=== PATIENT | female | born 1950 | race Caucasian/White ===

== ENCOUNTER 2018-01-23 15:00 | Outpatient (RCR) | payer MEDICARE, MEDICAID, SELFPAY ==
[2018-01-16 14:34] VITALS: BP 139/94; PULSE 91; RESP 22; TEMP 36.9; BMI 51.2
[2018-01-16 19:31] LABS: Hematocrit 36.4 % (37-47); Hemoglobin 11.3 g/dl (12.0-15.0); Mean Corpuscular Hgb 27.8 pg (27.0-32.0); Mean Corpuscular Volume 89.4 fL (81-99); Mean Platelet Vol. 9.4 fl (6.2-12.0); Platelet Count 215 K/mm3 (150-450); RBC Distribution Width CV 17.5 % (11.6-14.6); RBC Distribution Width SD 56.9 fl (35.1-43.9); Red Blood Count 4.07 M/mm3 (4.2-5.4); White Blood Count 7.7 K/mm3 (4.4-11.0)
[2018-01-16 19:35] LABS: Scan Indicated on CBC? Y/N NO
[2018-01-16 19:44] LABS: ALB/GLOB Ratio 0.7 RATIO (0.9-2.4); AST(SGOT) 8 U/L (15-37); Alanine Aminotransfer ALT/SGPT 14 U/L (13-56); Albumin, Serum 3.3 g/dL (3.2-5.0); Alkaline Phosphatase 98 U/L (45-117); Anion Gap 6 (5-15); BUN 18 mg/dL (7-18); BUN/Creat Ratio 17.1 RATIO (10-20); Chloride 103 mmol/L (98-107); Creatinine, Serum 1.05 mg/dL (0.55-1.02); EST Glomerular Filtration Rate 55 mL/min (>60); Est Glom Filt Rate - Afr Amer 67 mL/min (>60); Estimated Creatinine Clearance 39.43 ml/min; Globulin 4.7 g/dL (2.2-4.2); Glucose 116 mg/dL (74-106); Prealbumin 18.7 mg/dL (20.0-40.0); Sodium Level 139 mmol/L (136-145)
--- NOTE | 2018-01-16 20:40 | PCM.WC.HP ---
(1) Nonhealing ulcer of right lower extremity with fat layer exposed Status: Acute Code(s): L97.912 - Non-pressure chronic ulcer of unspecified part of right lower leg with fat layer exposed (2) Bilateral lower extremity edema Status: Acute Code(s): R60.0 - Localized edema (3) Decreased pedal pulses Status: Acute Code(s): R09.89 - Other specified symptoms and signs involving the circulatory and respiratory systems (4) Chronic stasis dermatitis of left lower extremity Status: Acute Code(s): I87.2 - Venous insufficiency (chronic) (peripheral) History of Present Illness Date of Service: 01/16/18 Chief Complaint: Nonhealing ulcer right lower extremity History of Wound: This is a 68-year-old white female with a past medical history as listed above who presents to the wound healing center today with complaints of nonhealing ulcer on the right lower extremity. She is unsure when exactly this began, however she states that she has had ulcers on her bilateral lower extremities on and off for the past 6 years and then they heal. She states that she has dry scaly and reddened skin bilaterally to the lower extremities which causes her to itch all the time and scratch open, she has had ulcerations which in the past she states has become infected. However she denies any signs of infection at this time and denies any fever, purulent exudate, or increasing pain. She does state that she has lymphedema pumps and compression stockings, however she refuses to utilize them at this time due to not thinking that are necessary. She currently resides at [facility]. She does state that she has able to ambulate, however she spends most of her time in a wheelchair. Her past medical history is significant for that of type 2 diabetes mellitus, neuropathy, PVD, rheumatoid arthritis, asthma, GERD, and depression. Past Medical History Past Medical History: Chronic Problems Renal lithiasis (Chronic) Right Peripheral neuropathy (Chronic) Obstructive sleep apnea (Chronic) Increased BMI (Chronic) Chronic back pain (Chronic) HLD (hyperlipidemia) (Chronic) Benign hypertension (Chronic) Surgical History: noncontributory, hysterectomy Allergies/Adverse Reactions: Allergies aspirin Allergy (Verified 01/16/18 15:16) Hives Penicillins Allergy (Verified 01/16/18 15:16) Hives Sulfa (Sulfonamide Antibiotics) Allergy (Verified 01/16/18 15:16) Hives Home Medications: Ambulatory Orders Medication Instructions Recorded Albuterol IH (ProAir) [Proair Hfa] 1 - 2 puff INHALATION Q4H PRN PRN 02/16/14 Fluticasone 0.05% [Flonase Nasal 2 spray NASAL DAILY 02/16/14 [place]] Fluticasone/Salmeterol [Advair 1 puff INHALATION BID 02/16/14 250/50 Mcg Diskus] Insulin Glargine [Lantus SoloStar 20 units SC QHS 02/16/14 Pen] Morphine [Morphine IR] 60 mg PO Q4H PRN PRN 02/16/14 Multivitamin with Iron 1 each PO DAILY 02/16/14 [Multivitamins with Iron] Oxybutynin [Ditropan] 5 mg PO DAILY 02/16/14 Oxycodone HCl/Acetaminophen 1 tablet PO Q4H PRN PRN 02/16/14 [Percocet 5/325] Potassium Chloride [K-Dur] 10 meq PO BID 02/16/14 Pregabalin [Lyrica] 100 mg PO TID 02/16/14 Ropinirole HCl [Requip] 0.25 mg PO QHS 02/16/14 Vit D3/Folic Acid/B2/B6/B12 1 each PO DAILY 02/16/14 [Folgard Tablet] - Family History Maternal No pertinent history Smoking Status: Never smoker Review of Systems Constitutional: Denies: Chills, Fever, Weight Change Eyes: Denies: Pain, Vision Change HEENT: Denies: Difficulty Hearing, Difficulty Swallowing, Sinus Congestion Cardiovascular: Denies: Chest Pain, Palpitations Respiratory: Denies: Cough, Shortness of Breath Gastrointestinal: Denies: Diarrhea, Nausea, Vomiting Genitourinary: Denies: Dysuria, Hematuria Skin: Reports: Wounds - See HPI Endocrine: Denies: Heat/ Cold Intolerance, Polydipsia, Polyuria Hematologic/ Lymphatic: Denies: Easy Bruising, Easy Bleeding - Physical Exam Vital Signs Temp Pulse Resp BP 98.4 F 91 22 H 139/94 H 01/16/18 14:34 01/16/18 14:34 01/16/18 14:34 01/16/18 14:34 General: Alert, Oriented x3, Cooperative, No apparent distress HEENT: PERRLA, EOMI Neck: Supple, No JVD, Negative Carotid Bruits Lungs: Clear to auscultation, Normal air movement Cardiovascular: Regular rate, Regular Rhythm, Normal S1, Normal S2 Abdomen: Bowel Sounds Present, Soft, Non Tender Extremities: Capillary Refill Less than 3 Seconds, Diminished Peripheral Pulses, Edema - Generalized bilateral lower extremity edema Skin: Ulcer/ Wound - Cluster ulcer with large amount of slough present right lower extremity, no surrounding erythema or signs of acute infection at this time. Both bilateral lower extremities have thickened dry scaly and slightly erythematous patches of skin present. Neurological: Neuro grossly intact Psych/Mental Status: Normal Affect, Alert and oriented to time, place, person, mood and affect Debridement Note Post-Debridement Measurements/Treatment WC - Nurse 2 - General Ulcer CM Notes Start: 01/16/18 14:25 Freq: Status: Active Protocol: Activity Type Activity Date Activity User E-Sign Co-Sign Detail Recorded Client Recorded Date Recorded By Document 01/16/18 15:50 [id number] 01/16/18 16:06 01/16/18 15:50 Wound Center Nurse 2 #2 R Lat Cluster -Time 15:56 -Correct Patient Yes -Correct Side, Site, Position Yes -Correct Procedure Yes -Procedure Performed Yes -Type of Procedure Debridement -Clinical Debridement Subcutaneous -Post Debridement Size (cm) - Length 5.1 -Post Debridement Size (cm) - Width 2.2 -Post Debridement Size (cm) - Depth 0.1 -Total Square Cm 11.22 -Wound/Ulcer Outcome Not Healed -Ulcer Cleansing Rinsed/ Irrigated with Saline -Foul Odor after Cleansing No -Bioengineered Tissue No -Bleeding Controlled with Pressure -Treatment Response Procedure Tolerated Well Pain Scale: 0-10 Numeric Is Patient Pain Free? Yes Wound debrided: Right lower extremity cluster ulcer Laterality: Right Type of Debridement: Excisional debridement Anesthesia Used: 5% Lidocaine Gel Depth: in the subcutaneous layer Percentage of wound debrided: 100 Instrument Used: 5mm curette Tissue Removed: Slough and devitalized tissue Severity: Fat Layer Exposed Amount of bleeding with debridement: Mild Bleeding Controlled with: Pressure Patient tolerated procedure well Assessment/Plan Assessment: See above diagnoses Plan: The patient was seen and examined at the wound center today and was updated on the plan of care. A subcutaneous debridement was performed today. The patient tolerated the procedure well. The patients wound care will consist of: Applying Aquacel silver covering with gauze daily. Double Tubigrip's for compression ordered. Instructed on the importance of using her lymphedema pumps that she has. A referral to dermatology was made as well regarding her chronic skin changes to her lower extremities. Wound cultures were collected. Baseline bloodwork ordered. Vascular studies ordered. Patient educated on the importance of diet on wound healing and instructed to increase protein and vitamin C intake. Patient educated on the importance of keeping her diabetes under control. Did discuss signs and symptoms of cellulitis that require urgent medical attention. Patient verbalized understanding. Patient verbalized understanding. Patient will follow up at wound healing center in one week or sooner if needed. This note was generated with [employer] dictation software. It may contain incorrect words, spelling, and punctuation that were not noted in checking the note before signing. Code Visit Office Visits / Consults: [id number] OV L4 New [id number]: [id number] Rachel subq tissue 20 sq cm/<
--- NOTE | 2018-01-21 09:51 | HP.PCM_ITS ---
(1) Nonhealing ulcer of right lower extremity with fat layer exposed Status: Acute Code(s): L97.912 - Non-pressure chronic ulcer of unspecified part of right lower leg with fat layer exposed (2) Bilateral lower extremity edema Status: Acute Code(s): R60.0 - Localized edema (3) Decreased pedal pulses Status: Acute Code(s): R09.89 - Other specified symptoms and signs involving the circulatory and respiratory systems (4) Chronic stasis dermatitis of left lower extremity Status: Acute Code(s): I87.2 - Venous insufficiency (chronic) (peripheral) History of Present Illness Date of Service: 01/16/18 Chief Complaint: Nonhealing ulcer right lower extremity History of Wound: This is a 68-year-old white female with a past medical history as listed above who presents to the wound healing center today with complaints of nonhealing ulcer on the right lower extremity. She is unsure when exactly this began, however she states that she has had ulcers on her bilateral lower extremities on and off for the past 6 years and then they heal. She states that she has dry scaly and reddened skin bilaterally to the lower extremities which causes her to itch all the time and scratch open, she has had ulcerations which in the past she states has become infected. However she denies any signs of infection at this time and denies any fever, purulent exudate, or increasing pain. She does state that she has lymphedema pumps and compression stockings, however she refuses to utilize them at this time due to not thinking that are necessary. She currently resides at [facility]. She does state that she has able to ambulate, however she spends most of her time in a wheelchair. Her past medical history is significant for that of type 2 diabetes mellitus, neuropathy, PVD, rheumatoid arthritis, asthma, GERD , and depression. Past Medical History Past Medical History: Chronic Problems Renal lithiasis (Chronic) Right Peripheral neuropathy (Chronic) Obstructive sleep apnea (Chronic) Increased BMI (Chronic) Chronic back pain (Chronic) HLD (hyperlipidemia) (Chronic) Benign hypertension (Chronic) Surgical History: noncontributory, hysterectomy Allergies/Adverse Reactions: Allergies aspirin Allergy (Verified 01/16/18 15:16) Hives Penicillins Allergy (Verified 01/16/18 15:16) Hives Sulfa (Sulfonamide Antibiotics) Allergy (Verified 01/16/18 15:16) Hives Home Medications: Ambulatory Orders Medication Instructions Recorded Albuterol IH (ProAir) [Proair Hfa] 1 - 2 puff INHALATION Q4H PRN PRN 02/16/14 Fluticasone 0.05% [Flonase Nasal 2 spray NASAL DAILY 02/16/14 [place]] Fluticasone/Salmeterol [Advair 1 puff INHALATION BID 02/16/14 250/50 Mcg Diskus] Insulin Glargine [Lantus SoloStar 20 units SC QHS 02/16/14 [place]] Morphine [Morphine IR] 60 mg PO Q4H PRN PRN 02/16/14 Multivitamin with Iron 1 each PO DAILY 02/16/14 [Multivitamins with Iron] Oxybutynin [Ditropan] 5 mg PO DAILY 02/16/14 Oxycodone HCl/Acetaminophen 1 tablet PO Q4H PRN PRN 02/16/14 [Percocet 5/325] Potassium Chloride [K-Dur] 10 meq PO BID 02/16/14 Pregabalin [Lyrica] 100 mg PO TID 02/16/14 Ropinirole HCl [Requip] 0.25 mg PO QHS 02/16/14 Vit D3/Folic Acid/B2/B6/B12 1 each PO DAILY 02/16/14 [Folgard Tablet] - Family History Maternal No pertinent history Smoking Status: Never smoker Review of Systems Constitutional: Denies: Chills, Fever, Weight Change Eyes: Denies: Pain, Vision Change HEENT: Denies: Difficulty Hearing, Difficulty Swallowing, Sinus Congestion Cardiovascular: Denies: Chest Pain, Palpitations Respiratory: Denies: Cough, Shortness of Breath Gastrointestinal: Denies: Diarrhea, Nausea, Vomiting Genitourinary: Denies: Dysuria, Hematuria Skin: Reports: Wounds - See HPI Endocrine: Denies: Heat/ Cold Intolerance, Polydipsia, Polyuria Hematologic/ Lymphatic: Denies: Easy Bruising, Easy Bleeding - Physical Exam Vital Signs Temp Pulse Resp BP 98.4 F 91 22 H 139/94 H 01/16/18 14:34 01/16/18 14:34 01/16/18 14:34 01/16/18 14:34 General: Alert, Oriented x3, Cooperative, No apparent distress HEENT: PERRLA, EOMI Neck: Supple, No JVD, Negative Carotid Bruits Lungs: Clear to auscultation, Normal air movement Cardiovascular: Regular rate, Regular Rhythm, Normal S1, Normal S2 Abdomen: Bowel Sounds Present, Soft, Non Tender Extremities: Capillary Refill Less than 3 Seconds, Diminished Peripheral Pulses , Edema - Generalized bilateral lower extremity edema Skin: Ulcer/ Wound - Cluster ulcer with large amount of slough present right lower extremity, no surrounding erythema or signs of acute infection at this time. Both bilateral lower extremities have thickened dry scaly and slightly erythematous patches of skin present. Neurological: Neuro grossly intact Psych/Mental Status: Normal Affect, Alert and oriented to time, place, person, mood and affect Debridement Note Post-Debridement Measurements/Treatment WC - Nurse 2 - General Ulcer CM Notes Start: 01/16/18 14:25 Freq: Status: Active Protocol: Activity Type Activity Date Activity User E-Sign Co-Sign Detail Recorded Client Recorded Date Recorded By Document 01/16/18 15:50 [id number] 01/16/18 16:06 01/16/18 15:50 Wound Center Nurse 2 #2 R Lat Cluster -Time 15:56 -Correct Patient Yes -Correct Side, Site, Position Yes -Correct Procedure Yes -Procedure Performed Yes -Type of Procedure Debridement -Clinical Debridement Subcutaneous -Post Debridement Size (cm) - Length 5.1 -Post Debridement Size (cm) - Width 2.2 -Post Debridement Size (cm) - Depth 0.1 -Total Square Cm 11.22 -Wound/Ulcer Outcome Not Healed -Ulcer Cleansing Rinsed/ Irrigated with Saline -Foul Odor after Cleansing No -Bioengineered Tissue No -Bleeding Controlled with Pressure -Treatment Response Procedure Tolerated Well Pain Scale: 0-10 Numeric Is Patient Pain Free? Yes Wound debrided: Right lower extremity cluster ulcer Laterality: Right Type of Debridement: Excisional debridement Anesthesia Used: 5% Lidocaine Gel Depth: in the subcutaneous layer Percentage of wound debrided: 100 Instrument Used: 5mm curette Tissue Removed: Slough and devitalized tissue Severity: Fat Layer Exposed Amount of bleeding with debridement: Mild Bleeding Controlled with: Pressure Patient tolerated procedure well Assessment/Plan Assessment: See above diagnoses Plan: The patient was seen and examined at the wound center today and was updated on the plan of care. A subcutaneous debridement was performed today. The patient tolerated the procedure well. The patients wound care will consist of: Applying Aquacel silver covering with gauze daily. Double Tubigrip's for compression ordered. Instructed on the importance of using her lymphedema pumps that she has. A referral to dermatology was made as well regarding her chronic skin changes to her lower extremities. Wound cultures were collected. Baseline bloodwork ordered. Vascular studies ordered. Patient educated on the importance of diet on wound healing and instructed to increase protein and vitamin C intake. Patient educated on the importance of keeping her diabetes under control. Did discuss signs and symptoms of cellulitis that require urgent medical attention. Patient verbalized understanding. Patient verbalized understanding. Patient will follow up at wound healing center in one week or sooner if needed. This note was generated with [employer] dictation software. It may contain incorrect words, spelling, and punctuation that were not noted in checking the note before signing. Code Visit Office Visits / Consults: [id number] OV L4 New [id number]: [id number] Rachel subq tissue 20 sq cm/<
== END 2018-01-25 23:59 ==
LOC: WC 15:00
PROVIDERS: Family Provider Family Medicine; PCP Family Medicine; Visit Provider Nurse Practitioner Family
DX: E11.622 Type 2 diabetes mellitus with other skin ulcer (principal); I87.2 Venous insufficiency (chronic) (peripheral); E11.42 Type 2 diabetes mellitus with diabetic polyneuropathy; L97.812 Non-pressure chronic ulcer of other part of right lower leg with fat layer exposed; R60.0 Localized edema; R09.89 Other specified symptoms and signs involving the circulatory and respiratory systems; M06.9 Rheumatoid arthritis, unspecified; K21.9 Gastro-esophageal reflux disease without esophagitis
CPT/HCPCS: 11042; 80053; 83036; 84134; 85027; 87070; 87075; 87186; 87205; 99214; G0463

== ENCOUNTER 2018-02-20 14:45 | Outpatient (RCR) | payer MEDICARE, MEDICAID, SELFPAY ==
[2018-01-26 01:15] VITALS: BP 139/94; PULSE 91; RESP 22; TEMP 36.9
--- NOTE | 2018-01-30 13:10 | VDLE_ITS ---
Reason For Study: Edema/ulcers RIGHT LEFT CFV is compressible, spontaneous, phasic, CFV is compressible, spontaneous, phasic, competent and demonstrates normal competent, and demonstrates normal augmentation. augmentation. FV is compressible, spontaneous, phasic, FV is compressible, spontaneous, phasic, competent and demonstrates normal competent and demonstrates normal augmentation. augmentation. POP V is compressible, spontaneous, phasic, POP V is compressible, spontaneous, phasic, competent and demonstrates normal competent and demonstrates normal augmentation. augmentation. T/P Trunk is compressible. T/P Trunk is compressible. PTV is compressible. PTV is compressible. SFJ is competent SFJ is INCOMPETENT GSV is competent GSV is competent SSV is competent. SSV is competent. Procedure Exam performed in department. Technically difficult due to body habitus. Phil vein not visualized. Calf veins not visualized mid/distal LLE. A preliminary report was called and/or faxed to [facility]. Interpretation Summary Deep veins of the lower extremities are bilaterally patent and compressible segmentally. There is no evidence of deep vein thrombosis on either side. Valvular competence appears intact within the proximal deep venous systems bilaterally. The greater saphenous veins appear bilaterally patent and compressible segmentally. The right sapheno-femoral junction is competent . The left sapheno- femoral junction is incompetent . Valvular competence appears to be intact segmentally within the greater saphenous veins bilaterally. Small saphenous veins are patent and competent bilaterally. The peroneal veins were not visualized on either side, and the posterior tibial veins were not well -visualized on either side. Ordering Physician: Saqib Thomas Referring Physician: Saqib Thomas Performed By: Nikky Arrieta RVT
--- NOTE | 2018-02-01 16:17 | LEAS ---
Arterial Study - Arterial Study Arterial Study: This is a 68-year-old female with a history of diabetes mellitus, hyperlipidemia, hypertension, and peripheral arterial occlusive disease. The patient presents with chronic nonhealing wounds to the right lower extremity. She is brought to the noninvasive vascular laboratory at this time for the purpose of bilateral noninvasive lower extremity arterial assessment. Doppler signal assessment was used to evaluate the pulses at ankle level bilaterally. The posterior tibial and dorsalis pedis pulses were triphasic bilaterally. Segmental limb pressures were obtained bilaterally. The right ankle pressure, as determined by posterior tibial pulse, was measured at 150 mmHg. The right ankle pressure, as determined by dorsalis pedis pulse, was measured at 149 mmHg. The right digital pressure was measured at 121 mmHg. The left ankle pressure, as determined by posterior tibial pulse, was measured at 154 mmHg. The left ankle pressure, as determined by dorsalis pedis pulse, was measured at 146 mmHg. The left digital pressure was measured at 130 mmHg. Pulse-volume recordings were obtained bilaterally and segmentally. Waveform amplitudes appeared to be satisfacory at all levels bilaterally, including low thigh, calf, ankle, and digital levels. Resting ankle-brachial indices were calculated bilaterally. The resting right ankle-brachial index was calculated to be 1.06. The resting left ankle-brachial index was calculated to be 1.08. Digital-brachial indices were calculated bilaterally. The right digital-brachial index was calculated to be 0.85. The left digital-brachial index was calculated to be 0.92. Impression: Based upon the findings of this resting noninvasive lower extremity arterial study, there is no evidence of significant atherosclerotic peripheral arterial occlusive disease in the lower extremities bilaterally. Triphasic waveforms are noted at ankle level bilaterally. Resting ankle-brachial indices were bilaterally normal. Digital-brachial indices were also normal bilaterally. In summary, this represents a normal resting noninvasive lower extremity arterial study bilaterally.
--- NOTE | 2018-02-01 16:24 | LEAS_ITS ---
Arterial Study - Arterial Study Arterial Study: This is a 68-year-old female with a history of diabetes mellitus, hyperlipidemia , hypertension, and peripheral arterial occlusive disease. The patient presents with chronic nonhealing wounds to the right lower extremity. She is brought to the noninvasive vascular laboratory at this time for the purpose of bilateral noninvasive lower extremity arterial assessment. Doppler signal assessment was used to evaluate the pulses at ankle level bilaterally. The posterior tibial and dorsalis pedis pulses were triphasic bilaterally. Segmental limb pressures were obtained bilaterally. The right ankle pressure, as determined by posterior tibial pulse, was measured at 150 mmHg. The right ankle pressure, as determined by dorsalis pedis pulse, was measured at 149 mmHg. The right digital pressure was measured at 121 mmHg. The left ankle pressure, as determined by posterior tibial pulse, was measured at 154 mmHg. The left ankle pressure, as determined by dorsalis pedis pulse, was measured at 146 mmHg. The left digital pressure was measured at 130 mmHg. Pulse-volume recordings were obtained bilaterally and segmentally. Waveform amplitudes appeared to be satisfacory at all levels bilaterally, including low thigh, calf, ankle, and digital levels. Resting ankle-brachial indices were calculated bilaterally. The resting right ankle-brachial index was calculated to be 1.06. The resting left ankle- brachial index was calculated to be 1.08. Digital-brachial indices were calculated bilaterally. The right digital- brachial index was calculated to be 0.85. The left digital-brachial index was calculated to be 0.92. Impression: Based upon the findings of this resting noninvasive lower extremity arterial study, there is no evidence of significant atherosclerotic peripheral arterial occlusive disease in the lower extremities bilaterally. Triphasic waveforms are noted at ankle level bilaterally. Resting ankle-brachial indices were bilaterally normal. Digital-brachial indices were also normal bilaterally. In summary, this represents a normal resting noninvasive lower extremity arterial study bilaterally.
[2018-02-13 14:50] VITALS: BP 117/50; PULSE 81; RESP 18; TEMP 36.4
--- NOTE | 2018-02-13 17:22 | PCM.WC.PN ---
(1) Venous insufficiency Status: Acute Current Visit: Yes Code(s): I87.2 - Venous insufficiency (chronic) (peripheral) (2) Chronic acquired lymphedema Status: Acute Current Visit: Yes Code(s): I89.0 - Lymphedema, not elsewhere classified (3) Bilateral lower extremity edema Status: Acute Current Visit: Yes Code(s): R60.0 - Localized edema (4) Chronic stasis dermatitis of left lower extremity Status: Acute Current Visit: Yes Code(s): I87.2 - Venous insufficiency (chronic) (peripheral) (5) Nonhealing ulcer of right lower extremity with fat layer exposed Status: Acute Current Visit: Yes Code(s): L97.912 - Non-pressure chronic ulcer of unspecified part of right lower leg with fat layer exposed Type of Wound Date of Service: 02/13/18 Chief Complaint: Nonhealing ulcer right lower extremity History of Wound: This is a 68-year-old white female with a past medical history as listed above who presents to the wound healing center today with complaints of nonhealing ulcer on the right lower extremity. She is unsure when exactly this began, however she states that she has had ulcers on her bilateral lower extremities on and off for the past 6 years and then they heal. She states that she has dry scaly and reddened skin bilaterally to the lower extremities which causes her to itch all the time and scratch open, she has had ulcerations which in the past she states has become infected. However she denies any signs of infection at this time and denies any fever, purulent exudate, or increasing pain. She does state that she has lymphedema pumps and compression stockings, however she refuses to utilize them at this time due to not thinking that are necessary. She currently resides at [facility]. She does state that she has able to ambulate, however she spends most of her time in a wheelchair. Her past medical history is significant for that of type 2 diabetes mellitus, neuropathy, PVD, rheumatoid arthritis, asthma, GERD, and depression. Progress of Wound: Patient has been noncompliant with her wound center appointments. Due to chronic itching that she is supposed to follow-up with both dermatology and her PCP for which she never did, there are now scattered excoriated areas on bilateral lower extremities, right lower extremity ulcer is stable without signs of infection at this time. - Physical Exam Vital Signs Temp Pulse Resp BP 97.6 F L 81 18 117/50 L 02/13/18 14:50 02/13/18 14:50 02/13/18 14:50 02/13/18 14:50 General: Alert, Oriented x3, Cooperative, No apparent distress HEENT: Atraumatic Lungs: Clear to auscultation Cardiovascular: Regular rate Extremities: Edema - 1+ bilateral lower extremity edema, Peripheral Pulses Normal Skin: Ulcer/ Wound - Right lower extremity lateral ulcer with adherent slough, - - Bilateral lower extremities with hyperkeratotic areas of dermatitis, left worse than right, multiple areas of excoriation with visible scratch whitfield present bilateral lower extremities Wound Measurements and Assessment WC - Nurse 1 - General Ulcer Measurement Start: 02/07/18 12:24 Freq: Status: Active Protocol: Activity Type Activity Date Activity User E-Sign Co-Sign Detail Recorded Client Recorded Date Recorded By Document 02/13/18 14:50 DL [id number] 02/13/18 14:57 DL 02/13/18 14:50 Wound Center Nurse 1 [Ulcer Assessment] #2 R Lat Cluster -Current Size (cm) - Length 0.5 -Current Size (cm) - Width 0.5 -Current Size (cm) - Depth 0.1 -Total Square Cm 0.25 -Photo Taken No -Exudate Amt None Present (0 %) -Exudate Type Serosanguineous -Wound Margin Flat & Intact -Granulation Amt Small (1-33%) -Granulation Quality [place] -Necrosis Amt None Present (0 %) -Structure Exposed N/A -Texture (Beatris-wound Skin Appearance) Scarring -Moisture (Beatris-wound Skin Appearance Dry/Scaly ) -Color (Beatris-wound Skin Appearance) Hemosiderin Staining -Temperature (Beatris-wound Skin No Abnormality Appearance) (Pt Warm) -Tenderness on Palpation (Beatris-wound No Skin Appearance) -Ulcer Cleansing Rinsed/ Irrigated with Saline -Foul Odor after Cleansing No -Anesthetic Used 4% Lidocaine Solution [Edema Assessment] -Right Calf (cm) 46.3 -Right Ankle (cm) 24 -Left Calf (cm) 50.5 -Left Ankle (cm) 25.5 WC - Nurse 2 - General Ulcer CM Notes Start: 02/07/18 12:24 Freq: Status: Active Protocol: Activity Type Activity Date Activity User E-Sign Co-Sign Detail Recorded Client Recorded Date Recorded By Document 02/13/18 15:30 [id number] 02/13/18 15:32 02/13/18 15:30 Wound Center Nurse 2 [Procedure/Treatment] #2 R Lat Cluster -Time 15:31 -Correct Patient Yes -Correct Side, Site, Position Yes -Correct Procedure Yes -Procedure Performed Yes -Type of Procedure Debridement -Clinical Debridement Subcutaneous -Post Debridement Size (cm) - Length 1.9 -Post Debridement Size (cm) - Width 1.3 -Post Debridement Size (cm) - Depth 0.1 -Total Square Cm 2.47 -Wound/Ulcer Outcome Not Healed -Ulcer Cleansing Rinsed/ Irrigated with Saline -Foul Odor after Cleansing No -Bioengineered Tissue No -Topical Lidocaine (%) 4 -Lidocaine (ml) 10 -Bleeding Controlled with NA -Treatment Response Procedure Tolerated Well [See Physician Procedure note for Specifics] Pain Scale: 0-10 Numeric [Pain] -Is Patient Pain Free? Yes Neurological: Neuro grossly intact Psych/Mental Status: Normal Affect, Appropriate, Alert and oriented to time, place, person, mood and affect Debridement Note Post-Debridement Measurements/Treatment WC - Nurse 2 - General Ulcer CM Notes Start: 02/07/18 12:24 Freq: Status: Active Protocol: Activity Type Activity Date Activity User E-Sign Co-Sign Detail Recorded Client Recorded Date Recorded By Document 02/13/18 15:30 [id number] 02/13/18 15:32 02/13/18 15:30 Wound Center Nurse 2 #2 R Lat Cluster -Time 15:31 -Correct Patient Yes -Correct Side, Site, Position Yes -Correct Procedure Yes -Procedure Performed Yes -Type of Procedure Debridement -Clinical Debridement Subcutaneous -Post Debridement Size (cm) - Length 1.9 -Post Debridement Size (cm) - Width 1.3 -Post Debridement Size (cm) - Depth 0.1 -Total Square Cm 2.47 -Wound/Ulcer Outcome Not Healed -Ulcer Cleansing Rinsed/ Irrigated with Saline -Foul Odor after Cleansing No -Bioengineered Tissue No -Topical Lidocaine (%) 4 -Lidocaine (ml) 10 -Bleeding Controlled with NA -Treatment Response Procedure Tolerated Well Pain Scale: 0-10 Numeric Is Patient Pain Free? Yes Wound debrided: Right lower extremity ulcer Laterality: Right Type of Debridement: Excisional debridement Anesthesia Used: 5% Lidocaine Gel Depth: Down to and including healthy tissue, in the subcutaneous layer Percentage of wound debrided: 100 Instrument Used: 5mm curette Tissue Removed: Slough and devitalized tissue Severity: Fat Layer Exposed Amount of bleeding with debridement: Mild Bleeding Controlled with: Pressure Patient tolerated procedure well Assessment/Plan Active Problems Nonhealing ulcer of right lower extremity with fat layer exposed (Acute) Bilateral lower extremity edema (Acute) Chronic stasis dermatitis of left lower extremity (Acute) Venous insufficiency (Acute) Chronic acquired lymphedema (Acute) Assessment: See above diagnoses Plan: The patient was seen and examined at the wound center today and was updated on the plan of care. A subcutaneous debridement was performed today. The patient tolerated the procedure well. The patients wound care will consist of: Applying bilateral Unna boots. Instructed on the importance of using her lymphedema pumps that she is noncompliant with. A referral to dermatology was made as well regarding her chronic skin changes to her lower extremities. And discuss following up with PCP for her chronic itching. Wound cultures were collected previously and demonstrated staph aureus, however patient never followed up and therefore was not treated appropriately with antibiotics, an antibiotic prescription was called in during this appointment of doxycycline 100 mg twice daily ?10 days. Baseline bloodwork ordered and A1c was 7 and prealbumin was low and encourage patient to increase her protein drinks. Vascular studies ordered and demonstrated venous insufficiency with right TINO of 1.08 and left TINO 1.06.. Patient educated on the importance of diet on wound healing and instructed to increase protein and vitamin C intake. Patient educated on the importance of keeping her diabetes under control. Did discuss signs and symptoms of cellulitis that require urgent medical attention. Patient verbalized understanding. Patient verbalized understanding. Patient will follow up at wound healing center in one week or sooner if needed. This note was generated with [employer] software. It may contain incorrect words, spelling, and punctuation that were not noted in checking the note before signing.
--- NOTE | 2018-02-13 17:31 | PN.PCM_ITS ---
(1) Venous insufficiency Status: Acute Current Visit: Yes Code(s): I87.2 - Venous insufficiency ( chronic) (peripheral) (2) Chronic acquired lymphedema Status: Acute Current Visit: Yes Code(s): I89.0 - Lymphedema, not elsewhere classified (3) Bilateral lower extremity edema Status: Acute Current Visit: Yes Code(s): R60.0 - Localized edema (4) Chronic stasis dermatitis of left lower extremity Status: Acute Current Visit: Yes Code(s): I87.2 - Venous insufficiency ( chronic) (peripheral) (5) Nonhealing ulcer of right lower extremity with fat layer exposed Status: Acute Current Visit: Yes Code(s): L97.912 - Non-pressure chronic ulcer of unspecified part of right lower leg with fat layer exposed Type of Wound Date of Service: 02/13/18 Chief Complaint: Nonhealing ulcer right lower extremity History of Wound: This is a 68-year-old white female with a past medical history as listed above who presents to the wound healing center today with complaints of nonhealing ulcer on the right lower extremity. She is unsure when exactly this began, however she states that she has had ulcers on her bilateral lower extremities on and off for the past 6 years and then they heal. She states that she has dry scaly and reddened skin bilaterally to the lower extremities which causes her to itch all the time and scratch open, she has had ulcerations which in the past she states has become infected. However she denies any signs of infection at this time and denies any fever, purulent exudate, or increasing pain. She does state that she has lymphedema pumps and compression stockings, however she refuses to utilize them at this time due to not thinking that are necessary. She currently resides at [facility]. She does state that she has able to ambulate, however she spends most of her time in a wheelchair. Her past medical history is significant for that of type 2 diabetes mellitus, neuropathy, PVD, rheumatoid arthritis, asthma, GERD , and depression. Progress of Wound: Patient has been noncompliant with her wound center appointments. Due to chronic itching that she is supposed to follow-up with both dermatology and her PCP for which she never did, there are now scattered excoriated areas on bilateral lower extremities, right lower extremity ulcer is stable without signs of infection at this time. - Physical Exam Vital Signs Temp Pulse Resp BP 97.6 F L 81 18 117/50 L 02/13/18 14:50 02/13/18 14:50 02/13/18 14:50 02/13/18 14:50 General: Alert, Oriented x3, Cooperative, No apparent distress HEENT: Atraumatic Lungs: Clear to auscultation Cardiovascular: Regular rate Extremities: Edema - 1+ bilateral lower extremity edema, Peripheral Pulses Normal Skin: Ulcer/ Wound - Right lower extremity lateral ulcer with adherent slough, - - Bilateral lower extremities with hyperkeratotic areas of dermatitis, left worse than right, multiple areas of excoriation with visible scratch whitfield present bilateral lower extremities Wound Measurements and Assessment WC - Nurse 1 - General Ulcer Measurement Start: 02/07/18 12:24 Freq: Status: Active Protocol: Activity Type Activity Date Activity User E-Sign Co-Sign Detail Recorded Client Recorded Date Recorded By Document 02/13/18 14:50 DL [id number] 02/13/18 14:57 DL 02/13/18 14:50 Wound Center Nurse 1 [Ulcer Assessment] #2 R Lat Cluster -Current Size (cm) - Length 0.5 -Current Size (cm) - Width 0.5 -Current Size (cm) - Depth 0.1 -Total Square Cm 0.25 -Photo Taken No -Exudate Amt None Present (0 %) -Exudate Type Serosanguineous -Wound Margin Flat & Intact -Granulation Amt Small (1-33%) -Granulation Quality [place] -Necrosis Amt None Present (0 %) -Structure Exposed N/A -Texture (Beatris-wound Skin Appearance) Scarring -Moisture (Beatris-wound Skin Appearance Dry/Scaly ) -Color (Beatris-wound Skin Appearance) Hemosiderin Staining -Temperature (Beatris-wound Skin No Abnormality Appearance) (Pt Warm) -Tenderness on Palpation (Beatris-wound No Skin Appearance) -Ulcer Cleansing Rinsed/ Irrigated with Saline -Foul Odor after Cleansing No -Anesthetic Used 4% Lidocaine Solution [Edema Assessment] -Right Calf (cm) 46.3 -Right Ankle (cm) 24 -Left Calf (cm) 50.5 -Left Ankle (cm) 25.5 WC - Nurse 2 - General Ulcer CM Notes Start: 02/07/18 12:24 Freq: Status: Active Protocol: Activity Type Activity Date Activity User E-Sign Co-Sign Detail Recorded Client Recorded Date Recorded By Document 02/13/18 15:30 [id number] 02/13/18 15:32 02/13/18 15:30 Wound Center Nurse 2 [Procedure/Treatment] #2 R Lat Cluster -Time 15:31 -Correct Patient Yes -Correct Side, Site, Position Yes -Correct Procedure Yes -Procedure Performed Yes -Type of Procedure Debridement -Clinical Debridement Subcutaneous -Post Debridement Size (cm) - Length 1.9 -Post Debridement Size (cm) - Width 1.3 -Post Debridement Size (cm) - Depth 0.1 -Total Square Cm 2.47 -Wound/Ulcer Outcome Not Healed -Ulcer Cleansing Rinsed/ Irrigated with Saline -Foul Odor after Cleansing No -Bioengineered Tissue No -Topical Lidocaine (%) 4 -Lidocaine (ml) 10 -Bleeding Controlled with NA -Treatment Response Procedure Tolerated Well [See Physician Procedure note for Specifics] Pain Scale: 0-10 Numeric [Pain] -Is Patient Pain Free? Yes Neurological: Neuro grossly intact Psych/Mental Status: Normal Affect, Appropriate, Alert and oriented to time, place, person, mood and affect Debridement Note Post-Debridement Measurements/Treatment WC - Nurse 2 - General Ulcer CM Notes Start: 02/07/18 12:24 Freq: Status: Active Protocol: Activity Type Activity Date Activity User E-Sign Co-Sign Detail Recorded Client Recorded Date Recorded By Document 02/13/18 15:30 [id number] 02/13/18 15:32 02/13/18 15:30 Wound Center Nurse 2 #2 R Lat Cluster -Time 15:31 -Correct Patient Yes -Correct Side, Site, Position Yes -Correct Procedure Yes -Procedure Performed Yes -Type of Procedure Debridement -Clinical Debridement Subcutaneous -Post Debridement Size (cm) - Length 1.9 -Post Debridement Size (cm) - Width 1.3 -Post Debridement Size (cm) - Depth 0.1 -Total Square Cm 2.47 -Wound/Ulcer Outcome Not Healed -Ulcer Cleansing Rinsed/ Irrigated with Saline -Foul Odor after Cleansing No -Bioengineered Tissue No -Topical Lidocaine (%) 4 -Lidocaine (ml) 10 -Bleeding Controlled with NA -Treatment Response Procedure Tolerated Well Pain Scale: 0-10 Numeric Is Patient Pain Free? Yes Wound debrided: Right lower extremity ulcer Laterality: Right Type of Debridement: Excisional debridement Anesthesia Used: 5% Lidocaine Gel Depth: Down to and including healthy tissue, in the subcutaneous layer Percentage of wound debrided: 100 Instrument Used: 5mm curette Tissue Removed: Slough and devitalized tissue Severity: Fat Layer Exposed Amount of bleeding with debridement: Mild Bleeding Controlled with: Pressure Patient tolerated procedure well Assessment/Plan Active Problems Nonhealing ulcer of right lower extremity with fat layer exposed (Acute) Bilateral lower extremity edema (Acute) Chronic stasis dermatitis of left lower extremity (Acute) Venous insufficiency (Acute) Chronic acquired lymphedema (Acute) Assessment: See above diagnoses Plan: The patient was seen and examined at the wound center today and was updated on the plan of care. A subcutaneous debridement was performed today. The patient tolerated the procedure well. The patients wound care will consist of: Applying bilateral Unna boots. Instructed on the importance of using her lymphedema pumps that she is noncompliant with. A referral to dermatology was made as well regarding her chronic skin changes to her lower extremities. And discuss following up with PCP for her chronic itching. Wound cultures were collected previously and demonstrated staph aureus, however patient never followed up and therefore was not treated appropriately with antibiotics, an antibiotic prescription was called in during this appointment of doxycycline 100 mg twice daily ?10 days. Baseline bloodwork ordered and A1c was 7 and prealbumin was low and encourage patient to increase her protein drinks. Vascular studies ordered and demonstrated venous insufficiency with right TINO of 1.08 and left TINO 1.06.. Patient educated on the importance of diet on wound healing and instructed to increase protein and vitamin C intake. Patient educated on the importance of keeping her diabetes under control. Did discuss signs and symptoms of cellulitis that require urgent medical attention. Patient verbalized understanding. Patient verbalized understanding. Patient will follow up at wound healing center in one week or sooner if needed. This note was generated with [employer] software. It may contain incorrect words, spelling, and punctuation that were not noted in checking the note before signing.
[2018-02-17 13:13] VITALS: BP 122/50; PULSE 78; RESP 16; TEMP 36.4
[2018-02-20 15:02] VITALS: BP 149/71; PULSE 79; RESP 22; TEMP 36.3
--- NOTE | 2018-02-25 09:45 | PCM.WC.PN ---
(1) Venous insufficiency Status: Acute Current Visit: Yes Code(s): I87.2 - Venous insufficiency (chronic) (peripheral) (2) Chronic acquired lymphedema Status: Acute Current Visit: Yes Code(s): I89.0 - Lymphedema, not elsewhere classified (3) Bilateral lower extremity edema Status: Acute Current Visit: Yes Code(s): R60.0 - Localized edema (4) Chronic stasis dermatitis of left lower extremity Status: Acute Current Visit: Yes Code(s): I87.2 - Venous insufficiency (chronic) (peripheral) (5) Nonhealing ulcer of right lower extremity with fat layer exposed Status: Acute Current Visit: Yes Code(s): L97.912 - Non-pressure chronic ulcer of unspecified part of right lower leg with fat layer exposed Type of Wound Date of Service: 02/20/18 Chief Complaint: Nonhealing ulcer right lower extremity History of Wound: This is a 68-year-old white female with a past medical history as listed above who presents to the wound healing center today with complaints of nonhealing ulcer on the right lower extremity. She is unsure when exactly this began, however she states that she has had ulcers on her bilateral lower extremities on and off for the past 6 years and then they heal. She states that she has dry scaly and reddened skin bilaterally to the lower extremities which causes her to itch all the time and scratch open, she has had ulcerations which in the past she states has become infected. However she denies any signs of infection at this time and denies any fever, purulent exudate, or increasing pain. She does state that she has lymphedema pumps and compression stockings, however she refuses to utilize them at this time due to not thinking that are necessary. She currently resides at [facility]. She does state that she has able to ambulate, however she spends most of her time in a wheelchair. Her past medical history is significant for that of type 2 diabetes mellitus, neuropathy, PVD, rheumatoid arthritis, asthma, GERD, and depression. Progress of Wound: Patient's multiple excoriations on her bilateral lower extremities have improved since the use of the Unna boots, her right lower extremity ulcer is now healed. There is no clinical swelling at this time. She was also treated with doxycycline and is tolerating the antibiotic well. Pending dermatology appointment. Rough patches of skin on the left lower extremity the Unna boots as well. Denies any signs of systemic infection at this time. The patient otherwise denies any fever, chills, nausea, vomiting, shortness of breath, chest pain or pressure, palpitations, orthopnea, lower extremity edema, syncope or presyncopal episodes. - Physical Exam Vital Signs Temp Pulse Resp BP 97.4 F L 79 22 H 149/71 H 02/20/18 15:02 02/20/18 15:02 02/20/18 15:02 02/20/18 15:02 General: Alert, Oriented x3, Cooperative, No apparent distress HEENT: Atraumatic Lungs: Clear to auscultation, Normal air movement Cardiovascular: Regular rate, Regular Rhythm Abdomen: Bowel Sounds Present, Obese Extremities: No edema, Peripheral Pulses Normal Skin: Excoriated - Multiple areas of excoriation bilateral lower extremities, improving compared to last week, no signs of infection, right lower extremity ulcer has healed as well Neurological: Neuro grossly intact Psych/Mental Status: Normal Affect, Appropriate, Alert and oriented to time, place, person, mood and affect Debridement Note Post-Debridement Measurements/Treatment WC - Nurse 2 - General Ulcer CM Notes Start: 02/07/18 12:24 Freq: Status: Active Protocol: Activity Type Activity Date Activity User E-Sign Co-Sign Detail Recorded Client Recorded Date Recorded By Document 02/13/18 15:30 [id number] 02/13/18 15:32 Document 02/20/18 15:41 [id number] 02/20/18 15:41 02/13/18 02/20/18 15:30 15:41 Wound Center Nurse 2 #2 R Lat Cluster -Time 15:31 -Correct Patient Yes -Correct Side, Site, Position Yes -Correct Procedure Yes -Procedure Performed Yes -Type of Procedure Debridement -Clinical Debridement Subcutaneous -Post Debridement Size (cm) - Length 1.9 -Post Debridement Size (cm) - Width 1.3 -Post Debridement Size (cm) - Depth 0.1 -Total Square Cm 2.47 -Wound/Ulcer Outcome Not Healed -Ulcer Cleansing Rinsed/ Irrigated with Saline -Foul Odor after Cleansing No -Bioengineered Tissue No -Topical Lidocaine (%) 4 -Lidocaine (ml) 10 -Bleeding Controlled with NA -Treatment Response Procedure Tolerated Well Pain Scale: 0-10 Numeric Is Patient Pain Free? Yes Yes No debridement was completed today Assessment/Plan Active Problems Nonhealing ulcer of right lower extremity with fat layer exposed (Acute) Bilateral lower extremity edema (Acute) Chronic stasis dermatitis of left lower extremity (Acute) Venous insufficiency (Acute) Chronic acquired lymphedema (Acute) Assessment: See above diagnoses Plan: The patient was seen and examined at the wound center today and was updated on the plan of care. A subcutaneous debridement was not performed today as there is no indication. The patients wound care will consist of: Applying bilateral Unna boots. Instructed on the importance of using her lymphedema pumps that she is noncompliant with at least 3 times per day after we are done with the Unna boots. A referral to dermatology was made as well regarding her chronic skin changes to her lower extremities. And discuss following up with PCP for her chronic itching. Wound cultures were collected previously and demonstrated staph aureus, however patient never followed up and therefore was not treated appropriately with antibiotics, an antibiotic prescription was called in during this appointment of doxycycline 100 mg twice daily ?10 days, patient is tolerating well. Baseline bloodwork ordered and A1c was 7 and prealbumin was low and encourage patient to increase her protein drinks. Vascular studies ordered and demonstrated venous insufficiency with right TINO of 1.08 and left TINO 1.06.. Patient educated on the importance of diet on wound healing and instructed to increase protein and vitamin C intake. Patient educated on the importance of keeping her diabetes under control. Did discuss signs and symptoms of cellulitis that require urgent medical attention. Patient verbalized understanding. Patient verbalized understanding. Patient will follow up at wound healing center in one week or sooner if needed and a nurse visit in 4 days to change Unna boots. This note was generated with [employer] dictation software. It may contain incorrect words, spelling, and punctuation that were not noted in checking the note before signing. Code Visit Office Visits / Consults: [id number] OV L3 Est
--- NOTE | 2018-02-25 09:50 | PN.PCM_ITS ---
(1) Venous insufficiency Status: Acute Current Visit: Yes Code(s): I87.2 - Venous insufficiency ( chronic) (peripheral) (2) Chronic acquired lymphedema Status: Acute Current Visit: Yes Code(s): I89.0 - Lymphedema, not elsewhere classified (3) Bilateral lower extremity edema Status: Acute Current Visit: Yes Code(s): R60.0 - Localized edema (4) Chronic stasis dermatitis of left lower extremity Status: Acute Current Visit: Yes Code(s): I87.2 - Venous insufficiency ( chronic) (peripheral) (5) Nonhealing ulcer of right lower extremity with fat layer exposed Status: Acute Current Visit: Yes Code(s): L97.912 - Non-pressure chronic ulcer of unspecified part of right lower leg with fat layer exposed Type of Wound Date of Service: 02/20/18 Chief Complaint: Nonhealing ulcer right lower extremity History of Wound: This is a 68-year-old white female with a past medical history as listed above who presents to the wound healing center today with complaints of nonhealing ulcer on the right lower extremity. She is unsure when exactly this began, however she states that she has had ulcers on her bilateral lower extremities on and off for the past 6 years and then they heal. She states that she has dry scaly and reddened skin bilaterally to the lower extremities which causes her to itch all the time and scratch open, she has had ulcerations which in the past she states has become infected. However she denies any signs of infection at this time and denies any fever, purulent exudate, or increasing pain. She does state that she has lymphedema pumps and compression stockings, however she refuses to utilize them at this time due to not thinking that are necessary. She currently resides at [facility]. She does state that she has able to ambulate, however she spends most of her time in a wheelchair. Her past medical history is significant for that of type 2 diabetes mellitus, neuropathy, PVD, rheumatoid arthritis, asthma, GERD , and depression. Progress of Wound: Patient's multiple excoriations on her bilateral lower extremities have improved since the use of the Unna boots, her right lower extremity ulcer is now healed. There is no clinical swelling at this time. She was also treated with doxycycline and is tolerating the antibiotic well. Pending dermatology appointment. Rough patches of skin on the left lower extremity the Unna boots as well. Denies any signs of systemic infection at this time. The patient otherwise denies any fever, chills, nausea, vomiting, shortness of breath, chest pain or pressure, palpitations, orthopnea, lower extremity edema, syncope or presyncopal episodes. - Physical Exam Vital Signs Temp Pulse Resp BP 97.4 F L 79 22 H 149/71 H 02/20/18 15:02 02/20/18 15:02 02/20/18 15:02 02/20/18 15:02 General: Alert, Oriented x3, Cooperative, No apparent distress HEENT: Atraumatic Lungs: Clear to auscultation, Normal air movement Cardiovascular: Regular rate, Regular Rhythm Abdomen: Bowel Sounds Present, Obese Extremities: No edema, Peripheral Pulses Normal Skin: Excoriated - Multiple areas of excoriation bilateral lower extremities, improving compared to last week, no signs of infection, right lower extremity ulcer has healed as well Neurological: Neuro grossly intact Psych/Mental Status: Normal Affect, Appropriate, Alert and oriented to time, place, person, mood and affect Debridement Note Post-Debridement Measurements/Treatment WC - Nurse 2 - General Ulcer CM Notes Start: 02/07/18 12:24 Freq: Status: Active Protocol: Activity Type Activity Date Activity User E-Sign Co-Sign Detail Recorded Client Recorded Date Recorded By Document 02/13/18 15:30 [id number] 02/13/18 15:32 Document 02/20/18 15:41 [id number] 02/20/18 15:41 02/13/18 02/20/18 15:30 15:41 Wound Center Nurse 2 #2 R Lat Cluster -Time 15:31 -Correct Patient Yes -Correct Side, Site, Position Yes -Correct Procedure Yes -Procedure Performed Yes -Type of Procedure Debridement -Clinical Debridement Subcutaneous -Post Debridement Size (cm) - Length 1.9 -Post Debridement Size (cm) - Width 1.3 -Post Debridement Size (cm) - Depth 0.1 -Total Square Cm 2.47 -Wound/Ulcer Outcome Not Healed -Ulcer Cleansing Rinsed/ Irrigated with Saline -Foul Odor after Cleansing No -Bioengineered Tissue No -Topical Lidocaine (%) 4 -Lidocaine (ml) 10 -Bleeding Controlled with NA -Treatment Response Procedure Tolerated Well Pain Scale: 0-10 Numeric Is Patient Pain Free? Yes Yes No debridement was completed today Assessment/Plan Active Problems Nonhealing ulcer of right lower extremity with fat layer exposed (Acute) Bilateral lower extremity edema (Acute) Chronic stasis dermatitis of left lower extremity (Acute) Venous insufficiency (Acute) Chronic acquired lymphedema (Acute) Assessment: See above diagnoses Plan: The patient was seen and examined at the wound center today and was updated on the plan of care. A subcutaneous debridement was not performed today as there is no indication. The patients wound care will consist of: Applying bilateral Unna boots. Instructed on the importance of using her lymphedema pumps that she is noncompliant with at least 3 times per day after we are done with the Unna boots. A referral to dermatology was made as well regarding her chronic skin changes to her lower extremities. And discuss following up with PCP for her chronic itching. Wound cultures were collected previously and demonstrated staph aureus, however patient never followed up and therefore was not treated appropriately with antibiotics, an antibiotic prescription was called in during this appointment of doxycycline 100 mg twice daily ?10 days, patient is tolerating well. Baseline bloodwork ordered and A1c was 7 and prealbumin was low and encourage patient to increase her protein drinks. Vascular studies ordered and demonstrated venous insufficiency with right TINO of 1.08 and left TINO 1.06.. Patient educated on the importance of diet on wound healing and instructed to increase protein and vitamin C intake. Patient educated on the importance of keeping her diabetes under control. Did discuss signs and symptoms of cellulitis that require urgent medical attention. Patient verbalized understanding. Patient verbalized understanding. Patient will follow up at wound healing center in one week or sooner if needed and a nurse visit in 4 days to change Unna boots. This note was generated with [employer] dictation software. It may contain incorrect words, spelling, and punctuation that were not noted in checking the note before signing. Code Visit Office Visits / Consults: [id number] OV L3 Est
== END 2018-02-25 23:59 ==
LOC: WC 14:45
PROVIDERS: Family Provider Family Medicine; PCP Family Medicine; Visit Provider Nurse Practitioner Family
DX: E11.622 Type 2 diabetes mellitus with other skin ulcer (principal); I87.2 Venous insufficiency (chronic) (peripheral); R60.0 Localized edema; I89.0 Lymphedema, not elsewhere classified; L97.812 Non-pressure chronic ulcer of other part of right lower leg with fat layer exposed; E11.40 Type 2 diabetes mellitus with diabetic neuropathy, unspecified; E11.51 Type 2 diabetes mellitus with diabetic peripheral angiopathy without gangrene; M06.9 Rheumatoid arthritis, unspecified; K21.9 Gastro-esophageal reflux disease without esophagitis; J45.909 Unspecified asthma, uncomplicated; Z91.19 Patient's noncompliance with other medical treatment and regimen
CPT/HCPCS: 11042; 29580; 93923; 93970; 99212; G0463

== ENCOUNTER 2018-02-27 13:57 | Outpatient (RCR) | payer MEDICARE, MEDICAID, SELFPAY ==
[2018-02-26 01:10] VITALS: BP 149/71; PULSE 79; RESP 22; TEMP 36.3
[2018-02-27 14:38] VITALS: BP 137/75; PULSE 80; RESP 18; TEMP 36.4
--- NOTE | 2018-02-27 16:04 | PCM.WC.PN ---
(1) Bilateral lower extremity edema Status: Acute Current Visit: Yes Code(s): R60.0 - Localized edema (2) Chronic acquired lymphedema Status: Acute Current Visit: Yes Code(s): I89.0 - Lymphedema, not elsewhere classified (3) Chronic stasis dermatitis of left lower extremity Status: Acute Current Visit: Yes Code(s): I87.2 - Venous insufficiency (chronic) (peripheral) (4) Nonhealing ulcer of right lower extremity with fat layer exposed Status: Acute Current Visit: Yes Code(s): L97.912 - Non-pressure chronic ulcer of unspecified part of right lower leg with fat layer exposed Type of Wound Date of Service: 02/27/18 Chief Complaint: Nonhealing ulcer right lower extremity History of Wound: This is a 68-year-old white female with a past medical history as listed above who presents to the wound healing center today with complaints of nonhealing ulcer on the right lower extremity. She is unsure when exactly this began, however she states that she has had ulcers on her bilateral lower extremities on and off for the past 6 years and then they heal. She states that she has dry scaly and reddened skin bilaterally to the lower extremities which causes her to itch all the time and scratch open, she has had ulcerations which in the past she states has become infected. However she denies any signs of infection at this time and denies any fever, purulent exudate, or increasing pain. She does state that she has lymphedema pumps and compression stockings, however she refuses to utilize them at this time due to not thinking that are necessary. She currently resides at [facility]. She does state that she has able to ambulate, however she spends most of her time in a wheelchair. Her past medical history is significant for that of type 2 diabetes mellitus, neuropathy, PVD, rheumatoid arthritis, asthma, GERD, and depression. Progress of Wound: Patient's multiple excoriations on her bilateral lower extremities have improved since the use of the Unna boots, her right lower extremity ulcer is healed. There is no clinical swelling at this time. She was also treated with doxycycline and tolerated the antibiotic well for staph. Pending dermatology appointment for Rough raised patches of skin on the left lower extremity. Denies any signs of systemic infection at this time. The patient otherwise denies any fever, chills, nausea, vomiting, shortness of breath, chest pain or pressure, palpitations, orthopnea, lower extremity edema, syncope or presyncopal episodes. - Physical Exam Vital Signs Temp Pulse Resp BP 97.6 F L 80 18 137/75 H 02/27/18 14:38 02/27/18 14:38 02/27/18 14:38 02/27/18 14:38 General: Alert, Oriented x3, Cooperative, No apparent distress HEENT: Atraumatic Lungs: Clear to auscultation, Normal air movement, No rhonchi, No wheeze, No rales Cardiovascular: Regular rate, Regular Rhythm Abdomen: Soft, Non Tender, Obese Extremities: No clubbing, No cyanosis, No edema, Capillary Refill Less than 3 Seconds Skin: No rashes, No breakdown, - - raised rough patches present LLE without signs of infection, visible scratch whitfield noted Wound Measurements and Assessment WC - Nurse 1 - General Ulcer Measurement Start: 02/27/18 14:28 Freq: Status: Active Protocol: Activity Type Activity Date Activity User E-Sign Co-Sign Detail Recorded Client Recorded Date Recorded By Document 02/27/18 14:38 DL [id number] 02/27/18 14:43 DL 02/27/18 14:38 Wound Center Nurse 1 [Edema Assessment] -Right Calf (cm) 45.2 -Right Ankle (cm) 23 -Left Calf (cm) 46.4 -Left Ankle (cm) 23.5 Neurological: Cranial nerves II-XII grossly intact, Neuro grossly intact Psych/Mental Status: Normal Affect, Appropriate, Alert and oriented to time, place, person, mood and affect Debridement Note No debridement was completed today Assessment/Plan Active Problems Nonhealing ulcer of right lower extremity with fat layer exposed (Acute) Bilateral lower extremity edema (Acute) Chronic stasis dermatitis of left lower extremity (Acute) Chronic acquired lymphedema (Acute) Assessment: See above diagnoses Plan: The patient was seen and examined at the wound center today and was updated on the plan of care. The patients wounds and lymphedema has resolved. Instructed on the importance of using her lymphedema pumps that she is noncompliant with at least 3 times per day. Instructed to use Eucerin to BLLE to reduce skin dryness. A referral to dermatology was made as well regarding her chronic skin changes to her lower extremities and is scheduled on 03/03/[address] barreto. Pt to discuss following up with PCP for her chronic itching. Vascular studies ordered and demonstrated venous insufficiency with right TINO of 1.08 and left TINO 1.06.. Patient educated on the importance of diet on wound healing and instructed to increase protein and vitamin C intake. Patient educated on the importance of keeping her diabetes under control. Did discuss signs and symptoms of cellulitis that require urgent medical attention. Patient verbalized understanding. Patient will be discharged from [facility] and f/u PRN.This note was generated with [employer] dictation software. It may contain incorrect words, spelling, and punctuation that were not noted in checking the note before signing. Code Visit Office Visits / Consults: [id number] OV L3 Est
--- NOTE | 2018-02-27 16:09 | PN.PCM_ITS ---
(1) Bilateral lower extremity edema Status: Acute Current Visit: Yes Code(s): R60.0 - Localized edema (2) Chronic acquired lymphedema Status: Acute Current Visit: Yes Code(s): I89.0 - Lymphedema, not elsewhere classified (3) Chronic stasis dermatitis of left lower extremity Status: Acute Current Visit: Yes Code(s): I87.2 - Venous insufficiency ( chronic) (peripheral) (4) Nonhealing ulcer of right lower extremity with fat layer exposed Status: Acute Current Visit: Yes Code(s): L97.912 - Non-pressure chronic ulcer of unspecified part of right lower leg with fat layer exposed Type of Wound Date of Service: 02/27/18 Chief Complaint: Nonhealing ulcer right lower extremity History of Wound: This is a 68-year-old white female with a past medical history as listed above who presents to the wound healing center today with complaints of nonhealing ulcer on the right lower extremity. She is unsure when exactly this began, however she states that she has had ulcers on her bilateral lower extremities on and off for the past 6 years and then they heal. She states that she has dry scaly and reddened skin bilaterally to the lower extremities which causes her to itch all the time and scratch open, she has had ulcerations which in the past she states has become infected. However she denies any signs of infection at this time and denies any fever, purulent exudate, or increasing pain. She does state that she has lymphedema pumps and compression stockings, however she refuses to utilize them at this time due to not thinking that are necessary. She currently resides at [facility]. She does state that she has able to ambulate, however she spends most of her time in a wheelchair. Her past medical history is significant for that of type 2 diabetes mellitus, neuropathy, PVD, rheumatoid arthritis, asthma, GERD , and depression. Progress of Wound: Patient's multiple excoriations on her bilateral lower extremities have improved since the use of the Unna boots, her right lower extremity ulcer is healed. There is no clinical swelling at this time. She was also treated with doxycycline and tolerated the antibiotic well for staph. Pending dermatology appointment for Rough raised patches of skin on the left lower extremity. Denies any signs of systemic infection at this time. The patient otherwise denies any fever, chills, nausea, vomiting, shortness of breath, chest pain or pressure, palpitations, orthopnea, lower extremity edema, syncope or presyncopal episodes. - Physical Exam Vital Signs Temp Pulse Resp BP 97.6 F L 80 18 137/75 H 02/27/18 14:38 02/27/18 14:38 02/27/18 14:38 02/27/18 14:38 General: Alert, Oriented x3, Cooperative, No apparent distress HEENT: Atraumatic Lungs: Clear to auscultation, Normal air movement, No rhonchi, No wheeze, No rales Cardiovascular: Regular rate, Regular Rhythm Abdomen: Soft, Non Tender, Obese Extremities: No clubbing, No cyanosis, No edema, Capillary Refill Less than 3 Seconds Skin: No rashes, No breakdown, - - raised rough patches present LLE without signs of infection, visible scratch whitfield noted Wound Measurements and Assessment WC - Nurse 1 - General Ulcer Measurement Start: 02/27/18 14:28 Freq: Status: Active Protocol: Activity Type Activity Date Activity User E-Sign Co-Sign Detail Recorded Client Recorded Date Recorded By Document 02/27/18 14:38 DL [id number] 02/27/18 14:43 DL 02/27/18 14:38 Wound Center Nurse 1 [Edema Assessment] -Right Calf (cm) 45.2 -Right Ankle (cm) 23 -Left Calf (cm) 46.4 -Left Ankle (cm) 23.5 Neurological: Cranial nerves II-XII grossly intact, Neuro grossly intact Psych/Mental Status: Normal Affect, Appropriate, Alert and oriented to time, place, person, mood and affect Debridement Note No debridement was completed today Assessment/Plan Active Problems Nonhealing ulcer of right lower extremity with fat layer exposed (Acute) Bilateral lower extremity edema (Acute) Chronic stasis dermatitis of left lower extremity (Acute) Chronic acquired lymphedema (Acute) Assessment: See above diagnoses Plan: The patient was seen and examined at the wound center today and was updated on the plan of care. The patients wounds and lymphedema has resolved. Instructed on the importance of using her lymphedema pumps that she is noncompliant with at least 3 times per day. Instructed to use Eucerin to BLLE to reduce skin dryness. A referral to dermatology was made as well regarding her chronic skin changes to her lower extremities and is scheduled on 03/03/[address] barreto. Pt to discuss following up with PCP for her chronic itching. Vascular studies ordered and demonstrated venous insufficiency with right TINO of 1.08 and left TINO 1.06.. Patient educated on the importance of diet on wound healing and instructed to increase protein and vitamin C intake. Patient educated on the importance of keeping her diabetes under control. Did discuss signs and symptoms of cellulitis that require urgent medical attention. Patient verbalized understanding. Patient will be discharged from [facility] and f/u PRN.This note was generated with [employer] dictation software. It may contain incorrect words, spelling, and punctuation that were not noted in checking the note before signing. Code Visit Office Visits / Consults: [id number] OV L3 Est
== END 2018-03-28 23:59 ==
LOC: WC 13:57
PROVIDERS: Family Provider Family Medicine; PCP Family Medicine; Visit Provider Nurse Practitioner Family
DX: Z09 Encounter for follow-up examination after completed treatment for conditions other than malignant neoplasm (principal); E11.51 Type 2 diabetes mellitus with diabetic peripheral angiopathy without gangrene; E11.40 Type 2 diabetes mellitus with diabetic neuropathy, unspecified; R60.0 Localized edema
CPT/HCPCS: 99212; G0463

== ENCOUNTER → 2018-09-23 14:16 | Outpatient (CLI) | payer MEDICARE, MEDICAID, SELFPAY ==
[2018-01-16 14:34] VITALS: BMI 51.2
--- NOTE | 2018-09-23 14:22 | RAD_ITS ---
STUDY: X-RAY CHEST REASON FOR EXAM: Female, 68 years old. Wheezing and shortness of breath TECHNIQUE: PA and lateral views of the chest. COMPARISON: None. FINDINGS: Mild prominence of interstitial lung markings throughout the mid lungs and lung bases, left greater than. No confluent airspace opacity. No pleural effusion or pneumothorax. Normal size heart. Normal mediastinum and leda. Normal visualized pulmonary arteries. Normal visualized aortic arch and descending thoracic aorta. Normal visualized thoracic spine. Normal visualized ribs, clavicles, and shoulders. There is no demonstrated abnormality of the visualized soft tissue structures of the upper abdomen. RAD/Chest PA and Lateral IMPRESSION: Bilateral midlung and bilateral lung base interstitial change, likely representing interstitial edema. Electronically Signed: Samuel Anderson MD at 2:57 EST Tel , Service support ,
== END ==
PROVIDERS: Family Provider Family Medicine; PCP Family Medicine; Referring Provider Internal Medicine Pulmonary Disease; Visit Provider Internal Medicine Pulmonary Disease
DX: R06.2 Wheezing (principal); R06.00 Dyspnea, unspecified
CPT/HCPCS: 71046

== ENCOUNTER 2019-05-28 14:30 | Outpatient (RCR) | payer MEDICARE, MEDICAID, SELFPAY ==
[2019-05-07 13:49] VITALS: BP 156/75; PULSE 87; RESP 18; TEMP 36.3; BMI 54.0
--- NOTE | 2019-05-07 19:39 | HP.PCM_ITS ---
(1) Nonhealing ulcer of right lower extremity with fat layer exposed Status: Acute Current Visit: Yes Code(s): L97.912 - Non-pressure chronic ulcer of unspecified part of right lower leg with fat layer exposed (2) Nonhealing ulcer of left lower extremity with fat layer exposed Status: Acute Current Visit: Yes Code(s): L97.922 - Non-pressure chronic ulcer of unspecified part of left lower leg with fat layer exposed (3) Elephantiasis Status: Acute Current Visit: Yes Code(s): I89.0 - Lymphedema, not elsewhere classified (4) Type 2 diabetes mellitus Status: Acute Current Visit: Yes Code(s): E11.9 - Type 2 diabetes mellitus without complications (5) Diabetic ulcer of toe of left foot Status: Acute Current Visit: Yes Code(s): E11.621 - Type 2 diabetes mellitus with foot ulcer; L97.529 - Non-pressure chronic ulcer of other part of left foot with unspecified severity Comment: left 2nd and 5th dorsal toes rosales grade 2 (6) Bilateral lower extremity edema Status: Acute Current Visit: Yes Code(s): R60.0 - Localized edema (7) Chronic acquired lymphedema Status: Acute Current Visit: Yes Code(s): I89.0 - Lymphedema, not elsewhere classified (8) Chronic stasis dermatitis of left lower extremity Status: Acute Current Visit: Yes Code(s): I87.2 - Venous insufficiency (chronic) (peripheral) (9) Decreased pedal pulses Status: Acute Current Visit: Yes Code(s): R09.89 - Other specified symptoms and signs involving the circulatory and respiratory systems (10) Venous insufficiency Status: Acute Current Visit: Yes Code(s): I87.2 - Venous insufficiency (chronic) (peripheral) (11) HLD (hyperlipidemia) Status: Chronic Current Visit: No Code(s): E78.5 - Hyperlipidemia, unspecified History of Present Illness Date of Service: 05/07/19 Chief Complaint: Nonhealing ulcer b/l lower extremity and left toes History of Wound: This is a 68-year-old white female with a past medical history as listed above who presents to the wound healing center today with complaints of nonhealing ulcer to the bilateral lower extremities and left second and fifth toe. She states that these ulcers have been present for the past 4 months. She is well-known to me and has been seen by myself at the wound center in the past. She states she did follow-up as recommended with dermatology and was diagnosed with elephantiasis.she does note that over the course of the last couple months she has been placed on several antibiotics due to surrounding cellulitis, however denies any symptoms of cellulitis at this time. She states that she has dry scaly and reddened skin bilaterally to the lower extremities which causes her to itch all the time and scratch open, she has had ulcerations which in the past she states has become infected. However she denies any signs of infection at this time and denies any fever, purulent exudate, or increasing pain. She does state that she has lymphedema pumps and compression stockings, however she refuses to utilize them at this time due to not thinking that are necessary. She currently resides at [facility]. She does state that she is able to ambulate, however she spends most of her time in a wheelchair. She currently has been using a prescription cream to her bilateral lower extremities. Her past medical history is significant for that of type 2 diabetes mellitus, neuropathy, PVD, rheumatoid arthritis, asthma, GERD, and depression. Past Medical History Past Medical History: Chronic Problems Renal lithiasis (Chronic) Right Peripheral neuropathy (Chronic) Obstructive sleep apnea (Chronic) Increased BMI (Chronic) Chronic back pain (Chronic) HLD (hyperlipidemia) (Chronic) Benign hypertension (Chronic) Surgical History: noncontributory, hysterectomy Allergies/Adverse Reactions: Allergies aspirin Allergy (Verified 05/07/19 14:26) Hives Penicillins Allergy (Verified 05/07/19 14:26) Hives Sulfa (Sulfonamide Antibiotics) Allergy (Verified 05/07/19 14:26) Hives Home Medications: Ambulatory Orders Medication Instructions Recorded Albuterol IH (ProAir) [Proair Hfa] 1 - 2 puff INHALATION Q4H PRN PRN 02/16/14 Fluticasone 0.05% [Flonase Nasal 2 spray NASAL DAILY 02/16/14 [place]] Fluticasone/Salmeterol [Advair 1 puff INHALATION BID 02/16/14 250/50 Mcg Diskus] Morphine [Morphine IR] 60 mg PO Q4H PRN PRN 02/16/14 Multivitamin with Iron 1 each PO DAILY 02/16/14 [Multivitamins with Iron] Oxybutynin [Ditropan] 5 mg PO DAILY 02/16/14 Oxycodone HCl/Acetaminophen 1 tablet PO Q4H PRN PRN 02/16/14 [Percocet 5/325] Potassium Chloride [K-Dur] 10 meq PO BID 02/16/14 Pregabalin [Lyrica] 100 mg PO TID 02/16/14 Ropinirole HCl [Requip] 0.25 mg PO QHS 02/16/14 Vit D3/Folic Acid/B2/B6/B12 1 each PO DAILY 02/16/14 [Folgard Tablet] Basaglar Kwikpen U-100 25 100ml EPIDURAL DAILY 05/07/19 Furosemide [Lasix] 80 mg PO DAILY 05/07/19 - Family History Maternal No pertinent history Smoking Status: Never smoker Review of Systems Constitutional: Denies: Chills, Fever, Weight Change Eyes: Denies: Pain, Vision Change HEENT: Denies: Difficulty Hearing, Difficulty Swallowing, Sinus Congestion Cardiovascular: Denies: Chest Pain, Palpitations Respiratory: Denies: Cough, Shortness of Breath Gastrointestinal: Denies: Diarrhea, Nausea, Vomiting Genitourinary: Denies: Dysuria, Hematuria Skin: Reports: Wounds - See HPI Endocrine: Denies: Heat/ Cold Intolerance, Polydipsia, Polyuria Hematologic/ Lymphatic: Denies: Easy Bruising, Easy Bleeding - Physical Exam Vital Signs Temp Pulse Resp BP 97.3 F L 87 18 156/75 H 05/07/19 13:49 05/07/19 13:49 05/07/19 13:49 05/07/19 13:49 General: Alert, Oriented x3, Cooperative, No apparent distress HEENT: Atraumatic Oral: Moist Mucosa Lungs: Clear to auscultation, Normal air movement Cardiovascular: Regular rate, Regular Rhythm Abdomen: Soft, Non Tender, Obese Extremities: No clubbing, No cyanosis, Edema - 3+ nonpitting bilateral lower extremity edema, Peripheral Pulses Normal Skin: Ulcer/ Wound - See nursing documentation, cluster ulcerations to bilateral lower extremities with adherent slough, Kayla grade 2 diabetic foot ulcers of the left second and fifth toe, no signs of infection, skin changes consistent with venous insufficiency present bilateral lower extremities Wound Measurements and Assessment WC - Nurse 1 - General Ulcer Measurement Start: 05/07/19 13:49 Freq: Status: Active Protocol: Activity Type Activity Date Activity User E-Sign Co-Sign Detail Recorded Client Recorded Date Recorded By Document 05/07/19 13:49 DL [id number] 05/07/19 14:24 DL 05/07/19 13:49 Wound Center Nurse 1 [Ulcer Assessment] #8 L 5th toe dfu -Current Size (cm) - Length 0.6 -Current Size (cm) - Width 0.3 -Current Size (cm) - Depth 0.2 -Total Square Cm 0.18 -Photo Taken Yes -Exudate Amt Small -Exudate Type Serosanguineous -Wound Margin Distinct, Outline Attached -Granulation Amt Small (1-33%) -Granulation Quality [place] -Necrosis Amt Large (67-100%) -Necrotic Tissue Type Adherent Slough -Structure Exposed N/A -Texture (Beatris-wound Skin Appearance) Localized Edema ,Scarring -Moisture ([place]-wound Skin Appearance Dry/Scaly ) -Color ([place]-wound Skin Appearance) Hemosiderin Staining -Temperature ([place]-wound Skin No Abnormality Appearance) (Pt Warm) -Tenderness on Palpation ([place]-wound No Skin Appearance) -Ulcer Cleansing Wound Cleanser -Foul Odor after Cleansing No -Anesthetic Used 4% Lidocaine Solution #7 L 2nd toe dfu -Current Size (cm) - Length 0.8 -Current Size (cm) - Width 0.9 -Current Size (cm) - Depth 0.1 -Total Square Cm 0.72 -Photo Taken Yes -Exudate Amt Small -Exudate Type Serosanguineous -Wound Margin Distinct, Outline Attached -Granulation Amt Small (1-33%) -Granulation Quality [place] -Necrosis Amt Large (67-100%) -Necrotic Tissue Type Adherent Slough -Structure Exposed N/A -Texture ([place]-wound Skin Appearance) Localized Edema ,Scarring -Moisture ([place]-wound Skin Appearance Dry/Scaly ) -Color ([place]-wound Skin Appearance) Hemosiderin Staining -Temperature ([place]-wound Skin No Abnormality Appearance) (Pt Warm) -Tenderness on Palpation ([place]-wound No Skin Appearance) -Ulcer Cleansing Wound Cleanser -Foul Odor after Cleansing No -Anesthetic Used 4% Lidocaine Solution #6 L Hand Cluster -Current Size (cm) - Length 15.6 -Current Size (cm) - Width 13.5 -Current Size (cm) - Depth 0.1 -Total Square Cm 210.60 -Photo Taken Yes -Classification - Thickness Full Thickness without Exposed Support Structure -Exudate Amt Small -Exudate Type Serosanguineous -Wound Margin Indistinct, Non -Visible -Granulation Amt Small (1-33%) -Granulation Quality [place] -Necrosis Amt Medium (34-66%) -Necrotic Tissue Type Adherent Slough -Structure Exposed N/A -Texture ([place]-wound Skin Appearance) Localized Edema ,Scarring -Moisture ([place]-wound Skin Appearance Dry/Scaly ) -Color ([place]-wound Skin Appearance) Erythema, Hemosiderin Staining -Temperature ([place]-wound Skin No Abnormality Appearance) (Pt Warm) -Tenderness on Palpation ([place]-wound Yes Skin Appearance) -Ulcer Cleansing Wound Cleanser -Foul Odor after Cleansing No -Anesthetic Used 4% Lidocaine Solution #5 R Med Cluster -Current Size (cm) - Length 5.5 -Current Size (cm) - Width 4.2 -Current Size (cm) - Depth 0.1 -Total Square Cm 23.10 -Photo Taken Yes -Classification - Thickness Full Thickness without Exposed Support Structure -Exudate Amt Small -Wound Margin Indistinct, Non -Visible -Granulation Amt Small (1-33%) -Granulation Quality [place] -Necrosis Amt Large (67-100%) -Necrotic Tissue Type Adherent Slough -Structure Exposed N/A -Texture ([place]-wound Skin Appearance) Excoriation, Localized Edema ,Scarring -Moisture ([place]-wound Skin Appearance Dry/Scaly ) -Color ([place]-wound Skin Appearance) Erythema, Hemosiderin Staining -Temperature ([place]-wound Skin No Abnormality Appearance) (Pt Warm) -Tenderness on Palpation ([place]-wound No Skin Appearance) -Ulcer Cleansing Wound Cleanser -Foul Odor after Cleansing No -Anesthetic Used 4% Lidocaine Solution #4 R Lat -Current Size (cm) - Length 3 -Current Size (cm) - Width 3.8 -Current Size (cm) - Depth 0.2 -Total Square Cm 11.4 -Photo Taken Yes -Classification - Thickness Full Thickness without Exposed Support Structure -Exudate Amt Small -Exudate Type Serosanguineous -Wound Margin Distinct, Outline Attached -Granulation Amt Medium (34-66%) -Granulation Quality [place],Red -Necrosis Amt Medium (34-66%) -Necrotic Tissue Type Adherent Slough -Structure Exposed N/A -Texture (Beatris-wound Skin Appearance) Excoriation, Induration, Localized Edema ,Scarring -Moisture ([place]-wound Skin Appearance Dry/Scaly ) -Color ([place]-wound Skin Appearance) Hemosiderin Staining -Temperature ([place]-wound Skin No Abnormality Appearance) (Pt Warm) -Tenderness on Palpation ([place]-wound Yes Skin Appearance) -Ulcer Cleansing Wound Cleanser -Foul Odor after Cleansing No -Anesthetic Used 4% Lidocaine Solution [Edema Assessment] -Right Calf (cm) 48.5 -Right Ankle (cm) 23.2 -Left Calf (cm) 49 -Left Ankle (cm) 24 WC - Nurse 2 - General Ulcer CM Notes Start: 05/07/19 13:49 Freq: Status: Active Protocol: Activity Type Activity Date Activity User E-Sign Co-Sign Detail Recorded Client Recorded Date Recorded By Document 05/07/19 15:01 AN [id number] 05/07/19 15:14 AN 05/07/19 15:01 Wound Center Nurse 2 [Procedure/Treatment] #8 L 5th toe dfu -Time 15:09 -Correct Patient Yes -Correct Side, Site, Position Yes -Correct Procedure Yes -Procedure Performed Yes -Type of Procedure Debridement -Clinical Debridement Subcutaneous -Post Debridement Size (cm) - Length 1 -Post Debridement Size (cm) - Width 1 -Post Debridement Size (cm) - Depth 0.2 -Total Square Cm 1 -Wound/Ulcer Outcome Not Healed -Offloading No -Treatment Response Procedure Tolerated Well #7 L 2nd toe dfu -Time 15:09 -Correct Patient Yes -Correct Side, Site, Position Yes -Correct Procedure Yes -Procedure Performed Yes -Type of Procedure Debridement -Clinical Debridement Subcutaneous -Post Debridement Size (cm) - Length 0.9 -Post Debridement Size (cm) - Width 1.3 -Post Debridement Size (cm) - Depth 0.2 -Total Square Cm 1.17 -Wound/Ulcer Outcome Not Healed -Bleeding Controlled with Pressure -Treatment Response Procedure Tolerated Well #6 L Hand Cluster -Time 15:10 -Correct Patient Yes -Correct Side, Site, Position Yes -Correct Procedure Yes -Procedure Performed Yes -Type of Procedure Debridement -Clinical Debridement Subcutaneous -Post Debridement Size (cm) - Length 27 -Post Debridement Size (cm) - Width 23 -Post Debridement Size (cm) - Depth 0.3 -Total Square Cm 621 -Wound/Ulcer Outcome Not Healed -Ulcer Cleansing Rinsed/ Irrigated with Saline -Bleeding Controlled with Pressure -Offloading Yes -Treatment Response Procedure Tolerated Well #5 R Med Cluster -Time 15:10 -Correct Patient Yes -Correct Side, Site, Position Yes -Correct Procedure Yes -Procedure Performed Yes -Type of Procedure Debridement -Clinical Debridement Subcutaneous -Post Debridement Size (cm) - Length 17 -Post Debridement Size (cm) - Width 8 -Post Debridement Size (cm) - Depth 0.3 -Total Square Cm 136 -Wound/Ulcer Outcome Not Healed -Ulcer Cleansing Rinsed/ Irrigated with Saline -Foul Odor after Cleansing No -Bioengineered Tissue No -Bleeding Controlled with Pressure -Offloading Yes -Treatment Response Procedure Tolerated Well #4 R Lat -Time 15:08 -Correct Patient Yes -Correct Side, Site, Position Yes -Correct Procedure Yes -Procedure Performed Yes -Type of Procedure Debridement -Clinical Debridement Subcutaneous -Post Debridement Size (cm) - Length 29 -Post Debridement Size (cm) - Width 9 -Post Debridement Size (cm) - Depth 0.3 -Total Square Cm 261 -Wound/Ulcer Outcome Not Healed -Ulcer Cleansing Rinsed/ Irrigated with Saline -Foul Odor after Cleansing No -Bioengineered Tissue No -Bleeding Controlled with Pressure -Offloading Yes -Treatment Response Procedure Tolerated Well [See Physician Procedure note for Specifics] Pain Scale: 0-10 Numeric [Pain] -Is Patient Pain Free? Yes Neurological: Neuro grossly intact Psych/Mental Status: Normal Affect, Appropriate, Alert and oriented to time, place, person, mood and affect Debridement Note Post-Debridement Measurements/Treatment WC - Nurse 2 - General Ulcer CM Notes Start: 05/07/19 13:49 Freq: Status: Active Protocol: Activity Type Activity Date Activity User E-Sign Co-Sign Detail Recorded Client Recorded Date Recorded By Document 05/07/19 15:01 AN [id number] 05/07/19 15:14 AN 05/07/19 15:01 Wound Center Nurse 2 #8 L 5th toe dfu -Time 15:09 -Correct Patient Yes -Correct Side, Site, Position Yes -Correct Procedure Yes -Procedure Performed Yes -Type of Procedure Debridement -Clinical Debridement Subcutaneous -Post Debridement Size (cm) - Length 1 -Post Debridement Size (cm) - Width 1 -Post Debridement Size (cm) - Depth 0.2 -Total Square Cm 1 -Wound/Ulcer Outcome Not Healed -Offloading No -Treatment Response Procedure Tolerated Well #7 L 2nd toe dfu -Time 15:09 -Correct Patient Yes -Correct Side, Site, Position Yes -Correct Procedure Yes -Procedure Performed Yes -Type of Procedure Debridement -Clinical Debridement Subcutaneous -Post Debridement Size (cm) - Length 0.9 -Post Debridement Size (cm) - Width 1.3 -Post Debridement Size (cm) - Depth 0.2 -Total Square Cm 1.17 -Wound/Ulcer Outcome Not Healed -Bleeding Controlled with Pressure -Treatment Response Procedure Tolerated Well #6 L Hand Cluster -Time 15:10 -Correct Patient Yes -Correct Side, Site, Position Yes -Correct Procedure Yes -Procedure Performed Yes -Type of Procedure Debridement -Clinical Debridement Subcutaneous -Post Debridement Size (cm) - Length 27 -Post Debridement Size (cm) - Width 23 -Post Debridement Size (cm) - Depth 0.3 -Total Square Cm 621 -Wound/Ulcer Outcome Not Healed -Ulcer Cleansing Rinsed/ Irrigated with Saline -Bleeding Controlled with Pressure -Offloading Yes -Treatment Response Procedure Tolerated Well #5 R Med Cluster -Time 15:10 -Correct Patient Yes -Correct Side, Site, Position Yes -Correct Procedure Yes -Procedure Performed Yes -Type of Procedure Debridement -Clinical Debridement Subcutaneous -Post Debridement Size (cm) - Length 17 -Post Debridement Size (cm) - Width 8 -Post Debridement Size (cm) - Depth 0.3 -Total Square Cm 136 -Wound/Ulcer Outcome Not Healed -Ulcer Cleansing Rinsed/ Irrigated with Saline -Foul Odor after Cleansing No -Bioengineered Tissue No -Bleeding Controlled with Pressure -Offloading Yes -Treatment Response Procedure Tolerated Well #4 R Lat -Time 15:08 -Correct Patient Yes -Correct Side, Site, Position Yes -Correct Procedure Yes -Procedure Performed Yes -Type of Procedure Debridement -Clinical Debridement Subcutaneous -Post Debridement Size (cm) - Length 29 -Post Debridement Size (cm) - Width 9 -Post Debridement Size (cm) - Depth 0.3 -Total Square Cm 261 -Wound/Ulcer Outcome Not Healed -Ulcer Cleansing Rinsed/ Irrigated with Saline -Foul Odor after Cleansing No -Bioengineered Tissue No -Bleeding Controlled with Pressure -Offloading Yes -Treatment Response Procedure Tolerated Well Pain Scale: 0-10 Numeric Is Patient Pain Free? Yes Wound debrided: Right medial and lateral cluster ulcerations venous Laterality: Right Type of Debridement: Excisional debridement Anesthesia Used: 5% Lidocaine Gel Depth: in the subcutaneous layer Percentage of wound debrided: 50 Instrument Used: 7mm curette Tissue Removed: Large amount of slough and devitalized tissue Severity: Fat Layer Exposed Amount of bleeding with debridement: Mild Bleeding Controlled with: Pressure Patient tolerated procedure well - Additional Wound Wound debrided: Left cluster venous leg ulcer Laterality: Left Type of Debridement: Excisional debridement Anesthesia Used: 5% Lidocaine Gel Depth: in the subcutaneous layer Percentage of wound debrided: 100 Instrument Used: 7mm curette Tissue Removed: Slough and devitalized tissue Severity: Fat Layer Exposed Amount of bleeding with debridement: Mild Bleeding Controlled with: Pressure Patient tolerated procedure: Patient tolerated procedure well Assessment/Plan Active Problems Nonhealing ulcer of right lower extremity with fat layer exposed (Acute) Bilateral lower extremity edema (Acute) Decreased pedal pulses (Acute) Chronic stasis dermatitis of left lower extremity (Acute) Venous insufficiency (Acute) Chronic acquired lymphedema (Acute) Elephantiasis (Acute) Type 2 diabetes mellitus (Acute) Nonhealing ulcer of left lower extremity with fat layer exposed (Acute) Diabetic ulcer of toe of left foot (Acute) left 2nd and 5th dorsal toes rosales grade 2 Assessment: See above diagnoses Plan: The patient was seen and examined at the wound center today and was updated on the plan of care. A subcutaneous debridement was done today as documented in the clinical panel and patient tolerated well. For wound care, she will be placed in bilateral Unna boots which she is tolerated well in the past. Instructed on the importance of using her lymphedema pumps that she is noncompliant with at least 3 times per day if the Unna boots, off. Instructed to use Eucerin to BLLE to reduce skin dryness. Will request records from dermatology for continuity of care. Pt to discuss following up with PCP for her chronic itching. Vascular studies ordered last year and demonstrated venous insufficiency with right TINO of 1.08 and left TINO 1.06.. Patient educated on the importance of diet on wound healing and instructed to increase protein and vitamin C intake. Patient educated on the importance of keeping her diabetes under control. Did discuss signs and symptoms of cellulitis that require urgent medical attention. Patient verbalized understanding. Patient will follow-up at the wound center in 4 days for Unna boot change in 1 week with provider.given the delayed wound healing and the fact that patient's wounds have been going on for over 4 months now and failed standard wound care, will apply for the use of an advanced skin substitute. This note was generated with [employer] dictation software. It may contain incorrect words, spelling, and punctuation that were no t noted in checking the note before signing. Code Visit Office Visits / Consults: [id number] OV L4 Est [id number]: [id number] Rachel subq tissue 20 sq cm/< Add On Codes: 19489 Rachel subq tissue add-on
[2019-05-14 14:36] VITALS: BMI 54.0
--- NOTE | 2019-05-14 17:10 | PCM.WC.PN ---
(1) Nonhealing ulcer of right lower extremity with fat layer exposed Status: Acute Current Visit: Yes Code(s): L97.912 - Non-pressure chronic ulcer of unspecified part of right lower leg with fat layer exposed (2) Nonhealing ulcer of left lower extremity with fat layer exposed Status: Acute Current Visit: Yes Code(s): L97.922 - Non-pressure chronic ulcer of unspecified part of left lower leg with fat layer exposed (3) Elephantiasis Status: Acute Current Visit: Yes Code(s): I89.0 - Lymphedema, not elsewhere classified (4) Type 2 diabetes mellitus Status: Acute Current Visit: Yes Code(s): E11.9 - Type 2 diabetes mellitus without complications (5) Diabetic ulcer of toe of left foot Status: Acute Current Visit: Yes Code(s): E11.621 - Type 2 diabetes mellitus with foot ulcer; L97.529 - Non-pressure chronic ulcer of other part of left foot with unspecified severity Comment: left 2nd and 5th dorsal toes rosales grade 2 (6) Bilateral lower extremity edema Status: Acute Current Visit: Yes Code(s): R60.0 - Localized edema (7) Chronic acquired lymphedema Status: Acute Current Visit: Yes Code(s): I89.0 - Lymphedema, not elsewhere classified (8) Chronic stasis dermatitis of left lower extremity Status: Acute Current Visit: Yes Code(s): I87.2 - Venous insufficiency (chronic) (peripheral) (9) Decreased pedal pulses Status: Acute Current Visit: Yes Code(s): R09.89 - Other specified symptoms and signs involving the circulatory and respiratory systems (10) Venous insufficiency Status: Acute Current Visit: Yes Code(s): I87.2 - Venous insufficiency (chronic) (peripheral) (11) HLD (hyperlipidemia) Status: Chronic Current Visit: No Code(s): E78.5 - Hyperlipidemia, unspecified Type of Wound Date of Service: 05/14/19 Chief Complaint: Nonhealing ulcer b/l lower extremity and left toes History of Wound: This is a 68-year-old white female with a past medical history as listed above who presents to the wound healing center today with complaints of nonhealing ulcer to the bilateral lower extremities and left second and fifth toe. She states that these ulcers have been present for the past 4 months. She is well-known to me and has been seen by myself at the wound center in the past. She states she did follow-up as recommended with dermatology and was diagnosed with elephantiasis.she does note that over the course of the last couple months she has been placed on several antibiotics due to surrounding cellulitis, however denies any symptoms of cellulitis at this time. She states that she has dry scaly and reddened skin bilaterally to the lower extremities which causes her to itch all the time and scratch open, she has had ulcerations which in the past she states has become infected. However she denies any signs of infection at this time and denies any fever, purulent exudate, or increasing pain. She does state that she has lymphedema pumps and compression stockings, however she refuses to utilize them at this time due to not thinking that are necessary. She currently resides at [facility]. She does state that she is able to ambulate, however she spends most of her time in a wheelchair. She currently has been using a prescription cream to her bilateral lower extremities. Her past medical history is significant for that of type 2 diabetes mellitus, neuropathy, PVD, rheumatoid arthritis, asthma, GERD, and depression. Progress of Wound: Ulcers are stable and improving, however second left toe ulceration appears slightly worsened and is now erythematous and swollen. Patient notes that it is more painful. Cultures collected today. The patient otherwise denies any fever, chills, nausea, vomiting, shortness of breath, chest pain or pressure, palpitations, orthopnea, lower extremity edema, syncope or presyncopal episodes. - Physical Exam Vital Signs Temp Pulse Resp BP 97.3 F L 87 18 156/75 H 05/07/19 13:49 05/07/19 13:49 05/07/19 13:49 05/07/19 13:49 General: Alert, Oriented x3, Cooperative, No apparent distress HEENT: Atraumatic Oral: Moist Mucosa Lungs: Clear to auscultation, Normal air movement Cardiovascular: Regular rate, Regular Rhythm Abdomen: Bowel Sounds Present, Soft Extremities: No clubbing, No cyanosis, No edema Skin: Ulcer/ Wound - Ulcerations to bilateral lower extremities with adherent slough, no signs of infection at this time. Left second toe ulcer edematous and there is no warmth to touch at this time. Wound Measurements and Assessment WC - Nurse 1 - General Ulcer Measurement Start: 05/07/19 13:49 Freq: Status: Active Protocol: Activity Type Activity Date Activity User E-Sign Co-Sign Detail Recorded Client Recorded Date Recorded By Document 05/14/19 14:36 RB [id number] 05/14/19 14:46 RB 05/14/19 14:36 Wound Center Nurse 1 [Ulcer Assessment] #8 L 5th toe dfu -Combined with other wound No -Current Size (cm) - Length 0.4 -Current Size (cm) - Width 0.4 -Current Size (cm) - Depth 0.1 -Total Square Cm 0.16 -Tunneling No -Undermining/Tunneling No -Circular Undermining No -Exudate Amt Small -Exudate Type Serosanguineous -Wound Margin Distinct, Outline Attached -Granulation Amt Medium (34-66%) -Granulation Quality [place] -Slough/Fibrin Yes -Necrosis Amt Small (1-33%) -Necrotic Tissue Type Adherent Slough -Structure Exposed N/A -Texture (Beatris-wound Skin Appearance) Assessed -Moisture (Beatris-wound Skin Appearance Assessed,Dry/ ) Scaly -Color (Beatris-wound Skin Appearance) Assessed -Temperature (Beatris-wound Skin No Abnormality Appearance) (Pt Warm) -Tenderness on Palpation (Beatris-wound No Skin Appearance) -Ulcer Cleansing Wound Cleanser -Foul Odor after Cleansing No -Anesthetic Used 4% Lidocaine Solution #7 L 2nd toe dfu -Combined with other wound No -Current Size (cm) - Length 1.7 -Current Size (cm) - Width 1.4 -Current Size (cm) - Depth 0.1 -Total Square Cm 2.38 -Tunneling No -Undermining/Tunneling No -Circular Undermining No -Exudate Amt Small -Exudate Type Serosanguineous -Wound Margin Flat & Intact -Granulation Amt Medium (34-66%) -Granulation Quality [place] -Slough/Fibrin Yes -Necrosis Amt Small (1-33%) -Necrotic Tissue Type Adherent Slough -Structure Exposed N/A -Texture (Beatris-wound Skin Appearance) Assessed -Moisture (Beatris-wound Skin Appearance Assessed,Dry/ ) Scaly -Color (Beatris-wound Skin Appearance) Assessed -Temperature (Beatris-wound Skin No Abnormality Appearance) (Pt Warm) -Tenderness on Palpation (Beatris-wound No Skin Appearance) -Ulcer Cleansing Wound Cleanser -Foul Odor after Cleansing No -Anesthetic Used 4% Lidocaine Solution #6 L Hand Cluster -Combined with other wound No -Current Size (cm) - Length 19.7 -Current Size (cm) - Width 9.7 -Current Size (cm) - Depth 0.3 -Total Square Cm 191.09 -Tunneling No -Undermining/Tunneling No -Circular Undermining No -Exudate Amt Small -Exudate Type Serosanguineous -Wound Margin Flat & Intact -Granulation Amt Medium (34-66%) -Granulation Quality [place] -Slough/Fibrin Yes -Necrosis Amt Small (1-33%) -Necrotic Tissue Type Adherent Slough -Structure Exposed N/A -Texture (Beatris-wound Skin Appearance) Assessed -Moisture (Beatris-wound Skin Appearance Assessed, ) Weeping -Color (Beatris-wound Skin Appearance) Assessed -Temperature (Beatris-wound Skin No Abnormality Appearance) (Pt Warm) -Tenderness on Palpation (Beatris-wound No Skin Appearance) -Ulcer Cleansing Wound Cleanser -Foul Odor after Cleansing No -Anesthetic Used 4% Lidocaine Solution #5 R Med Cluster -Current Size (cm) - Length 15.6 -Current Size (cm) - Width 7.2 -Current Size (cm) - Depth 0.1 -Total Square Cm 112.32 -Tunneling No -Undermining/Tunneling No -Circular Undermining No -Classification - Thickness Full Thickness without Exposed Support Structure -Exudate Amt Medium -Exudate Type Serosanguineous -Wound Margin Flat & Intact -Granulation Amt Medium (34-66%) -Granulation Quality [place] -Slough/Fibrin Yes -Necrosis Amt Medium (34-66%) -Necrotic Tissue Type Adherent Slough -Structure Exposed N/A -Texture (Beatris-wound Skin Appearance) Assessed -Moisture (Beatris-wound Skin Appearance Assessed, ) Weeping -Color (Beatris-wound Skin Appearance) Assessed -Temperature (Beatris-wound Skin No Abnormality Appearance) (Pt Warm) -Ulcer Cleansing Rinsed/ Irrigated with Saline -Foul Odor after Cleansing No -Anesthetic Used 4% Lidocaine Solution #4 R Lat -Combined with other wound No -Current Size (cm) - Length 4.4 -Current Size (cm) - Width 4.2 -Current Size (cm) - Depth 0.3 -Total Square Cm 18.48 -Tunneling No -Undermining/Tunneling No -Circular Undermining No -Classification - Thickness Full Thickness without Exposed Support Structure -Exudate Amt Medium -Exudate Type Serosanguineous -Wound Margin Flat & Intact -Granulation Amt Medium (34-66%) -Granulation Quality [place] -Slough/Fibrin Yes -Necrosis Amt Medium (34-66%) -Structure Exposed N/A -Texture (Beatris-wound Skin Appearance) Assessed -Moisture (Beatris-wound Skin Appearance Assessed, ) Weeping -Color (Beatris-wound Skin Appearance) Assessed -Temperature (Beatris-wound Skin No Abnormality Appearance) (Pt Warm) -Ulcer Cleansing Rinsed/ Irrigated with Saline -Foul Odor after Cleansing No -Anesthetic Used 4% Lidocaine Solution [Edema Assessment] -Lower Limb Edema Present Yes -Right Calf (cm) 50.5 -Right Ankle (cm) 23.6 -Left Calf (cm) 51 -Left Ankle (cm) 24.3 WC - Nurse 2 - General Ulcer CM Notes Start: 05/07/19 13:49 Freq: Status: Active Protocol: Activity Type Activity Date Activity User E-Sign Co-Sign Detail Recorded Client Recorded Date Recorded By Document 05/14/19 15:09 AN [id number] 05/14/19 15:18 AN 05/14/19 15:09 Wound Center Nurse 2 [Procedure/Treatment] #8 L 5th toe dfu -Time 15:15 -Correct Patient Yes -Correct Side, Site, Position Yes -Correct Procedure Yes -Procedure Performed Yes -Type of Procedure Debridement -Clinical Debridement Subcutaneous -Post Debridement Size (cm) - Length 0.5 -Post Debridement Size (cm) - Width 0.5 -Post Debridement Size (cm) - Depth 0.2 -Total Square Cm 0.25 -Wound/Ulcer Outcome Not Healed -Bleeding Controlled with Pressure #7 L 2nd toe dfu -Time 15:15 -Correct Patient Yes -Correct Side, Site, Position Yes -Correct Procedure Yes -Procedure Performed Yes -Type of Procedure Debridement -Clinical Debridement Subcutaneous -Post Debridement Size (cm) - Length 1.7 -Post Debridement Size (cm) - Width 1.2 -Post Debridement Size (cm) - Depth 0.2 -Total Square Cm 2.04 -Wound/Ulcer Outcome Not Healed -Ulcer Cleansing Rinsed/ Irrigated with Saline -Bleeding Controlled with Pressure -Treatment Response Procedure Tolerated Well #6 L Hand Cluster -Time 15:16 -Correct Patient Yes -Correct Side, Site, Position Yes -Correct Procedure Yes -Procedure Performed Yes -Type of Procedure Debridement -Clinical Debridement Subcutaneous -Post Debridement Size (cm) - Length 20 -Post Debridement Size (cm) - Width 20 -Post Debridement Size (cm) - Depth 0.3 -Total Square Cm 400 -Wound/Ulcer Outcome Not Healed -Ulcer Cleansing Rinsed/ Irrigated with Saline -Bleeding Controlled with Pressure -Offloading Yes -Treatment Response Procedure Tolerated Well #5 R Med Cluster -Time 15:16 -Correct Patient Yes -Correct Side, Site, Position Yes -Correct Procedure Yes -Procedure Performed Yes -Type of Procedure Debridement -Clinical Debridement Subcutaneous -Post Debridement Size (cm) - Length 12 -Post Debridement Size (cm) - Width 15 -Post Debridement Size (cm) - Depth 0.3 -Total Square Cm 180 -Wound/Ulcer Outcome Not Healed -Ulcer Cleansing Rinsed/ Irrigated with Saline -Bleeding Controlled with Pressure -Treatment Response Procedure Tolerated Well #4 R Lat -Time 15:17 -Correct Patient Yes -Correct Side, Site, Position Yes -Correct Procedure Yes -Procedure Performed Yes -Type of Procedure Debridement -Clinical Debridement Subcutaneous -Post Debridement Size (cm) - Length 4 -Post Debridement Size (cm) - Width 4 -Post Debridement Size (cm) - Depth 0.3 -Total Square Cm 16 -Wound/Ulcer Outcome Not Healed -Bleeding Controlled with Pressure -Treatment Response Procedure Tolerated Well [See Physician Procedure note for Specifics] Pain Scale: 0-10 Numeric [Pain] -Is Patient Pain Free? Yes Neurological: Neuro grossly intact Psych/Mental Status: Normal Affect, Appropriate, Alert and oriented to time, place, person, mood and affect Debridement Note Post-Debridement Measurements/Treatment WC - Nurse 2 - General Ulcer CM Notes Start: 05/07/19 13:49 Freq: Status: Active Protocol: Activity Type Activity Date Activity User E-Sign Co-Sign Detail Recorded Client Recorded Date Recorded By Document 05/07/19 15:01 AN [id number] 05/07/19 15:14 AN Document 05/14/19 15:09 AN [id number] 05/14/19 15:18 AN 05/07/19 05/14/19 15:01 15:09 Wound Center Nurse 2 #8 L 5th toe dfu -Time 15:09 15:15 -Correct Patient Yes Yes -Correct Side, Site, Position Yes Yes -Correct Procedure Yes Yes -Procedure Performed Yes Yes -Type of Procedure Debridement Debridement -Clinical Debridement Subcutaneous Subcutaneous -Post Debridement Size (cm) - Length 1 0.5 -Post Debridement Size (cm) - Width 1 0.5 -Post Debridement Size (cm) - Depth 0.2 0.2 -Total Square Cm 1 0.25 -Wound/Ulcer Outcome Not Healed Not Healed -Bleeding Controlled with Pressure -Offloading No -Treatment Response Procedure Tolerated Well #7 L 2nd toe dfu -Time 15:09 15:15 -Correct Patient Yes Yes -Correct Side, Site, Position Yes Yes -Correct Procedure Yes Yes -Procedure Performed Yes Yes -Type of Procedure Debridement Debridement -Clinical Debridement Subcutaneous Subcutaneous -Post Debridement Size (cm) - Length 0.9 1.7 -Post Debridement Size (cm) - Width 1.3 1.2 -Post Debridement Size (cm) - Depth 0.2 0.2 -Total Square Cm 1.17 2.04 -Wound/Ulcer Outcome Not Healed Not Healed -Ulcer Cleansing Rinsed/ Irrigated with Saline -Bleeding Controlled with Pressure Pressure -Treatment Response Procedure Procedure Tolerated Well Tolerated Well #6 L Hand Cluster -Time 15:10 15:16 -Correct Patient Yes Yes -Correct Side, Site, Position Yes Yes -Correct Procedure Yes Yes -Procedure Performed Yes Yes -Type of Procedure Debridement Debridement -Clinical Debridement Subcutaneous Subcutaneous -Post Debridement Size (cm) - Length 27 20 -Post Debridement Size (cm) - Width 23 20 -Post Debridement Size (cm) - Depth 0.3 0.3 -Total Square Cm 621 400 -Wound/Ulcer Outcome Not Healed Not Healed -Ulcer Cleansing Rinsed/ Rinsed/ Irrigated with Irrigated with Saline Saline -Bleeding Controlled with Pressure Pressure -Offloading Yes Yes -Treatment Response Procedure Procedure Tolerated Well Tolerated Well #5 R Med Cluster -Time 15:10 15:16 -Correct Patient Yes Yes -Correct Side, Site, Position Yes Yes -Correct Procedure Yes Yes -Procedure Performed Yes Yes -Type of Procedure Debridement Debridement -Clinical Debridement Subcutaneous Subcutaneous -Post Debridement Size (cm) - Length 17 12 -Post Debridement Size (cm) - Width 8 15 -Post Debridement Size (cm) - Depth 0.3 0.3 -Total Square Cm 136 180 -Wound/Ulcer Outcome Not Healed Not Healed -Ulcer Cleansing Rinsed/ Rinsed/ Irrigated with Irrigated with Saline Saline -Foul Odor after Cleansing No -Bioengineered Tissue No -Bleeding Controlled with Pressure Pressure -Offloading Yes -Treatment Response Procedure Procedure Tolerated Well Tolerated Well #4 R Lat -Time 15:08 15:17 -Correct Patient Yes Yes -Correct Side, Site, Position Yes Yes -Correct Procedure Yes Yes -Procedure Performed Yes Yes -Type of Procedure Debridement Debridement -Clinical Debridement Subcutaneous Subcutaneous -Post Debridement Size (cm) - Length 29 4 -Post Debridement Size (cm) - Width 9 4 -Post Debridement Size (cm) - Depth 0.3 0.3 -Total Square Cm 261 16 -Wound/Ulcer Outcome Not Healed Not Healed -Ulcer Cleansing Rinsed/ Irrigated with Saline -Foul Odor after Cleansing No -Bioengineered Tissue No -Bleeding Controlled with Pressure Pressure -Offloading Yes -Treatment Response Procedure Procedure Tolerated Well Tolerated Well Pain Scale: 0-10 Numeric Is Patient Pain Free? Yes Yes Wound debrided: biLateral lower extremity ulcers Laterality: Left Type of Debridement: Excisional debridement Anesthesia Used: 5% Lidocaine Gel Depth: in the subcutaneous layer Percentage of wound debrided: 100 Instrument Used: 7mm curette Tissue Removed: Slough and devitalized tissue Severity: Fat Layer Exposed Amount of bleeding with debridement: Mild Bleeding Controlled with: Pressure Patient tolerated procedure well - Additional Wound Wound debrided: Left second and fifth toe DFU Laterality: Left Wound Grade/Stage: rosales 2 Type of Debridement: Excisional debridement Anesthesia Used: 5% Lidocaine Gel Depth: in the subcutaneous layer Percentage of wound debrided: 100 Instrument Used: 3mm curette Tissue Removed: -Devitalized tissue Severity: Fat Layer Exposed Amount of bleeding with debridement: Mild Bleeding Controlled with: Pressure Patient tolerated procedure: Patient tolerated procedure well Assessment/Plan Active Problems Nonhealing ulcer of right lower extremity with fat layer exposed (Acute) Bilateral lower extremity edema (Acute) Decreased pedal pulses (Acute) Chronic stasis dermatitis of left lower extremity (Acute) Venous insufficiency (Acute) Chronic acquired lymphedema (Acute) Elephantiasis (Acute) Type 2 diabetes mellitus (Acute) Nonhealing ulcer of left lower extremity with fat layer exposed (Acute) Diabetic ulcer of toe of left foot (Acute) left 2nd and 5th dorsal toes rsoales grade 2 Assessment: See above diagnoses Plan: The patient was seen and examined at the wound center today and was updated on the plan of care. A subcutaneous debridement was done today as documented in the clinical panel and patient tolerated well. For wound care, she will be placed in bilateral Unna boots which she is tolerated well in the past with Aquacel AG over top of ulcers. Change in 4 days. Instructed on the importance of using her lymphedema pumps that she is noncompliant with at least 3 times per day if the Unna boots are off. Instructed to use Eucerin to BLLE to reduce skin dryness. Will request records from dermatology for continuity of care. Pt to discuss following up with PCP for her chronic itching. Vascular studies ordered last year and demonstrated venous insufficiency with right TINO of 1.08 and left TINO 1.06.. Patient educated on the importance of diet on wound healing and instructed to increase protein and vitamin C intake. Patient educated on the importance of keeping her diabetes under control. Did discuss signs and symptoms of cellulitis that require urgent medical attention. Patient verbalized understanding. Patient will follow-up at the wound center in 4 days for Unna boot change in 1 week with provider.given the delayed wound healing and the fact that patient's wounds have been going on for over 4 months now and failed standard wound care, will apply for the use of an advanced skin substitute. This note was generated with [employer] dictation software. It may contain incorrect words, spelling, and punctuation that were not noted in checking the note before signing. Code Visit [id number]: 86365 Rachel subq tissue 20 sq cm/< Add On Codes: 11231 Rachel subq tissue add-on
[2019-05-14 18:31] LABS: M R Staph aureus DNA By PCR POSITIVE (Negative); Probe Check PASS; Staph aureus DNA By PCR POSITIVE (Negative)
[2019-05-18 14:08] VITALS: BP 148/69; PULSE 69; RESP 18; TEMP 37.5; BMI 54.0
[2019-05-21 11:53] VITALS: BP 94/64; PULSE 93; RESP 18; TEMP 37.2; BMI 54.0
--- NOTE | 2019-05-21 12:50 | PN.PCM_ITS ---
(1) Chronic acquired lymphedema Status: Chronic Current Visit: Yes Code(s): I89.0 - Lymphedema, not elsewhere classified (2) Diabetic ulcer of toe of left foot Status: Acute Current Visit: Yes Code(s): E11.621 - Type 2 diabetes mellitus with foot ulcer; L97.529 - Non-pressure chronic ulcer of other part of left foot with unspecified severity Comment: left 2nd and 5th dorsal toes rosales grade 2 (3) Nonhealing ulcer of left lower extremity with fat layer exposed Status: Acute Current Visit: Yes Code(s): L97.922 - Non-pressure chronic ulcer of unspecified part of left lower leg with fat layer exposed (4) Nonhealing ulcer of right lower extremity with fat layer exposed Status: Chronic Current Visit: Yes Code(s): L97.912 - Non-pressure chronic ulcer of unspecified part of right lower leg with fat layer exposed (5) Type 2 diabetes mellitus Status: Acute Current Visit: Yes Code(s): E11.9 - Type 2 diabetes mellitus without complications Type of Wound Date of Service: 05/21/19 Chief Complaint: Nonhealing ulcer b/l lower extremity and left toes History of Wound: This is a 68-year-old white female with a past medical history as listed above who presents to the wound healing center today with complaints of nonhealing ulcer to the bilateral lower extremities and left second and fifth toe. She states that these ulcers have been present for the past 4 months. She is well-known to me and has been seen by myself at the wound center in the past. She states she did follow-up as recommended with dermatology and was diagnosed with elephantiasis.she does note that over the course of the last couple months she has been placed on several antibiotics due to surrounding cellulitis, however denies any symptoms of cellulitis at this time. She states that she has dry scaly and reddened skin bilaterally to the lower extremities which causes her to itch all the time and scratch open, she has had ulcerations which in the past she states has become infected. However she denies any signs of infection at this time and denies any fever, purulent exudate, or increasing pain. She does state that she has lymphedema pumps and compression stockings, however she refuses to utilize them at this time due to not thinking that are necessary. She currently resides at [facility]. She does state that she is able to ambulate, however she spends most of her time in a wheelchair. She currently has been using a prescription cream to her bilateral lower extremities. Her past medical history is significant for that of type 2 diabetes mellitus, neuropathy, PVD, rheumatoid arthritis, asthma, GERD, and depression. Progress of Wound: Courtesy visit. No new concerns at this time. - Physical Exam Vital Signs Temp Pulse Resp BP 98.9 F 93 18 94/64 05/21/19 11:53 05/21/19 11:53 05/21/19 11:53 05/21/19 11:53 General: Alert, Oriented x3, Cooperative, No apparent distress HEENT: Atraumatic, Normocephalic Oral: Moist Mucosa Neck: Supple Lungs: Normal air movement Abdomen: Non Tender, Obese Extremities: No cyanosis, Edema Skin: Ulcer/ Wound Wound Measurements and Assessment WC - Nurse 1 - General Ulcer Measurement Start: 05/07/19 13:49 Freq: Status: Active Protocol: Activity Type Activity Date Activity User E-Sign Co-Sign Detail Recorded Client Recorded Date Recorded By Document 05/21/19 11:53 RB [id number] 05/21/19 12:00 RB 05/21/19 11:53 Wound Center Nurse 1 [Ulcer Assessment] #8 L 5th toe dfu -Combined with other wound No -Current Size (cm) - Length 0.1 -Current Size (cm) - Width 0.1 -Current Size (cm) - Depth 0.1 -Total Square Cm 0.01 -Tunneling No -Undermining/Tunneling No -Circular Undermining No -Exudate Amt Medium -Exudate Type Serosanguineous -Wound Margin Flat & Intact -Granulation Amt Medium (34-66%) -Granulation Quality [place] -Slough/Fibrin Yes -Necrosis Amt Small (1-33%) -Necrotic Tissue Type Adherent Slough -Structure Exposed N/A -Texture (Beatris-wound Skin Appearance) Assessed -Moisture (Beatris-wound Skin Appearance Assessed, ) Maceration -Color (Beatris-wound Skin Appearance) Assessed -Temperature (Beatris-wound Skin No Abnormality Appearance) (Pt Warm) -Tenderness on Palpation (Beatris-wound No Skin Appearance) -Ulcer Cleansing Wound Cleanser -Foul Odor after Cleansing No -Anesthetic Used 4% Lidocaine Solution #7 L 2nd toe dfu -Combined with other wound No -Current Size (cm) - Length 1.2 -Current Size (cm) - Width 1.7 -Current Size (cm) - Depth 0.1 -Total Square Cm 2.04 -Tunneling No -Undermining/Tunneling No -Circular Undermining No -Exudate Amt Small -Exudate Type Serosanguineous -Wound Margin Flat & Intact -Granulation Amt Medium (34-66%) -Granulation Quality [place] -Necrosis Amt Medium (34-66%) -Necrotic Tissue Type Adherent Slough -Structure Exposed N/A -Texture (Beatris-wound Skin Appearance) Assessed -Moisture (Beatris-wound Skin Appearance Maceration ) -Color (Beatris-wound Skin Appearance) Assessed -Temperature (Beatris-wound Skin No Abnormality Appearance) (Pt Warm) -Tenderness on Palpation (Beatris-wound No Skin Appearance) -Ulcer Cleansing Wound Cleanser -Foul Odor after Cleansing No -Anesthetic Used 4% Lidocaine Solution #6 L Hand Cluster -Combined with other wound No -Current Size (cm) - Length 6.4 -Current Size (cm) - Width 7.5 -Current Size (cm) - Depth 0.2 -Total Square Cm 48.00 -Tunneling No -Undermining/Tunneling No -Circular Undermining No -Exudate Amt Medium -Exudate Type Serosanguineous -Wound Margin Flat & Intact -Granulation Amt Medium (34-66%) -Granulation Quality [place] -Slough/Fibrin Yes -Necrosis Amt Small (1-33%) -Necrotic Tissue Type Adherent Slough -Structure Exposed N/A -Texture (Beatris-wound Skin Appearance) Assessed -Moisture (Beatris-wound Skin Appearance Maceration ) -Color (Beatris-wound Skin Appearance) Assessed -Temperature (Beatris-wound Skin No Abnormality Appearance) (Pt Warm) -Tenderness on Palpation (Beatris-wound No Skin Appearance) -Ulcer Cleansing Wound Cleanser -Foul Odor after Cleansing No -Anesthetic Used 4% Lidocaine Solution #5 R Med Cluster -Combined with other wound No -Current Size (cm) - Length 4.4 -Current Size (cm) - Width 1.1 -Current Size (cm) - Depth 0.1 -Total Square Cm 4.84 -Tunneling No -Undermining/Tunneling No -Circular Undermining No -Exudate Amt Small -Exudate Type Serosanguineous -Wound Margin Flat & Intact -Granulation Amt Medium (34-66%) -Granulation Quality [place] -Slough/Fibrin Yes -Necrosis Amt Small (1-33%) -Necrotic Tissue Type Adherent Slough -Structure Exposed N/A -Texture (Beatris-wound Skin Appearance) Assessed -Moisture (Beatris-wound Skin Appearance Assessed, ) Maceration -Color (Beatris-wound Skin Appearance) Assessed -Temperature (Beatris-wound Skin No Abnormality Appearance) (Pt Warm) -Tenderness on Palpation (Beatris-wound No Skin Appearance) -Ulcer Cleansing Wound Cleanser -Foul Odor after Cleansing No -Anesthetic Used 4% Lidocaine Solution #4 R Lat -Combined with other wound No -Current Size (cm) - Length 3.6 -Current Size (cm) - Width 4 -Current Size (cm) - Depth 0.2 -Total Square Cm 14.4 -Tunneling No -Undermining/Tunneling No -Circular Undermining No -Exudate Amt Medium -Exudate Type Serosanguineous -Wound Margin Flat & Intact -Granulation Amt Medium (34-66%) -Granulation Quality [place] -Slough/Fibrin Yes -Necrosis Amt Small (1-33%) -Necrotic Tissue Type Adherent Slough -Structure Exposed N/A -Texture (Beatris-wound Skin Appearance) Assessed -Moisture (Beatris-wound Skin Appearance Assessed, ) Weeping -Color (Beatris-wound Skin Appearance) Assessed -Temperature (Beatris-wound Skin No Abnormality Appearance) (Pt Warm) -Tenderness on Palpation (Beatris-wound No Skin Appearance) -Ulcer Cleansing Wound Cleanser -Foul Odor after Cleansing No -Anesthetic Used 4% Lidocaine Solution [Edema Assessment] -Lower Limb Edema Present Yes -Right Calf (cm) 48.5 -Right Ankle (cm) 23.5 -Left Calf (cm) 49.5 -Left Ankle (cm) 24 Musculoskeletal: No Muscle Wasting Neurological: Cranial nerves II-XII grossly intact Psych/Mental Status: Normal Affect Debridement Note Post-Debridement Measurements/Treatment WC - Nurse 2 - General Ulcer CM Notes Start: 05/07/19 13:49 Freq: Status: Active Protocol: Activity Type Activity Date Activity User E-Sign Co-Sign Detail Recorded Client Recorded Date Recorded By Document 05/07/19 15:01 AN [id number] 05/07/19 15:14 AN Document 05/14/19 15:09 AN [id number] 05/14/19 15:18 AN 05/07/19 05/14/19 15:01 15:09 Wound Center Nurse 2 #8 L 5th toe dfu -Time 15: 15:15 -Correct Patient Yes Yes -Correct Side, Site, Position Yes Yes -Correct Procedure Yes Yes -Procedure Performed Yes Yes -Type of Procedure Debridement Debridement -Clinical Debridement Subcutaneous Subcutaneous -Post Debridement Size (cm) - Length 1 0.5 -Post Debridement Size (cm) - Width 1 0.5 -Post Debridement Size (cm) - Depth 0.2 0.2 -Total Square Cm 1 0.25 -Wound/Ulcer Outcome Not Healed Not Healed -Bleeding Controlled with Pressure -Offloading No -Treatment Response Procedure Tolerated Well #7 L 2nd toe dfu -Time 15: 15:15 -Correct Patient Yes Yes -Correct Side, Site, Position Yes Yes -Correct Procedure Yes Yes -Procedure Performed Yes Yes -Type of Procedure Debridement Debridement -Clinical Debridement Subcutaneous Subcutaneous -Post Debridement Size (cm) - Length 0.9 1.7 -Post Debridement Size (cm) - Width 1.3 1.2 -Post Debridement Size (cm) - Depth 0.2 0.2 -Total Square Cm 1.17 2.04 -Wound/Ulcer Outcome Not Healed Not Healed -Ulcer Cleansing Rinsed/ Irrigated with Saline -Bleeding Controlled with Pressure Pressure -Treatment Response Procedure Procedure Tolerated Well Tolerated Well #6 L Hand Cluster -Time 15:10 15:16 -Correct Patient Yes Yes -Correct Side, Site, Position Yes Yes -Correct Procedure Yes Yes -Procedure Performed Yes Yes -Type of Procedure Debridement Debridement -Clinical Debridement Subcutaneous Subcutaneous -Post Debridement Size (cm) - Length 27 20 -Post Debridement Size (cm) - Width 23 20 -Post Debridement Size (cm) - Depth 0.3 0.3 -Total Square Cm 621 400 -Wound/Ulcer Outcome Not Healed Not Healed -Ulcer Cleansing Rinsed/ Rinsed/ Irrigated with Irrigated with Saline Saline -Bleeding Controlled with Pressure Pressure -Offloading Yes Yes -Treatment Response Procedure Procedure Tolerated Well Tolerated Well #5 R Med Cluster -Time 15:10 15:16 -Correct Patient Yes Yes -Correct Side, Site, Position Yes Yes -Correct Procedure Yes Yes -Procedure Performed Yes Yes -Type of Procedure Debridement Debridement -Clinical Debridement Subcutaneous Subcutaneous -Post Debridement Size (cm) - Length 17 12 -Post Debridement Size (cm) - Width 8 15 -Post Debridement Size (cm) - Depth 0.3 0.3 -Total Square Cm 136 180 -Wound/Ulcer Outcome Not Healed Not Healed -Ulcer Cleansing Rinsed/ Rinsed/ Irrigated with Irrigated with Saline Saline -Foul Odor after Cleansing No -Bioengineered Tissue No -Bleeding Controlled with Pressure Pressure -Offloading Yes -Treatment Response Procedure Procedure Tolerated Well Tolerated Well #4 R Lat -Time 15:08 15:17 -Correct Patient Yes Yes -Correct Side, Site, Position Yes Yes -Correct Procedure Yes Yes -Procedure Performed Yes Yes -Type of Procedure Debridement Debridement -Clinical Debridement Subcutaneous Subcutaneous -Post Debridement Size (cm) - Length 29 4 -Post Debridement Size (cm) - Width 9 4 -Post Debridement Size (cm) - Depth 0.3 0.3 -Total Square Cm 261 16 -Wound/Ulcer Outcome Not Healed Not Healed -Ulcer Cleansing Rinsed/ Irrigated with Saline -Foul Odor after Cleansing No -Bioengineered Tissue No -Bleeding Controlled with Pressure Pressure -Offloading Yes -Treatment Response Procedure Procedure Tolerated Well Tolerated Well Pain Scale: 0-10 Numeric Is Patient Pain Free? Yes Yes Wound debrided: Right lower extremity lateral Type of Debridement: Excisional debridement Anesthesia Used: 4% Lidocaine Solution Depth: Down to and including healthy tissue, in the subcutaneous layer Percentage of wound debrided: 100 Instrument Used: 3mm curette Severity: Fat Layer Exposed Amount of bleeding with debridement: Mild Bleeding Controlled with: Pressure Patient tolerated procedure well - Additional Wound Wound debrided: Left medial cluster Type of Debridement: Excisional debridement Anesthesia Used: 4% Lidocaine Solution Depth: Down to and including healthy tissue, in the subcutaneous layer Percentage of wound debrided: 100 Instrument Used: 5mm curette Tissue Removed: Slough and devitalized tissue Severity: Fat Layer Exposed Amount of bleeding with debridement: Mild Bleeding Controlled with: Pressure Patient tolerated procedure: Patient tolerated procedure well - Additional Wound Wound debrided: Left lateral Type of Debridement: Excisional debridement Anesthesia Used: 4% Lidocaine Solution Depth: Down to and including healthy tissue, in the subcutaneous layer Percentage of wound debrided: 100 Instrument Used: 5mm curette Tissue Removed: Slough and devitalized tissue Severity: Fat Layer Exposed Amount of bleeding with debridement: Mild Bleeding Controlled with: Pressure Patient tolerated procedure: Patient tolerated procedure well - Additional Wound Wound debrided: Left second toe Wound Grade/Stage: Grade 2 Type of Debridement: Excisional debridement Anesthesia Used: 4% Lidocaine Solution Depth: Down to and including healthy tissue, in the subcutaneous layer Percentage of wound debrided: 100 Instrument Used: 5mm curette Tissue Removed: Slough and devitalized tissue Severity: Fat Layer Exposed Amount of bleeding with debridement: Mild Bleeding Controlled with: Pressure Patient tolerated procedure: Patient tolerated procedure well Assessment/Plan Active Problems Nonhealing ulcer of right lower extremity with fat layer exposed (Chronic) Bilateral lower extremity edema (Acute) Decreased pedal pulses (Acute) Chronic stasis dermatitis of left lower extremity (Acute) Venous insufficiency (Acute) Chronic acquired lymphedema (Chronic) Elephantiasis (Acute) Type 2 diabetes mellitus (Acute) Nonhealing ulcer of left lower extremity with fat layer exposed (Acute) Diabetic ulcer of toe of left foot (Acute) left 2nd and 5th dorsal toes rosales grade 2 Assessment: See above diagnoses Plan: Debridement done as documented procedure was well-tolerated. No new concerns at this time. Continue Aquacel Ag to all ulcers. Change daily. Continue increased protein intake, leg elevation, use of compression stockings and optimal diabetes control. Her questions were answered and she was advised to call with any further questions or concerns. Follow-up in a week with Saqib Thomas NP. This note was generated with [facility] dictation software. It may contain incorrect words, spelling, and punctuation that were not noted in checking the note before signing.
[2019-05-25 15:23] VITALS: BP 127/109; PULSE 82; RESP 16; TEMP 37.2; BMI 54.0
[2019-05-28 14:38] VITALS: BP 134/84; PULSE 92; RESP 18; TEMP 37; BMI 54.0
--- NOTE | 2019-05-28 19:52 | PCM.WC.PN ---
(1) Nonhealing ulcer of right lower extremity with fat layer exposed Status: Chronic Code(s): L97.912 - Non-pressure chronic ulcer of unspecified part of right lower leg with fat layer exposed (2) Nonhealing ulcer of left lower extremity with fat layer exposed Status: Acute Code(s): L97.922 - Non-pressure chronic ulcer of unspecified part of left lower leg with fat layer exposed (3) Elephantiasis Status: Acute Code(s): I89.0 - Lymphedema, not elsewhere classified (4) Type 2 diabetes mellitus Status: Acute Code(s): E11.9 - Type 2 diabetes mellitus without complications (5) Diabetic ulcer of toe of left foot Status: Acute Code(s): E11.621 - Type 2 diabetes mellitus with foot ulcer; L97.529 - Non-pressure chronic ulcer of other part of left foot with unspecified severity Comment: left 2nd and 5th dorsal toes stephens grade 2 (6) Bilateral lower extremity edema Status: Acute Code(s): R60.0 - Localized edema (7) Chronic acquired lymphedema Status: Chronic Code(s): I89.0 - Lymphedema, not elsewhere classified (8) Chronic stasis dermatitis of left lower extremity Status: Acute Code(s): I87.2 - Venous insufficiency (chronic) (peripheral) (9) Decreased pedal pulses Status: Acute Code(s): R09.89 - Other specified symptoms and signs involving the circulatory and respiratory systems (10) Venous insufficiency Status: Acute Code(s): I87.2 - Venous insufficiency (chronic) (peripheral) (11) HLD (hyperlipidemia) Status: Chronic Code(s): E78.5 - Hyperlipidemia, unspecified Type of Wound Date of Service: 05/28/19 Chief Complaint: Nonhealing ulcer b/l lower extremity and left toes History of Wound: This is a 68-year-old white female with a past medical history as listed above who presents to the wound healing center today with complaints of nonhealing ulcer to the bilateral lower extremities and left second and fifth toe. She states that these ulcers have been present for the past 4 months. She is well-known to me and has been seen by myself at the wound center in the past. She states she did follow-up as recommended with dermatology and was diagnosed with elephantiasis.she does note that over the course of the last couple months she has been placed on several antibiotics due to surrounding cellulitis, however denies any symptoms of cellulitis at this time. She states that she has dry scaly and reddened skin bilaterally to the lower extremities which causes her to itch all the time and scratch open, she has had ulcerations which in the past she states has become infected. However she denies any signs of infection at this time and denies any fever, purulent exudate, or increasing pain. She does state that she has lymphedema pumps and compression stockings, however she refuses to utilize them at this time due to not thinking that are necessary. She currently resides at [facility]. She does state that she is able to ambulate, however she spends most of her time in a wheelchair. She currently has been using a prescription cream to her bilateral lower extremities. Her past medical history is significant for that of type 2 diabetes mellitus, neuropathy, PVD, rheumatoid arthritis, asthma, GERD, and depression. Progress of Wound: No new concerns at this time. Ulcers appear to be improving in size, x-ray of the left second toe reviewed and was without any acute abnormalities. - Physical Exam Vital Signs Temp Pulse Resp BP 98.6 F 92 18 134/84 H 05/28/19 14:38 05/28/19 14:38 05/28/19 14:38 05/28/19 14:38 General: Alert, Oriented x3, Cooperative, No apparent distress HEENT: Atraumatic Oral: Moist Mucosa Lungs: Clear to auscultation, Normal air movement, No rhonchi, No wheeze Cardiovascular: Regular rate, Regular Rhythm Abdomen: Soft, Non Tender Extremities: No clubbing, No cyanosis, Edema - +1 bilateral lower extremity edema, Peripheral Pulses Normal Skin: Ulcer/ Wound - See nursing documentation, ulcerations to bilateral lower extremities with adherent slough, no signs of infection at this time. Wound Measurements and Assessment WC - Nurse 1 - General Ulcer Measurement Start: 05/07/19 13:49 Freq: Status: Active Protocol: Activity Type Activity Date Activity User E-Sign Co-Sign Detail Recorded Client Recorded Date Recorded By Document 05/28/19 14:38 [facility] [id number] 05/28/19 14:43 [facility] 05/28/19 14:38 Wound Center Nurse 1 [Ulcer Assessment] #7 L 2nd toe dfu -Combined with other wound No -Current Size (cm) - Length 0.8 -Current Size (cm) - Width 0.9 -Current Size (cm) - Depth 0.1 -Total Square Cm 0.72 -Photo Taken No -Epithelialization Small 1-33% -Tunneling No -Undermining/Tunneling No -Circular Undermining No -Exudate Amt Small -Exudate Type Serous -Wound Margin Flat & Intact -Granulation Amt Medium (34-66%) -Granulation Quality Red -Slough/Fibrin Yes -Necrosis Amt Small (1-33%) -Necrotic Tissue Type Adherent Slough -Texture (Beatris-wound Skin Appearance) Assessed, Localized Edema ,Scarring -Moisture (Beatris-wound Skin Appearance Assessed ) -Color (Beatris-wound Skin Appearance) Assessed, Erythema -Temperature (Beatris-wound Skin No Abnormality Appearance) (Pt Warm) -Tenderness on Palpation (Beatris-wound No Skin Appearance) -Ulcer Cleansing Rinsed/ Irrigated with Saline -Foul Odor after Cleansing No -Anesthetic Used 4% Lidocaine Solution #6 L Hand Cluster -Combined with other wound No -Current Size (cm) - Length 1.9 -Current Size (cm) - Width 0.6 -Current Size (cm) - Depth 0.2 -Total Square Cm 1.14 -Photo Taken No -Epithelialization Small 1-33% -Tunneling No -Undermining/Tunneling No -Circular Undermining No -Exudate Amt Small -Exudate Type Serous -Wound Margin Distinct, Outline Attached -Granulation Amt Medium (34-66%) -Granulation Quality [place] -Slough/Fibrin Yes -Necrosis Amt Small (1-33%) -Necrotic Tissue Type Adherent Slough -Texture (Beatris-wound Skin Appearance) Assessed, Scarring -Moisture (Beatris-wound Skin Appearance Assessed,Dry/ ) Scaly -Color (Beatris-wound Skin Appearance) Assessed, Hemosiderin Staining -Temperature (Beatris-wound Skin No Abnormality Appearance) (Pt Warm) -Tenderness on Palpation (Beatris-wound No Skin Appearance) -Ulcer Cleansing Rinsed/ Irrigated with Saline -Foul Odor after Cleansing No -Anesthetic Used 4% Lidocaine Solution #4 R Lat -Combined with other wound No -Current Size (cm) - Length 3.4 -Current Size (cm) - Width 3 -Current Size (cm) - Depth 0.1 -Total Square Cm 10.2 -Photo Taken No -Epithelialization Small 1-33% -Tunneling No -Undermining/Tunneling No -Circular Undermining No -Exudate Amt Small -Exudate Type Serosanguineous -Wound Margin Distinct, Outline Attached -Granulation Amt Medium (34-66%) -Granulation Quality Red -Slough/Fibrin Yes -Necrosis Amt Small (1-33%) -Necrotic Tissue Type Adherent Slough -Texture (Beatris-wound Skin Appearance) Assessed, Scarring -Moisture (Beatris-wound Skin Appearance Assessed,Dry/ ) Scaly -Color (Beatris-wound Skin Appearance) Assessed, Hemosiderin Staining -Temperature (Beatris-wound Skin No Abnormality Appearance) (Pt Warm) -Tenderness on Palpation (Beatris-wound No Skin Appearance) -Ulcer Cleansing Rinsed/ Irrigated with Saline -Foul Odor after Cleansing No -Anesthetic Used 4% Lidocaine Solution [Edema Assessment] -Lower Limb Edema Present Yes -Right Calf (cm) 49 -Right Ankle (cm) 23.5 -Left Calf (cm) 47.9 -Left Ankle (cm) 24 WC - Nurse 2 - General Ulcer CM Notes Start: 05/07/19 13:49 Freq: Status: Active Protocol: Activity Type Activity Date Activity User E-Sign Co-Sign Detail Recorded Client Recorded Date Recorded By Document 05/28/19 15:08 AN [id number] 05/28/19 15:14 AN 05/28/19 15:08 Wound Center Nurse 2 [Procedure/Treatment] #7 L 2nd toe dfu -Time 15:11 -Correct Patient Yes -Correct Side, Site, Position Yes -Correct Procedure Yes -Procedure Performed Yes -Type of Procedure Debridement -Clinical Debridement Subcutaneous -Post Debridement Size (cm) - Length 1.2 -Post Debridement Size (cm) - Width 2.0 -Post Debridement Size (cm) - Depth 0.2 -Total Square Cm 2.40 -Wound/Ulcer Outcome Not Healed -Ulcer Cleansing Rinsed/ Irrigated with Saline -Foul Odor after Cleansing No -Bioengineered Tissue Yes -Type of bioengineered Tissue [id number] -Bleeding Controlled with Pressure -Offloading Yes -Treatment Response Procedure Tolerated Well #6 L Hand Cluster -Time 15:12 -Correct Patient Yes -Correct Side, Site, Position Yes -Correct Procedure Yes -Procedure Performed Yes -Type of Procedure Debridement -Clinical Debridement Subcutaneous -Post Debridement Size (cm) - Length 5.0 -Post Debridement Size (cm) - Width 5.0 -Post Debridement Size (cm) - Depth 0.2 -Total Square Cm 25.00 -Wound/Ulcer Outcome Not Healed -Ulcer Cleansing Rinsed/ Irrigated with Saline -Foul Odor after Cleansing No -Bioengineered Tissue Yes -Type of bioengineered Tissue [id number] -Bleeding Controlled with Pressure -Offloading Yes -Treatment Response Procedure Tolerated Well #4 R Lat -Time 15:12 -Correct Patient Yes -Correct Side, Site, Position Yes -Correct Procedure Yes -Procedure Performed Yes -Type of Procedure Debridement -Clinical Debridement Subcutaneous -Post Debridement Size (cm) - Length 4.5 -Post Debridement Size (cm) - Width 4.5 -Post Debridement Size (cm) - Depth 0.3 -Total Square Cm 20.25 -Wound/Ulcer Outcome Not Healed -Ulcer Cleansing Rinsed/ Irrigated with Saline -Foul Odor after Cleansing No -Bioengineered Tissue Yes -Type of bioengineered Tissue [id number] -Bleeding Controlled with Pressure -Offloading Yes -Treatment Response Procedure Tolerated Well [See Physician Procedure note for Specifics] Pain Scale: 0-10 Numeric [Pain] -Is Patient Pain Free? Yes Neurological: Neuro grossly intact Psych/Mental Status: Normal Affect, Appropriate, Alert and oriented to time, place, person, mood and affect Debridement Note Post-Debridement Measurements/Treatment WC - Nurse 2 - General Ulcer CM Notes Start: 05/07/19 13:49 Freq: Status: Active Protocol: Activity Type Activity Date Activity User E-Sign Co-Sign Detail Recorded Client Recorded Date Recorded By Document 05/07/19 15:01 AN [id number] 05/07/19 15:14 AN Document 05/14/19 15:09 AN [id number] 05/14/19 15:18 AN Document 05/21/19 13:13 [id number] 05/21/19 13:22 Document 05/28/19 15:08 AN [id number] 05/28/19 15:14 AN 05/07/19 05/14/19 05/21/19 15:01 15:09 13:13 Wound Center Nurse 2 #8 L 5th toe dfu -Time 15:09 15:15 13:14 -Correct Patient Yes Yes Yes -Correct Side, Site, Position Yes Yes Yes -Correct Procedure Yes Yes Yes -Procedure Performed Yes Yes No -Type of Procedure Debridement Debridement -Clinical Debridement Subcutaneous Subcutaneous -Post Debridement Size (cm) - Length 1 0.5 0 -Post Debridement Size (cm) - Width 1 0.5 0 -Post Debridement Size (cm) - Depth 0.2 0.2 0 -Total Square Cm 1 0.25 0 -Wound/Ulcer Outcome Not Healed Not Healed Healed- Epithelialized -Bleeding Controlled with Pressure -Offloading No -Treatment Response Procedure Tolerated Well #7 L 2nd toe dfu -Time 15:09 15:15 13:16 -Correct Patient Yes Yes Yes -Correct Side, Site, Position Yes Yes Yes -Correct Procedure Yes Yes Yes -Procedure Performed Yes Yes Yes -Type of Procedure Debridement Debridement Debridement -Clinical Debridement Subcutaneous Subcutaneous Subcutaneous -Post Debridement Size (cm) - Length 0.9 1.7 0.1 -Post Debridement Size (cm) - Width 1.3 1.2 1.1 -Post Debridement Size (cm) - Depth 0.2 0.2 0.1 -Total Square Cm 1.17 2.04 0.11 -Wound/Ulcer Outcome Not Healed Not Healed Not Healed -Ulcer Cleansing Rinsed/ Rinsed/ Irrigated with Irrigated with Saline Saline -Foul Odor after Cleansing No -Bioengineered Tissue No -Type of bioengineered Tissue -Bleeding Controlled with Pressure Pressure Pressure -Offloading Yes -Treatment Response Procedure Procedure Procedure Tolerated Well Tolerated Well Tolerated Well #6 L Hand Cluster -Time 15:10 15:16 13:17 -Correct Patient Yes Yes Yes -Correct Side, Site, Position Yes Yes Yes -Correct Procedure Yes Yes Yes -Procedure Performed Yes Yes Yes -Type of Procedure Debridement Debridement Debridement -Clinical Debridement Subcutaneous Subcutaneous Subcutaneous -Post Debridement Size (cm) - Length 27 20 5.5 -Post Debridement Size (cm) - Width 23 20 3 -Post Debridement Size (cm) - Depth 0.3 0.3 0.1 -Total Square Cm 621 400 16.5 -Wound/Ulcer Outcome Not Healed Not Healed Not Healed -Ulcer Cleansing Rinsed/ Rinsed/ Rinsed/ Irrigated with Irrigated with Irrigated with Saline Saline Saline -Foul Odor after Cleansing No -Bioengineered Tissue No -Type of bioengineered Tissue -Bleeding Controlled with Pressure Pressure Pressure -Offloading Yes Yes Yes -Treatment Response Procedure Procedure Procedure Tolerated Well Tolerated Well Tolerated Well #5 R Med Cluster -Time 15:10 15:16 -Correct Patient Yes Yes Yes -Correct Side, Site, Position Yes Yes Yes -Correct Procedure Yes Yes Yes -Procedure Performed Yes Yes No -Type of Procedure Debridement Debridement -Clinical Debridement Subcutaneous Subcutaneous -Post Debridement Size (cm) - Length 17 12 0 -Post Debridement Size (cm) - Width 8 15 0 -Post Debridement Size (cm) - Depth 0.3 0.3 0 -Total Square Cm 136 180 0 -Wound/Ulcer Outcome Not Healed Not Healed Healed- Epithelialized -Ulcer Cleansing Rinsed/ Rinsed/ Irrigated with Irrigated with Saline Saline -Foul Odor after Cleansing No -Bioengineered Tissue No -Bleeding Controlled with Pressure Pressure -Offloading Yes -Treatment Response Procedure Procedure Tolerated Well Tolerated Well #4 R Lat -Time 15:08 15:17 -Correct Patient Yes Yes -Correct Side, Site, Position Yes Yes -Correct Procedure Yes Yes -Procedure Performed Yes Yes -Type of Procedure Debridement Debridement -Clinical Debridement Subcutaneous Subcutaneous -Post Debridement Size (cm) - Length 29 4 -Post Debridement Size (cm) - Width 9 4 -Post Debridement Size (cm) - Depth 0.3 0.3 -Total Square Cm 261 16 -Wound/Ulcer Outcome Not Healed Not Healed -Ulcer Cleansing Rinsed/ Irrigated with Saline -Foul Odor after Cleansing No -Bioengineered Tissue No -Type of bioengineered Tissue -Bleeding Controlled with Pressure Pressure -Offloading Yes -Treatment Response Procedure Procedure Tolerated Well Tolerated Well Pain Scale: 0-10 Numeric Is Patient Pain Free? Yes Yes Yes 05/28/19 15:08 Wound Center Nurse 2 #8 L 5th toe dfu -Time -Correct Patient -Correct Side, Site, Position -Correct Procedure -Procedure Performed -Type of Procedure -Clinical Debridement -Post Debridement Size (cm) - Length -Post Debridement Size (cm) - Width -Post Debridement Size (cm) - Depth -Total Square Cm -Wound/Ulcer Outcome -Bleeding Controlled with -Offloading -Treatment Response #7 L 2nd toe dfu -Time 15:11 -Correct Patient Yes -Correct Side, Site, Position Yes -Correct Procedure Yes -Procedure Performed Yes -Type of Procedure Debridement -Clinical Debridement Subcutaneous -Post Debridement Size (cm) - Length 1.2 -Post Debridement Size (cm) - Width 2.0 -Post Debridement Size (cm) - Depth 0.2 -Total Square Cm 2.40 -Wound/Ulcer Outcome Not Healed -Ulcer Cleansing Rinsed/ Irrigated with Saline -Foul Odor after Cleansing No -Bioengineered Tissue Yes -Type of bioengineered Tissue [id number] -Bleeding Controlled with Pressure -Offloading Yes -Treatment Response Procedure Tolerated Well #6 L Hand Cluster -Time 15:12 -Correct Patient Yes -Correct Side, Site, Position Yes -Correct Procedure Yes -Procedure Performed Yes -Type of Procedure Debridement -Clinical Debridement Subcutaneous -Post Debridement Size (cm) - Length 5.0 -Post Debridement Size (cm) - Width 5.0 -Post Debridement Size (cm) - Depth 0.2 -Total Square Cm 25.00 -Wound/Ulcer Outcome Not Healed -Ulcer Cleansing Rinsed/ Irrigated with Saline -Foul Odor after Cleansing No -Bioengineered Tissue Yes -Type of bioengineered Tissue [id number] -Bleeding Controlled with Pressure -Offloading Yes -Treatment Response Procedure Tolerated Well #5 R Med Cluster -Time -Correct Patient -Correct Side, Site, Position -Correct Procedure -Procedure Performed -Type of Procedure -Clinical Debridement -Post Debridement Size (cm) - Length -Post Debridement Size (cm) - Width -Post Debridement Size (cm) - Depth -Total Square Cm -Wound/Ulcer Outcome -Ulcer Cleansing -Foul Odor after Cleansing -Bioengineered Tissue -Bleeding Controlled with -Offloading -Treatment Response #4 R Lat -Time 15:12 -Correct Patient Yes -Correct Side, Site, Position Yes -Correct Procedure Yes -Procedure Performed Yes -Type of Procedure Debridement -Clinical Debridement Subcutaneous -Post Debridement Size (cm) - Length 4.5 -Post Debridement Size (cm) - Width 4.5 -Post Debridement Size (cm) - Depth 0.3 -Total Square Cm 20.25 -Wound/Ulcer Outcome Not Healed -Ulcer Cleansing Rinsed/ Irrigated with Saline -Foul Odor after Cleansing No -Bioengineered Tissue Yes -Type of bioengineered Tissue [id number] -Bleeding Controlled with Pressure -Offloading Yes -Treatment Response Procedure Tolerated Well Pain Scale: 0-10 Numeric Is Patient Pain Free? Yes Wound debrided: Right lateral lower extremity ulcer Laterality: Right Type of Debridement: Excisional debridement Anesthesia Used: 5% Lidocaine Gel Depth: in the subcutaneous layer Percentage of wound debrided: 100 Instrument Used: 5mm curette Tissue Removed: Slough and devitalized tissue Severity: Fat Layer Exposed Amount of bleeding with debridement: Mild Bleeding Controlled with: Pressure Patient tolerated procedure well - Additional Wound Wound debrided: Left lower extremity cluster ulcer and second toe DFU Laterality: Left Wound Grade/Stage: Stephens 2 Type of Debridement: Excisional debridement Anesthesia Used: 5% Lidocaine Gel Depth: in the subcutaneous layer Percentage of wound debrided: 100 Instrument Used: 3mm curette, 5mm curette Tissue Removed: Slough and devitalized tissue Severity: Fat Layer Exposed Amount of bleeding with debridement: Mild Bleeding Controlled with: Pressure Patient tolerated procedure: Patient tolerated procedure well Assessment/Plan Assessment: See above diagnoses Plan: Debridement done as documented procedure was well-tolerated. No new concerns at this time. First application of purapply was applied today and secured with wound veil and Steri-Strips, patient will have Unna boots placed over top. She will come back in for change of her Unna boots in 4 days. Continue increased protein intake, leg elevation and optimal diabetes control. Her questions were answered and she was advised to call with any further questions or concerns. Follow-up in a week at wound healing center. This note was generated with [employer] dictation software. It may contain incorrect words, spelling, and punctuation that were not noted in checking the note before signing. Code Visit [id number]: [id number] Skin sub graft trnk/arm/leg
== END 2019-05-28 23:59 ==
LOC: WC 14:30
PROVIDERS: Family Provider Family Medicine; PCP Family Medicine; Visit Provider Nurse Practitioner Family
DX: E11.621 Type 2 diabetes mellitus with foot ulcer (principal); E11.622 Type 2 diabetes mellitus with other skin ulcer; E11.42 Type 2 diabetes mellitus with diabetic polyneuropathy; G47.33 Obstructive sleep apnea (adult) (pediatric); L97.812 Non-pressure chronic ulcer of other part of right lower leg with fat layer exposed; L97.522 Non-pressure chronic ulcer of other part of left foot with fat layer exposed; I89.0 Lymphedema, not elsewhere classified; R60.0 Localized edema; I87.2 Venous insufficiency (chronic) (peripheral); E78.5 Hyperlipidemia, unspecified; E11.51 Type 2 diabetes mellitus with diabetic peripheral angiopathy without gangrene; M06.9 Rheumatoid arthritis, unspecified; J45.909 Unspecified asthma, uncomplicated; K21.9 Gastro-esophageal reflux disease without esophagitis; I10 Essential (primary) hypertension; Z79.899 Other long term (current) drug therapy; Z79.51 Long term (current) use of inhaled steroids; L97.822 Non-pressure chronic ulcer of other part of left lower leg with fat layer exposed; Z91.19 Patient's noncompliance with other medical treatment and regimen
CPT/HCPCS: 11042; 11045; 15271; 15272; 29580; 87070; 87075; 87077; 87186; 87205; 87640; 99212; 99213; Q4196; G0463

== ENCOUNTER 2019-06-24 15:00 | Outpatient (RCR) | payer MEDICARE, MEDICAID, SELFPAY ==
[2019-05-29 01:25] VITALS: BP 134/84; PULSE 92; RESP 18; TEMP 37
[2019-06-01 13:06] VITALS: BP 128/73; PULSE 82; RESP 16; TEMP 37.6; BMI 54.0
[2019-06-04 13:12] VITALS: BP 155/70; PULSE 94; RESP 24; TEMP 37.6; BMI 54.0
--- NOTE | 2019-06-04 18:03 | PN.PCM_ITS ---
(1) Diabetic ulcer of toe of left foot Status: Acute Code(s): E11.621 - Type 2 diabetes mellitus with foot ulcer; L97.529 - Non-pressure chronic ulcer of other part of left foot with unspecified severity Comment: left 2nd and 5th dorsal toes stephens grade 2 (2) Bilateral lower extremity edema Status: Acute Code(s): R60.0 - Localized edema (3) Chronic stasis dermatitis of left lower extremity Status: Acute Code(s): I87.2 - Venous insufficiency (chronic) (peripheral) (4) Decreased pedal pulses Status: Acute Code(s): R09.89 - Other specified symptoms and signs involving the circulatory and respiratory systems (5) Elephantiasis Status: Acute Code(s): I89.0 - Lymphedema, not elsewhere classified (6) Nonhealing ulcer of left lower extremity with fat layer exposed Status: Acute Code(s): L97.922 - Non-pressure chronic ulcer of unspecified part of left lower leg with fat layer exposed (7) Type 2 diabetes mellitus Status: Acute Code(s): E11.9 - Type 2 diabetes mellitus without complications (8) Venous insufficiency Status: Acute Code(s): I87.2 - Venous insufficiency (chronic) (peripheral) (9) Chronic acquired lymphedema Status: Chronic Code(s): I89.0 - Lymphedema, not elsewhere classified (10) HLD (hyperlipidemia) Status: Chronic Code(s): E78.5 - Hyperlipidemia, unspecified (11) Nonhealing ulcer of right lower extremity with fat layer exposed Status: Chronic Code(s): L97.912 - Non-pressure chronic ulcer of unspecified part of right lower leg with fat layer exposed (12) Peripheral neuropathy Status: Chronic Code(s): G62.9 - Polyneuropathy, unspecified Type of Wound Date of Service: 06/04/19 Chief Complaint: Nonhealing ulcer b/l lower extremity and left toes History of Wound: This is a 68-year-old white female with a past medical history as listed above who presents to the wound healing center today with complaints of nonhealing ulcer to the bilateral lower extremities and left second and fifth toe. She states that these ulcers have been present for the past 4 months. She is well-known to me and has been seen by myself at the wound center in the past. She states she did follow-up as recommended with dermatology and was diagnosed with elephantiasis.she does note that over the course of the last couple months she has been placed on several antibiotics due to surrounding cellulitis, however denies any symptoms of cellulitis at this time. She states that she has dry scaly and reddened skin bilaterally to the lower extremities which causes her to itch all the time and scratch open, she has had ulcerations which in the past she states has become infected. However she denies any signs of infection at this time and denies any fever, purulent exudate, or increasing pain. She does state that she has lymphedema pumps and compression stockings, however she refuses to utilize them at this time due to not thinking that are necessary. She currently resides at [facility]. She does state that she is able to ambulate, however she spends most of her time in a wheelchair. She currently has been using a prescription cream to her bilateral lower extremities. Her past medical history is significant for that of type 2 diabetes mellitus, neuropathy, PVD, rheumatoid arthritis, asthma, GERD, and de pression. Progress of Wound: Wounds are improving in size,did well on purapply AM, unfortunately the correction staff took off the product after 4 days for showering.Denies any signs of infection. No worsening pain, has done well on her antibiotic - Physical Exam Vital Signs Temp Pulse Resp BP 99.7 F H 94 24 H 155/70 H 06/04/19 13:12 06/04/19 13:12 06/04/19 13:12 06/04/19 13:12 General: Alert, Oriented x3, Cooperative, No apparent distress HEENT: PERRLA, EOMI Neck: Supple, No JVD Lungs: Clear to auscultation, Normal air movement Cardiovascular: Regular rate, Regular Rhythm Abdomen: Soft, Non Tender Extremities: Capillary Refill Less than 3 Seconds, Diminished Peripheral Pulses, Edema - generalized bilateral lower extremity edema Skin: Ulcer/ Wound - see nursing documentation, adherant slough present, no signs of infection at this time Musculoskeletal: No Tenderness to Palpation of Joints or Extremities, No Muscle Wasting Neurological: Cranial nerves II-XII grossly intact, Neuro grossly intact Psych/Mental Status: Normal Affect, Appropriate, Alert and oriented to time, place, person, mood and affect Debridement Note Post-Debridement Measurements/Treatment WC - Nurse 2 - General Ulcer CM Notes Start: 06/01/19 13:06 Freq: Status: Active Protocol: Activity Type Activity Date Activity User E-Sign Co-Sign Detail Recorded Client Recorded Date Recorded By Document 06/04/19 13:25 CS [id number] 06/04/19 13:34 CS 06/04/19 13:25 Wound Center Nurse 2 #7 L 2nd toe dfu -Time 13:25 -Correct Patient Yes -Correct Side, Site, Position Yes -Correct Procedure Yes -Procedure Performed Yes -Type of Procedure Debridement -Clinical Debridement Subcutaneous -Post Debridement Size (cm) - Length 1.0 -Post Debridement Size (cm) - Width 1.5 -Post Debridement Size (cm) - Depth 0.1 -Total Square Cm 1.50 -Wound/Ulcer Outcome Not Healed -Ulcer Cleansing Not Cleansed -Foul Odor after Cleansing No -Bioengineered Tissue Yes -Type of bioengineered Tissue [id number] -Expiration Date 08/02/21 -Product Lot Number [id number] -Percent Used 25 -Bleeding Controlled with NA -Offloading No -Treatment Response Procedure Tolerated Well #6 L Hand Cluster -Time 13:26 -Correct Patient Yes -Correct Side, Site, Position Yes -Correct Procedure Yes -Procedure Performed Yes -Type of Procedure Debridement -Clinical Debridement Subcutaneous -Post Debridement Size (cm) - Length 4.5 -Post Debridement Size (cm) - Width 4.0 -Post Debridement Size (cm) - Depth 0.2 -Total Square Cm 18.00 -Wound/Ulcer Outcome Not Healed -Ulcer Cleansing Not Cleansed -Foul Odor after Cleansing No -Bioengineered Tissue Yes -Type of bioengineered Tissue [id number] -Expiration Date 08/02/21 -Product Lot Number [id number] -Percent Used 40 -Bleeding Controlled with NA -Offloading No -Treatment Response Procedure Tolerated Well #4 R Lat -Time 13:26 -Correct Patient Yes -Correct Side, Site, Position Yes -Correct Procedure Yes -Procedure Performed Yes -Type of Procedure Debridement -Clinical Debridement Subcutaneous -Post Debridement Size (cm) - Length 3.0 -Post Debridement Size (cm) - Width 3.0 -Post Debridement Size (cm) - Depth 0.1 -Total Square Cm 9.00 -Wound/Ulcer Outcome Not Healed -Ulcer Cleansing Not Cleansed -Foul Odor after Cleansing No -Bioengineered Tissue Yes -Type of bioengineered Tissue [id number] -Expiration Date 08/02/21 -Product Lot Number [id number] -Percent Used 35 -Bleeding Controlled with NA -Offloading No -Treatment Response Procedure Tolerated Well Pain Scale: 0-10 Numeric Is Patient Pain Free? Yes Wound debrided: right lower extremity venous leg ulcer Laterality: Right Type of Debridement: Excisional debridement Anesthesia Used: 5% Lidocaine Gel Depth: in the subcutaneous layer Percentage of wound debrided: 100 Instrument Used: 7mm curette Tissue Removed: slough and devitalized tissue Severity: Fat Layer Exposed Amount of bleeding with debridement: Mild Bleeding Controlled with: Pressure Patient tolerated procedure well - Additional Wound Wound debrided: left second toe DFU and left lower extremity cluster ulcer Laterality: Left Wound Grade/Stage: Stephens 2 Type of Debridement: Excisional debridement Anesthesia Used: 5% Lidocaine Gel Depth: in the subcutaneous layer Percentage of wound debrided: 100 Instrument Used: 3mm curette, 7mm curette Tissue Removed: slough and devitalized tissue Severity: Fat Layer Exposed Amount of bleeding with debridement: Mild Bleeding Controlled with: Pressure Patient tolerated procedure: Patient tolerated procedure well Assessment/Plan Assessment: See above diagnoses Plan: Debridement done as documented procedure was well-tolerated. No new concerns at this time. Second application of purapply was applied today and secured with wound veil and Steri-Strips,100 percent used, patient will have Unna boots placed over top. She will come back in for change of her Unna boots in 4 days. Instructed not to have product taken off during UNNA change. Continue increased protein intake, leg elevation and optimal diabetes control. Her questions were answered and she was advised to call with any further questions or concerns. Follow-up in a week at wound healing center. This note was generated with [employer] software. It may contain incorrect words, spelling, and punctuation that were not noted in checking the note before signing. Code Visit [id number]: [id number] Skin sub graft trnk/arm/leg
[2019-06-11 13:26] VITALS: BP 165/73; PULSE 93; RESP 18; TEMP 36.6; BMI 54.0
--- NOTE | 2019-06-11 17:11 | PN.PCM_ITS ---
(1) Diabetic ulcer of toe of left foot Status: Acute Code(s): E11.621 - Type 2 diabetes mellitus with foot ulcer; L97.529 - Non-pressure chronic ulcer of other part of left foot with unspecified severity Comment: left 2nd and 5th dorsal toes rosales grade 2 (2) Bilateral lower extremity edema Status: Acute Code(s): R60.0 - Localized edema (3) Chronic stasis dermatitis of left lower extremity Status: Acute Code(s): I87.2 - Venous insufficiency (chronic) (peripheral) (4) Decreased pedal pulses Status: Acute Code(s): R09.89 - Other specified symptoms and signs involving the circulatory and respiratory systems (5) Elephantiasis Status: Acute Code(s): I89.0 - Lymphedema, not elsewhere classified (6) Nonhealing ulcer of left lower extremity with fat layer exposed Status: Acute Code(s): L97.922 - Non-pressure chronic ulcer of unspecified part of left lower leg with fat layer exposed (7) Type 2 diabetes mellitus Status: Acute Code(s): E11.9 - Type 2 diabetes mellitus without complications (8) Venous insufficiency Status: Acute Code(s): I87.2 - Venous insufficiency (chronic) (peripheral) (9) Chronic acquired lymphedema Status: Chronic Code(s): I89.0 - Lymphedema, not elsewhere classified (10) HLD (hyperlipidemia) Status: Chronic Code(s): E78.5 - Hyperlipidemia, unspecified (11) Nonhealing ulcer of right lower extremity with fat layer exposed Status: Chronic Code(s): L97.912 - Non-pressure chronic ulcer of unspecified part of right lower leg with fat layer exposed (12) Peripheral neuropathy Status: Chronic Code(s): G62.9 - Polyneuropathy, unspecified Type of Wound Date of Service: 06/11/19 Chief Complaint: Nonhealing ulcer b/l lower extremity and left toes History of Wound: This is a 68-year-old white female with a past medical history as listed above who presents to the wound healing center today with complaints of nonhealing ulcer to the bilateral lower extremities and left second and fifth toe. She states that these ulcers have been present for the past 4 months. She is well-known to me and has been seen by myself at the wound center in the past. She states she did follow-up as recommended with dermatology and was diagnosed with elephantiasis.she does note that over the course of the last couple months she has been placed on several antibiotics due to surrounding cellulitis, however denies any symptoms of cellulitis at this time. She states that she has dry scaly and reddened skin bilaterally to the lower extremities which causes her to itch all the time and scratch open, she has had ulcerations which in the past she states has become infected. However she denies any signs of infection at this time and denies any fever, purulent exudate, or increasing pain. She does state that she has lymphedema pumps and compression stockings, however she refuses to utilize them at this time due to not thinking that are necessary. She currently resides at [facility]. She does state that she is able to ambulate, however she spends most of her time in a wheelchair. She currently has been using a prescription cream to her bilateral lower extremities. Her past medical history is significant for that of type 2 diabetes mellitus, neuropathy, PVD, rheumatoid arthritis, asthma, GERD, and de pression. Progress of Wound: Wounds are improving in size,did well on purapply AM, Denies any signs of infection. No worsening pain - Physical Exam Vital Signs Temp Pulse Resp BP 97.8 F 93 18 165/73 H 06/11/19 13:26 06/11/19 13:26 06/11/19 13:26 06/11/19 13:26 General: Alert, Oriented x3, Cooperative, No apparent distress HEENT: Atraumatic Oral: Moist Mucosa Lungs: Clear to auscultation, Normal air movement Cardiovascular: Regular rate, Regular Rhythm Abdomen: Soft, Non Tender, Obese Extremities: No clubbing, No cyanosis, Edema - +1 bilateral lower extremity edema Skin: Ulcer/ Wound - Ulcerations to bilateral lower extremities with adherent slough, no signs of infection at this time, ulceration to left second toe with adherent slough, no signs of infection Neurological: Neuro grossly intact Psych/Mental Status: Normal Affect, Appropriate, Alert and oriented to time, place, person, mood and affect Debridement Note Post-Debridement Measurements/Treatment WC - Nurse 2 - General Ulcer CM Notes Start: 06/01/19 13:06 Freq: Status: Active Protocol: Activity Type Activity Date Activity User E-Sign Co-Sign Detail Recorded Client Recorded Date Recorded By Document 06/04/19 13:25 CS [id number] 06/04/19 13:34 CS Document 06/11/19 14:03 [id number] 06/11/19 14:10 MD Document 06/11/19 14:10 [id number] 06/11/19 14:20 06/04/19 06/11/19 06/11/19 13:25 14:03 14:10 Wound Center Nurse 2 #7 L 2nd toe dfu -Time 13:25 14:11 -Correct Patient Yes Yes -Correct Side, Site, Position Yes Yes -Correct Procedure Yes Yes -Procedure Performed Yes Yes -Type of Procedure Debridement Debridement -Clinical Debridement Subcutaneous Subcutaneous -Post Debridement Size (cm) - Length 1.0 0.5 -Post Debridement Size (cm) - Width 1.5 1 -Post Debridement Size (cm) - Depth 0.1 0.1 -Total Square Cm 1.50 0.5 -Wound/Ulcer Outcome Not Healed Not Healed -Ulcer Cleansing Not Cleansed Rinsed/ Irrigated with Saline -Foul Odor after Cleansing No No -Bioengineered Tissue Yes Yes -Type of bioengineered Tissue [id number] -Expiration Date 08/02/21 08/21/21 -Product Lot Number [id number] -Percent Used 25 100 -Saline Lot Number [id number] -Bleeding Controlled with NA Pressure -Offloading No Yes -Treatment Response Procedure Procedure Tolerated Well Tolerated Well #6 L Hand Cluster -Time 13:26 14:16 -Correct Patient Yes Yes -Correct Side, Site, Position Yes Yes -Correct Procedure Yes Yes -Procedure Performed Yes Yes -Type of Procedure Debridement Debridement -Clinical Debridement Subcutaneous Subcutaneous -Post Debridement Size (cm) - Length 4.5 3.3 -Post Debridement Size (cm) - Width 4.0 2.5 -Post Debridement Size (cm) - Depth 0.2 0.2 -Total Square Cm 18.00 8.25 -Wound/Ulcer Outcome Not Healed Not Healed -Ulcer Cleansing Not Cleansed Rinsed/ Irrigated with Saline -Foul Odor after Cleansing No No -Bioengineered Tissue Yes Yes -Type of bioengineered Tissue [id number] -Expiration Date 08/02/21 08/21/21 -Product Lot Number [id number] -Percent Used 40 100 -Saline Lot Number [id number] -Bleeding Controlled with NA Pressure -Offloading No Yes -Treatment Response Procedure Procedure Tolerated Well Tolerated Well #4 R Lat -Time 13:26 14:18 -Correct Patient Yes Yes -Correct Side, Site, Position Yes Yes -Correct Procedure Yes Yes -Procedure Performed Yes Yes -Type of Procedure Debridement Debridement -Clinical Debridement Subcutaneous Subcutaneous -Post Debridement Size (cm) - Length 3.0 2.5 -Post Debridement Size (cm) - Width 3.0 2 -Post Debridement Size (cm) - Depth 0.1 0.1 -Total Square Cm 9.00 5.0 -Wound/Ulcer Outcome Not Healed Not Healed -Ulcer Cleansing Not Cleansed Rinsed/ Irrigated with Saline -Foul Odor after Cleansing No No -Bioengineered Tissue Yes Yes -Type of bioengineered Tissue [id number] -Expiration Date 08/02/21 08/21/21 -Product Lot Number [id number] -Percent Used 35 100 -Saline Lot Number [id number] -Bleeding Controlled with NA Pressure -Offloading No Yes -Treatment Response Procedure Procedure Tolerated Well Tolerated Well Pain Scale: 0-10 Numeric Is Patient Pain Free? Yes Yes Yes Wound debrided: Bilateral lower extremity venous leg ulcers Type of Debridement: Excisional debridement Anesthesia Used: 5% Lidocaine Gel Depth: in the subcutaneous layer Percentage of wound debrided: 100 Instrument Used: 7mm curette Tissue Removed: Slough and devitalized tissue Severity: Fat Layer Exposed Amount of bleeding with debridement: Mild Bleeding Controlled with: Pressure Patient tolerated procedure well - Additional Wound Wound debrided: Second toe Kayla grade 2 DFU Laterality: Left Type of Debridement: Excisional debridement Anesthesia Used: 5% Lidocaine Gel Depth: in the subcutaneous layer Percentage of wound debrided: 100 Instrument Used: 3mm curette Tissue Removed: Slough and devitalized tissue Severity: Fat Layer Exposed Amount of bleeding with debridement: Mild Bleeding Controlled with: Pressure Patient tolerated procedure: Patient tolerated procedure well Assessment/Plan Assessment: See above diagnoses Plan: Debridement done as documented procedure was well-tolerated. No new concerns at this time. Third application of purapply was applied today and secured with wound veil and Steri-Strips,100 percent used, patient will have Unna boots placed over top. She will come back in for change of her Unna boots in 4 days. Instructed not to have product taken off during UNNA change. Continue increased protein intake, leg elevation and optimal diabetes control. Her questions were answered and she was advised to call with any further questions or concerns. Follow-up in a week at wound healing center. This note was generated with [employer] dictation software. It may contain incorrect words, spelling, and punctuation that were not noted in checking the note before signing. Code Visit [id number]: [id number] Skin sub graft trnk/arm/leg
[2019-06-18 14:21] VITALS: BP 115/64; PULSE 87; RESP 18; TEMP 36.9; BMI 54.0
--- NOTE | 2019-06-18 19:53 | PCM.WC.PN ---
(1) Diabetic ulcer of toe of left foot Status: Acute Code(s): E11.621 - Type 2 diabetes mellitus with foot ulcer; L97.529 - Non-pressure chronic ulcer of other part of left foot with unspecified severity Comment: left 2nd and 5th dorsal toes stephens grade 2 (2) Bilateral lower extremity edema Status: Acute Code(s): R60.0 - Localized edema (3) Chronic stasis dermatitis of left lower extremity Status: Acute Code(s): I87.2 - Venous insufficiency (chronic) (peripheral) (4) Decreased pedal pulses Status: Acute Code(s): R09.89 - Other specified symptoms and signs involving the circulatory and respiratory systems (5) Elephantiasis Status: Acute Code(s): I89.0 - Lymphedema, not elsewhere classified (6) Nonhealing ulcer of left lower extremity with fat layer exposed Status: Acute Code(s): L97.922 - Non-pressure chronic ulcer of unspecified part of left lower leg with fat layer exposed (7) Type 2 diabetes mellitus Status: Acute Code(s): E11.9 - Type 2 diabetes mellitus without complications (8) Venous insufficiency Status: Acute Code(s): I87.2 - Venous insufficiency (chronic) (peripheral) (9) Chronic acquired lymphedema Status: Chronic Code(s): I89.0 - Lymphedema, not elsewhere classified (10) HLD (hyperlipidemia) Status: Chronic Code(s): E78.5 - Hyperlipidemia, unspecified (11) Nonhealing ulcer of right lower extremity with fat layer exposed Status: Chronic Code(s): L97.912 - Non-pressure chronic ulcer of unspecified part of right lower leg with fat layer exposed (12) Peripheral neuropathy Status: Chronic Code(s): G62.9 - Polyneuropathy, unspecified Type of Wound Date of Service: 06/18/19 Chief Complaint: Nonhealing ulcer b/l lower extremity and left toes History of Wound: This is a 68-year-old white female with a past medical history as listed above who presents to the wound healing center today with complaints of nonhealing ulcer to the bilateral lower extremities and left second and fifth toe. She states that these ulcers have been present for the past 4 months. She is well-known to me and has been seen by myself at the wound center in the past. She states she did follow-up as recommended with dermatology and was diagnosed with elephantiasis.she does note that over the course of the last couple months she has been placed on several antibiotics due to surrounding cellulitis, however denies any symptoms of cellulitis at this time. She states that she has dry scaly and reddened skin bilaterally to the lower extremities which causes her to itch all the time and scratch open, she has had ulcerations which in the past she states has become infected. However she denies any signs of infection at this time and denies any fever, purulent exudate, or increasing pain. She does state that she has lymphedema pumps and compression stockings, however she refuses to utilize them at this time due to not thinking that are necessary. She currently resides at [facility]. She does state that she is able to ambulate, however she spends most of her time in a wheelchair. She currently has been using a prescription cream to her bilateral lower extremities. Her past medical history is significant for that of type 2 diabetes mellitus, neuropathy, PVD, rheumatoid arthritis, asthma, GERD, and depression. Progress of Wound: Left and right Lower leg ulcerations healed at this time,did well on purapply AM, Denies any signs of infection. No worsening pain - Physical Exam Vital Signs Temp Pulse Resp BP 98.4 F 87 18 115/64 06/18/19 14:21 06/18/19 14:21 06/18/19 14:21 06/18/19 14:21 General: Alert, Oriented x3, Cooperative, No apparent distress HEENT: Atraumatic, PERRLA Oral: Moist Mucosa Neck: Supple Lungs: Clear to auscultation, Normal air movement Cardiovascular: Regular rate, Regular Rhythm Abdomen: Soft, Non Tender, Obese Extremities: No clubbing, No cyanosis, Edema - Generalized bilateral lower extremity edema Skin: Ulcer/ Wound - See nursing documentation, left second toe DFU with adherent slough, no signs of infection Neurological: Neuro grossly intact Psych/Mental Status: Normal Affect, Appropriate, Alert and oriented to time, place, person, mood and affect Debridement Note Post-Debridement Measurements/Treatment WC - Nurse 2 - General Ulcer CM Notes Start: 06/01/19 13:06 Freq: Status: Active Protocol: Activity Type Activity Date Activity User E-Sign Co-Sign Detail Recorded Client Recorded Date Recorded By Document 06/04/19 13:25 CS [id number] 06/04/19 13:34 CS Document 06/11/19 14:03 [id number] 06/11/19 14:10 MD Document 06/11/19 14:10 MD [id number] 06/11/19 14:20 MD Document 06/18/19 14:44 DV [id number] 06/18/19 14:57 DV 06/04/19 06/11/19 06/11/19 13:25 14:03 14:10 Wound Center Nurse 2 #7 L 2nd toe dfu -Time 13:25 14:11 -Correct Patient Yes Yes -Correct Side, Site, Position Yes Yes -Correct Procedure Yes Yes -Procedure Performed Yes Yes -Type of Procedure Debridement Debridement -Clinical Debridement Subcutaneous Subcutaneous -Post Debridement Size (cm) - Length 1.0 0.5 -Post Debridement Size (cm) - Width 1.5 1 -Post Debridement Size (cm) - Depth 0.1 0.1 -Total Square Cm 1.50 0.5 -Wound/Ulcer Outcome Not Healed Not Healed -Ulcer Cleansing Not Cleansed Rinsed/ Irrigated with Saline -Foul Odor after Cleansing No No -Bioengineered Tissue Yes Yes -Type of bioengineered Tissue [id number] -Expiration Date 08/02/21 08/21/21 -Product Lot Number [id number] -Percent Used 25 100 -Saline Lot Number [id number] -Bleeding Controlled with NA Pressure -Offloading No Yes -Treatment Response Procedure Procedure Tolerated Well Tolerated Well #6 L Hand Cluster -Time 13:26 14:16 -Correct Patient Yes Yes -Correct Side, Site, Position Yes Yes -Correct Procedure Yes Yes -Procedure Performed Yes Yes -Type of Procedure Debridement Debridement -Clinical Debridement Subcutaneous Subcutaneous -Post Debridement Size (cm) - Length 4.5 3.3 -Post Debridement Size (cm) - Width 4.0 2.5 -Post Debridement Size (cm) - Depth 0.2 0.2 -Total Square Cm 18.00 8.25 -Wound/Ulcer Outcome Not Healed Not Healed -Ulcer Cleansing Not Cleansed Rinsed/ Irrigated with Saline -Foul Odor after Cleansing No No -Bioengineered Tissue Yes Yes -Type of bioengineered Tissue [id number] -Expiration Date 08/02/21 08/21/21 -Product Lot Number [id number] -Percent Used 40 100 -Saline Lot Number [id number] -Bleeding Controlled with NA Pressure -Offloading No Yes -Treatment Response Procedure Procedure Tolerated Well Tolerated Well #4 R Lat -Time 13:26 14:18 -Correct Patient Yes Yes -Correct Side, Site, Position Yes Yes -Correct Procedure Yes Yes -Procedure Performed Yes Yes -Type of Procedure Debridement Debridement -Clinical Debridement Subcutaneous Subcutaneous -Post Debridement Size (cm) - Length 3.0 2.5 -Post Debridement Size (cm) - Width 3.0 2 -Post Debridement Size (cm) - Depth 0.1 0.1 -Total Square Cm 9.00 5.0 -Wound/Ulcer Outcome Not Healed Not Healed -Ulcer Cleansing Not Cleansed Rinsed/ Irrigated with Saline -Foul Odor after Cleansing No No -Bioengineered Tissue Yes Yes -Type of bioengineered Tissue [id number] -Expiration Date 08/02/21 08/21/21 -Product Lot Number [id number] -Percent Used 35 100 -Saline Lot Number [id number] -Bleeding Controlled with NA Pressure -Offloading No Yes -Treatment Response Procedure Procedure Tolerated Well Tolerated Well Pain Scale: 0-10 Numeric Is Patient Pain Free? Yes Yes Yes 06/18/19 14:44 Wound Center Nurse 2 #7 L 2nd toe dfu -Time 14:46 -Correct Patient Yes -Correct Side, Site, Position Yes -Correct Procedure Yes -Procedure Performed Yes -Type of Procedure Debridement -Clinical Debridement Subcutaneous -Post Debridement Size (cm) - Length 0.5 -Post Debridement Size (cm) - Width 1.0 -Post Debridement Size (cm) - Depth 0.1 -Total Square Cm 0.50 -Wound/Ulcer Outcome Not Healed -Ulcer Cleansing Rinsed/ Irrigated with Saline -Foul Odor after Cleansing No -Bioengineered Tissue No -Type of bioengineered Tissue NU-SHIELD -Expiration Date 01/03/24 -Product Lot Number [id number] -Percent Used 10 -Saline Lot Number -Bleeding Controlled with Pressure -Offloading Yes -Treatment Response Procedure Tolerated Well #6 L Hand Cluster -Time 14:52 -Correct Patient Yes -Correct Side, Site, Position Yes -Correct Procedure No -Procedure Performed No -Type of Procedure -Clinical Debridement -Post Debridement Size (cm) - Length 0 -Post Debridement Size (cm) - Width 0 -Post Debridement Size (cm) - Depth 0 -Total Square Cm 0 -Wound/Ulcer Outcome Healed- Epithelialized -Ulcer Cleansing -Foul Odor after Cleansing -Bioengineered Tissue -Type of bioengineered Tissue -Expiration Date -Product Lot Number -Percent Used -Saline Lot Number -Bleeding Controlled with -Offloading -Treatment Response #4 R Lat -Time 14:53 -Correct Patient Yes -Correct Side, Site, Position Yes -Correct Procedure No -Procedure Performed No -Type of Procedure -Clinical Debridement -Post Debridement Size (cm) - Length 0 -Post Debridement Size (cm) - Width 0 -Post Debridement Size (cm) - Depth 0 -Total Square Cm 0 -Wound/Ulcer Outcome Healed- Epithelialized -Ulcer Cleansing -Foul Odor after Cleansing -Bioengineered Tissue -Type of bioengineered Tissue -Expiration Date -Product Lot Number -Percent Used -Saline Lot Number -Bleeding Controlled with -Offloading -Treatment Response Pain Scale: 0-10 Numeric Is Patient Pain Free? Yes Wound debrided: Left second toe DFU Stephens 2 Type of Debridement: Excisional debridement Anesthesia Used: 5% Lidocaine Gel Depth: in the subcutaneous layer Percentage of wound debrided: 100 Instrument Used: 3mm curette Tissue Removed: Slough and devitalized tissue Severity: Fat Layer Exposed Amount of bleeding with debridement: Mild Bleeding Controlled with: Pressure Patient tolerated procedure well Assessment/Plan Assessment: See above diagnoses Plan: Debridement done as documented procedure was well-tolerated. No new concerns at this time. First application of nushield was applied today and secured with wound veil and Steri-Strips,100 percent used, patient will have Unna boots For compression. She will come back in for change of her Unna boots in 1 week. Continue increased protein intake, leg elevation and optimal diabetes control. Her questions were answered and she was advised to call with any further questions or concerns. Follow-up in a week at wound healing center. This note was generated with [employer] software. It may contain incorrect words, spelling, and punctuation that were not noted in checking the note before signing. Code Visit [id number]: 41802 Skin sub graft trnk/arm/leg
[2019-06-24 15:09] VITALS: BP 154/86; PULSE 90; RESP 22; TEMP 36.2; BMI 54.0
--- NOTE | 2019-06-24 20:55 | PN.PCM_ITS ---
(1) Diabetic ulcer of toe of left foot Status: Acute Code(s): E11.621 - Type 2 diabetes mellitus with foot ulcer; L97.529 - Non-pressure chronic ulcer of other part of left foot with unspecified severity Comment: left 2nd and 5th dorsal toes rosales grade 2 (2) Bilateral lower extremity edema Status: Acute Code(s): R60.0 - Localized edema (3) Chronic stasis dermatitis of left lower extremity Status: Acute Code(s): I87.2 - Venous insufficiency (chronic) (peripheral) (4) Decreased pedal pulses Status: Acute Code(s): R09.89 - Other specified symptoms and signs involving the circulatory and respiratory systems (5) Elephantiasis Status: Acute Code(s): I89.0 - Lymphedema, not elsewhere classified (6) Nonhealing ulcer of left lower extremity with fat layer exposed Status: Acute Code(s): L97.922 - Non-pressure chronic ulcer of unspecified part of left lower leg with fat layer exposed (7) Type 2 diabetes mellitus Status: Acute Code(s): E11.9 - Type 2 diabetes mellitus without complications (8) Venous insufficiency Status: Acute Code(s): I87.2 - Venous insufficiency (chronic) (peripheral) (9) Chronic acquired lymphedema Status: Chronic Code(s): I89.0 - Lymphedema, not elsewhere classified (10) HLD (hyperlipidemia) Status: Chronic Code(s): E78.5 - Hyperlipidemia, unspecified (11) Nonhealing ulcer of right lower extremity with fat layer exposed Status: Chronic Code(s): L97.912 - Non-pressure chronic ulcer of unspecified part of right lower leg with fat layer exposed (12) Peripheral neuropathy Status: Chronic Code(s): G62.9 - Polyneuropathy, unspecified Type of Wound Date of Service: 06/24/19 Chief Complaint: Nonhealing ulcer b/l lower extremity and left toes History of Wound: This is a 68-year-old white female with a past medical history as listed above who presents to the wound healing center today with complaints of nonhealing ulcer to the bilateral lower extremities and left second and fifth toe. She states that these ulcers have been present for the past 4 months. She is well-known to me and has been seen by myself at the wound center in the past. She states she did follow-up as recommended with dermatology and was diagnosed with elephantiasis.she does note that over the course of the last couple months she has been placed on several antibiotics due to surrounding cellulitis, however denies any symptoms of cellulitis at this time. She states that she has dry scaly and reddened skin bilaterally to the lower extremities which causes her to itch all the time and scratch open, she has had ulcerations which in the past she states has become infected. However she denies any signs of infection at this time and denies any fever, purulent exudate, or increasing pain. She does state that she has lymphedema pumps and compression stockings, however she refuses to utilize them at this time due to not thinking that are necessary. She currently resides at [facility]. She does state that she is able to ambulate, however she spends most of her time in a wheelchair. She currently has been using a prescription cream to her bilateral lower extremities. Her past medical history is significant for that of type 2 diabetes mellitus, neuropathy, PVD, rheumatoid arthritis, asthma, GERD, and de pression. Progress of Wound: Left and right Lower leg ulcerations remain healed at this time,did well on [facility] for left 2nd toe DFU, Denies any signs of infection. No worsening pain - Physical Exam Vital Signs Temp Pulse Resp BP 97.2 F L 90 22 H 154/86 H 06/24/19 15:09 06/24/19 15:09 06/24/19 15:09 06/24/19 15:09 General: Alert, Oriented x3, Cooperative, No apparent distress HEENT: Atraumatic Oral: Moist Mucosa Lungs: Clear to auscultation, Normal air movement Cardiovascular: Regular rate, Regular Rhythm Abdomen: Soft, Obese Extremities: No clubbing, No cyanosis, Edema - +1 bilateral lower extremity edema Skin: Ulcer/ Wound - Ulceration to left second toe with adherent slough, no signs of infection at this time Neurological: Neuro grossly intact Psych/Mental Status: Normal Affect, Appropriate, Alert and oriented to time, place, person, mood and affect Debridement Note Post-Debridement Measurements/Treatment WC - Nurse 2 - General Ulcer CM Notes Start: 06/01/19 13:06 Freq: Status: Active Protocol: Activity Type Activity Date Activity User E-Sign Co-Sign Detail Recorded Client Recorded Date Recorded By Document 11/07/19 13:25 CS [id number] 06/04/19 13:34 CS Document 06/11/19 14:03 [id number] 06/11/19 14:10 MD Document 06/11/19 14:10 MD [id number] 06/11/19 14:20 MD Document 06/18/19 14:44 DV [id number] 06/18/19 14:57 DV Document 06/24/19 15:21 DL [id number] 06/24/19 15:29 DL 06/04/19 06/11/19 06/11/19 13:25 14:03 14:10 Wound Center Nurse 2 #7 L 2nd toe dfu -Time 13:25 14:11 -Correct Patient Yes Yes -Correct Side, Site, Position Yes Yes -Correct Procedure Yes Yes -Procedure Performed Yes Yes -Type of Procedure Debridement Debridement -Clinical Debridement Subcutaneous Subcutaneous -Post Debridement Size (cm) - Length 1.0 0.5 -Post Debridement Size (cm) - Width 1.5 1 -Post Debridement Size (cm) - Depth 0.1 0.1 -Total Square Cm 1.50 0.5 -Wound/Ulcer Outcome Not Healed Not Healed -Ulcer Cleansing Not Cleansed Rinsed/ Irrigated with Saline -Foul Odor after Cleansing No No -Bioengineered Tissue Yes Yes -Type of bioengineered Tissue [id number] -Expiration Date 08/02/21 08/21/21 -Product Lot Number [id number] -Percent Used 25 100 -Saline Lot Number [id number] -Bleeding Controlled with NA Pressure -Offloading No Yes -Treatment Response Procedure Procedure Tolerated Well Tolerated Well #6 L Hand Cluster -Time 13:26 14:16 -Correct Patient Yes Yes -Correct Side, Site, Position Yes Yes -Correct Procedure Yes Yes -Procedure Performed Yes Yes -Type of Procedure Debridement Debridement -Clinical Debridement Subcutaneous Subcutaneous -Post Debridement Size (cm) - Length 4.5 3.3 -Post Debridement Size (cm) - Width 4.0 2.5 -Post Debridement Size (cm) - Depth 0.2 0.2 -Total Square Cm 18.00 8.25 -Wound/Ulcer Outcome Not Healed Not Healed -Ulcer Cleansing Not Cleansed Rinsed/ Irrigated with Saline -Foul Odor after Cleansing No No -Bioengineered Tissue Yes Yes -Type of bioengineered Tissue [id number] -Expiration Date 08/02/21 08/21/21 -Product Lot Number [id number] -Percent Used 40 100 -Saline Lot Number [id number] -Bleeding Controlled with NA Pressure -Offloading No Yes -Treatment Response Procedure Procedure Tolerated Well Tolerated Well #4 R Lat -Time 13:26 14:18 -Correct Patient Yes Yes -Correct Side, Site, Position Yes Yes -Correct Procedure Yes Yes -Procedure Performed Yes Yes -Type of Procedure Debridement Debridement -Clinical Debridement Subcutaneous Subcutaneous -Post Debridement Size (cm) - Length 3.0 2.5 -Post Debridement Size (cm) - Width 3.0 2 -Post Debridement Size (cm) - Depth 0.1 0.1 -Total Square Cm 9.00 5.0 -Wound/Ulcer Outcome Not Healed Not Healed -Ulcer Cleansing Not Cleansed Rinsed/ Irrigated with Saline -Foul Odor after Cleansing No No -Bioengineered Tissue Yes Yes -Type of bioengineered Tissue [id number] -Expiration Date 08/02/21 08/21/21 -Product Lot Number [id number] -Percent Used 35 100 -Saline Lot Number [id number] -Bleeding Controlled with NA Pressure -Offloading No Yes -Treatment Response Procedure Procedure Tolerated Well Tolerated Well Pain Scale: 0-10 Numeric Is Patient Pain Free? Yes Yes Yes 06/18/19 06/24/19 14:44 15:21 Wound Center Nurse 2 #7 L 2nd toe dfu -Time 14:46 15:23 -Correct Patient Yes Yes -Correct Side, Site, Position Yes Yes -Correct Procedure Yes Yes -Procedure Performed Yes Yes -Type of Procedure Debridement Debridement -Clinical Debridement Subcutaneous Subcutaneous -Post Debridement Size (cm) - Length 0.5 0.4 -Post Debridement Size (cm) - Width 1.0 0.6 -Post Debridement Size (cm) - Depth 0.1 0.1 -Total Square Cm 0.50 0.24 -Wound/Ulcer Outcome Not Healed Not Healed -Ulcer Cleansing Rinsed/ Rinsed/ Irrigated with Irrigated with Saline Saline -Foul Odor after Cleansing No No -Bioengineered Tissue No Yes -Type of bioengineered Tissue NU-SHIELD NU-SHIELD -Expiration Date 01/03/24 01/16/24 -Product Lot Number [id number] -Percent Used 10 100 -Saline Lot Number [id number] -Bleeding Controlled with Pressure Pressure -Offloading Yes No -Treatment Response Procedure Procedure Tolerated Well Tolerated Well #6 L Hand Cluster -Time 14:52 -Correct Patient Yes -Correct Side, Site, Position Yes -Correct Procedure No -Procedure Performed No -Type of Procedure -Clinical Debridement -Post Debridement Size (cm) - Length 0 -Post Debridement Size (cm) - Width 0 -Post Debridement Size (cm) - Depth 0 -Total Square Cm 0 -Wound/Ulcer Outcome Healed- Epithelialized -Ulcer Cleansing -Foul Odor after Cleansing -Bioengineered Tissue -Type of bioengineered Tissue -Expiration Date -Product Lot Number -Percent Used -Saline Lot Number -Bleeding Controlled with -Offloading -Treatment Response #4 R Lat -Time 14:53 -Correct Patient Yes -Correct Side, Site, Position Yes -Correct Procedure No -Procedure Performed No -Type of Procedure -Clinical Debridement -Post Debridement Size (cm) - Length 0 -Post Debridement Size (cm) - Width 0 -Post Debridement Size (cm) - Depth 0 -Total Square Cm 0 -Wound/Ulcer Outcome Healed- Epithelialized -Ulcer Cleansing -Foul Odor after Cleansing -Bioengineered Tissue -Type of bioengineered Tissue -Expiration Date -Product Lot Number -Percent Used -Saline Lot Number -Bleeding Controlled with -Offloading -Treatment Response Pain Scale: 0-10 Numeric Is Patient Pain Free? Yes Yes Wound debrided: Left second toe diabetic foot ulcer Laterality: Left Type of Debridement: Excisional debridement Anesthesia Used: 5% Lidocaine Gel Depth: in the subcutaneous layer Percentage of wound debrided: 100 Instrument Used: 3mm curette Tissue Removed: Slough and devitalized tissue Severity: Fat Layer Exposed Amount of bleeding with debridement: Mild Bleeding Controlled with: Pressure Patient tolerated procedure well Assessment/Plan Assessment: See above diagnoses Plan: Debridement done as documented procedure was well-tolerated. No new concerns at this time. application of nushield was applied today and secured with wound veil and Steri-Strips,100 percent used, patient will have Unna boots For compression. She will come back in for change of her Unna boots in 1 week. Continue increased protein intake, leg elevation and optimal diabetes control. Her questions were answered and she was advised to call with any further questions or concerns. Follow-up in a week at wound healing center. This note was generated with [employer] dictation software. It may contain incorrect words, spelling, and punctuation that were not noted in checking the note before signing. Code Visit 150xxx-[id number]: [id number] Skin sub graft trnk/arm/leg
== END 2019-06-27 23:59 ==
LOC: WC 15:00
PROVIDERS: Family Provider Family Medicine; PCP Family Medicine; Visit Provider Nurse Practitioner Family
DX: E11.621 Type 2 diabetes mellitus with foot ulcer (principal); R60.0 Localized edema; I87.2 Venous insufficiency (chronic) (peripheral); I89.0 Lymphedema, not elsewhere classified; E78.5 Hyperlipidemia, unspecified; G62.9 Polyneuropathy, unspecified; L97.812 Non-pressure chronic ulcer of other part of right lower leg with fat layer exposed; E11.42 Type 2 diabetes mellitus with diabetic polyneuropathy; J45.909 Unspecified asthma, uncomplicated; K21.9 Gastro-esophageal reflux disease without esophagitis; E11.51 Type 2 diabetes mellitus with diabetic peripheral angiopathy without gangrene; L97.822 Non-pressure chronic ulcer of other part of left lower leg with fat layer exposed
CPT/HCPCS: 15271; 15272; 15275; 29580; 29581; 99214; Q4160; Q4196; G0463

== ENCOUNTER 2019-07-16 13:30 | Outpatient (RCR) | payer MEDICARE, MEDICAID, SELFPAY ==
[2019-06-28 01:02] VITALS: BP 154/86; PULSE 90; RESP 22; TEMP 36.2
[2019-07-02 13:14] VITALS: BP 132/68; PULSE 76; RESP 16; TEMP 36.4; BMI 54.0
--- NOTE | 2019-07-02 20:33 | PCM.WC.PN ---
(1) Diabetic ulcer of toe of left foot Status: Acute Qualifiers: Non-pressure ulcer stage: with fat layer exposed Code(s): E11.621 - Type 2 diabetes mellitus with foot ulcer; L97.529 - Non-pressure chronic ulcer of other part of left foot with unspecified severity Comment: left 2nd and 5th dorsal toes rosales grade 2 (2) Bilateral lower extremity edema Status: Acute Code(s): R60.0 - Localized edema (3) Elephantiasis Status: Acute Code(s): I89.0 - Lymphedema, not elsewhere classified (4) Type 2 diabetes mellitus Status: Acute Code(s): E11.9 - Type 2 diabetes mellitus without complications (5) Venous insufficiency Status: Acute Code(s): I87.2 - Venous insufficiency (chronic) (peripheral) (6) Chronic acquired lymphedema Status: Chronic Code(s): I89.0 - Lymphedema, not elsewhere classified (7) Obstructive sleep apnea Status: Chronic Code(s): G47.33 - Obstructive sleep apnea (adult) (pediatric) Type of Wound Date of Service: 07/02/19 Chief Complaint: Nonhealing ulcer b/l lower extremity and left toes History of Wound: This is a 68-year-old white female with a past medical history as listed above who presents to the wound healing center today with complaints of nonhealing ulcer to the bilateral lower extremities and left second and fifth toe. She states that these ulcers have been present for the past 4 months. She is well-known to me and has been seen by myself at the wound center in the past. She states she did follow-up as recommended with dermatology and was diagnosed with elephantiasis.she does note that over the course of the last couple months she has been placed on several antibiotics due to surrounding cellulitis, however denies any symptoms of cellulitis at this time. She states that she has dry scaly and reddened skin bilaterally to the lower extremities which causes her to itch all the time and scratch open, she has had ulcerations which in the past she states has become infected. However she denies any signs of infection at this time and denies any fever, purulent exudate, or increasing pain. She does state that she has lymphedema pumps and compression stockings, however she refuses to utilize them at this time due to not thinking that are necessary. She currently resides at [facility]. She does state that she is able to ambulate, however she spends most of her time in a wheelchair. She currently has been using a prescription cream to her bilateral lower extremities. Her past medical history is significant for that of type 2 diabetes mellitus, neuropathy, PVD, rheumatoid arthritis, asthma, GERD, and depression. Progress of Wound: Left and right Lower leg ulcerations healed at this time,left 2nd toe ulcer granular with no signs of infection, did well on [facility], Denies any signs of infection. No worsening pain - Physical Exam Vital Signs Temp Pulse Resp BP 97.5 F L 76 16 132/68 H 07/02/19 13:14 07/02/19 13:14 07/02/19 13:14 07/02/19 13:14 General: Alert, Oriented x3, Cooperative, No apparent distress HEENT: Atraumatic Oral: Moist Mucosa Neck: Supple Lungs: Clear to auscultation, Normal air movement, No rhonchi, No wheeze, No rales Cardiovascular: Regular rate Abdomen: Soft, Non Tender, Obese Extremities: No clubbing, No cyanosis, Edema - Generalized bilateral lower extremity edema Skin: Ulcer/ Wound - Left second toe ulceration with adherent slough, no signs of infection at this time Neurological: Neuro grossly intact Psych/Mental Status: Normal Affect, Appropriate, Alert and oriented to time, place, person, mood and affect Debridement Note Post-Debridement Measurements/Treatment WC - Nurse 2 - General Ulcer CM Notes Start: 07/02/19 13:13 Freq: Status: Active Protocol: Activity Type Activity Date Activity User E-Sign Co-Sign Detail Recorded Client Recorded Date Recorded By Document 07/02/19 13:30 MW [id number] 07/02/19 13:39 MW 07/02/19 13:30 Wound Center Nurse 2 #7 L 2nd toe dfu -Time 13:33 -Correct Patient Yes -Correct Side, Site, Position Yes -Correct Procedure Yes -Procedure Performed Yes -Type of Procedure Debridement -Clinical Debridement Subcutaneous -Post Debridement Size (cm) - Length 0.4 -Post Debridement Size (cm) - Width 0.4 -Post Debridement Size (cm) - Depth 0.1 -Total Square Cm 0.16 -Wound/Ulcer Outcome Not Healed -Ulcer Cleansing Rinsed/ Irrigated with Saline -Foul Odor after Cleansing No -Bioengineered Tissue Yes -Type of bioengineered Tissue NU-SHIELD -Expiration Date 01/18/24 -Product Lot Number [id number] -Percent Used 100 -Saline Lot Number [id number] -Bleeding Controlled with Pressure -Offloading No -Treatment Response Procedure Tolerated Well Wound debrided: Left second toe DFU Laterality: Left Type of Debridement: Excisional debridement Anesthesia Used: 5% Lidocaine Gel Depth: in the subcutaneous layer Percentage of wound debrided: 100 Instrument Used: 3mm curette Tissue Removed: Slough and devitalized tissue Severity: Fat Layer Exposed Amount of bleeding with debridement: Mild Bleeding Controlled with: Pressure Patient tolerated procedure well Assessment/Plan Assessment: See above diagnoses Plan: Debridement done as documented procedure was well-tolerated. No new concerns at this time. application of nushield was applied today and secured with wound veil and Steri-Strips,100 percent used, patient will have Unna boots For compression. She will come back in for change of her Unna boots in 1 week. Continue increased protein intake, leg elevation and optimal diabetes control. Her questions were answered and she was advised to call with any further questions or concerns. Follow-up in a week at wound healing center. This note was generated with [employer] dictation software. It may contain incorrect words, spelling, and punctuation that were not noted in checking the note before signing. Code Visit 150xxx-152xx: 61669 Skin sub graft trnk/arm/leg
[2019-07-09 13:29] VITALS: BP 143/96; PULSE 83; RESP 18; TEMP 36.1; BMI 54.0
--- NOTE | 2019-07-09 18:06 | PCM.WC.PN ---
(1) Diabetic ulcer of toe of left foot Status: Acute Current Visit: No Qualifiers: Non-pressure ulcer stage: with fat layer exposed Code(s): E11.621 - Type 2 diabetes mellitus with foot ulcer; L97.529 - Non-pressure chronic ulcer of other part of left foot with unspecified severity Comment: left 2nd and 5th dorsal toes rosales grade 2 (2) Bilateral lower extremity edema Status: Acute Current Visit: No Code(s): R60.0 - Localized edema (3) Elephantiasis Status: Acute Current Visit: No Code(s): I89.0 - Lymphedema, not elsewhere classified (4) Type 2 diabetes mellitus Status: Acute Current Visit: No Code(s): E11.9 - Type 2 diabetes mellitus without complications (5) Venous insufficiency Status: Acute Current Visit: No Code(s): I87.2 - Venous insufficiency (chronic) (peripheral) (6) Chronic acquired lymphedema Status: Chronic Current Visit: No Code(s): I89.0 - Lymphedema, not elsewhere classified (7) Obstructive sleep apnea Status: Chronic Current Visit: No Code(s): G47.33 - Obstructive sleep apnea (adult) (pediatric) Type of Wound Date of Service: 07/09/19 Chief Complaint: Nonhealing ulcer b/l lower extremity and left toes History of Wound: This is a 68-year-old white female with a past medical history as listed above who presents to the wound healing center today with complaints of nonhealing ulcer to the bilateral lower extremities and left second and fifth toe. She states that these ulcers have been present for the past 4 months. She is well-known to me and has been seen by myself at the wound center in the past. She states she did follow-up as recommended with dermatology and was diagnosed with elephantiasis.she does note that over the course of the last couple months she has been placed on several antibiotics due to surrounding cellulitis, however denies any symptoms of cellulitis at this time. She states that she has dry scaly and reddened skin bilaterally to the lower extremities which causes her to itch all the time and scratch open, she has had ulcerations which in the past she states has become infected. However she denies any signs of infection at this time and denies any fever, purulent exudate, or increasing pain. She does state that she has lymphedema pumps and compression stockings, however she refuses to utilize them at this time due to not thinking that are necessary. She currently resides at [facility]. She does state that she is able to ambulate, however she spends most of her time in a wheelchair. She currently has been using a prescription cream to her bilateral lower extremities. Her past medical history is significant for that of type 2 diabetes mellitus, neuropathy, PVD, rheumatoid arthritis, asthma, GERD, and depression. Progress of Wound: Left and right Lower leg ulcerations healed at this time,left 2nd toe ulcer granular and improved in size, now .1 x .1 with no signs of infection, [facility], Denies any signs of infection. No worsening pain - Physical Exam Vital Signs Temp Pulse Resp BP 97 F L 83 18 143/96 H 07/09/19 13:29 07/09/19 13:29 07/09/19 13:29 07/09/19 13:29 General: Alert, Oriented x3, Cooperative, No apparent distress HEENT: Atraumatic Oral: Moist Mucosa Lungs: Clear to auscultation, Normal air movement Cardiovascular: Regular rate, Regular Rhythm Abdomen: Soft Extremities: No clubbing, No cyanosis, Edema - +1 BLLE edema Skin: Ulcer/ Wound - left second toe DFU, no signs of infection Wound Measurements and Assessment WC - Nurse 1 - General Ulcer Measurement Start: 07/02/19 13:13 Freq: Status: Active Protocol: Activity Type Activity Date Activity User E-Sign Co-Sign Detail Recorded Client Recorded Date Recorded By Document 07/09/19 13:29 [id number] 07/09/19 13:36 RB 07/09/19 13:29 Wound Center Nurse 1 [Ulcer Assessment] #7 L 2nd toe dfu -Combined with other wound No -Current Size (cm) - Length 0.1 -Current Size (cm) - Width 0.1 -Current Size (cm) - Depth 0.1 -Total Square Cm 0.01 -Tunneling No -Undermining/Tunneling No -Circular Undermining No -Exudate Amt None Present -Wound Margin Flat & Intact -Granulation Amt Small (1-33%) -Granulation Quality Burt -Slough/Fibrin Yes -Necrosis Amt Large (67-100%) -Necrotic Tissue Type Adherent Slough -Structure Exposed N/A -Texture (Beatris-wound Skin Appearance) Assessed -Moisture (Beatris-wound Skin Appearance Dry/Scaly ) -Color (Beatris-wound Skin Appearance) Assessed -Temperature (Beatris-wound Skin No Abnormality Appearance) (Pt Warm) -Tenderness on Palpation (Beatris-wound No Skin Appearance) -Ulcer Cleansing Wound Cleanser -Foul Odor after Cleansing No -Anesthetic Used 5% Lidocaine Gel [Edema Assessment] -Lower Limb Edema Present Yes -Right Calf (cm) 44.5 -Right Ankle (cm) 23 -Left Calf (cm) 48.5 -Left Ankle (cm) 23.8 WC - Nurse 2 - General Ulcer CM Notes Start: 07/02/19 13:13 Freq: Status: Active Protocol: Activity Type Activity Date Activity User E-Sign Co-Sign Detail Recorded Client Recorded Date Recorded By Document 07/09/19 14:04 [id number] 07/09/19 14:06 07/09/19 14:04 Wound Center Nurse 2 [Procedure/Treatment] #7 L 2nd toe dfu -Time 14:06 -Correct Patient Yes -Correct Side, Site, Position Yes -Correct Procedure Yes -Procedure Performed Yes -Type of Procedure Debridement -Clinical Debridement Subcutaneous -Post Debridement Size (cm) - Length 0.1 -Post Debridement Size (cm) - Width 0.1 -Post Debridement Size (cm) - Depth 0.1 -Total Square Cm 0.01 -Wound/Ulcer Outcome Not Healed -Ulcer Cleansing Rinsed/ Irrigated with Saline -Foul Odor after Cleansing No -Bioengineered Tissue No -Bleeding Controlled with Pressure -Offloading No -Treatment Response Procedure Tolerated Well [See Physician Procedure note for Specifics] Pain Scale: 0-10 Numeric [Pain] -Is Patient Pain Free? Yes Neurological: Neuro grossly intact Psych/Mental Status: Normal Affect, Appropriate, Alert and oriented to time, place, person, mood and affect Debridement Note Post-Debridement Measurements/Treatment - Nurse 2 - General Ulcer CM Notes Start: 07/02/19 13:13 Freq: Status: Active Protocol: Activity Type Activity Date Activity User E-Sign Co-Sign Detail Recorded Client Recorded Date Recorded By Document 07/02/19 13:30 [id number] 07/02/19 13:39 MW Document 07/09/19 14:04 [id number] 07/09/19 14:06 JF 07/02/19 07/09/19 13:30 14:04 Wound Center Nurse 2 #7 L 2nd toe dfu -Time 13:33 14:06 -Correct Patient Yes Yes -Correct Side, Site, Position Yes Yes -Correct Procedure Yes Yes -Procedure Performed Yes Yes -Type of Procedure Debridement Debridement -Clinical Debridement Subcutaneous Subcutaneous -Post Debridement Size (cm) - Length 0.4 0.1 -Post Debridement Size (cm) - Width 0.4 0.1 -Post Debridement Size (cm) - Depth 0.1 0.1 -Total Square Cm 0.16 0.01 -Wound/Ulcer Outcome Not Healed Not Healed -Ulcer Cleansing Rinsed/ Rinsed/ Irrigated with Irrigated with Saline Saline -Foul Odor after Cleansing No No -Bioengineered Tissue Yes No -Type of bioengineered Tissue NU-SHIELD -Expiration Date 01/18/24 -Product Lot Number [id number] -Percent Used 100 -Saline Lot Number [id number] -Bleeding Controlled with Pressure Pressure -Offloading No No -Treatment Response Procedure Procedure Tolerated Well Tolerated Well Pain Scale: 0-10 Numeric Is Patient Pain Free? Yes Wound debrided: left second toe dfu Type of Debridement: Excisional debridement Anesthesia Used: 5% Lidocaine Gel Depth: in the subcutaneous layer Percentage of wound debrided: 100 Instrument Used: 3mm curette Tissue Removed: slough and devitalized tissue Severity: Fat Layer Exposed Amount of bleeding with debridement: Mild Bleeding Controlled with: Pressure Patient tolerated procedure well Assessment/Plan Assessment: See above diagnoses Plan: Debridement done as documented procedure was well-tolerated. No new concerns at this time. application daily of adaptic cover with gauze, light 3ms and farrow wraps ordered For compression. She will come back in 1 week for reassesment. Continue increased protein intake, leg elevation and optimal diabetes control. Her questions were answered and she was advised to call with any further questions or concerns. Follow-up in a week at wound healing center. This note was generated with [employer] dictation software. It may contain incorrect words, spelling, and punctuation that were not noted in checking the note before signing. Code Visit 111xxx-113xx: [id number] Rachel subq tissue 20 sq cm/<
[2019-07-16 13:43] VITALS: BP 146/71; PULSE 87; RESP 18; TEMP 36.5; BMI 54.0
--- NOTE | 2019-07-16 16:40 | PN.PCM_ITS ---
(1) Diabetic ulcer of toe of left foot Status: Acute Current Visit: Yes Qualifiers: Non-pressure ulcer stage: with fat layer exposed Code(s): E11.621 - Type 2 diabetes mellitus with foot ulcer; L97.529 - Non- pressure chronic ulcer of other part of left foot with unspecified severity Comment: left 2nd and 5th dorsal toes rosales grade 2 (2) Bilateral lower extremity edema Status: Acute Current Visit: Yes Code(s): R60.0 - Localized edema (3) Elephantiasis Status: Acute Current Visit: Yes Code(s): I89.0 - Lymphedema, not elsewhere classified (4) Type 2 diabetes mellitus Status: Acute Current Visit: No Code(s): E11.9 - Type 2 diabetes mellitus without complications (5) Venous insufficiency Status: Acute Current Visit: No Code(s): I87.2 - Venous insufficiency (chronic) (peripheral) (6) Chronic acquired lymphedema Status: Chronic Current Visit: No Code(s): I89.0 - Lymphedema, not elsewhere classified (7) Obstructive sleep apnea Status: Chronic Current Visit: No Code(s): G47.33 - Obstructive sleep apnea (adult) (pediatric) Type of Wound Date of Service: 07/16/19 Chief Complaint: Nonhealing ulcer b/l lower extremity and left toes History of Wound: This is a 68-year-old white female with a past medical history as listed above who presents to the wound healing center today with complaints of nonhealing ulcer to the bilateral lower extremities and left second and fifth toe. She states that these ulcers have been present for the past 4 months. She is well-known to me and has been seen by myself at the wound center in the past. She states she did follow-up as recommended with dermatology and was diagnosed with elephantiasis.she does note that over the course of the last couple months she has been placed on several antibiotics due to surrounding cellulitis, however denies any symptoms of cellulitis at this time. She states that she has dry scaly and reddened skin bilaterally to the lower extremities which causes her to itch all the time and scratch open, she has had ulcerations which in the past she states has become infected. However she denies any signs of infection at this time and denies any fever, purulent exudate, or increasing pain. She does state that she has lymphedema pumps and compression stockings, however she refuses to utilize them at this time due to not thinking that are necessary. She currently resides at [facility]. She does state that she is able to ambulate, however she spends most of her time in a wheelchair. She currently has been using a prescription cream to her bilateral lower extremities . Her past medical history is significant for that of type 2 diabetes mellitus, neuropathy, PVD, rheumatoid arthritis, asthma, GERD, and depression. Progress of Wound: Left and right Lower leg and left diabetic foot ulcerations healed at this time, no new concerns and no signs of infection at this time. The patient otherwise denies any fever, chills, nausea, vomiting, shortness of breath, chest pain or pressure, palpitations, orthopnea, lower extremity edema, syncope or presyncopal episodes. - Physical Exam Vital Signs Temp Pulse Resp BP 97.7 F L 87 18 146/71 H 07/16/19 13:43 07/16/19 13:43 07/16/19 13:43 07/16/19 13:43 General: Alert, Oriented x3, Cooperative, No apparent distress HEENT: Atraumatic Oral: Moist Mucosa Lungs: Clear to auscultation, Normal air movement Cardiovascular: Regular rate Abdomen: Soft, Non Tender, Obese Extremities: No clubbing, No cyanosis, No edema Skin: Ulcer/ Wound - healed, no signs of infection Wound Measurements and Assessment WC - Nurse 1 - General Ulcer Measurement Start: 07/02/19 13:13 Freq: Status: Active Protocol: Activity Type Activity Date Activity User E-Sign Co-Sign Detail Recorded Client Recorded Date Recorded By Document 07/16/19 13:43 DL [id number] 07/16/19 13:47 DL 07/16/19 13:43 Wound Center Nurse 1 [Ulcer Assessment] #7 L 2nd toe dfu -Current Size (cm) - Length 0.1 -Current Size (cm) - Width 0.1 -Current Size (cm) - Depth 0.1 -Total Square Cm 0.01 -Photo Taken No -Exudate Amt None Present -Wound Margin Flat & Intact -Granulation Amt Large (67-100%) -Granulation Quality [place] -Necrosis Amt None Present (0 %) -Structure Exposed N/A -Texture (Beatris-wound Skin Appearance) Scarring -Moisture (Beatris-wound Skin Appearance Dry/Scaly ) -Color (Beatris-wound Skin Appearance) Hemosiderin Staining -Temperature (Beatris-wound Skin No Abnormality Appearance) (Pt Warm) -Tenderness on Palpation (Beatris-wound No Skin Appearance) -Ulcer Cleansing Rinsed/ Irrigated with Saline -Foul Odor after Cleansing No -Anesthetic Used 4% Lidocaine Solution WC - Nurse 2 - General Ulcer CM Notes Start: 07/02/19 13:13 Freq: Status: Active Protocol: Activity Type Activity Date Activity User E-Sign Co-Sign Detail Recorded Client Recorded Date Recorded By Document 07/16/19 13:52 MW [id number] 07/16/19 13:53 MW 07/16/19 13:52 Wound Center Nurse 2 [Procedure/Treatment] -Time 13:52 -Correct Patient Yes -Correct Side, Site, Position Yes -Correct Procedure Yes -Procedure Performed No -Post Debridement Size (cm) - Length 0 -Post Debridement Size (cm) - Width 0 -Post Debridement Size (cm) - Depth 0 -Total Square Cm 0 -Wound/Ulcer Outcome Healed- Epithelialized [See Physician Procedure note for Specifics] Pain Scale: 0-10 Numeric [Pain] -Is Patient Pain Free? Yes Neurological: Neuro grossly intact Psych/Mental Status: Normal Affect, Appropriate, Alert and oriented to time, place, person, mood and affect Debridement Note Post-Debridement Measurements/Treatment - Nurse 2 - General Ulcer CM Notes Start: 07/02/19 13:13 Freq: Status: Active Protocol: Activity Type Activity Date Activity User E-Sign Co-Sign Detail Recorded Client Recorded Date Recorded By Document 07/02/19 13:30 [id number] 07/02/19 13:39 MW Document 07/09/19 14:04 [id number] 07/09/19 14:06 JF Document 07/16/19 13:52 MW [id number] 07/16/19 13:53 MW 07/02/19 07/09/19 07/16/19 13:30 14:04 13:52 Wound Center Nurse 2 #7 L 2nd toe dfu -Time 13:33 14:06 13:52 -Correct Patient Yes Yes Yes -Correct Side, Site, Position Yes Yes Yes -Correct Procedure Yes Yes Yes -Procedure Performed Yes Yes No -Type of Procedure Debridement Debridement -Clinical Debridement Subcutaneous Subcutaneous -Post Debridement Size (cm) - Length 0.4 0.1 0 -Post Debridement Size (cm) - Width 0.4 0.1 0 -Post Debridement Size (cm) - Depth 0.1 0.1 0 -Total Square Cm 0.16 0.01 0 -Wound/Ulcer Outcome Not Healed Not Healed Healed- Epithelialized -Ulcer Cleansing Rinsed/ Rinsed/ Irrigated with Irrigated with Saline Saline -Foul Odor after Cleansing No No -Bioengineered Tissue Yes No -Type of bioengineered Tissue NU-SHIELD -Expiration Date 01/18/24 -Product Lot Number [id number] -Percent Used 100 -Saline Lot Number [id number] -Bleeding Controlled with Pressure Pressure -Offloading No No -Treatment Response Procedure Procedure Tolerated Well Tolerated Well Pain Scale: 0-10 Numeric Is Patient Pain Free? Yes Yes No debridement was completed today Assessment/Plan Active Problems Bilateral lower extremity edema (Acute) Elephantiasis (Acute) Diabetic ulcer of toe of left foot (Acute) left 2nd and 5th dorsal toes rosales grade 2 Assessment: See above diagnoses Plan: Patient's wounds are entirely healed at this time without any signs of infection. Continue increased protein intake, leg elevation and optimal diabet es control. JACINTA hose 20 to 30 mmHg to be worn bilaterally during the day with lymphedema pumps 3 times daily. Patient will be discharged from the wound healing center at this time and follow-up if new wounds occur in the future. This note was generated with [employer] software. It may contain incorrect words, spelling, and punctuation that were not noted in checking the note before signing. Code Visit Office Visits / Consults: [id number] OV L3 Est
== END 2019-07-28 23:59 ==
LOC: WC 13:30
PROVIDERS: Family Provider Family Medicine; PCP Family Medicine; Visit Provider Nurse Practitioner Family
DX: E11.621 Type 2 diabetes mellitus with foot ulcer (principal); R60.0 Localized edema; I87.2 Venous insufficiency (chronic) (peripheral); I89.0 Lymphedema, not elsewhere classified; G47.33 Obstructive sleep apnea (adult) (pediatric); K21.9 Gastro-esophageal reflux disease without esophagitis; F32.9 Major depressive disorder, single episode, unspecified; J45.909 Unspecified asthma, uncomplicated; M06.9 Rheumatoid arthritis, unspecified; E11.51 Type 2 diabetes mellitus with diabetic peripheral angiopathy without gangrene; E11.40 Type 2 diabetes mellitus with diabetic neuropathy, unspecified; L97.522 Non-pressure chronic ulcer of other part of left foot with fat layer exposed
CPT/HCPCS: 11042; 15275; 29581; 99212; Q4160; G0463

== ENCOUNTER 2020-01-13 13:00 | Outpatient (RCR) | payer MEDICARE, MEDICAID, SELFPAY ==
[2019-12-30 09:33] VITALS: BP 159/66; PULSE 96; RESP 18; TEMP 37; BMI 52.7
[2019-12-30 10:31] VITALS: BMI 52.7
--- NOTE | 2019-12-30 11:07 | HP.PCM_ITS ---
(1) Type 2 diabetes mellitus with diabetic polyneuropathy Status: Chronic Current Visit: Yes Code(s): E11.42 - Type 2 diabetes mellitus with diabetic polyneuropathy (2) Ulcer of right foot with fat layer exposed Status: Chronic Current Visit: Yes Code(s): L97.512 - Non-pressure chronic ulcer of other part of right foot with fat layer exposed (3) Ulcer of left foot with fat layer exposed Status: Chronic Current Visit: Yes Code(s): L97.522 - Non-pressure chronic ulcer of other part of left foot with fat layer exposed (4) Hammertoe of left foot Status: Chronic Current Visit: Yes Code(s): M20.42 - Other hammer toe(s) (acquired), left foot (5) Bilateral lower extremity edema Status: Chronic Current Visit: Yes Code(s): R60.0 - Localized edema (6) Decreased pedal pulses Status: Acute Current Visit: Yes Code(s): R09.89 - Other specified symptoms and signs involving the circulatory and respiratory systems (7) Venous insufficiency Status: Acute Current Visit: Yes Code(s): I87.2 - Venous insufficiency (chronic) (peripheral) (8) Chronic acquired lymphedema Status: Chronic Current Visit: Yes Code(s): I89.0 - Lymphedema, not elsewhere classified (9) Chronic malnutrition Status: Chronic Current Visit: Yes Code(s): E46 - Unspecified protein- calorie malnutrition History of Present Illness Date of Service: 12/30/19 Chief Complaint: Left foot ulcer and previous ulcers on the left leg History of Wound: This is a 69-year-old white female with a past medical history as listed above who presents to the wound healing center today with complaints of nonhealing ulcer to the left fourth toe. She is unaware of any right foot ulcers. She states that these ulcers have been present for the past 3 to 4 months. She is well-known to me and has been seen by myself at the wound center in the past. She states she did follow-up as recommended with dermatology and was diagnosed with elephantiasis.she does note that over the course of the last couple months she has been placed on several antibiotics due to surrounding cellulitis, however denies any symptoms of cellulitis at this time. She states that she has dry scaly and reddened skin bilaterally to the lower extremities which causes her to itch all the time and scratch open, she has had ulcerations which in the past she states has become infected. However she denies any signs of infection at this time and denies any fever, purulent exudate, or increasing pain. She does state that she has lymphedema pumps and compression stockings, however she relates she was advised to not use them because they are too uncomfortable. She currently resides at [facility]. She does state that she is able to ambulate, however she spends most of her time in a wheelchair. She denies a specific trauma. She denies claudication. She has severe chronic pain she relates over her entire body. She does have neuropathy with rest paresthesias and lack of sensation. She is previously well known at the wound care center over the past couple years and has seen other providers. Her last blood flow studies were completed about 2 years ago. Past Medical History Past Medical History: Chronic Problems Nonhealing ulcer of right lower extremity with fat layer exposed (Chronic) Bilateral lower extremity edema (Chronic) Chronic acquired lymphedema (Chronic) Type 2 diabetes mellitus with diabetic polyneuropathy (Chronic) Ulcer of right foot with fat layer exposed (Chronic) Ulcer of left foot with fat layer exposed (Chronic) Hammertoe of left foot (Chronic) Chronic malnutrition (Chronic) Renal lithiasis (Chronic) Right Peripheral neuropathy (Chronic) Obstructive sleep apnea (Chronic) Increased BMI (Chronic) Chronic back pain (Chronic) HLD (hyperlipidemia) (Chronic) Benign hypertension (Chronic) Past Medical History: Her past medical history is significant for that of type 2 diabetes mellitus, neuropathy, rheumatoid arthritis, asthma, GERD, and depression. Surgical History: noncontributory, hysterectomy Allergies/Adverse Reactions: Allergies aspirin Allergy (Verified 05/07/19 14:26) Hives Penicillins Allergy (Verified 05/07/19 14:26) Hives Sulfa (Sulfonamide Antibiotics) Allergy (Verified 05/07/19 14:26) Hives Home Medications: Ambulatory Orders Medication Instructions Recorded Albuterol IH (ProAir) [Proair Hfa] 1 - 2 puff INHALATION Q4H PRN PRN 02/16/14 Fluticasone 0.05% [Flonase Nasal 2 spray NASAL DAILY 02/16/14 [place]] Fluticasone/Salmeterol [Advair 1 puff INHALATION BID 02/16/14 250/50 Mcg Diskus] Morphine [Morphine IR] 60 mg PO Q4H PRN PRN 02/16/14 Multivitamin with Iron 1 each PO DAILY 02/16/14 [Multivitamins with Iron] Oxybutynin [Ditropan] 5 mg PO DAILY 02/16/14 Oxycodone HCl/Acetaminophen 1 tablet PO Q4H PRN PRN 02/16/14 [Percocet 5/325] Potassium Chloride [K-Dur] 10 meq PO BID 02/16/14 Pregabalin [Lyrica] 100 mg PO TID 02/16/14 Ropinirole HCl [Requip] 0.25 mg PO QHS 02/16/14 Vit D3/Folic Acid/B2/B6/B12 1 each PO DAILY 02/16/14 [Folgard Tablet] Basaglar Kwikpen U-100 25 100ml EPIDURAL DAILY 05/07/19 Furosemide [Lasix] 80 mg PO DAILY 05/07/19 - Family History Maternal No pertinent history Smoking Status: Never smoker Review of Systems Constitutional: Denies: Chills, Fever Cardiovascular: Denies: Chest Pain, Claudication Respiratory: Denies: Cough, Shortness of Breath Gastrointestinal: Denies: Nausea, Vomiting Musculoskeletal: Reports: Joint Tenderness Skin: Reports: Skin Changes, Wounds Neurological: Reports: Balance problems, Incoordination, Numbness, Tingling Hematologic/ Lymphatic: Reports: Easy Bruising - Physical Exam Vital Signs Temp Pulse Resp BP 98.6 F 96 18 159/66 H 12/30/19 09:33 12/30/19 09:33 12/30/19 09:33 12/30/19 09:33 General: Alert, Oriented x3, Cooperative HEENT: Atraumatic Extremities: No cyanosis, Capillary Refill Less than 3 Seconds, No Calf Tenderness - Negative Naye and Herbert sign bilateral. Compartments are soft to palpate bilateral, Diminished Peripheral Pulses - Palpable DP pulses 2 out of 4 bilateral and nonpalpable PT pulses 0 out of 4 bilateral. The skin is hairless, atrophic, thin, hyperpigmented and ruborous in dependent position and the skin is indurated, Edema - Bilateral lower extremities Skin: Ulcer/ Wound - Skin discontinuity to the plantar fourth toe sulcus area does not have exposed tendon, necrosis, purulence, erythema, streaking odor or infection. Medial forefoot near the first metatarsal head on the right foot has a skin discontinuity as well without deep tissue exposed or infection Wound Measurements and Assessment WC - Nurse 1 - General Ulcer Measurement Start: 12/30/19 09:32 Freq: Status: Active Protocol: Activity Type Activity Date Activity User E-Sign Co-Sign Detail Recorded Client Recorded Date Recorded By Document 12/30/19 09:33 RB [id number] 12/30/19 09:49 RB Document 12/30/19 10:31 DL [id number] 12/30/19 10:34 DL 12/30/19 12/30/19 09:33 10:31 Wound Center Nurse 1 [Ulcer Assessment] #10 L Med foot -Current Size (cm) - Length 0.1 0.1 -Current Size (cm) - Width 0.1 0.1 -Current Size (cm) - Depth 0.1 0.1 -Total Square Cm 0.01 0.01 -Photo Taken Yes Yes -Exudate Amt None Present None Present -Wound Margin Flat & Intact -Granulation Amt Small (1-33%) Small (1-33%) -Granulation Quality Pale Pale -Necrosis Amt Small (1-33%) Small (1-33%) -Necrotic Tissue Type Adherent Slough Adherent Slough -Structure Exposed N/A N/A -Texture (Beatris-wound Skin Appearance) No Abnormality No Abnormality -Moisture (Beatris-wound Skin Appearance Dry/Scaly Dry/Scaly ) -Color (Beatris-wound Skin Appearance) No Abnormality No Abnormality -Temperature (Beatris-wound Skin No Abnormality No Abnormality Appearance) (Pt Warm) (Pt Warm) -Tenderness on Palpation (Beatris-wound No No Skin Appearance) -Ulcer Cleansing Rinsed/ Rinsed/ Irrigated with Irrigated with Saline Saline -Foul Odor after Cleansing No No 9. L foot 3rd toe plantar -Combined with other wound No -Current Size (cm) - Length 1.3 -Current Size (cm) - Width 0.3 -Current Size (cm) - Depth 0.2 -Total Square Cm 0.39 -Photo Taken Yes -Tunneling No -Undermining/Tunneling No -Circular Undermining No -Exudate Amt Small -Exudate Type Serosanguineous -Wound Margin Flat & Intact -Granulation Amt Medium (34-66%) -Granulation Quality [place] -Slough/Fibrin Yes -Necrosis Amt Small (1-33%) -Necrotic Tissue Type Adherent Slough -Structure Exposed N/A -Texture (Beatris-wound Skin Appearance) Assessed -Moisture (Beatris-wound Skin Appearance Dry/Scaly ) -Color (Beatris-wound Skin Appearance) Assessed -Temperature (Beatris-wound Skin No Abnormality Appearance) (Pt Warm) -Tenderness on Palpation (Beatris-wound No Skin Appearance) -Ulcer Cleansing Wound Cleanser -Foul Odor after Cleansing No -Anesthetic Used 4% Lidocaine Solution [Edema Assessment] -Lower Limb Edema Present Yes -Right Calf (cm) 45.5 -Right Ankle (cm) 23 -Left Calf (cm) 47 -Left Ankle (cm) 23.5 Musculoskeletal: No Tenderness to Palpation of Joints or Extremities, Muscle Wasting, - - Dorsal contracture lesser toes bilateral and lateral hallux deviation prominent first metatarsal head right foot Neurological: - - Lack of normal epicritic sensation light touch is consistent with neuropathy status Psych/Mental Status: Normal Affect, Appropriate Debridement Note Wound debrided: plantar fourth toe Laterality: Left Wound Grade/Stage: grade 1 Type of Debridement: Excisional debridement Anesthesia Used: 5% Lidocaine Gel Depth: in the subcutaneous layer Percentage of wound debrided: 100 Instrument Used: #15 blade Tissue Removed: fibrous, devitalized subcutaneous, biofilm, slough Severity: Fat Layer Exposed Amount of bleeding with debridement: Mild Bleeding Controlled with: Pressure Patient tolerated procedure well - Additional Wound Wound debrided: medial forefoot Laterality: Right Wound Grade/Stage: grade 1 Type of Debridement: Excisional debridement Anesthesia Used: 5% Lidocaine Gel Depth: in the subcutaneous layer Percentage of wound debrided: 100 Instrument Used: #15 blade Tissue Removed: fibrous, devitalized subcutaneous, biofilm, slough Severity: Fat Layer Exposed Amount of bleeding with debridement: Mild Bleeding Controlled with: Pressure Patient tolerated procedure: Patient tolerated procedure well Assessment/Plan Active Problems Bilateral lower extremity edema (Chronic) Decreased pedal pulses (Acute) Venous insufficiency (Acute) Chronic acquired lymphedema (Chronic) Type 2 diabetes mellitus with diabetic polyneuropathy (Chronic) Ulcer of right foot with fat layer exposed (Chronic) Ulcer of left foot with fat layer exposed (Chronic) Hammertoe of left foot (Chronic) Chronic malnutrition (Chronic) Assessment: See above diagnoses Plan: I reviewed and discussed her case including prior chart review. Subcutaneous excisional debridement was performed as noted in the clinical nurse panel to the right medial forefoot and also to the left plantar fourth toe. She tolerated it well. The etiology of ulcers and comprehensive wound healing plan components were reviewed. To offload. Bilateral surgical shoes were ordered and fitted today. To heel weight-bear on the left. I recommended dual density Plastizote liners for the left surgical shoe to help with offloading the site. To change the dressings daily with Aquasol AG. I recommend updating her noninvasive arterial and venous studies to evaluate for peripheral vascular disease and venous insufficiency. Her last exam was performed approximately 2 years ago without gross abnormalities. She is amendable to have the test completed again. I also recommend updating her labs and CBC, CMP, and hemoglobin A1c were ordered. I recommend nutritional supplementation to optimize healing. A prescription for Malvin was provided for her to obtain this at [facility]. I also recommend updating foot x-ray in the left and this order was provided today to. . [email or web address]. Updated today medication and allergy reconciled and documented. Reviewed 12-30-2019 BMI is noted at 52.7 which is well above normal. This can impair healing and edema. I recommend she follows up with her primary care physician for diet and activity. We discussed dietary adjustments that can be performed at [facility] as well. Her blood pressure is also elevated at 159/66 and I recommend following with primary care physician.
[2020-01-06 10:30] VITALS: BP 146/59; PULSE 91; RESP 20; TEMP 37.2; BMI 52.7
--- NOTE | 2020-01-06 14:33 | PCM.WC.PN ---
(1) Type 2 diabetes mellitus with diabetic polyneuropathy Status: Chronic Current Visit: Yes Code(s): E11.42 - Type 2 diabetes mellitus with diabetic polyneuropathy (2) Ulcer of right foot with fat layer exposed Status: Chronic Current Visit: Yes Code(s): L97.512 - Non-pressure chronic ulcer of other part of right foot with fat layer exposed (3) Ulcer of left foot with fat layer exposed Status: Resolved Current Visit: Yes Code(s): L97.522 - Non-pressure chronic ulcer of other part of left foot with fat layer exposed (4) Hammertoe of left foot Status: Chronic Current Visit: Yes Code(s): M20.42 - Other hammer toe(s) (acquired), left foot (5) Bilateral lower extremity edema Status: Chronic Current Visit: Yes Code(s): R60.0 - Localized edema (6) Decreased pedal pulses Status: Acute Current Visit: Yes Code(s): R09.89 - Other specified symptoms and signs involving the circulatory and respiratory systems (7) Venous insufficiency Status: Acute Current Visit: Yes Code(s): I87.2 - Venous insufficiency (chronic) (peripheral) (8) Chronic acquired lymphedema Status: Chronic Current Visit: Yes Code(s): I89.0 - Lymphedema, not elsewhere classified (9) Chronic malnutrition Status: Chronic Current Visit: Yes Code(s): E46 - Unspecified protein-calorie malnutrition Type of Wound Date of Service: 01/06/20 Chief Complaint: Right foot ulcer and left foot ulcer History of Wound: This is a 69-year-old white female with a past medical history as listed above who presents to the wound healing center today with complaints of nonhealing ulcer to the left third toe. She denies right foot drainage. She denies fever, chill, nausea, vomiting. She uses her compression pumps and tries to move her legs at home as well. She has leg swelling. Progress of Wound: Healed right and improving left - Physical Exam Vital Signs Temp Pulse Resp BP 98.9 F 91 20 H 146/59 H 01/06/20 10:30 01/06/20 10:30 01/06/20 10:30 01/06/20 10:30 General: Alert, Oriented x3, Cooperative, No apparent distress HEENT: Atraumatic Extremities: No cyanosis, Capillary Refill Less than 3 Seconds, No Calf Tenderness, Diminished Peripheral Pulses, Edema Skin: Ulcer/ Wound - Full epithelialization noted to right foot the ulcer site is healed. The plantar third toe ulcer has significant peripheral epithelialization is improving. Her skin in general is hairless and atrophic Wound Measurements and Assessment WC - Nurse 1 - General Ulcer Measurement Start: 12/30/19 09:32 Freq: Status: Active Protocol: Activity Type Activity Date Activity User E-Sign Co-Sign Detail Recorded Client Recorded Date Recorded By Document 01/06/20 10:30 DL [id number] 01/06/20 10:33 DL 01/06/20 10:30 Wound Center Nurse 1 [Ulcer Assessment] #10 Right Med foot -Current Size (cm) - Length 0.1 -Current Size (cm) - Width 0.1 -Current Size (cm) - Depth 0.1 -Total Square Cm 0.01 -Photo Taken No -Exudate Amt None Present -Wound Margin Thickened -Granulation Amt Small (1-33%) -Granulation Quality Pale -Necrosis Amt Small (1-33%) -Necrotic Tissue Type Adherent Slough -Structure Exposed N/A -Texture (Beatris-wound Skin Appearance) Callus -Moisture (Beatris-wound Skin Appearance Dry/Scaly ) -Color (Beatris-wound Skin Appearance) No Abnormality -Temperature (Beatris-wound Skin No Abnormality Appearance) (Pt Warm) -Tenderness on Palpation (Beatris-wound No Skin Appearance) -Ulcer Cleansing Rinsed/ Irrigated with Saline -Foul Odor after Cleansing No -Anesthetic Used 4% Lidocaine Solution 9. L foot 3rd toe plantar -Current Size (cm) - Length 1 -Current Size (cm) - Width 0.2 -Current Size (cm) - Depth 0.1 -Total Square Cm 0.2 -Photo Taken No -Exudate Amt None Present -Wound Margin Thickened -Granulation Amt Small (1-33%) -Granulation Quality [place] -Necrosis Amt Small (1-33%) -Necrotic Tissue Type Adherent Slough -Structure Exposed N/A -Texture (Beatris-wound Skin Appearance) Scarring -Moisture (Beatris-wound Skin Appearance Dry/Scaly ) -Color (Beatris-wound Skin Appearance) No Abnormality -Temperature (Beatris-wound Skin No Abnormality Appearance) (Pt Warm) -Tenderness on Palpation (Beatris-wound No Skin Appearance) -Ulcer Cleansing Wound Cleanser -Foul Odor after Cleansing No -Anesthetic Used 4% Lidocaine Solution - Nurse 2 - General Ulcer CM Notes Start: 12/30/19 09:32 Freq: Status: Active Protocol: Activity Type Activity Date Activity User E-Sign Co-Sign Detail Recorded Client Recorded Date Recorded By Document 01/06/20 10:48 MADYSON [id number] 01/06/20 10:52 JF 01/06/20 10:48 Wound Center Nurse 2 [Procedure/Treatment] #10 Right Med foot -Correct Patient No -Correct Side, Site, Position No -Correct Procedure No -Procedure Performed No -Post Debridement Size (cm) - Length 0 -Post Debridement Size (cm) - Width 0 -Post Debridement Size (cm) - Depth 0 -Total Square Cm 0 -Wound/Ulcer Outcome Healed- Epithelialized 9. L foot 3rd toe plantar -Time 10:49 -Correct Patient Yes -Correct Side, Site, Position Yes -Correct Procedure Yes -Type of Procedure Debridement -Clinical Debridement Subcutaneous -Post Debridement Size (cm) - Length 0.3 -Post Debridement Size (cm) - Width 0.3 -Post Debridement Size (cm) - Depth 0.1 -Total Square Cm 0.09 -Wound/Ulcer Outcome Not Healed -Ulcer Cleansing Rinsed/ Irrigated with Saline -Foul Odor after Cleansing No -Bioengineered Tissue No -Bleeding Controlled with Pressure -Offloading No -Treatment Response Procedure Tolerated Well [See Physician Procedure note for Specifics] Pain Scale: 0-10 Numeric [Pain] -Is Patient Pain Free? Yes Musculoskeletal: No Tenderness to Palpation of Joints or Extremities, Muscle Wasting, - - Also contraction of lesser toes Psych/Mental Status: Normal Affect, Appropriate Debridement Note Post-Debridement Measurements/Treatment - Nurse 2 - General Ulcer CM Notes Start: 12/30/19 09:32 Freq: Status: Active Protocol: Activity Type Activity Date Activity User E-Sign Co-Sign Detail Recorded Client Recorded Date Recorded By Document 12/30/19 11:28 PL [id number] 12/30/19 11:29 PL Document 01/06/20 10:48 MADYSON [id number] 01/06/20 10:52 12/30/19 01/06/20 11:28 10:48 Wound Center Nurse 2 #10 Right Med foot -Time 10:08 -Correct Patient Yes No -Correct Side, Site, Position Yes No -Correct Procedure Yes No -Procedure Performed Yes No -Type of Procedure Debridement -Clinical Debridement Subcutaneous -Post Debridement Size (cm) - Length 0.2 0 -Post Debridement Size (cm) - Width 0.2 0 -Post Debridement Size (cm) - Depth 0.2 0 -Total Square Cm 0.04 0 -Wound/Ulcer Outcome Not Healed Healed- Epithelialized -Ulcer Cleansing Rinsed/ Irrigated with Saline -Foul Odor after Cleansing No -Bleeding Controlled with Pressure -Treatment Response Procedure Tolerated Well 9. L foot 3rd toe plantar -Time 10:08 10:49 -Correct Patient Yes Yes -Correct Side, Site, Position Yes Yes -Correct Procedure Yes Yes -Procedure Performed Yes -Type of Procedure Debridement Debridement -Clinical Debridement Subcutaneous Subcutaneous -Post Debridement Size (cm) - Length 1.4 0.3 -Post Debridement Size (cm) - Width 0.4 0.3 -Post Debridement Size (cm) - Depth 0.3 0.1 -Total Square Cm 0.56 0.09 -Wound/Ulcer Outcome Not Healed Not Healed -Ulcer Cleansing Rinsed/ Rinsed/ Irrigated with Irrigated with Saline Saline -Foul Odor after Cleansing No No -Bioengineered Tissue No -Bleeding Controlled with Pressure Pressure -Offloading No -Treatment Response Procedure Procedure Tolerated Well Tolerated Well Pain Scale: 0-10 Numeric Is Patient Pain Free? Yes Yes Wound debrided: plantar third toe Laterality: Left Wound Grade/Stage: grade 1 Type of Debridement: Excisional debridement Anesthesia Used: 5% Lidocaine Gel Depth: in the subcutaneous layer Percentage of wound debrided: 100 Instrument Used: #15 blade Tissue Removed: fibrous, devitalized subcutaneous, biofilm, slough Severity: Fat Layer Exposed Amount of bleeding with debridement: Mild Bleeding Controlled with: Pressure Patient tolerated procedure well Assessment/Plan Active Problems Bilateral lower extremity edema (Chronic) Decreased pedal pulses (Acute) Venous insufficiency (Acute) Chronic acquired lymphedema (Chronic) Type 2 diabetes mellitus with diabetic polyneuropathy (Chronic) Ulcer of right foot with fat layer exposed (Chronic) Hammertoe of left foot (Chronic) Chronic malnutrition (Chronic) Assessment: See above diagnoses Plan: I reviewed and discussed her case including prior chart review. Subcutaneous excisional debridement was performed as noted in the clinical nurse panel to the left plantar third toe. She tolerated it well. The etiology of ulcers and comprehensive wound healing plan components were reviewed. To offload With left surgical shoe. I recommended dual density Plastizote liners for the left surgical shoe to help with offloading the site. To change the dressings daily with Aquasol AG. I recommend updating her noninvasive arterial and venous studies to evaluate for peripheral vascular disease and venous insufficiency. Her last exam was performed approximately 2 years ago without gross abnormalities. She is amendable to have the test completed again. I also recommend updating her labs and CBC, CMP, and hemoglobin A1c were ordered. I recommend nutritional supplementation to optimize healing. A prescription for Malvin was provided for her to obtain this at [facility]. She has been doing this. I also recommend controlling her swelling with compression pumps and also manually pumping her legs with exercise each hour she is awake. I also recommend updating foot x-ray in the left and this order was provided today to. It is noted that she did not get her diagnostic testing done and I recommend she has this completed set coming week. I also provided her with a prescription for Lac-Hydrin and she is advised to apply this to bilateral foot and legs daily. . macra 2019. Updated today medication and allergy reconciled and documented. Reviewed 12-30-2019 BMI is noted at 52.7 which is well above normal. This can impair healing and edema. I recommend she follows up with her primary care physician for diet and activity. We discussed dietary adjustments that can be performed at [facility] as well. Her blood pressure is also elevated at 159/66 and I recommend following with primary care physician.
[2020-01-13 13:09] VITALS: BP 124/70; PULSE 94; RESP 16; TEMP 36.6; BMI 52.7
--- NOTE | 2020-01-13 13:54 | PN.PCM_ITS ---
(1) Type 2 diabetes mellitus with diabetic polyneuropathy Status: Chronic Current Visit: Yes Code(s): E11.42 - Type 2 diabetes mellitus with diabetic polyneuropathy (2) Ulcer of right foot with fat layer exposed Status: Resolved Current Visit: Yes Code(s): L97.512 - Non-pressure chronic ulcer of other part of right foot with fat layer exposed (3) Ulcer of left foot with fat layer exposed Status: Resolved Current Visit: Yes Code(s): L97.522 - Non-pressure chronic ulcer of other part of left foot with fat layer exposed (4) Hammertoe of left foot Status: Chronic Current Visit: Yes Code(s): M20.42 - Other hammer toe(s) (acquired), left foot (5) Bilateral lower extremity edema Status: Chronic Current Visit: Yes Code(s): R60.0 - Localized edema (6) Decreased pedal pulses Status: Acute Current Visit: Yes Code(s): R09.89 - Other specified symptoms and signs involving the circulatory and respiratory systems (7) Venous insufficiency Status: Acute Current Visit: Yes Code(s): I87.2 - Venous insufficiency (chronic) (peripheral) (8) Chronic acquired lymphedema Status: Chronic Current Visit: Yes Code(s): I89.0 - Lymphedema, not elsewhere classified (9) Chronic malnutrition Status: Chronic Current Visit: Yes Code(s): E46 - Unspecified protein- calorie malnutrition Type of Wound Date of Service: 01/13/20 Chief Complaint: Right foot ulcer and left foot ulcer History of Wound: This is a 70-year-old white female with a past medical history as listed above who presents to the wound healing center today with complaints of nonhealing ulcer to the left third toe. She denies right foot drainage. She denies fever, chill, nausea, vomiting. She denies drainage. Progress of Wound: Healed - Physical Exam Vital Signs Temp Pulse Resp BP 97.9 F 94 16 124/70 H 01/13/20 13:09 01/13/20 13:09 01/13/20 13:09 01/13/20 13:09 General: Alert, Oriented x3, Cooperative Extremities: No cyanosis, Capillary Refill Less than 3 Seconds, No Calf Tenderness, Diminished Peripheral Pulses, Edema Skin: Ulcer/ Wound - Full epithelialization is noted. This ulcer site has healed. No erythema, purulence, necrosis, infection or maceration. The adjacent skin is hairless and atrophic Wound Measurements and Assessment - Nurse 1 - General Ulcer Measurement Start: 12/30/19 09:32 Freq: Status: Active Protocol: Activity Type Activity Date Activity User E-Sign Co-Sign Detail Recorded Client Recorded Date Recorded By Document 01/13/20 13:09 [facility] [id number] 01/13/20 13:12 [facility] 01/13/20 13:09 Wound Center Nurse 1 [Ulcer Assessment] 9. L foot 3rd toe plantar -Combined with other wound No -Current Size (cm) - Length 0.1 -Current Size (cm) - Width 0.1 -Current Size (cm) - Depth 0.1 -Total Square Cm 0.01 -Photo Taken No -Epithelialization Medium 34-66% -Tunneling No -Undermining/Tunneling No -Circular Undermining No -Exudate Amt None Present -Wound Margin Distinct, Outline Attached -Granulation Amt Large (67-100%) -Granulation Quality Keiser -Slough/Fibrin Yes -Necrosis Amt Small (1-33%) -Necrotic Tissue Type Adherent Slough -Texture (Beatris-wound Skin Appearance) Assessed, Scarring -Moisture (Beatris-wound Skin Appearance Assessed,Dry/ ) Scaly -Color (Beatris-wound Skin Appearance) Assessed -Temperature (Beatris-wound Skin No Abnormality Appearance) (Pt Warm) -Tenderness on Palpation (Beatris-wound No Skin Appearance) -Ulcer Cleansing Rinsed/ Irrigated with Saline -Foul Odor after Cleansing No -Anesthetic Used 5% Lidocaine Gel - Nurse 2 - General Ulcer CM Notes Start: 12/30/19 09:32 Freq: Status: Active Protocol: Activity Type Activity Date Activity User E-Sign Co-Sign Detail Recorded Client Recorded Date Recorded By Document 01/13/20 13:22 [id number] 01/13/20 13:24 01/13/20 13:22 Wound Center Nurse 2 [Procedure/Treatment] -Correct Patient No -Correct Side, Site, Position No -Correct Procedure No -Procedure Performed No -Post Debridement Size (cm) - Length 0 -Post Debridement Size (cm) - Width 0 -Post Debridement Size (cm) - Depth 0 -Total Square Cm 0 -Wound/Ulcer Outcome Healed- Epithelialized [See Physician Procedure note for Specifics] Pain Scale: 0-10 Numeric [Pain] -Is Patient Pain Free? Yes Musculoskeletal: No Tenderness to Palpation of Joints or Extremities, Muscle Wasting, - - Dorsal contraction of lesser toes Psych/Mental Status: Normal Affect, Appropriate Debridement Note Post-Debridement Measurements/Treatment WC - Nurse 2 - General Ulcer CM Notes Start: 12/30/19 09:32 Freq: Status: Active Protocol: Activity Type Activity Date Activity User E-Sign Co-Sign Detail Recorded Client Recorded Date Recorded By Document 12/30/19 11:28 PL [id number] 12/30/19 11:29 PL Document 01/06/20 10:48 [id number] 01/06/20 10:52 JF Document 01/13/20 13:22 [id number] 01/13/20 13:24 JF 12/30/19 01/06/20 01/13/20 11:28 10:48 13:22 Wound Center Nurse 2 #10 Right Med foot -Time 10:08 -Correct Patient Yes No -Correct Side, Site, Position Yes No -Correct Procedure Yes No -Procedure Performed Yes No -Type of Procedure Debridement -Clinical Debridement Subcutaneous -Post Debridement Size (cm) - Length 0.2 0 -Post Debridement Size (cm) - Width 0.2 0 -Post Debridement Size (cm) - Depth 0.2 0 -Total Square Cm 0.04 0 -Wound/Ulcer Outcome Not Healed Healed- Epithelialized -Ulcer Cleansing Rinsed/ Irrigated with Saline -Foul Odor after Cleansing No -Bleeding Controlled with Pressure -Treatment Response Procedure Tolerated Well 9. L foot 3rd toe plantar -Time 10:08 10:49 -Correct Patient Yes Yes No -Correct Side, Site, Position Yes Yes No -Correct Procedure Yes Yes No -Procedure Performed Yes No -Type of Procedure Debridement Debridement -Clinical Debridement Subcutaneous Subcutaneous -Post Debridement Size (cm) - Length 1.4 0.3 0 -Post Debridement Size (cm) - Width 0.4 0.3 0 -Post Debridement Size (cm) - Depth 0.3 0.1 0 -Total Square Cm 0.56 0.09 0 -Wound/Ulcer Outcome Not Healed Not Healed Healed- Epithelialized -Ulcer Cleansing Rinsed/ Rinsed/ Irrigated with Irrigated with Saline Saline -Foul Odor after Cleansing No No -Bioengineered Tissue No -Bleeding Controlled with Pressure Pressure -Offloading No -Treatment Response Procedure Procedure Tolerated Well Tolerated Well Pain Scale: 0-10 Numeric Is Patient Pain Free? Yes Yes Yes - Additional Wound Patient tolerated procedure: Patient did not tolerate procedure well - Healed today Assessment/Plan Active Problems Bilateral lower extremity edema (Chronic) Decreased pedal pulses (Acute) Venous insufficiency (Acute) Chronic acquired lymphedema (Chronic) Type 2 diabetes mellitus with diabetic polyneuropathy (Chronic) Hammertoe of left foot (Chronic) Chronic malnutrition (Chronic) Assessment: See above diagnoses Plan: I reviewed and discussed her case including prior chart review. Her ulcer site has healed. I advised her to discontinue dressing care and nutritional supplementation. To progress back into extra-depth and wide shoes to protect her feet and provide support. To continue with edema management with compression wraps or stockings. To elevate intermittently throughout the day and to avoid idle standing or sitting. She was reassured no signs of infection are noted. Is noted I did order her other diagnostic testing and additional lab work which has not had is obtained yet. He has her ulcers have healed she will hold off on getting these tests at this time. She is discharged from the wound healing center at this time. I also advised her to moisturize her leg and foot skin daily avoiding the webspaces to keep the skin integrity intact. I answered all of her questions. . charley 2019. Updated today medication and allergy reconciled and documented. Reviewed 12-30-2019 BMI is noted at 52.7 which is well above normal. This can impair healing and edema. I recommend she follows up with her primary care physician for diet and activity. We discussed dietary adjustments that can be performed at [facility] as well. Her blood pressure is also elevated at 159/66 and I recommend following with primary care physician.
== END 2020-01-26 23:59 ==
LOC: WC 13:00
PROVIDERS: PCP Family Medicine; Visit Provider Podiatrist
DX: E11.621 Type 2 diabetes mellitus with foot ulcer (principal); L97.522 Non-pressure chronic ulcer of other part of left foot with fat layer exposed; E11.51 Type 2 diabetes mellitus with diabetic peripheral angiopathy without gangrene; E11.42 Type 2 diabetes mellitus with diabetic polyneuropathy; M20.42 Other hammer toe(s) (acquired), left foot; R60.0 Localized edema; I89.0 Lymphedema, not elsewhere classified; I87.2 Venous insufficiency (chronic) (peripheral); R09.89 Other specified symptoms and signs involving the circulatory and respiratory systems; E78.5 Hyperlipidemia, unspecified; G47.33 Obstructive sleep apnea (adult) (pediatric); I10 Essential (primary) hypertension; M06.9 Rheumatoid arthritis, unspecified; K21.9 Gastro-esophageal reflux disease without esophagitis; G89.29 Other chronic pain; F32.9 Major depressive disorder, single episode, unspecified; Z79.899 Other long term (current) drug therapy; Z79.4 Long term (current) use of insulin; L97.512 Non-pressure chronic ulcer of other part of right foot with fat layer exposed
CPT/HCPCS: 11042; 99212; 99213; G0463

== ENCOUNTER 2020-04-27 13:00 | Outpatient (RCR) | payer MEDICARE, MEDICAID, SELFPAY ==
[2020-01-27 00:15] VITALS: BP 124/70; PULSE 94; RESP 16; TEMP 36.6
[2020-03-30 13:18] VITALS: BP 116/50; PULSE 84; RESP 18; TEMP 36.3; BMI 49.7
--- NOTE | 2020-03-30 22:24 | PN.PCM_ITS ---
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 Status: Chronic Code(s): L97.922 - Non-pressure chronic ulcer of unspecified part of left lower leg with fat layer exposed (3) Hammertoe of left foot Status: Chronic Code(s): M20.42 - Other hammer toe(s) (acquired), left foot (4) Type 2 diabetes mellitus with diabetic polyneuropathy Status: Chronic Code(s): E11.42 - Type 2 diabetes mellitus with diabetic polyneuropathy (5) Ulcer of left foot with fat layer exposed Status: Chronic Code(s): L97.522 - Non-pressure chronic ulcer of other part of left foot with fat layer exposed Type of Wound Date of Service: 03/30/20 Chief Complaint: Left leg and left foot ulcers History of Wound: This is a 70-year-old white female with a past medical history as listed above who presents to the wound healing center today with complaints of nonhealing ulcer to the left fifth toe and left leg she denies right foot drainage. She denies fever, chill, nausea, vomiting. The onset of the ulcer was within the past week and a half. She denies trauma. She denies odor or redness. Progress of Wound: Stable - Physical Exam Vital Signs Temp Pulse Resp BP 97.4 F L 84 18 116/50 L 03/30/20 13:18 03/30/20 13:18 03/30/20 13:18 03/30/20 13:18 General: Alert, Oriented x3, Cooperative, No apparent distress HEENT: Atraumatic Extremities: No cyanosis, Capillary Refill Less than 3 Seconds, No Calf Tenderness - Negative Naye and Herbert sign bilateral, Diminished Peripheral Pulses, Edema Skin: Ulcer/ Wound - No purulence, erythema, streaking, odor, maceration, infection, necrosis. Peripheral skin is hairless and atrophic. There is skin discontinuity to the dorsal lateral fifth toe. There is skin discontinuity to the medial left leg and this is in a cluster format with interspersed granulation tissue. The adjacent skin is some hemorrhagic and with a thin layer of epithelialization. (10%) Wound Measurements and Assessment WC - Nurse 1 - General Ulcer Measurement Start: 03/30/20 13:18 Freq: Status: Active Protocol: Activity Type Activity Date Activity User E-Sign Co-Sign Detail Recorded Client Recorded Date Recorded By Document 03/30/20 13:18 [facility] [id number] 03/30/20 13:23 [facility] 03/30/20 13:18 Wound Center Nurse 1 [Ulcer Assessment] #12- L 5TH TOE -Combined with other wound No -Current Size (cm) - Length 0.4 -Current Size (cm) - Width 0.3 -Current Size (cm) - Depth 0.1 -Total Square Cm 0.12 -Date of Last Picture (Recall this 03/30/20 field) -Photo Taken Yes -Epithelialization None Present -Tunneling No -Undermining/Tunneling No -Circular Undermining No -Exudate Amt None Present -Wound Margin Distinct, Outline Attached -Granulation Amt None Present (0 %) -Slough/Fibrin Yes -Necrosis Amt Large (67-100%) -Necrotic Tissue Type Adherent Slough -Texture (Beatris-wound Skin Appearance) Assessed, Scarring -Moisture (Beatris-wound Skin Appearance Assessed,Dry/ ) Scaly -Color (Beatris-wound Skin Appearance) Assessed -Temperature (Beatris-wound Skin No Abnormality Appearance) (Pt Warm) -Tenderness on Palpation (Beatris-wound No Skin Appearance) -Ulcer Cleansing Rinsed/ Irrigated with Saline -Foul Odor after Cleansing No -Anesthetic Used 4% Lidocaine Solution #11- L MEDIAL LE CLUSTER -Combined with other wound No -Current Size (cm) - Length 6 -Current Size (cm) - Width 1 -Current Size (cm) - Depth 0.2 -Total Square Cm 6 -Date of Last Picture (Recall this 03/30/20 field) -Photo Taken Yes -Epithelialization None Present -Tunneling No -Undermining/Tunneling No -Circular Undermining No -Exudate Amt Small -Exudate Type Serosanguineous -Wound Margin Distinct, Outline Attached -Granulation Amt Small (1-33%) -Granulation Quality Red -Slough/Fibrin Yes -Necrosis Amt Large (67-100%) -Necrotic Tissue Type Adherent Slough -Texture (Beatris-wound Skin Appearance) Assessed, Scarring -Moisture (Beatris-wound Skin Appearance Assessed,Dry/ ) Scaly -Color (Beatris-wound Skin Appearance) Assessed -Temperature (Beatris-wound Skin No Abnormality Appearance) (Pt Warm) -Tenderness on Palpation (Beatris-wound No Skin Appearance) -Ulcer Cleansing Rinsed/ Irrigated with Saline -Foul Odor after Cleansing No -Anesthetic Used 4% Lidocaine Solution [Edema Assessment] -Lower Limb Edema Present Yes -Right Calf (cm) 47.5 -Right Ankle (cm) 23 -Left Calf (cm) 49.7 -Left Ankle (cm) 23.2 WC - Nurse 2 - General Ulcer CM Notes Start: 03/30/20 13:18 Freq: Status: Active Protocol: Activity Type Activity Date Activity User E-Sign Co-Sign Detail Recorded Client Recorded Date Recorded By Document 03/30/20 13:50 [facility] [id number] 03/30/20 13:59 [facility] 03/30/20 13:50 Wound Center Nurse 2 [Procedure/Treatment] #12- L 5TH TOE -Time 13:52 -Correct Patient Yes -Correct Side, Site, Position Yes -Correct Procedure Yes -Procedure Performed Yes -Type of Procedure Debridement -Clinical Debridement Subcutaneous -Tissue Removed Subcutaneous -Post Debridement (cm) - Length 0.2 -Post Debridement (cm) - Width 0.4 -Post Debridement (cm) - Depth 0.2 -Total Square (Post) (cm) 0.08 -Area of Debridement (cm) - Length 0.2 -Area of Debridement (cm) - Width 0.4 -Total Square (Area) (cm) 0.08 -Tunneling No -Undermining/Tunneling No -Circular Undermining No -Wound/Ulcer Outcome Not Healed -Ulcer Cleansing Rinsed/ Irrigated with Saline -Foul Odor after Cleansing No -Bioengineered Tissue No -Bleeding Controlled with Pressure -Offloading Yes -Type of Offloading Surgical Shoe -Treatment Response Procedure Tolerated Well -Debridement - Subq, 1st 20sq cm Yes #11- L MEDIAL LE CLUSTER -Time 13:56 -Correct Patient Yes -Correct Side, Site, Position Yes -Correct Procedure Yes -Procedure Performed Yes -Type of Procedure Debridement -Clinical Debridement Subcutaneous -Tissue Removed Subcutaneous -Post Debridement (cm) - Length 3.5 -Post Debridement (cm) - Width 2.5 -Post Debridement (cm) - Depth 0.2 -Total Square (Post) (cm) 8.75 -Area of Debridement (cm) - Length 0.3 -Area of Debridement (cm) - Width 0.2 -Total Square (Area) (cm) 0.06 -Tunneling No -Undermining/Tunneling No -Circular Undermining No -Wound/Ulcer Outcome Not Healed -Ulcer Cleansing Rinsed/ Irrigated with Saline -Foul Odor after Cleansing No -Bioengineered Tissue No -Bleeding Controlled with Pressure -Offloading No -Treatment Response Procedure Tolerated Well -Debridement - Subq, 1st 20sq cm No [See Physician Procedure note for Specifics] Pain Scale: 0-10 Numeric [Pain] -Is Patient Pain Free? Yes - Nurse 3 - General Ulcer D/C NN Start: 03/30/20 13:18 Freq: Status: Active Protocol: Activity Type Activity Date Activity User E-Sign Co-Sign Detail Recorded Client Recorded Date Recorded By Document 03/30/20 14:15 [facility] [id number] 03/30/20 14:16 [facility] 03/30/20 14:15 Wound Care Nurse 3 [Wound Dressing] #12- L 5TH TOE -Ulcer Cleansing Rinsed/ Irrigated with Saline -Foul Odor after Cleansing No -Primary Dressing Applied C Hydrogel ($) -Primary Dressing Covered/Secured Dry Gauze, with Secured with Tape #11- L MEDIAL LE CLUSTER -Ulcer Cleansing Rinsed/ Irrigated with Saline -Foul Odor after Cleansing No -Primary Dressing Applied Other -Other Dressing hydrogel -Primary Dressing Covered/Secured Dry Gauze & with Roll Gauze, Secured with Tape [Post Procedure Tolerated] -Treatment Response Procedure Tolerated Well Pain Scale: 0-10 Numeric [Pain] -Is Patient Pain Free? Yes - Visit Discharge [Visit Discharge Information] -Discharge Condition Stable -Ambulatory Status Wheelchair [Facility Notification] -Other assisted living Musculoskeletal: No Tenderness to Palpation of Joints or Extremities, Muscle Wasting, Tenderness - Ulcer manipulation, - - Dorsal contraction of lesser toe and verification of fat is consistent with hammertoe deformity. No bogginess or fluctuance on palpation to the left limb. The compartments remain soft to palpate to left limb Neurological: - - Lack of normal epicritic sensation is consistent with neuropathy status Psych/Mental Status: Normal Affect, Appropriate Debridement Note Post-Debridement Measurements/Treatment [place] - Nurse 2 - General Ulcer CM Notes Start: 03/30/20 13:18 Freq: Status: Active Protocol: Activity Type Activity Date Activity User E-Sign Co-Sign Detail Recorded Client Recorded Date Recorded By Document 03/30/20 13:50 [id number] 03/30/20 13:59 03/30/20 13:50 Wound Center Nurse 2 #12- L 5TH TOE -Time 13:52 -Correct Patient Yes -Correct Side, Site, Position Yes -Correct Procedure Yes -Procedure Performed Yes -Type of Procedure Debridement -Clinical Debridement Subcutaneous -Tissue Removed Subcutaneous -Post Debridement (cm) - Length 0.2 -Post Debridement (cm) - Width 0.4 -Post Debridement (cm) - Depth 0.2 -Total Square (Post) (cm) 0.08 -Area of Debridement (cm) - Length 0.2 -Area of Debridement (cm) - Width 0.4 -Total Square (Area) (cm) 0.08 -Tunneling No -Undermining/Tunneling No -Circular Undermining No -Wound/Ulcer Outcome Not Healed -Ulcer Cleansing Rinsed/ Irrigated with Saline -Foul Odor after Cleansing No -Bioengineered Tissue No -Bleeding Controlled with Pressure -Offloading Yes -Type of Offloading Surgical Shoe -Treatment Response Procedure Tolerated Well -Debridement - Subq, 1st 20sq cm Yes #11- L MEDIAL LE CLUSTER -Time 13:56 -Correct Patient Yes -Correct Side, Site, Position Yes -Correct Procedure Yes -Procedure Performed Yes -Type of Procedure Debridement -Clinical Debridement Subcutaneous -Tissue Removed Subcutaneous -Post Debridement (cm) - Length 3.5 -Post Debridement (cm) - Width 2.5 -Post Debridement (cm) - Depth 0.2 -Total Square (Post) (cm) 8.75 -Area of Debridement (cm) - Length 0.3 -Area of Debridement (cm) - Width 0.2 -Total Square (Area) (cm) 0.06 -Tunneling No -Undermining/Tunneling No -Circular Undermining No -Wound/Ulcer Outcome Not Healed -Ulcer Cleansing Rinsed/ Irrigated with Saline -Foul Odor after Cleansing No -Bioengineered Tissue No -Bleeding Controlled with Pressure -Offloading No -Treatment Response Procedure Tolerated Well -Debridement - Subq, 1st 20sq cm No Pain Scale: 0-10 Numeric Is Patient Pain Free? Yes WC - Nurse 3 - General Ulcer D/C NN Start: 03/30/20 13:18 Freq: Status: Active Protocol: Activity Type Activity Date Activity User E-Sign Co-Sign Detail Recorded Client Recorded Date Recorded By Document 03/30/20 14:15 [facility] [id number] 03/30/20 14:16 [facility] 03/30/20 14:15 Wound Care Nurse 3 #12- L 5TH TOE -Ulcer Cleansing Rinsed/ Irrigated with Saline -Foul Odor after Cleansing No -Primary Dressing Applied C Hydrogel ($) -Primary Dressing Covered/Secured with Dry Gauze, Secured with Tape #11- L MEDIAL LE CLUSTER -Ulcer Cleansing Rinsed/ Irrigated with Saline -Foul Odor after Cleansing No -Primary Dressing Applied Other -Other Dressing hydrogel -Primary Dressing Covered/Secured with Dry Gauze & Roll Gauze, Secured with Tape Treatment Response Procedure Tolerated Well Pain Scale: 0-10 Numeric Is Patient Pain Free? Yes WC - Visit Discharge Discharge Condition Stable Ambulatory Status Wheelchair Other assisted living Wound debrided: leg cluster Laterality: Left Wound Grade/Stage: grade 1 Type of Debridement: Excisional debridement Anesthesia Used: 5% Lidocaine Gel Depth: in the subcutaneous layer Percentage of wound debrided: 10 Instrument Used: #15 blade Tissue Removed: fibrous, devitalized subcutaneous, biofilm, slough Severity: Fat Layer Exposed Amount of bleeding with debridement: Mild Bleeding Controlled with: Pressure Patient tolerated procedure well - Additional Wound Wound debrided: dorsal lateral fifth toe Laterality: Left Wound Grade/Stage: grade 1 Type of Debridement: Excisional debridement Anesthesia Used: 5% Lidocaine Gel Depth: in the subcutaneous layer Percentage of wound debrided: 100 Instrument Used: #15 blade Tissue Removed: fibrous, devitalized subcutaneous, biofilm, slough Severity: Fat Layer Exposed Amount of bleeding with debridement: Mild Bleeding Controlled with: Pressure Patient tolerated procedure: Patient tolerated procedure well Assessment/Plan Assessment: dorsal lateral fifth toe ulcer, fat layer exposed, no infection, rosales grade 1. medial leg cluster left, fat layer exposed no infection, rosales grade 1. diabetes with neuropathy. venous insufficiency suspected. peripheral vascular disease work up in process Plan: I reviewed and discussed her case including prior chart review. She is seen today for new ulcer sites to the left leg and fifth toe. To change the dressing daily with hydrogel. To wash with Dial soap and water. To wear compression including Tubigrip. To elevate and perform muscular leg contractions hourly. To avoid idle standing sitting. To reduce salt intake in diet to reduce lower extremity edema as well. I advised her on proper glycemic control and nutritional supplementation to optimize healing. To wear offloading surgical shoe to keep pressure off on the ulcer site. I recommend the application of a felt offloading pad to further avoid rubbing on the fifth toe ulcer. I recommend updating her labs to get an understanding of her overall health including CBC and CMP. She is reassured no local signs of infection are noted. To monitor closely for this. I also advised her to moisturize her leg and foot skin daily avoiding the webspaces to keep the skin integrity intact. She had noninvasive vascular arterial studies performed a little over 2 years ago and I recommend updating these including TINO segmental pressure and systolic toe pressures. I also recommend evaluating for venous insufficiency and an or chicho for venous Doppler with reflux evaluation was provided today as well. I answered all of her questions. To return to the wound healing center in 1 week. . macra 2019. Updated today medication and allergy reconciled and documented. Reviewed 12-30-2019 BMI is noted at 52.7 which is well above normal. This can impair healing and edema. I recommend she follows up with her primary care physician for diet and activity. We discussed dietary adjustments that can be performed at [facility] as well. Her blood pressure is also elevated at 159/66 and I recommend following with primary care physician.
[2020-04-13 13:20] VITALS: BP 124/76; PULSE 76; RESP 18; TEMP 37; BMI 49.7
--- NOTE | 2020-04-13 13:48 | PN.PCM_ITS ---
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 Status: Chronic Code(s): L97.922 - Non-pressure chronic ulcer of unspecified part of left lower leg with fat layer exposed (3) Hammertoe of left foot Status: Chronic Code(s): M20.42 - Other hammer toe(s) (acquired), left foot (4) Type 2 diabetes mellitus with diabetic polyneuropathy Status: Chronic Code(s): E11.42 - Type 2 diabetes mellitus with diabetic polyneuropathy (5) Ulcer of left foot with fat layer exposed Status: Chronic Code(s): L97.522 - Non-pressure chronic ulcer of other part of left foot with fat layer exposed Type of Wound Date of Service: 04/13/20 Chief Complaint: Left leg and left foot ulcers History of Wound: This is a 70-year-old white female with a past medical history as listed above who presents to the wound healing center today with complaints of nonhealing ulcer to the left fifth toe and left leg. She denies fever, chill, nausea, vomiting. She denies odor or redness. She resides in a [facility] at this time. Progress of Wound: Improving - Physical Exam Vital Signs Temp Pulse Resp BP 98.6 F 76 18 124/76 H 04/13/20 13:20 04/13/20 13:20 04/13/20 13:20 04/13/20 13:20 General: Alert, Oriented x3, Cooperative, No apparent distress HEENT: Atraumatic Extremities: No cyanosis, Capillary Refill Less than 3 Seconds, No Calf Tenderness, Diminished Peripheral Pulses, Edema Skin: Ulcer/ Wound - No purulence, erythema, streaking, odor, infection. Her adjacent skin is hairless and atrophic. There is no deep tissue exposure noted. Wound Measurements and Assessment WC - Nurse 1 - General Ulcer Measurement Start: 03/30/20 13:18 Freq: Status: Active Protocol: Activity Type Activity Date Activity User E-Sign Co-Sign Detail Recorded Client Recorded Date Recorded By Document 04/13/20 13:20 DL [id number] 04/13/20 13:32 DL 04/13/20 13:20 Wound Center Nurse 1 [Ulcer Assessment] #12- L 5TH TOE -Current Size (cm) - Length 0.5 -Current Size (cm) - Width 0.5 -Current Size (cm) - Depth 0.1 -Total Square Cm 0.25 -Photo Taken No -Exudate Amt None Present -Wound Margin Distinct, Outline Attached -Granulation Amt None Present (0 %) -Necrosis Amt Large (67-100%) -Necrotic Tissue Type Adherent Slough -Structure Exposed N/A -Texture (Beatris-wound Skin Appearance) Scarring -Moisture (Beatris-wound Skin Appearance Dry/Scaly ) -Color (Beatris-wound Skin Appearance) Hemosiderin Staining -Temperature (Beatris-wound Skin No Abnormality Appearance) (Pt Warm) -Tenderness on Palpation (Beatris-wound No Skin Appearance) -Ulcer Cleansing Rinsed/ Irrigated with Saline -Foul Odor after Cleansing No #11- L MEDIAL LE CLUSTER -Current Size (cm) - Length 5 -Current Size (cm) - Width 2.8 -Current Size (cm) - Depth 0.1 -Total Square Cm 14.0 -Photo Taken No -Exudate Amt None Present -Wound Margin Indistinct, Non -Visible -Granulation Amt Large (67-100%) -Granulation Quality [place] -Necrosis Amt Small (1-33%) -Necrotic Tissue Type Adherent Slough -Structure Exposed N/A -Texture (Beatris-wound Skin Appearance) Scarring -Moisture (Beatris-wound Skin Appearance Dry/Scaly ) -Color (Beatris-wound Skin Appearance) Hemosiderin Staining -Temperature (Beatris-wound Skin No Abnormality Appearance) (Pt Warm) -Tenderness on Palpation (Beatris-wound No Skin Appearance) -Ulcer Cleansing Wound Cleanser -Foul Odor after Cleansing No -Anesthetic Used 4% Lidocaine Solution [Edema Assessment] -Left Calf (cm) 48 -Left Ankle (cm) 28.3 Debridement Note Post-Debridement Measurements/Treatment WC - Nurse 2 - General Ulcer CM Notes Start: 03/30/20 13:18 Freq: Status: Active Protocol: Activity Type Activity Date Activity User E-Sign Co-Sign Detail Recorded Client Recorded Date Recorded By Document 03/30/20 13:50 MADYSON [id number] 03/30/20 13:59 MADYSON 03/30/20 13:50 Wound Center Nurse 2 #12- L 5TH TOE -Time 13:52 -Correct Patient Yes -Correct Side, Site, Position Yes -Correct Procedure Yes -Procedure Performed Yes -Type of Procedure Debridement -Clinical Debridement Subcutaneous -Tissue Removed Subcutaneous -Post Debridement (cm) - Length 0.2 -Post Debridement (cm) - Width 0.4 -Post Debridement (cm) - Depth 0.2 -Total Square (Post) (cm) 0.08 -Area of Debridement (cm) - Length 0.2 -Area of Debridement (cm) - Width 0.4 -Total Square (Area) (cm) 0.08 -Tunneling No -Undermining/Tunneling No -Circular Undermining No -Wound/Ulcer Outcome Not Healed -Ulcer Cleansing Rinsed/ Irrigated with Saline -Foul Odor after Cleansing No -Bioengineered Tissue No -Bleeding Controlled with Pressure -Offloading Yes -Type of Offloading Surgical Shoe -Treatment Response Procedure Tolerated Well -Debridement - Subq, 1st 20sq cm Yes #11- L MEDIAL LE CLUSTER -Time 13:56 -Correct Patient Yes -Correct Side, Site, Position Yes -Correct Procedure Yes -Procedure Performed Yes -Type of Procedure Debridement -Clinical Debridement Subcutaneous -Tissue Removed Subcutaneous -Post Debridement (cm) - Length 3.5 -Post Debridement (cm) - Width 2.5 -Post Debridement (cm) - Depth 0.2 -Total Square (Post) (cm) 8.75 -Area of Debridement (cm) - Length 0.3 -Area of Debridement (cm) - Width 0.2 -Total Square (Area) (cm) 0.06 -Tunneling No -Undermining/Tunneling No -Circular Undermining No -Wound/Ulcer Outcome Not Healed -Ulcer Cleansing Rinsed/ Irrigated with Saline -Foul Odor after Cleansing No -Bioengineered Tissue No -Bleeding Controlled with Pressure -Offloading No -Treatment Response Procedure Tolerated Well -Debridement - Subq, 1st 20sq cm No Pain Scale: 0-10 Numeric Is Patient Pain Free? Yes WC - Nurse 3 - General Ulcer D/C NN Start: 03/30/20 13:18 Freq: Status: Active Protocol: Activity Type Activity Date Activity User E-Sign Co-Sign Detail Recorded Client Recorded Date Recorded By Document 03/30/20 14:15 [facility] [id number] 03/30/20 14:16 [facility] 03/30/20 14:15 Wound Care Nurse 3 #12- L 5TH TOE -Ulcer Cleansing Rinsed/ Irrigated with Saline -Foul Odor after Cleansing No -Primary Dressing Applied C Hydrogel ($) -Primary Dressing Covered/Secured with Dry Gauze, Secured with Tape #11- L MEDIAL LE CLUSTER -Ulcer Cleansing Rinsed/ Irrigated with Saline -Foul Odor after Cleansing No -Primary Dressing Applied Other -Other Dressing hydrogel -Primary Dressing Covered/Secured with Dry Gauze & Roll Gauze, Secured with Tape Treatment Response Procedure Tolerated Well Pain Scale: 0-10 Numeric Is Patient Pain Free? Yes WC - Visit Discharge Discharge Condition Stable Ambulatory Status Wheelchair Other assisted living Wound debrided: dorsal hallux, dorsal 5th toe, lower leg Laterality: Left Wound Grade/Stage: grade 1 Type of Debridement: Excisional debridement Anesthesia Used: 5% Lidocaine Gel Depth: in the subcutaneous layer Percentage of wound debrided: 100 Instrument Used: #15 blade Tissue Removed: fibrous, devitalized subcutaneous, biofilm, slough Severity: Fat Layer Exposed Amount of bleeding with debridement: Mild Bleeding Controlled with: Pressure Patient tolerated procedure well Assessment/Plan Assessment: dorsal lateral fifth toe ulcer, fat layer exposed, no infection, rosales grade 1. dorsal hallux, left, no infection, rosales grade 1. medial leg cluster left, fat layer exposed no infection, rosales grade 1. diabetes with neuropathy. venous insufficiency suspected. peripheral vascular disease work up in process Plan: I reviewed and discussed her case. Subcutaneous excisional debridement was performed as noted in the clinical panel. To change the dressing daily with hydrogel. To wash with Dial soap and water. To wear compression including Tubigrip. To elevate and perform muscular leg contractions hourly. To avoid idle standing sitting. To reduce salt intake in diet to reduce lower extremity edema as well. I advised her on proper glycemic control and nutritional supplementation to optimize healing. To wear offloading surgical shoe to keep pressure off on the ulcer site. I recommend the application of a felt offloading pad to further avoid rubbing on the fifth toe ulcer. This was previously applied. I recommend updating her labs to get an understanding of her overall health including CBC and CMP. This is been requested from her correction facility and will be requested again. We do not get these labs I will reorder them. She was reassured no local signs of infection are noted. To monitor closely for this. I also advised her to moisturize her leg and foot skin daily avoiding the webspaces to keep the skin integrity intact. She had noninvasive vascular arterial studies performed a little over 2 years ago and I recommend updating these including TINO segmental pressure and systolic toe pressures. I also recommend evaluating for venous insufficiency and an order for venous Doppler with reflux evaluation. This was previously ordered and the scheduled appointment is still pending. I answered all of her questions. To return to the wound healing center in 1 week. . macra 2019. Updated today medication and allergy reconciled and documented. Reviewed 12-30-2019 BMI is noted at 52.7 which is well above normal. This can impair healing and edema. I recommend she follows up with her primary care physician for diet and activity. We discussed dietary adjustments that can be performed at [facility] as well. Her blood pressure is also elevated at 159/66 and I recommend following with primary care physician.
--- NOTE | 2020-04-19 10:09 | VDLE_ITS ---
Reason For Study: Edema lower legs RIGHT LEFT CFV is compressible, spontaneous, phasic, CFV is compressible, spontaneous, phasic, competent and demonstrates normal competent, and demonstrates normal augmentation. augmentation. FV is compressible, spontaneous, phasic, FV is compressible, spontaneous, phasic, competent and demonstrates normal competent and demonstrates normal augmentation. augmentation. POP V is compressible, spontaneous, phasic, POP V is compressible, spontaneous, phasic, competent and demonstrates normal competent and demonstrates normal augmentation. augmentation. T/P Trunk is compressible. T/P Trunk is compressible. PTV is compressible. PTV is compressible. RT PerV is compressible. LT PerV is compressible. SFJ is competent and measures 0.99 x 0.94 cm. SFJ is competent and measures 1.02 x 1.01 cm. GSV proximal thigh measures 0.62 x 0.63 cm. GSV proximal thigh measures 0.57 x 0.54 cm. GSV above knee is competent. GSV at knee measures 0.90 x 0.89 cm. GSV at knee measures 0.63 x 0.63 cm. GSV is competent throughout. GSV below knee is INCOMPETENT for greater INCOMPETENT draughtsman noted 11cm above than 0.5 seconds. medial malleolus. SSV proximal calf is competent and measures SSV proximal calf is competent and measures 0.33 x 0.31 cm. 0.37 x 0.34 cm. Procedure Exam performed in department. Unable to visualize bilateral distal FV due to pt body habitus. A preliminary report was called and/or faxed to . Interpretation Summary Deep veins of the lower extremities are bilaterally patent and compressible segmentally. There is no evidence of deep vein thrombosis on either side. Valvular competence appears intact within the proximal deep venous systems bilaterally. The great saphenous veins appear bilaterally patent and compressible segmentally. Sapheno-femoral junctions are bilaterally competent . The right great saphenous vein appears competent above the knee. The right great saphenous vein appears incompetent below the knee. The left great saphenous vein appears segmentally competent. Small saphenous veins are patent and competent bilaterally. An incompetent draughtsman vein is noted in the left calf, located 11 centimeters proximal to the left medial malleolus. Ordering Physician: Ivette Jay Referring Physician: Efren Argueta Performed By: Jacquelyn Monroy RVT
--- NOTE | 2020-04-19 10:09 | ART_ITS ---
Reason For Study: Lt leg ulcer Procedure A bilateral lower extremity continuous wave Doppler with analog waveform analysis,segmental pressures,and ankle brachial indexes without exercise. Left Segmental Pressures Left brachial= 132mmHg. Left posterior tibial artery = 141mmHg. Left dorsalis pedis artery = 143mmHg. Left digit = 109 mmHg. The left dorsalis pedis waveforms are triphasic. The left posterior tibial artery waveforms are triphasic. Right Segmental Pressures Right brachial= 142mmHg. Right posterior tibial artery = 142mmHg. Right dorsalis pedis artery = 141mmHg. Right digit = 109 mmHg. The right dorsalis pedis waveforms are triphasic. The right posterior tibial artery waveforms are triphasic. Indices The right ankle brachial index by the dorsalis pedis is 0.99. The right ankle brachial index by the posterior tibial artery is 1.00. The right digital-brachial index is 0.77. The left ankle brachial index by the dorsalis pedis is 1.01. The left ankle brachial index by the posterior tibial artery is 0.99. The left digital-brachial index is 0.77. Interpretation Summary Triphasic Doppler waveforms are noted at ankle level bilaterally. Pulse-volume recordings appear satisfactory at calf, ankle, and digital levels bilaterally. Resting ankle-brachial indices are normal bilaterally. Digital-brachial indices are normal bilaterally. There is no evidence of significant arterial occlusive disease in the lower extremities bilaterally. Ordering Physician: Ivette Jay Referring Physician: Efren Argueta Performed By: Jacquelyn Monroy RVT and Student
[2020-04-27 13:18] VITALS: BP 100/46; PULSE 76; RESP 18; TEMP 37; BMI 49.7
[2020-04-27 13:57] VITALS: BP 123/73; PULSE 74; RESP 16
--- NOTE | 2020-04-27 21:28 | PCM.WC.PN ---
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 Status: Chronic Code(s): L97.922 - Non-pressure chronic ulcer of unspecified part of left lower leg with fat layer exposed (3) Hammertoe of left foot Status: Chronic Code(s): M20.42 - Other hammer toe(s) (acquired), left foot (4) Type 2 diabetes mellitus with diabetic polyneuropathy Status: Chronic Code(s): E11.42 - Type 2 diabetes mellitus with diabetic polyneuropathy (5) Ulcer of left foot with fat layer exposed Status: Chronic Code(s): L97.522 - Non-pressure chronic ulcer of other part of left foot with fat layer exposed (6) Localized edema Status: Chronic Code(s): R60.0 - Localized edema Type of Wound Date of Service: 04/27/20 Chief Complaint: Left leg and left foot ulcers History of Wound: This is a 70-year-old white female with a past medical history as listed above who presents to the wound healing center today with complaints of nonhealing ulcer to the left fifth toe and left leg. She denies fever, chill, nausea, vomiting. She denies odor or redness. She resides in a skilled nursing at this time, [facility]. She had arterial venous studies performed and would like to review the results. Progress of Wound: Improving - Physical Exam Vital Signs Temp Pulse Resp BP 98.6 F 74 16 123/73 H 04/27/20 13:18 04/27/20 13:57 04/27/20 13:57 04/27/20 13:57 General: Alert, Oriented x3, Cooperative, No apparent distress HEENT: Atraumatic Extremities: No cyanosis, Capillary Refill Less than 3 Seconds, No Calf Tenderness, Diminished Peripheral Pulses, Edema Skin: Ulcer/ Wound - No purulence, erythema, streaking, odor, infection. Her adjacent skin is hairless and atrophic. Wound Measurements and Assessment WC - Nurse 1 - General Ulcer Measurement Start: 03/30/20 13:18 Freq: Status: Active Protocol: Activity Type Activity Date Activity User E-Sign Co-Sign Detail Recorded Client Recorded Date Recorded By Document 04/27/20 13:18 [id number] 04/27/20 13:28 04/27/20 13:18 Wound Center Nurse 1 [Ulcer Assessment] #12- L 5TH TOE -Combined with other wound No -Current Size (cm) - Length 0.5 -Current Size (cm) - Width 0.5 -Current Size (cm) - Depth 0.2 -Total Square Cm 0.25 -Tunneling No -Undermining/Tunneling No -Circular Undermining No -Exudate Amt Small -Exudate Type Serosanguineous -Wound Margin Thickened & Rolled Under -Granulation Amt Medium (34-66%) -Granulation Quality [place],Red -Slough/Fibrin Yes -Necrosis Amt Small (1-33%) -Necrotic Tissue Type Adherent Slough -Structure Exposed N/A -Texture (Beatris-wound Skin Appearance) Assessed -Moisture (Beatris-wound Skin Appearance Assessed,Dry/ ) Scaly -Color (Beatris-wound Skin Appearance) Assessed -Temperature (Beatris-wound Skin No Abnormality Appearance) (Pt Warm) -Tenderness on Palpation (Beatris-wound No Skin Appearance) -Ulcer Cleansing Wound Cleanser -Foul Odor after Cleansing No -Anesthetic Used 5% Lidocaine Gel #11- L MEDIAL LE CLUSTER -Combined with other wound No -Current Size (cm) - Length 17 -Current Size (cm) - Width 5.5 -Current Size (cm) - Depth 0.1 -Total Square Cm 93.5 -Tunneling No -Undermining/Tunneling No -Circular Undermining No -Exudate Amt Small -Exudate Type Serosanguineous -Wound Margin Thickened & Rolled Under -Granulation Amt Medium (34-66%) -Granulation Quality [place],Red -Slough/Fibrin Yes -Necrosis Amt Small (1-33%) -Necrotic Tissue Type Adherent Slough -Structure Exposed N/A -Texture (Beatris-wound Skin Appearance) Assessed -Moisture (Beatris-wound Skin Appearance Dry/Scaly ) -Color (Beatris-wound Skin Appearance) Assessed -Temperature (Beatris-wound Skin No Abnormality Appearance) (Pt Warm) -Tenderness on Palpation (Beatris-wound No Skin Appearance) -Ulcer Cleansing Wound Cleanser -Foul Odor after Cleansing No -Anesthetic Used 5% Lidocaine Gel [Edema Assessment] -Lower Limb Edema Present Yes -Left Calf (cm) 48.5 -Left Ankle (cm) 23 WC - Nurse 2 - General Ulcer CM Notes Start: 03/30/20 13:18 Freq: Status: Active Protocol: Activity Type Activity Date Activity User E-Sign Co-Sign Detail Recorded Client Recorded Date Recorded By Document 04/27/20 13:39 MADYSON [id number] 04/27/20 13:43 MADYSON 04/27/20 13:39 Wound Center Nurse 2 [Procedure/Treatment] #12- L 5TH TOE -Time 13:39 -Correct Patient Yes -Correct Side, Site, Position Yes -Correct Procedure Yes -Procedure Performed Yes -Type of Procedure Debridement -Clinical Debridement Subcutaneous -Tissue Removed Subcutaneous -Post Debridement (cm) - Length 0.6 -Post Debridement (cm) - Width 0.5 -Post Debridement (cm) - Depth 0.2 -Total Square (Post) (cm) 0.30 -Area of Debridement (cm) - Length 0.6 -Area of Debridement (cm) - Width 0.5 -Total Square (Area) (cm) 0.30 -Tunneling No -Undermining/Tunneling No -Circular Undermining No -Wound/Ulcer Outcome Not Healed -Ulcer Cleansing Rinsed/ Irrigated with Saline -Foul Odor after Cleansing No -Bioengineered Tissue No -Bleeding Controlled with Pressure -Offloading Yes -Type of Offloading Surgical Shoe -Treatment Response Procedure Tolerated Well -Debridement - Subq, 20sq cm Yes #11- L MEDIAL LE CLUSTER -Time 13:40 -Correct Patient Yes -Correct Side, Site, Position Yes -Correct Procedure Yes -Procedure Performed Yes -Type of Procedure Debridement -Clinical Debridement Subcutaneous -Tissue Removed Subcutaneous -Post Debridement (cm) - Length 0.6 -Post Debridement (cm) - Width 5.5 -Post Debridement (cm) - Depth 0.1 -Total Square (Post) (cm) 3.30 -Area of Debridement (cm) - Length 0.1 -Area of Debridement (cm) - Width 0.5 -Total Square (Area) (cm) 0.05 -Tunneling No -Undermining/Tunneling No -Circular Undermining No -Wound/Ulcer Outcome Not Healed -Ulcer Cleansing Rinsed/ Irrigated with Saline -Foul Odor after Cleansing No -Bioengineered Tissue No -Bleeding Controlled with Pressure -Offloading No -Treatment Response Procedure Tolerated Well -Debridement - Subq, 1st 20sq cm No [See Physician Procedure note for Specifics] Pain Scale: 0-10 Numeric [Pain] -Is Patient Pain Free? Yes - Nurse 3 - General Ulcer D/C NN Start: 03/30/20 13:18 Freq: Status: Active Protocol: Activity Type Activity Date Activity User E-Sign Co-Sign Detail Recorded Client Recorded Date Recorded By Document 04/27/20 13:57 [facility] [id number] 04/27/20 13:58 [facility] 04/27/20 13:57 Wound Care Nurse 3 [Wound Dressing] #12- L 5TH TOE -Ulcer Cleansing Rinsed/ Irrigated with Saline -Foul Odor after Cleansing No -Primary Dressing Applied C Hydrogel ($) -Primary Dressing Covered/Secured Dry Gauze & with Roll Gauze, Secured with Tape #11- L MEDIAL LE CLUSTER -Ulcer Cleansing Rinsed/ Irrigated with Saline -Foul Odor after Cleansing No -Primary Dressing Applied Other -Other Dressing hydrogel -Primary Dressing Covered/Secured Dry Gauze & with Roll Gauze, Secured with Tape [Post Procedure Tolerated] -Treatment Response Procedure Tolerated Well Vital Signs [Pulse] -Pulse Rate (60-100) 74 -Pulse Location Monitor [Respirations] -Respiratory Rate (12-18) 16 -Respiratory rate source Observation -Oxygen Delivery Method Room Air [Blood Pressure] -Blood Pressure (90/60-120/80) 123/73 H -Blood Pressure Mean (mm Hg) 89 -Source Monitor -Position Sitting Pain Scale: 0-10 Numeric [Pain] -Is Patient Pain Free? Yes - Visit Discharge [Visit Discharge Information] -Discharge Condition Stable -Ambulatory Status Wheelchair [Facility Notification] -Other assisted living Musculoskeletal: No Tenderness to Palpation of Joints or Extremities, Muscle Wasting Neurological: - - Lack of normal epicritic sensation light touch is consistent with neuropathy status Psych/Mental Status: Normal Affect, Appropriate Debridement Note Post-Debridement Measurements/Treatment - Nurse 2 - General Ulcer CM Notes Start: 03/30/20 13:18 Freq: Status: Active Protocol: Activity Type Activity Date Activity User E-Sign Co-Sign Detail Recorded Client Recorded Date Recorded By Document 03/30/20 13:50 [id number] 03/30/20 13:59 Document 04/13/20 13:46 [id number] 04/13/20 13:49 Document 04/27/20 13:39 [id number] 04/27/20 13:43 03/30/20 04/13/20 04/27/20 13:50 13:46 13:39 Wound Center Nurse 2 #12- L 5TH TOE -Time 13:52 13:46 13:39 -Correct Patient Yes Yes Yes -Correct Side, Site, Position Yes Yes Yes -Correct Procedure Yes Yes Yes -Procedure Performed Yes Yes Yes -Type of Procedure Debridement Debridement Debridement -Clinical Debridement Subcutaneous Subcutaneous Subcutaneous -Tissue Removed Subcutaneous Subcutaneous Subcutaneous -Post Debridement (cm) - Length 0.2 0.3 0.6 -Post Debridement (cm) - Width 0.4 0.3 0.5 -Post Debridement (cm) - Depth 0.2 0.1 0.2 -Total Square (Post) (cm) 0.08 0.09 0.30 -Area of Debridement (cm) - Length 0.2 0.3 0.6 -Area of Debridement (cm) - Width 0.4 0.3 0.5 -Total Square (Area) (cm) 0.08 0.09 0.30 -Tunneling No No No -Undermining/Tunneling No No No -Circular Undermining No No No -Wound/Ulcer Outcome Not Healed Not Healed Not Healed -Ulcer Cleansing Rinsed/ Rinsed/ Rinsed/ Irrigated with Irrigated with Irrigated with Saline Saline Saline -Foul Odor after Cleansing No No No -Bioengineered Tissue No No No -Bleeding Controlled with Pressure Pressure Pressure -Offloading Yes No Yes -Type of Offloading Surgical Shoe Surgical Shoe -Treatment Response Procedure Procedure Procedure Tolerated Well Tolerated Well Tolerated Well -Debridement - Subq, 1st 20sq cm Yes Yes Yes #11- L MEDIAL LE CLUSTER -Time 13:56 13:48 13:40 -Correct Patient Yes Yes Yes -Correct Side, Site, Position Yes Yes Yes -Correct Procedure Yes Yes Yes -Procedure Performed Yes Yes Yes -Type of Procedure Debridement Debridement Debridement -Clinical Debridement Subcutaneous Subcutaneous Subcutaneous -Tissue Removed Subcutaneous Subcutaneous Subcutaneous -Post Debridement (cm) - Length 3.5 3.5 0.6 -Post Debridement (cm) - Width 2.5 2.5 5.5 -Post Debridement (cm) - Depth 0.2 0.1 0.1 -Total Square (Post) (cm) 8.75 8.75 3.30 -Area of Debridement (cm) - Length 0.3 3.5 0.1 -Area of Debridement (cm) - Width 0.2 2.5 0.5 -Total Square (Area) (cm) 0.06 8.75 0.05 -Tunneling No No No -Undermining/Tunneling No No No -Circular Undermining No No No -Wound/Ulcer Outcome Not Healed Not Healed Not Healed -Ulcer Cleansing Rinsed/ Rinsed/ Rinsed/ Irrigated with Irrigated with Irrigated with Saline Saline Saline -Foul Odor after Cleansing No No No -Bioengineered Tissue No No No -Bleeding Controlled with Pressure Pressure Pressure -Offloading No No No -Treatment Response Procedure Procedure Procedure Tolerated Well Tolerated Well Tolerated Well -Debridement - Subq, 1st 20sq cm No No No Pain Scale: 0-10 Numeric Is Patient Pain Free? Yes Yes Yes WC - Nurse 3 - General Ulcer D/C NN Start: 03/30/20 13:18 Freq: Status: Active Protocol: Activity Type Activity Date Activity User E-Sign Co-Sign Detail Recorded Client Recorded Date Recorded By Document 03/30/20 14:15 [facility] [id number] 03/30/20 14:16 [facility] Document 04/13/20 13:55 [facility] [id number] 04/13/20 13:57 [facility] Document 04/27/20 13:57 [facility] [id number] 04/27/20 13:58 [facility] 03/30/20 04/13/20 04/27/20 14:15 13:55 13:57 Wound Care Nurse 3 #12- L 5TH TOE -Ulcer Cleansing Rinsed/ Rinsed/ Rinsed/ Irrigated with Irrigated with Irrigated with Saline Saline Saline -Foul Odor after Cleansing No No No -Primary Dressing Applied C Hydrogel ($) C Hydrogel ($) C Hydrogel ($) -Primary Dressing Covered/Secured with Dry Gauze, Dry Gauze & Dry Gauze & Secured with Roll Gauze, Roll Gauze, Tape Secured with Secured with Tape Tape -Other Covering drsg per maria teresa landeros rn #11- L MEDIAL LE CLUSTER -Ulcer Cleansing Rinsed/ Rinsed/ Rinsed/ Irrigated with Irrigated with Irrigated with Saline Saline Saline -Foul Odor after Cleansing No No No -Primary Dressing Applied Other Other Other -Other Dressing hydrogel hydrogel, fuad hydrogel per maria teresa landeros rn -Primary Dressing Covered/Secured with Dry Gauze & Dry Gauze & Dry Gauze & Roll Gauze, Roll Gauze, Roll Gauze, Secured with Secured with Secured with Tape Tape Tape Treatment Response Procedure Procedure Procedure Tolerated Well Tolerated Well Tolerated Well Pain Scale: 0-10 Numeric Is Patient Pain Free? Yes Yes Vital Signs Pulse Rate (60-100) 74 Pulse Location Monitor Respiratory Rate (12-18) 16 Respiratory rate source Observation Oxygen Delivery Method Room Air Blood Pressure (90/60-120/80) 123/73 H Blood Pressure Mean (mm Hg) 89 Source Monitor Position Sitting WC - Visit Discharge Discharge Condition Stable Stable Stable Ambulatory Status Wheelchair Wheelchair Wheelchair Transportation [facility] Other assisted living assisted living assisted living Wound debrided: cluster leg (15%), dorsal lateral fifth toe Laterality: Left Wound Grade/Stage: grade 1 Anesthesia Used: 5% Lidocaine Gel Depth: in the subcutaneous layer Percentage of wound debrided: 100 Instrument Used: #15 blade Tissue Removed: fibrous, devitalized subcutaneous, biofilm, slough Severity: Fat Layer Exposed Amount of bleeding with debridement: Mild Bleeding Controlled with: Pressure Patient tolerated procedure well Assessment/Plan Assessment: dorsal lateral fifth toe ulcer, fat layer exposed, no infection, rosales grade 1. dorsal hallux, healed. medial leg cluster left, fat layer exposed no infection, rosales grade 1. diabetes with neuropathy. venous insufficiency left lower extremity. peripheral vascular disease has been ruled out Plan: I reviewed and discussed her case. Subcutaneous excisional debridement was performed as noted in the clinical panel. To change the dressing daily with hydrogel. To wash with Dial soap and water. To wear compression including Tubigrip. To elevate and perform muscular leg contractions hourly. To avoid idle standing sitting. To reduce salt intake in diet to reduce lower extremity edema as well. I advised her on proper glycemic control and nutritional supplementation to optimize healing. To wear offloading surgical shoe to keep pressure off on the ulcer site. I recommend the application of a felt offloading pad to further avoid rubbing on the fifth toe ulcer. This was previously applied. I recommend updating her labs to get an understanding of her overall health including CBC and CMP. [facility] and will be requested again. We do not get these labs I will reorder them. She was reassured no local signs of infection are noted. To monitor closely for this. I also advised her to moisturize her leg and foot skin daily avoiding the webspaces to keep the skin integrity intact. Her noninvasive arterial study results were reviewed and she has appropriate waveforms without evidence of occlusive arterial disease. I also recommend evaluating for venous insufficiency . It appears she has some venous insufficiency in the left lower extremity. Given her arterial studies look good, I recommend increasing her compression to double Tubigrip. A vein specialist referral will also be considered. I answered all of her questions. To return to the wound healing center in 1 week. . macra 2019. Updated today medication and allergy reconciled and documented. Reviewed 12-30-2019 BMI is noted at 52.7 which is well above normal. This can impair healing and edema. I recommend she follows up with her primary care physician for diet and activity. We discussed dietary adjustments that can be performed at [facility] as well. Her blood pressure is also elevated at 159/66 and I recommend following with primary care physician.
== END 2020-04-27 23:59 ==
LOC: WC 13:00
PROVIDERS: PCP Family Medicine; Referring Provider Podiatrist; Visit Provider Podiatrist
DX: E11.621 Type 2 diabetes mellitus with foot ulcer (principal); E11.622 Type 2 diabetes mellitus with other skin ulcer; E11.42 Type 2 diabetes mellitus with diabetic polyneuropathy; L97.522 Non-pressure chronic ulcer of other part of left foot with fat layer exposed; M20.42 Other hammer toe(s) (acquired), left foot; I87.2 Venous insufficiency (chronic) (peripheral); L97.822 Non-pressure chronic ulcer of other part of left lower leg with fat layer exposed; R60.0 Localized edema
CPT/HCPCS: 11042; 93923; 93970; 99213; G0463

== ENCOUNTER 2020-05-11 13:18 | Outpatient (RCR) | payer MEDICARE, MEDICAID, SELFPAY ==
[2020-04-28 00:14] VITALS: BP 123/73; PULSE 74; RESP 16; TEMP 37
[2020-05-11 13:41] VITALS: BP 147/48; PULSE 78; RESP 18; TEMP 36.6; BMI 49.7
--- NOTE | 2020-05-11 14:52 | PN.PCM_ITS ---
(1) Ulcer of left foot with fat layer exposed Status: Chronic Code(s): L97.522 - Non-pressure chronic ulcer of other part of left foot with fat layer exposed (2) Bilateral lower extremity edema Status: Chronic Code(s): R60.0 - Localized edema (3) Chronic stasis dermatitis of left lower extremity Status: Chronic Code(s): I87.2 - Venous insufficiency (chronic) (peripheral) (4) Venous insufficiency Status: Chronic Code(s): I87.2 - Venous insufficiency (chronic) (peripheral) (5) Type 2 diabetes mellitus with diabetic polyneuropathy Status: Chronic Code(s): E11.42 - Type 2 diabetes mellitus with diabetic polyneuropathy (6) Localized edema Status: Chronic Code(s): R60.0 - Localized edema Type of Wound Date of Service: 05/11/20 Chief Complaint: Left leg and left foot ulcers History of Wound: This is a 70-year-old white female with a past medical history as listed above who presents to the wound healing center today with complaints of nonhealing ulcer to the left fifth toe and left leg. She denies fever, chill, nausea, vomiting. She denies odor or redness. She resides in a long-term at this time, [facility]. Progress of Wound: Improving foot. Healed leg - Physical Exam Vital Signs Temp Pulse Resp BP 97.8 F 78 18 147/48 H 05/11/20 13:41 05/11/20 13:41 05/11/20 13:41 05/11/20 13:41 General: Alert, Oriented x3, Cooperative, No apparent distress Extremities: No cyanosis, Capillary Refill Less than 3 Seconds, No Calf Tenderness, Diminished Peripheral Pulses, Edema Skin: Ulcer/ Wound - Full epithelialization of legs are noted. Skin discontinuity to dorsal hallux and dorsal lateral fifth toe. No purulence, erythema, streaking, odor, infection. Wound Measurements and Assessment WC - Nurse 1 - General Ulcer Measurement Start: 05/11/20 13:41 Freq: Status: Active Protocol: Activity Type Activity Date Activity User E-Sign Co-Sign Detail Recorded Client Recorded Date Recorded By Document 05/11/20 13:41 DL [id number] 05/11/20 13:48 DL 05/11/20 13:41 Wound Center Nurse 1 [Ulcer Assessment] #12- L 5TH TOE -Current Size (cm) - Length 0.9 -Current Size (cm) - Width 0.7 -Current Size (cm) - Depth 0.2 -Total Square Cm 0.63 -Photo Taken No -Exudate Amt None Present -Wound Margin Thickened -Granulation Amt Large (67-100%) -Granulation Quality Red -Necrosis Amt Small (1-33%) -Necrotic Tissue Type Adherent Slough -Structure Exposed N/A -Texture (Beatris-wound Skin Appearance) Localized Edema ,Scarring -Moisture (Beatris-wound Skin Appearance Dry/Scaly ) -Color (Beatris-wound Skin Appearance) Erythema,Palor -Temperature (Beatris-wound Skin No Abnormality Appearance) (Pt Warm) -Tenderness on Palpation (Beatris-wound No Skin Appearance) -Ulcer Cleansing Rinsed/ Irrigated with Saline -Foul Odor after Cleansing No -Anesthetic Used 5% Lidocaine Gel #11- L MEDIAL LE CLUSTER -Current Size (cm) - Length 0.1 -Current Size (cm) - Width 0.1 -Current Size (cm) - Depth 0.1 -Total Square Cm 0.01 -Photo Taken No -Exudate Amt None Present -Wound Margin Flat & Intact -Granulation Amt Large (67-100%) -Granulation Quality Frisbee -Necrosis Amt None Present (0 %) -Structure Exposed N/A -Texture (Beatris-wound Skin Appearance) Scarring -Moisture (Beatris-wound Skin Appearance Dry/Scaly ) -Color (Beatris-wound Skin Appearance) Hemosiderin Staining -Temperature (Beatris-wound Skin No Abnormality Appearance) (Pt Warm) -Tenderness on Palpation (Beatris-wound No Skin Appearance) -Ulcer Cleansing Rinsed/ Irrigated with Saline -Foul Odor after Cleansing No [Edema Assessment] -Right Calf (cm) 46.3 -Right Ankle (cm) 22.3 -Left Calf (cm) 47 -Left Ankle (cm) 23.1 WC - Nurse 2 - General Ulcer CM Notes Start: 05/11/20 13:41 Freq: Status: Active Protocol: Activity Type Activity Date Activity User E-Sign Co-Sign Detail Recorded Client Recorded Date Recorded By Document 05/11/20 14:06 MADYSON [id number] 05/11/20 14:14 MADYSON 05/11/20 14:06 Wound Center Nurse 2 [Procedure/Treatment] 13-left great toe ulcer -Time 14:10 -Correct Patient Yes -Correct Side, Site, Position Yes -Correct Procedure Yes -Procedure Performed Yes -Type of Procedure Debridement -Clinical Debridement Subcutaneous -Tissue Removed Subcutaneous -Post Debridement (cm) - Length 0.2 -Post Debridement (cm) - Width 0.5 -Post Debridement (cm) - Depth 0.2 -Total Square (Post) (cm) 0.10 -Area of Debridement (cm) - Length 0.2 -Area of Debridement (cm) - Width 0.5 -Total Square (Area) (cm) 0.10 -Tunneling No -Undermining/Tunneling No -Circular Undermining No -Wound/Ulcer Outcome Not Healed -Ulcer Cleansing Rinsed/ Irrigated with Saline -Foul Odor after Cleansing No -Bioengineered Tissue No -Bleeding Controlled with Pressure -Offloading Yes -Type of Offloading Surgical Shoe -Treatment Response Procedure Tolerated Well -Debridement - Subq, 1st 20sq cm No #12- L 5TH TOE -Time 14:06 -Correct Patient Yes -Correct Side, Site, Position Yes -Correct Procedure Yes -Procedure Performed Yes -Type of Procedure Debridement -Clinical Debridement Subcutaneous -Tissue Removed Subcutaneous -Post Debridement (cm) - Length 0.9 -Post Debridement (cm) - Width 0.9 -Post Debridement (cm) - Depth 0.2 -Total Square (Post) (cm) 0.81 -Area of Debridement (cm) - Length 0.9 -Area of Debridement (cm) - Width 0.9 -Total Square (Area) (cm) 0.81 -Tunneling No -Undermining/Tunneling No -Circular Undermining No -Wound/Ulcer Outcome Not Healed -Ulcer Cleansing Rinsed/ Irrigated with Saline -Foul Odor after Cleansing No -Bioengineered Tissue No -Bleeding Controlled with Pressure -Offloading No -Treatment Response Procedure Tolerated Well -Debridement - Subq, 1st 20sq cm Yes #11- L MEDIAL LE CLUSTER -Correct Patient No -Correct Side, Site, Position No -Correct Procedure No -Procedure Performed No -Post Debridement (cm) - Length 0 -Post Debridement (cm) - Width 0 -Post Debridement (cm) - Depth 0 -Total Square (Post) (cm) 0 -Area of Debridement (cm) - Length 0 -Area of Debridement (cm) - Width 0 -Total Square (Area) (cm) 0 -Wound/Ulcer Outcome Healed- Epithelialized [See Physician Procedure note for Specifics] Pain Scale: 0-10 Numeric [Pain] -Is Patient Pain Free? Yes - Nurse 3 - General Ulcer D/C NN Start: 05/11/20 13:41 Freq: Status: Active Protocol: Activity Type Activity Date Activity User E-Sign Co-Sign Detail Recorded Client Recorded Date Recorded By Document 05/11/20 14:29 [facility] [id number] 05/11/20 14:30 [facility] 05/11/20 14:29 Wound Care Nurse 3 [Wound Dressing] 13-left great toe ulcer -Ulcer Cleansing Rinsed/ Irrigated with Saline -Foul Odor after Cleansing No -Primary Dressing Applied C Hydrogel ($) -Primary Dressing Covered/Secured Dry Gauze & with Roll Gauze, Secured with Tape #12- L 5TH TOE -Ulcer Cleansing Rinsed/ Irrigated with Saline -Foul Odor after Cleansing No -Primary Dressing Applied Other -Other Dressing hydrogel -Primary Dressing Covered/Secured Dry Gauze & with Roll Gauze, Secured with Tape Pain Scale: 0-10 Numeric [Pain] -Is Patient Pain Free? Yes - Visit Discharge [Visit Discharge Information] -Discharge Condition Stable -Ambulatory Status Wheelchair [Facility Notification] -Facility Type [facility] Musculoskeletal: No Tenderness to Palpation of Joints or Extremities, Muscle Wasting, - - Dorsal contracture and varus rotation of his toes confused with hammertoe deformity. Neurological: - - Lack of normal epicritic sensation Psych/Mental Status: Normal Affect, Appropriate Debridement Note Post-Debridement Measurements/Treatment WC - Nurse 2 - General Ulcer CM Notes Start: 05/11/20 13:41 Freq: Status: Active Protocol: Activity Type Activity Date Activity User E-Sign Co-Sign Detail Recorded Client Recorded Date Recorded By Document 05/11/20 14:06 [id number] 05/11/20 14:14 05/11/20 14:06 Wound Center Nurse 2 13-left great toe ulcer -Time 14:10 -Correct Patient Yes -Correct Side, Site, Position Yes -Correct Procedure Yes -Procedure Performed Yes -Type of Procedure Debridement -Clinical Debridement Subcutaneous -Tissue Removed Subcutaneous -Post Debridement (cm) - Length 0.2 -Post Debridement (cm) - Width 0.5 -Post Debridement (cm) - Depth 0.2 -Total Square (Post) (cm) 0.10 -Area of Debridement (cm) - Length 0.2 -Area of Debridement (cm) - Width 0.5 -Total Square (Area) (cm) 0.10 -Tunneling No -Undermining/Tunneling No -Circular Undermining No -Wound/Ulcer Outcome Not Healed -Ulcer Cleansing Rinsed/ Irrigated with Saline -Foul Odor after Cleansing No -Bioengineered Tissue No -Bleeding Controlled with Pressure -Offloading Yes -Type of Offloading Surgical Shoe -Treatment Response Procedure Tolerated Well -Debridement - Subq, 1st 20sq cm No #12- L 5TH TOE -Time 14:06 -Correct Patient Yes -Correct Side, Site, Position Yes -Correct Procedure Yes -Procedure Performed Yes -Type of Procedure Debridement -Clinical Debridement Subcutaneous -Tissue Removed Subcutaneous -Post Debridement (cm) - Length 0.9 -Post Debridement (cm) - Width 0.9 -Post Debridement (cm) - Depth 0.2 -Total Square (Post) (cm) 0.81 -Area of Debridement (cm) - Length 0.9 -Area of Debridement (cm) - Width 0.9 -Total Square (Area) (cm) 0.81 -Tunneling No -Undermining/Tunneling No -Circular Undermining No -Wound/Ulcer Outcome Not Healed -Ulcer Cleansing Rinsed/ Irrigated with Saline -Foul Odor after Cleansing No -Bioengineered Tissue No -Bleeding Controlled with Pressure -Offloading No -Treatment Response Procedure Tolerated Well -Debridement - Subq, 1st 20sq cm Yes #11- L MEDIAL LE CLUSTER -Correct Patient No -Correct Side, Site, Position No -Correct Procedure No -Procedure Performed No -Post Debridement (cm) - Length 0 -Post Debridement (cm) - Width 0 -Post Debridement (cm) - Depth 0 -Total Square (Post) (cm) 0 -Area of Debridement (cm) - Length 0 -Area of Debridement (cm) - Width 0 -Total Square (Area) (cm) 0 -Wound/Ulcer Outcome Healed- Epithelialized Pain Scale: 0-10 Numeric Is Patient Pain Free? Yes WC - Nurse 3 - General Ulcer D/C NN Start: 05/11/20 13:41 Freq: Status: Active Protocol: Activity Type Activity Date Activity User E-Sign Co-Sign Detail Recorded Client Recorded Date Recorded By Document 05/11/20 14:29 [facility] [id number] 05/11/20 14:30 [facility] 05/11/20 14:29 Wound Care Nurse 3 13-left great toe ulcer -Ulcer Cleansing Rinsed/ Irrigated with Saline -Foul Odor after Cleansing No -Primary Dressing Applied C Hydrogel ($) -Primary Dressing Covered/Secured with Dry Gauze & Roll Gauze, Secured with Tape #12- L 5TH TOE -Ulcer Cleansing Rinsed/ Irrigated with Saline -Foul Odor after Cleansing No -Primary Dressing Applied Other -Other Dressing hydrogel -Primary Dressing Covered/Secured with Dry Gauze & Roll Gauze, Secured with Tape Pain Scale: 0-10 Numeric Is Patient Pain Free? Yes WC - Visit Discharge Discharge Condition Stable Ambulatory Status Wheelchair Facility Type [facility] Wound debrided: dorsal hallux, dorsal fifth toe Laterality: Left Wound Grade/Stage: grade 1 Type of Debridement: Excisional debridement Anesthesia Used: 5% Lidocaine Gel Depth: in the subcutaneous layer Percentage of wound debrided: 100 Instrument Used: #15 blade Tissue Removed: fibrous, devitalized subcutaneous, biofilm, slough Severity: Fat Layer Exposed Amount of bleeding with debridement: Mild Bleeding Controlled with: Pressure Patient tolerated procedure well Assessment/Plan Active Problems Bilateral lower extremity edema (Chronic) Chronic stasis dermatitis of left lower extremity (Chronic) Venous insufficiency (Chronic) Type 2 diabetes mellitus with diabetic polyneuropathy (Chronic) Ulcer of left foot with fat layer exposed (Chronic) Localized edema (Chronic) Assessment: dorsal lateral fifth toe ulcer, fat layer exposed, no infection, rosales grade 1. dorsal hallux, returned. medial leg cluster left, healed. diabetes with neuropathy. venous insufficiency left lower extremity. peripheral vascular disease has been ruled out Plan: I reviewed and discussed her case. Subcutaneous excisional debridement was performed as noted in the clinical panel. To change the dressing daily with hydrogel. To wash with Dial soap and water. To wear compression including Tubigrip. To elevate and perform muscular leg contractions hourly. To avoid idle standing sitting. To reduce salt intake in diet to reduce lower extremity edema as well. I advised her on proper glycemic control and nutritional supplementation to optimize healing. To wear offloading surgical shoe to keep pressure off on the ulcer site. I recommend the application of a felt offloading pad to further avoid rubbing on the fifth toe ulcer. This was previously applied. She relates she has been wearing house slippers and I advised her to discontinue doing this. I recommend updating her labs to get an understanding of her overall health including CBC and CMP. Her labs were reviewed without gross abnormalities previously. She was reassured no local s igns of infection are noted. To monitor closely for this. I also advised her to moisturize her leg and foot skin daily avoiding the webspaces to keep the skin integrity intact. Her noninvasive arterial study results were reviewed and she has appropriate waveforms without evidence of occlusive arterial disease. I also recommend evaluating for venous insufficiency . It appears she has some venous insufficiency in the left lower extremity. Given her arterial studies look good, I recommend increasing her compression to double Tubigrip. A vein specialist referral will also be considered. I recommend a referral to vascular specialist, Dr. Roberts for additional compression versus interventional recommendations. I answered all of her questions. To return to the wound healing center in 1 week. . [facility] [email or web address]. Updated today medication and allergy reconciled and documented. Reviewed 12-30-2019 BMI is noted at 52.7 which is well above normal. This can impair healing and edema. I recommend she follows up with her primary care physician for diet and activity. We discussed dietary adjustments that can be performed at [facility] as well. Her blood pressure is also elevated at 159/66 and I recommend following with primary care physician.
== END 2020-05-28 23:59 ==
LOC: WC 13:18
PROVIDERS: PCP Family Medicine; Referring Provider Podiatrist; Visit Provider Podiatrist
DX: E11.621 Type 2 diabetes mellitus with foot ulcer (principal); E11.42 Type 2 diabetes mellitus with diabetic polyneuropathy; L97.522 Non-pressure chronic ulcer of other part of left foot with fat layer exposed; I87.2 Venous insufficiency (chronic) (peripheral); R60.0 Localized edema
CPT/HCPCS: 11042

== ENCOUNTER 2021-03-27 14:40 | Outpatient (RCR) | payer MEDICARE, MEDICAID, SELFPAY ==
[2021-03-23 13:38] VITALS: BP 115/65; PULSE 84; RESP 16; TEMP 37.2
--- NOTE | 2021-03-23 17:02 | PCM.WC.HP ---
History of Present Illness Date of Service: 03/23/21 Chief Complaint: Bilateral leg and bilateral foot ulcers History of Wound: This is a 71-year-old white female who presents to the wound healing center today with complaint of multiple wounds to her bilateral lower extremities. She has a past medical history as listed above significant for lymphedema, venous insufficiency, elephantiasis, type 2 diabetes mellitus, RILEY, hypertension, and morbid obesity. She reports that the majority of these wounds have been present since September 2020 and that she currently resides at [facility] and has had weekly wound visits from the wound nurse there. She has been utilizing compression and also utilizing antibiotic ointment covering with gauze. She notes that often she picks at her wounds and scratches them because they are itchy. She does note that she has been evaluated by dermatology in the past and was diagnosed with elephantiasis. The patient reports a moderate amount of clear drainage from her wounds. She does have lymphedema pumps at her assisted living facility but does not routinely utilize them. She has tolerated Unna boots well in the past. She denies any systemic signs of infection. Past medical, family, and social history reviewed and not pertinent to the current visit and all other systems reviewed and negative with exception of those listed above. [facility] Medical History (Updated 03/23/21 @ 17:25 by Saqib Thomas NP, [employer]) Diabetic ulcer of left foot Diabetic ulcer of right foot Venous stasis ulcer of right thigh with fat layer exposed Venous ulcer of left lower extremity with varicose veins Venous ulcer of right lower extremity with varicose veins Home Medications Morphine [Morphine Ir] 50 mg PO BREAKFAST 02/16/14 [History Last Taken Unknown] albuterol sulfate [Proair Hfa] 1 - 2 puff INHALATION Q4H PRN PRN 02/16/14 [History Last Taken Unknown] fluticasone propion-salmeterol [Advair 250/50 Mcg Diskus] 1 puff INHALATION BID 02/16/14 [History Last Taken Unknown] fluticasone propionate 2 spray NASAL DAILY 02/16/14 [History Last Taken Unknown] oxybutynin chloride 5 mg PO DAILY 02/16/14 [History Last Taken Unknown] oxycodone-acetaminophen 1 - 2 tab PO BID 02/16/14 [History Last Taken Unknown] potassium chloride 10 meq PO BID 02/16/14 [History Last Taken Unknown] pregabalin [Lyrica] 100 mg PO TID 02/16/14 [History Last Taken Unknown] ropinirole [Requip] 0.25 mg PO QHS 02/16/14 [History Last Taken Unknown] Basaglar Amandaikpen U-100 25 100ml EPIDURAL DAILY 05/07/19 [History Last Taken Unknown] furosemide 80 mg PO DAILY 05/07/19 [History Last Taken Unknown] morphine 60 mg PO DINNER 03/30/20 [History Last Taken Unknown] Allergy/AdvReac Type Severity Reaction Status Date / Time aspirin Allergy Hives Verified 05/07/19 14:26 latex Allergy Rash Verified 03/30/20 13:25 Penicillins Allergy Hives Verified 05/07/19 14:26 Sulfa (Sulfonamide Allergy Hives Verified 05/07/19 14:26 Antibiotics) Social History Smoking Status: Never smoker ROS ROS Narrative Negative x10 systems with exception of those listed above Constitutional Constitutional: Reports systems reviewed and no addt'l complaints, except as documented Eyes Eyes: Reports systems reviewed and no addt'l complaints, except as documented ENT HEENT: Reports systems reviewed and no addt'l complaints, except as documented Cardiovascular Cardiovascular: Reports systems reviewed and no addt'l complaints, except as documented Respiratory/Chest Respiratory/Chest: Reports systems reviewed and no addt'l complaints, except as documented Gastrointestinal Gastrointestinal: Reports systems reviewed and no addt'l complaints, except as documented Genitourinary Genitourinary: Reports systems reviewed and no addt'l complaints, except as documented Musculoskeletal Musculoskeletal: Reports systems reviewed and no addt'l complaints, except as documented Integumentary Integumentary: Reports systems reviewed and no addt'l complaints, except as documented Neurologic Neurologic: Reports systems reviewed and no addt'l complaints, except as documented Psychiatric Psychiatric: Reports systems reviewed and no addt'l complaints, except as documented Endocrine Endocrinology: Reports systems reviewed and no addt'l complaints, except as documented Hematologic/Lymphatic Hematologic/Lymphatic: Reports systems reviewed and no addt'l complaints, except as documented Allergic/Immunologic Allergic/Immunologic: Reports systems reviewed and no addt'l complaints, except as documented Vital Signs Vital Signs Vital Signs: 03/23/21 13:38 Temperature 98.9 F Temperature Source Temporal Pulse Rate 84 Respiratory Rate 16 Blood Pressure 115/65 Blood Pressure Mean 81 Blood Pressure Source Monitor Blood Pressure Position Sitting Blood Pressure Location Left Arm Physical Exam Const alert, oriented x3, no apparent distress, healthy appearing and well nourished General Appearance: cooperative Exam Limitations: no limitations HEENT normocephalic Head and Scalp: normal to inspection Mouth: oral and palatal mucosa normal Eyes General Eye: normal appearance of both eyes Lymph Lymphatic: lymphedema moderate and elephantiasis Resp normal respiratory effort, normal air movement and no use of accessory muscles Effort and Inspection: able to speak in complete sentences Auscultation: clear to auscultation bilaterally Cardio regular rate, regular rhythm, S1 normal heart sound, S2 normal heart sound, no murmurs and peripheral pulses 2+ throughout Palpation: normal PMI Rate: regular rate Heart Sounds: S1 normal and S2 normal GI normal to inspection, nondistended, normoactive bowel sounds, soft to palpation, non-tender and non-distended Palpation: soft Extremity normal to inspection and full ROM General Extremity: normal exam except as noted Skin Skin Narrative: Multiple ulcerations present to bilateral lower extremities with large amount of slough, diabetic foot ulcer present to left great toe, diabetic foot ulcer also present to right great toe, second toe, and third toe. Ulcerations with visible scratch whitfield also present to right upper thigh, chronic venous changes present to bilateral lower extremities, dorsal pedis pulses 2+, small amount warmth and erythema present to right lower extremity but no obvious signs of cellulitis at this time, diabetic foot ulcers are Stephens grade 2 Neuro oriented x3 and moves all extremities Sensorium / Orientation: awake, alert, oriented to person, oriented to place and oriented to time Psych mental status grossly normal, thought process normal and denies hallucinations Appearance: grossly normal Attitude: calm Activity / Motor Behavior: appropriate eye contact Speech: normal speech Thought Process: normal thought process Thought Content: normal thought content Attention / Concentration: attention grossly intact Insight: insight good Judgement: judgement good Debridement Note Debridement Note Post-Debridement Measurements and Additional Note: Post-Debridement Measurements/Treatment - Nurse 1 - General Ulcer Assessment Start: 03/23/21 13:38 Freq: Status: Active Protocol: CHIRAG.LOWEXT Activity Type Activity Date Activity User E-Sign Co-Sign Detail Recorded Client Recorded Date Recorded By Document 03/23/21 13:38 ML [id number] 03/23/21 13:53 ML 03/23/21 13:38 - Today's Visit Information Type of service Initial Visit Arrival Mode Ambulatory, Wheelchair Transfer Assistance None Patient Identification Verified (Name & Yes ) Patient Requires Transmission-Based No Precautions Safety Precautions NA Vital Signs Temperature (97.8 F-99.1 F) 98.9 F Temperature Source Temporal Pulse Rate (60-100) 84 Pulse Location Monitor Respiratory Rate (12-18) 16 Respiratory rate source Observation Blood Pressure (90/60-120/80) 115/65 Blood Pressure Mean 81 Source Monitor Position Sitting Blood Pressure Location Left Arm History Since Last Visit- (Skip if this is Patient's initial visit) Have you changed medications since your No last visit? Any new allergies or adverse reactions No Had a fall/change in ADL's that may No increase risk of falls Signs or symptoms of abuse and/or No neglect since last visit Have you been in the hospital since your No last visit? Has dressing in place as prescribed No Has compression in place as prescribed N/A Has offloadiing in place as prescribed N/A Experienced any changes in pain level or No management Left Footwear Regular Shoe Right Footwear Regular Shoe Pain Scale: 0-10 Numeric Is Patient Pain Free? Yes - Nurse 1 - General Ulcer Measurement Start: 03/23/21 13:38 Freq: Status: Active Protocol: Activity Type Activity Date Activity User E-Sign Co-Sign Detail Recorded Client Recorded Date Recorded By Document 03/23/21 13:38 ML [id number] 03/23/21 13:53 ML 03/23/21 13:38 Wound Center Nurse 1 #21right upper leg cluster -Current Size (cm) - Length 12 -Current Size (cm) - Width 22 -Current Size (cm) - Depth 0.1 -Total Square Cm 264 -Exudate Amt Medium -Exudate Type Serosanguineous -Wound Margin Distinct, Outline Attached -Granulation Amt Medium (34-66%) -Slough/Fibrin Yes -Necrosis Amt Medium (34-66%) -Necrotic Tissue Type Adherent Slough -Texture (Beatris-wound Skin Appearance) Assessed -Moisture (Beatris-wound Skin Appearance) Weeping -Color (Beatris-wound Skin Appearance) Assessed -Tenderness on Palpation (Beatris-wound No Skin Appearance) -Ulcer Cleansing Wound Cleanser -Foul Odor after Cleansing No -Anesthetic Used 4% Lidocaine Solution #20 left lower leg cluster -Current Size (cm) - Length 12.5 -Current Size (cm) - Width 16.5 -Current Size (cm) - Depth 0.1 -Total Square Cm 206.25 -Exudate Amt Medium -Exudate Type Serosanguineous -Wound Margin Distinct, Outline Attached -Granulation Amt Medium (34-66%) -Slough/Fibrin Yes -Necrosis Amt Medium (34-66%) -Necrotic Tissue Type Adherent Slough -Texture (Beatris-wound Skin Appearance) Assessed -Moisture (Beatris-wound Skin Appearance) Weeping -Color (Beatris-wound Skin Appearance) Assessed -Tenderness on Palpation (Beatris-wound No Skin Appearance) -Ulcer Cleansing Wound Cleanser -Foul Odor after Cleansing No -Anesthetic Used 4% Lidocaine Solution #19 right lower leg cluster -Current Size (cm) - Length 11.5 -Current Size (cm) - Width 18 -Current Size (cm) - Depth 0.1 -Total Square Cm 207.0 -Exudate Amt Medium -Exudate Type Serosanguineous -Wound Margin Distinct, Outline Attached -Granulation Amt Medium (34-66%) -Necrosis Amt Medium (34-66%) -Necrotic Tissue Type Adherent Slough -Texture (Beatris-wound Skin Appearance) Not Assessed -Moisture (Beatris-wound Skin Appearance) Weeping -Color (Beatris-wound Skin Appearance) Not Assessed -Tenderness on Palpation (Beatris-wound No Skin Appearance) -Ulcer Cleansing Wound Cleanser -Foul Odor after Cleansing No -Anesthetic Used 4% Lidocaine Solution #18 left ankle -Current Size (cm) - Length 1.2 -Current Size (cm) - Width 2 -Current Size (cm) - Depth 0.2 -Total Square Cm 2.4 -Exudate Amt Medium -Exudate Type Serosanguineous -Wound Margin Distinct, Outline Attached -Granulation Amt Medium (34-66%) -Slough/Fibrin Yes -Necrosis Amt Medium (34-66%) -Necrotic Tissue Type Adherent Slough -Texture (Beatris-wound Skin Appearance) Assessed -Moisture (Beatris-wound Skin Appearance) Weeping -Color (Beatris-wound Skin Appearance) Assessed -Temperature (Beatris-wound Skin No Abnormality Appearance) (Pt Warm) -Tenderness on Palpation (Beatris-wound No Skin Appearance) -Ulcer Cleansing Wound Cleanser -Foul Odor after Cleansing No -Anesthetic Used 4% Lidocaine Solution #17 left great toe cluster -Current Size (cm) - Length 5.6 -Current Size (cm) - Width 1.5 -Current Size (cm) - Depth 0.2 -Total Square Cm 8.40 -Exudate Amt Medium -Exudate Type Serosanguineous -Wound Margin Distinct, Outline Attached -Granulation Amt Medium (34-66%) -Slough/Fibrin Yes -Necrosis Amt Medium (34-66%) -Necrotic Tissue Type Adherent Slough -Texture (Beatris-wound Skin Appearance) Assessed -Moisture (Beatris-wound Skin Appearance) Assessed, Weeping -Color (Beatris-wound Skin Appearance) Assessed -Tenderness on Palpation (Beatris-wound No Skin Appearance) -Ulcer Cleansing Wound Cleanser -Foul Odor after Cleansing No -Anesthetic Used 4% Lidocaine Solution #16 right third toe -Current Size (cm) - Length 0.4 -Current Size (cm) - Width 0.3 -Current Size (cm) - Depth 0.2 -Total Square Cm 0.12 -Exudate Amt Medium -Exudate Type Serosanguineous -Wound Margin Distinct, Outline Attached -Granulation Amt Medium (34-66%) -Necrosis Amt Medium (34-66%) -Necrotic Tissue Type Adherent Slough -Texture (Beatris-wound Skin Appearance) Assessed -Moisture (Beatris-wound Skin Appearance) Weeping -Color (Beatris-wound Skin Appearance) Not Assessed -Ulcer Cleansing Wound Cleanser -Foul Odor after Cleansing No -Anesthetic Used 4% Lidocaine Solution #15 right second toe -Current Size (cm) - Length 1.4 -Current Size (cm) - Width 0.6 -Current Size (cm) - Depth 0.2 -Total Square Cm 0.84 -Exudate Amt Medium -Exudate Type Serosanguineous -Wound Margin Distinct, Outline Attached -Granulation Amt Medium (34-66%) -Necrosis Amt Medium (34-66%) -Necrotic Tissue Type Adherent Slough -Texture (Beatris-wound Skin Appearance) Assessed -Moisture (Beatris-wound Skin Appearance) Weeping -Color (Beatris-wound Skin Appearance) Assessed -Temperature (Beatris-wound Skin No Abnormality Appearance) (Pt Warm) -Tenderness on Palpation (Beatris-wound No Skin Appearance) -Ulcer Cleansing Wound Cleanser -Anesthetic Used 4% Lidocaine Solution #14right great toe -Current Size (cm) - Length 2.2 -Current Size (cm) - Width 1.8 -Current Size (cm) - Depth 0.2 -Total Square Cm 3.96 -Exudate Amt Medium -Exudate Type Serosanguineous -Wound Margin Distinct, Outline Attached -Granulation Amt Medium (34-66%) -Slough/Fibrin Yes -Necrosis Amt Medium (34-66%) -Necrotic Tissue Type Adherent Slough -Texture (Beatris-wound Skin Appearance) Assessed -Moisture (Beatris-wound Skin Appearance) Assessed, Weeping -Color (Beatris-wound Skin Appearance) Assessed -Ulcer Cleansing Wound Cleanser -Anesthetic Used 4% Lidocaine Solution Right Calf (cm) 45.5 Right Ankle (cm) 23.2 Left Calf (cm) 47 Left Ankle (cm) 24 WC - Nurse 2 - General Ulcer CM Notes Start: 03/23/21 13:38 Freq: Status: Active Protocol: Activity Type Activity Date Activity User E-Sign Co-Sign Detail Recorded Client Recorded Date Recorded By Document 03/23/21 14:11 MW [id number] 03/23/21 14:34 MW 03/23/21 14:11 Wound Center Nurse 2 #21right upper leg cluster -Time 14:12 -Correct Patient Yes -Correct Side, Site, Position Yes -Correct Procedure Yes -Procedure Performed Yes -Type of Procedure Debridement -Clinical Debridement Subcutaneous -Tissue Removed Subcutaneous -Post Debridement (cm) - Length 4.0 -Post Debridement (cm) - Width 10.0 -Post Debridement (cm) - Depth 0.1 -Total Square (Post) (cm) 40.00 -Area of Debridement (cm) - Length 4.0 -Area of Debridement (cm) - Width 10.0 -Total Square (Area) (cm) 40.00 -Tunneling No -Undermining/Tunneling No -Circular Undermining No -Wound/Ulcer Outcome Not Healed -Ulcer Cleansing Rinsed/ Irrigated with Saline -Foul Odor after Cleansing No -Bioengineered Tissue No -Bleeding Controlled with Pressure -Offloading No -Treatment Response Procedure Tolerated Well -Debridement - Subq, 1st 20sq cm Yes -Debridement, SubQ, ea addt'l 20sq cm 29 or part thereof #20 left lower leg cluster -Time 14:13 -Correct Patient Yes -Correct Side, Site, Position Yes -Correct Procedure Yes -Procedure Performed Yes -Type of Procedure Debridement -Clinical Debridement Subcutaneous -Tissue Removed Subcutaneous -Post Debridement (cm) - Length 15.0 -Post Debridement (cm) - Width 17.0 -Post Debridement (cm) - Depth 0.2 -Total Square (Post) (cm) 255.00 -Area of Debridement (cm) - Length 15.0 -Area of Debridement (cm) - Width 17.0 -Total Square (Area) (cm) 255.00 -Tunneling No -Undermining/Tunneling No -Circular Undermining No -Wound/Ulcer Outcome Not Healed -Ulcer Cleansing Rinsed/ Irrigated with Saline -Foul Odor after Cleansing No -Bioengineered Tissue No -Bleeding Controlled with Pressure -Offloading No -Treatment Response Procedure Tolerated Well -Debridement - Subq, 1st 20sq cm No #19 right lower leg cluster -Time 14:13 -Correct Patient Yes -Correct Side, Site, Position Yes -Procedure Performed Yes -Type of Procedure Debridement -Clinical Debridement Subcutaneous -Tissue Removed Subcutaneous -Post Debridement (cm) - Length 13.0 -Post Debridement (cm) - Width 21.0 -Post Debridement (cm) - Depth 0.3 -Total Square (Post) (cm) 273.00 -Area of Debridement (cm) - Length 13.0 -Area of Debridement (cm) - Width 21.0 -Total Square (Area) (cm) 273.00 -Tunneling No -Undermining/Tunneling No -Circular Undermining No -Wound/Ulcer Outcome Not Healed -Ulcer Cleansing Rinsed/ Irrigated with Saline -Foul Odor after Cleansing No -Bioengineered Tissue No -Bleeding Controlled with Pressure -Offloading No -Treatment Response Procedure Tolerated Well -Debridement - Subq, 1st 20sq cm No #18 left ankle -Time 14:14 -Correct Patient Yes -Correct Side, Site, Position Yes -Correct Procedure Yes -Procedure Performed Yes -Type of Procedure Debridement -Clinical Debridement Subcutaneous -Tissue Removed Subcutaneous -Post Debridement (cm) - Length 1.5 -Post Debridement (cm) - Width 2.5 -Post Debridement (cm) - Depth 0.2 -Total Square (Post) (cm) 3.75 -Area of Debridement (cm) - Length 0.5 -Area of Debridement (cm) - Width 2.5 -Total Square (Area) (cm) 1.25 -Tunneling No -Undermining/Tunneling No -Circular Undermining No -Wound/Ulcer Outcome Not Healed -Ulcer Cleansing Rinsed/ Irrigated with Saline -Foul Odor after Cleansing No -Bioengineered Tissue No -Bleeding Controlled with Pressure -Offloading No -Treatment Response Procedure Tolerated Well -Debridement - Subq, 1st 20sq cm No #17 left great toe cluster -Time 14:14 -Correct Patient Yes -Correct Side, Site, Position Yes -Correct Procedure Yes -Procedure Performed Yes -Type of Procedure Debridement -Clinical Debridement Subcutaneous -Tissue Removed Subcutaneous -Post Debridement (cm) - Length 7.0 -Post Debridement (cm) - Width 2.0 -Post Debridement (cm) - Depth 0.2 -Total Square (Post) (cm) 14.00 -Area of Debridement (cm) - Length 7.0 -Area of Debridement (cm) - Width 2.0 -Total Square (Area) (cm) 14.00 -Tunneling No -Undermining/Tunneling No -Circular Undermining No -Wound/Ulcer Outcome Not Healed -Ulcer Cleansing Rinsed/ Irrigated with Saline -Foul Odor after Cleansing No -Bioengineered Tissue No -Bleeding Controlled with Pressure -Offloading No -Treatment Response Procedure Tolerated Well -Debridement - Subq, 1st 20sq cm No #16 right third toe -Time 14:16 -Correct Patient Yes -Correct Side, Site, Position Yes -Correct Procedure Yes -Procedure Performed Yes -Type of Procedure Debridement -Clinical Debridement Subcutaneous -Tissue Removed Subcutaneous -Post Debridement (cm) - Length 0.5 -Post Debridement (cm) - Width 0.5 -Post Debridement (cm) - Depth 0.1 -Total Square (Post) (cm) 0.25 -Area of Debridement (cm) - Length 0.5 -Area of Debridement (cm) - Width 0.5 -Total Square (Area) (cm) 0.25 -Tunneling No -Undermining/Tunneling No -Circular Undermining No -Wound/Ulcer Outcome Not Healed -Ulcer Cleansing Rinsed/ Irrigated with Saline -Foul Odor after Cleansing No -Bioengineered Tissue No -Bleeding Controlled with Pressure -Offloading No -Treatment Response Procedure Tolerated Well -Debridement - Subq, 1st 20sq cm No #15 right second toe -Time 14:16 -Correct Patient Yes -Correct Side, Site, Position Yes -Correct Procedure Yes -Procedure Performed Yes -Type of Procedure Debridement -Clinical Debridement Subcutaneous -Tissue Removed Subcutaneous -Post Debridement (cm) - Length 1.5 -Post Debridement (cm) - Width 0.5 -Post Debridement (cm) - Depth 0.2 -Total Square (Post) (cm) 0.75 -Area of Debridement (cm) - Length 1.5 -Area of Debridement (cm) - Width 0.5 -Total Square (Area) (cm) 0.75 -Tunneling No -Undermining/Tunneling No -Circular Undermining No -Wound/Ulcer Outcome Not Healed -Ulcer Cleansing Rinsed/ Irrigated with Saline -Foul Odor after Cleansing No -Bioengineered Tissue No -Bleeding Controlled with Pressure -Offloading No -Treatment Response Procedure Tolerated Well -Debridement - Subq, 1st 20sq cm No #14right great toe -Time 14:17 -Correct Patient Yes -Correct Side, Site, Position Yes -Correct Procedure Yes -Procedure Performed Yes -Type of Procedure Debridement -Clinical Debridement Subcutaneous -Tissue Removed Subcutaneous -Post Debridement (cm) - Length 3.0 -Post Debridement (cm) - Width 2.0 -Post Debridement (cm) - Depth 0.2 -Total Square (Post) (cm) 6.00 -Area of Debridement (cm) - Length 3.0 -Area of Debridement (cm) - Width 2.0 -Total Square (Area) (cm) 6.00 -Tunneling No -Undermining/Tunneling No -Circular Undermining No -Wound/Ulcer Outcome Not Healed -Ulcer Cleansing Rinsed/ Irrigated with Saline -Foul Odor after Cleansing No -Bioengineered Tissue No -Bleeding Controlled with Pressure -Offloading No -Treatment Response Procedure Tolerated Well -Debridement - Subq, 1st 20sq cm No Pain Scale: 0-10 Numeric Is Patient Pain Free? Yes WC - Nurse 3 - General Ulcer D/C NN Start: 03/23/21 13:38 Freq: Status: Active Protocol: Activity Type Activity Date Activity User E-Sign Co-Sign Detail Recorded Client Recorded Date Recorded By Document 03/23/21 14:40 DL [id number] 03/23/21 14:53 DL 03/23/21 14:40 Wound Care Nurse 3 #21right upper leg cluster -Ulcer Cleansing Wound Cleanser -Foul Odor after Cleansing No -Primary Dressing Applied Mepilex Border, NonAdherent Contact Layer -Mepilex Border 1 #20 left lower leg cluster -Ulcer Cleansing Wound Cleanser -Foul Odor after Cleansing No -Primary Dressing Applied Silvercel -Other Covering unna -Silvercel 2 #19 right lower leg cluster -Ulcer Cleansing Wound Cleanser -Foul Odor after Cleansing No -Primary Dressing Applied Silvercel -Other Covering unna -Silvercel 1 #18 left ankle -Ulcer Cleansing Wound Cleanser -Foul Odor after Cleansing No -Other Dressing silvercell -Other Covering unna #17 left great toe cluster -Ulcer Cleansing Wound Cleanser -Foul Odor after Cleansing No -Other Dressing silvercell -Primary Dressing Covered/Secured with Dry Gauze & Roll Gauze, Secured with Tape #16 right third toe -Ulcer Cleansing Wound Cleanser -Other Dressing silver cell -Primary Dressing Covered/Secured with Dry Gauze & Roll Gauze, Secured with Tape #15 right second toe -Ulcer Cleansing Wound Cleanser -Foul Odor after Cleansing No -Other Dressing silvercell -Other Covering unna #14right great toe -Ulcer Cleansing Wound Cleanser -Foul Odor after Cleansing No -Other Dressing silvercell Right -Multi-Layered Wrap Application Unna Boot - Bilateral ($) -Unna Boots (Bilat) ($) 2 Treatment Response Procedure Tolerated Well Pain Scale: 0-10 Numeric Is Patient Pain Free? Yes WC - Visit Discharge Discharge Condition Stable Ambulatory Status Wheelchair Transportation Private [facility] Facility Type Nursing Home Care Facility Orders Sent Yes Additional Wound Wound debrided: Left great toe, right great toe second toe third toe DFU's Type of Debridement: Excisional debridement Anesthesia Used: 5% Lidocaine Gel Depth: Down to and including healthy tissue and in the subcutaneous layer Percentage of wound debrided: 100 Instrument Used: 5mm curette Tissue Removed: Slough and devitalized tissue Severity: Fat Layer Exposed Amount of bleeding with debridement: Mild Bleeding Controlled with: Pressure Patient tolerated procedure: Patient tolerated procedure well Additional Wound Wound debrided: Bilateral lower extremity VLUs, right thigh ulcer Type of Debridement: Excisional debridement Anesthesia Used: 5% Lidocaine Gel Depth: Down to and including healthy tissue and in the subcutaneous layer Percentage of wound debrided: 100 Instrument Used: 5mm curette Tissue Removed: Slough and devitalized tissue Severity: Fat Layer Exposed Amount of bleeding with debridement: Mild Bleeding Controlled with: Pressure Patient tolerated procedure: Patient tolerated procedure well Charges/Coding Visit Charges Office Visits / Consults: [id number] OV L5 Est Procedures Integumentary [id number]: [id number] Rachel subq tissue 20 sq cm/< Add On Codes: [id number] Rachel subq tissue add-on (x 29) Assessment/Plan Assessment/Plan (1) Venous ulcer of right lower extremity with varicose veins: CODE(S): I83.019 - Varicose veins of right lower extremity with ulcer of unspecified site; L97.919 - Non-pressure chronic ulcer of unspecified part of right lower leg with unspecified severity (2) Venous ulcer of left lower extremity with varicose veins: CODE(S): I83.029 - Varicose veins of left lower extremity with ulcer of unspecified site; L97.929 - Non-pressure chronic ulcer of unspecified part of left lower leg with unspecified severity (3) Diabetic ulcer of right foot: CODE(S): E11.621 - Type 2 diabetes mellitus with foot ulcer; L97.519 - Non-pressure chronic ulcer of other part of right foot with unspecified severity (4) Diabetic ulcer of left foot: CODE(S): E11.621 - Type 2 diabetes mellitus with foot ulcer; L97.529 - Non-pressure chronic ulcer of other part of left foot with unspecified severity (5) Venous stasis ulcer of right thigh with fat layer exposed: CODE(S): I83.011 - Varicose veins of right lower extremity with ulcer of thigh; L97.112 - Non-pressure chronic ulcer of right thigh with fat layer exposed (6) Bilateral lower extremity edema: CODE(S): R60.0 - Localized edema (7) Venous insufficiency: CODE(S): I87.2 - Venous insufficiency (chronic) (peripheral) (8) Chronic acquired lymphedema: CODE(S): I89.0 - Lymphedema, not elsewhere classified (9) Elephantiasis: CODE(S): I89.0 - Lymphedema, not elsewhere classified (10) Type 2 diabetes mellitus: CODE(S): E11.9 - Type 2 diabetes mellitus without complications (11) Chronic back pain: CODE(S): M54.9 - Dorsalgia, unspecified; G89.29 - Other chronic pain (12) Benign hypertension: CODE(S): I10 - Essential (primary) hypertension PLAN: Debridement performed today in clinic as annotated above. Silver cell and bilateral Unna boots applied. At home wound-care instructions: Silver cell and bilateral Unna boots applied today and to be changed twice a week, she will apply silver cell, Adaptic, and [place] SAP foam to the right thigh ulcer. Compression: Bilateral Unna boots with lymphedema pumps to be utilized Off-loading: The patient was instructed to avoid pressure and friction on the affected areas. Reposition every 2 hours at minimum. Avoid prolonged standing and/or dangling of legs. When seated, feet should be elevated at chest level. Frequent ambulation is encouraged. Diet: Patient encouraged to increase protein intake while taking caution to avoid high carbohydrate and/or sugar intake. Patient is a non-smoker Labs/cultures/imaging: Cultures ordered and collected today. Routine baseline lab work ordered. Vascular studies ordered. Given the patient's multiple dermatologic complaints, will refer her to dermatology. She is requesting to go to [facility]. Given the delayed wound healing and fact that patient has been under wound treatment plan since September 2020 at her assisted living facility and has failed standard wound care for greater than 4 weeks will apply for an advanced skin substitute. Follow-up: Return to clinic in 1 week for re-evaluation. Return sooner or report to the emergency room should symptoms worsen, or new symptoms arise. This note was generated with [employer] dictation software. It may contain incorrect words, spelling, and punctuation that were not noted in checking the note before signing. I have spent 65 minutes today reviewing labs, records, and history. Time includes coordinating care, interpretation of tests, and counseling the patient/family. This also includes time I spent with the patient for exam, treatment plan, and education as well as documenting clinical information in the electronic health record.
[2021-03-27 15:30] VITALS: BP 128/62; PULSE 86; TEMP 36.5
--- NOTE | 2021-03-28 12:02 | WC ---
Received a call from Saqib Thomas NP. Saqib reviewed wound culture results from last . Positive for infection. Doxycycline 100mg po twice daily for 10 days sent to [facility] pharmacy per Saqib. Patient notified.
== END 2021-03-28 23:59 | disposition home or self-care (01) ==
LOC: WC 14:40
PROVIDERS: PCP Family Medicine; Visit Provider Nurse Practitioner Family
DX: E11.621 Type 2 diabetes mellitus with foot ulcer (principal); L97.522 Non-pressure chronic ulcer of other part of left foot with fat layer exposed; L97.512 Non-pressure chronic ulcer of other part of right foot with fat layer exposed; I83.011 Varicose veins of right lower extremity with ulcer of thigh; L97.112 Non-pressure chronic ulcer of right thigh with fat layer exposed; I89.0 Lymphedema, not elsewhere classified; R60.0 Localized edema; I87.2 Venous insufficiency (chronic) (peripheral); I10 Essential (primary) hypertension; M54.9 Dorsalgia, unspecified; G89.29 Other chronic pain; E66.01 Morbid (severe) obesity due to excess calories; G47.33 Obstructive sleep apnea (adult) (pediatric); Z79.4 Long term (current) use of insulin; Z79.51 Long term (current) use of inhaled steroids; Z79.899 Other long term (current) drug therapy
CPT/HCPCS: 11042; 11045; 29580; 87070; 87075; 87077; 87186; 87205; 99213; G0463

== ENCOUNTER → 2021-04-05 09:52 | Outpatient (CLI) | payer MEDICARE, MEDICAID, SELFPAY ==
[2021-04-05 10:27] LABS: Erythrocyte Sedimentation Rate 64 mm/hr (0-30)
[2021-04-05 10:29] LABS: Absolute Lymphocyte Count 1.15 X10^3/uL (0.83-4.51); Absolute Neutrophil Count 7.6 X10^3/uL (2.0-7.7); Basophil# 0.03 X10^3/uL; Basophil% 0.3 % (0-1); Hematocrit 37.9 % (37-47); Hemoglobin 12.2 g/dL (12.0-15.0); Lymphocyte # 1.15 X10^3/ul (0.83-4.51); Mean Corp Hgb Conc 32.2 g/dL (32-36); Mean Corpuscular Hgb 27.7 pg (27.0-32.0); Mean Corpuscular Volume 85.9 fL (81-99); Mean Platelet Vol. 10.3 fl (6.2-12.0); Monocyte# 0.73 X10^3/uL; Monocyte% 7.6 % (0-10); NRBC Flagged by Analyzer 0 % (0-5); Neutrophil # 7.56 X10^3/uL (2.7-7.7); Neutrophil % 78.7 % (47-70); Platelet Count 193 K/mm3 (150-450); RBC Distribution Width CV 15.8 % (11.6-14.6); RBC Distribution Width SD 49.5 fl (35.1-43.9); Red Blood Count 4.41 M/mm3 (4.2-5.4); White Blood Count 9.6 K/mm3 (4.4-11.0)
[2021-04-05 10:52] LABS: Hemoglobin A1c 5.9 % (3.8-5.6)
[2021-04-05 10:57] LABS: ALB/GLOB Ratio 0.6 RATIO (0.9-2.4); AST(SGOT) 12 U/L (15-37); Alanine Aminotransfer ALT/SGPT 14 U/L (13-56); Alkaline Phosphatase 101 U/L (45-117); Anion Gap 6 (5-15); BUN 23 mg/dL (7-18); BUN/Creat Ratio 26.5 RATIO (10-20); Calcium,Total 8.9 mg/dL (8.5-10.1); Chloride 101 mmol/L (98-107); Creatinine, Serum 0.87 mg/dL (0.55-1.02); EST Glomerular Filtration Rate 68 mL/min (>60); Est Glom Filt Rate - Afr Amer 82 mL/min (>60); Globulin 4.7 g/dL (2.2-4.2); Glucose 133 mg/dL (74-106); Potassium 3.3 mmol/L (3.5-5.1); Prealbumin 19.3 mg/dL (20.0-40.0); Protein, Total 7.7 g/dL (6.4-8.2); Sodium Level 138 mmol/L (136-145)
== END ==
PROVIDERS: PCP Family Medicine; Visit Provider Nurse Practitioner Family
DX: E11.621 Type 2 diabetes mellitus with foot ulcer (principal); L97.519 Non-pressure chronic ulcer of other part of right foot with unspecified severity; L97.929 Non-pressure chronic ulcer of unspecified part of left lower leg with unspecified severity; E11.51 Type 2 diabetes mellitus with diabetic peripheral angiopathy without gangrene
CPT/HCPCS: 36415; 80053; 83036; 84134; 85025; 85652; 86140

== ENCOUNTER 2021-04-20 14:30 | Outpatient (RCR) | payer MEDICARE, MEDICAID, SELFPAY ==
[2021-03-29 00:44] VITALS: BP 128/62; PULSE 86; RESP 16; TEMP 36.5
[2021-03-30 16:15] VITALS: BP 116/60; PULSE 69; TEMP 36.1
--- NOTE | 2021-04-05 11:37 | PCM.WC.PN ---
History of Present Illness Date of Service: 03/30/21 Chief Complaint: Bilateral leg and bilateral foot ulcers History of Wound: This is a 71-year-old white female who presents to the wound healing center today with complaint of multiple wounds to her bilateral lower extremities. She has a past medical history as listed above significant for lymphedema, venous insufficiency, elephantiasis, type 2 diabetes mellitus, RILEY, hypertension, and morbid obesity. She reports that the majority of these wounds have been present since September 2020 and that she currently resides at [facility] and has had weekly wound visits from the wound nurse there. She has been utilizing compression and also utilizing antibiotic ointment covering with gauze. She notes that often she picks at her wounds and scratches them because they are itchy. She does note that she has been evaluated by dermatology in the past and was diagnosed with elephantiasis. The patient reports a moderate amount of clear drainage from her wounds. She does have lymphedema pumps at her assisted living facility but does not routinely utilize them. She has tolerated Unna boots well in the past. She denies any systemic signs of infection. Past medical, family, and social history reviewed and not pertinent to the current visit and all other systems reviewed and negative with exception of those listed above. Progress of Wound: Stable, no new concerns, patient did have cultures done which showed staph aureus and she was placed on doxycycline which she is tolerating well. Patient's wounds are improving in size Objective Data Objective Data Vital Signs: Vital Signs Temp Pulse Resp BP 96.9 F L 69 16 116/60 03/30/21 16:15 03/30/21 16:15 03/29/21 00:44 03/30/21 16:15 Charges/Coding Procedures Integumentary [id number]: [id number] Rachel subq tissue 20 sq cm/< Add On Codes: [id number] Rachel subq tissue add-on (x2) Physical Exam Const alert, oriented x3, no apparent distress, healthy appearing and well nourished General Appearance: cooperative Exam Limitations: no limitations HEENT normocephalic Head and Scalp: normal to inspection Mouth: oral and palatal mucosa normal Eyes General Eye: normal appearance of both eyes Lymph Lymphatic: lymphedema moderate and elephantiasis Resp normal respiratory effort, normal air movement and no use of accessory muscles Effort and Inspection: able to speak in complete sentences Auscultation: clear to auscultation bilaterally Cardio regular rate, regular rhythm, S1 normal heart sound, S2 normal heart sound, no murmurs and peripheral pulses 2+ throughout Palpation: normal PMI Rate: regular rate Heart Sounds: S1 normal and S2 normal GI normal to inspection, nondistended, normoactive bowel sounds, soft to palpation, non-tender and non-distended Palpation: soft Extremity normal to inspection and full ROM General Extremity: normal exam except as noted Skin Skin Narrative: Multiple ulcerations present to bilateral lower extremities with large amount of slough, diabetic foot ulcer present to left great toe, diabetic foot ulcer also present to right great toe, second toe, and third toe. Ulcerations with visible scratch whitfield also present to right upper thigh, chronic venous changes present to bilateral lower extremities, dorsal pedis pulses 2+, small amount warmth and erythema present to right lower extremity but no obvious signs of cellulitis at this time, diabetic foot ulcers are Stephens grade 2 Neuro oriented x3 and moves all extremities Sensorium / Orientation: awake, alert, oriented to person, oriented to place and oriented to time Psych mental status grossly normal, thought process normal and denies hallucinations Appearance: grossly normal Attitude: calm Activity / Motor Behavior: appropriate eye contact Speech: normal speech Thought Process: normal thought process Thought Content: normal thought content Attention / Concentration: attention grossly intact Insight: insight good Judgement: judgement good Debridement Note Debridement Note Post-Debridement Measurements and Additional Note: Post-Debridement Measurements/Treatment - Nurse 1 - General Ulcer Assessment Start: 03/30/21 15:36 Freq: Status: Active Protocol: CHIRAG.LOWRAMON Activity Type Activity Date Activity User E-Sign Co-Sign Detail Recorded Client Recorded Date Recorded By Document 03/30/21 16:15 OK [id number] 03/30/21 16:32 KYRA 03/30/21 16:15 - Today's Visit Information Type of service Follow-up Visit (Physician/[facility]ER NAPHTHALENE ) Arrival Mode Wheelchair Patient Identification Verified (Name & Yes ) Patient Requires Transmission-Based No Precautions Safety Precautions NA Vital Signs Temperature (97.8 F-99.1 F) 96.9 F L Temperature Source Temporal Pulse Rate (60-100) 69 Pulse Location Monitor Blood Pressure (90/60-120/80) 116/60 Blood Pressure Mean (mm Hg) 78 Source Monitor History Since Last Visit- (Skip if this is Patient's initial visit) Have you changed medications since your No last visit? Any new allergies or adverse reactions No Had a fall/change in ADL's that may No increase risk of falls Signs or symptoms of abuse and/or No neglect since last visit Have you been in the hospital since your No last visit? Has dressing in place as prescribed Yes Has compression in place as prescribed Yes Has offloadiing in place as prescribed N/A Experienced any changes in pain level or No management Left Footwear Slipper Right Footwear Slipper WC - Nurse 1 - General Ulcer Measurement Start: 03/30/21 15:36 Freq: Status: Active Protocol: Activity Type Activity Date Activity User E-Sign Co-Sign Detail Recorded Client Recorded Date Recorded By Document 03/30/21 16:15 KYRA [id number] 03/30/21 16:32 KYRA 03/30/21 16:15 Wound Center Nurse 1 #21right upper leg cluster -Current Size (cm) - Length 17 -Current Size (cm) - Width 21 -Current Size (cm) - Depth 0.1 -Total Square Cm 357 -Photo Taken No -Tunneling No -Undermining/Tunneling No -Circular Undermining No -Exudate Amt None Present -Wound Margin Distinct, Outline Attached -Granulation Quality N/A -Slough/Fibrin No -Necrosis Amt Medium (34-66%) -Necrotic Tissue Type Eschar -Structure Exposed N/A -Texture (Beatris-wound Skin Appearance) Assessed, Scarring -Moisture (Beatris-wound Skin Appearance) Assessed,Dry/ Scaly -Color (Beatris-wound Skin Appearance) No Abnormality, Assessed -Temperature (Beatris-wound Skin No Abnormality Appearance) (Pt Warm) -Tenderness on Palpation (Beatris-wound Yes Skin Appearance) -Ulcer Cleansing soap and water -Anesthetic Used 5% Lidocaine Gel #20 left lower leg cluster -Combined with other wound No -Current Size (cm) - Length 14 -Current Size (cm) - Width 14 -Current Size (cm) - Depth 0.1 -Total Square Cm 196 -Photo Taken No -Tunneling No -Undermining/Tunneling No -Circular Undermining No -Change in Wound Grade/Stage No -Exudate Amt None Present -Wound Margin Distinct, Outline Attached -Granulation Amt None Present (0 %) -Necrosis Amt Large (67-100%) -Necrotic Tissue Type Eschar -Structure Exposed N/A -Texture (Beatris-wound Skin Appearance) Assessed, Scarring -Moisture (Beatris-wound Skin Appearance) Assessed -Color (Beatris-wound Skin Appearance) Assessed -Temperature (Beatris-wound Skin No Abnormality Appearance) (Pt Warm) -Tenderness on Palpation (Beatris-wound No Skin Appearance) -Ulcer Cleansing soap and water -Anesthetic Used 5% Lidocaine Gel #19 right lower leg cluster -Current Size (cm) - Length 12 -Current Size (cm) - Width 16 -Current Size (cm) - Depth 0.1 -Total Square Cm 192 -Photo Taken No -Tunneling No -Undermining/Tunneling No -Circular Undermining No -Change in Wound Grade/Stage No -Exudate Type Serosanguineous -Wound Margin Distinct, Outline Attached -Slough/Fibrin Yes -Necrosis Amt Large (67-100%) -Necrotic Tissue Type Adherent Slough -Structure Exposed N/A -Texture (Beatris-wound Skin Appearance) No Abnormality, Assessed -Moisture (Beatris-wound Skin Appearance) No Abnormality, Assessed -Color (Beatris-wound Skin Appearance) No Abnormality, Assessed -Temperature (Beatris-wound Skin No Abnormality Appearance) (Pt Warm) -Tenderness on Palpation (Beatris-wound No Skin Appearance) -Ulcer Cleansing soap and water -Anesthetic Used 5% Lidocaine Gel #18 left ankle -Combined with other wound No -Current Size (cm) - Length 1.5 -Current Size (cm) - Width 1.5 -Current Size (cm) - Depth 0.1 -Total Square Cm 2.25 -Photo Taken No -Tunneling No -Undermining/Tunneling No -Circular Undermining No -Exudate Amt Large -Exudate Type Serosanguineous -Wound Margin Distinct, Outline Attached -Granulation Amt None Present (0 %) -Necrosis Amt Large (67-100%) -Necrotic Tissue Type Adherent Slough -Structure Exposed N/A -Texture (Beatris-wound Skin Appearance) Assessed, Scarring -Moisture (Beatris-wound Skin Appearance) Assessed, Weeping -Color (Beatris-wound Skin Appearance) No Abnormality, Assessed -Temperature (Beatris-wound Skin No Abnormality Appearance) (Pt Warm) -Tenderness on Palpation (Beatris-wound No Skin Appearance) -Ulcer Cleansing soap and water -Anesthetic Used 5% Lidocaine Gel #17 left great toe cluster -Current Size (cm) - Length 6 -Current Size (cm) - Width 5 -Current Size (cm) - Depth 0.1 -Total Square Cm 30 -Photo Taken No -Epithelialization None Present -Tunneling No -Undermining/Tunneling No -Circular Undermining No -Exudate Type Serosanguineous -Wound Margin Distinct, Outline Attached -Granulation Amt None Present (0 %) -Granulation Quality N/A -Slough/Fibrin Yes -Necrosis Amt Large (67-100%) -Necrotic Tissue Type Adherent Slough -Structure Exposed N/A -Texture (Beatris-wound Skin Appearance) No Abnormality, Assessed -Moisture (Beatris-wound Skin Appearance) Assessed, Maceration, Weeping -Color (Beatris-wound Skin Appearance) No Abnormality, Assessed -Temperature (Beatris-wound Skin No Abnormality Appearance) (Pt Warm) -Tenderness on Palpation (Beatris-wound No Skin Appearance) -Ulcer Cleansing soap and water -Anesthetic Used 5% Lidocaine Gel #16 right third toe -Current Size (cm) - Length 0.1 -Current Size (cm) - Width 0.1 -Current Size (cm) - Depth 0.1 -Total Square Cm 0.01 -Photo Taken No -Tunneling No -Undermining/Tunneling No -Circular Undermining No -Change in Wound Grade/Stage No -Exudate Amt None Present -Wound Margin Distinct, Outline Attached -Granulation Amt None Present (0 %) -Necrosis Amt Small (1-33%) -Necrotic Tissue Type Eschar -Texture (Beatris-wound Skin Appearance) No Abnormality, Assessed -Moisture (Beatris-wound Skin Appearance) No Abnormality, Assessed -Color (Beatris-wound Skin Appearance) No Abnormality, Assessed -Temperature (Beatris-wound Skin No Abnormality Appearance) (Pt Warm) -Tenderness on Palpation (Beatris-wound No Skin Appearance) -Ulcer Cleansing soap and water -Anesthetic Used 5% Lidocaine Gel #15 right second toe -Combined with other wound No -Current Size (cm) - Length 0.1 -Current Size (cm) - Width 0.1 -Current Size (cm) - Depth 0.1 -Total Square Cm 0.01 -Photo Taken No -Epithelialization None Present -Tunneling No -Undermining/Tunneling No -Circular Undermining No -Change in Wound Grade/Stage No -Exudate Amt None Present -Wound Margin Distinct, Outline Attached -Granulation Amt None Present (0 %) -Granulation Quality N/A -Slough/Fibrin No -Necrosis Amt Small (1-33%) -Necrotic Tissue Type Eschar -Structure Exposed N/A -Texture (Beatris-wound Skin Appearance) No Abnormality, Assessed -Moisture (Beatris-wound Skin Appearance) No Abnormality, Assessed -Color (Beatris-wound Skin Appearance) No Abnormality, Assessed -Temperature (Beatris-wound Skin No Abnormality Appearance) (Pt Warm) -Tenderness on Palpation (Beatris-wound No Skin Appearance) -Ulcer Cleansing soap and water -Anesthetic Used 5% Lidocaine Gel #14right great toe -Current Size (cm) - Length 1.1 -Current Size (cm) - Width 1 -Current Size (cm) - Depth 0.1 -Total Square Cm 1.1 -Photo Taken No -Tunneling No -Undermining/Tunneling No -Circular Undermining No -Exudate Amt Medium -Exudate Type Serosanguineous -Wound Margin Distinct, Outline Attached -Granulation Amt None Present (0 %) -Granulation Quality N/A -Slough/Fibrin Yes -Necrosis Amt Medium (34-66%) -Necrotic Tissue Type Adherent Slough -Structure Exposed N/A -Texture (Beatris-wound Skin Appearance) No Abnormality, Assessed -Moisture (Beatris-wound Skin Appearance) No Abnormality, Assessed -Color (Beatris-wound Skin Appearance) No Abnormality, Assessed -Temperature (Beatris-wound Skin No Abnormality Appearance) (Pt Warm) -Tenderness on Palpation (Beatris-wound No Skin Appearance) -Ulcer Cleansing soap and water -Anesthetic Used 5% Lidocaine Gel Right Calf (cm) 41 Right Ankle (cm) 23 Left Calf (cm) 44 Left Foot (cm) 24 WC - Nurse 2 - General Ulcer CM Notes Start: 03/30/21 15:36 Freq: Status: Active Protocol: Activity Type Activity Date Activity User E-Sign Co-Sign Detail Recorded Client Recorded Date Recorded By Document 03/30/21 15:30 MW [id number] 03/30/21 17:18 MW 03/30/21 15:30 Wound Center Nurse 2 #21right upper leg cluster -Time 15:30 -Correct Patient Yes -Correct Side, Site, Position Yes -Correct Procedure Yes -Procedure Performed No -Tunneling No -Undermining/Tunneling No -Circular Undermining No -Wound/Ulcer Outcome Not Healed -Ulcer Cleansing Not Cleansed -Foul Odor after Cleansing No -Bioengineered Tissue No -Bleeding Controlled with NA #20 left lower leg cluster -Time 15:30 -Correct Patient Yes -Correct Side, Site, Position Yes -Correct Procedure Yes -Procedure Performed Yes -Type of Procedure Debridement -Clinical Debridement Subcutaneous -Tissue Removed Subcutaneous -Post Debridement (cm) - Length 5.0 -Post Debridement (cm) - Width 2.5 -Post Debridement (cm) - Depth 0.1 -Total Square (Post) (cm) 12.50 -Area of Debridement (cm) - Length 5.0 -Area of Debridement (cm) - Width 2.5 -Total Square (Area) (cm) 12.50 -Tunneling No -Undermining/Tunneling No -Circular Undermining No -Wound/Ulcer Outcome Not Healed -Ulcer Cleansing Rinsed/ Irrigated with Saline -Foul Odor after Cleansing No -Bioengineered Tissue No -Bleeding Controlled with Pressure -Offloading No -Treatment Response Procedure Tolerated Well -Debridement - Subq, 1st 20sq cm Yes -Debridement, SubQ, ea addt'l 20sq cm 2 or part thereof #19 right lower leg cluster -Time 15:30 -Correct Patient Yes -Correct Side, Site, Position Yes -Correct Procedure Yes -Procedure Performed Yes -Type of Procedure Debridement -Clinical Debridement Subcutaneous -Tissue Removed Subcutaneous -Post Debridement (cm) - Length 5.0 -Post Debridement (cm) - Width 3.0 -Post Debridement (cm) - Depth 0.1 -Total Square (Post) (cm) 15.00 -Area of Debridement (cm) - Length 5.0 -Area of Debridement (cm) - Width 3.0 -Total Square (Area) (cm) 15.00 -Tunneling No -Undermining/Tunneling No -Circular Undermining No -Wound/Ulcer Outcome Not Healed -Ulcer Cleansing Rinsed/ Irrigated with Saline -Foul Odor after Cleansing No -Bioengineered Tissue No -Bleeding Controlled with Pressure -Offloading No -Treatment Response Procedure Tolerated Well -Debridement - Subq, 1st 20sq cm No #18 left ankle -Time 15:30 -Correct Patient Yes -Correct Side, Site, Position Yes -Correct Procedure Yes -Procedure Performed Yes -Type of Procedure Debridement -Clinical Debridement Subcutaneous -Tissue Removed Subcutaneous -Post Debridement (cm) - Length 2.8 -Post Debridement (cm) - Width 3.0 -Post Debridement (cm) - Depth 0.1 -Total Square (Post) (cm) 8.40 -Area of Debridement (cm) - Length 2.8 -Area of Debridement (cm) - Width 3.0 -Total Square (Area) (cm) 8.40 -Tunneling No -Undermining/Tunneling No -Circular Undermining No -Wound/Ulcer Outcome Not Healed -Ulcer Cleansing Rinsed/ Irrigated with Saline -Foul Odor after Cleansing No -Bioengineered Tissue No -Bleeding Controlled with Pressure -Offloading No -Debridement - Subq, 1st 20sq cm No #17 left great toe cluster -Time 15:30 -Correct Patient Yes -Correct Side, Site, Position Yes -Correct Procedure Yes -Procedure Performed Yes -Type of Procedure Debridement -Clinical Debridement Subcutaneous -Tissue Removed Subcutaneous -Post Debridement (cm) - Length 6.0 -Post Debridement (cm) - Width 2.0 -Post Debridement (cm) - Depth 0.1 -Total Square (Post) (cm) 12.00 -Area of Debridement (cm) - Length 6.0 -Area of Debridement (cm) - Width 2.0 -Total Square (Area) (cm) 12.00 -Tunneling No -Undermining/Tunneling No -Circular Undermining No -Wound/Ulcer Outcome Not Healed -Ulcer Cleansing Rinsed/ Irrigated with Saline -Foul Odor after Cleansing No -Bioengineered Tissue No -Bleeding Controlled with Pressure -Offloading No -Treatment Response Procedure Tolerated Well -Debridement - Subq, 1st 20sq cm No #16 right third toe -Time 17:13 -Correct Patient Yes -Correct Side, Site, Position Yes -Correct Procedure Yes -Procedure Performed Yes -Type of Procedure Debridement -Clinical Debridement Subcutaneous -Tissue Removed Subcutaneous -Post Debridement (cm) - Length 0.1 -Post Debridement (cm) - Width 0.1 -Post Debridement (cm) - Depth 0.1 -Total Square (Post) (cm) 0.01 -Area of Debridement (cm) - Length 0.1 -Area of Debridement (cm) - Width 0.1 -Total Square (Area) (cm) 0.01 -Tunneling No -Undermining/Tunneling No -Circular Undermining No -Wound/Ulcer Outcome Not Healed -Ulcer Cleansing Rinsed/ Irrigated with Saline -Foul Odor after Cleansing No -Bioengineered Tissue No -Bleeding Controlled with Pressure -Offloading No -Treatment Response Procedure Tolerated Well -Debridement - Subq, 1st 20sq cm No #15 right second toe -Time 15:30 -Correct Patient Yes -Correct Side, Site, Position Yes -Correct Procedure Yes -Procedure Performed Yes -Type of Procedure Debridement -Clinical Debridement Subcutaneous -Tissue Removed Subcutaneous -Post Debridement (cm) - Length 1.0 -Post Debridement (cm) - Width 0.5 -Post Debridement (cm) - Depth 0.1 -Total Square (Post) (cm) 0.50 -Area of Debridement (cm) - Length 1.0 -Area of Debridement (cm) - Width 0.5 -Total Square (Area) (cm) 0.50 -Undermining/Tunneling No -Circular Undermining No -Wound/Ulcer Outcome Not Healed -Ulcer Cleansing Rinsed/ Irrigated with Saline -Foul Odor after Cleansing No -Bioengineered Tissue No -Bleeding Controlled with Pressure -Offloading No -Debridement - Subq, 1st 20sq cm No #14right great toe -Time 15:30 -Correct Patient Yes -Correct Side, Site, Position Yes -Correct Procedure Yes -Procedure Performed Yes -Type of Procedure Debridement -Clinical Debridement Subcutaneous -Tissue Removed Subcutaneous -Post Debridement (cm) - Length 2.5 -Post Debridement (cm) - Width 2.0 -Post Debridement (cm) - Depth 0.2 -Total Square (Post) (cm) 5.00 -Area of Debridement (cm) - Length 2.5 -Area of Debridement (cm) - Width 2.0 -Total Square (Area) (cm) 5.00 -Tunneling No -Undermining/Tunneling No -Circular Undermining No -Wound/Ulcer Outcome Not Healed -Ulcer Cleansing Rinsed/ Irrigated with Saline -Foul Odor after Cleansing No -Bioengineered Tissue No -Bleeding Controlled with Pressure -Offloading No -Treatment Response Procedure Tolerated Well -Debridement - Subq, 1st 20sq cm No Pain Scale: 0-10 Numeric Is Patient Pain Free? Yes WC - Nurse 3 - General Ulcer D/C NN Start: 03/30/21 15:36 Freq: Status: Active Protocol: Activity Type Activity Date Activity User E-Sign Co-Sign Detail Recorded Client Recorded Date Recorded By Document 03/30/21 16:15 AK [id number] 03/30/21 16:32 AK 03/30/21 16:15 Vital Signs Temperature (97.8 F-99.1 F) 96.9 F L Temperature Source Temporal Pulse Rate (60-100) 69 Pulse Location Monitor Blood Pressure (90/60-120/80) 116/60 Blood Pressure Mean (mm Hg) 78 Source Monitor Wound Care Nurse 3 #21right upper leg cluster -Ulcer Cleansing Rinsed/ Irrigated with Saline -Primary Dressing Applied Mepilex Border, NonAdherent Contact Layer -Mepilex Border 2 #20 left lower leg cluster -Ulcer Cleansing Rinsed/ Irrigated with Saline -Foul Odor after Cleansing No -Negative Pressure Wound Therapy N/A -Primary Dressing Applied Silvercel -Silvercel 1 #19 right lower leg cluster -Ulcer Cleansing Rinsed/ Irrigated with Saline -Primary Dressing Applied Silvercel -Silvercel 0 #18 left ankle -Ulcer Cleansing Rinsed/ Irrigated with Saline -Foul Odor after Cleansing No -Negative Pressure Wound Therapy N/A -Primary Dressing Applied Silvercel -Silvercel 0 #17 left great toe cluster -Ulcer Cleansing Rinsed/ Irrigated with Saline -Foul Odor after Cleansing No -Negative Pressure Wound Therapy N/A -Primary Dressing Applied Silvercel -Silvercel 0 #16 right third toe -Ulcer Cleansing Rinsed/ Irrigated with Saline -Foul Odor after Cleansing No -Negative Pressure Wound Therapy N/A -Primary Dressing Applied Silvercel -Silvercel 0 #15 right second toe -Ulcer Cleansing Rinsed/ Irrigated with Saline -Foul Odor after Cleansing No -Negative Pressure Wound Therapy N/A -Primary Dressing Applied Silvercel -Silvercel 0 #14right great toe -Ulcer Cleansing Rinsed/ Irrigated with Saline -Foul Odor after Cleansing No -Primary Dressing Applied Silvercel -Silvercel 0 Left -Multi-Layered Wrap Application Unna Boot - Bilateral ($) -Unna Boots (Bilat) ($) 2 Additional Wound Wound debrided: Left great toe, right great toe second toe third toe DFU's Wound Grade/Stage: Stephens 2 Type of Debridement: Excisional debridement Anesthesia Used: 5% Lidocaine Gel Depth: Down to and including healthy tissue and in the subcutaneous layer Percentage of wound debrided: 100 Instrument Used: 5mm curette Tissue Removed: Slough and devitalized tissue Severity: Fat Layer Exposed Amount of bleeding with debridement: Mild Bleeding Controlled with: Pressure Patient tolerated procedure: Patient tolerated procedure well Additional Wound Wound debrided: Venous leg ulcers bilateral lower extremities, left heel ulcer Laterality: Left Type of Debridement: Excisional debridement Anesthesia Used: 5% Lidocaine Gel Depth: in the subcutaneous layer Percentage of wound debrided: 100 Instrument Used: 5mm curette Tissue Removed: Slough and devitalized tissue Severity: Fat Layer Exposed Amount of bleeding with debridement: Mild Bleeding Controlled with: Pressure Assessment/Plan Assessment/Plan (1) Venous ulcer of right lower extremity with varicose veins: CODE(S): I83.019 - Varicose veins of right lower extremity with ulcer of unspecified site; L97.919 - Non-pressure chronic ulcer of unspecified part of right lower leg with unspecified severity (2) Venous ulcer of left lower extremity with varicose veins: CODE(S): I83.029 - Varicose veins of left lower extremity with ulcer of unspecified site; L97.929 - Non-pressure chronic ulcer of unspecified part of left lower leg with unspecified severity (3) Diabetic ulcer of right foot: CODE(S): E11.621 - Type 2 diabetes mellitus with foot ulcer; L97.519 - Non-pressure chronic ulcer of other part of right foot with unspecified severity (4) Diabetic ulcer of left foot: CODE(S): E11.621 - Type 2 diabetes mellitus with foot ulcer; L97.529 - Non-pressure chronic ulcer of other part of left foot with unspecified severity (5) Venous stasis ulcer of right thigh with fat layer exposed: CODE(S): I83.011 - Varicose veins of right lower extremity with ulcer of thigh; L97.112 - Non-pressure chronic ulcer of right thigh with fat layer exposed (6) Bilateral lower extremity edema: CODE(S): R60.0 - Localized edema (7) Venous insufficiency: CODE(S): I87.2 - Venous insufficiency (chronic) (peripheral) (8) Chronic acquired lymphedema: CODE(S): I89.0 - Lymphedema, not elsewhere classified (9) Elephantiasis: CODE(S): I89.0 - Lymphedema, not elsewhere classified (10) Type 2 diabetes mellitus: CODE(S): E11.9 - Type 2 diabetes mellitus without complications (11) Chronic back pain: CODE(S): M54.9 - Dorsalgia, unspecified; G89.29 - Other chronic pain (12) Benign hypertension: CODE(S): I10 - Essential (primary) hypertension PLAN: Debridement performed today in clinic as annotated above. Silver cell and bilateral Unna boots applied. At home wound-care instructions: Silver cell and bilateral Unna boots applied today and to be changed twice a week, she will apply silver cell, Adaptic, and [place] SAP foam to the right thigh ulcer. Compression: Bilateral Unna boots with lymphedema pumps to be utilized Off-loading: The patient was instructed to avoid pressure and friction on the affected areas. Reposition every 2 hours at minimum. Avoid prolonged standing and/or dangling of legs. When seated, feet should be elevated at chest level. Frequent ambulation is encouraged. Diet: Patient encouraged to increase protein intake while taking caution to avoid high carbohydrate and/or sugar intake. Patient is a non-smoker Labs/cultures/imaging: Cultures ordered and collected previously and showed staph aureus and patient was treated with doxycycline which she is tolerating well. Routine baseline lab work ordered and pending. Vascular studies ordered and pending. Given the patient's multiple dermatologic complaints, will refer her to dermatology. She is requesting to go to [facility]. Given the delayed wound healing and fact that patient has been under wound treatment plan since September 2020 at her assisted living facility and has failed standard wound care for greater than 4 weeks will apply for an advanced skin substitute. Follow-up: Return to clinic in 1 week for re-evaluation. Return sooner or report to the emergency room should symptoms worsen, or new symptoms arise. This note was generated with [employer] dictation software. It may contain incorrect words, spelling, and punctuation that were not noted in checking the note before signing. I have spent 65 minutes today reviewing labs, records, and history. Time includes coordinating care, interpretation of tests, and counseling the patient/family. This also includes time I spent with the patient for exam, treatment plan, and education as well as documenting clinical information in the electronic health record.
[2021-04-06 15:44] VITALS: BP 133/68; PULSE 71; TEMP 36.1
--- NOTE | 2021-04-06 17:03 | PN.PCM_ITS ---
History of Present Illness Date of Service: 04/06/21 Chief Complaint: Bilateral leg and bilateral foot ulcers History of Wound: This is a 71-year-old white female who presents to the wound healing center today with complaint of multiple wounds to her bilateral lower extremities. She has a past medical history as listed above significant for lymphedema, venous insufficiency, elephantiasis, type 2 diabetes mellitus, RILEY, hypertension, and morbid obesity. She reports that the majority of these wounds have been present since September 2020 and that she currently resides at [facility] and has had weekly wound visits from the wound nurse there. She has been utilizing compression and also utilizing antibiotic ointment covering with gauze. She notes that often she picks at her wounds and scratches them because they are itchy. She does note that she has been evaluated by dermatology in the past and was diagnosed with elephantiasis. The patient reports a moderate amount of clear drainage from her wounds. She does have lymphedema pumps at her assisted living facility but does not routinely utilize them. She has tolerated Unna boots well in the past. She denies any systemic signs of infection. Past medical, family, and social history reviewed and not pertinent to the current visit and all other systems reviewed and negative with exception of those listed above. Progress of Wound: Stable, no new concerns, patient did have cultures done which showed staph aureus and she was placed on doxycycline which she is tolerating well. Patient's wounds are improving in size. First application of purapply a.m. today Objective Data Objective Data Vital Signs: Vital Signs Temp Pulse Resp BP 97.0 F L 71 16 133/68 H 04/06/21 15:44 04/06/21 15:44 03/29/21 00:44 04/06/21 15:44 Charges/Coding Procedures Integumentary 111xxx-113xx: [id number] Rachel subq tissue 20 sq cm/< 150xxx-152xx: [id number] Skin sub graft face/nk/hf/g Physical Exam Const alert, oriented x3, no apparent distress, healthy appearing and well nourished General Appearance: cooperative Exam Limitations: no limitations HEENT normocephalic Head and Scalp: normal to inspection Mouth: oral and palatal mucosa normal Eyes General Eye: normal appearance of both eyes Lymph Lymphatic: lymphedema moderate and elephantiasis Resp normal respiratory effort, normal air movement and no use of accessory muscles Effort and Inspection: able to speak in complete sentences Auscultation: clear to auscultation bilaterally Cardio regular rate, regular rhythm, S1 normal heart sound, S2 normal heart sound, no murmurs and peripheral pulses 2+ throughout Palpation: normal PMI Rate: regular rate Heart Sounds: S1 normal and S2 normal GI normal to inspection, nondistended, normoactive bowel sounds, soft to palpation, non-tender and non-distended Palpation: soft Extremity normal to inspection and full ROM General Extremity: normal exam except as noted Skin Skin Narrative: Multiple ulcerations present to bilateral lower extremities with large amount of slough, diabetic foot ulcer present to left great toe, diabetic foot ulcer also present to right great toe, second toe, and third toe. Ulcerations with visible scratch whitfield also present to right upper thigh, chronic venous changes present to bilateral lower extremities, dorsal pedis pulses 2+, small amount warmth and erythema present to right lower extremity but no obvious signs of cellulitis at this time, diabetic foot ulcers are Stephens grade 2 Neuro oriented x3 and moves all extremities Sensorium / Orientation: awake, alert, oriented to person, oriented to place and oriented to time Psych mental status grossly normal, thought process normal and denies hallucinations Appearance: grossly normal Attitude: calm Activity / Motor Behavior: appropriate eye contact Speech: normal speech Thought Process: normal thought process Thought Content: normal thought content Attention / Concentration: attention grossly intact Insight: insight good Judgement: judgement good Debridement Note Debridement Note Post-Debridement Measurements and Additional Note: Post-Debridement Measurements/Treatment - Nurse 1 - General Ulcer Assessment Start: 03/30/21 15:36 Freq: Status: Active Protocol: BRISA Activity Type Activity Date Activity User E-Sign Co-Sign Detail Recorded Client Recorded Date Recorded By Document 03/30/21 16:15 AK [id number] 03/30/21 16:32 AK Document 04/06/21 15:44 LORAINE [id number] 04/06/21 15:49 LORAINE 03/30/21 04/06/21 16:15 15:44 - Today's Visit Information Type of service Follow-up Visit Initial Visit (Physician/CENTRAL OFFICE SUPERVISOR ) Arrival Mode Wheelchair Wheelchair Patient Identification Verified (Name & Yes Yes ) Patient Requires Transmission-Based No Precautions Safety Precautions NA Vital Signs Temperature (97.8 F-99.1 F) 96.9 F L 97.0 F L Temperature Source Temporal Oral Pulse Rate (60-100) 69 71 Pulse Location Monitor Monitor Blood Pressure (90/60-120/80) 116/60 133/68 H Blood Pressure Mean (mm Hg) 78 89 Source Monitor Monitor Position Semi-Fowlers Blood Pressure Location Right Arm History Since Last Visit- (Skip if this is Patient's initial visit) Have you changed medications since your No No last visit? Any new allergies or adverse reactions No No Had a fall/change in ADL's that may No No increase risk of falls Signs or symptoms of abuse and/or No No neglect since last visit Have you been in the hospital since your No No last visit? Has dressing in place as prescribed Yes Yes Has compression in place as prescribed Yes N/A Has offloadiing in place as prescribed N/A N/A Experienced any changes in pain level or No No management Left Footwear Slipper Regular Shoe Right Footwear Slipper Regular Shoe Pain Scale: 0-10 Numeric Is Patient Pain Free? Yes WC - Nurse 1 - General Ulcer Measurement Start: 03/30/21 15:36 Freq: Status: Active Protocol: Activity Type Activity Date Activity User E-Sign Co-Sign Detail Recorded Client Recorded Date Recorded By Document 03/30/21 16:15 AK [id number] 03/30/21 16:32 AK Document 04/06/21 15:44 KR [id number] 04/06/21 15:49 KR 03/30/21 04/06/21 16:15 15:44 Wound Center Nurse 1 #21right upper leg cluster -Current Size (cm) - Length 17 17 -Current Size (cm) - Width 21 24 -Current Size (cm) - Depth 0.1 1 -Total Square Cm 357 408 -Photo Taken No -Tunneling No -Undermining/Tunneling No -Circular Undermining No -Exudate Amt None Present None Present -Wound Margin Distinct, Distinct, Outline Outline Attached Attached -Granulation Amt None Present (0 %) -Granulation Quality N/A -Slough/Fibrin No -Necrosis Amt Medium (34-66%) None Present (0 %) -Necrotic Tissue Type Eschar -Structure Exposed N/A -Texture (Beatris-wound Skin Appearance) Assessed, No Abnormality, Scarring Scarring -Moisture (Beatris-wound Skin Appearance) Assessed,Dry/ No Abnormality, Scaly Assessed,Dry/ Scaly -Color (Beatris-wound Skin Appearance) No Abnormality, No Abnormality, Assessed Assessed -Temperature (Beatris-wound Skin No Abnormality No Abnormality Appearance) (Pt Warm) (Pt Warm) -Tenderness on Palpation (Beatris-wound Yes No Skin Appearance) -Ulcer Cleansing soap and water Rinsed/ Irrigated with Saline -Foul Odor after Cleansing No -Anesthetic Used 5% Lidocaine 4% Lidocaine Gel Solution #20 left lower leg cluster -Combined with other wound No -Current Size (cm) - Length 14 2 -Current Size (cm) - Width 14 19.5 -Current Size (cm) - Depth 0.1 1 -Total Square Cm 196 39.0 -Photo Taken No -Tunneling No -Undermining/Tunneling No -Circular Undermining No -Change in Wound Grade/Stage No -Exudate Amt None Present Small -Exudate Type Serosanguineous -Wound Margin Distinct, Distinct, Outline Outline Attached Attached -Granulation Amt None Present (0 None Present (0 %) %) -Necrosis Amt Large (67-100%) Large (67-100%) -Necrotic Tissue Type Eschar Adherent Slough -Structure Exposed N/A -Texture (Beatris-wound Skin Appearance) Assessed, Assessed, Scarring Scarring -Moisture (Beatris-wound Skin Appearance) Assessed No Abnormality, Assessed -Color (Beatris-wound Skin Appearance) Assessed No Abnormality, Assessed -Temperature (Beatris-wound Skin No Abnormality No Abnormality Appearance) (Pt Warm) (Pt Warm) -Tenderness on Palpation (Beatris-wound No No Skin Appearance) -Ulcer Cleansing soap and water Rinsed/ Irrigated with Saline -Foul Odor after Cleansing No -Anesthetic Used 5% Lidocaine 4% Lidocaine Gel Solution #19 right lower leg cluster -Current Size (cm) - Length 12 2 -Current Size (cm) - Width 16 19.5 -Current Size (cm) - Depth 0.1 0.1 -Total Square Cm 192 39.0 -Photo Taken No -Tunneling No -Undermining/Tunneling No -Circular Undermining No -Change in Wound Grade/Stage No -Exudate Type Serosanguineous -Wound Margin Distinct, Outline Attached -Granulation Amt None Present (0 %) -Slough/Fibrin Yes -Necrosis Amt Large (67-100%) Medium (34-66%) -Necrotic Tissue Type Adherent Slough Adherent Slough -Structure Exposed N/A -Texture (Beatris-wound Skin Appearance) No Abnormality, Assessed, Assessed Scarring -Moisture (Beatris-wound Skin Appearance) No Abnormality, No Abnormality, Assessed Assessed -Color (Beatris-wound Skin Appearance) No Abnormality, No Abnormality, Assessed Assessed -Temperature (Beatris-wound Skin No Abnormality No Abnormality Appearance) (Pt Warm) (Pt Warm) -Tenderness on Palpation (Beatris-wound No No Skin Appearance) -Ulcer Cleansing soap and water Rinsed/ Irrigated with Saline -Anesthetic Used 5% Lidocaine 4% Lidocaine Gel Solution #18 left ankle -Combined with other wound No -Current Size (cm) - Length 1.5 1.2 -Current Size (cm) - Width 1.5 1.4 -Current Size (cm) - Depth 0.1 0.1 -Total Square Cm 2.25 1.68 -Photo Taken No -Tunneling No -Undermining/Tunneling No -Circular Undermining No -Exudate Amt Large -Exudate Type Serosanguineous -Wound Margin Distinct, Distinct, Outline Outline Attached Attached -Granulation Amt None Present (0 Medium (34-66%) %) -Granulation Quality [place] -Necrosis Amt Large (67-100%) -Necrotic Tissue Type Adherent Slough -Structure Exposed N/A -Texture (Beatris-wound Skin Appearance) Assessed, Assessed, Scarring Scarring -Moisture (Beatris-wound Skin Appearance) Assessed, No Abnormality, Weeping Assessed -Color (Beatris-wound Skin Appearance) No Abnormality, No Abnormality, Assessed Assessed -Temperature (Beatris-wound Skin No Abnormality No Abnormality Appearance) (Pt Warm) (Pt Warm) -Tenderness on Palpation (Beatris-wound No No Skin Appearance) -Ulcer Cleansing soap and water Rinsed/ Irrigated with Saline -Foul Odor after Cleansing No -Anesthetic Used 5% Lidocaine 4% Lidocaine Gel Solution #17 left great toe cluster -Current Size (cm) - Length 6 0.5 -Current Size (cm) - Width 5 0.3 -Current Size (cm) - Depth 0.1 0.2 -Total Square Cm 30 0.15 -Photo Taken No -Epithelialization None Present -Tunneling No -Undermining/Tunneling No -Circular Undermining No -Exudate Amt Small -Exudate Type Serosanguineous Serosanguineous -Wound Margin Distinct, Distinct, Outline Outline Attached Attached -Granulation Amt None Present (0 %) -Granulation Quality N/A -Slough/Fibrin Yes -Necrosis Amt Large (67-100%) Small (1-33%) -Necrotic Tissue Type Adherent Slough Adherent Slough -Structure Exposed N/A -Texture (Beatris-wound Skin Appearance) No Abnormality, Assessed, Assessed Scarring -Moisture (Beatris-wound Skin Appearance) Assessed, No Abnormality, Maceration, Assessed Weeping -Color (Beatris-wound Skin Appearance) No Abnormality, No Abnormality, Assessed Assessed -Temperature (Beatris-wound Skin No Abnormality No Abnormality Appearance) (Pt Warm) (Pt Warm) -Tenderness on Palpation (Beatris-wound No No Skin Appearance) -Ulcer Cleansing soap and water Rinsed/ Irrigated with Saline -Foul Odor after Cleansing No -Anesthetic Used 5% Lidocaine 4% Lidocaine Gel Solution #16 right third toe -Current Size (cm) - Length 0.1 0.1 -Current Size (cm) - Width 0.1 0.1 -Current Size (cm) - Depth 0.1 0.1 -Total Square Cm 0.01 0.01 -Photo Taken No -Tunneling No -Undermining/Tunneling No -Circular Undermining No -Change in Wound Grade/Stage No -Exudate Amt None Present None Present -Wound Margin Distinct, Distinct, Outline Outline Attached Attached -Granulation Amt None Present (0 %) -Necrosis Amt Small (1-33%) None Present (0 %) -Necrotic Tissue Type Eschar -Texture (Beatris-wound Skin Appearance) No Abnormality, Assessed, Assessed Scarring -Moisture (Beatris-wound Skin Appearance) No Abnormality, No Abnormality, Assessed Assessed -Color (Ebatris-wound Skin Appearance) No Abnormality, No Abnormality, Assessed Assessed -Temperature (Beatris-wound Skin No Abnormality No Abnormality Appearance) (Pt Warm) (Pt Warm) -Tenderness on Palpation (Beatris-wound No No Skin Appearance) -Ulcer Cleansing soap and water Rinsed/ Irrigated with Saline -Foul Odor after Cleansing No -Anesthetic Used 5% Lidocaine 4% Lidocaine Gel Solution #15 right second toe -Combined with other wound No -Current Size (cm) - Length 0.1 0.1 -Current Size (cm) - Width 0.1 0.1 -Current Size (cm) - Depth 0.1 0.1 -Total Square Cm 0.01 0.01 -Photo Taken No -Epithelialization None Present -Tunneling No -Undermining/Tunneling No -Circular Undermining No -Change in Wound Grade/Stage No -Exudate Amt None Present None Present -Wound Margin Distinct, Distinct, Outline Outline Attached Attached -Granulation Amt None Present (0 None Present (0 %) %) -Granulation Quality N/A -Slough/Fibrin No -Necrosis Amt Small (1-33%) None Present (0 %) -Necrotic Tissue Type Eschar -Structure Exposed N/A -Texture (Beatris-wound Skin Appearance) No Abnormality, Assessed, Assessed Scarring -Moisture (Beatris-wound Skin Appearance) No Abnormality, No Abnormality, Assessed Assessed -Color (Beatris-wound Skin Appearance) No Abnormality, No Abnormality, Assessed Assessed -Temperature (Beatris-wound Skin No Abnormality No Abnormality Appearance) (Pt Warm) (Pt Warm) -Tenderness on Palpation (Beatris-wound No No Skin Appearance) -Ulcer Cleansing soap and water Rinsed/ Irrigated with Saline -Foul Odor after Cleansing No -Anesthetic Used 5% Lidocaine 4% Lidocaine Gel Solution #14right great toe -Current Size (cm) - Length 1.1 1 -Current Size (cm) - Width 1 0.6 -Current Size (cm) - Depth 0.1 0.1 -Total Square Cm 1.1 0.6 -Photo Taken No -Tunneling No -Undermining/Tunneling No -Circular Undermining No -Exudate Amt Medium Small -Exudate Type Serosanguineous Serosanguineous -Wound Margin Distinct, Distinct, Outline Outline Attached Attached -Granulation Amt None Present (0 %) -Granulation Quality N/A -Slough/Fibrin Yes -Necrosis Amt Medium (34-66%) Small (1-33%) -Necrotic Tissue Type Adherent Slough Adherent Slough -Structure Exposed N/A -Texture (Beatris-wound Skin Appearance) No Abnormality, Assessed, Assessed Scarring -Moisture (Beatris-wound Skin Appearance) No Abnormality, No Abnormality, Assessed Assessed -Color (Beatris-wound Skin Appearance) No Abnormality, No Abnormality, Assessed Assessed -Temperature (Beatris-wound Skin No Abnormality No Abnormality Appearance) (Pt Warm) (Pt Warm) -Tenderness on Palpation (Beatris-wound No No Skin Appearance) -Ulcer Cleansing soap and water Rinsed/ Irrigated with Saline -Foul Odor after Cleansing No -Anesthetic Used 5% Lidocaine 4% Lidocaine Gel Solution Right Calf (cm) 41 Right Ankle (cm) 23 Left Calf (cm) 44 Left Foot (cm) 24 WC - Nurse 2 - General Ulcer CM Notes Start: 03/30/21 15:36 Freq: Status: Active Protocol: Activity Type Activity Date Activity User E-Sign Co-Sign Detail Recorded Client Recorded Date Recorded By Document 03/30/21 15:30 MW [id number] 03/30/21 17:18 MW Document 04/06/21 15:50 MT [id number] 04/06/21 16:06 SC 03/30/21 04/06/21 15:30 15:50 Wound Center Nurse 2 #21right upper leg cluster -Time 15:30 15:52 -Correct Patient Yes Yes -Correct Side, Site, Position Yes Yes -Correct Procedure Yes Yes -Procedure Performed No Yes -Type of Procedure Debridement -Clinical Debridement Subcutaneous -Tissue Removed Subcutaneous -Post Debridement (cm) - Length 0.1 -Post Debridement (cm) - Width 0.1 -Post Debridement (cm) - Depth 0.1 -Total Square (Post) (cm) 0.01 -Area of Debridement (cm) - Length 0.1 -Area of Debridement (cm) - Width 0.1 -Total Square (Area) (cm) 0.01 -Tunneling No No -Undermining/Tunneling No No -Circular Undermining No No -Wound/Ulcer Outcome Not Healed Not Healed -Ulcer Cleansing Not Cleansed Rinsed/ Irrigated with Saline -Foul Odor after Cleansing No No -Bioengineered Tissue No No -Bleeding Controlled with NA Pressure -Offloading No -Treatment Response Procedure Tolerated Well -Debridement - Subq, 1st 20sq cm Yes #20 left lower leg cluster -Time 15:30 15:51 -Correct Patient Yes Yes -Correct Side, Site, Position Yes Yes -Correct Procedure Yes Yes -Procedure Performed Yes No -Type of Procedure Debridement -Clinical Debridement Subcutaneous -Tissue Removed Subcutaneous -Post Debridement (cm) - Length 5.0 0 -Post Debridement (cm) - Width 2.5 0 -Post Debridement (cm) - Depth 0.1 0 -Total Square (Post) (cm) 12.50 0 -Area of Debridement (cm) - Length 5.0 -Area of Debridement (cm) - Width 2.5 -Total Square (Area) (cm) 12.50 -Tunneling No -Undermining/Tunneling No -Circular Undermining No -Wound/Ulcer Outcome Not Healed Healed- Epithelialized -Ulcer Cleansing Rinsed/ Irrigated with Saline -Foul Odor after Cleansing No -Bioengineered Tissue No -Bleeding Controlled with Pressure -Offloading No -Treatment Response Procedure Tolerated Well -Debridement - Subq, 1st 20sq cm Yes -Debridement, SubQ, ea addt'l 20sq cm 2 or part thereof #19 right lower leg cluster -Time 15:30 15:53 -Correct Patient Yes Yes -Correct Side, Site, Position Yes Yes -Correct Procedure Yes Yes -Procedure Performed Yes Yes -Type of Procedure Debridement Debridement -Clinical Debridement Subcutaneous Subcutaneous -Tissue Removed Subcutaneous Subcutaneous -Post Debridement (cm) - Length 5.0 2.0 -Post Debridement (cm) - Width 3.0 1.0 -Post Debridement (cm) - Depth 0.1 0.1 -Total Square (Post) (cm) 15.00 2.00 -Area of Debridement (cm) - Length 5.0 2.0 -Area of Debridement (cm) - Width 3.0 1.0 -Total Square (Area) (cm) 15.00 2.00 -Tunneling No No -Undermining/Tunneling No No -Circular Undermining No No -Wound/Ulcer Outcome Not Healed Not Healed -Ulcer Cleansing Rinsed/ Rinsed/ Irrigated with Irrigated with Saline Saline -Foul Odor after Cleansing No No -Bioengineered Tissue No No -Bleeding Controlled with Pressure Pressure -Offloading No No -Treatment Response Procedure Procedure Tolerated Well Tolerated Well -Debridement - Subq, 1st 20sq cm No No #18 left ankle -Time 15:30 15:54 -Correct Patient Yes Yes -Correct Side, Site, Position Yes Yes -Correct Procedure Yes Yes -Procedure Performed Yes Yes -Type of Procedure Debridement Debridement -Clinical Debridement Subcutaneous Subcutaneous -Tissue Removed Subcutaneous Subcutaneous -Post Debridement (cm) - Length 2.8 1.0 -Post Debridement (cm) - Width 3.0 1.5 -Post Debridement (cm) - Depth 0.1 0.1 -Total Square (Post) (cm) 8.40 1.50 -Area of Debridement (cm) - Length 2.8 1.0 -Area of Debridement (cm) - Width 3.0 1.5 -Total Square (Area) (cm) 8.40 1.50 -Tunneling No No -Undermining/Tunneling No No -Circular Undermining No No -Wound/Ulcer Outcome Not Healed Not Healed -Ulcer Cleansing Rinsed/ Rinsed/ Irrigated with Irrigated with Saline Saline -Foul Odor after Cleansing No No -Bioengineered Tissue No No -Bleeding Controlled with Pressure Pressure -Offloading No No -Treatment Response Procedure Tolerated Well -Debridement - Subq, 1st 20sq cm No No #17 left great toe cluster -Time 15:30 15:54 -Correct Patient Yes Yes -Correct Side, Site, Position Yes Yes -Correct Procedure Yes Yes -Procedure Performed Yes Yes -Type of Procedure Debridement Debridement -Clinical Debridement Subcutaneous Subcutaneous -Tissue Removed Subcutaneous Subcutaneous -Post Debridement (cm) - Length 6.0 6.0 -Post Debridement (cm) - Width 2.0 1.5 -Post Debridement (cm) - Depth 0.1 0.2 -Total Square (Post) (cm) 12.00 9.00 -Area of Debridement (cm) - Length 6.0 6.0 -Area of Debridement (cm) - Width 2.0 1.5 -Total Square (Area) (cm) 12.00 9.00 -Tunneling No No -Undermining/Tunneling No No -Circular Undermining No No -Wound/Ulcer Outcome Not Healed Not Healed -Ulcer Cleansing Rinsed/ Rinsed/ Irrigated with Irrigated with Saline Saline -Foul Odor after Cleansing No No -Bioengineered Tissue No Yes -Type of Bioengineered Tissue PuraPly AM -Expiration Date 05/30/23 -Product Lot Number [id number] -Percent Used 100 -Lot number of Saline Used [id number] -Bleeding Controlled with Pressure Pressure -Offloading No No -Treatment Response Procedure Procedure Tolerated Well Tolerated Well -Debridement - Subq, 1st 20sq cm No No -Apply Skin Sub - 1st 25 sq cm - Feet 1 -PuraPly AM (per sq cm) 12 #16 right third toe -Time 17:13 15:55 -Correct Patient Yes Yes -Correct Side, Site, Position Yes Yes -Correct Procedure Yes Yes -Procedure Performed Yes No -Type of Procedure Debridement -Clinical Debridement Subcutaneous -Tissue Removed Subcutaneous -Post Debridement (cm) - Length 0.1 0 -Post Debridement (cm) - Width 0.1 0 -Post Debridement (cm) - Depth 0.1 0 -Total Square (Post) (cm) 0.01 0 -Area of Debridement (cm) - Length 0.1 -Area of Debridement (cm) - Width 0.1 -Total Square (Area) (cm) 0.01 -Tunneling No -Undermining/Tunneling No -Circular Undermining No -Wound/Ulcer Outcome Not Healed Healed- Epithelialized -Ulcer Cleansing Rinsed/ Irrigated with Saline -Foul Odor after Cleansing No -Bioengineered Tissue No -Bleeding Controlled with Pressure -Offloading No -Treatment Response Procedure Tolerated Well -Debridement - Subq, 1st 20sq cm No #15 right second toe -Time 15:30 16:03 -Correct Patient Yes Yes -Correct Side, Site, Position Yes Yes -Correct Procedure Yes Yes -Procedure Performed Yes Yes -Type of Procedure Debridement Debridement -Clinical Debridement Subcutaneous Subcutaneous -Tissue Removed Subcutaneous Subcutaneous -Post Debridement (cm) - Length 1.0 1 -Post Debridement (cm) - Width 0.5 0.5 -Post Debridement (cm) - Depth 0.1 0.2 -Total Square (Post) (cm) 0.50 0.5 -Area of Debridement (cm) - Length 1.0 1 -Area of Debridement (cm) - Width 0.5 0.5 -Total Square (Area) (cm) 0.50 0.5 -Tunneling No -Undermining/Tunneling No No -Circular Undermining No No -Wound/Ulcer Outcome Not Healed Not Healed -Ulcer Cleansing Rinsed/ Rinsed/ Irrigated with Irrigated with Saline Saline -Foul Odor after Cleansing No No -Bioengineered Tissue No No -Bleeding Controlled with Pressure Pressure -Offloading No No -Treatment Response Procedure Tolerated Well -Debridement - Subq, 1st 20sq cm No No #14right great toe -Time 15:30 16:05 -Correct Patient Yes Yes -Correct Side, Site, Position Yes Yes -Correct Procedure Yes Yes -Procedure Performed Yes Yes -Type of Procedure Debridement Debridement -Clinical Debridement Subcutaneous Subcutaneous -Tissue Removed Subcutaneous Subcutaneous -Post Debridement (cm) - Length 2.5 2.0 -Post Debridement (cm) - Width 2.0 1.5 -Post Debridement (cm) - Depth 0.2 0.2 -Total Square (Post) (cm) 5.00 3.00 -Area of Debridement (cm) - Length 2.5 2.0 -Area of Debridement (cm) - Width 2.0 1.5 -Total Square (Area) (cm) 5.00 3.00 -Tunneling No No -Undermining/Tunneling No No -Circular Undermining No No -Wound/Ulcer Outcome Not Healed Not Healed -Ulcer Cleansing Rinsed/ Rinsed/ Irrigated with Irrigated with Saline Saline -Foul Odor after Cleansing No No -Bioengineered Tissue No No -Bleeding Controlled with Pressure Pressure -Offloading No No -Treatment Response Procedure Procedure Tolerated Well Tolerated Well -Debridement - Subq, 1st 20sq cm No No Pain Scale: 0-10 Numeric Is Patient Pain Free? Yes Yes WC - Nurse 3 - General Ulcer D/C NN Start: 03/30/21 15:36 Freq: Status: Active Protocol: Activity Type Activity Date Activity User E-Sign Co-Sign Detail Recorded Client Recorded Date Recorded By Document 03/30/21 16:15 AK [id number] 03/30/21 16:32 AK Document 04/07/21 07:27 PL [id number] 04/07/21 07:28 PL 03/30/21 04/07/21 16:15 07:27 Vital Signs Temperature (97.8 F-99.1 F) 96.9 F L Temperature Source Temporal Pulse Rate (60-100) 69 Pulse Location Monitor Blood Pressure (90/60-120/80) 116/60 Blood Pressure Mean (mm Hg) 78 Source Monitor Wound Care Nurse 3 #21right upper leg cluster -Ulcer Cleansing Rinsed/ Irrigated with Saline -Primary Dressing Applied Mepilex Border, NonAdherent Contact Layer -Mepilex Border 2 #20 left lower leg cluster -Ulcer Cleansing Rinsed/ Irrigated with Saline -Foul Odor after Cleansing No -Negative Pressure Wound Therapy N/A -Primary Dressing Applied Silvercel -Silvercel 1 #19 right lower leg cluster -Ulcer Cleansing Rinsed/ Irrigated with Saline -Primary Dressing Applied Silvercel -Silvercel 0 #18 left ankle -Ulcer Cleansing Rinsed/ Irrigated with Saline -Foul Odor after Cleansing No -Negative Pressure Wound Therapy N/A -Primary Dressing Applied Silvercel -Silvercel 0 #17 left great toe cluster -Ulcer Cleansing Rinsed/ Irrigated with Saline -Foul Odor after Cleansing No -Negative Pressure Wound Therapy N/A -Primary Dressing Applied Silvercel -Silvercel 0 #16 right third toe -Ulcer Cleansing Rinsed/ Irrigated with Saline -Foul Odor after Cleansing No -Negative Pressure Wound Therapy N/A -Primary Dressing Applied Silvercel -Silvercel 0 #15 right second toe -Ulcer Cleansing Rinsed/ Irrigated with Saline -Foul Odor after Cleansing No -Negative Pressure Wound Therapy N/A -Primary Dressing Applied Silvercel -Silvercel 0 #14right great toe -Ulcer Cleansing Rinsed/ Irrigated with Saline -Foul Odor after Cleansing No -Primary Dressing Applied Silvercel -Silvercel 0 Bilateral -Multi-Layered Wrap Application Unna Boot - Bilateral ($) -Unna Boots (Bilat) ($) 2 Left -Multi-Layered Wrap Application Unna Boot - Bilateral ($) -Unna Boots (Bilat) ($) 2 Additional Wound Wound debrided: Left great toe, right great toe second toe third toe DFU's Wound Grade/Stage: Stephens 2 Type of Debridement: Excisional debridement Anesthesia Used: 5% Lidocaine Gel Depth: Down to and including healthy tissue and in the subcutaneous layer Percentage of wound debrided: 100 Instrument Used: 5mm curette Tissue Removed: Slough and devitalized tissue Severity: Fat Layer Exposed Amount of bleeding with debridement: Mild Bleeding Controlled with: Pressure Patient tolerated procedure: Patient tolerated procedure well Additional Wound Wound debrided: Venous leg ulcers right lower extremities, left heel ulcer Laterality: Left Type of Debridement: Excisional debridement Anesthesia Used: 5% Lidocaine Gel Depth: in the subcutaneous layer Percentage of wound debrided: 100 Instrument Used: 5mm curette Tissue Removed: Slough and devitalized tissue Severity: Fat Layer Exposed Amount of bleeding with debridement: Mild Bleeding Controlled with: Pressure Assessment/Plan Assessment/Plan (1) Venous ulcer of right lower extremity with varicose veins: CODE(S): I83.019 - Varicose veins of right lower extremity with ulcer of unspecified site; L97.919 - Non-pressure chronic ulcer of unspecified part of right lower leg with unspecified severity (2) Venous ulcer of left lower extremity with varicose veins: CODE(S): I83.029 - Varicose veins of left lower extremity with ulcer of unspecified site; L97.929 - Non-pressure chronic ulcer of unspecified part of left lower leg with unspecified severity (3) Diabetic ulcer of right foot: CODE(S): E11.621 - Type 2 diabetes mellitus with foot ulcer; L97.519 - Non-pressure chronic ulcer of other part of right foot with unspecified severity (4) Diabetic ulcer of left foot: CODE(S): E11.621 - Type 2 diabetes mellitus with foot ulcer; L97.529 - Non-pressure chronic ulcer of other part of left foot with unspecified severity (5) Venous stasis ulcer of right thigh with fat layer exposed: CODE(S): I83.011 - Varicose veins of right lower extremity with ulcer of thigh; L97.112 - Non-pressure chronic ulcer of right thigh with fat layer exposed (6) Bilateral lower extremity edema: CODE(S): R60.0 - Localized edema (7) Venous insufficiency: CODE(S): I87.2 - Venous insufficiency (chronic) (peripheral) (8) Chronic acquired lymphedema: CODE(S): I89.0 - Lymphedema, not elsewhere classified (9) Elephantiasis: CODE(S): I89.0 - Lymphedema, not elsewhere classified (10) Type 2 diabetes mellitus: CODE(S): E11.9 - Type 2 diabetes mellitus without complications (11) Chronic back pain: CODE(S): M54.9 - Dorsalgia, unspecified; G89.29 - Other chronic pain (12) Benign hypertension: CODE(S): I10 - Essential (primary) hypertension PLAN: Debridement performed today in clinic as annotated above. Silver cell and bilateral Unna boots applied. PuraPly AM #1 was utilized to the left great toe DFU. 100% of the product was utilized and covered with wound veil and Steri-Strips for securement. Thin layer of hydrogel applied. At home wound-care instructions: Silver cell and bilateral Unna boots applied today and to be changed twice a week, she will apply triple antibiotic ointment, Adaptic, and [place] SAP foam to the right thigh ulcer. Compression: Bilateral Unna boots with lymphedema pumps to be utilized Off-loading: The patient was instructed to avoid pressure and friction on the affected areas. Reposition every 2 hours at minimum. Avoid prolonged standing and/or dangling of legs. When seated, feet should be elevated at chest level. Frequent ambulation is encouraged. Diet: Patient encouraged to increase protein intake while taking caution to avoid high carbohydrate and/or sugar intake. Patient is a non-smoker Labs/cultures/imaging: Cultures ordered and collected previously and showed staph aureus and patient was treated with doxycycline which she is tolerating well. Routine baseline lab work ordered and pending. Vascular studies ordered and pending. Given the patient's multiple dermatologic complaints, will refer her to dermatology. She is requesting to go to [facility]. Given the delayed wound healing and fact that patient has been under wound treatment plan since September 2020 at her assisted living facility and has failed standard wound care for greater than 4 weeks will apply for an advanced skin substitute. Follow-up: Return to clinic in 1 week for re-evaluation. Return sooner or report to the emergency room should symptoms worsen, or new symptoms arise. This note was generated with [employer] dictation software. It may contain incorrect words, spelling, and punctuation that were not noted in checking the note before signing. I have spent 65 minutes today reviewing labs, records, and history. Time includes coordinating care, interpretation of tests, and counseling the patient/family. This also includes time I spent with the patient for exam, treatment plan, and education as well as documenting clinical information in the electronic health record.
[2021-04-13 14:48] VITALS: BP 124/64; PULSE 92; RESP 18; TEMP 37.1
[2021-04-13 15:05] VITALS: BP 132/97; PULSE 82; TEMP 36.2
--- NOTE | 2021-04-13 21:49 | PN.PCM_ITS ---
History of Present Illness Date of Service: 04/13/21 Chief Complaint: Bilateral leg and bilateral foot ulcers History of Wound: This is a 71-year-old white female who presents to the wound healing center today with complaint of multiple wounds to her bilateral lower extremities. She has a past medical history as listed above significant for lymphedema, venous insufficiency, elephantiasis, type 2 diabetes mellitus, RILEY, hypertension, and morbid obesity. She reports that the majority of these wounds have been present since September 2020 and that she currently resides at [facility] and has had weekly wound visits from the wound nurse there. She has been utilizing compression and also utilizing antibiotic ointment covering with gauze. She notes that often she picks at her wounds and scratches them because they are itchy. She does note that she has been evaluated by dermatology in the past and was diagnosed with elephantiasis. The patient reports a moderate amount of clear drainage from her wounds. She does have lymphedema pumps at her assisted living facility but does not routinely utilize them. She has tolerated Unna boots well in the past. She denies any systemic signs of infection. Past medical, family, and social history reviewed and not pertinent to the current visit and all other systems reviewed and negative with exception of those listed above. Progress of Wound: Stable, no new concerns, patient did have cultures done which showed staph aureus and she was placed on doxycycline which she completed. Patient's wounds are improving in size. second application of purapply a.m. today Objective Data Objective Data Vital Signs: Vital Signs Temp Pulse Resp BP 97.2 F L 82 18 132/97 H 04/13/21 15:05 04/13/21 15:05 04/13/21 14:48 04/13/21 15:05 Oxygen Delivery Method Room Air Charges/Coding Procedures Integumentary 111xxx-113xx: 31878 Rachel subq tissue 20 sq cm/< 150xxx-152xx: [id number] Skin sub graft face/nk/hf/g Physical Exam Const alert, oriented x3, no apparent distress, healthy appearing and well nourished General Appearance: cooperative Exam Limitations: no limitations HEENT normocephalic Head and Scalp: normal to inspection Mouth: oral and palatal mucosa normal Eyes General Eye: normal appearance of both eyes Lymph Lymphatic: lymphedema moderate and elephantiasis Resp normal respiratory effort, normal air movement and no use of accessory muscles Effort and Inspection: able to speak in complete sentences Auscultation: clear to auscultation bilaterally Cardio regular rate, regular rhythm, S1 normal heart sound, S2 normal heart sound, no murmurs and peripheral pulses 2+ throughout Palpation: normal PMI Rate: regular rate Heart Sounds: S1 normal and S2 normal GI normal to inspection, nondistended, normoactive bowel sounds, soft to palpation, non-tender and non-distended Palpation: soft Extremity normal to inspection and full ROM General Extremity: normal exam except as noted Skin Skin Narrative: Multiple ulcerations present to right lower extremities with large amount of slough, diabetic foot ulcer present to left great toe, diabetic foot ulcer also present to right great toe. Ulcerations with visible scratch whitfield also present to right upper thigh, chronic venous changes present to bilateral lower extremities, dorsal pedis pulses 2+, small amount warmth and erythema present to right lower extremity but no obvious signs of cellulitis at this time, diabetic foot ulcers are Stephens grade 2 Neuro oriented x3 and moves all extremities Sensorium / Orientation: awake, alert, oriented to person, oriented to place and oriented to time Psych mental status grossly normal, thought process normal and denies hallucinations Appearance: grossly normal Attitude: calm Activity / Motor Behavior: appropriate eye contact Speech: normal speech Thought Process: normal thought process Thought Content: normal thought content Attention / Concentration: attention grossly intact Insight: insight good Judgement: judgement good Debridement Note Debridement Note Post-Debridement Measurements and Additional Note: Post-Debridement Measurements/Treatment CHIRAG - Nurse 1 - General Ulcer Assessment Start: 03/30/21 15:36 Freq: Status: Active Protocol: BRISA Activity Type Activity Date Activity User E-Sign Co-Sign Detail Recorded Client Recorded Date Recorded By Document 03/30/21 16:15 AK [id number] 03/30/21 16:32 AK Document 04/06/21 15:44 KR [id number] 04/06/21 15:49 KR Document 04/13/21 14:48 [facility] [id number] 04/13/21 15:05 BM Document 04/13/21 15:05 [facility] [id number] 04/13/21 15:13 [facility] 03/30/21 04/06/21 04/13/21 16:15 15:44 14:48 - Today's Visit Information Type of service Follow-up Visit Initial Visit Follow-up Visit (Physician/PUBLIC HEALTH DIETITIAN (Physician/PUBLIC HEALTH DIETITIAN ) ) Arrival Mode Wheelchair Wheelchair Wheelchair Transfer Assistance Other Transfer Assist (Other) STAND BY Patient Identification Verified (Name & Yes Yes Yes ) Patient Requires Transmission-Based No No Precautions Safety Precautions NA Vital Signs Temperature (97.8 F-99.1 F) 96.9 F L 97.0 F L 98.7 F Temperature Source Temporal Oral Temporal Pulse Rate (60-100) 69 71 92 Pulse Location Monitor Monitor Monitor Respiratory Rate (12-18) 18 Respiratory rate source Observation Oxygen Delivery Method Room Air Blood Pressure (90/60-120/80) 116/60 133/68 H 124/64 H Blood Pressure Mean (mm Hg) 78 89 84 Source Monitor Monitor Monitor Position Semi-Fowlers Sitting Blood Pressure Location Right Arm Left Arm History Since Last Visit- (Skip if this is Patient's initial visit) Have you changed medications since your No No No last visit? Any new allergies or adverse reactions No No No Had a fall/change in ADL's that may No No No increase risk of falls Signs or symptoms of abuse and/or No No No neglect since last visit Have you been in the hospital since your No No No last visit? Has dressing in place as prescribed Yes Yes No Has compression in place as prescribed Yes N/A No Has offloadiing in place as prescribed N/A N/A N/A Experienced any changes in pain level or No No No management Left Footwear Slipper Regular Shoe Slipper Right Footwear Slipper Regular Shoe Slipper Pain Scale: 0-10 Numeric Is Patient Pain Free? Yes Yes 04/13/21 15:05 - Today's Visit Information Type of service Follow-up Visit (Physician/PUBLIC HEALTH DIETITIAN ) Arrival Mode Ambulatory, Wheelchair Transfer Assistance Transfer Assist (Other) Patient Identification Verified (Name & Yes ) Patient Requires Transmission-Based No Precautions Safety Precautions NA Vital Signs Temperature (97.8 F-99.1 F) 97.2 F L Temperature Source Temporal Pulse Rate (60-100) 82 Pulse Location Monitor Respiratory Rate (12-18) Respiratory rate source Oxygen Delivery Method Blood Pressure (90/60-120/80) 132/97 H Blood Pressure Mean (mm Hg) 108 Source Monitor Position Blood Pressure Location History Since Last Visit- (Skip if this is Patient's initial visit) Have you changed medications since your No last visit? Any new allergies or adverse reactions No Had a fall/change in ADL's that may No increase risk of falls Signs or symptoms of abuse and/or No neglect since last visit Have you been in the hospital since your No last visit? Has dressing in place as prescribed Yes Has compression in place as prescribed N/A Has offloadiing in place as prescribed N/A Experienced any changes in pain level or No management Left Footwear Slipper Right Footwear Slipper Pain Scale: 0-10 Numeric Is Patient Pain Free? WC - Nurse 1 - General Ulcer Measurement Start: 03/30/21 15:36 Freq: Status: Active Protocol: Activity Type Activity Date Activity User E-Sign Co-Sign Detail Recorded Client Recorded Date Recorded By Document 03/30/21 16:15 AK [id number] 03/30/21 16:32 AK Document 04/06/21 15:44 KR [id number] 04/06/21 15:49 KR Document 04/13/21 14:48 BMF [id number] 04/13/21 15:05 BMF Document 04/13/21 15:05 BMF [id number] 04/13/21 15:13 BMF 03/30/21 04/06/21 04/13/21 16:15 15:44 14:48 Wound Center Nurse 1 #21right upper leg cluster -Current Size (cm) - Length 17 17 15 -Current Size (cm) - Width 21 24 12.3 -Current Size (cm) - Depth 0.1 1 0.1 -Total Square Cm 357 408 184.5 -Photo Taken No No -Epithelialization -Tunneling No No -Undermining/Tunneling No No -Circular Undermining No No -Change in Wound Grade/Stage -Exudate Amt None Present None Present None Present -Wound Margin Distinct, Distinct, Distinct, Outline Outline Outline Attached Attached Attached -Granulation Amt None Present (0 None Present (0 %) %) -Granulation Quality N/A N/A -Slough/Fibrin No No -Necrosis Amt Medium (34-66%) None Present (0 None Present (0 %) %) -Necrotic Tissue Type Eschar -Structure Exposed N/A N/A -Texture (Beatris-wound Skin Appearance) Assessed, No Abnormality, Assessed, Scarring Scarring Scarring,Rash -Moisture (Beatris-wound Skin Appearance) Assessed,Dry/ No Abnormality, Assessed Scaly Assessed,Dry/ Scaly -Color (Beatris-wound Skin Appearance) No Abnormality, No Abnormality, No Abnormality, Assessed Assessed Assessed -Temperature (Beatris-wound Skin No Abnormality No Abnormality No Abnormality Appearance) (Pt Warm) (Pt Warm) (Pt Warm) -Tenderness on Palpation (Beatris-wound Yes No No Skin Appearance) -Ulcer Cleansing soap and water Rinsed/ Rinsed/ Irrigated with Irrigated with Saline Saline -Foul Odor after Cleansing No No -Anesthetic Used 5% Lidocaine 4% Lidocaine 4% Lidocaine Gel Solution Solution #20 left lower leg cluster -Combined with other wound No -Current Size (cm) - Length 14 2 -Current Size (cm) - Width 14 19.5 -Current Size (cm) - Depth 0.1 1 -Total Square Cm 196 39.0 -Photo Taken No -Tunneling No -Undermining/Tunneling No -Circular Undermining No -Change in Wound Grade/Stage No -Exudate Amt None Present Small -Exudate Type Serosanguineous -Wound Margin Distinct, Distinct, Outline Outline Attached Attached -Granulation Amt None Present (0 None Present (0 %) %) -Necrosis Amt Large (67-100%) Large (67-100%) -Necrotic Tissue Type Eschar Adherent Slough -Structure Exposed N/A -Texture (Beatris-wound Skin Appearance) Assessed, Assessed, Scarring Scarring -Moisture (Beatris-wound Skin Appearance) Assessed No Abnormality, Assessed -Color (Beatris-wound Skin Appearance) Assessed No Abnormality, Assessed -Temperature (Beatris-wound Skin No Abnormality No Abnormality Appearance) (Pt Warm) (Pt Warm) -Tenderness on Palpation (Beatris-wound No No Skin Appearance) -Ulcer Cleansing soap and water Rinsed/ Irrigated with Saline -Foul Odor after Cleansing No -Anesthetic Used 5% Lidocaine 4% Lidocaine Gel Solution #19 right lower leg cluster -Combined with other wound No -Current Size (cm) - Length 12 2 3.3 -Current Size (cm) - Width 16 19.5 1.3 -Current Size (cm) - Depth 0.1 0.1 0.2 -Total Square Cm 192 39.0 4.29 -Photo Taken No No -Epithelialization -Tunneling No No -Undermining/Tunneling No No -Circular Undermining No No -Change in Wound Grade/Stage No No -Exudate Amt None Present -Exudate Type Serosanguineous -Wound Margin Distinct, Distinct, Outline Outline Attached Attached -Granulation Amt None Present (0 None Present (0 %) %) -Granulation Quality N/A -Slough/Fibrin Yes No -Necrosis Amt Large (67-100%) Medium (34-66%) None Present (0 %) -Necrotic Tissue Type Adherent Slough Adherent Slough -Structure Exposed N/A N/A -Texture (Beatris-wound Skin Appearance) No Abnormality, Assessed, Assessed, Assessed Scarring Scarring -Moisture (Beatris-wound Skin Appearance) No Abnormality, No Abnormality, No Abnormality, Assessed Assessed Assessed -Color (Beatris-wound Skin Appearance) No Abnormality, No Abnormality, No Abnormality, Assessed Assessed Assessed -Temperature (Beatris-wound Skin No Abnormality No Abnormality No Abnormality Appearance) (Pt Warm) (Pt Warm) (Pt Warm) -Tenderness on Palpation (Beatris-wound No No No Skin Appearance) -Ulcer Cleansing soap and water Rinsed/ Rinsed/ Irrigated with Irrigated with Saline Saline -Foul Odor after Cleansing No -Anesthetic Used 5% Lidocaine 4% Lidocaine 4% Lidocaine Gel Solution Solution #18 left ankle -Combined with other wound No No -Current Size (cm) - Length 1.5 1.2 0.5 -Current Size (cm) - Width 1.5 1.4 0.9 -Current Size (cm) - Depth 0.1 0.1 0.1 -Total Square Cm 2.25 1.68 0.45 -Photo Taken No No -Epithelialization None Present -Tunneling No No -Undermining/Tunneling No No -Circular Undermining No No -Change in Wound Grade/Stage No -Exudate Amt Large None Present -Exudate Type Serosanguineous -Wound Margin Distinct, Distinct, Thickened & Outline Outline Rolled Under Attached Attached -Granulation Amt None Present (0 Medium (34-66%) None Present (0 %) %) -Granulation Quality [employer] N/A -Slough/Fibrin No -Necrosis Amt Large (67-100%) None Present (0 %) -Necrotic Tissue Type Adherent Slough -Structure Exposed N/A N/A -Texture (Beatris-wound Skin Appearance) Assessed, Assessed, No Abnormality, Scarring Scarring Assessed -Moisture (Beatris-wound Skin Appearance) Assessed, No Abnormality, No Abnormality, Weeping Assessed Assessed -Color (Beatris-wound Skin Appearance) No Abnormality, No Abnormality, No Abnormality, Assessed Assessed Assessed -Temperature (Beatris-wound Skin No Abnormality No Abnormality No Abnormality Appearance) (Pt Warm) (Pt Warm) (Pt Warm) -Tenderness on Palpation (Beatris-wound No No No Skin Appearance) -Ulcer Cleansing soap and water Rinsed/ Rinsed/ Irrigated with Irrigated with Saline Saline -Foul Odor after Cleansing No No -Anesthetic Used 5% Lidocaine 4% Lidocaine 4% Lidocaine Gel Solution Solution #17 left great toe cluster -Combined with other wound -Current Size (cm) - Length 6 0.5 -Current Size (cm) - Width 5 0.3 -Current Size (cm) - Depth 0.1 0.2 -Total Square Cm 30 0.15 -Photo Taken No -Epithelialization None Present -Tunneling No -Undermining/Tunneling No -Circular Undermining No -Exudate Amt Small -Exudate Type Serosanguineous Serosanguineous -Wound Margin Distinct, Distinct, Outline Outline Attached Attached -Granulation Amt None Present (0 %) -Granulation Quality N/A -Slough/Fibrin Yes -Necrosis Amt Large (67-100%) Small (1-33%) -Necrotic Tissue Type Adherent Slough Adherent Slough -Structure Exposed N/A -Texture (Beatris-wound Skin Appearance) No Abnormality, Assessed, Assessed Scarring -Moisture (Beatris-wound Skin Appearance) Assessed, No Abnormality, Maceration, Assessed Weeping -Color (Beatris-wound Skin Appearance) No Abnormality, No Abnormality, Assessed Assessed -Temperature (Beatris-wound Skin No Abnormality No Abnormality Appearance) (Pt Warm) (Pt Warm) -Tenderness on Palpation (Beatris-wound No No Skin Appearance) -Ulcer Cleansing soap and water Rinsed/ Irrigated with Saline -Foul Odor after Cleansing No -Anesthetic Used 5% Lidocaine 4% Lidocaine Gel Solution #16 right third toe -Current Size (cm) - Length 0.1 0.1 -Current Size (cm) - Width 0.1 0.1 -Current Size (cm) - Depth 0.1 0.1 -Total Square Cm 0.01 0.01 -Photo Taken No -Tunneling No -Undermining/Tunneling No -Circular Undermining No -Change in Wound Grade/Stage No -Exudate Amt None Present None Present -Wound Margin Distinct, Distinct, Outline Outline Attached Attached -Granulation Amt None Present (0 %) -Necrosis Amt Small (1-33%) None Present (0 %) -Necrotic Tissue Type Eschar -Texture (Beatris-wound Skin Appearance) No Abnormality, Assessed, Assessed Scarring -Moisture (Beatris-wound Skin Appearance) No Abnormality, No Abnormality, Assessed Assessed -Color (Beatris-wound Skin Appearance) No Abnormality, No Abnormality, Assessed Assessed -Temperature (Beatris-wound Skin No Abnormality No Abnormality Appearance) (Pt Warm) (Pt Warm) -Tenderness on Palpation (Beatris-wound No No Skin Appearance) -Ulcer Cleansing soap and water Rinsed/ Irrigated with Saline -Foul Odor after Cleansing No -Anesthetic Used 5% Lidocaine 4% Lidocaine Gel Solution #15 right second toe -Combined with other wound No -Current Size (cm) - Length 0.1 0.1 -Current Size (cm) - Width 0.1 0.1 -Current Size (cm) - Depth 0.1 0.1 -Total Square Cm 0.01 0.01 -Photo Taken No -Epithelialization None Present -Tunneling No -Undermining/Tunneling No -Circular Undermining No -Change in Wound Grade/Stage No -Exudate Amt None Present None Present -Exudate Type -Wound Margin Distinct, Distinct, Outline Outline Attached Attached -Granulation Amt None Present (0 None Present (0 %) %) -Granulation Quality N/A -Slough/Fibrin No -Necrosis Amt Small (1-33%) None Present (0 %) -Necrotic Tissue Type Eschar -Structure Exposed N/A -Texture (Beatris-wound Skin Appearance) No Abnormality, Assessed, Assessed Scarring -Moisture (Beatris-wound Skin Appearance) No Abnormality, No Abnormality, Assessed Assessed -Color (Beatris-wound Skin Appearance) No Abnormality, No Abnormality, Assessed Assessed -Temperature (Beatris-wound Skin No Abnormality No Abnormality Appearance) (Pt Warm) (Pt Warm) -Tenderness on Palpation (Beatris-wound No No Skin Appearance) -Ulcer Cleansing soap and water Rinsed/ Irrigated with Saline -Foul Odor after Cleansing No -Anesthetic Used 5% Lidocaine 4% Lidocaine Gel Solution #14right great toe -Combined with other wound -Current Size (cm) - Length 1.1 1 -Current Size (cm) - Width 1 0.6 -Current Size (cm) - Depth 0.1 0.1 -Total Square Cm 1.1 0.6 -Photo Taken No -Tunneling No -Undermining/Tunneling No -Circular Undermining No -Change in Wound Grade/Stage -Exudate Amt Medium Small -Exudate Type Serosanguineous Serosanguineous -Wound Margin Distinct, Distinct, Outline Outline Attached Attached -Granulation Amt None Present (0 %) -Granulation Quality N/A -Slough/Fibrin Yes -Necrosis Amt Medium (34-66%) Small (1-33%) -Necrotic Tissue Type Adherent Slough Adherent Slough -Structure Exposed N/A -Texture (Beatris-wound Skin Appearance) No Abnormality, Assessed, Assessed Scarring -Moisture (Beatris-wound Skin Appearance) No Abnormality, No Abnormality, Assessed Assessed -Color (Beatris-wound Skin Appearance) No Abnormality, No Abnormality, Assessed Assessed -Temperature (Beatris-wound Skin No Abnormality No Abnormality Appearance) (Pt Warm) (Pt Warm) -Tenderness on Palpation (Beatris-wound No No Skin Appearance) -Ulcer Cleansing soap and water Rinsed/ Irrigated with Saline -Foul Odor after Cleansing No -Anesthetic Used 5% Lidocaine 4% Lidocaine Gel Solution Lower Limb Edema Present Right Calf (cm) 41 Right Ankle (cm) 23 Left Calf (cm) 44 Left Ankle (cm) Left Foot (cm) 24 04/13/21 15:05 Wound Center Nurse 1 #21right upper leg cluster -Current Size (cm) - Length 14 -Current Size (cm) - Width 12 -Current Size (cm) - Depth 0.1 -Total Square Cm 168 -Photo Taken No -Epithelialization None Present -Tunneling No -Undermining/Tunneling No -Circular Undermining No -Change in Wound Grade/Stage No -Exudate Amt None Present -Wound Margin Distinct, Outline Attached -Granulation Amt None Present (0 %) -Granulation Quality N/A -Slough/Fibrin No -Necrosis Amt None Present (0 %) -Necrotic Tissue Type -Structure Exposed N/A -Texture (Beatris-wound Skin Appearance) No Abnormality, Assessed -Moisture (Beatris-wound Skin Appearance) No Abnormality, Assessed -Color (Beatris-wound Skin Appearance) No Abnormality, Assessed -Temperature (Beatris-wound Skin No Abnormality Appearance) (Pt Warm) -Tenderness on Palpation (Beatris-wound No Skin Appearance) -Ulcer Cleansing Rinsed/ Irrigated with Saline -Foul Odor after Cleansing No -Anesthetic Used 4% Lidocaine Solution #20 left lower leg cluster -Combined with other wound -Current Size (cm) - Length -Current Size (cm) - Width -Current Size (cm) - Depth -Total Square Cm -Photo Taken -Tunneling -Undermining/Tunneling -Circular Undermining -Change in Wound Grade/Stage -Exudate Amt -Exudate Type -Wound Margin -Granulation Amt -Necrosis Amt -Necrotic Tissue Type -Structure Exposed -Texture (Beatris-wound Skin Appearance) -Moisture (Beatris-wound Skin Appearance) -Color (Beatris-wound Skin Appearance) -Temperature (Beatris-wound Skin Appearance) -Tenderness on Palpation (Beatris-wound Skin Appearance) -Ulcer Cleansing -Foul Odor after Cleansing -Anesthetic Used #19 right lower leg cluster -Combined with other wound No -Current Size (cm) - Length 3.3 -Current Size (cm) - Width 1.3 -Current Size (cm) - Depth 0.2 -Total Square Cm 4.29 -Photo Taken No -Epithelialization None Present -Tunneling No -Undermining/Tunneling No -Circular Undermining No -Change in Wound Grade/Stage No -Exudate Amt None Present -Exudate Type -Wound Margin Distinct, Outline Attached -Granulation Amt None Present (0 %) -Granulation Quality N/A -Slough/Fibrin No -Necrosis Amt None Present (0 %) -Necrotic Tissue Type -Structure Exposed N/A -Texture (Beatris-wound Skin Appearance) Assessed, Scarring -Moisture (Beatris-wound Skin Appearance) No Abnormality, Assessed -Color (Beatris-wound Skin Appearance) No Abnormality, Assessed -Temperature (Beatris-wound Skin No Abnormality Appearance) (Pt Warm) -Tenderness on Palpation (Beatris-wound Yes Skin Appearance) -Ulcer Cleansing Rinsed/ Irrigated with Saline -Foul Odor after Cleansing No -Anesthetic Used 4% Lidocaine Solution #18 left ankle -Combined with other wound -Current Size (cm) - Length 0.5 -Current Size (cm) - Width 0.9 -Current Size (cm) - Depth 0.1 -Total Square Cm 0.45 -Photo Taken No -Epithelialization None Present -Tunneling No -Undermining/Tunneling No -Circular Undermining No -Change in Wound Grade/Stage No -Exudate Amt None Present -Exudate Type -Wound Margin Thickened & Rolled Under -Granulation Amt None Present (0 %) -Granulation Quality N/A -Slough/Fibrin No -Necrosis Amt None Present (0 %) -Necrotic Tissue Type -Structure Exposed N/A -Texture (Beatris-wound Skin Appearance) No Abnormality, Assessed -Moisture (Beatris-wound Skin Appearance) No Abnormality, Assessed -Color (Beatris-wound Skin Appearance) No Abnormality, Assessed -Temperature (Beatris-wound Skin No Abnormality Appearance) (Pt Warm) -Tenderness on Palpation (Beatris-wound No Skin Appearance) -Ulcer Cleansing Rinsed/ Irrigated with Saline -Foul Odor after Cleansing No -Anesthetic Used 4% Lidocaine Solution #17 left great toe cluster -Combined with other wound No -Current Size (cm) - Length 5.7 -Current Size (cm) - Width 3 -Current Size (cm) - Depth 0.2 -Total Square Cm 17.1 -Photo Taken No -Epithelialization None Present -Tunneling No -Undermining/Tunneling No -Circular Undermining No -Exudate Amt Medium -Exudate Type Serosanguineous -Wound Margin Distinct, Outline Attached -Granulation Amt None Present (0 %) -Granulation Quality N/A -Slough/Fibrin Yes -Necrosis Amt Medium (34-66%) -Necrotic Tissue Type Adherent Slough -Structure Exposed N/A -Texture (Beatris-wound Skin Appearance) No Abnormality, Assessed -Moisture (Beatris-wound Skin Appearance) No Abnormality, Assessed -Color (Beatris-wound Skin Appearance) No Abnormality, Assessed -Temperature (Beatris-wound Skin No Abnormality Appearance) (Pt Warm) -Tenderness on Palpation (Beatris-wound No Skin Appearance) -Ulcer Cleansing Rinsed/ Irrigated with Saline -Foul Odor after Cleansing No -Anesthetic Used 4% Lidocaine Solution #16 right third toe -Current Size (cm) - Length -Current Size (cm) - Width -Current Size (cm) - Depth -Total Square Cm -Photo Taken -Tunneling -Undermining/Tunneling -Circular Undermining -Change in Wound Grade/Stage -Exudate Amt -Wound Margin -Granulation Amt -Necrosis Amt -Necrotic Tissue Type -Texture (Beatris-wound Skin Appearance) -Moisture (Beatris-wound Skin Appearance) -Color (Beatris-wound Skin Appearance) -Temperature (Beatris-wound Skin Appearance) -Tenderness on Palpation (Beatris-wound Skin Appearance) -Ulcer Cleansing -Foul Odor after Cleansing -Anesthetic Used #15 right second toe -Combined with other wound No -Current Size (cm) - Length 0.6 -Current Size (cm) - Width 0.4 -Current Size (cm) - Depth 0.1 -Total Square Cm 0.24 -Photo Taken No -Epithelialization -Tunneling No -Undermining/Tunneling No -Circular Undermining No -Change in Wound Grade/Stage No -Exudate Amt Medium -Exudate Type Serosanguineous -Wound Margin Distinct, Outline Attached -Granulation Amt None Present (0 %) -Granulation Quality N/A -Slough/Fibrin Yes -Necrosis Amt Small (1-33%) -Necrotic Tissue Type Adherent Slough -Structure Exposed N/A -Texture (Beatris-wound Skin Appearance) No Abnormality, Assessed -Moisture (Beatris-wound Skin Appearance) No Abnormality, Assessed -Color (Beatris-wound Skin Appearance) No Abnormality, Assessed -Temperature (Beatris-wound Skin No Abnormality Appearance) (Pt Warm) -Tenderness on Palpation (Beatris-wound No Skin Appearance) -Ulcer Cleansing Rinsed/ Irrigated with Saline -Foul Odor after Cleansing No -Anesthetic Used 4% Lidocaine Solution #14right great toe -Combined with other wound No -Current Size (cm) - Length 0.8 -Current Size (cm) - Width 0.6 -Current Size (cm) - Depth 0.1 -Total Square Cm 0.48 -Photo Taken No -Tunneling No -Undermining/Tunneling No -Circular Undermining No -Change in Wound Grade/Stage No -Exudate Amt None Present -Exudate Type -Wound Margin Distinct, Outline Attached -Granulation Amt None Present (0 %) -Granulation Quality N/A -Slough/Fibrin -Necrosis Amt Medium (34-66%) -Necrotic Tissue Type Adherent Slough -Structure Exposed N/A -Texture (Beatris-wound Skin Appearance) No Abnormality, Assessed -Moisture (Beatris-wound Skin Appearance) No Abnormality, Assessed -Color (Beatris-wound Skin Appearance) No Abnormality, Assessed -Temperature (Beatris-wound Skin No Abnormality Appearance) (Pt Warm) -Tenderness on Palpation (Beatris-wound No Skin Appearance) -Ulcer Cleansing Rinsed/ Irrigated with Saline -Foul Odor after Cleansing No -Anesthetic Used 4% Lidocaine Solution Lower Limb Edema Present No Right Calf (cm) 47.3 Right Ankle (cm) 21.6 Left Calf (cm) 47.3 Left Ankle (cm) 23 Left Foot (cm) WC - Nurse 2 - General Ulcer CM Notes Start: 03/30/21 15:36 Freq: Status: Active Protocol: Activity Type Activity Date Activity User E-Sign Co-Sign Detail Recorded Client Recorded Date Recorded By Document 03/30/21 15:30 MW [id number] 03/30/21 17:18 MW Document 04/06/21 15:50 MT [id number] 04/06/21 16:06 MT Document 04/13/21 15:31 MW [id number] 04/13/21 15:36 MW 03/30/21 04/06/21 04/13/21 15:30 15:50 15:31 Wound Center Nurse 2 #21right upper leg cluster -Time 15:30 15:52 15:31 -Correct Patient Yes Yes Yes -Correct Side, Site, Position Yes Yes Yes -Correct Procedure Yes Yes Yes -Procedure Performed No Yes No -Type of Procedure Debridement -Clinical Debridement Subcutaneous -Tissue Removed Subcutaneous -Post Debridement (cm) - Length 0.1 0 -Post Debridement (cm) - Width 0.1 0 -Post Debridement (cm) - Depth 0.1 0 -Total Square (Post) (cm) 0.01 0 -Area of Debridement (cm) - Length 0.1 -Area of Debridement (cm) - Width 0.1 -Total Square (Area) (cm) 0.01 -Tunneling No No -Undermining/Tunneling No No -Circular Undermining No No -Wound/Ulcer Outcome Not Healed Not Healed Healed- Epithelialized -Ulcer Cleansing Not Cleansed Rinsed/ Irrigated with Saline -Foul Odor after Cleansing No No -Bioengineered Tissue No No -Bleeding Controlled with NA Pressure -Offloading No -Treatment Response Procedure Tolerated Well -Debridement - Subq, 1st 20sq cm Yes #20 left lower leg cluster -Time 15:30 15:51 -Correct Patient Yes Yes -Correct Side, Site, Position Yes Yes -Correct Procedure Yes Yes -Procedure Performed Yes No -Type of Procedure Debridement -Clinical Debridement Subcutaneous -Tissue Removed Subcutaneous -Post Debridement (cm) - Length 5.0 0 -Post Debridement (cm) - Width 2.5 0 -Post Debridement (cm) - Depth 0.1 0 -Total Square (Post) (cm) 12.50 0 -Area of Debridement (cm) - Length 5.0 -Area of Debridement (cm) - Width 2.5 -Total Square (Area) (cm) 12.50 -Tunneling No -Undermining/Tunneling No -Circular Undermining No -Wound/Ulcer Outcome Not Healed Healed- Epithelialized -Ulcer Cleansing Rinsed/ Irrigated with Saline -Foul Odor after Cleansing No -Bioengineered Tissue No -Bleeding Controlled with Pressure -Offloading No -Treatment Response Procedure Tolerated Well -Debridement - Subq, 1st 20sq cm Yes -Debridement, SubQ, ea addt'l 20sq cm 2 or part thereof #19 right lower leg cluster -Time 15:30 15:53 15:31 -Correct Patient Yes Yes Yes -Correct Side, Site, Position Yes Yes Yes -Correct Procedure Yes Yes Yes -Procedure Performed Yes Yes Yes -Type of Procedure Debridement Debridement Debridement -Clinical Debridement Subcutaneous Subcutaneous Subcutaneous -Tissue Removed Subcutaneous Subcutaneous Subcutaneous -Post Debridement (cm) - Length 5.0 2.0 1.2 -Post Debridement (cm) - Width 3.0 1.0 1.8 -Post Debridement (cm) - Depth 0.1 0.1 0.2 -Total Square (Post) (cm) 15.00 2.00 2.16 -Area of Debridement (cm) - Length 5.0 2.0 1.2 -Area of Debridement (cm) - Width 3.0 1.0 1.8 -Total Square (Area) (cm) 15.00 2.00 2.16 -Tunneling No No No -Undermining/Tunneling No No No -Circular Undermining No No No -Wound/Ulcer Outcome Not Healed Not Healed Not Healed -Ulcer Cleansing Rinsed/ Rinsed/ Rinsed/ Irrigated with Irrigated with Irrigated with Saline Saline Saline -Foul Odor after Cleansing No No No -Bioengineered Tissue No No No -Bleeding Controlled with Pressure Pressure Pressure -Offloading No No No -Treatment Response Procedure Procedure Procedure Tolerated Well Tolerated Well Tolerated Well -Debridement - Subq, 1st 20sq cm No No Yes #18 left ankle -Time 15:30 15:54 15:32 -Correct Patient Yes Yes Yes -Correct Side, Site, Position Yes Yes Yes -Correct Procedure Yes Yes Yes -Procedure Performed Yes Yes Yes -Type of Procedure Debridement Debridement Debridement -Clinical Debridement Subcutaneous Subcutaneous Subcutaneous -Tissue Removed Subcutaneous Subcutaneous Subcutaneous -Post Debridement (cm) - Length 2.8 1.0 1.0 -Post Debridement (cm) - Width 3.0 1.5 1.0 -Post Debridement (cm) - Depth 0.1 0.1 0.1 -Total Square (Post) (cm) 8.40 1.50 1.00 -Area of Debridement (cm) - Length 2.8 1.0 1.0 -Area of Debridement (cm) - Width 3.0 1.5 1.0 -Total Square (Area) (cm) 8.40 1.50 1.00 -Tunneling No No No -Undermining/Tunneling No No No -Circular Undermining No No No -Wound/Ulcer Outcome Not Healed Not Healed Not Healed -Ulcer Cleansing Rinsed/ Rinsed/ Rinsed/ Irrigated with Irrigated with Irrigated with Saline Saline Saline -Foul Odor after Cleansing No No No -Bioengineered Tissue No No No -Bleeding Controlled with Pressure Pressure Pressure -Offloading No No No -Treatment Response Procedure Procedure Tolerated Well Tolerated Well -Debridement - Subq, 1st 20sq cm No No No #17 left great toe cluster -Time 15:30 15:54 15:33 -Correct Patient Yes Yes Yes -Correct Side, Site, Position Yes Yes Yes -Correct Procedure Yes Yes Yes -Procedure Performed Yes Yes Yes -Type of Procedure Debridement Debridement Debridement -Clinical Debridement Subcutaneous Subcutaneous Subcutaneous -Tissue Removed Subcutaneous Subcutaneous Subcutaneous -Post Debridement (cm) - Length 6.0 6.0 6.0 -Post Debridement (cm) - Width 2.0 1.5 0.8 -Post Debridement (cm) - Depth 0.1 0.2 0.2 -Total Square (Post) (cm) 12.00 9.00 4.80 -Area of Debridement (cm) - Length 6.0 6.0 6.0 -Area of Debridement (cm) - Width 2.0 1.5 0.8 -Total Square (Area) (cm) 12.00 9.00 4.80 -Tunneling No No No -Undermining/Tunneling No No No -Circular Undermining No No No -Wound/Ulcer Outcome Not Healed Not Healed Not Healed -Ulcer Cleansing Rinsed/ Rinsed/ Rinsed/ Irrigated with Irrigated with Irrigated with Saline Saline Saline -Foul Odor after Cleansing No No No -Bioengineered Tissue No Yes Yes -Type of Bioengineered Tissue PuraPly AM PuraPly AM -Expiration Date 05/30/23 05/30/23 -Product Lot Number [id number] -Percent Used 100 100 -Lot number of Saline Used [id number] -Bleeding Controlled with Pressure Pressure Pressure -Offloading No No No -Treatment Response Procedure Procedure Procedure Tolerated Well Tolerated Well Tolerated Well -Debridement - Subq, 1st 20sq cm No No No -Apply Skin Sub - 1st 25 sq cm - Feet 1 1 -PuraPly AM (per sq cm) 12 12 #16 right third toe -Time 17:13 15:55 -Correct Patient Yes Yes -Correct Side, Site, Position Yes Yes -Correct Procedure Yes Yes -Procedure Performed Yes No -Type of Procedure Debridement -Clinical Debridement Subcutaneous -Tissue Removed Subcutaneous -Post Debridement (cm) - Length 0.1 0 -Post Debridement (cm) - Width 0.1 0 -Post Debridement (cm) - Depth 0.1 0 -Total Square (Post) (cm) 0.01 0 -Area of Debridement (cm) - Length 0.1 -Area of Debridement (cm) - Width 0.1 -Total Square (Area) (cm) 0.01 -Tunneling No -Undermining/Tunneling No -Circular Undermining No -Wound/Ulcer Outcome Not Healed Healed- Epithelialized -Ulcer Cleansing Rinsed/ Irrigated with Saline -Foul Odor after Cleansing No -Bioengineered Tissue No -Bleeding Controlled with Pressure -Offloading No -Treatment Response Procedure Tolerated Well -Debridement - Subq, 1st 20sq cm No #15 right second toe -Time 15:30 16:03 15:35 -Correct Patient Yes Yes Yes -Correct Side, Site, Position Yes Yes Yes -Correct Procedure Yes Yes Yes -Procedure Performed Yes Yes No -Type of Procedure Debridement Debridement -Clinical Debridement Subcutaneous Subcutaneous -Tissue Removed Subcutaneous Subcutaneous -Post Debridement (cm) - Length 1.0 1 0 -Post Debridement (cm) - Width 0.5 0.5 0 -Post Debridement (cm) - Depth 0.1 0.2 0 -Total Square (Post) (cm) 0.50 0.5 0 -Area of Debridement (cm) - Length 1.0 1 -Area of Debridement (cm) - Width 0.5 0.5 -Total Square (Area) (cm) 0.50 0.5 -Tunneling No -Undermining/Tunneling No No -Circular Undermining No No -Wound/Ulcer Outcome Not Healed Not Healed Healed- Epithelialized -Ulcer Cleansing Rinsed/ Rinsed/ Irrigated with Irrigated with Saline Saline -Foul Odor after Cleansing No No -Bioengineered Tissue No No -Bleeding Controlled with Pressure Pressure -Offloading No No -Treatment Response Procedure Tolerated Well -Debridement - Subq, 1st 20sq cm No No #14right great toe -Time 15:30 16:05 15:35 -Correct Patient Yes Yes Yes -Correct Side, Site, Position Yes Yes Yes -Correct Procedure Yes Yes Yes -Procedure Performed Yes Yes Yes -Type of Procedure Debridement Debridement Debridement -Clinical Debridement Subcutaneous Subcutaneous Subcutaneous -Tissue Removed Subcutaneous Subcutaneous Subcutaneous -Post Debridement (cm) - Length 2.5 2.0 2.0 -Post Debridement (cm) - Width 2.0 1.5 0.5 -Post Debridement (cm) - Depth 0.2 0.2 0.1 -Total Square (Post) (cm) 5.00 3.00 1.00 -Area of Debridement (cm) - Length 2.5 2.0 2.0 -Area of Debridement (cm) - Width 2.0 1.5 0.5 -Total Square (Area) (cm) 5.00 3.00 1.00 -Tunneling No No No -Undermining/Tunneling No No No -Circular Undermining No No No -Wound/Ulcer Outcome Not Healed Not Healed Not Healed -Ulcer Cleansing Rinsed/ Rinsed/ Rinsed/ Irrigated with Irrigated with Irrigated with Saline Saline Saline -Foul Odor after Cleansing No No No -Bioengineered Tissue No No No -Bleeding Controlled with Pressure Pressure Pressure -Offloading No No No -Treatment Response Procedure Procedure Procedure Tolerated Well Tolerated Well Tolerated Well -Debridement - Subq, 1st 20sq cm No No No Pain Scale: 0-10 Numeric Is Patient Pain Free? Yes Yes Yes WC - Nurse 3 - General Ulcer D/C NN Start: 03/30/21 15:36 Freq: Status: Active Protocol: Activity Type Activity Date Activity User E-Sign Co-Sign Detail Recorded Client Recorded Date Recorded By Document 03/30/21 16:15 AK [id number] 03/30/21 16:32 AK Document 04/07/21 07:27 PL [id number] 04/07/21 07:28 PL Document 04/13/21 15:55 DL [id number] 04/13/21 15:57 DL 03/30/21 04/07/21 04/13/21 16:15 07:27 15:55 Vital Signs Temperature (97.8 F-99.1 F) 96.9 F L Temperature Source Temporal Pulse Rate (60-100) 69 Pulse Location Monitor Blood Pressure (90/60-120/80) 116/60 Blood Pressure Mean (mm Hg) 78 Source Monitor Pain Scale: 0-10 Numeric Is Patient Pain Free? Yes Wound Care Nurse 3 #21right upper leg cluster -Ulcer Cleansing Rinsed/ Irrigated with Saline -Primary Dressing Applied Mepilex Border, NonAdherent Contact Layer -Mepilex Border 2 #20 left lower leg cluster -Ulcer Cleansing Rinsed/ Irrigated with Saline -Foul Odor after Cleansing No -Negative Pressure Wound Therapy N/A -Primary Dressing Applied Silvercel -Silvercel 1 #19 right lower leg cluster -Ulcer Cleansing Rinsed/ Irrigated with Saline -Primary Dressing Applied Silvercel -Other Dressing Unna boot -Silvercel 0 #18 left ankle -Ulcer Cleansing Rinsed/ Rinsed/ Irrigated with Irrigated with Saline Saline -Foul Odor after Cleansing No No -Negative Pressure Wound Therapy N/A -Primary Dressing Applied Silvercel -Other Dressing unna boot -Silvercel 0 #17 left great toe cluster -Ulcer Cleansing Rinsed/ Irrigated with Saline -Foul Odor after Cleansing No No -Negative Pressure Wound Therapy N/A -Primary Dressing Applied Silvercel -Other Dressing PuraPly -Primary Dressing Covered/Secured with Dry Gauze, Secured with Tape -Silvercel 0 #16 right third toe -Ulcer Cleansing Rinsed/ Irrigated with Saline -Foul Odor after Cleansing No -Negative Pressure Wound Therapy N/A -Primary Dressing Applied Silvercel -Silvercel 0 #15 right second toe -Ulcer Cleansing Rinsed/ Irrigated with Saline -Foul Odor after Cleansing No -Negative Pressure Wound Therapy N/A -Primary Dressing Applied Silvercel -Silvercel 0 #14right great toe -Ulcer Cleansing Rinsed/ Irrigated with Saline -Foul Odor after Cleansing No No -Primary Dressing Applied Silvercel -Other Dressing PuraPly -Primary Dressing Covered/Secured with Dry Gauze, Secured with Tape -Silvercel 0 Bilateral -Multi-Layered Wrap Application Unna Boot - Unna Boot - Bilateral ($) Bilateral ($) -Unna Boots (Bilat) ($) 2 2 Left -Multi-Layered Wrap Application Unna Boot - Bilateral ($) -Unna Boots (Bilat) ($) 2 Treatment Response Procedure Tolerated Well WC - Visit Discharge Discharge Condition Stable Ambulatory Status Wheelchair Transportation [facility] transport Facility Type [facility] Care Facility Orders Sent Yes Additional Wound Wound debrided: Left great toe, right great toe DFU's Wound Grade/Stage: Stephens 2 Type of Debridement: Excisional debridement Anesthesia Used: 5% Lidocaine Gel Depth: Down to and including healthy tissue and in the subcutaneous layer Percentage of wound debrided: 100 Instrument Used: 5mm curette Tissue Removed: Slough and devitalized tissue Severity: Fat Layer Exposed Amount of bleeding with debridement: Mild Bleeding Controlled with: Pressure Patient tolerated procedure: Patient tolerated procedure well Additional Wound Wound debrided: Venous leg ulcers right lower extremities, left heel ulcer Laterality: Left Type of Debridement: Excisional debridement Anesthesia Used: 5% Lidocaine Gel Depth: in the subcutaneous layer Percentage of wound debrided: 100 Instrument Used: 5mm curette Tissue Removed: Slough and devitalized tissue Severity: Fat Layer Exposed Amount of bleeding with debridement: Mild Bleeding Controlled with: Pressure Assessment/Plan Assessment/Plan (1) Venous ulcer of right lower extremity with varicose veins: CODE(S): I83.019 - Varicose veins of right lower extremity with ulcer of unspecified site; L97.919 - Non-pressure chronic ulcer of unspecified part of right lower leg with unspecified severity (2) Venous ulcer of left lower extremity with varicose veins: CODE(S): I83.029 - Varicose veins of left lower extremity with ulcer of unspecified site; L97.929 - Non-pressure chronic ulcer of unspecified part of left lower leg with unspecified severity (3) Diabetic ulcer of right foot: CODE(S): E11.621 - Type 2 diabetes mellitus with foot ulcer; L97.519 - Non-pressure chronic ulcer of other part of right foot with unspecified severity (4) Diabetic ulcer of left foot: CODE(S): E11.621 - Type 2 diabetes mellitus with foot ulcer; L97.529 - Non-pressure chronic ulcer of other part of left foot with unspecified severity (5) Venous stasis ulcer of right thigh with fat layer exposed: CODE(S): I83.011 - Varicose veins of right lower extremity with ulcer of thigh; L97.112 - Non-pressure chronic ulcer of right thigh with fat layer exp osed (6) Bilateral lower extremity edema: CODE(S): R60.0 - Localized edema (7) Venous insufficiency: CODE(S): I87.2 - Venous insufficiency (chronic) (peripheral) (8) Chronic acquired lymphedema: CODE(S): I89.0 - Lymphedema, not elsewhere classified (9) Elephantiasis: CODE(S): I89.0 - Lymphedema, not elsewhere classified (10) Type 2 diabetes mellitus: CODE(S): E11.9 - Type 2 diabetes mellitus without complications (11) Chronic back pain: CODE(S): M54.9 - Dorsalgia, unspecified; G89.29 - Other chronic pain (12) Benign hypertension: CODE(S): I10 - Essential (primary) hypertension PLAN: Debridement performed today in clinic as annotated above. suzanna and bilateral Unna boots applied. PuraPly AM #2 was utilized to the left great toe DFU. 100% of the product was utilized and covered with wound veil and Steri-Strips for securement. Thin layer of hydrogel applied. At home wound-care instructions: Suzanna and bilateral Unna boots applied today and to be changed twice a week, she will apply triple antibiotic ointment, Adaptic, and Sedan SAP foam to the right thigh ulcer. Compression: Bilateral Unna boots with lymphedema pumps to be utilized Off-loading: The patient was instructed to avoid pressure and friction on the affected areas. Reposition every 2 hours at minimum. Avoid prolonged standing and/or dangling of legs. When seated, feet should be elevated at chest level. Frequent ambulation is encouraged. Diet: Patient encouraged to increase protein intake while taking caution to avoid high carbohydrate and/or sugar intake. Patient is a non-smoker Labs/cultures/imaging: Cultures ordered and collected previously and showed staph aureus and patient was treated with doxycycline which she is tolerating well. Routine baseline lab work ordered and pending. Vascular studies ordered and pending. Given the patient's multiple dermatologic complaints, will refer her to dermatology. She is requesting to go to [facility]. Given the delayed wound healing and fact that patient has been under wound treatment plan since September 2020 at her assisted living facility and has failed standard wound care for greater than 4 weeks will apply for an advanced skin substitute. Follow-up: Return to clinic in 1 week for re-evaluation. Return sooner or report to the emergency room should symptoms worsen, or new symptoms arise. This note was generated with [employer] dictation software. It may contain incorrect words, spelling, and punctuation that were not noted in checking the note before signing. I have spent 65 minutes today reviewing labs, records, and history. Time includes coordinating care, interpretation of tests, and counseling the patient/family. This also includes time I spent with the patient for exam, treatment plan, and education as well as documenting clinical information in the electronic health record.
[2021-04-20 15:11] VITALS: BP 109/88; PULSE 97; TEMP 36.6
--- NOTE | 2021-04-20 23:46 | PN.PCM_ITS ---
History of Present Illness Date of Service: 04/20/21 Chief Complaint: Bilateral leg and bilateral foot ulcers History of Wound: This is a 71-year-old white female who presents to the wound healing center today with complaint of multiple wounds to her bilateral lower extremities. She has a past medical history as listed above significant for lymphedema, venous insufficiency, elephantiasis, type 2 diabetes mellitus, RILEY, hypertension, and morbid obesity. She reports that the majority of these wounds have been present since September 2020 and that she currently resides at [facility] and has had weekly wound visits from the wound nurse there. She has been utilizing compression and also utilizing antibiotic ointment covering with gauze. She notes that often she picks at her wounds and scratches them because they are itchy. She does note that she has been evaluated by dermatology in the past and was diagnosed with elephantiasis. The patient reports a moderate amount of clear drainage from her wounds. She does have lymphedema pumps at her assisted living facility but does not routinely utilize them. She has tolerated Unna boots well in the past. She denies any systemic signs of infection. Past medical, family, and social history reviewed and not pertinent to the current visit and all other systems reviewed and negative with exception of those listed above. Progress of Wound: Stable, no new concerns, patient did have cultures done which showed staph aureus and she was placed on doxycycline which she completed. Patient's wounds are improving in size. first application of nushield today Objective Data Objective Data Vital Signs: Vital Signs Temp Pulse Resp BP 97.8 F 97 18 109/88 H 04/20/21 15:11 04/20/21 15:11 04/13/21 14:48 04/20/21 15:11 Oxygen Delivery Method Room Air Charges/Coding Procedures Integumentary 111xxx-113xx: [id number] Rachel subq tissue 20 sq cm/< 150xxx-152xx: [id number] Skin sub graft trnk/arm/leg Physical Exam Const alert, oriented x3, no apparent distress, healthy appearing and well nourished General Appearance: cooperative Exam Limitations: no limitations HEENT normocephalic Head and Scalp: normal to inspection Mouth: oral and palatal mucosa normal Eyes General Eye: normal appearance of both eyes Lymph Lymphatic: lymphedema moderate and elephantiasis Resp normal respiratory effort, normal air movement and no use of accessory muscles Effort and Inspection: able to speak in complete sentences Auscultation: clear to auscultation bilaterally Cardio regular rate, regular rhythm, S1 normal heart sound, S2 normal heart sound, no murmurs and peripheral pulses 2+ throughout Palpation: normal PMI Rate: regular rate Heart Sounds: S1 normal and S2 normal GI normal to inspection, nondistended, normoactive bowel sounds, soft to palpation, non-tender and non-distended Palpation: soft Extremity normal to inspection and full ROM General Extremity: normal exam except as noted Skin Skin Narrative: Multiple ulcerations present to right lower extremity with large amount of slough, diabetic foot ulcer present to left great toe,left heel, diabetic foot ulcer also present to right great toe. Ulcerations with visible scratch whitfield also present to right upper thigh, chronic venous changes present to bilateral lower extremities, dorsal pedis pulses 2+, small amount warmth and erythema present to right lower extremity but no obvious signs of cellulitis at this time, diabetic foot ulcers are Stephens grade 2 Neuro oriented x3 and moves all extremities Sensorium / Orientation: awake, alert, oriented to person, oriented to place and oriented to time Psych mental status grossly normal, thought process normal and denies hallucinations Appearance: grossly normal Attitude: calm Activity / Motor Behavior: appropriate eye contact Speech: normal speech Thought Process: normal thought process Thought Content: normal thought content Attention / Concentration: attention grossly intact Insight: insight good Judgement: judgement good Debridement Note Debridement Note Post-Debridement Measurements and Additional Note: Post-Debridement Measurements/Treatment CHIRAG - Nurse 1 - General Ulcer Assessment Start: 03/30/21 15:36 Freq: Status: Active Protocol: BRISA Activity Type Activity Date Activity User E-Sign Co-Sign Detail Recorded Client Recorded Date Recorded By Document 03/30/21 16:15 AK [id number] 03/30/21 16:32 AK Document 04/06/21 15:44 KR [id number] 04/06/21 15:49 KR Document 04/13/21 14:48 [facility] [id number] 04/13/21 15:05 BM Document 04/13/21 15:05 BMF [id number] 04/13/21 15:13 BMF Document 04/20/21 15:11 AK [id number] 04/20/21 15:20 AK 03/30/21 04/06/21 04/13/21 16:15 15:44 14:48 [facility] Today's Visit Information Type of service Follow-up Visit Initial Visit Follow-up Visit (Physician/SOCIAL WORKER ASSISTANT (Physician/SOCIAL WORKER ASSISTANT ) ) Arrival Mode Wheelchair Wheelchair Wheelchair Transfer Assistance Other Transfer Assist (Other) STAND BY Patient Identification Verified (Name & Yes Yes Yes ) Patient Requires Transmission-Based No No Precautions Safety Precautions NA Vital Signs Temperature (97.8 F-99.1 F) 96.9 F L 97.0 F L 98.7 F Temperature Source Temporal Oral Temporal Pulse Rate (60-100) 69 71 92 Pulse Location Monitor Monitor Monitor Respiratory Rate (12-18) 18 Respiratory rate source Observation Oxygen Delivery Method Room Air Blood Pressure (90/60-120/80) 116/60 133/68 H 124/64 H Blood Pressure Mean (mm Hg) 78 89 84 Source Monitor Monitor Monitor Position Semi-Fowlers Sitting Blood Pressure Location Right Arm Left Arm History Since Last Visit- (Skip if this is Patient's initial visit) Have you changed medications since your No No No last visit? Any new allergies or adverse reactions No No No Had a fall/change in ADL's that may No No No increase risk of falls Signs or symptoms of abuse and/or No No No neglect since last visit Have you been in the hospital since your No No No last visit? Has dressing in place as prescribed Yes Yes No Has compression in place as prescribed Yes N/A No Has offloadiing in place as prescribed N/A N/A N/A Experienced any changes in pain level or No No No management Left Footwear Slipper Regular Shoe Slipper Right Footwear Slipper Regular Shoe Slipper Pain Scale: 0-10 Numeric Is Patient Pain Free? Yes Yes 04/13/21 04/20/21 15:05 15:11 [facility] Today's Visit Information Type of service Follow-up Visit Follow-up Visit (Physician/SOCIAL WORKER ASSISTANT (Physician/SOCIAL WORKER ASSISTANT ) ) Arrival Mode Ambulatory, Wheelchair Wheelchair Transfer Assistance Transfer Assist (Other) Patient Identification Verified (Name & Yes Yes ) Patient Requires Transmission-Based No No Precautions Safety Precautions NA NA Vital Signs Temperature (97.8 F-99.1 F) 97.2 F L 97.8 F Temperature Source Temporal Temporal Pulse Rate (60-100) 82 97 Pulse Location Monitor Monitor Respiratory Rate (12-18) Respiratory rate source Oxygen Delivery Method Blood Pressure (90/60-120/80) 132/97 H 109/88 H Blood Pressure Mean (mm Hg) 108 95 Source Monitor Monitor Position Blood Pressure Location History Since Last Visit- (Skip if this is Patient's initial visit) Have you changed medications since your No No last visit? Any new allergies or adverse reactions No No Had a fall/change in ADL's that may No No increase risk of falls Signs or symptoms of abuse and/or No No neglect since last visit Have you been in the hospital since your No No last visit? Has dressing in place as prescribed Yes Yes Has compression in place as prescribed N/A Yes Has offloadiing in place as prescribed N/A N/A Experienced any changes in pain level or No No management Left Footwear Slipper Slipper Right Footwear Slipper Slipper Pain Scale: 0-10 Numeric Is Patient Pain Free? WC - Nurse 1 - General Ulcer Measurement Start: 03/30/21 15:36 Freq: Status: Active Protocol: Activity Type Activity Date Activity User E-Sign Co-Sign Detail Recorded Client Recorded Date Recorded By Document 03/30/21 16:15 AK [id number] 03/30/21 16:32 AK Document 04/06/21 15:44 KR [id number] 04/06/21 15:49 KR Document 04/13/21 14:48 [facility] [id number] 04/13/21 15:05 BM Document 04/13/21 15:05 BMF [id number] 04/13/21 15:13 BM Document 04/20/21 15:11 AK [id number] 04/20/21 15:20 AK 03/30/21 04/06/21 04/13/21 16:15 15:44 14:48 Wound Center Nurse 1 #21right upper leg cluster -Current Size (cm) - Length 17 17 15 -Current Size (cm) - Width 21 24 12.3 -Current Size (cm) - Depth 0.1 1 0.1 -Total Square Cm 357 408 184.5 -Photo Taken No No -Epithelialization -Tunneling No No -Undermining/Tunneling No No -Circular Undermining No No -Change in Wound Grade/Stage -Exudate Amt None Present None Present None Present -Wound Margin Distinct, Distinct, Distinct, Outline Outline Outline Attached Attached Attached -Granulation Amt None Present (0 None Present (0 %) %) -Granulation Quality N/A N/A -Slough/Fibrin No No -Necrosis Amt Medium (34-66%) None Present (0 None Present (0 %) %) -Necrotic Tissue Type Eschar -Structure Exposed N/A N/A -Texture (Beatris-wound Skin Appearance) Assessed, No Abnormality, Assessed, Scarring Scarring Scarring,Rash -Moisture (Beatris-wound Skin Appearance) Assessed,Dry/ No Abnormality, Assessed Scaly Assessed,Dry/ Scaly -Color (Beatris-wound Skin Appearance) No Abnormality, No Abnormality, No Abnormality, Assessed Assessed Assessed -Temperature (Beatris-wound Skin No Abnormality No Abnormality No Abnormality Appearance) (Pt Warm) (Pt Warm) (Pt Warm) -Tenderness on Palpation (Beatris-wound Yes No No Skin Appearance) -Ulcer Cleansing soap and water Rinsed/ Rinsed/ Irrigated with Irrigated with Saline Saline -Foul Odor after Cleansing No No -Anesthetic Used 5% Lidocaine 4% Lidocaine 4% Lidocaine Gel Solution Solution #20 left lower leg cluster -Combined with other wound No -Current Size (cm) - Length 14 2 -Current Size (cm) - Width 14 19.5 -Current Size (cm) - Depth 0.1 1 -Total Square Cm 196 39.0 -Photo Taken No -Tunneling No -Undermining/Tunneling No -Circular Undermining No -Change in Wound Grade/Stage No -Exudate Amt None Present Small -Exudate Type Serosanguineous -Wound Margin Distinct, Distinct, Outline Outline Attached Attached -Granulation Amt None Present (0 None Present (0 %) %) -Necrosis Amt Large (67-100%) Large (67-100%) -Necrotic Tissue Type Eschar Adherent Slough -Structure Exposed N/A -Texture (Beatris-wound Skin Appearance) Assessed, Assessed, Scarring Scarring -Moisture (Beatris-wound Skin Appearance) Assessed No Abnormality, Assessed -Color (Beatris-wound Skin Appearance) Assessed No Abnormality, Assessed -Temperature (Beatris-wound Skin No Abnormality No Abnormality Appearance) (Pt Warm) (Pt Warm) -Tenderness on Palpation (Beatris-wound No No Skin Appearance) -Ulcer Cleansing soap and water Rinsed/ Irrigated with Saline -Foul Odor after Cleansing No -Anesthetic Used 5% Lidocaine 4% Lidocaine Gel Solution #19 right lower leg cluster -Combined with other wound No -Current Size (cm) - Length 12 2 3.3 -Current Size (cm) - Width 16 19.5 1.3 -Current Size (cm) - Depth 0.1 0.1 0.2 -Total Square Cm 192 39.0 4.29 -Photo Taken No No -Epithelialization -Tunneling No No -Undermining/Tunneling No No -Circular Undermining No No -Change in Wound Grade/Stage No No -Exudate Amt None Present -Exudate Type Serosanguineous -Wound Margin Distinct, Distinct, Outline Outline Attached Attached -Granulation Amt None Present (0 None Present (0 %) %) -Granulation Quality N/A -Slough/Fibrin Yes No -Necrosis Amt Large (67-100%) Medium (34-66%) None Present (0 %) -Necrotic Tissue Type Adherent Slough Adherent Slough -Structure Exposed N/A N/A -Texture (Beatris-wound Skin Appearance) No Abnormality, Assessed, Assessed, Assessed Scarring Scarring -Moisture (Beatris-wound Skin Appearance) No Abnormality, No Abnormality, No Abnormality, Assessed Assessed Assessed -Color (Beatris-wound Skin Appearance) No Abnormality, No Abnormality, No Abnormality, Assessed Assessed Assessed -Temperature (Beatris-wound Skin No Abnormality No Abnormality No Abnormality Appearance) (Pt Warm) (Pt Warm) (Pt Warm) -Tenderness on Palpation (Beatris-wound No No No Skin Appearance) -Ulcer Cleansing soap and water Rinsed/ Rinsed/ Irrigated with Irrigated with Saline Saline -Foul Odor after Cleansing No -Anesthetic Used 5% Lidocaine 4% Lidocaine 4% Lidocaine Gel Solution Solution #18 left ankle -Combined with other wound No No -Current Size (cm) - Length 1.5 1.2 0.5 -Current Size (cm) - Width 1.5 1.4 0.9 -Current Size (cm) - Depth 0.1 0.1 0.1 -Total Square Cm 2.25 1.68 0.45 -Photo Taken No No -Epithelialization None Present -Tunneling No No -Undermining/Tunneling No No -Circular Undermining No No -Change in Wound Grade/Stage No -Exudate Amt Large None Present -Exudate Type Serosanguineous -Wound Margin Distinct, Distinct, Thickened & Outline Outline Rolled Under Attached Attached -Granulation Amt None Present (0 Medium (34-66%) None Present (0 %) %) -Granulation Quality [place] N/A -Slough/Fibrin No -Necrosis Amt Large (67-100%) None Present (0 %) -Necrotic Tissue Type Adherent Slough -Structure Exposed N/A N/A -Texture (Beatris-wound Skin Appearance) Assessed, Assessed, No Abnormality, Scarring Scarring Assessed -Moisture (Beatris-wound Skin Appearance) Assessed, No Abnormality, No Abnormality, Weeping Assessed Assessed -Color (Beatris-wound Skin Appearance) No Abnormality, No Abnormality, No Abnormality, Assessed Assessed Assessed -Temperature (Beatris-wound Skin No Abnormality No Abnormality No Abnormality Appearance) (Pt Warm) (Pt Warm) (Pt Warm) -Tenderness on Palpation (Beatris-wound No No No Skin Appearance) -Ulcer Cleansing soap and water Rinsed/ Rinsed/ Irrigated with Irrigated with Saline Saline -Foul Odor after Cleansing No No -Anesthetic Used 5% Lidocaine 4% Lidocaine 4% Lidocaine Gel Solution Solution #17 left great toe cluster -Combined with other wound -Current Size (cm) - Length 6 0.5 -Current Size (cm) - Width 5 0.3 -Current Size (cm) - Depth 0.1 0.2 -Total Square Cm 30 0.15 -Photo Taken No -Epithelialization None Present -Tunneling No -Undermining/Tunneling No -Circular Undermining No -Change in Wound Grade/Stage -Exudate Amt Small -Exudate Type Serosanguineous Serosanguineous -Wound Margin Distinct, Distinct, Outline Outline Attached Attached -Granulation Amt None Present (0 %) -Granulation Quality N/A -Slough/Fibrin Yes -Necrosis Amt Large (67-100%) Small (1-33%) -Necrotic Tissue Type Adherent Slough Adherent Slough -Structure Exposed N/A -Texture (Beatris-wound Skin Appearance) No Abnormality, Assessed, Assessed Scarring -Moisture (Beatris-wound Skin Appearance) Assessed, No Abnormality, Maceration, Assessed Weeping -Color (Beatris-wound Skin Appearance) No Abnormality, No Abnormality, Assessed Assessed -Temperature (Beatris-wound Skin No Abnormality No Abnormality Appearance) (Pt Warm) (Pt Warm) -Tenderness on Palpation (Beatris-wound No No Skin Appearance) -Ulcer Cleansing soap and water Rinsed/ Irrigated with Saline -Foul Odor after Cleansing No -Anesthetic Used 5% Lidocaine 4% Lidocaine Gel Solution #16 right third toe -Current Size (cm) - Length 0.1 0.1 -Current Size (cm) - Width 0.1 0.1 -Current Size (cm) - Depth 0.1 0.1 -Total Square Cm 0.01 0.01 -Photo Taken No -Tunneling No -Undermining/Tunneling No -Circular Undermining No -Change in Wound Grade/Stage No -Exudate Amt None Present None Present -Wound Margin Distinct, Distinct, Outline Outline Attached Attached -Granulation Amt None Present (0 %) -Necrosis Amt Small (1-33%) None Present (0 %) -Necrotic Tissue Type Eschar -Texture (Beatris-wound Skin Appearance) No Abnormality, Assessed, Assessed Scarring -Moisture (Beatris-wound Skin Appearance) No Abnormality, No Abnormality, Assessed Assessed -Color (Beatris-wound Skin Appearance) No Abnormality, No Abnormality, Assessed Assessed -Temperature (Beatris-wound Skin No Abnormality No Abnormality Appearance) (Pt Warm) (Pt Warm) -Tenderness on Palpation (Beatris-wound No No Skin Appearance) -Ulcer Cleansing soap and water Rinsed/ Irrigated with Saline -Foul Odor after Cleansing No -Anesthetic Used 5% Lidocaine 4% Lidocaine Gel Solution #15 right second toe -Combined with other wound No -Current Size (cm) - Length 0.1 0.1 -Current Size (cm) - Width 0.1 0.1 -Current Size (cm) - Depth 0.1 0.1 -Total Square Cm 0.01 0.01 -Photo Taken No -Epithelialization None Present -Tunneling No -Undermining/Tunneling No -Circular Undermining No -Change in Wound Grade/Stage No -Exudate Amt None Present None Present -Exudate Type -Wound Margin Distinct, Distinct, Outline Outline Attached Attached -Granulation Amt None Present (0 None Present (0 %) %) -Granulation Quality N/A -Slough/Fibrin No -Necrosis Amt Small (1-33%) None Present (0 %) -Necrotic Tissue Type Eschar -Structure Exposed N/A -Texture (Beatris-wound Skin Appearance) No Abnormality, Assessed, Assessed Scarring -Moisture (Beatris-wound Skin Appearance) No Abnormality, No Abnormality, Assessed Assessed -Color (Beatris-wound Skin Appearance) No Abnormality, No Abnormality, Assessed Assessed -Temperature (Beatris-wound Skin No Abnormality No Abnormality Appearance) (Pt Warm) (Pt Warm) -Tenderness on Palpation (Beatris-wound No No Skin Appearance) -Ulcer Cleansing soap and water Rinsed/ Irrigated with Saline -Foul Odor after Cleansing No -Anesthetic Used 5% Lidocaine 4% Lidocaine Gel Solution #14right great toe -Combined with other wound -Current Size (cm) - Length 1.1 1 -Current Size (cm) - Width 1 0.6 -Current Size (cm) - Depth 0.1 0.1 -Total Square Cm 1.1 0.6 -Photo Taken No -Tunneling No -Undermining/Tunneling No -Circular Undermining No -Change in Wound Grade/Stage -Exudate Amt Medium Small -Exudate Type Serosanguineous Serosanguineous -Wound Margin Distinct, Distinct, Outline Outline Attached Attached -Granulation Amt None Present (0 %) -Granulation Quality N/A -Slough/Fibrin Yes -Necrosis Amt Medium (34-66%) Small (1-33%) -Necrotic Tissue Type Adherent Slough Adherent Slough -Structure Exposed N/A -Texture (Beatris-wound Skin Appearance) No Abnormality, Assessed, Assessed Scarring -Moisture (Beatris-wound Skin Appearance) No Abnormality, No Abnormality, Assessed Assessed -Color (Beatris-wound Skin Appearance) No Abnormality, No Abnormality, Assessed Assessed -Temperature (Beatris-wound Skin No Abnormality No Abnormality Appearance) (Pt Warm) (Pt Warm) -Tenderness on Palpation (Beatris-wound No No Skin Appearance) -Ulcer Cleansing soap and water Rinsed/ Irrigated with Saline -Foul Odor after Cleansing No -Anesthetic Used 5% Lidocaine 4% Lidocaine Gel Solution Lower Limb Edema Present Right Calf (cm) 41 Right Ankle (cm) 23 Left Calf (cm) 44 Left Ankle (cm) Left Foot (cm) 24 04/13/21 04/20/21 15:05 15:11 Wound Center Nurse 1 #21right upper leg cluster -Current Size (cm) - Length 14 -Current Size (cm) - Width 12 -Current Size (cm) - Depth 0.1 -Total Square Cm 168 -Photo Taken No -Epithelialization None Present -Tunneling No -Undermining/Tunneling No -Circular Undermining No -Change in Wound Grade/Stage No -Exudate Amt None Present -Wound Margin Distinct, Outline Attached -Granulation Amt None Present (0 %) -Granulation Quality N/A -Slough/Fibrin No -Necrosis Amt None Present (0 %) -Necrotic Tissue Type -Structure Exposed N/A -Texture (Beatris-wound Skin Appearance) No Abnormality, Assessed -Moisture (Beatris-wound Skin Appearance) No Abnormality, Assessed -Color (Beatris-wound Skin Appearance) No Abnormality, Assessed -Temperature (Beatris-wound Skin No Abnormality Appearance) (Pt Warm) -Tenderness on Palpation (Beatris-wound No Skin Appearance) -Ulcer Cleansing Rinsed/ Irrigated with Saline -Foul Odor after Cleansing No -Anesthetic Used 4% Lidocaine Solution #20 left lower leg cluster -Combined with other wound -Current Size (cm) - Length -Current Size (cm) - Width -Current Size (cm) - Depth -Total Square Cm -Photo Taken -Tunneling -Undermining/Tunneling -Circular Undermining -Change in Wound Grade/Stage -Exudate Amt -Exudate Type -Wound Margin -Granulation Amt -Necrosis Amt -Necrotic Tissue Type -Structure Exposed -Texture (Beatris-wound Skin Appearance) -Moisture (Beatris-wound Skin Appearance) -Color (Beatris-wound Skin Appearance) -Temperature (Beatris-wound Skin Appearance) -Tenderness on Palpation (Beatris-wound Skin Appearance) -Ulcer Cleansing -Foul Odor after Cleansing -Anesthetic Used #19 right lower leg cluster -Combined with other wound No No -Current Size (cm) - Length 3.3 0.8 -Current Size (cm) - Width 1.3 1.4 -Current Size (cm) - Depth 0.2 -Total Square Cm 4.29 1.12 -Photo Taken No No -Epithelialization None Present None Present -Tunneling No No -Undermining/Tunneling No No -Circular Undermining No No -Change in Wound Grade/Stage No No -Exudate Amt None Present Small -Exudate Type Serosanguineous -Wound Margin Distinct, Distinct, Outline Outline Attached Attached -Granulation Amt None Present (0 None Present (0 %) %) -Granulation Quality N/A N/A -Slough/Fibrin No Yes -Necrosis Amt None Present (0 Medium (34-66%) %) -Necrotic Tissue Type Adherent Slough -Structure Exposed N/A N/A -Texture (Beatris-wound Skin Appearance) Assessed, No Abnormality, Scarring Assessed -Moisture (Beatris-wound Skin Appearance) No Abnormality, No Abnormality, Assessed Assessed -Color (Beatris-wound Skin Appearance) No Abnormality, No Abnormality, Assessed Assessed -Temperature (Beatris-wound Skin No Abnormality No Abnormality Appearance) (Pt Warm) (Pt Warm) -Tenderness on Palpation (Beatris-wound Yes Yes Skin Appearance) -Ulcer Cleansing Rinsed/ Rinsed/ Irrigated with Irrigated with Saline Saline -Foul Odor after Cleansing No No -Anesthetic Used 4% Lidocaine 4% Lidocaine Solution Solution #18 left ankle -Combined with other wound No -Current Size (cm) - Length 0.5 1 -Current Size (cm) - Width 0.9 1.3 -Current Size (cm) - Depth 0.1 0.1 -Total Square Cm 0.45 1.3 -Photo Taken No No -Epithelialization None Present -Tunneling No No -Undermining/Tunneling No No -Circular Undermining No No -Change in Wound Grade/Stage No -Exudate Amt None Present Small -Exudate Type Sanguineous -Wound Margin Thickened & Distinct, Rolled Under Outline Attached -Granulation Amt None Present (0 None Present (0 %) %) -Granulation Quality N/A N/A -Slough/Fibrin No No -Necrosis Amt None Present (0 Medium (34-66%) %) -Necrotic Tissue Type Adherent Slough -Structure Exposed N/A N/A -Texture (Beatris-wound Skin Appearance) No Abnormality, No Abnormality, Assessed Assessed -Moisture (Beatris-wound Skin Appearance) No Abnormality, No Abnormality, Assessed Assessed -Color (Beatris-wound Skin Appearance) No Abnormality, No Abnormality, Assessed Assessed -Temperature (Beatris-wound Skin No Abnormality No Abnormality Appearance) (Pt Warm) (Pt Warm) -Tenderness on Palpation (Beatris-wound No No Skin Appearance) -Ulcer Cleansing Rinsed/ Rinsed/ Irrigated with Irrigated with Saline Saline -Foul Odor after Cleansing No No -Anesthetic Used 4% Lidocaine 4% Lidocaine Solution Solution #17 left great toe cluster -Combined with other wound No No -Current Size (cm) - Length 5.7 0.8 -Current Size (cm) - Width 3 0.8 -Current Size (cm) - Depth 0.2 0.1 -Total Square Cm 17.1 0.64 -Photo Taken No No -Epithelialization None Present None Present -Tunneling No No -Undermining/Tunneling No No -Circular Undermining No No -Change in Wound Grade/Stage No -Exudate Amt Medium Medium -Exudate Type Serosanguineous Serosanguineous -Wound Margin Distinct, Distinct, Outline Outline Attached Attached -Granulation Amt None Present (0 None Present (0 %) %) -Granulation Quality N/A N/A -Slough/Fibrin Yes Yes -Necrosis Amt Medium (34-66%) Medium (34-66%) -Necrotic Tissue Type Adherent Slough Adherent Slough -Structure Exposed N/A N/A -Texture (Beatris-wound Skin Appearance) No Abnormality, No Abnormality, Assessed Assessed -Moisture (Beatris-wound Skin Appearance) No Abnormality, No Abnormality, Assessed Assessed -Color (Beatris-wound Skin Appearance) No Abnormality, No Abnormality, Assessed Assessed -Temperature (Beatris-wound Skin No Abnormality No Abnormality Appearance) (Pt Warm) (Pt Warm) -Tenderness on Palpation (Beatris-wound No No Skin Appearance) -Ulcer Cleansing Rinsed/ Rinsed/ Irrigated with Irrigated with Saline Saline -Foul Odor after Cleansing No No -Anesthetic Used 4% Lidocaine 4% Lidocaine Solution Solution #16 right third toe -Current Size (cm) - Length -Current Size (cm) - Width -Current Size (cm) - Depth -Total Square Cm -Photo Taken -Tunneling -Undermining/Tunneling -Circular Undermining -Change in Wound Grade/Stage -Exudate Amt -Wound Margin -Granulation Amt -Necrosis Amt -Necrotic Tissue Type -Texture (Beatris-wound Skin Appearance) -Moisture (Beatris-wound Skin Appearance) -Color (Beatris-wound Skin Appearance) -Temperature (Beatris-wound Skin Appearance) -Tenderness on Palpation (Beatris-wound Skin Appearance) -Ulcer Cleansing -Foul Odor after Cleansing -Anesthetic Used #15 right second toe -Combined with other wound No -Current Size (cm) - Length 0.6 -Current Size (cm) - Width 0.4 -Current Size (cm) - Depth 0.1 -Total Square Cm 0.24 -Photo Taken No -Epithelialization -Tunneling No -Undermining/Tunneling No -Circular Undermining No -Change in Wound Grade/Stage No -Exudate Amt Medium -Exudate Type Serosanguineous -Wound Margin Distinct, Outline Attached -Granulation Amt None Present (0 %) -Granulation Quality N/A -Slough/Fibrin Yes -Necrosis Amt Small (1-33%) -Necrotic Tissue Type Adherent Slough -Structure Exposed N/A -Texture (Beatris-wound Skin Appearance) No Abnormality, Assessed -Moisture (Beatris-wound Skin Appearance) No Abnormality, Assessed -Color (Beatris-wound Skin Appearance) No Abnormality, Assessed -Temperature (Beatris-wound Skin No Abnormality Appearance) (Pt Warm) -Tenderness on Palpation (Beatris-wound No Skin Appearance) -Ulcer Cleansing Rinsed/ Irrigated with Saline -Foul Odor after Cleansing No -Anesthetic Used 4% Lidocaine Solution #14right great toe -Combined with other wound No No -Current Size (cm) - Length 0.8 2 -Current Size (cm) - Width 0.6 0.7 -Current Size (cm) - Depth 0.1 0.1 -Total Square Cm 0.48 1.4 -Photo Taken No No -Tunneling No No -Undermining/Tunneling No No -Circular Undermining No No -Change in Wound Grade/Stage No No -Exudate Amt None Present Medium -Exudate Type Sanguineous -Wound Margin Distinct, Distinct, Outline Outline Attached Attached -Granulation Amt None Present (0 %) -Granulation Quality N/A N/A -Slough/Fibrin Yes -Necrosis Amt Medium (34-66%) Medium (34-66%) -Necrotic Tissue Type Adherent Slough Adherent Slough -Structure Exposed N/A N/A -Texture (Beatris-wound Skin Appearance) No Abnormality, No Abnormality, Assessed Assessed -Moisture (Beatris-wound Skin Appearance) No Abnormality, No Abnormality, Assessed Assessed -Color (Beatris-wound Skin Appearance) No Abnormality, No Abnormality, Assessed Assessed,Not Assessed -Temperature (Beatris-wound Skin No Abnormality No Abnormality Appearance) (Pt Warm) (Pt Warm) -Tenderness on Palpation (Beatris-wound No Yes Skin Appearance) -Ulcer Cleansing Rinsed/ Rinsed/ Irrigated with Irrigated with Saline Saline -Foul Odor after Cleansing No No -Anesthetic Used 4% Lidocaine 4% Lidocaine Solution Solution Lower Limb Edema Present No Right Calf (cm) 47.3 39.5 Right Ankle (cm) 21.6 23 Left Calf (cm) 47.3 42 Left Ankle (cm) 23 23.5 Left Foot (cm) WC - Nurse 2 - General Ulcer CM Notes Start: 03/30/21 15:36 Freq: Status: Active Protocol: Activity Type Activity Date Activity User E-Sign Co-Sign Detail Recorded Client Recorded Date Recorded By Document 03/30/21 15:30 MW [id number] 03/30/21 17:18 MW Document 04/06/21 15:50 MT [id number] 04/06/21 16:06 MT Document 04/13/21 15:31 MW [id number] 04/13/21 15:36 MW Document 04/20/21 15:27 MW [id number] 04/20/21 15:45 MW 03/30/21 04/06/21 04/13/21 15:30 15:50 15:31 Wound Center Nurse 2 #21right upper leg cluster -Time 15:30 15:52 15:31 -Correct Patient Yes Yes Yes -Correct Side, Site, Position Yes Yes Yes -Correct Procedure Yes Yes Yes -Procedure Performed No Yes No -Type of Procedure Debridement -Clinical Debridement Subcutaneous -Tissue Removed Subcutaneous -Post Debridement (cm) - Length 0.1 0 -Post Debridement (cm) - Width 0.1 0 -Post Debridement (cm) - Depth 0.1 0 -Total Square (Post) (cm) 0.01 0 -Area of Debridement (cm) - Length 0.1 -Area of Debridement (cm) - Width 0.1 -Total Square (Area) (cm) 0.01 -Tunneling No No -Undermining/Tunneling No No -Circular Undermining No No -Wound/Ulcer Outcome Not Healed Not Healed Healed- Epithelialized -Ulcer Cleansing Not Cleansed Rinsed/ Irrigated with Saline -Foul Odor after Cleansing No No -Bioengineered Tissue No No -Bleeding Controlled with NA Pressure -Offloading No -Treatment Response Procedure Tolerated Well -Debridement - Subq, 1st 20sq cm Yes #20 left lower leg cluster -Time 15:30 15:51 -Correct Patient Yes Yes -Correct Side, Site, Position Yes Yes -Correct Procedure Yes Yes -Procedure Performed Yes No -Type of Procedure Debridement -Clinical Debridement Subcutaneous -Tissue Removed Subcutaneous -Post Debridement (cm) - Length 5.0 0 -Post Debridement (cm) - Width 2.5 0 -Post Debridement (cm) - Depth 0.1 0 -Total Square (Post) (cm) 12.50 0 -Area of Debridement (cm) - Length 5.0 -Area of Debridement (cm) - Width 2.5 -Total Square (Area) (cm) 12.50 -Tunneling No -Undermining/Tunneling No -Circular Undermining No -Wound/Ulcer Outcome Not Healed Healed- Epithelialized -Ulcer Cleansing Rinsed/ Irrigated with Saline -Foul Odor after Cleansing No -Bioengineered Tissue No -Bleeding Controlled with Pressure -Offloading No -Treatment Response Procedure Tolerated Well -Debridement - Subq, 1st 20sq cm Yes -Debridement, SubQ, ea addt'l 20sq cm 2 or part thereof #19 right lower leg cluster -Time 15:30 15:53 15:31 -Correct Patient Yes Yes Yes -Correct Side, Site, Position Yes Yes Yes -Correct Procedure Yes Yes Yes -Procedure Performed Yes Yes Yes -Type of Procedure Debridement Debridement Debridement -Clinical Debridement Subcutaneous Subcutaneous Subcutaneous -Tissue Removed Subcutaneous Subcutaneous Subcutaneous -Post Debridement (cm) - Length 5.0 2.0 1.2 -Post Debridement (cm) - Width 3.0 1.0 1.8 -Post Debridement (cm) - Depth 0.1 0.1 0.2 -Total Square (Post) (cm) 15.00 2.00 2.16 -Area of Debridement (cm) - Length 5.0 2.0 1.2 -Area of Debridement (cm) - Width 3.0 1.0 1.8 -Total Square (Area) (cm) 15.00 2.00 2.16 -Tunneling No No No -Undermining/Tunneling No No No -Circular Undermining No No No -Wound/Ulcer Outcome Not Healed Not Healed Not Healed -Ulcer Cleansing Rinsed/ Rinsed/ Rinsed/ Irrigated with Irrigated with Irrigated with Saline Saline Saline -Foul Odor after Cleansing No No No -Bioengineered Tissue No No No -Bleeding Controlled with Pressure Pressure Pressure -Offloading No No No -Treatment Response Procedure Procedure Procedure Tolerated Well Tolerated Well Tolerated Well -Debridement - Subq, 1st 20sq cm No No Yes #18 left ankle -Time 15:30 15:54 15:32 -Correct Patient Yes Yes Yes -Correct Side, Site, Position Yes Yes Yes -Correct Procedure Yes Yes Yes -Procedure Performed Yes Yes Yes -Type of Procedure Debridement Debridement Debridement -Clinical Debridement Subcutaneous Subcutaneous Subcutaneous -Tissue Removed Subcutaneous Subcutaneous Subcutaneous -Post Debridement (cm) - Length 2.8 1.0 1.0 -Post Debridement (cm) - Width 3.0 1.5 1.0 -Post Debridement (cm) - Depth 0.1 0.1 0.1 -Total Square (Post) (cm) 8.40 1.50 1.00 -Area of Debridement (cm) - Length 2.8 1.0 1.0 -Area of Debridement (cm) - Width 3.0 1.5 1.0 -Total Square (Area) (cm) 8.40 1.50 1.00 -Tunneling No No No -Undermining/Tunneling No No No -Circular Undermining No No No -Wound/Ulcer Outcome Not Healed Not Healed Not Healed -Ulcer Cleansing Rinsed/ Rinsed/ Rinsed/ Irrigated with Irrigated with Irrigated with Saline Saline Saline -Foul Odor after Cleansing No No No -Bioengineered Tissue No No No -Bleeding Controlled with Pressure Pressure Pressure -Offloading No No No -Treatment Response Procedure Procedure Tolerated Well Tolerated Well -Debridement - Subq, 1st 20sq cm No No No #17 left great toe cluster -Time 15:30 15:54 15:33 -Correct Patient Yes Yes Yes -Correct Side, Site, Position Yes Yes Yes -Correct Procedure Yes Yes Yes -Procedure Performed Yes Yes Yes -Type of Procedure Debridement Debridement Debridement -Clinical Debridement Subcutaneous Subcutaneous Subcutaneous -Tissue Removed Subcutaneous Subcutaneous Subcutaneous -Post Debridement (cm) - Length 6.0 6.0 6.0 -Post Debridement (cm) - Width 2.0 1.5 0.8 -Post Debridement (cm) - Depth 0.1 0.2 0.2 -Total Square (Post) (cm) 12.00 9.00 4.80 -Area of Debridement (cm) - Length 6.0 6.0 6.0 -Area of Debridement (cm) - Width 2.0 1.5 0.8 -Total Square (Area) (cm) 12.00 9.00 4.80 -Tunneling No No No -Undermining/Tunneling No No No -Circular Undermining No No No -Wound/Ulcer Outcome Not Healed Not Healed Not Healed -Ulcer Cleansing Rinsed/ Rinsed/ Rinsed/ Irrigated with Irrigated with Irrigated with Saline Saline Saline -Foul Odor after Cleansing No No No -Bioengineered Tissue No Yes Yes -Type of Bioengineered Tissue PuraPly AM PuraPly AM -Expiration Date 05/30/23 05/30/23 -Product Lot Number [id number] -Percent Used 100 100 -Lot number of Saline Used [id number] -Bleeding Controlled with Pressure Pressure Pressure -Offloading No No No -Treatment Response Procedure Procedure Procedure Tolerated Well Tolerated Well Tolerated Well -Debridement - Subq, 1st 20sq cm No No No -Apply Skin Sub - 1st 25 sq cm - Feet 1 1 -NuShield (per sq cm) -PuraPly AM (per sq cm) 12 12 #16 right third toe -Time 17:13 15:55 -Correct Patient Yes Yes -Correct Side, Site, Position Yes Yes -Correct Procedure Yes Yes -Procedure Performed Yes No -Type of Procedure Debridement -Clinical Debridement Subcutaneous -Tissue Removed Subcutaneous -Post Debridement (cm) - Length 0.1 0 -Post Debridement (cm) - Width 0.1 0 -Post Debridement (cm) - Depth 0.1 0 -Total Square (Post) (cm) 0.01 0 -Area of Debridement (cm) - Length 0.1 -Area of Debridement (cm) - Width 0.1 -Total Square (Area) (cm) 0.01 -Tunneling No -Undermining/Tunneling No -Circular Undermining No -Wound/Ulcer Outcome Not Healed Healed- Epithelialized -Ulcer Cleansing Rinsed/ Irrigated with Saline -Foul Odor after Cleansing No -Bioengineered Tissue No -Bleeding Controlled with Pressure -Offloading No -Treatment Response Procedure Tolerated Well -Debridement - Subq, 1st 20sq cm No #15 right second toe -Time 15:30 16:03 15:35 -Correct Patient Yes Yes Yes -Correct Side, Site, Position Yes Yes Yes -Correct Procedure Yes Yes Yes -Procedure Performed Yes Yes No -Type of Procedure Debridement Debridement -Clinical Debridement Subcutaneous Subcutaneous -Tissue Removed Subcutaneous Subcutaneous -Post Debridement (cm) - Length 1.0 1 0 -Post Debridement (cm) - Width 0.5 0.5 0 -Post Debridement (cm) - Depth 0.1 0.2 0 -Total Square (Post) (cm) 0.50 0.5 0 -Area of Debridement (cm) - Length 1.0 1 -Area of Debridement (cm) - Width 0.5 0.5 -Total Square (Area) (cm) 0.50 0.5 -Tunneling No -Undermining/Tunneling No No -Circular Undermining No No -Wound/Ulcer Outcome Not Healed Not Healed Healed- Epithelialized -Ulcer Cleansing Rinsed/ Rinsed/ Irrigated with Irrigated with Saline Saline -Foul Odor after Cleansing No No -Bioengineered Tissue No No -Bleeding Controlled with Pressure Pressure -Offloading No No -Treatment Response Procedure Tolerated Well -Debridement - Subq, 1st 20sq cm No No #14right great toe -Time 15:30 16:05 15:35 -Correct Patient Yes Yes Yes -Correct Side, Site, Position Yes Yes Yes -Correct Procedure Yes Yes Yes -Procedure Performed Yes Yes Yes -Type of Procedure Debridement Debridement Debridement -Clinical Debridement Subcutaneous Subcutaneous Subcutaneous -Tissue Removed Subcutaneous Subcutaneous Subcutaneous -Post Debridement (cm) - Length 2.5 2.0 2.0 -Post Debridement (cm) - Width 2.0 1.5 0.5 -Post Debridement (cm) - Depth 0.2 0.2 0.1 -Total Square (Post) (cm) 5.00 3.00 1.00 -Area of Debridement (cm) - Length 2.5 2.0 2.0 -Area of Debridement (cm) - Width 2.0 1.5 0.5 -Total Square (Area) (cm) 5.00 3.00 1.00 -Tunneling No No No -Undermining/Tunneling No No No -Circular Undermining No No No -Wound/Ulcer Outcome Not Healed Not Healed Not Healed -Ulcer Cleansing Rinsed/ Rinsed/ Rinsed/ Irrigated with Irrigated with Irrigated with Saline Saline Saline -Foul Odor after Cleansing No No No -Bioengineered Tissue No No No -Bleeding Controlled with Pressure Pressure Pressure -Offloading No No No -Treatment Response Procedure Procedure Procedure Tolerated Well Tolerated Well Tolerated Well -Debridement - Subq, 1st 20sq cm No No No Pain Scale: 0-10 Numeric Is Patient Pain Free? Yes Yes Yes 04/20/21 15:27 Wound Center Nurse 2 #21right upper leg cluster -Time -Correct Patient -Correct Side, Site, Position -Correct Procedure -Procedure Performed -Type of Procedure -Clinical Debridement -Tissue Removed -Post Debridement (cm) - Length -Post Debridement (cm) - Width -Post Debridement (cm) - Depth -Total Square (Post) (cm) -Area of Debridement (cm) - Length -Area of Debridement (cm) - Width -Total Square (Area) (cm) -Tunneling -Undermining/Tunneling -Circular Undermining -Wound/Ulcer Outcome -Ulcer Cleansing -Foul Odor after Cleansing -Bioengineered Tissue -Bleeding Controlled with -Offloading -Treatment Response -Debridement - Subq, 1st 20sq cm #20 left lower leg cluster -Time -Correct Patient -Correct Side, Site, Position -Correct Procedure -Procedure Performed -Type of Procedure -Clinical Debridement -Tissue Removed -Post Debridement (cm) - Length -Post Debridement (cm) - Width -Post Debridement (cm) - Depth -Total Square (Post) (cm) -Area of Debridement (cm) - Length -Area of Debridement (cm) - Width -Total Square (Area) (cm) -Tunneling -Undermining/Tunneling -Circular Undermining -Wound/Ulcer Outcome -Ulcer Cleansing -Foul Odor after Cleansing -Bioengineered Tissue -Bleeding Controlled with -Offloading -Treatment Response -Debridement - Subq, 1st 20sq cm -Debridement, SubQ, ea addt'l 20sq cm or part thereof #19 right lower leg cluster -Time 15:27 -Correct Patient Yes -Correct Side, Site, Position Yes -Correct Procedure Yes -Procedure Performed Yes -Type of Procedure Debridement -Clinical Debridement Subcutaneous -Tissue Removed Subcutaneous -Post Debridement (cm) - Length 0.5 -Post Debridement (cm) - Width 1.5 -Post Debridement (cm) - Depth 0.2 -Total Square (Post) (cm) 0.75 -Area of Debridement (cm) - Length 0.5 -Area of Debridement (cm) - Width 1.5 -Total Square (Area) (cm) 0.75 -Tunneling No -Undermining/Tunneling No -Circular Undermining No -Wound/Ulcer Outcome Not Healed -Ulcer Cleansing Rinsed/ Irrigated with Saline -Foul Odor after Cleansing No -Bioengineered Tissue No -Bleeding Controlled with Pressure -Offloading No -Treatment Response Procedure Tolerated Well -Debridement - Subq, 1st 20sq cm Yes #18 left ankle -Time 15:28 -Correct Patient Yes -Correct Side, Site, Position Yes -Correct Procedure Yes -Procedure Performed Yes -Type of Procedure Debridement -Clinical Debridement Subcutaneous -Tissue Removed Subcutaneous -Post Debridement (cm) - Length 0.9 -Post Debridement (cm) - Width 0.9 -Post Debridement (cm) - Depth 0.2 -Total Square (Post) (cm) 0.81 -Area of Debridement (cm) - Length 0.9 -Area of Debridement (cm) - Width 0.9 -Total Square (Area) (cm) 0.81 -Tunneling No -Undermining/Tunneling No -Circular Undermining No -Wound/Ulcer Outcome Not Healed -Ulcer Cleansing Rinsed/ Irrigated with Saline -Foul Odor after Cleansing No -Bioengineered Tissue No -Bleeding Controlled with Pressure -Offloading No -Treatment Response Procedure Tolerated Well -Debridement - Subq, 1st 20sq cm No #17 left great toe cluster -Time 15:28 -Correct Patient Yes -Correct Side, Site, Position Yes -Correct Procedure Yes -Procedure Performed Yes -Type of Procedure Debridement -Clinical Debridement Subcutaneous -Tissue Removed Subcutaneous -Post Debridement (cm) - Length 6.8 -Post Debridement (cm) - Width 0.6 -Post Debridement (cm) - Depth 0.2 -Total Square (Post) (cm) 4.08 -Area of Debridement (cm) - Length 6.8 -Area of Debridement (cm) - Width 0.6 -Total Square (Area) (cm) 4.08 -Tunneling No -Undermining/Tunneling No -Circular Undermining No -Wound/Ulcer Outcome Not Healed -Ulcer Cleansing Rinsed/ Irrigated with Saline -Foul Odor after Cleansing No -Bioengineered Tissue Yes -Type of Bioengineered Tissue NuShield -Expiration Date 05/13/24 -Product Lot Number [id number] -Percent Used 100 -Lot number of Saline Used [id number] -Bleeding Controlled with Pressure -Offloading No -Treatment Response Procedure Tolerated Well -Debridement - Subq, 1st 20sq cm No -Apply Skin Sub - 1st 25 sq cm - Feet 1 -NuShield (per sq cm) 6 -PuraPly AM (per sq cm) #16 right third toe -Time -Correct Patient -Correct Side, Site, Position -Correct Procedure -Procedure Performed -Type of Procedure -Clinical Debridement -Tissue Removed -Post Debridement (cm) - Length -Post Debridement (cm) - Width -Post Debridement (cm) - Depth -Total Square (Post) (cm) -Area of Debridement (cm) - Length -Area of Debridement (cm) - Width -Total Square (Area) (cm) -Tunneling -Undermining/Tunneling -Circular Undermining -Wound/Ulcer Outcome -Ulcer Cleansing -Foul Odor after Cleansing -Bioengineered Tissue -Bleeding Controlled with -Offloading -Treatment Response -Debridement - Subq, 1st 20sq cm #15 right second toe -Time -Correct Patient -Correct Side, Site, Position -Correct Procedure -Procedure Performed -Type of Procedure -Clinical Debridement -Tissue Removed -Post Debridement (cm) - Length -Post Debridement (cm) - Width -Post Debridement (cm) - Depth -Total Square (Post) (cm) -Area of Debridement (cm) - Length -Area of Debridement (cm) - Width -Total Square (Area) (cm) -Tunneling -Undermining/Tunneling -Circular Undermining -Wound/Ulcer Outcome -Ulcer Cleansing -Foul Odor after Cleansing -Bioengineered Tissue -Bleeding Controlled with -Offloading -Treatment Response -Debridement - Subq, 1st 20sq cm #14right great toe -Time 15:28 -Correct Patient Yes -Correct Side, Site, Position Yes -Correct Procedure Yes -Procedure Performed Yes -Type of Procedure Debridement -Clinical Debridement Subcutaneous -Tissue Removed Subcutaneous -Post Debridement (cm) - Length 0.5 -Post Debridement (cm) - Width 0.4 -Post Debridement (cm) - Depth 0.1 -Total Square (Post) (cm) 0.20 -Area of Debridement (cm) - Length 0.5 -Area of Debridement (cm) - Width 0.4 -Total Square (Area) (cm) 0.20 -Tunneling No -Undermining/Tunneling No -Circular Undermining No -Wound/Ulcer Outcome Not Healed -Ulcer Cleansing Rinsed/ Irrigated with Saline -Foul Odor after Cleansing No -Bioengineered Tissue No -Bleeding Controlled with Pressure -Offloading No -Treatment Response Procedure Tolerated Well -Debridement - Subq, 1st 20sq cm No Pain Scale: 0-10 Numeric Is Patient Pain Free? Yes WC - Nurse 3 - General Ulcer D/C NN Start: 03/30/21 15:36 Freq: Status: Active Protocol: Activity Type Activity Date Activity User E-Sign Co-Sign Detail Recorded Client Recorded Date Recorded By Document 03/30/21 16:15 AK [id number] 03/30/21 16:32 AK Document 04/07/21 07:27 PL [id number] 04/07/21 07:28 PL Document 04/13/21 15:55 DL [id number] 04/13/21 15:57 DL Document 04/20/21 15:45 MW [id number] 04/20/21 15:47 MW Document 04/20/21 16:14 AK [id number] 04/20/21 16:16 AK Edit Result 04/20/21 16:14 AK (1) [id number] 04/21/21 07:17 PL (1) Bilateral - Multi-Layered Wrap Application => Unna Boot - => Bilateral ($) - Unna Boots (Bilat) ($) => 2 03/30/21 04/07/21 04/13/21 16:15 07:27 15:55 Vital Signs Temperature (97.8 F-99.1 F) 96.9 F L Temperature Source Temporal Pulse Rate (60-100) 69 Pulse Location Monitor Blood Pressure (90/60-120/80) 116/60 Blood Pressure Mean (mm Hg) 78 Source Monitor Comment Pain Scale: 0-10 Numeric Is Patient Pain Free? Yes Teaching: Wound Center Dressing Your Wound -Person Taught -Teaching Method -Response to teaching Wound Care Nurse 3 #21right upper leg cluster -Ulcer Cleansing Rinsed/ Irrigated with Saline -Primary Dressing Applied Mepilex Border, NonAdherent Contact Layer -Mepilex Border 2 #20 left lower leg cluster -Ulcer Cleansing Rinsed/ Irrigated with Saline -Foul Odor after Cleansing No -Negative Pressure Wound Therapy N/A -Primary Dressing Applied Silvercel -Silvercel 1 #19 right lower leg cluster -Ulcer Cleansing Rinsed/ Irrigated with Saline -Primary Dressing Applied Silvercel -Other Dressing Unna boot -Primary Dressing Covered/Secured with -Other Covering -Aquacel Extra -Silvercel 0 #18 left ankle -Ulcer Cleansing Rinsed/ Rinsed/ Irrigated with Irrigated with Saline Saline -Foul Odor after Cleansing No No -Negative Pressure Wound Therapy N/A -Primary Dressing Applied Silvercel -Other Dressing unna boot -Primary Dressing Covered/Secured with -Other Covering -Silvercel 0 #17 left great toe cluster -Ulcer Cleansing Rinsed/ Irrigated with Saline -Foul Odor after Cleansing No No -Negative Pressure Wound Therapy N/A -Primary Dressing Applied Silvercel -Other Dressing PuraPly -Primary Dressing Covered/Secured with Dry Gauze, Secured with Tape -Other Covering -Silvercel 0 #16 right third toe -Ulcer Cleansing Rinsed/ Irrigated with Saline -Foul Odor after Cleansing No -Negative Pressure Wound Therapy N/A -Primary Dressing Applied Silvercel -Silvercel 0 #15 right second toe -Ulcer Cleansing Rinsed/ Irrigated with Saline -Foul Odor after Cleansing No -Negative Pressure Wound Therapy N/A -Primary Dressing Applied Silvercel -Silvercel 0 #14right great toe -Ulcer Cleansing Rinsed/ Irrigated with Saline -Foul Odor after Cleansing No No -Primary Dressing Applied Silvercel -Other Dressing PuraPly -Primary Dressing Covered/Secured with Dry Gauze, Secured with Tape -Other Covering -Silvercel 0 Bilateral -Lotion applied to leg before compression wrap -Multi-Layered Wrap Application Unna Boot - Unna Boot - Bilateral ($) Bilateral ($) -Compression Wrap -Unna Boots (Bilat) ($) 2 2 Left -Multi-Layered Wrap Application Unna Boot - Bilateral ($) -Unna Boots (Bilat) ($) 2 Treatment Response Procedure Tolerated Well WC - Visit Discharge Discharge Condition Stable Ambulatory Status Wheelchair Transportation shady lawn transport Accompanied by Medication Reconcilliation completed & provided to patient/care provider Clinical Summary of Care Provided Facility Type Detention Care Facility Orders Sent Yes 04/20/21 04/20/21 15:45 16:14 Vital Signs Temperature (97.8 F-99.1 F) Temperature Source Pulse Rate (60-100) Pulse Location Blood Pressure (90/60-120/80) Blood Pressure Mean (mm Hg) Source Comment aquacel extra was put onto left buttock - verbal order from Saqib- Pain Scale: 0-10 Numeric Is Patient Pain Free? Yes Teaching: Wound Center Dressing Your Wound -Person Taught Patient -Teaching Method Discussion -Response to teaching Verbalize understanding Wound Care Nurse 3 #21right upper leg cluster -Ulcer Cleansing -Primary Dressing Applied -Mepilex Border #20 left lower leg cluster -Ulcer Cleansing -Foul Odor after Cleansing -Negative Pressure Wound Therapy -Primary Dressing Applied -Silvercel #19 right lower leg cluster -Ulcer Cleansing Not Cleansed -Primary Dressing Applied Aquacel Extra -Other Dressing -Primary Dressing Covered/Secured with Dry Gauze Secured with Tape -Other Covering unna -Aquacel Extra 1 -Silvercel #18 left ankle -Ulcer Cleansing Not Cleansed -Foul Odor after Cleansing -Negative Pressure Wound Therapy -Primary Dressing Applied -Other Dressing -Primary Dressing Covered/Secured with Dry Gauze -Other Covering unna -Silvercel #17 left great toe cluster -Ulcer Cleansing Not Cleansed -Foul Odor after Cleansing -Negative Pressure Wound Therapy -Primary Dressing Applied -Other Dressing -Primary Dressing Covered/Secured with Dry Gauze -Other Covering unna -Silvercel #16 right third toe -Ulcer Cleansing -Foul Odor after Cleansing -Negative Pressure Wound Therapy -Primary Dressing Applied -Silvercel #15 right second toe -Ulcer Cleansing -Foul Odor after Cleansing -Negative Pressure Wound Therapy -Primary Dressing Applied -Silvercel #14right great toe -Ulcer Cleansing Not Cleansed -Foul Odor after Cleansing -Primary Dressing Applied -Other Dressing -Primary Dressing Covered/Secured with Dry Gauze -Other Covering unna -Silvercel Bilateral -Lotion applied to leg before No compression wrap -Multi-Layered Wrap Application Unna Boot - Bilateral ($) -Compression Wrap Unna Boot ($) ( single) -Unna Boots (Bilat) ($) 2 Left -Multi-Layered Wrap Application -Unna Boots (Bilat) ($) Treatment Response Procedure Tolerated Well WC - Visit Discharge Discharge Condition Stable Ambulatory Status Wheelchair Transportation transportation Accompanied by self Medication Reconcilliation completed & No provided to patient/care provider Clinical Summary of Care Provided Yes Facility Type Orders Sent Additional Wound Wound debrided: Left great toe, right great toe DFU's Wound Grade/Stage: Stephens 2 Type of Debridement: Excisional debridement Anesthesia Used: 5% Lidocaine Gel Depth: Down to and including healthy tissue and in the subcutaneous layer Percentage of wound debrided: 100 Instrument Used: 5mm curette Tissue Removed: Slough and devitalized tissue Severity: Fat Layer Exposed Amount of bleeding with debridement: Mild Bleeding Controlled with: Pressure Patient tolerated procedure: Patient tolerated procedure well Additional Wound Wound debrided: Venous leg ulcers right lower extremities, left heel ulcer Laterality: Left Type of Debridement: Excisional debridement Anesthesia Used: 5% Lidocaine Gel Depth: in the subcutaneous layer Percentage of wound debrided: 100 Instrument Used: 5mm curette Tissue Removed: Slough and devitalized tissue Severity: Fat Layer Exposed Amount of bleeding with debridement: Mild Bleeding Controlled with: Pressure Assessment/Plan Assessment/Plan (1) Venous ulcer of right lower extremity with varicose veins: CODE(S): I83.019 - Varicose veins of right lower extremity with ulcer of unspecified site; L97.919 - Non-pressure chronic ulcer of unspecified part of right lower leg with unspecified severity (2) Venous ulcer of left lower extremity with varicose veins: CODE(S): I83.029 - Varicose veins of left lower extremity with ulcer of unspecified site; L97.929 - Non-pressure chronic ulcer of unspecified part of left lower leg with unspecified severity (3) Diabetic ulcer of right foot: CODE(S): E11.621 - Type 2 diabetes mellitus with foot ulcer; L97.519 - Non-pressure chronic ulcer of other part of right foot with unspecified severity (4) Diabetic ulcer of left foot: CODE(S): E11.621 - Type 2 diabetes mellitus with foot ulcer; L97.529 - Non-pressure chronic ulcer of other part of left foot with unspecified severity (5) Venous stasis ulcer of right thigh with fat layer exposed: CODE(S): I83.011 - Varicose veins of right lower extremity with ulcer of thigh; L97.112 - Non-pressure chronic ulcer of right thigh with fat layer exposed (6) Bilateral lower extremity edema: CODE(S): R60.0 - Localized edema (7) Venous insufficiency: CODE(S): I87.2 - Venous insufficiency (chronic) (peripheral) (8) Chronic acquired lymphedema: CODE(S): I89.0 - Lymphedema, not elsewhere classified (9) Elephantiasis: CODE(S): I89.0 - Lymphedema, not elsewhere classified (10) Type 2 diabetes mellitus: CODE(S): E11.9 - Type 2 diabetes mellitus without complications (11) Chronic back pain: CODE(S): M54.9 - Dorsalgia, unspecified; G89.29 - Other chronic pain (12) Benign hypertension: CODE(S): I10 - Essential (primary) hypertension PLAN: Debridement performed today in clinic as annotated above. suzanna and bilateral Unna boots applied. Nushield # 1 product #3 was utilized to the left great toe DFU. 100% of the product was utilized and covered with wound veil and Steri-Strips for securement. Thin layer of hydrogel applied. At home wound-care instructions: Suzanna and bilateral Unna boots applied today and to be changed twice a week, she will apply triple antibiotic ointment, Adaptic, and Maspeth SAP foam to the right thigh ulcer. Compression: Bilateral Unna boots with lymphedema pumps to be utilized Off-loading: The patient was instructed to avoid pressure and friction on the affected areas. Reposition every 2 hours at minimum. Avoid prolonged standing and/or dangling of legs. When seated, feet should be elevated at chest level. Frequent ambulation is encouraged. Diet: Patient encouraged to increase protein intake while taking caution to avoid high carbohydrate and/or sugar intake. Patient is a non-smoker Labs/cultures/imaging: Cultures ordered and collected previously and showed staph aureus and patient was treated with doxycycline which she is tolerating well. Routine baseline lab work ordered and pending. Vascular studies ordered and pending. Given the patient's multiple dermatologic complaints, will refer her to dermatology. She is requesting to go to [facility]. Given the delayed wound healing and fact that patient has been under wound treatment plan since September 2020 at her assisted living facility and has failed standard wound care for greater than 4 weeks will apply for an advanced skin vivar bstitute. Follow-up: Return to clinic in 1 week for re-evaluation. Return sooner or report to the emergency room should symptoms worsen, or new symptoms arise. This note was generated with interspireSubmit dictation software. It may contain incorrect words, spelling, and punctuation that were not noted in checking the note before signing. I have spent 65 minutes today reviewing labs, records, and history. Time includes coordinating care, interpretation of tests, and counseling the patient/family. This also includes time I spent with the patient for exam, treatment plan, and education as well as documenting clinical information in the electronic health record.
== END 2021-04-27 23:59 ==
LOC: WC 14:30
PROVIDERS: PCP Family Medicine; Visit Provider Nurse Practitioner Family
DX: E11.621 Type 2 diabetes mellitus with foot ulcer (principal); L97.512 Non-pressure chronic ulcer of other part of right foot with fat layer exposed; I83.024 Varicose veins of left lower extremity with ulcer of heel and midfoot; L97.422 Non-pressure chronic ulcer of left heel and midfoot with fat layer exposed; I83.011 Varicose veins of right lower extremity with ulcer of thigh; L97.112 Non-pressure chronic ulcer of right thigh with fat layer exposed; I89.0 Lymphedema, not elsewhere classified; I10 Essential (primary) hypertension; M54.9 Dorsalgia, unspecified; G89.29 Other chronic pain; G47.33 Obstructive sleep apnea (adult) (pediatric); E66.01 Morbid (severe) obesity due to excess calories; Z79.4 Long term (current) use of insulin; Z79.51 Long term (current) use of inhaled steroids; Z79.899 Other long term (current) drug therapy
CPT/HCPCS: 11042; 11045; 15275; 29580; Q4160; Q4196

== ENCOUNTER → 2021-07-25 05:30 | Outpatient (REF) | payer MEDICARE, MEDICAID, SELFPAY | LOC: OLS.SW1020 05:30 | PROVIDERS: PCP Family Medicine; Visit Provider Internal Medicine | DX: U07.1 COVID-19 (principal) | CPT/HCPCS: 87635; U0003; U0005 ==

== ENCOUNTER → 2021-08-30 | Outpatient (REF) | payer SELFPAY ==
[2021-08-30 10:27] LABS: Anion Gap 8 (5-15); BUN 34 mg/dL (7-18); BUN/Creat Ratio 42.8 RATIO (10-20); Calcium,Total 8.9 mg/dL (8.5-10.1); Chloride 99 mmol/L (98-107); Creatinine, Serum 0.79 mg/dL (0.55-1.02); EST Glomerular Filtration Rate 75 mL/min (>60); Est Glom Filt Rate - Afr Amer 91 mL/min (>60); Glucose 77 mg/dL (74-106); Potassium 4.8 mmol/L (3.5-5.1); Sodium Level 136 mmol/L (136-145)
== END | disposition home or self-care (01) ==
LOC: OLS.SW1020 05:00
PROVIDERS: PCP Family Medicine; Visit Provider Internal Medicine
DX: R41.82 Altered mental status, unspecified (principal)
CPT/HCPCS: 36415; 80048; 86140

== ENCOUNTER → 2021-09-08 20:00 | Outpatient (REF) | payer MEDICARE, MEDICAID, SELFPAY ==
[2021-09-08 20:30] LABS: Hematocrit 38.5 % (37-47); Hemoglobin 12.7 g/dL (12.0-15.0); Mean Corpuscular Hgb 28.4 pg (27.0-32.0); Mean Corpuscular Volume 86.1 fL (81-99); Mean Platelet Vol. 9.9 fl (6.2-12.0); Platelet Count 209 K/mm3 (150-450); RBC Distribution Width SD 55.8 fl (35.1-43.9); Red Blood Count 4.47 M/mm3 (4.2-5.4); White Blood Count 15.9 K/mm3 (4.4-11.0)
[2021-09-08 20:40] LABS: Anion Gap 7 (5-15); BUN 33 mg/dL (7-18); BUN/Creat Ratio 31.1 RATIO (10-20); Calcium,Total 8.9 mg/dL (8.5-10.1); Chloride 102 mmol/L (98-107); Creatinine, Serum 1.06 mg/dL (0.55-1.02); Glucose 137 mg/dL (74-106); Potassium 4.4 mmol/L (3.5-5.1); Sodium Level 138 mmol/L (136-145)
== END ==
LOC: OLS.SW1020 20:00
PROVIDERS: Visit Provider Internal Medicine
DX: R41.82 Altered mental status, unspecified (principal)
CPT/HCPCS: 36415; 80048; 85027

== ENCOUNTER 2021-09-09 00:53 | Inpatient (IN) | payer MEDICARE, MEDICAID, SELFPAY ==
[2021-09-09] VITALS (14 sets, daily range): BP systolic 104–125; BP diastolic 42–65; PULSE 78–111; RESP 12–74; TEMP 36.6–37.3; O2SAT 85–98; BMI 42.6; BMI 42.2
--- NOTE | 2021-09-09 01:16 | EKG12_ITS ---
Test Reason : ALT LOC Blood Pressure : / mmHG Vent. Rate : 095 BPM Atrial Rate : 095 BPM P-R Int : 206 ms QRS Dur : 096 ms QT Int : 376 ms P-R-T Axes : 056 017 045 degrees QTc Int : 472 ms Normal sinus rhythm Low voltage QRS Poor R wave progression Confirmed by RANDALL SNYDER, MARIAM ([id number]), research editor AMIRA SOLITARIO ([id number]) on 09/12/2021 9:50:24 AM Referred By: PL Confirmed By:MARIAM PEREIRA MD
--- NOTE | 2021-09-09 01:16 | CT_ITS ---
EXAM: CT HEAD WITHOUT INTRAVENOUS CONTRAST CLINICAL INDICATION: headache TECHNIQUE: Multiple axial images were obtained of the head without intravenous contrast. CTDIvol = ( 44.99 ) mGy, DLP = ( 880.47 ) mGycm This CT exam was performed using one or more of the following dose reduction techniques: automated exposure control, adjustment of the mA and/or kV according to patient size, and/or use of iterative reconstruction technique. This report was created using codetag report generation technology. COMPARISON: None. FINDINGS: BRAIN AND EXTRA-AXIAL SPACES: Unremarkable. No intra- or extra-axial hemorrhage. No evidence of acute infarct. No intracranial mass or mass effect. There is preservation of the marmolejo/white matter interface. Posterior fossa structures are unremarkable. Ventricles are appropriate for age. No hydrocephalus. Basal cisterns are patent. BONES/JOINTS: Unremarkable. No discrete lytic or blastic abnormalities. SINUSES: Small air-fluid level involving the right maxillary sinus. Paranasal sinuses are clear. MASTOID AIR CELLS: Mastoid air cells are clear. ORBITS: Visualized globes, extraocular muscles, optic nerves and retrobulbar fat appear unremarkable. CT/Brain/Head without Contrast IMPRESSION: No acute findings in the head/brain. Electronically Signed: Cam White MD at 2:13 EST ,
--- NOTE | 2021-09-09 01:18 | RAD_ITS ---
EXAM: XR CHEST, 1 VIEW CLINICAL INDICATION: cough TECHNIQUE: Frontal view of the chest. This report was created using SCADA Access report generation technology. COMPARISON: None. FINDINGS: LUNGS AND PLEURAL SPACES: Bilateral lower lobe and left upper lobe heterogeneous ill-defined airspace disease suspected. No pneumothorax. No effusion. HEART: Unremarkable. Cardiac silhouette not enlarged. MEDIASTINUM: Central airways and mediastinal contour are unremarkable. BONES/JOINTS: Degenerative changes of the spine. SOFT TISSUES: Unremarkable. RAD/Chest 1 View IMPRESSION: Bilateral pneumonia suspected. Electronically Signed: Cam White MD at 2:29 EST ,
--- NOTE | 2021-09-09 01:23 | EDS_ITS ---
HPI History of Present Illness Chief Complaint: Mental Status Change Informant: patient Narrative Narrative: My understanding is that the patient was sent in by group home because she has periods where she is more alert and periods where she has a less alert. I do not know how long this has been going on. Patient states that she did tell them she had a mild headache earlier today. But other than that she feels at her baseline. She has chronic problems with swelling and wounds of her legs but they are not new or different. She has chronic lower back pain but is not new or different. She states she feels normal. [facility] Medical History (Updated 09/09/21 @ 03:[address] Kurt Herrera MD) Anxiety and depression Benign hypertension Chronic acquired lymphedema Chronic back pain Diabetic ulcer of left foot Diabetic ulcer of right foot HLD (hyperlipidemia) RILEY (obstructive sleep apnea) PAF (paroxysmal atrial fibrillation) RLS (restless legs syndrome) Type 2 diabetes mellitus Venous stasis ulcer of right thigh with fat layer exposed Venous ulcer of left lower extremity with varicose veins Venous ulcer of right lower extremity with varicose veins Home Medications Morphine [Morphine Ir] 50 mg PO QHS PRN PRN 02/16/14 [History Last Taken Unknown] albuterol sulfate [Proair Hfa] 1 - 2 puff INHALATION Q4H PRN PRN 02/16/14 [History Last Taken Unknown] fluticasone propion-salmeterol [Advair 250/50 Mcg Diskus] 1 puff INHALATION BID 02/16/14 [History Last Taken Unknown] fluticasone propionate 2 spray NASAL DAILY 02/16/14 [History Last Taken Unknown] oxybutynin chloride 5 mg PO DAILY 02/16/14 [History Last Taken Unknown] oxycodone-acetaminophen 1 - 2 tab PO BID 02/16/14 [History Last Taken Unknown] potassium chloride 60 meq PO BID 02/16/14 [History Last Taken Unknown] pregabalin [Lyrica] 100 mg PO TID 02/16/14 [History Last Taken Unknown] ropinirole [Requip] 0.25 mg PO QHS 02/16/14 [History Last Taken Unknown] Basaglar Kwikpen U-100 20 units MISCELLANEOUS DAILY 05/07/19 [History Last Taken Unknown] furosemide 40 mg PO DAILY 05/07/19 [History Last Taken Unknown] doxycycline monohydrate 100 mg tablet 100 mg PO BID #20 tab 03/28/21 [Rx Last Taken Unknown] atorvastatin [Lipitor] 10 mg PO DAILY 09/09/21 [History Last Taken Unknown] diltiazem HCl 360 mg PO DAILY 09/09/21 [History Last Taken Unknown] ferrous sulfate [iron] 325 mg PO DAILY 09/09/21 [History Last Taken Unknown] metformin 500 mg PO BID 09/09/21 [History Last Taken Unknown] methenamine hippurate 1 g PO BID 09/09/21 [History Last Taken Unknown] metolazone 5 mg PO MOFR 09/09/21 [History Last Taken Unknown] modafinil 200 mg PO DAILY 09/09/21 [History Last Taken Unknown] omeprazole 40 mg PO DAILY 09/09/21 [History Last Taken Unknown] rivaroxaban 2.5 mg PO QHS 09/09/21 [History Last Taken Unknown] spironolactone 50 mg PO DAILY 09/09/21 [History Last Taken Unknown] venlafaxine [Effexor] 75 mg PO DAILY 09/09/21 [History Last Taken Unknown] Allergy/AdvReac Type Severity Reaction Status Date / Time aspirin Allergy Hives Verified 09/09/21 01:12 latex Allergy Rash Verified 09/09/21 01:12 Penicillins Allergy Hives Verified 09/09/21 01:12 Sulfa (Sulfonamide Allergy Hives Verified 09/09/21 01:12 Antibiotics) Surgical History (Updated 09/09/21 @ 02:[address] Suki Gasca MD) History of hysterectomy Social History Smoking Status: Never smoker ROS ROS ED Constitutional Constitutional ED: Denies chills or fever(s) Eyes Eyes: Denies blurry vision ENT ENT ED: Reports other Details: Mild headache earlier. No longer present. ; Denies rhinorrhea or sore throat Cardiovascular Cardiovascular: Denies chest pain Respiratory/Chest Respiratory/Chest: Denies cough, dyspnea or sputum Gastrointestinal Gastrointestinal: Denies abdominal pain, diarrhea, nausea or vomiting Genitourinary Genitourinary ED: Denies dysuria Musculoskeletal Musculoskeletal: Reports back pain; Denies myalgias Integumentary Denies rash Neurologic Neurologic: Reports headache(s); Denies paresthesias or weakness Psychiatric Psychiatric: Denies depression Endocrine Endocrinology: Denies polydipsia or polyuria Allergic/Immunologic Allergic/Immunologic ED: Denies urticaria EXAM Physical Exam Const Vital Signs: 09/09/21 00:55 09/09/21 00:59 09/09/21 01:15 Temperature 97.9 F 99.1 F Temperature Source Temporal Oral Pulse Rate 103 H Respiratory Rate 19 H Blood Pressure 119/58 L Blood Pressure Mean 78 Pulse Ox 85 93 Oxygen Delivery Method Room Air Nasal Cannula Oxygen Flow Rate (L/min) 2 09/09/21 03:00 Temperature Temperature Source Pulse Rate 93 Respiratory Rate 74 H Blood Pressure 118/65 Blood Pressure Mean 82 Pulse Ox 98 Oxygen Delivery Method Room Air Oxygen Flow Rate (L/min) Positive well nourished, well developed and obese Constitutional Narrative: Patient is resting quietly. But she wakes up with just talking. She is nontoxic. General Appearance ED: well developed and NAD; Negative for cyanotic or diaphoretic Nutritional Appearance: obese HEENT Reports dry mucous membranes Mouth ED: Yes dry mucous membranes Mouth: dry mucous membranes Eyes General Eye ED: Negative for pale conjunctiva or scleral icterus Neck no JVD Chest Wall inspection of chest normal Resp normal respiratory effort and clear to auscultation bilaterally Auscultation: Negative for rales, rhonchi or wheezes Cardio regular rate, regular rhythm and no murmurs GI normal to inspection, nondistended, normoactive bowel sounds and non-tender GI Narrative: Abdomen is obese but otherwise benign. Palpation: soft Back/Spine no CVA tenderness Extremity Extremity Narrative: She has chronic venous stasis changes to both lower extremities. There are gauze wrappings on the right. I take these down. She has a slight abrasion on the right but no sign of acute infection. Neuro oriented x3 and no sensory deficits noted Neuro Narrative: Patient is awake and alert. She knows where she is and where she came from. She is oriented to year and president [employer] along with teams playing in the [employer] on Saturday. Sensorium / Orientation: alert; Negative for orientation impaired, lethargic or stuporous Psych mental status grossly normal Skin no rashes or lesions noted Skin Narrative: See leg exams as above. MDM MDM MDM Narrative Medical decision making narrative: Patient's blood work shows elevated white count. Hemoglobin is minimally low. Electrolytes show some mild elevation of BUN to creatinine. But her LFTs are all fairly elevated. This this includes total bilirubin, AST, ALT and alkaline phosphatase. Lipase is also high at 788. I went back and talked to the patient pressed on her abdomen she still not complaining really of any discomfort. However, this is a marked new change. I think we do need further imaging. I will do CT scan as I do not have ultrasound available at this time. Also, her urine shows no sign of infection. Her x-ray is read as possible early pneumonia but she is not having significant symptoms of that. She does have some hypoxia, but is normally on oxygen at night. It is also possible that this x-ray finding could be due to body habitus. We will treat with Levaquin. I added initially Flagyl because of the elevated liver function test and possible cholecystitis. Her CT scan actually is relatively unremarkable. My concern is that this is an elderly somewhat debilitated female with significant medical disease including diabetes, with high white count, new elevation of liver function test and lipase and possible infiltrative process in the lungs. Covid was negative but we will add a PCR at this time. Hospitalist is contacted. Lab Data Attestation: I reviewed the patient's lab results. Labs: Laboratory Results - last 24 hr 09/09/21 09/09/21 09/09/21 01:25 01:25 01:25 WBC 17.7 H RBC 4.07 L Hgb 11.9 L Hct 35.6 L MCV 87.5 MCH 29.2 MCHC 33.4 RDW Std Deviation 57.1 H RDW Coeff of Melissa 18.1 H Plt Count 146 L MPV 11.1 Immature Gran % (Auto) 0.600 Neut % (Auto) 90.9 H Lymph % (Auto) 2.4 L Ross % (Auto) 5.8 Eos % (Auto) 0.1 Baso % (Auto) 0.2 Absolute Neuts (auto) 16.1 H Absolute Lymphs (auto) 0.43 L Nucleated RBC % 0 Differential Comment SCANNED Sodium 136 Potassium 4.9 Chloride 105 Carbon Dioxide 26.0 Anion Gap 5 BUN 34 H Creatinine 1.00 Estim Creat Clear Calc 39.63 Est GFR (MDRD) Af Amer 70 Est GFR (MDRD) Non-Af 58 L BUN/Creatinine Ratio 34.0 H Glucose 211 H Calcium 8.5 Total Bilirubin 3.70 H AST 252 H ALT 214 H Alkaline Phosphatase 368 H Troponin I High Sens 4 Total Protein 6.4 Albumin 2.6 L Globulin 3.8 Albumin/Globulin Ratio 0.7 L Lipase 788 H Urine Color Urine Clarity Urine pH Ur Specific [place] Urine Protein Urine Glucose (UA) Urine Ketones Urine Occult Blood Urine Nitrite Urine Bilirubin Urine Urobilinogen Ur Leukocyte Esterase Urine RBC Urine WBC Ur Squamous Epith Cells Urine Bacteria Urine Mucus 09/09/21 01:46 WBC RBC Hgb Hct MCV MCH MCHC RDW Std Deviation RDW Coeff of Melissa Plt Count MPV Immature Gran % (Auto) Neut % (Auto) Lymph % (Auto) Ross % (Auto) Eos % (Auto) Baso % (Auto) Absolute Neuts (auto) Absolute Lymphs (auto) Nucleated RBC % Differential Comment Sodium Potassium Chloride Carbon Dioxide Anion Gap BUN Creatinine Estim Creat Clear Calc Est GFR (MDRD) Af Amer Est GFR (MDRD) Non-Af BUN/Creatinine Ratio Glucose Calcium Total Bilirubin AST ALT Alkaline Phosphatase Troponin I High Sens Total Protein Albumin Globulin Albumin/Globulin Ratio Lipase Urine Color Yellow Urine Clarity Sl. Cloudy Urine pH 6.5 Ur Specific [place] 1.010 Urine Protein 15 H Urine Glucose (UA) Normal Urine Ketones Negative Urine Occult Blood Negative Urine Nitrite Negative Urine Bilirubin 1 H Urine Urobilinogen 8 H Ur Leukocyte Esterase 100 H Urine RBC 0 SEEN Urine WBC 0-5 SEEN Ur Squamous Epith Cells 0-5 SEEN Urine Bacteria 2+ Urine Mucus 0 SEEN Radiography Diagnostic Testing: Clinical Impression(s) from Imaging Studies Brain CT 09/09/21 01:16 IMPRESSION: No acute findings in the head/brain. Electronically Signed: Cam White MD at 2:13 EST , Chest X-Ray 09/09/21 01:18 IMPRESSION: Bilateral pneumonia suspected. Electronically Signed: Cam White MD at 2:29 EST , Abdomen/Pelvis CT 09/09/21 02:03 IMPRESSION: 5 mm nonobstructing calyceal calculus at the medial aspect of the left upper renal pole. No hydronephrosis. Electronically Signed: Cam White MD at 3:18 EST , EKG Initial EKG: Comments: EKG done due to generalized weakness read by me shows sinus rhythm with a rate of 95. There is some baseline variation. However, no ectopy. Nonspecific ST and T wave change but no sign of infarct or ischemia. TX interval is slightly long at 206 ms and is consistent with a slight first- degree AV block. QRS duration is normal. QTc is minimally toward the longer and at 472. Discharge Plan Dx/Rx/DC Orders Clinical Impression: Pneumonia, Hypoxia, Elevated liver function tests, Elevated lipase, Leukocytosis Disposition Disposition: Acute [facility]
[2021-09-09 01:29] LABS: Absolute Lymphocyte Count 0.43 X10^3/uL (0.83-4.51); Absolute Neutrophil Count 16.1 X10^3/uL (2.0-7.7); Basophil# 0.04 X10^3/uL; Basophil% 0.2 % (0-1); Eosinophil# 0.01 X10^3/uL; Eosinophils% 0.1 % (0-5); Hematocrit 35.6 % (37-47); Hemoglobin 11.9 g/dL (12.0-15.0); Lymphocyte # 0.43 X10^3/ul (0.83-4.51); Lymphocyte % 2.4 % (19-41); Mean Corp Hgb Conc 33.4 g/dL (32-36); Mean Corpuscular Hgb 29.2 pg (27.0-32.0); Mean Corpuscular Volume 87.5 fL (81-99); Mean Platelet Vol. 11.1 fl (6.2-12.0); Monocyte# 1.02 X10^3/uL; Monocyte% 5.8 % (0-10); NRBC Flagged by Analyzer 0 % (0-5); Neutrophil % 90.9 % (47-70); POSITIVE DIFFERENTIAL YES; Platelet Count 146 K/mm3 (150-450); RBC Distribution Width CV 18.1 % (11.6-14.6); RBC Distribution Width SD 57.1 fl (35.1-43.9); Red Blood Count 4.07 M/mm3 (4.2-5.4); White Blood Count 17.7 K/mm3 (4.4-11.0)
[2021-09-09 01:50] LABS: Mucous, Urine 0 SEEN /hpf (<or=2+); Red Blood Cells-Urine 0 SEEN /hpf (0-5)
[2021-09-09 01:55] LABS: ALB/GLOB Ratio 0.7 RATIO (0.9-2.4); AST(SGOT) 252 U/L (15-37); Alanine Aminotransfer ALT/SGPT 214 U/L (13-56); Albumin, Serum 2.6 g/dL (3.2-5.0); Alkaline Phosphatase 368 U/L (45-117); Anion Gap 5 (5-15); BUN 34 mg/dL (7-18); Calcium,Total 8.5 mg/dL (8.5-10.1); Chloride 105 mmol/L (98-107); Differential Indicated SCAN CRITERIA MET; EST Glomerular Filtration Rate 58 mL/min (>60); Est Glom Filt Rate - Afr Amer 70 mL/min (>60); Estimated Creatinine Clearance 39.63 ml/min; Globulin 3.8 g/dL (2.2-4.2); Glucose 211 mg/dL (74-106); Potassium 4.9 mmol/L (3.5-5.1); Protein, Total 6.4 g/dL (6.4-8.2); Sodium Level 136 mmol/L (136-145); Troponin-I HS 4 pg/mL (3.0-54.0)
[2021-09-09 02:00] LABS: Color, Urine Yellow (Yellow); Glucose, Dipstick Normal (Normal); Ketone-Dipstick Negative (Negative); Leukocyte Esterase-Dipstick 100 /ul (Negative); Nitrite-Dipstick Negative (Negative); Occult Blood-Urine Negative /ul (Negative); Protein-Dipstick 15 mg/dl (Negative); Urine Clarity Sl. Cloudy (Clear); Urine Urobilinogen 8 mg/dl (Normal); Urine pH 6.5 (5.0 - 8.0)
--- NOTE | 2021-09-09 02:03 | CT_ITS ---
EXAM: CT ABDOMEN AND PELVIS WITH INTRAVENOUS CONTRAST CLINICAL INDICATION: abd pain, elevated LFT TECHNIQUE: Helically acquired images were obtained of the abdomen and pelvis with intravenous contrast. CTDIvol = ( 19.41 ) mGy, DLP = ( 2115.89 ) mGycm This CT exam was performed using one or more of the following dose reduction techniques: automated exposure control, adjustment of the mA and/or kV according to patient size, and/or use of iterative reconstruction technique. This report was created using [employer]Us report generation technology. CONTRAST: IV 100mL Isovue-300 COMPARISON: None. FINDINGS: LOWER THORAX: Unremarkable. Lung bases are clear. No cardiomegaly. No significant pericardial effusion. ABDOMEN: LIVER: Unremarkable. Homogeneous. No focal mass. GALLBLADDER AND BILE DUCTS: Unremarkable. No calcified gallstones. No gallbladder distention or wall edema. No intra- or extrahepatic biliary ductal dilation. PANCREAS: Unremarkable. No focal cystic or solid mass. SPLEEN: Unremarkable. Normal size without focal cystic or solid mass. ADRENALS: Unremarkable. No nodules. KIDNEYS AND URETERS: 5 mm obstructing calculus at the upper portion of the left right ureter. Normal renal size and position. No hydronephrosis. STOMACH AND BOWEL: Small hiatal hernia suggested. Evidence of gastroesophageal reflux disease. No stomach or bowel distention. No focal inflammatory change. PELVIS: APPENDIX: No evidence of acute appendicitis. BLADDER: Unremarkable. REPRODUCTIVE: Unremarkable as visualized. No mass. ABDOMEN and PELVIS: INTRAPERITONEAL SPACE: Unremarkable. No ascites or other fluid collection. No free air. BONES/JOINTS: Unremarkable. No suspicious lytic or blastic abnormality. SOFT TISSUES: Unremarkable. No discrete abdominal or pelvic wall hernia. VASCULATURE: Unremarkable. Abdominal aorta is non-dilated. LYMPH NODES: Unremarkable. No enlarged lymph nodes. CT/Abdomen/Pelvis W IV Cont ONLY IMPRESSION: 5 mm nonobstructing calyceal calculus at the medial aspect of the left upper renal pole. No hydronephrosis. Electronically Signed: Cam White MD at 3:18 EST ,
[2021-09-09 02:12] LABS: Urine Bilirubin Dipstick 1 mg/dL (Negative)
[2021-09-09 02:13] LABS: Squamous Epithelial Cells - UA 0-5 SEEN /hpf (5-10); White Blood Cells 0-5 SEEN /hpf (0-5)
[2021-09-09 02:14] LABS: Bacteria 2+ /hpf (None Seen)
[2021-09-09 02:25] LABS: Differential Comment SCANNED
[2021-09-09 02:32] LABS: Lipase 788 U/L (73-393)
[2021-09-09] MEDS: metroNIDAZOLE 500 MG/100 ML BAG 100 MG IV (03:21)
--- NOTE | 2021-09-09 03:34 | HP.PCM.HOS_ITS ---
HPI - General General Date of Admission: 09/09/21 Date of Service: 09/09/21 Chief Complaint: Confusion. HPI Narrative The patient is a 71 y/o F w/ PMHx: Chronic anemia/Fe deficiency, RILEY, Chronic BL LE Lymphedema, Diabetes mellitus type II w/ neuropathy, Morbid Obesity, Anxiety and Depression, GERD, HTN, HLD, RLS, PAF, COPD, Chronic pain syndrome, Chronic BL LE Diabetic foot wounds who presents to the [facility] ED on 09/09/21 with history of intermittent periods of confusion at [facility] facility which has been going on for some time with onset of mild headache on day of presentation with otherwise no significant complaints per patient with chronic wounds but she reports these are no different and unchanged chronic lower back pain however nursing facility concern for transient confusion episodes prompting ED evaluation. Patient denies any recent cough, dyspnea or increase sputum production. She denies any recent fevers or chills. Patient given history of transient intermittent confusion is not the best historian however. Work-up in the ED included T 97.9, heart rate 103, BP 119/58, respiratory rate 19, initially 85% on room air with improvement to 93% on 2 L nasal cannula, CBC with WC 17.7, hemoglobin 11.9, platelet 146 with left shift and lymphopenia, CMP with BUN/creatinine 34/1, glucose 211, total bilirubin 3.70, AST/ALT 252/214, alk phos 368, troponin 4, lipase 788, urinalysis with negative nitrite, 100 leukoc yte esterase, no urine WBCs with 2+ urine bacteria not markedly appearing, rapid COVID antigen negative, chest x-ray with bilateral lower lobe and left upper lobe heterogeneous ill-defined airspace disease suspicious for bilateral pneumonia, CT of the brain with no acute intracranial findings, CT abdomen and pelvis with IV contrast 5 mm nonobstructing calyceal calculus the medial aspect of the left upper renal pole with no hydronephrosis. In the ED patient ministered Levaquin and Flagyl. [facility] Medical History (Updated 09/09/21 @ 03:[address] Kurt Herrera MD) Anxiety and depression Benign hypertension Chronic acquired lymphedema Chronic back pain Diabetic ulcer of left foot Diabetic ulcer of right foot HLD (hyperlipidemia) RILEY (obstructive sleep apnea) PAF (paroxysmal atrial fibrillation) RLS (restless legs syndrome) Type 2 diabetes mellitus Venous stasis ulcer of right thigh with fat layer exposed Venous ulcer of left lower extremity with varicose veins Venous ulcer of right lower extremity with varicose veins Home Medications Morphine [Morphine Ir] 50 mg PO QHS PRN PRN 02/16/14 [History Last Taken Unknown] albuterol sulfate [Proair Hfa] 1 - 2 puff INHALATION Q4H PRN PRN 02/16/14 [History Last Taken Unknown] fluticasone propion-salmeterol [Advair 250/50 Mcg Diskus] 1 puff INHALATION BID 02/16/14 [History Last Taken Unknown] fluticasone propionate 2 spray NASAL DAILY 02/16/14 [History Last Taken Unknown] oxybutynin chloride 5 mg PO DAILY 02/16/14 [History Last Taken Unknown] oxycodone-acetaminophen 1 - 2 tab PO BID 02/16/14 [History Last Taken Unknown] potassium chloride 60 meq PO BID 02/16/14 [History Last Taken Unknown] pregabalin [Lyrica] 100 mg PO TID 02/16/14 [History Last Taken Unknown] ropinirole [Requip] 0.25 mg PO QHS 02/16/14 [History Last Taken Unknown] Basaglar Kwikpen U-100 20 units MISCELLANEOUS DAILY 05/07/19 [History Last Taken Unknown] furosemide 40 mg PO DAILY 05/07/19 [History Last Taken Unknown] doxycycline monohydrate 100 mg tablet 100 mg PO BID #20 tab 03/28/21 [Rx Last Taken Unknown] atorvastatin [Lipitor] 10 mg PO DAILY 09/09/21 [History Last Taken Unknown] diltiazem HCl 360 mg PO DAILY 09/09/21 [History Last Taken Unknown] ferrous sulfate [iron] 325 mg PO DAILY 09/09/21 [History Last Taken Unknown] metformin 500 mg PO BID 09/09/21 [History Last Taken Unknown] methenamine hippurate 1 g PO BID 09/09/21 [History Last Taken Unknown] metolazone 5 mg PO MOFR 09/09/21 [History Last Taken Unknown] modafinil 200 mg PO DAILY 09/09/21 [History Last Taken Unknown] omeprazole 40 mg PO DAILY 09/09/21 [History Last Taken Unknown] rivaroxaban 2.5 mg PO QHS 09/09/21 [History Last Taken Unknown] spironolactone 50 mg PO DAILY 09/09/21 [History Last Taken Unknown] venlafaxine [Effexor] 75 mg PO DAILY 09/09/21 [History Last Taken Unknown] Allergy/AdvReac Type Severity Reaction Status Date / Time aspirin Allergy Hives Verified 09/09/21 01:12 latex Allergy Rash Verified 09/09/21 01:12 Penicillins Allergy Hives Verified 09/09/21 01:12 Sulfa (Sulfonamide Allergy Hives Verified 09/09/21 01:12 Antibiotics) Family History (Updated 09/09/21 @ 04:[address] Suki Gasca MD) Mother Heart disease Father Heart disease Surgical History (Updated 09/09/21 @ 02:[address] Suki Gasca MD) History of hysterectomy Social History (Updated 09/09/21 @ 04:[address] Suki Gasca MD) housing: prison Smoking Status: Never smoker alcohol intake: never substance use type: does not use ROS ROS Narrative Admission Review of Systems: CONSTITUTIONAL: No weight loss, fever, chills, + weakness or fatigue. HEENT: + Headache. Eyes: No visual loss, blurred vision, double vision or yellow sclerae. Ears, Nose, Throat: No hearing loss, sneezing, congestion, runny nose or sore throat. SKIN: No rash or itching, lesions, wounds. CARDIOVASCULAR: No chest pain, chest pressure or chest discomfort, palpitations, edema, orthopnea, syncopal events. RESPIRATORY: + Shortness of breath, cough, No marked sputum, wheezing, he moptysis. GASTROINTESTINAL: + Abdominal pain on exam, anorexia, No nausea, vomiting, diarrhea, melena, BRBPR. GENITOURINARY: No dysuria, frequency, urgency or retention. NEUROLOGICAL: + Narcolepsy, intermittent confusion, No dizziness, syncope, paralysis, ataxia, numbness or tingling in the extremities, focal weakness, change in bowel or bladder control, seizure. MUSCULOSKELETAL: + muscle, back pain, joint pain or stiffness. HEMATOLOGIC: + anemia, bleeding or bruising. LYMPHATICS: No enlarged nodes. No history of splenectomy. PSYCHIATRIC: + history of depression or anxiety. ENDOCRINOLOGIC: No reports of sweating, cold or heat intolerance. No polyuria or polydipsia. ALLERGIES: No history of asthma, hives, eczema or rhinitis. Vital Signs Vital Signs Vital Signs: 09/09/21 00:55 09/09/21 00:59 09/09/21 01:15 Temperature 97.9 F 99.1 F Temperature Source Temporal Oral Pulse Rate 103 H Respiratory Rate 19 H Blood Pressure 119/58 L Blood Pressure Mean 78 Pulse Ox 85 93 Oxygen Delivery Method Room Air Nasal Cannula Oxygen Flow Rate (L/min) 2 09/09/21 03:00 Temperature Temperature Source Pulse Rate 93 Respiratory Rate 74 H Blood Pressure 118/65 Blood Pressure Mean 82 Pulse Ox 98 Oxygen Delivery Method Room Air Oxygen Flow Rate (L/min) Weight Weight: 233 lb 0.458 oz Body Mass Index (BMI) 42.6 Physical Exam Narrative Physical Examination: General: Awakens to stimuli, alert during conversation but then will fall asleep again, oriented to self, place and recent events, intermittently very fatigued and lethargic, will awaken and have discussions, remains cooperative, seated upright in the ED bed no acute distress. Skin: Normal color, normal turgor, no icterus, no cyanosis except significant bilateral lower extremity chronic venous skin changes/stasis as well as abrasions. HEENT: AT/NC, EOMI, PERRLA, severely dry MM, no carotid bruits or JVD noted. Lungs: Diffusely diminished, greater bases, no evidence of any distress, no ra les, ronchi or wheezing. Heart: Mildly tachycardic with regular rhythm; no gallop, rub audible. Abdomen: Soft, morbidly obese, mild epigastric discomfort with palpation, no obvious distention but habitus makes exam difficult, distant hyperactive bowel sounds, no obvious HSM. Extremities: No cyanosis, clubbing, or edema. Bilateral lower extremity significant chronic venous stasis skin changes. Neurological: Patient awake, alert, oriented as noted, cognitive function suspect similar to prior baseline but very fatigued intermittently if allergic with underlying history of narcolepsy; pupils equally reactive to light and accommodation, cranial nerves II-XII grossly normal, moving all 4 extremities, no focal deficits, strength moderately to severely global decreased. Psychiatric: Affect appears flat, fatigued, no acute evidence of depressive or anxiety feelings. Results Lab / Micro Data Result Diagrams: 09/09/21 01:25 09/09/21 01:25 Labs: Laboratory Results - last 24 hr 09/09/21 01:25: WBC 17.7 H, RBC 4.07 L, Hgb 11.9 L, Hct 35.6 L, MCV 87.5, MCH 29.2, MCHC 33.4, RDW Std Deviation 57.1 H, RDW Coeff of Melissa 18.1 H, Plt Count 146 L, MPV 11.1, Immature Gran % (Auto) 0.600, Neut % (Auto) 90.9 H, Lymph % (Auto) 2.4 L, [place] % (Auto) 5.8, Eos % (Auto) 0.1, Baso % (Auto) 0.2, Absolute Neuts (auto) 16.1 H, Absolute Lymphs (auto) 0.43 L, Nucleated RBC % 0, Differential Comment SCANNED 09/09/21 01:25: Sodium 136, Potassium 4.9, Chloride 105, Carbon Dioxide 26.0, Anion Gap 5, BUN 34 H, Creatinine 1.00, Estim Creat Clear Calc 39.63, Est GFR (MDRD) Af Amer 70, Est GFR (MDRD) Non-Af 58 L, BUN/Creatinine Ratio 34.0 H, Glucose 211 H, Calcium 8.5, Total Bilirubin 3.70 H, AST 252 H, ALT 214 H, Alkaline Phosphatase 368 H, Troponin I High Sens 4, Total Protein 6.4, Albumin 2.6 L, Globulin 3.8, Albumin/Globulin Ratio 0.7 L 09/09/21 01:25: Lipase 788 H 09/09/21 01:46: Urine Color Yellow, Urine Clarity Sl. Cloudy, Urine pH 6.5, Ur Specific [place] 1.010, Urine Protein 15 H, Urine Glucose (UA) Normal, Urine Ketones Negative, Urine Occult Blood Negative, Urine Nitrite Negative, Urine Bi lirubin 1 H, Urine Urobilinogen 8 H, Ur Leukocyte Esterase 100 H, Urine RBC 0 SEEN, Urine WBC 0-5 SEEN, Ur Squamous Epith Cells 0-5 SEEN, Urine Bacteria 2+, Urine Mucus 0 SEEN Micro: Microbiology 09/09/21 01:40 Nasal Secretion SARS-CoV-2 Antigen (Rapid) - Final Radiology Impression Brain CT 09/09/21 01:16 IMPRESSION: No acute findings in the head/brain. Electronically Signed: Cam White MD at 2:13 EST , Chest X-Ray 09/09/21 01:18 IMPRESSION: Bilateral pneumonia suspected. Electronically Signed: Cam White MD at 2:29 EST , Abdomen/Pelvis CT 09/09/21 02:03 IMPRESSION: 5 mm nonobstructing calyceal calculus at the medial aspect of the left upper renal pole. No hydronephrosis. Electronically Signed: Cam White MD at 3:18 EST , Assessment & Plan Assessment/Plan (1) Pneumonia: QUALIFIERS: Laterality: bilateral Lung location: unspecified part of lung Pneumonia type: due to unspecified organism Qualified Code(s): J18.9 - Pneumonia, unspecified organism (2) Hypoxia: PLAN: The patient is a 71 y/o F w/ PMHx: Chronic anemia/Fe deficiency, RILEY, Chronic BL LE Lymphedema, Diabetes mellitus type II w/ neuropathy, Morbid Obesity, Anxiety and Depression, GERD, HTN, HLD, RLS, Suspected PAF, COPD, Chronic pain syndrome, Chronic BL LE Diabetic foot wounds who presents to the [facility] ED on 09/09/21 with history of intermittent periods of confusion at [facility] facility which has been going on for some time with onset of mild headache on day of presentation with otherwise no significant complaints per patient with chronic wounds but she reports these are no different and unchanged chronic lower back pain however nursing facility concern for transient confusion episodes prompting ED evaluation. #1. Acute Encephalopathy secondary to Acute Hypoxia secondary to Acute BL PNA, possible GN/GP Organisms versus Acute COVID Viral Syndrome: Will admit to [facility], maintain on oxygen with wean as tolerated to room air, continue ATC duonebs, PRN albuterol, maintain on IV Levaquin w/ MRSA screen, obtain COVID PCR to be cautious per discussion with ED physician, HOB, IS parameters w/ pending sputum cultures and urine antigens. Bld cx x 2 obtained in the ED. PT/OT/CM consultations for discharge planning. #2. Acute mild pancreatitis with elevated LFTs, bilirubin: Will maintain on IVFs, given no pain will allow clears, PPI, IV/po pain control, trend lipase, CMP. Will obtain RUQ US to be cautious, obtain FLP. #3. Suspected narcolepsy: Patient on chronic mode of modafinil regimen. This history could certainly be responsible for patient's intermittent decreased interactiveness at the facility. #4. Diabetes mellitus type II with neuropathy: Hold oral home regimen, continue home insulin regimen, ADA diet, accu checks w/ ISS, continue patient home Lyrica regimen. #5. Chronic bilateral lower extremity lymphedema: We will continue bilateral lower extremity Yong wraps if patient is able to tolerate with elevation. #6. Morbid Obesity: Weight loss and lifestyle changes encouraged. #7. Anxiety and depression: We will continue patient home venlafaxine regimen. #8. Hypertension: Continue home regimen including spironolactone, metolazone, Lasix, diltiazem with parameters as needed, PRN hydralazine. #9. Hyperlipidemia: We will continue patient home statin therapy. #10. Chronic anemia/iron deficiency anemia: Admission hemoglobin 11.9, baseline 10-11, stable, continue iron supplementation, continue to trend. #11. Chronic COPD with chronic hypoxic respiratory failure: Per facility paperwork patient uses intermittent oxygen at the facility, we will hold patient home inhalers, continue ATC duonebs, PRN albuterol, HOB, IS parameters. #12. Suspected PAF: Will continue home xarelto and diltiazem regimen. #13. Chronic back pain: We will continue patient chronic pain regimen however hold for sedation or lethargy. #14. Restless leg syndrome: We will continue patient home Requip regimen. #15. GERD: We will continue patient on PPI. #16. RILEY: CPAP nightly #17 DVT prophylaxis: SCDs, continue home eliquis regimen. #18. CODE STATUS: Full Code per SNF paperwork. Charges/Coding Visit Charges Inpatient E&M: 24920 Init Hosp L3
[2021-09-09] MEDS: levoFLOXacin IV 750 MG/150 ML BAG 100 MG IV ×2 (04:13→10:54)
--- NOTE | 2021-09-09 05:55 | US_ITS ---
HISTORY: Elevated lipase, elevated LFTs/bili. TECHNIQUE: Sheehan scale and color Doppler imaging was performed of the right upper quadrant. Number of images including paperwork: 91. COMPARISON: CT same day. FINDINGS: LIVER: 20.1 cm in length. Homogeneous echotexture without focal lesion. Mild intrahepatic biliary ductal dilation. MAIN PORTAL VEIN: Patent with hepatopedal flow . CBD: 9-13 mm in diameter, dilated with intraluminal material. GALLBLADDER: Both gallstones and sludge present in a distended gallbladder with an irregular hypoechoic nonmobile lesion. Small nonmobile echogenic focus at the fundus. 3 mm wall thickness, within normal limits. No pericholecystic fluid. Sonographic Gomez sign not assessed. PANCREAS: Echogenic with a 2 mm duct. RIGHT KIDNEY: 10.7 cm in length. Mild pelviectasis. US/Gallbladder IMPRESSION: Cholelithiasis and biliary sludge with irregular hypoechoic lesion in the gallbladder lumen, possible tumefactive sludge or mass. Intrahepatic and extrahepatic biliary ductal dilatation with intraluminal material, suspicious for sludge or choledocholithiasis. Recommend correlation with multiphasic MRI/MRCP. Hepatomegaly. Mild right renal pelviectasis at 0857 Reported and signed by: Gricel Kauffman MD Electronically Signed: Gricel Kauffman MD at 8:56 EST ,
[2021-09-09 06:31] LABS: Bedside Glucose 184 mg/dL (70-110)
[2021-09-09] MEDS: 0.9% Normal Saline 1,000 ML 150 ML IV ×3 (06:36→21:21)
[2021-09-09] MEDS: Insulin Lispro 100 UNIT/ML INSULN.PEN SC ×2 (06:40→21:26)
--- NOTE | 2021-09-09 07:15 | PN.HOSP_ITS ---
Hospitalist Note Patient is a 71-year-old lady who was [facility] with altered mental status. Patient was found to have elevated WBC count as well as LFTs in addition to imaging findings consistent with bilateral pneumonia. Admitted to regular nursing floor for further management GENERAL: cooperative HEENT: Atraumatic; EYES; Anicteric, Normal Conjunctiva NECK; supple, normal thyroid, RESPIRATORY: Diminished to auscultation CARDIOVASCULAR: Regular S1 S2, GI: soft, normoactive bowel sounds, : No Renal angle tenderness; EXTREMITIES: No edema, no clubbing, MUSCULOSKELETAL: no muscle wasting NEURO: Awake; no lateralizing signs. SKIN: Bilateral lower extremity stasis dermatitis PSYCH; Flat affect 1. Acute metabolic encephalopathy ?Suspected to be secondary to pneumonia admitted to regular nursing floor with treatment of patient's underlying condition 2. Pneumonia - Suspected to be secondary to streptococcal pneumonia, Blood and sputum cultures sent. Patient placed on Levaquin in addition to oxygen titrated to keep Pulse Ox greater than 90 3. History of recent COVID-19 infection ?Diagnosed on 07/25/2021. Patient is out of isolation 4. Abnormal LFTs ?Gallbladder ultrasound obtained did show Cholelithiasis and biliary sludge with irregular hypoechoic lesion in the gallbladder lumen, possible tumefactive sludge or mass. Intrahepatic and extrahepatic biliary ductal dilatation with intraluminal material, suspicious for sludge or choledocholithiasis. MRCP ordered as recommended by radiologist 5. Diabetes mellitus type II -patient's oral hypoglycemics held. Placed on long acting insulin, Accu-Cheks a.c. and at bedtime and covered with sliding scale insulin 6. Class III obesity with BMI of 42.2 ?Weight loss advised 7. Paroxysmal atrial fibrillation ?Rate controlled on systemic anticoagulation with rivaroxaban did continue 8. COPD ?Currently not in exacerbation did continue patient home regimen 9. Depression with anxiety ?Patient is on SNRI did continue 10. Hypertension - Blood pressure controlled, home medications continued with dose adjustment as needed 11. Restless leg syndrome ?Patient is on Requip did continue 12. Obstructive sleep apnea ?Patient is on CPAP at night 13. Anemia - Secondary to chronic disorder monitoring H&H and transfuse if patient becomes symptomatic or hemoglobin falls below 7 14. DVT prophylaxis ?Patient is a rivaroxaban will continue
[2021-09-09 07:19] LABS: Absolute Lymphocyte Count 0.35 X10^3/uL (0.83-4.51); Absolute Neutrophil Count 10.6 X10^3/uL (2.0-7.7); Basophil# 0.02 X10^3/uL; Basophil% 0.2 % (0-1); Eosinophil# 0.02 X10^3/uL; Eosinophils% 0.2 % (0-5); Hematocrit 32.7 % (37-47); Hemoglobin 10.5 g/dL (12.0-15.0); Lymphocyte # 0.35 X10^3/ul (0.83-4.51); Mean Corp Hgb Conc 32.1 g/dL (32-36); Mean Corpuscular Hgb 27.9 pg (27.0-32.0); Mean Platelet Vol. 10.2 fl (6.2-12.0); Monocyte# 0.78 X10^3/uL; Monocyte% 6.6 % (0-10); NRBC Flagged by Analyzer 0 % (0-5); Neutrophil # 10.64 X10^3/uL (2.7-7.7); Neutrophil % 89.6 % (47-70); POSITIVE DIFFERENTIAL YES; Platelet Count 173 K/mm3 (150-450); RBC Distribution Width CV 18.2 % (11.6-14.6); RBC Distribution Width SD 57.6 fl (35.1-43.9); Red Blood Count 3.76 M/mm3 (4.2-5.4); White Blood Count 11.9 K/mm3 (4.4-11.0)
[2021-09-09 07:23] LABS: Differential Indicated SCAN CRITERIA MET
[2021-09-09 07:49] LABS: ALB/GLOB Ratio 0.6 RATIO (0.9-2.4); AST(SGOT) 168 U/L (15-37); Alanine Aminotransfer ALT/SGPT 189 U/L (13-56); Albumin, Serum 2.3 g/dL (3.2-5.0); Alkaline Phosphatase 362 U/L (45-117); Anion Gap 6 (5-15); BUN 30 mg/dL (7-18); BUN/Creat Ratio 35.4 RATIO (10-20); Calcium,Total 8.5 mg/dL (8.5-10.1); Chloride 106 mmol/L (98-107); Creatinine, Serum 0.85 mg/dL (0.55-1.02); EST Glomerular Filtration Rate 70 mL/min (>60); Est Glom Filt Rate - Afr Amer 85 mL/min (>60); Estimated Creatinine Clearance 46.62 ml/min; Globulin 3.7 g/dL (2.2-4.2); Glucose 175 mg/dL (74-106); Lipase 1150 U/L (73-393); Potassium 4.1 mmol/L (3.5-5.1); Sodium Level 141 mmol/L (136-145)
[2021-09-09 08:05] LABS: Hypochromasia RARE; Platelet Estimate ADEQUATE (ADEQ)
[2021-09-09] MEDS: Ipratropium/Albuterol Sulfate 3 ML AMPUL.NEB INHALATION ×3 (10:17→18:31)
[2021-09-09 10:35] LABS: M R Staph aureus DNA By PCR Negative (Negative); Probe Check PASS; Specimen Processing Control PASS
[2021-09-09] MEDS: morphine SR 15 MG Tablet 45 MG PO ×2 (10:58→21:20)
[2021-09-09] MEDS: Menthol/Lanolin/Calamine/Znox 113 GM Tube 1 APPLIC TOPICAL ×2 (11:07→21:27)
[2021-09-09] MEDS: Nystatin Powder 15gm Bottle 1 APPLIC TOPICAL ×2 (11:08→21:27)
[2021-09-09 11:46] LABS: Bedside Glucose 122 mg/dL (70-110)
--- NOTE | 2021-09-09 15:18 | CM.ED ---
KRISTIN Note Referral Source: NISHA ROGERS Referral Reason: From [facility] KRISTIN called [facility] and left voice mail for admission advising patient had been admitted to [facility] Unit (room 302). KRISTIN advised if patient could return to [facility] at discharge. KRISTIN requested that this business writer receive follow up today or with the assigned social work assistant, Jacquelyn, on Saturday09/11/21. KRISTIN left this business writer's phone contact. Plan: Return to [facility] Amara OSHEA
[2021-09-09] MEDS: Pregabalin 50 MG Capsule 100 MG PO ×2 (16:05→21:20)
[2021-09-09] MEDS: Spironolactone 50 MG Tablet PO (16:12)
[2021-09-09] MEDS: Furosemide 40 MG Tablet PO (16:13)
[2021-09-09] MEDS: Pantoprazole Sodium 40 MG Tablet PO ×2 (16:13→21:20)
[2021-09-09] MEDS: Venlafaxine HCl 75 MG Tablet PO (16:14)
[2021-09-09] MEDS: Potassium Chloride Oral Tablet 20 MEQ 60 MEQ PO ×2 (16:15→21:20)
[2021-09-09] MEDS: dilTIAZem CD 180 MG Capsule 360 MG PO (16:17)
[2021-09-09 16:41] LABS: Bedside Glucose 93 mg/dL (70-110)
--- NOTE | 2021-09-09 21:19 | CM.ED ---
KRISTIN Note Referral Source: CM Referral Reason: From [facility] Sw met with patient. She reports she does not know how she got to the hospital. Patient said that she had lived at [facility] for 7 years. Patient said that she went to [facility] as she had an infected toe and had surgery. Patient said that due to the antibiotics and her insurance she had to go to [facility]. Patient then said that she had gotten COVID and had to go to COVID SNF in [place]. Patient said that she plans to return to [facility] at discharge. Patient is currently in the SNF at [facility]. Patient said that she has looked at the apartments at [facility] and may move from [facility] to [facility] apartments. 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 KRISTIN updated RN Plan: return to [facility] at discharge.
[2021-09-09] MEDS: Atorvastatin Calcium 10 MG Tablet PO (21:20)
[2021-09-09] MEDS: Methenamine Hippurate 1 GM Tablet PO (21:20)
[2021-09-09] MEDS: Pramipexole Di-HCl 0.125 MG Tablet PO (21:20)
[2021-09-09] MEDS: Rivaroxaban 2.5 MG Tablet PO (21:21)
[2021-09-09] MEDS: Oxybutynin 5 MG Tablet PO (21:21)
[2021-09-09 21:51] LABS: Bedside Glucose 153 mg/dL (70-110)
[2021-09-10] VITALS (11 sets, daily range): BP systolic 114–125; BP diastolic 61–104; PULSE 78–98; RESP 12–20; TEMP 36.4–37.1; O2SAT 92–98
[2021-09-10] MEDS: 0.9% Normal Saline 1,000 ML 150 ML IV ×3 (03:06→17:06)
[2021-09-10] MEDS: Pregabalin 50 MG Capsule 100 MG PO ×3 (05:47→21:16)
[2021-09-10 06:16] LABS: Absolute Lymphocyte Count 0.34 X10^3/uL (0.83-4.51); Absolute Neutrophil Count 4.3 X10^3/uL (2.0-7.7); Basophil# 0.01 X10^3/uL; Basophil% 0.2 % (0-1); Eosinophil# 0.02 X10^3/uL; Eosinophils% 0.4 % (0-5); Hemoglobin 10.1 g/dL (12.0-15.0); Lymphocyte # 0.34 X10^3/ul (0.83-4.51); Lymphocyte % 6.6 % (19-41); Mean Corp Hgb Conc 32.6 g/dL (32-36); Mean Corpuscular Hgb 29.1 pg (27.0-32.0); Mean Corpuscular Volume 89.3 fL (81-99); Mean Platelet Vol. 10.5 fl (6.2-12.0); Monocyte# 0.44 X10^3/uL; Monocyte% 8.5 % (0-10); NRBC Flagged by Analyzer 0 % (0-5); Neutrophil # 4.33 X10^3/uL (2.7-7.7); Neutrophil % 83.5 % (47-70); POSITIVE DIFFERENTIAL YES; Platelet Count 124 K/mm3 (150-450); RBC Distribution Width CV 18.6 % (11.6-14.6); RBC Distribution Width SD 60.4 fl (35.1-43.9); Red Blood Count 3.47 M/mm3 (4.2-5.4); White Blood Count 5.2 K/mm3 (4.4-11.0)
[2021-09-10 06:17] LABS: Differential Indicated SCAN CRITERIA MET
[2021-09-10 06:41] LABS: Bedside Glucose 86 mg/dL (70-110)
[2021-09-10 06:52] LABS: AST(SGOT) 68 U/L (15-37); Alanine Aminotransfer ALT/SGPT 126 U/L (13-56); Albumin, Serum 2.3 g/dL (3.2-5.0); Alkaline Phosphatase 285 U/L (45-117); Anion Gap 5 (5-15); BUN 19 mg/dL (7-18); BUN/Creat Ratio 25.7 RATIO (10-20); Bilirubin, Direct 1.09 mg/dL (0.00-0.30); Calcium,Total 8.2 mg/dL (8.5-10.1); Chloride 109 mmol/L (98-107); Creatinine, Serum 0.74 mg/dL (0.55-1.02); EST Glomerular Filtration Rate 82 mL/min (>60); Est Glom Filt Rate - Afr Amer 99 mL/min (>60); Estimated Creatinine Clearance 39.63 ml/min; Globulin 3.5 g/dL (2.2-4.2); Glucose 87 mg/dL (74-106); Potassium 4.5 mmol/L (3.5-5.1); Protein, Total 5.8 g/dL (6.4-8.2); Sodium Level 139 mmol/L (136-145)
[2021-09-10 07:10] LABS: Anisocytosis 2+
[2021-09-10] MEDS: Ipratropium/Albuterol Sulfate 3 ML AMPUL.NEB INHALATION ×4 (07:14→20:01)
--- NOTE | 2021-09-10 07:43 | PCM.PN.HOSP ---
Subjective Subjective Patient is a 71-year-old lady who was brought to the emergency department from a half-way facility with altered mental status. Patient was found to have elevated WBC count as well as LFTs in addition to imaging findings consistent with bilateral pneumonia. Admitted to regular nursing floor for further management Objective Data Objective Data Vital Signs: Vital Signs Temp Pulse Resp BP Pulse Ox 97.6 F L 93 17 117/61 97 09/10/21 03:07 09/10/21 04:04 09/10/21 04:04 09/10/21 03:07 09/10/21 04:04 Oxygen Flow Rate (L/min) 2 Oxygen Delivery Method Bi-pap Weight: 106.2 kg Body Mass Index (BMI) 42.2 Intake & Output: Intake and Output for Last 24 Hours 09/08/21 09/09/21 09/10/21 23:59 23:59 23:59 Intake Total 3227.5 / 3527.5 1262.5 / 1262.5 Output Total 600 / 1700 1200 / 1200 Balance 2627.5 / 1827.5 62.5 / 62.5 Lab / Micro Data Result Diagrams: 09/10/21 05:35 09/10/21 05:35 Labs: Laboratory Results - last 24 hr 09/09/21 06:20: MRSA (PCR) Negative 09/09/21 07:02: Platelet Estimate ADEQUATE, Hypochromasia RARE 09/09/21 07:02: Sodium 141, Potassium 4.1, Chloride 106, Carbon Dioxide 29.0, Anion Gap 6, BUN 30 H, Creatinine 0.85, Estim Creat Clear Calc 46.62, Est GFR (MDRD) Af Amer 85, Est GFR (MDRD) Non-Af 70, BUN/Creatinine Ratio 35.4 H, Glucose 175 H, Calcium 8.5, Total Bilirubin 3.50 H, AST 168 H, ALT 189 H, Alkaline Phosphatase 362 H, Total Protein 6.0 L, Albumin 2.3 L, Globulin 3.7, Albumin/Globulin Ratio 0.6 L, Lipase 1150 H 09/09/21 11:02: POC Glucose 122 H 09/09/21 15:48: POC Glucose 93 09/09/21 21:14: POC Glucose 153 H 09/10/21 05:35: WBC 5.2, RBC 3.47 L, Hgb 10.1 L, Hct 31.0 L, MCV 89.3, MCH 29.1, MCHC 32.6, RDW Std Deviation 60.4 H, RDW Coeff of Melissa 18.6 H, Plt Count 124 L, MPV 10.5, Immature Gran % (Auto) 0.800, Neut % (Auto) 83.5 H, Lymph % (Auto) 6.6 L, [place] % (Auto) 8.5, Eos % (Auto) 0.4, Baso % (Auto) 0.2, Absolute Neuts (auto) 4.3, Absolute Lymphs (auto) 0.34 L, Nucleated RBC % 0, Anisocytosis 2+ 09/10/21 05:35: Sodium 139, Potassium 4.5, Chloride 109 H, Carbon Dioxide 25.0, Anion Gap 5, BUN 19 H, Creatinine 0.74, Estim Creat Clear Calc 39.63, Est GFR (MDRD) Af Amer 99, Est GFR (MDRD) Non-Af 82, BUN/Creatinine Ratio 25.7 H, Glucose 87, Calcium 8.2 L, Total Bilirubin 1.60 H, Direct Bilirubin 1.09 H, AST 68 H, ALT 126 H, Alkaline Phosphatase 285 H, Total Protein 5.8 L, Albumin 2.3 L, Globulin 3.5 09/10/21 06:34: POC Glucose 86 Micro: Microbiology 09/09/21 01:46 Urine, Random Legionella Antigen - Final 09/09/21 01:46 Urine, Random Streptococcus pneumoniae Antigen (M - Final 09/09/21 01:40 Nasal Secretion SARS-CoV-2 Antigen (Rapid) - Final Radiography Diagnostic Testing: Radiology Impression Gallbladder Ultrasound 09/09/21 05:55 IMPRESSION: Cholelithiasis and biliary sludge with irregular hypoechoic lesion in the gallbladder lumen, possible tumefactive sludge or mass. Intrahepatic and extrahepatic biliary ductal dilatation with intraluminal material, suspicious for sludge or choledocholithiasis. Recommend correlation with multiphasic MRI/MRCP. Hepatomegaly. Mild right renal pelviectasis at 0857 Reported and signed by: Gricel Kauffman MD Electronically Signed: Gricel Kauffman MD at 8:56 EST Reading Location ID and State: [facility] / [place] Tel , Service support , Physical Exam Narrative GENERAL: cooperative HEENT: Atraumatic; EYES; Anicteric, Normal Conjunctiva NECK; supple, normal thyroid, RESPIRATORY: Diminished to auscultation CARDIOVASCULAR: Regular S1 S2, GI: soft, normoactive bowel sounds, : No Renal angle tenderness; EXTREMITIES: No edema, no clubbing, MUSCULOSKELETAL: no muscle wasting NEURO: Awake; no lateralizing signs. SKIN: Bilateral lower extremity stasis dermatitis PSYCH; Flat affect Assessment & Plan Assessment/Plan (1) Pneumonia: QUALIFIERS: Laterality: bilateral Lung location: unspecified part of lung Pneumonia type: due to unspecified organism Qualified Code(s): J18.9 - Pneumonia, unspecified organism (2) Hypoxia: PLAN: Patient is a 71-year-old lady who was brought to the emergency department from a half-way facility with altered mental status. Patient was found to have elevated WBC count as well as LFTs in addition to imaging findings consistent with bilateral pneumonia. Admitted to regular nursing floor for further management 1. Acute metabolic encephalopathy ?Suspected to be secondary to pneumonia admitted to regular nursing floor with treatment of patient's underlying condition 2. Pneumonia - Suspected to be secondary to streptococcal pneumonia, Blood and sputum cultures sent. Patient placed on Levaquin in addition to oxygen titrated to keep Pulse Ox greater than 90 3. History of recent COVID-19 infection ?Diagnosed on 07/25/2021. Patient is out of isolation 4. Abnormal LFTs ?Gallbladder ultrasound obtained did show Cholelithiasis and biliary sludge with irregular hypoechoic lesion in the gallbladder lumen, possible tumefactive sludge or mass. Intrahepatic and extrahepatic biliary ductal dilatation with intraluminal material, suspicious for sludge or choledocholithiasis. MRCP ordered as recommended by radiologist 5. Diabetes mellitus type II -patient's oral hypoglycemics held. Placed on long acting insulin, Accu-Cheks a.c. and at bedtime and covered with sliding scale insulin 6. Class III obesity with BMI of 42.2 ?Weight loss advised 7. Paroxysmal atrial fibrillation ?Rate controlled on systemic anticoagulation with rivaroxaban did continue 8. COPD ?Currently not in exacerbation did continue patient home regimen 9. Depression with anxiety ?Patient is on SNRI did continue 10. Hypertension - Blood pressure controlled, home medications continued with dose adjustment as needed 11. Restless leg syndrome ?Patient is on Requip did continue 12. Obstructive sleep apnea ?Patient is on CPAP at night 13. Anemia - Secondary to chronic disorder monitoring H&H and transfuse if patient becomes symptomatic or hemoglobin falls below 7 14. DVT prophylaxis ?Patient is a rivaroxaban will continue Charges/Coding Visit Charges Inpatient E&M: 02717 Subs Hosp L3
[2021-09-10] MEDS: Ferrous Sulfate 325 MG Tablet PO (08:01)
[2021-09-10] MEDS: Menthol/Lanolin/Calamine/Znox 113 GM Tube 1 APPLIC TOPICAL ×2 (09:05→21:18)
[2021-09-10] MEDS: Nystatin Powder 15gm Bottle 1 APPLIC TOPICAL ×2 (09:06→21:18)
[2021-09-10] MEDS: morphine SR 15 MG Tablet 45 MG PO ×2 (09:07→21:16)
[2021-09-10] MEDS: Pantoprazole Sodium 40 MG Tablet PO ×2 (09:07→21:19)
[2021-09-10] MEDS: Furosemide 40 MG Tablet PO (09:08)
[2021-09-10] MEDS: Oxybutynin 5 MG Tablet 15 MG PO (09:08)
[2021-09-10] MEDS: Methenamine Hippurate 1 GM Tablet PO ×2 (09:08→21:17)
[2021-09-10] MEDS: Venlafaxine HCl 75 MG Tablet PO (09:08)
[2021-09-10] MEDS: Spironolactone 50 MG Tablet PO (09:08)
[2021-09-10] MEDS: Potassium Chloride Oral Tablet 20 MEQ 60 MEQ PO ×2 (09:09→21:17)
[2021-09-10] MEDS: dilTIAZem CD 180 MG Capsule 360 MG PO (09:09)
[2021-09-10] MEDS: Modafinil 200 MG Tablet PO (10:08)
[2021-09-10 11:46] LABS: Bedside Glucose 143 mg/dL (70-110)
[2021-09-10] MEDS: Insulin Lispro 100 UNIT/ML INSULN.PEN SC ×2 (17:00→21:23)
[2021-09-10 17:06] LABS: Bedside Glucose 167 mg/dL (70-110)
[2021-09-10] MEDS: Oxybutynin 5 MG Tablet PO (21:17)
[2021-09-10] MEDS: Pramipexole Di-HCl 0.125 MG Tablet PO (21:17)
[2021-09-10] MEDS: Fluticasone 0.05% 1 SPRAY NASAL.SRY 2 SPRAY NASAL (21:17)
[2021-09-10] MEDS: Atorvastatin Calcium 10 MG Tablet PO (21:18)
[2021-09-10] MEDS: Rivaroxaban 2.5 MG Tablet PO (21:19)
[2021-09-10 21:56] LABS: Bedside Glucose 156 mg/dL (70-110)
[2021-09-11] VITALS (17 sets, daily range): BP systolic 109–130; BP diastolic 51–110; PULSE 64–88; RESP 12–21; TEMP 36.7–36.9; O2SAT 93–100
[2021-09-11] MEDS: 0.9% Normal Saline 1,000 ML 150 ML IV ×3 (01:47→16:29)
[2021-09-11 06:12] LABS: Absolute Lymphocyte Count 0.71 X10^3/uL (0.83-4.51); Absolute Neutrophil Count 2.8 X10^3/uL (2.0-7.7); Basophil# 0.03 X10^3/uL; Basophil% 0.8 % (0-1); Eosinophil# 0.09 X10^3/uL; Eosinophils% 2.3 % (0-5); Hematocrit 30.3 % (37-47); Hemoglobin 9.8 g/dL (12.0-15.0); Lymphocyte # 0.71 X10^3/ul (0.83-4.51); Lymphocyte % 18.1 % (19-41); Mean Corp Hgb Conc 32.3 g/dL (32-36); Mean Corpuscular Hgb 28.2 pg (27.0-32.0); Mean Corpuscular Volume 87.1 fL (81-99); Mean Platelet Vol. 10.4 fl (6.2-12.0); Monocyte% 7.6 % (0-10); NRBC Flagged by Analyzer 0 % (0-5); Neutrophil # 2.77 X10^3/uL (2.7-7.7); Neutrophil % 70.4 % (47-70); Platelet Count 111 K/mm3 (150-450); RBC Distribution Width CV 18.5 % (11.6-14.6); RBC Distribution Width SD 59.5 fl (35.1-43.9); Red Blood Count 3.48 M/mm3 (4.2-5.4); White Blood Count 3.9 K/mm3 (4.4-11.0)
[2021-09-11 06:32] LABS: AST(SGOT) 30 U/L (15-37); Alanine Aminotransfer ALT/SGPT 86 U/L (13-56); Albumin, Serum 2.2 g/dL (3.2-5.0); Alkaline Phosphatase 256 U/L (45-117); Anion Gap 6 (5-15); BUN 14 mg/dL (7-18); BUN/Creat Ratio 23.8 RATIO (10-20); Bilirubin, Direct 0.37 mg/dL (0.00-0.30); Calcium,Total 8.4 mg/dL (8.5-10.1); Chloride 107 mmol/L (98-107); Creatinine, Serum 0.59 mg/dL (0.55-1.02); EST Glomerular Filtration Rate 106 mL/min (>60); Est Glom Filt Rate - Afr Amer 129 mL/min (>60); Estimated Creatinine Clearance 39.63 ml/min; Globulin 3.8 g/dL (2.2-4.2); Glucose 94 mg/dL (74-106); Potassium 4.5 mmol/L (3.5-5.1); Sodium Level 138 mmol/L (136-145)
[2021-09-11 07:01] LABS: Bedside Glucose 90 mg/dL (70-110)
[2021-09-11] MEDS: Ipratropium/Albuterol Sulfate 3 ML AMPUL.NEB INHALATION ×4 (07:15→20:23)
--- NOTE | 2021-09-11 08:00 | MRI_ITS ---
EXAM: MR ABDOMEN WITHOUT INTRAVENOUS CONTRAST, MRCP PROTOCOL CLINICAL INDICATION: Cholelithiasis TECHNIQUE: Multiplanar and multisequence MR images of the abdomen without intravenous contrast obtained with MRCP sequence. Three-dimensional post-processing reconstructions were performed. This report was created using [employer] report generation technology. COMPARISON: Ultrasound 09/09/2021, CT 09/09/2021. FINDINGS: LOWER THORAX: Unremarkable. No pleural effusion. LIVER: Unremarkable. Normal morphology. GALLBLADDER AND BILE DUCTS: Gallbladder sludge and gallstones. Dilated common duct measuring up to 11.9 mm. The common hepatic duct is also dilated measuring 8.4 mm. Mild intrahepatic bile duct dilation, left more than right. In the lower common duct adjacent to the ampulla, there is a filling defect measuring 8.3 mm seen on image 16 of series 2 (although not seen on the adjacent image 15). No gallbladder wall thickening or pericholecystic fluid. No choledochal filling defect. PANCREAS: Unremarkable. No focal cystic mass. No pancreatic duct dilation. SPLEEN: The spleen is mildly enlarged measuring 14 cm, unchanged in CT. ADRENALS: Unremarkable. No nodules. KIDNEYS AND URETERS: Unremarkable. Normal renal size and position. No hydronephrosis. INTRAPERITONEAL SPACE: Unremarkable. No ascites or other fluid collection. VASCULATURE: Unremarkable. Abdominal aorta is non-dilated. LYMPH NODES: No enlarged lymph nodes. MRI/MRCP Abdomen without Contrast IMPRESSION: 1. Gallbladder sludge and gallstones. No MRI evidence of acute cholecystitis. 2. Extrahepatic more than intrahepatic bile duct dilation with potential choledocholithiasis versus averaging artifact just above the level of the ampulla. 3. Mild splenomegaly. Electronically Signed: Kendall Harrell MD ([place]) at 11:09 EST ,
[2021-09-11] MEDS: 0.9% Saline Lock 10 ML Syringe IV (08:52)
[2021-09-11] MEDS: LORazepam 2 MG/ML Syringe 1 MG IV (08:52)
--- NOTE | 2021-09-11 09:50 | CASEMGMT ---
Social Work Note Pt is listed as being from [facility] and plan is to return. KRISTIN placed a call to Tash at [facility]. Tash states pt is bed hold and can return whenever medically cleared. KRISTIN faxed updated clinicals to [facility]. 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
--- NOTE | 2021-09-11 10:22 | NURSING ---
pt off unit in MRI
[2021-09-11] MEDS: levoFLOXacin IV 750 MG/150 ML BAG 100 MG IV (10:38)
--- NOTE | 2021-09-11 10:38 | NURSING ---
pt returned from MRI
[2021-09-11] MEDS: Ferrous Sulfate 325 MG Tablet PO (10:44)
[2021-09-11] MEDS: morphine SR 15 MG Tablet 45 MG PO ×2 (10:44→22:21)
[2021-09-11] MEDS: Spironolactone 50 MG Tablet PO (10:44)
[2021-09-11] MEDS: dilTIAZem CD 180 MG Capsule 360 MG PO (10:45)
[2021-09-11] MEDS: Menthol/Lanolin/Calamine/Znox 113 GM Tube 1 APPLIC TOPICAL ×2 (10:45→22:22)
[2021-09-11] MEDS: Venlafaxine HCl 75 MG Tablet PO (10:47)
[2021-09-11] MEDS: Potassium Chloride Oral Tablet 20 MEQ 60 MEQ PO ×2 (10:47→22:22)
[2021-09-11] MEDS: Furosemide 40 MG Tablet PO (10:47)
[2021-09-11] MEDS: metOLazone 5 MG Tablet PO (10:48)
[2021-09-11] MEDS: Oxybutynin 5 MG Tablet 15 MG PO (10:48)
[2021-09-11] MEDS: Pantoprazole Sodium 40 MG Tablet PO ×2 (10:49→22:23)
--- NOTE | 2021-09-11 14:11 | PN.HOSP_ITS ---
Subjective Subjective Denies abdominal pain. Objective Data Objective Data Vital Signs: Vital Signs Temp Pulse Resp BP Pulse Ox 36.8 C 77 21 H 126/110 H 96 09/11/21 02:46 09/11/21 11:43 09/11/21 11:43 09/11/21 10:10 09/11/21 10:10 Oxygen Flow Rate (L/min) 2 Oxygen Delivery Method Nasal Cannula Weight: 106.6 kg Body Mass Index (BMI) 42.2 Intake & Output: Intake and Output for Last 24 Hours 09/09/21 09/10/21 09/11/21 23:59 23:59 23:59 Intake Total 3227.5 / 3527.5 4262.5 / 4762.5 1522.5 / 1522.5 Output Total 600 / 1700 3550 / 4150 2300 / 2300 Balance 2627.5 / 1827.5 712.5 / 612.5 -777.5 / -777.5 Lab / Micro Data Result Diagrams: 09/11/21 05:15 09/11/21 05:15 Labs: Laboratory Results - last 24 hr 09/10/21 16:07: POC Glucose 167 H 09/10/21 21:14: POC Glucose 156 H 09/11/21 05:15: WBC 3.9 L, RBC 3.48 L, Hgb 9.8 L, Hct 30.3 L, MCV 87.1, MCH 28.2, MCHC 32.3, RDW Std Deviation 59.5 H, RDW Coeff of Melissa 18.5 H, Plt Count 111 L, MPV 10.4, Immature Gran % (Auto) 0.800, Neut % (Auto) 70.4 H, Lymph % (Auto) 18.1 L, [place] % (Auto) 7.6, Eos % (Auto) 2.3, Baso % (Auto) 0.8, Absolute Neuts (auto) 2.8, Absolute Lymphs (auto) 0.71 L, Nucleated RBC % 0 09/11/21 05:15: Sodium 138, Potassium 4.5, Chloride 107, Carbon Dioxide 25.0, Anion Gap 6, BUN 14, Creatinine 0.59, Estim Creat Clear Calc 39.63, Est GFR (MDRD) Af Amer 129, Est GFR (MDRD) Non-Af 106, BUN/Creatinine Ratio 23.8 H, Glucose 94, Calcium 8.4 L, Total Bilirubin 0.90, Direct Bilirubin 0.37 H, AST 30, ALT 86 H, Alkaline Phosphatase 256 H, Total Protein 6.0 L, Albumin 2.2 L, Globulin 3.8 09/11/21 06:48: POC Glucose 90 Micro: Microbiology 09/09/21 01:46 Urine, Random Legionella Antigen - Final 09/09/21 01:46 Urine, Random Streptococcus pneumoniae Antigen (M - Final 09/09/21 01:40 Nasal Secretion SARS-CoV-2 Antigen (Rapid) - Final Radiography Diagnostic Testing: Radiology Impression MRCP 09/11/21 08:00 IMPRESSION: 1. Gallbladder sludge and gallstones. No MRI evidence of acute cholecystitis. 2. Extrahepatic more than intrahepatic bile duct dilation with potential choledocholithiasis versus averaging artifact just above the level of the ampulla. 3. Mild splenomegaly. Electronically Signed: Kendall Harrell MD ([place]) at 11:09 EST Reading Location ID and State: [address] [place] [address] , Service support , Physical Exam Const Constitutional Narrative: groggy. afebrile. Resp normal respiratory effort, no use of accessory muscles and clear to auscultation bilaterally Cardio regular rate, regular rhythm, S1 normal heart sound and S2 normal heart sound GI normal to inspection, nondistended, normoactive bowel sounds, soft to palpation, non-tender and non-distended Extremity normal to inspection Neuro Sensorium / Orientation: awake and alert Assessment & Plan Assessment/Plan (1) Choledocholithiasis: (2) Cholelithiasis: QUALIFIERS: Cholelithiasis location: gallbladder Cholecystitis presence: without cholecystitis Biliary obstruction: with biliary obstruction Qualified Code(s): K80.21 - Calculus of gallbladder without cholecystitis with obstruction (3) Acute respiratory failure with hypoxia: PLAN: 1. choledocholithiasis GI consult 2. Cholelithiasis gallstone pancreatitis NQSIP performed patient higher than average risk for serious complications, any complications, pneumonia, surgical sites infection, urinary tract infection, VTE, renal failure, readmission, return to the OR discharged to nursing pt medically optimized to proceed with surgery consult surgery for eval for lap lawanda. 3. Gallstone pancreatitis as above 4. Metabolic encephalopathy may have been due to hypoxia upon presentation and medication (takes morphine chronically) 5. PAF hold rivaroxaban for potential intervention 6. Acute hypoxic respiratory failure on levofloxacin doubt pneumonia suspect due to obesity hypoventialation, RILEY 7. VTE prophylaxis: SCDs for now. Charges/Coding Visit Charges Inpatient E&M: 12054 Subs Hosp L2
[2021-09-11] MEDS: Nystatin Powder 15gm Bottle 1 APPLIC TOPICAL ×2 (14:25→22:22)
[2021-09-11] MEDS: Methenamine Hippurate 1 GM Tablet PO ×2 (14:25→22:21)
[2021-09-11] MEDS: Insulin Lispro 100 UNIT/ML INSULN.PEN SC ×2 (16:30→22:23)
[2021-09-11] MEDS: Pregabalin 50 MG Capsule 100 MG PO ×2 (16:30→22:21)
[2021-09-11 16:50] LABS: Bedside Glucose 185 mg/dL (70-110)
--- NOTE | 2021-09-11 17:44 | EX.PCM.CON.S ---
Assessment & Plan Assessment/Plan (1) Cholelithiasis: QUALIFIERS: Cholelithiasis location: gallbladder Cholecystitis presence: without cholecystitis Biliary obstruction: with biliary obstruction Qualified Code(s): K80.21 - Calculus of gallbladder without cholecystitis with obstruction (2) Choledocholithiasis: PLAN: At this point she still has elevation of her liver function test. I have consulted Dr. Irizarry for evaluation for potential ERCP prior to any surgical intervention. She is at high risk for postoperative morbidity and mortality. Will defer any surgical intervention until I have spoken to Dr. Irizarry after he is evaluated the patient. HPI Consult Data Date of Consult: 09/11/21 HPI Narrative HPI Narrative: SANDY ORONA, is a 71 y/o F w/ PMHx: Chronic anemia/Fe deficiency, RILEY, Chronic BL LE Lymphedema, Diabetes mellitus type II w/ neuropathy, Morbid Obesity, Anxiety and Depression, GERD, HTN, HLD, RLS, PAF, COPD, Chronic pain syndrome, Chronic BL LE Diabetic foot wounds who presents to the [facility] ED on 09/09/21 with history of intermittent periods of confusion at [facility] facility which has been going on for some time with onset of mild headache on day of presentation with otherwise no significant complaints per patient with chronic wounds but she reports these are no different and unchanged chronic lower back pain however nursing facility concern for transient confusion episodes prompting ED evaluation. Patient denies any recent cough, dyspnea or increase sputum production. She denies any recent fevers or chills. Patient given history of transient intermittent confusion is not the best historian however. Work-up in the ED included T 97.9, heart rate 103, BP 119/58, respiratory rate 19, initially 85% on room air with improvement to 93% on 2 L nasal cannula, CBC with WC 17.7, hemoglobin 11.9, platelet 146 with left shift and lymphopenia, CMP with BUN/creatinine 34/1, glucose 211, total bilirubin 3.70, AST/ALT 252/214, alk phos 368, troponin 4, lipase 788, urinalysis with negative nitrite, 100 leukocyte esterase, no urine WBCs with 2+ urine bacteria not markedly appearing, rapid COVID antigen negative, chest x-ray with bilateral lower lobe and left upper lobe heterogeneous ill-defined airspace disease suspicious for bilateral pneumonia, CT of the brain with no acute intracranial findings, CT abdomen and pelvis with IV contrast 5 mm nonobstructing calyceal calculus the medial aspect of the left upper renal pole with no hydronephrosis. In the ED patient ministered Levaquin and Flagyl. Her work-up has included an MRCP which showed: GALLBLADDER AND BILE DUCTS: Gallbladder sludge and gallstones. Dilated common duct measuring up to 11.9 mm. The common hepatic duct is also dilated measuring 8.4 mm. Mild intrahepatic bile duct dilation, left more than right. In the lower common duct adjacent to the ampulla, there is a filling defect measuring 8.3 mm seen on image 16 of series 2 (although not seen on the adjacent image 15). No gallbladder wall thickening or pericholecystic fluid. No choledochal filling defect. She currently is having no pain. [facility] Medical History Anxiety and depression Benign hypertension Chronic acquired lymphedema Chronic back pain Diabetic ulcer of left foot Diabetic ulcer of right foot HLD (hyperlipidemia) RILEY (obstructive sleep apnea) PAF (paroxysmal atrial fibrillation) RLS (restless legs syndrome) Type 2 diabetes mellitus Venous stasis ulcer of right thigh with fat layer exposed Venous ulcer of left lower extremity with varicose veins Venous ulcer of right lower extremity with varicose veins Home Medications Morphine [Morphine Ir] 50 mg PO BID 02/16/14 [History Last Taken Unknown] albuterol sulfate [Proair Hfa] 1 - 2 puff INHALATION Q4H PRN PRN 02/16/14 [History Last Taken Unknown] fluticasone propionate 2 spray NASAL QHS 02/16/14 [History Last Taken Unknown] oxybutynin chloride 15 mg PO DAILY 02/16/14 [History Last Taken Unknown] oxycodone-acetaminophen 1 tab PO BID 02/16/14 [History Last Taken Unknown] potassium chloride 60 meq PO BID 02/16/14 [History Last Taken Unknown] pregabalin [Lyrica] 150 mg PO TID 02/16/14 [History Last Taken Unknown] ropinirole [Requip] 0.5 mg PO BID 02/16/14 [History Last Taken Unknown] Basaglar Kwikpen U-100 20 units MISCELLANEOUS DAILY 05/07/19 [History Last Taken Unknown] furosemide 40 mg PO DAILY 05/07/19 [History Last Taken Unknown] acetaminophen 650 mg PO Q4H PRN 09/09/21 [History Last Taken Unknown] ascorbic acid (vitamin C) [Vitamin C] 500 mg PO BID 09/09/21 [History Last Taken Unknown] atorvastatin [Lipitor] 10 mg PO QHS 09/09/21 [History Last Taken Unknown] bisacodyl 10 mg TN DAILY PRN 09/09/21 [History Last Taken Unknown] budesonide 0.5 mg INHALATION BID 09/09/21 [History Last Taken Unknown] cholecalciferol (vitamin D3) [Vitamin D3] 50 mcg PO BID 09/09/21 [History Last Taken Unknown] diltiazem HCl 360 mg PO DAILY 09/09/21 [History Last Taken Unknown] ferrous sulfate [iron] 325 mg PO BID 09/09/21 [History Last Taken Unknown] guaifenesin 200 mg PO Q4H PRN 09/09/21 [History Last Taken Unknown] melatonin 3 mg PO QHS 09/09/21 [History Last Taken Unknown] metformin 1,000 mg PO DAILY 09/09/21 [History Last Taken Unknown] metformin 500 mg PO QHS 09/09/21 [History Last Taken Unknown] methenamine hippurate 1 g PO BID 09/09/21 [History Last Taken Unknown] metolazone 2.5 mg PO MOFR 09/09/21 [History Last Taken Unknown] modafinil 200 mg PO DAILY 09/09/21 [History Last Taken Unknown] multivitamin 1 tab PO DAILY 09/09/21 [History Last Taken Unknown] nystatin 1 applic TOPICAL BID 09/09/21 [History Last Taken Unknown] omeprazole 40 mg PO DAILY 09/09/21 [History Last Taken Unknown] oxybutynin chloride 5 mg PO QHS 09/09/21 [History Last Taken Unknown] rivaroxaban 2.5 mg PO QHS 09/09/21 [History Last Taken Unknown] spironolactone 50 mg PO DAILY 09/09/21 [History Last Taken Unknown] venlafaxine [Effexor] 75 mg PO DAILY 09/09/21 [History Last Taken Unknown] Allergy/AdvReac Type Severity Reaction Status Date / Time aspirin Allergy Hives Verified 09/09/21 01:12 latex Allergy Rash Verified 09/09/21 01:12 Penicillins Allergy Hives Verified 09/09/21 01:12 Sulfa (Sulfonamide Allergy Hives Verified 09/09/21 01:12 Antibiotics) Family History Mother Heart disease Father Heart disease Surgical History History of hysterectomy Social History housing: [facility] Smoking Status: Never smoker alcohol intake: never substance use type: does not use ROS Constitutional Constitutional: Denies chills or fever(s) Cardiovascular Cardiovascular: Denies chest pain Respiratory/Chest Respiratory/Chest: Denies cough or dyspnea Gastrointestinal Gastrointestinal: Denies abdominal pain Physical Exam Const alert, oriented x3 and no apparent distress General Appearance: cooperative HEENT normocephalic and head/scalp atraumatic Eyes PERRL and EOMs intact bilaterally Resp clear to auscultation bilaterally Cardio Rate: regular rate Rhythm: regular rhythm GI soft to palpation and non-tender GI Narrative: Patient is morbidly obese Palpation: Negative for tender or guarding Lab / Micro Data Result Diagrams: 09/11/21 05:15 09/11/21 05:15 Labs: Laboratory Results - last 24 hr 09/10/21 21:14: POC Glucose 156 H 09/11/21 05:15: WBC 3.9 L, RBC 3.48 L, Hgb 9.8 L, Hct 30.3 L, MCV 87.1, MCH 28.2, MCHC 32.3, RDW Std Deviation 59.5 H, RDW Coeff of Melissa 18.5 H, Plt Count 111 L, MPV 10.4, Immature Gran % (Auto) 0.800, Neut % (Auto) 70.4 H, Lymph % (Auto) 18.1 L, [place] % (Auto) 7.6, Eos % (Auto) 2.3, Baso % (Auto) 0.8, Absolute Neuts (auto) 2.8, Absolute Lymphs (auto) 0.71 L, Nucleated RBC % 0 09/11/21 05:15: Sodium 138, Potassium 4.5, Chloride 107, Carbon Dioxide 25.0, Anion Gap 6, BUN 14, Creatinine 0.59, Estim Creat Clear Calc 39.63, Est GFR (MDRD) Af Amer 129, Est GFR (MDRD) Non-Af 106, BUN/Creatinine Ratio 23.8 H, Glucose 94, Calcium 8.4 L, Total Bilirubin 0.90, Direct Bilirubin 0.37 H, AST 30, ALT 86 H, Alkaline Phosphatase 256 H, Total Protein 6.0 L, Albumin 2.2 L, Globulin 3.8 09/11/21 06:48: POC Glucose 90 09/11/21 16:25: POC Glucose 185 H Radiology Impression MRCP 09/11/21 08:00 IMPRESSION: 1. Gallbladder sludge and gallstones. No MRI evidence of acute cholecystitis. 2. Extrahepatic more than intrahepatic bile duct dilation with potential choledocholithiasis versus averaging artifact just above the level of the ampulla. 3. Mild splenomegaly. Electronically Signed: Kendall Harrell MD (Brooks) at 11:09 EST Reading Location ID and State: / [place] , Service support ,
--- NOTE | 2021-09-11 19:40 | EX.PCM.CON.G ---
HPI Consult Data Date of Consult: 09/11/21 HPI Narrative HPI Narrative: SANDY ORONA, is a 71 F who presents from intermediate with confusion. The patient says that she has been having intermittent abdominal pain over the last several weeks as she was told that she had sludge in her gallbladder and that her gallbladder was sluggish. She has a past medical history of chronic iron deficiency anemia, obstructive sleep apnea, bilateral lower extremity edema with lymphedema , morbid obesity. In the ED she was discovered to be normotensive but tachycardic and satting 80 to 85% on room air. She was given 2 L of oxygen went up to 95% fair she was afebrile in the ED. Biochemical analysis has shown a white blood cell count of 17.7, hemoglobin 11.9, platelet count of 146. It had also shown a bilirubin of 3.7, AST 252 ALT 214 alkaline phosphatase 368, lipase of 788. An MRCP was ordered after a CT scan abdomen pelvis had shown possible choledocholithiasis. An MRCP shows what is thought to be a filling defect in the common bile duct along with a dilated common bile duct, common hepatic duct and intrahepatic ducts. She was started on Levaquin and Flagyl. At this time she is on room air and satting 95% without any breathing problems. FOR[facility]LY [facility] Medical History Anxiety and depression Benign hypertension Chronic acquired lymphedema Chronic back pain Diabetic ulcer of left foot Diabetic ulcer of right foot HLD (hyperlipidemia) RILEY (obstructive sleep apnea) PAF (paroxysmal atrial fibrillation) RLS (restless legs syndrome) Type 2 diabetes mellitus Venous stasis ulcer of right thigh with fat layer exposed Venous ulcer of left lower extremity with varicose veins Venous ulcer of right lower extremity with varicose veins Home Medications Morphine [Morphine Ir] 50 mg PO BID 02/16/14 [History Last Taken Unknown] albuterol sulfate [Proair Hfa] 1 - 2 puff INHALATION Q4H PRN PRN 02/16/14 [History Last Taken Unknown] fluticasone propionate 2 spray NASAL QHS 02/16/14 [History Last Taken Unknown] oxybutynin chloride 15 mg PO DAILY 02/16/14 [History Last Taken Unknown] oxycodone-acetaminophen 1 tab PO BID 02/16/14 [History Last Taken Unknown] potassium chloride 60 meq PO BID 02/16/14 [History Last Taken Unknown] pregabalin [Lyrica] 150 mg PO TID 02/16/14 [History Last Taken Unknown] ropinirole [Requip] 0.5 mg PO BID 02/16/14 [History Last Taken Unknown] Basaglar Kwikpen U-100 20 units MISCELLANEOUS DAILY 05/07/19 [History Last Taken Unknown] furosemide 40 mg PO DAILY 05/07/19 [History Last Taken Unknown] acetaminophen 650 mg PO Q4H PRN 09/09/21 [History Last Taken Unknown] ascorbic acid (vitamin C) [Vitamin C] 500 mg PO BID 09/09/21 [History Last Taken Unknown] atorvastatin [Lipitor] 10 mg PO QHS 09/09/21 [History Last Taken Unknown] bisacodyl 10 mg [place] DAILY PRN 09/09/21 [History Last Taken Unknown] budesonide 0.5 mg INHALATION BID 09/09/21 [History Last Taken Unknown] cholecalciferol (vitamin D3) [Vitamin D3] 50 mcg PO BID 09/09/21 [History Last Taken Unknown] diltiazem HCl 360 mg PO DAILY 09/09/21 [History Last Taken Unknown] ferrous sulfate [iron] 325 mg PO BID 09/09/21 [History Last Taken Unknown] guaifenesin 200 mg PO Q4H PRN 09/09/21 [History Last Taken Unknown] melatonin 3 mg PO QHS 09/09/21 [History Last Taken Unknown] metformin 1,000 mg PO DAILY 09/09/21 [History Last Taken Unknown] metformin 500 mg PO QHS 09/09/21 [History Last Taken Unknown] methenamine hippurate 1 g PO BID 09/09/21 [History Last Taken Unknown] metolazone 2.5 mg PO MOFR 09/09/21 [History Last Taken Unknown] modafinil 200 mg PO DAILY 09/09/21 [History Last Taken Unknown] multivitamin 1 tab PO DAILY 09/09/21 [History Last Taken Unknown] nystatin 1 applic TOPICAL BID 09/09/21 [History Last Taken Unknown] omeprazole 40 mg PO DAILY 09/09/21 [History Last Taken Unknown] oxybutynin chloride 5 mg PO QHS 09/09/21 [History Last Taken Unknown] rivaroxaban 2.5 mg PO QHS 09/09/21 [History Last Taken Unknown] spironolactone 50 mg PO DAILY 09/09/21 [History Last Taken Unknown] venlafaxine [Effexor] 75 mg PO DAILY 09/09/21 [History Last Taken Unknown] Allergy/AdvReac Type Severity Reaction Status Date / Time aspirin Allergy Hives Verified 09/09/21 01:12 latex Allergy Rash Verified 09/09/21 01:12 Penicillins Allergy Hives Verified 09/09/21 01:12 Sulfa (Sulfonamide Allergy Hives Verified 09/09/21 01:12 Antibiotics) Family History Mother Heart disease Father Heart disease Surgical History History of hysterectomy Social History housing: intermediate Smoking Status: Never smoker alcohol intake: never substance use type: does not use ROS Review of Systems ROS Unobtainable: other Constitutional Constitutional: Denies fatigue, fever(s), poor appetite, weight gain or weight loss ENT HEENT: Denies mouth lesions Cardiovascular Cardiovascular: Denies abdominal bloating, abdominal edema or abdominal pain Respiratory/Chest Respiratory/Chest: Denies change in mental status, change in phlegm color, chest congestion or chest tightness Gastrointestinal Gastrointestinal: Denies belching, bloating, change in bowel habits, change in stool character, chewing difficulty, coffee ground emesis, constipation, cramping, diarrhea, dyspepsia, dysphagia, early satiety, excessive flatus, fecal incontinence, heartburn, hematemesis, hematochezia, hemorrhoids, loose stools, melena, nausea, odynophagia, rectal bleeding, tenesmus, vomiting or weight changes Genitourinary Genitourinary: Denies abdominal discomfort, burning urination or itching Musculoskeletal Musculoskeletal: Reports as per HPI; Denies muscle weakness or myalgias Integumentary Integumentary: Denies jaundice Neurologic Neurologic: Denies lack of coordination or weakness Psychiatric Psychiatric: Denies confusion, depression, memory loss, mood swings, paranoia or suicidal ideation Endocrine Endocrinology: Denies systems reviewed and no addt'l complaints, except as documented Hematologic/Lymphatic Hematologic/Lymphatic: Denies anemia, easy bleeding, easy bruising or lymphadenopathy Allergic/Immunologic Allergic/Immunologic: Denies systems reviewed and no addt'l complaints, except as documented Physical Exam Const alert General Appearance: cooperative Orientation / Consciousness: oriented to person HEENT hearing grossly normal bilaterally Head and Scalp: normal to inspection Face and Sinus: face symmetric Nose: external nose normal Mouth: oral and palatal mucosa normal Eyes conjunctivae normal General Eye: normal appearance of both eyes Neck full ROM General: normal visual inspection Lymph Lymphatic: no lymphadenopathy noted Chest inspection of chest normal and palpation of chest normal Chest: symmetrical chest wall rise Resp normal respiratory effort Effort and Inspection: able to speak in complete sentences Cardio regular rate GI non-distended Percussion: normal to percussion Rectal Exam: deferred Neuro Speech: speech normal Gait (Neuro): normal gait Lab / Micro Data Result Diagrams: 09/11/21 05:15 09/11/21 05:15 Labs: Laboratory Results - last 24 hr 09/10/21 21:14: POC Glucose 156 H 09/11/21 05:15: WBC 3.9 L, RBC 3.48 L, Hgb 9.8 L, Hct 30.3 L, MCV 87.1, MCH 28.2, MCHC 32.3, RDW Std Deviation 59.5 H, RDW Coeff of Melissa 18.5 H, Plt Count 111 L, MPV 10.4, Immature Gran % (Auto) 0.800, Neut % (Auto) 70.4 H, Lymph % (Auto) 18.1 L, [place] % (Auto) 7.6, Eos % (Auto) 2.3, Baso % (Auto) 0.8, Absolute Neuts (auto) 2.8, Absolute Lymphs (auto) 0.71 L, Nucleated RBC % 0 09/11/21 05:15: Sodium 138, Potassium 4.5, Chloride 107, Carbon Dioxide 25.0, Anion Gap 6, BUN 14, Creatinine 0.59, Estim Creat Clear Calc 39.63, Est GFR (MDRD) Af Amer 129, Est GFR (MDRD) Non-Af 106, BUN/Creatinine Ratio 23.8 H, Glucose 94, Calcium 8.4 L, Total Bilirubin 0.90, Direct Bilirubin 0.37 H, AST 30, ALT 86 H, Alkaline Phosphatase 256 H, Total Protein 6.0 L, Albumin 2.2 L, Globulin 3.8 02/14/22 06:48: POC Glucose 90 09/11/21 16:25: POC Glucose 185 H Radiology Impression MRCP 09/11/21 08:00 IMPRESSION: 1. Gallbladder sludge and gallstones. No MRI evidence of acute cholecystitis. 2. Extrahepatic more than intrahepatic bile duct dilation with potential choledocholithiasis versus averaging artifact just above the level of the ampulla. 3. Mild splenomegaly. Electronically Signed: Kendall Harrell MD ([place]) at 11:09 EST , Assessment & Plan Assessment/Plan (1) Choledocholithiasis: PLAN: Patient examining all the signs of ascending cholangitis with a cholestatic hepatitis, jaundice and pancreatitis. She should undergo ERCP with stone removal and possible stent placement. She is explained alternatives, risk, benefits include not withstanding bleeding, infection, sepsis, perforation, need for emergent urgent . She have an ASA of 3. (2) Pancreatitis: PLAN: Pancreatitis is likely secondary to gallstone pancreatitis. Recommend IV fluids. N.p.o. past midnight. No anticoagulation as it can be converted to hemorrhagic pancreatitis. Recommend SCDs for DVT prophylaxis. Charges/Coding Visit Charges Inpatient E&M: 18988 Init Hosp L3
[2021-09-11] MEDS: Pramipexole Di-HCl 0.125 MG Tablet PO (22:21)
[2021-09-11] MEDS: Atorvastatin Calcium 10 MG Tablet PO (22:22)
[2021-09-11] MEDS: Oxybutynin 5 MG Tablet PO (22:22)
[2021-09-11] MEDS: Fluticasone 0.05% 1 SPRAY NASAL.SRY 2 SPRAY NASAL (22:23)
[2021-09-11 22:51] LABS: Bedside Glucose 156 mg/dL (70-110)
[2021-09-12] VITALS (17 sets, daily range): BP systolic 102–140; BP diastolic 47–81; PULSE 72–94; RESP 12–18; TEMP 36.7–37.4; O2SAT 91–99; BMI 41.7
[2021-09-12] MEDS: 0.9% Normal Saline 1,000 ML 150 ML IV ×3 (02:35→17:32)
[2021-09-12 05:03] LABS: Absolute Lymphocyte Count 0.88 X10^3/uL (0.83-4.51); Absolute Neutrophil Count 2.9 X10^3/uL (2.0-7.7); Basophil# 0.04 X10^3/uL; Basophil% 0.9 % (0-1); Eosinophil# 0.09 X10^3/uL; Hematocrit 32.3 % (37-47); Hemoglobin 10.8 g/dL (12.0-15.0); Lymphocyte # 0.88 X10^3/ul (0.83-4.51); Mean Corp Hgb Conc 33.4 g/dL (32-36); Mean Corpuscular Hgb 28.6 pg (27.0-32.0); Mean Corpuscular Volume 85.4 fL (81-99); Mean Platelet Vol. 10.7 fl (6.2-12.0); Monocyte% 11.3 % (0-10); NRBC Flagged by Analyzer 0 % (0-5); Neutrophil # 2.88 X10^3/uL (2.7-7.7); Neutrophil % 65.3 % (47-70); Platelet Count 142 K/mm3 (150-450); RBC Distribution Width CV 17.8 % (11.6-14.6); RBC Distribution Width SD 55.5 fl (35.1-43.9); Red Blood Count 3.78 M/mm3 (4.2-5.4); White Blood Count 4.4 K/mm3 (4.4-11.0)
[2021-09-12 05:17] LABS: International Normalized Ratio 1.1; Prothrombin Time (Protime)PT. 13.6 SECONDS (11.7-14.9)
[2021-09-12 05:18] LABS: Partial Thromboplast Time 33.7 Seconds (24.1-36.2)
[2021-09-12 05:28] LABS: ALB/GLOB Ratio 0.6 RATIO (0.9-2.4); AST(SGOT) 19 U/L (15-37); Alanine Aminotransfer ALT/SGPT 63 U/L (13-56); Albumin, Serum 2.4 g/dL (3.2-5.0); Alkaline Phosphatase 235 U/L (45-117); Anion Gap 6 (5-15); BUN 13 mg/dL (7-18); BUN/Creat Ratio 19.2 RATIO (10-20); Bilirubin, Direct 0.41 mg/dL (0.00-0.30); Calcium,Total 8.6 mg/dL (8.5-10.1); Chloride 103 mmol/L (98-107); Creatinine, Serum 0.68 mg/dL (0.55-1.02); EST Glomerular Filtration Rate 91 mL/min (>60); Est Glom Filt Rate - Afr Amer 110 mL/min (>60); Estimated Creatinine Clearance 39.63 ml/min; Globulin 3.8 g/dL (2.2-4.2); Glucose 105 mg/dL (74-106); Potassium 4.3 mmol/L (3.5-5.1); Protein, Total 6.2 g/dL (6.4-8.2); Sodium Level 137 mmol/L (136-145)
[2021-09-12 06:36] LABS: Bedside Glucose 103 mg/dL (70-110)
[2021-09-12] MEDS: Ipratropium/Albuterol Sulfate 3 ML AMPUL.NEB INHALATION ×3 (07:11→19:44)
[2021-09-12 08:30] LABS: Hemoglobin A1c 6.5 % (3.8-5.6)
[2021-09-12] MEDS: Menthol/Lanolin/Calamine/Znox 113 GM Tube 1 APPLIC TOPICAL ×2 (08:55→21:11)
[2021-09-12] MEDS: Spironolactone 50 MG Tablet PO (08:55)
[2021-09-12] MEDS: Methenamine Hippurate 1 GM Tablet PO ×2 (08:56→21:13)
[2021-09-12] MEDS: Venlafaxine HCl 75 MG Tablet PO (08:56)
[2021-09-12] MEDS: Furosemide 40 MG Tablet PO (08:56)
[2021-09-12] MEDS: dilTIAZem CD 180 MG Capsule 360 MG PO (08:56)
[2021-09-12] MEDS: Oxybutynin 5 MG Tablet 15 MG PO (08:56)
[2021-09-12] MEDS: morphine SR 15 MG Tablet 45 MG PO ×2 (08:56→21:31)
[2021-09-12] MEDS: Modafinil 200 MG Tablet PO (08:57)
[2021-09-12] MEDS: Nystatin Powder 15gm Bottle 1 APPLIC TOPICAL ×2 (08:57→21:18)
[2021-09-12] MEDS: Pantoprazole Sodium 40 MG Tablet PO ×2 (08:57→21:18)
[2021-09-12 11:36] LABS: Bedside Glucose 115 mg/dL (70-110)
--- NOTE | 2021-09-12 11:42 | CASEMGMT ---
Social Work Note Pt is not medically cleared for discharge. KRISTIN faxed updated clinicals to [facility]. KRISTIN wrote on fax coversheet that pt is not medically cleared for discharge today, likely tomorrow. Plan: Return to [facility] skilled when medically cleared Jacquelyn Venegas MSW, BANK VAULT CUSTODIAN
--- NOTE | 2021-09-12 12:08 | CASEMGMT ---
Call received from Nancy Coe pt's home care manager through [facility]. Nancy states pt was originally from [place] [facility] prior to going to [facility] for skilled services. Nancy can be reached at [phone] for transitions/continuity of care communications. Shwetha Terry RN CM
--- NOTE | 2021-09-12 14:04 | PN.HOSP_ITS ---
Subjective Subjective Feels well. Denies abdominal pain. Objective Data Objective Data Vital Signs: Vital Signs Temp Pulse Resp BP Pulse Ox 36.7 C 85 18 124/65 H 94 09/12/21 08:32 09/12/21 11:20 09/12/21 11:20 09/12/21 08:32 09/12/21 08:32 Oxygen Flow Rate (L/min) 4 Oxygen Delivery Method Room Air Weight: 103.4 kg Body Mass Index (BMI) 42.2 Intake & Output: Intake and Output for Last 24 Hours 09/10/21 09/11/21 09/12/21 23:59 23:59 23:59 Intake Total 4262.5 / 4762.5 3595.5 / 3895.5 1300 / 1300 Output Total 3550 / 4150 2900 / 3700 1400 / 1400 Balance 712.5 / 612.5 695.5 / 195.5 -100 / -100 Lab / Micro Data Result Diagrams: 09/12/21 04:09 09/12/21 04:09 Labs: Laboratory Results - last 24 hr 09/11/21 16:25: POC Glucose 185 H 09/11/21 22:11: POC Glucose 156 H 09/12/21 04:09: WBC 4.4, RBC 3.78 L, Hgb 10.8 L, Hct 32.3 L, MCV 85.4, MCH 28.6, MCHC 33.4, RDW Std Deviation 55.5 H, RDW Coeff of Melissa 17.8 H, Plt Count 142 L, MPV 10.7, Immature Gran % (Auto) 0.500, Neut % (Auto) 65.3, Lymph % (Auto) 20.0, [place] % (Auto) 11.3 H, Eos % (Auto) 2.0, Baso % (Auto) 0.9, Absolute Neuts (auto) 2.9, Absolute Lymphs (auto) 0.88, Nucleated RBC % 0 09/12/21 04:09: Sodium 137, Potassium 4.3, Chloride 103, Carbon Dioxide 28.0, Anion Gap 6, BUN 13, Creatinine 0.68, Estim Creat Clear Calc 39.63, Est GFR (MDRD) Af Amer 110, Est GFR (MDRD) Non-Af 91, BUN/Creatinine Ratio 19.2, Glucose 105, Calcium 8.6, Total Bilirubin 0.80, Direct Bilirubin 0.41 H, AST 19, ALT 63 H, Alkaline Phosphatase 235 H, Total Protein 6.2 L, Albumin 2.4 L, Globulin 3.8, Albumin/Globulin Ratio 0.6 L 09/12/21 04:09: PT 13.6, INR 1.1, APTT 33.7 09/12/21 04:09: Hemoglobin A1c 6.5 H 09/12/21 06:26: POC Glucose 103 09/12/21 11:28: POC Glucose 115 H Micro: Microbiology 09/09/21 01:46 Urine, Random Legionella Antigen - Final 09/09/21 01:46 Urine, Random Streptococcus pneumoniae Antigen (M - Final 09/09/21 01:40 Nasal Secretion SARS-CoV-2 Antigen (Rapid) - Final Physical Exam Const alert and no apparent distress Resp normal respiratory effort, no retractions, no use of accessory muscles and clear to auscultation bilaterally Cardio regular rate, regular rhythm, S1 normal heart sound and S2 normal heart sound GI normal to inspection, nondistended, normoactive bowel sounds, soft to palpation, non-tender and non-distended Extremity normal to inspection Psych affect normal Assessment & Plan Assessment/Plan (1) Choledocholithiasis: (2) Cholelithiasis: QUALIFIERS: Cholelithiasis location: gallbladder Cholecystitis presence: without cholecystitis Biliary obstruction: with biliary obstruction Qualified Code(s): K80.21 - Calculus of gallbladder without cholecystitis with obstruction (3) Acute respiratory failure with hypoxia: PLAN: 1. choledocholithiasis ERCP today 2. Cholelithiasis gallstone pancreatitis NQSIP performed patient higher than average risk for serious complications, any complications, pneumonia, surgical sites infection, urinary tract infection, VTE, renal failure, readmission, return to the OR discharged to nursing pt medically optimized to proceed with surgery consult surgery for eval for lap lawanda. 3. Gallstone pancreatitis as above 4. Metabolic encephalopathy resolved may have been due to hypoxia upon presentation and medication (takes morphine chronically) 5. PAF hold rivaroxaban for potential intervention 6. Acute hypoxic respiratory failure on levofloxacin doubt pneumonia suspect due to obesity hypoventilation, RILYE strep and legionella antigens negative. 7. VTE prophylaxis: SCDs for now. Charges/Coding Visit Charges Inpatient E&M: 92256 Subs Hosp L2
--- NOTE | 2021-09-12 16:00 | RAD_ITS ---
CLINICAL HISTORY: Female, 71 years old. Cholelithiasis. Biliary ductal dilatation. PROCEDURE: ERCP FLUOROSCOPY TIME (if supplied): 85.1 seconds. Cumulative dose: 27 mGy TECHNIQUE: Fluoroscopic guidance was provided procedure room during an ERCP. 9 intraprocedural images were presented for interpretation. These demonstrate cannulization of the CBD with injection of contrast. There is mild dilatation of the intra and extrahepatic bile ducts. There is evidence of balloon stripping of the CBD. Please refer to the procedural report for further details. RAD/ERCP Biliary/Pancreas IMPRESSION: Fluoroscopy provided during an ERCP. Electronically Signed: Laz Harrison DO at 22:05 EST ,
--- NOTE | 2021-09-12 16:45 | OP.ERCP_ITS ---
Patient Name: Rsoelia Bal Procedure Date: 09/12/2021 3:55 PM Date of : 1950 Age: 71 Procedure: ERCP Indications: Bile duct stone(s) Providers: Rj Irizarry DO Medicines: General Anesthesia Patient Profile: This is a 71 year old female. Refer to note in patient chart for documentation of history and physical. Patient has symptoms. This patient has no history of previous ERCP. Complications: No immediate complications. Procedure: Pre-Anesthesia Assessment: - Prior to the procedure, a History and Physical was performed, and patient medications and allergies were reviewed. The patient is competent. The risks and benefits of the procedure and the sedation options and risks were discussed with the patient. All questions were answered and informed consent was obtained. Patient identification and proposed procedure were verified by the physician in the pre-procedure area. Mental Status Examination: alert and oriented. Airway Examination: normal oropharyngeal airway and neck mobility. Respiratory Examination: clear to auscultation. CV Examination: normal. Prophylactic Antibiotics: The patient does not require prophylactic antibiotics. Prior Anticoagulants: The patient has taken no previous anticoagulant or antiplatelet agents. After reviewing the risks and benefits, the patient was deemed in satisfactory condition to undergo the procedure. The anesthesia plan was to use general anesthesia. Immediately prior to administration of medications, the patient was re-assessed for adequacy to receive sedatives. The heart rate, respiratory rate, oxygen saturations, blood pressure, adequacy of pulmonary ventilation, and response to care were monitored throughout the procedure. The physical status of the patient was re-assessed after the procedure. After obtaining informed consent, the scope was passed under direct vision. Throughout the procedure, the patient's blood pressure, pulse, and oxygen saturations were monitored continuously. The duodenoscope was introduced through the mouth, and advanced to the duodenum and used to inject contrast into the bile duct. The ERCP was accomplished without difficulty. The patient tolerated the procedure well. Moderate Sedation: Moderate (conscious) sedation was administered by the endoscopy nurse and supervised by the endoscopist. The patient's oxygen saturation, heart rate, blood pressure and response to care were monitored. Total physician intraservice time was 15 minutes. Scope In: 4:10:27 PM Scope Out: 4:24:15 PM Total Procedure Duration Time 0 hours 13 minutes 48 seconds Findings: The technical sales consultant film was normal. The esophagus was successfully intubated under direct vision. The scope was advanced to a normal major papilla in the descending duodenum without detailed examination of the pharynx, larynx and associated structures, and upper GI tract. The upper GI tract was grossly normal. The bile duct was deeply cannulated with the short-nosed traction sphincterotome. Contrast was injected. I personally interpreted the bile duct images. There was brisk flow of contrast through the ducts. Opacification of the main bile duct was successful. The maximum diameter of the ducts was 10 mm. The lower third of the main bile duct contained one stone, which was 6 mm in diameter. The main bile duct was diffusely dilated, with a stone causing an obstruction. The largest diameter was 5 mm. A straight Roadrunner wire was passed into the biliary tree. A 5 mm biliary sphincterotomy was made with a traction (standard) sphincterotome using ERBE electrocautery. There was no post-sphincterotomy bleeding. The biliary tree was swept with a 15 mm balloon starting at the lower third of the main duct. Sludge was swept from the duct. All stones were removed. One 10 Fr by 5 cm stent was placed 5 cm into the common bile duct. Bile flowed through the stent. The stent was in good position. Impression: - The entire main bile duct was dilated, with a stone causing an obstruction. - Choledocholithiasis was found. Complete removal was accomplished by biliary sphincterotomy and balloon extraction. - A biliary sphincterotomy was performed. - The biliary tree was swept. - One stent was placed into the common bile duct. Procedure Code(s): --- Professional --- 11312, Endoscopic retrograde cholangiopancreatography (ERCP); with placement of endoscopic stent into biliary or pancreatic duct, including pre- and post-dilation and guide wire passage, when performed, including sphincterotomy, when performed, each stent [id number], Endoscopic retrograde cholangiopancreatography (ERCP); with removal of calculi/debris from biliary/pancreatic duct(s) 34771, Endoscopic catheterization of the biliary ductal system, radiological supervision and interpretation G0500, Moderate sedation services provided by the same physician or other qualified health patient care technician instructor performing a gastrointestinal endoscopic service that sedation supports, requiring the presence of an independent trained observer to assist in the monitoring of the patient's level of consciousness and physiological status; initial 15 minutes of intra-service time; patient age 5 years or older (additional time may be reported with 64450, as appropriate) CPT copyright 2017 [employer]. All rights reserved. The codes documented in this report are preliminary and upon obstetrical anesthesiologist review may be revised to meet current compliance requirements. Rj Irizarry DO 09/12/2021 4:45:23 PM This report has been signed electronically. Number of Addenda: 0 Note Initiated On: 09/12/2021 3:55 PM
--- NOTE | 2021-09-12 16:45 | OP.CCLET_ITS ---
09/12/2021 Rosa Silva Md Re : ERCP procedure for Roselia Bal Dear Dr. Silva This procedure was performed on Sunday, September 12, 2021. My impressions and recommendations are as follows: Impressions : - The entire main bile duct was dilated, with a stone causing an obstruction. - Choledocholithiasis was found. Complete removal was accomplished by biliary sphincterotomy and balloon extraction. - A biliary sphincterotomy was performed. - The biliary tree was swept. - One stent was placed into the common bile duct. Recommendations : My findings are described in the full procedure note, which is enclosed. If I can be of further assistance, please feel free to contact me at . Sincerely, Rj Irizarry, 09/12/2021 4:45:23 PM This report has been signed electronically.
[2021-09-12 17:51] LABS: Bedside Glucose 128 mg/dL (70-110)
[2021-09-12] MEDS: Oxybutynin 5 MG Tablet PO (21:12)
[2021-09-12] MEDS: Insulin Lispro 100 UNIT/ML INSULN.PEN SC (21:13)
[2021-09-12] MEDS: Potassium Chloride Oral Tablet 20 MEQ 60 MEQ PO (21:14)
[2021-09-12] MEDS: Atorvastatin Calcium 10 MG Tablet PO (21:17)
[2021-09-12] MEDS: Pramipexole Di-HCl 0.125 MG Tablet PO (21:18)
[2021-09-12] MEDS: Fluticasone 0.05% 1 SPRAY NASAL.SRY 2 SPRAY NASAL (21:24)
[2021-09-12 21:30] LABS: Bedside Glucose 316 mg/dL (70-110)
[2021-09-12] MEDS: Pregabalin 50 MG Capsule 100 MG PO (21:31)
[2021-09-13] VITALS (9 sets, daily range): BP systolic 107–114; BP diastolic 53–67; PULSE 63–77; RESP 12–21; TEMP 35.7–36.8; O2SAT 93–99
[2021-09-13] MEDS: 0.9% Normal Saline 1,000 ML 150 ML IV ×2 (00:15→05:43)
[2021-09-13 05:06] LABS: Bedside Glucose 247 mg/dL (70-110)
[2021-09-13] MEDS: Insulin Lispro 100 UNIT/ML INSULN.PEN SC ×3 (05:43→16:00)
[2021-09-13] MEDS: Pregabalin 50 MG Capsule 100 MG PO ×2 (05:43→14:46)
[2021-09-13 06:23] LABS: ALB/GLOB Ratio 0.6 RATIO (0.9-2.4); AST(SGOT) 11 U/L (15-37); Alanine Aminotransfer ALT/SGPT 47 U/L (13-56); Albumin, Serum 2.5 g/dL (3.2-5.0); Alkaline Phosphatase 228 U/L (45-117); Anion Gap 6 (5-15); BUN 18 mg/dL (7-18); BUN/Creat Ratio 21.5 RATIO (10-20); Calcium,Total 8.6 mg/dL (8.5-10.1); Chloride 101 mmol/L (98-107); Creatinine, Serum 0.84 mg/dL (0.55-1.02); EST Glomerular Filtration Rate 71 mL/min (>60); Est Glom Filt Rate - Afr Amer 86 mL/min (>60); Estimated Creatinine Clearance 47.18 ml/min; Globulin 4.3 g/dL (2.2-4.2); Glucose 267 mg/dL (74-106); Potassium 4.4 mmol/L (3.5-5.1); Protein, Total 6.8 g/dL (6.4-8.2); Sodium Level 134 mmol/L (136-145)
[2021-09-13] MEDS: Ipratropium/Albuterol Sulfate 3 ML AMPUL.NEB INHALATION (07:25)
[2021-09-13] MEDS: Furosemide 40 MG Tablet PO (09:11)
[2021-09-13] MEDS: Methenamine Hippurate 1 GM Tablet PO (09:12)
[2021-09-13] MEDS: Oxybutynin 5 MG Tablet 15 MG PO (09:12)
[2021-09-13] MEDS: Venlafaxine HCl 75 MG Tablet PO (09:12)
[2021-09-13] MEDS: Pantoprazole Sodium 40 MG Tablet PO (09:12)
[2021-09-13] MEDS: dilTIAZem CD 180 MG Capsule 360 MG PO (09:12)
[2021-09-13] MEDS: Potassium Chloride Oral Tablet 20 MEQ 60 MEQ PO (09:12)
[2021-09-13] MEDS: Nystatin Powder 15gm Bottle 1 APPLIC TOPICAL (09:13)
[2021-09-13] MEDS: Spironolactone 50 MG Tablet PO (09:13)
[2021-09-13] MEDS: Ferrous Sulfate 325 MG Tablet PO (09:13)
[2021-09-13] MEDS: Menthol/Lanolin/Calamine/Znox 113 GM Tube 1 APPLIC TOPICAL (09:14)
[2021-09-13] MEDS: levoFLOXacin IV 750 MG/150 ML BAG 100 MG IV (09:18)
[2021-09-13] MEDS: morphine SR 15 MG Tablet 45 MG PO (09:22)
[2021-09-13] MEDS: Modafinil 200 MG Tablet PO (09:23)
--- NOTE | 2021-09-13 09:53 | CASEMGMT ---
Social Work Note Pt to discharge back to [facility] skilled today. SW placed a call to Tash at [facility] and left message that pt is to discharge back to [facility] today. Plan: Return to [facility] skilled today Jacquelyn Venegas SPECIAL EDUCATION RESOURCE ROOM TEACHER, POINT OF CARE SPECIALIST
[2021-09-13 11:00] LABS: Bedside Glucose 371 mg/dL (70-110)
--- NOTE | 2021-09-13 12:30 | CASEMGMT ---
Social Work Note SW updated that pt stating she was at [facility] and then most recent from [facility] and she is not sure where she is going back to. SW in to speak with pt. SW spoke with pt about discharge plans, how pt would benefit from returning to [facility] where she can get continued therapy. Pt states that she was not able to go to [facility] due to insurance so that is why she had to go to [facility]. Pt agreed that receiving additional therapy would be beneficial. SW informed pt that she can return to [facility] today, continue to be skilled, and then decide when to transition to [facility]. Pt states understanding, states she really likes the apartments at [facility]. SW encouraged pt to speak with [facility] regarding transition to [facility]. Pt then asked about Code Status. SW informed pt that this worker is not sure what her code status is, would need to check. SW informed pt that this worker can also provide education on different code status. Pt agreeable to educating regarding code status. Pt agreeable to returning to [facility] skilled today. SW to fax discharge paperwork once completed. Plan: Return to [facility] skilled today Jacquelyn Venegas KNITTER HAND, CHALK CUTTER
--- NOTE | 2021-09-13 12:35 | PCM.DC ---
Discharge Instructions Diet Discharge Diet: No restrictions Activity Discharge Activity: Return to Normal Activity Dressing / Incision Call your doctor if you observe: Fever of 101 or Higher and - (abdominal pain) Follow Up Care Test Results: Test results from this visit will be discussed in further detail at your follow-up appointment, if applicable. Discharge Plan Admission Admit Date/Time: 09/09/21 04:08 Primary Reason for Your Visit: gallstone pancreatitis Attending Provider: Peña Bailey Primary Care Provider: Rosa Silva Consulting Providers: Malachi Boswell ; Friend,Rj Discharge Orders/Prescriptions Prescriptions: New levofloxacin 750 mg tablet 750 mg PO DAILY Qty: 4 RF: 0 Continued pregabalin [Lyrica] 100 MG capsule 150 mg PO TID RF: 0 oxycodone-acetaminophen 1 TABLET tablet 1 tab PO BID RF: 0 ropinirole [Requip] 0.25 MG tablet 0.5 mg PO BID RF: 0 oxybutynin chloride 5 MG tablet 15 mg PO DAILY RF: 0 albuterol sulfate [ProAir HFA] 1 PUFF inhaler 1 - 2 puff inhalation Q4H PRN PRN (Reason: Sob Or Anxiety) RF: 0 fluticasone propionate 1 SPRAY spray,suspension 2 spray NASAL QHS RF: 0 potassium chloride 10 MEQ tablet 60 meq PO BID RF: 0 Morphine [Morphine Ir] tablet 50 mg PO BID RF: 0 Basaglar Kwikpen U-100 20 units miscellaneous DAILY RF: 0 furosemide 80 MG tablet 40 mg PO DAILY RF: 0 metformin 500 mg Tablet 500 mg PO QHS RF: 0 atorvastatin [Lipitor] 10 mg Tablet 10 mg PO QHS RF: 0 diltiazem HCl 360 mg Capsule,Extended Release 24 Hr 360 mg PO DAILY RF: 0 ferrous sulfate [iron] 325 mg (65 mg iron) Tablet 325 mg PO BID RF: 0 metolazone 2.5 mg Tablet 2.5 mg PO MOFR RF: 0 omeprazole 40 mg Capsule,Delayed Release(Dr/Ec) 40 mg PO DAILY RF: 0 methenamine hippurate 1 gram Tablet 1 g PO BID RF: 0 modafinil 200 mg Tablet 200 mg PO DAILY RF: 0 venlafaxine 75 mg Tablet 75 mg PO DAILY RF: 0 spironolactone 50 mg Tablet 50 mg PO DAILY RF: 0 rivaroxaban 2.5 mg Tablet 2.5 mg PO QHS RF: 0 melatonin 3 mg Tablet 3 mg PO QHS RF: 0 metformin 1,000 mg Tablet 1,000 mg PO DAILY RF: 0 multivitamin Tablet 1 tab PO DAILY RF: 0 nystatin 100,000 unit/gram Powder 1 applic TOPICAL BID RF: 0 ascorbic acid (vitamin C) [Vitamin C] 500 mg Tablet 500 mg PO BID RF: 0 cholecalciferol (vitamin D3) [Vitamin D3] 50 mcg (2,000 unit) Tablet 50 mcg PO BID RF: 0 acetaminophen 325 mg Tablet 650 mg PO Q4H PRN (Reason: Pain) RF: 0 guaifenesin 100 mg/5 mL Liquid 200 mg PO Q4H PRN (Reason: Cough) RF: 0 bisacodyl 10 mg Suppository 10 mg MI DAILY PRN (Reason: Constipation) RF: 0 budesonide 0.5 mg/2 mL Suspension For Nebulization 0.5 mg INHALATION BID RF: 0 oxybutynin chloride 5 mg Tablet 5 mg PO QHS RF: 0 Referrals / Follow Up: Efren Argueta DO [NON-STAFF] - Rosa Silva MD [Primary Care Provider] -
--- NOTE | 2021-09-13 12:42 | DS.PCM_ITS ---
Providers Date of Admission: 09/09/21 Primary Care Physician: Dr. Rosa Silva MD Consultations 09/11/21 07:40 Consult: Gastroenterology Routine Consulting Provider: Cresencio Gastroenterology Reason for Consult: choledocholithiasis EMERGENT Consult: No Notified: Yes Date Notified: 09/11/21 Time Notified: 07:40 Method of Notification: Text 09/11/21 14:32 Consult: General Surgery Routine Consulting Provider: Malachi Boswell Reason for Consult: gallstone pancreatitis EMERGENT Consult: No Notified: Yes Date Notified: 09/11/21 Time Notified: 15:57 Method of Notification: pg via granulator machine operator Reason For Visit: HYPOXIA, PANCREATITIS Diagnosis Discharge Diagnosis (1) Choledocholithiasis: Status: Acute Code(s): K80.50 - Calculus of bile duct without cholangitis or cholecystitis without obstruction (2) Cholelithiasis: Status: Acute Code(s): K80.20 - Calculus of gallbladder without cholecystitis without obstruction Qualifiers: Cholelithiasis location: gallbladder Cholecystitis presence: without cholecystitis Biliary obstruction: with biliary obstruction Qualified Code(s): K80.21 - Calculus of gallbladder without cholecystitis with obstruction (3) Acute respiratory failure with hypoxia: Status: Acute Code(s): J96.01 - Acute respiratory failure with hypoxia Medications at Discharge Home Medications Morphine [Morphine Ir] 50 mg PO BID 02/16/14 albuterol sulfate [ProAir HFA] 1 - 2 puff INHALATION Q4H PRN PRN 02/16/14 fluticasone propionate 2 spray NASAL QHS 02/16/14 oxybutynin chloride 15 mg PO DAILY 02/16/14 oxycodone-acetaminophen 1 tab PO BID 02/16/14 potassium chloride 60 meq PO BID 02/16/14 pregabalin [Lyrica] 150 mg PO TID 02/16/14 ropinirole [Requip] 0.5 mg PO BID 02/16/14 Basaglar Kwikpen U-100 20 units MISCELLANEOUS DAILY 05/07/19 furosemide 40 mg PO DAILY 05/07/19 acetaminophen 650 mg PO Q4H PRN 09/09/21 ascorbic acid (vitamin C) [Vitamin C] 500 mg PO BID 09/09/21 atorvastatin [Lipitor] 10 mg PO QHS 09/09/21 bisacodyl 10 mg CO DAILY PRN 09/09/21 budesonide 0.5 mg INHALATION BID 09/09/21 cholecalciferol (vitamin D3) [Vitamin D3] 50 mcg PO BID 09/09/21 diltiazem HCl 360 mg PO DAILY 09/09/21 ferrous sulfate [iron] 325 mg PO BID 09/09/21 guaifenesin 200 mg PO Q4H PRN 09/09/21 melatonin 3 mg PO QHS 09/09/21 metformin 1,000 mg PO DAILY 09/09/21 metformin 500 mg PO QHS 09/09/21 methenamine hippurate 1 g PO BID 09/09/21 metolazone 2.5 mg PO MOFR 09/09/21 modafinil 200 mg PO DAILY 09/09/21 multivitamin 1 tab PO DAILY 09/09/21 nystatin 1 applic TOPICAL BID 09/09/21 omeprazole 40 mg PO DAILY 09/09/21 oxybutynin chloride 5 mg PO QHS 09/09/21 rivaroxaban 2.5 mg PO QHS 09/09/21 spironolactone 50 mg PO DAILY 09/09/21 venlafaxine 75 mg PO DAILY 09/09/21 levofloxacin 750 mg PO DAILY #4 tab 09/13/21 Hospital Course Operations None Procedures None Summary of Care Provided Minutes Spent on Discharge: 28 Hospital Course: This is a 71-year-old female presents with confusion. Confusion was thought to be related with pneumonia and patient was treated with pneumonia with levofloxacin. Patient also had acute pancreatitis and suddenly found to have choledocholithiasis. Patient was seen in consultation by gastroenterology and an ERCP was performed showed that the main bile duct was dilated with stone causing obstruction. Lety cholelithiasis was noted. Removal was accomplished by biliary sphincterotomy and balloon extraction. Patient was seen in consultation by Dr. Boswell, of general surgery, he stated that the patient would need to have her medical issues further addressed before he would operate but he would plan to operate as outpatient. Though it was explicitly written in my previous notes that the patient was medically cleared to proceed with surgery. Patient overall is feeling better, tolerating diet. Patient will be discharged home in stable condition. Physical Exam Const alert Cardio regular rate, regular rhythm, S1 normal heart sound and S2 normal heart sound GI normal to inspection, nondistended, normoactive bowel sounds, soft to palpation and non-tender Extremity normal to inspection, full ROM and no clubbing, cyanosis or edema Skin no rashes or lesions noted Weight / BMI Weight Weight: 102.9 kg Body Mass Index (BMI) 41.7 ABG / Lab / Microbiology Data Result Diagrams: 09/12/21 04:09 09/13/21 05:25 Laboratory: Laboratory Results - last 24 hr 09/12/21 17:34: POC Glucose 128 H 09/12/21 21:10: POC Glucose 316 H 09/13/21 05:02: POC Glucose 247 H 09/13/21 05:25: Sodium 134 L, Potassium 4.4, Chloride 101, Carbon Dioxide 27.0, Anion Gap 6, BUN 18, Creatinine 0.84, Estim Creat Clear Calc 47.18, Est GFR (MDRD) Af Amer 86, Est GFR (MDRD) Non-Af 71, BUN/Creatinine Ratio 21.5 H, Glucose 267 H, Calcium 8.6, Total Bilirubin 0.60, AST 11 L, ALT 47, Alkaline Phosphatase 228 H, Total Protein 6.8, Albumin 2.5 L, Globulin 4.3 H, Albumin/Globulin Ratio 0.6 L 09/13/21 10:52: POC Glucose 371 H Microbiology: Microbiology 09/09/21 01:46 Urine, Random Legionella Antigen - Final 09/09/21 01:46 Urine, Random Streptococcus pneumoniae Antigen (M - Final 09/09/21 01:40 Nasal Secretion SARS-CoV-2 Antigen (Rapid) - Final Radiography Diagnostic Testing: Radiology Impression Endo Retro Cholangiopancreatogram 09/12/21 16:00 IMPRESSION: Fluoroscopy provided during an ERCP. Electronically Signed: Laz Harrison DO at 22:05 EST Reading Location ID and State: [address] [place] [address] Tel [phone], Service support , D/C Instructions Discharge Diet: No restrictions Call your doctor if you observe: Fever of 101 or Higher and - (abdominal pain) Meaningful Use Info Meaningful Use Diagnoses (Choose all that apply): None applicable Discharge Plan Admission Admit Date/Time: 09/09/21 04:08 Primary Reason for Your Visit: gallstone pancreatitis Attending Provider: Peña Bailey Primary Care Provider: Rosa Silva Consulting Providers: Malachi Boswell ; Friend,Rj Discharge Orders/Prescriptions Prescriptions: New levofloxacin 750 mg tablet 750 mg PO DAILY Qty: 4 RF: 0 Continued pregabalin [Lyrica] 100 MG capsule 150 mg PO TID RF: 0 oxycodone-acetaminophen 1 TABLET tablet 1 tab PO BID RF: 0 ropinirole [Requip] 0.25 MG tablet 0.5 mg PO BID RF: 0 oxybutynin chloride 5 MG tablet 15 mg PO DAILY RF: 0 albuterol sulfate [ProAir HFA] 1 PUFF inhaler 1 - 2 puff inhalation Q4H PRN PRN (Reason: Sob Or Anxiety) RF: 0 fluticasone propionate 1 SPRAY spray,suspension 2 spray NASAL QHS RF: 0 potassium chloride 10 MEQ tablet 60 meq PO BID RF: 0 Morphine [Morphine Ir] tablet 50 mg PO BID RF: 0 Basaglar Kwikpen U-100 20 units miscellaneous DAILY RF: 0 furosemide 80 MG tablet 40 mg PO DAILY RF: 0 metformin 500 mg Tablet 500 mg PO QHS RF: 0 atorvastatin [Lipitor] 10 mg Tablet 10 mg PO QHS RF: 0 diltiazem HCl 360 mg Capsule,Extended Release 24 Hr 360 mg PO DAILY RF: 0 ferrous sulfate [iron] 325 mg (65 mg iron) Tablet 325 mg PO BID RF: 0 metolazone 2.5 mg Tablet 2.5 mg PO MOFR RF: 0 omeprazole 40 mg Capsule,Delayed Release(Dr/Ec) 40 mg PO DAILY RF: 0 methenamine hippurate 1 gram Tablet 1 g PO BID RF: 0 modafinil 200 mg Tablet 200 mg PO DAILY RF: 0 venlafaxine 75 mg Tablet 75 mg PO DAILY RF: 0 spironolactone 50 mg Tablet 50 mg PO DAILY RF: 0 rivaroxaban 2.5 mg Tablet 2.5 mg PO QHS RF: 0 melatonin 3 mg Tablet 3 mg PO QHS RF: 0 metformin 1,000 mg Tablet 1,000 mg PO DAILY RF: 0 multivitamin Tablet 1 tab PO DAILY RF: 0 nystatin 100,000 unit/gram Powder 1 applic TOPICAL BID RF: 0 ascorbic acid (vitamin C) [Vitamin C] 500 mg Tablet 500 mg PO BID RF: 0 cholecalciferol (vitamin D3) [Vitamin D3] 50 mcg (2,000 unit) Tablet 50 mcg PO BID RF: 0 acetaminophen 325 mg Tablet 650 mg PO Q4H PRN (Reason: Pain) RF: 0 guaifenesin 100 mg/5 mL Liquid 200 mg PO Q4H PRN (Reason: Cough) RF: 0 bisacodyl 10 mg Suppository 10 mg CO DAILY PRN (Reason: Constipation) RF: 0 budesonide 0.5 mg/2 mL Suspension For Nebulization 0.5 mg INHALATION BID RF: 0 oxybutynin chloride 5 mg Tablet 5 mg PO QHS RF: 0 Referrals / Follow Up: Efren Argueta DO [NON-STAFF] - Malachi Boswell MD [STAFF PHYSICIAN] - Within 1 Month Rosa Silva MD [Primary Care Provider] - Within 2 Weeks Disposition Disposition (needs filled in before D/C Order can be placed): Home, Self Care Charges/Coding Visit Charges Inpatient E&M: 27639 Disch Hosp
--- NOTE | 2021-09-13 13:03 | PCM.TXEXTCAR ---
Diet 09/12/21 17:40 Diet: Regular - General Is pt able to select menu?: Yes Routine Orders/Code Status Code Status: Full Code Wound(s) rt foot: Wound Type: scabbed wounds BLE: Wound Type: multiple small scab wounds BUE: Wound Type: multiple small scabbed wounds rt leg: Wound Type: wound Therapies Weight Bearing: Full weight bearing Extremity Affected:: Bilateral Lower Physical Therapy: Eval and Treat Occupational Therapy: Eval and Treat Problem/Diagnosis (1) Choledocholithiasis: Status: Acute (2) Cholelithiasis: Status: Acute (3) Acute respiratory failure with hypoxia: Status: Acute Allergies/Procedures Done in Hospital Allergies aspirin Allergy (Verified 09/09/21 01:12) Hives latex Allergy (Verified 09/09/21 01:12) Rash Penicillins Allergy (Verified 09/09/21 01:12) Hives Sulfa (Sulfonamide Antibiotics) Allergy (Verified 09/09/21 01:12) Hives Type of Care/Length of Stay Estimated LOS: Convalescent Care Less Than 30 days Type of Care Needed: Skilled Rehab Potential: Good Prognosis: Good Additional Orders/Day of Discharge Day of Discharge: 09/13/21 Dietary and Speech Recommendations Dietitian Recommendations/Changes: recommend 1600 calorie controlled, consistent CHO, fat restricted diet when medically appropriate; will monitor need for ONS as PO diet is advanced Discharge Plan Admission Admit Date/Time: 09/09/21 04:08 Primary Reason for Your Visit: gallstone pancreatitis Attending Provider: Peña Bailey Primary Care Provider: Rosa Silva Consulting Providers: Malachi Boswell ; Rj Irizarry Discharge Orders/Prescriptions Prescriptions: New levofloxacin 750 mg tablet 750 mg PO DAILY Qty: 4 RF: 0 Continued pregabalin [Lyrica] 100 MG capsule 150 mg PO TID RF: 0 oxycodone-acetaminophen 1 TABLET tablet 1 tab PO BID RF: 0 ropinirole [Requip] 0.25 MG tablet 0.5 mg PO BID RF: 0 oxybutynin chloride 5 MG tablet 15 mg PO DAILY RF: 0 albuterol sulfate [ProAir HFA] 1 PUFF inhaler 1 - 2 puff inhalation Q4H PRN PRN (Reason: Sob Or Anxiety) RF: 0 fluticasone propionate 1 SPRAY spray,suspension 2 spray NASAL QHS RF: 0 potassium chloride 10 MEQ tablet 60 meq PO BID RF: 0 Morphine [Morphine Ir] tablet 50 mg PO BID RF: 0 Basaglar Kwikpen U-100 20 units miscellaneous DAILY RF: 0 furosemide 80 MG tablet 40 mg PO DAILY RF: 0 metformin 500 mg Tablet 500 mg PO QHS RF: 0 atorvastatin [Lipitor] 10 mg Tablet 10 mg PO QHS RF: 0 diltiazem HCl 360 mg Capsule,Extended Release 24 Hr 360 mg PO DAILY RF: 0 ferrous sulfate [iron] 325 mg (65 mg iron) Tablet 325 mg PO BID RF: 0 metolazone 2.5 mg Tablet 2.5 mg PO MOFR RF: 0 omeprazole 40 mg Capsule,Delayed Release(Dr/Ec) 40 mg PO DAILY RF: 0 methenamine hippurate 1 gram Tablet 1 g PO BID RF: 0 modafinil 200 mg Tablet 200 mg PO DAILY RF: 0 venlafaxine 75 mg Tablet 75 mg PO DAILY RF: 0 spironolactone 50 mg Tablet 50 mg PO DAILY RF: 0 rivaroxaban 2.5 mg Tablet 2.5 mg PO QHS RF: 0 melatonin 3 mg Tablet 3 mg PO QHS RF: 0 metformin 1,000 mg Tablet 1,000 mg PO DAILY RF: 0 multivitamin Tablet 1 tab PO DAILY RF: 0 nystatin 100,000 unit/gram Powder 1 applic TOPICAL BID RF: 0 ascorbic acid (vitamin C) [Vitamin C] 500 mg Tablet 500 mg PO BID RF: 0 cholecalciferol (vitamin D3) [Vitamin D3] 50 mcg (2,000 unit) Tablet 50 mcg PO BID RF: 0 acetaminophen 325 mg Tablet 650 mg PO Q4H PRN (Reason: Pain) RF: 0 guaifenesin 100 mg/5 mL Liquid 200 mg PO Q4H PRN (Reason: Cough) RF: 0 bisacodyl 10 mg Suppository 10 mg DC DAILY PRN (Reason: Constipation) RF: 0 budesonide 0.5 mg/2 mL Suspension For Nebulization 0.5 mg INHALATION BID RF: 0 oxybutynin chloride 5 mg Tablet 5 mg PO QHS RF: 0 Referrals / Follow Up: Efren Argueta DO [NON-STAFF] - Malachi Boswell MD [STAFF PHYSICIAN] - Within 1 Month Rosa Silva MD [Primary Care Provider] - Within 2 Weeks Disposition Disposition (needs filled in before D/C Order can be placed): Home, Self Care
[2021-09-13 16:05] LABS: Bedside Glucose 230 mg/dL (70-110)
--- NOTE | 2021-09-13 16:10 | CASEMGMT ---
Addendum entered by Jacquelyn Venegas 09/13/21 17:42: SW placed a call to pt's CM Nancy Clarknoris and left message that pt was discharged to [facility] today. Original Note: Social Work Note Discharge is in for pt to return to [facility] skilled today. SW faxed completed discharge paperwork to [facility] including transfer to extended care facility, signed medication list, any scripts, and COVID test/tool. Original in SNF folder and copy on pt's chart. SW spoke with RN, pt to transport via cot. SW accessed trip assist and arranged transportation via cot for 5:00pm. Transportation form completed and placed on SNF folder and copy on pt's chart. SW updated RN on transportation time. SW placed a call to Tash at [facility] and left message updating her on transportation time. SW in to speak with pt. SW updated pt on transportation time. SW also provided pt with education on Code Status. Pt states she wants to be a full code. SW informed pt that this worker did check and pt is full code. SW asked pt if this worker could call family to update on discharge. Pt states that this worker can call her daughter Susan. SW placed a call to pt's daughter Susan. SW updated Susan on discharge back to [facility] today and transportation time. Susan asked if anyone spoke to pt about HCPOA. SW reviewed admissions questions and pt had declined information regarding Advanced Directives. SW informed Susan that pt can return to [facility] with Advanced Directive documents and SW at [facility] can assist pt with completing. Susan states understanding, denied additional needs or concerns at this time. KRISTIN in to speak with pt again. SW informed pt that this worker called her daughter Susan and updated her on transportation time and discharge. SW also spoke with pt about Advanced Directives as her daughter Susan mentioned pt completing documents. SW informed pt that documents will be sent with her back to [facility] and SW at [facility] can help pt complete them if she would like. Pt states understanding. SW placed another call to Tash and left message to relay message to SW at [facility] to continue discussion of Advanced Directives with pt. Plan: Return to [facility] skilled today with Physician's transporting pt via cot at 5:00pm. Jacquelyn Venegas CERTIFIED PROFESSIONAL CONTROLLER, CHILD PSYCHOLOGIST
== END 2021-09-13 17:30 | disposition skilled nursing facility (03) | DRG 444 ==
LOC: ED 03:45 → MS3 05:25
PROVIDERS: Anesthesiology; Internal Medicine; Internal Medicine Gastroenterology; Admitting Provider Family Medicine; Emergency Provider Emergency Medicine; PCP Internal Medicine
PROC: 0FC98ZZ Extirpation of Matter from Common Bile Duct, Via Natural or Artificial Opening Endoscopic (ICD-10-PCS; CPT 43260; principal; 2021-09-12 15:00)
DX: K80.71 Calculus of gallbladder and bile duct without cholecystitis with obstruction (principal); J96.21 Acute and chronic respiratory failure with hypoxia; K85.10 Biliary acute pancreatitis without necrosis or infection; G93.41 Metabolic encephalopathy; I48.0 Paroxysmal atrial fibrillation; Z20.822 Contact with and (suspected) exposure to COVID-19; D50.9 Iron deficiency anemia, unspecified; G47.419 Narcolepsy without cataplexy; J44.9 Chronic obstructive pulmonary disease, unspecified; G89.4 Chronic pain syndrome; E11.40 Type 2 diabetes mellitus with diabetic neuropathy, unspecified; I10 Essential (primary) hypertension; E78.5 Hyperlipidemia, unspecified; G25.81 Restless legs syndrome; K21.9 Gastro-esophageal reflux disease without esophagitis; E66.2 Morbid (severe) obesity with alveolar hypoventilation; Z68.41 Body mass index [BMI] 40.0-44.9, adult; F41.9 Anxiety disorder, unspecified; F32.A Depression, unspecified; Z79.84 Long term (current) use of oral hypoglycemic drugs; Z79.01 Long term (current) use of anticoagulants; Z79.899 Other long term (current) drug therapy; Z86.16 Personal history of COVID-19; Z86.31 Personal history of diabetic foot ulcer
CPT/HCPCS: 36415; 70450; 71045; 74177; 74181; 74330; 76000; 76705; 80048; 80053; 80076; 81001; 82962; 83036; 83690; 84484; 85025; 85610; 85730; 87426; 87449; 87635; 87641; 93005; 94002; 94003; 94640; 97110; 97162; 97166; 97530; 97535; 99251; 99285; J7030; J7040; J7050; P9612; Q9967; A4216; G0463; J2405; U0003; U0005

== ENCOUNTER → 2021-09-18 | Outpatient (REF) | payer MEDICARE, MEDICAID, SELFPAY ==
[2021-09-18 09:05] LABS: Absolute Lymphocyte Count 1.22 X10^3/uL (0.83-4.51); Basophil# 0.05 X10^3/uL; Basophil% 0.3 % (0-1); Eosinophil# 0.16 X10^3/uL; Eosinophils% 1.1 % (0-5); Hematocrit 38.1 % (37-47); Hemoglobin 12.8 g/dL (12.0-15.0); Lymphocyte # 1.22 X10^3/ul (0.83-4.51); Lymphocyte % 8.4 % (19-41); Mean Corp Hgb Conc 33.6 g/dL (32-36); Mean Corpuscular Hgb 29.2 pg (27.0-32.0); Mean Corpuscular Volume 86.8 fL (81-99); Mean Platelet Vol. 10.8 fl (6.2-12.0); Monocyte# 0.96 X10^3/uL; Monocyte% 6.6 % (0-10); NRBC Flagged by Analyzer 0 % (0-5); Neutrophil # 11.95 X10^3/uL (2.7-7.7); Neutrophil % 82.4 % (47-70); Platelet Count 264 K/mm3 (150-450); RBC Distribution Width CV 17.9 % (11.6-14.6); RBC Distribution Width SD 56.9 fl (35.1-43.9); Red Blood Count 4.39 M/mm3 (4.2-5.4); White Blood Count 14.5 K/mm3 (4.4-11.0)
[2021-09-18 09:23] LABS: Amylase 32 U/L (25-115); Anion Gap 10 (5-15); BUN 40 mg/dL (7-18); Chloride 96 mmol/L (98-107); Creatinine, Serum 1.11 mg/dL (0.55-1.02); EST Glomerular Filtration Rate 51 mL/min (>60); Est Glom Filt Rate - Afr Amer 62 mL/min (>60); Glucose 113 mg/dL (74-106); Lipase 142 U/L (73-393); Magnesium 1.8 mg/dL (1.6-2.6); Potassium 4.9 mmol/L (3.5-5.1); Sodium Level 130 mmol/L (136-145)
== END | disposition home or self-care (01) ==
LOC: OLS.SW1020 04:00
PROVIDERS: PCP Internal Medicine; Referring Provider Internal Medicine; Visit Provider Internal Medicine
DX: K80.50 Calculus of bile duct without cholangitis or cholecystitis without obstruction (principal); E11.9 Type 2 diabetes mellitus without complications; E78.5 Hyperlipidemia, unspecified
CPT/HCPCS: 36415; 80048; 82150; 83690; 83735; 85025

== ENCOUNTER → 2021-09-21 | Outpatient (REF) | payer MEDICARE, MEDICAID, SELFPAY ==
[2021-09-21 17:18] LABS: Mucous, Urine 0 SEEN /hpf (<or=2+); Red Blood Cells-Urine 0 SEEN /hpf (0-5)
[2021-09-21 18:04] LABS: Hematocrit 34.5 % (37-47); Hemoglobin 11.6 g/dL (12.0-15.0); Mean Corp Hgb Conc 33.6 g/dL (32-36); Mean Corpuscular Hgb 28.6 pg (27.0-32.0); Mean Corpuscular Volume 85.2 fL (81-99); Mean Platelet Vol. 9.9 fl (6.2-12.0); Platelet Count 249 K/mm3 (150-450); RBC Distribution Width CV 17.2 % (11.6-14.6); RBC Distribution Width SD 53.7 fl (35.1-43.9); Red Blood Count 4.05 M/mm3 (4.2-5.4)
[2021-09-21 18:38] LABS: Color, Urine Yellow (Yellow); Glucose, Dipstick Normal (Normal); Ketone-Dipstick Negative (Negative); Leukocyte Esterase-Dipstick 100 /ul (Negative); Nitrite-Dipstick Negative (Negative); Occult Blood-Urine Negative /ul (Negative); Protein-Dipstick Negative (Negative); Specific Gravity, Urine 1.015 (1.002-1.030); Urine Bilirubin Dipstick Negative (Negative); Urine Clarity Clear (Clear); Urine Urobilinogen Normal (Normal)
[2021-09-21 18:49] LABS: Squamous Epithelial Cells - UA 0-5 SEEN /hpf (5-10)
[2021-09-21 18:50] LABS: White Blood Cells 5-10 SEEN /hpf (0-5)
[2021-09-21 18:51] LABS: Bacteria 1+ /hpf (None Seen); Hyaline Cast 5-10 SEEN /lpf (0-5)
[2021-09-21 19:03] LABS: ALB/GLOB Ratio 0.7 RATIO (0.9-2.4); AST(SGOT) 11 U/L (15-37); Alanine Aminotransfer ALT/SGPT 17 U/L (13-56); Albumin, Serum 2.8 g/dL (3.2-5.0); Alkaline Phosphatase 131 U/L (45-117); Anion Gap 8 (5-15); BUN 35 mg/dL (7-18); BUN/Creat Ratio 36.6 RATIO (10-20); Chloride 99 mmol/L (98-107); Creatinine, Serum 0.96 mg/dL (0.55-1.02); EST Glomerular Filtration Rate 61 mL/min (>60); Est Glom Filt Rate - Afr Amer 74 mL/min (>60); Globulin 4.2 g/dL (2.2-4.2); Glucose 98 mg/dL (74-106); Potassium 4.2 mmol/L (3.5-5.1); Sodium Level 133 mmol/L (136-145)
== END | disposition home or self-care (01) ==
LOC: OLS.SW1020 16:30
PROVIDERS: PCP Internal Medicine; Referring Provider Internal Medicine; Visit Provider Internal Medicine
DX: N39.0 Urinary tract infection, site not specified (principal); R29.6 Repeated falls
CPT/HCPCS: 80053; 81001; 85027; 87077; 87086; 87088; 87186

== ENCOUNTER → 2021-09-23 | Outpatient (REF) | payer MEDICARE, MEDICAID, SELFPAY | END | disposition home or self-care (01) | LOC: OLS.SW1020 05:00 | PROVIDERS: PCP Internal Medicine; Visit Provider Internal Medicine | DX: K85.90 Acute pancreatitis without necrosis or infection, unspecified (principal) | CPT/HCPCS: 36415; 87040 ==

== ENCOUNTER → 2021-09-30 | Outpatient (REF) | payer MEDICARE, MEDICAID, SELFPAY ==
[2021-09-30 08:23] LABS: Absolute Lymphocyte Count 1.21 X10^3/uL (0.83-4.51); Absolute Neutrophil Count 3.6 X10^3/uL (2.0-7.7); Basophil# 0.02 X10^3/uL; Basophil% 0.4 % (0-1); Eosinophil# 0.16 X10^3/uL; Hemoglobin 10.1 g/dL (12.0-15.0); Lymphocyte # 1.21 X10^3/ul (0.83-4.51); Lymphocyte % 22.6 % (19-41); Mean Corp Hgb Conc 32.6 g/dL (32-36); Mean Corpuscular Hgb 28.8 pg (27.0-32.0); Mean Corpuscular Volume 88.3 fL (81-99); Mean Platelet Vol. 9.7 fl (6.2-12.0); Monocyte# 0.39 X10^3/uL; Monocyte% 7.3 % (0-10); NRBC Flagged by Analyzer 0 % (0-5); Neutrophil # 3.55 X10^3/uL (2.7-7.7); Neutrophil % 66.3 % (47-70); Platelet Count 172 K/mm3 (150-450); RBC Distribution Width CV 17.8 % (11.6-14.6); RBC Distribution Width SD 57.4 fl (35.1-43.9); Red Blood Count 3.51 M/mm3 (4.2-5.4); White Blood Count 5.4 K/mm3 (4.4-11.0)
[2021-09-30 08:32] LABS: Anion Gap 3 (5-15); BUN 19 mg/dL (7-18); BUN/Creat Ratio 25.3 RATIO (10-20); Calcium,Total 8.8 mg/dL (8.5-10.1); Chloride 107 mmol/L (98-107); Creatinine, Serum 0.75 mg/dL (0.55-1.02); EST Glomerular Filtration Rate 80 mL/min (>60); Est Glom Filt Rate - Afr Amer 97 mL/min (>60); Glucose 63 mg/dL (74-106); Potassium 4.8 mmol/L (3.5-5.1); Sodium Level 140 mmol/L (136-145)
== END | disposition home or self-care (01) ==
LOC: OLS.SW1020 07:25
PROVIDERS: PCP Internal Medicine; Visit Provider Internal Medicine
DX: N17.9 Acute kidney failure, unspecified (principal)
CPT/HCPCS: 36415; 80048; 85025

== ENCOUNTER → 2021-10-28 | Outpatient (REF) | payer MEDICARE, MEDICAID, SELFPAY ==
[2021-10-28 12:01] LABS: Hematocrit 39.4 % (37-47); Hemoglobin 12.9 g/dL (12.0-15.0); Mean Corp Hgb Conc 32.7 g/dL (32-36); Mean Corpuscular Hgb 29.5 pg (27.0-32.0); Mean Platelet Vol. 11.1 fl (6.2-12.0); Platelet Count 191 K/mm3 (150-450); RBC Distribution Width CV 16.7 % (11.6-14.6); RBC Distribution Width SD 55.4 fl (35.1-43.9); Red Blood Count 4.38 M/mm3 (4.2-5.4); White Blood Count 7.4 K/mm3 (4.4-11.0)
[2021-10-28 12:14] LABS: Anion Gap 6 (5-15); BUN 21 mg/dL (7-18); BUN/Creat Ratio 23.4 RATIO (10-20); Calcium,Total 9.1 mg/dL (8.5-10.1); Chloride 105 mmol/L (98-107); EST Glomerular Filtration Rate 65 mL/min (>60); Est Glom Filt Rate - Afr Amer 79 mL/min (>60); Glucose 135 mg/dL (74-106); Potassium 4.5 mmol/L (3.5-5.1); Sodium Level 139 mmol/L (136-145)
== END | disposition home or self-care (01) ==
LOC: OLS.SW1020 09:40
PROVIDERS: PCP Internal Medicine; Referring Provider Internal Medicine; Visit Provider Internal Medicine
DX: J44.9 Chronic obstructive pulmonary disease, unspecified (principal); E11.9 Type 2 diabetes mellitus without complications
CPT/HCPCS: 36415; 80048; 85027

== ENCOUNTER → 2021-12-11 | Outpatient (REF) | payer MEDICARE, MEDICAID, SELFPAY ==
[2021-12-11 08:46] LABS: Absolute Lymphocyte Count 1.76 X10^3/uL (0.83-4.51); Absolute Neutrophil Count 5.4 X10^3/uL (2.0-7.7); Basophil# 0.06 X10^3/uL; Basophil% 0.7 % (0-1); Eosinophils% 2.5 % (0-5); Hematocrit 39.7 % (37-47); Hemoglobin 12.8 g/dL (12.0-15.0); Lymphocyte # 1.76 X10^3/ul (0.83-4.51); Lymphocyte % 21.8 % (19-41); Mean Corp Hgb Conc 32.2 g/dL (32-36); Mean Corpuscular Hgb 29.8 pg (27.0-32.0); Mean Corpuscular Volume 92.5 fL (81-99); Mean Platelet Vol. 10.5 fl (6.2-12.0); Monocyte# 0.68 X10^3/uL; Monocyte% 8.4 % (0-10); NRBC Flagged by Analyzer 0 % (0-5); Neutrophil # 5.35 X10^3/uL (2.7-7.7); Neutrophil % 66.4 % (47-70); Platelet Count 179 K/mm3 (150-450); RBC Distribution Width CV 14.6 % (11.6-14.6); RBC Distribution Width SD 49.3 fl (35.1-43.9); Red Blood Count 4.29 M/mm3 (4.2-5.4); White Blood Count 8.1 K/mm3 (4.4-11.0)
[2021-12-11 08:51] LABS: Anion Gap 9 (5-15); BUN 29 mg/dL (7-18); BUN/Creat Ratio 29.2 RATIO (10-20); Calcium,Total 9.4 mg/dL (8.5-10.1); Chloride 103 mmol/L (98-107); Creatinine, Serum 0.99 mg/dL (0.55-1.02); EST Glomerular Filtration Rate 58 mL/min (>60); Est Glom Filt Rate - Afr Amer 70 mL/min (>60); Glucose 167 mg/dL (74-106); Potassium 4.7 mmol/L (3.5-5.1); Sodium Level 136 mmol/L (136-145)
== END | disposition home or self-care (01) ==
LOC: OLS.SW1020 05:00
PROVIDERS: PCP Surgery Vascular Surgery; Visit Provider Internal Medicine
DX: I10 Essential (primary) hypertension (principal); J44.9 Chronic obstructive pulmonary disease, unspecified; E11.9 Type 2 diabetes mellitus without complications
CPT/HCPCS: 36415; 80048; 85025

== ENCOUNTER → 2021-12-26 | Outpatient (REF) | payer MEDICARE, MEDICAID, SELFPAY ==
[2021-12-26 08:53] LABS: Absolute Lymphocyte Count 1.51 X10^3/uL (0.83-4.51); Absolute Neutrophil Count 5.4 X10^3/uL (2.0-7.7); Basophil# 0.06 X10^3/uL; Basophil% 0.8 % (0-1); Eosinophil# 0.22 X10^3/uL; Eosinophils% 2.8 % (0-5); Hematocrit 40.6 % (37-47); Hemoglobin 13.6 g/dL (12.0-15.0); Lymphocyte # 1.51 X10^3/ul (0.83-4.51); Lymphocyte % 19.2 % (19-41); Mean Corp Hgb Conc 33.5 g/dL (32-36); Mean Corpuscular Hgb 30.1 pg (27.0-32.0); Mean Corpuscular Volume 89.8 fL (81-99); Mean Platelet Vol. 10.3 fl (6.2-12.0); Monocyte# 0.68 X10^3/uL; Monocyte% 8.6 % (0-10); NRBC Flagged by Analyzer 0 % (0-5); Neutrophil # 5.38 X10^3/uL (2.7-7.7); Neutrophil % 68.3 % (47-70); Platelet Count 182 K/mm3 (150-450); RBC Distribution Width CV 14.5 % (11.6-14.6); RBC Distribution Width SD 47.2 fl (35.1-43.9); Red Blood Count 4.52 M/mm3 (4.2-5.4); White Blood Count 7.9 K/mm3 (4.4-11.0)
[2021-12-26 09:31] LABS: Anion Gap 7 (5-15); BUN 24 mg/dL (7-18); BUN/Creat Ratio 26.2 RATIO (10-20); Calcium,Total 9.5 mg/dL (8.5-10.1); Chloride 100 mmol/L (98-107); Creatinine, Serum 0.92 mg/dL (0.55-1.02); EST Glomerular Filtration Rate 64 mL/min (>60); Est Glom Filt Rate - Afr Amer 77 mL/min (>60); Glucose 87 mg/dL (74-106); Potassium 4.3 mmol/L (3.5-5.1); Sodium Level 136 mmol/L (136-145)
== END | disposition home or self-care (01) ==
LOC: OLS.SW1020 04:00
PROVIDERS: PCP Surgery Vascular Surgery; Referring Provider Internal Medicine; Visit Provider Internal Medicine
DX: E11.40 Type 2 diabetes mellitus with diabetic neuropathy, unspecified (principal); J44.9 Chronic obstructive pulmonary disease, unspecified
CPT/HCPCS: 36415; 80048; 85025

== ENCOUNTER → 2022-01-01 05:00 | Outpatient (REF) | payer MEDICARE, MEDICAID, SELFPAY ==
[2022-01-01 08:57] LABS: Basophil# 0.06 X10^3/uL; Basophil% 0.9 % (0-1); Eosinophil# 0.19 X10^3/uL; Eosinophils% 2.8 % (0-5); Hematocrit 34.7 % (37-47); Hemoglobin 11.5 g/dL (12.0-15.0); Lymphocyte % 28.4 % (19-41); Mean Corp Hgb Conc 33.1 g/dL (32-36); Mean Corpuscular Hgb 30.6 pg (27.0-32.0); Mean Corpuscular Volume 92.3 fL (81-99); Mean Platelet Vol. 10.3 fl (6.2-12.0); Monocyte# 0.58 X10^3/uL; Monocyte% 8.7 % (0-10); NRBC Flagged by Analyzer 0 % (0-5); Neutrophil # 3.95 X10^3/uL (2.7-7.7); Neutrophil % 58.9 % (47-70); Platelet Count 163 K/mm3 (150-450); RBC Distribution Width CV 14.5 % (11.6-14.6); RBC Distribution Width SD 48.5 fl (35.1-43.9); Red Blood Count 3.76 M/mm3 (4.2-5.4); White Blood Count 6.7 K/mm3 (4.4-11.0)
[2022-01-01 10:05] LABS: Anion Gap 6 (5-15); BUN 23 mg/dL (7-18); BUN/Creat Ratio 24.4 RATIO (10-20); Calcium,Total 8.6 mg/dL (8.5-10.1); Chloride 105 mmol/L (98-107); Creatinine, Serum 0.94 mg/dL (0.55-1.02); EST Glomerular Filtration Rate 62 mL/min (>60); Est Glom Filt Rate - Afr Amer 75 mL/min (>60); Glucose 115 mg/dL (74-106); Potassium 4.3 mmol/L (3.5-5.1); Sodium Level 140 mmol/L (136-145)
== END ==
LOC: OLS.SW300 05:00
PROVIDERS: PCP Surgery Vascular Surgery; Visit Provider Internal Medicine
DX: E11.9 Type 2 diabetes mellitus without complications (principal)
CPT/HCPCS: 36415; 80048; 85025

== ENCOUNTER → 2022-01-15 05:00 | Outpatient (REF) | payer MEDICARE, MEDICAID, SELFPAY ==
[2022-01-15 09:04] LABS: Absolute Lymphocyte Count 1.75 X10^3/uL (0.83-4.51); Absolute Neutrophil Count 6.2 X10^3/uL (2.0-7.7); Basophil# 0.05 X10^3/uL; Basophil% 0.6 % (0-1); Eosinophils% 2.2 % (0-5); Hematocrit 36.3 % (37-47); Hemoglobin 12.1 g/dL (12.0-15.0); Lymphocyte # 1.75 X10^3/ul (0.83-4.51); Lymphocyte % 19.4 % (19-41); Mean Corp Hgb Conc 33.3 g/dL (32-36); Mean Corpuscular Hgb 30.4 pg (27.0-32.0); Mean Corpuscular Volume 91.2 fL (81-99); Mean Platelet Vol. 10.6 fl (6.2-12.0); Monocyte# 0.81 X10^3/uL; NRBC Flagged by Analyzer 0 % (0-5); Neutrophil # 6.19 X10^3/uL (2.7-7.7); Neutrophil % 68.4 % (47-70); Platelet Count 180 K/mm3 (150-450); RBC Distribution Width CV 14.5 % (11.6-14.6); RBC Distribution Width SD 48.7 fl (35.1-43.9); Red Blood Count 3.98 M/mm3 (4.2-5.4)
[2022-01-15 09:18] LABS: Anion Gap 5 (5-15); BUN 23 mg/dL (7-18); BUN/Creat Ratio 25.5 RATIO (10-20); Calcium,Total 9.1 mg/dL (8.5-10.1); Chloride 106 mmol/L (98-107); EST Glomerular Filtration Rate 65 mL/min (>60); Est Glom Filt Rate - Afr Amer 78 mL/min (>60); Glucose 85 mg/dL (74-106); Potassium 4.5 mmol/L (3.5-5.1); Sodium Level 140 mmol/L (136-145)
== END ==
LOC: OLS.SW300 05:00
PROVIDERS: PCP Surgery Vascular Surgery; Visit Provider Internal Medicine
DX: E11.9 Type 2 diabetes mellitus without complications (principal); I10 Essential (primary) hypertension
CPT/HCPCS: 36415; 80048; 85025

== ENCOUNTER → 2022-01-30 | Outpatient (REF) | payer MEDICARE, MEDICAID, SELFPAY ==
[2022-01-30 09:10] LABS: Absolute Lymphocyte Count 2.45 X10^3/uL (0.83-4.51); Absolute Neutrophil Count 6.3 X10^3/uL (2.0-7.7); Basophil# 0.06 X10^3/uL; Basophil% 0.6 % (0-1); Eosinophil# 0.21 X10^3/uL; Eosinophils% 2.2 % (0-5); Hematocrit 47.6 % (37-47); Hemoglobin 15.8 g/dL (12.0-15.0); Lymphocyte # 2.45 X10^3/ul (0.83-4.51); Lymphocyte % 25.1 % (19-41); Mean Corp Hgb Conc 33.2 g/dL (32-36); Mean Corpuscular Hgb 30.4 pg (27.0-32.0); Mean Corpuscular Volume 91.7 fL (81-99); Mean Platelet Vol. 10.7 fl (6.2-12.0); Monocyte% 7.2 % (0-10); NRBC Flagged by Analyzer 0 % (0-5); Neutrophil # 6.31 X10^3/uL (2.7-7.7); Neutrophil % 64.6 % (47-70); Platelet Count 204 K/mm3 (150-450); RBC Distribution Width CV 14.5 % (11.6-14.6); RBC Distribution Width SD 48.6 fl (35.1-43.9); Red Blood Count 5.19 M/mm3 (4.2-5.4); White Blood Count 9.8 K/mm3 (4.4-11.0)
[2022-01-30 09:24] LABS: Anion Gap 6 (5-15); BUN 32 mg/dL (7-18); BUN/Creat Ratio 33.8 RATIO (10-20); Calcium,Total 9.8 mg/dL (8.5-10.1); Chloride 103 mmol/L (98-107); Creatinine, Serum 0.95 mg/dL (0.55-1.02); EST Glomerular Filtration Rate 61 mL/min (>60); Est Glom Filt Rate - Afr Amer 74 mL/min (>60); Glucose 98 mg/dL (74-106); Potassium 4.8 mmol/L (3.5-5.1); Sodium Level 137 mmol/L (136-145)
== END | disposition home or self-care (01) ==
LOC: OLS.SW300 04:00
PROVIDERS: PCP Surgery Vascular Surgery; Referring Provider Internal Medicine; Visit Provider Internal Medicine
DX: E11.9 Type 2 diabetes mellitus without complications (principal); J44.9 Chronic obstructive pulmonary disease, unspecified
CPT/HCPCS: 36415; 80048; 85025

== ENCOUNTER → 2022-02-13 | Outpatient (REF) | payer MEDICARE, MEDICAID, SELFPAY ==
[2022-02-13 09:00] LABS: Absolute Lymphocyte Count 2.03 X10^3/uL (0.83-4.51); Absolute Neutrophil Count 5.9 X10^3/uL (2.0-7.7); Basophil# 0.04 X10^3/uL; Basophil% 0.4 % (0-1); Eosinophil# 0.22 X10^3/uL; Eosinophils% 2.4 % (0-5); Hematocrit 34.9 % (37-47); Hemoglobin 11.4 g/dL (12.0-15.0); Lymphocyte # 2.03 X10^3/ul (0.83-4.51); Lymphocyte % 22.2 % (19-41); Mean Corp Hgb Conc 32.7 g/dL (32-36); Mean Corpuscular Hgb 30.3 pg (27.0-32.0); Mean Corpuscular Volume 92.8 fL (81-99); Mean Platelet Vol. 10.8 fl (6.2-12.0); Monocyte# 0.91 X10^3/uL; Monocyte% 9.9 % (0-10); NRBC Flagged by Analyzer 0 % (0-5); Neutrophil # 5.92 X10^3/uL (2.7-7.7); Neutrophil % 64.7 % (47-70); Platelet Count 164 K/mm3 (150-450); RBC Distribution Width CV 13.8 % (11.6-14.6); RBC Distribution Width SD 46.9 fl (35.1-43.9); Red Blood Count 3.76 M/mm3 (4.2-5.4); White Blood Count 9.2 K/mm3 (4.4-11.0)
[2022-02-13 09:23] LABS: Anion Gap 7 (5-15); BUN 20 mg/dL (7-18); BUN/Creat Ratio 24.2 RATIO (10-20); Calcium,Total 8.6 mg/dL (8.5-10.1); Chloride 102 mmol/L (98-107); Creatinine, Serum 0.83 mg/dL (0.55-1.02); EST Glomerular Filtration Rate 72 mL/min (>60); Est Glom Filt Rate - Afr Amer 87 mL/min (>60); Glucose 97 mg/dL (74-106); Potassium 4.2 mmol/L (3.5-5.1); Sodium Level 138 mmol/L (136-145)
== END | disposition home or self-care (01) ==
LOC: OLS.SW300 04:00
PROVIDERS: PCP Surgery Vascular Surgery; Visit Provider Internal Medicine
DX: I10 Essential (primary) hypertension (principal); J44.9 Chronic obstructive pulmonary disease, unspecified; Z79.899 Other long term (current) drug therapy
CPT/HCPCS: 36415; 80048; 85025

== ENCOUNTER 2022-02-27 11:50 | Day surgery (SDC) | payer MEDICARE, MEDICAID, SELFPAY ==
[2022-02-27] VITALS (8 sets, daily range): BP systolic 126–151; BP diastolic 52–79; PULSE 60–72; RESP 16–18; TEMP 36.4–37.4; O2SAT 64–100; BMI 42.7
--- NOTE | 2022-02-27 12:27 | EKG12_ITS ---
Test Reason : PRE OP Blood Pressure : / mmHG Vent. Rate : 063 BPM Atrial Rate : 063 BPM P-R Int : 206 ms QRS Dur : 088 ms QT Int : 376 ms P-R-T Axes : 047 018 058 degrees QTc Int : 384 ms Normal sinus rhythm Nonspecific ST abnormality Abnormal ECG Confirmed by RANDALL SNYDER, MARIAM ([id number]), editor magazine AMIRA SOLITARIO ([id number]) on 03/01/2022 1:53:29 PM Referred By: Efren Roberts Confirmed By:MARIAM PEREIRA MD
[2022-02-27] MEDS: Lactated Ringers 1,000 ML 15 ML IV ×2 (12:48→17:17)
--- NOTE | 2022-02-27 13:09 | PCM.HP.BLA ---
History and Physical Date of Admission: 02/27/22 SANDY ORONA, is a 71 F who presents to the office today for f/u ERCP when temporary biliary stent was placed. She hasn't had any abdominal pain since then. No vomiting, dysphagia, diarrhea, melena, hematochezia. Gets nausea if she eats greasy food. Has constipation from morphine; manages it by eating some dairy--she is lactose intolerant so she gets the bowels to move when she eats a little bit of dairy. She is on omeprazole, that control her heartburn. 09/12/21 ERCP Impressions : - The entire main bile duct was dilated, with a stone causing an obstruction. - Choledocholithiasis was found.? Complete removal was accomplished by biliary ?sphincterotomy and balloon extraction. - A biliary sphincterotomy was performed. - The biliary tree was swept. - One stent was placed into the common bile duct. 09/09/21 US/Gallbladder IMPRESSION: Cholelithiasis and biliary sludge with irregular hypoechoic lesion in the gallbladder lumen, possible tumefactive sludge or mass. Intrahepatic and extrahepatic biliary ductal dilatation with intraluminal material, suspicious for sludge or choledocholithiasis. Recommend correlation with multiphasic MRI/MRCP. Hepatomegaly. Mild right renal pelviectasis Her PCP is Dr Kendall Lira Constitutional: Positive for fatigue, frequent falls, weakness and weight change ENT ENT: No difficulty swallowing Cardio Cardiology: Positive for leg pain with exertion Gastro GI: Positive for bloating, constipation, diarrhea, heartburn and excessive flatus; No abdominal pain, belching, change in bowel habits, change in stool character, coffee ground emesis, cramping, difficulty swallowing, feeling full early, incontinent of stools, Vomiting blood/hematemesis, Blood in stool, loose stools, Black,tarry stools, nausea/dyspepsia, pain with swallowing, vomiting or other Musc Musculoskeletal: Positive for abnormal gait, joint pain, back pain, joint swelling, muscle weakness, stiffness, tingling, Arthritis, sciatica, restless legs, leg pain at night and leg pain with exertion Skin Skin: No yellowing of the eye or itchy eyes Neuro Neurology: Positive for abnormal gait, weakness, frequent falls, tingling and restless legs Psych Psychiatric: Positive for anxiety and Positive for depression Endo Endocrine: Positive for fatigue and weight change Aller/Imm Allergy/Immunologic: No itchy eyes José Miguel/Lymp Hematologic/Lymphatic: Positive for easy bruising; No easy bleeding Exam Const General: cooperative, comfortable and no acute distress Nutritional Appearance: obese Eyes Conjunctivae: conjunctivae normal Sclera: sclerae normal Resp Effort & Inspection: normal respiratory effort GI Palpation: soft and nontender Neuro Other: in wheelchair Quality Reporting Tobacco Screening ([facility] 138) Smoking Status: Never smoker Assessment and Plan Assessment and Plan (1) Cholelithiasis: ?Status:?Acute ?Qualifiers: ?Cholelithiasis location:?gallbladder??Cholecystitis presence:?without cholecystitis??Biliary obstruction:?with biliary obstruction? Qualified Code(s):?K80.21 - Calculus of gallbladder without cholecystitis with obstruction ? ? ? Orders:?Referrals: ? General Surgery ?Plan - Sandy Lott SPEECH PATHOLOGIST ASSISTANT, SPEECH PATHOLOGIST ASSISTANT-C: We will get her scheduled for ERCP for removal of the temporary stent in the CBD. Will also refer her to Gen Surg to discuss possible cholecystectomy. I have re-examined the patient. There are no clinical changes since date of exam.
--- NOTE | 2022-02-27 15:20 | RAD_ITS ---
EXAM: INTRAOPERATIVE CHOLANGIOGRAM FLUOROSCOPY TIME: 10.8 sec RADIATION DOSE: 4.8 mGy TOTAL NUMBER OF IMAGES: 1 COMPARISON: None. PROVIDED CLINICAL HISTORY: STONES PAIN TECHNIQUE: The examination was performed with physician in attendance. Under fluoroscopic observation, fluoroscopic images were obtained in the operating room. FINDINGS: First image demonstrates surgical instruments overlying the [id number]. Contrast is identified in a cannulated common bile duct. Retrograde contrast is notseen in the pancreatic duct. Contrast is noted in the proximal duodenum. Contrast is seen in the intrahepatic ducts. RAD/ERCP Biliary Only IMPRESSION: Fluoroscopic assistance images were obtained. Pertinent findings noted above. Electronically Signed: Kody Dior MD at 16:37 EDT ,
--- NOTE | 2022-02-27 16:21 | OP.ERCP_ITS ---
Patient Name: Roselia Bal Procedure Date: 02/27/2022 3:20 PM Date of : 1950 Age: 72 Procedure: ERCP Indications: Bile duct stone(s), Stent removal Providers: Rj Irizarry DO Medicines: General Anesthesia Patient Profile: This is a 72 year old female. Refer to note in patient chart for documentation of history and physical. Patient has symptoms. She is status post ERCP for stent and ERCP for stone removal within the past three months. Complications: No immediate complications. Procedure: Pre-Anesthesia Assessment: - Prior to the procedure, a History and Physical was performed, and patient medications and allergies were reviewed. The patient is competent. The risks and benefits of the procedure and the sedation options and risks were discussed with the patient. All questions were answered and informed consent was obtained. Patient identification and proposed procedure were verified by the physician in the pre-procedure area. Mental Status Examination: alert and oriented. Airway Examination: normal oropharyngeal airway and neck mobility. Respiratory Examination: clear to auscultation. CV Examination: normal. Prophylactic Antibiotics: The patient does not require prophylactic antibiotics. Prior Anticoagulants: The patient has taken no previous anticoagulant or antiplatelet agents. ASA Grade Assessment: II - A patient with mild systemic disease. After reviewing the risks and benefits, the patient was deemed in satisfactory condition to undergo the procedure. The anesthesia plan was to use moderate sedation / analgesia (conscious sedation). Immediately prior to administration of medications, the patient was re-assessed for adequacy to receive sedatives. The heart rate, respiratory rate, oxygen saturations, blood pressure, adequacy of pulmonary ventilation, and response to care were monitored throughout the procedure. The physical status of the patient was re-assessed after the procedure. After obtaining informed consent, the scope was passed under direct vision. Throughout the procedure, the patient's blood pressure, pulse, and oxygen saturations were monitored continuously. The Duodenoscope was introduced through the mouth, and advanced to the duodenum and used to inject contrast into the bile duct. The ERCP was accomplished without difficulty. The patient tolerated the procedure well. Moderate Sedation: Moderate (conscious) sedation was personally administered by an anesthesia professional. The following parameters were monitored: oxygen saturation, heart rate, blood pressure, respiratory rate, EKG, adequacy of pulmonary ventilation, and response to care. Total physician intraservice time was 15 minutes. Scope In: 3:53:47 PM Scope Out: 4:09:05 PM Total Procedure Duration Time 0 hours 15 minutes 18 seconds Findings: The revenue cycle administrator film was normal. The esophagus was successfully intubated under direct vision. The scope was advanced to a normal major papilla in the descending duodenum without detailed examination of the pharynx, larynx and associated structures, and upper GI tract. The upper GI tract was grossly normal. The bile duct was deeply cannulated with the short-nosed traction sphincterotome. Contrast was injected. I personally interpreted the bile duct images. There was brisk flow of contrast through the ducts. Opacification of the entire opacified area was successful. The maximum diameter of the ducts was 10 mm. The lower third of the main bile duct contained three stones, the largest of which was 3 mm in diameter. The main bile duct was moderately dilated, with a stone causing an obstruction. The largest diameter was 10 mm. A straight Roadrunner wire was passed into the biliary tree. A 5 mm biliary sphincterotomy was made with a traction (standard) sphincterotome using ERBE electrocautery. There was no post-sphincterotomy bleeding. The biliary tree was swept with a 15 mm balloon starting at the bifurcation. Sludge was swept from the duct. All stones were removed. Dilation of the common bile duct with a 6-7-8 mm balloon (to a maximum balloon size of 8 mm) dilator was successful. One stent was removed from the biliary tree using a snare. Impression: - The entire main bile duct was moderately dilated, with a stone causing an obstruction. - Choledocholithiasis was found. Complete removal was accomplished by biliary sphincterotomy and balloon extraction. - A biliary sphincterotomy was performed. - The biliary tree was swept. - Common bile duct was successfully dilated. - One stent was removed from the biliary tree. Procedure Code(s): --- Professional --- 61745, 59, Endoscopic retrograde cholangiopancreatography (ERCP); with trans-endoscopic balloon dilation of biliary/pancreatic duct(s) or of ampulla (sphincteroplasty), including sphincterotomy, when performed, each duct 37145, 51, Endoscopic retrograde cholangiopancreatography (ERCP); with removal of foreign body(s) or stent(s) from biliary/pancreatic duct(s) 44947, Endoscopic retrograde cholangiopancreatography (ERCP); with removal of calculi/debris from biliary/pancreatic duct(s) 93633, 26, Endoscopic catheterization of the biliary ductal system, radiological supervision and interpretation CPT copyright 2017 [employer]. All rights reserved. The codes documented in this report are preliminary and upon consultative sales associate review may be revised to meet current compliance requirements. Rj Irizarry DO 02/27/2022 4:21:11 PM This report has been signed electronically. Number of Addenda: 0 Note Initiated On: 02/27/2022 3:20 PM
--- NOTE | 2022-02-27 16:22 | OP.CCLET_ITS ---
02/27/2022 Efren Roberts [address] [place] [address] Re : ERCP procedure for Roselia Bal Dear Dr. Roberts This procedure was performed on Sunday, February 27, 2022. My impressions and recommendations are as follows: Impressions : - The entire main bile duct was moderately dilated, with a stone causing an obstruction. - Choledocholithiasis was found. Complete removal was accomplished by biliary sphincterotomy and balloon extraction. - A biliary sphincterotomy was performed. - The biliary tree was swept. - Common bile duct was successfully dilated. - One stent was removed from the biliary tree. Recommendations : My findings are described in the full procedure note, which is enclosed. If I can be of further assistance, please feel free to contact me at . Sincerely, Rj Irizarry, 02/27/2022 4:21:11 PM This report has been signed electronically.
== END 2022-02-27 18:24 | disposition home or self-care (01) ==
LOC: EN 11:56 → AC 11:58
PROVIDERS: PCP Surgery Vascular Surgery; Referring Provider Surgery Vascular Surgery; Visit Provider Internal Medicine Gastroenterology
PROC: (CPT 43260; principal; 2022-02-27 14:25)
DX: K80.50 Calculus of bile duct without cholangitis or cholecystitis without obstruction (principal); Z79.4 Long term (current) use of insulin; F32.A Depression, unspecified; F41.9 Anxiety disorder, unspecified; Z79.01 Long term (current) use of anticoagulants; Z79.899 Other long term (current) drug therapy
CPT/HCPCS: 43275; 43264; 43262; 74328; 76000; 93005; J7120; J2405

== ENCOUNTER → 2022-02-27 | Outpatient (REF) | payer MEDICARE, MEDICAID, SELFPAY ==
[2022-02-27 09:31] LABS: Absolute Lymphocyte Count 2.12 X10^3/uL (0.83-4.51); Absolute Neutrophil Count 5.1 X10^3/uL (2.0-7.7); Basophil# 0.04 X10^3/uL; Basophil% 0.5 % (0-1); Eosinophil# 0.18 X10^3/uL; Eosinophils% 2.2 % (0-5); Hematocrit 37.9 % (37-47); Hemoglobin 12.4 g/dL (12.0-15.0); Lymphocyte # 2.12 X10^3/ul (0.83-4.51); Mean Corp Hgb Conc 32.7 g/dL (32-36); Mean Corpuscular Hgb 30.5 pg (27.0-32.0); Mean Corpuscular Volume 93.1 fL (81-99); Mean Platelet Vol. 10.4 fl (6.2-12.0); Monocyte# 0.71 X10^3/uL; Monocyte% 8.7 % (0-10); NRBC Flagged by Analyzer 0 % (0-5); Neutrophil # 5.08 X10^3/uL (2.7-7.7); Neutrophil % 62.2 % (47-70); Platelet Count 195 K/mm3 (150-450); RBC Distribution Width CV 14.3 % (11.6-14.6); RBC Distribution Width SD 48.1 fl (35.1-43.9); Red Blood Count 4.07 M/mm3 (4.2-5.4); White Blood Count 8.2 K/mm3 (4.4-11.0)
[2022-02-27 09:56] LABS: Anion Gap 5 (5-15); BUN 27 mg/dL (7-18); BUN/Creat Ratio 31.1 RATIO (10-20); Calcium,Total 9.1 mg/dL (8.5-10.1); Chloride 102 mmol/L (98-107); Creatinine, Serum 0.87 mg/dL (0.55-1.02); EST Glomerular Filtration Rate 68 mL/min (>60); Est Glom Filt Rate - Afr Amer 82 mL/min (>60); Glucose 76 mg/dL (74-106); Potassium 4.6 mmol/L (3.5-5.1); Sodium Level 138 mmol/L (136-145)
== END ==
LOC: OLS.SW300 04:00
PROVIDERS: PCP Surgery Vascular Surgery; Visit Provider Internal Medicine
DX: E11.9 Type 2 diabetes mellitus without complications (principal); J44.9 Chronic obstructive pulmonary disease, unspecified
CPT/HCPCS: 36415; 80048; 85025

== ENCOUNTER → 2022-03-13 | Outpatient (REF) | payer MEDICARE, MEDICAID, SELFPAY ==
[2022-03-13 07:40] LABS: Absolute Neutrophil Count 6.3 X10^3/uL (2.0-7.7); Basophil# 0.05 X10^3/uL; Basophil% 0.5 % (0-1); Eosinophil# 0.24 X10^3/uL; Eosinophils% 2.6 % (0-5); Hemoglobin 12.7 g/dL (12.0-15.0); Lymphocyte % 21.3 % (19-41); Mean Corp Hgb Conc 33.4 g/dL (32-36); Mean Corpuscular Hgb 32.1 pg (27.0-32.0); Mean Platelet Vol. 10.5 fl (6.2-12.0); Monocyte# 0.72 X10^3/uL; Monocyte% 7.7 % (0-10); NRBC Flagged by Analyzer 0 % (0-5); Neutrophil # 6.34 X10^3/uL (2.7-7.7); Neutrophil % 67.7 % (47-70); Platelet Count 183 K/mm3 (150-450); RBC Distribution Width CV 13.9 % (11.6-14.6); RBC Distribution Width SD 49.3 fl (35.1-43.9); Red Blood Count 3.96 M/mm3 (4.2-5.4); White Blood Count 9.4 K/mm3 (4.4-11.0)
[2022-03-13 08:28] LABS: Anion Gap 6 (5-15); BUN 21 mg/dL (7-18); Calcium,Total 9.2 mg/dL (8.5-10.1); Chloride 103 mmol/L (98-107); Creatinine, Serum 0.84 mg/dL (0.55-1.02); EST Glomerular Filtration Rate 70 mL/min (>60); Est Glom Filt Rate - Afr Amer 85 mL/min (>60); Glucose 87 mg/dL (74-106); Potassium 4.6 mmol/L (3.5-5.1); Sodium Level 137 mmol/L (136-145)
== END ==
LOC: OLS.SW300 04:00
PROVIDERS: PCP Surgery Vascular Surgery; Visit Provider Internal Medicine
DX: E11.9 Type 2 diabetes mellitus without complications (principal)
CPT/HCPCS: 36415; 80048; 85025

== ENCOUNTER → 2022-03-15 | Outpatient (REF) | payer MEDICARE, MEDICAID, SELFPAY ==
[2022-03-22 09:34] LABS: Pancreatic Elastase, Fecal 94 (>200)
== END ==
LOC: OLS.SW300 09:31
PROVIDERS: PCP Surgery Vascular Surgery; Visit Provider Internal Medicine
DX: K80.50 Calculus of bile duct without cholangitis or cholecystitis without obstruction (principal)
CPT/HCPCS: 82653

== ENCOUNTER → 2022-03-20 | Outpatient (REF) | payer MEDICARE, SELFPAY ==
[2022-03-20 08:42] LABS: AST(SGOT) 14 U/L (15-37); Alanine Aminotransfer ALT/SGPT 14 U/L (13-56); Albumin, Serum 3.1 g/dL (3.2-5.0); Alkaline Phosphatase 136 U/L (45-117); Bilirubin, Direct 0.12 mg/dL (0.00-0.30); Globulin 4.2 g/dL (2.2-4.2); Protein, Total 7.3 g/dL (6.4-8.2)
== END ==
LOC: OLS.SW300 05:00
PROVIDERS: PCP Surgery Vascular Surgery; Visit Provider Internal Medicine
DX: K80.50 Calculus of bile duct without cholangitis or cholecystitis without obstruction (principal)
CPT/HCPCS: 36415; 80076

== ENCOUNTER → 2022-03-27 | Outpatient (REF) | payer MEDICARE, MEDICAID, SELFPAY ==
[2022-03-27 08:18] LABS: Absolute Lymphocyte Count 1.89 X10^3/uL (0.83-4.51); Absolute Neutrophil Count 5.5 X10^3/uL (2.0-7.7); Basophil# 0.06 X10^3/uL; Basophil% 0.7 % (0-1); Eosinophils% 3.5 % (0-5); Hemoglobin 12.4 g/dL (12.0-15.0); Lymphocyte # 1.89 X10^3/ul (0.83-4.51); Lymphocyte % 22.3 % (19-41); Mean Corp Hgb Conc 34.4 g/dL (32-36); Mean Platelet Vol. 9.9 fl (6.2-12.0); Monocyte# 0.71 X10^3/uL; Monocyte% 8.4 % (0-10); NRBC Flagged by Analyzer 0 % (0-5); Neutrophil % 64.7 % (47-70); Platelet Count 240 K/mm3 (150-450); RBC Distribution Width CV 13.9 % (11.6-14.6); RBC Distribution Width SD 47.2 fl (35.1-43.9); Red Blood Count 3.87 M/mm3 (4.2-5.4); White Blood Count 8.5 K/mm3 (4.4-11.0)
[2022-03-27 08:45] LABS: Anion Gap 6 (5-15); BUN 23 mg/dL (7-18); Calcium,Total 8.8 mg/dL (8.5-10.1); Chloride 102 mmol/L (98-107); Creatinine, Serum 0.89 mg/dL (0.55-1.02); EST Glomerular Filtration Rate 66 mL/min (>60); Est Glom Filt Rate - Afr Amer 80 mL/min (>60); Glucose 116 mg/dL (74-106); Potassium 4.9 mmol/L (3.5-5.1); Sodium Level 138 mmol/L (136-145)
== END ==
LOC: OLS.SW300 05:00
PROVIDERS: PCP Surgery Vascular Surgery; Visit Provider Internal Medicine
DX: E11.9 Type 2 diabetes mellitus without complications (principal)
CPT/HCPCS: 36415; 80048; 85025

== ENCOUNTER → 2022-04-10 | Outpatient (REF) | payer MEDICARE, MEDICAID, SELFPAY ==
[2022-04-10 08:35] LABS: Absolute Lymphocyte Count 1.84 X10^3/uL (0.83-4.51); Absolute Neutrophil Count 4.4 X10^3/uL (2.0-7.7); Basophil# 0.07 X10^3/uL; Eosinophil# 0.22 X10^3/uL; Eosinophils% 3.1 % (0-5); Hematocrit 34.3 % (37-47); Hemoglobin 11.3 g/dL (12.0-15.0); Lymphocyte # 1.84 X10^3/ul (0.83-4.51); Lymphocyte % 25.7 % (19-41); Mean Corp Hgb Conc 32.9 g/dL (32-36); Mean Corpuscular Hgb 31.2 pg (27.0-32.0); Mean Corpuscular Volume 94.8 fL (81-99); Mean Platelet Vol. 10.3 fl (6.2-12.0); Monocyte# 0.65 X10^3/uL; Monocyte% 9.1 % (0-10); NRBC Flagged by Analyzer 0 % (0-5); Neutrophil # 4.35 X10^3/uL (2.7-7.7); Neutrophil % 60.8 % (47-70); Platelet Count 170 K/mm3 (150-450); RBC Distribution Width CV 13.9 % (11.6-14.6); RBC Distribution Width SD 48.1 fl (35.1-43.9); Red Blood Count 3.62 M/mm3 (4.2-5.4); White Blood Count 7.2 K/mm3 (4.4-11.0)
[2022-04-10 08:53] LABS: Anion Gap 5 (5-15); BUN 23 mg/dL (7-18); BUN/Creat Ratio 26.2 RATIO (10-20); Calcium,Total 8.8 mg/dL (8.5-10.1); Chloride 106 mmol/L (98-107); Creatinine, Serum 0.88 mg/dL (0.55-1.02); EST Glomerular Filtration Rate 67 mL/min (>60); Est Glom Filt Rate - Afr Amer 81 mL/min (>60); Glucose 80 mg/dL (74-106); Potassium 4.5 mmol/L (3.5-5.1); Sodium Level 141 mmol/L (136-145)
== END ==
LOC: OLS.SW300 05:00
PROVIDERS: PCP Surgery Vascular Surgery; Visit Provider Internal Medicine
DX: Z79.899 Other long term (current) drug therapy (principal)
CPT/HCPCS: 36415; 80048; 85025

== ENCOUNTER 2022-04-12 09:13 | Day surgery (SDC) | payer MEDICARE, MEDICAID, SELFPAY ==
--- NOTE | 2022-04-03 09:41 | HP.PCM_ITS ---
HPI - General HPI Narrative SANDY ORONA, is a 72 F who presents for laparoscopic cholecystectomy. Patient still has been having occasional issues with right upper quadrant pain after eating at the [facility]. Patient was scheduled a couple weeks previously for a laparoscopic cholecystectomy however there were issues with transportation. Patient did not undergo her ERCP and stent removal with Dr. Irizarry in February. Pt was to hold eliquis for 3 days--unsure if this was done per pt. From Office visit 12/18/2021: HPI: SANDY ORONA, is a 71 F who presents to the office today for gallstones.? Patient was originally admitted to the hospital back in August for gallstone pancreatitis.? At that time patient did undergo an ERCP with sphincterotomy with Dr. Irizarry.? Patient did not have a cholecystectomy at that time.? Patient comes in today to discuss cholecystectomy.? Patient denies any right upper quadrant pain nausea or vomiting.? Patient does still have her stent from her ERCP in place she states she is having that out February 27.? Patient is on Eliquis. [facility] Medical History (Updated 03/20/22 @ 12:05 by Hali Alexander) Anemia Anxiety and depression Arthritis Asthma Back pain Benign hypertension Bilateral lower extremity edema BiPAP (biphasic positive airway pressure) dependence Cholelithiasis Chronic acquired lymphedema Chronic back pain Chronic malnutrition Chronic stasis dermatitis of left lower extremity COPD (chronic obstructive pulmonary disease) Decreased pedal pulses Depression Diabetic ulcer of left foot Diabetic ulcer of right foot Diabetic ulcer of toe of left foot DVT (deep venous thrombosis) Elephantiasis Hammertoe of left foot High cholesterol History of edema History of kidney stones History of pain when walking History of stress test HLD (hyperlipidemia) Hoarseness Hypertension Increased BMI Insulin dependent diabetes mellitus Leg cramps Localized edema MRSA infection Nonhealing ulcer of left lower extremity with fat layer exposed Nonhealing ulcer of right lower extremity with fat layer exposed long term resident On home oxygen therapy RILEY (obstructive sleep apnea) PAF (paroxysmal atrial fibrillation) Peripheral neuropathy Renal lithiasis Rheumatic fever RLS (restless legs syndrome) Shortness of breath on exertion Type 2 diabetes mellitus Type 2 diabetes mellitus with diabetic polyneuropathy Ulcer of left foot with fat layer exposed Ulcer of right foot with fat layer exposed Venous insufficiency Venous stasis ulcer of right thigh with fat layer exposed Venous ulcer of left lower extremity with varicose veins Venous ulcer of right lower extremity with varicose veins Home Medications Morphine [Morphine Ir] 30 mg PO BID pain 02/16/14 [History Last Taken Unknown] albuterol sulfate 90 mcg/actuation aerosol inhaler (ProAir HFA) 1 - 2 puff inha lation Q4H PRN PRN Sob Or Anxiety 02/16/14 [History Last Taken Unknown] fluticasone propionate 50 mcg/actuation nasal spray,suspension 2 spray QHS allergies 02/16/14 [History Last Taken Unknown] oxybutynin chloride 5 mg tablet 15 mg PO DAILY bladder spasms 02/16/14 [History Last Taken Unknown] oxycodone-acetaminophen 5 mg-325 mg tablet 1 tab PO BID PRN Pain 02/16/14 [History Last Taken Unknown] potassium chloride 10 mEq tablet,extended release(part/cryst) 60 meq PO BID supplement 02/16/14 [History Last Taken Unknown] Basaglmichael Yeejenniffer U-100 8 units miscellaneous 0800 dm 05/07/19 [History Last T aken Unknown] furosemide 80 mg tablet 40 mg PO DAILY htn 05/07/19 [History Last Taken Unknown] acetaminophen 325 mg tablet 650 mg PO Q4H PRN Pain 09/09/21 [History Last Taken Unknown] atorvastatin 10 mg tablet (Lipitor) 10 mg PO QHS cholesterol 09/09/21 [History Last Taken Unknown] bisacodyl 10 mg rectal suppository 10 mg LA DAILY PRN Constipation 09/09/21 [History Last Taken Unknown] budesonide 0.5 mg/2 mL suspension for nebulization 0.5 mg inhalation BID sob 09/09/21 [History Last Taken Unknown] diltiazem HCl 360 mg capsule,24 hr,extended release 360 mg PO DAILY 09/09/21 [History Last Taken Unknown] ferrous sulfate 325 mg (65 mg iron) tablet (iron) 325 mg PO BID supplement 09/09/21 [History Last Taken Unknown] guaifenesin 100 mg/5 mL oral liquid 200 mg PO Q4H PRN Cough 09/09/21 [History Last Taken Unknown] metformin 1,000 mg tablet 1,000 mg PO DAILY DM 09/09/21 [History Last Taken Unknown] metformin 500 mg tablet 500 mg PO DAILY DM 09/09/21 [History Last Taken Unknown] modafinil 200 mg tablet 200 mg PO DAILY narcolepsy 09/09/21 [History Last Taken Unknown] multivitamin 1 tab PO DAILY supplement 09/09/21 [History Last Taken Unknown] nystatin 100,000 unit/gram topical powder 1 applic topical BID yeast 09/09/21 [History Last Taken Unknown] omeprazole 40 mg capsule,delayed release 40 mg PO DAILY gerd 09/09/21 [History Last Taken Unknown] oxybutynin chloride 5 mg tablet 5 mg PO QHS bladder spasms 09/09/21 [History Last Taken Unknown] rivaroxaban 2.5 mg tablet 2.5 mg PO QHS anticoagulant 09/09/21 [History Last Taken Unknown] spironolactone 50 mg tablet 50 mg PO DAILY 09/09/21 [History Last Taken Unknown] venlafaxine 75 mg tablet 75 mg PO DAILY depression 09/09/21 [History Last Taken Unknown] Lactobacillus acidophilus 1 billion cell capsule 10 mg PO DAILY 12/18/21 [History Last Taken Unknown] methenamine hippurate 1 gram tablet 0.5 g PO BID preventative 12/18/21 [History Last Taken Unknown] insulin lispro 100 unit/mL subcutaneous pen 5 unit subcut 1500 02/22/22 [History Last Taken Unknown] pregabalin 150 mg capsule 1 cap PO BID 02/22/22 [History Last Taken Unknown] Allergy/AdvReac Type Severity Reaction Status Date / Time aspirin Allergy Hives Verified 04/03/22 10:02 latex Allergy Rash Verified 04/03/22 10:02 Penicillins Allergy Hives Verified 04/03/22 10:02 Sulfa (Sulfonamide Allergy Hives Verified 04/03/22 10:02 Antibiotics) Family History Mother Heart disease Father Heart disease Surgical History (Updated 03/20/22 @ 12:05 by Hali Alexander) History of cardiac catheterization History of ERCP History of hysterectomy Hx of dilation and curettage Hx of toe surgery Social History housing: [facility] Smoking Status: Never smoker alcohol intake: never substance use type: does not use Vital Signs Vital Signs Vital Signs: Weight Weight: 233 lb Physical Exam Const alert, oriented x3 and no apparent distress HEENT normocephalic and head/scalp atraumatic Resp normal respiratory effort Cardio regular rate GI soft to palpation and non-tender; Negative for non-distended Palpation: Negative for guarding Extremity no clubbing, cyanosis or edema Neuro CN's II-XII intact bilaterally Psych mental status grossly normal Assessment & Plan Assessment/Plan (1) Cholelithiasis: QUALIFIERS: Biliary obstruction: with biliary obstruction Cholecystitis presence: without cholecystitis Cholelithiasis location: gallbladder Qualified Code(s): K80.21 - Calculus of gallbladder without cholecystitis with obstruction PLAN: Plan Laparoscopic cholecystectomy will have to be rescheduled as patient did not have her Eliquis held as we had an AC nurse call the facility at [facility]. I plan to call [facility] and talk to the director of sustainability as this has been an ongoing issue as last time she did not have transportation to her day of surgery. Monica Gutierrez M.D. Pager: [phone] [facility] [address] [place] [address], [address] [place] [id number] Office: [phone]
--- NOTE | 2022-04-03 09:49 | EKG12_ITS ---
Test Reason : PREOP Blood Pressure : / mmHG Vent. Rate : 071 BPM Atrial Rate : 071 BPM P-R Int : 208 ms QRS Dur : 084 ms QT Int : 364 ms P-R-T Axes : 053 023 063 degrees QTc Int : 395 ms Normal sinus rhythm Low voltage QRS Nonspecific ST abnormality Abnormal ECG When compared with ECG of 27-FEB-2022 12:27, No significant change was found Confirmed by DANIELA SNYDER, DEREK ([id number]), purchasing expeditor AMIRA SOLITARIO ([id number]) on 04/05/2022 9:42:51 AM Referred By: ABIMAEL Confirmed By:DEREK SUAREZ MD
[2022-04-12] VITALS (14 sets, daily range): BP systolic 98–150; BP diastolic 57–78; PULSE 60–88; RESP 16–18; TEMP 36.3–37.2; O2SAT 91–98; BMI 42.6
--- NOTE | 2022-04-12 | GALL_PTH ---
PATIENT: SANDY ORONA LOC: [facility] [place] U#:[id number] AGE/SX: 72/F ROOM: RE04/12/[address]: Dr. Monica Gutierrez MD : 1950 BED: DIS: 04/12/2022 SPEC #: [id number] RECD: 04/12/22 15:21 STATUS: FELIPA REYsabel #: [id number] ALEJANDRA: 04/12/22 00:[address]: Monica Gutierrez DEPT: SURGICAL PATHOLOGY RECD BY: Samuel Conner ENTERED: 04/13/22 07:20 SP TYPE: ALEXANDER FABIAN DR: Dr. Efren Roberts MD Tissues: Gallbladder, NOS Procedures: Surgery Specimen Level III HEADER OPERATION: Laparoscopic cholecystectomy with IOC PRE-OP DIAGNOSIS: Cholelithiasis TISSUE SUBMITTED: Gallbladder MICROSCOPIC DIAGNOSIS Gallbladder, cholecystectomy: Chronic cholecystitis and cholelithiasis. AM:gabino 04/16/2022 MICROSCOPIC DESCRIPTION Slides are reviewed. GROSS DESCRIPTION Received is one container labeled with the patient's name and designated gallbladder. The specimen consists of a gallbladder measuring 9 cm in length and up to 4 cm in diameter. The external surface is pink-hummel, smooth and glistening for the most part. Focally it is granular, hemorrhagic and contains cautery artifact. The gallbladder contains green-yellow mucoid bile, sludge material and multiple brownish-white to multifaceted stones measuring in aggregate 1.5 x 1.5 x 0.5 cm and 0.5 to 1 cm in greatest dimension. The mucosa is bile-stained and without any mass lesions. The gallbladder wall measures up to 0.4 cm in thickness. Sheep Farm Manager sections from the gallbladder and the cystic duct are submitted in one cassette. / SJ:rg 04/13/2022 :3 CPT: 35266
[2022-04-12] MEDS: Lactated Ringers 1,000 ML 15 ML IV (10:08)
[2022-04-12] MEDS: metroNIDAZOLE 500 MG/100 ML BAG 100 MG IV (10:09)
--- NOTE | 2022-04-12 10:36 | PCM.HP.BLA ---
History and Physical Date of Admission: 04/12/22 History & Physical Exam 04/03/22 0941 MR#:? [id number] Acct: [id number] Name: SANDY ORONA Rep #: [id number] :? 1950 72 From:? Monica Gutierrez MD PCP: Dr. Efern Roberts MD ? Status: [facility] [place] Location: [place] [address] HPI - General HPI Narrative SANDY ORONA, is a 72 F who presents for laparoscopic cholecystectomy.? Patient still has been having occasional issues with right upper quadrant pain after eating at the shelter.? Patient was scheduled a couple weeks previously for a laparoscopic cholecystectomy however there were issues with transportation.? Patient did not undergo her ERCP and stent removal with Dr. Irizarry in February.? Pt was to hold eliquis for 3 days--unsure if this was done per pt. From Office visit 12/18/2021: HPI: SANDY ORONA, is a 71 F who presents to the office today for gallstones.? Patient was originally admitted to the hospital back in August for gallstone pancreatitis.? At that time patient did undergo an ERCP with sphincterotomy with Dr. Irizarry.? Patient did not have a cholecystectomy at that time.? Patient comes in today to discuss cholecystectomy.? Patient denies any right upper quadrant pain nausea or vomiting.? Patient does still have her stent from her ERCP in place she states she is having that out February 27.? Patient is on Eliquis. [facility] Medical History?(Updated 03/20/22 @ 12:05 by Hali Alexander) Anemia Anxiety and depression Arthritis Asthma Back pain Benign hypertension Bilateral lower extremity edema BiPAP (biphasic positive airway pressure) dependence Cholelithiasis Chronic acquired lymphedema Chronic back pain Chronic malnutrition Chronic stasis dermatitis of left lower extremity COPD (chronic obstructive pulmonary disease) Decreased pedal pulses Depression Diabetic ulcer of left foot Diabetic ulcer of right foot Diabetic ulcer of toe of left foot DVT (deep venous thrombosis) Elephantiasis Hammertoe of left foot High cholesterol History of edema History of kidney stones History of pain when walking History of stress test HLD (hyperlipidemia) Hoarseness Hypertension Increased BMI Insulin dependent diabetes mellitus Leg cramps Localized edema MRSA infection Nonhealing ulcer of left lower extremity with fat layer exposed Nonhealing ulcer of right lower extremity with fat layer exposed intermediate resident On home oxygen therapy RILEY (obstructive sleep apnea) PAF (paroxysmal atrial fibrillation) Peripheral neuropathy Renal lithiasis Rheumatic fever RLS (restless legs syndrome) Shortness of breath on exertion Type 2 diabetes mellitus Type 2 diabetes mellitus with diabetic polyneuropathy Ulcer of left foot with fat layer exposed Ulcer of right foot with fat layer exposed Venous insufficiency Venous stasis ulcer of right thigh with fat layer exposed Venous ulcer of left lower extremity with varicose veins Venous ulcer of right lower extremity with varicose veins Home Medications Morphine [Morphine Ir] 30 mg PO BID pain 02/16/14 [History Last Taken Unknown] albuterol sulfate 90 mcg/actuation aerosol inhaler (ProAir HFA) 1 - 2 puff inhalation Q4H PRN PRN Sob Or Anxiety 02/16/14 [History Last Taken Unknown] fluticasone propionate 50 mcg/actuation nasal spray,suspension 2 spray QHS allergies 02/16/14 [History Last Taken Unknown] oxybutynin chloride 5 mg tablet 15 mg PO DAILY bladder spasms 02/16/14 [History Last Taken Unknown] oxycodone-acetaminophen 5 mg-325 mg tablet 1 tab PO BID PRN Pain 02/16/14 [History Last Taken Unknown] potassium chloride 10 mEq tablet,extended release(part/cryst) 60 meq PO BID supplement 02/16/14 [History Last Taken Unknown] Basaglmichael Mayo U-100 8 units miscellaneous 0800 dm 05/07/19 [History Last Taken Unknown] furosemide 80 mg tablet 40 mg PO DAILY htn 05/07/19 [History Last Taken Unknown] acetaminophen 325 mg tablet 650 mg PO Q4H PRN Pain 09/09/21 [History Last Taken Unknown] atorvastatin 10 mg tablet (Lipitor) 10 mg PO QHS cholesterol 09/09/21 [History Last Taken Unknown] bisacodyl 10 mg rectal suppository 10 mg WI DAILY PRN Constipation 09/09/21 [History Last Taken Unknown] budesonide 0.5 mg/2 mL suspension for nebulization 0.5 mg inhalation BID sob 09/09/21 [History Last Taken Unknown] diltiazem HCl 360 mg capsule,24 hr,extended release 360 mg PO DAILY 09/09/21 [History Last Taken Unknown] ferrous sulfate 325 mg (65 mg iron) tablet (iron) 325 mg PO BID supplement 09/09/21 [History Last Taken Unknown] guaifenesin 100 mg/5 mL oral liquid 200 mg PO Q4H PRN Cough 09/09/21 [History Last Taken Unknown] metformin 1,000 mg tablet 1,000 mg PO DAILY DM 09/09/21 [History Last Taken Unknown] metformin 500 mg tablet 500 mg PO DAILY DM 09/09/21 [History Last Taken Unknown] modafinil 200 mg tablet 200 mg PO DAILY narcolepsy 09/09/21 [History Last Taken Unknown] multivitamin 1 tab PO DAILY supplement 09/09/21 [History Last Taken Unknown] nystatin 100,000 unit/gram topical powder 1 applic topical BID yeast 09/09/21 [History Last Taken Unknown] omeprazole 40 mg capsule,delayed release 40 mg PO DAILY gerd 09/09/21 [History Last Taken Unknown] oxybutynin chloride 5 mg tablet 5 mg PO QHS bladder spasms 09/09/21 [History Last Taken Unknown] rivaroxaban 2.5 mg tablet 2.5 mg PO QHS anticoagulant 09/09/21 [History Last Taken Unknown] spironolactone 50 mg tablet 50 mg PO DAILY 09/09/21 [History Last Taken Unknown] venlafaxine 75 mg tablet 75 mg PO DAILY depression 09/09/21 [History Last Taken Unknown] Lactobacillus acidophilus 1 billion cell capsule 10 mg PO DAILY 12/18/21 [History Last Taken Unknown] methenamine hippurate 1 gram tablet 0.5 g PO BID preventative 12/18/21 [History Last Taken Unknown] insulin lispro 100 unit/mL subcutaneous pen 5 unit subcut 1500 02/22/22 [History Last Taken Unknown] pregabalin 150 mg capsule 1 cap PO BID 02/22/22 [History Last Taken Unknown] Allergy/AdvReac Type Severity Reaction Status Date / Time aspirin Allergy ? Hives Verified 04/03/22 10:02 latex Allergy ? Rash Verified 04/03/22 10:02 Penicillins Allergy ? Hives Verified 04/03/22 10:02 Sulfa (Sulfonamide Allergy ? Hives Verified 04/03/22 10:02 Antibiotics) ? Family History? Mother Heart diseaseFather Heart disease Surgical History?(Updated 03/20/22 @ 12:05 by Hali Alexander) History of cardiac catheterization History of ERCP History of hysterectomy Hx of dilation and curettage Hx of toe surgery Social History? housing:? shelter Smoking Status:? Never smoker alcohol intake:? never substance use type:? does not use Vital Signs Vital Signs Vital Signs: Weight Weight: ? 233 lb? Physical Exam Const alert, oriented x3 and no apparent distress HEENT normocephalic and head/scalp atraumatic Resp normal respiratory effort Cardio regular rate GI soft to palpation and non-tender; Negative for non-distended Palpation: Negative for guarding Extremity no clubbing, cyanosis or edema Neuro CN's II-XII intact bilaterally Psych mental status grossly normal Assessment & Plan Assessment/Plan (1) Cholelithiasis: QUALIFIERS: ?Biliary obstruction:?with biliary obstruction??Cholecystitis presence:?without cholecystitis??Cholelithiasis location:?gallbladder? Qualified Code(s):?K80.21 - Calculus of gallbladder without cholecystitis with obstruction PLAN: Plan Laparoscopic cholecystectomy will have to be rescheduled as patient did not have her Eliquis held as we had an AC nurse call the facility at [facility], [place].? I plan to call [facility] [place] and talk to the director emergency department as this has been an ongoing issue as last time she did not have transportation to her day of surgery. Monica Gutierrez M.D. Pager: [phone] [facility] [address] [place] [address], [address] [place] [address] Office: [phone] 04/03/22 1007 <Electronically signed by Monica Gutierrez MD>
[2022-04-12] MEDS: Ciprofloxacin 400 MG/200 ML BAG 200 MG IV (11:04)
[2022-04-12] MEDS: Bupivacaine 0.25% 30 ML Vial (11:28)
--- NOTE | 2022-04-12 11:30 | RAD_ITS ---
STUDY: INTRAOPERATIVE CHOLANGIOGRAM. REASON FOR EXAM: Female, 72 years old. LAPAROSCOPIC, CHOLECYSTECTOMY WITH IOC FLUOROSCOPY TIME (if supplied): ( 47.4 seconds ) minutes/seconds. A cine loop of 68 images was obtained. TECHNIQUE: An intraoperative cholangiogram was performed by the surgeon. Imaging was submitted. COMPARISON: None. FINDINGS: There is evidence of dilated intrahepatic biliary ducts. Mild dilatation of the common bile duct. There is narrowing of the distal aspect of the common duct. Contrast is seen entering the duodenum. RAD/Cholangiogram/ O R,Initial IMPRESSION: Dilated intra and extrahepatic biliary ducts with narrowing of the most distal portion of the common bile duct. There is flow of contrast into the duodenum. Electronically Signed: Mc Jalloh MD at 9:48 EDT ,
[2022-04-12 12:10] LABS: Bedside Glucose 91 mg/dL (74-106)
--- NOTE | 2022-04-12 12:44 | OP.PCM_ITS ---
Report of Operation Date of Procedure: 04/12/22 Pre-Operative Diagnosis: Symptomatic cholelithiasis, chronic cholecystitis Post-Operative Diagnosis: Same Surgery/Procedure Performed:: Laparoscopic cholecystectomy with cholangiograms Surgeon: Monica Gutierrez preschool disability teacher: Daniela Mackenzie Type of Anesthesia: General/Supplemental Anesthesiologist: Josiah Mratell Special Medications: Cipro 400 mg IV x1, Flagyl 500 mg IV x1 Specimen's removed: Gallbladder and stones Estimated Blood Loss (mL): 20 cc Description of Procedure: Indications: this is a 72 year-old female who developed abdominal pain/nausea/vomiting and on workup was found to have choledocholithiasis in [facility] in August 2021 status post ERCP with stent and cholelithiasis and patient continue to have some upper abdominal pain. Laparoscopic cholecystectomy was elected. Description procedure: The patient was placed on operating table in supine position. A timeout was completed verifying correct patient, procedure, site, position and special equipment prior to beginning procedure. General Anes thesia was induced. The abdomen was prepped and draped in usual sterile fashion. An incision was made in the natural skin line above the umbilicus. The fascia was elevated and incised. The peritoneum was elevated and incised. Entry into the peritoneum was confirmed visually and no bowel was noted in the vicinity of the incision. Triplett trocar was placed. The abdomen was insufflated with carbon dioxide to a pressure of 12-15 mmHg. Patient tolerated insufflation well. The laparoscope was then inserted and abdomen inspected. No injuries from initial trocar placement were noted. Additional trochars were then inserted in the following locations 5 mm trocar in the epigastrium and 2 more 5 mm trochars along the right costal margin. The abdomen was inspected no abnormalities were found. The table is placed in reverse Trendelenburg position with the right side up. The adhesions between the gallbladder and omentum were lysed sharply. The dome of the gallbladder was grasped with atraumatic grasper passed through the lateral port and retracted over the dome of the liver. Infundibulum was then grasped with atraumatic grasper through the midclavicular port and retracted to the right lower quadrant. This maneuver exposed Calot's triangle. The peritoneum overlying the gallbladder infundibulum was then incised and cystic duct and artery identified and circumferentially dissected. Edwards catheter was used for cholangiograms. The cholangiogram showed good filling of the dilated common bile duct into the duodenum with no filling defects, good filling of the right and left bile ducts as well. The cystic duct and artery were then doubly clipped and divided close to the gallbladder. The gallbladder then dissected from its peritoneal attachments by electrocautery. Erbe was used for hemostasis at the distal gallbladder fossa liver edge. Josette was also placed. Hemostasis was checked and the gallbladder and contained stones were removed using the endoscopic retrieval bag through the umbilical port. The gallbladder is passed off table as specimen. The gallbladder fossa was irrigated with saline and hemostasis obtained. There is no evidence of bleeding from the gallbladder fossa or cystic artery leakage of bile from the cystic duct stump. Secondary trochars removed under direct vision. No bleeding was noted the trocar sites. The laparoscope was withdrawn and umbilical trocar removed. The abdomen was allowed to collapse. The fascia of the 12 mm trocar was closed with a [id number] 0 Vicryl suture. The skin was closed with sutures of 4-0 Monocryl and Steri-Strips. The patient was extubated. The patient tolerated procedure well and was taken to the postanesthesia care unit in stable condition. Complications none
--- NOTE | 2022-04-12 12:47 | EX.PCM.DISCH ---
Discharge Instructions Diet Discharge Diet: Light diet - advance as tolerated Activity Discharge Activity: May Not Drive (while taking narcotic pain medications.) May shower in (days): 1 Lifting Restrictions: no lifting >20 lbs x 2 wks, no strenuous exercise for 4 wks Dressing / Incision Call your doctor if your incision/area has: Continuous Slow Oozing, Sudden Increased Bleeding, Increased Pain/ Swelling, Increased Redness, Foul Smelling Discharge and Swelling at the incision site Call your doctor if you observe: Fever of 101 or Higher Remove Dressing in: 2 days Cleanse incision/area with: Soap & Water Additional Dressing/Incision Instructions:: Steri-Strips will fall off in 7 to 10 days, if they do not fall off okay to remove after 10 days. Follow Up Care Please Follow Up With: Monica Gutierrez MD When: Call the office for a follow-up appointment 2 weeks; after 5 PM and on the weekends call [phone] with any concerns. Test Results: Test results from this visit will be discussed in further detail at your follow-up appointment, if applicable. Discharge Plan Admission Attending Provider: Monica Gutierrez Primary Care Provider: Efren Roberts Discharge Orders/Prescriptions Prescriptions: New oxycodone-acetaminophen 5-325 mg tablet 1 tab PO Q6H PRN (Reason: Pain) 3 Days Qty: 10 0RF Continued Lactobacillus acidophilus 1 billion cell capsule 10 mg PO DAILY oxycodone-acetaminophen 1 TABLET tablet 1 tab PO BID PRN (Reason: Pain) oxybutynin chloride 5 MG tablet 15 mg PO DAILY Rx Instructions: 15 in am and 5 in evening albuterol sulfate [ProAir HFA] 1 PUFF inhaler 1 - 2 puff inhalation Q4H PRN PRN (Reason: Sob Or Anxiety) fluticasone propionate 1 SPRAY spray,suspension 2 spray NASAL QHS potassium chloride 10 MEQ tablet 60 meq PO BID Label Comments: not sure if 10 or 20 mg bid Morphine [Morphine Ir] tablet 30 mg PO BID Basaglar Kwikpen U-100 8 units miscellaneous 0800 furosemide 80 MG tablet 40 mg PO DAILY metformin 500 mg Tablet 500 mg PO DAILY Rx Instructions: 1000 in am and 500 in evening atorvastatin [Lipitor] 10 mg Tablet 10 mg PO QHS diltiazem HCl 360 mg Capsule,Extended Release 24 Hr 360 mg PO DAILY ferrous sulfate [iron] 325 mg (65 mg iron) Tablet 325 mg PO BID omeprazole 40 mg Capsule,Delayed Release(Dr/Ec) 40 mg PO DAILY modafinil 200 mg Tablet 200 mg PO DAILY venlafaxine 75 mg Tablet 75 mg PO DAILY spironolactone 50 mg Tablet 50 mg PO DAILY metformin 1,000 mg Tablet 1,000 mg PO DAILY multivitamin Tablet 1 tab PO DAILY nystatin 100,000 unit/gram Powder 1 applic TOPICAL BID acetaminophen 325 mg Tablet 650 mg PO Q4H PRN (Reason: Pain) guaifenesin 100 mg/5 mL Liquid 200 mg PO Q4H PRN (Reason: Cough) bisacodyl 10 mg Suppository 10 mg CO DAILY PRN (Reason: Constipation) budesonide 0.5 mg/2 mL Suspension For Nebulization 0.5 mg INHALATION BID oxybutynin chloride 5 mg Tablet 5 mg PO QHS methenamine hippurate 1 gram tablet 0.5 g PO BID insulin lispro 100 unit/mL Insulin Pen 5 unit SUBCUT 1500 pregabalin 150 mg capsule 1 cap PO BID Held rivaroxaban 2.5 mg Tablet 2.5 mg PO QHS Hold Instructions: Resume on 04/15/22. Label Comments: PT TO STOP 3 DAYS PRIOR, LAST DOSE 02/23/22- ANDREW TINAJERO AT [facility] Referrals / Follow Up: Efren Roberts MD [Primary Care Provider] - Disposition Disposition (needs filled in before D/C Order can be placed): Detention Facility
[2022-04-12 13:35] LABS: Bedside Glucose 192 mg/dL (74-106)
== END 2022-04-12 16:35 | disposition skilled nursing facility (03) ==
LOC: SDC 09:16 → AC 09:17
PROVIDERS: PCP Surgery Vascular Surgery; Visit Provider Surgery
PROC: (CPT 47610; principal; 2022-04-12 10:40)
DX: K80.10 Calculus of gallbladder with chronic cholecystitis without obstruction (principal); J44.9 Chronic obstructive pulmonary disease, unspecified; E11.42 Type 2 diabetes mellitus with diabetic polyneuropathy; E11.59 Type 2 diabetes mellitus with other circulatory complications; I48.0 Paroxysmal atrial fibrillation; Z79.4 Long term (current) use of insulin; I10 Essential (primary) hypertension; M54.9 Dorsalgia, unspecified; E78.00 Pure hypercholesterolemia, unspecified; G89.29 Other chronic pain; G47.33 Obstructive sleep apnea (adult) (pediatric); Z86.718 Personal history of other venous thrombosis and embolism; Z99.81 Dependence on supplemental oxygen; Z79.84 Long term (current) use of oral hypoglycemic drugs; Z79.899 Other long term (current) drug therapy; Z79.51 Long term (current) use of inhaled steroids
CPT/HCPCS: 47563; 00790; 74300; 76000; 82962; 88304; 93005; J7120; J0744; J1610; J2405

== ENCOUNTER → 2022-04-24 | Outpatient (REF) | payer MEDICARE, SELFPAY ==
[2022-04-24 09:22] LABS: Absolute Lymphocyte Count 2.08 X10^3/uL (0.83-4.51); Absolute Neutrophil Count 4.4 X10^3/uL (2.0-7.7); Basophil# 0.06 X10^3/uL; Basophil% 0.8 % (0-1); Eosinophil# 0.26 X10^3/uL; Eosinophils% 3.5 % (0-5); Hematocrit 34.9 % (37-47); Hemoglobin 11.4 g/dL (12.0-15.0); Lymphocyte # 2.08 X10^3/ul (0.83-4.51); Lymphocyte % 27.8 % (19-41); Mean Corp Hgb Conc 32.7 g/dL (32-36); Mean Corpuscular Hgb 31.5 pg (27.0-32.0); Mean Corpuscular Volume 96.4 fL (81-99); Mean Platelet Vol. 10.1 fl (6.2-12.0); Monocyte# 0.68 X10^3/uL; Monocyte% 9.1 % (0-10); NRBC Flagged by Analyzer 0 % (0-5); Neutrophil # 4.38 X10^3/uL (2.7-7.7); Neutrophil % 58.4 % (47-70); Platelet Count 198 K/mm3 (150-450); RBC Distribution Width CV 13.8 % (11.6-14.6); Red Blood Count 3.62 M/mm3 (4.2-5.4); White Blood Count 7.5 K/mm3 (4.4-11.0)
[2022-04-24 09:39] LABS: Anion Gap 6 (5-15); BUN 24 mg/dL (7-18); BUN/Creat Ratio 24.9 RATIO (10-20); Calcium,Total 8.6 mg/dL (8.5-10.1); Chloride 106 mmol/L (98-107); Creatinine, Serum 0.96 mg/dL (0.55-1.02); EST Glomerular Filtration Rate 60 mL/min (>60); Est Glom Filt Rate - Afr Amer 73 mL/min (>60); Glucose 114 mg/dL (74-106); Potassium 4.9 mmol/L (3.5-5.1); Sodium Level 141 mmol/L (136-145)
== END ==
LOC: OLS.SW300 05:00
PROVIDERS: PCP Surgery Vascular Surgery; Visit Provider Internal Medicine
DX: E11.9 Type 2 diabetes mellitus without complications (principal); I10 Essential (primary) hypertension; E03.9 Hypothyroidism, unspecified
CPT/HCPCS: 36415; 80048; 85025

== ENCOUNTER → 2022-04-25 | Outpatient (REF) | payer MEDICARE, MEDICAID, SELFPAY ==
[2022-04-25 08:31] LABS: Absolute Lymphocyte Count 1.85 X10^3/uL (0.83-4.51); Absolute Neutrophil Count 4.2 X10^3/uL (2.0-7.7); Basophil# 0.05 X10^3/uL; Basophil% 0.7 % (0-1); Eosinophil# 0.24 X10^3/uL; Eosinophils% 3.5 % (0-5); Hematocrit 35.1 % (37-47); Hemoglobin 11.3 g/dL (12.0-15.0); Lymphocyte # 1.85 X10^3/ul (0.83-4.51); Lymphocyte % 26.6 % (19-41); Mean Corp Hgb Conc 32.2 g/dL (32-36); Mean Corpuscular Hgb 30.9 pg (27.0-32.0); Mean Corpuscular Volume 95.9 fL (81-99); Mean Platelet Vol. 10.3 fl (6.2-12.0); Monocyte# 0.56 X10^3/uL; Monocyte% 8.1 % (0-10); NRBC Flagged by Analyzer 0 % (0-5); Neutrophil # 4.22 X10^3/uL (2.7-7.7); Neutrophil % 60.7 % (47-70); Platelet Count 193 K/mm3 (150-450); RBC Distribution Width CV 13.6 % (11.6-14.6); RBC Distribution Width SD 47.8 fl (35.1-43.9); Red Blood Count 3.66 M/mm3 (4.2-5.4)
[2022-04-25 08:52] LABS: ALB/GLOB Ratio 0.7 RATIO (0.9-2.4); AST(SGOT) 18 U/L (15-37); Alanine Aminotransfer ALT/SGPT 11 U/L (13-56); Albumin, Serum 2.8 g/dL (3.2-5.0); Alkaline Phosphatase 124 U/L (45-117); Anion Gap 7 (5-15); BUN 22 mg/dL (7-18); BUN/Creat Ratio 23.6 RATIO (10-20); CRP 5.71 mg/L (0.0-3.0); Calcium,Total 8.6 mg/dL (8.5-10.1); Chloride 107 mmol/L (98-107); Creatinine, Serum 0.93 mg/dL (0.55-1.02); EST Glomerular Filtration Rate 62 mL/min (>60); Est Glom Filt Rate - Afr Amer 76 mL/min (>60); Globulin 3.9 g/dL (2.2-4.2); Glucose 124 mg/dL (74-106); Magnesium 2.2 mg/dL (1.6-2.6); Potassium 4.8 mmol/L (3.5-5.1); Protein, Total 6.7 g/dL (6.4-8.2); Sodium Level 139 mmol/L (136-145)
== END ==
LOC: OLS.SW300 04:56
PROVIDERS: PCP Surgery Vascular Surgery; Visit Provider Internal Medicine
DX: L08.9 Local infection of the skin and subcutaneous tissue, unspecified (principal)
CPT/HCPCS: 36415; 80053; 83735; 85025; 86140

== ENCOUNTER → 2022-05-08 | Outpatient (REF) | payer MEDICARE, MEDICAID, SELFPAY ==
[2022-05-08 08:45] LABS: Absolute Lymphocyte Count 2.07 X10^3/uL (0.83-4.51); Absolute Neutrophil Count 3.5 X10^3/uL (2.0-7.7); Basophil# 0.05 X10^3/uL; Basophil% 0.8 % (0-1); Eosinophil# 0.32 X10^3/uL; Eosinophils% 4.9 % (0-5); Hematocrit 35.9 % (37-47); Hemoglobin 11.8 g/dL (12.0-15.0); Lymphocyte # 2.07 X10^3/ul (0.83-4.51); Lymphocyte % 31.7 % (19-41); Mean Corp Hgb Conc 32.9 g/dL (32-36); Mean Corpuscular Hgb 31.6 pg (27.0-32.0); Mean Platelet Vol. 10.5 fl (6.2-12.0); Monocyte# 0.61 X10^3/uL; Monocyte% 9.3 % (0-10); NRBC Flagged by Analyzer 0 % (0-5); Neutrophil # 3.47 X10^3/uL (2.7-7.7); Neutrophil % 53.1 % (47-70); Platelet Count 174 K/mm3 (150-450); RBC Distribution Width CV 13.5 % (11.6-14.6); RBC Distribution Width SD 47.9 fl (35.1-43.9); Red Blood Count 3.74 M/mm3 (4.2-5.4); White Blood Count 6.5 K/mm3 (4.4-11.0)
[2022-05-08 08:53] LABS: Anion Gap 5 (5-15); BUN 26 mg/dL (7-18); BUN/Creat Ratio 28.1 RATIO (10-20); Calcium,Total 8.6 mg/dL (8.5-10.1); Chloride 105 mmol/L (98-107); Creatinine, Serum 0.92 mg/dL (0.55-1.02); EST Glomerular Filtration Rate 63 mL/min (>60); Est Glom Filt Rate - Afr Amer 76 mL/min (>60); Glucose 99 mg/dL (74-106); Potassium 4.7 mmol/L (3.5-5.1); Sodium Level 139 mmol/L (136-145)
== END ==
LOC: OLS.SW300 05:00
PROVIDERS: PCP Surgery Vascular Surgery; Visit Provider Internal Medicine
DX: J44.9 Chronic obstructive pulmonary disease, unspecified (principal); E11.9 Type 2 diabetes mellitus without complications; J96.01 Acute respiratory failure with hypoxia
CPT/HCPCS: 36415; 80048; 83735; 85025

== ENCOUNTER → 2022-05-22 | Outpatient (REF) | payer MEDICARE, MEDICAID, SELFPAY ==
[2022-05-22 09:12] LABS: Absolute Neutrophil Count 3.6 X10^3/uL (2.0-7.7); Basophil# 0.04 X10^3/uL; Basophil% 0.6 % (0-1); Eosinophils% 3.2 % (0-5); Hematocrit 35.3 % (37-47); Hemoglobin 11.5 g/dL (12.0-15.0); Lymphocyte % 28.5 % (19-41); Mean Corp Hgb Conc 32.6 g/dL (32-36); Mean Corpuscular Hgb 30.7 pg (27.0-32.0); Mean Corpuscular Volume 94.1 fL (81-99); Mean Platelet Vol. 10.2 fl (6.2-12.0); Monocyte# 0.64 X10^3/uL; Monocyte% 10.1 % (0-10); NRBC Flagged by Analyzer 0 % (0-5); Neutrophil # 3.62 X10^3/uL (2.7-7.7); Neutrophil % 57.3 % (47-70); Platelet Count 151 K/mm3 (150-450); RBC Distribution Width CV 13.3 % (11.6-14.6); Red Blood Count 3.75 M/mm3 (4.2-5.4); White Blood Count 6.3 K/mm3 (4.4-11.0)
[2022-05-22 09:26] LABS: Anion Gap 4 (5-15); BUN 22 mg/dL (7-18); BUN/Creat Ratio 27.8 RATIO (10-20); Calcium,Total 8.6 mg/dL (8.5-10.1); Chloride 109 mmol/L (98-107); Creatinine, Serum 0.79 mg/dL (0.55-1.02); EST Glomerular Filtration Rate 75 mL/min (>60); Est Glom Filt Rate - Afr Amer 91 mL/min (>60); Glucose 114 mg/dL (74-106); Potassium 4.4 mmol/L (3.5-5.1); Sodium Level 141 mmol/L (136-145)
== END ==
LOC: OLS.SW 05:00
PROVIDERS: PCP Surgery Vascular Surgery; Visit Provider Internal Medicine
DX: E11.9 Type 2 diabetes mellitus without complications (principal)
CPT/HCPCS: 36415; 80048; 85025

== ENCOUNTER 2022-05-25 14:12 | Inpatient (IN) | payer MEDICARE, MEDICAID, SELFPAY ==
[2022-05-25] VITALS (10 sets, daily range): BP systolic 109–123; BP diastolic 51–93; PULSE 65–78; RESP 16–20; TEMP 36.4–36.8; O2SAT 91–97; BMI 46.7; BMI 48.0
--- NOTE | 2022-05-25 14:29 | NURSING ---
PT O2 SATS NOTED TO DROP TO 82% ON ROOM AIR AT REST. THIS RN APPLIES 2L O2 VIA NC AT THIS TIME. PT TOLERATES WELL. O2 SATS INCREASE TO 93%.
--- NOTE | 2022-05-25 15:08 | EDS_ITS ---
HPI History of Present Illness Chief Complaint: Lower Extremity Injury Detail of Chief Complaint: Diabetic foot infection Informant: patient Onset/Context/Timing Onset: Weeks Narrative Narrative: Patient present secondary to diabetic foot infection. She states about 3 weeks ago she scraped her left second and third toes on some course stickers placed on her floor to prevent her from slipping. The next morning she noted some blood on her socks. She has diabetic neuropathy with decreased sensation in her lower extremities. She has already had her left first toe amputated. She states that they had been changing the dressing regularly and wounds seem to be improved until last evening. Yesterday the second and third toes seemed more swollen and red with cellulitis noted up onto her becerril. She states she has not felt well over the past 3 days but does not believe she had a fever. [facility] Medical History Anemia Anxiety and depression Arthritis Asthma Back pain Benign hypertension Bilateral lower extremity edema BiPAP (biphasic positive airway pressure) dependence Cholelithiasis Chronic acquired lymphedema Chronic back pain Chronic malnutrition Chronic stasis dermatitis of left lower extremity COPD (chronic obstructive pulmonary disease) Decreased pedal pulses Depression Diabetic ulcer of left foot Diabetic ulcer of right foot Diabetic ulcer of toe of left foot DVT (deep venous thrombosis) Elephantiasis Hammertoe of left foot High cholesterol History of edema History of kidney stones History of pain when walking History of stress test HLD (hyperlipidemia) Hoarseness Hypertension Increased BMI Insulin dependent diabetes mellitus Leg cramps Localized edema MRSA infection Nonhealing ulcer of left lower extremity with fat layer exposed Nonhealing ulcer of right lower extremity with fat layer exposed halfway resident On home oxygen therapy RILEY (obstructive sleep apnea) PAF (paroxysmal atrial fibrillation) Peripheral neuropathy Renal lithiasis Rheumatic fever RLS (restless legs syndrome) Shortness of breath on exertion Type 2 diabetes mellitus Type 2 diabetes mellitus with diabetic polyneuropathy Ulcer of left foot with fat layer exposed Ulcer of right foot with fat layer exposed Venous insufficiency Venous stasis ulcer of right thigh with fat layer exposed Venous ulcer of left lower extremity with varicose veins Venous ulcer of right lower extremity with varicose veins Home Medications fluticasone propionate 50 mcg/actuation nasal spray,suspension 1 spray QHS allergies 02/16/14 [History Last Taken 05/24/22] furosemide 80 mg tablet 40 mg PO DAILY EDEMA 05/07/19 [History Last Taken 05/25/22] acetaminophen 325 mg tablet 650 mg PO Q4H PRN Pain 09/09/21 [History Last Taken 05/23/22] atorvastatin 10 mg tablet (Lipitor) 10 mg PO QHS cholesterol 09/09/21 [History Last Taken 05/24/22] bisacodyl 10 mg rectal suppository 10 mg AL DAILY PRN Constipation 09/09/21 [History Last Taken Unknown] budesonide 0.5 mg/2 mL suspension for nebulization 0.5 mg inhalation BID sob 09/09/21 [History Last Taken Unknown] diltiazem HCl 360 mg capsule,24 hr,extended release 360 mg PO DAILY 09/09/21 [History Last Taken 05/25/22] ferrous sulfate 325 mg (65 mg iron) tablet (iron) 325 mg PO BID supplement 09/09/21 [History Last Taken 05/25/22] multivitamin 1 tab PO DAILY supplement 09/09/21 [History Last Taken 05/25/22] omeprazole 40 mg capsule,delayed release 40 mg PO DAILY gerd 09/09/21 [History Last Taken 05/25/22] oxybutynin chloride 5 mg tablet 5 mg PO QHS bladder spasms 09/09/21 [History Last Taken 05/24/22] rivaroxaban 2.5 mg tablet 2.5 mg PO QHS anticoagulant 09/09/21 [History Last Taken 05/24/22] spironolactone 50 mg tablet 50 mg PO DAILY 09/09/21 [History Last Taken 05/25/22] methenamine hippurate 1 gram tablet 0.5 g PO BID 12/18/21 [History Last Taken 05/25/22] insulin lispro 100 unit/mL subcutaneous pen (Humalog KwikPen (U-100) Insulin) 8 unit subcut DAILY DIABETES 02/22/22 [History Last Taken 05/25/22] pregabalin 150 mg capsule 1 cap PO BID PAIN 02/22/22 [History Last Taken 05/25/22] Lactobacillus acidophilus 1 tab PO/SL DAILY 05/25/22 [History Last Taken 05/25/22] insulin glargine 100 unit/mL (3 mL) subcutaneous pen (Basaglar KwikPen U-100 Insulin) 8 unit subcut DAILY diabetes 05/25/22 [History Last Taken 05/25/22] metformin 500 mg tablet,extended release 24 hr 1,500 mg PO DAILY DIABETES 05/25/22 [History Last Taken 05/25/22] modafinil 100 mg tablet 100 mg PO DAILY 05/25/22 [History Last Taken 05/25/22] morphine 30 mg tablet,extended release 30 mg PO BID PAIN 05/25/22 [History Last Taken 05/25/22] oxybutynin chloride 15 mg tablet,extended release 24 hr 15 mg PO DAILY BLADDER SPASMS 05/25/22 [History Last Taken 05/25/22] oxycodone-acetaminophen 5 mg-325 mg tablet 1 tab PO Q12H PRN Pain 05/25/22 [History Last Taken 05/16/22] potassium chloride 20 mEq tablet,extended release(part/cryst) 20 meq PO BID SUPPLEMENT 05/25/22 [History Last Taken 05/25/22] pramipexole 0.25 mg tablet (Mirapex) 0.25 mg PO QHS 05/25/22 [History Last Taken 05/24/22] venlafaxine 75 mg capsule,extended release 24 hr 75 mg PO DAILY 05/25/22 [History Last Taken 05/25/22] Allergy/AdvReac Type Severity Reaction Status Date / Time aspirin Allergy Hives Verified 05/25/22 14:13 latex Allergy Rash Verified 05/25/22 14:13 Penicillins Allergy Hives Verified 05/25/22 14:13 Sulfa (Sulfonamide Allergy Hives Verified 05/25/22 14:13 Antibiotics) Family History Mother Heart disease Father Heart disease Surgical History History of cardiac catheterization History of ERCP History of hysterectomy Hx of dilation and curettage Hx of toe surgery S/P laparoscopic cholecystectomy Social History housing: care home Smoking Status: Never smoker alcohol intake: never substance use type: does not use ROS ROS ED Constitutional Constitutional ED: Denies chills or fever(s) Eyes Eyes: Denies change in vision or discharge from eye(s) ENT ENT ED: Denies discharge from eye(s), rhinorrhea or sore throat Cardiovascular Cardiovascular: Denies chest pain or palpitations Respiratory/Chest Respiratory/Chest: Denies cough or dyspnea Gastrointestinal Gastrointestinal: Denies abdominal pain, diarrhea, nausea or vomiting Genitourinary Genitourinary ED: Denies dysuria Musculoskeletal Musculoskeletal: Reports extremity pain; Denies back pain Integumentary Reports other Details: Left second and third toe wound/infection ; Denies Abrasions or rash Neurologic Neurologic: Denies headache(s) or weakness Psychiatric Psychiatric: Denies anxiety or depression Allergic/Immunologic Allergic/Immunologic ED: Denies lip swelling or urticaria EXAM Physical Exam Const Vital Signs: 05/25/22 14:14 05/25/22 14:16 05/25/22 15:16 Temperature 98.1 F 98.1 F 98.3 F Temperature Source Temporal Temporal Temporal Pulse Rate 77 78 70 Respiratory Rate 16 18 18 Blood Pressure 118/71 118/71 120/56 L Blood Pressure Mean 86 86 77 Pulse Ox 93 91 93 Oxygen Delivery Method Room Air Room Air Nasal Cannula Oxygen Flow Rate (L/min) 05/25/22 16:16 Temperature 97.9 F Temperature Source Temporal Pulse Rate 71 Respiratory Rate 20 H Blood Pressure 109/55 L Blood Pressure Mean 73 Pulse Ox 92 Oxygen Delivery Method Nasal Cannula Oxygen Flow Rate (L/min) 2 Positive well nourished and well developed General Appearance ED: well developed HEENT Reports normocephalic and head/scalp atraumatic Eyes PERRL and EOMs intact bilaterally Neck supple Chest Wall inspection of chest normal and palpation of chest normal Resp normal respiratory effort and clear to auscultation bilaterally Cardio regular rate and regular rhythm GI normal to inspection, nondistended, normoactive bowel sounds Palpation: soft Extremity Extremity Narrative: First toeLeft foot: Is been previously amputated. Second and third toes are erythematous and swollen. The distal acid of the second toe is discolored with mild pus draining with palpation. Mild erythema noted onto the left becerril. Neuro oriented x3 Sensorium / Orientation: alert Psych mental status grossly normal MDM MDM MDM Narrative Medical decision making narrative: Blood work obtained along with blood cultures. Wound culture from the left second toe obtained. Left foot x-rays ordered. Lab Data Attestation: I reviewed the patient's lab results. Labs: Laboratory Results - last 24 hr 05/25/22 05/25/22 05/25/22 15:10 15:10 15:10 WBC 10.1 RBC 3.90 L Hgb 12.4 Hct 36.1 L MCV 92.6 MCH 31.8 MCHC 34.3 D RDW Std Deviation 45.8 H RDW Coeff of Melissa 13.3 Plt Count 163 MPV 9.4 Immature Gran % (Auto) 0.400 Neut % (Auto) 75.9 H Lymph % (Auto) 12.9 L Mcclain % (Auto) 8.8 Eos % (Auto) 1.5 Baso % (Auto) 0.5 Absolute Neuts (auto) 7.7 Absolute Lymphs (auto) 1.30 Nucleated RBC % 0 PT 14.5 INR 1.2 APTT 33.8 Sodium 138 Potassium 4.0 Chloride 100 Carbon Dioxide 30.0 Anion Gap 8 BUN 23 H Creatinine 1.06 H Estim Creat Clear Calc 35.14 Est GFR (MDRD) Af Amer 65 Est GFR (MDRD) Non-Af 54 L BUN/Creatinine Ratio 21.7 H Glucose 107 H Calcium 9.2 Radiography Diagnostic Testing: Clinical Impression(s) from Imaging Studies Foot X-Ray 05/25/22 15:23 IMPRESSION: Postsurgical changes of the distal phalanx of the great toe. Soft tissue swelling at the operative site and findings suspicious for recurrent acute osteomyelitis. This may be further assessed with MRI if clinically warranted Electronically Signed: Gianni Burnett MD at 16:46 EDT , Treatment and Re-Evaluation Narrative: Blood work is unremarkable with normal white count. 76% neutrophils noted. Chemistry studies unremarkable. Left foot x-rays per my interpretation reveal no obvious bony destruction. Radiologist feels that there may be slight destruction at the left great toe prior amputation site. Patient states there are 2 IV antibiotics that typically do well for her when given together. We obtained records from [facility] as our [employer] access was not working. They faxed us 41 pages of her prior care notes. It appears clindamycin and vancomycin are what she has been treated with previously. This has been ordered for the patient. I have spoken with podiatry who will see the patient and I will speak with hospitalist for admission as well. Discharge Plan Triage Chief Complaint: Lower Extremity Injury ED Provider: Aminta Curtis Dx/Rx/DC Orders Clinical Impression: Diabetic foot infection Prescriptions: No Action fluticasone propionate 1 SPRAY spray,suspension 1 spray NASAL QHS furosemide 80 MG tablet 40 mg PO DAILY atorvastatin [Lipitor] 10 mg Tablet 10 mg PO QHS diltiazem HCl 360 mg Capsule,Extended Release 24 Hr 360 mg PO DAILY ferrous sulfate [iron] 325 mg (65 mg iron) Tablet 325 mg PO BID omeprazole 40 mg Capsule,Delayed Release(Dr/Ec) 40 mg PO DAILY spironolactone 50 mg Tablet 50 mg PO DAILY rivaroxaban 2.5 mg Tablet 2.5 mg PO QHS Hold Instructions: Resume on 04/15/22. multivitamin Tablet 1 tab PO DAILY acetaminophen 325 mg Tablet 650 mg PO Q4H PRN (Reason: Pain) bisacodyl 10 mg Suppository 10 mg AL DAILY PRN (Reason: Constipation) budesonide 0.5 mg/2 mL Suspension For Nebulization 0.5 mg INHALATION BID oxybutynin chloride 5 mg Tablet 5 mg PO QHS methenamine hippurate 1 gram tablet 0.5 g PO BID insulin lispro [Humalog KwikPen Insulin] 100 unit/mL Insulin Pen 8 unit SUBCUT DAILY Rx Instructions: INJECT 8 UNITS SUBCUTANEOUSLY IN THE AFTERNOON pregabalin 150 mg capsule 1 cap PO BID venlafaxine 75 mg capsule,extended release 24hr 75 mg PO DAILY oxybutynin chloride 15 mg tablet extended release 24hr 15 mg PO DAILY morphine 30 mg tablet extended release 30 mg PO BID potassium chloride 20 mEq tablet,ER particles/crystals 20 meq PO BID pramipexole [Mirapex] 0.25 mg Tablet 0.25 mg PO QHS metformin 500 mg Tablet Extended Release 24 Hr 1,500 mg PO DAILY modafinil 100 mg Tablet 100 mg PO DAILY insulin glargine [Basaglar KwikPen U-100 Insulin] 100 unit/mL (3 mL) insulin pen 8 unit SUBCUT DAILY Lactobacillus acidophilus 1 tab PO/SL DAILY oxycodone-acetaminophen 5-325 mg tablet 1 tab PO Q12H PRN (Reason: Pain) Primary Care Provider: Efren Argueta Referrals: Efren Argueta DO [Primary Care Provider] - Disposition Disposition: [facility]
[2022-05-25 15:23] LABS: Absolute Neutrophil Count 7.7 X10^3/uL (2.0-7.7); Basophil# 0.05 X10^3/uL; Basophil% 0.5 % (0-1); Eosinophil# 0.15 X10^3/uL; Eosinophils% 1.5 % (0-5); Hematocrit 36.1 % (37-47); Hemoglobin 12.4 g/dL (12.0-15.0); Lymphocyte % 12.9 % (19-41); Mean Corp Hgb Conc 34.3 g/dL (32-36); Mean Corpuscular Hgb 31.8 pg (27.0-32.0); Mean Corpuscular Volume 92.6 fL (81-99); Mean Platelet Vol. 9.4 fl (6.2-12.0); Monocyte# 0.89 X10^3/uL; Monocyte% 8.8 % (0-10); NRBC Flagged by Analyzer 0 % (0-5); Neutrophil # 7.68 X10^3/uL (2.7-7.7); Neutrophil % 75.9 % (47-70); Platelet Count 163 K/mm3 (150-450); RBC Distribution Width CV 13.3 % (11.6-14.6); RBC Distribution Width SD 45.8 fl (35.1-43.9); White Blood Count 10.1 K/mm3 (4.4-11.0)
--- NOTE | 2022-05-25 15:23 | RAD_ITS ---
STUDY: X-RAY - LEFT FOOT CLINICAL: Female, 72 years old. infection TECHNIQUE: 3 view(s) of the foot. COMPARISON: None. FINDINGS: Normal talus, and tarsal bones. Small plantar calcaneal spur Normal visualized subtalar, talonavicular, calcaneocuboid, tarsal and tarsometatarsal articulations. Normal metatarsi. Normal metatarsophalangeal joint of the great toe. Normal tibial and fibular sesamoid bones. Normal interphalangeal joint of the great toe. Postsurgical changes status post amputation of the distal shaft of the distal phalanx of the great toe. There is focal subchondral lucency suspicious for recurrent infection. Normal second through fifth metatarsophalangeal joints. Normal interphalangeal joints and phalanges of the lesser toes. Soft tissue swelling of the distal aspect of the great toe.. RAD/Foot min 3 Views IMPRESSION: Postsurgical changes of the distal phalanx of the great toe. Soft tissue swelling at the operative site and findings suspicious for recurrent acute osteomyelitis. This may be further assessed with MRI if clinically warranted Electronically Signed: Gianni Burnett MD at 16:46 EDT ,
[2022-05-25 15:32] LABS: International Normalized Ratio 1.2; Partial Thromboplast Time 33.8 Seconds (24.1-36.2); Prothrombin Time (Protime)PT. 14.5 SECONDS (11.7-14.9)
[2022-05-25 15:47] LABS: Anion Gap 8 (5-15); BUN 23 mg/dL (7-18); BUN/Creat Ratio 21.7 RATIO (10-20); Calcium,Total 9.2 mg/dL (8.5-10.1); Chloride 100 mmol/L (98-107); Creatinine, Serum 1.06 mg/dL (0.55-1.02); EST Glomerular Filtration Rate 54 mL/min (>60); Est Glom Filt Rate - Afr Amer 65 mL/min (>60); Estimated Creatinine Clearance 35.14 ml/min; Glucose 107 mg/dL (74-106); Sodium Level 138 mmol/L (136-145)
--- NOTE | 2022-05-25 17:24 | PCM.HP.STD ---
HPI - General General Date of Admission: 05/25/22 HPI Narrative SANDY ORONA, is a 72 F who presents to the hospital with an infected left second toe. She states that 3 to 4 weeks ago she scraped it on and adhesive sticker to prevent falls at the correction and since then she has been getting wound care while at the correction. Its been looking well until about last night when it became very red and started to appear infected. X-ray of the left foot comments on possible osteomyelitis of the great toe which was amputated last May but does not make mention of the second toe. She does not have a white count. Given the concern for possible osteomyelitis in discussion with the ER admission was recommended. [facility] Medical History Anemia Anxiety and depression Arthritis Asthma Back pain Benign hypertension Bilateral lower extremity edema BiPAP (biphasic positive airway pressure) dependence Cholelithiasis Chronic acquired lymphedema Chronic back pain Chronic malnutrition Chronic stasis dermatitis of left lower extremity COPD (chronic obstructive pulmonary disease) Decreased pedal pulses Depression Diabetic ulcer of left foot Diabetic ulcer of right foot Diabetic ulcer of toe of left foot DVT (deep venous thrombosis) Elephantiasis Hammertoe of left foot High cholesterol History of edema History of kidney stones History of pain when walking History of stress test HLD (hyperlipidemia) Hoarseness Hypertension Increased BMI Insulin dependent diabetes mellitus Leg cramps Localized edema MRSA infection Nonhealing ulcer of left lower extremity with fat layer exposed Nonhealing ulcer of right lower extremity with fat layer exposed [facility] resident On home oxygen therapy RILEY (obstructive sleep apnea) PAF (paroxysmal atrial fibrillation) Peripheral neuropathy Renal lithiasis Rheumatic fever RLS (restless legs syndrome) Shortness of breath on exertion Type 2 diabetes mellitus Type 2 diabetes mellitus with diabetic polyneuropathy Ulcer of left foot with fat layer exposed Ulcer of right foot with fat layer exposed Venous insufficiency Venous stasis ulcer of right thigh with fat layer exposed Venous ulcer of left lower extremity with varicose veins Venous ulcer of right lower extremity with varicose veins Home Medications fluticasone propionate 50 mcg/actuation nasal spray,suspension 1 spray QHS allergies 02/16/14 [History Last Taken 05/24/22] furosemide 80 mg tablet 40 mg PO DAILY EDEMA 05/07/19 [History Last Taken 05/25/22] acetaminophen 325 mg tablet 650 mg PO Q4H PRN Pain 09/09/21 [History Last Taken 05/23/22] atorvastatin 10 mg tablet (Lipitor) 10 mg PO QHS cholesterol 09/09/21 [History Last Taken 05/24/22] bisacodyl 10 mg rectal suppository 10 mg AR DAILY PRN Constipation 09/09/21 [History Last Taken Unknown] budesonide 0.5 mg/2 mL suspension for nebulization 0.5 mg inhalation BID sob 09/09/21 [History Last Taken Unknown] diltiazem HCl 360 mg capsule,24 hr,extended release 360 mg PO DAILY 09/09/21 [History Last Taken 05/25/22] ferrous sulfate 325 mg (65 mg iron) tablet (iron) 325 mg PO BID supplement 09/09/21 [History Last Taken 05/25/22] multivitamin 1 tab PO DAILY supplement 09/09/21 [History Last Taken 05/25/22] omeprazole 40 mg capsule,delayed release 40 mg PO DAILY gerd 09/09/21 [History Last Taken 05/25/22] oxybutynin chloride 5 mg tablet 5 mg PO QHS bladder spasms 09/09/21 [History Last Taken 05/24/22] rivaroxaban 2.5 mg tablet 2.5 mg PO QHS anticoagulant 09/09/21 [History Last Taken 05/24/22] spironolactone 50 mg tablet 50 mg PO DAILY 09/09/21 [History Last Taken 05/25/22] methenamine hippurate 1 gram tablet 0.5 g PO BID 12/18/21 [History Last Taken 05/25/22] insulin lispro 100 unit/mL subcutaneous pen (Humalog KwikPen (U-100) Insulin) 8 unit subcut DAILY DIABETES 02/22/22 [History Last Taken 05/25/22] pregabalin 150 mg capsule 1 cap PO BID PAIN 02/22/22 [History Last Taken 05/25/22] Lactobacillus acidophilus 1 tab PO/SL DAILY 05/25/22 [History Last Taken 05/25/22] insulin glargine 100 unit/mL (3 mL) subcutaneous pen (Basaglar KwikPen U-100 Insulin) 8 unit subcut DAILY diabetes 05/25/22 [History Last Taken 05/25/22] metformin 500 mg tablet,extended release 24 hr 1,500 mg PO DAILY DIABETES 05/25/22 [History Last Taken 05/25/22] modafinil 100 mg tablet 100 mg PO DAILY 05/25/22 [History Last Taken 05/25/22] morphine 30 mg tablet,extended release 30 mg PO BID PAIN 05/25/22 [History Last Taken 05/25/22] oxybutynin chloride 15 mg tablet,extended release 24 hr 15 mg PO DAILY BLADDER SPASMS 05/25/22 [History Last Taken 05/25/22] oxycodone-acetaminophen 5 mg-325 mg tablet 1 tab PO Q12H PRN Pain 05/25/22 [History Last Taken 05/16/22] potassium chloride 20 mEq tablet,extended release(part/cryst) 20 meq PO BID SUPPLEMENT 05/25/22 [History Last Taken 05/25/22] pramipexole 0.25 mg tablet (Mirapex) 0.25 mg PO QHS 05/25/22 [History Last Taken 05/24/22] venlafaxine 75 mg capsule,extended release 24 hr 75 mg PO DAILY 05/25/22 [History Last Taken 05/25/22] Allergy/AdvReac Type Severity Reaction Status Date / Time aspirin Allergy Hives Verified 05/25/22 14:13 latex Allergy Rash Verified 05/25/22 14:13 Penicillins Allergy Hives Verified 05/25/22 14:13 Sulfa (Sulfonamide Allergy Hives Verified 05/25/22 14:13 Antibiotics) Family History Mother Heart disease Father Heart disease Surgical History History of cardiac catheterization History of ERCP History of hysterectomy Hx of dilation and curettage Hx of toe surgery S/P laparoscopic cholecystectomy Social History housing: correction Smoking Status: Never smoker alcohol intake: never substance use type: does not use ROS Constitutional Constitutional: Denies chills, fatigue, fever(s) or malaise Eyes Eyes: Denies blurry vision ENT HEENT: Denies headache(s) or nasal discharge Cardiovascular Cardiovascular: Denies chest pain, dyspnea on exertion or syncope Respiratory/Chest Respiratory/Chest: Denies cough, shortness of breath at rest or shortness of breath with exertion Gastrointestinal Gastrointestinal: Denies constipation, diarrhea, nausea or vomiting Genitourinary Genitourinary: Denies dysuria Integumentary Integumentary: Reports wounds Neurologic Neurologic: Denies focal weakness, numbness or tremor(s) Psychiatric Psychiatric: Denies anxiety or depression Vital Signs Vital Signs Vital Signs: 05/25/22 14:14 05/25/22 14:16 05/25/22 15:16 Temperature 98.1 F 98.1 F 98.3 F Temperature Source Temporal Temporal Temporal Pulse Rate 77 78 70 Respiratory Rate 16 18 18 Blood Pressure 118/71 118/71 120/56 L Blood Pressure Mean 86 86 77 Pulse Ox 93 91 93 Oxygen Delivery Method Room Air Room Air Nasal Cannula Oxygen Flow Rate (L/min) 05/25/22 16:16 Temperature 97.9 F Temperature Source Temporal Pulse Rate 71 Respiratory Rate 20 H Blood Pressure 109/55 L Blood Pressure Mean 73 Pulse Ox 92 Oxygen Delivery Method Nasal Cannula Oxygen Flow Rate (L/min) 2 Weight Weight: 254 lb 6.615 oz Body Mass Index (BMI) 46.7 Physical Exam Narrative General: Alert, Oriented x3, Cooperative, No apparent distress HEENT: Atraumatic, PERRLA, EOMI, Normocephalic Oral: Moist Mucosa Neck: Supple, No JVD Lungs: Clear to auscultation, Normal air movement, No rhonchi, No wheeze, No rales Cardiovascular: Regular rate, Regular Rhythm, Normal S1, Normal S2, No murmurs Abdomen: Soft, Non Tender, Non-Distended, No Hepato-splenomegaly Extremities: No edema, Capillary Refill Less than 3 Seconds Skin: Erythema and wound on her left second toe, the erythema does extend a little bit up her becerril Musculoskeletal: No Tenderness to Palpation of Joints or Extremities Neurological: Cranial nerves II-XII grossly intact, Motor Exam 5/5 strength throughout, Sensory exam intact to light touch and pain Psych/Mental Status: Normal Affect, Appropriate Results Lab / Micro Data Result Diagrams: 05/25/22 15:10 05/25/22 15:10 Labs: Laboratory Results - last 24 hr 05/25/22 15:10: WBC 10.1, RBC 3.90 L, Hgb 12.4, Hct 36.1 L, MCV 92.6, MCH 31.8, MCHC 34.3 D, RDW Std Deviation 45.8 H, RDW Coeff of Melissa 13.3, Plt Count 163, MPV 9.4, Immature Gran % (Auto) 0.400, Neut % (Auto) 75.9 H, Lymph % (Auto) 12.9 L, [place]isco[place] % (Auto) 8.8, Eos % (Auto) 1.5, Baso % (Auto) 0.5, Absolute Neuts (auto) 7.7, Absolute Lymphs (auto) 1.30, Nucleated RBC % 0 05/25/22 15:10: PT 14.5, INR 1.2, APTT 33.8 05/25/22 15:10: Sodium 138, Potassium 4.0, Chloride 100, Carbon Dioxide 30.0, Anion Gap 8, BUN 23 H, Creatinine 1.06 H, Estim Creat Clear Calc 35.14, Est GFR (MDRD) Af Amer 65, Est GFR (MDRD) Non-Af 54 L, BUN/Creatinine Ratio 21.7 H, Glucose 107 H, Calcium 9.2 Radiology Impression Foot X-Ray 05/25/22 15:23 IMPRESSION: Postsurgical changes of the distal phalanx of the great toe. Soft tissue swelling at the operative site and findings suspicious for recurrent acute osteomyelitis. This may be further assessed with MRI if clinically warranted Electronically Signed: Gianni Burnett MD at 16:46 EDT , Assessment & Plan Assessment/Plan (1) Diabetic foot infection: PLAN: Plan 1. Left foot diabetic ulcer with possible osteomyelitis/DM 2 with neuropathy ? Continue with clindamycin and vancomycin secondary to a penicillin allergy ? Wound cultures are pending from the ER ? We will obtain an MRI ? Podiatry has been consulted ? We will hold her home metformin ? Can resume her home long-acting insulin ? Sliding scale insulin ? Accu-Cheks AC at bedtime, will make adjustments as necessary 2. HTN/HLD/paroxysmal A. fib ? Blood pressures are stable ? Can resume her home blood pressure medications ? Continue with her extremely low-dose Xarelto, she does have a history of A. fib as well as DVT ? Continue with rate control medication 3. Chronic hypoxic respiratory failure secondary to COPD/RILEY ? She is on her baseline oxygen requirements of 2 to 5 L ? We will continue to monitor and can resume her home budesonide ? Continue with CPAP nightly 4. Chronic bilateral lower extremity lymphedema ? Continue with Lasix and Aldactone 5. Suspected narcolepsy ? Continue with Provigil ? Stable 6. Chronic back pain/anxiety/depression ? Stable ? Can resume her home pain medications as well as her home mental health medications 7. GERD ? Stable ? Continue with PPI DVT: Nicol Charges/Coding Visit Charges Inpatient E&M: 41065 Init Hosp L2
--- NOTE | 2022-05-25 17:34 | ED.RN ---
THIS RN CALLS AND UPDATES [facility] ON PT ADMISSION
--- NOTE | 2022-05-25 18:25 | PCM.CONS.GEN ---
Assessment & Plan Assessment/Plan (1) Type 2 diabetes mellitus with diabetic polyneuropathy: PLAN: Exam performed Radiographs reviewed no evidence of acute osteomyelitis to the left second or third digit. Some reactive bone changes to the distal aspect of the partial hallux amputation on the left foot this is likely secondary to heterotopic ossification from the initial surgical resection Patient demonstrates no evidence of leukocytosis, vital signs are stable Patient has significant cellulitis to her second and third digit which appears to extend into the left lower extremity At this time I recommend continued IV antibiotics, I suggest vancomycin and Zosyn with consideration of infectious disease consult. Today I dressed the wound sites with Betadine paint dry sterile dressing and Yong bandage wrap from the base of the toes to the widest portion of the calf with even compression on the left side. Swab cultures were taken in the ED ED, we will follow these. To ensure that no bone involvement or amputation is required we will order an MRI for the morning. Based on the clinical appearance of the toes deep infection cannot be ruled out, but I do feel the patient may respond well to IV antibiotics and may avoid surgical intervention. We will await the MRI results for definitive planning Will come evaluate the patient again in the morning. (2) Non-pressure chronic ulcer of other part of left foot with fat layer exposed: (3) Cellulitis of left foot: (4) Hammertoe of left foot: HPI Consult Data Date of Consult: 05/25/22 HPI Narrative Reason for Consultation: Left foot wound, infected HPI Narrative: SANDY ORONA, is a 72 F who presents with worsening redness and swelling to her left second and third digit with redness extending into her leg. Patient has been residing in [facility] for approximately 1 year now. 1 year prior patient underwent a left partial hallux amputation which required 6 weeks of IV antibiotics. During her stay in this nursing facility multiple complications occurred including susannah COVID, suffering from cholecystitis and other issues. This is prevented her from being discharged back to home. Today she presents with new onset infection to her left second and third toe after she notes that she was walking and tripped on safety strips that are meant to increased friction on the floor to prevent any slipping. She notes that this led to some abrasions on the tips of her second and third toes. This had been treated by the nursing facility with daily dressing changes including Xeroform and dry sterile dressing. She notes that over the past couple days there has been increased redness drainage warmth and pain to the site which is how she presents to the emergency room today. At current she denies any constitutional symptoms and notes that his pain is well controlled at rest. Patient is a type II diabetic with some neuropathy. Recent blood sugars demonstrate good blood glucose control. Patient has no other complaints at this time. [facility] Medical History Anemia Anxiety and depression Arthritis Asthma Back pain Benign hypertension Bilateral lower extremity edema BiPAP (biphasic positive airway pressure) dependence Cholelithiasis Chronic acquired lymphedema Chronic back pain Chronic malnutrition Chronic stasis dermatitis of left lower extremity COPD (chronic obstructive pulmonary disease) Decreased pedal pulses Depression Diabetic ulcer of left foot Diabetic ulcer of right foot Diabetic ulcer of toe of left foot DVT (deep venous thrombosis) Elephantiasis Hammertoe of left foot High cholesterol History of edema History of kidney stones History of pain when walking History of stress test HLD (hyperlipidemia) Hoarseness Hypertension Increased BMI Insulin dependent diabetes mellitus Leg cramps Localized edema MRSA infection Nonhealing ulcer of left lower extremity with fat layer exposed Nonhealing ulcer of right lower extremity with fat layer exposed care home resident On home oxygen therapy RILEY (obstructive sleep apnea) PAF (paroxysmal atrial fibrillation) Peripheral neuropathy Renal lithiasis Rheumatic fever RLS (restless legs syndrome) Seasonal allergies Shortness of breath on exertion Type 2 diabetes mellitus Type 2 diabetes mellitus with diabetic polyneuropathy Ulcer of left foot with fat layer exposed Ulcer of right foot with fat layer exposed Venous insufficiency Venous stasis ulcer of right thigh with fat layer exposed Venous ulcer of left lower extremity with varicose veins Venous ulcer of right lower extremity with varicose veins Home Medications fluticasone propionate 50 mcg/actuation nasal spray,suspension 1 spray QHS allergies 02/16/14 [History Last Taken 05/24/22] furosemide 80 mg tablet 40 mg PO DAILY EDEMA 05/07/19 [History Last Taken 05/25/22] acetaminophen 325 mg tablet 650 mg PO Q4H PRN Pain 09/09/21 [History Last Taken 05/23/22] atorvastatin 10 mg tablet (Lipitor) 10 mg PO QHS cholesterol 09/09/21 [History Last Taken 05/24/22] bisacodyl 10 mg rectal suppository 10 mg WA DAILY PRN Constipation 09/09/21 [History Last Taken Unknown] budesonide 0.5 mg/2 mL suspension for nebulization 0.5 mg inhalation BID sob 09/09/21 [History Last Taken Unknown] diltiazem HCl 360 mg capsule,24 hr,extended release 360 mg PO DAILY 09/09/21 [History Last Taken 05/25/22] ferrous sulfate 325 mg (65 mg iron) tablet (iron) 325 mg PO BID supplement 09/09/21 [History Last Taken 05/25/22] multivitamin 1 tab PO DAILY supplement 09/09/21 [History Last Taken 05/25/22] omeprazole 40 mg capsule,delayed release 40 mg PO DAILY gerd 09/09/21 [History Last Taken 05/25/22] oxybutynin chloride 5 mg tablet 5 mg PO QHS bladder spasms 09/09/21 [History Last Taken 05/24/22] rivaroxaban 2.5 mg tablet 2.5 mg PO QHS anticoagulant 09/09/21 [History Last Taken 05/24/22] spironolactone 50 mg tablet 50 mg PO DAILY 09/09/21 [History Last Taken 05/25/22] methenamine hippurate 1 gram tablet 0.5 g PO BID 12/18/21 [History Last Taken 05/25/22] insulin lispro 100 unit/mL subcutaneous pen (Humalog KwikPen (U-100) Insulin) 8 unit subcut DAILY DIABETES 02/22/22 [History Last Taken 05/25/22] pregabalin 150 mg capsule 1 cap PO BID PAIN 02/22/22 [History Last Taken 05/25/22] Lactobacillus acidophilus 1 tab PO/SL DAILY 05/25/22 [History Last Taken 05/25/22] insulin glargine 100 unit/mL (3 mL) subcutaneous pen (Basaglar KwikPen U-100 Insulin) 8 unit subcut DAILY diabetes 05/25/22 [History Last Taken 05/25/22] metformin 500 mg tablet,extended release 24 hr 1,500 mg PO DAILY DIABETES 05/25/22 [History Last Taken 05/25/22] modafinil 100 mg tablet 100 mg PO DAILY 05/25/22 [History Last Taken 05/25/22] morphine 30 mg tablet,extended release 30 mg PO BID PAIN 05/25/22 [History Last Taken 05/25/22] oxybutynin chloride 15 mg tablet,extended release 24 hr 15 mg PO DAILY BLADDER SPASMS 05/25/22 [History Last Taken 05/25/22] oxycodone-acetaminophen 5 mg-325 mg tablet 1 tab PO Q12H PRN Pain 05/25/22 [History Last Taken 05/16/22] potassium chloride 20 mEq tablet,extended release(part/cryst) 20 meq PO BID SUPPLEMENT 05/25/22 [History Last Taken 05/25/22] pramipexole 0.25 mg tablet (Mirapex) 0.25 mg PO QHS 05/25/22 [History Last Taken 05/24/22] venlafaxine 75 mg capsule,extended release 24 hr 75 mg PO DAILY 05/25/22 [History Last Taken 05/25/22] Allergy/AdvReac Type Severity Reaction Status Date / Time aspirin Allergy Hives Verified 05/25/22 14:13 latex Allergy Rash Verified 05/25/22 14:13 Penicillins Allergy Hives Verified 05/25/22 14:13 Sulfa (Sulfonamide Allergy Hives Verified 05/25/22 14:13 Antibiotics) Family History Mother Heart disease Father Heart disease Surgical History History of cardiac catheterization History of ERCP History of hysterectomy Hx of dilation and curettage Hx of toe surgery S/P laparoscopic cholecystectomy Social History housing: assisted Smoking Status: Never smoker alcohol intake: never substance use type: does not use ROS Constitutional Constitutional: Denies daytime sleepiness, increased appetite or lethargy Eyes Eyes: Denies blind spots, decreased night vision or excessive blinking ENT HEENT: Denies change in voice, facial pain or mouth lesions Respiratory/Chest Respiratory/Chest: Denies change in phlegm color, dyspnea on exertion or mouth breathing Gastrointestinal Gastrointestinal: Denies change in bowel habits, diarrhea or dry heaves Genitourinary Genitourinary: Denies burning urination, change in libido or oliguria Physical Exam Narrative Patient alert oriented person time. Patient reports she ambulates assisted by a walker. Vascular: Dorsalis pedis posterior tibial pulses palpable 2 out of 4 to bilateral lower extremities. Capillary fill time is brisk to all digits bilaterally. There is some pitting edema noted to bilateral lower EXTR lower extremity extending from the foot into the calf. Some atrophic skin joint changes noted with loss of digital hair growth taut shiny appearance of the skin. Neurologic: Light touch protective sensation absent to bilateral forefoot reestablished midfoot. Dermatologic: Full-thickness thickness wound to distal tuft of the left second digit. Lysed bullous to distal left second digit. Diffuse edema and erythema noted to the second digit along with warmth. Diffuse edema erythema and warmth to the distal aspect of the left third digit. No deep probing noted to the wound or undermining. Musculoskeletal: There are some wound forming risk factors in this diabetic neuropathic patient which are secondary to rigid hammertoe contractures of the second through fifth digits bilaterally. No pain with calf squeeze or palpation of popliteal fossa Lab / Micro Data Result Diagrams: 05/25/22 15:10 05/25/22 15:10 Labs: Laboratory Results - last 24 hr 05/25/22 15:10: WBC 10.1, RBC 3.90 L, Hgb 12.4, Hct 36.1 L, MCV 92.6, MCH 31.8, MCHC 34.3 D, RDW Std Deviation 45.8 H, RDW Coeff of Melissa 13.3, Plt Count 163, MPV 9.4, Immature Gran % (Auto) 0.400, Neut % (Auto) 75.9 H, Lymph % (Auto) 12.9 L, Monona % (Auto) 8.8, Eos % (Auto) 1.5, Baso % (Auto) 0.5, Absolute Neuts (auto) 7.7, Absolute Lymphs (auto) 1.30, Nucleated RBC % 0 05/25/22 15:10: PT 14.5, INR 1.2, APTT 33.8 05/25/22 15:10: Sodium 138, Potassium 4.0, Chloride 100, Carbon Dioxide 30.0, Anion Gap 8, BUN 23 H, Creatinine 1.06 H, Estim Creat Clear Calc 35.14, Est GFR (MDRD) Af Amer 65, Est GFR (MDRD) Non-Af 54 L, BUN/Creatinine Ratio 21.7 H, Glucose 107 H, Calcium 9.2 Radiology Impression Foot X-Ray 10/28/22 15:23 IMPRESSION: Postsurgical changes of the distal phalanx of the great toe. Soft tissue swelling at the operative site and findings suspicious for recurrent acute osteomyelitis. This may be further assessed with MRI if clinically warranted Electronically Signed: Gianni Burnett MD at 16:46 EDT ,
[2022-05-25] MEDS: Clindamycin 600 MG/50 ML BAG 100 MG IV ×2 (18:41→23:58)
--- NOTE | 2022-05-25 19:23 | ART_ITS ---
Reason For Study: Ulcer Procedure A bilateral lower extremity continuous wave Doppler with analog waveform analysis,segmental pressures,and ankle brachial indexes without exercise. Left Segmental Pressures Left posterior tibial artery = 123mmHg. Left dorsalis pedis artery = 116mmHg. Right Segmental Pressures Right brachial= 107mmHg. Right posterior tibial artery = 121mmHg. Right dorsalis pedis artery = 114mmHg. Right digit = 93 mmHg. Indices The right ankle brachial index by the posterior tibial artery is 1.13. The right ankle brachial index by the dorsalis pedis is 1.07. The right digital-brachial index is 0.87. The left ankle brachial index by the posterior tibial artery is 1.15. The left ankle brachial index by the dorsalis pedis is 1.08. VL/Lower Ext Art Exam w/o Exercis Interpretation Summary Triphasic Doppler waveforms are noted at ankle level bilaterally. Pulse-volume recordings appear satisfactory at all levels bilaterally, but not evaluated at digital level on t he left due to ulceration and amputation. Resting ankle-brachial indices are normal bilaterall y. The right digital- brachial index is normal. The left digital-brachial index was not determined du e to ulceration and amputation. There is no evidence of significant arterial occlusive disease in the lower ext remities bilaterally. Ordering Physician: Malachi Elaine Referring Physician: Efren Argueta Performed By: Urmila Means RDCS/RVT
--- NOTE | 2022-05-25 20:35 | PCM.RX.CS ---
Consult Pharmacy has been consulted to manage selected antiobiotic: Vancomycin Type of Consult: New start Suspected Infection: Skin/Soft tissue Prior Doses of Antibiotics Received/Current Regimen: Loading dose of 1750mg iv x 1 in ER on 05.25.22. Labs: Sodium 138 mmol/L (136-145) 05/25/22 15:10 Potassium 4.0 mmol/L (3.5-5.1) 05/25/22 15:10 Chloride 100 mmol/L (98-107) 05/25/22 15:10 Carbon Dioxide 30.0 mmol/L (21.0-32.0) 05/25/22 15:10 Anion Gap 8 (5-15) 05/25/22 15:10 BUN 23 mg/dL (7-18) H 05/25/22 15:10 Creatinine 1.06 mg/dL (0.55-1.02) H 05/25/22 15:10 Est GFR (MDRD) Af Amer 65 mL/min (>60) 05/25/22 15:10 Est GFR (MDRD) Non-Af 54 mL/min (>60) L 05/25/22 15:10 BUN/Creatinine Ratio 21.7 RATIO (10-20) H 05/25/22 15:10 Glucose 107 mg/dL (74-106) H 05/25/22 15:10 Weight used for dosin.4 kg Estimated Creatinine Clearance: 55ml/min Goal Trough: 15-20 mcg/mL Pharmacy Plan for Drug Dosing: A calculated SCrCl of ~55ml/min was determined from adjusted body weight of 74.7kg. Dosing will begin with 1250mg iv q12h per protocol. Trough level to be done on 05.27.22 before 4th cumulative dose. Pharmacy Service will continue to monitor and adjust dosing as required. Follow-Up Labs: Trough Vancomycin - 05.27.22 @0630 before 0700 dose
[2022-05-25] MEDS: Atorvastatin Calcium 10 MG Tablet PO (22:35)
[2022-05-25] MEDS: Pramipexole Di-HCl 0.25 MG Tablet PO (22:35)
[2022-05-25] MEDS: Pregabalin 75 MG Capsule 150 MG PO (22:35)
[2022-05-25] MEDS: Oxybutynin 5 MG Tablet PO (22:35)
[2022-05-25] MEDS: morphine SR 15 MG Tablet 30 MG PO (22:35)
[2022-05-25] MEDS: Methenamine Hippurate 1 GM Tablet 0.5 GM PO (22:36)
[2022-05-25] MEDS: Rivaroxaban 2.5 MG Tablet PO (22:36)
[2022-05-25] MEDS: Potassium Chloride Oral Tablet 20 MEQ PO (22:36)
[2022-05-25] MEDS: 0.9% Saline Lock 10 ML Syringe IV (23:59)
[2022-05-26] VITALS (16 sets, daily range): BP systolic 96–115; BP diastolic 51–72; PULSE 58–72; RESP 12–20; TEMP 36.5–36.8; O2SAT 84–99
[2022-05-26 00:36] LABS: Bedside Glucose 137 mg/dL (74-106)
[2022-05-26] MEDS: Clindamycin 600 MG/50 ML BAG 100 MG IV ×2 (05:49→14:22)
[2022-05-26 06:04] LABS: Absolute Lymphocyte Count 1.46 X10^3/uL (0.83-4.51); Absolute Neutrophil Count 3.5 X10^3/uL (2.0-7.7); Basophil# 0.05 X10^3/uL; Basophil% 0.9 % (0-1); Eosinophil# 0.21 X10^3/uL; Eosinophils% 3.6 % (0-5); Hematocrit 33.4 % (37-47); Hemoglobin 11.2 g/dL (12.0-15.0); Lymphocyte # 1.46 X10^3/ul (0.83-4.51); Lymphocyte % 25.1 % (19-41); Mean Corp Hgb Conc 33.5 g/dL (32-36); Mean Corpuscular Hgb 31.5 pg (27.0-32.0); Mean Corpuscular Volume 93.8 fL (81-99); Mean Platelet Vol. 9.8 fl (6.2-12.0); Monocyte# 0.55 X10^3/uL; Monocyte% 9.5 % (0-10); NRBC Flagged by Analyzer 0 % (0-5); Neutrophil # 3.53 X10^3/uL (2.7-7.7); Neutrophil % 60.7 % (47-70); Platelet Count 149 K/mm3 (150-450); RBC Distribution Width CV 13.4 % (11.6-14.6); RBC Distribution Width SD 45.5 fl (35.1-43.9); Red Blood Count 3.56 M/mm3 (4.2-5.4); White Blood Count 5.8 K/mm3 (4.4-11.0)
[2022-05-26 06:21] LABS: Bedside Glucose 107 mg/dL (74-106)
[2022-05-26 06:45] LABS: Anion Gap 7 (5-15); BUN 20 mg/dL (7-18); BUN/Creat Ratio 23.1 RATIO (10-20); Calcium,Total 8.7 mg/dL (8.5-10.1); Chloride 102 mmol/L (98-107); Creatinine, Serum 0.87 mg/dL (0.55-1.02); EST Glomerular Filtration Rate 68 mL/min (>60); Est Glom Filt Rate - Afr Amer 82 mL/min (>60); Estimated Creatinine Clearance 42.81 ml/min; Glucose 92 mg/dL (74-106); Sodium Level 138 mmol/L (136-145)
--- NOTE | 2022-05-26 07:00 | MRI_ITS ---
STUDY: MRI LEFT FOREFOOT WITHOUT CONTRAST REASON FOR EXAM: Female, 72 years old. Left foot infection with possible bone involvement TECHNIQUE: Standardized fat and water weighted pulse sequences were obtained in all 3 orthogonal planes. COMPARISON: X-ray May 25, 2022 FINDINGS: Normal metatarsophalangeal joint of the hallux. Normal tibial and fibular sesamoids, with normal sesamoids-first metatarsal articulations. Normal interphalangeal joint of the hallux. Normal proximal phalanx of the great toe. There is amputation of the distal phalanx. Normal medial and lateral heads of the flexor hallucis brevis tendons. Normal flexor and extensor hallucis longus tendons. Normal second through fifth metatarsophalangeal (MTP) joints. There is degenerative change of the interphalangeal joints of the second through fifth toes. Normal proximal, middle and distal phalanges of the second through fifth toes. Normal first through fourth intermetatarsal spaces. Normal flexor and extensor tendons of the second through fifth toes. Normal visualized metatarsi. Normal intrinsic muscles of the forefoot. There is no demonstrated soft tissue abnormality. There is no demonstrated fracture. MRI/Lower Ext/No Jt/w/o IMPRESSION: There is degenerative and postoperative change. No MRI evidence of osteomyelitis. Electronically Signed: Donal Carrera MD at 11:16 EDT ,
[2022-05-26] MEDS: Budesonide Respules 0.5 MG/2 ML AMPUL.NEB. INHALATION ×2 (07:08→18:55)
[2022-05-26] MEDS: Ferrous Sulfate 325 MG Tablet PO ×2 (10:21→16:21)
[2022-05-26] MEDS: Spironolactone 50 MG Tablet PO (10:23)
[2022-05-26] MEDS: Menthol/Lanolin/Calamine/Znox 113 GM Tube 1 APPLIC TOPICAL ×2 (10:23→20:30)
[2022-05-26] MEDS: dilTIAZem CD 180 MG Capsule 360 MG PO (10:24)
[2022-05-26] MEDS: Tolterodine Tartrate 4 MG CAP.SA PO (10:25)
[2022-05-26] MEDS: Venlafaxine XR 75 MG Capsule PO (10:25)
[2022-05-26] MEDS: Potassium Chloride Oral Tablet 20 MEQ PO ×2 (10:26→20:39)
[2022-05-26] MEDS: Furosemide 40 MG Tablet PO (10:27)
[2022-05-26] MEDS: Pantoprazole Sodium 40 MG Tablet PO (10:30)
[2022-05-26] MEDS: Nystatin Powder 15gm Bottle 1 APPLIC TOPICAL ×2 (10:30→20:40)
--- NOTE | 2022-05-26 10:30 | PCM.PROGNOTE ---
Subjective Subjective 72-year-old female seen bedside for follow-up on second and third digit ulceration on the left side. Patient denies constitutional's this morning. Patient denies pain. Patient notes she has been ambulating on the site without surgical shoe. No other complaints at this time. Objective Data Objective Data Vital Signs: Vital Signs Temp Pulse Resp BP Pulse Ox O2 Del Method O2 Flow Rate 97.7 F L 71 18 110/56 L 93 Room Air 1 05/26/22 07:43 05/26/22 07:43 05/26/22 07:43 05/26/22 07:43 05/26/22 10:14 05/26/22 10:14 05/26/22 07:43 FiO2 30 05/26/22 02:16 Oxygen Flow Rate (L/min) 1 Oxygen Delivery Method Room Air Weight: 115.4 kg Body Mass Index (BMI) 48.0 Intake & Output: Intake and Output for Last 24 Hours 05/24/22 05/25/22 05/26/22 23:59 23:59 23:59 Intake Total 695 / 695 100 / 100 Output Total 0 / 0 Balance 695 / 695 100 / 100 Lab / Micro Data Result Diagrams: 05/26/22 05:12 05/26/22 05:12 Labs: Laboratory Results - last 24 hr 05/25/22 15:10: WBC 10.1, RBC 3.90 L, Hgb 12.4, Hct 36.1 L, MCV 92.6, MCH 31.8, MCHC 34.3 D, RDW Std Deviation 45.8 H, RDW Coeff of Melissa 13.3, Plt Count 163, MPV 9.4, Immature Gran % (Auto) 0.400, Neut % (Auto) 75.9 H, Lymph % (Auto) 12.9 L, Castro % (Auto) 8.8, Eos % (Auto) 1.5, Baso % (Auto) 0.5, Absolute Neuts (auto) 7.7, Absolute Lymphs (auto) 1.30, Nucleated RBC % 0 05/25/22 15:10: PT 14.5, INR 1.2, APTT 33.8 05/25/22 15:10: Sodium 138, Potassium 4.0, Chloride 100, Carbon Dioxide 30.0, Anion Gap 8, BUN 23 H, Creatinine 1.06 H, Estim Creat Clear Calc 35.14, Est GFR (MDRD) Af Amer 65, Est GFR (MDRD) Non-Af 54 L, BUN/Creatinine Ratio 21.7 H, Glucose 107 H, Calcium 9.2 05/25/22 22:47: POC Glucose 137 H 05/26/22 05:12: WBC 5.8, RBC 3.56 L, Hgb 11.2 L, Hct 33.4 L, MCV 93.8, MCH 31.5, MCHC 33.5, RDW Std Deviation 45.5 H, RDW Coeff of Melissa 13.4, Plt Count 149 L, MPV 9.8, Immature Gran % (Auto) 0.200, Neut % (Auto) 60.7, Lymph % (Auto) 25.1, Castro % (Auto) 9.5, Eos % (Auto) 3.6, Baso % (Auto) 0.9, Absolute Neuts (auto) 3.5, Absolute Lymphs (auto) 1.46, Nucleated RBC % 0 05/26/22 05:12: Sodium 138, Potassium 4.0, Chloride 102, Carbon Dioxide 29.0, Anion Gap 7, BUN 20 H, Creatinine 0.87, Estim Creat Clear Calc 42.81, Est GFR (MDRD) Af Amer 82, Est GFR (MDRD) Non-Af 68, BUN/Creatinine Ratio 23.1 H, Glucose 92, Calcium 8.7 05/26/22 05:48: POC Glucose 107 H Radiography Diagnostic Testing: Radiology Impression Foot X-Ray 05/25/22 15:23 IMPRESSION: Postsurgical changes of the distal phalanx of the great toe. Soft tissue swelling at the operative site and findings suspicious for recurrent acute osteomyelitis. This may be further assessed with MRI if clinically warranted Electronically Signed: Gianni Burnett MD at 16:46 EDT , Physical Exam Narrative Neurovascular status unchanged from previous evaluation. Full-thickness wound noted to the distal tuft of the left second digit at the apex of a hammertoe contracture. Similar issue to the left third digit on the distal tuft. There is noted to be diffuse erythema edema to the left second digit unchanged from previous evaluation. Mild erythema edema to left third digit. Musculoskeletal rigid hammertoe contractures left second and third digits which are contributing to wound formation. Assessment & Plan Assessment/Plan (1) Type 2 diabetes mellitus with diabetic polyneuropathy: PLAN: Exam performed Radiographs reviewed no evidence of acute osteomyelitis to the left second or third digit. Some reactive bone changes to the distal aspect of the partial hallux amputation on the left foot this is likely secondary to heterotopic ossification from the initial surgical resection MRI arrived reviewed, no radiologist read yet, on STIR and T2 imaging there appears to be some reactive edema to the distal phalanx of the left second digit. This does not correlate with T1 imaging and the cortex appears to be intact at this time. MRI does not represent bobbi osteomyelitis of the left second digit. Due to clinical appearance of the toe with minimal improvement overnight patient would likely benefit from partial second digit amputation with flexor tenotomy of the left third digit to assist hammertoe contracture. Due to vascular access issues, PICC line ordered. Will you reevaluate the patient on Saturday morning to see if there is any response to IV antibiotics. If there is no improvement we will plan to proceed with partial digital amputation at the left second digit with flexor tenotomy of the left third digit on Saturday. Patient demonstrates no evidence of leukocytosis, vital signs are stable Redressed the site with Betadine paint DSD Yong wrap for compression. Discussed with nurse to dispense surgical shoe for strict heel weightbearing assisted by walker. Will follow up with the patient tomorrow on Saturday. (2) Non-pressure chronic ulcer of other part of left foot with fat layer exposed: (3) Cellulitis of left foot: (4) Hammertoe of left foot:
[2022-05-26] MEDS: morphine SR 15 MG Tablet 30 MG PO ×2 (10:38→20:40)
[2022-05-26] MEDS: Pregabalin 75 MG Capsule 150 MG PO ×2 (10:38→20:39)
[2022-05-26 13:20] LABS: Bedside Glucose 141 mg/dL (74-106)
--- NOTE | 2022-05-26 13:49 | CASEMGMT ---
Social Work SW met w/pt in room, pt confirms is from [facility] and she would like to return there at discharge. Pt declined a list of care home facilities at this time. Pt spoke about her injury to her toe, SW offered support. SW will continue to follow for anticipated discharge to [facility] when ready. It is anticipated pt will be here through the weekend. ZENA Keenan
[2022-05-26] MEDS: Methenamine Hippurate 1 GM Tablet 0.5 GM PO ×2 (14:36→20:34)
[2022-05-26] MEDS: Modafinil 200 MG Tablet 100 MG PO (14:37)
--- NOTE | 2022-05-26 15:11 | PCM.PN.HOSP ---
Subjective Subjective Patient was seen and examined today, she was admitted for cellulitis of her left second toe, she was seen by podiatry today and an MRI was performed which showed no evidence of osteomyelitis. Patient remains on IV antibiotics at this time will be reevaluated tomorrow, she may need a partial amputation of the left second digit with flexor tenotomy of the left third digit-this will not be able to be performed until Saturday. Objective Data Objective Data Vital Signs: Vital Signs Temp Pulse Resp BP Pulse Ox O2 Del Method O2 Flow Rate 98.0 F 71 18 107/60 96 Nasal Cannula 1 05/26/22 14:00 05/26/22 14:00 05/26/22 14:00 05/26/22 14:00 05/26/22 14:26 05/26/22 14:26 05/26/22 14:26 FiO2 30 05/26/22 02:16 Oxygen Flow Rate (L/min) 1 Oxygen Delivery Method Nasal Cannula Weight: 115.4 kg Body Mass Index (BMI) 48.0 Intake & Output: Intake and Output for Last 24 Hours 05/24/22 05/25/22 05/26/22 23:59 23:59 23:59 Intake Total 695 / 695 375.00 / 375.00 Output Total 0 / 0 Balance 695 / 695 375.00 / 375.00 Lab / Micro Data Result Diagrams: 05/26/22 05:12 05/26/22 05:12 Labs: Laboratory Results - last 24 hr 05/25/22 15:10: WBC 10.1, RBC 3.90 L, Hgb 12.4, Hct 36.1 L, MCV 92.6, MCH 31.8, MCHC 34.3 D, RDW Std Deviation 45.8 H, RDW Coeff of Melissa 13.3, Plt Count 163, MPV 9.4, Immature Gran % (Auto) 0.400, Neut % (Auto) 75.9 H, Lymph % (Auto) 12.9 L, Jones % (Auto) 8.8, Eos % (Auto) 1.5, Baso % (Auto) 0.5, Absolute Neuts (auto) 7.7, Absolute Lymphs (auto) 1.30, Nucleated RBC % 0 05/25/22 15:10: PT 14.5, INR 1.2, APTT 33.8 05/25/22 15:10: Sodium 138, Potassium 4.0, Chloride 100, Carbon Dioxide 30.0, Anion Gap 8, BUN 23 H, Creatinine 1.06 H, Estim Creat Clear Calc 35.14, Est GFR (MDRD) Af Amer 65, Est GFR (MDRD) Non-Af 54 L, BUN/Creatinine Ratio 21.7 H, Glucose 107 H, Calcium 9.2 05/25/22 22:47: POC Glucose 137 H 05/26/22 05:12: WBC 5.8, RBC 3.56 L, Hgb 11.2 L, Hct 33.4 L, MCV 93.8, MCH 31.5, MCHC 33.5, RDW Std Deviation 45.5 H, RDW Coeff of Melissa 13.4, Plt Count 149 L, MPV 9.8, Immature Gran % (Auto) 0.200, Neut % (Auto) 60.7, Lymph % (Auto) 25.1, Jones % (Auto) 9.5, Eos % (Auto) 3.6, Baso % (Auto) 0.9, Absolute Neuts (auto) 3.5, Absolute Lymphs (auto) 1.46, Nucleated RBC % 0 05/26/22 05:12: Sodium 138, Potassium 4.0, Chloride 102, Carbon Dioxide 29.0, Anion Gap 7, BUN 20 H, Creatinine 0.87, Estim Creat Clear Calc 42.81, Est GFR (MDRD) Af Amer 82, Est GFR (MDRD) Non-Af 68, BUN/Creatinine Ratio 23.1 H, Glucose 92, Calcium 8.7 05/26/22 05:48: POC Glucose 107 H 05/26/22 13:00: POC Glucose 141 H Micro: Microbiology 05/25/22 15:09 Wound - Toe Gram Stain - Final 05/25/22 15:09 Wound - Toe Wound Culture - Preliminary Gram positive organism Radiography Diagnostic Testing: Radiology Impression Foot X-Ray 05/25/22 15:23 IMPRESSION: Postsurgical changes of the distal phalanx of the great toe. Soft tissue swelling at the operative site and findings suspicious for recurrent acute osteomyelitis. This may be further assessed with MRI if clinically warranted Electronically Signed: Gianni Burnett MD at 16:46 EDT Reading Location ID and State: [facility] / [place] , Service support , Lower Extremity MRI 05/26/22 07:00 IMPRESSION: There is degenerative and postoperative change. No MRI evidence of osteomyelitis. Electronically Signed: Donal Carrera MD at 11:16 EDT , Physical Exam Const alert, oriented x3 and no apparent distress Constitutional Narrative: Patient is morbidly obese HEENT head/scalp atraumatic and moist oral mucous membranes Neck supple and no JVD Resp normal respiratory effort, no retractions, no use of accessory muscles and clear to auscultation bilaterally Cardio regular rate, regular rhythm, S1 normal heart sound, S2 normal heart sound, no murmurs and no rub GI normal to inspection, nondistended, normoactive bowel sounds, soft to palpation, non-tender and non-distended Extremity Extremity Narrative: Chronic lymphedematous changes are noted over both lower extremities, left foot was wrapped with surgical dressing and this dressings not removed for examination of the left foot. Neuro oriented x3, CN's II-XII intact bilaterally, moves all extremities and no focal motor deficits Sensorium / Orientation: awake, alert, oriented to person, oriented to place and oriented to time Psych affect normal Assessment & Plan Assessment/Plan (1) Cellulitis of left foot: PLAN: Plan 1. Cellulitis of the left second toe-patient will continue on antibiotics at this time, podiatry is participating in her care, I have decided to change her antibiotic coverage from clindamycin to meropenem #2 type 2 diabetes-blood sugars will be monitored, sliding scale insulin will be administered as needed #3 neuropathy of diabetes-complicates care, management, recovery, and prognosis #4 morbid obesity-complicates care, management, recovery, and prognosis #5 essential hypertension-patient will remain on her current medications #6 Paroxysmal A. fib-patient is on a dose of Xarelto which is not indicated for paroxysmal A. fib, I contacted the intermediate and at the time of this dictation, the intermediate physician will give me a call back concerning why the patient is on such a small dose of Xarelto. For now I will keep her on the present dose of Xarelto which is 2.5 mg daily. #7 chronic lymphedema-complicates care, management, recovery, and prognosis Charges/Coding Visit Charges Inpatient E&M: 33997 Subs Hosp L2
[2022-05-26 16:50] LABS: Bedside Glucose 131 mg/dL (74-106)
[2022-05-26] MEDS: Oxybutynin 5 MG Tablet PO (20:31)
[2022-05-26] MEDS: Pramipexole Di-HCl 0.25 MG Tablet PO (20:31)
[2022-05-26] MEDS: Atorvastatin Calcium 10 MG Tablet PO (20:39)
[2022-05-26] MEDS: Rivaroxaban 2.5 MG Tablet PO (20:41)
[2022-05-26 21:51] LABS: Bedside Glucose 152 mg/dL (74-106)
[2022-05-27] VITALS (11 sets, daily range): BP systolic 100–127; BP diastolic 53–68; PULSE 53–71; RESP 12–19; TEMP 36.6–36.7; O2SAT 92–98
[2022-05-27 07:05] LABS: Bedside Glucose 121 mg/dL (74-106)
[2022-05-27 07:18] LABS: Vancomycin, Trough Level 18.8 ug/mL (5.0-15.0)
[2022-05-27] MEDS: Budesonide Respules 0.5 MG/2 ML AMPUL.NEB. INHALATION ×2 (07:22→20:00)
--- NOTE | 2022-05-27 07:43 | PCM.RX.CS ---
Consult Type of Consult: Follow-up Suspected Infection: Osteomyelitis Labs: Sodium 138 mmol/L (136-145) 05/26/22 05:12 Potassium 4.0 mmol/L (3.5-5.1) 05/26/22 05:12 Chloride 102 mmol/L (98-107) 05/26/22 05:12 Carbon Dioxide 29.0 mmol/L (21.0-32.0) 05/26/22 05:12 Anion Gap 7 (5-15) 05/26/22 05:12 BUN 20 mg/dL (7-18) H 05/26/22 05:12 Creatinine 0.87 mg/dL (0.55-1.02) 05/26/22 05:12 Est GFR (MDRD) Af Amer 82 mL/min (>60) 05/26/22 05:12 Est GFR (MDRD) Non-Af 68 mL/min (>60) 05/26/22 05:12 BUN/Creatinine Ratio 23.1 RATIO (10-20) H 05/26/22 05:12 Glucose 92 mg/dL (74-106) 05/26/22 05:12 Vancomycin Trough 18.8 ug/mL (5.0-15.0) H 05/27/22 06:33 Microbiology: Microbiology 05/25/22 15:09 Wound - Toe Gram Stain - Final 05/25/22 15:09 Wound - Toe Wound Culture - Preliminary Gram positive organism Weight used for dosin.8 kg Estimated Creatinine Clearance: 67 mL/min Goal Trough: 15-20 mcg/mL Pharmacy Plan for Drug Dosing: VANCOMYCIN LEVEL RECEIVED Current Vancomycin Dose: 1250mg Q12H Number of Doses Received: 1750mg x1, 1250mg x2 Vancomycin Level: 18.8 Hours Since Last Dose: 12.25 Renal Function: sCr 0.87 (05/26/22), CrCl 67 ml/min based on AdjBW 74.8kg Renal Function Trend: stable, however no chemistry labs drawn today Lab/Micro: wound cx growing gram positive organism, blood x2 pending Vancomycin Plan/Comments: No change, continue 1250mg Q12H Pending Level: Vancomycin trough @ 0630 05/29/22 Pharmacy Service will continue to monitor and adjust dosing as required. Labs to be done on [date and time ordered]: Vancomycin trough @ 0630 05/29/22
[2022-05-27] MEDS: Ferrous Sulfate 325 MG Tablet PO ×2 (10:37→17:46)
[2022-05-27] MEDS: Menthol/Lanolin/Calamine/Znox 113 GM Tube 1 APPLIC TOPICAL ×2 (10:38→21:24)
[2022-05-27] MEDS: Spironolactone 50 MG Tablet PO (10:38)
[2022-05-27] MEDS: dilTIAZem CD 180 MG Capsule 360 MG PO (10:39)
[2022-05-27] MEDS: Tolterodine Tartrate 4 MG CAP.SA PO (10:39)
[2022-05-27] MEDS: Venlafaxine XR 75 MG Capsule PO (10:39)
[2022-05-27] MEDS: Pantoprazole Sodium 40 MG Tablet PO (10:39)
[2022-05-27] MEDS: Potassium Chloride Oral Tablet 20 MEQ PO ×2 (10:40→21:24)
[2022-05-27] MEDS: Methenamine Hippurate 1 GM Tablet 0.5 GM PO ×2 (10:40→21:24)
[2022-05-27] MEDS: Furosemide 40 MG Tablet PO (10:41)
[2022-05-27] MEDS: Nystatin Powder 15gm Bottle 1 APPLIC TOPICAL ×2 (10:43→21:25)
[2022-05-27] MEDS: morphine SR 15 MG Tablet 30 MG PO ×2 (10:57→21:25)
[2022-05-27] MEDS: Pregabalin 75 MG Capsule 150 MG PO ×2 (10:57→21:25)
[2022-05-27] MEDS: Insulin Glargine-YFGN 100 UNIT/ML Pen 8 UNIT SC (10:58)
[2022-05-27] MEDS: Modafinil 200 MG Tablet 100 MG PO (10:58)
--- NOTE | 2022-05-27 11:30 | PCM.PROGNOTE ---
Subjective Subjective 72-year-old female seen for follow-up on left second digit ulcer and cellulitis. Patient notes improvement in her redness and swelling today. Patient denies constitutional symptoms patient had no complaints overnight no issues at this time. Objective Data Objective Data Vital Signs: Vital Signs Temp Pulse Resp BP Pulse Ox O2 Del Method O2 Flow Rate 98 F 60 18 109/60 92 Room Air 1 05/27/22 08:30 05/27/22 08:30 05/27/22 08:30 05/27/22 08:30 05/27/22 09:23 05/27/22 09:23 05/26/22 20:00 FiO2 30 05/27/22 07:22 Oxygen Flow Rate (L/min) 1 Oxygen Delivery Method Room Air Weight: 115.4 kg Body Mass Index (BMI) 48.0 Intake & Output: Intake and Output for Last 24 Hours 05/25/22 05/26/22 05/27/22 23:59 23:59 23:59 Intake Total 695 / 695 820.00 / 970.00 685 / 685 Output Total 0 / 0 800 / 800 Balance 695 / 695 820.00 / 970.00 -115 / -115 Lab / Micro Data Result Diagrams: 05/26/22 05:12 05/26/22 05:12 Labs: Laboratory Results - last 24 hr 05/26/22 13:00: POC Glucose 141 H 05/26/22 16:20: POC Glucose 131 H 05/26/22 20:28: POC Glucose 152 H 05/27/22 06:33: Vancomycin Trough 18.8 H 05/27/22 06:46: POC Glucose 121 H Micro: Microbiology 05/25/22 15:09 Wound - Toe Gram Stain - Final 05/25/22 15:09 Wound - Toe Wound Culture - Preliminary Staphylococcus aureus Staphylococcus species GPC Poss Enterococcus sp Physical Exam Narrative Neurovascular status unchanged from previous evaluation. Full-thickness wound noted to the distal tuft of the left second digit at the apex of a hammertoe contracture. Similar issue to the left third digit on the distal tuft. Resolving erythema edema and warmth to the left second and third digit. Full-thickness wound was excisionally debrided. Debridement measurement was 0.4 x 0.4 x 0.2 cm postdebridement the wound was 0.5 x 0.5 x 0.3 cm Musculoskeletal rigid hammertoe contractures left second and third digits which are contributing to wound formation. Assessment & Plan Assessment/Plan (1) Type 2 diabetes mellitus with diabetic polyneuropathy: PLAN: Exam performed Infection appears to be resolving and limited to soft tissue. MRI negative for osteomyelitis. No plan for surgical management at this time. Wound cultures demonstrate staph aureus additional Staphylococcus species and possible Enterococcus. Awaiting final cultures and cultures and sensitivity. Patient can likely DC on p.o. antibiotics pending final C&S. Patient will return to her nursing facility where they should perform daily dressing changes consisting of Betadine paint to the distal second and third digital yesi 4 x 4's Kerlix and a light Yong bandage. Patient should remain heel weightbearing in a surgical shoe assisted by a walker to help offload the wound. Today her wound was excisionally debrided after obtaining oral consent. The wound was excisionally debrided down to and including the level of subcutaneous tissue of all nonviable tissue using a #11 blade bedside sterilely. Patient tolerated procedure well. Hemostasis obtained with light compression. No anesthesia due to neuropathy. Predebridement wound was 0.4 x 0.4 x 0.2 cm postdebridement the wound was 0.5 x 0.5 x 0.3 cm. Redressed the wound today using Betadine paint 4 x 4's Kerlix and Yong bandage. We will continue to observe daily to ensure infection resolution. Discussed future treatments to prevent recurrence including but not limited to observation, diabetic shoe gear, digital correction via flexor tendon tenotomy or digital arthroplasty, definitive digital amputation. At this time we will consider to continue local wound care and observe for infection resolution as mentioned previously patient is stable from discharge pending final culture and sensitivity. (2) Non-pressure chronic ulcer of other part of left foot with fat layer exposed: (3) Cellulitis of left foot: (4) Hammertoe of left foot:
--- NOTE | 2022-05-27 12:20 | PCM.PN.HOSP ---
Subjective Subjective Patient was seen and examined today, she was seen by podiatry and her foot wound was not inspected, it was not thought that the patient would require surgery. I changed the patient's main antibiotic yesterday to meropenem, she also remains on vancomycin at this time. Culture is growing out staph aureus and possible Enterococcus, this may be problematic because the patient is allergic to penicillin. Patient may have to be discharged on Zyvox if she indeed has enterococcal skin infection. Objective Data Objective Data Vital Signs: Vital Signs Temp Pulse Resp BP Pulse Ox O2 Del Method O2 Flow Rate 98 F 60 18 109/60 92 Room Air 1 05/27/22 08:30 05/27/22 08:30 05/27/22 08:30 05/27/22 08:30 05/27/22 09:23 05/27/22 09:23 05/26/22 20:00 FiO2 30 05/27/22 07:22 Oxygen Flow Rate (L/min) 1 Oxygen Delivery Method Room Air Weight: 115.4 kg Body Mass Index (BMI) 48.0 Intake & Output: Intake and Output for Last 24 Hours 05/25/22 05/26/22 05/27/22 23:59 23:59 23:59 Intake Total 695 / 695 820.00 / 970.00 685 / 685 Output Total 0 / 0 800 / 800 Balance 695 / 695 820.00 / 970.00 -115 / -115 Lab / Micro Data Result Diagrams: 05/26/22 05:12 05/26/22 05:12 Labs: Laboratory Results - last 24 hr 05/26/22 13:00: POC Glucose 141 H 05/26/22 16:20: POC Glucose 131 H 05/26/22 20:28: POC Glucose 152 H 05/27/22 06:33: Vancomycin Trough 18.8 H 05/27/22 06:46: POC Glucose 121 H Micro: Microbiology 05/25/22 15:09 Wound - Toe Gram Stain - Final 05/25/22 15:09 Wound - Toe Wound Culture - Preliminary Staphylococcus aureus Staphylococcus species GPC Poss Enterococcus sp Physical Exam Narrative alert, oriented x3 and no apparent distress Constitutional Narrative: Patient is morbidly obese HEENT head/scalp atraumatic and moist oral mucous membranes Neck supple and no JVD Resp normal respiratory effort, no retractions, no use of accessory muscles and clear to auscultation bilaterally Cardio regular rate, regular rhythm, S1 normal heart sound, S2 normal heart sound, no murmurs and no rub GI normal to inspection, nondistended, normoactive bowel sounds, soft to palpation, non-tender and non-distended Extremity Extremity Narrative: Chronic lymphedematous changes are noted over both lower extremities, left foot was wrapped with surgical dressing and this dressings not removed for examination of the left foot. Neuro oriented x3, CN's II-XII intact bilaterally, moves all extremities and no focal motor deficits Sensorium / Orientation: awake, alert, oriented to person, oriented to place and oriented to time Psych affect normal Assessment & Plan Assessment/Plan (1) Cellulitis of left foot: PLAN: Plan 1. Cellulitis of the left second toe-patient will continue on antibiotics at this time, podiatry is participating in her care, again, if patient does have Enterococcus in her final culture result, she will need Zyvox for oral treatment-patient is allergic to penicillin which causes hives. Patient is not going to have any surgical intervention. #2 type 2 diabetes-blood sugars will be monitored, sliding scale insulin will be administered as needed #3 neuropathy of diabetes-complicates care, management, recovery, and prognosis #4 morbid obesity-complicates care, management, recovery, and prognosis #5 essential hypertension-patient will remain on her current medications #6 Paroxysmal A. fib-patient is on a dose of Xarelto which is not indicated for paroxysmal A. fib, patient's Xarelto dosage will be increased now that she is not going to have surgery, I will increase it to 15 mg daily. #7 chronic lymphedema-complicates care, management, recovery, and prognosis Charges/Coding Visit Charges Inpatient E&M: 23700 Subs Hosp L2
[2022-05-27 12:50] LABS: Bedside Glucose 144 mg/dL (74-106)
[2022-05-27] MEDS: Insulin Lispro 100 UNIT/ML INSULN.PEN SC ×2 (17:46→21:30)
[2022-05-27] MEDS: Rivaroxaban 15 MG Tablet PO (17:49)
[2022-05-27 20:31] LABS: Bedside Glucose 166 mg/dL (74-106)
[2022-05-27] MEDS: Oxybutynin 5 MG Tablet PO (21:24)
[2022-05-27] MEDS: Pramipexole Di-HCl 0.25 MG Tablet PO (21:25)
[2022-05-27] MEDS: Atorvastatin Calcium 10 MG Tablet PO (21:25)
[2022-05-27 22:26] LABS: Bedside Glucose 170 mg/dL (74-106)
[2022-05-28] VITALS (10 sets, daily range): BP systolic 102–124; BP diastolic 50–88; PULSE 54–68; RESP 12–20; TEMP 36.3–36.7; O2SAT 91–100
[2022-05-28] MEDS: Budesonide Respules 0.5 MG/2 ML AMPUL.NEB. INHALATION (07:00)
[2022-05-28 07:10] LABS: Bedside Glucose 86 mg/dL (74-106)
--- NOTE | 2022-05-28 07:37 | PCM.PROGNOTE ---
Subjective Subjective 72-year-old female seen for follow-up on left second digit ulcer and cellulitis. Patient notes improvement in her redness and swelling today. Patient denies constitutional symptoms patient had no complaints overnight no issues at this time. Objective Data Objective Data Vital Signs: Vital Signs Temp Pulse Resp BP Pulse Ox O2 Del Method O2 Flow Rate 98.0 F 58 L 18 124/54 H 97 Bi-pap 1 05/28/22 02:56 05/28/22 07:00 05/28/22 07:00 05/28/22 02:56 05/28/22 07:00 05/28/22 02:56 05/26/22 20:00 FiO2 30 05/28/22 07:00 Oxygen Flow Rate (L/min) 1 Oxygen Delivery Method Bi-pap Weight: 115.4 kg Body Mass Index (BMI) 48.0 Intake & Output: Intake and Output for Last 24 Hours 05/26/22 05/27/22 05/28/22 23:59 23:59 23:59 Intake Total 820.00 / 970.00 1960 / 2210 460 / 460 Output Total 0 / 0 800 / 800 Balance 820.00 / 970.00 1160 / 1410 460 / 460 Lab / Micro Data Result Diagrams: 05/26/22 05:12 05/26/22 05:12 Labs: Laboratory Results - last 24 hr 05/27/22 12:28: POC Glucose 144 H 05/27/22 17:43: POC Glucose 166 H 05/27/22 21:28: POC Glucose 170 H 05/28/22 06:50: POC Glucose 86 Micro: Microbiology 05/25/22 15:09 Wound - Toe Gram Stain - Final 05/25/22 15:09 Wound - Toe Wound Culture - Preliminary Staphylococcus aureus Staphylococcus species GPC Poss Enterococcus sp Physical Exam Narrative Neurovascular status unchanged from previous evaluation. Full-thickness wound noted to the distal tuft of the left second digit at the apex of a hammertoe contracture. Similar issue to the left third digit on the distal tuft. Resolving erythema edema and warmth to the left second and third digit. Full-thickness wound was excisionally debrided. Debridement measurement was 0.4 x 0.4 x 0.2 cm postdebridement the wound was 0.5 x 0.5 x 0.3 cm Musculoskeletal rigid hammertoe contractures left second and third digits which are contributing to wound formation. Assessment & Plan Assessment/Plan (1) Type 2 diabetes mellitus with diabetic polyneuropathy: PLAN: Exam performed Cellulitis significantly improved. Wound improving. Wound growing staph aureus, additional Staphylococcus species, Enterococcus. Culture and sensitivity pending. Patient stable for discharge from podiatry standpoint on p.o. antibiotics per [employer] once finalized. Change dressing applied Betadine paint DSD and Yong bandage for compression. Patient will have this dressing performed daily at her alf facility consisting of Betadine paint applied directly to the distal yesi and interdigital spaces of the second and third digits on the left side along with 4 x 4's Kerlix and an Yong bandage. Patient will maintain a heel weightbearing status in her surgical shoe assisted by a walker. Patient will follow up in the wound care center in 1 week for additional care. We will consider hammertoe repair in the future for prevention of future distal clavi wounds. (2) Non-pressure chronic ulcer of other part of left foot with fat layer exposed: (3) Cellulitis of left foot: (4) Hammertoe of left foot:
[2022-05-28 08:09] LABS: Vancomycin, Trough Level 23.9 ug/mL (5.0-15.0)
--- NOTE | 2022-05-28 08:13 | WOUNDNOTE ---
wound photo: left 2nd toe
[2022-05-28 08:46] LABS: Absolute Lymphocyte Count 1.25 X10^3/uL (0.83-4.51); Absolute Neutrophil Count 3.5 X10^3/uL (2.0-7.7); Basophil# 0.04 X10^3/uL; Basophil% 0.7 % (0-1); Eosinophils% 3.6 % (0-5); Hemoglobin 12.2 g/dL (12.0-15.0); Lymphocyte # 1.25 X10^3/ul (0.83-4.51); Lymphocyte % 22.8 % (19-41); Mean Corp Hgb Conc 33.9 g/dL (32-36); Mean Corpuscular Hgb 31.5 pg (27.0-32.0); Mean Platelet Vol. 9.6 fl (6.2-12.0); Monocyte# 0.45 X10^3/uL; Monocyte% 8.2 % (0-10); NRBC Flagged by Analyzer 0 % (0-5); Neutrophil # 3.54 X10^3/uL (2.7-7.7); Neutrophil % 64.5 % (47-70); Platelet Count 152 K/mm3 (150-450); RBC Distribution Width CV 13.1 % (11.6-14.6); RBC Distribution Width SD 44.1 fl (35.1-43.9); Red Blood Count 3.87 M/mm3 (4.2-5.4); White Blood Count 5.5 K/mm3 (4.4-11.0)
[2022-05-28 09:08] LABS: Anion Gap 9 (5-15); BUN 22 mg/dL (7-18); BUN/Creat Ratio 29.8 RATIO (10-20); Calcium,Total 9.1 mg/dL (8.5-10.1); Chloride 104 mmol/L (98-107); Creatinine, Serum 0.74 mg/dL (0.55-1.02); EST Glomerular Filtration Rate 82 mL/min (>60); Est Glom Filt Rate - Afr Amer 99 mL/min (>60); Estimated Creatinine Clearance 37.24 ml/min; Glucose 94 mg/dL (74-106); Sodium Level 141 mmol/L (136-145)
[2022-05-28] MEDS: dilTIAZem CD 180 MG Capsule 360 MG PO (09:40)
[2022-05-28] MEDS: Spironolactone 50 MG Tablet PO (09:40)
[2022-05-28] MEDS: Ferrous Sulfate 325 MG Tablet PO ×2 (09:40→16:33)
[2022-05-28] MEDS: Menthol/Lanolin/Calamine/Znox 113 GM Tube 1 APPLIC TOPICAL (09:40)
[2022-05-28] MEDS: Tolterodine Tartrate 4 MG CAP.SA PO (09:41)
[2022-05-28] MEDS: Venlafaxine XR 75 MG Capsule PO (09:42)
[2022-05-28] MEDS: Methenamine Hippurate 1 GM Tablet 0.5 GM PO (09:42)
[2022-05-28] MEDS: Insulin Glargine-YFGN 100 UNIT/ML Pen 8 UNIT SC (09:42)
[2022-05-28] MEDS: Pantoprazole Sodium 40 MG Tablet PO (09:43)
[2022-05-28] MEDS: Furosemide 40 MG Tablet PO (09:43)
[2022-05-28] MEDS: Nystatin Powder 15gm Bottle 1 APPLIC TOPICAL (09:43)
[2022-05-28] MEDS: Potassium Chloride Oral Tablet 20 MEQ PO (09:43)
--- NOTE | 2022-05-28 09:49 | PCM.PN.HOSP ---
Subjective Subjective DOS: 05/28/2022 CC: Neuropathy Reports she is unsure how her left foot is feeling because she has neuropathy and has a hard time feeling in general. Overall does report tolerating p.o. well, has not had a bowel movement but reports its been she is uncomfortable with somebody near her. Urinating well. Enjoys the food. Denies other complaints this morning Objective Data Objective Data Vital Signs: Vital Signs Temp Pulse Resp BP Pulse Ox O2 Del Method O2 Flow Rate 97.3 F L 66 18 104/50 L 94 Room Air 1 05/28/22 08:25 05/28/22 08:25 05/28/22 08:25 05/28/22 08:25 05/28/22 08:25 05/28/22 08:25 05/28/22 08:00 FiO2 30 05/28/22 08:00 Oxygen Flow Rate (L/min) 1 Oxygen Delivery Method Room Air Weight: 115.4 kg Body Mass Index (BMI) 48.0 Intake & Output: Intake and Output for Last 24 Hours 05/26/22 05/27/22 05/28/22 23:59 23:59 23:59 Intake Total 820.00 / 970.00 1960 / 2210 735 / 735 Output Total 0 / 0 800 / 800 Balance 820.00 / 970.00 1160 / 1410 735 / 735 Lab / Micro Data Result Diagrams: 05/28/22 08:30 05/28/22 08:30 Labs: Laboratory Results - last 24 hr 05/27/22 12:28: POC Glucose 144 H 05/27/22 17:43: POC Glucose 166 H 05/27/22 21:28: POC Glucose 170 H 05/28/22 06:50: POC Glucose 86 05/28/22 07:19: Vancomycin Trough 23.9 H 05/28/22 08:30: WBC 5.5, RBC 3.87 L, Hgb 12.2, Hct 36.0 L, MCV 93.0, MCH 31.5, MCHC 33.9, RDW Std Deviation 44.1 H, RDW Coeff of Melissa 13.1, Plt Count 152, MPV 9.6, Immature Gran % (Auto) 0.200, Neut % (Auto) 64.5, Lymph % (Auto) 22.8, [place] % (Auto) 8.2, Eos % (Auto) 3.6, Baso % (Auto) 0.7, Absolute Neuts (auto) 3.5, Absolute Lymphs (auto) 1.25, Nucleated RBC % 0 05/28/22 08:30: Sodium 141, Potassium 4.0, Chloride 104, Carbon Dioxide 28.0, Anion Gap 9, BUN 22 H, Creatinine 0.74, Estim Creat Clear Calc 37.24, Est GFR (MDRD) Af Amer 99, Est GFR (MDRD) Non-Af 82, BUN/Creatinine Ratio 29.8 H, Glucose 94, Calcium 9.1 Micro: Microbiology 05/25/22 15:09 Wound - Toe Gram Stain - Final 05/25/22 15:09 Wound - Toe Wound Culture - Final Meth. resistant Staph. aureus Enterococcus faecalis Physical Exam Const alert and no apparent distress Constitutional Narrative: Oriented HEENT normocephalic and head/scalp atraumatic Eyes Eyes Narrative: EOM grossly intact, anicteric Neck supple Resp normal respiratory effort and clear to auscultation bilaterally Cardio regular rate and regular rhythm GI soft to palpation, non-tender and non-distended Extremity Extremity Narrative: No pitting edema appreciated Skin Skin Narrative: Chronic bilateral lower extremities, left foot wrapped Neuro moves all extremities Neuro Narrative: No overt focal deficits appreciated Psych Psych Narrative: Cooperative Assessment & Plan Assessment/Plan (1) Cellulitis of left foot: (2) Type 2 diabetes mellitus with diabetic polyneuropathy: PLAN: Plan 1. Left foot diabetic ulcer and cellulitis of left second toe/type 2 diabetes with neuropathy Podiatry had been following, cellulitis and wound improving Wound culture with staph aureus and enteric coccus as well as additional staph species Final culture and sensitivities pending, stable for discharge from podiatry standpoint on p.o. antibiotics once final cultures resulted Due to penicillin allergy may need oral Zyvox, follow-up cultures #2. Type 2 diabetes mellitus Continue long-acting insulin and sliding scale insulin #3 neuropathy of diabetes-complicates care, management, recovery, and prognosis #4 morbid obesity-complicates care, management, recovery, and prognosis #5 essential hypertension-patient will remain on her current medications #6? Paroxysmal A. fib-patient is on a dose of Xarelto which is not indicated for paroxysmal A. fib, patient's Xarelto dosage will be increased now that she is not going to have surgery, I will increase it to 15 mg daily. #7 chronic lymphedema-complicates care, management, recovery, and prognosis DVT ppx: On xeralto Georgina Plascencia MD Charges/Coding Visit Charges Inpatient E&M: 12264 Subs Hosp L2
[2022-05-28] MEDS: Modafinil 200 MG Tablet 100 MG PO (09:50)
[2022-05-28] MEDS: morphine SR 15 MG Tablet 30 MG PO (09:50)
[2022-05-28] MEDS: Pregabalin 75 MG Capsule 150 MG PO (09:50)
[2022-05-28] MEDS: Insulin Lispro 100 UNIT/ML INSULN.PEN SC (11:10)
[2022-05-28 11:40] LABS: Bedside Glucose 174 mg/dL (74-106)
--- NOTE | 2022-05-28 13:33 | PCM.RX.CS ---
Consult Pharmacy has been consulted to manage selected antiobiotic: Vancomycin Type of Consult: Follow-up Suspected Infection: Osteomyelitis Labs: Sodium 141 mmol/L (136-145) 05/28/22 08:30 Potassium 4.0 mmol/L (3.5-5.1) 05/28/22 08:30 Chloride 104 mmol/L (98-107) 05/28/22 08:30 Carbon Dioxide 28.0 mmol/L (21.0-32.0) 05/28/22 08:30 Anion Gap 9 (5-15) 05/28/22 08:30 BUN 22 mg/dL (7-18) H 05/28/22 08:30 Creatinine 0.74 mg/dL (0.55-1.02) 05/28/22 08:30 Est GFR (MDRD) Af Amer 99 mL/min (>60) 05/28/22 08:30 Est GFR (MDRD) Non-Af 82 mL/min (>60) 05/28/22 08:30 BUN/Creatinine Ratio 29.8 RATIO (10-20) H 05/28/22 08:30 Glucose 94 mg/dL (74-106) 05/28/22 08:30 Vancomycin Trough 23.9 ug/mL (5.0-15.0) H 05/28/22 07:19 Microbiology: Microbiology 05/25/22 15:09 Wound - Toe Gram Stain - Final 05/25/22 15:09 Wound - Toe Wound Culture - Final Meth. resistant Staph. aureus Enterococcus faecalis Goal Trough: 15-20 mcg/mL Pharmacy Plan for Drug Dosing: VANCOMYCIN LEVEL RECEIVED Current Vancomycin Dose: 1250MG Q12H (,) Number of Doses Received: Vancomycin Level: 23.9 Hours Since Last Dose: 12.5 Renal Function: SrCr 0.74 Renal Function Trend: SrCr improving (was 0.87 on 05/27/22) Lab/Micro: Vancomycin Plan/Comments: recommend holding 05/28/22 1900 dose due to elevated trough. check random level 05/29/22 at 0600 Pending Level: 05/29/22 at 0600 Pharmacy Service will continue to monitor and adjust dosing as required. Follow-Up Labs: Trough Vancomycin - 05/29/22 at 0600 (random level)
[2022-05-28] MEDS: 0.9% Saline Lock 10 ML Syringe IV (13:40)
--- NOTE | 2022-05-28 13:53 | CASEMGMT ---
Social Work SW spoke to Sebastien Jolley at [facility]. Sebastien stated pt does not need to wait for precert to retun to [facility]. The SNF requested updated clinicals and will start precert now. Pt can return when medically ready. If precert is not obtained pt will remain intermediate resident. SHARATH Kahn
--- NOTE | 2022-05-28 14:18 | CASEMGMT ---
Discharge [employer] This com writer sent updates to [facility]. Katarzyna SILVEIRA [employer]
--- NOTE | 2022-05-28 15:44 | PCM.TXEXTCAR ---
Diet Diet Order/Speech Therapy: 05/25/22 19:23 Diet: Consistent Carb - Calorie Controlled Food consistency:: Regular Liquid Consistency:: Regular/Thin Dietary Modifications:: Cardiac / Heart Healthy Is pt able to select menu?: Yes How many daily calories?: 1600 calorie Routine Orders/Code Status Suppository Type: Dulcolax 10mg Suppository Frequency: Daily PRN O2 Frequency: PRN Keep PO Greater than or Equal to (%): 92 Routine Lab Work: CBC (Weekly while on zyvox, will need in 7 days from date of discharge) Wound(s) L SECOND TOE: Wound Type: Neuropathic/Diabetic Foot Ulcer Dressing Change: betadine with dry dressing chin: Wound Type: Skin Tear Therapies Weight Bearing: Partial weight bearing Physical Therapy: Eval and Treat Occupational Therapy: Eval and Treat Problem/Diagnosis (1) Cellulitis of left foot: Status: Acute Code(s): L03.116 - Cellulitis of left lower limb (2) Type 2 diabetes mellitus with diabetic polyneuropathy: Status: Acute Code(s): E11.42 - Type 2 diabetes mellitus with diabetic polyneuropathy Plan 1. Left foot diabetic ulcer and cellulitis of left second toe/type 2 diabetes with neuropathy #2. Type 2 diabetes mellitus #3 neuropathy of diabetes #4 morbid obesity #5 essential hypertension-patient will remain on her current medications #6? Paroxysmal A. fib-patient #7 chronic lymphedema Ms. Bal is a 72-year-old female with a history of type 2 diabetes mellitus, COPD, history of DVT on Xarelto, RILEY, paroxysmal A. fib, and RLS who presented to [facility] 05/25/2022 with an infected left second toe. Had hurt it 3 to 4 weeks prior to admission and it was becoming much worse. There was concern for osteo so she was admitted and podiatry consulted and she was started on antibiotics. MRI ruled out osteomyelitis, she was on Vanco and meropenem, culture grew several organisms that were all sensitive to linezolid. There was thought of possible surgery while admitted but given her improvement she will be discharged on linezolid for total of 14 days, but will need to follow-up with the wound care clinic in 1 week. Will need a weekly CBC while on linezolid, likely will only need 1 more than 7 days unless antibiotics need prolonged based on clinical results. Of note while she was admitted her reported dose of Xarelto was 2.5 mg but given her history of A. fib this had been increased to therapeutic dose of 15 mg. She was discharged to SNF in stable condition. Allergies/Procedures Done in Hospital Allergies aspirin Allergy (Verified 05/25/22 14:13) Hives latex Allergy (Verified 05/25/22 14:13) Rash Penicillins Allergy (Verified 05/25/22 14:13) Hives Sulfa (Sulfonamide Antibiotics) Allergy (Verified 05/25/22 14:13) Hives Type of Care/Length of Stay Estimated LOS: More Than 30 Days Type of Care Needed: Skilled Rehab Potential: Fair Prognosis: Fair Additional Orders/Day of Discharge Day of Discharge: 05/28/22 Dietary and Speech Recommendations Dietitian Recommendations/Changes: Will change diet to 1600 joshua Cardiac Will order Malvin bid at [facility] to help w/ skin healing Discharge Plan Admission Admit Date/Time: 05/25/22 17:48 Primary Reason for Your Visit: Infected left toe Attending Provider: Georgina Plascencia Primary Care Provider: Efren Argueta Consulting Providers: Malachi Elaine ; Hernandez Douglas ; Nery Cisse ; Saqib Cardoso Instructions Patient Instructions: Can You Control Diabetes ... Additional Instructions / Restrictions: ? Due to your infection you will be discharged on linezolid through June 07, 2022 for a total of 14 days of antibiotics. ? You will need a CBC (blood work) weekly while on Zyvox ?Due to your paroxysmal atrial fibrillation your Xarelto was increased to therapeutic dose of 15 mg daily Will be important for daily dressing changes consisting of Betadine paint applied directly to the distal yesi and interdigital spaces of the second and third digits on the left side along with 4 x 4 Kerlix and Yogn bandage ?Maintain a heel weightbearing status in her surgical shoe assisted by walker ? Will be important to follow-up in the wound care center in 1 week for additional care ? Continue pain management per your prescribing physician ?You have been on 8 units of long-acting insulin while admitted you have done well on this, continue this with your insulin regimen at this time -Please call your primary care provider's office upon discharge to schedule a hospital follow up within 1 week. -For any concerning signs or symptoms please call 911 or proceed to the nearest emergency department ? Please continue to follow with podiatry Discharge Orders/Prescriptions Prescriptions: New Xarelto 15 mg Tablet 15 mg PO DINNER 30 Days Qty: 0 0RF linezolid 600 mg tablet 600 mg PO Q12H 11 Days Qty: 22 0RF modafinil 200 mg Tablet 100 mg PO DAILY 3 Days Qty: 2 0RF Continued fluticasone propionate 1 SPRAY spray,suspension 1 spray NASAL QHS furosemide 80 MG tablet 40 mg PO DAILY atorvastatin [Lipitor] 10 mg Tablet 10 mg PO QHS diltiazem HCl 360 mg Capsule,Extended Release 24 Hr 360 mg PO DAILY ferrous sulfate [iron] 325 mg (65 mg iron) Tablet 325 mg PO BID omeprazole 40 mg Capsule,Delayed Release(Dr/Ec) 40 mg PO DAILY spironolactone 50 mg Tablet 50 mg PO DAILY multivitamin Tablet 1 tab PO DAILY acetaminophen 325 mg Tablet 650 mg PO Q4H PRN (Reason: Pain) bisacodyl 10 mg Suppository 10 mg NV DAILY PRN (Reason: Constipation) budesonide 0.5 mg/2 mL Suspension For Nebulization 0.5 mg INHALATION BID oxybutynin chloride 5 mg Tablet 5 mg PO QHS methenamine hippurate 1 gram tablet 0.5 g PO BID venlafaxine 75 mg capsule,extended release 24hr 75 mg PO DAILY oxybutynin chloride 15 mg tablet extended release 24hr 15 mg PO DAILY potassium chloride 20 mEq tablet,ER particles/crystals 20 meq PO BID pramipexole [Mirapex] 0.25 mg Tablet 0.25 mg PO QHS metformin 500 mg Tablet Extended Release 24 Hr 1,500 mg PO DAILY insulin glargine [Basaglar KwikPen U-100 Insulin] 100 unit/mL (3 mL) insulin pen 8 unit SUBCUT DAILY Lactobacillus acidophilus 1 tab PO/SL DAILY morphine 30 mg tablet extended release 30 mg PO BID 3 Days Qty: 6 0RF modafinil 100 mg Tablet 100 mg PO DAILY Qty: 3 0RF Changed oxycodone-acetaminophen 5-325 mg tablet 1 tab PO Q12H PRN (Reason: Pain) 3 Days Qty: 6 0RF pregabalin 150 mg capsule 150 mg PO BID 3 Days Qty: 6 0RF Discontinued rivaroxaban 2.5 mg Tablet 2.5 mg PO QHS Hold Instructions: Resume on 09/18/22. insulin lispro [Humalog KwikPen Insulin] 100 unit/mL Insulin Pen 8 unit SUBCUT DAILY Rx Instructions: INJECT 8 UNITS SUBCUTANEOUSLY IN THE AFTERNOON Referrals / Follow Up: Wound Care, Center [Other] - In 1 Week Efren Argueta DO [Primary Care Provider] - Malachi Elaine DPM [Med Staff - Active Staff] - Disposition Disposition (needs filled in before D/C Order can be placed): [facility]
--- NOTE | 2022-05-28 16:21 | DS.PCM_ITS ---
Providers Date of Admission: 05/25/22 Date of Discharge: 05/28/22 Primary Care Physician: Dr. Efren Argueta, DO Consultations 05/25/22 19:23 Consult: Onc/Wound/supervisor particleboard Routine Comment: Consult: Podiatry Routine Consulting Provider: Malachi Elaine Reason for Consult: Left foot osteo EMERGENT Consult: No MD Notified: Yes Date Notified: 05/25/22 Time Notified: 17:55 Method of Notification: ED Physician Initiated Reason For Visit: DIABETIC WOUND WITH OSTEO Diagnosis Discharge Diagnosis (1) Cellulitis of left foot: Status: Acute Code(s): L03.116 - Cellulitis of left lower limb (2) Type 2 diabetes mellitus with diabetic polyneuropathy: Status: Acute Code(s): E11.42 - Type 2 diabetes mellitus with diabetic polyneuropathy Plan 1. Left foot diabetic ulcer and cellulitis of left second toe/type 2 diabetes with neuropathy #2. Type 2 diabetes mellitus #3 neuropathy of diabetes #4 morbid obesity #5 essential hypertension-patient will remain on her current medications #6? Paroxysmal A. fib-patient #7 chronic lymphedema Medications at Discharge Home Medications fluticasone propionate 50 mcg/actuation nasal spray,suspension 1 spray QHS allergies 02/16/14 furosemide 80 mg tablet 40 mg PO DAILY EDEMA 05/07/19 acetaminophen 325 mg tablet 650 mg PO Q4H PRN Pain 09/09/21 atorvastatin 10 mg tablet (Lipitor) 10 mg PO QHS cholesterol 09/09/21 bisacodyl 10 mg rectal suppository 10 mg ND DAILY PRN Constipation 09/09/21 budesonide 0.5 mg/2 mL suspension for nebulization 0.5 mg inhalation BID sob 09/09/21 diltiazem HCl 360 mg capsule,24 hr,extended release 360 mg PO DAILY 09/09/21 ferrous sulfate 325 mg (65 mg iron) tablet (iron) 325 mg PO BID supplement 09/09/21 multivitamin 1 tab PO DAILY supplement 09/09/21 omeprazole 40 mg capsule,delayed release 40 mg PO DAILY gerd 09/09/21 oxybutynin chloride 5 mg tablet 5 mg PO QHS bladder spasms 09/09/21 spironolactone 50 mg tablet 50 mg PO DAILY 09/09/21 methenamine hippurate 1 gram tablet 0.5 g PO BID 12/18/21 Lactobacillus acidophilus 1 tab PO/SL DAILY 05/25/22 insulin glargine 100 unit/mL (3 mL) subcutaneous pen (Basaglar KwikPen U-100 Insulin) 8 unit subcut DAILY diabetes 05/25/22 metformin 500 mg tablet,extended release 24 hr 1,500 mg PO DAILY DIABETES 05/25/22 oxybutynin chloride 15 mg tablet,extended release 24 hr 15 mg PO DAILY BLADDER SPASMS 05/25/22 potassium chloride 20 mEq tablet,extended release(part/cryst) 20 meq PO BID SUPPLEMENT 05/25/22 pramipexole 0.25 mg tablet (Mirapex) 0.25 mg PO QHS 05/25/22 venlafaxine 75 mg capsule,extended release 24 hr 75 mg PO DAILY 05/25/22 linezolid 600 mg tablet 600 mg PO Q12H 11 days #22 tabs 05/28/22 modafinil 100 mg tablet 100 mg PO DAILY #3 tabs 05/28/22 modafinil 200 mg tablet 100 mg PO DAILY 3 days #2 tabs 05/28/22 morphine 30 mg tablet,extended release 30 mg PO BID PAIN 3 days #6 tabs 05/28/22 oxycodone-acetaminophen 5 mg-325 mg tablet 1 tab PO Q12H PRN Pain 3 days #6 tabs 05/28/22 pregabalin 150 mg capsule 150 mg PO BID PAIN 3 days #6 caps 05/28/22 rivaroxaban 15 mg tablet (Xarelto) 15 mg PO DINNER 30 days #0 tabs 05/28/22 Hospital Course Summary of Care Provided Minutes Spent on Discharge: 35 Hospital Course: Ms. Bal is a 72-year-old female with a history of type 2 diabetes mellitus, COPD, history of DVT on Xarelto, RILEY, paroxysmal A. fib, and RLS who presented to [facility] 05/25/2022 with an infected left second toe. Had hurt it 3 to 4 weeks prior to admission and it was becoming much worse. There was concern for osteo so she was admitted and podiatry consulted and she was started on antibiotics. MRI ruled out osteomyelitis, she was on Vanco and meropenem, culture grew several organisms that were all sensitive to linezolid. There was thought of possible surgery while admitted but given her improvement she will be discharged on linezolid for total of 14 days, but will need to follow-up with the wound care clinic in 1 week. Will need a weekly CBC while on linezolid, likely will only need 1 more than 7 days unless antibiotics need prolonged based on clinical results. Of note while she was admitted her reported dose of Xarelto was 2.5 mg but given her history of A. fib this had been increased to therapeutic dose of 15 mg. She was discharged to SNF in stable condition. Physical Exam Const alert and no apparent distress Constitutional Narrative: Oriented HEENT normocephalic and head/scalp atraumatic Eyes Eyes Narrative: EOM grossly intact, anicteric Neck supple Resp normal respiratory effort and clear to auscultation bilaterally Cardio regular rate and regular rhythm GI soft to palpation, non-tender and non-distended Extremity Extremity Narrative: No pitting edema appreciated Skin Skin Narrative: Chronic bilateral lower extremities, left foot wrapped Neuro moves all extremities Neuro Narrative: No overt focal deficits appreciated Psych Psych Narrative: Cooperative Weight / BMI Weight Weight: 115.4 kg Body Mass Index (BMI) 48.0 ABG / Lab / Microbiology Data Result Diagrams: 05/28/22 08:30 05/28/22 08:30 Laboratory: Laboratory Results - last 24 hr 05/27/22 17:43: POC Glucose 166 H 05/27/22 21:28: POC Glucose 170 H 05/28/22 06:50: POC Glucose 86 05/28/22 07:19: Vancomycin Trough 23.9 H 05/28/22 08:30: WBC 5.5, RBC 3.87 L, Hgb 12.2, Hct 36.0 L, MCV 93.0, MCH 31.5, MCHC 33.9, RDW Std Deviation 44.1 H, RDW Coeff of Melissa 13.1, Plt Count 152, MPV 9 .6, Immature Gran % (Auto) 0.200, Neut % (Auto) 64.5, Lymph % (Auto) 22.8, Anderson % (Auto) 8.2, Eos % (Auto) 3.6, Baso % (Auto) 0.7, Absolute Neuts (auto) 3.5, Absolute Lymphs (auto) 1.25, Nucleated RBC % 0 05/28/22 08:30: Sodium 141, Potassium 4.0, Chloride 104, Carbon Dioxide 28.0, Anion Gap 9, BUN 22 H, Creatinine 0.74, Estim Creat Clear Calc 37.24, Est GFR (MDRD) Af Amer 99, Est GFR (MDRD) Non-Af 82, BUN/Creatinine Ratio 29.8 H, Glucose 94, Calcium 9.1 05/28/22 11:08: POC Glucose 174 H Microbiology: Microbiology 05/25/22 15:09 Wound - Toe Gram Stain - Final 05/25/22 15:09 Wound - Toe Wound Culture - Final Meth. resistant Staph. aureus Enterococcus faecalis Meaningful Use Info Meaningful Use Diagnoses (Choose all that apply): None applicable Discharge Plan Admission Admit Date/Time: 05/25/22 17:48 Primary Reason for Your Visit: Infected left toe Attending Provider: Georgina Plascencia Primary Care Provider: Efren Argueta Consulting Providers: Malachi Elaine ; Hernandez Douglas ; Nery Cisse ; Saqib Cardoso Instructions Patient Instructions: Can You Control Diabetes ... Additional Instructions / Restrictions: ? Due to your infection you will be discharged on linezolid through June 07, 2022 for a total of 14 days of antibiotics. ? You will need a CBC (blood work) weekly while on Zyvox ?Due to your paroxysmal atrial fibrillation your Xarelto was increased to therapeutic dose of 15 mg daily Will be important for daily dressing changes consisting of Betadine paint applied directly to the distal yesi and interdigital spaces of the second and third digits on the left side along with 4 x 4 Kerlix and Yong bandage ?Maintain a heel weightbearing status in her surgical shoe assisted by walker ? Will be important to follow-up in the wound care center in 1 week for additional care ? Continue pain management per your prescribing physician ?You have been on 8 units of long-acting insulin while admitted you have done well on this, continue this with your insulin regimen at this time -Please call your primary care provider's office upon discharge to schedule a hospital follow up within 1 week. -For any concerning signs or symptoms please call 911 or proceed to the nearest emergency department ? Please continue to follow with podiatry Discharge Orders/Prescriptions Prescriptions: New Xarelto 15 mg Tablet 15 mg PO DINNER 30 Days Qty: 0 0RF linezolid 600 mg tablet 600 mg PO Q12H 11 Days Qty: 22 0RF modafinil 200 mg Tablet 100 mg PO DAILY 3 Days Qty: 2 0RF Continued fluticasone propionate 1 SPRAY spray,suspension 1 spray NASAL QHS furosemide 80 MG tablet 40 mg PO DAILY atorvastatin [Lipitor] 10 mg Tablet 10 mg PO QHS diltiazem HCl 360 mg Capsule,Extended Release 24 Hr 360 mg PO DAILY ferrous sulfate [iron] 325 mg (65 mg iron) Tablet 325 mg PO BID omeprazole 40 mg Capsule,Delayed Release(Dr/Ec) 40 mg PO DAILY spironolactone 50 mg Tablet 50 mg PO DAILY multivitamin Tablet 1 tab PO DAILY acetaminophen 325 mg Tablet 650 mg PO Q4H PRN (Reason: Pain) bisacodyl 10 mg Suppository 10 mg ND DAILY PRN (Reason: Constipation) budesonide 0.5 mg/2 mL Suspension For Nebulization 0.5 mg INHALATION BID oxybutynin chloride 5 mg Tablet 5 mg PO QHS methenamine hippurate 1 gram tablet 0.5 g PO BID venlafaxine 75 mg capsule,extended release 24hr 75 mg PO DAILY oxybutynin chloride 15 mg tablet extended release 24hr 15 mg PO DAILY potassium chloride 20 mEq tablet,ER particles/crystals 20 meq PO BID pramipexole [Mirapex] 0.25 mg Tablet 0.25 mg PO QHS metformin 500 mg Tablet Extended Release 24 Hr 1,500 mg PO DAILY insulin glargine [Basaglar KwikPen U-100 Insulin] 100 unit/mL (3 mL) insulin pen 8 unit SUBCUT DAILY Lactobacillus acidophilus 1 tab PO/SL DAILY morphine 30 mg tablet extended release 30 mg PO BID 3 Days Qty: 6 0RF modafinil 100 mg Tablet 100 mg PO DAILY Qty: 3 0RF Changed oxycodone-acetaminophen 5-325 mg tablet 1 tab PO Q12H PRN (Reason: Pain) 3 Days Qty: 6 0RF pregabalin 150 mg capsule 150 mg PO BID 3 Days Qty: 6 0RF Discontinued rivaroxaban 2.5 mg Tablet 2.5 mg PO QHS Hold Instructions: Resume on 04/15/22. insulin lispro [Humalog KwikPen Insulin] 100 unit/mL Insulin Pen 8 unit SUBCUT DAILY Rx Instructions: INJECT 8 UNITS SUBCUTANEOUSLY IN THE AFTERNOON Referrals / Follow Up: Wound Care, Center [Other] - In 1 Week Efren Argueta DO [Primary Care Provider] - Malachi Elaine DPM [Med Staff - Active Staff] - Disposition Disposition (needs filled in before D/C Order can be placed): Shelter Facility Charges/Coding Visit Charges Inpatient E&M: 18301 Disch Hosp
--- NOTE | 2022-05-28 16:26 | CASEMGMT ---
Social Work Nurse and informed pt of discharge to [facility]. Pt returning to intermediate level of care and SNF will obtain precert once pt is there. Placed copies of discharge orders on chart and sent originals in envelope to go with pt. KRISTIN set up transportation for pt via [facility] with a wheelchair for 7 pm. KRISTIN faxed discharge orders to [facility] via [facility]. Dispo: [facility], intermedite level of care. SHARATH Kahn
[2022-05-28] MEDS: Juven (unflavored) Packet 1 PACKET PO (16:34)
[2022-05-28] MEDS: Rivaroxaban 15 MG Tablet PO (16:34)
[2022-05-28 17:06] LABS: Bedside Glucose 109 mg/dL (74-106)
== END 2022-05-28 21:45 | disposition skilled nursing facility (03) | DRG 623 ==
LOC: ED 17:04 → MS3 18:07
PROVIDERS: Internal Medicine; Admitting Provider Family Medicine; Emergency Provider Emergency Medicine; PCP Family Medicine; Visit Provider Internal Medicine
DX: E11.621 Type 2 diabetes mellitus with foot ulcer (principal); L03.116 Cellulitis of left lower limb; J96.11 Chronic respiratory failure with hypoxia; Z68.42 Body mass index [BMI] 45.0-49.9, adult; E11.42 Type 2 diabetes mellitus with diabetic polyneuropathy; L03.032 Cellulitis of left toe; I48.0 Paroxysmal atrial fibrillation; G47.419 Narcolepsy without cataplexy; E11.628 Type 2 diabetes mellitus with other skin complications; L97.522 Non-pressure chronic ulcer of other part of left foot with fat layer exposed; J44.9 Chronic obstructive pulmonary disease, unspecified; Z79.4 Long term (current) use of insulin; E66.01 Morbid (severe) obesity due to excess calories; Z89.412 Acquired absence of left great toe; M20.42 Other hammer toe(s) (acquired), left foot; G47.33 Obstructive sleep apnea (adult) (pediatric); I10 Essential (primary) hypertension; E78.00 Pure hypercholesterolemia, unspecified; K21.9 Gastro-esophageal reflux disease without esophagitis; I89.0 Lymphedema, not elsewhere classified; Z20.822 Contact with and (suspected) exposure to COVID-19; G89.29 Other chronic pain; Z99.81 Dependence on supplemental oxygen; Z79.01 Long term (current) use of anticoagulants; Z79.51 Long term (current) use of inhaled steroids; Z79.899 Other long term (current) drug therapy
CPT/HCPCS: 36415; 36569; 73630; 73718; 80048; 80202; 82962; 85025; 85610; 85730; 87040; 87070; 87077; 87186; 87205; 87811; 93923; 94002; 94003; 94640; 94762; 97110; 97116; 97161; 97166; 97530; 97535; 99285; J2185; J7040; J7050; A4216

== ENCOUNTER → 2022-05-29 | Outpatient (REF) | payer MEDICARE, MEDICAID, SELFPAY ==
[2022-05-29 09:02] LABS: Absolute Lymphocyte Count 1.46 X10^3/uL (0.83-4.51); Absolute Neutrophil Count 3.3 X10^3/uL (2.0-7.7); Basophil# 0.04 X10^3/uL; Basophil% 0.7 % (0-1); Eosinophil# 0.21 X10^3/uL; Eosinophils% 3.9 % (0-5); Hematocrit 36.6 % (37-47); Hemoglobin 12.4 g/dL (12.0-15.0); Lymphocyte # 1.46 X10^3/ul (0.83-4.51); Mean Corp Hgb Conc 33.9 g/dL (32-36); Mean Corpuscular Hgb 31.4 pg (27.0-32.0); Mean Corpuscular Volume 92.7 fL (81-99); Mean Platelet Vol. 9.8 fl (6.2-12.0); Monocyte# 0.39 X10^3/uL; Monocyte% 7.2 % (0-10); NRBC Flagged by Analyzer 0 % (0-5); Neutrophil # 3.29 X10^3/uL (2.7-7.7); Platelet Count 190 K/mm3 (150-450); RBC Distribution Width SD 44.1 fl (35.1-43.9); Red Blood Count 3.95 M/mm3 (4.2-5.4); White Blood Count 5.4 K/mm3 (4.4-11.0)
[2022-05-29 09:07] LABS: Anion Gap 4 (5-15); BUN 27 mg/dL (7-18); BUN/Creat Ratio 29.2 RATIO (10-20); Calcium,Total 9.3 mg/dL (8.5-10.1); Chloride 104 mmol/L (98-107); Creatinine, Serum 0.92 mg/dL (0.55-1.02); EST Glomerular Filtration Rate 63 mL/min (>60); Est Glom Filt Rate - Afr Amer 76 mL/min (>60); Glucose 120 mg/dL (74-106); Magnesium 2.1 mg/dL (1.6-2.6); Potassium 4.3 mmol/L (3.5-5.1); Sodium Level 138 mmol/L (136-145)
== END ==
LOC: OLS.SW 05:00
PROVIDERS: PCP Family Medicine; Visit Provider Internal Medicine
DX: I10 Essential (primary) hypertension (principal); E11.9 Type 2 diabetes mellitus without complications; R53.83 Other fatigue; E87.1 Hypo-osmolality and hyponatremia
CPT/HCPCS: 36415; 80048; 83735; 85025

== ENCOUNTER → 2022-06-04 | Outpatient (REF) | payer MEDICARE, MEDICAID, SELFPAY ==
[2022-06-04 08:59] LABS: Hematocrit 37.2 % (37-47); Hemoglobin 12.7 g/dL (12.0-15.0); Mean Corp Hgb Conc 34.1 g/dL (32-36); Mean Corpuscular Hgb 31.8 pg (27.0-32.0); Mean Corpuscular Volume 93.2 fL (81-99); Mean Platelet Vol. 10.3 fl (6.2-12.0); Platelet Count 207 K/mm3 (150-450); RBC Distribution Width CV 13.3 % (11.6-14.6); RBC Distribution Width SD 45.6 fl (35.1-43.9); Red Blood Count 3.99 M/mm3 (4.2-5.4)
== END ==
LOC: OLS.SW 05:00
PROVIDERS: PCP Family Medicine; Visit Provider Internal Medicine
DX: I10 Essential (primary) hypertension (principal)
CPT/HCPCS: 36415; 85027

== ENCOUNTER → 2022-06-05 | Outpatient (REF) | payer MEDICARE, MEDICAID, SELFPAY ==
[2022-06-05 08:16] LABS: Absolute Lymphocyte Count 1.81 X10^3/uL (0.83-4.51); Absolute Neutrophil Count 4.5 X10^3/uL (2.0-7.7); Basophil# 0.05 X10^3/uL; Basophil% 0.7 % (0-1); Eosinophil# 0.23 X10^3/uL; Eosinophils% 3.2 % (0-5); Hematocrit 36.6 % (37-47); Hemoglobin 12.1 g/dL (12.0-15.0); Lymphocyte # 1.81 X10^3/ul (0.83-4.51); Mean Corp Hgb Conc 33.1 g/dL (32-36); Mean Corpuscular Hgb 30.7 pg (27.0-32.0); Mean Corpuscular Volume 92.9 fL (81-99); Mean Platelet Vol. 9.7 fl (6.2-12.0); Monocyte# 0.59 X10^3/uL; Monocyte% 8.2 % (0-10); NRBC Flagged by Analyzer 0 % (0-5); Neutrophil # 4.52 X10^3/uL (2.7-7.7); Neutrophil % 62.5 % (47-70); Platelet Count 179 K/mm3 (150-450); RBC Distribution Width CV 13.2 % (11.6-14.6); RBC Distribution Width SD 45.1 fl (35.1-43.9); Red Blood Count 3.94 M/mm3 (4.2-5.4); White Blood Count 7.2 K/mm3 (4.4-11.0)
[2022-06-05 08:23] LABS: Anion Gap 5 (5-15); BUN 19 mg/dL (7-18); BUN/Creat Ratio 20.9 RATIO (10-20); Calcium,Total 8.9 mg/dL (8.5-10.1); Chloride 104 mmol/L (98-107); Creatinine, Serum 0.91 mg/dL (0.55-1.02); EST Glomerular Filtration Rate 64 mL/min (>60); Est Glom Filt Rate - Afr Amer 78 mL/min (>60); Glucose 112 mg/dL (74-106); Potassium 4.7 mmol/L (3.5-5.1); Sodium Level 136 mmol/L (136-145)
== END ==
LOC: OLS.SW 05:00
PROVIDERS: PCP Family Medicine; Visit Provider Internal Medicine
DX: R53.83 Other fatigue (principal); L03.90 Cellulitis, unspecified
CPT/HCPCS: 36415; 80048; 85025; 86140

== ENCOUNTER 2022-06-07 08:31 | Outpatient (RCR) | payer MEDICARE, MEDICAID, SELFPAY ==
[2022-06-07 09:50] VITALS: BP 93/53; PULSE 69; TEMP 36.1
--- NOTE | 2022-06-07 10:28 | PCM.WC.HP ---
History of Present Illness Date of Service: 06/07/22 Chief Complaint: Bilateral leg and bilateral foot ulcers History of Wound: This is a 72-year-old white female who presents to the wound healing center today with complaint of wounds to left lower extremity digit 2 and 3. She has a past medical history as listed above significant for lymphedema, venous insufficiency, elephantiasis, type 2 diabetes mellitus, RILEY, hypertension, and morbid obesity. She reports a recent hospital admission to [facility] for cellulitis and ulceration to the distal tuft of the second and third digit of the left foot. During her stay she was seen by podiatry who recommended offloading, local wound care, or possible surgical intervention to correct her hammertoe deformity of these digits. She states that nursing at [facility] has been continuing to dress her wounds. She has been offloading by remaining in a wheelchair and wearing a surgical shoe to bilateral foot. [facility] Medical History Anemia Anxiety and depression Arthritis Asthma Back pain Benign hypertension Bilateral lower extremity edema BiPAP (biphasic positive airway pressure) dependence Cholelithiasis Chronic acquired lymphedema Chronic back pain Chronic malnutrition Chronic stasis dermatitis of left lower extremity COPD (chronic obstructive pulmonary disease) Decreased pedal pulses Depression Diabetic ulcer of left foot Diabetic ulcer of right foot Diabetic ulcer of toe of left foot DVT (deep venous thrombosis) Elephantiasis Hammertoe of left foot High cholesterol History of edema History of kidney stones History of pain when walking History of stress test HLD (hyperlipidemia) Hoarseness Hypertension Increased BMI Insulin dependent diabetes mellitus Leg cramps Localized edema MRSA infection Nonhealing ulcer of left lower extremity with fat layer exposed Nonhealing ulcer of right lower extremity with fat layer exposed halfway resident On home oxygen therapy RILEY (obstructive sleep apnea) PAF (paroxysmal atrial fibrillation) Peripheral neuropathy Renal lithiasis Rheumatic fever RLS (restless legs syndrome) Seasonal allergies Shortness of breath on exertion Type 2 diabetes mellitus Type 2 diabetes mellitus with diabetic polyneuropathy Ulcer of left foot with fat layer exposed Ulcer of right foot with fat layer exposed Venous insufficiency Venous stasis ulcer of right thigh with fat layer exposed Venous ulcer of left lower extremity with varicose veins Venous ulcer of right lower extremity with varicose veins Home Medications fluticasone propionate 50 mcg/actuation nasal spray,suspension 1 spray QHS allergies 02/16/14 [History Last Taken 05/24/22] furosemide 80 mg tablet 40 mg PO DAILY EDEMA 05/07/19 [History Last Taken 05/25/22] acetaminophen 325 mg tablet 650 mg PO Q4H PRN Pain 09/09/21 [History Last Taken 05/23/22] atorvastatin 10 mg tablet (Lipitor) 10 mg PO QHS cholesterol 09/09/21 [History Last Taken 05/24/22] bisacodyl 10 mg rectal suppository 10 mg MT DAILY PRN Constipation 09/09/21 [History Last Taken Unknown] budesonide 0.5 mg/2 mL suspension for nebulization 0.5 mg inhalation BID sob 09/09/21 [History Last Taken Unknown] diltiazem HCl 360 mg capsule,24 hr,extended release 360 mg PO DAILY 09/09/21 [History Last Taken 05/25/22] ferrous sulfate 325 mg (65 mg iron) tablet (iron) 325 mg PO BID supplement 09/09/21 [History Last Taken 05/25/22] multivitamin 1 tab PO DAILY supplement 09/09/21 [History Last Taken 05/25/22] omeprazole 40 mg capsule,delayed release 40 mg PO DAILY gerd 09/09/21 [History Last Taken 05/25/22] oxybutynin chloride 5 mg tablet 5 mg PO QHS bladder spasms 09/09/21 [History Last Taken 05/24/22] spironolactone 50 mg tablet 50 mg PO DAILY 09/09/21 [History Last Taken 05/25/22] methenamine hippurate 1 gram tablet 0.5 g PO BID 12/18/21 [History Last Taken 05/25/22] Lactobacillus acidophilus 1 tab PO/SL DAILY 05/25/22 [History Last Taken 05/25/22] insulin glargine 100 unit/mL (3 mL) subcutaneous pen (Basaglar KwikPen U-100 Insulin) 8 unit subcut DAILY diabetes 05/25/22 [History Last Taken 05/25/22] metformin 500 mg tablet,extended release 24 hr 1,500 mg PO DAILY DIABETES 05/25/22 [History Last Taken 05/25/22] oxybutynin chloride 15 mg tablet,extended release 24 hr 15 mg PO DAILY BLADDER SPASMS 05/25/22 [History Last Taken 05/25/22] potassium chloride 20 mEq tablet,extended release(part/cryst) 20 meq PO BID SUPPLEMENT 05/25/22 [History Last Taken 05/25/22] pramipexole 0.25 mg tablet (Mirapex) 0.25 mg PO QHS 05/25/22 [History Last Taken 05/24/22] venlafaxine 75 mg capsule,extended release 24 hr 75 mg PO DAILY 05/25/22 [History Last Taken 05/25/22] linezolid 600 mg tablet 600 mg PO Q12H 11 days #22 tabs 05/28/22 [Rx Last Taken Unknown] modafinil 100 mg tablet 100 mg PO DAILY #3 tabs 05/28/22 [Rx Last Taken Unknown] modafinil 200 mg tablet 100 mg PO DAILY 3 days #2 tabs 05/28/22 [Rx Last Taken Unknown] morphine 30 mg tablet,extended release 30 mg PO BID PAIN 3 days #6 tabs 05/28/22 [Rx Last Taken Unknown] oxycodone-acetaminophen 5 mg-325 mg tablet 1 tab PO Q12H PRN Pain 3 days #6 tabs 05/28/22 [Rx Last Taken Unknown] pregabalin 150 mg capsule 150 mg PO BID PAIN 3 days #6 caps 05/28/22 [Rx Last Taken Unknown] rivaroxaban 15 mg tablet (Xarelto) 15 mg PO DINNER 30 days #0 tabs 05/28/22 [Rx Last Taken Unknown] Allergy/AdvReac Type Severity Reaction Status Date / Time aspirin Allergy Hives Verified 05/25/22 14:13 latex Allergy Rash Verified 05/25/22 14:13 Penicillins Allergy Hives Verified 05/25/22 14:13 Sulfa (Sulfonamide Allergy Hives Verified 05/25/22 14:13 Antibiotics) Family History Mother Heart disease Father Heart disease Surgical History History of cardiac catheterization History of ERCP History of hysterectomy Hx of dilation and curettage Hx of toe surgery S/P laparoscopic cholecystectomy Social History housing: detention Smoking Status: Never smoker alcohol intake: never substance use type: does not use ROS Constitutional Constitutional: Denies anorexia, chills, fever(s) or night sweats Eyes Eyes: Denies blurry vision, change in vision or double vision ENT HEENT: Denies nasal congestion, nasal discharge or sore throat Cardiovascular Cardiovascular: Denies chest pain or dyspnea Respiratory/Chest Respiratory/Chest: Denies cough or shortness of breath at rest Gastrointestinal Gastrointestinal: Denies abdominal pain, constipation, diarrhea, nausea or vomiting Genitourinary Genitourinary: Denies dysuria or hematuria Musculoskeletal Musculoskeletal: Denies joint pain, joint stiffness or joint swelling Integumentary Integumentary: Denies lesions, pruritus or rash Neurologic Neurologic: Denies confusion, dizziness or seizures Endocrine Endocrinology: Denies cold intolerance or heat intolerance Hematologic/Lymphatic Hematologic/Lymphatic: Denies easy bleeding or easy bruising Vital Signs Vital Signs Vital Signs: 06/07/22 09:50 Temperature 97.0 F L Temperature Source Temporal Pulse Rate 69 Blood Pressure 93/53 L Blood Pressure Mean 66 Blood Pressure Source Monitor Blood Pressure Position Sitting Blood Pressure Location Right Arm Physical Exam Const alert, oriented x3, no apparent distress and well nourished General Appearance: cooperative HEENT normocephalic Eyes General Eye: normal appearance of both eyes Neck General: normal visual inspection Lymph Lymphatic: no lymphadenopathy noted and no lymphedema noted Resp normal respiratory effort Cardio regular rate and regular rhythm Extremity normal capillary refill, no joint enlargement, no calf tenderness and no pedal edema Skin no rashes or lesions noted, skin turgor normal and no jaundice Wound Narrative: Distal tuft digit to and 3 of the left foot demonstrate subdermal hemorrhaging secondary to resulting pressure from hammertoe deformity. No open wounds noted. Site is stable. No signs of infection Neuro moves all extremities Debridement Note Debridement Note No debridement was completed: No debridement was completed today Post-Debridement Measurements and Additional Note: Post-Debridement Measurements/Treatment [facility] - Nurse 1 - General Ulcer Assessment Start: 06/07/22 09:49 Freq: Status: Active Protocol: BRISA Activity Type Activity Date Activity User E-sign Co-sign Detail Recorded Client Recorded Date Recorded By Document 06/07/22 09:50 KR [id number] 06/07/22 09:59 KR 06/07/22 09:50 - Today's Visit Information Type of service Initial Visit Arrival Mode Wheelchair Patient Identification Verified (Name & Yes ) Vital Signs Temperature (97.8 F-99.1 F) 97.0 F L Temperature Source Temporal Pulse Rate (60-100) 69 Pulse Location Monitor Blood Pressure (90/60-120/80) 93/53 L Blood Pressure Mean 66 Source Monitor Position Sitting Blood Pressure Location Right Arm History Since Last Visit- (Skip if this is Patient's initial visit) Have you changed medications since your No last visit? Any new allergies or adverse reactions No Had a fall/change in ADL's that may No increase risk of falls Signs or symptoms of abuse and/or No neglect since last visit Have you been in the hospital since your No last visit? Has dressing in place as prescribed Yes Has compression in place as prescribed N/A Has offloadiing in place as prescribed N/A Experienced any changes in pain level or No management Left Footwear Regular Shoe Right Footwear Regular Shoe Pain Scale: 0-10 Numeric Is Patient Pain Free? Yes WC - Nurse 1 - General Ulcer Measurement Start: 06/07/22 09:49 Freq: Status: Active Protocol: Activity Type Activity Date Activity User E-sign Co-sign Detail Recorded Client Recorded Date Recorded By Document 06/07/22 09:50 [id number] 06/07/22 09:59 KR 06/07/22 09:50 Wound Center Nurse 1 #22 LEFT 3rd TOE -Current Size (cm) - Length 0.7 -Current Size (cm) - Width 0.9 -Current Size (cm) - Depth 0.1 -Total Square Cm 0.63 -Exudate Amt None Present -Wound Margin Distinct, Outline Attached -Granulation Amt Small (1-33%) -Granulation Quality [place] Mel -Necrosis Amt None Present (0 %) -Texture (Beatris-wound Skin Appearance) Assessed, Scarring -Moisture (Beatris-wound Skin Appearance) No Abnormality, Assessed -Color (Beatris-wound Skin Appearance) No Abnormality, Assessed -Temperature ([place]-wound Skin No Abnormality Appearance) (Pt Warm) -Tenderness on Palpation (Beatris-wound No Skin Appearance) -Ulcer Cleansing Rinsed/ Irrigated with Saline -Foul Odor after Cleansing No -Anesthetic Used 5% Lidocaine Gel #21 Left 2ND TOE -Current Size (cm) - Length 1.5 -Current Size (cm) - Width 0.7 -Current Size (cm) - Depth 0.1 -Total Square Cm 1.05 -Exudate Amt Small -Exudate Type Serosanguineous -Wound Margin Distinct, Outline Attached -Granulation Amt Small (1-33%) -Granulation Quality [place] Mel -Necrosis Amt None Present (0 %) -Texture (Beatris-wound Skin Appearance) Assessed, Scarring -Moisture (Beatris-wound Skin Appearance) No Abnormality, Assessed -Color (Beatris-wound Skin Appearance) No Abnormality, Assessed -Temperature (Beatris-wound Skin No Abnormality Appearance) (Pt Warm) -Tenderness on Palpation (Beatris-wound No Skin Appearance) -Ulcer Cleansing Rinsed/ Irrigated with Saline -Foul Odor after Cleansing No -Anesthetic Used 5% Lidocaine Gel Assessment/Plan Assessment/Plan (1) Hammertoe of left foot: CODE(S): M20.42 - Other hammer toe(s) (acquired), left foot (2) Non-pressure chronic ulcer of other part of left foot with fat layer exposed: CODE(S): L97.522 - Non-pressure chronic ulcer of other part of left foot with fat layer exposed (3) Type 2 diabetes mellitus with diabetic polyneuropathy: CODE(S): E11.42 - Type 2 diabetes mellitus with diabetic polyneuropathy PLAN: Plan Patient seen and evaluated Her ulcerations during her hospital stay measured 0.5 cm x 0.5 cm x 0.1 cm to the distal tuft of the second digit of the left foot. She was also noted at that time to have subdermal hemorrhaging consistent with pressure secondary to her hammertoe deformity of digit 3. Today 06/07/2022 she demonstrates no open wounds to the distal tuft of the second digit or the third digit. Digits are stable with no signs of infection. There is evidence of subdermal hemorrhaging that is consistent with her pressure secondary to hammertoe deformity. Hammertoes of digits 2 and 3 are noted to be semirigid in nature. I discussed with her today offloading of the digits with a buttress pad versus corrective hammertoe surgery to reduce the pressure at both of her digits. She is currently ambulating in a surgical shoe to the left and right foot. I recommended continuing of the surgical shoe and offloading as much as possible. Given no open wounds at this current time she will be seen as follow-up in the office to further discuss offloading and diabetic shoes. Note: [employer] speech recognition private investigator surveillance software was used to create portions of this document. Sound-alike and misspelled words, as well as other private investigator surveillance errors may be contained in the documentation.
== END 2022-06-07 15:48 | disposition home or self-care (01) ==
LOC: WC 08:31
PROVIDERS: PCP Family Medicine; Visit Provider Student in an Organized Health Care Education/Training Program
DX: E11.621 Type 2 diabetes mellitus with foot ulcer (principal); L97.522 Non-pressure chronic ulcer of other part of left foot with fat layer exposed; J44.9 Chronic obstructive pulmonary disease, unspecified; E11.42 Type 2 diabetes mellitus with diabetic polyneuropathy; I48.0 Paroxysmal atrial fibrillation; E66.01 Morbid (severe) obesity due to excess calories; Z79.4 Long term (current) use of insulin; M20.42 Other hammer toe(s) (acquired), left foot; I89.0 Lymphedema, not elsewhere classified; G89.29 Other chronic pain; I10 Essential (primary) hypertension; E78.00 Pure hypercholesterolemia, unspecified; G47.33 Obstructive sleep apnea (adult) (pediatric); Z79.01 Long term (current) use of anticoagulants; Z79.899 Other long term (current) drug therapy
CPT/HCPCS: 99213; G0463

== ENCOUNTER → 2022-06-11 | Outpatient (REF) | payer MEDICARE, MEDICAID, SELFPAY ==
[2022-06-11 08:23] LABS: Hemoglobin 12.3 g/dL (12.0-15.0); Mean Corp Hgb Conc 34.2 g/dL (32-36); Mean Corpuscular Hgb 31.7 pg (27.0-32.0); Mean Corpuscular Volume 92.8 fL (81-99); Mean Platelet Vol. 9.5 fl (6.2-12.0); Platelet Count 135 K/mm3 (150-450); RBC Distribution Width CV 13.9 % (11.6-14.6); RBC Distribution Width SD 45.8 fl (35.1-43.9); Red Blood Count 3.88 M/mm3 (4.2-5.4); White Blood Count 5.5 K/mm3 (4.4-11.0)
== END ==
LOC: OLS.SW 04:00
PROVIDERS: PCP Family Medicine; Referring Provider Internal Medicine; Visit Provider Internal Medicine
DX: J44.9 Chronic obstructive pulmonary disease, unspecified (principal); E11.9 Type 2 diabetes mellitus without complications; L08.9 Local infection of the skin and subcutaneous tissue, unspecified; I10 Essential (primary) hypertension
CPT/HCPCS: 36415; 85027

== ENCOUNTER → 2022-06-12 | Outpatient (REF) | payer MEDICARE, MEDICAID, SELFPAY ==
[2022-06-12 08:10] LABS: Absolute Lymphocyte Count 1.67 X10^3/uL (0.83-4.51); Absolute Neutrophil Count 4.4 X10^3/uL (2.0-7.7); Basophil# 0.05 X10^3/uL; Basophil% 0.7 % (0-1); Eosinophils% 2.9 % (0-5); Hematocrit 34.6 % (37-47); Hemoglobin 11.5 g/dL (12.0-15.0); Lymphocyte # 1.67 X10^3/ul (0.83-4.51); Lymphocyte % 23.8 % (19-41); Mean Corp Hgb Conc 33.2 g/dL (32-36); Mean Corpuscular Hgb 30.9 pg (27.0-32.0); Mean Platelet Vol. 9.7 fl (6.2-12.0); NRBC Flagged by Analyzer 0 % (0-5); Neutrophil # 4.36 X10^3/uL (2.7-7.7); Neutrophil % 62.2 % (47-70); Platelet Count 132 K/mm3 (150-450); RBC Distribution Width CV 13.6 % (11.6-14.6); RBC Distribution Width SD 45.1 fl (35.1-43.9); Red Blood Count 3.72 M/mm3 (4.2-5.4)
[2022-06-12 08:18] LABS: Anion Gap 6 (5-15); BUN 18 mg/dL (7-18); BUN/Creat Ratio 23.2 RATIO (10-20); CRP 4.39 mg/L (0.0-3.0); Calcium,Total 8.8 mg/dL (8.5-10.1); Chloride 104 mmol/L (98-107); Creatinine, Serum 0.78 mg/dL (0.55-1.02); EST Glomerular Filtration Rate 77 mL/min (>60); Est Glom Filt Rate - Afr Amer 93 mL/min (>60); Glucose 111 mg/dL (74-106); Potassium 4.6 mmol/L (3.5-5.1); Sodium Level 138 mmol/L (136-145)
== END ==
LOC: OLS.SW 05:00
PROVIDERS: PCP Family Medicine; Visit Provider Internal Medicine
DX: I10 Essential (primary) hypertension (principal); E11.9 Type 2 diabetes mellitus without complications; L03.90 Cellulitis, unspecified; Z79.899 Other long term (current) drug therapy
CPT/HCPCS: 36415; 80048; 85025; 86140

== ENCOUNTER → 2022-08-07 | Outpatient (REF) | payer MEDICARE, MEDICAID, SELFPAY ==
[2022-08-07 09:44] LABS: Hemoglobin A1c 5.9 % (3.8-5.6)
== END ==
LOC: OLS.SW 05:00
PROVIDERS: PCP Family Medicine; Visit Provider Internal Medicine
DX: E11.9 Type 2 diabetes mellitus without complications (principal)
CPT/HCPCS: 36415; 83036

== ENCOUNTER 2022-09-09 21:45 | Emergency (ER) | payer MEDICARE, MEDICAID, SELFPAY ==
[2022-09-09 21:47] VITALS: BP 117/55; PULSE 73; RESP 19; TEMP 37.3; O2SAT 89; O2SAT 96; BMI 51.5
[2022-09-09 22:37] LABS: Absolute Lymphocyte Count 1.06 X10^3/uL (0.83-4.51); Absolute Neutrophil Count 14.2 X10^3/uL (2.0-7.7); Basophil# 0.04 X10^3/uL; Basophil% 0.2 % (0-1); Eosinophil# 0.02 X10^3/uL; Eosinophils% 0.1 % (0-5); Hematocrit 35.5 % (37-47); Hemoglobin 12.1 g/dL (12.0-15.0); Lymphocyte # 1.06 X10^3/ul (0.83-4.51); Lymphocyte % 6.4 % (19-41); Mean Corp Hgb Conc 34.1 g/dL (32-36); Mean Corpuscular Hgb 30.9 pg (27.0-32.0); Mean Corpuscular Volume 90.8 fL (81-99); Mean Platelet Vol. 9.6 fl (6.2-12.0); Monocyte# 1.14 X10^3/uL; Monocyte% 6.9 % (0-10); NRBC Flagged by Analyzer 0 % (0-5); Neutrophil # 14.24 X10^3/uL (2.7-7.7); Neutrophil % 85.9 % (47-70); Platelet Count 156 K/mm3 (150-450); RBC Distribution Width CV 13.9 % (11.6-14.6); RBC Distribution Width SD 46.4 fl (35.1-43.9); Red Blood Count 3.91 M/mm3 (4.2-5.4); White Blood Count 16.6 K/mm3 (4.4-11.0)
[2022-09-09 22:53] LABS: Anion Gap 6 (5-15); BUN 24 mg/dL (7-18); BUN/Creat Ratio 21.2 RATIO (10-20); Calcium,Total 8.8 mg/dL (8.5-10.1); Chloride 104 mmol/L (98-107); Creatinine, Serum 1.13 mg/dL (0.55-1.02); EST Glomerular Filtration Rate 50 mL/min (>60); Est Glom Filt Rate - Afr Amer 60 mL/min (>60); Estimated Creatinine Clearance 31.37 ml/min; Glucose 122 mg/dL (74-106); Potassium 4.9 mmol/L (3.5-5.1); Sodium Level 138 mmol/L (136-145)
[2022-09-09 22:55] LABS: Acetaminophen (Tylenol) Level < 2.0 ug/mL (10.0-30.0); Alcohol, Blood (Medical)-Serum < 3.0 mg/dL; Salicylate < 1.7 mg/dL (2.8-20.0)
[2022-09-09 23:53] VITALS: PULSE 70; RESP 18
[2022-09-10 00:01] LABS: Amphetamine Urine VISTA NEGATIVE (<1000 ng/mL); Barbiturate Urine VISTA NEGATIVE (< 200 ng/mL); Benzodiazepine Urine VISTA NEGATIVE (< 200 ng/mL); Cocaine Urine VISTA NEGATIVE (< 300 ng/mL); Ecstacy Urine VISTA NEGATIVE (< 500 ng/mL); Methadone Urine VISTA NEGATIVE (< 300 ng/mL); PCP Urine VISTA NEGATIVE (< 25 ng/mL); THC Urine VISTA NEGATIVE (< 50 ng/mL); Vista UDS pH Range 5
[2022-09-10 01:00] VITALS: BP 102/54; PULSE 69; RESP 14; O2SAT 94
[2022-09-10] MEDS: Clindamycin 900 MG/50 ML BAG 75 MG IV (01:04)
--- NOTE | 2022-09-10 01:43 | EX.ED.DYSGE1 ---
HPI History of Present Illness Chief Complaint: General Illness Narrative Narrative: Patient is a 72-year-old female with history of type 2 diabetes as well as previous osteomyelitis of her left great toe requiring amputation. She stays at a residential and is prescribed Percocet and MS Contin for pain. Patient states that the residential gives her her medications and she states that she does not have family or friends to come to see her so she has no way to take anything from an outside source. Reportedly residential felt like patient was difficult to arouse and they did a tox screen and it reportedly tested positive for opioids which is consistent with her prescribed medications but there were other positives such as methamphetamines and benzodiazepines. They were worried that patient was receiving outside medication as she was difficult to arouse and therefore sent her to the hospital for evaluation. Patient states that she only takes a medication that is given to her and adamantly denies any excessive or illicit drug use. [facility] Medical History Anemia Anxiety and depression Arthritis Asthma Back pain Benign hypertension Bilateral lower extremity edema BiPAP (biphasic positive airway pressure) dependence Cholelithiasis Chronic acquired lymphedema Chronic back pain Chronic malnutrition Chronic stasis dermatitis of left lower extremity COPD (chronic obstructive pulmonary disease) Decreased pedal pulses Depression Diabetic ulcer of left foot Diabetic ulcer of right foot Diabetic ulcer of toe of left foot DVT (deep venous thrombosis) Elephantiasis Hammertoe of left foot High cholesterol History of edema History of kidney stones History of pain when walking History of stress test HLD (hyperlipidemia) Hoarseness Hypertension Increased BMI Insulin dependent diabetes mellitus Leg cramps Localized edema MRSA infection Nonhealing ulcer of left lower extremity with fat layer exposed Nonhealing ulcer of right lower extremity with fat layer exposed correction resident On home oxygen therapy RLIEY (obstructive sleep apnea) PAF (paroxysmal atrial fibrillation) Peripheral neuropathy Renal lithiasis Rheumatic fever RLS (restless legs syndrome) Seasonal allergies Shortness of breath on exertion Type 2 diabetes mellitus Type 2 diabetes mellitus with diabetic polyneuropathy Ulcer of left foot with fat layer exposed Ulcer of right foot with fat layer exposed Venous insufficiency Venous stasis ulcer of right thigh with fat layer exposed Venous ulcer of left lower extremity with varicose veins Venous ulcer of right lower extremity with varicose veins Home Medications fluticasone propionate 50 mcg/actuation nasal spray,suspension 1 spray QHS allergies 02/16/14 [History Last Taken 05/24/22] furosemide 80 mg tablet 40 mg PO DAILY EDEMA 05/07/19 [History Last Taken 05/25/22] acetaminophen 325 mg tablet 650 mg PO Q4H PRN Pain 09/09/21 [History Last Taken 05/23/22] bisacodyl 10 mg rectal suppository 10 mg MT DAILY PRN Constipation 09/09/21 [History Last Taken Unknown] budesonide 0.5 mg/2 mL suspension for nebulization 0.5 mg inhalation BID sob 09/09/21 [History Last Taken Unknown] diltiazem HCl 360 mg capsule,24 hr,extended release 360 mg PO DAILY 09/09/21 [History Last Taken 05/25/22] ferrous sulfate 325 mg (65 mg iron) tablet (iron) 325 mg PO BID supplement 09/09/21 [History Last Taken 05/25/22] multivitamin 1 tab PO DAILY supplement 09/09/21 [History Last Taken 05/25/22] omeprazole 40 mg capsule,delayed release 40 mg PO DAILY gerd 09/09/21 [History Last Taken 05/25/22] oxybutynin chloride 5 mg tablet 5 mg PO QHS bladder spasms 09/09/21 [History Last Taken 05/24/22] spironolactone 50 mg tablet 50 mg PO DAILY 09/09/21 [History Last Taken 05/25/22] methenamine hippurate 1 gram tablet 0.5 g PO BID 12/18/21 [History Last Taken 05/25/22] insulin glargine 100 unit/mL (3 mL) subcutaneous pen (Basaglar KwikPen U-100 Insulin) 8 unit subcut DAILY diabetes 05/25/22 [History Last Taken 05/25/22] metformin 500 mg tablet,extended release 24 hr 1,500 mg PO DAILY DIABETES 05/25/22 [History Last Taken 05/25/22] oxybutynin chloride 15 mg tablet,extended release 24 hr 15 mg PO DAILY BLADDER SPASMS 05/25/22 [History Last Taken 05/25/22] potassium chloride 20 mEq tablet,extended release(part/cryst) 20 meq PO BID SUPPLEMENT 05/25/22 [History Last Taken 05/25/22] venlafaxine 75 mg capsule,extended release 24 hr 75 mg PO DAILY 05/25/22 [History Last Taken 05/25/22] morphine 30 mg tablet,extended release 30 mg PO BID PAIN 3 days #6 tabs 05/28/22 [Rx Last Taken Unknown] oxycodone-acetaminophen 5 mg-325 mg tablet 1 tab PO Q12H PRN Pain 3 days #6 tabs 05/28/22 [Rx Last Taken Unknown] pregabalin 150 mg capsule 150 mg PO BID PAIN 3 days #6 caps 05/28/22 [Rx Last Taken Unknown] rivaroxaban 15 mg tablet (Xarelto) 15 mg PO DINNER 30 days #0 tabs 05/28/22 [Rx Last Taken Unknown] atorvastatin 10 mg tablet (Lipitor) 10 mg PO QHS 09/09/22 [History Last Taken Unknown] meclizine 25 mg tablet 25 mg PO TID PRN Vertigo 09/09/22 [History Last Taken Unknown] modafinil 200 mg tablet 150 mg PO DAILY 09/09/22 [History Last Taken Unknown] pramipexole 0.25 mg tablet (Mirapex) 0.25 mg PO QHS 09/09/22 [History Last Taken Unknown] clindamycin HCl 300 mg capsule 300 mg PO 4X/DAY 10 days #40 caps 09/10/22 [Rx Last Taken Unknown] Allergy/AdvReac Type Severity Reaction Status Date / Time aspirin Allergy Hives Verified 05/25/22 14:13 latex Allergy Rash Verified 05/25/22 14:13 Penicillins Allergy Hives Verified 05/25/22 14:13 Sulfa (Sulfonamide Allergy Hives Verified 05/25/22 14:13 Antibiotics) Family History Mother Heart disease Father Heart disease Surgical History History of cardiac catheterization History of ERCP History of hysterectomy Hx of dilation and curettage Hx of toe surgery S/P laparoscopic cholecystectomy Social History housing: residential Smoking Status: Never smoker alcohol intake: never substance use type: does not use ROS ROS ED Constitutional Constitutional ED: Denies chills or fever(s) Eyes Eyes: Denies change in vision ENT ENT ED: Denies sore throat Cardiovascular Cardiovascular: Denies chest pain Respiratory/Chest Respiratory/Chest: Denies cough or dyspnea Gastrointestinal Gastrointestinal: Denies abdominal pain, diarrhea, nausea or vomiting Genitourinary Genitourinary ED: Denies dysuria Musculoskeletal Musculoskeletal: Denies myalgias Integumentary Reports other Details: Positive redness in left thigh ; Denies rash Neurologic Neurologic: Denies headache(s) Hematologic/Lymphatic Hematologic/Lymphatic: Reports easy bleeding and easy bruising EXAM Physical Exam Const Vital Signs: 09/09/22 21:47 09/09/22 21:47 09/09/22 21:52 Temperature 99.2 F H Temperature Source Temporal Pulse Rate 73 Respiratory Rate 19 H Respiratory Effort Normal Non-Labored Respiratory Pattern Normal Blood Pressure 117/55 L Blood Pressure Mean 75 Pulse Ox 89 96 Oxygen Delivery Method Room Air Nasal Cannula Oxygen Flow Rate (L/min) 2 09/09/22 23:53 09/10/22 01:00 09/10/22 02:09 Temperature Temperature Source Pulse Rate 70 69 69 Respiratory Rate 18 14 16 Respiratory Effort Respiratory Pattern Blood Pressure 102/54 L 117/74 Blood Pressure Mean 70 Pulse Ox 94 96 Oxygen Delivery Method Nasal Cannula Oxygen Flow Rate (L/min) 3 Positive well nourished, well developed and obese General Appearance ED: well developed Nutritional Appearance: obese HEENT Reports moist mucous membranes Eyes PERRL and EOMs intact bilaterally Neck supple Neck Narrative: No nuchal rigidity or meningeal signs noted Resp normal respiratory effort Resp Narrative: Breath sounds are diminished throughout but overall clear to auscultation with no signs of distress Cardio regular rate and regular rhythm Rate: other Other Details: Radial pulses are plus 2 out of 4 bilaterally are equal and symmetric GI normal to inspection, nondistended, normoactive bowel sounds, non-tender, non-distended and no masses GI Narrative: No voluntary guarding or rigidity no pulsatile mass Auscultation: normoactive bowel sounds Palpation: soft Extremity Extremity Narrative: Patient has asymmetric erythema and warmth to the medial and posterior aspect of the left proximal third of the thigh. It is not circumferential there is no obvious abscess formation noted and there is no lymphangitic streaking. No crepitance palpated either Neuro oriented x3 and CN's II-XII intact bilaterally Sensorium / Orientation: alert Psych mental status grossly normal Skin Skin Narrative: Soft tissue changes to the left thigh consistent with cellulitis MDM MDM MDM Narrative Medical decision making narrative: Patient presented to the ER in no acute distress. She is easily arousable and afebrile. It would be expected for her to have opioids based on her prescribed medication of MS Contin and Percocet. As she states that she does not have family or friends who come to see her in the residential and that her medication was given to her by the nurses I do not see outpatient could overdose or get an illicit substance within her system. Still as patient was reportedly obtunded and nursing was concerned for this a repeat work-up will be obtained. The patient's white count is elevated at 16.6 but otherwise there are no clinically significant findings. Patient does not have acute alcohol intoxication and her urine tox screen is only positive for opioids. As this toxin was taken shortly after the residential 1 I do feel that there other positive test were cross-contamination from her daily medications and not truly in her system. She does have cellulitis which would account for the elevated white blood cell count. However there is no signs of necrotizing fasciitis or Jolie's gangrene. She did not have signs of septicemia and therefore did not feel she warranted IV antibiotics and admission at this time. Patient be placed on clindamycin secondary to the cellulitis and understands to return to the hospital if the symptoms worsen or she has further concerns. Lab Data Attestation: I reviewed the patient's lab results. Labs: Laboratory Results - last 24 hr 09/09/22 09/09/22 09/09/22 22:30 22:30 22:30 WBC 16.6 H RBC 3.91 L Hgb 12.1 Hct 35.5 L MCV 90.8 MCH 30.9 MCHC 34.1 RDW Std Deviation 46.4 H RDW Coeff of Melissa 13.9 Plt Count 156 MPV 9.6 Immature Gran % (Auto) 0.500 Neut % (Auto) 85.9 H Lymph % (Auto) 6.4 L [place] % (Auto) 6.9 Eos % (Auto) 0.1 Baso % (Auto) 0.2 Absolute Neuts (auto) 14.2 H Absolute Lymphs (auto) 1.06 Nucleated RBC % 0 Sodium 138 Potassium 4.9 Chloride 104 Carbon Dioxide 28.0 Anion Gap 6 BUN 24 H Creatinine 1.13 H Estim Creat Clear Calc 31.37 Est GFR (MDRD) Af Amer 60 Est GFR (MDRD) Non-Af 50 L BUN/Creatinine Ratio 21.2 H Glucose 122 H Calcium 8.8 Salicylates < 1.7 L Urine Opiates Screen Urine Methadone Screen Acetaminophen < 2.0 L Ur Barbiturates Screen Ur Phencyclidine Scrn Ur Amphetamines Screen MDMA (Ecstasy) Screen U Benzodiazepines Scrn Urine Cocaine Screen U Cannabinoids Screen Ur Drug Screen Comment Ethyl Alcohol < 3.0 09/09/22 22:50 WBC RBC Hgb Hct MCV MCH MCHC RDW Std Deviation RDW Coeff of Melissa Plt Count MPV Immature Gran % (Auto) Neut % (Auto) Lymph % (Auto) [place] % (Auto) Eos % (Auto) Baso % (Auto) Absolute Neuts (auto) Absolute Lymphs (auto) Nucleated RBC % Sodium Potassium Chloride Carbon Dioxide Anion Gap BUN Creatinine Estim Creat Clear Calc Est GFR (MDRD) Af Amer Est GFR (MDRD) Non-Af BUN/Creatinine Ratio Glucose Calcium Salicylates Urine Opiates Screen POSITIVE H Urine Methadone Screen NEGATIVE Acetaminophen Ur Barbiturates Screen NEGATIVE Ur Phencyclidine Scrn NEGATIVE Ur Amphetamines Screen NEGATIVE MDMA (Ecstasy) Screen NEGATIVE U Benzodiazepines Scrn NEGATIVE Urine Cocaine Screen NEGATIVE U Cannabinoids Screen NEGATIVE Ur Drug Screen Comment Ethyl Alcohol Discharge Plan Triage Chief Complaint: General Illness ED Provider: Cam Pineda Dx/Rx/DC Orders Clinical Impression: Cellulitis of left thigh, Type 2 diabetes mellitus with diabetic polyneuropathy, Hammertoe of left foot, Current use of group home anticoagulation Instructions: Cellulitis Dc Prescriptions: New clindamycin HCl 300 mg capsule 300 mg PO 4X/DAY 10 Days Qty: 40 0RF No Action fluticasone propionate 1 SPRAY spray,suspension 1 spray NASAL QHS furosemide 80 MG tablet 40 mg PO DAILY diltiazem HCl 360 mg Capsule,Extended Release 24 Hr 360 mg PO DAILY ferrous sulfate [iron] 325 mg (65 mg iron) Tablet 325 mg PO BID omeprazole 40 mg Capsule,Delayed Release(Dr/Ec) 40 mg PO DAILY spironolactone 50 mg Tablet 50 mg PO DAILY multivitamin Tablet 1 tab PO DAILY acetaminophen 325 mg Tablet 650 mg PO Q4H PRN (Reason: Pain) bisacodyl 10 mg Suppository 10 mg MT DAILY PRN (Reason: Constipation) budesonide 0.5 mg/2 mL Suspension For Nebulization 0.5 mg INHALATION BID oxybutynin chloride 5 mg Tablet 5 mg PO QHS methenamine hippurate 1 gram tablet 0.5 g PO BID venlafaxine 75 mg capsule,extended release 24hr 75 mg PO DAILY oxybutynin chloride 15 mg tablet extended release 24hr 15 mg PO DAILY potassium chloride 20 mEq tablet,ER particles/crystals 20 meq PO BID metformin 500 mg Tablet Extended Release 24 Hr 1,500 mg PO DAILY insulin glargine [Basaglar KwikPen U-100 Insulin] 100 unit/mL (3 mL) insulin pen 8 unit SUBCUT DAILY Xarelto 15 mg Tablet 15 mg PO DINNER 30 Days Qty: 0 0RF morphine 30 mg tablet extended release 30 mg PO BID 3 Days Qty: 6 0RF oxycodone-acetaminophen 5-325 mg tablet 1 tab PO Q12H PRN (Reason: Pain) 3 Days Qty: 6 0RF pregabalin 150 mg capsule 150 mg PO BID 3 Days Qty: 6 0RF atorvastatin [Lipitor] 10 mg Tablet 10 mg PO QHS meclizine 25 mg Tablet 25 mg PO TID PRN (Reason: Vertigo) pramipexole [Mirapex] 0.25 mg Tablet 0.25 mg PO QHS modafinil 200 mg tablet 150 mg PO DAILY Primary Care Provider: Efren Argueta Referrals: Efren Argueta DO [Primary Care Provider] - Activity Restrictions/Additional Instructions: The patient's toxicology screen in the ER was only positive for opioids which she is prescribed. This indicates that the screen done at the residential was most likely cross reacted with her other medications. She does have cellulitis to her left leg but does not have changes to suggest systemic infection and therefore can take oral antibiotics for this. If symptoms worsen or you have any further concerns please return to the hospital for repeat evaluation Disposition Disposition: Home, Self Care Discharge Date/Time: 09/10/22 03:10
[2022-09-10 02:09] VITALS: BP 117/74; PULSE 69; RESP 16; O2SAT 96
--- NOTE | 2022-09-10 02:12 | ED.RN ---
NURSE TO NURSE REPORT CALLED TO ANDREW AT [facility]
== END 2022-09-10 03:10 | disposition home or self-care (01) ==
PROVIDERS: Emergency Provider Emergency Medicine; PCP Family Medicine; Visit Provider Emergency Medicine
DX: L03.116 Cellulitis of left lower limb (principal); J44.9 Chronic obstructive pulmonary disease, unspecified; E11.42 Type 2 diabetes mellitus with diabetic polyneuropathy; M20.42 Other hammer toe(s) (acquired), left foot; I10 Essential (primary) hypertension; Z79.01 Long term (current) use of anticoagulants; E78.5 Hyperlipidemia, unspecified; E66.9 Obesity, unspecified; Z79.899 Other long term (current) drug therapy
CPT/HCPCS: 80048; 80307; 80329; 82077; 85025; 96365; 99284; A4216; G0480

== ENCOUNTER → 2022-09-18 | Outpatient (REF) | payer MEDICARE, MEDICAID, SELFPAY ==
[2022-09-18 09:00] LABS: Absolute Lymphocyte Count 1.77 X10^3/uL (0.83-4.51); Basophil# 0.05 X10^3/uL; Basophil% 0.8 % (0-1); Eosinophil# 0.18 X10^3/uL; Eosinophils% 2.7 % (0-5); Hematocrit 33.4 % (37-47); Hemoglobin 10.9 g/dL (12.0-15.0); Lymphocyte # 1.77 X10^3/ul (0.83-4.51); Mean Corp Hgb Conc 32.6 g/dL (32-36); Mean Corpuscular Hgb 30.4 pg (27.0-32.0); Mean Corpuscular Volume 93.3 fL (81-99); Mean Platelet Vol. 9.9 fl (6.2-12.0); Monocyte# 0.57 X10^3/uL; Monocyte% 8.7 % (0-10); NRBC Flagged by Analyzer 0 % (0-5); Neutrophil # 3.97 X10^3/uL (2.7-7.7); Neutrophil % 60.6 % (47-70); Platelet Count 177 K/mm3 (150-450); RBC Distribution Width CV 14.1 % (11.6-14.6); RBC Distribution Width SD 47.9 fl (35.1-43.9); Red Blood Count 3.58 M/mm3 (4.2-5.4); White Blood Count 6.6 K/mm3 (4.4-11.0)
[2022-09-18 09:08] LABS: Anion Gap 7 (5-15); BUN 24 mg/dL (7-18); BUN/Creat Ratio 26.3 RATIO (10-20); Calcium,Total 8.8 mg/dL (8.5-10.1); Chloride 103 mmol/L (98-107); Creatinine, Serum 0.91 mg/dL (0.55-1.02); EST Glomerular Filtration Rate 64 mL/min (>60); Est Glom Filt Rate - Afr Amer 77 mL/min (>60); Glucose 97 mg/dL (74-106); Potassium 4.2 mmol/L (3.5-5.1); Sodium Level 140 mmol/L (136-145)
== END ==
LOC: OLS.SW 05:00
PROVIDERS: PCP Family Medicine; Visit Provider Internal Medicine
DX: E11.9 Type 2 diabetes mellitus without complications (principal); I10 Essential (primary) hypertension
CPT/HCPCS: 36415; 80048; 83735; 85025

== ENCOUNTER 2022-09-22 13:12 | Inpatient (IN) | payer MEDICARE, MEDICAID, SELFPAY ==
[2022-09-22] VITALS (21 sets, daily range): BP systolic 103–146; BP diastolic 50–113; PULSE 63–121; RESP 13–30; TEMP 3.8–39.8; O2SAT 15–100; BMI 51.6
--- NOTE | 2022-09-22 13:23 | RAD_ITS ---
EXAM: XR CHEST, 1 VIEW CLINICAL INDICATION: CAD TECHNIQUE: Frontal view of the chest. This report was created using [employer] report generation technology. COMPARISON: 09/09/2021. FINDINGS: LUNGS AND PLEURAL SPACES: Suspicious ill-defined interstitial infiltrates in the right lung base. No pneumothorax. No effusion. HEART: Unremarkable. Cardiac silhouette not enlarged. MEDIASTINUM: Central airways and mediastinal contour are unremarkable. BONES/JOINTS: Unremarkable. SOFT TISSUES: Unremarkable. RAD/Chest 1 View (Portable) IMPRESSION: 1. Suspicious interstitial pneumonitis in the right lung base. HRCT chest will help confirm/clarify if clinically warranted. 2. No other additional findings or changes when compared to 09/09/2021. Electronically Signed: Wilton Osorio MD at 15:18 EST ,
--- NOTE | 2022-09-22 13:23 | CT_ITS ---
INDICATION: mental status change EXAMINATION: CT BRAIN - CT Head or Brain W/O Contrast Injection TECHNIQUE: Multiple axial images were obtained of the head without intravenous contrast. A radiation dose optimization technique was used for this scan. IV Contrast dosage and agent: None. COMPARISON: 09/09/2021 FINDINGS: BRAIN PARENCHYMA: No intra- or extra-axial hemorrhage. No evidence of acute infarct. No intracranial mass or mass effect. Posterior fossa structures are unremarkable. Stable volume loss with low attenuation of the periventricular white matter typical of chronic small vessel disease. CSF SPACES: Appropriate for age. No hydrocephalus. Basal cisterns are patent. CALVARIUM, SKULL BASE, PARANASAL SINUSES AND MASTOID AIR CELLS: Clear. No discrete lytic or blastic abnormalities. CT/Brain/Head without Contrast IMPRESSION: Volume loss with chronic white matter changes. No acute intracranial findings. Electronically Signed: Elvin Pearce MD at 17:37 EST ,
--- NOTE | 2022-09-22 13:24 | EKG12_ITS ---
Test Reason : AMS Blood Pressure : / mmHG Vent. Rate : 117 BPM Atrial Rate : 117 BPM P-R Int : 190 ms QRS Dur : 094 ms QT Int : 310 ms P-R-T Axes : 064 055 064 degrees QTc Int : 432 ms Somatic/Motion Artifact Sinus tachycardia Incomplete right bundle branch block Nonspecific ST and T wave abnormality Abnormal ECG Confirmed by RANDALL SNYDER, MARIAM ([id number]), news videotape editor AMIRA SOLITARIO ([id number]) on 09/25/2022 9:10:26 AM Referred By: Confirmed By:MARIAM PEREIRA MD
--- NOTE | 2022-09-22 13:25 | EX.ED.DYSGE1 ---
HPI History of Present Illness Chief Complaint: Mental Status Change Narrative Narrative: 72-year-old female at [facility] presents with reported mental status change. According to EMS, they were called out because the patient was unresponsive. She received Narcan, and now is intermittently awake, flopping on the bed. History and physical is limited secondary to patient condition. According to the EMR she has past medical history of diabetes and diabetic foot infection. [facility] Medical History Anemia Anxiety and depression Arthritis Asthma Back pain Benign hypertension Bilateral lower extremity edema BiPAP (biphasic positive airway pressure) dependence Cholelithiasis Chronic acquired lymphedema Chronic back pain Chronic malnutrition Chronic stasis dermatitis of left lower extremity COPD (chronic obstructive pulmonary disease) Decreased pedal pulses Depression Diabetic ulcer of left foot Diabetic ulcer of right foot Diabetic ulcer of toe of left foot DVT (deep venous thrombosis) Elephantiasis Hammertoe of left foot High cholesterol History of edema History of kidney stones History of pain when walking History of stress test HLD (hyperlipidemia) Hoarseness Hypertension Increased BMI Insulin dependent diabetes mellitus Leg cramps Localized edema MRSA infection Nonhealing ulcer of left lower extremity with fat layer exposed Nonhealing ulcer of right lower extremity with fat layer exposed correction resident On home oxygen therapy RILEY (obstructive sleep apnea) PAF (paroxysmal atrial fibrillation) Peripheral neuropathy Renal lithiasis Rheumatic fever RLS (restless legs syndrome) Seasonal allergies Shortness of breath on exertion Type 2 diabetes mellitus Type 2 diabetes mellitus with diabetic polyneuropathy Ulcer of left foot with fat layer exposed Ulcer of right foot with fat layer exposed Venous insufficiency Venous stasis ulcer of right thigh with fat layer exposed Venous ulcer of left lower extremity with varicose veins Venous ulcer of right lower extremity with varicose veins Home Medications fluticasone propionate 50 mcg/actuation nasal spray,suspension 1 spray QHS allergies 02/16/14 [History Last Taken 05/24/22] furosemide 80 mg tablet 40 mg PO DAILY EDEMA 05/07/19 [History Last Taken 05/25/22] acetaminophen 325 mg tablet 650 mg PO Q4H PRN Pain 09/09/21 [History Last Taken 05/23/22] bisacodyl 10 mg rectal suppository 10 mg MD DAILY PRN Constipation 09/09/21 [History Last Taken Unknown] budesonide 0.5 mg/2 mL suspension for nebulization 0.5 mg inhalation BID sob 09/09/21 [History Last Taken Unknown] diltiazem HCl 360 mg capsule,24 hr,extended release 360 mg PO DAILY 09/09/21 [History Last Taken 05/25/22] ferrous sulfate 325 mg (65 mg iron) tablet (iron) 325 mg PO BID supplement 09/09/21 [History Last Taken 05/25/22] multivitamin 1 tab PO DAILY supplement 09/09/21 [History Last Taken 05/25/22] omeprazole 40 mg capsule,delayed release 40 mg PO DAILY gerd 09/09/21 [History Last Taken 05/25/22] oxybutynin chloride 5 mg tablet 5 mg PO QHS bladder spasms 09/09/21 [History Last Taken 05/24/22] spironolactone 50 mg tablet 50 mg PO DAILY 09/09/21 [History Last Taken 05/25/22] methenamine hippurate 1 gram tablet 0.5 g PO BID 12/18/21 [History Last Taken 05/25/22] insulin glargine 100 unit/mL (3 mL) subcutaneous pen (Basaglar KwikPen U-100 Insulin) 8 unit subcut DAILY diabetes 05/25/22 [History Last Taken 05/25/22] metformin 500 mg tablet,extended release 24 hr 1,500 mg PO DAILY DIABETES 05/25/22 [History Last Taken 05/25/22] oxybutynin chloride 15 mg tablet,extended release 24 hr 15 mg PO DAILY BLADDER SPASMS 05/25/22 [History Last Taken 05/25/22] potassium chloride 20 mEq tablet,extended release(part/cryst) 20 meq PO BID SUPPLEMENT 05/25/22 [History Last Taken 05/25/22] venlafaxine 75 mg capsule,extended release 24 hr 75 mg PO DAILY 05/25/22 [History Last Taken 05/25/22] morphine 30 mg tablet,extended release 30 mg PO BID PAIN 3 days #6 tabs 05/28/22 [Rx Last Taken Unknown] oxycodone-acetaminophen 5 mg-325 mg tablet 1 tab PO Q12H PRN Pain 3 days #6 tabs 05/28/22 [Rx Last Taken Unknown] pregabalin 150 mg capsule 150 mg PO BID PAIN 3 days #6 caps 05/28/22 [Rx Last Taken Unknown] rivaroxaban 15 mg tablet (Xarelto) 15 mg PO DINNER 30 days #0 tabs 05/28/22 [Rx Last Taken Unknown] atorvastatin 10 mg tablet (Lipitor) 10 mg PO QHS 09/09/22 [History Last Taken Unknown] meclizine 25 mg tablet 25 mg PO TID PRN Vertigo 09/09/22 [History Last Taken Unknown] modafinil 200 mg tablet 150 mg PO DAILY 09/09/22 [History Last Taken Unknown] pramipexole 0.25 mg tablet (Mirapex) 0.25 mg PO QHS 09/09/22 [History Last Taken Unknown] clindamycin HCl 300 mg capsule 300 mg PO 4X/DAY 10 days #40 caps 09/10/22 [Rx Last Taken Unknown] Allergy/AdvReac Type Severity Reaction Status Date / Time aspirin Allergy Hives Verified 05/25/22 14:13 latex Allergy Rash Verified 05/25/22 14:13 Penicillins Allergy Hives Verified 05/25/22 14:13 Sulfa (Sulfonamide Allergy Hives Verified 05/25/22 14:13 Antibiotics) Family History Mother Heart disease Father Heart disease Surgical History History of cardiac catheterization History of ERCP History of hysterectomy Hx of dilation and curettage Hx of toe surgery S/P laparoscopic cholecystectomy Social History housing: senior living Smoking Status: Never smoker alcohol intake: never substance use type: does not use ROS ROS ED ROS Narrative Unable to obtain review of systems from patient secondary to current mental status. Review of Systems ROS Unobtainable: due to mental status EXAM Physical Exam Narrative Exam Narrative: Afebrile. Vital signs noted. HEENT: Normocephalic. Atraumatic. PERRL, EOMI. Neck soft and supple. No point tenderness or step off. Dry mucous membranes. Cardiovascular: Positive tachycardia. No murmurs, rubs, or gallops appreciated. Respiratory: No tachypnea. Lungs clear to auscultation bilaterally decreased breath sounds anteriorly. Gastrointestinal: Abdomen soft, nontender, with normoactive bowel sounds. No rebound or guarding. Neurological: Intermittently awake. Will open eyes and put arms above her head, covering her face with her gown, moving her lower extremities. Intermittently alert. Nonfocal, nonlateralizing. Skin: No rash. Positive erythema of left lower extremity. No pallor. Musculoskeletal: No pedal edema. Full range of motion extremities. Const Vital Signs: 09/22/22 13:13 09/22/22 13:28 09/22/22 14:22 Temperature 102.7 F H 103.5 F H 39.8 F L Temperature Source Core Core Core Pulse Rate 121 H 111 H 111 H Respiratory Rate 30 H 30 H 24 H Blood Pressure 144/105 H 132/89 H 134/52 H Blood Pressure Mean 118 103 79 Pulse Ox 98 87 Oxygen Delivery Method Room Air Room Air Oxygen Flow Rate (L/min) 09/22/22 14:46 09/22/22 15:01 Temperature 103.1 F H Temperature Source Core Pulse Rate 104 H Respiratory Rate 20 H Blood Pressure 146/58 H Blood Pressure Mean 87 Pulse Ox 93 94 Oxygen Delivery Method Nasal Cannula Nasal Cannula Oxygen Flow Rate (L/min) 2 2 Sepsis Attestation Sepsis Alert: Yes Sepsis Attestation: Agree w/Sepsis Date exam was performed: 09/22/22 Time exam was performed: 14:15 Possible Source of Sepsis: Pulmonary and Skin/soft tissue Sepsis Organ Dysfunction Criteria Present: Lactic Acid > 2 mmol/L and New/Unexplained change in mental status Fluid Resuscitation Fluid resuscitation indicated?: Yes Fluid Resuscitation ordered: Lesser volume fluid bolus ordered Reason for lesser fluid bolus:: Other (2 L given, lactic acid elevated at 3.5, but not hypotensive.) Sepsis Note Date exam was performed: 09/22/22 Time exam was performed: 15:57 Sepsis Attestation: Sepsis re-evaluation was performed MDM MDM MDM Narrative Medical decision making narrative: I am unsure to the cause of her mental status change. Comprehensive work-up was pursued. Patient appears agitated per RN, and initially would not sit still for EKG. I reviewed her laboratory work. She has an elevated white count of 27.1 with hemoglobin normal at 12.5, platelet count normal at 192. Neutrophil percentage is high at 92%. Her CMP shows a BUN slightly elevated at 24 with creatinine 1.09, glucose appropriately elevated at 130 with a normal anion gap of 9. Ammonia level slightly elevated at 33, but I do not think this is high enough to cause her mental status change. She has an AST low at 14 and an ALT also low at 12. Urine drug screen is positive for opiates. Additionally, lactic acid was added because of her elevated white count and tachycardia and is elevated at 3.5. She will be given 2 L of IV fluids intravenously. I do not feel that 30 L/kg is indicated as she is not hypotensive, nor is her lactic acid greater than 4. Blood cultures and urine cultures were obtained. Her urinalysis while low for white cells does show positive nitrites and 3+ bacteria. According to the RN, patient became hypoxic in the 80s so she was placed on 2 L nasal cannula, she had been satting well on room air. She was unable to sit still for the CT scan. We do feel that she is meeting sepsis criteria with her elevated white count of 27.1, her tachycardia, and fever as high as 103.1 degrees here in the emergency department. She was given rectal Tylenol. I did obtain an ABG to look for CO2 retention, she has a normal pH of 7.4, PCO2 of 37.8, and PO2 of 70. She will be started on antibiotics in the form of meropenem given her allergy to penicillins of hives, and vancomycin, the maximum dose of 2 g intravenously. Upon repeat examination at approximately 1520, she is more awake, and will respond to her name and to appropriate questions. I do not feel lumbar puncture is indicated. My interpretation of her chest x-ray shows possible pneumonia in the right lung base, and given her reported hypoxia per RN, and fever, I do feel that this may be a potential source of her sepsis. Additionally with her urinalysis having 3+ bacteria and positive nitrates this could also be another source, along with her left leg erythema. At this point in time, patient will be discussed with the hospitalist for admission. I interpreted her EKG which demonstrates normal sinus rhythm/tachycardia with PVCs at [address] changes. No STEMI. I discussed the patient with Dr. Herrera. Given her mental status change, and sepsis, it was felt that ICU would be preferable for admission. Patient is in guarded but stable condition. Lab Data Attestation: I reviewed the patient's lab results. Labs: Laboratory Results - last 24 hr 09/22/22 09/22/22 09/22/22 13:30 13:30 13:30 WBC 27.1 H RBC 4.03 L Hgb 12.5 Hct 37.4 MCV 92.8 MCH 31.0 MCHC 33.4 RDW Std Deviation 48.5 H RDW Coeff of Melissa 14.2 Plt Count 192 MPV 10.1 Immature Gran % (Auto) 1.300 H Neut % (Auto) 92.0 H Lymph % (Auto) 2.0 L [place] % (Auto) 4.4 Eos % (Auto) 0.0 Baso % (Auto) 0.3 Absolute Neuts (auto) 24.9 H Absolute Lymphs (auto) 0.55 L Nucleated RBC % 0 Platelet Estimate ADEQUATE RBC Morphology NORM C+C Sodium 139 Potassium 4.1 Chloride 105 Carbon Dioxide 25.0 Anion Gap 9 BUN 24 H Creatinine 1.09 H Estim Creat Clear Calc 32.52 Est GFR (MDRD) Af Amer 63 Est GFR (MDRD) Non-Af 52 L BUN/Creatinine Ratio 22.0 H Glucose 130 H Lactic Acid Calcium 9.2 Total Bilirubin 0.50 AST 14 L ALT 12 L Alkaline Phosphatase 106 Ammonia 33.0 H Total Protein 7.2 Albumin 3.2 Globulin 4.0 Albumin/Globulin Ratio 0.8 L Urine Color Urine Clarity Urine pH Ur Specific [place] Urine Protein Urine Glucose (UA) Urine Ketones Urine Occult Blood Urine Nitrite Urine Bilirubin Urine Urobilinogen Ur Leukocyte Esterase Urine RBC Urine WBC Ur Squamous Epith Cells Urine Bacteria Urine Mucus Urine Opiates Screen Urine Methadone Screen Ur Barbiturates Screen Ur Phencyclidine Scrn Ur Amphetamines Screen MDMA (Ecstasy) Screen U Benzodiazepines Scrn Urine Cocaine Screen U Cannabinoids Screen Ur Drug Screen Comment POC Glucose 09/22/22 09/22/22 09/22/22 13:30 13:40 14:15 WBC RBC Hgb Hct MCV MCH MCHC RDW Std Deviation RDW Coeff of Melissa Plt Count MPV Immature Gran % (Auto) Neut % (Auto) Lymph % (Auto) [place] % (Auto) Eos % (Auto) Baso % (Auto) Absolute Neuts (auto) Absolute Lymphs (auto) Nucleated RBC % Platelet Estimate RBC Morphology Sodium Potassium Chloride Carbon Dioxide Anion Gap BUN Creatinine Estim Creat Clear Calc Est GFR (MDRD) Af Amer Est GFR (MDRD) Non-Af BUN/Creatinine Ratio Glucose Lactic Acid 3.5 H* Calcium Total Bilirubin AST ALT Alkaline Phosphatase Ammonia Total Protein Albumin Globulin Albumin/Globulin Ratio Urine Color Urine Clarity Urine pH Ur Specific [place] Urine Protein Urine Glucose (UA) Urine Ketones Urine Occult Blood Urine Nitrite Urine Bilirubin Urine Urobilinogen Ur Leukocyte Esterase Urine RBC Urine WBC Ur Squamous Epith Cells Urine Bacteria Urine Mucus Urine Opiates Screen POSITIVE H Urine Methadone Screen NEGATIVE Ur Barbiturates Screen NEGATIVE Ur Phencyclidine Scrn NEGATIVE Ur Amphetamines Screen NEGATIVE MDMA (Ecstasy) Screen NEGATIVE U Benzodiazepines Scrn NEGATIVE Urine Cocaine Screen NEGATIVE U Cannabinoids Screen NEGATIVE Ur Drug Screen Comment POC Glucose 134 H 09/22/22 14:15 WBC RBC Hgb Hct MCV MCH MCHC RDW Std Deviation RDW Coeff of Melissa Plt Count MPV Immature Gran % (Auto) Neut % (Auto) Lymph % (Auto) [place] % (Auto) Eos % (Auto) Baso % (Auto) Absolute Neuts (auto) Absolute Lymphs (auto) Nucleated RBC % Platelet Estimate RBC Morphology Sodium Potassium Chloride Carbon Dioxide Anion Gap BUN Creatinine Estim Creat Clear Calc Est GFR (MDRD) Af Amer Est GFR (MDRD) Non-Af BUN/Creatinine Ratio Glucose Lactic Acid Calcium Total Bilirubin AST ALT Alkaline Phosphatase Ammonia Total Protein Albumin Globulin Albumin/Globulin Ratio Urine Color Straw Urine Clarity Clear Urine pH 6.0 Ur Specific [place] 1.015 Urine Protein Negative Urine Glucose (UA) Normal Urine Ketones Negative Urine Occult Blood Negative Urine Nitrite Positive H Urine Bilirubin Negative Urine Urobilinogen Normal Ur Leukocyte Esterase Negative Urine RBC 0-5 SEEN Urine WBC 5-10 SEEN Ur Squamous Epith Cells 0 SEEN Urine Bacteria 3+ Urine Mucus 0 SEEN Urine Opiates Screen Urine Methadone Screen Ur Barbiturates Screen Ur Phencyclidine Scrn Ur Amphetamines Screen MDMA (Ecstasy) Screen U Benzodiazepines Scrn Urine Cocaine Screen U Cannabinoids Screen Ur Drug Screen Comment POC Glucose ABG Data ABG results: ABG 09/22/22 15:00 Specimen Type ART Sample Site R Radial pH 7.44 Bicarbonate Actual 25.4 Total CO2 27 Base Excess 1 O2 Saturation 95 ABG pCO2 37.8 ABG pO2 71 L Mike Test Positive O2 Delivery Device Cannula Liter Flow 2.0 Radiography Diagnostic Testing: Clinical Impression(s) from Imaging Studies Chest X-Ray 09/22/22 13:23 IMPRESSION: 1. Suspicious interstitial pneumonitis in the right lung base. HRCT chest will help confirm/clarify if clinically warranted. 2. No other additional findings or changes when compared to 09/09/2021. Electronically Signed: Wilton Osorio MD at 15:18 EST , Critical Care Time Critical Care Time: Yes Critical care time (excluding procedures): 30-74 minutes (33 minutes), Including time spent:, Discussing w/Patient &/or Family/Coupon Clerk, Discussing w/Consultants, Arranging Admission or Transfer and Performing Direct Patient Care at Bedside Discharge Plan Triage Chief Complaint: Mental Status Change ED Provider: Wilton Keith Dx/Rx/DC Orders Prescriptions: No Action fluticasone propionate 1 SPRAY spray,suspension 1 spray NASAL QHS furosemide 80 MG tablet 40 mg PO DAILY diltiazem HCl 360 mg Capsule,Extended Release 24 Hr 360 mg PO DAILY ferrous sulfate [iron] 325 mg (65 mg iron) Tablet 325 mg PO BID omeprazole 40 mg Capsule,Delayed Release(Dr/Ec) 40 mg PO DAILY spironolactone 50 mg Tablet 50 mg PO DAILY multivitamin Tablet 1 tab PO DAILY acetaminophen 325 mg Tablet 650 mg PO Q4H PRN (Reason: Pain) bisacodyl 10 mg Suppository 10 mg MD DAILY PRN (Reason: Constipation) budesonide 0.5 mg/2 mL Suspension For Nebulization 0.5 mg INHALATION BID oxybutynin chloride 5 mg Tablet 5 mg PO QHS methenamine hippurate 1 gram tablet 0.5 g PO BID venlafaxine 75 mg capsule,extended release 24hr 75 mg PO DAILY oxybutynin chloride 15 mg tablet extended release 24hr 15 mg PO DAILY potassium chloride 20 mEq tablet,ER particles/crystals 20 meq PO BID metformin 500 mg Tablet Extended Release 24 Hr 1,500 mg PO DAILY insulin glargine [Basaglar KwikPen U-100 Insulin] 100 unit/mL (3 mL) insulin pen 8 unit SUBCUT DAILY Xarelto 15 mg Tablet 15 mg PO DINNER 30 Days Qty: 0 0RF morphine 30 mg tablet extended release 30 mg PO BID 3 Days Qty: 6 0RF oxycodone-acetaminophen 5-325 mg tablet 1 tab PO Q12H PRN (Reason: Pain) 3 Days Qty: 6 0RF pregabalin 150 mg capsule 150 mg PO BID 3 Days Qty: 6 0RF atorvastatin [Lipitor] 10 mg Tablet 10 mg PO QHS meclizine 25 mg Tablet 25 mg PO TID PRN (Reason: Vertigo) pramipexole [Mirapex] 0.25 mg Tablet 0.25 mg PO QHS modafinil 200 mg tablet 150 mg PO DAILY clindamycin HCl 300 mg capsule 300 mg PO 4X/DAY 10 Days Qty: 40 0RF Primary Care Provider: Efren Argueta Referrals: Efren Argueta DO [Primary Care Provider] -
[2022-09-22] MEDS: 0.9% Normal Saline 1,000 ML 1000 ML IV (13:48)
[2022-09-22 13:49] LABS: Absolute Lymphocyte Count 0.55 X10^3/uL (0.83-4.51); Absolute Neutrophil Count 24.9 X10^3/uL (2.0-7.7); Basophil# 0.07 X10^3/uL; Basophil% 0.3 % (0-1); Eosinophil# 0.01 X10^3/uL; Hematocrit 37.4 % (37-47); Hemoglobin 12.5 g/dL (12.0-15.0); Lymphocyte # 0.55 X10^3/ul (0.83-4.51); Mean Corp Hgb Conc 33.4 g/dL (32-36); Mean Corpuscular Volume 92.8 fL (81-99); Mean Platelet Vol. 10.1 fl (6.2-12.0); Monocyte% 4.4 % (0-10); NRBC Flagged by Analyzer 0 % (0-5); POSITIVE DIFFERENTIAL YES; Platelet Count 192 K/mm3 (150-450); RBC Distribution Width CV 14.2 % (11.6-14.6); RBC Distribution Width SD 48.5 fl (35.1-43.9); Red Blood Count 4.03 M/mm3 (4.2-5.4); White Blood Count 27.1 K/mm3 (4.4-11.0)
[2022-09-22 13:51] LABS: Differential Indicated SCAN CRITERIA MET
[2022-09-22 14:00] LABS: Bedside Glucose 134 mg/dL (74-106)
[2022-09-22 14:05] LABS: ALB/GLOB Ratio 0.8 RATIO (0.9-2.4); AST(SGOT) 14 U/L (15-37); Alanine Aminotransfer ALT/SGPT 12 U/L (13-56); Albumin, Serum 3.2 g/dL (3.2-5.0); Alkaline Phosphatase 106 U/L (45-117); Anion Gap 9 (5-15); BUN 24 mg/dL (7-18); Calcium,Total 9.2 mg/dL (8.5-10.1); Chloride 105 mmol/L (98-107); Creatinine, Serum 1.09 mg/dL (0.55-1.02); EST Glomerular Filtration Rate 52 mL/min (>60); Est Glom Filt Rate - Afr Amer 63 mL/min (>60); Estimated Creatinine Clearance 32.52 ml/min; Glucose 130 mg/dL (74-106); Potassium 4.1 mmol/L (3.5-5.1); Protein, Total 7.2 g/dL (6.4-8.2); Sodium Level 139 mmol/L (136-145)
[2022-09-22 14:25] LABS: Mucous, Urine 0 SEEN /hpf (<or=2+); Squamous Epithelial Cells - UA 0 SEEN /hpf (5-10)
[2022-09-22 14:29] LABS: Color, Urine Straw (Yellow); Glucose, Dipstick Normal (Normal); Ketone-Dipstick Negative (Negative); Leukocyte Esterase-Dipstick Negative /ul (Negative); Nitrite-Dipstick Positive (Negative); Occult Blood-Urine Negative /ul (Negative); Protein-Dipstick Negative (Negative); Specific Gravity, Urine 1.015 (1.002-1.030); Urine Bilirubin Dipstick Negative (Negative); Urine Clarity Clear (Clear); Urine Urobilinogen Normal (Normal)
[2022-09-22 14:37] LABS: Platelet Estimate ADEQUATE (ADEQ); Red Cell Morphology NORM C+C NORMAL (NORM C&C)
[2022-09-22 14:40] LABS: Amphetamine Urine VISTA NEGATIVE (<1000 ng/mL); Bacteria 3+ /hpf (None Seen); Barbiturate Urine VISTA NEGATIVE (< 200 ng/mL); Benzodiazepine Urine VISTA NEGATIVE (< 200 ng/mL); Cocaine Urine VISTA NEGATIVE (< 300 ng/mL); Ecstacy Urine VISTA NEGATIVE (< 500 ng/mL); Methadone Urine VISTA NEGATIVE (< 300 ng/mL); PCP Urine VISTA NEGATIVE (< 25 ng/mL); Red Blood Cells-Urine 0-5 SEEN /hpf (0-5); THC Urine VISTA NEGATIVE (< 50 ng/mL); Vista UDS pH Range 6; White Blood Cells 5-10 SEEN /hpf (0-5)
[2022-09-22] MEDS: Acetaminophen 650 MG Suppository RC (14:40)
[2022-09-22 14:59] LABS: Lactic Acid 3.5 mmol/L (0.4-1.9)
[2022-09-22 15:06] LABS: Allen Test Positive; Base Excess 1 mmol/L (-2 to +2); Bicarbonate 25.4 mmol/L (22-26); Blood Gas Specimen Type ART; O2 Delivery Device Cannula; PO2 71 mmHG (75-100); SITE R Radial; SO2 95 % (95-99); Total Carbon Dioxide 27 mmol/L; pCO2 37.8 mmHg (35-45); pH 7.44 (7.35-7.45)
[2022-09-22] MEDS: 0.9% Normal Saline 1,000 ML 999 ML IV ×2 (15:08→15:11)
--- NOTE | 2022-09-22 16:36 | ED.RN ---
attempt to call [facility] to inform patients nurse she will be admitted to hospital. unable to reach anyone
[2022-09-22 16:38] LABS: International Normalized Ratio 1.2; Partial Thromboplast Time 32.9 Seconds (24.1-36.2); Prothrombin Time (Protime)PT. 15.1 SECONDS (11.7-14.9)
[2022-09-22 17:08] LABS: CPK Total, Creatine Kinase 50 U/L (26-192)
[2022-09-22] MEDS: Lactated Ringers 1,000 ML 999 ML IV ×2 (17:10→18:29)
--- NOTE | 2022-09-22 17:36 | VDLE_ITS ---
Reason For Study: Shortness of Breath RIGHT LEFT GSV is normal. GSV is normal. CFV is compressible, spontaneous, phasic, CFV is compressible, spontaneous, phasic, competent and demonstrates normal competent, and demonstrates normal augmentation. augmentation. FV is compressible, spontaneous, phasic, FV is compressible, spontaneous, phasic, competent and demonstrates normal competent and demonstrates normal augmentation. augmentation. POP V is compressible, spontaneous, phasic, POP V is compressible, spontaneous, phasic, competent and demonstrates normal competent and demonstrates normal augmentation. augmentation. T/P Trunk is compressible. T/P Trunk is compressible. PTV is compressible. PTV is compressible. RT PerV is compressible. LT PerV is compressible. Procedure This is a venous duplex using B-mode, color flow and spectral Doppler. Exam performed portable in ICU/CCU. The exam was diagnostic. The study was technically difficult. A preliminary report was called and/or faxed to ICU Nurse responsible for patient. VL/Venous Duplex US - Phil Extrem Interpretation Summary No evidence for acute deep venous thrombosis bilateral lower extremities with p atent and compressible bilateral great saphenous veins. Ordering Physician: Shayne Elder Referring Physician: Efren Argueta Performed By: Adrian Bailey RVT
[2022-09-22 18:05] LABS: Magnesium 1.7 mg/dL (1.6-2.6); Phosphorus 2.6 mg/dL (2.5-4.9)
[2022-09-22 18:36] LABS: Reflex Lactate? Y
[2022-09-22 18:45] LABS: Bedside Glucose 117 mg/dL (74-106)
[2022-09-22 19:47] LABS: Lactic Acid 2.1 mmol/L (0.4-1.9)
--- NOTE | 2022-09-22 20:23 | HP.PCM.HOS_ITS ---
HPI - General General Date of Admission: 09/22/22 Date of Service: 09/22/22 Chief Complaint: Unresponsiveness brought by ambulance, high fever, cellulitis HPI Narrative SANDY ORONA, is a 72 F Was brought from [facility] to ED for unresponsiveness/altered mental status and high fever temperature 104.5 by EMS. EMS gave Narcan and patient on opioid but she did not get better. Patient recorded to have high fever Tmax 103.5 Fahrenheit, tachycardic, tachypneic respiratory 24 to 30/min and mild hypoxia 87% on room air. Patient open eyes on sternal rub but not coherent to answer questions of history. I further call next to kin her sister Mrs. Donaldson and she also does not know recent illness like dysuria cough, a UTI or pneumonia like symptoms. She has history of recurrent cellulitis and was last admitted in April 2022. Her left lower extremity is red and hot. In ED, patient found to have leukocytosis with polymorphs predominant, lactic acid 3.5. BP has been in normal range. Patient given IV fluid as per sepsis protocol and vancomycin and called for admission. Patient undergoing second liter of IV fluid normal saline bolus. I talked to patient's nurse in [facility], Christel when she said patient was well until 1 hour prior to arrival of EMS when she had a fever. She did her normal usual state of, working on computers yesterday. She woke up fine in the morning and had her breakfast. Denies any recent burning micturition/pneumonialike symptoms. She was here in ED on 09/10/2022 for melly lulitis of left thigh and was sent back on clindamycin 300 mg 4 times a day for 10 days. [facility] Medical History Anemia Anxiety and depression Arthritis Asthma Back pain Benign hypertension Bilateral lower extremity edema BiPAP (biphasic positive airway pressure) dependence Cholelithiasis Chronic acquired lymphedema Chronic back pain Chronic malnutrition Chronic stasis dermatitis of left lower extremity COPD (chronic obstructive pulmonary disease) Decreased pedal pulses Depression Diabetic ulcer of left foot Diabetic ulcer of right foot Diabetic ulcer of toe of left foot DVT (deep venous thrombosis) Elephantiasis Hammertoe of left foot High cholesterol History of edema History of kidney stones History of pain when walking History of stress test HLD (hyperlipidemia) Hoarseness Hypertension Increased BMI Insulin dependent diabetes mellitus Leg cramps Localized edema MRSA infection Nonhealing ulcer of left lower extremity with fat layer exposed Nonhealing ulcer of right lower extremity with fat layer exposed jail resident On home oxygen therapy RILEY (obstructive sleep apnea) PAF (paroxysmal atrial fibrillation) Peripheral neuropathy Renal lithiasis Rheumatic fever RLS (restless legs syndrome) Seasonal allergies Shortness of breath on exertion Type 2 diabetes mellitus Type 2 diabetes mellitus with diabetic polyneuropathy Ulcer of left foot with fat layer exposed Ulcer of right foot with fat layer exposed Venous insufficiency Venous stasis ulcer of right thigh with fat layer exposed Venous ulcer of left lower extremity with varicose veins Venous ulcer of right lower extremity with varicose veins Home Medications fluticasone propionate 50 mcg/actuation nasal spray,suspension 1 spray QHS allergies 02/16/14 [History Last Taken 05/24/22] furosemide 80 mg tablet 40 mg PO DAILY EDEMA 05/07/19 [History Last Taken ] acetaminophen 325 mg tablet 650 mg PO Q4H PRN Pain 09/09/21 [History Last Taken 05/23/22] bisacodyl 10 mg rectal suppository 10 mg MT DAILY PRN Constipation 09/09/21 [History Last Taken Unknown] budesonide 0.5 mg/2 mL suspension for nebulization 0.5 mg inhalation BID sob 09/09/21 [History Last Taken Unknown] diltiazem HCl 360 mg capsule,24 hr,extended release 360 mg PO DAILY 09/09/21 [History Last Taken 05/25/22] ferrous sulfate 325 mg (65 mg iron) tablet (iron) 325 mg PO BID supplement 0 09/09/21 [History Last Taken 05/25/22] multivitamin 1 tab PO DAILY supplement 09/09/21 [History Last Taken 05/25/22] omeprazole 40 mg capsule,delayed release 40 mg PO DAILY gerd 09/09/21 [History Last Taken 05/25/22] oxybutynin chloride 5 mg tablet 5 mg PO QHS bladder spasms 09/09/21 [History Last Taken 05/24/22] spironolactone 50 mg tablet 50 mg PO DAILY 09/09/21 [History Last Taken 05/25/22] methenamine hippurate 1 gram tablet 0.5 g PO BID 12/18/21 [History Last Taken 05/25/22] insulin glargine 100 unit/mL (3 mL) subcutaneous pen (Basaglar KwikPen U-100 Insulin) 8 unit subcut DAILY diabetes 05/25/22 [History Last Taken 05/25/22] metformin 500 mg tablet,extended release 24 hr 1,500 mg PO DAILY DIABETES 05/25/22 [History Last Taken 05/25/22] oxybutynin chloride 15 mg tablet,extended release 24 hr 15 mg PO DAILY BLADDER SPASMS 05/25/22 [History Last Taken 05/25/22] potassium chloride 20 mEq tablet,extended release(part/cryst) 20 meq PO BID SUPPLEMENT 05/25/22 [History Last Taken 05/25/22] venlafaxine 75 mg capsule,extended release 24 hr 75 mg PO DAILY 05/25/22 [History Last Taken 05/25/22] morphine 30 mg tablet,extended release 30 mg PO BID PAIN 3 days #6 tabs 05/28/22 [Rx Last Taken Unknown] oxycodone-acetaminophen 5 mg-325 mg tablet 1 tab PO Q12H PRN Pain 3 days #6 tabs 05/28/22 [Rx Last Taken Unknown] pregabalin 150 mg capsule 150 mg PO BID PAIN 3 days #6 caps 05/28/22 [Rx Last Taken Unknown] rivaroxaban 15 mg tablet (Xarelto) 15 mg PO DINNER 30 days #0 tabs 05/28/22 [Rx Last Taken Unknown] atorvastatin 10 mg tablet (Lipitor) 10 mg PO QHS 09/09/22 [History Last Taken Unknown] meclizine 25 mg tablet 25 mg PO TID PRN Vertigo 09/09/22 [History Last Taken Unknown] modafinil 200 mg tablet 150 mg PO DAILY 09/09/22 [History Last Taken Unknown] pramipexole 0.25 mg tablet (Mirapex) 0.25 mg PO QHS 09/09/22 [History Last Taken Unknown] clindamycin HCl 300 mg capsule 300 mg PO 4X/DAY 10 days #40 caps 09/10/22 [Rx Last Taken Unknown] Allergy/AdvReac Type Severity Reaction Status Date / Time aspirin Allergy Hives Verified 05/25/22 14:13 latex Allergy Rash Verified 05/25/22 14:13 Penicillins Allergy Hives Verified 05/25/22 14:13 Sulfa (Sulfonamide Allergy Hives Verified 05/25/22 14:13 Antibiotics) Family History Mother Heart disease Father Heart disease Surgical History History of cardiac catheterization History of ERCP History of hysterectomy Hx of dilation and curettage Hx of toe surgery S/P laparoscopic cholecystectomy Social History housing: long-term Smoking Status: Never smoker alcohol intake: never substance use type: does not use ROS Review of Systems ROS Unobtainable: due to encephalopathy and due to mental condition Vital Signs Vital Signs Vital Signs: 09/22/22 13:13 09/22/22 13:28 09/22/22 14:22 Temperature 102.7 F H 103.5 F H 39.8 F L Temperature Source Core Core Core Pulse Rate 121 H 111 H 111 H Respiratory Rate 30 H 30 H 24 H Blood Pressure 144/105 H 132/89 H 134/52 H Blood Pressure Mean 118 103 79 Pulse Ox 98 87 Oxygen Delivery Method Room Air Room Air Oxygen Flow Rate (L/min) 09/22/22 14:46 09/22/22 15:01 09/22/22 16:15 Temperature 103.1 F H 39 F L Temperature Source Core Core Pulse Rate 104 H 100 Respiratory Rate 20 H 19 H Blood Pressure 146/58 H 122/54 H Blood Pressure Mean 87 76 Pulse Ox 93 94 93 Oxygen Delivery Method Nasal Cannula Nasal Cannula Nasal Cannula Oxygen Flow Rate (L/min) 2 2 2 Weight Weight: 264 lb 8.875 oz Body Mass Index (BMI) 51.6 Physical Exam Narrative Physical exam General: Alert, Oriented x3, Cooperative, very febrile and heart in touch. HEENT: Atraumatic, PERRLA, EOMI, Normocephalic Oral: Oral mucosa dry, parched mucosa. No Gingival or Mucosal Lesions/ Ulcerations Neck: Supple, No JVD, Negative Carotid Bruits Lungs: Air entry diminished in bilateral lung bases. No crepitation/rhonchi Cardiovascular: Sinus tachycardia, Normal S1, Normal S2, No murmurs Abdomen: Bowel Sounds sluggish, Soft, Non Tender, Non-Distended : Aldana catheter with dark color urine. No renal angle tenderness. No suprapubic tenderness. Extremities: Bilateral lower extremity edema, Capillary Refill Less than 3 Seconds Skin: Redness, induration and thickening of his skin and soft tissue of left lower extremity predominantly in thigh area. Does not seem to involve perineal or sacrococcygeal area. Checked in presence of nursing staff in ED Musculoskeletal: No Tenderness to Palpation of Joints or Extremities, ROM restricted. Bilateral lower extremity lymphedema. Neurological: Complete neuro exam unobtainable. Patient irritable, eyes closed, not responding on verbal command. intact Psych/Mental Status: Confused, irritable. Results Lab / Micro Data Result Diagrams: 09/22/22 13:30 09/22/22 13:30 Labs: Laboratory Results - last 24 hr 09/22/22 13:30: WBC 27.1 H, RBC 4.03 L, Hgb 12.5, Hct 37.4, MCV 92.8, MCH 31.0, MCHC 33.4, RDW Std Deviation 48.5 H, RDW Coeff of Melissa 14.2, Plt Count 192, MPV 10.1, Immature Gran % (Auto) 1.300 H, Neut % (Auto) 92.0 H, Lymph % (Auto) 2.0 L , [place] % (Auto) 4.4, Eos % (Auto) 0.0, Baso % (Auto) 0.3, Absolute Neuts (auto) 24.9 H, Absolute Lymphs (auto) 0.55 L, Nucleated RBC % 0, Platelet Estimate ADEQUATE, RBC Morphology NORM C+C 09/22/22 13:30: Sodium 139, Potassium 4.1, Chloride 105, Carbon Dioxide 25.0, Anion Gap 9, BUN 24 H, Creatinine 1.09 H, Estim Creat Clear Calc 32.52, Est GFR (MDRD) Af Amer 63, Est GFR (MDRD) Non-Af 52 L, BUN/Creatinine Ratio 22.0 H, Glucose 130 H, Calcium 9.2, Total Bilirubin 0.50, AST 14 L, ALT 12 L, Alkaline Phosphatase 106, Total Protein 7.2, Albumin 3.2, Globulin 4.0, Albumin/Globulin Ratio 0.8 L 09/22/22 13:30: Ammonia 33.0 H 09/22/22 13:30: Lactic Acid 3.5 H* 09/22/22 13:40: POC Glucose 134 H 09/22/22 14:15: Urine Opiates Screen POSITIVE H, Urine Methadone Screen NEGATIVE, Ur Barbiturates Screen NEGATIVE, Ur Phencyclidine Scrn NEGATIVE, Ur Amphetamines Screen NEGATIVE, MDMA (Ecstasy) Screen NEGATIVE, U Benzodiazepines Scrn NEGATIVE, Urine Cocaine Screen NEGATIVE, U Cannabinoids Screen NEGATIVE, Ur Drug Screen Comment 09/22/22 14:15: Urine Color Straw, Urine Clarity Clear, Urine pH 6.0, Ur Specific [place] 1.015, Urine Protein Negative, Urine Glucose (UA) Normal, Urine Ketones Negative, Urine Occult Blood Negative, Urine Nitrite Positive H, Urine Bilirubin Negative, Urine Urobilinogen Normal, Ur Leukocyte Esterase Negative, Urine RBC 0-5 SEEN, Urine WBC 5-10 SEEN, Ur Squamous Epith Cells 0 SEEN, Urine Bacteria 3+, Urine Mucus 0 SEEN Micro: Microbiology 09/22/22 15:43 Nasal Secretion SARS-CoV-2 & FLU Antigen (Rapid) - Final ABG Data ABG results: ABG 09/22/22 15:00 Specimen Type ART Sample Site R Radial pH 7.44 Bicarbonate Actual 25.4 Total CO2 27 Base Excess 1 O2 Saturation 95 ABG pCO2 37.8 ABG pO2 71 L Mike Test Positive O2 Delivery Device Cannula Liter Flow 2.0 Radiology Impression Chest X-Ray 09/22/22 13:23 IMPRESSION: 1. Suspicious interstitial pneumonitis in the right lung base. HRCT chest will help confirm/clarify if clinically warranted. 2. No other additional findings or changes when compared to 09/09/2021. Electronically Signed: Wilton Osorio MD at 15:18 EST , Assessment & Plan Assessment/Plan (1) Sepsis: (2) Acute encephalopathy: PLAN: Plan 1. Sepsis most likely due to left lower extremity cellulitis: Patient is being admitted in ICU. The patient presented with sepsis with high fever, leukocytosis 27,000 with predominant polymorph most likely due to left lower extremity cellulitis predominantly in thigh with acute sepsis-related organ dysfunction as evidenced by lactic acidosis 3.5, and decreased responsiveness. BP in normal range. Patient on sepsis protocol for IV fluid, 30 mill per KG body weight. Patient has history of penicillin allergy with hives therefore started on IV meropenem and vancomycin. Patient had 10 days of clindamycin completed from last ED visit on 09/10. President And Cmo consulted. Chest x-ray individually reviewed and shows mild interstitial infiltrates in right lung base but patient clinically does not have symptoms of cough, or severe hypoxia, does not have burning micturition do not related symptoms as per nursing staff in long-term. UA shows WBC 5-10 cells, negative LE but positive nitrite. Panculture with blood and urine culture. SARS-CoV-2 and flu antigen are negative. Urinary antigens are negative. ABG seven-point on 2 L of oxygen shows mild hypoxia with elevated Aa gradient. 2. Left lower extremity cellulitis: Patient was last admitted in February 2022 for left foot diabetic ulcer and cellulitis of left second toe. At that time wound culture shows MRSA and and vancomycin sensitive Enterococcus faecalis. At that time, patient was discharged on Zyvox as per ID and podiatry recommendation. 3. Acute encephalopathy, multiple etiology but most likely due to sepsis, infectious encephalopathy/polypharmacy: Try to treat underlying disorder. Orientation cues and encephalopathy monitoring by nursing staff as per protocol. 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 Keep the patient n.p.o. for now. Estimated creatinine clearance is 31 mL/min. Patient baseline creatinine runs around 1.0. BUN mildly elevated. Monitor kidney function 5. Paroxysmal A-fib: Twelve-lead EKG in ED shows sinus tachycardia 117 bpm, PVCs, incomplete RBBB with nonspecific ST-T changes in lateral leads. Patient on Xarelto at home. 1 dose of Lovenox 1 mg/kg body weight given to cover for 24 hours. Resume Xarelto from tomorrow evening if she can take oral. 6. Chronic pain, debility from lymphedema and morbid obesity: Patient on Percocet, morphine, modafinil and multiple neurogenic medications that can also make her confused. 7. Multiple other chronic comorbidities include chronic bilateral lower extremity lymphedema, essential hypertension and morbid obesity: Patient has BMI 51.7 kg/m?. [employer] consult. Multiple comorbidities complicates the present care and expect difficult and delay recovery DVT ppx: Hold Xarelto. On Lovenox Living will/advanced directive/end of life care: Patient does not have living will or advanced directive. I talked to patient next of kin patient's sister Mrs. Donaldson. She said her daughter is more aware of her lives with status. She said she will call her and let me know. I further called nursing staff in long-term and he said she is full code there. After discussion of benefits/risks procedures involved with full code, DNR CC arrest and DNR CC with nursing staff and patient's sister will keep the patient as full code until further changes made by patient's daughter or patient herself when she wakes up. Patient does want artificial life support including intubation, tube feed, ventilator and/chest compression, central venous catheter, vasopressor and DC shock if needed Total time spent in [id number] encounter in discussion of advanced directive 20 minutes. Microbiology Past 72 Hours 09/22/22 14:15 Urine Catheter - Aldana Legionella Antigen - Final 09/22/22 14:15 Urine Catheter - Aldana Streptococcus pneumoniae Antigen (M - Final 09/22/22 15:43 Nasal Secretion SARS-CoV-2 & FLU Antigen (Rapid) - Final Laboratory Results 09/22/22 13:30: WBC 27.1 H, RBC 4.03 L, Hgb 12.5, Hct 37.4, MCV 92.8, MCH 31.0, MCHC 33.4, RDW Std Deviation 48.5 H, RDW Coeff of Melissa 14.2, Plt Count 192, MPV 10.1, Immature Gran % (Auto) 1.300 H, Neut % (Auto) 92.0 H, Lymph % (Auto) 2.0 L , [place] % (Auto) 4.4, Eos % (Auto) 0.0, Baso % (Auto) 0.3, Absolute Neuts (auto) 24.9 H, Absolute Lymphs (auto) 0.55 L, Nucleated RBC % 0, Platelet Estimate ADEQUATE, RBC Morphology NORM C+C 09/22/22 13:30: Sodium 139, Potassium 4.1, Chloride 105, Carbon Dioxide 25.0, Anion Gap 9, BUN 24 H, Creatinine 1.09 H, Estim Creat Clear Calc 32.52, Est GFR (MDRD) Af Amer 63, Est GFR (MDRD) Non-Af 52 L, BUN/Creatinine Ratio 22.0 H, Glucose 130 H, Calcium 9.2, Total Bilirubin 0.50, AST 14 L, ALT 12 L, Alkaline Phosphatase 106, Total Protein 7.2, Albumin 3.2, Globulin 4.0, Albumin/Globulin Ratio 0.8 L 09/22/22 13:30: Ammonia 33.0 H 09/22/22 13:30: Lactic Acid 3.5 H* 09/22/22 13:30: PT 15.1 H, INR 1.2, APTT 32.9 09/22/22 13:30: Total Creatine Kinase 50 09/22/22 13:40: POC Glucose 134 H 09/22/22 14:15: Urine Opiates Screen POSITIVE H, Urine Methadone Screen NEGATIVE, Ur Barbiturates Screen NEGATIVE, Ur Phencyclidine Scrn NEGATIVE, Ur Amphetamines Screen NEGATIVE, MDMA (Ecstasy) Screen NEGATIVE, U Benzodiazepines Scrn NEGATIVE, Urine Cocaine Screen NEGATIVE, U Cannabinoids Screen NEGATIVE, Ur Drug Screen Comment 09/22/22 14:15: Urine Color Straw, Urine Clarity Clear, Urine pH 6.0, Ur Specif ic [place] 1.015, Urine Protein Negative, Urine Glucose (UA) Normal, Urine Ketones Negative, Urine Occult Blood Negative, Urine Nitrite Positive H, Urine Bilirubin Negative, Urine Urobilinogen Normal, Ur Leukocyte Esterase Negative, Urine RBC 0-5 SEEN, Urine WBC 5-10 SEEN, Ur Squamous Epith Cells 0 SEEN, Urine Bacteria 3+, Urine Mucus 0 SEEN 09/22/22 15:00: Specimen Type ART, Sample Site R Radial, pH 7.44, Bicarbonate Actual 25.4, Total CO2 27, Base Excess 1, O2 Saturation 95, ABG pCO2 37.8, ABG pO2 71 L, Mike Test Positive, O2 Delivery Device Cannula, Liter Flow 2.0 Clinical Impression(s) from Imaging Studies Chest X-Ray 09/22/22 13:23 IMPRESSION: 1. Suspicious interstitial pneumonitis in the right lung base. HRCT chest will help confirm/clarify if clinically warranted. 2. No other additional findings or changes when compared to 09/09/2021. Charges/Coding Visit Charges Inpatient E&M: 93684 Init Hosp L3 Multi Select Codes Hospitalists' Procedures Procedures: 27095 Advncd Care Plan 30 Min
[2022-09-22] MEDS: Enoxaparin 120 MG/0.8 ML Syringe SC (21:03)
[2022-09-22] MEDS: Insulin Lispro 100 UNIT/ML INSULN.PEN SC (23:20)
[2022-09-22 23:35] LABS: Bedside Glucose 157 mg/dL (74-106)
[2022-09-23] VITALS (17 sets, daily range): BP systolic 99–130; BP diastolic 51–69; PULSE 61–93; RESP 14–21; TEMP 36.2–37.3; O2SAT 90–98; BMI 52.6
[2022-09-23 05:22] LABS: Absolute Lymphocyte Count 1.13 X10^3/uL (0.83-4.51); Absolute Neutrophil Count 9.3 X10^3/uL (2.0-7.7); Basophil# 0.04 X10^3/uL; Basophil% 0.4 % (0-1); Eosinophil# 0.07 X10^3/uL; Eosinophils% 0.6 % (0-5); Hematocrit 30.3 % (37-47); Hemoglobin 9.8 g/dL (12.0-15.0); Lymphocyte # 1.13 X10^3/ul (0.83-4.51); Lymphocyte % 9.9 % (19-41); Mean Corp Hgb Conc 32.3 g/dL (32-36); Mean Corpuscular Hgb 30.9 pg (27.0-32.0); Mean Corpuscular Volume 95.6 fL (81-99); Monocyte# 0.75 X10^3/uL; Monocyte% 6.6 % (0-10); NRBC Flagged by Analyzer 0 % (0-5); Neutrophil # 9.33 X10^3/uL (2.7-7.7); Neutrophil % 82.1 % (47-70); Platelet Count 145 K/mm3 (150-450); RBC Distribution Width CV 14.5 % (11.6-14.6); RBC Distribution Width SD 50.1 fl (35.1-43.9); Red Blood Count 3.17 M/mm3 (4.2-5.4); White Blood Count 11.4 K/mm3 (4.4-11.0)
[2022-09-23] MEDS: 0.9% Saline Lock 10 ML Syringe IV (05:28)
--- NOTE | 2022-09-23 05:42 | EX.PCM.CONCC ---
Assessment & Plan Assessment/Plan (1) Sepsis: PLAN: Plan RECOMMENDATIONS: 1. Continue antimicrobials, pending finalized culture results. 2. BiPAP therapy with naps and nightly. 3. Avoid sedating medications. 4. Encourage incentive spirometer use and mobilize patient as tolerated. 5. Continue appropriate DVT prophylaxis. IMPRESSIONS: 1. Sepsis The patient presented to the hospital with sepsis due to probable urinary tract source of infection with secondary hematogenous spread with acute sepsis related organ dysfunction as evidenced by encephalopathy and lactic acidemia. Despite the aforementioned, the patient remains hemodynamically stable. Blood cultures are positive for gram-negative rods. Urine culture is currently pending. Agree with continuing broad-spectrum antimicrobials for now, pending finalized culture results. 2. Encephalopathy Most likely metabolic in etiology secondary to #1. In addition, polypharmacy may have contributed as well, as the patient is on chronic opiate pain medications at her baseline. Regardless, the patient's mentation has improved. She is currently alert and interacting appropriately. Plan to continue supportive measures as noted above. Agree with continuing BiPAP therapy with sleep, given the patient's history of sleep apnea. I would avoid sedating medications in the future. 3. History of diabetes mellitus/paroxysmal atrial fibrillation/chronic pain syndrome/morbid obesity/obstructive sleep apnea Complicates care, management, recovery and prognosis. Continue home medications as indicated. This note was generated with [employer] dictation software. It may contain incorrect words, spelling, and punctuation that were not noted in checking the note before signing. HPI Consult Data Date of Consult: 09/23/22 HPI Narrative Reason for Consultation: Sepsis HPI Narrative: The patient is a 72-year-old female, with a history as outlined below, who presented to the emergency department via EMS on September 22 from [facility] with altered mental status. The patient has a medical history significant for lymphedema, venous insufficiency, type 2 diabetes mellitus, obstructive sleep apnea and morbid obesity. She also has a history of diabetic foot ulcers, having been followed in the wound healing clinic in the past. The patient did report to me that she is on chronic outpatient pain medications. She does report compliance with the use of BiPAP on a nightly basis. On presentation to the emergency department, the patient was noted to be febrile with a temperature of 102.7 ?F. She was also notably tachycardic and tachypneic, but otherwise hemodynamically stable. Initial laboratory evaluation revealed a white blood cell count of 27,000. Chemistry profile was notable for a creatinine of 1.09. Lactate was elevated at 3.5. Urinalysis was positive for nitrites and 3+ urine bacteria. Toxicology screen was positive for urine opiates. CT head revealed volume loss with chronic white matter changes. Chest x-ray demonstrated potential infiltrate in the right lung base. Arterial blood gas obtained on 2 L/min demonstrated a pH of 7.4 with a PCO2 of 37 and PO2 of 71. The patient ultimately received supplemental IV fluids and was initiated on broad-spectrum antimicrobials. She was admitted to the medical intensive care unit for further management. [facility] Medical History Anemia Anxiety and depression Arthritis Asthma Back pain Benign hypertension Bilateral lower extremity edema BiPAP (biphasic positive airway pressure) dependence Cholelithiasis Chronic acquired lymphedema Chronic back pain Chronic malnutrition Chronic stasis dermatitis of left lower extremity COPD (chronic obstructive pulmonary disease) Decreased pedal pulses Depression Diabetic ulcer of left foot Diabetic ulcer of right foot Diabetic ulcer of toe of left foot DVT (deep venous thrombosis) Elephantiasis Hammertoe of left foot High cholesterol History of edema History of kidney stones History of pain when walking History of stress test HLD (hyperlipidemia) Hoarseness Hypertension Increased BMI Insulin dependent diabetes mellitus Leg cramps Localized edema MRSA infection Nonhealing ulcer of left lower extremity with fat layer exposed Nonhealing ulcer of right lower extremity with fat layer exposed retirement resident On home oxygen therapy RILEY (obstructive sleep apnea) PAF (paroxysmal atrial fibrillation) Peripheral neuropathy Renal lithiasis Rheumatic fever RLS (restless legs syndrome) Seasonal allergies Shortness of breath on exertion Type 2 diabetes mellitus Type 2 diabetes mellitus with diabetic polyneuropathy Ulcer of left foot with fat layer exposed Ulcer of right foot with fat layer exposed Venous insufficiency Venous stasis ulcer of right thigh with fat layer exposed Venous ulcer of left lower extremity with varicose veins Venous ulcer of right lower extremity with varicose veins Home Medications fluticasone propionate 50 mcg/actuation nasal spray,suspension 1 spray QHS allergies 02/16/14 [History Last Taken 05/24/22] furosemide 80 mg tablet 40 mg PO DAILY EDEMA 05/07/19 [History Last Taken 05/25/22] acetaminophen 325 mg tablet 650 mg PO Q4H PRN Pain 09/09/21 [History Last Taken 05/23/22] bisacodyl 10 mg rectal suppository 10 mg MT DAILY PRN Constipation 09/09/21 [History Last Taken Unknown] budesonide 0.5 mg/2 mL suspension for nebulization 0.5 mg inhalation BID sob 09/09/21 [History Last Taken Unknown] diltiazem HCl 360 mg capsule,24 hr,extended release 360 mg PO DAILY 09/09/21 [History Last Taken 05/25/22] ferrous sulfate 325 mg (65 mg iron) tablet (iron) 325 mg PO BID supplement 09/09/21 [History Last Taken 05/25/22] multivitamin 1 tab PO DAILY supplement 09/09/21 [History Last Taken 05/25/22] omeprazole 40 mg capsule,delayed release 40 mg PO DAILY gerd 09/09/21 [History Last Taken 05/25/22] oxybutynin chloride 5 mg tablet 5 mg PO QHS bladder spasms 09/09/21 [History Last Taken 05/24/22] spironolactone 50 mg tablet 50 mg PO DAILY 09/09/21 [History Last Taken 05/25/22] methenamine hippurate 1 gram tablet 0.5 g PO BID 12/18/21 [History Last Taken 05/25/22] insulin glargine 100 unit/mL (3 mL) subcutaneous pen (Basaglar KwikPen U-100 Insulin) 8 unit subcut DAILY diabetes 05/25/22 [History Last Taken 05/25/22] metformin 500 mg tablet,extended release 24 hr 1,500 mg PO DAILY DIABETES 05/25/22 [History Last Taken 05/25/22] oxybutynin chloride 15 mg tablet,extended release 24 hr 15 mg PO DAILY BLADDER SPASMS 05/25/22 [History Last Taken 05/25/22] potassium chloride 20 mEq tablet,extended release(part/cryst) 20 meq PO BID SUPPLEMENT 05/25/22 [History Last Taken 05/25/22] venlafaxine 75 mg capsule,extended release 24 hr 75 mg PO DAILY 05/25/22 [History Last Taken 05/25/22] morphine 30 mg tablet,extended release 30 mg PO BID PAIN 3 days #6 tabs 05/28/22 [Rx Last Taken Unknown] oxycodone-acetaminophen 5 mg-325 mg tablet 1 tab PO Q12H PRN Pain 3 days #6 tabs 05/28/22 [Rx Last Taken Unknown] pregabalin 150 mg capsule 150 mg PO BID PAIN 3 days #6 caps 05/28/22 [Rx Last Taken Unknown] rivaroxaban 15 mg tablet (Xarelto) 15 mg PO DINNER 30 days #0 tabs 05/28/22 [Rx Last Taken Unknown] atorvastatin 10 mg tablet (Lipitor) 10 mg PO QHS 09/09/22 [History Last Taken Unknown] meclizine 25 mg tablet 25 mg PO TID PRN Vertigo 09/09/22 [History Last Taken Unknown] modafinil 200 mg tablet 150 mg PO DAILY 09/09/22 [History Last Taken Unknown] pramipexole 0.25 mg tablet (Mirapex) 0.25 mg PO QHS 09/09/22 [History Last Taken Unknown] clindamycin HCl 300 mg capsule 300 mg PO 4X/DAY 10 days #40 caps 09/10/22 [Rx Last Taken Unknown] Allergy/AdvReac Type Severity Reaction Status Date / Time aspirin Allergy Hives Verified 05/25/22 14:13 latex Allergy Rash Verified 05/25/22 14:13 Penicillins Allergy Hives Verified 05/25/22 14:13 Sulfa (Sulfonamide Allergy Hives Verified 05/25/22 14:13 Antibiotics) Family History Mother Heart disease Father Heart disease Surgical History History of cardiac catheterization History of ERCP History of hysterectomy Hx of dilation and curettage Hx of toe surgery S/P laparoscopic cholecystectomy Social History housing: assisted Smoking Status: Never smoker alcohol intake: never substance use type: does not use ROS ROS Narrative 10 systems were reviewed with pertinent positives as noted in the HPI above. Physical Exam Const alert and no apparent distress General Appearance: cooperative HEENT normocephalic and head/scalp atraumatic Eyes PERRL, EOMs intact bilaterally and conjunctivae normal Neck supple General: trachea midline Chest inspection of chest normal Resp normal respiratory effort Auscultation: Negative for rales, rhonchi or wheezes Cardio regular rate and regular rhythm GI normal to inspection, nondistended, normoactive bowel sounds Extremity General Extremity: Negative for clubbing or edema Skin Skin Narrative: Redness involving the thigh and distal left lower extremity General Skin Exam: dermatitis Neuro CN's II-XII intact bilaterally, moves all extremities and no focal motor deficits Psych cooperative and affect normal Lab / Micro Data Result Diagrams: 09/23/22 05:15 09/23/22 05:15 Labs: Laboratory Results - last 24 hr 09/22/22 13:30: WBC 27.1 H, RBC 4.03 L, Hgb 12.5, Hct 37.4, MCV 92.8, MCH 31.0, MCHC 33.4, RDW Std Deviation 48.5 H, RDW Coeff of Melissa 14.2, Plt Count 192, MPV 10.1, Immature Gran % (Auto) 1.300 H, Neut % (Auto) 92.0 H, Lymph % (Auto) 2.0 L, [place] % (Auto) 4.4, Eos % (Auto) 0.0, Baso % (Auto) 0.3, Absolute Neuts (auto) 24.9 H, Absolute Lymphs (auto) 0.55 L, Nucleated RBC % 0, Platelet Estimate ADEQUATE, RBC Morphology NORM C+C 09/22/22 13:30: Sodium 139, Potassium 4.1, Chloride 105, Carbon Dioxide 25.0, Anion Gap 9, BUN 24 H, Creatinine 1.09 H, Estim Creat Clear Calc 32.52, Est GFR (MDRD) Af Amer 63, Est GFR (MDRD) Non-Af 52 L, BUN/Creatinine Ratio 22.0 H, Glucose 130 H, Calcium 9.2, Total Bilirubin 0.50, AST 14 L, ALT 12 L, Alkaline Phosphatase 106, Total Protein 7.2, Albumin 3.2, Globulin 4.0, Albumin/Globulin Ratio 0.8 L 09/22/22 13:30: Ammonia 33.0 H 09/22/22 13:30: Lactic Acid 3.5 H* 09/22/22 13:30: PT 15.1 H, INR 1.2, APTT 32.9 09/22/22 13:30: Total Creatine Kinase 50 09/22/22 13:30: Phosphorus 2.6, Magnesium 1.7 09/22/22 13:40: POC Glucose 134 H 09/22/22 14:15: Urine Opiates Screen POSITIVE H, Urine Methadone Screen NEGATIVE, Ur Barbiturates Screen NEGATIVE, Ur Phencyclidine Scrn NEGATIVE, Ur Amphetamines Screen NEGATIVE, MDMA (Ecstasy) Screen NEGATIVE, U Benzodiazepines Scrn NEGATIVE, Urine Cocaine Screen NEGATIVE, U Cannabinoids Screen NEGATIVE, Ur Drug Screen Comment 09/22/22 14:15: Urine Color Straw, Urine Clarity Clear, Urine pH 6.0, Ur Specific [place] 1.015, Urine Protein Negative, Urine Glucose (UA) Normal, Urine Ketones Negative, Urine Occult Blood Negative, Urine Nitrite Positive H, Urine Bilirubin Negative, Urine Urobilinogen Normal, Ur Leukocyte Esterase Negative, Urine RBC 0-5 SEEN, Urine WBC 5-10 SEEN, Ur Squamous Epith Cells 0 SEEN, Urine Bacteria 3+, Urine Mucus 0 SEEN 09/22/22 18:27: POC Glucose 117 H 09/22/22 19:06: Lactic Acid 2.1 H* 09/22/22 23:16: POC Glucose 157 H 09/23/22 05:15: WBC 11.4 H, RBC 3.17 L, Hgb 9.8 L, Hct 30.3 L, MCV 95.6, MCH 30.9, MCHC 32.3, RDW Std Deviation 50.1 H, RDW Coeff of Melissa 14.5, Plt Count 145 L, MPV 10.0, Immature Gran % (Auto) 0.400, Neut % (Auto) 82.1 H, Lymph % (Auto) 9.9 L, [place] % (Auto) 6.6, Eos % (Auto) 0.6, Baso % (Auto) 0.4, Absolute Neuts (auto) 9.3 H, Absolute Lymphs (auto) 1.13, Nucleated RBC % 0 Micro: Microbiology 09/22/22 13:30 Blood Culture (Wb) - Left Wrist Blood Culture - Preliminary 09/22/22 14:15 Urine Catheter - Aldana Legionella Antigen - Final 09/22/22 14:15 Urine Catheter - Aldana Streptococcus pneumoniae Antigen (M - Final 09/22/22 15:43 Nasal Secretion SARS-CoV-2 & FLU Antigen (Rapid) - Final ABG Data ABG results: ABG 09/22/22 15:00 Specimen Type ART Sample Site R Radial pH 7.44 Bicarbonate Actual 25.4 Total CO2 27 Base Excess 1 O2 Saturation 95 ABG pCO2 37.8 ABG pO2 71 L Mike Test Positive O2 Delivery Device Cannula Liter Flow 2.[address] 09/22/22 13:23 IMPRESSION: Volume loss with chronic white matter changes. No acute intracranial findings. Electronically Signed: Elvin Pearce MD at 17:37 EST , Chest X-Ray 09/22/22 13:23 IMPRESSION: 1. Suspicious interstitial pneumonitis in the right lung base. HRCT chest will help confirm/clarify if clinically warranted. 2. No other additional findings or changes when compared to 09/09/2021. Electronically Signed: Wilton Osorio MD at 15:18 EST , Charges/Coding Visit Charges Inpatient E&M: 06683 Init Hosp L3
[2022-09-23 05:47] LABS: Anion Gap 4 (5-15); BUN 16 mg/dL (7-18); BUN/Creat Ratio 22.2 RATIO (10-20); Calcium,Total 8.2 mg/dL (8.5-10.1); Chloride 109 mmol/L (98-107); Creatinine, Serum 0.72 mg/dL (0.55-1.02); EST Glomerular Filtration Rate 84 mL/min (>60); Est Glom Filt Rate - Afr Amer 101 mL/min (>60); Estimated Creatinine Clearance 35.45 ml/min; Glucose 109 mg/dL (74-106); Potassium 3.5 mmol/L (3.5-5.1); Sodium Level 142 mmol/L (136-145); Thyroid Stim Hormone (TSH) 0.39 uIU/mL (0.358-3.74)
[2022-09-23] MEDS: Pantoprazole Sodium 40 MG Tablet PO (09:42)
[2022-09-23] MEDS: Insulin Glargine-YFGN 100 UNIT/ML Pen 8 UNIT SC (09:42)
[2022-09-23] MEDS: dilTIAZem CD 180 MG Capsule 360 MG PO (09:42)
[2022-09-23] MEDS: Rivaroxaban 15 MG Tablet PO (14:47)
[2022-09-23] MEDS: morphine SR 15 MG Tablet 30 MG PO ×2 (14:48→22:05)
--- NOTE | 2022-09-23 15:20 | PCM.PROGNOTE ---
Subjective Subjective Patient seen and examined. She had no active complaints and had an uneventful night. Review of systems is otherwise negative. She is more alert and communicative today. Objective Data Objective Data Vital Signs: Vital Signs Temp Pulse Resp BP Pulse Ox O2 Del Method O2 Flow Rate 98.8 F 70 16 125/63 H 96 Nasal Cannula 2 09/23/22 09:00 09/23/22 09:00 09/23/22 09:00 09/23/22 09:00 09/23/22 09:00 09/23/22 09:00 09/23/22 10:54 FiO2 25 09/23/22 05:00 Oxygen Flow Rate (L/min) 2 Oxygen Delivery Method Nasal Cannula Weight: 269 lb 6.478 oz Body Mass Index (BMI) 52.6 Intake & Output: Intake and Output for Last 24 Hours 09/21/22 09/22/22 09/23/22 23:59 23:59 23:59 Intake Total 5660 / 5660 240 / 240 Output Total 1800 / 1800 1050 / 1050 Balance 3860 / 3860 -810 / -810 Lab / Micro Data Result Diagrams: 09/23/22 05:15 09/23/22 05:15 Labs: Laboratory Results - last 24 hr 09/22/22 13:30: PT 15.1 H, INR 1.2, APTT 32.9 09/22/22 13:30: Total Creatine Kinase 50 09/22/22 13:30: Phosphorus 2.6, Magnesium 1.7 09/22/22 18:27: POC Glucose 117 H 09/22/22 19:06: Lactic Acid 2.1 H* 09/22/22 23:16: POC Glucose 157 H 09/23/22 05:15: WBC 11.4 H, RBC 3.17 L, Hgb 9.8 L, Hct 30.3 L, MCV 95.6, MCH 30.9, MCHC 32.3, RDW Std Deviation 50.1 H, RDW Coeff of Melissa 14.5, Plt Count 145 L, MPV 10.0, Immature Gran % (Auto) 0.400, Neut % (Auto) 82.1 H, Lymph % (Auto) 9.9 L, [place] % (Auto) 6.6, Eos % (Auto) 0.6, Baso % (Auto) 0.4, Absolute Neuts (auto) 9.3 H, Absolute Lymphs (auto) 1.13, Nucleated RBC % 0 09/23/22 05:15: Sodium 142, Potassium 3.5, Chloride 109 H, Carbon Dioxide 29.0, Anion Gap 4 L, BUN 16, Creatinine 0.72, Estim Creat Clear Calc 35.45, Est GFR (MDRD) Af Amer 101, Est GFR (MDRD) Non-Af 84, BUN/Creatinine Ratio 22.2 H, Glucose 109 H, Calcium 8.2 L, TSH 0.39 Micro: Microbiology 09/22/22 13:30 Blood Culture (Wb) - Left Wrist Blood Culture - Preliminary GNR lactose chief controller center 09/22/22 14:15 Urine Catheter - Catheter Urine Culture - Preliminary GNR lactose chief controller center 09/22/22 14:15 Urine Catheter - Aldana Legionella Antigen - Final 09/22/22 14:15 Urine Catheter - Aldana Streptococcus pneumoniae Antigen (M - Final 09/22/22 15:43 Nasal Secretion SARS-CoV-2 & FLU Antigen (Rapid) - Final Radiography Diagnostic Testing: Radiology Impression Brain CT 09/22/22 13:23 IMPRESSION: Volume loss with chronic white matter changes. No acute intracranial findings. Electronically Signed: Elvin Pearce MD at 17:37 EST , Physical Exam Const alert and oriented x3 Constitutional Narrative: obese HEENT normocephalic and head/scalp atraumatic Mouth: dry mucous membranes Lymph Lymphatic: no lymphadenopathy noted Resp normal respiratory effort, normal air movement and clear to auscultation bilaterally Cardio regular rate, regular rhythm, S1 normal heart sound, S2 normal heart sound and no murmurs GI normal to inspection, nondistended, normoactive bowel sounds, soft to palpation and non-tender Extremity normal capillary refill Skin Skin Narrative: very minimal erythema or differential warmth of LLE. No tenderness. Neuro CN's II-XII intact bilaterally, no focal motor deficits and no sensory deficits noted Psych thought process normal Appearance: appropriate Assessment & Plan Assessment/Plan (1) Acute encephalopathy: (2) Sepsis: (3) Cellulitis of left foot: PLAN: Plan #Sepsis due to presumed cellulitis of left foot She feels much better today. Redness of left lower extremity has improved. Currently on IV vancomycin and meropenem. She was recently admitted for cellulitis of the lower extremity and was given clindamycin. Critical care on board. Blood cultures pending. #Acute encephalopathy which was thought to be due to infectious and polypharmacy: Resolved and she is now much more alert. Will monitor. #A-fib: On Xarelto. Also on Cardizem. #Lymphedema morbid obesity: On Percocet and morphine. Percocet held as morphine resumed. Also on modafinil. Also on furosemide. #Hypertension: Continue current medication-on spironolactone #Type 2 diabetes mellitus: On Lantus 8 units daily as well as metformin. Insulin sliding scale. Accu-Cheks ACHS. DVT prophylaxis: Xarelto resumed. Disposition: Transfer patient out of ICU to PCU Total time spent reviewing patient, physical examination, review of chart and review of specialist notes, discussion with nursing staff as well as documentation: 40 minutes. Charges/Coding Visit Charges Inpatient E&M: 78101 Subs Hosp L2
[2022-09-23 16:50] LABS: Bedside Glucose 123 mg/dL (74-106)
[2022-09-23] MEDS: Budesonide Respules 0.5 MG/2 ML AMPUL.NEB. INHALATION (19:06)
[2022-09-23] MEDS: Potassium Chloride Oral Tablet 20 MEQ PO (21:59)
[2022-09-23] MEDS: Methenamine Hippurate 1 GM Tablet 0.5 GM PO (21:59)
[2022-09-23] MEDS: Atorvastatin Calcium 10 MG Tablet PO (21:59)
[2022-09-23] MEDS: Tolterodine Tartrate 2 MG CAP.SA PO (22:01)
[2022-09-23] MEDS: Pramipexole Di-HCl 0.25 MG Tablet PO (22:05)
[2022-09-23] MEDS: Fluticasone 0.05% 1 SPRAY NASAL.SRY NASAL (22:24)
[2022-09-24] VITALS (12 sets, daily range): BP systolic 111–124; BP diastolic 38–67; PULSE 55–72; RESP 13–18; TEMP 36.6–37.1; O2SAT 93–99; BMI 50.5
[2022-09-24 02:06] LABS: Bedside Glucose 107 mg/dL (74-106)
[2022-09-24 04:24] LABS: Absolute Lymphocyte Count 1.31 X10^3/uL (0.83-4.51); Absolute Neutrophil Count 4.6 X10^3/uL (2.0-7.7); Basophil# 0.03 X10^3/uL; Basophil% 0.5 % (0-1); Eosinophils% 1.5 % (0-5); Hematocrit 31.4 % (37-47); Hemoglobin 10.2 g/dL (12.0-15.0); Lymphocyte # 1.31 X10^3/ul (0.83-4.51); Mean Corp Hgb Conc 32.5 g/dL (32-36); Mean Corpuscular Hgb 30.9 pg (27.0-32.0); Mean Corpuscular Volume 95.2 fL (81-99); Mean Platelet Vol. 9.8 fl (6.2-12.0); Monocyte# 0.47 X10^3/uL; Monocyte% 7.2 % (0-10); NRBC Flagged by Analyzer 0 % (0-5); Neutrophil # 4.64 X10^3/uL (2.7-7.7); Neutrophil % 70.6 % (47-70); Platelet Count 142 K/mm3 (150-450); RBC Distribution Width CV 14.3 % (11.6-14.6); RBC Distribution Width SD 49.3 fl (35.1-43.9); White Blood Count 6.6 K/mm3 (4.4-11.0)
[2022-09-24 04:36] LABS: Anion Gap 4 (5-15); BUN 13 mg/dL (7-18); Calcium,Total 8.4 mg/dL (8.5-10.1); Chloride 110 mmol/L (98-107); Creatinine, Serum 0.72 mg/dL (0.55-1.02); EST Glomerular Filtration Rate 84 mL/min (>60); Est Glom Filt Rate - Afr Amer 101 mL/min (>60); Estimated Creatinine Clearance 35.45 ml/min; Glucose 101 mg/dL (74-106); Potassium 3.7 mmol/L (3.5-5.1); Sodium Level 142 mmol/L (136-145)
--- NOTE | 2022-09-24 07:12 | PN.CC_ITS ---
Assessment & Plan Assessment/Plan (1) Sepsis: PLAN: Plan RECOMMENDATIONS: 1. Continue antimicrobials, pending finalized culture results. 2. Continue BiPAP with sleep. Avoid sedating medications 3. Initiate contact precautions given history of ESBL 4. Encourage incentive spirometer use and mobilize patient as tolerated. 5. Continue appropriate DVT prophylaxis. 6. Hemodynamically stable on minimal nasal cannula. Will sign off from a critical care perspective IMPRESSIONS: 1. Sepsis The patient presented to the hospital with sepsis due to probable urinary tract source of infection with secondary hematogenous spread with acute sepsis related organ dysfunction as evidenced by encephalopathy and lactic acidemia. Despite the aforementioned, the patient remains hemodynamically stable. Blood and urine cultures are positive for gram-negative rods. Urine culture has grown ESBL E. coli in the past. Initiate contact precautions. Agree with continuing broad-spectrum antimicrobials for now, pending finalized culture results. However, given greater than 24 hours of stability, will sign off from a critical care perspective. 2. Encephalopathy Improving. Most likely metabolic in etiology secondary to #1. In addition, polypharmacy may have contributed as well, as the patient is on chronic opiate pain medications at her baseline. Regardless, the patient's mentation has improved. She is currently alert and interacting appropriately. Plan to continue supportive measures as noted above. Agree with continuing BiPAP therapy with sleep, given the patient's history of sleep apnea. I would avoid sedating medications in the future. Reevaluation of sleep apnea and as an outpatient would not be unreasonable 3. History of diabetes mellitus/paroxysmal atrial fibrillation/chronic pain syndrome/morbid obesity/obstructive sleep apnea Complicates care, management, recovery and prognosis. Continue home medications as indicated. This note was generated with [employer] dictation software. It may contain incorrect words, spelling, and punctuation that were not noted in checking the note before signing. Subjective Subjective Patient did well overnight. Patient with no new complaints this morning. Patient was compliant with BiPAP with sleep. Patient is not reporting any pain at this time. Objective Data Objective Data Vital Signs: Vital Signs Temp Pulse Resp BP Pulse Ox O2 Del Method O2 Flow Rate 36.6 C 58 L 16 120/58 L 97 Bi-pap 2 09/24/22 03:00 09/24/22 04:50 09/24/22 04:50 09/24/22 03:00 09/24/22 04:50 09/24/22 04:00 09/23/22 21:00 FiO2 25 09/24/22 04:50 Oxygen Flow Rate (L/min) 2 Oxygen Delivery Method Bi-pap Weight: 117.3 kg Body Mass Index (BMI) 50.5 Intake & Output: Intake and Output for Last 24 Hours 09/22/22 09/23/22 09/24/22 23:59 23:59 23:59 Intake Total 5660 / 5660 690 / 790 220 / 220 Output Total 1800 / 1800 1100 / 1500 400 / 400 Balance 3860 / 3860 -410 / -710 -180 / -180 Lab / Micro Data Attestation: I reviewed the patient's lab results. Lab results narrative: Review of previous culture shows patient had ESBL E. coli in the past. Result Diagrams: 09/24/22 04:19 09/24/22 04:19 Labs: Laboratory Results - last 24 hr 09/23/22 16:28: POC Glucose 123 H 09/24/22 01:45: POC Glucose 107 H 09/24/22 04:19: Sodium 142, Potassium 3.7, Chloride 110 H, Carbon Dioxide 28.0, Anion Gap 4 L, BUN 13, Creatinine 0.72, Estim Creat Clear Calc 35.45, Est GFR (MDRD) Af Amer 101, Est GFR (MDRD) Non-Af 84, BUN/Creatinine Ratio 18.0, Glucose 101, Calcium 8.4 L 09/24/22 04:19: WBC 6.6, RBC 3.30 L, Hgb 10.2 L, Hct 31.4 L, MCV 95.2, MCH 30.9, MCHC 32.5, RDW Std Deviation 49.3 H, RDW Coeff of Melissa 14.3, Plt Count 142 L, MPV 9.8, Immature Gran % (Auto) 0.200, Neut % (Auto) 70.6 H, Lymph % (Auto) 20.0, [place] % (Auto) 7.2, Eos % (Auto) 1.5, Baso % (Auto) 0.5, Absolute Neuts (auto) 4.6, Absolute Lymphs (auto) 1.31, Nucleated RBC % 0 Micro: Microbiology 09/22/22 14:30 Blood Culture (Wb) - Other Blood Culture - Preliminary No growth in 48 hours. 09/22/22 13:30 Blood Culture (Wb) - Left Wrist Blood Culture - Preliminary GNR lactose paraprofessional aide 09/22/22 14:15 Urine Catheter - Catheter Urine Culture - Preliminary GNR lactose paraprofessional aide 09/22/22 14:15 Urine Catheter - Aldana Legionella Antigen - Final 09/22/22 14:15 Urine Catheter - Aldana Streptococcus pneumoniae Antigen (M - Final 09/22/22 15:43 Nasal Secretion SARS-CoV-2 & FLU Antigen (Rapid) - Final Radiography Diagnostic Testing: Radiology Impression Venous Doppler Study 09/22/22 17:36 Interpretation Summary No evidence for acute deep venous thrombosis bilateral lower extremities with patent and compressible bilateral great saphenous veins. Ordering Physician: Shayne Elder Referring Physician: Efren Argueta Performed By: Adrian Bailey RVT Physical Exam Const alert and no apparent distress Constitutional Narrative: On BiPAP during my evaluation General Appearance: cooperative HEENT normocephalic and head/scalp atraumatic Eyes PERRL, EOMs intact bilaterally and conjunctivae normal Neck supple General: trachea midline Chest inspection of chest normal Resp normal respiratory effort Effort and Inspection: Negative for actively coughing Auscultation: Negative for rales, rhonchi or wheezes Cardio regular rate, regular rhythm, S1 normal heart sound, S2 normal heart sound, no murmurs, no rub and no gallops GI normal to inspection, nondistended, normoactive bowel sounds Extremity General Extremity: Negative for clubbing or edema Skin Skin Narrative: Redness involving the thigh and distal left lower extremity General Skin Exam: dermatitis Neuro CN's II-XII intact bilaterally, moves all extremities and no focal motor deficits Psych cooperative and affect normal Charges/Coding Visit Charges Inpatient E&M: 94405 Subs Hosp L2
[2022-09-24 07:31] LABS: Bedside Glucose 101 mg/dL (74-106)
--- NOTE | 2022-09-24 07:59 | PN.HOSP_ITS ---
Reason for Visit Reason for Visit: Diagnoses Sepsis, unspecified organism (09/22/22) Encephalopathy, unspecified (09/22/22) Cellulitis of left lower limb (09/22/22) Subjective Subjective Overall is feeling better and breathing improving, transferred out of the ICU Objective Data Objective Data Vital Signs: Vital Signs Temp Pulse Resp BP Pulse Ox O2 Del Method O2 Flow Rate 97.8 F 58 L 16 120/58 L 97 Bi-pap 2 09/24/22 03:00 09/24/22 04:50 09/24/22 04:50 09/24/22 03:00 09/24/22 04:50 09/24/22 04:00 09/23/22 21:00 FiO2 25 09/24/22 04:50 Oxygen Flow Rate (L/min) 2 Oxygen Delivery Method Bi-pap Weight: 117.3 kg Body Mass Index (BMI) 50.5 Intake & Output: Intake and Output for Last 24 Hours 09/22/22 09/23/22 09/24/22 23:59 23:59 23:59 Intake Total 5660 / 5660 690 / 790 220 / 220 Output Total 1800 / 1800 1100 / 1500 400 / 400 Balance 3860 / 3860 -410 / -710 -180 / -180 Lab / Micro Data Result Diagrams: 09/24/22 04:19 09/24/22 04:19 Labs: Laboratory Results - last 24 hr 09/23/22 16:28: POC Glucose 123 H 09/24/22 01:45: POC Glucose 107 H 09/24/22 04:19: Sodium 142, Potassium 3.7, Chloride 110 H, Carbon Dioxide 28.0, Anion Gap 4 L, BUN 13, Creatinine 0.72, Estim Creat Clear Calc 35.45, Est GFR (MDRD) Af Amer 101, Est GFR (MDRD) Non-Af 84, BUN/Creatinine Ratio 18.0, Glucose 101, Calcium 8.4 L 09/24/22 04:19: WBC 6.6, RBC 3.30 L, Hgb 10.2 L, Hct 31.4 L, MCV 95.2, MCH 30.9, MCHC 32.5, RDW Std Deviation 49.3 H, RDW Coeff of Melissa 14.3, Plt Count 142 L, MPV 9.8, Immature Gran % (Auto) 0.200, Neut % (Auto) 70.6 H, Lymph % (Auto) 20.0, [place] % (Auto) 7.2, Eos % (Auto) 1.5, Baso % (Auto) 0.5, Absolute Neuts (auto) 4.6, Absolute Lymphs (auto) 1.31, Nucleated RBC % 0 09/24/22 07:04: POC Glucose 101 Micro: Microbiology 09/22/22 14:30 Blood Culture (Wb) - Other Blood Culture - Preliminary No growth in 48 hours. 09/22/22 13:30 Blood Culture (Wb) - Left Wrist Blood Culture - Preliminary GNR lactose grease and tallow pumper 09/22/22 14:15 Urine Catheter - Catheter Urine Culture - Preliminary GNR lactose grease and tallow pumper 09/22/22 14:15 Urine Catheter - Aldana Legionella Antigen - Final 09/22/22 14:15 Urine Catheter - Aldana Streptococcus pneumoniae Antigen (M - Final 09/22/22 15:43 Nasal Secretion SARS-CoV-2 & FLU Antigen (Rapid) - Final Radiography Diagnostic Testing: Radiology Impression Venous Doppler Study 09/22/22 17:36 Interpretation Summary No evidence for acute deep venous thrombosis bilateral lower extremities with patent and compressible bilateral great saphenous veins. Ordering Physician: Shayne Elder Referring Physician: Efren Argueta Performed By: Adrian Bailey RVT Physical Exam Narrative General: Alert, oriented, no apparent distress HEENT: Atraumatic, normocephalic Eyes: Anicteric, normal conjunctiva, extraocular movements grossly intact Neck: Supple Respiratory: Seems to be somewhat diminished at the bases, normal respiratory effort Cardiovascular: Regular rate and rhythm GI: Soft, nontender, nondistended Extremities: No edema Musculoskeletal: Moving all extremities Neuro: No overt focal neurological deficits Skin: Chronic changes in lower extremities Psych: Cooperative Assessment & Plan Assessment/Plan (1) Sepsis: PLAN: Plan 72-year-old female who presented on 09/22 unresponsive brought in by EMS with a high fever and cellulitis. She resides at [facility] and was found to have a temp of 104.5. She is on opioids and was given Narcan by EMS but did not get better. In ED she was febrile, tachycardic, tachypneic with mild hypoxia of 87% on room air and lower extremity, left, was red and hot. Additionally had leukocytosis and a lactic acid of 3.5. She was given IV fluids per sepsis protocol and vancomycin and admitted for sepsis.. Has had history of recurrent cellulitis and was last admitted April 2022. Additionally he was in the ED 09/10 for cellulitis of left thigh and was sent on clinda 300 4 times daily for 10 days. #Sepsis secondary likely secondary to urinary source with secondary hematogenous spread -Was admitted to ICU creative services specialist consulted -Had leukocytosis on admission of 27,000 with a high fever and lactic of 3.5 with altered mental status and received sepsis protocol for fluids. She has penicillin allergy and was started on Merrem and vancomycin. 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, CKD stage IIIb, diabetic neuropathy -Glucose checks and sliding scale insulin -Lantus 8 units daily, metformin #CKD stage IIIb -Avoid nephrotoxic agents, monitor creatinine #Paroxysmal atrial fibrillation -On Xarelto -On Cardizem #Chronic pain secondary to debility from lymphedema and morbid obesity -Takes Percocet, morphine, modafinil at home -On furosemide #Morbid obesity -BMI 50.5 kg/m?, complicates present care and placed recovery #DVT ppx: Nicol Plascencia MD Time spent in the patient's overall evaluation,decision-making process, review of diagnostic data, adjustment of management, discussion with other providers, nursing nursing and ancillary staff involved in patient's care documentation, 32 Minutes
[2022-09-24] MEDS: metFORMIN (XR) 500 MG Tablet 1500 MG PO (09:26)
[2022-09-24] MEDS: Potassium Chloride Oral Tablet 20 MEQ PO ×2 (09:27→17:33)
[2022-09-24] MEDS: Pantoprazole Sodium 40 MG Tablet PO (09:27)
[2022-09-24] MEDS: Venlafaxine XR 75 MG Capsule PO (09:27)
[2022-09-24] MEDS: Furosemide 80 MG Tablet 40 MG PO (09:27)
[2022-09-24] MEDS: Insulin Glargine-YFGN 100 UNIT/ML Pen 8 UNIT SC (09:28)
[2022-09-24] MEDS: Methenamine Hippurate 1 GM Tablet 0.5 GM PO ×2 (09:29→22:50)
[2022-09-24] MEDS: Spironolactone 50 MG Tablet PO (09:30)
[2022-09-24] MEDS: dilTIAZem CD 180 MG Capsule 360 MG PO (09:30)
[2022-09-24] MEDS: morphine SR 15 MG Tablet 30 MG PO ×2 (09:36→22:49)
[2022-09-24] MEDS: Modafinil 200 MG Tablet 150 MG PO (09:55)
[2022-09-24] MEDS: Budesonide Respules 0.5 MG/2 ML AMPUL.NEB. INHALATION ×2 (09:58→19:06)
[2022-09-24] MEDS: Insulin Lispro 100 UNIT/ML INSULN.PEN SC (11:51)
[2022-09-24 12:05] LABS: Bedside Glucose 216 mg/dL (74-106)
--- NOTE | 2022-09-24 12:16 | CASEMGMT ---
Addendum entered by Anita Rutledge 09/24/22 13:30: [facility] messaged back. Pt is medicaid bed hold and able to return back to [facility] when medically ready. Addendum entered by Anita Rutledge 09/24/22 13:23: Wilma from called back. Pt is part of the Waiver program but technically has not gotten the service for assisted living d/t pt many health concerns. Once pt is stable pt will be eligible for [place] waiver. Original Note: Social Work SW in to meet with pt. SW inquired about pt discharge plan when medically ready to leave the hospital. Pt informed from [facility] and would like to go back there upon discharge. KRISTIN asked if pt would like a SNF list and pt declined, stating that [facility] is her home and pt plans to enter assisted living there once therapy is complete. KRISTIN sent clinical updates to [facility] via [employer] and inquired as to pt being able to return to facility when medically stable. KRISTIN also inquired about [facility] services. Pt appeared confused at first but was able to confirm case management specialist is Wilma Vu. called Wilma to inform pt has been admitted. Left requesting a call back regarding pt services. PLAN: Return to [facility], when medically ready SHARATH Kahn
[2022-09-24] MEDS: 0.9% Saline Lock 10 ML Syringe IV ×2 (14:09→22:49)
[2022-09-24] MEDS: Rivaroxaban 15 MG Tablet PO (17:33)
[2022-09-24 17:55] LABS: Bedside Glucose 144 mg/dL (74-106)
[2022-09-24] MEDS: Pramipexole Di-HCl 0.25 MG Tablet PO (22:50)
[2022-09-24] MEDS: Tolterodine Tartrate 2 MG CAP.SA PO (22:50)
[2022-09-24] MEDS: Atorvastatin Calcium 10 MG Tablet PO (22:50)
[2022-09-24] MEDS: Fluticasone 0.05% 1 SPRAY NASAL.SRY NASAL (22:51)
[2022-09-25] VITALS (12 sets, daily range): BP systolic 115–131; BP diastolic 65–79; PULSE 58–97; RESP 14–28; TEMP 36.5–36.9; O2SAT 92–99
[2022-09-25 00:31] LABS: Bedside Glucose 129 mg/dL (74-106)
[2022-09-25] MEDS: 0.9% Saline Lock 10 ML Syringe IV (06:34)
[2022-09-25 06:45] LABS: Absolute Lymphocyte Count 1.25 X10^3/uL (0.83-4.51); Absolute Neutrophil Count 3.8 X10^3/uL (2.0-7.7); Basophil# 0.03 X10^3/uL; Basophil% 0.5 % (0-1); Eosinophil# 0.15 X10^3/uL; Eosinophils% 2.7 % (0-5); Hematocrit 32.7 % (37-47); Hemoglobin 10.9 g/dL (12.0-15.0); Lymphocyte # 1.25 X10^3/ul (0.83-4.51); Lymphocyte % 22.2 % (19-41); Mean Corp Hgb Conc 33.3 g/dL (32-36); Mean Corpuscular Hgb 30.9 pg (27.0-32.0); Mean Corpuscular Volume 92.6 fL (81-99); Mean Platelet Vol. 10.2 fl (6.2-12.0); Monocyte# 0.35 X10^3/uL; Monocyte% 6.2 % (0-10); NRBC Flagged by Analyzer 0 % (0-5); Neutrophil # 3.84 X10^3/uL (2.7-7.7); Neutrophil % 68.2 % (47-70); Platelet Count 155 K/mm3 (150-450); RBC Distribution Width CV 13.8 % (11.6-14.6); RBC Distribution Width SD 47.1 fl (35.1-43.9); Red Blood Count 3.53 M/mm3 (4.2-5.4); White Blood Count 5.6 K/mm3 (4.4-11.0)
[2022-09-25 07:19] LABS: ALB/GLOB Ratio 0.7 RATIO (0.9-2.4); AST(SGOT) 11 U/L (15-37); Alanine Aminotransfer ALT/SGPT 12 U/L (13-56); Albumin, Serum 2.5 g/dL (3.2-5.0); Alkaline Phosphatase 76 U/L (45-117); Anion Gap 5 (5-15); BUN 12 mg/dL (7-18); BUN/Creat Ratio 17.6 RATIO (10-20); Calcium,Total 8.7 mg/dL (8.5-10.1); Chloride 108 mmol/L (98-107); Creatinine, Serum 0.68 mg/dL (0.55-1.02); EST Glomerular Filtration Rate 89 mL/min (>60); Est Glom Filt Rate - Afr Amer 108 mL/min (>60); Estimated Creatinine Clearance 35.45 ml/min; Globulin 3.6 g/dL (2.2-4.2); Glucose 101 mg/dL (74-106); Potassium 3.7 mmol/L (3.5-5.1); Protein, Total 6.1 g/dL (6.4-8.2); Sodium Level 141 mmol/L (136-145)
[2022-09-25 07:21] LABS: Bedside Glucose 97 mg/dL (74-106)
[2022-09-25] MEDS: Budesonide Respules 0.5 MG/2 ML AMPUL.NEB. INHALATION ×2 (07:22→19:15)
--- NOTE | 2022-09-25 08:22 | PN.HOSP_ITS ---
Reason for Visit Reason for Visit: Diagnoses Sepsis, unspecified organism (09/22/22) Encephalopathy, unspecified (09/22/22) Cellulitis of left lower limb (09/22/22) Subjective Subjective Feeling somewhat better today, breathing improving, resting comfortably on BiPAP Objective Data Objective Data Vital Signs: Vital Signs Temp Pulse Resp BP Pulse Ox O2 Del Method O2 Flow Rate 98.5 F 78 18 115/71 96 Room Air 2 09/25/22 04:39 09/25/22 07:21 09/25/22 07:21 09/25/22 04:39 09/25/22 07:21 09/25/22 07:21 09/24/22 19:06 FiO2 30 09/25/22 03:13 Oxygen Flow Rate (L/min) 2 Oxygen Delivery Method Room Air Weight: 117.3 kg Body Mass Index (BMI) 50.5 Intake & Output: Intake and Output for Last 24 Hours 09/23/22 09/24/22 09/25/22 23:59 23:59 23:59 Intake Total 690 / 790 862.75 / 862.75 120 / 120 Output Total 1100 / 1500 400 / 400 200 / 200 Balance -410 / -710 462.75 / 462.75 -80 / -80 Lab / Micro Data Result Diagrams: 09/25/22 05:50 09/25/22 05:50 Labs: Laboratory Results - last 24 hr 09/24/22 11:45: POC Glucose 216 H 09/24/22 17:31: POC Glucose 144 H 09/24/22 22:37: POC Glucose 129 H 09/25/22 05:50: WBC 5.6, RBC 3.53 L, Hgb 10.9 L, Hct 32.7 L, MCV 92.6, MCH 30.9, MCHC 33.3, RDW Std Deviation 47.1 H, RDW Coeff of Melissa 13.8, Plt Count 155, MPV 10.2, Immature Gran % (Auto) 0.200, Neut % (Auto) 68.2, Lymph % (Auto) 22.2, [place] % (Auto) 6.2, Eos % (Auto) 2.7, Baso % (Auto) 0.5, Absolute Neuts (auto) 3.8, Absolute Lymphs (auto) 1.25, Nucleated RBC % 0 09/25/22 05:50: Sodium 141, Potassium 3.7, Chloride 108 H, Carbon Dioxide 28.0, Anion Gap 5, BUN 12, Creatinine 0.68, Estim Creat Clear Calc 35.45, Est GFR (M DRD) Af Amer 108, Est GFR (MDRD) Non-Af 89, BUN/Creatinine Ratio 17.6, Glucose 101, Calcium 8.7, Total Bilirubin 0.20, AST 11 L, ALT 12 L, Alkaline Phosphatase 76, Total Protein 6.1 L, Albumin 2.5 L, Globulin 3.6, Albumin/Globulin Ratio 0.7 L 09/25/22 06:38: POC Glucose 97 Micro: Microbiology 09/22/22 14:15 Urine Catheter - Catheter Urine Culture - Preliminary Escherichia coli 09/22/22 14:30 Blood Culture (Wb) - Other Blood Culture - Preliminary No growth in 48 hours. 09/22/22 13:30 Blood Culture (Wb) - Left Wrist Blood Culture - Preliminary GNR lactose housing and residence life director 09/22/22 14:15 Urine Catheter - Aldana Legionella Antigen - Final 09/22/22 14:15 Urine Catheter - Aldana Streptococcus pneumoniae Antigen (M - Final 09/22/22 15:43 Nasal Secretion SARS-CoV-2 & FLU Antigen (Rapid) - Final Physical Exam Narrative General: Alert, oriented, no apparent distress HEENT: Atraumatic, normocephalic Eyes: Anicteric, normal conjunctiva, extraocular movements grossly intact Neck: Supple Respiratory: Seems to be somewhat diminished at the bases, normal respiratory effort Cardiovascular: Regular rate and rhythm GI: Soft, nontender, nondistended Extremities: No edema Musculoskeletal: Moving all extremities Neuro: No overt focal neurological deficits Skin: Chronic changes in lower extremities Psych: Cooperative Assessment & Plan Assessment/Plan (1) Sepsis: PLAN: Plan 72-year-old female who presented on 09/22 unresponsive brought in by EMS with a high fever and cellulitis. She resides at [facility] and was found to have a temp of 104.5. She is on opioids and was given Narcan by EMS but did not get better. In ED she was febrile, tachycardic, tachypneic with mild hypoxia of 87% on room air and lower extremity, left, was red and hot. Additionally had leukocytosis and a lactic acid of 3.5. She was given IV fluids per sepsis protocol and vancomycin and admitted for sepsis.. Has had history of recurrent cellulitis and was last admitted April 2022. Additionally he was in the ED 09/10 for cellulitis of left thigh and was sent on clinda 300 4 times daily for 10 days. #Sepsis secondary likely secondary to urinary source with secondary hematogenous spread -Was admitted to ICU social staff worker consulted -Had leukocytosis on admission of 27,000 with a high fever and lactic of 3.5 with altered mental status and received sepsis protocol for fluids. She has penicillin allergy and was started on Merrem and vancomycin. -Blood cultures with gram-negative rods and has history of ESBL, remains on merrem pending final cultures -Is improving, transfer out of ICU -09/25: Urine growing E. coli, spoke with lab regarding sensitivities and they report they are rerunning it due to an odd sensitivity pattern and that the sensitivities will be back tomorrow. 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, CKD stage IIIb, diabetic neuropathy -Glucose checks and sliding scale insulin -Lantus 8 units daily, metformin -09/25: Fasting glucose less than 100, will decrease long-acting to 60 units to avoid hypoglycemia #CKD stage IIIb -Avoid nephrotoxic agents, monitor creatinine #Paroxysmal atrial fibrillation -On Xarelto -On Cardizem #Chronic pain secondary to debility from lymphedema and morbid obesity -Takes Percocet, morphine, modafinil at home -On furosemide #Morbid obesity -BMI 50.5 kg/m?, complicates present care and placed recovery #DVT ppx: Nicol Plascencia MD Time spent in the patient's overall evaluation,decision-making process, review of diagnostic data, adjustment of management, discussion with other providers, nursing nursing and ancillary staff involved in patient's care documentation, 32 Minutes Charges/Coding Visit Charges Inpatient E&M: 46219 Subs Hosp L2
[2022-09-25] MEDS: metFORMIN (XR) 500 MG Tablet 1500 MG PO (09:46)
[2022-09-25] MEDS: Potassium Chloride Oral Tablet 20 MEQ PO ×2 (09:47→17:37)
[2022-09-25] MEDS: Pantoprazole Sodium 40 MG Tablet PO (09:48)
[2022-09-25] MEDS: Furosemide 80 MG Tablet 40 MG PO (09:54)
[2022-09-25] MEDS: Venlafaxine XR 75 MG Capsule PO (09:54)
[2022-09-25] MEDS: dilTIAZem CD 180 MG Capsule 360 MG PO (09:55)
[2022-09-25] MEDS: Spironolactone 50 MG Tablet PO (09:55)
[2022-09-25] MEDS: morphine SR 15 MG Tablet 30 MG PO ×2 (10:10→22:50)
[2022-09-25] MEDS: Modafinil 200 MG Tablet 150 MG PO (10:10)
[2022-09-25 12:35] LABS: Bedside Glucose 117 mg/dL (74-106)
[2022-09-25] MEDS: Methenamine Hippurate 1 GM Tablet 0.5 GM PO ×2 (13:03→22:52)
[2022-09-25] MEDS: Insulin Glargine-YFGN 100 UNIT/ML Pen 6 UNIT SC (13:04)
--- NOTE | 2022-09-25 16:08 | CHAPLAIN ---
Type of Pastoral Visit _x__ Initial Visit ___ Follow-up Visit ___ On-call Visit ___ General Patient Visit ___ Spiritual Assessment ___ Family Conference ___ Bereavement ___ Rapid Response ___ Code Blue ___ Other (describe below) Pastoral Care Referral From _x__ Patient ___ Family ___ Nurse ___ Physician ___ Inside Sales Territory Manager ___ Musculoskeletal Physiotherapist ___ Other (describe below) Sacrament/Intervention _x__ Active listening ___ Anointing ___ Roman Catholic ___ Bereavement ___ Communion ___ Trini exploration ___ _x__ Life review _x__ Prayer ___ Reconciliation ___ Sacrament of Sick _x__ Supportive presence ___ Wedding ___ Other (describe below) Pastoral Comments patient has been seen in previous admissions; pt gives update on her life and her living arrangements; pt speaks of her granddaughter which gives her nancy; pt admits that she has persevered through years of health issues and is still making it through; pt welcomes presence and prayer for spiritual care support
[2022-09-25] MEDS: Rivaroxaban 15 MG Tablet PO (17:37)
[2022-09-25 22:40] LABS: Bedside Glucose 110 mg/dL (74-106)
[2022-09-25] MEDS: Fluticasone 0.05% 1 SPRAY NASAL.SRY NASAL (22:50)
[2022-09-25] MEDS: Tolterodine Tartrate 2 MG CAP.SA PO (22:51)
[2022-09-25] MEDS: Atorvastatin Calcium 10 MG Tablet PO (22:51)
[2022-09-25] MEDS: Pramipexole Di-HCl 0.25 MG Tablet PO (22:52)
[2022-09-25 23:35] LABS: Bedside Glucose 129 mg/dL (74-106)
[2022-09-26] VITALS (7 sets, daily range): BP systolic 118–138; BP diastolic 63–78; PULSE 60–76; RESP 14–18; TEMP 36.2–37; O2SAT 91–98; BMI 51.2
[2022-09-26 06:01] LABS: Bedside Glucose 101 mg/dL (74-106)
[2022-09-26 06:59] LABS: Anion Gap 6 (5-15); BUN 13 mg/dL (7-18); BUN/Creat Ratio 20.2 RATIO (10-20); Calcium,Total 8.7 mg/dL (8.5-10.1); Chloride 108 mmol/L (98-107); Creatinine, Serum 0.64 mg/dL (0.55-1.02); EST Glomerular Filtration Rate 96 mL/min (>60); Est Glom Filt Rate - Afr Amer 116 mL/min (>60); Estimated Creatinine Clearance 35.45 ml/min; Glucose 88 mg/dL (74-106); Potassium 4.3 mmol/L (3.5-5.1); Sodium Level 137 mmol/L (136-145)
[2022-09-26 07:00] LABS: Absolute Lymphocyte Count 1.21 X10^3/uL (0.83-4.51); Absolute Neutrophil Count 3.4 X10^3/uL (2.0-7.7); Basophil# 0.03 X10^3/uL; Basophil% 0.6 % (0-1); Eosinophil# 0.14 X10^3/uL; Eosinophils% 2.7 % (0-5); Hematocrit 35.5 % (37-47); Hemoglobin 11.7 g/dL (12.0-15.0); Lymphocyte # 1.21 X10^3/ul (0.83-4.51); Mean Corpuscular Hgb 30.2 pg (27.0-32.0); Mean Corpuscular Volume 91.7 fL (81-99); Mean Platelet Vol. 9.5 fl (6.2-12.0); Monocyte# 0.43 X10^3/uL; Monocyte% 8.2 % (0-10); NRBC Flagged by Analyzer 0 % (0-5); Neutrophil # 3.44 X10^3/uL (2.7-7.7); Neutrophil % 65.3 % (47-70); Platelet Count 159 K/mm3 (150-450); RBC Distribution Width CV 13.8 % (11.6-14.6); RBC Distribution Width SD 46.1 fl (35.1-43.9); Red Blood Count 3.87 M/mm3 (4.2-5.4); White Blood Count 5.3 K/mm3 (4.4-11.0)
[2022-09-26] MEDS: Budesonide Respules 0.5 MG/2 ML AMPUL.NEB. INHALATION (07:28)
[2022-09-26] MEDS: Pantoprazole Sodium 40 MG Tablet PO (09:48)
[2022-09-26] MEDS: Furosemide 80 MG Tablet 40 MG PO (09:48)
[2022-09-26] MEDS: Venlafaxine XR 75 MG Capsule PO (09:48)
[2022-09-26] MEDS: dilTIAZem CD 180 MG Capsule 360 MG PO (09:48)
[2022-09-26] MEDS: Potassium Chloride Oral Tablet 20 MEQ PO ×2 (09:49→17:32)
[2022-09-26] MEDS: metFORMIN (XR) 500 MG Tablet 1500 MG PO (09:49)
[2022-09-26] MEDS: Spironolactone 50 MG Tablet PO (09:49)
[2022-09-26] MEDS: Modafinil 200 MG Tablet 150 MG PO (09:57)
[2022-09-26] MEDS: morphine SR 15 MG Tablet 30 MG PO (09:57)
[2022-09-26 12:01] LABS: Bedside Glucose 146 mg/dL (74-106)
[2022-09-26] MEDS: Methenamine Hippurate 1 GM Tablet 0.5 GM PO (12:15)
[2022-09-26] MEDS: Insulin Glargine-YFGN 100 UNIT/ML Pen 6 UNIT SC (12:17)
--- NOTE | 2022-09-26 13:41 | CON.PCM.ID_ITS ---
Assessment & Plan Assessment/Plan (1) Infection due to ESBL-producing Escherichia coli: (2) Bacteremia due to Gram-negative bacteria: PLAN: ESBL ecoli bacteremia from uti - on mike, will change to erta for dose x1, then d/c to ECF with 5 more days abx. Wrote rx. Midline in place. Will follow as needed. Thank you, d/w family service caseworker. Increased dose of methenamine to help with prevention given recurrent infections. (3) Acute encephalopathy: HPI Consult Data Date of Consult: 09/26/22 HPI Narrative Reason for Consultation: bacteremia HPI Narrative: SANDY ORONA, is a 72 F ECF resident with frequent uti (monthly on average), presented 09/22 with sudden onset fever, confusion, encephalopathy. Admitted on vanc and meropenem. Now feeling better, no fever, no abd pain, no dysuria. Midline placed. Full ROS performed and neg except as noted above. [facility] Medical History Anemia Anxiety and depression Arthritis Asthma Back pain Benign hypertension Bilateral lower extremity edema BiPAP (biphasic positive airway pressure) dependence Cholelithiasis Chronic acquired lymphedema Chronic back pain Chronic malnutrition Chronic stasis dermatitis of left lower extremity COPD (chronic obstructive pulmonary disease) Decreased pedal pulses Depression Diabetic ulcer of left foot Diabetic ulcer of right foot Diabetic ulcer of toe of left foot DVT (deep venous thrombosis) Elephantiasis Hammertoe of left foot High cholesterol History of edema History of kidney stones History of pain when walking History of stress test HLD (hyperlipidemia) Hoarseness Hypertension Increased BMI Insulin dependent diabetes mellitus Leg cramps Localized edema MRSA infection Nonhealing ulcer of left lower extremity with fat layer exposed Nonhealing ulcer of right lower extremity with fat layer exposed [facility] resident On home oxygen therapy RILEY (obstructive sleep apnea) PAF (paroxysmal atrial fibrillation) Peripheral neuropathy Renal lithiasis Rheumatic fever RLS (restless legs syndrome) Seasonal allergies Shortness of breath on exertion Type 2 diabetes mellitus Type 2 diabetes mellitus with diabetic polyneuropathy Ulcer of left foot with fat layer exposed Ulcer of right foot with fat layer exposed Venous insufficiency Venous stasis ulcer of right thigh with fat layer exposed Venous ulcer of left lower extremity with varicose veins Venous ulcer of right lower extremity with varicose veins Home Medications fluticasone propionate 50 mcg/actuation nasal spray,suspension 1 spray QHS allergies 02/16/14 [History Last Taken 05/24/22] furosemide 80 mg tablet 40 mg PO DAILY EDEMA 05/07/19 [History Last Taken 05/25/22] acetaminophen 325 mg tablet 650 mg PO Q4H PRN Pain 09/09/21 [History Last Taken 05/23/22] bisacodyl 10 mg rectal suppository 10 mg WV DAILY PRN Constipation 09/09/21 [History Last Taken Unknown] budesonide 0.5 mg/2 mL suspension for nebulization 0.5 mg inhalation BID sob 09/09/21 [History Last Taken Unknown] diltiazem HCl 360 mg capsule,24 hr,extended release 360 mg PO DAILY 09/09/21 [History Last Taken 05/25/22] ferrous sulfate 325 mg (65 mg iron) tablet (iron) 325 mg PO BID supplement 09/09/21 [History Last Taken 05/25/22] multivitamin 1 tab PO DAILY supplement 09/09/21 [History Last Taken 05/25/22] omeprazole 40 mg capsule,delayed release 40 mg PO DAILY gerd 09/09/21 [History Last Taken 05/25/22] oxybutynin chloride 5 mg tablet 5 mg PO QHS bladder spasms 09/09/21 [History Last Taken 05/24/22] spironolactone 50 mg tablet 50 mg PO DAILY 09/09/21 [History Last Taken 05/25] insulin glargine 100 unit/mL (3 mL) subcutaneous pen (Basaglar KwikPen U-100 Insulin) 8 unit subcut DAILY diabetes 05/25/22 [History Last Taken 05/25/22] metformin 500 mg tablet,extended release 24 hr 1,500 mg PO DAILY DIABETES 05/25/22 [History Last Taken 05/25/22] oxybutynin chloride 15 mg tablet,extended release 24 hr 15 mg PO DAILY BLADDER SPASMS 05/25/22 [History Last Taken 05/25/22] potassium chloride 20 mEq tablet,extended release(part/cryst) 20 meq PO BID SUPPLEMENT 05/25/22 [History Last Taken 05/25/22] venlafaxine 75 mg capsule,extended release 24 hr 75 mg PO DAILY 05/25/22 [His tory Last Taken 05/25/22] morphine 30 mg tablet,extended release 30 mg PO BID PAIN 3 days #6 tabs 05/28/22 [Rx Last Taken Unknown] oxycodone-acetaminophen 5 mg-325 mg tablet 1 tab PO Q12H PRN Pain 3 days #6 tabs 05/28/22 [Rx Last Taken Unknown] pregabalin 150 mg capsule 150 mg PO BID PAIN 3 days #6 caps 05/28/22 [Rx Last Taken Unknown] rivaroxaban 15 mg tablet (Xarelto) 15 mg PO DINNER 30 days #0 tabs 05/28/22 [Rx Last Taken Unknown] atorvastatin 10 mg tablet (Lipitor) 10 mg PO QHS 09/09/22 [History Last Taken Unknown] meclizine 25 mg tablet 25 mg PO TID PRN Vertigo 09/09/22 [History Last Taken Unknown] modafinil 200 mg tablet 150 mg PO DAILY 09/09/22 [History Last Taken Unknown] pramipexole 0.25 mg tablet (Mirapex) 0.25 mg PO QHS 09/09/22 [History Last Taken Unknown] ertapenem 1 gram solution for injection 1 g IV Q24 5 days #5 ea 09/26/22 [Rx Last Taken Unknown] methenamine hippurate 1 gram tablet 1 g PO BID 90 days #180 tabs 09/26/22 [Rx Last Taken Unknown] Allergy/AdvReac Type Severity Reaction Status Date / Time aspirin Allergy Hives Verified 05/25/22 14:13 latex Allergy Rash Verified 05/25/22 14:13 Penicillins Allergy Hives Verified 05/25/22 14:13 Sulfa (Sulfonamide Allergy Hives Verified 05/25/22 14:13 Antibiotics) Family History Mother Heart disease Father Heart disease Surgical History History of cardiac catheterization History of ERCP History of hysterectomy Hx of dilation and curettage Hx of toe surgery S/P laparoscopic cholecystectomy Social History housing: pen[facility]entiary Smoking Status: Never smoker alcohol intake: never substance use type: does not use Physical Exam Const alert, oriented x3 and no apparent distress General Appearance: cooperative HEENT normocephalic and head/scalp atraumatic Eyes PERRL and EOMs intact bilaterally Neck supple and No nodes Resp normal air movement and clear to auscultation bilaterally Cardio regular rate and regular rhythm GI soft to palpation, non-tender and non-distended Extremity General Extremity: Negative for edema Skin no rashes or lesions noted Neuro CN's II-XII intact bilaterally Lab / Micro Data Attestation: I reviewed the patient's lab results. Result Diagrams: 09/26/22 06:47 09/26/22 05:45 Labs: Laboratory Results - last 24 hr 09/25/22 17:35: POC Glucose 110 H 09/25/22 22:49: POC Glucose 129 H 09/26/22 04:56: POC Glucose 101 09/26/22 05:45: WBC Cancelled, Corrected WBC Cancelled, RBC Cancelled, Hgb Cancelled, Hct Cancelled, MCV Cancelled, MCH Cancelled, MCHC Cancelled, RDW Std Deviation Cancelled, RDW Coeff of Melissa Cancelled, Plt Count Cancelled, MPV Cancelled, Immature Gran % (Auto) Cancelled, Neut % (Auto) Cancelled, Lymph % (Auto) Cancelled, [place] % (Auto) Cancelled, Eos % (Auto) Cancelled, Baso % (Auto) Cancelled, Absolute Neuts (auto) Cancelled, Absolute Lymphs (auto) Cancelled, Total Counted Cancelled, Neutrophils % (Manual) Cancelled, Band Neutrophils % Cancelled, Lymphocytes % (Manual) Cancelled, Monocytes % (Manual) Cancelled, Eosinophils % (Manual) Cancelled, Basophils % (Manual) Cancelled, Metamyelocytes % Cancelled, Myelocytes % Cancelled, Promyelocytes % Cancelled, Blast Cells % Cancelled, Plasma Cell % (Manual) Cancelled, Other Cells % Cancelled, Nucleated RBC % Cancelled, Nucleated RBCs/100 WBC Cancelled, Differential Comment Canc elled, Diff Path Review Cancelled, Hypersegmented Neuts Cancelled, Atypical Lymphocytes Cancelled, Reactive Lymphocytes Cancelled, Smudge Cells Cancelled, Toxic Granulation Cancelled, Toxic Vacuolation Cancelled, Dohle Bodies Cancelled, Pratibha Rods Cancelled, Platelet Estimate Cancelled, Plt Morphology Comment Cancelled, RBC Morphology Cancelled, Polychromasia Cancelled, Hypochromasia Cancelled, Poikilocytosis Cancelled, Basophilic Stippling Cancelled, Anisocytosis Cancelled, Microcytosis Cancelled, Macrocytosis Cancelled, Spherocytes Cancelled, Sickle Cells Cancelled, Target Cells Cancelled, Tear Drop Cells Cancelled, Ovalocytes Cancelled, Stomatocytes Cancelled, Christy-Kiskimere Bodies Cancelled, Newton Cells Cancelled, Bite Cells Cancelled, Crenated Cell Cancelled, Acanthocytes (Spur) Cancelled, Rouleaux Cancelled, Schistocytes Cancelled 09/26/22 05:45: Sodium 137, Potassium 4.3, Chloride 108 H, Carbon Dioxide 23.0, Anion Gap 6, BUN 13, Creatinine 0.64, Estim Creat Clear Calc 35.45, Est GFR (MDRD) Af Amer 116, Est GFR (MDRD) Non-Af 96, BUN/Creatinine Ratio 20.2 H, Glucose 88, Calcium 8.7 09/26/22 06:47: WBC 5.3, RBC 3.87 L, Hgb 11.7 L, Hct 35.5 L, MCV 91.7, MCH 30.2, MCHC 33.0, RDW Std Deviation 46.1 H, RDW Coeff of Melissa 13.8, Plt Count 159, MPV 9.5, Immature Gran % (Auto) 0.200, Neut % (Auto) 65.3, Lymph % (Auto) 23.0, [place] % (Auto) 8.2, Eos % (Auto) 2.7, Baso % (Auto) 0.6, Absolute Neuts (auto) 3.4, Absolute Lymphs (auto) 1.21, Nucleated RBC % 0 09/26/22 11:28: POC Glucose 146 H Micro: Microbiology 09/22/22 14:15 Urine Catheter - Catheter Urine Culture - Final ESBL Escherichia coli 09/22/22 13:30 Blood Culture (Wb) - Left Wrist Blood Culture - Final Escherichia coli
--- NOTE | 2022-09-26 14:33 | TREXTCAR_ITS ---
Diet Diet Order/Speech Therapy: 09/23/22 09:31 Diet: Cardiac: Calorie-Controlled Is pt able to select menu?: No How many daily calories?: 1800 calorie Routine Orders/Code Status Suppository Type: Dulcolax 10mg Suppository Frequency: Daily PRN Routine Lab Work: - (Glucose checks for diabetes) Code Status: Full Code Wound(s) Left great toe: Wound Type: Amputation Left foot 2nd digit: Wound Type: Stasis Ulcer Right great toe: Wound Type: Abrasion Therapies Physical Therapy: Eval and Treat Occupational Therapy: Eval and Treat Problem/Diagnosis (1) Infection due to ESBL-producing Escherichia coli: Status: Acute Code(s): A49.8 - Other bacterial infections of unspecified site; Z16.12 - Extended spectrum beta lactamase (ESBL) resistance (2) Bacteremia due to Gram-negative bacteria: Status: Acute Code(s): R78.81 - Bacteremia (3) Acute encephalopathy: Status: Acute Code(s): G93.40 - Encephalopathy, unspecified (4) Sepsis: Status: Acute Code(s): A41.9 - Sepsis, unspecified organism Plan #Sepsis secondary likely secondary to urinary source with secondary hematogenous spread #Acute metabolic encephalopathy-Improving #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 She resides at [facility] and was found to have a temp of 104.5. She is on opioids and was given Narcan by EMS but did not get better. In ED she was febrile, tachycardic, tachypneic with mild hypoxia of 87% on room air and lower extremity, left, was red and hot. Additionally had leukocytosis and a lactic acid of 3.5. She was given IV fluids per sepsis protocol and vancomycin and admitted for sepsis. Has had history of recurrent cellulitis and was last admitted April 2022. Additionally he was in the ED 09/10 for cellulitis of left thigh and was sent on clinda 300 4 times daily for 10 days. She was admitted to the ICU and plate furnace operator consulted. Due to penicillin allergy she was placed on meropenem and vancomycin and urine culture as well as blood culture were positive for E. coli, she is maintained on meropenem while awaiting sensitivities and it was deemed that her sepsis was secondary to UTI. Treated back as ESBL and ID consulted and midline placed, she will need 5 more days of ertapenem through midline that was placed. Recommend continuing BiPAP nightly and as needed. Allergies/Procedures Done in Hospital Allergies aspirin Allergy (Verified 05/25/22 14:13) Hives latex Allergy (Verified 05/25/22 14:13) Rash Penicillins Allergy (Verified 05/25/22 14:13) Hives Sulfa (Sulfonamide Antibiotics) Allergy (Verified 05/25/22 14:13) Hives Procedures: - (Brain CT, venous Doppler) Type of Care/Length of Stay Estimated LOS: Convalescent Care Less Than 30 days Type of Care Needed: Skilled Rehab Potential: Fair Prognosis: Fair Additional Orders/Day of Discharge Day of Discharge: 09/26/22 Dietary and Speech Recommendations Dietitian Recommendations/Changes: Continue 1800 CCD/Cardiac with texture/consistency per DIRECTOR OF UNDERGRADUATE ADMISSIONS to manage medical conditions. Discharge Plan Admission Admit Date/Time: 09/22/22 15:53 Primary Reason for Your Visit: Altered mental status Attending Provider: Georgina Plascencia Primary Care Provider: Efren Argueta Consulting Providers: Shayne Elder ; Diane Brown ; Sammy Andujar ; Steve Nichols ; Shoaib Samaniego ; Swapnil Mares ; Eleni Diaz CEMENTER MACHINE APPLICATOR ; Michael Galan Instructions Patient Instructions: Urinary Tract Infections in Women Additional Instructions / Restrictions: DISCHARGE INSTRUCTIONS PLEASE READ -You were diagnosed with a urinary tract infection that went to your blood. Due to it being resistant to multiple antibiotics you will be discharged with a midline IV. You will get ertapenem 1 dose prior to leaving and then 5 more days of ertapenem at [facility] -Continue BiPAP nightly and as needed -Your methenamine was increased to try to prevent urinary tract infections -Your insulin was decreased to 6 units daily due to dropping blood sugars -Please call your primary care provider's office upon discharge to schedule a hospital follow up within 1 week. -For any concerning signs or symptoms please call 911 or proceed to the nearest emergency department Discharge Orders/Prescriptions Prescriptions: New methenamine hippurate 1 gram Tablet 1 g PO BID 90 Days Qty: 180 3RF ertapenem 1 gram Recon Soln 1 g IV Q24 5 Days Qty: 5 0RF Rx Instructions: dx: esbl ecoli bacteremia Continued fluticasone propionate 1 SPRAY spray,suspension 1 spray NASAL QHS furosemide 80 MG tablet 40 mg PO DAILY diltiazem HCl 360 mg Capsule,Extended Release 24 Hr 360 mg PO DAILY ferrous sulfate [iron] 325 mg (65 mg iron) Tablet 325 mg PO BID omeprazole 40 mg Capsule,Delayed Release(Dr/Ec) 40 mg PO DAILY spironolactone 50 mg Tablet 50 mg PO DAILY multivitamin Tablet 1 tab PO DAILY acetaminophen 325 mg Tablet 650 mg PO Q4H PRN (Reason: Pain) bisacodyl 10 mg Suppository 10 mg [place] DAILY PRN (Reason: Constipation) budesonide 0.5 mg/2 mL Suspension For Nebulization 0.5 mg INHALATION BID oxybutynin chloride 5 mg Tablet 5 mg PO QHS venlafaxine 75 mg capsule,extended release 24hr 75 mg PO DAILY potassium chloride 20 mEq tablet,ER particles/crystals 20 meq PO BID metformin 500 mg Tablet Extended Release 24 Hr 1,500 mg PO DAILY Xarelto 15 mg Tablet 15 mg PO DINNER 30 Days Qty: 0 0RF atorvastatin [Lipitor] 10 mg Tablet 10 mg PO QHS meclizine 25 mg Tablet 25 mg PO TID PRN (Reason: Vertigo) pramipexole [Mirapex] 0.25 mg Tablet 0.25 mg PO QHS morphine 30 mg tablet extended release 30 mg PO BID 3 Days Qty: 6 0RF modafinil 200 mg tablet 150 mg PO DAILY 2 Days Qty: 3 0RF Changed insulin glargine [Basaglar KwikPen U-100 Insulin] 100 unit/mL (3 mL) insulin pen 6 unit SUBCUT DAILY Qty: 30 0RF Discontinued methenamine hippurate 1 gram tablet 0.5 g PO BID oxybutynin chloride 15 mg tablet extended release 24hr 15 mg PO DAILY oxycodone-acetaminophen 5-325 mg tablet 1 tab PO Q12H PRN (Reason: Pain) 3 Days Qty: 6 0RF pregabalin 150 mg capsule 150 mg PO BID 3 Days Qty: 6 0RF clindamycin HCl 300 mg capsule 300 mg PO 4X/DAY 10 Days Qty: 40 0RF Referrals / Follow Up: Efren Argueta DO [Primary Care Provider] - Within 1 Week Disposition Disposition (needs filled in before D/C Order can be placed): Longterm Facility
--- NOTE | 2022-09-26 15:01 | DS.PCM_ITS ---
Providers Date of Admission: 09/22/22 Date of Discharge: 09/26/22 Primary Care Physician: Dr. Efren Argueta, Consultations 09/22/22 16:44 Consult: Horse Show Manager / Pulmonary Medicine Routine Consulting Provider: [facility] Reason for Consult: SEPSIS, CELLULITIS EMERGENT Consult: No MD Notified: Yes Date Notified: 09/22/22 Time Notified: 16:03 Method of Notification: Text 09/25/22 12:20 Consult: Infectious Disease Routine Consulting Provider: Michael Galan Reason for Consult: bld cx multidrug resistant ecoli, likely needs iv abx, ready for d/c tomm EMERGENT Consult: No MD Notified: Yes Date Notified: 09/25/22 Time Notified: 13:08 Method of Notification: Text Reason For Visit: SEPSIS Diagnosis Discharge Diagnosis (1) Infection due to ESBL-producing Escherichia coli: Status: Acute Code(s): A49.8 - Other bacterial infections of unspecified site; Z16.12 - Extended spectrum beta lactamase (ESBL) resistance (2) Bacteremia due to Gram-negative bacteria: Status: Acute Code(s): R78.81 - Bacteremia (3) Acute encephalopathy: Status: Acute Code(s): G93.40 - Encephalopathy, unspecified (4) Sepsis: Status: Acute Code(s): A41.9 - Sepsis, unspecified organism Plan #Sepsis secondary likely secondary to urinary source with secondary hematogenous spread #Acute metabolic encephalopathy-Improving #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, CKD stage IIIb, diabetic neuropathy #CKD stage IIIb #Paroxysmal atrial fibrillation #Chronic pain secondary to debility from lymphedema and morbid obesity #Morbid obesity Medications at Discharge Home Medications fluticasone propionate 50 mcg/actuation nasal spray,suspension 1 spray QHS allergies 02/16/14 furosemide 80 mg tablet 40 mg PO DAILY EDEMA 05/07/19 acetaminophen 325 mg tablet 650 mg PO Q4H PRN Pain 09/09/21 bisacodyl 10 mg rectal suppository 10 mg [place] DAILY PRN Constipation 09/09/21 budesonide 0.5 mg/2 mL suspension for nebulization 0.5 mg inhalation BID sob 09/09/21 diltiazem HCl 360 mg capsule,24 hr,extended release 360 mg PO DAILY 09/09/21 ferrous sulfate 325 mg (65 mg iron) tablet (iron) 325 mg PO BID supplement 0 09/09/21 multivitamin 1 tab PO DAILY supplement 09/09/21 omeprazole 40 mg capsule,delayed release 40 mg PO DAILY gerd 09/09/21 oxybutynin chloride 5 mg tablet 5 mg PO QHS bladder spasms 09/09/21 spironolactone 50 mg tablet 50 mg PO DAILY 09/09/21 metformin 500 mg tablet,extended release 24 hr 1,500 mg PO DAILY DIABETES 05/25/22 potassium chloride 20 mEq tablet,extended release(part/cryst) 20 meq PO BID SUPPLEMENT 05/25/22 venlafaxine 75 mg capsule,extended release 24 hr 75 mg PO DAILY 05/25/22 rivaroxaban 15 mg tablet (Xarelto) 15 mg PO DINNER 30 days #0 tabs 05/28/22 atorvastatin 10 mg tablet (Lipitor) 10 mg PO QHS 09/09/22 meclizine 25 mg tablet 25 mg PO TID PRN Vertigo 09/09/22 pramipexole 0.25 mg tablet (Mirapex) 0.25 mg PO QHS 09/09/22 ertapenem 1 gram solution for injection 1 g IV Q24 5 days #5 ea 09/26/22 insulin glargine 100 unit/mL (3 mL) subcutaneous pen (Basaglar KwikPen U-100 Insulin) 6 unit (0.06 mL) subcut DAILY diabetes #30 mL 09/26/22 methenamine hippurate 1 gram tablet 1 g PO BID 90 days #180 tabs 09/26/22 modafinil 200 mg tablet 150 mg PO DAILY 2 days #3 tabs 09/26/22 morphine 30 mg tablet,extended release 30 mg PO BID PAIN 3 days #6 tabs 09/26/22 Hospital Course Procedures - (Echo, venous studies, ct head) Summary of Care Provided Minutes Spent on Discharge: 36 Hospital Course: 72-year-old female with a history of type 2 diabetes mellitus, DVT, ESBL who presented on 09/22 unresponsive brought in by EMS with a high fever and cellulitis. She resides at [facility] and was found to rice ve a temp of 104.5. She is on opioids and was given Narcan by EMS but did not get better. In ED she was febrile, tachycardic, tachypneic with mild hypoxia of 87% on room air and lower extremity, left, was red and hot. Additionally had leukocytosis and a lactic acid of 3.5. She was given IV fluids per sepsis protocol and vancomycin and admitted for sepsis. Has had history of recurrent cellulitis and was last admitted April 2022. Additionally he was in the ED 09/10 for cellulitis of left thigh and was sent on clinda 300 4 times daily for 10 days. She was admitted to the ICU and water manager consulted. Due to penicillin allergy she was placed on meropenem and vancomycin and urine culture as well as blood culture were positive for E. coli, she is maintained on meropenem while awaiting sensitivities and it was deemed that her sepsis was secondary to UTI. Treated back as ESBL and ID consulted and midline placed, she will need 5 more days of ertapenem through midline that was placed. Recommend continuing BiPAP nightly and as needed. On day of discharge reports overall still feeling better, no other new complaints voiced. Discharge instructions as followed: -You were diagnosed with a urinary tract infection that went to your blood.? Due to it being resistant to multiple antibiotics you will be discharged with a midline IV.? You will get ertapenem 1 dose prior to leaving and then 5 more days of ertapenem at [facility] -Continue BiPAP nightly and as needed -Your methenamine was increased to try to prevent urinary tract infections -Your insulin was decreased to 6 units daily due to dropping blood sugars -Please call your primary care provider's office upon discharge to schedule a hospital follow up within 1 week. -For any concerning signs or symptoms please call 911 or proceed to the nearest emergency department Physical Exam Narrative General: Alert, oriented, no apparent distress HEENT: Atraumatic, normocephalic Eyes: Anicteric, normal conjunctiva, extraocular movements grossly intact Neck: Supple Respiratory: Seems to be somewhat diminished at the bases, normal respiratory effort Cardiovascular: Regular rate and rhythm GI: Soft, nontender, nondistended Extremities: No edema Musculoskeletal: Moving all extremities Neuro: No overt focal neurological deficits Skin: Chronic changes in lower extremities Psych: Cooperative Weight / BMI Weight Weight: 119 kg Body Mass Index (BMI) 51.2 ABG / Lab / Microbiology Data Result Diagrams: 09/26/22 06:47 09/26/22 05:45 Laboratory: Laboratory Results - last 24 hr 09/25/22 17:35: POC Glucose 110 H 09/25/22 22:49: POC Glucose 129 H 09/26/22 04:56: POC Glucose 101 09/26/22 05:45: WBC Cancelled, Corrected WBC Cancelled, RBC Cancelled, Hgb Cancelled, Hct Cancelled, MCV Cancelled, MCH Cancelled, MCHC Cancelled, RDW Std Deviation Cancelled, RDW Coeff of Melissa Cancelled, Plt Count Cancelled, MPV Cancelled, Immature Gran % (Auto) Cancelled, Neut % (Auto) Cancelled, Lymph % (Auto) Cancelled, [place] % (Auto) Cancelled, Eos % (Auto) Cancelled, Baso % (Auto) Cancelled, Absolute Neuts (auto) Cancelled, Absolute Lymphs (auto) Cancelled, Total Counted Cancelled, Neutrophils % (Manual) Cancelled, Band Neutrophils % Cancelled, Lymphocytes % (Manual) Cancelled, Monocytes % (Manual) Cancelled, Eosinophils % (Manual) Cancelled, Basophils % (Manual) Cancelled, Metamyelocytes % Cancelled, Myelocytes % Cancelled, Promyelocytes % Cancelled, Blast Cells % Cancelled, Plasma Cell % (Manual) Cancelled, Other Cells % Cancelled, Nucleated RBC % Cancelled, Nucleated RBCs/100 WBC Cancelled, Differential Comment Cancelled, Diff Path Review Cancelled, Hypersegmented Neuts Cancelled, Atypical Lymphocytes Cancelled, Reactive Lymphocytes Cancelled, Smudge Cells Cancelled, Toxic Granulation Cancelled, Toxic Vacuolation Cancelled, Dohle Bodies Cancell ed, Pratibha Rods Cancelled, Platelet Estimate Cancelled, Plt Morphology Comment Cancelled, RBC Morphology Cancelled, Polychromasia Cancelled, Hypochromasia Cancelled, Poikilocytosis Cancelled, Basophilic Stippling Cancelled, Anisocytosis Cancelled, Microcytosis Cancelled, Macrocytosis Cancelled, Sphero cytes Cancelled, Sickle Cells Cancelled, Target Cells Cancelled, Tear Drop Cells Cancelled, Ovalocytes Cancelled, Stomatocytes Cancelled, Christy-Mena Bodies Cancelled, [place] Cells Cancelled, Bite Cells Cancelled, Crenated Cell Cancelled, Acanthocytes (Spur) Cancelled, Rouleaux Cancelled, Schistocytes Cancelled 09/26/22 05:45: Sodium 137, Potassium 4.3, Chloride 108 H, Carbon Dioxide 23.0, Anion Gap 6, BUN 13, Creatinine 0.64, Estim Creat Clear Calc 35.45, Est GFR (MDRD) Af Amer 116, Est GFR (MDRD) Non-Af 96, BUN/Creatinine Ratio 20.2 H, Glucose 88, Calcium 8.7 09/26/22 06:47: WBC 5.3, RBC 3.87 L, Hgb 11.7 L, Hct 35.5 L, MCV 91.7, MCH 30.2, MCHC 33.0, RDW Std Deviation 46.1 H, RDW Coeff of Melissa 13.8, Plt Count 159, MPV 9.5, Immature Gran % (Auto) 0.200, Neut % (Auto) 65.3, Lymph % (Auto) 23.0, [place] % (Auto) 8.2, Eos % (Auto) 2.7, Baso % (Auto) 0.6, Absolute Neuts (auto) 3.4, Absolute Lymphs (auto) 1.21, Nucleated RBC % 0 09/26/22 11:28: POC Glucose 146 H Microbiology: Microbiology 09/22/22 14:15 Urine Catheter - Catheter Urine Culture - Final ESBL Escherichia coli 09/22/22 13:30 Blood Culture (Wb) - Left Wrist Blood Culture - Final Escherichia coli 09/22/22 14:30 Blood Culture (Wb) - Other Blood Culture - Preliminary No growth in 48 hours. 09/22/22 14:15 Urine Catheter - [place] Legionella Antigen - Final 09/22/22 14:15 Urine Catheter - [place] Streptococcus pneumoniae Antigen (M - Final 09/22/22 15:43 Nasal Secretion SARS-CoV-2 & FLU Antigen (Rapid) - Final D/C Instructions Discharge Diet: 2000 Calorie Control Diet Meaningful Use Info Meaningful Use Diagnoses (Choose all that apply): None applicable Discharge Plan Admission Admit Date/Time: 09/22/22 15:53 Primary Reason for Your Visit: Altered mental status Attending Provider: Georgina Plascencia Primary Care Provider: Efren Argueta Consulting Providers: Shayne Elder ; Diane Brown ; Sammy Andujar ; Steve Vera ; Shoaib Samaniego ; Swapnil Mares ; Eleni Diaz NP ; Michael Galan Instructions Patient Instructions: Urinary Tract Infections in Women Additional Instructions / Restrictions: DISCHARGE INSTRUCTIONS PLEASE READ -You were diagnosed with a urinary tract infection that went to your blood. Due to it being resistant to multiple antibiotics you will be discharged with a midline IV. You will get ertapenem 1 dose prior to leaving and then 5 more days of ertapenem at [facility] -Continue BiPAP nightly and as needed -Your methenamine was increased to try to prevent urinary tract infections -Your insulin was decreased to 6 units daily due to dropping blood sugars -Please call your primary care provider's office upon discharge to schedule a hospital follow up within 1 week. -For any concerning signs or symptoms please call 911 or proceed to the nearest emergency department Discharge Orders/Prescriptions Prescriptions: New methenamine hippurate 1 gram Tablet 1 g PO BID 90 Days Qty: 180 3RF ertapenem 1 gram Recon Soln 1 g IV Q24 5 Days Qty: 5 0RF Rx Instructions: dx: esbl ecoli bacteremia Continued fluticasone propionate 1 SPRAY spray,suspension 1 spray NASAL QHS furosemide 80 MG tablet 40 mg PO DAILY diltiazem HCl 360 mg Capsule,Extended Release 24 Hr 360 mg PO DAILY ferrous sulfate [iron] 325 mg (65 mg iron) Tablet 325 mg PO BID omeprazole 40 mg Capsule,Delayed Release(Dr/Ec) 40 mg PO DAILY spironolactone 50 mg Tablet 50 mg PO DAILY multivitamin Tablet 1 tab PO DAILY acetaminophen 325 mg Tablet 650 mg PO Q4H PRN (Reason: Pain) bisacodyl 10 mg Suppository 10 mg [place] DAILY PRN (Reason: Constipation) budesonide 0.5 mg/2 mL Suspension For Nebulization 0.5 mg INHALATION BID oxybutynin chloride 5 mg Tablet 5 mg PO QHS venlafaxine 75 mg capsule,extended release 24hr 75 mg PO DAILY potassium chloride 20 mEq tablet,ER particles/crystals 20 meq PO BID metformin 500 mg Tablet Extended Release 24 Hr 1,500 mg PO DAILY Xarelto 15 mg Tablet 15 mg PO DINNER 30 Days Qty: 0 0RF atorvastatin [Lipitor] 10 mg Tablet 10 mg PO QHS meclizine 25 mg Tablet 25 mg PO TID PRN (Reason: Vertigo) pramipexole [Mirapex] 0.25 mg Tablet 0.25 mg PO QHS morphine 30 mg tablet extended release 30 mg PO BID 3 Days Qty: 6 0RF modafinil 200 mg tablet 150 mg PO DAILY 2 Days Qty: 3 0RF Changed insulin glargine [Basaglar KwikPen U-100 Insulin] 100 unit/mL (3 mL) insulin pen 6 unit SUBCUT DAILY Qty: 30 0RF Discontinued methenamine hippurate 1 gram tablet 0.5 g PO BID oxybutynin chloride 15 mg tablet extended release 24hr 15 mg PO DAILY oxycodone-acetaminophen 5-325 mg tablet 1 tab PO Q12H PRN (Reason: Pain) 3 Days Qty: 6 0RF pregabalin 150 mg capsule 150 mg PO BID 3 Days Qty: 6 0RF clindamycin HCl 300 mg capsule 300 mg PO 4X/DAY 10 Days Qty: 40 0RF Referrals / Follow Up: Efren Argueta DO [Primary Care Provider] - Within 1 Week Disposition Disposition (needs filled in before D/C Order can be placed): [facility] Charges/Coding Visit Charges Inpatient E&M: 35552 Disch Hosp >30min
--- NOTE | 2022-09-26 15:26 | CASEMGMT ---
Social Work? SW notified pt of doctors intent to discharge pt back to [facility] today. [facility] up cot transportation [facility] for 5:30 pm. KRISTIN faxed all discharge orders to [facility] via [employer] and notified of discharge time. SW notified pt nurse of transport time. SW made copies of discharge orders and placed on pt chart. Sent original orders in envelope with pt upon discharge.?? Disposition: [facility], skilled, convalescent, level of care? SHARATH Kahn
[2022-09-26 17:30] LABS: Bedside Glucose 103 mg/dL (74-106)
[2022-09-26] MEDS: Rivaroxaban 15 MG Tablet PO (17:31)
== END 2022-09-26 17:49 | disposition skilled nursing facility (03) | DRG 871 ==
LOC: ED 15:54 → ICU 16:20 → MS3 09-24 11:32
PROVIDERS: Student in an Organized Health Care Education/Training Program; Admitting Provider Internal Medicine; Emergency Provider Emergency Medicine; PCP Family Medicine; Visit Provider Internal Medicine
DX: A41.51 Sepsis due to Escherichia coli [E. coli] (principal); G93.41 Metabolic encephalopathy; G92.8 Other toxic encephalopathy; Z68.43 Body mass index [BMI] 50.0-59.9, adult; L03.116 Cellulitis of left lower limb; N39.0 Urinary tract infection, site not specified; Z16.12 Extended spectrum beta lactamase (ESBL) resistance; E11.42 Type 2 diabetes mellitus with diabetic polyneuropathy; E66.01 Morbid (severe) obesity due to excess calories; Z79.4 Long term (current) use of insulin; E11.22 Type 2 diabetes mellitus with diabetic chronic kidney disease; J44.9 Chronic obstructive pulmonary disease, unspecified; I48.0 Paroxysmal atrial fibrillation; N18.32 Chronic kidney disease, stage 3b; I89.0 Lymphedema, not elsewhere classified; G47.33 Obstructive sleep apnea (adult) (pediatric); I12.9 Hypertensive chronic kidney disease with stage 1 through stage 4 chronic kidney disease, or unspecified chronic kidney disease; E78.00 Pure hypercholesterolemia, unspecified; T40.605A Adverse effect of unspecified narcotics, initial encounter; G89.4 Chronic pain syndrome; R09.02 Hypoxemia; Z20.822 Contact with and (suspected) exposure to COVID-19; Z79.51 Long term (current) use of inhaled steroids; Z79.01 Long term (current) use of anticoagulants; Z79.899 Other long term (current) drug therapy; Z88.0 Allergy status to penicillin; Z86.31 Personal history of diabetic foot ulcer
CPT/HCPCS: 36415; 36600; 70450; 71045; 80048; 80053; 80307; 81001; 82140; 82550; 82803; 82962; 83605; 83735; 84100; 84443; 85025; 85610; 85730; 87040; 87077; 87086; 87088; 87186; 87428; 87449; 93005; 93970; 94002; 94003; 94640; 94668; 97110; 97116; 97162; 97166; 97530; 97535; 97803; 99285; J2185; J7030; J7040; J7050; J7120; A4216

== ENCOUNTER 2022-10-09 09:55 | Inpatient (IN) | payer MEDICARE, MEDICAID, SELFPAY ==
[2022-10-09] VITALS (11 sets, daily range): BP systolic 84–129; BP diastolic 51–73; PULSE 72–96; RESP 12–22; TEMP 36.1–38.3; O2SAT 94–98; BMI 44.9
--- NOTE | 2022-10-09 10:21 | CT_ITS ---
STUDY: CT BRAIN WITHOUT CONTRAST REASON FOR EXAM: Female, 72 years old. Headache after trauma RADIATION DOSAGE (If Supplied By Facility): CTDIvol = ( 44.99 ) mGy, DLP = ( 925.62 ) mGycm TECHNIQUE: Transaxial CT imaging of the brain was performed without administration of intravenous contrast material. Individualized dose optimization techniques were used for this CT. COMPARISON: 09/22/2022 FINDINGS: Normal soft tissue structures. 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 Normal size ventricles and extra-axial spaces for the patient''s age. There are areas of decreased attenuation within the white matter tracts of the supratentorial brain, consistent with microvascular disease changes. Normal basal ganglia and thalami. Normal brainstem. There is mild cerebellar atrophy. There is no intracranial hemorrhage. There are no findings of an acute ischemic infarction. Normal visualized paranasal sinuses. CT/Brain/Head without Contrast IMPRESSION: Chronic involutional changes of the brain. No acute hemorrhage. No interval change Electronically Signed: Porter Womack MD at 11:45 EDT ,
--- NOTE | 2022-10-09 10:22 | EX.ED.GENINJ ---
HPI History of Present Illness Chief Complaint: Fall Narrative Narrative: Patient presents after a fall last night with a possible head injury, she was also from an ECF and was found to have platelets of 3 on blood work this morning, she was recently admitted for sepsis and her platelets were 236 just 7 days ago. She has a slight headache. She has had very slight vaginal bleeding today. No other bleeding she has no abdominal pain. She has no confusion at this time she does not feel dizzy. She has noticed some petechiae but she does not have any bleeding. No fever she did have a fever a week ago when she was here but not currently. She has a slight headache but she thinks this is secondary to the fall. She does not have shortness of breath. [facility] Medical History Anemia Anxiety and depression Arthritis Asthma Back pain Benign hypertension Bilateral lower extremity edema BiPAP (biphasic positive airway pressure) dependence Cellulitis of left foot Cholelithiasis Chronic acquired lymphedema Chronic back pain Chronic malnutrition Chronic stasis dermatitis of left lower extremity COPD (chronic obstructive pulmonary disease) Decreased pedal pulses Depression Diabetic ulcer of left foot Diabetic ulcer of right foot Diabetic ulcer of toe of left foot DVT (deep venous thrombosis) Elephantiasis Hammertoe of left foot High cholesterol History of edema History of kidney stones History of pain when walking History of stress test HLD (hyperlipidemia) Hoarseness Hypertension Increased BMI Insulin dependent diabetes mellitus Leg cramps Localized edema MRSA infection Nonhealing ulcer of left lower extremity with fat layer exposed Nonhealing ulcer of right lower extremity with fat layer exposed 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 On home oxygen therapy RILEY (obstructive sleep apnea) PAF (paroxysmal atrial fibrillation) Peripheral neuropathy Renal lithiasis Rheumatic fever RLS (restless legs syndrome) Seasonal allergies Shortness of breath on exertion Type 2 diabetes mellitus Type 2 diabetes mellitus with diabetic polyneuropathy Ulcer of left foot with fat layer exposed Ulcer of right foot with fat layer exposed Venous insufficiency Venous stasis ulcer of right thigh with fat layer exposed Venous ulcer of left lower extremity with varicose veins Venous ulcer of right lower extremity with varicose veins Home Medications fluticasone propionate 50 mcg/actuation nasal spray,suspension 1 spray QHS allergies 02/16/14 [History Last Taken 10/08/22] furosemide 80 mg tablet 40 mg PO DAILY EDEMA 05/07/19 [History Last Taken 10/09/22] acetaminophen 325 mg tablet 650 mg PO Q4H PRN Pain 09/09/21 [History Last Taken 10/08/22] bisacodyl 10 mg rectal suppository 10 mg [place] DAILY PRN Constipation 09/09/21 [History Last Taken Unknown] budesonide 0.5 mg/2 mL suspension for nebulization 0.5 mg inhalation BID sob 09/09/21 [History Last Taken 10/04/22] diltiazem HCl 360 mg capsule,24 hr,extended release 360 mg PO DAILY 09/09/21 [History Last Taken 10/09/22] ferrous sulfate 325 mg (65 mg iron) tablet (iron) 325 mg PO BID supplement 09/09/21 [History Last Taken 10/09/22] multivitamin 1 tab PO DAILY supplement 09/09/21 [History Last Taken 10/09/22] omeprazole 40 mg capsule,delayed release 40 mg PO DAILY gerd 09/09/21 [History Last Taken 10/09/22] oxybutynin chloride 5 mg tablet 5 mg PO QHS bladder spasms 09/09/21 [History Last Taken 10/08/22] spironolactone 50 mg tablet 50 mg PO DAILY 09/09/21 [History Last Taken 10/09/22] potassium chloride 20 mEq tablet,extended release(part/cryst) 20 meq PO BID SUPPLEMENT 05/25/22 [History Last Taken 10/09/22] venlafaxine 75 mg capsule,extended release 24 hr 75 mg PO DAILY 05/25/22 [History Last Taken 10/09/22] rivaroxaban 15 mg tablet (Xarelto) 15 mg PO DINNER 30 days #0 tabs 05/28/22 [Rx Last Taken 10/08/22] atorvastatin 10 mg tablet (Lipitor) 10 mg PO QHS 09/09/22 [History Last Taken 10/08/22] meclizine 25 mg tablet 25 mg PO TID PRN Vertigo 09/09/22 [History Last Taken Unknown] pramipexole 0.25 mg tablet (Mirapex) 0.25 mg PO QHS 09/09/22 [History Last Taken 10/08/22] ertapenem 1 gram solution for injection 1 g IV Q24 5 days #5 ea 09/26/22 [Rx Last Taken 10/01/22] insulin glargine 100 unit/mL (3 mL) subcutaneous pen (Basaglar KwikPen U-100 Insulin) 6 unit (0.06 mL) subcut DAILY diabetes #30 mL 09/26/22 [Rx Last Taken 10/08/22] methenamine hippurate 1 gram tablet 1 g PO BID 90 days #180 tabs 09/26/22 [Rx Last Taken 10/09/22] modafinil 200 mg tablet 150 mg PO DAILY 2 days #3 tabs 09/26/22 [Rx Last Taken 10/09/22] morphine 30 mg tablet,extended release 30 mg PO BID PAIN 3 days #6 tabs 09/26/22 [Rx Last Taken 10/09/22] fluconazole 150 mg tablet 150 mg PO DAILY YEAST INFECTION 10/09/22 [History Last Taken 10/08/22] metformin 1,000 mg tablet 1,000 mg PO DAILY DM 10/09/22 [History Last Taken 10/09/22] metformin 500 mg tablet 500 mg PO DAILY DM 10/09/22 [History Last Taken 10/09/22] pregabalin 50 mg capsule 50 mg PO BID NEUROPATHY 10/09/22 [History Last Taken 10/08/22] Allergy/AdvReac Type Severity Reaction Status Date / Time aspirin Allergy Hives Verified 10/09/22 10:02 latex Allergy Rash Verified 10/09/22 10:02 Penicillins Allergy Hives Verified 10/09/22 10:02 Sulfa (Sulfonamide Allergy Hives Verified 10/09/22 10:02 Antibiotics) Family History Mother Heart disease Father Heart disease Surgical History History of cardiac catheterization History of ERCP History of hysterectomy Hx of dilation and curettage Hx of toe surgery S/P laparoscopic cholecystectomy Social History housing: group home Smoking Status: Never smoker alcohol intake: never substance use type: does not use ROS ROS ED ROS Narrative Past medical history: Reviewed Medications: Reviewed Social history: Noncontributory Review of systems: All systems negative except as indicated General: No fever currently. She still has generalized weakness Eyes: No visual changes ENT: No upper airway congestion, normal voice Neck: No neck pain Cardiovascular: No chest pain Respiratory: No shortness of breath or cough Gastrointestinal: No abdominal pain, nausea vomiting or diarrhea Genitourinary: Slight vaginal bleeding this morning which resolved Musculoskeletal: Denies myalgias no difficulty with ambulation Skin: Petechiae Neurological: No memory loss, confusion or any focal weakness. Slight headache EXAM Physical Exam Narrative Exam Narrative: Physical exam General: Patient does not appear in distress. She appears chronically ill. Head: Normocephalic, I do not see any signs of trauma. Eyes: Conjunctiva not pale ENT: Moist mucous membranes Neck: Supple, Nontender, No lymphadenopathy Cardiovascular: Regular rate, Regular rhythm Respiratory: No distress, coarse bilateral breath sounds Abdomen: Soft, Nontender, Nondistended Back: Nontender, Normal Inspection. Negative for: CVA tenderness Extremities: Bilateral lower extremity edema no cellulitis is seen at this time chronic venous stasis changes. Skin: Generalized petechiae and no active bleeding. Neurological: Alert, Normal Strength, Normal Sensation. She is lucid and coherent. Const Vital Signs: 10/09/22 09:56 10/09/22 10:39 10/09/22 10:39 Temperature 97.1 F L 98 F Temperature Source Temporal Temporal Pulse Rate 96 88 85 Respiratory Rate 18 15 17 Respiratory Effort Respiratory Depth Respiratory Pattern Blood Pressure 129/73 H 84/64 L 84/64 L Blood Pressure Mean 91 70 70 Pulse Ox 94 95 Oxygen Delivery Method Room Air Room Air Room Air 10/09/22 10:39 Temperature Temperature Source Pulse Rate Respiratory Rate Respiratory Effort Normal Non-Labored Respiratory Depth Normal Respiratory Pattern Normal Blood Pressure Blood Pressure Mean Pulse Ox Oxygen Delivery Method Room Air MDM MDM MDM Narrative Medical decision making narrative: Patient is confirmed to be thrombocytopenic, there is also evidence of dehydration, she was given some IV fluids, since she was uremic. Otherwise LDH coags and other work-up is normal. There is no signs or symptoms of DIC or TTP. I discussed with Dr. 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 She may have hit her head her CT was negative. Lab Data Labs: Laboratory Results - last 24 hr 10/09/22 10/09/22 10/09/22 10:45 10:45 10:45 WBC 7.8 RBC 4.20 Hgb 12.9 Hct 37.6 MCV 89.5 MCH 30.7 MCHC 34.3 RDW Std Deviation 45.0 H RDW Coeff of Melissa 13.9 Plt Count < 2 L* Immature Gran % (Auto) 0.300 Neut % (Auto) 68.8 Lymph % (Auto) 17.3 L [place] % (Auto) 10.7 H Eos % (Auto) 1.9 Baso % (Auto) 1.0 Absolute Neuts (auto) 5.4 Absolute Lymphs (auto) 1.35 Nucleated RBC % 0 Differential Comment SCANNED Diff Path Review May foll Platelet Estimate MKD DEC Plt Morphology Comment LARGE PT 16.0 H INR 1.3 APTT 35.2 Fibrinogen 432 Sodium 136 Potassium 5.0 Chloride 103 Carbon Dioxide 26.0 Anion Gap 7 BUN 34 H Creatinine 1.17 H Estim Creat Clear Calc 31.83 Est GFR (MDRD) Af Amer 58 L Est GFR (MDRD) Non-Af 48 L BUN/Creatinine Ratio 29.1 H Glucose 152 H Calcium 9.4 Total Bilirubin 0.80 AST 42 H ALT 28 Alkaline Phosphatase 128 H Lactate Dehydrogenase Total Protein 7.1 Albumin 3.4 Globulin 3.7 Albumin/Globulin Ratio 0.9 10/09/22 10:45 WBC RBC Hgb Hct MCV MCH MCHC RDW Std Deviation RDW Coeff of Melissa Plt Count Immature Gran % (Auto) Neut % (Auto) Lymph % (Auto) [place] % (Auto) Eos % (Auto) Baso % (Auto) Absolute Neuts (auto) Absolute Lymphs (auto) Nucleated RBC % Differential Comment Diff Path Review Platelet Estimate Plt Morphology Comment PT INR APTT Fibrinogen Sodium Potassium Chloride Carbon Dioxide Anion Gap BUN Creatinine Estim Creat Clear Calc Est GFR (MDRD) Af Amer Est GFR (MDRD) Non-Af BUN/Creatinine Ratio Glucose Calcium Total Bilirubin AST ALT Alkaline Phosphatase Lactate Dehydrogenase 375 H Total Protein Albumin Globulin Albumin/Globulin Ratio Radiography Diagnostic Testing: Clinical Impression(s) from Imaging Studies Brain CT 10/09/22 10:21 IMPRESSION: Chronic involutional changes of the brain. No acute hemorrhage. No interval change Electronically Signed: Porter Womack MD at 11:45 EDT Reading Location ID and State: [address] [place] [address] , Service support , Discharge Plan Triage Chief Complaint: Fall ED Provider: Carter Gonzalez Dx/Rx/DC Orders Clinical Impression: Thrombocytopenia, Fall, Acute uremia Prescriptions: No Action fluticasone propionate 1 SPRAY spray,suspension 1 spray NASAL QHS furosemide 80 MG tablet 40 mg PO DAILY diltiazem HCl 360 mg Capsule,Extended Release 24 Hr 360 mg PO DAILY ferrous sulfate [iron] 325 mg (65 mg iron) Tablet 325 mg PO BID omeprazole 40 mg Capsule,Delayed Release(Dr/Ec) 40 mg PO DAILY spironolactone 50 mg Tablet 50 mg PO DAILY multivitamin Tablet 1 tab PO DAILY acetaminophen 325 mg Tablet 650 mg PO Q4H PRN (Reason: Pain) bisacodyl 10 mg Suppository 10 mg [place] DAILY PRN (Reason: Constipation) budesonide 0.5 mg/2 mL Suspension For Nebulization 0.5 mg INHALATION BID oxybutynin chloride 5 mg Tablet 5 mg PO QHS venlafaxine 75 mg capsule,extended release 24hr 75 mg PO DAILY potassium chloride 20 mEq tablet,ER particles/crystals 20 meq PO BID Xarelto 15 mg Tablet 15 mg PO DINNER 30 Days Qty: 0 0RF atorvastatin [Lipitor] 10 mg Tablet 10 mg PO QHS meclizine 25 mg Tablet 25 mg PO TID PRN (Reason: Vertigo) pramipexole [Mirapex] 0.25 mg Tablet 0.25 mg PO QHS methenamine hippurate 1 gram Tablet 1 g PO BID 90 Days Qty: 180 3RF ertapenem 1 gram Recon Soln 1 g IV Q24 5 Days Qty: 5 0RF Rx Instructions: dx: esbl ecoli bacteremia morphine 30 mg tablet extended release 30 mg PO BID 3 Days Qty: 6 0RF modafinil 200 mg tablet 150 mg PO DAILY 2 Days Qty: 3 0RF insulin glargine [Basaglar KwikPen U-100 Insulin] 100 unit/mL (3 mL) insulin pen 6 unit SUBCUT DAILY Qty: 30 0RF metformin 500 mg Tablet 500 mg PO DAILY fluconazole 150 mg Tablet 150 mg PO DAILY metformin 1,000 mg Tablet 1,000 mg PO DAILY pregabalin 50 mg Capsule 50 mg PO BID Primary Care Provider: Rosa Silva Referrals: Rosa Silva MD [Primary Care Provider] -
[2022-10-09 10:57] LABS: Absolute Lymphocyte Count 1.35 X10^3/uL (0.83-4.51); Absolute Neutrophil Count 5.4 X10^3/uL (2.0-7.7); Basophil# 0.08 X10^3/uL; Eosinophil# 0.15 X10^3/uL; Eosinophils% 1.9 % (0-5); Hematocrit 37.6 % (37-47); Hemoglobin 12.9 g/dL (12.0-15.0); Lymphocyte # 1.35 X10^3/ul (0.83-4.51); Lymphocyte % 17.3 % (19-41); Mean Corp Hgb Conc 34.3 g/dL (32-36); Mean Corpuscular Hgb 30.7 pg (27.0-32.0); Mean Corpuscular Volume 89.5 fL (81-99); Monocyte# 0.84 X10^3/uL; Monocyte% 10.7 % (0-10); NRBC Flagged by Analyzer 0 % (0-5); Neutrophil # 5.38 X10^3/uL (2.7-7.7); Neutrophil % 68.8 % (47-70); POSITIVE COUNT YES; RBC Distribution Width CV 13.9 % (11.6-14.6); White Blood Count 7.8 K/mm3 (4.4-11.0)
[2022-10-09 11:02] LABS: Platelet Count < 2 K/mm3 (150-450)
[2022-10-09 11:03] LABS: Differential Indicated SCAN CRITERIA MET
[2022-10-09 11:05] LABS: International Normalized Ratio 1.3
[2022-10-09 11:06] LABS: Fibrinogen 432 mg/dl (203-444); Partial Thromboplast Time 35.2 Seconds (24.1-36.2)
[2022-10-09 11:10] LABS: Differential Comment SCANNED; Platelet Estimate MKD DEC (ADEQ); Platelet Morphology LARGE
[2022-10-09 11:15] LABS: ALB/GLOB Ratio 0.9 RATIO (0.9-2.4); AST(SGOT) 42 U/L (15-37); Alanine Aminotransfer ALT/SGPT 28 U/L (13-56); Albumin, Serum 3.4 g/dL (3.2-5.0); Alkaline Phosphatase 128 U/L (45-117); Anion Gap 7 (5-15); BUN 34 mg/dL (7-18); BUN/Creat Ratio 29.1 RATIO (10-20); Calcium,Total 9.4 mg/dL (8.5-10.1); Chloride 103 mmol/L (98-107); Creatinine, Serum 1.17 mg/dL (0.55-1.02); EST Glomerular Filtration Rate 48 mL/min (>60); Est Glom Filt Rate - Afr Amer 58 mL/min (>60); Estimated Creatinine Clearance 31.83 ml/min; Globulin 3.7 g/dL (2.2-4.2); Glucose 152 mg/dL (74-106); LDH 375 U/L (84-246); Protein, Total 7.1 g/dL (6.4-8.2); Sodium Level 136 mmol/L (136-145)
[2022-10-09] MEDS: 0.9% Normal Saline 1,000 ML 999 ML IV (11:15)
--- NOTE | 2022-10-09 12:05 | NURSING ---
MED SURG JOPPERI THROMBOCYTOPENIA
[2022-10-09 12:10] LABS: Pathologist Review Reviewed
--- NOTE | 2022-10-09 12:43 | HP.PCM.HOS_ITS ---
[facility] - General General Date of Service: 10/09/22 Chief Complaint: abnormal labs. [facility] Narrative SANDY ORONA, is a 72 F who presents for abnormal labs. Patient was noted to have an extremely low platelet level and sent to the emergency room. In emergency room, patient's platelets were noted to be less than 2. Emergency room physician spoke with Dr. Zambrano, hematology, who recommended dexamethasone. [place] that this was likely ITP. Patient has noted even since her last admission, that she has been having vaginal as well as rectal bleeding. Never had this problem before. [facility] Medical History Anemia Anxiety and depression Arthritis Asthma Back pain Benign hypertension Bilateral lower extremity edema BiPAP (biphasic positive airway pressure) dependence Cellulitis of left foot Cholelithiasis Chronic acquired lymphedema Chronic back pain Chronic malnutrition Chronic stasis dermatitis of left lower extremity COPD (chronic obstructive pulmonary disease) Decreased pedal pulses Depression Diabetic ulcer of left foot Diabetic ulcer of right foot Diabetic ulcer of toe of left foot DVT (deep venous thrombosis) Elephantiasis Hammertoe of left foot High cholesterol History of edema History of kidney stones History of pain when walking History of stress test HLD (hyperlipidemia) Hoarseness Hypertension Increased BMI Insulin dependent diabetes mellitus Leg cramps Localized edema MRSA infection Nonhealing ulcer of left lower extremity with fat layer exposed Nonhealing ulcer of right lower extremity with fat layer exposed care home resident On home oxygen therapy RILEY (obstructive sleep apnea) PAF (paroxysmal atrial fibrillation) Peripheral neuropathy Renal lithiasis Rheumatic fever RLS (restless legs syndrome) Seasonal allergies Shortness of breath on exertion Type 2 diabetes mellitus Type 2 diabetes mellitus with diabetic polyneuropathy Ulcer of left foot with fat layer exposed Ulcer of right foot with fat layer exposed Venous insufficiency Venous stasis ulcer of right thigh with fat layer exposed Venous ulcer of left lower extremity with varicose veins Venous ulcer of right lower extremity with varicose veins Home Medications fluticasone propionate 50 mcg/actuation nasal spray,suspension 1 spray QHS allergies 02/16/14 [History Last Taken 10/08/22] furosemide 80 mg tablet 40 mg PO DAILY EDEMA 05/07/19 [History Last Taken 10/09/22] acetaminophen 325 mg tablet 650 mg PO Q4H PRN Pain 09/09/21 [History Last Taken 10/08/22] bisacodyl 10 mg rectal suppository 10 mg [place] DAILY PRN Constipation 09/09/21 [History Last Taken Unknown] budesonide 0.5 mg/2 mL suspension for nebulization 0.5 mg inhalation BID sob 09/09/21 [History Last Taken 10/04/22] diltiazem HCl 360 mg capsule,24 hr,extended release 360 mg PO DAILY 09/09/21 [History Last Taken 10/09/22] ferrous sulfate 325 mg (65 mg iron) tablet (iron) 325 mg PO BID supplement 09/09/21 [History Last Taken 10/09/22] multivitamin 1 tab PO DAILY supplement 09/09/21 [History Last Taken 10/09/22] omeprazole 40 mg capsule,delayed release 40 mg PO DAILY gerd 09/09/21 [History Last Taken 10/09/22] oxybutynin chloride 5 mg tablet 5 mg PO QHS bladder spasms 09/09/21 [History Last Taken 10/08/22] spironolactone 50 mg tablet 50 mg PO DAILY 09/09/21 [History Last Taken 10/09/22] potassium chloride 20 mEq tablet,extended release(part/cryst) 20 meq PO BID SUPPLEMENT 05/25/22 [History Last Taken 10/09/22] venlafaxine 75 mg capsule,extended release 24 hr 75 mg PO DAILY 05/25/22 [History Last Taken 10/09/22] rivaroxaban 15 mg tablet (Xarelto) 15 mg PO DINNER 30 days #0 tabs 05/28/22 [Rx Last Taken 10/08/22] atorvastatin 10 mg tablet (Lipitor) 10 mg PO QHS 09/09/22 [History Last Taken 10/08/22] meclizine 25 mg tablet 25 mg PO TID PRN Vertigo 09/09/22 [History Last Taken Unknown] pramipexole 0.25 mg tablet (Mirapex) 0.25 mg PO QHS 09/09/22 [History Last Taken 10/08/22] ertapenem 1 gram solution for injection 1 g IV Q24 5 days #5 ea 09/26/22 [Rx Last Taken 10/01/22] insulin glargine 100 unit/mL (3 mL) subcutaneous pen (Basaglar KwikPen U-100 Insulin) 6 unit (0.06 mL) subcut DAILY diabetes #30 mL 09/26/22 [Rx Last Taken 10/08/22] methenamine hippurate 1 gram tablet 1 g PO BID 90 days #180 tabs 09/26/22 [Rx Last Taken 10/09/22] modafinil 200 mg tablet 150 mg PO DAILY 2 days #3 tabs 09/26/22 [Rx Last Taken 10/09/22] morphine 30 mg tablet,extended release 30 mg PO BID PAIN 3 days #6 tabs 09/26/22 [Rx Last Taken 10/09/22] fluconazole 150 mg tablet 150 mg PO DAILY YEAST INFECTION 10/09/22 [History Last Taken 10/08/22] metformin 1,000 mg tablet 1,000 mg PO DAILY DM 10/09/22 [History Last Taken 10/09/22] metformin 500 mg tablet 500 mg PO DAILY DM 10/09/22 [History Last Taken 10/09/22] pregabalin 50 mg capsule 50 mg PO BID NEUROPATHY 10/09/22 [History Last Taken 10/08/22] Allergy/AdvReac Type Severity Reaction Status Date / Time aspirin Allergy Hives Verified 10/09/22 10:02 latex Allergy Rash Verified 10/09/22 10:02 Penicillins Allergy Hives Verified 10/09/22 10:02 Sulfa (Sulfonamide Allergy Hives Verified 10/09/22 10:02 Antibiotics) Family History Mother Heart disease Father Heart disease Surgical History History of cardiac catheterization History of ERCP History of hysterectomy Hx of dilation and curettage Hx of toe surgery S/P laparoscopic cholecystectomy Social History housing: longterm Smoking Status: Never smoker alcohol intake: never substance use type: does not use ROS ROS Narrative Bruising, petechiae. All review of systems were negative except as mentioned above in the history of present illness and the other review of systems. Vital Signs Vital Signs Vital Signs: 10/09/22 09:56 10/09/22 10:39 10/09/22 10:39 Temperature 36.2 C L 36.6 C Temperature Source Temporal Temporal Pulse Rate 96 88 85 Respiratory Rate 18 15 17 Respiratory Effort Respiratory Depth Respiratory Pattern Blood Pressure 129/73 H 84/64 L 84/64 L Blood Pressure Mean 91 70 70 Pulse Ox 94 95 Oxygen Delivery Method Room Air Room Air Room Air 10/09/22 10:39 Temperature Temperature Source Pulse Rate Respiratory Rate Respiratory Effort Normal Non-Labored Respiratory Depth Normal Respiratory Pattern Normal Blood Pressure Blood Pressure Mean Pulse Ox Oxygen Delivery Method Room Air Weight Weight: 108 kg Body Mass Index (BMI) 44.9 Physical Exam Const alert and no apparent distress HEENT normocephalic and head/scalp atraumatic HEENT Narrative: Mucous membranes dry Eyes conjunctivae normal Eyes Narrative: No icterus. Resp normal respiratory effort, no retractions, no use of accessory muscles and clear to auscultation bilaterally Cardio regular rate, regular rhythm, S1 normal heart sound and S2 normal heart sound GI normal to inspection, nondistended, normoactive bowel sounds, soft to palpation, non-tender and non-distended Extremity Extremity Narrative: Chronic venous stasis changes with eventual scarring lower extremities. Skin Skin Narrative: Bruising on the left shoulder. Petechiae noted on on arms, hands and chest and abdomen. No palpable purpura Neuro moves all extremities Sensorium / Orientation: awake and alert Psych affect normal Results Lab / Micro Data Attestation: I reviewed the patient's lab results. Result Diagrams: 10/09/22 10:45 10/09/22 10:45 Labs: Laboratory Results - last 24 hr 10/09/22 10:45: WBC 7.8, RBC 4.20, Hgb 12.9, Hct 37.6, MCV 89.5, MCH 30.7, MCHC 34.3, RDW Std Deviation 45.0 H, RDW Coeff of Melissa 13.9, Plt Count < 2 L*, Immature Gran % (Auto) 0.300, Neut % (Auto) 68.8, Lymph % (Auto) 17.3 L, [place] % (Auto) 10.7 H, Eos % (Auto) 1.9, Baso % (Auto) 1.0, Absolute Neuts (auto) 5.4, Absolute Lymphs (auto) 1.35, Nucleated RBC % 0, Differential Comment SCANNED, Diff Path Review Reviewed, Platelet Estimate MKD DEC, Plt Morphology Comment LARGE 10/09/22 10:45: PT 16.0 H, INR 1.3, APTT 35.2, Fibrinogen 432 10/09/22 10:45: Sodium 136, Potassium 5.0, Chloride 103, Carbon Dioxide 26.0, Anion Gap 7, BUN 34 H, Creatinine 1.17 H, Estim Creat Clear Calc 31.83, Est GFR (MDRD) Af Amer 58 L, Est GFR (MDRD) Non-Af 48 L, BUN/Creatinine Ratio 29.1 H, Glucose 152 H, Calcium 9.4, Total Bilirubin 0.80, AST 42 H, ALT 28, Alkaline Phosphatase 128 H, Total Protein 7.1, Albumin 3.4, Globulin 3.7, Albumin/Globulin Ratio 0.9 10/09/22 10:45: Lactate Dehydrogenase 375 H Radiology Impression Brain CT 10/09/22 10:21 IMPRESSION: Chronic involutional changes of the brain. No acute hemorrhage. No interval change Electronically Signed: Porter Womack MD at 11:45 EDT Reading Location ID and State: [address] [place] [place] [address] , Service support , Assessment & Plan Assessment/Plan (1) Thrombocytopenia: PLAN: Suspected ITP. Patient has not been hospitalized since the first and is not currently taking any heparin or enoxaparin, therefore, the likelihood of this being HIT is low. Continue with steroids at 40 mg of dexamethasone daily Consult hematology Could be iatrogenic as well. Patient had been on ertapenem but was discontinued on the seventh that appears. We will also hold off on pregabalin, omeprazole, fluconazole, meclizine, venlafaxine and Xarelto (2) ANDREA (acute kidney injury): PLAN: Clinically, the patient appears dry. Will give patient additional IV fluids. Patient did receive IV fluids in the emergency room. Will hold off on diuretics with furosemide and spironolactone for now Patient is alert and oriented, therefore acute uremia is ruled out. (3) Bleeding: PLAN: Per patient report: Patient was having vaginal as well as rectal bleeding. Would monitor for now given thrombocytopenia. If persist after improvement of her platelets, could consider consulting the appropriate specialist PLAN: Plan Chronic conditions * Diabetes mellitus type 2: Continue with the metformin. Add sliding scale insulin. * RILEY: Continue with BiPAP * Paroxysmal A-fib: Hold Xarelto given thrombocytopenia. Continue with diltiazem. * Hypertension * Morbid obesity * Hyperlipidemia: Continue statin * Takes modafinil: Unclear if this is related with narcolepsy or other. Looking through the side effects, thrombocytopenia does not appear to be a common 1 with that so we will continue. VTE prophylaxis: Not indicated given the patient's thrombocytopenia. No chemical prophylaxis and I would hold off on mechanical prophylaxis because that may incite further petechiae or bruising CODE STATUS: Dressed with the patient. Patient was to be full code Disposition: To be determined. Dissipate at least 48 hours of hospitalization given the patient's profound thrombocytopenia. High risk of or significant morbidity particular if she were to develop serous bleeding. Charges/Coding Visit Charges Inpatient E&M: 31411 Init Hosp L3
[2022-10-09] MEDS: dexAMETHasone 4 MG Tablet 40 MG PO (12:49)
[2022-10-09] MEDS: 0.9% Normal Saline 1,000 ML 150 ML IV (14:45)
[2022-10-09] MEDS: 0.9% Saline Lock 10 ML Syringe IV (14:45)
--- NOTE | 2022-10-09 14:45 | CPS ---
Bipap Set-up at bedside for use cheryl.
[2022-10-09] MEDS: Ferrous Sulfate 325 MG Tablet PO (16:40)
[2022-10-09 17:05] LABS: Bedside Glucose 151 mg/dL (74-106)
--- NOTE | 2022-10-09 17:19 | CON.PCM.ON_ITS ---
Assessment & Plan Assessment/Plan (1) Thrombocytopenia: Status: Acute Code(s): D69.6 - Thrombocytopenia, unspecified Plan: Acute isolated severe thrombocytopenia with platelet count less than 10K. No recent history of exposure to a heparin preparation, no evidence to suggest hemolysis no evidence for acute ischemic changes, and no evidence to suggest DIC. The findings are most consistent with immune thrombocytopenia idiopathic or drug-induced. It is notable that the patient has been on furosemide and diltiazem (both have been implicated in drug-induced immune thrombocytopenia) but she has been on these for years. She was recently treated for E. coli sepsis recent antibiotic exposure has not been reported to cause DITP. Plan: 1. Xarelto anticoagulation has been held. 2. Transfuse with platelets for platelet count less than 10K or active bleeding. 3. High-dose Decadron, 40 mg orally daily for 4 days first dose was started on admission in the emergency room. 4. Follow-up platelet count daily. We will follow-up Nguyễn Zambrano MD Bolt Sorter, [facility] Divisions of Medical Oncology & Hematology Department of Internal Medicine [place] [phone] This note was generated using a voice recognition system software. Although it was reviewed by the author prior to finalization, it may still contain incorrect words, spelling, and punctuation that were not noted when reviewing prior to saving. If a clinically significant typo or inaccurately typed phrase is noted, please notify the author. HPI Consult Data Date of Service:: 10/09/22 PCP / Referring Provider: Dr. Rosa Silva MD Attending: Dr. Peña Bailey DO Chief Complaint Chief Complaint: Low platelet count History of Present Illness History of Present Illness: 72-year-old female admitted from a long term facility because of low platelet count (see lab section). Patient was recently hospitalized (September 22 - September 26, 2022) due to sepsis from E. coli bacteremia.at that time she suffered from acute encephalopathy and was improving. Chronic comorbid diseases include diabetes Diabetic nephropathy, chronic kidney failure, diabetic neuropathy, diabetic foot, atrial fibrillation on chronic anticoagulation, morbid obesity dyslipidemia, hypertension, chronic pain and sleep apnea. Advanced Directives Power of Rn Compliance: No Living Will: No FORMERLY [facility], [facility]–1983 Medical History (Updated 10/09/22 @ 15:23 by Carlota Saunders) Anemia Anxiety and depression Arthritis Asthma Atrial fibrillation Back pain Benign hypertension Bilateral lower extremity edema BiPAP (biphasic positive airway pressure) dependence Cellulitis of left foot Cholelithiasis Chronic acquired lymphedema Chronic back pain Chronic malnutrition Chronic pain Chronic stasis dermatitis of left lower extremity Congestive heart failure (CHF) COPD (chronic obstructive pulmonary disease) Decreased pedal pulses Depression Diabetes Diabetic ulcer of left foot Diabetic ulcer of right foot Diabetic ulcer of toe of left foot Dialysis patient DVT (deep venous thrombosis) Elephantiasis GERD (gastroesophageal reflux disease) Hammertoe of left foot High cholesterol History of edema History of kidney stones History of pain when walking History of stress test HLD (hyperlipidemia) Hoarseness Hypertension Increased BMI Insulin dependent diabetes mellitus Leg cramps Localized edema MRSA infection Non-smoker Nonhealing ulcer of left lower extremity with fat layer exposed Nonhealing ulcer of right lower extremity with fat layer exposed senior care resident On home oxygen therapy RILEY (obstructive sleep apnea) Osteoporosis PAF (paroxysmal atrial fibrillation) Peripheral neuropathy Renal lithiasis Rheumatic fever Rheumatoid arthritis RLS (restless legs syndrome) Seasonal allergies Shortness of breath on exertion Sleep apnea Type 2 diabetes mellitus Type 2 diabetes mellitus with diabetic polyneuropathy Ulcer of left foot with fat layer exposed Ulcer of right foot with fat layer exposed Venous insufficiency Venous stasis ulcer of right thigh with fat layer exposed Venous ulcer of left lower extremity with varicose veins Venous ulcer of right lower extremity with varicose veins Home Medications fluticasone propionate 50 mcg/actuation nasal spray,suspension 1 spray QHS allergies 02/16/14 [History Last Taken 10/08/22] furosemide 80 mg tablet 40 mg PO DAILY EDEMA 05/07/19 [History Last Taken 10/09/22] acetaminophen 325 mg tablet 650 mg PO Q4H PRN Pain 09/09/21 [History Last Taken 10/08/22] bisacodyl 10 mg rectal suppository 10 mg IN DAILY PRN Constipation 09/09/21 [History Last Taken Unknown] budesonide 0.5 mg/2 mL suspension for nebulization 0.5 mg inhalation BID sob 09/09/21 [History Last Taken 10/04/22] diltiazem HCl 360 mg capsule,24 hr,extended release 360 mg PO DAILY 09/09/21 [History Last Taken 10/09/22] ferrous sulfate 325 mg (65 mg iron) tablet (iron) 325 mg PO BID supplement 09/09/21 [History Last Taken 10/09/22] multivitamin 1 tab PO DAILY supplement 09/09/21 [History Last Taken 10/09/22] omeprazole 40 mg capsule,delayed release 40 mg PO DAILY gerd 09/09/21 [History Last Taken 10/09/22] oxybutynin chloride 5 mg tablet 5 mg PO QHS bladder spasms 09/09/21 [History Last Taken 10/08/22] spironolactone 50 mg tablet 50 mg PO DAILY 09/09/21 [History Last Taken ] potassium chloride 20 mEq tablet,extended release(part/cryst) 20 meq PO BID SUPPLEMENT 05/25/22 [History Last Taken 10/09/22] venlafaxine 75 mg capsule,extended release 24 hr 75 mg PO DAILY 05/25/22 [History Last Taken 10/09/22] rivaroxaban 15 mg tablet (Xarelto) 15 mg PO DINNER 30 days #0 tabs 05/28/22 [Rx Last Taken 10/08/22] atorvastatin 10 mg tablet (Lipitor) 10 mg PO QHS 09/09/22 [History Last Taken 10/08/22] meclizine 25 mg tablet 25 mg PO TID PRN Vertigo 09/09/22 [History Last Taken Unknown] pramipexole 0.25 mg tablet (Mirapex) 0.25 mg PO QHS 09/09/22 [History Last Taken 10/08/22] ertapenem 1 gram solution for injection 1 g IV Q24 5 days #5 ea 09/26/22 [Rx Last Taken 10/01/22] insulin glargine 100 unit/mL (3 mL) subcutaneous pen (Basaglar KwikPen U-100 Insulin) 6 unit (0.06 mL) subcut DAILY diabetes #30 mL 09/26/22 [Rx Last Taken 10/08/22] methenamine hippurate 1 gram tablet 1 g PO BID 90 days #180 tabs 09/26/22 [Rx Last Taken 10/09/22] modafinil 200 mg tablet 150 mg PO DAILY 2 days #3 tabs 09/26/22 [Rx Last Taken 10/09/22] morphine 30 mg tablet,extended release 30 mg PO BID PAIN 3 days #6 tabs 09/26/22 [Rx Last Taken 10/09/22] fluconazole 150 mg tablet 150 mg PO DAILY YEAST INFECTION 10/09/22 [History Last Taken 10/08/22] metformin 1,000 mg tablet 1,000 mg PO DAILY DM 10/09/22 [History Last Taken 10/09/22] metformin 500 mg tablet 500 mg PO DAILY DM 10/09/22 [History Last Taken 10/09/22] pregabalin 50 mg capsule 50 mg PO BID NEUROPATHY 10/09/22 [History Last Taken 10/08/22] Allergy/AdvReac Type Severity Reaction Status Date / Time aspirin Allergy Severe Hives Verified 10/09/22 15:15 Penicillins Allergy Severe Anaphylaxis Verified 10/09/22 15:15 Sulfa (Sulfonamide Allergy Severe Anaphylaxis Verified 10/09/22 15:15 Antibiotics) latex Allergy Rash Verified 10/09/22 10:02 Family History Mother Heart disease Father Heart disease Surgical History (Updated 10/09/22 @ 15:22 by Carlota Saunders) History of appendectomy History of cardiac catheterization History of cholecystectomy History of ERCP History of hysterectomy Hx of dilation and curettage Hx of toe surgery S/P laparoscopic cholecystectomy Social History housing: senior living Smoking Status: Never smoker alcohol intake: never substance use type: does not use ROS ROS Narrative Obtained by reviewing records, from nursing staff and limited from patient Constitutional Constitutional: Denies fever(s) Cardiovascular Cardiovascular: Reports edema; Denies dyspnea Respiratory/Chest Respiratory/Chest: Denies chest tightness, cough, dyspnea or hemoptysis Gastrointestinal Gastrointestinal: Reports hematochezia and other Details: Hematochezia reported in admission H&P but not noted since admission to floor ; Denies melena Genitourinary Genitourinary: Reports other Details: Vaginal bleeding reported in admission H&P but not witnessed on floor ; Denies hematuria Musculoskeletal Musculoskeletal: Denies extremity pain Integumentary Integumentary: Reports changing lesions and unusual bruising; Denies new lesions Neurologic Neurologic: Denies headache(s) Hematologic/Lymphatic Hematologic/Lymphatic: Reports easy bruising Physical Exam Narrative ECOG 3-4 Const Constitutional Narrative: Sleepy but arousable to touch Orientation / Consciousness: oriented to person and oriented to place Nutritional Appearance: obese morbidly obese HEENT normocephalic Eyes no scleral icterus Neck no lymphadenopathy and no JVD Resp clear to auscultation bilaterally Cardio regular rate GI soft to palpation and non-tender Extremity Extremity Narrative: Lower extremities with chronic trophic changes consistent with chronic vascular insufficiency and diabetic dermopathy, no acute ischemic changes General Extremity: edema bilateral lower extremity Details: mild Skin General Skin Exam: ecchymosis Neuro moves all extremities Neuro Narrative: Patient was sleepy but aroused to touch, moves extremities to command Psych cooperative Vital Signs Temperature 100.9 F H 10/09/22 14:54 Temperature Source Temporal 10/09/22 14:54 Pulse Rate 72 10/09/22 14:54 Respiratory Rate 18 10/09/22 14:54 Respiratory Effort Labored 10/09/22 14:47 Respiratory Depth Normal 10/09/22 14:47 Respiratory Pattern Normal 10/09/22 14:47 Blood Pressure 117/54 L 10/09/22 14:54 Blood Pressure Mean 75 10/09/22 14:54 Blood Pressure Source Monitor 10/09/22 14:54 Blood Pressure Position Semi-Fowlers 10/09/22 14:54 Blood Pressure Location Left Arm 10/09/22 14:54 Pulse Ox 94 10/09/22 14:54 Oxygen Delivery Method Room Air 10/09/22 14:54 Fraction of Inspired Oxygen (FIO2) 25 10/09/22 14:45 Laboratory Results - last 24 hr 10/09/22 10:45: WBC 7.8, RBC 4.20, Hgb 12.9, Hct 37.6, MCV 89.5, MCH 30.7, MCHC 34.3, RDW Std Deviation 45.0 H, RDW Coeff of Melissa 13.9, Plt Count < 2 L*, Immature Gran % (Auto) 0.300, Neut % (Auto) 68.8, Lymph % (Auto) 17.3 L, [place] % (Auto) 10.7 H, Eos % (Auto) 1.9, Baso % (Auto) 1.0, Absolute Neuts (auto) 5.4, Absolute Lymphs (auto) 1.35, Nucleated RBC % 0, Differential Comment SCANNED, Diff Path Review Reviewed, Platelet Estimate MKD DEC, Plt Morphology Comment LARGE 10/09/22 10:45: PT 16.0 H, INR 1.3, APTT 35.2, Fibrinogen 432 10/09/22 10:45: Sodium 136, Potassium 5.0, Chloride 103, Carbon Dioxide 26.0, Anion Gap 7, BUN 34 H, Creatinine 1.17 H, Estim Creat Clear Calc 31.83, Est GFR (MDRD) Af Amer 58 L, Est GFR (MDRD) Non-Af 48 L, BUN/Creatinine Ratio 29.1 H, Glucose 152 H, Calcium 9.4, Total Bilirubin 0.80, AST 42 H, ALT 28, Alkaline Phosphatase 128 H, Total Protein 7.1, Albumin 3.4, Globulin 3.7, Albumin/Globulin Ratio 0.9 10/09/22 10:45: Lactate Dehydrogenase 375 H 10/09/22 10:45: Blood Type B POSITIVE 10/09/22 16:35: POC Glucose 151 H Laboratory Tests 10/02/22 10/09/22 10/09/22 08:05 05:40 10:45 Plt Count 236 3 L* < 2 L* I personally reviewed patient's peripheral blood smear, platelets are virtually absent, red blood cells predominantly normocytic normochromic no schistocytes and myeloid series shows a left shift but no blasts Diagnostic Data Brain CT 10/09/22 10:21 IMPRESSION: Chronic involutional changes of the brain. No acute hemorrhage. No interval change Electronically Signed: Porter Womack MD at 11:45 EDT Reading Location ID and State: [address] [place] [address] , Service support ,
[2022-10-09 23:21] LABS: Bedside Glucose 189 mg/dL (74-106)
[2022-10-09] MEDS: morphine SR 15 MG Tablet 30 MG PO (23:32)
[2022-10-09] MEDS: Atorvastatin Calcium 10 MG Tablet PO (23:34)
[2022-10-09] MEDS: Oxybutynin 5 MG Tablet PO (23:34)
[2022-10-09] MEDS: Pramipexole Di-HCl 0.25 MG Tablet PO (23:34)
[2022-10-09] MEDS: Fluticasone 0.05% 1 SPRAY NASAL.SRY NASAL (23:34)
[2022-10-10] VITALS (14 sets, daily range): BP systolic 95–118; BP diastolic 57–72; PULSE 71–103; RESP 12–25; TEMP 36.6–37.1; O2SAT 92–99
[2022-10-10] MEDS: Insulin Lispro 100 UNIT/ML INSULN.PEN SC ×3 (05:37→18:36)
[2022-10-10 06:00] LABS: Bedside Glucose 162 mg/dL (74-106)
[2022-10-10 06:15] LABS: Absolute Lymphocyte Count 0.49 X10^3/uL (0.83-4.51); Absolute Neutrophil Count 4.5 X10^3/uL (2.0-7.7); Hematocrit 36.2 % (37-47); Lymphocyte # 0.49 X10^3/ul (0.83-4.51); Lymphocyte % 9.6 % (19-41); Mean Corp Hgb Conc 33.1 g/dL (32-36); Mean Corpuscular Hgb 30.6 pg (27.0-32.0); Mean Corpuscular Volume 92.3 fL (81-99); Mean Platelet Vol. 12.8 fl (6.2-12.0); Monocyte# 0.03 X10^3/uL; Monocyte% 0.6 % (0-10); NRBC Flagged by Analyzer 0 % (0-5); Neutrophil # 4.54 X10^3/uL (2.7-7.7); Neutrophil % 89.4 % (47-70); POSITIVE COUNT YES; POSITIVE DIFFERENTIAL YES; RBC Distribution Width CV 13.7 % (11.6-14.6); RBC Distribution Width SD 45.9 fl (35.1-43.9); Red Blood Count 3.92 M/mm3 (4.2-5.4); White Blood Count 5.1 K/mm3 (4.4-11.0)
[2022-10-10 06:18] LABS: Differential Indicated SCAN CRITERIA MET; Platelet Count 5 K/mm3 (150-450)
[2022-10-10 06:43] LABS: Anion Gap 7 (5-15); BUN 28 mg/dL (7-18); Chloride 108 mmol/L (98-107); Creatinine, Serum 0.76 mg/dL (0.55-1.02); EST Glomerular Filtration Rate 79 mL/min (>60); Est Glom Filt Rate - Afr Amer 96 mL/min (>60); Estimated Creatinine Clearance 37.24 ml/min; Glucose 175 mg/dL (74-106); Phosphorus 4.1 mg/dL (2.5-4.9); Potassium 4.3 mmol/L (3.5-5.1); Sodium Level 140 mmol/L (136-145)
[2022-10-10 06:44] LABS: Differential Comment SCANNED; Platelet Estimate MKD DEC (ADEQ)
--- NOTE | 2022-10-10 08:06 | PN.HOSP_ITS ---
Reason for Visit Reason for Visit: Diagnoses Thrombocytopenia, unspecified (10/09/22) Acute kidney failure, unspecified (10/09/22) Hemorrhage, not elsewhere classified (10/09/22) Subjective Subjective Had some one-time bout of clot of from her nose. Objective Data Objective Data Vital Signs: Vital Signs Temp Pulse Resp BP Pulse Ox O2 Del Method FiO2 36.6 C 75 25 H 111/72 96 Bi-pap 25 10/10/22 03:00 10/10/22 05:05 10/10/22 05:05 10/10/22 03:00 10/10/22 05:05 10/10/22 03:00 10/10/22 05:05 Oxygen Delivery Method Bi-pap Weight: 108 kg Body Mass Index (BMI) 44.9 Intake & Output: Intake and Output for Last 24 Hours 10/08/22 10/09/22 10/10/22 23:59 23:59 23:59 Intake Total 2320.0 / 2320.0 Output Total 650 / 650 Balance 2320.0 / 1970.0 -650 / -650 Lab / Micro Data Result Diagrams: 10/10/22 05:54 10/10/22 05:54 Labs: Laboratory Results - last 24 hr 10/09/22 10:45: WBC 7.8, RBC 4.20, Hgb 12.9, Hct 37.6, MCV 89.5, MCH 30.7, MCHC 34.3, RDW Std Deviation 45.0 H, RDW Coeff of Melissa 13.9, Plt Count < 2 L*, Immature Gran % (Auto) 0.300, Neut % (Auto) 68.8, Lymph % (Auto) 17.3 L, [place] % (Auto) 10.7 H, Eos % (Auto) 1.9, Baso % (Auto) 1.0, Absolute Neuts (auto) 5.4, Absolute Lymphs (auto) 1.35, Nucleated RBC % 0, Differential Comment SCANNED, Diff Path Review Reviewed, Platelet Estimate MKD DEC, Plt Morphology Comment LARGE 10/09/22 10:45: PT 16.0 H, INR 1.3, APTT 35.2, Fibrinogen 432 10/09/22 10:45: Sodium 136, Potassium 5.0, Chloride 103, Carbon Dioxide 26.0, Anion Gap 7, BUN 34 H, Creatinine 1.17 H, Estim Creat Clear Calc 31.83, Est GFR (MDRD) Af Amer 58 L, Est GFR (MDRD) Non-Af 48 L, BUN/Creatinine Ratio 29.1 H, Glucose 152 H, Calcium 9.4, Total Bilirubin 0.80, AST 42 H, ALT 28, Alkaline Phosphatase 128 H, Total Protein 7.1, Albumin 3.4, Globulin 3.7, Albumin/Globulin Ratio 0.9 10/09/22 10:45: Lactate Dehydrogenase 375 H 10/09/22 10:45: Blood Type B POSITIVE 10/09/22 16:35: POC Glucose 151 H 10/09/22 22:00: POC Glucose 189 H 10/10/22 05:32: POC Glucose 162 H 10/10/22 05:54: WBC 5.1, RBC 3.92 L, Hgb 12.0, Hct 36.2 L, MCV 92.3, MCH 30.6, MCHC 33.1, RDW Std Deviation 45.9 H, RDW Coeff of Melissa 13.7, Plt Count 5 L*, MPV 12.8 H, Immature Gran % (Auto) 0.400, Neut % (Auto) 89.4 H, Lymph % (Auto) 9.6 L , [place] % (Auto) 0.6, Eos % (Auto) 0.0, Baso % (Auto) 0.0, Absolute Neuts (auto) 4.5, Absolute Lymphs (auto) 0.49 L, Nucleated RBC % 0, Differential Comment S CANNED, Diff Path Review November, Platelet Estimate MKD 10/10/22 05:54: Sodium 140, Potassium 4.3, Chloride 108 H, Carbon Dioxide 25.0, Anion Gap 7, BUN 28 H, Creatinine 0.76, Estim Creat Clear Calc 37.24, Est GFR (MDRD) Af Amer 96, Est GFR (MDRD) Non-Af 79, BUN/Creatinine Ratio 37.0 H, Glu cose 175 H, Calcium 9.0, Phosphorus 4.1 Radiography Diagnostic Testing: Radiology Impression Brain CT 10/09/22 10:21 IMPRESSION: Chronic involutional changes of the brain. No acute hemorrhage. No interval change Electronically Signed: Porter Womack MD at 11:45 EDT , Physical Exam Const alert and no apparent distress HEENT head/scalp atraumatic and moist oral mucous membranes Resp normal respiratory effort and no retractions Cardio regular rate, regular rhythm, S1 normal heart sound and S2 normal heart sound GI normal to inspection, nondistended, normoactive bowel sounds, soft to palpation, non-tender and non-distended Extremity normal to inspection Skin Skin Narrative: Ecchymosis at IV site in left forearm. Assessment & Plan Assessment/Plan (1) Thrombocytopenia: PLAN: Suspected ITP. Patient has not been hospitalized since the first and is not currently taking any heparin or enoxaparin, therefore, the likelihood of this being HIT is low. Continue with steroids at 40 mg of dexamethasone daily Consult hematology Could be iatrogenic as well. Patient had been on ertapenem but was discontinued on the seventh that appears. We will also hold off on pregabalin, omeprazole, fluconazole, meclizine, venlafaxine and Xarelto Bolus and 5000, transfuse to keep above 10. We will transfuse additional cathleen telets. (2) ANDREA (acute kidney injury): PLAN: Resolved On admission, the patient appeared dry. Will give patient additional IV fluids. Patient did receive IV fluids in the em ergency room. Will hold off on diuretics with furosemide and spironolactone for now Patient is alert and oriented, therefore acute uremia is ruled out. (3) Bleeding: PLAN: Per patient report: Patient was having vaginal as well as rectal bleeding. Would monitor for now given thrombocytopenia. If persist after improvement of her platelets, could consider consulting the appropriate specialist Hg currently stable. Continue to monitor. PLAN: Plan Chronic conditions * Diabetes mellitus type 2: Continue with the metformin. Add sliding scale insulin. * RILEY: Continue with BiPAP * Paroxysmal A-fib: Hold Xarelto given thrombocytopenia. Continue with diltiazem. * Hypertension * Morbid obesity * Hyperlipidemia: Continue statin * Takes modafinil: Unclear if this is related with narcolepsy or other. Looking through the side effects, thrombocytopenia does not appear to be a common 1 with that so we will continue. VTE prophylaxis: Not indicated given the patient's thrombocytopenia. No chemical prophylaxis and I would hold off on mechanical prophylaxis because that may incite further petechiae or bruising CODE STATUS: Dressed with the patient. Patient was to be full code Disposition: To be determined. Dissipate at least 48 hours of hospitalization given the patient's profound thrombocytopenia. High risk of or significant morbidity particular if she were to develop serous bleeding. Charges/Coding Visit Charges Inpatient E&M: 83635 Subs Hosp L2
--- NOTE | 2022-10-10 09:29 | CASEMGMT ---
Addendum entered by Anita Rutledge 10/10/22 11:54: [facility] confirmed pt is medicaid bed hold and can return when medically ready. Original Note: Social Work SW in to pt room to begin discharge planning. Pt stated being from [facility] and wanting to return upon discharge. Pt declined list of SNF providers and informed that [facility] is home and that the people there are family. SW sent updated clinical information to [facility] via [facility] and asked SNF to confirm pt can return. PLAN: [facility], when medically ready. SHARATH Kahn
[2022-10-10] MEDS: metFORMIN HCl 1,000 MG Tablet 1000 MG PO (09:30)
[2022-10-10] MEDS: metFORMIN HCl 500 MG Tablet PO (09:30)
[2022-10-10] MEDS: dexAMETHasone 20 MG/5 ML Vial 40 MG IV (09:31)
[2022-10-10] MEDS: dilTIAZem CD 180 MG Capsule 360 MG PO (09:31)
[2022-10-10] MEDS: morphine SR 15 MG Tablet 30 MG PO ×2 (10:11→21:22)
[2022-10-10] MEDS: Ferrous Sulfate 325 MG Tablet PO ×2 (12:10→18:36)
[2022-10-10] MEDS: Insulin Glargine-YFGN 100 UNIT/ML Pen 6 UNIT SC (12:12)
--- NOTE | 2022-10-10 13:40 | CHAPLAIN ---
Type of Pastoral Visit _x__ Initial Visit ___ Follow-up Visit ___ On-call Visit ___ General Patient Visit ___ Spiritual Assessment ___ Family Conference ___ Bereavement ___ Rapid Response ___ Code Blue ___ Other (describe below) Pastoral Care Referral From _x__ Patient ___ Family ___ Nurse ___ Physician ___ Lift Supervisor ___ Rod Puller ___ Other (describe below) Sacrament/Intervention _x__ Active listening ___ Anointing ___ Baptist ___ Bereavement ___ Communion _x__ Trini exploration ___ _x__ Life review _x__ Prayer ___ Reconciliation ___ Sacrament of Sick _x__ Supportive presence ___ Wedding ___ Other (describe below) Pastoral Comments this patient has been seen in previous admissions; pt gives review of life and updates on recent health issues; pt talks about family of origin and her acceptance of living at [facility]; pt states that God helps her and that prayers and presence are always welcome
[2022-10-10 13:50] LABS: Pathologist Review Reviewed
[2022-10-10 19:00] LABS: Bedside Glucose 224 mg/dL (74-106)
[2022-10-10 20:07] LABS: Absolute Lymphocyte Count 0.45 X10^3/uL (0.83-4.51); Hematocrit 33.9 % (37-47); Hemoglobin 11.4 g/dL (12.0-15.0); Lymphocyte # 0.45 X10^3/ul (0.83-4.51); Lymphocyte % 5.9 % (19-41); Mean Corp Hgb Conc 33.6 g/dL (32-36); Mean Corpuscular Hgb 30.6 pg (27.0-32.0); Mean Corpuscular Volume 91.1 fL (81-99); Mean Platelet Vol. 11.9 fl (6.2-12.0); Monocyte# 0.16 X10^3/uL; Monocyte% 2.1 % (0-10); NRBC Flagged by Analyzer 0 % (0-5); Neutrophil # 7.04 X10^3/uL (2.7-7.7); Neutrophil % 91.5 % (47-70); POSITIVE COUNT YES; POSITIVE DIFFERENTIAL YES; RBC Distribution Width CV 13.6 % (11.6-14.6); RBC Distribution Width SD 45.1 fl (35.1-43.9); Red Blood Count 3.72 M/mm3 (4.2-5.4); White Blood Count 7.7 K/mm3 (4.4-11.0)
[2022-10-10 20:28] LABS: Differential Indicated SCAN CRITERIA MET; Platelet Count 23 K/mm3 (150-450)
[2022-10-10] MEDS: Fluticasone 0.05% 1 SPRAY NASAL.SRY NASAL (21:17)
[2022-10-10] MEDS: Oxybutynin 5 MG Tablet PO (21:17)
[2022-10-10] MEDS: Pramipexole Di-HCl 0.25 MG Tablet PO (21:17)
[2022-10-10] MEDS: Atorvastatin Calcium 10 MG Tablet PO (21:17)
[2022-10-10 22:19] LABS: Differential Comment SCANNED
[2022-10-10 22:40] LABS: Bedside Glucose 263 mg/dL (74-106)
[2022-10-11] VITALS (9 sets, daily range): BP systolic 101–116; BP diastolic 46–64; PULSE 47–65; RESP 12–24; TEMP 36.4–37.2; O2SAT 93–99
[2022-10-11 00:30] LABS: Bedside Glucose 255 mg/dL (74-106)
[2022-10-11] MEDS: Insulin Lispro 100 UNIT/ML INSULN.PEN SC ×3 (05:50→16:08)
[2022-10-11 06:16] LABS: Bedside Glucose 194 mg/dL (74-106)
[2022-10-11 06:56] LABS: Hematocrit 35.5 % (37-47); Hemoglobin 11.5 g/dL (12.0-15.0); Mean Corp Hgb Conc 32.4 g/dL (32-36); Mean Corpuscular Hgb 30.1 pg (27.0-32.0); Mean Corpuscular Volume 92.9 fL (81-99); Mean Platelet Vol. 11.9 fl (6.2-12.0); POSITIVE COUNT YES; RBC Distribution Width CV 13.5 % (11.6-14.6); Red Blood Count 3.82 M/mm3 (4.2-5.4); White Blood Count 5.9 K/mm3 (4.4-11.0)
[2022-10-11 07:02] LABS: Scan Indicated on CBC? Y/N YES- FLAGS NOTED
[2022-10-11 07:03] LABS: Platelet Count 24 K/mm3 (150-450)
[2022-10-11 07:21] LABS: Anion Gap 7 (5-15); BUN 35 mg/dL (7-18); BUN/Creat Ratio 43.1 RATIO (10-20); Chloride 104 mmol/L (98-107); Creatinine, Serum 0.81 mg/dL (0.55-1.02); EST Glomerular Filtration Rate 73 mL/min (>60); Est Glom Filt Rate - Afr Amer 88 mL/min (>60); Estimated Creatinine Clearance 45.98 ml/min; Glucose 199 mg/dL (74-106); Potassium 4.2 mmol/L (3.5-5.1); Sodium Level 137 mmol/L (136-145)
[2022-10-11 07:25] LABS: Differential Comment SCANNED
--- NOTE | 2022-10-11 08:20 | PN.HOSP_ITS ---
Reason for Visit Reason for Visit: Diagnoses Thrombocytopenia, unspecified (10/09/22) Acute kidney failure, unspecified (10/09/22) Hemorrhage, not elsewhere classified (10/09/22) Subjective Subjective No events overnight. Objective Data Objective Data Vital Signs: Vital Signs Temp Pulse Resp BP Pulse Ox O2 Del Method O2 Flow Rate 36.4 C L 50 L 16 116/64 97 Bi-pap 2 10/11/22 04:00 10/11/22 04:00 10/11/22 04:00 10/11/22 04:00 10/11/22 04:00 10/11/22 04:00 10/10/22 21:11 FiO2 35 10/11/22 04:00 Oxygen Flow Rate (L/min) 2 Oxygen Delivery Method Bi-pap Weight: 108 kg Body Mass Index (BMI) 44.9 Intake & Output: Intake and Output for Last 24 Hours 10/09/22 10/10/22 10/11/22 23:59 23:59 23:59 Intake Total 2320.0 / 2320.0 1650 / 1650 Output Total 1350 / 1350 Balance 2320.0 / 1970.0 300 / 300 Lab / Micro Data Result Diagrams: 10/11/22 06:38 10/11/22 06:38 Labs: Laboratory Results - last 24 hr 10/10/22 05:54: Diff Path Review Reviewed 10/10/22 12:10: POC Glucose 255 H 10/10/22 18:35: POC Glucose 224 H 10/10/22 19:12: WBC 7.7, RBC 3.72 L, Hgb 11.4 L, Hct 33.9 L, MCV 91.1, MCH 30.6, MCHC 33.6, RDW Std Deviation 45.1 H, RDW Coeff of Melissa 13.6, Plt Count 23 L*, MPV 11.9, Immature Gran % (Auto) 0.500, Neut % (Auto) 91.5 H, Lymph % (Auto) 5.9 L, [place] % (Auto) 2.1, Eos % (Auto) 0.0, Baso % (Auto) 0.0, Absolute Neuts (auto) 7.0, Absolute Lymphs (auto) 0.45 L, Nucleated RBC % 0, Differential Comment SCANNED, Diff Path Review November10/10/22 21:15: POC Glucose 263 H 10/11/22 05:50: POC Glucose 194 H 10/11/22 06:38: WBC 5.9, RBC 3.82 L, Hgb 11.5 L, Hct 35.5 L, MCV 92.9, MCH 30.1, MCHC 32.4, RDW Std Deviation 46.0 H, RDW Coeff of Melissa 13.5, Plt Count 24 L*, MPV 11.9, Differential Comment SCANNED, Diff Path Review November [facility] 10/11/22 06:38: Sodium 137, Potassium 4.2, Chloride 104, Carbon Dioxide 26.0, Anion Gap 7, BUN 35 H, Creatinine 0.81, Estim Creat Clear Calc 45.98, Est GFR (MDRD) Af Amer 88, Est GFR (MDRD) Non-Af 73, BUN/Creatinine Ratio 43.1 H, Glucose 199 H, Calcium 9.0 Physical Exam Const alert and no apparent distress Resp normal respiratory effort, no retractions, no use of accessory muscles and clear to auscultation bilaterally Cardio regular rate, regular rhythm, S1 normal heart sound and S2 normal heart sound GI normal to inspection, nondistended, normoactive bowel sounds, soft to palpation, non-tender and non-distended Assessment & Plan Assessment/Plan (1) Thrombocytopenia: PLAN: Improved Suspected ITP. Patient has not been hospitalized since the first and is not currently taking any heparin or enoxaparin, therefore, the likelihood of this being HIT is low. Continue with steroids at 40 mg of dexamethasone daily. Change to PO. Consult hematology Could be iatrogenic as well. Patient had been on ertapenem but was discontinued on the seventh that appears. We will also hold off on pregabalin, omeprazole, fluconazole, meclizine, venlafaxine and Xarelto Transfused 1 pack of platelets (2) ANDREA (acute kidney injury): PLAN: Resolved On admission, the patient appeared dry. Will give patient additional IV fluids. Patient did receive IV fluids in the emergency room. Will hold off on diuretics with furosemide and spironolactone for now Patient is alert and oriented, therefore acute uremia is ruled out. (3) Bleeding: PLAN: Per patient report: Patient was having vaginal as well as rectal bleeding. Would monitor for now given thrombocytopenia. If persist after improvement of her platelets, could consider consulting the appropriate specialist Hg currently stable. Continue to monitor. PLAN: Plan Chronic conditions * Diabetes mellitus type 2: Continue with the metformin. Add sliding scale insulin. * RILEY: Continue with BiPAP * Paroxysmal A-fib: Hold Xarelto given thrombocytopenia. Continue with diltiazem. * Hypertension * Morbid obesity * Hyperlipidemia: Continue statin * Takes modafinil: Unclear if this is related with narcolepsy or other. Looking through the side effects, thrombocytopenia does not appear to be a common 1 with that so we will continue. VTE prophylaxis: Not indicated given the patient's thrombocytopenia. No chemical prophylaxis and I would hold off on mechanical prophylaxis because that may incite further petechiae or bruising CODE STATUS: Dressed with the patient. Patient was to be full code Disposition: To be determined. Dissipate at least 48 hours of hospitalization given the patient's profound thrombocytopenia. High risk of or significant morbidity particular if she were to develop serous bleeding. Discussed with patient's daughter on the phone and explained ITP and the likely etiology of her thrombocytopenia. We will continue to monitor patient overnight and platelets are stable or improved, will anticipate patient being discharged on the with follow-up with hematology. Charges/Coding Visit Charges Inpatient E&M: 23584 Subs Hosp L2
--- NOTE | 2022-10-11 09:25 | ONC.PN.INPT ---
Subjective Subjective No bleeding Physical Exam Const alert General Appearance: cooperative and comfortable Nutritional Appearance: obese morbidly obese HEENT moist oral mucous membranes HEENT Narrative: No thrush Skin General Skin Exam: ecchymosis Neuro moves all extremities and no focal motor deficits Psych cooperative and speech normal Vital Signs Temperature 97.7 F L 10/11/22 09:21 Temperature Source Oral 10/11/22 09:21 Pulse Rate 47 L 10/11/22 09:21 Pulse Strength Normal (2+) 10/10/22 21:10 Respiratory Rate 17 10/11/22 09:21 Respiratory Effort Non-Labored 10/11/22 04:00 Respiratory Depth Normal 10/11/22 04:00 Respiratory Pattern Normal 10/11/22 04:00 Blood Pressure 112/48 L 10/11/22 09:21 Blood Pressure Mean 69 10/11/22 09:21 Blood Pressure Source Monitor 10/11/22 09:21 Blood Pressure Position Semi-Fowlers 10/11/22 09:21 Blood Pressure Location Right Arm 10/11/22 09:21 Pulse Ox 99 10/11/22 09:21 Oxygen Delivery Method Room Air 10/11/22 09:21 Oxygen Flow Rate (L/min) 2 10/10/22 21:11 Fraction of Inspired Oxygen (FIO2) 35 10/11/22 04:00 Laboratory Results - last 24 hr 10/10/22 05:54: Diff Path Review Reviewed 10/10/22 12:10: POC Glucose 255 H 10/10/22 18:35: POC Glucose 224 H 10/10/22 19:12: WBC 7.7, RBC 3.72 L, Hgb 11.4 L, Hct 33.9 L, MCV 91.1, MCH 30.6, MCHC 33.6, RDW Std Deviation 45.1 H, RDW Coeff of Melissa 13.6, Plt Count 23 L*, MPV 11.9, Immature Gran % (Auto) 0.500, Neut % (Auto) 91.5 H, Lymph % (Auto) 5.9 L, [place] % (Auto) 2.1, Eos % (Auto) 0.0, Baso % (Auto) 0.0, Absolute Neuts (auto) 7.0, Absolute Lymphs (auto) 0.45 L, Nucleated RBC % 0, Differential Comment SCANNED, Diff Path Review November10/10/22 21:15: POC Glucose 263 H 10/11/22 05:50: POC Glucose 194 H 10/11/22 06:38: WBC 5.9, RBC 3.82 L, Hgb 11.5 L, Hct 35.5 L, MCV 92.9, MCH 30.1, MCHC 32.4, RDW Std Deviation 46.0 H, RDW Coeff of Melissa 13.5, Plt Count 24 L*, MPV 11.9, Differential Comment SCANNED, Diff Path Review November10/11/22 06:38: Sodium 137, Potassium 4.2, Chloride 104, Carbon Dioxide 26.0, Anion Gap 7, BUN 35 H, Creatinine 0.81, Estim Creat Clear Calc 45.98, Est GFR (MDRD) Af Amer 88, Est GFR (MDRD) Non-Af 73, BUN/Creatinine Ratio 43.1 H, Glucose 199 H, Calcium 9.0 Laboratory Tests 10/02/22 10/09/22 10/09/22 08:05 05:40 10:45 Plt Count 236 3 L* < 2 L* 10/10/22 10/10/22 10/11/22 05:54 19:12 06:38 Plt Count 5 L* 23 L* 24 L* Diagnostic Data Brain CT 10/09/22 10:21 IMPRESSION: Chronic involutional changes of the brain. No acute hemorrhage. No interval change Electronically Signed: Porter Womack MD at 11:45 EDT Reading Location ID and State: [address] [place] [address] , Service support , Assessment & Plan Assessment/Plan (1) Thrombocytopenia: PLAN: Acute isolated severe thrombocytopenia with platelet count less than 10K at presentation. 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 Patient is now day 3 of 4 high-dose Decadron. Platelet count rising but at least partly due to transfusions. No active bleeding. Plan: 1. Continue high-dose Decadron, 40 mg total 4 days, last being October 12, 2022. 2. Hold anticoagulants and NSAIDs, use nonpharmacologic DVT prophylaxis. 3. Platelet transfusion if less than 10K or active bleeding. 4. If platelet count continues to improve and platelet count is above 50 K, patient may be discharged as far as hematology aspect of her illness with follow-up in 1 week. Nguyễn Zambrano MD Vacuum Pan Operator, [facility] Divisions of Medical Oncology & Hematology Department of Internal Medicine [place] [id number] This note was generated using a voice recognition system software. Although it was reviewed by the author prior to finalization, it may still contain incorrect words, spelling, and punctuation that were not noted when reviewing prior to saving. If a clinically significant typo or inaccurately typed phrase is noted, please notify the author.
[2022-10-11] MEDS: metFORMIN HCl 1,000 MG Tablet 1000 MG PO (09:31)
[2022-10-11] MEDS: morphine SR 15 MG Tablet 30 MG PO ×2 (09:31→21:27)
[2022-10-11] MEDS: metFORMIN HCl 500 MG Tablet PO (09:32)
[2022-10-11] MEDS: Insulin Glargine-YFGN 100 UNIT/ML Pen 6 UNIT SC (11:13)
[2022-10-11] MEDS: Ferrous Sulfate 325 MG Tablet PO ×2 (11:13→15:58)
[2022-10-11] MEDS: dilTIAZem CD 180 MG Capsule 360 MG PO (11:17)
[2022-10-11 11:55] LABS: Bedside Glucose 167 mg/dL (74-106)
[2022-10-11 12:10] LABS: Pathologist Review Reviewed
[2022-10-11 12:12] LABS: Pathologist Review Reviewed
[2022-10-11] MEDS: dexAMETHasone 4 MG Tablet 40 MG PO (15:57)
[2022-10-11] MEDS: 0.9% Saline Lock 10 ML Syringe IV (16:13)
[2022-10-11 16:31] LABS: Bedside Glucose 168 mg/dL (74-106)
[2022-10-11] MEDS: Nystatin Powder 15gm Bottle 1 APPLIC TOPICAL (21:27)
[2022-10-11] MEDS: Pramipexole Di-HCl 0.25 MG Tablet PO (21:27)
[2022-10-11] MEDS: Oxybutynin 5 MG Tablet PO (21:27)
[2022-10-11] MEDS: Fluticasone 0.05% 1 SPRAY NASAL.SRY NASAL (21:27)
[2022-10-11] MEDS: Atorvastatin Calcium 10 MG Tablet PO (21:27)
[2022-10-11 22:25] LABS: Bedside Glucose 199 mg/dL (74-106)
[2022-10-12] VITALS (8 sets, daily range): BP systolic 107–150; BP diastolic 51–61; PULSE 45–55; RESP 12–18; TEMP 36.3–36.7; O2SAT 93–99
[2022-10-12] MEDS: Insulin Lispro 100 UNIT/ML INSULN.PEN SC ×3 (05:11→16:54)
[2022-10-12 06:11] LABS: Absolute Lymphocyte Count 0.36 X10^3/uL (0.83-4.51); Absolute Neutrophil Count 3.5 X10^3/uL (2.0-7.7); Hematocrit 36.1 % (37-47); Hemoglobin 12.1 g/dL (12.0-15.0); Lymphocyte # 0.36 X10^3/ul (0.83-4.51); Lymphocyte % 9.1 % (19-41); Mean Corp Hgb Conc 33.5 g/dL (32-36); Mean Corpuscular Hgb 30.6 pg (27.0-32.0); Mean Corpuscular Volume 91.4 fL (81-99); Monocyte# 0.06 X10^3/uL; Monocyte% 1.5 % (0-10); NRBC Flagged by Analyzer 0 % (0-5); Neutrophil # 3.53 X10^3/uL (2.7-7.7); Neutrophil % 88.9 % (47-70); POSITIVE COUNT YES; POSITIVE DIFFERENTIAL YES; Platelet Count 34 K/mm3 (150-450); RBC Distribution Width CV 13.4 % (11.6-14.6); RBC Distribution Width SD 44.5 fl (35.1-43.9); Red Blood Count 3.95 M/mm3 (4.2-5.4)
[2022-10-12 06:14] LABS: Differential Indicated SCAN CRITERIA MET
[2022-10-12 06:30] LABS: Bedside Glucose 194 mg/dL (74-106)
[2022-10-12 06:56] LABS: Platelet Estimate MKD DEC (ADEQ)
--- NOTE | 2022-10-12 07:32 | PN.HOSP_ITS ---
Reason for Visit Reason for Visit: Diagnoses Thrombocytopenia, unspecified (10/09/22) Acute kidney failure, unspecified (10/09/22) Hemorrhage, not elsewhere classified (10/09/22) Subjective Subjective No events overnight. Feels well. Objective Data Objective Data Vital Signs: Vital Signs Temp Pulse Resp BP Pulse Ox O2 Del Method O2 Flow Rate 36.5 C L 50 L 18 115/61 97 Bi-pap 2 10/12/22 04:00 10/12/22 04:00 10/12/22 04:00 10/12/22 04:00 10/12/22 04:00 10/12/22 04:00 10/10/22 21:11 FiO2 35 10/12/22 04:00 Oxygen Flow Rate (L/min) 2 Oxygen Delivery Method Bi-pap Weight: 108 kg Body Mass Index (BMI) 44.9 Intake & Output: Intake and Output for Last 24 Hours 10/10/22 10/11/22 10/12/22 23:59 23:59 23:59 Intake Total 1650 / 1650 720 / 720 Output Total 1350 / 1350 350 / 350 Balance 300 / 300 370 / 370 Lab / Micro Data Result Diagrams: 10/12/22 05:41 10/11/22 06:38 Labs: Laboratory Results - last 24 hr 10/10/22 19:12: Diff Path Review Reviewed 10/11/22 06:38: Diff Path Review Reviewed 10/11/22 11:11: POC Glucose 167 H 10/11/22 16:07: POC Glucose 168 H 10/11/22 21:25: POC Glucose 199 H 10/12/22 05:10: POC Glucose 194 H 10/12/22 05:41: WBC 4.0 L, RBC 3.95 L, Hgb 12.1, Hct 36.1 L, MCV 91.4, MCH 30.6, MCHC 33.5, RDW Std Deviation 44.5 H, RDW Coeff of Melissa 13.4, Plt Count 34 L*, MPV 13.0 H, Immature Gran % (Auto) 0.500, Neut % (Auto) 88.9 H, Lymph % (Auto) 9.1 L , [place] % (Auto) 1.5, Eos % (Auto) 0.0, Baso % (Auto) 0.0, Absolute Neuts (auto) 3.5, Absolute Lymphs (auto) 0.36 L, Nucleated RBC % 0, Differential Comment , Diff Path Review May foll, Platelet Estimate MKD DEC Physical Exam Const alert and no apparent distress HEENT head/scalp atraumatic and moist oral mucous membranes Resp normal respiratory effort, no retractions, no use of accessory muscles and clear to auscultation bilaterally Cardio regular rate, regular rhythm, S1 normal heart sound and S2 normal heart sound GI normal to inspection, nondistended, normoactive bowel sounds, soft to palpation, non-tender and non-distended Extremity normal to inspection Skin Skin Narrative: Ecchymosis left forearm and upper left arm. Neuro oriented x3 Sensorium / Orientation: awake and alert Psych affect normal Assessment & Plan Assessment/Plan (1) Thrombocytopenia: PLAN: Improved Suspected ITP. Patient has not been hospitalized since the first and is not currently taking any heparin or enoxaparin, therefore, the likelihood of this being HIT is low. Continue with steroids at 40 mg of dexamethasone daily. Change to PO. Consult hematology Could be iatrogenic as well. Patient had been on ertapenem but was discontinued on the seventh that appears. We will also hold off on pregabalin, omeprazole, fluconazole, meclizine, venlafaxine and Xarelto Transfused 1 pack of platelets Seen by hematology and would recommend patient staying until her platelet count is 50,000 or greater. Plan is to monitor the patient at least another day. In the meantime, since this appears to be more due to ITP or possibly to antibiotics, will resume pregabalin, omeprazole, meclizine, venlafaxine. Still continue to hold Xarelto until platelets are at 100,000. (2) ANDREA (acute kidney injury): PLAN: Resolved On admission, the patient appeared dry. Will give patient additional IV fluids. Patient did receive IV fluids in the emergency room. Will hold off on diuretics with furosemide and spironolactone for now Patient is alert and oriented, therefore acute uremia is ruled out. (3) Bleeding: PLAN: Per patient report: Patient was having vaginal as well as rectal bleeding. Would monitor for now given thrombocytopenia. If persist after improvement of her platelets, could consider consulting the appropriate specialist Hg currently stable. Continue to monitor. PLAN: Plan Chronic conditions * Diabetes mellitus type 2: Continue with the metformin. Add sliding scale insulin. * RILEY: Continue with BiPAP * Paroxysmal A-fib: Hold Xarelto given thrombocytopenia. Continue with diltiazem. * Hypertension * Morbid obesity * Hyperlipidemia: Continue statin * Takes modafinil: Unclear if this is related with narcolepsy or other. Looking through the side effects, thrombocytopenia does not appear to be a common 1 with that so we will continue. VTE prophylaxis: Not indicated given the patient's thrombocytopenia. No chemical prophylaxis and I would hold off on mechanical prophylaxis because that may incite further petechiae or bruising CODE STATUS: Dressed with the patient. Patient was to be full code Disposition: To be determined. 10/11: Discussed with patient's daughter on the phone and explained ITP and the likely etiology of her thrombocytopenia. We will continue to monitor patient overnight and platelets are stable or improved, will anticipate patient being discharged on the with follow-up with hematology. Charges/Coding Visit Charges Inpatient E&M: 22269 Subs Hosp L2
[2022-10-12] MEDS: dilTIAZem CD 180 MG Capsule 360 MG PO (09:18)
[2022-10-12] MEDS: metFORMIN HCl 500 MG Tablet PO (09:19)
[2022-10-12] MEDS: metFORMIN HCl 1,000 MG Tablet 1000 MG PO (09:19)
[2022-10-12] MEDS: dexAMETHasone 4 MG Tablet 40 MG PO (09:20)
[2022-10-12] MEDS: Nystatin Powder 15gm Bottle 1 APPLIC TOPICAL ×2 (09:20→22:47)
[2022-10-12] MEDS: morphine SR 15 MG Tablet 30 MG PO ×2 (10:10→22:46)
[2022-10-12] MEDS: Ferrous Sulfate 325 MG Tablet PO ×2 (11:31→16:54)
[2022-10-12] MEDS: Insulin Glargine-YFGN 100 UNIT/ML Pen 6 UNIT SC (11:31)
[2022-10-12 12:00] LABS: Bedside Glucose 230 mg/dL (74-106)
[2022-10-12 12:43] LABS: Pathologist Review Reviewed
--- NOTE | 2022-10-12 13:45 | ONC.PN.INPT ---
Subjective Subjective Pt sitting up in chair watching TV. States she is tolerating steroids well, thus far with the exception of mild reflux. Is unable to identify identify any new bruises. Denies any overt episodes of bleeding. Per patient no vaginal bleeding she experienced upon arrival to the ED has since resolved. Physical Exam Const alert General Appearance: cooperative and comfortable Nutritional Appearance: obese morbidly obese HEENT moist oral mucous membranes HEENT Narrative: No thrush Skin General Skin Exam: ecchymosis Neuro moves all extremities and no focal motor deficits Psych cooperative and speech normal Vital Signs Temperature 98.1 F 10/12/22 09:13 Temperature Source Oral 10/12/22 09:13 Pulse Rate 46 L 10/12/22 09:13 Pulse Strength Normal (2+) 10/12/22 08:23 Respiratory Rate 18 10/12/22 09:13 Respiratory Effort Non-Labored 10/12/22 09:15 Respiratory Depth Normal 10/12/22 09:15 Respiratory Pattern Normal 10/12/22 09:15 Blood Pressure 108/53 L 10/12/22 09:13 Blood Pressure Mean 71 10/12/22 09:13 Blood Pressure Source Monitor 10/12/22 09:13 Blood Pressure Position Sitting 10/12/22 09:13 Blood Pressure Location Right Arm 10/12/22 09:13 Pulse Ox 98 10/12/22 09:13 Oxygen Delivery Method Nasal Cannula 10/12/22 09:15 Oxygen Flow Rate (L/min) 2 10/12/22 09:15 Fraction of Inspired Oxygen (FIO2) 35 10/12/22 04:00 Laboratory Results - last 24 hr 10/11/22 16:07: POC Glucose 168 H 10/11/22 21:25: POC Glucose 199 H 10/12/22 05:10: POC Glucose 194 H 10/12/22 05:41: WBC 4.0 L, RBC 3.95 L, Hgb 12.1, Hct 36.1 L, MCV 91.4, MCH 30.6, MCHC 33.5, RDW Std Deviation 44.5 H, RDW Coeff of Melissa 13.4, Plt Count 34 L*, MPV 13.0 H, Immature Gran % (Auto) 0.500, Neut % (Auto) 88.9 H, Lymph % (Auto) 9.1 L, [place] % (Auto) 1.5, Eos % (Auto) 0.0, Baso % (Auto) 0.0, Absolute Neuts (auto) 3.5, Absolute Lymphs (auto) 0.36 L, Nucleated RBC % 0, Differential Comment , Diff Path Review Reviewed, Platelet Estimate MKD DEC 10/12/22 11:31: POC Glucose 230 H Diagnostic Data Brain CT 10/09/22 10:21 IMPRESSION: Chronic involutional changes of the brain. No acute hemorrhage. No interval change Electronically Signed: Porter Womack MD at 11:45 EDT , Assessment & Plan Assessment/Plan (1) Thrombocytopenia: PLAN: Acute isolated severe thrombocytopenia with platelet count less than 10K at presentation. 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 Although, drug induced ITP typically resolves after 7 days of discontinuation of the offensive medication. Patient is now day 4 of 4 high-dose Decadron. Platelet count rising. No active bleeding. Plan: 1. IF platletes are <50,000 upon assessment 10/13/22 am, advise Decadron, 40 mg for an additional 2 days (total of 6 days), last being October 14, 2022. 2. Continue to hold anticoagulants and NSAIDs, use nonpharmacologic DVT prophylaxis. 3. Platelet transfusion if less than 10K or active bleeding. 4. If platelet count continues to improve and platelet count is above 50 K, patient may be discharged as far as hematology aspect of her illness with follow-up in 1 week. This note was generated using a voice recognition system software. Although it was reviewed by the author prior to finalization, it may still contain incorrect words, spelling, and punctuation that were not noted when reviewing prior to saving. If a clinically significant typo or inaccurately typed phrase is noted, please notify the author.
[2022-10-12 17:16] LABS: Bedside Glucose 253 mg/dL (74-106)
[2022-10-12] MEDS: Oxybutynin 5 MG Tablet PO (22:45)
[2022-10-12] MEDS: Methenamine Hippurate 1 GM Tablet PO (22:45)
[2022-10-12] MEDS: Atorvastatin Calcium 10 MG Tablet PO (22:45)
[2022-10-12] MEDS: Fluticasone 0.05% 1 SPRAY NASAL.SRY NASAL (22:46)
[2022-10-12] MEDS: Pramipexole Di-HCl 0.25 MG Tablet PO (22:46)
[2022-10-12] MEDS: Pregabalin 50 MG Capsule PO (22:46)
[2022-10-12] MEDS: 0.9% Saline Lock 10 ML Syringe IV (23:14)
[2022-10-12 23:35] LABS: Bedside Glucose 244 mg/dL (74-106)
[2022-10-13 01:24] VITALS: BP 116/50; PULSE 54; RESP 20; TEMP 36.5; O2SAT 98
[2022-10-13 01:35] VITALS: PULSE 46; RESP 12; RESP 21; O2SAT 98
[2022-10-13 04:42] VITALS: PULSE 43; RESP 12; O2SAT 97
[2022-10-13 06:45] VITALS: BP 130/71; PULSE 50; RESP 17; TEMP 37.1; O2SAT 99
[2022-10-13] MEDS: Insulin Lispro 100 UNIT/ML INSULN.PEN SC ×2 (06:52→11:58)
--- NOTE | 2022-10-13 07:29 | PN.HOSP_ITS ---
Reason for Visit Reason for Visit: Diagnoses Thrombocytopenia, unspecified (10/09/22) Acute kidney failure, unspecified (10/09/22) Hemorrhage, not elsewhere classified (10/09/22) Subjective Subjective No further bleeding. Objective Data Objective Data Vital Signs: Vital Signs Temp Pulse Resp BP Pulse Ox O2 Del Method O2 Flow Rate 37.1 C 50 L 17 130/71 H 99 Bi-pap 2 10/13/22 06:45 10/13/22 06:45 10/13/22 06:45 10/13/22 06:45 10/13/22 06:45 10/13/22 06:45 10/13/22 01:24 FiO2 25 10/13/22 04:42 Oxygen Flow Rate (L/min) 2 Oxygen Delivery Method Bi-pap Weight: 108 kg Body Mass Index (BMI) 44.9 Intake & Output: Intake and Output for Last 24 Hours 10/11/22 10/12/22 10/13/22 23:59 23:59 23:59 Intake Total 720 / 720 200 / 200 Output Total 350 / 350 Balance 370 / 370 200 / 200 Lab / Micro Data Result Diagrams: 10/13/22 07:05 10/13/22 07:05 Labs: Laboratory Results - last 24 hr 10/12/22 05:41: Diff Path Review Reviewed 10/12/22 11:31: POC Glucose 230 H 10/12/22 16:44: POC Glucose 253 H 10/12/22 22:58: POC Glucose 244 H Physical Exam Const alert and no apparent distress HEENT head/scalp atraumatic Skin Skin Narrative: petechiae resolved. bruising on left upper extremity Assessment & Plan Assessment/Plan (1) Thrombocytopenia: PLAN: Improved Suspected ITP. Patient has not been hospitalized since the first and is not currently taking any heparin or enoxaparin, therefore, the likelihood of this being HIT is low. Continue with steroids at 40 mg of dexamethasone daily. Change to PO. Consult hematology Could be iatrogenic as well. Patient had been on ertapenem but was discontinued on the seventh that appears. We will also hold off on pregabalin, omeprazole, fluconazole, meclizine, venlafaxine and Xarelto Transfused 1 pack of platelets Seen by hematology and would recommend patient staying until her platelet count is 50,000 or greater. Plan is to monitor the patient at least another day. In the meantime, since this appears to be more due to ITP or possibly to antibiotics, will resume pregabalin, omeprazole, meclizine, venlafaxine. Still continue to hold Xarelto until platelets are at 100,000. (2) ANDREA (acute kidney injury): PLAN: Resolved On admission, the patient appeared dry. Will give patient additional IV fluids. Patient did receive IV fluids in the emergency room. Will hold off on diuretics with furosemide and spironolactone for now Patient is alert and oriented, therefore acute uremia is ruled out. (3) Bleeding: PLAN: Per patient report: Patient was having vaginal as well as rectal bleeding. Would monitor for now given thrombocytopenia. If persist after improvement of her platelets, could consider consulting the appropriate specialist Hg currently stable. Continue to monitor. PLAN: Plan Chronic conditions * Diabetes mellitus type 2: Continue with the metformin. Add sliding scale insulin. * RILEY: Continue with BiPAP * Paroxysmal A-fib: Hold Xarelto given thrombocytopenia. Continue with diltiazem. * Hypertension * Morbid obesity * Hyperlipidemia: Continue statin * Takes modafinil: Unclear if this is related with narcolepsy or other. Looking through the side effects, thrombocytopenia does not appear to be a common 1 with that so we will continue. VTE prophylaxis: Not indicated given the patient's thrombocytopenia. No chemical prophylaxis and I would hold off on mechanical prophylaxis because that may incite further petechiae or bruising CODE STATUS: Dressed with the patient. Patient was to be full code Disposition: To be determined. 10/11: Discussed with patient's daughter on the phone and explained ITP and the likely etiology of her thrombocytopenia. We will continue to monitor patient overnight and platelets are stable or improved, will anticipate patient being discharged on the with follow-up with hematology.
[2022-10-13 07:35] LABS: Bedside Glucose 178 mg/dL (74-106)
[2022-10-13 07:45] LABS: Absolute Neutrophil Count 5.4 X10^3/uL (2.0-7.7); Hematocrit 37.3 % (37-47); Hemoglobin 12.4 g/dL (12.0-15.0); Lymphocyte % 4.9 % (19-41); Mean Corp Hgb Conc 33.2 g/dL (32-36); Mean Corpuscular Hgb 30.5 pg (27.0-32.0); Mean Corpuscular Volume 91.9 fL (81-99); Mean Platelet Vol. 13.1 fl (6.2-12.0); Monocyte# 0.34 X10^3/uL; Monocyte% 5.6 % (0-10); NRBC Flagged by Analyzer 0 % (0-5); Neutrophil # 5.42 X10^3/uL (2.7-7.7); POSITIVE COUNT YES; POSITIVE DIFFERENTIAL YES; RBC Distribution Width CV 13.5 % (11.6-14.6); RBC Distribution Width SD 45.6 fl (35.1-43.9); Red Blood Count 4.06 M/mm3 (4.2-5.4); White Blood Count 6.1 K/mm3 (4.4-11.0)
[2022-10-13 07:47] LABS: Differential Indicated SCAN CRITERIA MET; Platelet Count 48 K/mm3 (150-450)
[2022-10-13 08:01] LABS: Anion Gap 9 (5-15); BUN 24 mg/dL (7-18); BUN/Creat Ratio 32.3 RATIO (10-20); Calcium,Total 9.1 mg/dL (8.5-10.1); Chloride 102 mmol/L (98-107); Creatinine, Serum 0.74 mg/dL (0.55-1.02); EST Glomerular Filtration Rate 81 mL/min (>60); Est Glom Filt Rate - Afr Amer 98 mL/min (>60); Estimated Creatinine Clearance 37.24 ml/min; Glucose 188 mg/dL (74-106); Potassium 4.1 mmol/L (3.5-5.1); Sodium Level 137 mmol/L (136-145)
[2022-10-13 09:12] LABS: Red Cell Morphology NORM C+C NORMAL (NORM C&C)
--- NOTE | 2022-10-13 09:39 | PCM.TXEXTCAR ---
Diet Diet Order/Speech Therapy: 10/09/22 14:45 Diet: Consistent Carb - Calorie Controlled Food consistency:: Regular Liquid Consistency:: Regular/Thin How many daily calories?: 2000 calorie Routine Orders/Code Status O2 Frequency: BiPAP QHS Routine Lab Work: CBC (Mondays and for next 2 weeks. ) Code Status: Full Code Therapies Physical Therapy: Eval and Treat Occupational Therapy: Eval and Treat Problem/Diagnosis (1) Thrombocytopenia: Status: Acute Code(s): D69.6 - Thrombocytopenia, unspecified Plan: Improved Suspected ITP. Patient has not been hospitalized since the first and is not currently taking any heparin or enoxaparin, therefore, the likelihood of this being HIT is low. Continue with steroids at 40 mg of dexamethasone daily. Change to PO. Consult hematology Could be iatrogenic as well. Patient had been on ertapenem but was discontinued on the seventh that appears. We will also hold off on pregabalin, omeprazole, fluconazole, meclizine, venlafaxine and Xarelto Transfused 1 pack of platelets Seen by hematology and would recommend patient staying until her platelet count is 50,000 or greater. Plan is to monitor the patient at least another day. In the meantime, since this appears to be more due to ITP or possibly to antibiotics, will resume pregabalin, omeprazole, meclizine, venlafaxine. Still continue to hold Xarelto until platelets are at 100,000. (2) ANDREA (acute kidney injury): Status: Acute Code(s): N17.9 - Acute kidney failure, unspecified Plan: Resolved On admission, the patient appeared dry. Will give patient additional IV fluids. Patient did receive IV fluids in the emergency room. Will hold off on diuretics with furosemide and spironolactone for now Patient is alert and oriented, therefore acute uremia is ruled out. (3) Bleeding: Status: Acute Code(s): R58 - Hemorrhage, not elsewhere classified Plan: Per patient report: Patient was having vaginal as well as rectal bleeding. Would monitor for now given thrombocytopenia. If persist after improvement of her platelets, could consider consulting the appropriate specialist Hg currently stable. Continue to monitor. Plan Chronic conditions Diabetes mellitus type 2: Continue with the metformin. Add sliding scale insulin. RILEY: Continue with BiPAP Paroxysmal A-fib: Hold Xarelto given thrombocytopenia. Continue with diltiazem. Hypertension Morbid obesity Hyperlipidemia: Continue statin Takes modafinil: Unclear if this is related with narcolepsy or other. Looking through the side effects, thrombocytopenia does not appear to be a common 1 with that so we will continue. VTE prophylaxis: Not indicated given the patient's thrombocytopenia. No chemical prophylaxis and I would hold off on mechanical prophylaxis because that may incite further petechiae or bruising CODE STATUS: Dressed with the patient. Patient was to be full code Disposition: To be determined. 10/11: Discussed with patient's daughter on the phone and explained ITP and the likely etiology of her thrombocytopenia. We will continue to monitor patient overnight and platelets are stable or improved, will anticipate patient being discharged on the with follow-up with hematology. Allergies/Procedures Done in Hospital Allergies aspirin Allergy (Severe, Verified 10/09/22 15:15) Hives Penicillins Allergy (Severe, Verified 10/09/22 15:15) Anaphylaxis stops breathing Sulfa (Sulfonamide Antibiotics) Allergy (Severe, Verified 10/09/22 15:15) Anaphylaxis stops breathing latex Allergy (Verified 10/09/22 10:02) Rash Procedures: None Type of Care/Length of Stay Estimated LOS: Convalescent Care Less Than 30 days Type of Care Needed: Skilled Rehab Potential: Good Prognosis: Good Additional Orders/Day of Discharge Day of Discharge: 10/13/22 Dietary and Speech Recommendations Dietitian Recommendations/Changes: continue 2000 calorie controlled diet as tolerated. Discharge Plan Admission Admit Date/Time: 10/09/22 12:28 Primary Reason for Your Visit: thrombocytopenia Attending Provider: Peña Bailey Primary Care Provider: Rosa Silva Consulting Providers: Fernando Cheng ; Juan Jose Guerrier ; Nguyễn Zambrano ; Michael Leone ; Jaren Jackson ; Cisco D[place] ; Man Perez ; Kassidy Florentino PRINTING AGENT Discharge Orders/Prescriptions Prescriptions: Continued fluticasone propionate 1 SPRAY spray,suspension 1 spray NASAL QHS diltiazem HCl 360 mg Capsule,Extended Release 24 Hr 360 mg PO DAILY ferrous sulfate [iron] 325 mg (65 mg iron) Tablet 325 mg PO BID omeprazole 40 mg Capsule,Delayed Release(Dr/Ec) 40 mg PO DAILY multivitamin Tablet 1 tab PO DAILY acetaminophen 325 mg Tablet 650 mg PO Q4H PRN (Reason: Pain) bisacodyl 10 mg Suppository 10 mg OR DAILY PRN (Reason: Constipation) budesonide 0.5 mg/2 mL Suspension For Nebulization 0.5 mg INHALATION BID oxybutynin chloride 5 mg Tablet 5 mg PO QHS venlafaxine 75 mg capsule,extended release 24hr 75 mg PO DAILY atorvastatin [Lipitor] 10 mg Tablet 10 mg PO QHS meclizine 25 mg Tablet 25 mg PO TID PRN (Reason: Vertigo) pramipexole [Mirapex] 0.25 mg Tablet 0.25 mg PO QHS methenamine hippurate 1 gram Tablet 1 g PO BID 90 Days Qty: 180 3RF modafinil 200 mg tablet 150 mg PO DAILY 2 Days Qty: 3 0RF insulin glargine [Basaglar KwikPen U-100 Insulin] 100 unit/mL (3 mL) insulin pen 6 unit SUBCUT DAILY Qty: 30 0RF metformin 500 mg Tablet 500 mg PO DAILY metformin 1,000 mg Tablet 1,000 mg PO DAILY pregabalin 50 mg Capsule 50 mg PO BID morphine 30 mg tablet extended release 30 mg PO BID 3 Days Qty: 6 0RF Held Xarelto 15 mg Tablet 15 mg PO DINNER 30 Days Qty: 0 0RF Hold Instructions: until platelet count above 100,000 Discontinued furosemide 80 MG tablet 40 mg PO DAILY spironolactone 50 mg Tablet 50 mg PO DAILY potassium chloride 20 mEq tablet,ER particles/crystals 20 meq PO BID ertapenem 1 gram Recon Soln 1 g IV Q24 5 Days Qty: 5 0RF Rx Instructions: dx: esbl ecoli bacteremia fluconazole 150 mg Tablet 150 mg PO DAILY Referrals / Follow Up: Rosa Silva MD [Primary Care Provider] - Nguyễn Zambrano MD [Med Staff - Active Staff] - Within 2 Weeks Disposition Disposition (needs filled in before D/C Order can be placed): [facility]-Way Facility
--- NOTE | 2022-10-13 09:48 | DS.PCM_ITS ---
Providers Date of Admission: 10/09/22 Primary Care Physician: Dr. Rosa Silva MD Consultations 10/09/22 14:45 Consult: Oncology/Hematology Routine Consulting Provider: [facility] ([facility]) Reason for Consult: thrombocytopenia EMERGENT Consult: No MD Notified: Yes Date Notified: 10/09/22 Time Notified: 12:37 Method of Notification: ED Physician Initiated Reason For Visit: THROMBOCYTOPENIA Diagnosis Discharge Diagnosis (1) Thrombocytopenia: Status: Acute Code(s): D69.6 - Thrombocytopenia, unspecified Plan: Improved Suspected ITP. Patient has not been hospitalized since the first and is not currently taking any heparin or enoxaparin, therefore, the likelihood of this being HIT is low. Continue with steroids at 40 mg of dexamethasone daily. Change to PO. Consult hematology Could be iatrogenic as well. Patient had been on ertapenem but was discontinued on the seventh that appears. We will also hold off on pregabalin, omeprazole, fluconazole, meclizine, venlafaxine and Xarelto Transfused 1 pack of platelets Seen by hematology and would recommend patient staying until her platelet count is 50,000 or greater. Plan is to monitor the patient at least another day. In the meantime, since this appears to be more due to ITP or possibly to ant ibiotics, will resume pregabalin, omeprazole, meclizine, venlafaxine. Still continue to hold Xarelto until platelets are at 100,000. (2) ANDREA (acute kidney injury): Status: Acute Code(s): N17.9 - Acute kidney failure, unspecified Plan: Resolved On admission, the patient appeared dry. Will give patient additional IV fluids. Patient did receive IV fluids in the emergency room. Will hold off on diuretics with furosemide and spironolactone for now Patient is alert and oriented, therefore acute uremia is ruled out. (3) Bleeding: Status: Acute Code(s): R58 - Hemorrhage, not elsewhere classified Plan: Per patient report: Patient was having vaginal as well as rectal bleeding. Would monitor for now given thrombocytopenia. If persist after improvement of her platelets, could consider consulting the appropriate specialist Hg currently stable. Continue to monitor. Plan Chronic conditions * Diabetes mellitus type 2: Continue with the metformin. Add sliding scale insulin. * RILEY: Continue with BiPAP * Paroxysmal A-fib: Hold Xarelto given thrombocytopenia. Continue with diltiazem. * Hypertension * Morbid obesity * Hyperlipidemia: Continue statin * Takes modafinil: Unclear if this is related with narcolepsy or other. Looking through the side effects, thrombocytopenia does not appear to be a common 1 with that so we will continue. VTE prophylaxis: Not indicated given the patient's thrombocytopenia. No chemical prophylaxis and I would hold off on mechanical prophylaxis because that may incite further petechiae or bruising CODE STATUS: Dressed with the patient. Patient was to be full code Disposition: To be determined. 10/11: Discussed with patient's daughter on the phone and explained ITP and the likely etiology of her thrombocytopenia. We will continue to monitor patient overnight and platelets are stable or improved, will anticipate patient being discharged on the with follow-up with hematology. Medications at Discharge Home Medications fluticasone propionate 50 mcg/actuation nasal spray,suspension 1 spray QHS allergies 02/16/14 acetaminophen 325 mg tablet 650 mg PO Q4H PRN Pain 09/09/21 bisacodyl 10 mg rectal suppository 10 mg PA DAILY PRN Constipation 09/09/21 budesonide 0.5 mg/2 mL suspension for nebulization 0.5 mg inhalation BID sob 09/09/21 diltiazem HCl 360 mg capsule,24 hr,extended release 360 mg PO DAILY 09/09/21 ferrous sulfate 325 mg (65 mg iron) tablet (iron) 325 mg PO BID supplement 09/09/21 multivitamin 1 tab PO DAILY supplement 09/09/21 omeprazole 40 mg capsule,delayed release 40 mg PO DAILY gerd 09/09/21 oxybutynin chloride 5 mg tablet 5 mg PO QHS bladder spasms 09/09/21 venlafaxine 75 mg capsule,extended release 24 hr 75 mg PO DAILY 05/25/22 rivaroxaban 15 mg tablet (Xarelto) 15 mg PO DINNER 30 days #0 tabs 05/28/22 atorvastatin 10 mg tablet (Lipitor) 10 mg PO QHS 09/09/22 meclizine 25 mg tablet 25 mg PO TID PRN Vertigo 09/09/22 pramipexole 0.25 mg tablet (Mirapex) 0.25 mg PO QHS 09/09/22 insulin glargine 100 unit/mL (3 mL) subcutaneous pen (Basaglar KwikPen U-100 Insulin) 6 unit (0.06 mL) subcut DAILY diabetes #30 mL 09/26/22 methenamine hippurate 1 gram tablet 1 g PO BID 90 days #180 tabs 09/26/22 modafinil 200 mg tablet 150 mg PO DAILY 2 days #3 tabs 09/26/22 metformin 1,000 mg tablet 1,000 mg PO DAILY DM 10/09/22 metformin 500 mg tablet 500 mg PO DAILY DM 10/09/22 pregabalin 50 mg capsule 50 mg PO BID NEUROPATHY 10/09/22 morphine 30 mg tablet,extended release 30 mg PO BID PAIN 3 days #6 tabs 10/13/22 Hospital Course Operations None Procedures None Summary of Care Provided Minutes Spent on Discharge: 32 Hospital Course: pt presents with thrombocytopenia. Plt less than 2k. Suspected ITP. Did receive 1 pack of platelets and was started on 40mg of dexamethasone for 4 days. Today, her plt are 48,000. This is suspected to be ITP given response to steroids. Patient will follow up with Dr. Zambrano as outpt. Pt to resume Xarelto when platelets at 100k. Weight / BMI Weight Weight: 108 kg Body Mass Index (BMI) 44.9 ABG / Lab / Microbiology Data Result Diagrams: 10/13/22 07:05 10/13/22 07:05 Laboratory: Laboratory Results - last 24 hr 10/12/22 05:41: Diff Path Review Reviewed 10/12/22 11:31: POC Glucose 230 H 10/12/22 16:44: POC Glucose 253 H 10/12/22 22:58: POC Glucose 244 H 10/13/22 06:50: POC Glucose 178 H 10/13/22 07:05: WBC 6.1, RBC 4.06 L, Hgb 12.4, Hct 37.3, MCV 91.9, MCH 30.5, MCHC 33.2, RDW Std Deviation 45.6 H, RDW Coeff of Melissa 13.5, Plt Count 48 L*, MPV 13.1 H, Immature Gran % (Auto) 0.500, Neut % (Auto) 89.0 H, Lymph % (Auto) 4.9 L , [place] % (Auto) 5.6, Eos % (Auto) 0.0, Baso % (Auto) 0.0, Absolute Neuts (auto) 5.4, Absolute Lymphs (auto) 0.30 L, Nucleated RBC % 0, Platelet Estimate MOD DEC, RBC Morphology NORM C+C 10/13/22 07:05: Sodium 137, Potassium 4.1, Chloride 102, Carbon Dioxide 26.0, Anion Gap 9, BUN 24 H, Creatinine 0.74, Estim Creat Clear Calc 37.24, Est GFR (MDRD) Af Amer 98, Est GFR (MDRD) Non-Af 81, BUN/Creatinine Ratio 32.3 H, Glucose 188 H, Calcium 9.1 Meaningful Use Info Meaningful Use Diagnoses (Choose all that apply): None applicable Discharge Plan Admission Admit Date/Time: 10/09/22 12:28 Primary Reason for Your Visit: thrombocytopenia Attending Provider: Peña Bailey Primary Care Provider: Rosa Silva Consulting Providers: Fenrando Cheng ; Juan Jose Guerrier ; Nguyễn Zambrano ; Michael Leone ; Jaren Jackson ; Cisco Denton ; Man Perez ; Kassidy Florentino [employer] WORK[employer] HELPER Discharge Orders/Prescriptions Prescriptions: Continued fluticasone propionate 1 SPRAY spray,suspension 1 spray NASAL QHS diltiazem HCl 360 mg Capsule,Extended Release 24 Hr 360 mg PO DAILY ferrous sulfate [iron] 325 mg (65 mg iron) Tablet 325 mg PO BID omeprazole 40 mg Capsule,Delayed Release(Dr/Ec) 40 mg PO DAILY multivitamin Tablet 1 tab PO DAILY acetaminophen 325 mg Tablet 650 mg PO Q4H PRN (Reason: Pain) bisacodyl 10 mg Suppository 10 mg PA DAILY PRN (Reason: Constipation) budesonide 0.5 mg/2 mL Suspension For Nebulization 0.5 mg INHALATION BID oxybutynin chloride 5 mg Tablet 5 mg PO QHS venlafaxine 75 mg capsule,extended release 24hr 75 mg PO DAILY atorvastatin [Lipitor] 10 mg Tablet 10 mg PO QHS meclizine 25 mg Tablet 25 mg PO TID PRN (Reason: Vertigo) pramipexole [Mirapex] 0.25 mg Tablet 0.25 mg PO QHS methenamine hippurate 1 gram Tablet 1 g PO BID 90 Days Qty: 180 3RF modafinil 200 mg tablet 150 mg PO DAILY 2 Days Qty: 3 0RF insulin glargine [Basaglar KwikPen U-100 Insulin] 100 unit/mL (3 mL) insulin pen 6 unit SUBCUT DAILY Qty: 30 0RF metformin 500 mg Tablet 500 mg PO DAILY metformin 1,000 mg Tablet 1,000 mg PO DAILY pregabalin 50 mg Capsule 50 mg PO BID morphine 30 mg tablet extended release 30 mg PO BID 3 Days Qty: 6 0RF Held Xarelto 15 mg Tablet 15 mg PO DINNER 30 Days Qty: 0 0RF Hold Instructions: until platelet count above 100,000 Discontinued furosemide 80 MG tablet 40 mg PO DAILY spironolactone 50 mg Tablet 50 mg PO DAILY potassium chloride 20 mEq tablet,ER particles/crystals 20 meq PO BID ertapenem 1 gram Recon Soln 1 g IV Q24 5 Days Qty: 5 0RF Rx Instructions: dx: esbl ecoli bacteremia fluconazole 150 mg Tablet 150 mg PO DAILY Referrals / Follow Up: Rosa Silva MD [Primary Care Provider] - Nguyễn Zambrano MD [Med Staff - Active Staff] - Within 2 Weeks Disposition Disposition (needs filled in before D/C Order can be placed): [facility] Facility Charges/Coding Visit Charges Inpatient E&M: 02503 Disch Hosp >30min
[2022-10-13 10:45] VITALS: BP 125/53; PULSE 58; RESP 18; TEMP 37.2; O2SAT 98
[2022-10-13] MEDS: Methenamine Hippurate 1 GM Tablet PO (11:06)
[2022-10-13] MEDS: dexAMETHasone 4 MG Tablet 40 MG PO (11:06)
[2022-10-13] MEDS: Nystatin Powder 15gm Bottle 1 APPLIC TOPICAL (11:08)
[2022-10-13] MEDS: Pantoprazole Sodium 40 MG Tablet PO (11:08)
[2022-10-13] MEDS: dilTIAZem CD 180 MG Capsule 360 MG PO (11:09)
[2022-10-13] MEDS: metFORMIN HCl 500 MG Tablet PO (11:10)
[2022-10-13] MEDS: metFORMIN HCl 1,000 MG Tablet 1000 MG PO (11:10)
[2022-10-13] MEDS: morphine SR 15 MG Tablet 30 MG PO (11:12)
[2022-10-13] MEDS: Venlafaxine XR 75 MG Capsule PO (11:14)
[2022-10-13] MEDS: Pregabalin 50 MG Capsule PO (11:18)
[2022-10-13] MEDS: Insulin Glargine-YFGN 100 UNIT/ML Pen 6 UNIT SC (11:58)
[2022-10-13 12:20] LABS: Bedside Glucose 225 mg/dL (74-106)
--- NOTE | 2022-10-13 13:33 | NURSING ---
Attempted to call report to [facility] but was transferred three times to three different halls and was placed on hold for several minutes. Patient was sent with DC packet from this admission.
[2022-10-14 00:01] LABS: Pathologist Review May foll
[2022-10-14 00:02] LABS: Platelet Estimate MKD DEC (ADEQ)
== END 2022-10-13 13:20 | disposition skilled nursing facility (03) | DRG 813 ==
LOC: ED 12:08 → MS3 13:08
PROVIDERS: Emergency Provider Emergency Medicine; PCP Internal Medicine
DX: D69.3 Immune thrombocytopenic purpura (principal); I13.0 Hypertensive heart and chronic kidney disease with heart failure and stage 1 through stage 4 chronic kidney disease, or unspecified chronic kidney disease; N17.9 Acute kidney failure, unspecified; Z68.41 Body mass index [BMI] 40.0-44.9, adult; K62.5 Hemorrhage of anus and rectum; E11.42 Type 2 diabetes mellitus with diabetic polyneuropathy; I50.9 Heart failure, unspecified; E11.22 Type 2 diabetes mellitus with diabetic chronic kidney disease; I48.0 Paroxysmal atrial fibrillation; E66.01 Morbid (severe) obesity due to excess calories; E86.0 Dehydration; E78.00 Pure hypercholesterolemia, unspecified; J44.9 Chronic obstructive pulmonary disease, unspecified; Z79.4 Long term (current) use of insulin; N18.9 Chronic kidney disease, unspecified; G47.33 Obstructive sleep apnea (adult) (pediatric); N93.9 Abnormal uterine and vaginal bleeding, unspecified; G89.29 Other chronic pain; Z79.51 Long term (current) use of inhaled steroids; Z79.01 Long term (current) use of anticoagulants; Z79.84 Long term (current) use of oral hypoglycemic drugs; Z79.899 Other long term (current) drug therapy
CPT/HCPCS: 36415; 70450; 80048; 80053; 82962; 83615; 84100; 85025; 85027; 85384; 85610; 85730; 86900; 86901; 86965; 94002; 94003; 94762; 97110; 97162; 97166; 97530; 97535; 97802; 99285; J7030; J7040; P9035; A4216

== ENCOUNTER → 2022-10-09 | Outpatient (REF) | payer MEDICARE, MEDICAID, SELFPAY ==
[2022-10-09 08:37] LABS: Absolute Lymphocyte Count 1.48 X10^3/uL (0.83-4.51); Absolute Neutrophil Count 5.9 X10^3/uL (2.0-7.7); Basophil# 0.08 X10^3/uL; Basophil% 0.9 % (0-1); Eosinophil# 0.16 X10^3/uL; Eosinophils% 1.9 % (0-5); Hemoglobin 12.8 g/dL (12.0-15.0); Lymphocyte # 1.48 X10^3/ul (0.83-4.51); Lymphocyte % 17.2 % (19-41); Mean Corp Hgb Conc 33.7 g/dL (32-36); Mean Corpuscular Hgb 30.5 pg (27.0-32.0); Mean Corpuscular Volume 90.7 fL (81-99); Mean Platelet Vol. 13.9 fl (6.2-12.0); Monocyte# 0.96 X10^3/uL; Monocyte% 11.2 % (0-10); NRBC Flagged by Analyzer 0 % (0-5); Neutrophil # 5.88 X10^3/uL (2.7-7.7); Neutrophil % 68.5 % (47-70); POSITIVE COUNT YES; RBC Distribution Width SD 46.4 fl (35.1-43.9); Red Blood Count 4.19 M/mm3 (4.2-5.4); White Blood Count 8.6 K/mm3 (4.4-11.0)
[2022-10-09 09:08] LABS: Differential Indicated SCAN CRITERIA MET; Platelet Count 3 K/mm3 (150-450)
[2022-10-09 09:09] LABS: Differential Comment SCANNED
[2022-10-09 09:10] LABS: Platelet Estimate MKD DEC (ADEQ); Platelet Morphology LARGE
[2022-10-09 09:16] LABS: Magnesium 1.9 mg/dL (1.6-2.6)
[2022-10-09 12:10] LABS: Pathologist Review Reviewed
== END ==
LOC: OLS.SW 05:00
PROVIDERS: PCP Family Medicine; Referring Provider Internal Medicine; Visit Provider Internal Medicine
DX: E11.9 Type 2 diabetes mellitus without complications (principal); I10 Essential (primary) hypertension
CPT/HCPCS: 36415; 83735; 85025; 86140

== ENCOUNTER → 2022-10-15 | Outpatient (REF) | payer MEDICARE, MEDICAID, SELFPAY ==
[2022-10-15 08:47] LABS: Hematocrit 38.3 % (37-47); Hemoglobin 13.2 g/dL (12.0-15.0); Mean Corp Hgb Conc 34.5 g/dL (32-36); Mean Corpuscular Hgb 30.8 pg (27.0-32.0); Mean Corpuscular Volume 89.3 fL (81-99); Mean Platelet Vol. 12.4 fl (6.2-12.0); POSITIVE COUNT YES; Platelet Count 72 K/mm3 (150-450); RBC Distribution Width CV 13.5 % (11.6-14.6); RBC Distribution Width SD 43.9 fl (35.1-43.9); Red Blood Count 4.29 M/mm3 (4.2-5.4); White Blood Count 9.5 K/mm3 (4.4-11.0)
[2022-10-15 08:48] LABS: Scan Indicated on CBC? Y/N NO
== END ==
LOC: OLS.SW 05:00
PROVIDERS: PCP Internal Medicine; Visit Provider Internal Medicine
DX: J44.9 Chronic obstructive pulmonary disease, unspecified (principal)
CPT/HCPCS: 36415; 85027

== ENCOUNTER → 2022-10-22 | Outpatient (REF) | payer MEDICARE, MEDICAID, SELFPAY ==
[2022-10-22 08:59] LABS: Hematocrit 34.8 % (37-47); Hemoglobin 11.6 g/dL (12.0-15.0); Mean Corp Hgb Conc 33.3 g/dL (32-36); Mean Corpuscular Volume 105.1 fL (81-99); Mean Platelet Vol. 10.8 fl (6.2-12.0); Platelet Count 114 K/mm3 (150-450); RBC Distribution Width CV 16.2 % (11.6-14.6); RBC Distribution Width SD 60.1 fl (35.1-43.9); Red Blood Count 3.31 M/mm3 (4.2-5.4); White Blood Count 9.1 K/mm3 (4.4-11.0)
== END ==
LOC: OLS.SW 05:00
PROVIDERS: PCP Internal Medicine; Visit Provider Internal Medicine
DX: Z79.899 Other long term (current) drug therapy (principal)
CPT/HCPCS: 36415; 85027

== ENCOUNTER → 2022-10-29 | Outpatient (REF) | payer MEDICARE, MEDICAID, SELFPAY ==
[2022-10-29 08:57] LABS: Hematocrit 38.6 % (37-47); Hemoglobin 12.6 g/dL (12.0-15.0); Mean Corp Hgb Conc 32.6 g/dL (32-36); Mean Corpuscular Hgb 30.1 pg (27.0-32.0); Mean Corpuscular Volume 92.3 fL (81-99); Mean Platelet Vol. 9.4 fl (6.2-12.0); Platelet Count 193 K/mm3 (150-450); RBC Distribution Width CV 14.6 % (11.6-14.6); RBC Distribution Width SD 49.7 fl (35.1-43.9); Red Blood Count 4.18 M/mm3 (4.2-5.4); White Blood Count 8.4 K/mm3 (4.4-11.0)
[2022-10-29 09:15] LABS: Anion Gap 7 (5-15); BUN 13 mg/dL (7-18); BUN/Creat Ratio 14.9 RATIO (10-20); Calcium,Total 9.2 mg/dL (8.5-10.1); Chloride 99 mmol/L (98-107); Creatinine, Serum 0.87 mg/dL (0.55-1.02); EST Glomerular Filtration Rate 67 mL/min (>60); Est Glom Filt Rate - Afr Amer 81 mL/min (>60); Glucose 176 mg/dL (74-106); Magnesium 1.6 mg/dL (1.6-2.6); Potassium 3.3 mmol/L (3.5-5.1); Sodium Level 136 mmol/L (136-145)
== END ==
LOC: OLS.SW 05:00
PROVIDERS: PCP Internal Medicine; Visit Provider Internal Medicine
DX: E11.22 Type 2 diabetes mellitus with diabetic chronic kidney disease (principal); N18.32 Chronic kidney disease, stage 3b
CPT/HCPCS: 36415; 80048; 83735; 85027

== ENCOUNTER → 2022-11-05 | Outpatient (REF) | payer MEDICARE, MEDICAID, SELFPAY ==
[2022-11-05 07:45] LABS: Hemoglobin 10.2 g/dL (12.0-15.0); Mean Corp Hgb Conc 32.9 g/dL (32-36); Mean Corpuscular Hgb 30.4 pg (27.0-32.0); Mean Corpuscular Volume 92.3 fL (81-99); Mean Platelet Vol. 9.7 fl (6.2-12.0); Platelet Count 269 K/mm3 (150-450); RBC Distribution Width CV 14.9 % (11.6-14.6); RBC Distribution Width SD 50.4 fl (35.1-43.9); Red Blood Count 3.36 M/mm3 (4.2-5.4); White Blood Count 8.5 K/mm3 (4.4-11.0)
[2022-11-05 07:52] LABS: Anion Gap 5 (5-15); BUN 15 mg/dL (7-18); BUN/Creat Ratio 20.5 RATIO (10-20); Calcium,Total 8.5 mg/dL (8.5-10.1); Chloride 99 mmol/L (98-107); Creatinine, Serum 0.73 mg/dL (0.55-1.02); EST Glomerular Filtration Rate 83 mL/min (>60); Est Glom Filt Rate - Afr Amer 100 mL/min (>60); Glucose 207 mg/dL (74-106); Magnesium 1.7 mg/dL (1.6-2.6); Potassium 3.5 mmol/L (3.5-5.1); Sodium Level 133 mmol/L (136-145)
== END ==
LOC: OLS.SW 05:00
PROVIDERS: PCP Internal Medicine; Visit Provider Internal Medicine
DX: E11.9 Type 2 diabetes mellitus without complications (principal); N17.9 Acute kidney failure, unspecified
CPT/HCPCS: 36415; 80048; 83735; 85027

== ENCOUNTER → 2022-11-27 | Outpatient (REF) | payer MEDICARE, MEDICAID, SELFPAY ==
[2022-11-27 08:45] LABS: Hematocrit 34.5 % (37-47); Hemoglobin 11.2 g/dL (12.0-15.0); Mean Corp Hgb Conc 32.5 g/dL (32-36); Mean Corpuscular Hgb 30.4 pg (27.0-32.0); Mean Corpuscular Volume 93.5 fL (81-99); Mean Platelet Vol. 9.7 fl (6.2-12.0); Platelet Count 218 K/mm3 (150-450); RBC Distribution Width CV 15.4 % (11.6-14.6); RBC Distribution Width SD 52.7 fl (35.1-43.9); Red Blood Count 3.69 M/mm3 (4.2-5.4); White Blood Count 7.6 K/mm3 (4.4-11.0)
== END ==
LOC: OLS.SW 05:00
PROVIDERS: PCP Internal Medicine; Visit Provider Internal Medicine
DX: D64.9 Anemia, unspecified (principal)
CPT/HCPCS: 36415; 85027

== ENCOUNTER → 2022-12-04 | Outpatient (REF) | payer MEDICARE, MEDICAID, SELFPAY ==
[2022-12-04 08:27] LABS: Hematocrit 36.8 % (37-47); Mean Corp Hgb Conc 32.6 g/dL (32-36); Mean Corpuscular Hgb 30.5 pg (27.0-32.0); Mean Corpuscular Volume 93.4 fL (81-99); Platelet Count 213 K/mm3 (150-450); RBC Distribution Width CV 15.2 % (11.6-14.6); RBC Distribution Width SD 52.4 fl (35.1-43.9); Red Blood Count 3.94 M/mm3 (4.2-5.4); White Blood Count 7.9 K/mm3 (4.4-11.0)
[2022-12-04 08:37] LABS: Anion Gap 6 (5-15); BUN 25 mg/dL (7-18); BUN/Creat Ratio 25.8 RATIO (10-20); Calcium,Total 8.8 mg/dL (8.5-10.1); Chloride 101 mmol/L (98-107); Creatinine, Serum 0.97 mg/dL (0.55-1.02); EST Glomerular Filtration Rate 60 mL/min (>60); Est Glom Filt Rate - Afr Amer 72 mL/min (>60); Glucose 175 mg/dL (74-106); Potassium 3.5 mmol/L (3.5-5.1); Sodium Level 137 mmol/L (136-145)
== END ==
LOC: OLS.SW 05:00
PROVIDERS: PCP Internal Medicine; Visit Provider Internal Medicine
DX: D69.6 Thrombocytopenia, unspecified (principal); N17.9 Acute kidney failure, unspecified; N18.32 Chronic kidney disease, stage 3b
CPT/HCPCS: 36415; 80048; 85027

== ENCOUNTER → 2022-12-11 | Outpatient (REF) | payer MEDICARE, MEDICAID, SELFPAY ==
[2022-12-11 07:35] LABS: Hemoglobin 10.8 g/dL (12.0-15.0); Mean Corp Hgb Conc 32.7 g/dL (32-36); Mean Corpuscular Hgb 30.4 pg (27.0-32.0); Mean Platelet Vol. 9.8 fl (6.2-12.0); Platelet Count 206 K/mm3 (150-450); RBC Distribution Width CV 14.9 % (11.6-14.6); RBC Distribution Width SD 51.5 fl (35.1-43.9); Red Blood Count 3.55 M/mm3 (4.2-5.4); White Blood Count 7.9 K/mm3 (4.4-11.0)
== END ==
LOC: OLS.SW 05:00
PROVIDERS: PCP Internal Medicine; Visit Provider Internal Medicine
DX: D69.6 Thrombocytopenia, unspecified (principal)
CPT/HCPCS: 36415; 85027

== ENCOUNTER → 2022-12-18 | Outpatient (REF) | payer MEDICARE, MEDICAID, SELFPAY ==
[2022-12-18 08:21] LABS: Hematocrit 38.1 % (37-47); Hemoglobin 12.3 g/dL (12.0-15.0); Mean Corp Hgb Conc 32.3 g/dL (32-36); Mean Corpuscular Hgb 29.6 pg (27.0-32.0); Mean Corpuscular Volume 91.6 fL (81-99); Mean Platelet Vol. 9.7 fl (6.2-12.0); Platelet Count 273 K/mm3 (150-450); RBC Distribution Width CV 14.5 % (11.6-14.6); RBC Distribution Width SD 48.9 fl (35.1-43.9); Red Blood Count 4.16 M/mm3 (4.2-5.4); White Blood Count 9.3 K/mm3 (4.4-11.0)
== END ==
LOC: OLS.SW 05:00
PROVIDERS: PCP Internal Medicine; Visit Provider Internal Medicine
DX: D64.9 Anemia, unspecified (principal)
CPT/HCPCS: 36415; 85027

== ENCOUNTER 2022-12-23 14:02 | Inpatient (IN) | payer MEDICARE, MEDICAID, SELFPAY ==
[2022-12-23] VITALS (22 sets, daily range): BP systolic 84–149; BP diastolic 46–89; PULSE 56–101; RESP 12–22; TEMP 36.4–38.4; O2SAT 93–100; BMI 46.2; BMI 46.3
--- NOTE | 2022-12-23 14:25 | EDS_ITS ---
HPI History of Present Illness Chief Complaint: Weakness Detail of Chief Complaint: Generalized weakness Informant: patient Narrative Narrative: Patient presents to the emergency department via EMS from group home with complaint of generalized weakness. Patient at first was unsure why she was here. She is currently on oxygen which she says she has been on for couple of days typically when she gets pneumonia. Patient has had a slight cough and feels mildly short of breath. She describes dysuria and frequency. Patient also states that she gets cellulitis easily. Patient denies chest pain. She denies abdominal pain. She has had no vomiting or diarrhea. [facility] Medical History Anemia Anxiety and depression Arthritis Asthma Atrial fibrillation Back pain Benign hypertension Bilateral lower extremity edema BiPAP (biphasic positive airway pressure) dependence Cellulitis of left foot Cholelithiasis Chronic acquired lymphedema Chronic back pain Chronic malnutrition Chronic pain Chronic stasis dermatitis of left lower extremity Congestive heart failure (CHF) COPD (chronic obstructive pulmonary disease) Decreased pedal pulses Depression Diabetes Diabetic ulcer of left foot Diabetic ulcer of right foot Diabetic ulcer of toe of left foot Dialysis patient DVT (deep venous thrombosis) Elephantiasis GERD (gastroesophageal reflux disease) Hammertoe of left foot Hammertoe of left foot Heartburn High cholesterol History of edema History of kidney stones History of pain when walking History of stress test HLD (hyperlipidemia) Hoarseness Hypertension Increased BMI Insulin dependent diabetes mellitus Leg cramps Localized edema MRSA infection Non-smoker Nonhealing ulcer of left lower extremity with fat layer exposed Nonhealing ulcer of right lower extremity with fat layer exposed 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 On home oxygen therapy RILEY (obstructive sleep apnea) Osteoporosis PAF (paroxysmal atrial fibrillation) Peripheral neuropathy Renal lithiasis Rheumatic fever Rheumatoid arthritis RLS (restless legs syndrome) Seasonal allergies Shortness of breath on exertion Sleep apnea Type 2 diabetes mellitus Type 2 diabetes mellitus with diabetic polyneuropathy Type 2 diabetes mellitus with diabetic polyneuropathy Ulcer of left foot with fat layer exposed Ulcer of right foot with fat layer exposed Venous insufficiency Venous stasis ulcer of right thigh with fat layer exposed Venous ulcer of left lower extremity with varicose veins Venous ulcer of right lower extremity with varicose veins Home Medications fluticasone propionate 50 mcg/actuation nasal spray,suspension 1 spray QHS allergies 02/16/14 [History Last Taken 10/08/22] acetaminophen 325 mg tablet 650 mg PO Q4H PRN Pain 09/09/21 [History Last Taken 10/08/22] bisacodyl 10 mg rectal suppository 10 mg NH DAILY PRN Constipation 09/09/21 [History Last Taken Unknown] budesonide 0.5 mg/2 mL suspension for nebulization 0.5 mg inhalation BID sob 09/09/21 [History Last Taken 10/04/22] diltiazem HCl 360 mg capsule,24 hr,extended release 360 mg PO DAILY 09/09/21 [History Last Taken 10/09/22] ferrous sulfate 325 mg (65 mg iron) tablet (iron) 325 mg PO BID supplement 09/09/21 [History Last Taken 10/09/22] multivitamin 1 tab PO DAILY supplement 09/09/21 [History Last Taken 10/09/22] omeprazole 40 mg capsule,delayed release 40 mg PO DAILY gerd 09/09/21 [History Last Taken 10/09/22] oxybutynin chloride 5 mg tablet 5 mg PO QHS bladder spasms 09/09/21 [History Last Taken 10/08/22] venlafaxine 75 mg capsule,extended release 24 hr 75 mg PO DAILY 05/25/22 [History Last Taken 10/09/22] rivaroxaban 15 mg tablet (Xarelto) 15 mg PO DINNER 30 days #0 tabs 05/28/22 [Rx Last Taken 10/08/22] atorvastatin 10 mg tablet (Lipitor) 10 mg PO QHS 09/09/22 [History Last Taken 10/08/22] meclizine 25 mg tablet 25 mg PO TID PRN Vertigo 09/09/22 [History Last Taken Unknown] pramipexole 0.25 mg tablet (Mirapex) 0.25 mg PO QHS 09/09/22 [History Last Taken 10/08/22] insulin glargine 100 unit/mL (3 mL) subcutaneous pen (Basaglar KwikPen U-100 Insulin) 6 unit (0.06 mL) subcut DAILY diabetes #30 mL 09/26/22 [Rx Last Taken 10/08/22] methenamine hippurate 1 gram tablet 1 g PO BID 90 days #180 tabs 09/26/22 [Rx Last Taken 10/09/22] modafinil 200 mg tablet 150 mg PO DAILY 2 days #3 tabs 09/26/22 [Rx Last Taken 10/09/22] metformin 1,000 mg tablet 1,000 mg PO DAILY DM 10/09/22 [History Last Taken 10/09/22] pregabalin 50 mg capsule 50 mg PO BID NEUROPATHY 10/09/22 [History Last Taken 10/08/22] morphine 30 mg tablet,extended release 30 mg PO BID PAIN 3 days #6 tabs 10/13/22 [Rx Last Taken Unknown] doxycycline hyclate 100 mg tablet 100 mg PO BID 11/20/22 [History Last Taken Unknown] furosemide 40 mg tablet 40 mg PO DAILY 11/20/22 [History Last Taken Unknown] potassium chloride 20 mEq tablet,extended release 40 meq PO DAILY 11/20/22 [History Last Taken Unknown] spironolactone 25 mg tablet 12.5 mg PO DAILY 11/20/22 [History Last Taken Unknown] Allergy/AdvReac Type Severity Reaction Status Date / Time aspirin Allergy Severe Hives Verified 12/23/22 14:09 Penicillins Allergy Severe Anaphylaxis Verified 12/23/22 14:09 Sulfa (Sulfonamide Allergy Severe Anaphylaxis Verified 12/23/22 14:09 Antibiotics) latex Allergy Rash Verified 12/23/22 14:09 Family History Mother Heart disease Cancer pancreatic Father Heart disease CVA (cerebral vascular accident) Hypertension Cancer liver, lung Surgical History History of appendectomy History of cardiac catheterization History of cholecystectomy History of ERCP History of hysterectomy Hx of dilation and curettage Hx of toe surgery S/P laparoscopic cholecystectomy Social History housing: group home Smoking Status: Never smoker alcohol intake: never substance use type: does not use additional social history: currently residing at [facility] ROS ROS ED Review of Systems ROS Unobtainable: other Constitutional Constitutional ED: Reports fever(s) and lethargy; Denies chills, sweats or weight loss Eyes Eyes: Denies blurry vision, change in vision or diplopia ENT ENT ED: Denies rhinorrhea or sore throat Cardiovascular Cardiovascular: Denies chest pain, orthopnea or racing heartbeat Respiratory/Chest Respiratory/Chest: Reports cough and dyspnea; Denies dyspnea on exertion, orthopnea or sputum Gastrointestinal Gastrointestinal: Denies abdominal pain, diarrhea, nausea or vomiting Genitourinary Genitourinary ED: Denies dysuria, hematuria or urinary frequency Musculoskeletal Musculoskeletal: Denies arthralgias, back pain, myalgias or neck pain Integumentary Denies abscess, Abrasions or rash Neurologic Neurologic: Reports headache(s); Denies weakness Psychiatric Psychiatric: Denies anxiety, depression or suicidal thoughts Endocrine Endocrinology: Denies polydipsia, polyphagia or polyuria Hematologic/Lymphatic Hematologic/Lymphatic: Denies easy bleeding, easy bruising or lymphadenopathy Allergic/Immunologic Allergic/Immunologic ED: Denies mouth swelling, tongue swelling or urticaria EXAM Physical Exam Const Vital Signs: 12/23/22 14:05 12/23/22 15:09 12/23/22 15:16 Temperature 101.1 F H 100.3 F H Temperature Source Oral Oral Pulse Rate 101 H 92 Respiratory Rate 18 18 Respiratory Effort Normal Non-Labored Respiratory Pattern Normal Blood Pressure 142/62 H 149/64 H Blood Pressure Mean 88 92 Pulse Ox 93 94 Oxygen Delivery Method Nasal Cannula Nasal Cannula Oxygen Flow Rate (L/min) 4 4 Positive well nourished and well developed General Appearance ED: well developed and NAD HEENT Reports TM's clear and moist mucous membranes normocephalic and atraumatic; Negative for trauma or tenderness Tympanic Membrane ED: Yes TM's clear Eyes PERRL and EOMs intact bilaterally General Eye ED: Negative for pale conjunctiva or scleral icterus Neck no lymphadenopathy, supple and no JVD General: Negative for tenderness Chest Wall inspection of chest normal and palpation of chest normal Chest: Negative for tenderness Resp normal respiratory effort and clear to auscultation bilaterally Effort and Inspection: Negative for respiratory distress or pain with movement Auscultation: Negative for rhonchi, wheezes or diminished lung sounds Cardio regular rate, regular rhythm, S1 normal heart sound, S2 normal heart sound and no murmurs Peripheral Pulses: pulses 2+ throughout GI normal to inspection, nondistended, normoactive bowel sounds, soft to palpation, non-tender, non-distended and no masses Back/Spine no CVA tenderness and no thoracic nor lumbar tenderness Extremity Extremity Narrative: Faint erythema to both lower extremities. Normal pulses. General Extremety ED: Negative for edema General Extremity: Negative for edema Neuro oriented x3, CN's II-XII intact bilaterally, no sensory deficits noted and gait normal Sensorium / Orientation: awake, alert, oriented to person, oriented to place and oriented to time Motor Exam: strength 5/5 throughout and strength abnormal Psych mental status grossly normal Skin no rashes or lesions noted and no wounds MDM MDM MDM Narrative Medical decision making narrative: Patient presents with generalized weakness and urinary symptoms. Patient with low-grade fever. Concern for UTI and possible sepsis. Patient also on oxygen complaining of some mild dyspnea and cannot rule out pneumonia. CBC with differential obtained showed an elevated white count of 22.5 with platelet counts of 196. Chemistries unremarkable. Lactate was normal at 1.7. LFTs were normal. Urinalysis positive for UTI. Urine culture sent. Blood cultures ord ered. Patient started on meropenem as she has had prior positive culture for EBL E. coli. Patient had a chest x-ray that on my interpretation did not appreciate any obvious infiltrates. She had some pulmonary congestion noted. Case discussed with hospitalist will evaluate patient for admission. Lab Data Labs: Laboratory Results - last 24 hr 12/23/22 12/23/22 12/23/22 14:40 14:40 14:40 WBC 22.5 H RBC 3.88 L Hgb 11.6 L Hct 34.4 L MCV 88.7 MCH 29.9 MCHC 33.7 RDW Std Deviation 47.4 H RDW Coeff of Melissa 14.6 Plt Count 196 MPV 9.4 Immature Gran % (Auto) 0.600 Neut % (Auto) 90.8 H Lymph % (Auto) 2.2 L [place] % (Auto) 6.1 Eos % (Auto) 0.0 Baso % (Auto) 0.3 Absolute Neuts (auto) 20.4 H Absolute Lymphs (auto) 0.50 L Nucleated RBC % 0 Differential Comment SCANNED Sodium 140 Potassium 3.6 Chloride 103 Carbon Dioxide 30.0 Anion Gap 7 BUN 22 H Creatinine 0.90 Estim Creat Clear Calc 43.37 Est GFR (MDRD) Af Amer 79 Est GFR (MDRD) Non-Af 65 BUN/Creatinine Ratio 24.5 H Glucose 158 H Lactic Acid 1.7 Calcium 8.8 Total Bilirubin 0.60 AST 10 L ALT 15 Alkaline Phosphatase 114 Total Protein 6.7 Albumin 3.0 L Globulin 3.7 Albumin/Globulin Ratio 0.8 L Urine Color Urine Clarity Urine pH Ur Specific [place] Urine Protein Urine Glucose (UA) Urine Ketones Urine Occult Blood Urine Nitrite Urine Bilirubin Urine Urobilinogen Ur Leukocyte Esterase Urine RBC Urine WBC Ur Squamous Epith Cells Urine Bacteria Urine Mucus 12/23/22 14:55 WBC RBC Hgb Hct MCV MCH MCHC RDW Std Deviation RDW Coeff of Melissa Plt Count MPV Immature Gran % (Auto) Neut % (Auto) Lymph % (Auto) [place] % (Auto) Eos % (Auto) Baso % (Auto) Absolute Neuts (auto) Absolute Lymphs (auto) Nucleated RBC % Differential Comment Sodium Potassium Chloride Carbon Dioxide Anion Gap BUN Creatinine Estim Creat Clear Calc Est GFR (MDRD) Af Amer Est GFR (MDRD) Non-Af BUN/Creatinine Ratio Glucose Lactic Acid Calcium Total Bilirubin AST ALT Alkaline Phosphatase Total Protein Albumin Globulin Albumin/Globulin Ratio Urine Color Yellow Urine Clarity Clear Urine pH 6.5 Ur Specific [place] 1.010 Urine Protein 15 H Urine Glucose (UA) Normal Urine Ketones Negative Urine Occult Blood 25 H Urine Nitrite Positive H Urine Bilirubin Negative Urine Urobilinogen Normal Ur Leukocyte Esterase 100 H Urine RBC 0 SEEN Urine WBC 10-25 SEEN Ur Squamous Epith Cells 0 SEEN Urine Bacteria 2+ Urine Mucus 0 SEEN Radiography Diagnostic Testin view chest x-ray obtained interpreted by myself as no evidence of infiltrate or pneumothorax. There are some mild pulmonary congestion. EKG Initial EKG: Attestation: I personally reviewed and interpreted this EKG as follows: Comments: Sinus rhythm with a rate of 98 bpm with incomplete right bundle branch block and nonspecific ST changes Discharge Plan Triage Chief Complaint: Weakness ED Provider: Loan Culver Dx/Rx/DC Orders Clinical Impression: Acute UTI, Leukocytosis, Generalized weakness Prescriptions: No Action doxycycline hyclate 100 mg tablet 100 mg PO BID furosemide 40 mg tablet 40 mg PO DAILY potassium chloride 20 mEq tablet extended release 40 meq PO DAILY spironolactone 25 mg tablet 12.5 mg PO DAILY fluticasone propionate 1 SPRAY spray,suspension 1 spray NASAL QHS diltiazem HCl 360 mg Capsule,Extended Release 24 Hr 360 mg PO DAILY ferrous sulfate [iron] 325 mg (65 mg iron) Tablet 325 mg PO BID omeprazole 40 mg Capsule,Delayed Release(Dr/Ec) 40 mg PO DAILY multivitamin Tablet 1 tab PO DAILY acetaminophen 325 mg Tablet 650 mg PO Q4H PRN (Reason: Pain) bisacodyl 10 mg Suppository 10 mg [place] DAILY PRN (Reason: Constipation) budesonide 0.5 mg/2 mL Suspension For Nebulization 0.5 mg INHALATION BID oxybutynin chloride 5 mg Tablet 5 mg PO QHS venlafaxine 75 mg capsule,extended release 24hr 75 mg PO DAILY Xarelto 15 mg Tablet 15 mg PO DINNER 30 Days Qty: 0 0RF Hold Instructions: until platelet count above 100,000 atorvastatin [Lipitor] 10 mg Tablet 10 mg PO QHS meclizine 25 mg Tablet 25 mg PO TID PRN (Reason: Vertigo) pramipexole [Mirapex] 0.25 mg Tablet 0.25 mg PO QHS methenamine hippurate 1 gram Tablet 1 g PO BID 90 Days Qty: 180 3RF modafinil 200 mg tablet 150 mg PO DAILY 2 Days Qty: 3 0RF insulin glargine [Basaglar KwikPen U-100 Insulin] 100 unit/mL (3 mL) insulin pen 6 unit SUBCUT DAILY Qty: 30 0RF metformin 1,000 mg Tablet 1,000 mg PO DAILY pregabalin 50 mg Capsule 50 mg PO BID morphine 30 mg tablet extended release 30 mg PO BID 3 Days Qty: 6 0RF Primary Care Provider: Rosa Silva Referrals: Rosa Silva MD [Primary Care Provider] - Disposition Disposition: Acute Care Hospital [facility]
[2022-12-23] MEDS: Acetaminophen 325 MG Tablet 650 MG PO (14:45)
[2022-12-23 14:47] LABS: Absolute Neutrophil Count 20.4 X10^3/uL (2.0-7.7); Basophil# 0.07 X10^3/uL; Basophil% 0.3 % (0-1); Hematocrit 34.4 % (37-47); Hemoglobin 11.6 g/dL (12.0-15.0); Lymphocyte % 2.2 % (19-41); Mean Corp Hgb Conc 33.7 g/dL (32-36); Mean Corpuscular Hgb 29.9 pg (27.0-32.0); Mean Corpuscular Volume 88.7 fL (81-99); Mean Platelet Vol. 9.4 fl (6.2-12.0); Monocyte# 1.38 X10^3/uL; Monocyte% 6.1 % (0-10); NRBC Flagged by Analyzer 0 % (0-5); Neutrophil # 20.42 X10^3/uL (2.7-7.7); Neutrophil % 90.8 % (47-70); POSITIVE DIFFERENTIAL YES; Platelet Count 196 K/mm3 (150-450); RBC Distribution Width CV 14.6 % (11.6-14.6); RBC Distribution Width SD 47.4 fl (35.1-43.9); Red Blood Count 3.88 M/mm3 (4.2-5.4); White Blood Count 22.5 K/mm3 (4.4-11.0)
[2022-12-23 14:48] LABS: Differential Indicated SCAN CRITERIA MET
[2022-12-23 15:05] LABS: ALB/GLOB Ratio 0.8 RATIO (0.9-2.4); AST(SGOT) 10 U/L (15-37); Alanine Aminotransfer ALT/SGPT 15 U/L (13-56); Alkaline Phosphatase 114 U/L (45-117); Anion Gap 7 (5-15); BUN 22 mg/dL (7-18); BUN/Creat Ratio 24.5 RATIO (10-20); Calcium,Total 8.8 mg/dL (8.5-10.1); Chloride 103 mmol/L (98-107); EST Glomerular Filtration Rate 65 mL/min (>60); Est Glom Filt Rate - Afr Amer 79 mL/min (>60); Estimated Creatinine Clearance 43.37 ml/min; Globulin 3.7 g/dL (2.2-4.2); Glucose 158 mg/dL (74-106); Potassium 3.6 mmol/L (3.5-5.1); Protein, Total 6.7 g/dL (6.4-8.2); Sodium Level 140 mmol/L (136-145)
[2022-12-23] MEDS: 0.9% Normal Saline 1,000 ML 150 ML IV (15:06)
[2022-12-23 15:09] LABS: Mucous, Urine 0 SEEN /hpf (<or=2+); Red Blood Cells-Urine 0 SEEN /hpf (0-5); Squamous Epithelial Cells - UA 0 SEEN /hpf (5-10)
[2022-12-23 15:10] LABS: Color, Urine Yellow (Yellow); Glucose, Dipstick Normal (Normal); Ketone-Dipstick Negative (Negative); Leukocyte Esterase-Dipstick 100 /ul (Negative); Nitrite-Dipstick Positive (Negative); Occult Blood-Urine 25 /ul (Negative); Protein-Dipstick 15 mg/dl (Negative); Urine Bilirubin Dipstick Negative (Negative); Urine Clarity Clear (Clear); Urine Urobilinogen Normal (Normal); Urine pH 6.5 (5.0 - 8.0)
[2022-12-23 15:11] LABS: Differential Comment SCANNED
[2022-12-23 15:14] LABS: Lactic Acid 1.7 mmol/L (0.4-1.9)
[2022-12-23 15:27] LABS: Bacteria 2+ /hpf (None Seen); White Blood Cells 10-25 SEEN /hpf (0-5)
--- NOTE | 2022-12-23 15:42 | RAD_ITS ---
STUDY: X-RAY CHEST REASON FOR EXAM: Female, 72 years old. fever TECHNIQUE: Single AP portable view of the chest. COMPARISON: 09/22/2022. FINDINGS: The lungs are clear and expanded. There is no demonstrated pleural abnormality. Normal size heart. Normal mediastinum and leda. Normal visualized pulmonary arteries. Normal visualized aortic arch and descending thoracic aorta. There are diffuse degenerative changes of the visualized thoracic spine. Normal visualized ribs, clavicles, and shoulders. There is no demonstrated abnormality of the visualized soft tissue structures of the upper abdomen. RAD/Chest 1 View (Portable) IMPRESSION: No definite acute or significant abnormality seen. Electronically Signed: Gurdeep Pritchard MD at 16:24 EDT ,
--- NOTE | 2022-12-23 16:04 | PCM.HP.STD ---
HPI - General General Date of Admission: 12/23/22 Date of Service: 12/23/22 Chief Complaint: Generalized weakness HPI Narrative SANDY ORONA, is a 72 F who presented to the emergency department at [facility] from the nursing facility at which she resides complaining of generalized weakness. Reports for the last couple days she has felt like she has a urinary tract infection. She is reported dysuria and urinary frequency. She gets intermittent urinary tract infections. She indicated she was thinking of having them checked her but just had not yet. She has had generalized weakness. The patient is not excessively ambulatory at baseline but she feels overall she is more debilitated than she had been previously. She has had fevers and here her Tmax was 101.1 at the time of arrival. She denies any chills, nausea, vomiting, chest pain or shortness of breath. She was placed on 4 L supplemental oxygen at arrival as she indicates she intermittently is on 4 L at the intermediate. I was able to decrease her oxygen to 2 L during the time of my exam and she held her oxygen saturations at 94%. She has had no diarrhea and states she is moving her bowels normally. No melena or hematochezia. She denies any new focal pain and had overall been doing well. Vital signs on presentation showed a temperature of 101.1, heart rate 101, blood pressure 142/62, oxygen was between 93 and 96% on 4 L. While I was examining her I decreased her oxygen to 2 L and she was stable at 94%. CBC shows significant leukocytosis with a white count of 22.5 and a left shift showing a 90.8% neutrophilia. She has a chronic mild stable anemia and her platelet count is normal. She does have a history of ITP. Chemistry shows normal renal function, normal electrolytes, normal liver function and her BNP was normal. Lactic acid was normal at 1.7. Her urine looks infected with positive nitrites as well as leuk esterase, 10-25 white cells per high-power field and 2+ bacteria. X-ray shows no acute abnormality. I reviewed the history of her urine cultures and she has had an ESBL producing E. coli previously in August 2022. It was sensitive to meropenem so we have initiated meropenem in the emergency department. They are going to start the meropenem there and complete it and monitor her blood pressure following with a tentative plan to admit to [facility] however if she gets hypotensive after antibiotics are initiated due to Gram negative infection we will consider ICU admission. I discussed this with the nurse who is at the bedside at the time of my evaluation in the emergency department. [facility] Medical History (Updated 12/23/22 @ 16:[address] Renetta Cramer, DO) Acute ITP Anemia Anxiety and depression Arthritis Asthma Atrial fibrillation Back pain Benign hypertension Bilateral lower extremity edema BiPAP (biphasic positive airway pressure) dependence Cellulitis of left foot Cholelithiasis Chronic acquired lymphedema Chronic back pain Chronic malnutrition Chronic pain Chronic stasis dermatitis of left lower extremity Congestive heart failure (CHF) COPD (chronic obstructive pulmonary disease) Decreased pedal pulses Depression Diabetes Diabetic ulcer of left foot Diabetic ulcer of right foot Diabetic ulcer of toe of left foot Dialysis patient DVT (deep venous thrombosis) Elephantiasis GERD (gastroesophageal reflux disease) Hammertoe of left foot Hammertoe of left foot Heartburn High cholesterol History of edema History of kidney stones History of pain when walking History of stress test HLD (hyperlipidemia) Hoarseness Hypertension Increased BMI Insulin dependent diabetes mellitus Leg cramps Localized edema MRSA infection Non-smoker Nonhealing ulcer of left lower extremity with fat layer exposed Nonhealing ulcer of right lower extremity with fat layer exposed [facility] resident On home oxygen therapy RILEY (obstructive sleep apnea) Osteoporosis PAF (paroxysmal atrial fibrillation) Peripheral neuropathy Renal lithiasis Rheumatic fever Rheumatoid arthritis RLS (restless legs syndrome) Seasonal allergies Shortness of breath on exertion Sleep apnea Type 2 diabetes mellitus Type 2 diabetes mellitus with diabetic polyneuropathy Type 2 diabetes mellitus with diabetic polyneuropathy Ulcer of left foot with fat layer exposed Ulcer of right foot with fat layer exposed Venous insufficiency Venous stasis ulcer of right thigh with fat layer exposed Venous ulcer of left lower extremity with varicose veins Venous ulcer of right lower extremity with varicose veins Home Medications fluticasone propionate 50 mcg/actuation nasal spray,suspension 1 spray QHS allergies 02/16/14 [History Last Taken 10/08/22] acetaminophen 325 mg tablet 650 mg PO Q4H PRN Pain 09/09/21 [History Last Taken 10/08/22] bisacodyl 10 mg rectal suppository 10 mg NH DAILY PRN Constipation 09/09/21 [History Last Taken Unknown] diltiazem HCl 360 mg capsule,24 hr,extended release 360 mg PO DAILY 09/09/21 [History Last Taken 10/09/22] ferrous sulfate 325 mg (65 mg iron) tablet (iron) 325 mg PO BID supplement 09/09/21 [History Last Taken 10/09/22] multivitamin 1 tab PO DAILY supplement 09/09/21 [History Last Taken 10/09/22] omeprazole 40 mg capsule,delayed release 40 mg PO DAILY gerd 09/09/21 [History Last Taken 10/09/22] oxybutynin chloride 5 mg tablet 5 mg PO QHS bladder spasms 09/09/21 [History Last Taken 10/08/22] venlafaxine 75 mg capsule,extended release 24 hr 75 mg PO DAILY 05/25/22 [History Last Taken 10/09/22] rivaroxaban 15 mg tablet (Xarelto) 15 mg PO DINNER 30 days #0 tabs 05/28/22 [Rx Last Taken 10/08/22] atorvastatin 10 mg tablet (Lipitor) 10 mg PO QHS 09/09/22 [History Last Taken 10/08/22] meclizine 25 mg tablet 25 mg PO TID PRN Vertigo 09/09/22 [History Last Taken Unknown] pramipexole 0.25 mg tablet (Mirapex) 0.25 mg PO QHS 09/09/22 [History Last Taken 10/08/22] insulin glargine 100 unit/mL (3 mL) subcutaneous pen (Basaglar KwikPen U-100 Insulin) 6 unit (0.06 mL) subcut DAILY diabetes #30 mL 09/26/22 [Rx Last Taken 10/08/22] modafinil 200 mg tablet 150 mg PO DAILY 2 days #3 tabs 09/26/22 [Rx Last Taken 10/09/22] pregabalin 50 mg capsule 50 mg PO BID NEUROPATHY 10/09/22 [History Last Taken 10/08/22] potassium chloride 20 mEq tablet,extended release 40 meq PO DAILY 11/20/22 [History Last Taken Unknown] spironolactone 25 mg tablet 12.5 mg PO DAILY 11/20/22 [History Last Taken Unknown] fluticasone furoate 100 mcg/actuation blister powder for inhalation (Arnuity Ellipta) 1 inh inhalation QHS COPD 12/23/22 [History Last Taken 12/22/22] furosemide 20 mg tablet 20 mg PO DAILY EDEMA 12/23/22 [History Last Taken 12/22/22] furosemide 80 mg tablet 80 mg PO DAILY EDEMA 12/23/22 [History Last Taken 12/23/22] metformin 850 mg tablet 850 mg PO DAILY DM 12/23/22 [History Last Taken 12/23/22] methenamine hippurate 1 gram tablet 1 g PO BID UTI 12/23/22 [History Last Taken 12/23/22] triamcinolone acetonide 0.1 % topical cream 1 applic topical DAILY ITCHING 12/23/22 [History Last Taken 12/22/22] Allergy/AdvReac Type Severity Reaction Status Date / Time aspirin Allergy Severe Hives Verified 12/23/22 14:09 Penicillins Allergy Severe Anaphylaxis Verified 12/23/22 14:09 Sulfa (Sulfonamide Allergy Severe Anaphylaxis Verified 12/23/22 14:09 Antibiotics) latex Allergy Rash Verified 12/23/22 14:09 Family History Mother Heart disease Cancer pancreatic Father Heart disease CVA (cerebral vascular accident) Hypertension Cancer liver, lung Surgical History History of appendectomy History of cardiac catheterization History of cholecystectomy History of ERCP History of hysterectomy Hx of dilation and curettage Hx of toe surgery S/P laparoscopic cholecystectomy Social History housing: intermediate Smoking Status: Never smoker alcohol intake: never substance use type: does not use additional social history: currently residing at [facility] Constitutional Constitutional: Reports fatigue, fever(s), malaise and weakness; Denies anorexia, change in weight, chills, night sweats or other Eyes Eyes: Denies blurry vision, change in eye color, change in vision, discharge from eye(s), double vision, erythema, eye pain, loss of vision or other ENT HEENT: Denies abnormal hearing, dysphagia, ear pain, epistaxis, headache(s), hearing loss, nasal congestion, nasal discharge, post nasal drip, sinus pressure, sore throat or other Cardiovascular Cardiovascular: Denies chest pain, claudication, dyspnea on exertion, edema, lightheadedness, orthopnea, palpitations, paroxysmal nocturnal dyspnea, rapid heart rate, syncope or other Respiratory/Chest Respiratory/Chest: Denies cough, dyspnea, excessive phlegm production, hemoptysis, productive cough, shortness of breath at rest, shortness of breath with exertion, wheezing or other Gastrointestinal Gastrointestinal: Denies abdominal pain, coffee ground emesis, constipation, diarrhea, dyspepsia, hematemesis, hematochezia, loose stools, melena, nausea, vomiting or other Genitourinary Genitourinary: Reports burning urination, dysuria, urinary frequency and urinary urgency; Denies difficulty urinating, hematuria, nocturia, urinary hesitancy, urinary incontinence or other Musculoskeletal Musculoskeletal: Reports back pain, joint pain and joint stiffness; Denies arthralgias, joint swelling, myalgias, neck pain or other Neurologic Neurologic: Reports abnormal gait; Denies abnormal speech, confusion, disequilibrium, dizziness, focal weakness, headache(s), numbness, paresthesias, seizure-like activity, seizures, syncope, tingling, tremor(s) or other Psychiatric Psychiatric: Reports depression Endocrine Endocrinology: Denies change in body appearance, cold intolerance, excessive sweating, heat intolerance, polydipsia, polyuria or other Hematologic/Lymphatic Hematologic/Lymphatic: Denies anemia, easy bleeding, easy bruising, lymphadenopathy or other Allergic/Immunologic Allergic/Immunologic: Denies rhinitis, hives, eczemia, asthma or other Vital Signs Vital Signs Vital Signs: 12/23/22 14:05 12/23/22 15:09 12/23/22 15:16 Temperature 101.1 F H 100.3 F H Temperature Source Oral Oral Pulse Rate 101 H 92 Respiratory Rate 18 18 Respiratory Effort Normal Non-Labored Respiratory Pattern Normal Blood Pressure 142/62 H 149/64 H Blood Pressure Mean 88 92 Pulse Ox 93 94 Oxygen Delivery Method Nasal Cannula Nasal Cannula Oxygen Flow Rate (L/min) 4 4 Weight Weight: 114.7 kg Body Mass Index (BMI) 46.2 Physical Exam Const alert, oriented x3, no apparent distress and well nourished Constitutional Narrative: Morbidly obese, white female, lying in bed, nursing at bedside, patient is sleepy but arousable and when aroused is able to interact normally and is alert and oriented x4, is chronically ill-appearing General Appearance: cooperative HEENT normocephalic, head/scalp atraumatic and hearing grossly normal bilaterally HEENT Narrative: Edentulous, Mallampati 2, no thrush Eyes PERRL, EOMs intact bilaterally and conjunctivae normal Eyes Narrative: No scleral icterus Neck no lymphadenopathy, supple and no JVD Neck Narrative: Neck is short and thick, trachea is midline, cardiac murmur that radiates to bilateral carotids but no bruits Resp normal respiratory effort, no retractions, no use of accessory muscles and clear to auscultation bilaterally Auscultation: Negative for crackles, rhonchi or wheezes Cardio regular rate, regular rhythm, S1 normal heart sound, S2 normal heart sound, no rub, no gallops and no clicks; Negative for no murmurs Cardio Narrative: 3 out of 6 systolic murmur loudest at the right upper sternal border and radiates to bilateral carotids GI normal to inspection, nondistended, normoactive bowel sounds, soft to palpation and non-tender GI Narrative: Large protuberant abdomen Extremity Extremity Narrative: Trace bilateral lower extremity edema, no cyanosis or clubbing Skin No no rashes or lesions noted, No no wounds, skin turgor normal, no jaundice, no petechiae and no mottling Skin Narrative: Bilateral lower extremities with chronic venous stasis changes, few scattered wounds but no signs of infection, mild intertrigo in his yeast Neuro oriented x3, CN's II-XII intact bilaterally, moves all extremities and no focal motor deficits Neuro Narrative: Generalized weakness with proximal musculature more affected than lower Speech: speech normal Psych affect normal Psych Narrative: Very pleasant, appropriately interactive Results Lab / Micro Data Attestation: I reviewed the patient's lab results. Result Diagrams: 12/23/22 14:40 12/23/22 14:40 Labs: Laboratory Results - last 24 hr 12/23/22 14:40: WBC 22.5 H, RBC 3.88 L, Hgb 11.6 L, Hct 34.4 L, MCV 88.7, MCH 29.9, MCHC 33.7, RDW Std Deviation 47.4 H, RDW Coeff of Melissa 14.6, Plt Count 196, MPV 9.4, Immature Gran % (Auto) 0.600, Neut % (Auto) 90.8 H, Lymph % (Auto) 2.2 L, [place] % (Auto) 6.1, Eos % (Auto) 0.0, Baso % (Auto) 0.3, Absolute Neuts (auto) 20.4 H, Absolute Lymphs (auto) 0.50 L, Nucleated RBC % 0, Differential Comment SCANNED 12/23/22 14:40: Sodium 140, Potassium 3.6, Chloride 103, Carbon Dioxide 30.0, Anion Gap 7, BUN 22 H, Creatinine 0.90, Estim Creat Clear Calc 43.37, Est GFR (MDRD) Af Amer 79, Est GFR (MDRD) Non-Af 65, BUN/Creatinine Ratio 24.5 H, Glucose 158 H, Calcium 8.8, Total Bilirubin 0.60, AST 10 L, ALT 15, Alkaline Phosphatase 114, Total Protein 6.7, Albumin 3.0 L, Globulin 3.7, Albumin/Globulin Ratio 0.8 L 12/23/22 14:40: Lactic Acid 1.7 12/23/22 14:55: Urine Color Yellow, Urine Clarity Clear, Urine pH 6.5, Ur Specific [place] 1.010, Urine Protein 15 H, Urine Glucose (UA) Normal, Urine Ketones Negative, Urine Occult Blood 25 H, Urine Nitrite Positive H, Urine Bilirubin Negative, Urine Urobilinogen Normal, Ur Leukocyte Esterase 100 H, Urine RBC 0 SEEN, Urine WBC 10-25 SEEN, Ur Squamous Epith Cells 0 SEEN, Urine Bacteria 2+, Urine Mucus 0 SEEN Assessment & Plan Assessment/Plan (1) Acute UTI: (2) Leukocytosis: (3) Generalized weakness: (4) Fever: PLAN: Plan Fever/leukocytosis -Suspect related to acute UTI as UA looks dirty -Blood and urine cultures were sent and pending -Her most recent positive urine culture was an ESBL producing E. coli that was sensitive to meropenem -Meropenem initially in the emergency department and will continue on the floor -To be held in the emergency department until infusion is completed to assure blood pressure remained stable as with gram-negative infections bacterial lysis with antibiotics can sometimes cause a cytokine response that causes acute hypotension and her admission status may need to be changed to ICU if this occurs -Does not meet sepsis criteria at this time -We will check procalcitonin Suspected urinary tract infection -See above Leukocytosis -White counts 22.5 with a marked left shift -Antibiotics as above -Await culture results Generalized weakness -Suspect exacerbated by acute infection -PT/OT consultation -Patient is already a resident at [facility] -Consult social work and case management to facilitate discharge back to her facility once medically stable Paroxysmal atrial fibrillation with RVR -Continue diltiazem 360 mg daily -Continue Xarelto Cardiac murmur -Would recommend outpatient echocardiogram -Sounds like aortic stenosis type murmur with radiation to bilateral carotids and most prominent at right upper sternal border 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 per hematology documentation from previous recent visit -Platelets remain stable -We will continue Xarelto as long as platelet counts above 50,000 Chronic mild anemia -Counts are stable -Continue to monitor as patient has had previous bleeding rectally -Patient is on chronic iron supplementation and will continue DM-2 -Hold metformin -Continue sliding scale -Continue Lantus 6 units -Accu-Cheks as ordered RILEY -Continue BiPAP with naps and at night -ABG is pending as patient was somewhat sleepy on presentation however she was alert and oriented x4 Hypertension/hyperlipidemia -Continue atorvastatin 10 ems at at bedtime as -Continue Lasix 80 mg daily -Continue Aldactone 12.5 mg daily -Continue Cardizem 360 mg daily History of asthma -Continue home inhalers Seasonal allergies -Continue home nasal sprays History of vertigo -Hold as needed meclizine GERD -Continue home PPI Urinary incontinence -Continue home oxybutynin Morbid obesity -BMI is 46.3 -Recommend weight loss -Complicates treatment, prognosis, outcomes Depression -Continue home venlafaxine DVT prophylaxis -Continue Xarelto CODE STATUS Full code Charges/Coding Visit Charges Inpatient E&M: 66427 Init Hosp L3
[2022-12-23 16:21] LABS: BNP,B-Type NATRIURETIC PEPTIDE 41.7 pg/mL (0-100)
[2022-12-23 16:31] LABS: Allen Test Positive; Base Excess 6 mmol/L (-2 to +2); Bicarbonate 30.1 mmol/L (22-26); Blood Gas Specimen Type ART; O2 Delivery Device Cannula; PO2 68 mmHG (75-100); SITE R Radial; SO2 94 % (95-99); Total Carbon Dioxide 31 mmol/L; pCO2 43.4 mmHg (35-45); pH 7.45 (7.35-7.45)
--- NOTE | 2022-12-23 17:16 | NURSING ---
supervisor aircraft cleaning Ad notified of conversation initiated by Dr. Cramer regarding pt's admission, verbal orders she gave to ER nurse, vital signs, possible need for transfer and need for sepsis protocol.
--- NOTE | 2022-12-23 17:16 | PCM.HOSP.N ---
Hospitalist Note Despite my conversation with the emergency department prior to her being admitted, the patient was inadvertently transferred to the floor prior to antibiotic completion and repeat assessment of her blood pressure. Antibiotics are ending blood pressure is now 84/46. She now meets sepsis criteria and we will go ahead and start sepsis bundle with fluid boluses hoping she is fluid responsive at this point. Alterations in her medications were made stopping her antihypertensives and sepsis bundle/order set was initiated. We will also add vancomycin and check an MRSA PCR. Sepsis Attestation Sepsis Alert: Yes Sepsis Attestation: Agree w/Sepsis Date exam was performed: 12/23/22 Time exam was performed: 17:19 Possible Source of Sepsis: Genitourinary Sepsis Organ Dysfunction Criteria Present: SBP < 90 mmHg or MAP < 65 mmHg Fluid Resuscitation Fluid resuscitation indicated?: Yes Fluid Resuscitation ordered: 30 ml/kg fluid bolus ordered
[2022-12-23] MEDS: 0.9% Normal Saline 1,000 ML 999 ML IV ×4 (17:30→21:48)
[2022-12-23 18:02] LABS: Bedside Glucose 181 mg/dL (74-106)
[2022-12-23] MEDS: Insulin Lispro 100 UNIT/ML INSULN.PEN SC (18:17)
--- NOTE | 2022-12-23 18:56 | PCM.RX.CS ---
Consult Pharmacy has been consulted to manage selected antiobiotic: Vancomycin Type of Consult: New start Suspected Infection: Sepsis Labs: Sodium 140 mmol/L (136-145) 12/23/22 14:40 Potassium 3.6 mmol/L (3.5-5.1) 12/23/22 14:40 Chloride 103 mmol/L (98-107) 12/23/22 14:40 Carbon Dioxide 30.0 mmol/L (21.0-32.0) 12/23/22 14:40 Anion Gap 7 (5-15) 12/23/22 14:40 BUN 22 mg/dL (7-18) H 12/23/22 14:40 Creatinine 0.90 mg/dL (0.55-1.02) 12/23/22 14:40 Est GFR (MDRD) Af Amer 79 mL/min (>60) 12/23/22 14:40 Est GFR (MDRD) Non-Af 65 mL/min (>60) 12/23/22 14:40 BUN/Creatinine Ratio 24.5 RATIO (10-20) H 12/23/22 14:40 Glucose 158 mg/dL (74-106) H 12/23/22 14:40 Microbiology: Microbiology 12/23/22 14:45 Nasal Secretion SARS-CoV-2 & FLU Antigen (Rapid) - Final Pharmacy Plan for Drug Dosing: NEW START IV VANCOMYCIN Consulting Physician: Mirella CORBIN Indication: SEPSIS Goal Trough: 15-20 MG/DL SrCr: SCR 0.9 MG/DL CrCl: 63 ML/MIN USING ADJUSTED BW Comments: LOADING DOSE OF 2000MG GIVEN 12/24 1847 Vancomycin Dose: WILL START 1500MG Q12 (12/24 @ 0700) AND GET A TROUGH PRIOR TO 4TH TOTAL DOSE OF REGIMEN. Pending Level: 12/25/22 @ 0630 Pharmacy Service will continue to monitor and adjust dosing as required.
[2022-12-23] MEDS: Budesonide Respules 0.5 MG/2 ML AMPUL.NEB. INHALATION (19:17)
--- NOTE | 2022-12-23 19:33 | NURSING ---
1641 Dr. Cramer initiated backline text communication requesting update on BP. text chg RN and Primary RN together: 71 just checked : Oh good.. how much of the fluid is in? Chg RN and Primary RN: 1L she just started the 2nd bolus. looks like 3.5 L are ordered are we really giving that much? Dr. Cramer: Ok. Let me know where we are BP rodriguez after all in and I will document the follow up. That's how much she should get. Let me know where we are blood pressure at the end of the 2nd L and I will let you know if we should continue his body weight base.
[2022-12-23 20:27] LABS: Bedside Glucose 142 mg/dL (74-106)
[2022-12-23 20:46] LABS: Procalcitonin 0.25 ng/mL (0.00-0.09)
[2022-12-23 20:48] LABS: Allen Test Negative; Base Excess 3 mmol/L (-2 to +2); Bicarbonate 28.4 mmol/L (22-26); Blood Gas Specimen Type ART; FI02 30; Mode NIV; O2 Delivery Device BiPAP; PO2 85 mmHG (75-100); SITE R Brach; SO2 96 % (95-99); Total Carbon Dioxide 30 mmol/L; pCO2 48.8 mmHg (35-45); pH 7.37 (7.35-7.45)
--- NOTE | 2022-12-23 20:53 | NURSING ---
report called to Tracee in ICU
--- NOTE | 2022-12-23 20:55 | NURSING ---
Eneida freeman in [place] , the sister notified pt is getting transferred to icu room 3
--- NOTE | 2022-12-23 21:03 | NURSING ---
Lopez ROBERSON. DAUGHTER CALLED IN FOR AN UPDATE. PT SAID OK TO GIVE INFORMATION. UPDATE GIVEN
[2022-12-23] MEDS: Pramipexole Di-HCl 0.25 MG Tablet PO (21:31)
[2022-12-23] MEDS: Atorvastatin Calcium 10 MG Tablet PO (21:31)
[2022-12-23] MEDS: Ferrous Sulfate 325 MG Tablet PO (21:31)
[2022-12-23] MEDS: Menthol/Lanolin/Calamine/Znox 113 GM Tube 1 APPLIC TOPICAL (21:31)
[2022-12-23] MEDS: Pregabalin 50 MG Capsule PO (21:31)
[2022-12-23] MEDS: Oxybutynin 5 MG Tablet PO (21:31)
[2022-12-23] MEDS: Fluticasone 0.05% 1 SPRAY NASAL.SRY NASAL (21:32)
[2022-12-23] MEDS: Nystatin Powder 15gm Bottle 1 APPLIC TOPICAL (21:32)
--- NOTE | 2022-12-23 22:02 | CPS ---
Patient moved to ICU. Patient was able to verify she wears a BIPAP at home. She thinks her pressures are 18/15. Patient pressures adjusted to 16/10
[2022-12-23 23:02] LABS: M R Staph aureus DNA By PCR POSITIVE (Negative); Probe Check PASS
[2022-12-24] VITALS (23 sets, daily range): BP systolic 106–137; BP diastolic 46–87; PULSE 47–75; RESP 12–23; TEMP 36.3–36.8; O2SAT 91–100
[2022-12-24 05:18] LABS: Absolute Lymphocyte Count 0.71 X10^3/uL (0.83-4.51); Absolute Neutrophil Count 9.1 X10^3/uL (2.0-7.7); Basophil# 0.05 X10^3/uL; Basophil% 0.5 % (0-1); Eosinophil# 0.03 X10^3/uL; Eosinophils% 0.3 % (0-5); Hematocrit 32.6 % (37-47); Hemoglobin 10.3 g/dL (12.0-15.0); Lymphocyte # 0.71 X10^3/ul (0.83-4.51); Lymphocyte % 6.7 % (19-41); Mean Corp Hgb Conc 31.6 g/dL (32-36); Mean Corpuscular Hgb 29.8 pg (27.0-32.0); Mean Corpuscular Volume 94.2 fL (81-99); Mean Platelet Vol. 9.5 fl (6.2-12.0); Monocyte% 6.6 % (0-10); NRBC Flagged by Analyzer 0 % (0-5); Neutrophil # 9.13 X10^3/uL (2.7-7.7); Neutrophil % 85.7 % (47-70); Platelet Count 142 K/mm3 (150-450); RBC Distribution Width CV 14.8 % (11.6-14.6); RBC Distribution Width SD 50.9 fl (35.1-43.9); Red Blood Count 3.46 M/mm3 (4.2-5.4); White Blood Count 10.6 K/mm3 (4.4-11.0)
[2022-12-24 05:47] LABS: ALB/GLOB Ratio 0.7 RATIO (0.9-2.4); AST(SGOT) 11 U/L (15-37); Alanine Aminotransfer ALT/SGPT 15 U/L (13-56); Albumin, Serum 2.3 g/dL (3.2-5.0); Alkaline Phosphatase 88 U/L (45-117); Anion Gap 4 (5-15); BUN 15 mg/dL (7-18); BUN/Creat Ratio 25.5 RATIO (10-20); Chloride 112 mmol/L (98-107); Creatinine, Serum 0.59 mg/dL (0.55-1.02); EST Glomerular Filtration Rate 106 mL/min (>60); Est Glom Filt Rate - Afr Amer 128 mL/min (>60); Estimated Creatinine Clearance 37.24 ml/min; Globulin 3.1 g/dL (2.2-4.2); Glucose 121 mg/dL (74-106); Magnesium 1.8 mg/dL (1.6-2.6); Phosphorus 2.9 mg/dL (2.5-4.9); Potassium 3.6 mmol/L (3.5-5.1); Protein, Total 5.4 g/dL (6.4-8.2); Sodium Level 144 mmol/L (136-145)
--- NOTE | 2022-12-24 06:06 | EX.PCM.CONCC ---
Assessment & Plan Assessment/Plan (1) Acute UTI: PLAN: Plan RECOMMENDATIONS: 1. Continue empiric antimicrobials, pending evaluation by infectious diseases. 2. Hold baseline diuretic regimen for 1 additional day, pending stability and hemodynamic status. 3. Continue baseline Xarelto regimen. 4. Continue PAP therapy nightly. 5. Encourage incentive spirometer use and mobilize patient as tolerated. IMPRESSIONS: 1. Acute UTI The patient was admitted to the hospital with symptoms concerning for urinary tract source of infection. The patient has grown ESBL E. coli in the past. Although the patient was transferred to the ICU after she became hypotensive, the patient responded avidly to fluid resuscitation and remains hemodynamically stable this morning. Continue broad-spectrum antimicrobials, as ordered, pending finalized culture results. Infectious diseases consultation is currently pending. 2.??History of diabetes mellitus/paroxysmal atrial fibrillation/chronic pain syndrome/morbid obesity/obstructive sleep apnea Complicates care, management, recovery and prognosis.? Continue home medications as indicated. This note was generated with [employer] dictation software. It may contain incorrect words, spelling, and punctuation that were not noted in checking the note before signing. HPI Consult Data Date of Consult: 12/25/22 HPI Narrative Reason for Consultation: Sepsis HPI Narrative: The patient is a 72-year-old female, with a history as outlined below, who presented to the emergency department on December 23 with generalized weakness, dysuria and increasing urinary frequency. The patient does have a history of ESBL E. coli UTI in August 2022. The patient currently resides at [facility]. The patient has a medical history significant for lymphedema, venous insufficiency, type 2 diabetes mellitus, obstructive sleep apnea and morbid obesity.?She does report compliance with the use of BiPAP on a nightly basis. On presentation to the emergency department, the patient was noted to be febrile, but was otherwise hemodynamically stable. Initial laboratory evaluation revealed an elevated white blood cell count to 22,000. Arterial blood gas obtained on 2 L/min demonstrated a pH of 7.45 with a PCO2 of 43 and PO2 of 68. Chemistry profile was unrevealing. Lactate was noted to be 1.7. Urinalysis was positive for nitrites and leukocyte Estrace. 2+ urine bacteria was noted. Chest x-ray demonstrated no acute cardiopulmonary process. The patient was initially started on antimicrobials and transferred to a regular medicine floor, where she ultimately became hypotensive and required initiation of sepsis fluids. She was then transferred to the ICU. Nevertheless, the patient responded to supplemental IV fluid hydration and never had to be started on vasopressor support. This morning, the patient is hemodynamically stable. She tolerated BiPAP overnight without complication. [facility] Medical History (Updated 12/24/22 @ 09:[address] Renetta Cramer, DO) Acute ITP Anemia Anxiety and depression Arthritis Asthma Atrial fibrillation Back pain Benign hypertension Bilateral lower extremity edema BiPAP (biphasic positive airway pressure) dependence Cellulitis of left foot Cholelithiasis Chronic acquired lymphedema Chronic back pain Chronic malnutrition Chronic pain Chronic stasis dermatitis of left lower extremity Congestive heart failure (CHF) COPD (chronic obstructive pulmonary disease) Decreased pedal pulses Depression Diabetes Diabetic ulcer of left foot Diabetic ulcer of right foot Diabetic ulcer of toe of left foot Dialysis patient DVT (deep venous thrombosis) Elephantiasis GERD (gastroesophageal reflux disease) Hammertoe of left foot Hammertoe of left foot Heartburn High cholesterol History of edema History of kidney stones History of pain when walking History of stress test HLD (hyperlipidemia) Hoarseness Hypertension Increased BMI Insulin dependent diabetes mellitus Leg cramps Localized edema MRSA infection Non-smoker Nonhealing ulcer of left lower extremity with fat layer exposed Nonhealing ulcer of right lower extremity with fat layer exposed [facility] resident On home oxygen therapy RILEY (obstructive sleep apnea) Osteoporosis PAF (paroxysmal atrial fibrillation) Peripheral neuropathy Renal lithiasis Rheumatic fever Rheumatoid arthritis RLS (restless legs syndrome) Seasonal allergies Shortness of breath on exertion Sleep apnea Type 2 diabetes mellitus Type 2 diabetes mellitus with diabetic polyneuropathy Type 2 diabetes mellitus with diabetic polyneuropathy Ulcer of left foot with fat layer exposed Ulcer of right foot with fat layer exposed Venous insufficiency Venous stasis ulcer of right thigh with fat layer exposed Venous ulcer of left lower extremity with varicose veins Venous ulcer of right lower extremity with varicose veins Home Medications fluticasone propionate 50 mcg/actuation nasal spray,suspension 1 spray QHS allergies 02/16/14 [History Last Taken 12/22/22] acetaminophen 325 mg tablet 650 mg PO Q4H PRN Pain 09/09/21 [History Last Taken 10/08/22] bisacodyl 10 mg rectal suppository 10 mg WI DAILY PRN Constipation 09/09/21 [History Last Taken Unknown] diltiazem HCl 360 mg capsule,24 hr,extended release 360 mg PO DAILY HTN 09/09/21 [History Last Taken 12/23/22] ferrous sulfate 325 mg (65 mg iron) tablet (iron) 325 mg PO BID supplement 09/09/21 [History Last Taken 12/23/22] multivitamin 1 tab PO DAILY supplement 09/09/21 [History Last Taken 12/23/22] omeprazole 40 mg capsule,delayed release 40 mg PO DAILY gerd 09/09/21 [History Last Taken 12/23/22] oxybutynin chloride 5 mg tablet 5 mg PO QHS bladder spasms 09/09/21 [History Last Taken 12/22/22] venlafaxine 75 mg capsule,extended release 24 hr 75 mg PO DAILY 05/25/22 [History Last Taken 12/23/22] rivaroxaban 15 mg tablet (Xarelto) 15 mg PO DINNER 30 days #0 tabs 05/28/22 [Rx Last Taken 12/22/22] atorvastatin 10 mg tablet (Lipitor) 10 mg PO QHS 09/09/22 [History Last Taken 12/22/22] meclizine 25 mg tablet 25 mg PO TID PRN Vertigo 09/09/22 [History Last Taken Unknown] pramipexole 0.25 mg tablet (Mirapex) 0.25 mg PO QHS 09/09/22 [History Last Taken 12/22/22] insulin glargine 100 unit/mL (3 mL) subcutaneous pen (Basaglar KwikPen U-100 Insulin) 6 unit (0.06 mL) subcut DAILY diabetes #30 mL 09/26/22 [Rx Last Taken 12/22/22] modafinil 200 mg tablet 150 mg PO DAILY 2 days #3 tabs 09/26/22 [Rx Last Taken 12/23/22] pregabalin 50 mg capsule 50 mg PO BID NEUROPATHY 10/09/22 [History Last Taken 12/23/22] potassium chloride 20 mEq tablet,extended release 20 meq PO DAILY 11/20/22 [History Last Taken 12/23/22] spironolactone 25 mg tablet 12.5 mg PO DAILY 11/20/22 [History Last Taken 12/23/22] fluticasone furoate 100 mcg/actuation blister powder for inhalation (Arnuity Ellipta) 1 inh inhalation QHS COPD 12/23/22 [History Last Taken 12/22/22] furosemide 20 mg tablet 20 mg PO DAILY EDEMA 12/23/22 [History Last Taken 12/22/22] furosemide 80 mg tablet 80 mg PO DAILY EDEMA 12/23/22 [History Last Taken 12/23/22] metformin 850 mg tablet 850 mg PO DAILY DM 12/23/22 [History Last Taken 12/23/22] methenamine hippurate 1 gram tablet 1 g PO BID UTI 12/23/22 [History Last Taken 12/23/22] triamcinolone acetonide 0.1 % topical cream 1 applic topical DAILY ITCHING 12/23/22 [History Last Taken 12/22/22] morphine 30 mg immediate release tablet 30 mg PO BID pain 12/24/22 [History Last Taken Unknown] Allergy/AdvReac Type Severity Reaction Status Date / Time aspirin Allergy Severe Hives Verified 12/23/22 14:09 Penicillins Allergy Severe Anaphylaxis Verified 12/23/22 14:09 Sulfa (Sulfonamide Allergy Severe Anaphylaxis Verified 12/23/22 14:09 Antibiotics) latex Allergy Rash Verified 12/23/22 14:09 Family History Mother Heart disease Cancer pancreatic Father Heart disease CVA (cerebral vascular accident) Hypertension Cancer liver, lung Surgical History History of appendectomy History of cardiac catheterization History of cholecystectomy History of ERCP History of hysterectomy Hx of dilation and curettage Hx of toe surgery S/P laparoscopic cholecystectomy Social History housing: senior living Smoking Status: Never smoker alcohol intake: never substance use type: does not use additional social history: currently residing at [facility] ROS ROS Narrative 10 systems were reviewed with pertinent positives as noted in the HPI above. Physical Exam Const alert and no apparent distress General Appearance: cooperative Nutritional Appearance: morbidly obese HEENT normocephalic, head/scalp atraumatic and moist oral mucous membranes Eyes PERRL, EOMs intact bilaterally and conjunctivae normal Neck supple General: trachea midline Chest inspection of chest normal Resp normal respiratory effort Auscultation: Negative for rales, rhonchi or wheezes Cardio regular rate and regular rhythm Heart Sounds: murmur GI normal to inspection, nondistended, normoactive bowel sounds Extremity no clubbing, cyanosis or edema Skin no rashes or lesions noted General Skin Exam: venous stasis and dermatitis Neuro CN's II-XII intact bilaterally, moves all extremities and no focal motor deficits Psych cooperative and affect normal Lab / Micro Data Result Diagrams: 12/25/22 05:50 12/25/22 05:50 Labs: Laboratory Results - last 24 hr 12/23/22 14:40: WBC 22.5 H, RBC 3.88 L, Hgb 11.6 L, Hct 34.4 L, MCV 88.7, MCH 29.9, MCHC 33.7, RDW Std Deviation 47.4 H, RDW Coeff of Melissa 14.6, Plt Count 196, MPV 9.4, Immature Gran % (Auto) 0.600, Neut % (Auto) 90.8 H, Lymph % (Auto) 2.2 L, [place] % (Auto) 6.1, Eos % (Auto) 0.0, Baso % (Auto) 0.3, Absolute Neuts (auto) 20.4 H, Absolute Lymphs (auto) 0.50 L, Nucleated RBC % 0, Differential Comment SCANNED 12/23/22 14:40: Sodium 140, Potassium 3.6, Chloride 103, Carbon Dioxide 30.0, Anion Gap 7, BUN 22 H, Creatinine 0.90, Estim Creat Clear Calc 43.37, Est GFR (MDRD) Af Amer 79, Est GFR (MDRD) Non-Af 65, BUN/Creatinine Ratio 24.5 H, Glucose 158 H, Calcium 8.8, Total Bilirubin 0.60, AST 10 L, ALT 15, Alkaline Phosphatase 114, Total Protein 6.7, Albumin 3.0 L, Globulin 3.7, Albumin/Globulin Ratio 0.8 L 12/23/22 14:40: Lactic Acid 1.7 12/23/22 14:40: B-Natriuretic Peptide 41.7 12/23/22 14:55: Urine Color Yellow, Urine Clarity Clear, Urine pH 6.5, Ur Specific [place] 1.010, Urine Protein 15 H, Urine Glucose (UA) Normal, Urine Ketones Negative, Urine Occult Blood 25 H, Urine Nitrite Positive H, Urine Bilirubin Negative, Urine Urobilinogen Normal, Ur Leukocyte Esterase 100 H, Urine RBC 0 SEEN, Urine WBC 10-25 SEEN, Ur Squamous Epith Cells 0 SEEN, Urine Bacteria 2+, Urine Mucus 0 SEEN 12/23/22 16:44: Procalcitonin 0.25 H 12/23/22 17:45: POC Glucose 181 H 12/23/22 20:09: POC Glucose 142 H 12/23/22 20:25: MRSA (PCR) POSITIVE H 12/24/22 05:10: WBC 10.6, RBC 3.46 L, Hgb 10.3 L, Hct 32.6 L, MCV 94.2 D, MCH 29.8, MCHC 31.6 L D, RDW Std Deviation 50.9 H, RDW Coeff of Melissa 14.8 H, Plt Count 142 L, MPV 9.5, Immature Gran % (Auto) 0.200, Neut % (Auto) 85.7 H, Lymph % (Auto) 6.7 L, [place] % (Auto) 6.6, Eos % (Auto) 0.3, Baso % (Auto) 0.5, Absolute Neuts (auto) 9.1 H, Absolute Lymphs (auto) 0.71 L, Nucleated RBC % 0 12/24/22 05:10: Sodium 144, Potassium 3.6, Chloride 112 H, Carbon Dioxide 28.0, Anion Gap 4 L, BUN 15, Creatinine 0.59, Estim Creat Clear Calc 37.24, Est GFR (MDRD) Af Amer 128, Est GFR (MDRD) Non-Af 106, BUN/Creatinine Ratio 25.5 H, Glucose 121 H, Calcium 8.0 L, Phosphorus 2.9, Magnesium 1.8, Total Bilirubin 0.50, AST 11 L, ALT 15, Alkaline Phosphatase 88, Total Protein 5.4 L, Albumin 2.3 L, Globulin 3.1, Albumin/Globulin Ratio 0.7 L Micro: Microbiology 12/23/22 14:45 Nasal Secretion SARS-CoV-2 & FLU Antigen (Rapid) - Final ABG Data ABG results: ABG 12/23/22 12/23/22 16:28 20:44 Specimen Type ART ART Sample Site R Radial R Brach pH 7.45 7.37 Bicarbonate Actual 30.1 H 28.4 H Total CO2 31 30 Base Excess 6 H 3 H O2 Saturation 94 L 96 O2 % 30 ABG pCO2 43.4 48.8 H ABG pO2 68 L 85 Mike Test Positive Negative O2 Delivery Device Cannula BiPAP Liter Flow 2.0 Vent Mode NIV Radiology Impression Chest X-Ray 12/23/22 15:42 IMPRESSION: No definite acute or significant abnormality seen. Electronically Signed: Gurdeep Pritchard MD at 16:24 EDT , Charges/Coding Visit Charges Inpatient E&M: 98374 Init Hosp L3
[2022-12-24] MEDS: Budesonide Respules 0.5 MG/2 ML AMPUL.NEB. INHALATION ×2 (07:05→18:31)
[2022-12-24] MEDS: Potassium Chloride Oral Tablet 20 MEQ PO (08:05)
[2022-12-24] MEDS: Menthol/Lanolin/Calamine/Znox 113 GM Tube 1 APPLIC TOPICAL ×2 (08:05→20:57)
[2022-12-24] MEDS: Multivitamins,Therapeutic Tablet 1 TABLET PO (08:05)
[2022-12-24] MEDS: Ferrous Sulfate 325 MG Tablet PO ×2 (08:05→16:17)
[2022-12-24] MEDS: Nystatin Powder 15gm Bottle 1 APPLIC TOPICAL ×2 (08:06→20:56)
[2022-12-24] MEDS: Venlafaxine XR 75 MG Capsule PO (08:06)
[2022-12-24] MEDS: Pantoprazole Sodium 40 MG Tablet PO (08:06)
[2022-12-24] MEDS: Triamcinolone Acetonide 0.1% Cream 15 gm 1 APPLIC TOPICAL (08:06)
[2022-12-24] MEDS: Pregabalin 50 MG Capsule PO ×2 (08:11→20:55)
[2022-12-24] MEDS: Modafinil 200 MG Tablet 150 MG PO (08:11)
[2022-12-24 08:25] LABS: Bedside Glucose 96 mg/dL (74-106)
--- NOTE | 2022-12-24 09:16 | PCM.PN.HOSP ---
Reason for Visit Reason for Visit: Generalized weakness Subjective Subjective Patient was transferred the ICU overnight for altered mental status and hypotension following administration of antibiotics. She is doing well this morning did not require pressors and completed her 3-1/2 L bolus. Her blood pressure and sepsis was responsive to fluid resuscitation alone. She has no complaints at this time. She is on BiPAP sleeping however awakens and is appropriately interactive. Objective Data Objective Data Vital Signs: Vital Signs Temp Pulse Resp BP Pulse Ox O2 Del Method O2 Flow Rate 97.7 F L 61 17 126/57 H 95 Nasal Cannula 2 12/24/22 08:00 12/24/22 09:00 12/24/22 09:00 12/24/22 09:00 12/24/22 09:11 12/24/22 09:11 12/24/22 09:11 FiO2 25 12/24/22 07:05 Oxygen Flow Rate (L/min) 2 Oxygen Delivery Method Nasal Cannula Weight: 111.175 kg Body Mass Index (BMI) 46.3 Intake & Output: Intake and Output for Last 24 Hours 12/22/22 12/23/22 12/24/22 23:59 23:59 23:59 Intake Total 4712.8 / 4712.8 770 / 770 Output Total 250 / 250 600 / 600 Balance 4462.8 / 4462.8 170 / 170 Lab / Micro Data Result Diagrams: 12/24/22 05:10 12/24/22 05:10 Labs: Laboratory Results - last 24 hr 12/23/22 14:40: WBC 22.5 H, RBC 3.88 L, Hgb 11.6 L, Hct 34.4 L, MCV 88.7, MCH 29.9, MCHC 33.7, RDW Std Deviation 47.4 H, RDW Coeff of Melissa 14.6, Plt Count 196, MPV 9.4, Immature Gran % (Auto) 0.600, Neut % (Auto) 90.8 H, Lymph % (Auto) 2.2 L, [place] % (Auto) 6.1, Eos % (Auto) 0.0, Baso % (Auto) 0.3, Absolute Neuts (auto) 20.4 H, Absolute Lymphs (auto) 0.50 L, Nucleated RBC % 0, Differential Comment SCANNED 12/23/22 14:40: Sodium 140, Potassium 3.6, Chloride 103, Carbon Dioxide 30.0, Anion Gap 7, BUN 22 H, Creatinine 0.90, Estim Creat Clear Calc 43.37, Est GFR (MDRD) Af Amer 79, Est GFR (MDRD) Non-Af 65, BUN/Creatinine Ratio 24.5 H, Glucose 158 H, Calcium 8.8, Total Bilirubin 0.60, AST 10 L, ALT 15, Alkaline Phosphatase 114, Total Protein 6.7, Albumin 3.0 L, Globulin 3.7, Albumin/Globulin Ratio 0.8 L 12/23/22 14:40: Lactic Acid 1.7 12/23/22 14:40: B-Natriuretic Peptide 41.7 12/23/22 14:55: Urine Color Yellow, Urine Clarity Clear, Urine pH 6.5, Ur Specific [place] 1.010, Urine Protein 15 H, Urine Glucose (UA) Normal, Urine Ketones Negative, Urine Occult Blood 25 H, Urine Nitrite Positive H, Urine Bilirubin Negative, Urine Urobilinogen Normal, Ur Leukocyte Esterase 100 H, Urine RBC 0 SEEN, Urine WBC 10-25 SEEN, Ur Squamous Epith Cells 0 SEEN, Urine Bacteria 2+, Urine Mucus 0 SEEN 12/23/22 16:44: Procalcitonin 0.25 H 12/23/22 17:45: POC Glucose 181 H 12/23/22 20:09: POC Glucose 142 H 12/23/22 20:25: MRSA (PCR) POSITIVE H 12/24/22 05:10: WBC 10.6, RBC 3.46 L, Hgb 10.3 L, Hct 32.6 L, MCV 94.2 D, MCH 29.8, MCHC 31.6 L D, RDW Std Deviation 50.9 H, RDW Coeff of Melissa 14.8 H, Plt Count 142 L, MPV 9.5, Immature Gran % (Auto) 0.200, Neut % (Auto) 85.7 H, Lymph % (Auto) 6.7 L, [place] % (Auto) 6.6, Eos % (Auto) 0.3, Baso % (Auto) 0.5, Absolute Neuts (auto) 9.1 H, Absolute Lymphs (auto) 0.71 L, Nucleated RBC % 0 12/24/22 05:10: Sodium 144, Potassium 3.6, Chloride 112 H, Carbon Dioxide 28.0, Anion Gap 4 L, BUN 15, Creatinine 0.59, Estim Creat Clear Calc 37.24, Est GFR (MDRD) Af Amer 128, Est GFR (MDRD) Non-Af 106, BUN/Creatinine Ratio 25.5 H, Glucose 121 H, Calcium 8.0 L, Phosphorus 2.9, Magnesium 1.8, Total Bilirubin 0.50, AST 11 L, ALT 15, Alkaline Phosphatase 88, Total Protein 5.4 L, Albumin 2.3 L, Globulin 3.1, Albumin/Globulin Ratio 0.7 L 12/24/22 08:03: POC Glucose 96 Micro: Microbiology 12/23/22 14:55 Urine Catheter - Catheter Urine Culture - Preliminary Presumptive E. coli 12/23/22 14:45 Nasal Secretion SARS-CoV-2 & FLU Antigen (Rapid) - Final ABG Data ABG results: ABG 12/23/22 12/23/22 16:28 20:44 Specimen Type ART ART Sample Site R Radial R Brach pH 7.45 7.37 Bicarbonate Actual 30.1 H 28.4 H Total CO2 31 30 Base Excess 6 H 3 H O2 Saturation 94 L 96 O2 % 30 ABG pCO2 43.4 48.8 H ABG pO2 68 L 85 Mike Test Positive Negative O2 Delivery Device Cannula BiPAP Liter Flow 2.0 Vent Mode NIV Radiography Diagnostic Testing: Radiology Impression Chest X-Ray 12/23/22 15:42 IMPRESSION: No definite acute or significant abnormality seen. Electronically Signed: Gurdeep Pritchard MD at 16:24 EDT , Physical Exam Const alert, oriented x3, no apparent distress and well nourished Constitutional Narrative: Morbidly obese, white female, lying in bed sleeping on BiPAP but awakens and is appropriately interactive when she does so, chronically ill-appearing General Appearance: cooperative HEENT normocephalic, head/scalp atraumatic, hearing grossly normal bilaterally and moist oral mucous membranes HEENT Narrative: Dentulous, Mallampati 3 Resp normal respiratory effort, no retractions, no use of accessory muscles and clear to auscultation bilaterally Auscultation: Negative for crackles, rhonchi or wheezes Cardio regular rate, regular rhythm, S1 normal heart sound, S2 normal heart sound, no rub, no gallops and no clicks; Negative for no murmurs Cardio Narrative: 3 out of 6 systolic murmur loudest at the right upper sternal border GI normal to inspection, nondistended, normoactive bowel sounds, soft to palpation and non-tender GI Narrative: Large protuberant abdomen Extremity Extremity Narrative: Trace bilateral lower extremity edema, no cyanosis or clubbing Neuro oriented x3, moves all extremities and no focal motor deficits Neuro Narrative: Generalized weakness with proximal musculature more affected than lower Speech: speech normal Psych affect normal Psych Narrative: Very pleasant, appropriately interactive Assessment & Plan Assessment/Plan (1) Acute UTI: (2) Leukocytosis: (3) Generalized weakness: (4) Fever: (5) Sepsis: PLAN: Plan Sepsis secondary to UTI -Patient met sepsis criteria with fever, tachycardia, tachypnea, elevated white count, acute hypotension that was responsive to IV fluids -Patient was bolused with 30 cc/kg of body weight when she developed hypotension -Blood culture is pending -Urine culture is presumptive E. coli -Her most recent positive urine culture was an ESBL producing E. coli that was sensitive to meropenem -Continue meropenem -Procalcitonin was elevated -Factious disease consultation pending with previous MDRO/ESBL E. coli being in her urine Leukocytosis -Resolved -Continue antibiotics -Patient still has left shift Generalized weakness -Suspect exacerbated by acute infection -PT/OT to see -Sounds like her baseline mobility is not great -Patient is already a resident at [facility] -Consult social work and case management to facilitate discharge back to her facility once medically stable Paroxysmal atrial fibrillation with RVR -Held diltiazem 360 mg daily once hypotension developed -Continue to hold for now and reinitiate when blood pressure allows -Continue Xarelto Cardiac murmur -Would recommend outpatient echocardiogram -Sounds like aortic stenosis type murmur with radiation to bilateral carotids and most prominent at right upper sternal border 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 per hematology documentation from previous recent visit -Slight drop in her platelets from 196,000 142,000 however she got aggressively hydrated and is septic -Continue to monitor with CBC -We will continue Xarelto as long as platelet counts above 50,000 Chronic mild anemia -Approximately 1 g drop overnight however patient was aggressively hydrated and received 3-1/2 L of IV fluids -Continue to monitor as patient has had previous bleeding rectally -Patient is on chronic iron supplementation and will continue DM-2 -Hold metformin -Continue sliding scale -Continue Lantus 6 units -Accu-Cheks as ordered RILEY -Continue BiPAP with naps and at night Hypertension/hyperlipidemia -Continue atorvastatin 10 ems at at bedtime as -Hold Lasix 80 mg daily -Hold Aldactone 12.5 mg daily -Hold Cardizem 360 mg daily -Restart antihypertensives once blood pressure allows History of asthma -Continue home inhalers Seasonal allergies -Continue home nasal sprays History of vertigo -Hold as needed meclizine GERD -Continue home PPI Urinary incontinence -Continue home oxybutynin Morbid obesity -BMI is 46.3 -Recommend weight loss -Complicates treatment, prognosis, outcomes Depression -Continue home venlafaxine DVT prophylaxis -Continue Xarelto CODE STATUS Full code Charges/Coding Visit Charges Inpatient E&M: 07196 Subs Hosp L2
--- NOTE | 2022-12-24 10:53 | ECHOD_ITS ---
Reason For Study: Staph Bacteremia Procedure This was a 2D Doppler, Color Flow transthoracic echocardiogram. Exam performed portable in ICU/CCU. Left Ventricle Normal LV size. Left ventricular systolic function is normal. The estimated ejection fraction is 60 %. Stage 1 diastolic dysfunction. No regional wall motion abnormalities noted. Right Ventricle Normal RV size. Normal systolic function. Atria Normal left atrium. Normal right atrium. Mitral Valve Normal mitral valve. Tricuspid Valve Normal tricuspid valve. Mild (1+) tricuspid valve insufficiency. Pulmonary artery systolic pressure is 28 mmHg. Aortic Valve Trisinus/trileaflet aortic valve. Pulmonic Valve Normal pulmonic valve. Great Vessels Normal aortic root. The pulmonary artery is normal size. Normal inferior vena cava. Pericardium/Pleural No pericardial effusion. MMode/2D Measurements & Calculations LVIDd: 4.7 cm IVSd: 1.0 cm Ao root diam: 2.8 cm LVIDs: 2.9 cm LVPWd: 0.93 cm RVDd: 3.9 cm FS: 37.5 % LAV(MOD-bp): 49.0 ml LVAd ap4: 24.8 cm2 SV(MOD-sp4): 46.0 ml LAV(MOD-bp) Indexed: 24.7 ml/m2 LVLd ap4: 7.7 cm LAV(MOD-sp2): 57.7 ml EDV(MOD-sp4): 67.6 ml LAV(MOD-sp4): 44.0 ml EDV(sp4-el): 67.7 ml LVAs ap4: 12.5 cm2 LVLs ap4: 6.3 cm ESV(MOD-sp4): 21.6 ml ESV(sp4-el): 21.2 ml EF(MOD-sp4): 68.0 % EF(sp4-el): 68.7 % SV(sp4-el): 46.5 ml LA A4 area: 17.2 cm2 LA dimension(2D): 3.5 cm RA A4 area: 13.4 cm2 Time Measurements MV dec time: 0.29 sec Doppler Measurements & Calculations MV E max beltran: 102.8 cm/sec Lat Peak E' Beltran: 8.5 cm/sec Med Peak E' Beltran: 5.1 cm/sec MV A max beltran: 117.5 cm/sec E/E' lat: 12.1 E/E' med: 20.2 MV E/A: 0.88 Ao V2 max: 176.2 cm/sec LV V1 max: 158.9 cm/sec MV dec slope: 351.6 cm/sec2 Ao max P.4 mmHg LV V1 max P.1 mmHg Ao V2 mean: 127.8 cm/sec Ao mean P.3 mmHg Ao V2 VTI: 39.9 cm PA V2 max: 111.1 cm/sec TR max beltran: 247.5 cm/sec TR max P.5 mmHg ECHO/Echo Complete Interpretation Summary Normal LV size. Left ventricular systolic function is normal. The estimated ejection fraction is 60 %. Stage 1 diastolic dysfunction. Pulmonary artery systolic pressure is 28 mmHg. Ordering Physician: Renetta Cramer Referring Physician: Rosa Silva Performed By: Urmila Means, OMER, RVT
--- NOTE | 2022-12-24 10:55 | PCM.HOSP.N ---
Hospitalist Note Urine culture showing E. coli. Blood culture showing gram-positive cocci in clusters. Patient is on vancomycin. MRSA PCR was positive. ID consult is pending and anticipate evaluation to be done tomorrow. Check echocardiogram with gram-positive staph bacteremia. Repeat cultures in a.m.
[2022-12-24 11:45] LABS: Bedside Glucose 202 mg/dL (74-106)
[2022-12-24] MEDS: Insulin Glargine-YFGN 100 UNIT/ML Pen 6 UNIT SC (11:45)
[2022-12-24] MEDS: Insulin Lispro 100 UNIT/ML INSULN.PEN SC ×2 (11:45→16:17)
[2022-12-24] MEDS: morphine SR 15 MG Tablet 30 MG PO ×2 (12:39→20:54)
--- NOTE | 2022-12-24 13:55 | CPS ---
Pt has a BIPAP at [facility] but isn't positive of settings and thinks her machine hasn't been working properly. She has a Dr appointment with Dr Lyons this week to possibly change her Narcolepsy med and check on her BIPAP machine.
[2022-12-24] MEDS: Rivaroxaban 15 MG Tablet PO (16:18)
[2022-12-24 16:38] LABS: Bedside Glucose 188 mg/dL (74-106)
[2022-12-24] MEDS: Fluticasone 0.05% 1 SPRAY NASAL.SRY NASAL (20:56)
[2022-12-24] MEDS: Pramipexole Di-HCl 0.25 MG Tablet PO (20:57)
[2022-12-24] MEDS: Oxybutynin 5 MG Tablet PO (20:58)
[2022-12-24] MEDS: Atorvastatin Calcium 10 MG Tablet PO (21:00)
[2022-12-24 21:20] LABS: Bedside Glucose 192 mg/dL (74-106)
[2022-12-25] VITALS (15 sets, daily range): BP systolic 114–145; BP diastolic 57–79; PULSE 58–77; RESP 12–24; TEMP 36.5–36.9; O2SAT 93–100; BMI 48.1
[2022-12-25 06:03] LABS: Absolute Lymphocyte Count 1.16 X10^3/uL (0.83-4.51); Absolute Neutrophil Count 6.6 X10^3/uL (2.0-7.7); Basophil# 0.04 X10^3/uL; Basophil% 0.5 % (0-1); Eosinophil# 0.12 X10^3/uL; Eosinophils% 1.4 % (0-5); Hematocrit 32.9 % (37-47); Hemoglobin 10.4 g/dL (12.0-15.0); Lymphocyte # 1.16 X10^3/ul (0.83-4.51); Lymphocyte % 13.3 % (19-41); Mean Corp Hgb Conc 31.6 g/dL (32-36); Mean Corpuscular Hgb 29.4 pg (27.0-32.0); Mean Corpuscular Volume 92.9 fL (81-99); Mean Platelet Vol. 9.8 fl (6.2-12.0); Monocyte% 9.2 % (0-10); NRBC Flagged by Analyzer 0 % (0-5); Neutrophil # 6.58 X10^3/uL (2.7-7.7); Neutrophil % 75.4 % (47-70); Platelet Count 159 K/mm3 (150-450); RBC Distribution Width CV 14.7 % (11.6-14.6); RBC Distribution Width SD 50.5 fl (35.1-43.9); Red Blood Count 3.54 M/mm3 (4.2-5.4); White Blood Count 8.7 K/mm3 (4.4-11.0)
[2022-12-25 06:26] LABS: Anion Gap 5 (5-15); BUN 13 mg/dL (7-18); BUN/Creat Ratio 20.5 RATIO (10-20); Calcium,Total 8.4 mg/dL (8.5-10.1); Chloride 109 mmol/L (98-107); Creatinine, Serum 0.64 mg/dL (0.55-1.02); EST Glomerular Filtration Rate 97 mL/min (>60); Est Glom Filt Rate - Afr Amer 117 mL/min (>60); Estimated Creatinine Clearance 37.24 ml/min; Glucose 115 mg/dL (74-106); Potassium 4.1 mmol/L (3.5-5.1); Sodium Level 141 mmol/L (136-145)
--- NOTE | 2022-12-25 07:07 | PN.CC_ITS ---
Assessment & Plan Assessment/Plan (1) Acute UTI: PLAN: Plan RECOMMENDATIONS: 1. Continue empiric antimicrobials, pending evaluation by infectious diseases. 2. Continue baseline Xarelto regimen. 3. Continue PAP therapy nightly. 4. Encourage incentive spirometer use and mobilize patient as tolerated. 5. The patient is medically stable for transfer out of the intensive care unit. IMPRESSIONS: 1. Acute UTI The patient was admitted to the hospital with symptoms concerning for urinary tract source of infection. The patient has grown ESBL E. coli in the past. Although the patient was transferred to the ICU after she became hypotensive, the patient responded avidly to fluid resuscitation and remains hemodynamically stable. Continue broad-spectrum antimicrobials, as ordered, pending finalized culture results. Infectious diseases consultation is currently pending. 2.??History of diabetes mellitus/paroxysmal atrial fibrillation/chronic pain syndrome/morbid obesity/obstructive sleep apnea Complicates care, management, recovery and prognosis.? Continue home medications as indicated. This note was generated with [employer] dictation software. It may contain incorrect words, spelling, and punctuation that were not noted in checking the note before signing. Subjective Subjective The patient was seen and examined at the bedside this morning. Events from the last 24 hours have been reviewed. The patient is currently afebrile, hemodynamically stable and maintaining appropriate oxygen saturations on room air. The patient has been compliant with PAP therapy. No overnight issues were identified by the nursing staff. Objective Data Objective Data The patient's most recent lab work, culture data and imaging studies have all been personally reviewed. Surface echocardiogram demonstrated normal LV size and function with an ejection fraction of 60% and stage I diastolic dysfunction. Pulmonary artery systolic pressure was estimated to be 28 mmHg. Preliminary urine culture is demonstrating growth of E. coli. Blood culture dated December 23 was positive for Staph aureus. Vital Signs: Vital Signs Temp Pulse Resp BP Pulse Ox O2 Del Method O2 Flow Rate 98.1 F 60 17 123/59 H 95 Bi-pap 2 12/25/22 06:05 12/25/22 06:05 12/25/22 06:05 12/25/22 06:05 12/25/22 06:05 12/25/22 06:05 12/24/22 17:00 FiO2 30 12/25/22 06:05 Oxygen Flow Rate (L/min) 2 Oxygen Delivery Method Bi-pap Weight: 254 lb 9.6 oz Body Mass Index (BMI) 48.1 Intake & Output: Intake and Output for Last 24 Hours 12/23/22 12/24/22 12/25/22 23:59 23:59 23:59 Intake Total 4712.8 / 4712.8 2260 / 2260 140 / 140 Output Total 250 / 250 1999 / 1999 900 / 900 Balance 4462.8 / 4462.8 260 / 260 -760 / -760 Lab / Micro Data Attestation: I reviewed the patient's lab results. Result Diagrams: 12/25/22 05:50 12/25/22 05:50 Labs: Laboratory Results - last 24 hr 12/24/22 08:03: POC Glucose 96 12/24/22 11:27: POC Glucose 202 H 12/24/22 16:17: POC Glucose 188 H 12/24/22 20:53: POC Glucose 192 H 12/25/22 05:50: WBC 8.7, RBC 3.54 L, Hgb 10.4 L, Hct 32.9 L, MCV 92.9, MCH 29.4, MCHC 31.6 L, RDW Std Deviation 50.5 H, RDW Coeff of Melissa 14.7 H, Plt Count 159, MPV 9.8, Immature Gran % (Auto) 0.200, Neut % (Auto) 75.4 H, Lymph % (Auto) 13.3 L, [place] % (Auto) 9.2, Eos % (Auto) 1.4, Baso % (Auto) 0.5, Absolute Neuts (auto) 6.6, Absolute Lymphs (auto) 1.16, Nucleated RBC % 0 12/25/22 05:50: Sodium 141, Potassium 4.1, Chloride 109 H, Carbon Dioxide 27.0, Anion Gap 5, BUN 13, Creatinine 0.64, Estim Creat Clear Calc 37.24, Est GFR (MDRD) Af Amer 117, Est GFR (MDRD) Non-Af 97, BUN/Creatinine Ratio 20.5 H, Glucose 115 H, Calcium 8.4 L Micro: Microbiology 12/23/22 15:00 Blood Culture (Wb) - Anticubital Left Blood Culture - Preliminary 12/23/22 14:55 Urine Catheter - Catheter Urine Culture - Preliminary Presumptive E. coli 12/23/22 14:45 Nasal Secretion SARS-CoV-2 & FLU Antigen (Rapid) - Final Radiography Diagnostic Testing: Radiology Impression Echocardiogram 12/24/22 10:53 Interpretation Summary Normal LV size. Left ventricular systolic function is normal. The estimated ejection fraction is 60 %. Stage 1 diastolic dysfunction. Pulmonary artery systolic pressure is 28 mmHg. Ordering Physician: Renetta Cramer Referring Physician: Rosa Silva Performed By: Urmila Means RDCS, RVT Physical Exam Const alert and no apparent distress General Appearance: cooperative Nutritional Appearance: morbidly obese HEENT normocephalic, head/scalp atraumatic and moist oral mucous membranes Eyes PERRL, EOMs intact bilaterally and conjunctivae normal Neck supple General: trachea midline Chest inspection of chest normal Resp normal respiratory effort Auscultation: Negative for rales, rhonchi or wheezes Cardio regular rate and regular rhythm Heart Sounds: murmur GI normal to inspection, nondistended, normoactive bowel sounds Extremity no clubbing, cyanosis or edema Skin no rashes or lesions noted General Skin Exam: venous stasis and dermatitis Neuro CN's II-XII intact bilaterally, moves all extremities and no focal motor deficits Psych cooperative and affect normal Charges/Coding Visit Charges Inpatient E&M: 27779 Subs Hosp L2
[2022-12-25] MEDS: Budesonide Respules 0.5 MG/2 ML AMPUL.NEB. INHALATION ×2 (07:08→20:10)
[2022-12-25] MEDS: Nystatin Powder 15gm Bottle 1 APPLIC TOPICAL ×2 (08:04→21:50)
[2022-12-25] MEDS: Pregabalin 50 MG Capsule PO ×2 (08:04→21:43)
[2022-12-25] MEDS: morphine SR 15 MG Tablet 30 MG PO ×2 (08:04→21:43)
[2022-12-25] MEDS: Modafinil 200 MG Tablet 150 MG PO (08:04)
[2022-12-25] MEDS: Menthol/Lanolin/Calamine/Znox 113 GM Tube 1 APPLIC TOPICAL ×2 (08:04→21:37)
[2022-12-25] MEDS: Multivitamins,Therapeutic Tablet 1 TABLET PO (08:05)
[2022-12-25] MEDS: Pantoprazole Sodium 40 MG Tablet PO (08:05)
[2022-12-25] MEDS: Potassium Chloride Oral Tablet 20 MEQ PO (08:05)
[2022-12-25] MEDS: Triamcinolone Acetonide 0.1% Cream 15 gm 1 APPLIC TOPICAL (08:05)
[2022-12-25] MEDS: Ferrous Sulfate 325 MG Tablet PO ×2 (08:05→16:03)
[2022-12-25] MEDS: Venlafaxine XR 75 MG Capsule PO (08:06)
--- NOTE | 2022-12-25 09:21 | CASEMGMT ---
Social Work SW met w/pt in room, as pt is here from [facility]. Pt confirms her plan is to return to [facility] at discharge, list of other SNFs in the area is not needed. Pt explains was at [facility] for seven years. She states the care was not good there. She ended up in the hospital and then went to [facility] from there due to insurance reasons, and has been there for a year and a half. Pt's goal is to eventually get to their assisted living, she states she is on the wait list. SW also asked pt about LW/POA, pt would like to complete the documents today as time allows. SW explained will come back later this morning to assist pt. 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 ZENA Keenan
--- NOTE | 2022-12-25 09:59 | CASEMGMT ---
Discharge Planning Updates sent to [facility] via [employer]. Lizz Faith
[2022-12-25] MEDS: Insulin Glargine-YFGN 100 UNIT/ML Pen 6 UNIT SC (10:16)
--- NOTE | 2022-12-25 10:25 | CON.PCM.ID_ITS ---
Assessment & Plan Assessment/Plan (1) Staphylococcus aureus bacteremia: PLAN: Echo showed no veg. Has h/o rheumatic fever as a child. Will need DAISY. On vanc and meropenem. Ucx with ecoli, not ESBL this time. Repeat bcx pending. Will follow, thank you, d/w Dr. Cramer. (2) Sepsis: (3) Acute UTI: HPI Consult Data Date of Consult: 12/25/22 HPI Narrative Reason for Consultation: bacteremia HPI Narrative: SANDY ORONA, is a 72 F ECF resident, recurrent uti, h/o ESBL, presented 12/23 with several days weakness, dysuria, fever, chills. Came to ED, admitted on m eropenen, vanc added when Bcx turned (+). In icu, feeling better. Some scattered sores on legs. Does not have chronic conte but does have chronic urinary incontinence. No new joint or back pain. Full ROS performed and neg except as noted above. [facility] Medical History Acute ITP Anemia Anxiety and depression Arthritis Asthma Atrial fibrillation Back pain Benign hypertension Bilateral lower extremity edema BiPAP (biphasic positive airway pressure) dependence Cellulitis of left foot Cholelithiasis Chronic acquired lymphedema Chronic back pain Chronic malnutrition Chronic pain Chronic stasis dermatitis of left lower extremity Congestive heart failure (CHF) COPD (chronic obstructive pulmonary disease) Decreased pedal pulses Depression Diabetes Diabetic ulcer of left foot Diabetic ulcer of right foot Diabetic ulcer of toe of left foot Dialysis patient DVT (deep venous thrombosis) Elephantiasis GERD (gastroesophageal reflux disease) Hammertoe of left foot Hammertoe of left foot Heartburn High cholesterol History of edema History of kidney stones History of pain when walking History of stress test HLD (hyperlipidemia) Hoarseness Hypertension Increased BMI Insulin dependent diabetes mellitus Leg cramps Localized edema MRSA infection Non-smoker Nonhealing ulcer of left lower extremity with fat layer exposed Nonhealing ulcer of right lower extremity with fat layer exposed 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 On home oxygen therapy RILEY (obstructive sleep apnea) Osteoporosis PAF (paroxysmal atrial fibrillation) Peripheral neuropathy Renal lithiasis Rheumatic fever Rheumatoid arthritis RLS (restless legs syndrome) Seasonal allergies Shortness of breath on exertion Sleep apnea Type 2 diabetes mellitus Type 2 diabetes mellitus with diabetic polyneuropathy Type 2 diabetes mellitus with diabetic polyneuropathy Ulcer of left foot with fat layer exposed Ulcer of right foot with fat layer exposed Venous insufficiency Venous stasis ulcer of right thigh with fat layer exposed Venous ulcer of left lower extremity with varicose veins Venous ulcer of right lower extremity with varicose veins Home Medications fluticasone propionate 50 mcg/actuation nasal spray,suspension 1 spray QHS allergies 02/16/14 [History Last Taken 12/22/22] acetaminophen 325 mg tablet 650 mg PO Q4H PRN Pain 09/09/21 [History Last Taken 10/08/22] bisacodyl 10 mg rectal suppository 10 mg ID DAILY PRN Constipation 09/09/21 [History Last Taken Unknown] diltiazem HCl 360 mg capsule,24 hr,extended release 360 mg PO DAILY HTN 09/09/21 [History Last Taken 12/23/22] ferrous sulfate 325 mg (65 mg iron) tablet (iron) 325 mg PO BID supplement 09/09/21 [History Last Taken 12/23/22] multivitamin 1 tab PO DAILY supplement 09/09/21 [History Last Taken 12/23/22] omeprazole 40 mg capsule,delayed release 40 mg PO DAILY gerd 09/09/21 [History Last Taken 12/23/22] oxybutynin chloride 5 mg tablet 5 mg PO QHS bladder spasms 09/09/21 [History Last Taken 12/22/22] venlafaxine 75 mg capsule,extended release 24 hr 75 mg PO DAILY 05/25/22 [History Last Taken 12/23/22] rivaroxaban 15 mg tablet (Xarelto) 15 mg PO DINNER 30 days #0 tabs 05/28/22 [Rx Last Taken 12/22/22] atorvastatin 10 mg tablet (Lipitor) 10 mg PO QHS 09/09/22 [History Last Taken 12/22/22] meclizine 25 mg tablet 25 mg PO TID PRN Vertigo 09/09/22 [History Last Taken Unknown] pramipexole 0.25 mg tablet (Mirapex) 0.25 mg PO QHS 09/09/22 [History Last Taken 12/22/22] insulin glargine 100 unit/mL (3 mL) subcutaneous pen (Basaglar KwikPen U-100 Insulin) 6 unit (0.06 mL) subcut DAILY diabetes #30 mL 09/26/22 [Rx Last Taken 12/22/22] modafinil 200 mg tablet 150 mg PO DAILY 2 days #3 tabs 09/26/22 [Rx Last Taken 12/23/22] pregabalin 50 mg capsule 50 mg PO BID NEUROPATHY 10/09/22 [History Last Taken 12/23/22] potassium chloride 20 mEq tablet,extended release 20 meq PO DAILY 11/20/22 [History Last Taken 12/23/22] spironolactone 25 mg tablet 12.5 mg PO DAILY 11/20/22 [History Last Taken 12/23/22] fluticasone furoate 100 mcg/actuation blister powder for inhalation (Arnuity Ellipta) 1 inh inhalation QHS COPD 12/23/22 [History Last Taken 12/22/22] furosemide 20 mg tablet 20 mg PO DAILY EDEMA 12/23/22 [History Last Taken 12/22/22] furosemide 80 mg tablet 80 mg PO DAILY EDEMA 12/23/22 [History Last Taken 12/23/22] metformin 850 mg tablet 850 mg PO DAILY DM 12/23/22 [History Last Taken 12/23/22] methenamine hippurate 1 gram tablet 1 g PO BID UTI 12/23/22 [History Last Taken 12/23/22] triamcinolone acetonide 0.1 % topical cream 1 applic topical DAILY ITCHING 12/23/22 [History Last Taken 12/22/22] morphine 30 mg immediate release tablet 30 mg PO BID pain 12/24/22 [History Last Taken Unknown] Allergy/AdvReac Type Severity Reaction Status Date / Time aspirin Allergy Severe Hives Verified 12/23/22 14:09 Penicillins Allergy Severe Anaphylaxis Verified 12/23/22 14:09 Sulfa (Sulfonamide Allergy Severe Anaphylaxis Verified 12/23/22 14:09 Antibiotics) latex Allergy Rash Verified 12/23/22 14:09 Family History Mother Heart disease Cancer pancreatic Father Heart disease CVA (cerebral vascular accident) Hypertension Cancer liver, lung Surgical History History of appendectomy History of cardiac catheterization History of cholecystectomy History of ERCP History of hysterectomy Hx of dilation and curettage Hx of toe surgery S/P laparoscopic cholecystectomy Social History housing: fdc Smoking Status: Never smoker alcohol intake: never substance use type: does not use additional social history: currently residing at [facility] Physical Exam Const alert, oriented x3 and no apparent distress General Appearance: cooperative HEENT normocephalic and head/scalp atraumatic Eyes PERRL and EOMs intact bilaterally Neck supple and No nodes Resp normal air movement and clear to auscultation bilaterally Cardio regular rate and regular rhythm Heart Sounds: murmur GI soft to palpation, non-tender and non-distended Extremity General Extremity: edema Skin Skin Narrative: scabbed lesions on lower legs. Splinter hemorrhages on L thumb. Neuro CN's II-XII intact bilaterally Medical Records Data Attestation: I reviewed the patient's medical records Lab / Micro Data Result Diagrams: 12/25/22 05:50 12/25/22 05:50 Labs: Laboratory Results - last 24 hr 12/24/22 11:27: POC Glucose 202 H 12/24/22 16:17: POC Glucose 188 H 12/24/22 20:53: POC Glucose 192 H 12/25/22 05:50: WBC 8.7, RBC 3.54 L, Hgb 10.4 L, Hct 32.9 L, MCV 92.9, MCH 29.4, MCHC 31.6 L, RDW Std Deviation 50.5 H, RDW Coeff of Melissa 14.7 H, Plt Count 159, MPV 9.8, Immature Gran % (Auto) 0.200, Neut % (Auto) 75.4 H, Lymph % (Auto) 13.3 L, [place] % (Auto) 9.2, Eos % (Auto) 1.4, Baso % (Auto) 0.5, Absolute Neuts (auto) 6.6, Absolute Lymphs (auto) 1.16, Nucleated RBC % 0 12/25/22 05:50: Sodium 141, Potassium 4.1, Chloride 109 H, Carbon Dioxide 27.0, Anion Gap 5, BUN 13, Creatinine 0.64, Estim Creat Clear Calc 37.24, Est GFR (MDRD) Af Amer 117, Est GFR (MDRD) Non-Af 97, BUN/Creatinine Ratio 20.5 H, Glucose 115 H, Calcium 8.4 L Micro: Microbiology 12/23/22 14:55 Urine Catheter - Catheter Urine Culture - Final Presumptive E. coli 12/23/22 15:00 Blood Culture (Wb) - Anticubital Left Blood Culture - Preliminary Staphylococcus aureus Radiology Impression Echocardiogram 12/24/22 10:53 Interpretation Summary Normal LV size. Left ventricular systolic function is normal. The estimated ejection fraction is 60 %. Stage 1 diastolic dysfunction. Pulmonary artery systolic pressure is 28 mmHg. Ordering Physician: Renetta Cramer Referring Physician: Rosa Silva Performed By: Urmila Menas, OMER, RVT
[2022-12-25 10:37] LABS: Bedside Glucose 129 mg/dL (74-106)
--- NOTE | 2022-12-25 11:31 | PN.HOSP_ITS ---
Reason for Visit Reason for Visit: Weakness Subjective Subjective Patient states she is feeling much better overall. Blood pressures are still just in normal range and she is not taking her antihypertensives. Mental status is stable. Erythema and left leg is improving. Objective Data Objective Data Vital Signs: Vital Signs Temp Pulse Resp BP Pulse Ox O2 Del Method O2 Flow Rate 98.2 F 67 16 114/79 93 Room Air 2 12/25/22 11:06 12/25/22 11:06 12/25/22 11:06 12/25/22 11:12/25/22 11:06 12/25/22 11:06 12/24/22 17:00 FiO2 30 12/25/22 08:00 Oxygen Flow Rate (L/min) 2 Oxygen Delivery Method Room Air Weight: 115.485 kg Body Mass Index (BMI) 48.1 Intake & Output: Intake and Output for Last 24 Hours 12/23/22 12/24/22 12/25/22 23:59 23:59 23:59 Intake Total 4712.8 / 4712.8 2260 / 2260 1020 / 1020 Output Total 250 / 250 1999 / 1999 1450 / 1450 Balance 4462.8 / 4462.8 260 / 260 -430 / -430 Lab / Micro Data Result Diagrams: 12/25/22 05:50 12/25/22 05:50 Labs: Laboratory Results - last 24 hr 12/24/22 11:27: POC Glucose 202 H 12/24/22 16:17: POC Glucose 188 H 12/24/22 20:53: POC Glucose 192 H 12/25/22 05:50: WBC 8.7, RBC 3.54 L, Hgb 10.4 L, Hct 32.9 L, MCV 92.9, MCH 29.4, MCHC 31.6 L, RDW Std Deviation 50.5 H, RDW Coeff of Melissa 14.7 H, Plt Count 159, MPV 9.8, Immature Gran % (Auto) 0.200, Neut % (Auto) 75.4 H, Lymph % (Auto) 13.3 L, [place] % (Auto) 9.2, Eos % (Auto) 1.4, Baso % (Auto) 0.5, Absolute Neuts (auto) 6.6, Absolute Lymphs (auto) 1.16, Nucleated RBC % 0 12/25/22 05:50: Sodium 141, Potassium 4.1, Chloride 109 H, Carbon Dioxide 27.0, Anion Gap 5, BUN 13, Creatinine 0.64, Estim Creat Clear Calc 37.24, Est GFR (MDRD) Af Amer 117, Est GFR (MDRD) Non-Af 97, BUN/Creatinine Ratio 20.5 H, Glucose 115 H, Calcium 8.4 L 12/25/22 10:18: POC Glucose 129 H Micro: Microbiology 12/23/22 14:55 Urine Catheter - Catheter Urine Culture - Final Presumptive E. coli 12/23/22 15:00 Blood Culture (Wb) - Anticubital Left Blood Culture - Preliminary Staphylococcus aureus 12/23/22 14:45 Nasal Secretion SARS-CoV-2 & FLU Antigen (Rapid) - Final Radiography Diagnostic Testing: Radiology Impression Echocardiogram 12/24/22 10:53 Interpretation Summary Normal LV size. Left ventricular systolic function is normal. The estimated ejection fraction is 60 %. Stage 1 diastolic dysfunction. Pulmonary artery systolic pressure is 28 mmHg. Ordering Physician: Renetta Cramer Referring Physician: Rosa Silva Performed By: Urmila Means, OMER, RVT Physical Exam Const alert, oriented x3, no apparent distress and well nourished; Negative for average body habitus or healthy appearing Constitutional Narrative: Morbidly obese, older, white female, sitting up in bed, appears comfortable and nontoxic, finishing breakfast, chronically ill-appearing at baseline HEENT head/scalp atraumatic, moist oral mucous membranes and oropharynx normal HEENT Narrative: Edentulous, Mallampati 3, no thrush Head and Scalp: normocephalic Resp normal respiratory effort, no retractions, no use of accessory muscles and clear to auscultation bilaterally Resp Narrative: Very distant due to body habitus but clear Auscultation: Negative for rales, rhonchi or wheezes Cardio regular rate, regular rhythm, S1 normal heart sound, S2 normal heart sound, no rub, no gallops and no clicks; Negative for no murmurs Cardio Narrative: 3 out of 6 systolic murmur loudest at right upper sternal border GI normal to inspection, nondistended, normoactive bowel sounds, soft to palpation and non-tender GI Narrative: Large protuberant abdomen with extensive pannus Extremity no clubbing, cyanosis or edema Extremity Narrative: Pedal pulses are 2+ Skin No no rashes or lesions noted, No no wounds, skin turgor normal, no jaundice, no petechiae and no mottling Skin Narrative: , Erythema at left medial thigh improved dramatically bilateral lower legs with scattered wounds in various stages of healing none of which appeared infected, chronic venous stasis changes noted Neuro oriented x3, moves all extremities and no focal motor deficits Speech: speech normal Psych affect normal Psych Narrative: Eye contact is good, very pleasant and appropriate, talkative at times Assessment & Plan Assessment/Plan (1) Acute UTI: (2) Leukocytosis: (3) Generalized weakness: (4) Fever: (5) Sepsis: PLAN: Plan Sepsis secondary to Staph aureus bacteremia with left lower extremity melly lulitis/acute UTI -Patient met sepsis criteria with fever, tachycardia, tachypnea, elevated white count, acute hypotension that was responsive to IV fluids -Patient was bolused with 30 cc/kg of body weight when she developed hypotension -Blood culture positive for Staph aureus with sensitivities pending however suspect MRSA as MRSA PCR is positive -Urine culture is presumptive E. coli with sensitivities pending -Her most recent positive urine culture was an ESBL producing E. coli that was sensitive to meropenem -Repeat blood cultures are pending from this morning 12/25/2022 -Echocardiogram done and shows an EF of 60% with stage I diastolic dysfunction and pulmonary systolic pressures of 28 mmHg -DAISY recommended will place consult -Continue meropenem/vancomycin -Procalcitonin was elevated -Infectious diseases following Generalized weakness -Suspect exacerbated by acute infection -PT/OT following -Sounds like her baseline mobility is not great -Patient is already a resident at [facility] -Consult social work and case management to facilitate discharge back to her facility once medically stable Paroxysmal atrial fibrillation with RVR -Continue to hold diltiazem 360 mg daily - reinitiate when blood pressure allows -Continue Xarelto Cardiac murmur -Echocardiogram here shows no valvular abnormalities -DAISY ordered with Staph aureus bacteremia and murmur present -Patient does have a history of rheumatic disease as a child 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 per hematology documentation from previous recent visit -Platelet count has normalized 259,000 -Continue to monitor with CBC -We will continue Xarelto as long as platelet counts above 50,000 Chronic mild anemia -Hemoglobin is stable -Continue to monitor as patient has had previous bleeding rectally -Patient is on chronic iron supplementation and will continue DM-2 -Hold metformin -Blood sugars remain controlled -Continue sliding scale -Continue Lantus 6 units -Accu-Cheks as ordered RILEY -Continue BiPAP with naps and at night Hypertension/hyperlipidemia -Continue atorvastatin 10 ems at at bedtime as -Hold Lasix 80 mg daily -Hold Aldactone 12.5 mg daily -Hold Cardizem 360 mg daily -Restart antihypertensives once blood pressure allows History of asthma -Continue home inhalers Seasonal allergies -Continue home nasal sprays History of vertigo -Hold as needed meclizine GERD -Continue home PPI Urinary incontinence -Continue home oxybutynin Morbid obesity -BMI is 46.3 -Recommend weight loss -Complicates treatment, prognosis, outcomes Depression -Continue home venlafaxine DVT prophylaxis -Continue Xarelto CODE STATUS Full code Charges/Coding Visit Charges Inpatient E&M: 42449 Subs Hosp L2
[2022-12-25 11:51] LABS: Bedside Glucose 149 mg/dL (74-106)
--- NOTE | 2022-12-25 12:03 | CASEMGMT ---
Social Work SW assisted pt with Healthcare POA and Living Will documents. Pt did not have the addresses for all parties on the POA document, so SW gave the pt to complete the document when she returns to [facility]. KRISTIN also left a message for Ayaka at [facility] requesting staff assist her in completing the documents. ZENA Keenan
[2022-12-25] MEDS: Insulin Lispro 100 UNIT/ML INSULN.PEN SC (15:58)
[2022-12-25] MEDS: Rivaroxaban 15 MG Tablet PO (15:59)
[2022-12-25 16:16] LABS: Bedside Glucose 150 mg/dL (74-106)
[2022-12-25 19:03] LABS: Vancomycin, Trough Level 21.3 ug/mL (5.0-15.0)
--- NOTE | 2022-12-25 20:29 | PCM.RX.CS ---
Consult Type of Consult: Follow-up Suspected Infection: Sepsis Labs: Sodium 141 mmol/L (136-145) 12/25/22 05:50 Potassium 4.1 mmol/L (3.5-5.1) 12/25/22 05:50 Chloride 109 mmol/L (98-107) H 12/25/22 05:50 Carbon Dioxide 27.0 mmol/L (21.0-32.0) 12/25/22 05:50 Anion Gap 5 (5-15) 12/25/22 05:50 BUN 13 mg/dL (7-18) 12/25/22 05:50 Creatinine 0.64 mg/dL (0.55-1.02) 12/25/22 05:50 Est GFR (MDRD) Af Amer 117 mL/min (>60) 12/25/22 05:50 Est GFR (MDRD) Non-Af 97 mL/min (>60) 12/25/22 05:50 BUN/Creatinine Ratio 20.5 RATIO (10-20) H 12/25/22 05:50 Glucose 115 mg/dL (74-106) H 12/25/22 05:50 Vancomycin Trough 21.3 ug/mL (5.0-15.0) H 12/25/22 18:15 Microbiology: Microbiology 12/23/22 14:40 Blood Culture (Wb) - Left Wrist Blood Culture - Preliminary No growth in 48 hours. 12/23/22 14:55 Urine Catheter - Catheter Urine Culture - Final Presumptive E. coli 12/23/22 15:00 Blood Culture (Wb) - Anticubital Left Blood Culture - Preliminary Staphylococcus aureus 12/23/22 14:45 Nasal Secretion SARS-CoV-2 & FLU Antigen (Rapid) - Final Goal Trough: 15-20 mcg/mL Pharmacy Plan for Drug Dosing: VANCOMYCIN LEVEL RECEIVED Current Vancomycin Dose: 1500mg Q12H Number of Doses Received: 2000mg x1, 1500mg x3 Vancomycin Level: 21.3 Hours Since Last Dose: 11 Renal Function: sCr 0.64 Renal Function Trend: stable Vancomycin Plan/Comments: Adjust Vancomycin dosing regimen to 1000mg Q12H to start at 0000 12/26/22 Pending Level: Vancomycin trough @ 1130 12/27/22 Pharmacy Service will continue to monitor and adjust dosing as required. Labs to be done on [date and time ordered]: Vancomycin trough @ 1130 12/27/22
[2022-12-25] MEDS: Fluticasone 0.05% 1 SPRAY NASAL.SRY NASAL (21:41)
[2022-12-25] MEDS: Acetaminophen 325 MG Tablet 650 MG PO (21:43)
[2022-12-25] MEDS: Atorvastatin Calcium 10 MG Tablet PO (21:43)
[2022-12-25] MEDS: 0.9% Saline Lock 10 ML Syringe IV (21:46)
[2022-12-25 22:13] LABS: Bedside Glucose 142 mg/dL (74-106)
[2022-12-25] MEDS: Oxybutynin 5 MG Tablet PO (22:20)
[2022-12-25] MEDS: Pramipexole Di-HCl 0.25 MG Tablet PO (22:20)
[2022-12-25] MEDS: Vancomycin IV 1,000 MG/200 ML BAG 200 MG IV (23:37)
[2022-12-26] VITALS (9 sets, daily range): BP systolic 107–140; BP diastolic 54–74; PULSE 55–65; RESP 12–18; TEMP 36.3–36.7; O2SAT 93–99; BMI 47.7
[2022-12-26 06:23] LABS: Absolute Lymphocyte Count 1.25 X10^3/uL (0.83-4.51); Absolute Neutrophil Count 3.5 X10^3/uL (2.0-7.7); Basophil# 0.05 X10^3/uL; Basophil% 0.9 % (0-1); Eosinophil# 0.13 X10^3/uL; Eosinophils% 2.4 % (0-5); Hematocrit 33.4 % (37-47); Hemoglobin 10.8 g/dL (12.0-15.0); Lymphocyte # 1.25 X10^3/ul (0.83-4.51); Lymphocyte % 23.2 % (19-41); Mean Corp Hgb Conc 32.3 g/dL (32-36); Mean Corpuscular Hgb 29.8 pg (27.0-32.0); Mean Corpuscular Volume 92.3 fL (81-99); Mean Platelet Vol. 10.1 fl (6.2-12.0); Monocyte# 0.48 X10^3/uL; Monocyte% 8.9 % (0-10); NRBC Flagged by Analyzer 0 % (0-5); Neutrophil # 3.46 X10^3/uL (2.7-7.7); Neutrophil % 64.4 % (47-70); Platelet Count 156 K/mm3 (150-450); RBC Distribution Width CV 14.6 % (11.6-14.6); Red Blood Count 3.62 M/mm3 (4.2-5.4); White Blood Count 5.4 K/mm3 (4.4-11.0)
[2022-12-26 06:25] LABS: Bedside Glucose 101 mg/dL (74-106)
[2022-12-26 06:59] LABS: Anion Gap 5 (5-15); BUN 14 mg/dL (7-18); BUN/Creat Ratio 23.3 RATIO (10-20); Calcium,Total 8.4 mg/dL (8.5-10.1); Chloride 109 mmol/L (98-107); EST Glomerular Filtration Rate 103 mL/min (>60); Est Glom Filt Rate - Afr Amer 125 mL/min (>60); Estimated Creatinine Clearance 37.24 ml/min; Glucose 99 mg/dL (74-106); Potassium 4.2 mmol/L (3.5-5.1); Sodium Level 142 mmol/L (136-145)
[2022-12-26] MEDS: Budesonide Respules 0.5 MG/2 ML AMPUL.NEB. INHALATION ×2 (07:18→19:52)
--- NOTE | 2022-12-26 08:11 | PN.HOSP_ITS ---
Reason for Visit Reason for Visit: Diagnoses Sepsis, unspecified organism (12/23/22) Methicillin susceptible Staphylococcus aureus infection as the cause of diseases classified elsewhere (12/23/22) Elevated white blood cell count, unspecified (12/23/22) Urinary tract infection, site not specified (12/23/22) Fever, unspecified (12/23/22) Weakness (12/23/22) Bacteremia (12/23/22) Objective Data Objective Data Vital Signs: Vital Signs Temp Pulse Resp BP Pulse Ox O2 Del Method O2 Flow Rate 97.4 F L 55 L 14 112/63 97 Room Air 2 12/26/22 05:10 12/26/22 05:10 12/26/22 05:10 12/26/22 05:10 12/26/22 05:10 12/26/22 07:52 12/24/22 17:00 FiO2 30 12/26/22 05:10 Oxygen Flow Rate (L/min) 2 Oxygen Delivery Method Room Air Weight: 252 lb 6.868 oz Body Mass Index (BMI) 47.7 Intake & Output: Intake and Output for Last 24 Hours 12/24/22 12/25/22 12/26/22 23:59 23:59 23:59 Intake Total 2260 / 2260 2130 / 2130 340 / 340 Output Total 1999 / 1999 4700 / 4700 650 / 650 Balance 260 / 260 -2570 / -2570 -310 / -310 Lab / Micro Data Result Diagrams: 12/26/22 05:42 12/26/22 05:42 Labs: Laboratory Results - last 24 hr 12/25/22 10:18: POC Glucose 129 H 12/25/22 11:33: POC Glucose 149 H 12/25/22 15:56: POC Glucose 150 H 12/25/22 18:15: Vancomycin Trough 21.3 H 12/25/22 21:56: POC Glucose 142 H 12/26/22 05:42: WBC 5.4, RBC 3.62 L, Hgb 10.8 L, Hct 33.4 L, MCV 92.3, MCH 29.8, MCHC 32.3, RDW Std Deviation 49.0 H, RDW Coeff of Melissa 14.6, Plt Count 156, MPV 10.1, Immature Gran % (Auto) 0.200, Neut % (Auto) 64.4, Lymph % (Auto) 23.2, [place] % (Auto) 8.9, Eos % (Auto) 2.4, Baso % (Auto) 0.9, Absolute Neuts (auto) 3.5, Absolute Lymphs (auto) 1.25, Nucleated RBC % 0 12/26/22 05:42: Sodium 142, Potassium 4.2, Chloride 109 H, Carbon Dioxide 28.0, Anion Gap 5, BUN 14, Creatinine 0.60, Estim Creat Clear Calc 37.24, Est GFR (MDRD) Af Amer 125, Est GFR (MDRD) Non-Af 103, BUN/Creatinine Ratio 23.3 H, Glucose 99, Calcium 8.4 L 12/26/22 06:06: POC Glucose 101 Micro: Microbiology 12/23/22 15:00 Blood Culture (Wb) - Anticubital Left Blood Culture - Preliminary Meth. resistant Staph. aureus 12/23/22 14:40 Blood Culture (Wb) - Left Wrist Blood Culture - Preliminary No growth in 48 hours. 12/23/22 14:55 Urine Catheter - Catheter Urine Culture - Final Presumptive E. coli 12/23/22 14:45 Nasal Secretion SARS-CoV-2 & FLU Antigen (Rapid) - Final Physical Exam Narrative Erythema at left medial thigh improved dramatically bilateral lower legs with scattered wounds in various stages of healing none of which appeared infected, chronic venous stasis changes noted Assessment & Plan Assessment/Plan (1) Acute UTI: (2) Leukocytosis: (3) Generalized weakness: (4) Fever: (5) Sepsis: PLAN: Plan This is a 72-year-old female admitted from [facility] for fatigue and generalized weakness. History of ESBL UTI. 1. Sepsis secondary to MRSA bacteremia with left lower extremity cellulitis/acute on recurrent UTI: The patient presented with sepsis with clinical indicators of fever, tachycardia, tachypnea, leukocytosis due to left lower extremity cellulitis and acute on recurrent UTI with acute sepsis-related organ dysfunction as evidenced by hypotensive responsive to IV fluid. Patient was managed as per sepsis guidelines with IV fluid bolus 30 mill per KG body weight and broad-spectrum antibiotic. -Blood culture positive for MRSA. Urine culture more than 100,000 colonies ESBL negative ED coli. On IV vancomycin and meropenem. ID consulted and following. -Repeat blood cultures are pending from this morning 12/25/2022 -Echocardiogram done and shows an EF of 60% with stage I diastolic dysfunction and pulmonary systolic pressures of 28 mmHg TTE ordered. -Procalcitonin was elevated Generalized weakness -Suspect exacerbated by acute infection -PT/OT following -Sounds like her baseline mobility is not great -Patient is already a resident at [facility] -Consult social work and case management to facilitate discharge back to her facility once medically stable Paroxysmal atrial fibrillation with RVR -Continue to hold diltiazem 360 mg daily - reinitiate when blood pressure allows -Continue Xarelto Cardiac murmur -Echocardiogram here shows no valvular abnormalities -DAISY ordered with Staph aureus bacteremia and murmur present -Patient does have a history of rheumatic disease as a child 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 per hematology documentation from previous recent visit -Platelet count has normalized 259,000 -Continue to monitor with CBC -We will continue Xarelto as long as platelet counts above 50,000 Chronic mild anemia -Hemoglobin is stable -Continue to monitor as patient has had previous bleeding rectally -Patient is on chronic iron supplementation and will continue DM-2 -Hold metformin -Blood sugars remain controlled -Continue sliding scale -Continue Lantus 6 units -Accu-Cheks as ordered RILEY -Continue BiPAP with naps and at night Hypertension/hyperlipidemia: Patient was hypotensive due to sepsis but blood pressure has recovered. BP still fluctuates between 112- 40/74. Lasix resumed at lower dose 20 mg daily. Hold Aldactone.Heart rate 58/min. Oral Cardizem on hold. History of asthma -Continue home inhalers Seasonal allergies -Continue home nasal sprays History of vertigo -Hold as needed meclizine GERD -Continue home PPI Urinary incontinence -Continue home oxybutynin Morbid obesity -BMI is 46.3 -Recommend weight loss -Complicates treatment, prognosis, outcomes Depression -Continue home venlafaxine DVT prophylaxis -Continue Xarelto CODE STATUS Full code Charges/Coding Visit Charges Inpatient E&M: 22126 Subs Hosp L2
--- NOTE | 2022-12-26 09:00 | ECHOTEE_ITS ---
Reason For Study: Staph Aureus Bacteremia Medication DAISY probe 6VT-D (SN [id number]) passed without difficulty. No complications were noted. Cetacaine Topical [place] given X3 orally. Versed 2 mg given slow IVP. Fentanyl 50 mcg given slow IVP. Performed a rapid injection of agitated mix of 9 cc saline and 1cc air to assess for atrial septal defect. Left Ventricle Normal LV size. Left ventricular systolic function is normal. The estimated ejection fraction is 60 %. No regional wall motion abnormalities noted. Right Ventricle Normal RV size. Normal systolic function. Atria Normal atrial septum. Bubble contrast study negative for right to left interatrial shunt. Normal left atrium. No thrombus is detected in the left atrial appendage. Normal right atrium. Prominent eustachian valve. Mitral Valve Normal mitral valve. Mild (1+) eccentric mitral valve insufficiency. Tricuspid Valve Normal tricuspid valve. Aortic Valve Normal aortic valve. Trisinus/trileaflet aortic valve. Pulmonic Valve Normal pulmonic valve. Vessels Normal aortic root. Normal arch. The pulmonary artery is normal size. Pericardium No pericardial effusion. ECHO/Echo Transesophageal (DAISY) Interpretation Summary There is no evidence of a mass or vegetation. This does not rule out endocardit is. Normal LV size. Left ventricular systolic function is normal. The estimated ejection fraction is 60 %. Bubble contrast study negative for right to left interatrial shunt. Prominent eustachian valve. Mild (1+) eccentric mitral valve insufficiency. Ordering Physician: Renetta Cramer Referring Physician: Rosa Silva Performed By: Urmila Means, OMER, RVT
[2022-12-26] MEDS: Modafinil 200 MG Tablet 150 MG PO (10:53)
[2022-12-26] MEDS: Multivitamins,Therapeutic Tablet 1 TABLET PO (10:53)
[2022-12-26] MEDS: morphine SR 15 MG Tablet 30 MG PO ×2 (10:53→21:52)
[2022-12-26] MEDS: Ferrous Sulfate 325 MG Tablet PO ×2 (10:53→16:02)
[2022-12-26] MEDS: Potassium Chloride Oral Tablet 20 MEQ PO (10:53)
[2022-12-26] MEDS: Pantoprazole Sodium 40 MG Tablet PO (10:54)
[2022-12-26] MEDS: Pregabalin 50 MG Capsule PO ×2 (10:54→21:52)
[2022-12-26] MEDS: Venlafaxine XR 75 MG Capsule PO (10:54)
[2022-12-26] MEDS: Nystatin Powder 15gm Bottle 1 APPLIC TOPICAL ×2 (11:33→21:47)
[2022-12-26] MEDS: Menthol/Lanolin/Calamine/Znox 113 GM Tube 1 APPLIC TOPICAL ×2 (11:40→21:46)
[2022-12-26] MEDS: Triamcinolone Acetonide 0.1% Cream 15 gm 1 APPLIC TOPICAL (11:41)
[2022-12-26 12:13] LABS: Bedside Glucose 110 mg/dL (74-106)
[2022-12-26] MEDS: Vancomycin IV 1,000 MG/200 ML BAG 200 MG IV ×2 (14:25→23:07)
[2022-12-26] MEDS: Ceftriaxone 1 GM/50 mL Premix Q24 IV (15:57)
[2022-12-26] MEDS: Rivaroxaban 15 MG Tablet PO (16:02)
[2022-12-26 16:24] LABS: Bedside Glucose 125 mg/dL (74-106)
[2022-12-26] MEDS: Atorvastatin Calcium 10 MG Tablet PO (21:46)
[2022-12-26] MEDS: Pramipexole Di-HCl 0.25 MG Tablet PO (21:48)
[2022-12-26] MEDS: Oxybutynin 5 MG Tablet PO (21:49)
[2022-12-26] MEDS: 0.9% Saline Lock 10 ML Syringe IV ×2 (21:58→23:08)
[2022-12-26] MEDS: Fluticasone 0.05% 1 SPRAY NASAL.SRY NASAL (22:10)
[2022-12-26 22:18] LABS: Bedside Glucose 204 mg/dL (74-106)
[2022-12-27] VITALS (7 sets, daily range): BP systolic 111–118; BP diastolic 55–58; PULSE 55–74; RESP 12–18; TEMP 36.4; O2SAT 94–98; BMI 47.7
[2022-12-27 06:46] LABS: Anion Gap 5 (5-15); BUN 14 mg/dL (7-18); BUN/Creat Ratio 23.3 RATIO (10-20); Calcium,Total 8.5 mg/dL (8.5-10.1); Chloride 106 mmol/L (98-107); EST Glomerular Filtration Rate 103 mL/min (>60); Est Glom Filt Rate - Afr Amer 125 mL/min (>60); Estimated Creatinine Clearance 37.24 ml/min; Glucose 104 mg/dL (74-106); Potassium 4.2 mmol/L (3.5-5.1); Sodium Level 139 mmol/L (136-145)
[2022-12-27 06:55] LABS: Bedside Glucose 113 mg/dL (74-106)
[2022-12-27] MEDS: Budesonide Respules 0.5 MG/2 ML AMPUL.NEB. INHALATION (07:10)
[2022-12-27] MEDS: Pantoprazole Sodium 40 MG Tablet PO (08:20)
[2022-12-27] MEDS: Venlafaxine XR 75 MG Capsule PO (08:21)
[2022-12-27] MEDS: Triamcinolone Acetonide 0.1% Cream 15 gm 1 APPLIC TOPICAL (08:21)
[2022-12-27] MEDS: Multivitamins,Therapeutic Tablet 1 TABLET PO (08:21)
[2022-12-27] MEDS: Ferrous Sulfate 325 MG Tablet PO (08:21)
[2022-12-27] MEDS: Furosemide 20 MG Tablet PO (08:21)
[2022-12-27] MEDS: Potassium Chloride Oral Tablet 20 MEQ PO (08:21)
[2022-12-27] MEDS: Modafinil 200 MG Tablet 150 MG PO (10:09)
[2022-12-27] MEDS: Pregabalin 50 MG Capsule PO (10:09)
[2022-12-27] MEDS: morphine SR 15 MG Tablet 30 MG PO (10:09)
[2022-12-27] MEDS: Insulin Glargine-YFGN 100 UNIT/ML Pen 6 UNIT SC (10:10)
[2022-12-27] MEDS: Ceftriaxone 1 GM/50 mL Premix Q24 IV (10:10)
--- NOTE | 2022-12-27 10:11 | PCM.TXEXTCAR ---
Diet Diet Order/Speech Therapy: 12/26/22 15:18 Diet: Cardiac: Calorie-Controlled Is pt able to select menu?: Yes How many daily calories?: 1600 calorie Routine Orders/Code Status Suppository Type: Dulcolax 10mg Suppository Frequency: Daily PRN Code Status: Full Code Wound(s) BLE: Wound Type: healing scabs left lateral malleolus: Wound Type: Abrasion left forearm: Wound Type: infiltrated iv site Therapies Weight Bearing: Weight bearing as tolerated Extremity Affected:: Bilateral Lower Physical Therapy: Eval and Treat Occupational Therapy: Eval and Treat Speech Therapy: Eval and Treat Problem/Diagnosis (1) Acute UTI: Status: Acute Code(s): N39.0 - Urinary tract infection, site not specified (2) Leukocytosis: Status: Acute Code(s): D72.829 - Elevated white blood cell count, unspecified (3) Generalized weakness: Status: Acute Code(s): R53.1 - Weakness (4) Fever: Status: Acute Code(s): R50.9 - Fever, unspecified (5) Sepsis: Status: Acute Code(s): A41.9 - Sepsis, unspecified organism Plan This is a 72-year-old female admitted from [facility] for fatigue and generalized weakness. History of ESBL UTI. 1. Sepsis secondary to MRSA bacteremia with left lower extremity cellulitis/acute on recurrent UTI: The patient presented with sepsis with clinical indicators of fever, tachycardia, tachypnea, leukocytosis due to left lower extremity cellulitis and acute on recurrent UTI with acute sepsis-related organ dysfunction as evidenced by hypotensive responsive to IV fluid. Patient was managed as per sepsis guidelines with IV fluid bolus 30 mill per KG body weight and broad-spectrum antibiotic. -Blood culture positive for MRSA. Urine culture more than 100,000 colonies ESBL negative E coli. On IV vancomycin and meropenem. ID consulted and following. IV meropenem was discontinued and changed to ceftriaxone on 12/26. -Echocardiogram done and shows an EF of 60% with stage I diastolic dysfunction and pulmonary systolic pressures of 28 mmHg DAISY ordered. -Procalcitonin was elevated 12/27: Blood culture from 12/08 negative for more than 48 hours. DAISY was done on 12/26 and reported no evidence of mass or vegetation. EF 60%. Bubble contrast study negative for [id number] interatrial shunt. Mild eccentric MR. Patient had 2 dosages of IV ceftriaxone. Patient is discharged to [facility] with 11 days of p.o. linezolid 600 mg twice daily to complete course. 2. Generalized weakness -Suspect exacerbated by acute infection -PT/OT following -Sounds like her baseline mobility is not great -Patient is already a resident at [facility] -Consult social work and case management to facilitate discharge back to her facility once medically stable Paroxysmal atrial fibrillation with RVR -Continue to hold diltiazem 360 mg daily - reinitiate when blood pressure allows -Continue Xarelto Cardiac murmur -TTE shows mild TR but DAISY shows mild eccentric MR. 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 per hematology documentation from previous recent visit -Platelet count has normalized 259,000 -Continue to monitor with CBC continue Xarelto as long as platelet counts above 50,000 Chronic mild anemia -Hemoglobin is stable -Continue to monitor as patient has had previous bleeding rectally -Patient is on chronic iron supplementation and will continue DM-2 -Hold metformin -Blood sugars remain controlled -Continue sliding scale -Continue Lantus 6 units -Accu-Cheks as ordered RILEY -Continue BiPAP with naps and at night Hypertension/hyperlipidemia: Patient was hypotensive due to sepsis but blood pressure has recovered. BP still fluctuates between 112- 40/74. Lasix resumed at lower dose 20 mg daily. Hold Aldactone.Heart rate 58/min. Oral Cardizem on hold. History of asthma -Continue home inhalers Seasonal allergies -Continue home nasal sprays History of vertigo -Hold as needed meclizine GERD -Continue home PPI Urinary incontinence -Continue home oxybutynin Morbid obesity -BMI is 46.3 -Recommend weight loss -Complicates treatment, prognosis, outcomes Depression -Continue home venlafaxine DVT prophylaxis -Continue Xarelto CODE STATUS Full code Allergies/Procedures Done in Hospital Allergies aspirin Allergy (Severe, Verified 12/23/22 14:09) Hives Penicillins Allergy (Severe, Verified 12/23/22 14:09) Anaphylaxis stops breathing Sulfa (Sulfonamide Antibiotics) Allergy (Severe, Verified 12/23/22 14:09) Anaphylaxis stops breathing latex Allergy (Verified 12/23/22 14:09) Rash Type of Care/Length of Stay Estimated LOS: More Than 30 Days Type of Care Needed: Intermediate Rehab Potential: Good Prognosis: Good Additional Orders/Day of Discharge Day of Discharge: 12/27/22 Dietary and Speech Recommendations Dietitian Recommendations/Changes: Will change diet to 1600 joshua Cardiac to better meet pt est nutritional needs Discharge Plan Admission Admit Date/Time: 12/23/22 15:55 Primary Reason for Your Visit: MRSA bacteremia, ESBL negative E. coli UTI Attending Provider: Shayne Elder Primary Care Provider: Rosa Silva Consulting Providers: Michael Galan ; Sammy Andujar ; Steve Vera ; Shoaib Samaniego ; Swapnil Mares ; Eleni Diaz NP ; Renetta Cramer Discharge Orders/Prescriptions Prescriptions: New linezolid 600 mg tablet 600 mg PO Q12H Qty: 22 0RF Rx Instructions: ok to give with her effexor given short course of abx and low dose of SSRI sennosides-docusate sodium [Stool Softener-Stimulant Laxat] 8.6-50 mg Tablet 2 tab PO BID PRN PRN (Reason: Constipation) Qty: 0 0RF insulin lispro [Humalog KwikPen Insulin] 100 unit/mL Insulin Pen See Protocol subcut TIDAC Qty: 0 0RF Protocol: 3. Sliding Scale Insulin Med Dosing Condition: 150-189 mg/dl = 1 unit Condition: 190-229 mg/dl = 2 units Condition: 230-269 mg/dl = 3 units Condition: 270-309 mg/dl = 4 units Condition: 310-349 mg/dl = 5 units Condition: 350-399 mg/dl = 6 units Condition: 400-449 mg/dl = 7 units Condition: Greater than 449 call physician Protocol Text: - Use for Total Daily Dose of Insulin 37-55 units - Obsese, infected, or steroid patients MEDIUM DOSING ALGORITHIM diltiazem HCl 240 mg Capsule,Extended Release 24hr 240 mg PO DAILY Qty: 0 0RF Rx Instructions: Hold for heart less than 60 or systolic blood pressure less than 110 mmHg. Continued fluticasone propionate 1 SPRAY spray,suspension 1 spray NASAL QHS omeprazole 40 mg Capsule,Delayed Release(Dr/Ec) 40 mg PO DAILY multivitamin Tablet 1 tab PO DAILY acetaminophen 325 mg Tablet 650 mg PO Q4H PRN (Reason: Pain) bisacodyl 10 mg Suppository 10 mg AK DAILY PRN (Reason: Constipation) oxybutynin chloride 5 mg Tablet 5 mg PO QHS venlafaxine 75 mg capsule,extended release 24hr 75 mg PO DAILY Xarelto 15 mg Tablet 15 mg PO DINNER 30 Days Qty: 0 0RF Hold Instructions: until platelet count above 100,000 atorvastatin [Lipitor] 10 mg Tablet 10 mg PO QHS meclizine 25 mg Tablet 25 mg PO TID PRN (Reason: Vertigo) pramipexole [Mirapex] 0.25 mg Tablet 0.25 mg PO QHS modafinil 200 mg tablet 150 mg PO DAILY 2 Days Qty: 3 0RF insulin glargine [Basaglar KwikPen U-100 Insulin] 100 unit/mL (3 mL) insulin pen 6 unit SUBCUT DAILY Qty: 30 0RF pregabalin 50 mg Capsule 50 mg PO BID metformin 850 mg tablet 850 mg PO DAILY triamcinolone acetonide 0.1 % Cream 1 applic TOPICAL DAILY Arnuity Ellipta 100 mcg/actuation blister with device 1 inh INHALATION QHS methenamine hippurate 1 gram tablet 1 g PO BID morphine 30 mg Tablet 30 mg PO BID 2 Days Qty: 0 0RF Rx Instructions: Hold for sedation Changed spironolactone 25 mg tablet 25 mg PO DAILY 30 Days Qty: 0 0RF ferrous sulfate [iron] 325 mg (65 mg iron) Tablet 325 mg PO QODAY 30 Days Qty: 0 0RF furosemide 20 mg tablet 40 mg PO DAILY 30 Days Qty: 0 0RF Rx Instructions: Hold if creatinine jumps more than 30% than baseline. Discontinued potassium chloride 20 mEq tablet extended release 20 meq PO DAILY diltiazem HCl 360 mg Capsule,Extended Release 24 Hr 360 mg PO DAILY furosemide 80 mg Tablet 80 mg PO DAILY Referrals / Follow Up: Rosa Silva MD [Primary Care Provider] - Within 2 Weeks Disposition Disposition (needs filled in before D/C Order can be placed): NonSkilled NH/Intermed Care
--- NOTE | 2022-12-27 10:12 | DS.PCM_ITS ---
Providers Date of Admission: 12/23/22 Date of Discharge: 12/27/22 Primary Care Physician: Dr. Rosa Silva MD Consultations 12/23/22 17:16 Consult: Infectious Disease Routine Consulting Provider: Michael Galan Reason for Consult: UTI-->H/O ESBL EMERGENT Consult: No Notified: Yes Date Notified: 12/24/22 Time Notified: 09:22 Method of Notification: Answering Service 12/23/22 22:03 Consult: Web Press Operator Assistant / Pulmonary Medicine Routine Consulting Provider: Pulmonary Medicine lala Turner Reason for Consult: sepsis EMERGENT Consult: No Notified: Yes Date Notified: 12/23/22 Time Notified: 20:46 Method of Notification: Verbal Reason For Visit: UTI Diagnosis Discharge Diagnosis (1) Acute UTI: Status: Acute Code(s): N39.0 - Urinary tract infection, site not specified (2) Leukocytosis: Status: Acute Code(s): D72.829 - Elevated white blood cell count, unspecified (3) Generalized weakness: Status: Acute Code(s): R53.1 - Weakness (4) Fever: Status: Acute Code(s): R50.9 - Fever, unspecified (5) Sepsis: Status: Acute Code(s): A41.9 - Sepsis, unspecified organism Plan This is a 72-year-old female [facility] for [facility] and generalized weakness.? History of ESBL UTI. 1.? Sepsis secondary to MRSA bacteremia with left lower extremity cellulitis/acute on recurrent UTI: The patient presented with sepsis with clinical indicators of fever, tachycardia, tachypnea, leukocytosis due to left? lower extremity cellulitis and acute on recurrent UTI with acute sepsis-related organ dysfunction as evidenced by hypotensive responsive to IV fluid.? Patient was managed as per sepsis guidelines with IV fluid bolus 30 mill per KG body weight and broad-spectrum antibiotic. -Blood culture positive for MRSA.? Urine culture more than 100,000 colonies ESBL negative E coli.? On IV vancomycin and meropenem.? ID consulted and following.? IV meropenem was discontinued and changed to ceftriaxone on 12/26. -Echocardiogram done and shows an EF of 60% with stage I diastolic dysfunction and pulmonary systolic pressures of 28 mmHg DAISY ordered. -Procalcitonin was elevated 12/27: Blood culture from 12/08 negative for more than 48 hours.? DAISY was done on 12/26 and reported no evidence of mass or vegetation.? EF 60%.? Bubble contrast study negative for [id number] interatrial shunt.? Mild eccentric MR.? Patient had 2 dosages of IV ceftriaxone.? [facility] with 11 days of p.o. linezolid 600 mg twice daily to complete course. Patient to continue methenamine hippurate for UTI prophylaxis. Discussed with ID. 2.? Generalized weakness -Suspect exacerbated by acute infection -PT/OT following -Sounds like her baseline mobility is not great -Patient is already a resident at [facility] and is discharged to the same. Paroxysmal atrial fibrillation with RVR -Heart rate was controlled. -Continue Xarelto. Patient on Cardizem CD 360 mg daily changed to to 40 mg daily as patient heart rate was between 50 to 70/min Cardiac murmur -TTE shows mild TR but DAISY shows mild eccentric MR.? 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 Glucose is controlled. On Accu-Chek with Humalog sliding scale. RILEY -Continue BiPAP with naps and at night Hypertension/hyperlipidemia: Patient was hypotensive due to sepsis but blood pressure has recovered.? BP still fluctuates between 112- 40/74.? Lasix resumed at lower dose 20 mg daily.? Hold Aldactone.Heart rate 58/min.? Oral Cardizem on hold. History of asthma -Continue home inhalers Seasonal allergies -Continue home nasal sprays History of vertigo -Hold as needed meclizine GERD -Continue home PPI Urinary incontinence -Continue home oxybutynin Morbid obesity -BMI is 46.3 -Recommend weight loss -Complicates treatment, prognosis, outcomes Depression -Continue home venlafaxine DVT prophylaxis -Continue Xarelto CODE STATUS Full code Discharge medication reconciliation done. Discharge follow-up instructions completed. Discharge process discussed with the patient and all questions were answered to patient's satisfaction. Total time spent, exact 35 minutes on discharge meds reconciliation, examination, coordination of care with nurses and ancillary staff, review of imaging and blood test and discussion with the patient on follow-up instructions. Medications at Discharge Home Medications fluticasone propionate 50 mcg/actuation nasal spray,suspension 1 spray QHS allergies 02/16/14 acetaminophen 325 mg tablet 650 mg PO Q4H PRN Pain 09/09/21 bisacodyl 10 mg rectal suppository 10 mg W[place] DAILY PRN Constipation 09/09/21 multivitamin 1 tab PO DAILY supplement 09/09/21 omeprazole 40 mg capsule,delayed release 40 mg PO DAILY gerd 09/09/21 oxybutynin chloride 5 mg tablet 5 mg PO QHS bladder spasms 09/09/21 venlafaxine 75 mg capsule,extended release 24 hr 75 mg PO DAILY mental health 05/25/22 rivaroxaban 15 mg tablet (Xarelto) 15 mg PO DINNER 30 days #0 tabs 05/28/22 atorvastatin 10 mg tablet (Lipitor) 10 mg PO QHS cholesterol 09/09/22 meclizine 25 mg tablet 25 mg PO TID PRN Vertigo 09/09/22 pramipexole 0.25 mg tablet (Mirapex) 0.25 mg PO QHS restless legs 09/09/22 insulin glargine 100 unit/mL (3 mL) subcutaneous pen (Basaglar KwikPen U-100 Insulin) 6 unit (0.06 mL) subcut DAILY diabetes #30 mL 09/26/22 modafinil 200 mg tablet 150 mg PO DAILY 2 days #3 tabs 09/26/22 pregabalin 50 mg capsule 50 mg PO BID NEUROPATHY 10/09/22 fluticasone furoate 100 mcg/actuation blister powder for inhalation (Arnuity Ellipta) 1 inh inhalation QHS COPD 12/23/22 metformin 850 mg tablet 850 mg PO DAILY DM 12/23/22 methenamine hippurate 1 gram tablet 1 g PO BID UTI 12/23/22 triamcinolone acetonide 0.1 % topical cream 1 applic topical DAILY ITCHING 12/23/22 diltiazem HCl 240 mg capsule,extended release 24 hr 240 mg PO DAILY #0 caps 12/27/22 ferrous sulfate 325 mg (65 mg iron) tablet (iron) 325 mg PO QODAY supplement 30 days #0 tabs 12/27/22 furosemide 20 mg tablet 40 mg PO DAILY EDEMA 30 days #0 tabs 12/27/22 insulin lispro 100 unit/mL subcutaneous pen (Humalog KwikPen (U-100) Insulin) See Protocol subcut TIDAC #0 mL 12/27/22 linezolid 600 mg tablet 600 mg PO Q12H #22 tabs 12/27/22 morphine 30 mg immediate release tablet 30 mg PO BID pain 2 days #0 tabs 12/27/22 sennosides 8.6 mg-docusate sodium 50 mg tablet (Stool Softener-Stimulant Laxative) 2 tab PO BID PRN PRN Constipation #0 tabs 12/27/22 spironolactone 25 mg tablet 25 mg PO DAILY diuretic 30 days #0 tabs 12/27/22 Physical Exam Narrative Overall patient is feeling much improved. No fever. Physical exam: General: Alert, Oriented x3, Cooperative HEENT: Atraumatic, PERRLA, EOMI, Normocephalic Oral: No Gingival or Mucosal Lesions/ Ulcerations Neck: Supple, No JVD, Negative Carotid Bruits Lungs: Air entry diminished in bilateral lung bases. No crepitation/rhonchi Cardiovascular: Regular rate, Regular Rhythm, Normal S1, Normal S2, systolic murmur LSB. Abdomen: Bowel Sounds Present, Soft, Non Tender, Non-Distended : No renal angle tenderness. No suprapubic tenderness. Extremities: No edema, Capillary Refill Less than 3 Seconds Skin: Small superficial wound over left lateral leg. Venous stasis. Erythema to left medial thigh improved. Small scattered, noninfected minor wounds in both lower legs. Musculoskeletal: No Tenderness to Palpation of Joints or Extremities Neurological: Cranial nerves II-XII grossly intact, DTR 2+/4 and Symmetrical, Neuro grossly intact Psych/Mental Status: Normal Affect, Appropriate. Weight / BMI Weight Weight: 252 lb 13.923 oz Body Mass Index (BMI) 47.7 ABG / Lab / Microbiology Data Result Diagrams: 12/26/22 05:42 12/27/22 06:05 Laboratory: Laboratory Results - last 24 hr 12/26/22 11:53: POC Glucose 110 H 12/26/22 16:03: POC Glucose 125 H 12/26/22 21:42: POC Glucose 204 H 12/27/22 06:05: Sodium 139, Potassium 4.2, Chloride 106, Carbon Dioxide 28.0, Anion Gap 5, BUN 14, Creatinine 0.60, Estim Creat Clear Calc 37.24, Est GFR (MDRD) Af Amer 125, Est GFR (MDRD) Non-Af 103, BUN/Creatinine Ratio 23.3 H, Glucose 104, Calcium 8.5 12/27/22 06:35: POC Glucose 113 H Microbiology: Microbiology 12/25/22 05:50 Blood Culture (Wb) - Left Forearm Blood Culture - Preliminary No growth in 48 hours. 12/23/22 15:00 Blood Culture (Wb) - Anticubital Left Blood Culture - Preliminary Meth. resistant Staph. aureus 12/23/22 14:40 Blood Culture (Wb) - Left Wrist Blood Culture - Preliminary No growth in 48 hours. 12/23/22 14:55 Urine Catheter - Catheter Urine Culture - Final Presumptive E. coli 12/23/22 14:45 Nasal Secretion SARS-CoV-2 & FLU Antigen (Rapid) - Final Radiography Diagnostic Testing: Radiology Impression Transesophageal Echocardiogram 12/26/22 09:00 Interpretation Summary There is no evidence of a mass or vegetation. This does not rule out endocarditis. Normal LV size. Left ventricular systolic function is normal. The estimated ejection fraction is 60 %. Bubble contrast study negative for right to left interatrial shunt. Prominent eustachian valve. Mild (1+) eccentric mitral valve insufficiency. Ordering Physician: Renetta Cramer Referring Physician: Rosa Silva Performed By: Urmila Means, OMER, RVT Meaningful Use Info Meaningful Use Diagnoses (Choose all that apply): None applicable Discharge Plan Admission Admit Date/Time: 12/23/22 15:55 Primary Reason for Your Visit: MRSA bacteremia, ESBL negative E. coli UTI Attending Provider: Shayne Elder Primary Care Provider: Rosa Silva Consulting Providers: Michael Galan ; Sammy Andujar ; Steve Vera ; Shoaib Samaniego ; Swapnil Mares ; Eleni Diaz INSPECTOR AND UNLOADER ; Renetta Cramer Discharge Orders/Prescriptions Prescriptions: New linezolid 600 mg tablet 600 mg PO Q12H Qty: 22 0RF Rx Instructions: ok to give with her effexor given short course of abx and low dose of SSRI sennosides-docusate sodium [Stool Softener-Stimulant Laxat] 8.6-50 mg Tablet 2 tab PO BID PRN PRN (Reason: Constipation) Qty: 0 0RF insulin lispro [Humalog KwikPen Insulin] 100 unit/mL Insulin Pen See Protocol subcut TIDAC Qty: 0 0RF Protocol: 3. Sliding Scale Insulin Med Dosing Condition: 150-189 mg/dl = 1 unit Condition: 190-229 mg/dl = 2 units Condition: 230-269 mg/dl = 3 units Condition: 270-309 mg/dl = 4 units Condition: 310-349 mg/dl = 5 units Condition: 350-399 mg/dl = 6 units Condition: 400-449 mg/dl = 7 units Condition: Greater than 449 call physician Protocol Text: - Use for Total Daily Dose of Insulin 37-55 units - Obsese, infected, or steroid patients MEDIUM DOSING ALGORITHIM diltiazem HCl 240 mg Capsule,Extended Release 24hr 240 mg PO DAILY Qty: 0 0RF Rx Instructions: Hold for heart less than 60 or systolic blood pressure less than 110 mmHg. Continued fluticasone propionate 1 SPRAY spray,suspension 1 spray NASAL QHS omeprazole 40 mg Capsule,Delayed Release(Dr/Ec) 40 mg PO DAILY multivitamin Tablet 1 tab PO DAILY acetaminophen 325 mg Tablet 650 mg PO Q4H PRN (Reason: Pain) bisacodyl 10 mg Suppository 10 mg WV DAILY PRN (Reason: Constipation) oxybutynin chloride 5 mg Tablet 5 mg PO QHS venlafaxine 75 mg capsule,extended release 24hr 75 mg PO DAILY Xarelto 15 mg Tablet 15 mg PO DINNER 30 Days Qty: 0 0RF Hold Instructions: until platelet count above 100,000 atorvastatin [Lipitor] 10 mg Tablet 10 mg PO QHS meclizine 25 mg Tablet 25 mg PO TID PRN (Reason: Vertigo) pramipexole [Mirapex] 0.25 mg Tablet 0.25 mg PO QHS modafinil 200 mg tablet 150 mg PO DAILY 2 Days Qty: 3 0RF insulin glargine [Basaglar KwikPen U-100 Insulin] 100 unit/mL (3 mL) insulin pen 6 unit SUBCUT DAILY Qty: 30 0RF pregabalin 50 mg Capsule 50 mg PO BID metformin 850 mg tablet 850 mg PO DAILY triamcinolone acetonide 0.1 % Cream 1 applic TOPICAL DAILY Arnuity Ellipta 100 mcg/actuation blister with device 1 inh INHALATION QHS methenamine hippurate 1 gram tablet 1 g PO BID morphine 30 mg Tablet 30 mg PO BID 2 Days Qty: 0 0RF Rx Instructions: Hold for sedation Changed spironolactone 25 mg tablet 25 mg PO DAILY 30 Days Qty: 0 0RF ferrous sulfate [iron] 325 mg (65 mg iron) Tablet 325 mg PO QODAY 30 Days Qty: 0 0RF furosemide 20 mg tablet 40 mg PO DAILY 30 Days Qty: 0 0RF Rx Instructions: Hold if creatinine jumps more than 30% than baseline. Discontinued potassium chloride 20 mEq tablet extended release 20 meq PO DAILY diltiazem HCl 360 mg Capsule,Extended Release 24 Hr 360 mg PO DAILY furosemide 80 mg Tablet 80 mg PO DAILY Referrals / Follow Up: Rosa Silva MD [Primary Care Provider] - Within 2 Weeks Disposition Disposition (needs filled in before D/C Order can be placed): NonSkilled NH/Intermed Care Charges/Coding Visit Charges Inpatient E&M: 77788 Disch Hosp >30min
--- NOTE | 2022-12-27 10:16 | PCM.PN.ID ---
Physical Exam Narrative Throat mildly sore s/p DAISY. No fever, no n/v/d, feeling better. Const alert and no apparent distress General Appearance: cooperative Resp normal air movement and clear to auscultation bilaterally Cardio regular rate and regular rhythm GI soft to palpation, non-tender and non-distended Skin no rashes or lesions noted ID ID: Route of nutrition/ use of supplements: [] Nutritional Intake: [] IV Site: [] Aldana Catheter: [] Assessment & Plan Assessment/Plan (1) Staphylococcus aureus bacteremia: PLAN: MRSA (+) in single bcx. Has h/o rheumatic fever as a child. No veg seen on DAISY. On vanc and ceftriaxone, tolerating well so far. Ucx with ecoli, not ESBL this time. Repeat bcx neg at 48 hours. Plan at this point will be to stop ceftriaxone tomorrow, d/c to [facility] with 11 days po linezolid 600mg bid to complete course. Will follow, d/w case finishing machine adjuster (2) Sepsis: (3) Acute UTI:
[2022-12-27] MEDS: Menthol/Lanolin/Calamine/Znox 113 GM Tube 1 APPLIC TOPICAL (10:21)
[2022-12-27] MEDS: Nystatin Powder 15gm Bottle 1 APPLIC TOPICAL (10:22)
[2022-12-27 11:23] LABS: Bedside Glucose 152 mg/dL (74-106)
[2022-12-27 11:57] LABS: Vancomycin, Trough Level 20.3 ug/mL (5.0-15.0)
--- NOTE | 2022-12-27 12:52 | CASEMGMT ---
Patient is ready for discharge back to [facility] today. Lizz D/C bus assistant sent orders to [facility] via [facility]. Lizz also arranged for patient to get picked up at via wheelchair van. [facility] and [facility] were notified. SW notified patient. Plan: d/c back to [facility] under intermediae level of care. Physicians will transport via wheelchair van. Navya BUNCH
--- NOTE | 2022-12-27 13:17 | PCM.RX.CS ---
Consult Pharmacy has been consulted to manage selected antiobiotic: Vancomycin Type of Consult: Follow-up Prior Doses of Antibiotics Received/Current Regimen: 1000mg iv q12h Labs: Sodium 139 mmol/L (136-145) 12/27/22 06:05 Potassium 4.2 mmol/L (3.5-5.1) 12/27/22 06:05 Chloride 106 mmol/L (98-107) 12/27/22 06:05 Carbon Dioxide 28.0 mmol/L (21.0-32.0) 12/27/22 06:05 Anion Gap 5 (5-15) 12/27/22 06:05 BUN 14 mg/dL (7-18) 12/27/22 06:05 Creatinine 0.60 mg/dL (0.55-1.02) 12/27/22 06:05 Est GFR (MDRD) Af Amer 125 mL/min (>60) 12/27/22 06:05 Est GFR (MDRD) Non-Af 103 mL/min (>60) 12/27/22 06:05 BUN/Creatinine Ratio 23.3 RATIO (10-20) H 12/27/22 06:05 Glucose 104 mg/dL (74-106) 12/27/22 06:05 Vancomycin Trough 20.3 ug/mL (5.0-15.0) H 12/27/22 11:17 Microbiology: Microbiology 12/25/22 05:50 Blood Culture (Wb) - Left Forearm Blood Culture - Preliminary No growth in 48 hours. 12/23/22 15:00 Blood Culture (Wb) - Anticubital Left Blood Culture - Preliminary Meth. resistant Staph. aureus 12/23/22 14:40 Blood Culture (Wb) - Left Wrist Blood Culture - Preliminary No growth in 48 hours. 12/23/22 14:55 Urine Catheter - Catheter Urine Culture - Final Presumptive E. coli 12/23/22 14:45 Nasal Secretion SARS-CoV-2 & FLU Antigen (Rapid) - Final Weight used for dosin kg Estimated Creatinine Clearance: 74 ml/min Goal Trough: 15-20 mcg/mL Pharmacy Plan for Drug Dosing: Trough today 20.3 (goal 15-20 mcg/ml). CrCl ~96 ml/min using adjusted body weight of 74.3kg. Will continue same dose. New trough level ordered for tomorrow before another 4th dose per policy. Pharmacy Service will continue to monitor and adjust dosing as required. Follow-Up Labs: Trough Vancomycin - 6.2.23 @2330 before 0000 dose
--- NOTE | 2022-12-27 13:42 | NURSING ---
Report called to nurse Weiss at [facility]
--- NOTE | 2022-12-27 14:24 | PHA.DC.MR ---
Pharmacy Service has performed discharge medication reconciliation for this patient upon transfer to [facility]. Home Medications fluticasone propionate 50 mcg/actuation nasal spray,suspension 1 spray QHS allergies 02/16/14 acetaminophen 325 mg tablet 650 mg PO Q4H PRN Pain 09/09/21 bisacodyl 10 mg rectal suppository 10 mg AR DAILY PRN Constipation 09/09/21 multivitamin 1 tab PO DAILY supplement 09/09/21 omeprazole 40 mg capsule,delayed release 40 mg PO DAILY gerd 09/09/21 oxybutynin chloride 5 mg tablet 5 mg PO QHS bladder spasms 09/09/21 venlafaxine 75 mg capsule,extended release 24 hr 75 mg PO DAILY mental health 05/25/22 rivaroxaban 15 mg tablet (Xarelto) 15 mg PO DINNER 30 days #0 tabs 05/28/22 atorvastatin 10 mg tablet (Lipitor) 10 mg PO QHS cholesterol 09/09/22 meclizine 25 mg tablet 25 mg PO TID PRN Vertigo 09/09/22 pramipexole 0.25 mg tablet (Mirapex) 0.25 mg PO QHS restless legs 09/09/22 insulin glargine 100 unit/mL (3 mL) subcutaneous pen (Basaglar KwikPen U-100 Insulin) 6 unit (0.06 mL) subcut DAILY diabetes #30 mL 09/26/22 modafinil 200 mg tablet 150 mg PO DAILY 2 days #3 tabs 09/26/22 pregabalin 50 mg capsule 50 mg PO BID NEUROPATHY 10/09/22 fluticasone furoate 100 mcg/actuation blister powder for inhalation (Arnuity Ellipta) 1 inh inhalation QHS COPD 12/23/22 metformin 850 mg tablet 850 mg PO DAILY DM 12/23/22 methenamine hippurate 1 gram tablet 1 g PO BID UTI 12/23/22 triamcinolone acetonide 0.1 % topical cream 1 applic topical DAILY ITCHING 12/23/22 diltiazem HCl 240 mg capsule,extended release 24 hr 240 mg PO DAILY #0 caps 12/27/22 ferrous sulfate 325 mg (65 mg iron) tablet (iron) 325 mg PO QODAY supplement 30 days #0 tabs 12/27/22 furosemide 20 mg tablet 40 mg PO DAILY EDEMA 30 days #0 tabs 12/27/22 insulin lispro 100 unit/mL subcutaneous pen (Humalog KwikPen (U-100) Insulin) See Protocol subcut TIDAC #0 mL 12/27/22 linezolid 600 mg tablet 600 mg PO Q12H #22 tabs 12/27/22 morphine 30 mg immediate release tablet 30 mg PO BID pain 2 days #0 tabs 12/27/22 sennosides 8.6 mg-docusate sodium 50 mg tablet (Stool Softener-Stimulant Laxative) 2 tab PO BID PRN PRN Constipation #0 tabs 12/27/22 spironolactone 25 mg tablet 25 mg PO DAILY diuretic 30 days #0 tabs 12/27/22 The patient's discharge medication list was reviewed for discrepancies and discrepancies were resolved. -Note: Discussed Zyvoxx and Effexor interaction with ID service, will plan to continue current treatment.
== END 2022-12-27 14:11 | disposition intermediate care facility (04) | DRG 690 ==
LOC: ED 16:00 → MS3 16:24 → ICU 21:32 → PCU 12-25 10:54
PROVIDERS: Admitting Provider Internal Medicine; Emergency Provider Emergency Medicine; PCP Internal Medicine; Visit Provider Internal Medicine
DX: N39.0 Urinary tract infection, site not specified (principal); D69.3 Immune thrombocytopenic purpura; L03.116 Cellulitis of left lower limb; Z68.42 Body mass index [BMI] 45.0-49.9, adult; I11.0 Hypertensive heart disease with heart failure; E11.42 Type 2 diabetes mellitus with diabetic polyneuropathy; D64.9 Anemia, unspecified; B96.20 Unspecified Escherichia coli [E. coli] as the cause of diseases classified elsewhere; I50.9 Heart failure, unspecified; I95.9 Hypotension, unspecified; J44.9 Chronic obstructive pulmonary disease, unspecified; E66.01 Morbid (severe) obesity due to excess calories; Z79.4 Long term (current) use of insulin; I48.0 Paroxysmal atrial fibrillation; F32.A Depression, unspecified; E78.00 Pure hypercholesterolemia, unspecified; K21.9 Gastro-esophageal reflux disease without esophagitis; G47.33 Obstructive sleep apnea (adult) (pediatric); J30.2 Other seasonal allergic rhinitis; R32 Unspecified urinary incontinence; R01.1 Cardiac murmur, unspecified; G89.4 Chronic pain syndrome; Z20.822 Contact with and (suspected) exposure to COVID-19; Z79.01 Long term (current) use of anticoagulants; Z79.51 Long term (current) use of inhaled steroids; Z79.84 Long term (current) use of oral hypoglycemic drugs; Z99.81 Dependence on supplemental oxygen; Z79.899 Other long term (current) drug therapy
CPT/HCPCS: 36415; 36600; 51702; 71045; 80048; 80053; 80202; 81001; 82803; 82962; 83605; 83735; 83880; 84100; 84145; 85025; 87040; 87077; 87086; 87088; 87186; 87428; 87641; 93005; 93306; 93312; 93320; 93325; 94002; 94003; 94640; 94668; 94762; 97110; 97162; 97166; 97530; 97535; 97802; 99252; 99285; J2185; J7030; J7040; Q9957; A4216; G0463

== ENCOUNTER → 2022-12-23 | Outpatient (REF) | payer MEDICARE, MEDICAID, SELFPAY ==
[2022-12-23 11:36] LABS: Anion Gap 7 (5-15); BUN 23 mg/dL (7-18); BUN/Creat Ratio 27.2 RATIO (10-20); Calcium,Total 9.1 mg/dL (8.5-10.1); Chloride 102 mmol/L (98-107); Creatinine, Serum 0.85 mg/dL (0.55-1.02); EST Glomerular Filtration Rate 70 mL/min (>60); Est Glom Filt Rate - Afr Amer 84 mL/min (>60); Glucose 122 mg/dL (74-106); Potassium 3.8 mmol/L (3.5-5.1); Sodium Level 140 mmol/L (136-145)
== END ==
LOC: OLS.SW 10:55
PROVIDERS: PCP Internal Medicine; Visit Provider Internal Medicine
DX: R41.82 Altered mental status, unspecified (principal); R51.9 Headache, unspecified; M62.838 Other muscle spasm
CPT/HCPCS: 36415; 80048; 83735

== ENCOUNTER → 2022-12-28 | Outpatient (REF) | payer MEDICARE, MEDICAID, SELFPAY ==
[2022-12-28 08:14] LABS: Anion Gap 5 (5-15); BUN 20 mg/dL (7-18); BUN/Creat Ratio 25.3 RATIO (10-20); Calcium,Total 8.8 mg/dL (8.5-10.1); Chloride 104 mmol/L (98-107); Cholesterol 142 mg/dL (200); Creatinine, Serum 0.79 mg/dL (0.55-1.02); EST Glomerular Filtration Rate 76 mL/min (>60); Est Glom Filt Rate - Afr Amer 91 mL/min (>60); Glucose 176 mg/dL (74-106); High Density Lipoprotein 35 mg/dL; Magnesium 2.4 mg/dL (1.6-2.6); Sodium Level 139 mmol/L (136-145); Triglycerides 240 mg/dL; Very Low Density Lipoprotein 48 mg/dL (5-40)
[2022-12-28 08:17] LABS: Absolute Lymphocyte Count 1.69 X10^3/uL (0.83-4.51); Absolute Neutrophil Count 6.2 X10^3/uL (2.0-7.7); Basophil# 0.05 X10^3/uL; Basophil% 0.6 % (0-1); Eosinophil# 0.24 X10^3/uL; Eosinophils% 2.7 % (0-5); Hematocrit 37.3 % (37-47); Hemoglobin 12.4 g/dL (12.0-15.0); Lymphocyte # 1.69 X10^3/ul (0.83-4.51); Mean Corp Hgb Conc 33.2 g/dL (32-36); Mean Corpuscular Hgb 30.1 pg (27.0-32.0); Mean Corpuscular Volume 90.5 fL (81-99); Mean Platelet Vol. 10.7 fl (6.2-12.0); Monocyte# 0.73 X10^3/uL; Monocyte% 8.2 % (0-10); NRBC Flagged by Analyzer 0 % (0-5); Neutrophil # 6.17 X10^3/uL (2.7-7.7); Neutrophil % 69.2 % (47-70); Platelet Count 191 K/mm3 (150-450); RBC Distribution Width CV 14.4 % (11.6-14.6); RBC Distribution Width SD 47.4 fl (35.1-43.9); Red Blood Count 4.12 M/mm3 (4.2-5.4); White Blood Count 8.9 K/mm3 (4.4-11.0)
[2022-12-28 09:31] LABS: Hemoglobin A1c 6.3 % (3.8-5.6)
== END ==
LOC: OLS.SW 05:00
PROVIDERS: PCP Internal Medicine; Visit Provider Internal Medicine
DX: J44.9 Chronic obstructive pulmonary disease, unspecified (principal); E11.9 Type 2 diabetes mellitus without complications; A49.8 Other bacterial infections of unspecified site; A41.9 Sepsis, unspecified organism; J96.01 Acute respiratory failure with hypoxia
CPT/HCPCS: 36415; 80048; 80061; 83036; 83735; 85025

== ENCOUNTER → 2023-01-11 | Outpatient (REF) | payer MEDICARE, MEDICAID, SELFPAY ==
[2023-01-11 15:36] LABS: Absolute Lymphocyte Count 1.31 X10^3/uL (0.83-4.51); Basophil# 0.05 X10^3/uL; Basophil% 0.7 % (0-1); Eosinophil# 0.13 X10^3/uL; Eosinophils% 1.8 % (0-5); Hematocrit 38.1 % (37-47); Hemoglobin 12.3 g/dL (12.0-15.0); Lymphocyte # 1.31 X10^3/ul (0.83-4.51); Lymphocyte % 18.3 % (19-41); Mean Corp Hgb Conc 32.3 g/dL (32-36); Mean Corpuscular Hgb 29.4 pg (27.0-32.0); Mean Corpuscular Volume 91.1 fL (81-99); Mean Platelet Vol. 9.4 fl (6.2-12.0); Monocyte% 8.4 % (0-10); NRBC Flagged by Analyzer 0 % (0-5); Neutrophil # 5.03 X10^3/uL (2.7-7.7); Neutrophil % 70.4 % (47-70); Platelet Count 130 K/mm3 (150-450); RBC Distribution Width CV 14.4 % (11.6-14.6); RBC Distribution Width SD 46.7 fl (35.1-43.9); Red Blood Count 4.18 M/mm3 (4.2-5.4); White Blood Count 7.2 K/mm3 (4.4-11.0)
[2023-01-11 15:55] LABS: Anion Gap 9 (5-15); BUN 15 mg/dL (7-18); BUN/Creat Ratio 16.7 RATIO (10-20); Calcium,Total 9.3 mg/dL (8.5-10.1); Chloride 100 mmol/L (98-107); EST Glomerular Filtration Rate 65 mL/min (>60); Est Glom Filt Rate - Afr Amer 79 mL/min (>60); Glucose 103 mg/dL (74-106); Potassium 3.6 mmol/L (3.5-5.1); Sodium Level 138 mmol/L (136-145)
== END ==
LOC: OLS.SW 14:40
PROVIDERS: PCP Internal Medicine; Visit Provider Internal Medicine
DX: R31.9 Hematuria, unspecified (principal)
CPT/HCPCS: 36415; 80048; 85025

== ENCOUNTER → 2023-01-14 | Outpatient (REF) | payer MEDICARE, MEDICAID, SELFPAY ==
[2023-01-14 09:18] LABS: Absolute Lymphocyte Count 1.44 X10^3/uL (0.83-4.51); Basophil# 0.03 X10^3/uL; Basophil% 0.5 % (0-1); Eosinophil# 0.18 X10^3/uL; Eosinophils% 2.8 % (0-5); Hemoglobin 11.2 g/dL (12.0-15.0); Lymphocyte # 1.44 X10^3/ul (0.83-4.51); Lymphocyte % 22.6 % (19-41); Mean Corp Hgb Conc 32.9 g/dL (32-36); Mean Corpuscular Hgb 29.9 pg (27.0-32.0); Mean Corpuscular Volume 90.7 fL (81-99); Mean Platelet Vol. 9.8 fl (6.2-12.0); Monocyte# 0.65 X10^3/uL; Monocyte% 10.2 % (0-10); NRBC Flagged by Analyzer 0 % (0-5); Neutrophil # 4.04 X10^3/uL (2.7-7.7); Neutrophil % 63.4 % (47-70); Platelet Count 131 K/mm3 (150-450); RBC Distribution Width CV 14.8 % (11.6-14.6); RBC Distribution Width SD 45.8 fl (35.1-43.9); Red Blood Count 3.75 M/mm3 (4.2-5.4); White Blood Count 6.4 K/mm3 (4.4-11.0)
== END ==
LOC: OLS.SW 04:00
PROVIDERS: PCP Internal Medicine; Referring Provider Internal Medicine; Visit Provider Internal Medicine
DX: A49.8 Other bacterial infections of unspecified site (principal); Z79.899 Other long term (current) drug therapy
CPT/HCPCS: 36415; 85025

== ENCOUNTER → 2023-01-21 | Outpatient (REF) | payer MEDICARE, MEDICAID, SELFPAY ==
[2023-01-21 08:59] LABS: Absolute Lymphocyte Count 1.84 X10^3/uL (0.83-4.51); Absolute Neutrophil Count 6.8 X10^3/uL (2.0-7.7); Basophil# 0.06 X10^3/uL; Basophil% 0.6 % (0-1); Eosinophil# 0.26 X10^3/uL; Eosinophils% 2.6 % (0-5); Hematocrit 35.2 % (37-47); Hemoglobin 11.6 g/dL (12.0-15.0); Lymphocyte # 1.84 X10^3/ul (0.83-4.51); Lymphocyte % 18.5 % (19-41); Mean Corpuscular Hgb 29.4 pg (27.0-32.0); Mean Corpuscular Volume 89.3 fL (81-99); Mean Platelet Vol. 10.7 fl (6.2-12.0); Monocyte# 0.89 X10^3/uL; NRBC Flagged by Analyzer 0 % (0-5); Neutrophil # 6.82 X10^3/uL (2.7-7.7); Neutrophil % 68.8 % (47-70); Platelet Count 194 K/mm3 (150-450); RBC Distribution Width CV 15.7 % (11.6-14.6); RBC Distribution Width SD 49.9 fl (35.1-43.9); Red Blood Count 3.94 M/mm3 (4.2-5.4); White Blood Count 9.9 K/mm3 (4.4-11.0)
[2023-01-21 09:18] LABS: Anion Gap 9 (5-15); BUN 15 mg/dL (7-18); BUN/Creat Ratio 16.4 RATIO (10-20); Calcium,Total 8.8 mg/dL (8.5-10.1); Chloride 102 mmol/L (98-107); Creatinine, Serum 0.92 mg/dL (0.55-1.02); EST Glomerular Filtration Rate 64 mL/min (>60); Est Glom Filt Rate - Afr Amer 77 mL/min (>60); Glucose 127 mg/dL (74-106); Magnesium 2.5 mg/dL (1.6-2.6); Potassium 4.2 mmol/L (3.5-5.1); Sodium Level 135 mmol/L (136-145)
== END ==
LOC: OLS.SW 05:00
PROVIDERS: PCP Internal Medicine; Visit Provider Internal Medicine
DX: D64.9 Anemia, unspecified (principal); E11.9 Type 2 diabetes mellitus without complications
CPT/HCPCS: 36415; 80048; 83735; 85025

== ENCOUNTER → 2023-01-24 | Outpatient (REF) | payer MEDICARE, MEDICAID, SELFPAY ==
[2023-01-24 09:15] LABS: Absolute Lymphocyte Count 0.75 X10^3/uL (0.83-4.51); Absolute Neutrophil Count 5.1 X10^3/uL (2.0-7.7); Basophil# 0.04 X10^3/uL; Basophil% 0.5 % (0-1); Eosinophil# 0.03 X10^3/uL; Eosinophils% 0.4 % (0-5); Hematocrit 32.7 % (37-47); Hemoglobin 10.8 g/dL (12.0-15.0); Lymphocyte # 0.75 X10^3/ul (0.83-4.51); Lymphocyte % 10.3 % (19-41); Mean Corpuscular Hgb 29.4 pg (27.0-32.0); Mean Corpuscular Volume 89.1 fL (81-99); Mean Platelet Vol. 10.6 fl (6.2-12.0); Monocyte% 17.9 % (0-10); NRBC Flagged by Analyzer 0 % (0-5); Neutrophil # 5.13 X10^3/uL (2.7-7.7); Neutrophil % 70.5 % (47-70); Platelet Count 181 K/mm3 (150-450); RBC Distribution Width CV 16.3 % (11.6-14.6); RBC Distribution Width SD 52.6 fl (35.1-43.9); Red Blood Count 3.67 M/mm3 (4.2-5.4); White Blood Count 7.3 K/mm3 (4.4-11.0)
[2023-01-24 09:36] LABS: Anion Gap 6 (5-15); BUN 20 mg/dL (7-18); BUN/Creat Ratio 21.5 RATIO (10-20); Calcium,Total 8.5 mg/dL (8.5-10.1); Chloride 97 mmol/L (98-107); Creatinine, Serum 0.93 mg/dL (0.55-1.02); EST Glomerular Filtration Rate 63 mL/min (>60); Est Glom Filt Rate - Afr Amer 76 mL/min (>60); Glucose 132 mg/dL (74-106); Potassium 3.4 mmol/L (3.5-5.1); Sodium Level 134 mmol/L (136-145)
== END ==
LOC: OLS.SW 05:00
PROVIDERS: PCP Internal Medicine; Visit Provider Internal Medicine
DX: E11.9 Type 2 diabetes mellitus without complications (principal); J44.9 Chronic obstructive pulmonary disease, unspecified
CPT/HCPCS: 36415; 80048; 85025

== ENCOUNTER 2023-01-26 21:54 | Inpatient (IN) | payer MEDICARE, MEDICAID, SELFPAY ==
[2023-01-26 21:55] VITALS: BP 140/64; PULSE 120; RESP 22; TEMP 37.8; O2SAT 84; BMI 39.8
[2023-01-26 21:58] VITALS: BP 140/64; PULSE 119; RESP 26; TEMP 37.8; O2SAT 86
[2023-01-26 21:59] VITALS: O2SAT 93
[2023-01-26 22:19] VITALS: TEMP 39.8
--- NOTE | 2023-01-26 22:55 | EX.ED.DYSGE1 ---
HPI History of Present Illness Chief Complaint: Alt LOC Informant: EMS and SNF Onset/Context/Timing Onset: Today Context: Gradual Onset Timing: Continuous Narrative Narrative: Patient presents with altered mental status that began this afternoon. [facility] staff reports that the patient is prone to urinary tract infections. [facility] staff noticed patient had a fever today. EMS reports the patient was complaining of abdominal pain. Patient is nonverbal and a poor informant. [facility] Medical History Acute ITP Anemia Anxiety and depression Arthritis Asthma Atrial fibrillation Back pain Benign hypertension Bilateral lower extremity edema BiPAP (biphasic positive airway pressure) dependence Cellulitis of left foot Cholelithiasis Chronic acquired lymphedema Chronic back pain Chronic kidney disease, stage 3b Chronic malnutrition Chronic pain Chronic stasis dermatitis of left lower extremity Congestive heart failure (CHF) COPD (chronic obstructive pulmonary disease) Decreased pedal pulses Depression Diabetes Diabetic ulcer of left foot Diabetic ulcer of right foot Diabetic ulcer of toe of left foot Dialysis patient DVT (deep venous thrombosis) Elephantiasis GERD (gastroesophageal reflux disease) Hammertoe of left foot Hammertoe of left foot Heartburn High cholesterol History of edema History of kidney stones History of pain when walking History of stress test HLD (hyperlipidemia) Hoarseness Hypertension Hypertensive chronic kidney disease with stage 1 through stage 4 chronic kidney disease, or unspecified chronic kidney disease Increased BMI Insulin dependent diabetes mellitus Leg cramps Localized edema MRSA infection Non-smoker Nonhealing ulcer of left lower extremity with fat layer exposed Nonhealing ulcer of right lower extremity with fat layer exposed [facility] resident Obstructive sleep apnea (adult) (pediatric) On home oxygen therapy RILEY (obstructive sleep apnea) Osteoporosis PAF (paroxysmal atrial fibrillation) Peripheral neuropathy Renal lithiasis Rheumatic fever Rheumatoid arthritis RLS (restless legs syndrome) Seasonal allergies Shortness of breath on exertion Sleep apnea Type 2 diabetes mellitus Type 2 diabetes mellitus with diabetic polyneuropathy Type 2 diabetes mellitus with diabetic polyneuropathy Ulcer of left foot with fat layer exposed Ulcer of right foot with fat layer exposed Venous insufficiency Venous stasis ulcer of right thigh with fat layer exposed Venous ulcer of left lower extremity with varicose veins Venous ulcer of right lower extremity with varicose veins Home Medications fluticasone propionate 50 mcg/actuation nasal spray,suspension 1 spray QHS allergies 02/16/14 [History Last Taken 12/22/22] acetaminophen 325 mg tablet 650 mg PO Q4H PRN Pain 09/09/21 [History Last Taken 10/08/22] bisacodyl 10 mg rectal suppository 10 mg MT DAILY PRN Constipation 09/09/21 [History Last Taken Unknown] multivitamin 1 tab PO DAILY supplement 09/09/21 [History Last Taken 12/23/22] omeprazole 40 mg capsule,delayed release 40 mg PO DAILY gerd 09/09/21 [History Last Taken 12/23/22] oxybutynin chloride 5 mg tablet 5 mg PO QHS bladder spasms 09/09/21 [History Last Taken 12/22/22] venlafaxine 75 mg capsule,extended release 24 hr 75 mg PO DAILY mental health 05/25/22 [History Last Taken 12/23/22] rivaroxaban 15 mg tablet (Xarelto) 15 mg PO DINNER 30 days #0 tabs 05/28/22 [Rx Last Taken 12/22/22] atorvastatin 10 mg tablet (Lipitor) 10 mg PO QHS cholesterol 09/09/22 [History Last Taken 12/22/22] meclizine 25 mg tablet 25 mg PO TID PRN Vertigo 09/09/22 [History Last Taken Unknown] pramipexole 0.25 mg tablet (Mirapex) 0.25 mg PO QHS restless legs 09/09/22 [History Last Taken 12/22/22] modafinil 200 mg tablet 150 mg (0.75 x 200 mg) PO DAILY 2 days #3 tabs 09/26/22 [Rx Last Taken 12/23/22] pregabalin 50 mg capsule 50 mg PO BID NEUROPATHY 10/09/22 [History Last Taken 12/23/22] fluticasone furoate 100 mcg/actuation blister powder for inhalation (Arnuity Ellipta) 1 inh inhalation QHS COPD 12/23/22 [History Last Taken 12/22/22] metformin 850 mg tablet 850 mg PO DAILY DM 12/23/22 [History Last Taken 12/23/22] methenamine hippurate 1 gram tablet 1 g PO BID UTI 12/23/22 [History Last Taken 12/23/22] triamcinolone acetonide 0.1 % topical cream 1 applic topical DAILY ITCHING 12/23/22 [History Last Taken 12/22/22] diltiazem HCl 240 mg capsule,extended release 24 hr 240 mg PO DAILY #0 caps 06/01/23 [Rx Last Taken Unknown] ferrous sulfate 325 mg (65 mg iron) tablet (iron) 325 mg PO QODAY supplement 30 days #0 tabs 12/27/22 [Rx Last Taken 12/23/22] furosemide 20 mg tablet 40 mg (2 x 20 mg) PO DAILY EDEMA 30 days #0 tabs 12/27/22 [Rx Last Taken 12/22/22] insulin lispro 100 unit/mL subcutaneous pen (Humalog KwikPen (U-100) Insulin) See Protocol subcut TIDAC #0 mL 12/27/22 [Rx Last Taken Unknown] linezolid 600 mg tablet 600 mg PO Q12H #22 tabs 12/27/22 [Rx Last Taken Unknown] sennosides 8.6 mg-docusate sodium 50 mg tablet (Stool Softener-Stimulant Laxative) 2 tab PO BID PRN PRN Constipation #0 tabs 12/27/22 [Rx Last Taken Unknown] spironolactone 25 mg tablet 25 mg PO DAILY diuretic 30 days #0 tabs 12/27/22 [Rx Last Taken 12/23/22] insulin glargine 100 unit/mL (3 mL) subcutaneous pen (Basaglar KwikPen U-100 Insulin) 6 unit subcut QHS diabetes 01/26/23 [History Last Taken Unknown] morphine 30 mg immediate release tablet 30 mg PO DAILY pain 01/26/23 [History Last Taken Unknown] Allergy/AdvReac Type Severity Reaction Status Date / Time aspirin Allergy Severe Hives Verified 01/26/23 22:00 Penicillins Allergy Severe Anaphylaxis Verified 01/26/23 22:00 Sulfa (Sulfonamide Allergy Severe Anaphylaxis Verified 01/26/23 22:00 Antibiotics) latex Allergy Rash Verified 01/26/23 22:00 Family History Mother Heart disease Cancer pancreatic Father Heart disease CVA (cerebral vascular accident) Hypertension Cancer liver, lung Surgical History History of appendectomy History of cardiac catheterization History of cholecystectomy History of ERCP History of hysterectomy Hx of dilation and curettage Hx of toe surgery S/P laparoscopic cholecystectomy Social History housing: half-way Smoking Status: Never smoker alcohol intake: never substance use type: does not use additional social history: currently residing at [facility] ROS ROS ED Review of Systems ROS Unobtainable: due to mental condition and due to mental status EXAM Physical Exam Const Vital Signs: 01/26/23 21:55 01/26/23 21:58 01/26/23 21:59 Temperature 100.0 F H 100.0 F H Temperature Source Temporal Temporal Pulse Rate 120 H 119 H Respiratory Rate 22 H 26 H Blood Pressure 140/64 H 140/64 H Blood Pressure Mean 89 89 Pulse Ox 84 86 93 Oxygen Delivery Method Room Air Room Air Nasal Cannula Oxygen Flow Rate (L/min) 2 01/26/23 22:19 01/26/23 23:12 01/26/23 23:00 Temperature 103.6 F H Temperature Source Core Pulse Rate 121 H Respiratory Rate 22 H Blood Pressure 124/68 H Blood Pressure Mean 86 Pulse Ox 95 Oxygen Delivery Method Nasal Cannula Nasal Cannula Oxygen Flow Rate (L/min) 2 2 01/26/23 22:58 01/26/23 23:00 Temperature 103.5 F H 103.4 F H Temperature Source Core Core Pulse Rate 124 H 121 H Respiratory Rate 22 H 22 H Blood Pressure 124/68 H 106/53 L Blood Pressure Mean 86 70 Pulse Ox 95 96 Oxygen Delivery Method Nasal Cannula Nasal Cannula Oxygen Flow Rate (L/min) 2 2 Positive well nourished and well developed General Appearance ED: well developed and NAD HEENT Reports dry mucous membranes Mouth ED: Yes dry mucous membranes Mouth: dry mucous membranes Neck supple and no JVD Resp Auscultation: diminished lung sounds diffuse Cardio regular rhythm Rate: tachycardic GI non-distended Palpation: soft and tender epigastric, LLQ, RLQ, LUQ, RUQ, periumbilical and suprapubic; Negative for guarding or rebound tenderness present Neuro CN's II-XII intact bilaterally and no sensory deficits noted Motor Exam: general weakness Sepsis Attestation Date exam was performed: 01/26/23 Time exam was performed: 22:50 Possible Source of Sepsis: Pulmonary, GI tract/intra-abdominal and Genitourinary Sepsis Organ Dysfunction Criteria Present: New/Unexplained change in mental status MDM MDM MDM Narrative Medical decision making narrative: Differential diagnosis includes sepsis, urinary tract infection, pneumonia, stroke, cardiac dysrhythmia, cardiac ischemia, electrolyte abnormality, and dehydration. EKG will be obtained to assess for cardiac dysrhythmia and cardiac ischemia. Chest x-ray will be obtained to assess for pneumonia. CBC will be obtained to assess for leukocytosis and anemia. Comprehensive metabolic profile will be obtained to assess for hepatic function, renal function, and electrolyte abnormality. Urinalysis will be obtained to assess for urinary tract infection. Serum lactate will be obtained to assess for sepsis. Blood cultures will be obtained to assess for sepsis. Urine cultures will be obtained to assess for urinary tract infection. Lab Data Attestation: I reviewed the patient's lab results. Lab results narrative: CBC was reviewed. Hemoglobin was 11.6 and hematocrit was 34.7. Platelets were normal. Comprehensive metabolic profile was reviewed. Sodium was 133 and potassium was 3.2. BUN was 23 and creatinine was 1.07. Total bilirubin was slightly elevated at 1.3. Serum lactate was elevated at 3.0. Urinalysis was reviewed. Leukocyte esterase was 500 with 50-100 white blood cells and 1+ bacteria. There were positive nitrites. Occult blood was 250 with 5-10 red blood cells. Labs: Laboratory Results - last 24 hr 01/26/23 01/26/23 22:11 22:57 WBC 5.8 RBC 3.95 L Hgb 11.6 L Hct 34.7 L MCV 87.8 MCH 29.4 MCHC 33.4 RDW Std Deviation 50.0 H RDW Coeff of Melissa 15.6 H Plt Count 190 MPV 10.8 Immature Gran % (Auto) 2.400 H Neut % (Auto) 86.5 H Lymph % (Auto) 6.4 L [place] % (Auto) 2.9 Eos % (Auto) 0.9 Baso % (Auto) 0.9 Absolute Neuts (auto) 5.0 Absolute Lymphs (auto) 0.37 L Nucleated RBC % 0.7 Anisocytosis 1+ PT 25.9 H INR 2.3 APTT 44.3 H Sodium 133 L Potassium 3.2 L Chloride 94 L Carbon Dioxide 29.0 Anion Gap 10 BUN 23 H Creatinine 1.07 H Estim Creat Clear Calc 40.88 Est GFR (MDRD) Af Amer 64 Est GFR (MDRD) Non-Af 53 L BUN/Creatinine Ratio 21.5 H Glucose 211 H Lactic Acid 3.0 H* Calcium 8.8 Magnesium 1.7 Total Bilirubin 1.30 H AST 16 ALT 21 Alkaline Phosphatase 159 H Troponin I High Sens 378 H* Total Protein 7.1 Albumin 2.7 L Globulin 4.4 H Albumin/Globulin Ratio 0.6 L Urine Color Yellow Urine Clarity Cloudy Urine pH 5.0 Ur Specific [place] 1.020 Urine Protein 100 H Urine Glucose (UA) Normal Urine Ketones Negative Urine Occult Blood 250 H Urine Nitrite Positive H Urine Bilirubin Negative Urine Urobilinogen 1 H Ur Leukocyte Esterase 500 H Urine RBC 5-10 SEEN Urine WBC 50-100 SEEN Ur Squamous Epith Cells 0-5 SEEN Urine Bacteria 1+ Urine Mucus 0 SEEN Radiography Chest X-Ray - ED: 1 View, Read by ED Physician, Read by Radiologist and No Acute Disease Diagnostic Testing: Clinical Impression(s) from Imaging Studies Chest X-Ray 01/26/23 23:20 IMPRESSION: Normal x-ray examination of the chest. Electronically Signed: Everett Raman MD at 23:35 EDT , Portable 1 view chest x-ray was obtained. On my independent interpretation, lung herman are clear. There is normal cardiac silhouette. Bony thorax is normal. There is no acute process noted. Radiologist also interpreted the x-ray and agrees. EKG Initial EKG: Attestation: I personally reviewed and interpreted this EKG as follows: Interpretation: No Acute Injury Pattern and Sinus Tachycardia Comments: EKG was obtained. On my independent interpretation, it showed a sinus tachycardia with a rate of 113. MT interval, QRS interval, and QTc intervals were all normal. [place] was normal. There are no acute ST or T wave changes. Prior EKG tracings: available for review Prior: Unchanged (12/23/2022) Treatment and Re-Evaluation :: Patient was given a dose of Tylenol here. Patient was given a dose of Levaquin. Patient was given IV fluids. Case was discussed with the hospitalist. She will admit the patient to PCU. Critical Care Time Critical Care Time: Yes Critical care time (excluding procedures): 30-74 minutes (36), Including time spent:, Discussing w/Patient &/or Family/Cv/Cvn Cv Tsc System Operator, Discussing w/Consultants, Arranging Admission or Transfer and Performing Direct Patient Care at Bedside Discharge Plan Dx/Rx/DC Orders Clinical Impression: Urinary tract infection, Elevated troponin, Encephalopathy, Sepsis, Acidosis, lactic Disposition Disposition: Acute Care Hospital [facility] Discharge Date/Time: 01/27/23 01:20
[2023-01-26 22:58] VITALS: BP 124/68; PULSE 124; RESP 22; TEMP 39.7; O2SAT 95
[2023-01-26 23:00] VITALS: BP 106/53; BP 124/68; PULSE 121; RESP 22; TEMP 39.7; O2SAT 95; O2SAT 96
--- NOTE | 2023-01-26 23:05 | EKG12_ITS ---
Test Reason : AMS Blood Pressure : / mmHG Vent. Rate : 113 BPM Atrial Rate : 113 BPM P-R Int : 188 ms QRS Dur : 088 ms QT Int : 304 ms P-R-T Axes : 052 036 027 degrees QTc Int : 416 ms Sinus tachycardia with Fusion complexes Low voltage QRS Borderline ECG Confirmed by CADE SNYDER, BAR ([id number]), editor dictionary AMIRA SOLITARIO ([id number]) on 01/30/2023 11:36:36 AM Referred By: Confirmed By:SHANI MOHAMUD MD
[2023-01-26 23:17] LABS: Mucous, Urine 0 SEEN /hpf (<or=2+)
--- NOTE | 2023-01-26 23:20 | RAD_ITS ---
STUDY: X-RAY CHEST REASON FOR EXAM: Female, 73 years old. Fever TECHNIQUE: Single AP portable view of the chest. COMPARISON: 12/23/2022 FINDINGS: The lungs are clear and expanded. There is no demonstrated pleural abnormality. Normal size heart. Normal mediastinum and leda. Normal visualized pulmonary arteries. Normal visualized aortic arch and descending thoracic aorta. Normal visualized thoracic spine. Normal visualized ribs, clavicles, and shoulders. There is no demonstrated abnormality of the visualized soft tissue structures of the upper abdomen. RAD/Chest 1 View (Portable) IMPRESSION: Normal x-ray examination of the chest. Electronically Signed: Everett Raman MD at 23:35 EDT ,
[2023-01-26 23:22] LABS: Color, Urine Yellow (Yellow); Glucose, Dipstick Normal (Normal); Ketone-Dipstick Negative (Negative); Leukocyte Esterase-Dipstick 500 /ul (Negative); Nitrite-Dipstick Positive (Negative); Occult Blood-Urine 250 /ul (Negative); Protein-Dipstick 100 mg/dl (Negative); Urine Bilirubin Dipstick Negative (Negative); Urine Clarity Cloudy (Clear); Urine Urobilinogen 1 mg/dl (Normal)
[2023-01-26 23:28] LABS: Red Blood Cells-Urine 5-10 SEEN /hpf (0-5); White Blood Cells 50-100 SEEN /hpf (0-5)
[2023-01-26 23:29] LABS: Bacteria 1+ /hpf (None Seen); Squamous Epithelial Cells - UA 0-5 SEEN /hpf (5-10)
[2023-01-26 23:29] LABS: International Normalized Ratio 2.3; Prothrombin Time (Protime)PT. 25.9 SECONDS (11.7-14.9)
[2023-01-26 23:31] LABS: Absolute Lymphocyte Count 0.37 X10^3/uL (0.83-4.51); Basophil# 0.05 X10^3/uL; Basophil% 0.9 % (0-1); Eosinophil# 0.05 X10^3/uL; Eosinophils% 0.9 % (0-5); Hematocrit 34.7 % (37-47); Hemoglobin 11.6 g/dL (12.0-15.0); Lymphocyte # 0.37 X10^3/ul (0.83-4.51); Lymphocyte % 6.4 % (19-41); Mean Corp Hgb Conc 33.4 g/dL (32-36); Mean Corpuscular Hgb 29.4 pg (27.0-32.0); Mean Corpuscular Volume 87.8 fL (81-99); Mean Platelet Vol. 10.8 fl (6.2-12.0); Monocyte# 0.17 X10^3/uL; Monocyte% 2.9 % (0-10); NRBC Flagged by Analyzer 0.7 % (0-5); Neutrophil # 5.01 X10^3/uL (2.7-7.7); Neutrophil % 86.5 % (47-70); POSITIVE DIFFERENTIAL YES; POSITIVE MORPHOLOGY YES; Partial Thromboplast Time 44.3 Seconds (24.1-36.2); Platelet Count 190 K/mm3 (150-450); RBC Distribution Width CV 15.6 % (11.6-14.6); Red Blood Count 3.95 M/mm3 (4.2-5.4); White Blood Count 5.8 K/mm3 (4.4-11.0)
[2023-01-26 23:33] LABS: Differential Indicated SCAN CRITERIA MET
[2023-01-26 23:44] LABS: ALB/GLOB Ratio 0.6 RATIO (0.9-2.4); AST(SGOT) 16 U/L (15-37); Alanine Aminotransfer ALT/SGPT 21 U/L (13-56); Albumin, Serum 2.7 g/dL (3.2-5.0); Alkaline Phosphatase 159 U/L (45-117); Anion Gap 10 (5-15); BUN 23 mg/dL (7-18); BUN/Creat Ratio 21.5 RATIO (10-20); Calcium,Total 8.8 mg/dL (8.5-10.1); Chloride 94 mmol/L (98-107); Creatinine, Serum 1.07 mg/dL (0.55-1.02); EST Glomerular Filtration Rate 53 mL/min (>60); Est Glom Filt Rate - Afr Amer 64 mL/min (>60); Estimated Creatinine Clearance 40.88 ml/min; Globulin 4.4 g/dL (2.2-4.2); Glucose 211 mg/dL (74-106); Potassium 3.2 mmol/L (3.5-5.1); Protein, Total 7.1 g/dL (6.4-8.2); Sodium Level 133 mmol/L (136-145); Troponin-I HS 378 pg/mL (3.0-54.0)
[2023-01-26] MEDS: Acetaminophen 650 MG Suppository RC (23:44)
--- NOTE | 2023-01-26 23:58 | PCM.HP.STD ---
HPI - General General Date of Admission: 01/26/23 Date of Service: 01/26/23 Chief Complaint: Increased confusion, fevers at SNF. 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, Chronic BL LE Lymphedema, Chronic pain syndrome, Obesity, Chronic normocytic anemia, PAF, Asthma/COPD, HTN, HLD, RILEY on BIPAP, Anxiety and Depression, CKD stage IIIb, Hx VTE (DVT), GERD, Diabetes mellitus type II with history of diabetic ulcers/foot wounds, RLS, recent 12/27/22 discharge following treatment for Acute Sepsis secondary to Acute ESBL UTI, LLE cellulitis as well as MRSA bacteremia discharged on oral linezolid per ID who now re-presents to the [facility] ED on 01/26/23 with history of altered mental status starting in the afternoon at her skilled facility with onset of fever and generalized abdominal discomfort prompting facility to bring her to the ED for evaluation. In the emergency room the patient was initially noted to be nonverbal and was a poor informant. She did have recent ECHO secondary to MRSA bacteremia w/ no evidence of any mass or vegetation, normal LV size, normal LV systolic function, EF 60%, negative bubble contrast study, prominent eustachian valve, mild MVI.Work-up in the ED included initially T1 100 with a Tmax 103.6, heart rate initially 120, BP 140/64, respiratory rate 22, initially 84% on room air with improvement to 95% on 2 L nasal cannula, CBC with WC 5.8, hemoglobin 11.6, MCV 87.8, platelet 198 with increased immature granulocytes and lymphopenia, coags with PT 25.9, INR 2.3, PTT 44.3, CMP with sodium 133, potassium 3.2, chloride 94, BUN/creatinine 23/1.07, glucose 211, lactic acid 3.0, T. bili 1.30, alk phos 159, troponin 378, urinalysis with cloudy appearing urine, specific gravity 1.020, protein 100, occult blood 250, urine nitrite positive, leukocyte Estrace 500 with 5-10 urine RBC, 50-100 urine WBCs with 1+ urine bacteria, blood culture x2 pending per ED, urine culture pending per ED, chest x-ray with no acute cardiopulmonary findings. In the ED patient ministered Levaquin as well as Tylenol 650 mg rectally x1 as well as IVFs. In the ED conte catheter placed. ON LICENSE OF [facility] Medical History Acute ITP Anemia Anxiety and depression Arthritis Asthma Atrial fibrillation Back pain Benign hypertension Bilateral lower extremity edema BiPAP (biphasic positive airway pressure) dependence Cellulitis of left foot Cholelithiasis Chronic acquired lymphedema Chronic back pain Chronic kidney disease, stage 3b Chronic malnutrition Chronic pain Chronic stasis dermatitis of left lower extremity Congestive heart failure (CHF) COPD (chronic obstructive pulmonary disease) Decreased pedal pulses Depression Diabetes Diabetic ulcer of left foot Diabetic ulcer of right foot Diabetic ulcer of toe of left foot Dialysis patient DVT (deep venous thrombosis) Elephantiasis GERD (gastroesophageal reflux disease) Hammertoe of left foot Hammertoe of left foot Heartburn High cholesterol History of edema History of kidney stones History of pain when walking History of stress test HLD (hyperlipidemia) Hoarseness Hypertension Hypertensive chronic kidney disease with stage 1 through stage 4 chronic kidney disease, or unspecified chronic kidney disease Increased BMI Insulin dependent diabetes mellitus Leg cramps Localized edema MRSA infection Non-smoker Nonhealing ulcer of left lower extremity with fat layer exposed Nonhealing ulcer of right lower extremity with fat layer exposed residential resident Obstructive sleep apnea (adult) (pediatric) On home oxygen therapy RILEY (obstructive sleep apnea) Osteoporosis PAF (paroxysmal atrial fibrillation) Peripheral neuropathy Renal lithiasis Rheumatic fever Rheumatoid arthritis RLS (restless legs syndrome) Seasonal allergies Shortness of breath on exertion Sleep apnea Type 2 diabetes mellitus Type 2 diabetes mellitus with diabetic polyneuropathy Type 2 diabetes mellitus with diabetic polyneuropathy Ulcer of left foot with fat layer exposed Ulcer of right foot with fat layer exposed Venous insufficiency Venous stasis ulcer of right thigh with fat layer exposed Venous ulcer of left lower extremity with varicose veins Venous ulcer of right lower extremity with varicose veins Home Medications fluticasone propionate 50 mcg/actuation nasal spray,suspension 1 spray QHS allergies 02/16/14 [History Last Taken 12/22/22] acetaminophen 325 mg tablet 650 mg PO Q4H PRN Pain 09/09/21 [History Last Taken 10/08/22] bisacodyl 10 mg rectal suppository 10 mg CA DAILY PRN Constipation 09/09/21 [History Last Taken Unknown] multivitamin 1 tab PO DAILY supplement 09/09/21 [History Last Taken 12/23/22] omeprazole 40 mg capsule,delayed release 40 mg PO DAILY gerd 09/09/21 [History Last Taken 12/23/22] oxybutynin chloride 5 mg tablet 5 mg PO QHS bladder spasms 09/09/21 [History Last Taken 12/22/22] venlafaxine 75 mg capsule,extended release 24 hr 75 mg PO DAILY mental health 05/25/22 [History Last Taken 12/23/22] rivaroxaban 15 mg tablet (Xarelto) 15 mg PO DINNER 30 days #0 tabs 05/28/22 [Rx Last Taken 12/22/22] atorvastatin 10 mg tablet (Lipitor) 10 mg PO QHS cholesterol 09/09/22 [History Last Taken 12/22/22] meclizine 25 mg tablet 25 mg PO TID PRN Vertigo 09/09/22 [History Last Taken Unknown] pramipexole 0.25 mg tablet (Mirapex) 0.25 mg PO QHS restless legs 09/09/22 [History Last Taken 12/22/22] modafinil 200 mg tablet 150 mg (0.75 x 200 mg) PO DAILY 2 days #3 tabs 09/26/22 [Rx Last Taken 12/23/22] pregabalin 50 mg capsule 50 mg PO BID NEUROPATHY 10/09/22 [History Last Taken 12/23/22] fluticasone furoate 100 mcg/actuation blister powder for inhalation (Arnuity Ellipta) 1 inh inhalation QHS COPD 12/23/22 [History Last Taken 12/22/22] metformin 850 mg tablet 850 mg PO DAILY DM 12/23/22 [History Last Taken 12/23/22] methenamine hippurate 1 gram tablet 1 g PO BID UTI 12/23/22 [History Last Taken 12/23/22] triamcinolone acetonide 0.1 % topical cream 1 applic topical DAILY ITCHING 12/23/22 [History Last Taken 12/22/22] diltiazem HCl 240 mg capsule,extended release 24 hr 240 mg PO DAILY #0 caps 12/27/22 [Rx Last Taken Unknown] ferrous sulfate 325 mg (65 mg iron) tablet (iron) 325 mg PO QODAY supplement 30 days #0 tabs 12/27/22 [Rx Last Taken 12/23/22] furosemide 20 mg tablet 40 mg (2 x 20 mg) PO DAILY EDEMA 30 days #0 tabs 12/27/22 [Rx Last Taken 12/22/22] insulin lispro 100 unit/mL subcutaneous pen (Humalog KwikPen (U-100) Insulin) See Protocol subcut TIDAC #0 mL 12/27/22 [Rx Last Taken Unknown] linezolid 600 mg tablet 600 mg PO Q12H #22 tabs 12/27/22 [Rx Last Taken Unknown] sennosides 8.6 mg-docusate sodium 50 mg tablet (Stool Softener-Stimulant Laxative) 2 tab PO BID PRN PRN Constipation #0 tabs 12/27/22 [Rx Last Taken Unknown] spironolactone 25 mg tablet 25 mg PO DAILY diuretic 30 days #0 tabs 12/27/22 [Rx Last Taken 12/23/22] insulin glargine 100 unit/mL (3 mL) subcutaneous pen (Basaglar KwikPen U-100 Insulin) 6 unit subcut QHS diabetes 01/26/23 [History Last Taken Unknown] morphine 30 mg immediate release tablet 30 mg PO DAILY pain 01/26/23 [History Last Taken Unknown] Allergy/AdvReac Type Severity Reaction Status Date / Time aspirin Allergy Severe Hives Verified 01/26/23 22:00 Penicillins Allergy Severe Anaphylaxis Verified 01/26/23 22:00 Sulfa (Sulfonamide Allergy Severe Anaphylaxis Verified 01/26/23 22:00 Antibiotics) latex Allergy Rash Verified 01/26/23 22:00 Family History Mother Heart disease Cancer pancreatic Father Heart disease CVA (cerebral vascular accident) Hypertension Cancer liver, lung Surgical History History of appendectomy History of cardiac catheterization History of cholecystectomy History of ERCP History of hysterectomy Hx of dilation and curettage Hx of toe surgery S/P laparoscopic cholecystectomy Social History housing: correction Smoking Status: Never smoker alcohol intake: never substance use type: does not use additional social history: currently residing at [facility] ROS Review of Systems ROS Unobtainable: due to encephalopathy Vital Signs Vital Signs Vital Signs: 01/26/23 21:55 01/26/23 21:58 01/26/23 21:59 Temperature 100.0 F H 100.0 F H Temperature Source Temporal Temporal Pulse Rate 120 H 119 H Respiratory Rate 22 H 26 H Blood Pressure 140/64 H 140/64 H Blood Pressure Mean 89 89 Pulse Ox 84 86 93 Oxygen Delivery Method Room Air Room Air Nasal Cannula Oxygen Flow Rate (L/min) 2 01/26/23 22:19 01/26/23 23:12 01/26/23 23:00 Temperature 103.6 F H Temperature Source Core Pulse Rate 121 H Respiratory Rate 22 H Blood Pressure 124/68 H Blood Pressure Mean 86 Pulse Ox 95 Oxygen Delivery Method Nasal Cannula Nasal Cannula Oxygen Flow Rate (L/min) 2 2 01/26/23 22:58 01/26/23 23:00 Temperature 103.5 F H 103.4 F H Temperature Source Core Core Pulse Rate 124 H 121 H Respiratory Rate 22 H 22 H Blood Pressure 124/68 H 106/53 L Blood Pressure Mean 86 70 Pulse Ox 95 96 Oxygen Delivery Method Nasal Cannula Nasal Cannula Oxygen Flow Rate (L/min) 2 2 Weight Weight: 239 lb 6.752 oz Body Mass Index (BMI) 39.8 Physical Exam Narrative Physical Examination: General: Awakens to stimuli, not alert, lethargic, oriented to self, prior intermittently agitated, laying in the ED bed, ill appearing. Skin: Normal color, normal turgor, no icterus, no cyanosis except significant bilateral lower extremity chronic venous skin changes/stasis as well as abrasions. HEENT: AT/NC, EOM difficult to assess given lethargy, PERRLA, severely dry MM, no carotid bruits or JVD noted. Lungs: Diffusely diminished, greater bases, no evidence of any distress, no rales, ronchi or wheezing. Heart: Mildly tachycardic with regular rhythm; no gallop, rub audible. Abdomen: Soft, morbidly obese, NTTP, no obvious distention but habitus makes exam difficult, distant hyperactive bowel sounds, no obvious HSM. Extremities: No cyanosis, clubbing, or marked pitting edema, BL LE chronic venous stasis skin changes, see skin. Neurological: Awakens to stimuli, not alert, lethargic, oriented to self, prior intermittently agitated, laying in the ED bed, ill appearing, cognitive function not baseline intact; pupils equally reactive to light and accommodation, cranial nerves grossly normal but difficult assessment given lethargy, moving all 4 extremities, no focal deficits, strength severely globally decreased. Psychiatric: Affect appears flat, fatigued, lethargic currently, had prior per staff been agitated also, no acute evidence of depressive or anxiety feelings but does have underlying history. Results Lab / Micro Data 01/26/23 22:11 01/26/23 22:11 Labs: Laboratory Results - last 24 hr 01/26/23 22:11: WBC 5.8, RBC 3.95 L, Hgb 11.6 L, Hct 34.7 L, MCV 87.8, MCH 29.4, MCHC 33.4, RDW Std Deviation 50.0 H, RDW Coeff of Melissa 15.6 H, Plt Count 190, MPV 10.8, Immature Gran % (Auto) 2.400 H, Neut % (Auto) 86.5 H, Lymph % (Auto) 6.4 L, [place] % (Auto) 2.9, Eos % (Auto) 0.9, Baso % (Auto) 0.9, Absolute Neuts (auto) 5.0, Absolute Lymphs (auto) 0.37 L, Nucleated RBC % 0.7, PT 25.9 H, INR 2.3, APTT 44.3 H, Sodium 133 L, Potassium 3.2 L, Chloride 94 L, Carbon Dioxide 29.0, Anion Gap 10, BUN 23 H, Creatinine 1.07 H, Estim Creat Clear Calc 40.88, Est GFR (MDRD) Af Amer 64, Est GFR (MDRD) Non-Af 53 L, BUN/Creatinine Ratio 21.5 H, Glucose 211 H, Lactic Acid 3.0 H*, Calcium 8.8, Total Bilirubin 1.30 H, AST 16, ALT 21, Alkaline Phosphatase 159 H, Troponin I High Sens 378 H*, Total Protein 7.1, Albumin 2.7 L, Globulin 4.4 H, Albumin/Globulin Ratio 0.6 L 01/26/23 22:57: Urine Color Yellow, Urine Clarity Cloudy, Urine pH 5.0, Ur Specific [place] 1.020, Urine Protein 100 H, Urine Glucose (UA) Normal, Urine Ketones Negative, Urine Occult Blood 250 H, Urine Nitrite Positive H, Urine Bilirubin Negative, Urine Urobilinogen 1 H, Ur Leukocyte Esterase 500 H, Urine RBC 5-10 SEEN, Urine WBC 50-100 SEEN, Ur Squamous Epith Cells 0-5 SEEN, Urine Bacteria 1+, Urine Mucus 0 SEEN Radiology Impression Chest X-Ray 01/26/23 23:20 IMPRESSION: Normal x-ray examination of the chest. 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, Chronic BL LE Lymphedema, Chronic pain syndrome, Obesity, Chronic normocytic anemia, PAF, Asthma/COPD, HTN, HLD, RILEY on BIPAP, Anxiety and Depression, CKD stage IIIb, Hx VTE (DVT), GERD, Diabetes mellitus type II with history of diabetic ulcers/foot wounds, RLS, recent 12/27/22 discharge following treatment for Acute Sepsis secondary to Acute ESBL UTI, LLE cellulitis as well as MRSA bacteremia discharged on oral linezolid per ID who now re-presents to the [facility] ED on 01/26/23 with history of altered mental status starting in the afternoon at her skilled facility with onset of fever and generalized abdominal discomfort prompting facility to bring her to the ED for evaluation. #1. Acute Sepsis secondary to Acute Encephalopathy secondary to Acute Urinary Tract Infection w/ ESBL History and MRSA recent bacteremia (tachycardic, febrile, source evident with encephalopathy and lactic acidosis): Will admit to PCU, UA upon ED evaluation remarkable, pending UCx, continue IVFs, monitor I/Os, trend LA per facility protocol, continue IV Rocephin and Vancomycin based on recent UCx and also she had recent concurrent MRSA bacteremia to be cautious pending cultures w/ transition as able pending sensitivities and speciation, request again ID involvement, continue conte catheter, PT/OT/CM consultation for discharge planning. Procalcitonin requested. Bld cx x 2 obtained in the ED. #2. Hypokalemia: Admission K+ 3.2, magnesium level requested, supplementation given, repeat level in AM. #3. Chronic Kidney Disease Stage IIIb: Admission BUN/Cr 20/08. baseline renal function 0.7-0.9 primarily, repeat BMP in AM. #4. Diabetes mellitus type II with chronic neuropathy: Hold oral home regimen, continue home insulin regimen, ADA diet, accu checks w/ ISS, continue patient home Lyrica regimen. #5. Anxiety and depression: We will continue patient home venlafaxine regimen. #6. Hypertension: Continue home regimen including spironolactone, metolazone, Lasix, diltiazem with parameters as needed, PRN hydralazine. #7. Hyperlipidemia: We will continue patient home statin therapy. #8. Chronic anemia/iron deficiency anemia: Admission hemoglobin 11.6, baseline 10-11, stable, continue iron supplementation, continue to trend. #9. Chronic COPD/Asthma with chronic hypoxic respiratory failure (2L NC): Will maintain on home oxygen supplementation, continue ATC budesonide therapy, PRN albuterol, HOB, IS parameters. #10. PAF: Will continue home xarelto and diltiazem regimen. #11. Chronic back pain: We will continue patient chronic pain regimen to avoid withdrawal however low threshold to hold if sedated or lethargic. #12. Restless leg syndrome: We will continue patient home Requip regimen. #13. GERD: We will continue patient on PPI. #14. History of VTE: Patient with history of DVT, continue patient home Xarelto regimen. #15. Narcolepsy: Will continue patient chronic mode of modafinil regimen. #16. Chronic bilateral lower extremity lymphedema: No marked edema on evaluation, notable stasis disease however. If needed may add LEBRON wraps and elevation. #17. Morbid Obesity: Weight loss and lifestyle changes encouraged. #18. RILEY: BIPAP q HS. #19. DVT prophylaxis: Continue home Eliquis regimen however monitor platelet count given history of drug-induced ITP. #20. CODE STATUS: Full Code per SNF paperwork. Daughter is HCPOA. Admission Evaluation Time spent evaluating chart, patient history, patient evaluation, care planning and discussion with specialists: 75 minutes. Charges/Coding Visit Charges Inpatient E&M: 23308 Init Hosp L3
[2023-01-27] VITALS (16 sets, daily range): BP systolic 88–117; BP diastolic 50–73; PULSE 70–102; RESP 12–21; TEMP 35.9–38.8; O2SAT 94–99; BMI 39.9; BMI 40.5
[2023-01-27 00:07] LABS: Anisocytosis 1+
[2023-01-27] MEDS: 0.9% Normal Saline 1,000 ML 1000 ML IV (00:21)
[2023-01-27] MEDS: levoFLOXacin IV 750 MG/150 ML BAG 100 MG IV (00:21)
--- NOTE | 2023-01-27 00:30 | ED.RN ---
Pt daughter called in requesting update. Updated on pt condition and that pt is being admitter. daughter stating [place] and does not get good service so if she is called will call back when she is able. will call in the AM to check on pt.
[2023-01-27 00:52] LABS: Magnesium 1.7 mg/dL (1.6-2.6)
[2023-01-27 00:59] LABS: Procalcitonin 3.41 ng/mL (0.00-0.09)
--- NOTE | 2023-01-27 01:15 | ED.RN ---
Dr. Perez and Dr. Gasca updated on BP's. Per Dr. Gasca she will be putting in orders for the floor.
[2023-01-27] MEDS: 0.9% Normal Saline 1,000 ML 999 ML IV (02:15)
[2023-01-27 03:16] LABS: Reflex Lactate? Y
[2023-01-27 03:21] LABS: Bedside Glucose 188 mg/dL (74-106)
[2023-01-27] MEDS: Potassium Chloride 10mEq/100mL 10 MEQ/100 ML IV.SOLN. 100 MEQ IV BOLUS ×6 (03:45→14:16)
[2023-01-27 03:55] LABS: Absolute Lymphocyte Count 0.52 X10^3/uL (0.83-4.51); Absolute Neutrophil Count 11.3 X10^3/uL (2.0-7.7); Basophil# 0.04 X10^3/uL; Basophil% 0.3 % (0-1); Eosinophil# 0.01 X10^3/uL; Eosinophils% 0.1 % (0-5); Hematocrit 31.2 % (37-47); Hemoglobin 10.2 g/dL (12.0-15.0); Lymphocyte # 0.52 X10^3/ul (0.83-4.51); Lymphocyte % 4.1 % (19-41); Mean Corp Hgb Conc 32.7 g/dL (32-36); Mean Corpuscular Hgb 29.1 pg (27.0-32.0); Mean Corpuscular Volume 88.9 fL (81-99); Mean Platelet Vol. 9.8 fl (6.2-12.0); Monocyte# 0.88 X10^3/uL; Monocyte% 6.9 % (0-10); NRBC Flagged by Analyzer 0 % (0-5); Neutrophil # 11.27 X10^3/uL (2.7-7.7); Neutrophil % 88.2 % (47-70); POSITIVE DIFFERENTIAL YES; Platelet Count 166 K/mm3 (150-450); RBC Distribution Width CV 15.8 % (11.6-14.6); RBC Distribution Width SD 50.8 fl (35.1-43.9); Red Blood Count 3.51 M/mm3 (4.2-5.4); White Blood Count 12.8 K/mm3 (4.4-11.0)
[2023-01-27 03:59] LABS: Differential Indicated SCAN CRITERIA MET
[2023-01-27 04:18] LABS: ALB/GLOB Ratio 0.6 RATIO (0.9-2.4); AST(SGOT) 22 U/L (15-37); Alanine Aminotransfer ALT/SGPT 20 U/L (13-56); Albumin, Serum 2.2 g/dL (3.2-5.0); Alkaline Phosphatase 142 U/L (45-117); Anion Gap 7 (5-15); BUN 19 mg/dL (7-18); BUN/Creat Ratio 22.2 RATIO (10-20); Calcium,Total 8.1 mg/dL (8.5-10.1); Chloride 101 mmol/L (98-107); Creatinine, Serum 0.86 mg/dL (0.55-1.02); EST Glomerular Filtration Rate 69 mL/min (>60); Est Glom Filt Rate - Afr Amer 83 mL/min (>60); Estimated Creatinine Clearance 50.86 ml/min; Glucose 201 mg/dL (74-106); Potassium 3.1 mmol/L (3.5-5.1); Protein, Total 6.2 g/dL (6.4-8.2); Sodium Level 137 mmol/L (136-145)
--- NOTE | 2023-01-27 04:25 | PCM.RX.CS ---
Consult Antibiotic Management Pharmacy has been consulted to manage selected antiobiotic: Vancomycin Type of Intervention Type of Consult: New start Suspected Infection Suspected Infection: Sepsis Labs Labs: Sodium 137 mmol/L (136-145) 01/27/23 03:45 Potassium 3.1 mmol/L (3.5-5.1) L 01/27/23 03:45 Chloride 101 mmol/L (98-107) 01/27/23 03:45 Carbon Dioxide 29.0 mmol/L (21.0-32.0) 01/27/23 03:45 Anion Gap 7 (5-15) 01/27/23 03:45 BUN 19 mg/dL (7-18) H 01/27/23 03:45 Creatinine 0.86 mg/dL (0.55-1.02) 01/27/23 03:45 Est GFR (MDRD) Af Amer 83 mL/min (>60) 01/27/23 03:45 Est GFR (MDRD) Non-Af 69 mL/min (>60) 01/27/23 03:45 BUN/Creatinine Ratio 22.2 RATIO (10-20) H 01/27/23 03:45 Glucose 201 mg/dL (74-106) H 01/27/23 03:45 Goal Trough Goal Trough: 15-20 mcg/mL Pharmacy Plan for Drug Dosing Pharmacy Plan for Drug Dosing: NEW IV VANCOMYCIN Consulting Physician: Dr. Gasca Indication: Sepsis 2/2 UTI, R/O bacteremia Goal Trough: 15-20 SrCr:0.86 CrCl: 58 mL/min (using AdjBW 77.7kg) Comments: Loading dose of 2000mg IV x1 ordered and administered 01/27/23 @0258 Vancomycin Dose: 1000 mg IV Q12hr to start 01/27/23 @1500 Pending Level: 01/28/23 @1430, prior to 4th total dose per protocol Pharmacy Service will continue to monitor and adjust dosing as required.
[2023-01-27 04:27] LABS: Lactic Acid 1.1 mmol/L (0.4-1.9)
[2023-01-27] MEDS: Ceftriaxone 1 GM/50 ML BAG IV ×2 (04:28→21:39)
[2023-01-27 05:47] LABS: Anisocytosis 1+
[2023-01-27] MEDS: Budesonide Respules 0.5 MG/2 ML AMPUL.NEB. INHALATION ×2 (06:53→20:03)
--- NOTE | 2023-01-27 08:32 | PCM.PN.HOSP ---
Reason for Visit Reason for Visit: Diagnoses Sepsis, unspecified organism (01/26/23) Subjective Subjective Feels better. Objective Data Objective Data Vital Signs: Vital Signs Temp Pulse Resp BP Pulse Ox O2 Del Method O2 Flow Rate 36.1 C L 71 21 H 96/60 98 Bi-pap 2 01/27/23 03:46 01/27/23 06:55 01/27/23 06:55 01/27/23 03:46 01/27/23 06:55 01/27/23 06:55 01/27/23 02:31 FiO2 35 01/27/23 06:55 Oxygen Flow Rate (L/min) 2 Oxygen Delivery Method Bi-pap Weight: 110.4 kg Body Mass Index (BMI) 40.5 Intake & Output: Intake and Output for Last 24 Hours 01/25/23 01/26/23 01/27/23 23:59 23:59 23:59 Intake Total 2855.72 / 2855.72 Output Total 200 / 200 Balance 2655.72 / 2655.72 Lab / Micro Data 01/27/23 03:45 01/27/23 03:45 Labs: Laboratory Results - last 24 hr 01/26/23 22:11: WBC 5.8, RBC 3.95 L, Hgb 11.6 L, Hct 34.7 L, MCV 87.8, MCH 29.4, MCHC 33.4, RDW Std Deviation 50.0 H, RDW Coeff of [place] 15.6 H, Plt Count 190, MPV 10.8, Immature Gran % (Auto) 2.400 H, Neut % (Auto) 86.5 H, Lymph % (Auto) 6.4 L, [place] % (Auto) 2.9, Eos % (Auto) 0.9, Baso % (Auto) 0.9, Absolute Neuts (auto) 5.0, Absolute Lymphs (auto) 0.37 L, Nucleated RBC % 0.7, Anisocytosis 1+, PT 25.9 H, INR 2.3, APTT 44.3 H, Sodium 133 L, Potassium 3.2 L, Chloride 94 L, Carbon Dioxide 29.0, Anion Gap 10, BUN 23 H, Creatinine 1.07 H, Estim Creat Clear Calc 40.88, Est GFR (MDRD) Af Amer 64, Est GFR (MDRD) Non-Af 53 L, BUN/Creatinine Ratio 21.5 H, Glucose 211 H, Lactic Acid 3.0 H*, Calcium 8.8, Magnesium 1.7, Total Bilirubin 1.30 H, AST 16, ALT 21, Alkaline Phosphatase 159 H, Troponin I High Sens 378 H*, Total Protein 7.1, Albumin 2.7 L, Globulin 4.4 H, Albumin/Globulin Ratio 0.6 L 01/26/23 22:57: Urine Color Yellow, Urine Clarity Cloudy, Urine pH 5.0, Ur Specific [place] 1.020, Urine Protein 100 H, Urine Glucose (UA) Normal, Urine Ketones Negative, Urine Occult Blood 250 H, Urine Nitrite Positive H, Urine Bilirubin Negative, Urine Urobilinogen 1 H, Ur Leukocyte Esterase 500 H, Urine RBC 5-10 SEEN, Urine WBC 50-100 SEEN, Ur Squamous Epith Cells 0-5 SEEN, Urine Bacteria 1+, Urine Mucus 0 SEEN 01/27/23 00:27: Procalcitonin 3.41 H 01/27/23 02:40: POC Glucose 188 H 01/27/23 03:45: WBC 12.8 H, RBC 3.51 L, Hgb 10.2 L, Hct 31.2 L, MCV 88.9, MCH 29.1, MCHC 32.7, RDW Std Deviation 50.8 H, RDW Coeff of [place] 15.8 H, Plt Count 166, MPV 9.8, Immature Gran % (Auto) 0.400, Neut % (Auto) 88.2 H, Lymph % (Auto) 4.1 L, [place] % (Auto) 6.9, Eos % (Auto) 0.1, Baso % (Auto) 0.3, Absolute Neuts (auto) 11.3 H, Absolute Lymphs (auto) 0.52 L, Nucleated RBC % 0, Anisocytosis 1+, Sodium 137, Potassium 3.1 L, Chloride 101, Carbon Dioxide 29.0, Anion Gap 7, BUN 19 H, Creatinine 0.86, Estim Creat Clear Calc 50.86, Est GFR (MDRD) Af Amer 83, Est GFR (MDRD) Non-Af 69, BUN/Creatinine Ratio 22.2 H, Glucose 201 H, Lactic Acid 1.1, Calcium 8.1 L, Total Bilirubin 1.20 H, AST 22, ALT 20, Alkaline Phosphatase 142 H, Total Protein 6.2 L, Albumin 2.2 L, Globulin 4.0, Albumin/Globulin Ratio 0.6 L Radiography Diagnostic Testing: Radiology Impression Chest X-Ray 01/26/23 23:20 IMPRESSION: Normal x-ray examination of the chest. Electronically Signed: Everett Raman MD at 23:35 EDT , Physical Exam Const alert and no apparent distress HEENT head/scalp atraumatic and moist oral mucous membranes Resp normal respiratory effort, no retractions, no use of accessory muscles and clear to auscultation bilaterally Cardio regular rate, regular rhythm, S1 normal heart sound and S2 normal heart sound GI normal to inspection, nondistended, normoactive bowel sounds, soft to palpation, non-tender and non-distended Extremity normal to inspection and full ROM Neuro moves all extremities Psych affect normal Assessment & Plan Assessment/Plan (1) Sepsis: QUALIFIERS: Sepsis acute organ dysfunction status: with acute organ dysfunction Sepsis type: Escherichia coli Severe sepsis acute organ dysfunction type: encephalopathy Severe sepsis shock status: without septic shock Qualified Code(s): A41.51 - Sepsis due to Escherichia coli [E. coli]; R65.20 - Severe sepsis without septic shock; G93.41 - Metabolic encephalopathy PLAN: POA qSOFA 2 (encephalopathy and SBP <100) 2/2 UTI On CTX for UTI (previously had E. coli sensitive to CTX) On Vanc given h/o MRSA bacteremia Hold off on ID consult for now. Follow up blood and urine cultures (2) Urinary tract infection: QUALIFIERS: Hematuria presence: without hematuria Urinary tract infection type: acute cystitis Qualified Code(s): N30.00 - Acute cystitis without hematuria PLAN: on CTX follow up UCx. hold methenamine while being treated for UTI (apparently not working that well anyway) (3) Encephalopathy: PLAN: resolved suspect metabolic given sepsis and UTI avoid potentiating medication: pt continued on morphine, but was only ordered 2 days from last admission. I personally reviewed her OARRS and I see no narcs filled since March 2022. DC morphine. (4) Hypokalemia: PLAN: continue to replace Mg 1.7, replace monitor (5) NSTEMI, initial episode of care: PLAN: Suspecte Type II, demand ischemia Checked in ED 378, subsequent was 192 Echo from 12/24/22 showed an EF of 60%. Already anticoagulated rivaroxaban Cardiology consulted, no plans for intervention at this time. PLAN: Plan Chronic complicating conditions: Chronic Kidney Disease Stage IIIb: stable Diabetes mellitus type II with chronic neuropathy: metformin held. Continue glargine and SSI. Anxiety and depression: continue venlafaxine Hypertension: Continue spironolactone, metolazone, Lasix, diltiazem with parameters as needed, PRN hydralazine. Hyperlipidemia: continue statin Chronic anemia/iron deficiency anemia: stable Chronic COPD/Asthma with chronic hypoxic respiratory failure (2L NC): Will maintain on home oxygen supplementation, continue ATC budesonide therapy, PRN albuterol, HOB, IS parameters. PAF: continue xarelto and diltiazem Chronic back pain: non narcotics given encephalopathy. Hold pregabalin.#12. Restless leg syndrome: hold Mirapex given encephalopathy GERD: continue PPI. History of VTE: Patient with history of DVT, continue xarelto Narcolepsy: hold modafanil for now Chronic bilateral lower extremity lymphedema: No marked edema on evaluation, notable stasis disease however. If needed may add LEBRON wraps and elevation. Morbid Obesity: BMI 40.5 kg/m? RILEY: BIPAP q HS. DVT prophylaxis: Not indicated as patient is already anticoagulated on rivaroxaban. CODE STATUS: Full Code Charges/Coding Visit Charges Inpatient E&M: 52847 Subs Hosp L3
[2023-01-27] MEDS: Menthol/Lanolin/Calamine/Znox 113 GM Tube 1 APPLIC TOPICAL ×4 (09:42→21:42)
[2023-01-27 09:51] LABS: Troponin-I HS 1923 pg/mL (3.0-54.0)
[2023-01-27] MEDS: 0.9% Saline Lock 10 ML Syringe IV (10:07)
--- NOTE | 2023-01-27 12:05 | PCM.CONS.C ---
Assessment & Plan Assessment/Plan (1) Elevated troponin: PLAN: She does have an elevated troponin. I suspect the above is likely secondary to demand ischemia. I would not make any changes at this particular time. She will continue with anticoagulation for now. We may repeat a limited echocardiogram to assess her ventricular function and depending on those findings further recommendations will be made. Thank you for allowing me to participate in the care of your patient. Please don't hesitate to call if any issues arise. (2) Benign hypertension: PLAN: She does have a history of hypertension. The plan will be to continue the current medical therapy without us making any changes. She will remain on the diltiazem. (3) Atrial fibrillation: PLAN: She does have a history of atrial fibrillation. She is on diltiazem and she will remain on anticoagulation for stroke prevention. Thank you for allowing me to participate in the care of your patient. Please don't hesitate to call if any issues arise. HPI Consult Data Date of Consult: 01/27/23 HPI Narrative HPI Narrative: SANDY ORONA, is a 73 F who presents to the emergency room with a multitude of complaints and is noted to this morning to have an elevated troponin and cardiology was called for evaluation and management. She has a history of hypertension, hyperlipidemia obstructive sleep apnea who was recently in the hospital for treatment of urosepsis. In the emergency room she was noted to be nonverbal and a poor informant. She had had a recent echocardiogram demonstrating preserved left ventricular systolic function estimated ejection fraction of 60%. In the emergency room blood work was done her troponin was noted to be elevated blood pressure was normal and her temperature was elevated. She was treated with intravenous fluids and became more short of breath and required BiPAP. ON LICENSE OF [facility] Medical History (Updated 01/27/23 @ 12:[address] Dilip Daily MD) Acute ITP Anemia Anxiety and depression Arthritis Asthma Atrial fibrillation Back pain Benign hypertension Bilateral lower extremity edema BiPAP (biphasic positive airway pressure) dependence Cellulitis of left foot Cholelithiasis Chronic acquired lymphedema Chronic back pain Chronic kidney disease, stage 3b Chronic malnutrition Chronic pain Chronic stasis dermatitis of left lower extremity Congestive heart failure (CHF) COPD (chronic obstructive pulmonary disease) Decreased pedal pulses Depression Diabetes Diabetic ulcer of left foot Diabetic ulcer of right foot Diabetic ulcer of toe of left foot Dialysis patient DVT (deep venous thrombosis) Elephantiasis GERD (gastroesophageal reflux disease) Hammertoe of left foot Hammertoe of left foot Heartburn High cholesterol History of edema History of kidney stones History of pain when walking History of stress test HLD (hyperlipidemia) Hoarseness Hypertension Hypertensive chronic kidney disease with stage 1 through stage 4 chronic kidney disease, or unspecified chronic kidney disease Increased BMI Insulin dependent diabetes mellitus Leg cramps Localized edema MRSA infection Non-smoker Nonhealing ulcer of left lower extremity with fat layer exposed Nonhealing ulcer of right lower extremity with fat layer exposed alf resident Obstructive sleep apnea (adult) (pediatric) On home oxygen therapy RILEY (obstructive sleep apnea) Osteoporosis PAF (paroxysmal atrial fibrillation) Peripheral neuropathy Renal lithiasis Rheumatic fever Rheumatoid arthritis RLS (restless legs syndrome) Seasonal allergies Shortness of breath on exertion Sleep apnea Type 2 diabetes mellitus Type 2 diabetes mellitus with diabetic polyneuropathy Type 2 diabetes mellitus with diabetic polyneuropathy Ulcer of left foot with fat layer exposed Ulcer of right foot with fat layer exposed Venous insufficiency Venous stasis ulcer of right thigh with fat layer exposed Venous ulcer of left lower extremity with varicose veins Venous ulcer of right lower extremity with varicose veins Medical History unable to obtain Home Medications fluticasone propionate 50 mcg/actuation nasal spray,suspension 1 spray QHS allergies 02/16/14 [History Last Taken 12/22/22] acetaminophen 325 mg tablet 650 mg PO Q4H PRN Pain 09/09/21 [History Last Taken 10/08/22] bisacodyl 10 mg rectal suppository 10 mg AK DAILY PRN Constipation 09/09/21 [History Last Taken Unknown] multivitamin 1 tab PO DAILY supplement 09/09/21 [History Last Taken 12/23/22] omeprazole 40 mg capsule,delayed release 40 mg PO DAILY gerd 09/09/21 [History Last Taken 12/23/22] oxybutynin chloride 5 mg tablet 5 mg PO QHS bladder spasms 09/09/21 [History Last Taken 12/22/22] venlafaxine 75 mg capsule,extended release 24 hr 75 mg PO DAILY mental health 05/25/22 [History Last Taken 12/23/22] rivaroxaban 15 mg tablet (Xarelto) 15 mg PO DINNER 30 days #0 tabs 05/28/22 [Rx Last Taken 12/22/22] atorvastatin 10 mg tablet (Lipitor) 10 mg PO QHS cholesterol 09/09/22 [History Last Taken 12/22/22] meclizine 25 mg tablet 25 mg PO TID PRN Vertigo 09/09/22 [History Last Taken Unknown] pramipexole 0.25 mg tablet (Mirapex) 0.25 mg PO QHS restless legs 09/09/22 [History Last Taken 12/22/22] modafinil 200 mg tablet 150 mg (0.75 x 200 mg) PO DAILY 2 days #3 tabs 09/26/22 [Rx Last Taken 12/23/22] pregabalin 50 mg capsule 50 mg PO BID NEUROPATHY 10/09/22 [History Last Taken 12/23/22] fluticasone furoate 100 mcg/actuation blister powder for inhalation (Arnuity Ellipta) 1 inh inhalation QHS COPD 12/23/22 [History Last Taken 12/22/22] metformin 850 mg tablet 850 mg PO DAILY DM 12/23/22 [History Last Taken 12/23/22] methenamine hippurate 1 gram tablet 1 g PO BID UTI 12/23/22 [History Last Taken 12/23/22] triamcinolone acetonide 0.1 % topical cream 1 applic topical DAILY ITCHING 12/23/22 [History Last Taken 12/22/22] diltiazem HCl 240 mg capsule,extended release 24 hr 240 mg PO DAILY #0 caps 12/27/22 [Rx Last Taken Unknown] ferrous sulfate 325 mg (65 mg iron) tablet (iron) 325 mg PO QODAY supplement 30 days #0 tabs 12/27/22 [Rx Last Taken 12/23/22] furosemide 20 mg tablet 40 mg (2 x 20 mg) PO DAILY EDEMA 30 days #0 tabs 12/27/22 [Rx Last Taken 12/22/22] insulin lispro 100 unit/mL subcutaneous pen (Humalog KwikPen (U-100) Insulin) See Protocol subcut TIDAC #0 mL 12/27/22 [Rx Last Taken Unknown] linezolid 600 mg tablet 600 mg PO Q12H #22 tabs 12/27/22 [Rx Last Taken Unknown] sennosides 8.6 mg-docusate sodium 50 mg tablet (Stool Softener-Stimulant Laxative) 2 tab PO BID PRN PRN Constipation #0 tabs 12/27/22 [Rx Last Taken Unknown] spironolactone 25 mg tablet 25 mg PO DAILY diuretic 30 days #0 tabs 12/27/22 [Rx Last Taken 12/23/22] insulin glargine 100 unit/mL (3 mL) subcutaneous pen (Basaglar KwikPen U-100 Insulin) 6 unit subcut QHS diabetes 01/26/23 [History Last Taken Unknown] morphine 30 mg immediate release tablet 30 mg PO DAILY pain 01/26/23 [History Last Taken Unknown] Allergy/AdvReac Type Severity Reaction Status Date / Time aspirin Allergy Severe Hives Verified 01/26/23 22:00 Penicillins Allergy Severe Anaphylaxis Verified 01/26/23 22:00 Sulfa (Sulfonamide Allergy Severe Anaphylaxis Verified 01/26/23 22:00 Antibiotics) latex Allergy Rash Verified 01/26/23 22:00 Family History Mother Heart disease Cancer pancreatic Father Heart disease CVA (cerebral vascular accident) Hypertension Cancer liver, lung Family History unable to obtain Surgical History History of appendectomy History of cardiac catheterization History of cholecystectomy History of ERCP History of hysterectomy Hx of dilation and curettage Hx of toe surgery S/P laparoscopic cholecystectomy Surgical History unable to obtain Social History housing: [facility] Smoking Status: Never smoker alcohol intake: never substance use type: does not use additional social history: currently residing at [facility] Constitutional Constitutional: Denies fever(s) or weight loss Eyes Eyes: Reports systems reviewed and no addt'l complaints, except as documented ENT HEENT: Reports systems reviewed and no addt'l complaints, except as documented Cardiovascular Cardiovascular: Denies chest pain at rest, chest pain with activity, dyspnea at rest, dyspnea on exertion, edema, palpitations or paroxysmal nocturnal dyspnea Respiratory/Chest Respiratory/Chest: Denies dyspnea on exertion, productive cough, shortness of breath at rest or shortness of breath with exertion Gastrointestinal Gastrointestinal: Denies change in bowel habits, nausea, vomiting or weight changes Genitourinary Genitourinary: Denies difficulty urinating Musculoskeletal Musculoskeletal: Denies joint stiffness or muscle weakness Integumentary Integumentary: Denies lesions Neurologic Neurologic: Denies dizziness or syncope Psychiatric Psychiatric: Denies anxiety Endocrine Endocrinology: Denies excessive sweating or fatigue Hematologic/Lymphatic Hematologic/Lymphatic: Denies anemia Allergic/Immunologic Allergic/Immunologic: Denies seasonal rhinorrhea Physical Exam Const no apparent distress Constitutional Narrative: Rather obtunded HEENT hearing grossly normal bilaterally Head and Scalp: atraumatic Eyes EOMs intact bilaterally Neck General: normal visual inspection Chest inspection of chest normal and palpation of chest normal Resp normal respiratory effort Auscultation: clear to auscultation bilaterally Cardio regular rate, regular rhythm, S1 normal heart sound and S2 normal heart sound Jugular Venous Distention: JVD GI normal to inspection, nondistended, normoactive bowel sounds Extremity normal capillary refill and no pedal edema Peripheral Pulses: Yes pulses 2+ throughout and femoral pulses present Skin no rashes or lesions noted Neuro oriented x3 and CN's II-XII intact bilaterally Psych Appearance: grossly normal and appropriate Risk Stratification Risk Stratification Applicable: Yes Age >/= 65: Yes >/= 3 CAD Risk Factors (HTN, HLD, DM, family hx of CAD, or current smoker): Yes Aspirin Use in the Past 7 Days: No Severe Angina (>/= episodes in 24 hours): No EKG ST Changes >/= 0.5mm: No Positive Cardiac Marker: Yes YOKASTA Risk Stratification Score: 3 YOKASTA % Risk: 13% Risk Objective Data Vital Signs: Vital Signs Temp Pulse Resp BP Pulse Ox O2 Del Method O2 Flow Rate 96.6 F L 74 18 109/65 99 Bi-pap 2 01/27/23 09:45 01/27/23 09:45 01/27/23 09:45 01/27/23 09:45 01/27/23 09:45 01/27/23 09:45 01/27/23 02:31 FiO2 35 01/27/23 09:45 Oxygen Flow Rate (L/min) 2 Oxygen Delivery Method Bi-pap Weight: 243 lb 6.245 oz Body Mass Index (BMI) 40.5 Intake & Output: Intake and Output for Last 24 Hours 01/25/23 01/26/23 01/27/23 23:59 23:59 23:59 Intake Total 2955.72 / 2955.72 Output Total 600 / 600 Balance 2355.72 / 2355.72 Lab / Micro Data 01/27/23 03:45 01/27/23 03:45 Labs: Laboratory Results - last 24 hr 01/26/23 22:11: WBC 5.8, RBC 3.95 L, Hgb 11.6 L, Hct 34.7 L, MCV 87.8, MCH 29.4, MCHC 33.4, RDW Std Deviation 50.0 H, RDW Coeff of Melissa 15.6 H, Plt Count 190, MPV 10.8, Immature Gran % (Auto) 2.400 H, Neut % (Auto) 86.5 H, Lymph % (Auto) 6.4 L, [place] % (Auto) 2.9, Eos % (Auto) 0.9, Baso % (Auto) 0.9, Absolute Neuts (auto) 5.0, Absolute Lymphs (auto) 0.37 L, Nucleated RBC % 0.7, Anisocytosis 1+, PT 25.9 H, INR 2.3, APTT 44.3 H, Sodium 133 L, Potassium 3.2 L, Chloride 94 L, Carbon Dioxide 29.0, Anion Gap 10, BUN 23 H, Creatinine 1.07 H, Estim Creat Clear Calc 40.88, Est GFR (MDRD) Af Amer 64, Est GFR (MDRD) Non-Af 53 L, BUN/Creatinine Ratio 21.5 H, Glucose 211 H, Lactic Acid 3.0 H*, Calcium 8.8, Magnesium 1.7, Total Bilirubin 1.30 H, AST 16, ALT 21, Alkaline Phosphatase 159 H, Troponin I High Sens 378 H*, Total Protein 7.1, Albumin 2.7 L, Globulin 4.4 H, Albumin/Globulin Ratio 0.6 L 01/26/23 22:57: Urine Color Yellow, Urine Clarity Cloudy, Urine pH 5.0, Ur Specific [place] 1.020, Urine Protein 100 H, Urine Glucose (UA) Normal, Urine Ketones Negative, Urine Occult Blood 250 H, Urine Nitrite Positive H, Urine Bilirubin Negative, Urine Urobilinogen 1 H, Ur Leukocyte Esterase 500 H, Urine RBC 5-10 SEEN, Urine WBC 50-100 SEEN, Ur Squamous Epith Cells 0-5 SEEN, Urine Bacteria 1+, Urine Mucus 0 SEEN 01/27/23 00:27: Procalcitonin 3.41 H 01/27/23 02:40: POC Glucose 188 H 01/27/23 03:45: WBC 12.8 H, RBC 3.51 L, Hgb 10.2 L, Hct 31.2 L, MCV 88.9, MCH 29.1, MCHC 32.7, RDW Std Deviation 50.8 H, RDW Coeff of Melissa 15.8 H, Plt Count 166, MPV 9.8, Immature Gran % (Auto) 0.400, Neut % (Auto) 88.2 H, Lymph % (Auto) 4.1 L, [place] % (Auto) 6.9, Eos % (Auto) 0.1, Baso % (Auto) 0.3, Absolute Neuts (auto) 11.3 H, Absolute Lymphs (auto) 0.52 L, Nucleated RBC % 0, Anisocytosis 1+, Sodium 137, Potassium 3.1 L, Chloride 101, Carbon Dioxide 29.0, Anion Gap 7, BUN 19 H, Creatinine 0.86, Estim Creat Clear Calc 50.86, Est GFR (MDRD) Af Amer 83, Est GFR (MDRD) Non-Af 69, BUN/Creatinine Ratio 22.2 H, Glucose 201 H, Lactic Acid 1.1, Calcium 8.1 L, Total Bilirubin 1.20 H, AST 22, ALT 20, Alkaline Phosphatase 142 H, Total Protein 6.2 L, Albumin 2.2 L, Globulin 4.0, Albumin/Globulin Ratio 0.6 L 01/27/23 09:05: Troponin I High Sens 1923 H* Micro: Microbiology 01/26/23 22:57 Urine, Catheterized Urine Culture - Preliminary GNR lactose county agent 01/26/23 22:11 Blood Culture (Wb) - Arm Right Blood Culture - Preliminary Cardiology Labs/Tests 01/26/23 22:11: WBC 5.8, RBC 3.95 L, Hgb 11.6 L, Hct 34.7 L, MCV 87.8, MCH 29.4, MCHC 33.4, Plt Count 190, MPV 10.8, Immature Gran % (Auto) 2.400 H, Neut % (Auto) 86.5 H, Lymph % (Auto) 6.4 L, [place] % (Auto) 2.9, Eos % (Auto) 0.9, Baso % (Auto) 0.9, Absolute Neuts (auto) 5.0, Nucleated RBC % 0.7, PT 25.9 H, INR 2.3, APTT 44.3 H, Sodium 133 L, Potassium 3.2 L, Chloride 94 L, Carbon Dioxide 29.0, Anion Gap 10, BUN 23 H, Creatinine 1.07 H, Est GFR (MDRD) Af Amer 64, Est GFR (MDRD) Non-Af 53 L, BUN/Creatinine Ratio 21.5 H, Glucose 211 H, Lactic Acid 3.0 H*, Calcium 8.8, Magnesium 1.7, Total Bilirubin 1.30 H 01/26/23 22:57: Urine Color Yellow, Urine Clarity Cloudy, Urine pH 5.0, Ur Specific [place] 1.020, Urine Protein 100 H, Urine Glucose (UA) Normal, Urine Ketones Negative, Urine Occult Blood 250 H, Urine Nitrite Positive H, Urine Bilirubin Negative, Urine Urobilinogen 1 H, Ur Leukocyte Esterase 500 H, Urine RBC 5-10 SEEN, Urine WBC 50-100 SEEN 01/27/23 03:45: WBC 12.8 H, RBC 3.51 L, Hgb 10.2 L, Hct 31.2 L, MCV 88.9, MCH 29.1, MCHC 32.7, Plt Count 166, MPV 9.8, Immature Gran % (Auto) 0.400, Neut % (Auto) 88.2 H, Lymph % (Auto) 4.1 L, [place] % (Auto) 6.9, Eos % (Auto) 0.1, Baso % (Auto) 0.3, Absolute Neuts (auto) 11.3 H, Nucleated RBC % 0, Sodium 137, Potassium 3.1 L, Chloride 101, Carbon Dioxide 29.0, Anion Gap 7, BUN 19 H, Creatinine 0.86, Est GFR (MDRD) Af Amer 83, Est GFR (MDRD) Non-Af 69, BUN/Creatinine Ratio 22.2 H, Glucose 201 H, Lactic Acid 1.1, Calcium 8.1 L, Total Bilirubin 1.20 H Rhythm: EKG: ECHO: Stress Test: Cardiac Cath: PCI: CT Surgery: Holter monitor: EPS: PPM: CXR: Chest CT Scan: Radiography Diagnostic Testing: Radiology Impression Chest X-Ray 01/26/23 23:20 IMPRESSION: Normal x-ray examination of the chest. Electronically Signed: Everett Raman MD at 23:35 EDT ,
[2023-01-27 12:58] LABS: Bedside Glucose 129 mg/dL (74-106)
[2023-01-27] MEDS: Vancomycin IV 1,000 MG/200 ML BAG 200 MG IV (15:11)
[2023-01-27 16:09] LABS: Bedside Glucose 131 mg/dL (74-106)
[2023-01-27] MEDS: Rivaroxaban 15 MG Tablet PO (17:41)
[2023-01-27] MEDS: Acetaminophen 325 MG Tablet 650 MG PO (21:03)
[2023-01-27] MEDS: Insulin Lispro 100 UNIT/ML INSULN.PEN SC (21:39)
[2023-01-27] MEDS: MELATONIN 3 MG TABLET PO (21:40)
[2023-01-27] MEDS: Oxybutynin 5 MG Tablet PO (21:40)
[2023-01-27] MEDS: Atorvastatin Calcium 10 MG Tablet PO (21:41)
[2023-01-27] MEDS: Insulin Glargine-YFGN 100 UNIT/ML Pen 6 UNIT SC (21:41)
[2023-01-27] MEDS: Fluticasone 0.05% 1 SPRAY NASAL.SRY NASAL (21:42)
[2023-01-27 21:51] LABS: Bedside Glucose 192 mg/dL (74-106)
[2023-01-27] MEDS: Pramipexole Di-HCl 0.25 MG Tablet PO (22:36)
[2023-01-28 01:53] VITALS: PULSE 76; RESP 12; RESP 26; O2SAT 99
[2023-01-28 01:56] VITALS: BP 106/60; PULSE 75; RESP 16; TEMP 36.7; O2SAT 100
[2023-01-28] MEDS: Vancomycin IV 1,000 MG/200 ML BAG 200 MG IV (02:31)
[2023-01-28 06:00] VITALS: BMI 40.7
[2023-01-28] MEDS: Insulin Lispro 100 UNIT/ML INSULN.PEN SC ×4 (06:21→21:43)
[2023-01-28 06:58] LABS: Bedside Glucose 163 mg/dL (74-106)
[2023-01-28 06:59] LABS: Absolute Lymphocyte Count 0.75 X10^3/uL (0.83-4.51); Absolute Neutrophil Count 6.6 X10^3/uL (2.0-7.7); Basophil# 0.03 X10^3/uL; Basophil% 0.4 % (0-1); Eosinophil# 0.06 X10^3/uL; Eosinophils% 0.7 % (0-5); Hematocrit 32.9 % (37-47); Hemoglobin 10.9 g/dL (12.0-15.0); Lymphocyte # 0.75 X10^3/ul (0.83-4.51); Lymphocyte % 9.1 % (19-41); Mean Corp Hgb Conc 33.1 g/dL (32-36); Mean Corpuscular Hgb 29.1 pg (27.0-32.0); Mean Platelet Vol. 10.8 fl (6.2-12.0); Monocyte# 0.84 X10^3/uL; Monocyte% 10.2 % (0-10); NRBC Flagged by Analyzer 0 % (0-5); Neutrophil # 6.56 X10^3/uL (2.7-7.7); Neutrophil % 79.2 % (47-70); Platelet Count 179 K/mm3 (150-450); RBC Distribution Width CV 15.6 % (11.6-14.6); RBC Distribution Width SD 50.3 fl (35.1-43.9); Red Blood Count 3.74 M/mm3 (4.2-5.4); White Blood Count 8.3 K/mm3 (4.4-11.0)
[2023-01-28 07:27] LABS: ALB/GLOB Ratio 0.6 RATIO (0.9-2.4); AST(SGOT) 21 U/L (15-37); Alanine Aminotransfer ALT/SGPT 19 U/L (13-56); Albumin, Serum 2.4 g/dL (3.2-5.0); Alkaline Phosphatase 134 U/L (45-117); Anion Gap 7 (5-15); BUN 13 mg/dL (7-18); BUN/Creat Ratio 17.7 RATIO (10-20); Calcium,Total 8.9 mg/dL (8.5-10.1); Chloride 106 mmol/L (98-107); Creatinine, Serum 0.73 mg/dL (0.55-1.02); EST Glomerular Filtration Rate 82 mL/min (>60); Est Glom Filt Rate - Afr Amer 100 mL/min (>60); Estimated Creatinine Clearance 43.74 ml/min; Globulin 4.3 g/dL (2.2-4.2); Glucose 151 mg/dL (74-106); Magnesium 2.1 mg/dL (1.6-2.6); Potassium 3.1 mmol/L (3.5-5.1); Protein, Total 6.7 g/dL (6.4-8.2); Sodium Level 140 mmol/L (136-145)
--- NOTE | 2023-01-28 09:58 | CASEMGMT ---
Patient is from [facility]. KRISTIN met with patient and confirmed her plan is to return to [facility]. Patient declined a list of jail facilities. Plan: d/c back to [facility]. Navya BUNCH
[2023-01-28] MEDS: dilTIAZem CD 240 MG Capsule PO (10:06)
[2023-01-28] MEDS: Multivitamins,Therapeutic Tablet 1 TABLET PO (10:06)
[2023-01-28] MEDS: Spironolactone 25 MG Tablet PO (10:06)
[2023-01-28] MEDS: Ferrous Sulfate 325 MG Tablet PO (10:06)
[2023-01-28] MEDS: Venlafaxine XR 75 MG Capsule PO (10:07)
[2023-01-28] MEDS: Menthol/Lanolin/Calamine/Znox 113 GM Tube 1 APPLIC TOPICAL ×2 (10:08→21:45)
[2023-01-28] MEDS: Pantoprazole Sodium 40 MG Tablet PO (10:08)
[2023-01-28] MEDS: Furosemide 40 MG Tablet PO (10:08)
[2023-01-28 10:14] VITALS: BP 130/69; PULSE 92; RESP 18; TEMP 36.8; O2SAT 94
--- NOTE | 2023-01-28 10:45 | CASEMGMT ---
Discharge Planning Patient resides at [facility]. [facility]. Asked if precert will be needed. Awaiting response. Lizz Faith, Discharge Planning Asst.
--- NOTE | 2023-01-28 11:31 | PN.HOSP_ITS ---
Subjective Subjective No issues overnight, doing well Objective Data Objective Data Vital Signs: Vital Signs Temp Pulse Resp BP Pulse Ox O2 Del Method O2 Flow Rate 98.2 F 92 18 130/69 H 94 Room Air 1 01/28/23 10:14 01/28/23 10:14 01/28/23 10:14 01/28/23 10:14 01/28/23 10:14 01/28/23 10:14 01/27/23 15:20 FiO2 30 01/28/23 01:56 Oxygen Flow Rate (L/min) 1 Oxygen Delivery Method Room Air Weight: 244 lb 14.937 oz Body Mass Index (BMI) 40.7 Intake & Output: Intake and Output for Last 24 Hours 01/27/23 01/28/23 01/29/23 03:59 03:59 03:59 Intake Total 2099.05 / 2099.05 2150.67 / 2150.67 200 / 200 Output Total 2049 / 2049 250 / 250 Balance 2098.05 / 2098.05 100.67 / 100.67 -50 / -50 Lab / Micro Data 01/28/23 05:30 01/28/23 05:30 Labs: Laboratory Results - last 24 hr 01/27/23 11:51: POC Glucose 129 H 01/27/23 15:49: POC Glucose 131 H 01/27/23 21:33: POC Glucose 192 H 01/28/23 05:30: WBC 8.3, RBC 3.74 L, Hgb 10.9 L, Hct 32.9 L, MCV 88.0, MCH 29.1, MCHC 33.1, RDW Std Deviation 50.3 H, RDW Coeff of Melissa 15.6 H, Plt Count 179, MPV 10.8, Immature Gran % (Auto) 0.400, Neut % (Auto) 79.2 H, Lymph % (Auto) 9.1 L, Schley % (Auto) 10.2 H, Eos % (Auto) 0.7, Baso % (Auto) 0.4, Absolute Neuts (auto) 6.6, Absolute Lymphs (auto) 0.75 L, Nucleated RBC % 0, Sodium 140, Potassium 3.1 L, Chloride 106, Carbon Dioxide 27.0, Anion Gap 7, BUN 13, Creatinine 0.73, Estim Creat Clear Calc 43.74, Est GFR (MDRD) Af Amer 100, Est GFR (MDRD) Non-Af 82, BUN/Creatinine Ratio 17.7, Glucose 151 H, Calcium 8.9, Magnesium 2.1, Total Bilirubin 0.50, AST 21, ALT 19, Alkaline Phosphatase 134 H, Total Protein 6.7, Albumin 2.4 L, Globulin 4.3 H, Albumin/Globulin Ratio 0.6 L 01/28/23 06:19: POC Glucose 163 H Micro: Microbiology 01/26/23 22:57 Urine, Catheterized Urine Culture - Preliminary Escherichia coli 01/26/23 22:11 Blood Culture (Wb) - Arm Right Blood Culture - Preliminary GNR 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 Physical Exam Narrative General: Alert, Oriented x3, Cooperative, No apparent distress HEENT: Atraumatic, PERRLA, EOMI, Normocephalic Oral: Moist Mucosa Neck: Supple, No JVD Lungs: Diminished, Normal air movement, No rhonchi, No wheeze, No rales Cardiovascular: Regular rate, Regular Rhythm, Normal S1, Normal S2, No murmurs Abdomen: Soft, Non Tender, Non-Distended, No Hepato-splenomegaly Extremities: No edema, Capillary Refill Less than 3 Seconds Skin: No rashes, No breakdown Musculoskeletal: No Tenderness to Palpation of Joints or Extremities Neurological: Motor Exam 5/5 strength throughout, Sensory exam intact to light touch and pain Psych/Mental Status: Flat Assessment & Plan Assessment/Plan (1) Sepsis: QUALIFIERS: Sepsis type: Escherichia coli Sepsis acute organ dysfunction status: with acute organ dysfunction Severe sepsis acute organ dysfunction type: encephalopathy Severe sepsis shock status: without septic shock Qualified Code(s): A41.51 - Sepsis due to Escherichia coli [E. coli]; R65.20 - Severe sepsis without septic shock; G93.41 - Metabolic encephalopathy PLAN: POA qSOFA 2 (encephalopathy and SBP <100) 2/2 UTI ESBL E. coli transition to Invanz (previously had E. coli sensitive to CTX) Discontinue vancomycin Hold off on ID consult for now. (2) Urinary tract infection: QUALIFIERS: Urinary tract infection type: acute cystitis Hemat uria presence: without hematuria Qualified Code(s): N30.00 - Acute cystitis without hematuria PLAN: ESBL E. coli on culture, will start Invanz (3) Encephalopathy: PLAN: resolved (4) Hypokalemia: PLAN: continue to replace Mg 1.7, replace monitor (5) NSTEMI, initial episode of care: PLAN: Suspecte Type II, demand ischemia Checked in ED 378, subsequent was 192 Echo from 12/24/22 showed an EF of 60%. Already anticoagulated rivaroxaban Cardiology consulted, no plans for intervention at this time. PLAN: Plan Chronic complicating conditions: * Chronic Kidney Disease Stage IIIb: stable * Diabetes mellitus type II with chronic neuropathy: metformin held. Continue glargine and SSI. * Anxiety and depression: continue venlafaxine * Hypertension: Continue spironolactone, metolazone, Lasix, diltiazem with parameters as needed, PRN hydralazine. 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 * PAF: continue xarelto and diltiazem * Chronic back pain: non narcotics given encephalopathy. Hold pregabalin.#12. * Restless leg syndrome: hold Mirapex given encephalopathy * GERD: continue PPI. * History of VTE: Patient with history of DVT, continue xarelto * Narcolepsy: hold modafanil for now * Chronic bilateral lower extremity lymphedema: No marked edema on evaluation, notable stasis disease however. If needed may add LEBRON wraps and elevation. * Morbid Obesity: BMI 40.5 kg/m? * RILEY: BIPAP q HS. DVT prophylaxis: Not indicated as patient is already anticoagulated on rivaroxaban. CODE STATUS: Full Code Charges/Coding Visit Charges Inpatient E&M: 42283 Subs Hosp L2
[2023-01-28 12:05] LABS: Phosphorus 2.6 mg/dL (2.5-4.9)
[2023-01-28 13:02] LABS: Bedside Glucose 171 mg/dL (74-106)
[2023-01-28 15:36] VITALS: BP 92/66; PULSE 90; RESP 20; TEMP 36.7; O2SAT 94
--- NOTE | 2023-01-28 15:49 | NURSING ---
Pt getting up in physical therapy, sitting on edge of bed. Was restless in bed prior to getting up but once up pt felt like she was having chest pain. pt states her chest pain feels dull and achy and just started. 02 applied at 2L N[place]. Nausea, dizzyness, clammy. BS is 210. 12 EKG done in room, shows NSR.
[2023-01-28] MEDS: Acetaminophen 325 MG Tablet 650 MG PO ×2 (16:05→21:56)
[2023-01-28] MEDS: Rivaroxaban 15 MG Tablet PO (16:07)
[2023-01-28 16:11] LABS: Bedside Glucose 210 mg/dL (74-106)
--- NOTE | 2023-01-28 16:25 | EKG12_ITS ---
Test Reason : Blood Pressure : / mmHG Vent. Rate : 090 BPM Atrial Rate : 090 BPM P-R Int : 160 ms QRS Dur : 082 ms QT Int : 372 ms P-R-T Axes : 043 062 104 degrees QTc Int : 455 ms Normal sinus rhythm Low voltage QRS Borderline ECG When compared with ECG of 26-JAN-2023 23:26, MANUAL COMPARISON REQUIRED, DATA IS UNCONFIRMED Confirmed by DANIELA SNYDER, DEREK ([id number]), avid editor AMIRA SOLITARIO ([id number]) on 01/31/2023 10:37:51 AM Referred By: LEAH Confirmed By:DEREK SUAREZ MD
[2023-01-28 21:37] VITALS: BP 118/70; PULSE 86; RESP 18; TEMP 35.9; O2SAT 95
[2023-01-28] MEDS: Oxybutynin 5 MG Tablet PO (21:42)
[2023-01-28] MEDS: Atorvastatin Calcium 10 MG Tablet PO (21:42)
[2023-01-28] MEDS: Pramipexole Di-HCl 0.25 MG Tablet PO (21:42)
[2023-01-28] MEDS: Insulin Glargine-YFGN 100 UNIT/ML Pen 6 UNIT SC (21:42)
[2023-01-28] MEDS: Fluticasone 0.05% 1 SPRAY NASAL.SRY NASAL (21:44)
[2023-01-28 22:14] LABS: Bedside Glucose 153 mg/dL (74-106)
[2023-01-28 23:55] VITALS: PULSE 78; RESP 12; RESP 28; O2SAT 99
[2023-01-29] VITALS (8 sets, daily range): BP systolic 105–138; BP diastolic 62–79; PULSE 70–87; RESP 12–23; TEMP 36.1–36.6; O2SAT 93–100; BMI 39.7
[2023-01-29 06:02] LABS: Absolute Lymphocyte Count 1.12 X10^3/uL (0.83-4.51); Absolute Neutrophil Count 6.5 X10^3/uL (2.0-7.7); Basophil# 0.05 X10^3/uL; Basophil% 0.6 % (0-1); Eosinophils% 1.1 % (0-5); Hematocrit 34.9 % (37-47); Hemoglobin 11.4 g/dL (12.0-15.0); Lymphocyte # 1.12 X10^3/ul (0.83-4.51); Lymphocyte % 12.9 % (19-41); Mean Corp Hgb Conc 32.7 g/dL (32-36); Mean Corpuscular Hgb 28.9 pg (27.0-32.0); Mean Corpuscular Volume 88.6 fL (81-99); Mean Platelet Vol. 10.6 fl (6.2-12.0); Monocyte# 0.86 X10^3/uL; Monocyte% 9.9 % (0-10); NRBC Flagged by Analyzer 0 % (0-5); Neutrophil # 6.54 X10^3/uL (2.7-7.7); Neutrophil % 75.2 % (47-70); Platelet Count 210 K/mm3 (150-450); RBC Distribution Width CV 15.1 % (11.6-14.6); RBC Distribution Width SD 48.5 fl (35.1-43.9); Red Blood Count 3.94 M/mm3 (4.2-5.4); White Blood Count 8.7 K/mm3 (4.4-11.0)
[2023-01-29 06:25] LABS: Anion Gap 6 (5-15); BUN 9 mg/dL (7-18); BUN/Creat Ratio 13.1 RATIO (10-20); Calcium,Total 8.9 mg/dL (8.5-10.1); Chloride 109 mmol/L (98-107); Creatinine, Serum 0.69 mg/dL (0.55-1.02); EST Glomerular Filtration Rate 88 mL/min (>60); Est Glom Filt Rate - Afr Amer 107 mL/min (>60); Estimated Creatinine Clearance 43.74 ml/min; Glucose 141 mg/dL (74-106); Potassium 2.8 mmol/L (3.5-5.1); Sodium Level 141 mmol/L (136-145)
[2023-01-29 07:09] LABS: Bedside Glucose 146 mg/dL (74-106)
[2023-01-29] MEDS: Potassium Chloride Oral Tablet 20 MEQ 60 MEQ PO (08:11)
[2023-01-29] MEDS: Venlafaxine XR 75 MG Capsule PO (08:11)
[2023-01-29] MEDS: Multivitamins,Therapeutic Tablet 1 TABLET PO (08:12)
[2023-01-29] MEDS: Pantoprazole Sodium 40 MG Tablet PO (08:12)
[2023-01-29] MEDS: dilTIAZem CD 240 MG Capsule PO (08:12)
[2023-01-29] MEDS: Menthol/Lanolin/Calamine/Znox 113 GM Tube 1 APPLIC TOPICAL ×2 (08:12→08:13)
[2023-01-29] MEDS: Furosemide 40 MG Tablet PO (08:12)
[2023-01-29] MEDS: Spironolactone 25 MG Tablet PO (08:12)
--- NOTE | 2023-01-29 09:35 | PN.HOSP_ITS ---
Subjective Subjective Doing well, much more alert and oriented today, feeling better Objective Data Objective Data Vital Signs: Vital Signs Temp Pulse Resp BP Pulse Ox O2 Del Method O2 Flow Rate 97.0 F L 70 23 H 105/69 96 Room Air 1 01/29/23 02:23 01/29/23 04:07 01/29/23 04:07 01/29/23 02:23 01/29/23 07:25 01/29/23 07:25 01/27/23 15:20 FiO2 35 01/29/23 04:07 Oxygen Flow Rate (L/min) 1 Oxygen Delivery Method Room Air Weight: 238 lb 15.697 oz Body Mass Index (BMI) 39.7 Intake & Output: Intake and Output for Last 24 Hours 01/28/23 01/29/23 01/30/23 03:59 03:59 03:59 Intake Total 2150.67 / 2150.67 1086.67 / 1086.67 Output Total 2049 / 2049 1400 / 1400 350 / 350 Balance 100.67 / 100.67 -313.33 / -313.33 -350 / -350 Lab / Micro Data 01/29/23 04:56 01/29/23 04:56 Labs: Laboratory Results - last 24 hr 01/28/23 05:30: Phosphorus 2.6 01/28/23 12:25: POC Glucose 171 H 01/28/23 15:48: POC Glucose 210 H 01/28/23 21:40: POC Glucose 153 H 01/29/23 04:56: WBC 8.7, RBC 3.94 L, Hgb 11.4 L, Hct 34.9 L, MCV 88.6, MCH 28.9, MCHC 32.7, RDW Std Deviation 48.5 H, RDW Coeff of Melissa 15.1 H, Plt Count 210, MPV 10.6, Immature Gran % (Auto) 0.300, Neut % (Auto) 75.2 H, Lymph % (Auto) 12.9 L, Zapata % (Auto) 9.9, Eos % (Auto) 1.1, Baso % (Auto) 0.6, Absolute Neuts (auto) 6.5, Absolute Lymphs (auto) 1.12, Nucleated RBC % 0, Sodium 141, Potassium 2.8 L , Chloride 109 H, Carbon Dioxide 26.0, Anion Gap 6, BUN 9, Creatinine 0.69, Estim Creat Clear Calc 43.74, Est GFR (MDRD) Af Amer 107, Est GFR (MDRD) Non-Af 88, BUN/Creatinine Ratio 13.1, Glucose 141 H, Calcium 8.9 01/29/23 06:50: POC Glucose 146 H Micro: Microbiology 01/26/23 22:57 Urine, Catheterized Urine Culture - Final Escherichia coli 01/26/23 22:40 Blood Culture (Wb) - Left Hand Blood Culture - Preliminary No growth in 48 hours. 01/26/23 22:11 Blood Culture (Wb) - Arm Right Blood Culture - Preliminary Escherichia coli Physical Exam Narrative General: Alert, Oriented x3, Cooperative, No apparent distress HEENT: Atraumatic, PERRLA, EOMI, Normocephalic Oral: Moist Mucosa Neck: Supple, No JVD Lungs: Diminished, Normal air movement, No rhonchi, No wheeze, No rales Cardiovascular: Regular rate, Regular Rhythm, Normal S1, Normal S2, No murmurs Abdomen: Soft, Non Tender, Non-Distended, No Hepato-splenomegaly Extremities: No edema, Capillary Refill Less than 3 Seconds Skin: No rashes, No breakdown Musculoskeletal: No Tenderness to Palpation of Joints or Extremities Neurological: Motor Exam 5/5 strength throughout, Sensory exam intact to light touch and pain Psych/Mental Status: Normal affect Assessment & Plan Assessment/Plan (1) Sepsis: QUALIFIERS: Sepsis type: Escherichia coli Sepsis acute organ dysfunction status: with acute organ dysfunction Severe sepsis acute organ dysfunction type: encephalopathy Severe sepsis shock status: without septic shock Qualified Code(s): A41.51 - Sepsis due to Escherichia coli [E. coli]; R65.20 - Severe sepsis without septic shock; G93.41 - Metabolic encephalopathy PLAN: In the EDPOA qSOFA 2 (encephalopathy and SBP <100) 2/2 UTI ESBL E. coli transition to Invanz Discontinue vancomycin We will consult ID tomorrow E. coli in her blood in her urine treatment options between IV versus IM Invanz (2) Urinary tract infection: QUALIFIERS: Urinary tract infection type: acute cystitis Hematuria presence: without hematuria Qualified Code(s): N30.00 - Acute cystitis without hematuria PLAN: ESBL E. coli on culture, will start Invanz (3) Encephalopathy: PLAN: resolved (4) Hypokalemia: PLAN: continue to replace Mg 1.7, replace monitor (5) NSTEMI, initial episode of care: PLAN: Suspecte Type II, demand ischemia Checked in ED 378, subsequent was 192 Echo from 12/24/22 showed an EF of 60%. Already anticoagulated rivaroxaban Cardiology consulted, no plans for intervention at this time. PLAN: Plan Chronic complicating conditions: * Chronic Kidney Disease Stage IIIb: stable * Diabetes mellitus type II with chronic neuropathy: metformin held. Continue glargine and SSI. * Anxiety and depression: continue venlafaxine * Hypertension: Continue spironolactone, metolazone, Lasix, diltiazem with parameters as needed, PRN hydralazine. 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 * PAF: continue xarelto and diltiazem * Chronic back pain: non narcotics given encephalopathy. Hold pregabalin.#12. * Restless leg syndrome: hold Mirapex given encephalopathy * GERD: continue PPI. * History of VTE: Patient with history of DVT, continue xarelto * Narcolepsy: hold modafanil for now * Chronic bilateral lower extremity lymphedema: No marked edema on evaluation, notable stasis disease however. If needed may add LEBRON wraps and elevation. * Morbid Obesity: BMI 40.5 kg/m? * RILEY: BIPAP q HS. DVT: Xarelto Charges/Coding Visit Charges Inpatient E&M: 60601 Subs Hosp L2
[2023-01-29] MEDS: 0.9% Saline Lock 10 ML Syringe IV (10:56)
[2023-01-29] MEDS: Insulin Lispro 100 UNIT/ML INSULN.PEN SC ×2 (11:06→18:14)
[2023-01-29 12:30] LABS: Bedside Glucose 194 mg/dL (74-106)
[2023-01-29] MEDS: Acetaminophen 325 MG Tablet 650 MG PO (18:13)
[2023-01-29] MEDS: Rivaroxaban 15 MG Tablet PO (18:14)
[2023-01-29 18:29] LABS: Bedside Glucose 169 mg/dL (74-106)
[2023-01-29] MEDS: Oxybutynin 5 MG Tablet PO (21:31)
[2023-01-29] MEDS: Pramipexole Di-HCl 0.25 MG Tablet PO (21:31)
[2023-01-29] MEDS: Atorvastatin Calcium 10 MG Tablet PO (21:31)
[2023-01-29] MEDS: Fluticasone 0.05% 1 SPRAY NASAL.SRY NASAL (21:31)
[2023-01-29] MEDS: Insulin Glargine-YFGN 100 UNIT/ML Pen 6 UNIT SC (21:32)
[2023-01-29] MEDS: MELATONIN 3 MG TABLET PO (21:44)
[2023-01-29 23:37] LABS: Bedside Glucose 132 mg/dL (74-106)
[2023-01-30 03:48] VITALS: BMI 38.9
[2023-01-30 04:15] VITALS: BP 114/63; PULSE 81; RESP 18; TEMP 36.2; O2SAT 97
[2023-01-30] MEDS: Insulin Lispro 100 UNIT/ML INSULN.PEN SC ×3 (06:39→17:38)
[2023-01-30 07:00] LABS: Bedside Glucose 172 mg/dL (74-106)
[2023-01-30 07:18] LABS: Anion Gap 6 (5-15); BUN 9 mg/dL (7-18); BUN/Creat Ratio 13.7 RATIO (10-20); Calcium,Total 8.8 mg/dL (8.5-10.1); Chloride 112 mmol/L (98-107); Creatinine, Serum 0.66 mg/dL (0.55-1.02); EST Glomerular Filtration Rate 93 mL/min (>60); Est Glom Filt Rate - Afr Amer 113 mL/min (>60); Estimated Creatinine Clearance 43.74 ml/min; Glucose 153 mg/dL (74-106); Potassium 3.2 mmol/L (3.5-5.1); Sodium Level 142 mmol/L (136-145)
--- NOTE | 2023-01-30 09:30 | PN.HOSP_ITS ---
Subjective Subjective Doing well, no issues overnight Objective Data Objective Data Vital Signs: Vital Signs Temp Pulse Resp BP Pulse Ox O2 Del Method O2 Flow Rate 97.2 F L 81 18 114/63 97 Room Air 1 01/30/23 04:15 01/30/23 04:15 01/30/23 04:15 01/30/23 04:15 01/30/23 04:15 01/30/23 07:04 01/27/23 15:20 FiO2 35 01/29/23 04:07 Oxygen Flow Rate (L/min) 1 Oxygen Delivery Method Room Air Weight: 233 lb 14.567 oz Body Mass Index (BMI) 38.9 Intake & Output: Intake and Output for Last 24 Hours 01/29/23 01/30/23 01/31/23 03:59 03:59 03:59 Intake Total 1086.67 / 1086.67 500 / 500 Output Total 1400 / 1400 1250 / 1250 Balance -313.33 / -313.33 -750 / -750 Lab / Micro Data 01/29/23 04:56 01/30/23 06:15 Labs: Laboratory Results - last 24 hr 01/29/23 11:02: POC Glucose 194 H 01/29/23 17:48: POC Glucose 169 H 01/29/23 21:30: POC Glucose 132 H 01/30/23 06:15: Sodium 142, Potassium 3.2 L, Chloride 112 H, Carbon Dioxide 24.0, Anion Gap 6, BUN 9, Creatinine 0.66, Estim Creat Clear Calc 43.74, Est GFR (MDRD) Af Amer 113, Est GFR (MDRD) Non-Af 93, BUN/Creatinine Ratio 13.7, Glucose 153 H, Calcium 8.8 01/30/23 06:38: POC Glucose 172 H Micro: Microbiology 01/26/23 22:11 Blood Culture (Wb) - Arm Right Blood Culture - Final ESBL Escherichia coli 01/26/23 22:57 Urine, Catheterized Urine Culture - Final Escherichia coli 01/26/23 22:40 Blood Culture (Wb) - Left Hand Blood Culture - Preliminary No growth in 48 hours. Physical Exam Narrative General: Alert, Oriented x3, Cooperative, No apparent distress HEENT: Atraumatic, PERRLA, EOMI, Normocephalic Oral: Moist Mucosa Neck: Supple, No JVD Lungs: Diminished, Normal air movement, No rhonchi, No wheeze, No rales Cardiovascular: Regular rate, Regular Rhythm, Normal S1, Normal S2, No murmurs Abdomen: Soft, Non Tender, Non-Distended, No Hepato-splenomegaly Extremities: No edema, Capillary Refill Less than 3 Seconds Skin: No rashes, No breakdown Musculoskeletal: No Tenderness to Palpation of Joints or Extremities Neurological: Motor Exam 5/5 strength throughout, Sensory exam intact to light touch and pain Psych/Mental Status: Normal affect Assessment & Plan Assessment/Plan (1) Sepsis: QUALIFIERS: Sepsis type: Escherichia coli Sepsis acute organ dysfunction status: with acute organ dysfunction Severe sepsis acute organ dysfunction type: encephalopathy Severe sepsis shock status: without septic shock Qualified Code(s): A41.51 - Sepsis due to Escherichia coli [E. coli]; R65.20 - Severe sepsis without septic shock; G93.41 - Metabolic encephalopathy PLAN: In the EDPOA qSOFA 2 (encephalopathy and SBP <100) 2/2 UTI ESBL E. coli transition to Invanz Discontinue vancomycin We will consult ID tomorrow E. coli in her blood in her urine treatment options between IV versus IM Invanz (2) Urinary tract infection: QUALIFIERS: Urinary tract infection type: acute cystitis Hematuria presence: without hematuria Qualified Code(s): N30.00 - Acute cystitis without hematuria PLAN: ESBL E. coli on culture, will start Invanz (3) Encephalopathy: PLAN: resolved (4) Hypokalemia: PLAN: continue to replace Mg 1.7, replace monitor (5) NSTEMI, initial episode of care: PLAN: Suspecte Type II, demand ischemia Checked in ED 378, subsequent was 192 Echo from 12/24/22 showed an EF of 60%. Already anticoagulated rivaroxaban Cardiology consulted, no plans for intervention at this time. PLAN: Plan Chronic complicating conditions: * Chronic Kidney Disease Stage IIIb: stable * Diabetes mellitus type II with chronic neuropathy: metformin held. Continue glargine and SSI. * Anxiety and depression: continue venlafaxine * Hypertension: Continue spironolactone, metolazone, Lasix, diltiazem with parameters as needed, PRN hydralazine. 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 * PAF: continue xarelto and diltiazem * Chronic back pain: non narcotics given encephalopathy. Hold pregabalin.#12. * Restless leg syndrome: hold Mirapex given encephalopathy * GERD: continue PPI. * History of VTE: Patient with history of DVT, continue xarelto * Narcolepsy: hold modafanil for now * Chronic bilateral lower extremity lymphedema: No marked edema on evaluation, n otable stasis disease however. If needed may add LEBRON wraps and elevation. * Morbid Obesity: BMI 40.5 kg/m? * RILEY: BIPAP q HS. DVT: Xarelto Charges/Coding Visit Charges Inpatient E&M: 61292 Subs Hosp L2
--- NOTE | 2023-01-30 09:48 | CASEMGMT ---
Discharge Planning Updates sent to [facility] via [employer]. Asked that pre-cert be submitted. Lizz Faith, Discharge Planning Asst.
[2023-01-30 10:15] VITALS: BP 129/67; PULSE 95; RESP 18; TEMP 36.3; O2SAT 95
[2023-01-30] MEDS: Potassium Chloride Oral Tablet 20 MEQ 60 MEQ PO (10:26)
[2023-01-30] MEDS: Menthol/Lanolin/Calamine/Znox 113 GM Tube 1 APPLIC TOPICAL ×2 (10:27→20:56)
[2023-01-30] MEDS: dilTIAZem CD 240 MG Capsule PO (10:29)
[2023-01-30] MEDS: Multivitamins,Therapeutic Tablet 1 TABLET PO (10:29)
[2023-01-30] MEDS: Ferrous Sulfate 325 MG Tablet PO (10:30)
[2023-01-30] MEDS: Pantoprazole Sodium 40 MG Tablet PO (10:30)
[2023-01-30] MEDS: Venlafaxine XR 75 MG Capsule PO (10:30)
[2023-01-30] MEDS: Spironolactone 25 MG Tablet PO (10:30)
[2023-01-30] MEDS: Furosemide 40 MG Tablet PO (10:30)
--- NOTE | 2023-01-30 11:18 | CON.PCM.ID_ITS ---
Assessment & Plan Assessment/Plan (1) Sepsis: PLAN: Patient presented with sepsis and found to have ESBL positive E. coli in her bloodstream. Source of the bacteremia is from the tract. Clinically responding on daily ertapenem. From my standpoint she is okay to go back to the ECF on ertapenem 1 g IM daily for the next 5 days for a total of 7 days of treatment. HPI Consult Data Date of Consult: 01/30/23 HPI Narrative Reason for Consultation: E. coli bacteremia HPI Narrative: SANDY ORONA, is a 73 F who presents late last week with altered mental status /sepsis. Interestingly her admission blood cultures grew out ESBL positive E. coli. Patient is currently on ertapenem 1 g IV daily. She states that she feels better and her mentation is back to baseline. Patient was started on ertapenem roughly 48 hours ago. She does have control of her bladder with vague urological symptoms. No cardiopulmonary distress. No gastrointestinal symptoms. She is overall hemodynamically stable. Patient does have multiple comorbidities and currently resides in extended-care facility. No focal neurological symptomatology. [facility] Medical History (Updated 01/27/23 @ 13:[address] Peña Bailey, ) Acute ITP Anemia Anxiety and depression Arthritis Asthma Atrial fibrillation Back pain Benign hypertension Bilateral lower extremity edema BiPAP (biphasic positive airway pressure) dependence Cellulitis of left foot Cholelithiasis Chronic acquired lymphedema Chronic back pain Chronic kidney disease, stage 3b Chronic malnutrition Chronic pain Chronic stasis dermatitis of left lower extremity Congestive heart failure (CHF) COPD (chronic obstructive pulmonary disease) Decreased pedal pulses Depression Diabetes Diabetic ulcer of left foot Diabetic ulcer of right foot Diabetic ulcer of toe of left foot Dialysis patient DVT (deep venous thrombosis) Elephantiasis GERD (gastroesophageal reflux disease) Hammertoe of left foot Hammertoe of left foot Heartburn High cholesterol History of edema History of kidney stones History of pain when walking History of stress test HLD (hyperlipidemia) Hoarseness Hypertension Hypertensive chronic kidney disease with stage 1 through stage 4 chronic kidney disease, or unspecified chronic kidney disease Increased BMI Insulin dependent diabetes mellitus Leg cramps Localized edema MRSA infection Non-smoker Nonhealing ulcer of left lower extremity with fat layer exposed Nonhealing ulcer of right lower extremity with fat layer exposed senior living resident Obstructive sleep apnea (adult) (pediatric) On home oxygen therapy RILEY (obstructive sleep apnea) Osteoporosis PAF (paroxysmal atrial fibrillation) Peripheral neuropathy Renal lithiasis Rheumatic fever Rheumatoid arthritis RLS (restless legs syndrome) Seasonal allergies Shortness of breath on exertion Sleep apnea Type 2 diabetes mellitus Type 2 diabetes mellitus with diabetic polyneuropathy Type 2 diabetes mellitus with diabetic polyneuropathy Ulcer of left foot with fat layer exposed Ulcer of right foot with fat layer exposed Venous insufficiency Venous stasis ulcer of right thigh with fat layer exposed Venous ulcer of left lower extremity with varicose veins Venous ulcer of right lower extremity with varicose veins Medical History unable to obtain Home Medications fluticasone propionate 50 mcg/actuation nasal spray,suspension 1 spray QHS allergies 02/16/14 [History Last Taken 12/22/22] acetaminophen 325 mg tablet 650 mg PO Q4H PRN Pain 09/09/21 [History Last Taken 10/08/22] bisacodyl 10 mg rectal suppository 10 mg TN DAILY PRN Constipation 09/09/21 [History Last Taken Unknown] multivitamin 1 tab PO DAILY supplement 09/09/21 [History Last Taken 12/23/22] omeprazole 40 mg capsule,delayed release 40 mg PO DAILY gerd 09/09/21 [History Last Taken 12/23/22] oxybutynin chloride 5 mg tablet 5 mg PO QHS bladder spasms 09/09/21 [History Last Taken 12/22/22] venlafaxine 75 mg capsule,extended release 24 hr 75 mg PO DAILY mental health 05/25/22 [History Last Taken 12/23/22] rivaroxaban 15 mg tablet (Xarelto) 15 mg PO DINNER 30 days #0 tabs 05/28/22 [Rx Last Taken 12/22/22] atorvastatin 10 mg tablet (Lipitor) 10 mg PO QHS cholesterol 09/09/22 [History Last Taken 12/22/22] meclizine 25 mg tablet 25 mg PO TID PRN Vertigo 09/09/22 [History Last Taken Unknown] pramipexole 0.25 mg tablet (Mirapex) 0.25 mg PO QHS restless legs 09/09/22 [History Last Taken 12/22/22] modafinil 200 mg tablet 150 mg (0.75 x 200 mg) PO DAILY 2 days #3 tabs 09/26/22 [Rx Last Taken 12/23/22] pregabalin 50 mg capsule 50 mg PO BID NEUROPATHY 10/09/22 [History Last Taken 12/23/22] fluticasone furoate 100 mcg/actuation blister powder for inhalation (Arnuity Ellipta) 1 inh inhalation QHS COPD 12/23/22 [History Last Taken 12/22/22] metformin 850 mg tablet 850 mg PO DAILY DM 12/23/22 [History Last Taken 12/23/22] methenamine hippurate 1 gram tablet 1 g PO BID UTI 12/23/22 [History Last Taken 12/23/22] triamcinolone acetonide 0.1 % topical cream 1 applic topical DAILY ITCHING 12/23/22 [History Last Taken 12/22/22] diltiazem HCl 240 mg capsule,extended release 24 hr 240 mg PO DAILY #0 caps 12/27/22 [Rx Last Taken Unknown] ferrous sulfate 325 mg (65 mg iron) tablet (iron) 325 mg PO QODAY supplement 30 days #0 tabs 12/27/22 [Rx Last Taken 12/23/22] furosemide 20 mg tablet 40 mg (2 x 20 mg) PO DAILY EDEMA 30 days #0 tabs 12/27/22 [Rx Last Taken 12/22/22] insulin lispro 100 unit/mL subcutaneous pen (Humalog KwikPen (U-100) Insulin) See Protocol subcut TIDAC #0 mL 12/27/22 [Rx Last Taken Unknown] linezolid 600 mg tablet 600 mg PO Q12H #22 tabs 12/27/22 [Rx Last Taken Unknown] sennosides 8.6 mg-docusate sodium 50 mg tablet (Stool Softener-Stimulant Laxative) 2 tab PO BID PRN PRN Constipation #0 tabs 12/27/22 [Rx Last Taken Unknown] spironolactone 25 mg tablet 25 mg PO DAILY diuretic 30 days #0 tabs 12/27/22 [Rx Last Taken 12/23/22] insulin glargine 100 unit/mL (3 mL) subcutaneous pen (Basaglar KwikPen U-100 Insulin) 6 unit subcut QHS diabetes 01/26/23 [History Last Taken Unknown] morphine 30 mg immediate release tablet 30 mg PO DAILY pain 01/26/23 [History Last Taken Unknown] Allergy/AdvReac Type Severity Reaction Status Date / Time aspirin Allergy Severe Hives Verified 01/26/23 22:00 Penicillins Allergy Severe Anaphylaxis Verified 01/26/23 22:00 Sulfa (Sulfonamide Allergy Severe Anaphylaxis Verified 01/26/23 22:00 Antibiotics) latex Allergy Rash Verified 01/26/23 22:00 Family History Mother Heart disease Cancer pancreatic Father Heart disease CVA (cerebral vascular accident) Hypertension Cancer liver, lung Family History unable to obtain Surgical History History of appendectomy History of cardiac catheterization History of cholecystectomy History of ERCP History of hysterectomy Hx of dilation and curettage Hx of toe surgery S/P laparoscopic cholecystectomy Surgical History unable to obtain Social History housing: alf Smoking Status: Never smoker alcohol intake: never substance use type: does not use additional social history: currently residing at [facility] ROS ROS Narrative As stated in the history of present illness others negative Physical Exam Narrative Alert responsive does not appear toxic lungs are clear heart exam S1-S2 distant heart sounds. Abdomen is obese but soft. Lab / Micro Data 01/29/23 04:56 01/30/23 06:15 Labs: Laboratory Results - last 24 hr 01/29/23 11:02: POC Glucose 194 H 01/29/23 17:48: POC Glucose 169 H 01/29/23 21:30: POC Glucose 132 H 01/30/23 06:15: Sodium 142, Potassium 3.2 L, Chloride 112 H, Carbon Dioxide 24.0, Anion Gap 6, BUN 9, Creatinine 0.66, Estim Creat Clear Calc 43.74, Est GFR (MDRD) Af Amer 113, Est GFR (MDRD) Non-Af 93, BUN/Creatinine Ratio 13.7, Glucose 153 H, Calcium 8.8 01/30/23 06:38: POC Glucose 172 H Micro: Microbiology 01/26/23 22:11 Blood Culture (Wb) - Arm Right Blood Culture - Final ESBL Escherichia coli 01/26/23 22:57 Urine, Catheterized Urine Culture - Final Escherichia coli 01/26/23 22:40 Blood Culture (Wb) - Left Hand Blood Culture - Preliminary No growth in 48 hours.
[2023-01-30 12:59] LABS: Bedside Glucose 225 mg/dL (74-106)
[2023-01-30 16:15] VITALS: BP 108/56; PULSE 82; RESP 18; TEMP 36.8; O2SAT 94
[2023-01-30] MEDS: Rivaroxaban 15 MG Tablet PO (17:40)
[2023-01-30 17:59] LABS: Bedside Glucose 157 mg/dL (74-106)
[2023-01-30 19:30] VITALS: PULSE 80; RESP 18; O2SAT 96
[2023-01-30] MEDS: Budesonide Respules 0.5 MG/2 ML AMPUL.NEB. INHALATION (19:30)
[2023-01-30 20:52] VITALS: BP 124/74; PULSE 88; RESP 18; TEMP 36.7; O2SAT 94
[2023-01-30] MEDS: 0.9% Saline Lock 10 ML Syringe IV (20:55)
[2023-01-30] MEDS: Atorvastatin Calcium 10 MG Tablet PO (20:55)
[2023-01-30] MEDS: MELATONIN 3 MG TABLET PO (20:55)
[2023-01-30] MEDS: Ondansetron 4 MG/2 ML Vial IV (20:55)
[2023-01-30] MEDS: Oxybutynin 5 MG Tablet PO (20:55)
[2023-01-30] MEDS: Pramipexole Di-HCl 0.25 MG Tablet PO (20:55)
[2023-01-30] MEDS: Fluticasone 0.05% 1 SPRAY NASAL.SRY NASAL (20:55)
--- NOTE | 2023-01-30 22:30 | NURSING ---
update given to daughter Susan
[2023-01-30 23:30] LABS: Bedside Glucose 114 mg/dL (74-106)
[2023-01-30 23:35] VITALS: PULSE 85; RESP 12; RESP 22; O2SAT 98
[2023-01-31] VITALS (9 sets, daily range): BP systolic 107–131; BP diastolic 53–74; PULSE 83–97; RESP 12–28; TEMP 36.4–36.8; O2SAT 94–99; BMI 39.2
[2023-01-31 05:51] LABS: Absolute Neutrophil Count 6.6 X10^3/uL (2.0-7.7); Basophil# 0.06 X10^3/uL; Basophil% 0.7 % (0-1); Eosinophil# 0.14 X10^3/uL; Eosinophils% 1.5 % (0-5); Hemoglobin 12.1 g/dL (12.0-15.0); Lymphocyte % 16.3 % (19-41); Mean Corp Hgb Conc 31.8 g/dL (32-36); Mean Corpuscular Hgb 28.5 pg (27.0-32.0); Mean Corpuscular Volume 89.6 fL (81-99); Monocyte# 0.85 X10^3/uL; Monocyte% 9.2 % (0-10); NRBC Flagged by Analyzer 0 % (0-5); Neutrophil # 6.58 X10^3/uL (2.7-7.7); Neutrophil % 71.6 % (47-70); Platelet Count 248 K/mm3 (150-450); RBC Distribution Width CV 15.2 % (11.6-14.6); RBC Distribution Width SD 49.3 fl (35.1-43.9); Red Blood Count 4.24 M/mm3 (4.2-5.4); White Blood Count 9.2 K/mm3 (4.4-11.0)
[2023-01-31 06:35] LABS: Anion Gap 6 (5-15); BUN 10 mg/dL (7-18); BUN/Creat Ratio 14.8 RATIO (10-20); Calcium,Total 8.7 mg/dL (8.5-10.1); Chloride 110 mmol/L (98-107); Creatinine, Serum 0.68 mg/dL (0.55-1.02); EST Glomerular Filtration Rate 90 mL/min (>60); Est Glom Filt Rate - Afr Amer 109 mL/min (>60); Estimated Creatinine Clearance 43.74 ml/min; Glucose 135 mg/dL (74-106); Potassium 4.1 mmol/L (3.5-5.1); Sodium Level 140 mmol/L (136-145)
[2023-01-31 06:46] LABS: Bedside Glucose 140 mg/dL (74-106)
[2023-01-31] MEDS: Budesonide Respules 0.5 MG/2 ML AMPUL.NEB. INHALATION (07:37)
--- NOTE | 2023-01-31 09:12 | PCM.PN.ID ---
ID ID: Patient overall clinically stable. Had uneventful night. Remains on ertapenem 1 g IV daily. No urological symptoms. No fevers. No gastrointestinal distress. Alert and oriented does not appear toxic. Vital signs reviewed remains euthermic lungs are clear heart exam S1-S2 abdomen obese but soft Route of nutrition/ use of supplements: [] Nutritional Intake: [] IV Site: [] Aldana Catheter: [] Assessment & Plan Assessment/Plan (1) Sepsis: PLAN: E. coli bacteremia, ESBL positive E. coli. Source being source. Responding nicely to ertapenem 1 g IV every 24 hours. If the patient goes back to the ECF okay to continue ertapenem 1 g IM every 24 hours with a stop date February 03
[2023-01-31] MEDS: Venlafaxine XR 75 MG Capsule PO (10:59)
[2023-01-31] MEDS: Spironolactone 25 MG Tablet PO (10:59)
[2023-01-31] MEDS: Pantoprazole Sodium 40 MG Tablet PO (10:59)
[2023-01-31] MEDS: dilTIAZem CD 240 MG Capsule PO (10:59)
[2023-01-31] MEDS: Furosemide 40 MG Tablet PO (10:59)
[2023-01-31] MEDS: Menthol/Lanolin/Calamine/Znox 113 GM Tube 1 APPLIC TOPICAL (11:01)
[2023-01-31] MEDS: Multivitamins,Therapeutic Tablet 1 TABLET PO (11:01)
[2023-01-31] MEDS: Insulin Lispro 100 UNIT/ML INSULN.PEN SC ×2 (11:08→16:31)
--- NOTE | 2023-01-31 11:23 | CASEMGMT ---
Patient has a Healthcare Power of Jet Man (HCPOA) in E-Chart. SW printed HCPOA and placed in patient's paper chart to be scanned into [employer]. Patient's HCPOA is her daughter Susan. Patient does not have a Healthcare Living Will. Navya Maciel [employer]
[2023-01-31 12:19] LABS: Bedside Glucose 199 mg/dL (74-106)
--- NOTE | 2023-01-31 13:26 | PCM.TXEXTCAR ---
Diet Diet Order/Speech Therapy: 01/27/23 01:49 Diet: Cardiac: Calorie-Controlled Food consistency:: Regular Liquid Consistency:: Regular/Thin How many daily calories?: 2000 calorie Routine Orders/Code Status Keep PO Greater than or Equal to (%): 90 Routine Lab Work: - (Fingerstick blood sugars AC nightly, Humalog subcu coverage per sliding scale: 200-250: 5 units, 251-300: 8 units, 301-350: 12 units) Code Status: Full Code Therapies Weight Bearing: Weight bearing as tolerated Physical Therapy: Eval and Treat Occupational Therapy: Eval and Treat Problem/Diagnosis (1) Sepsis: Status: Acute Code(s): A41.9 - Sepsis, unspecified organism Plan #1. Sepsis-secondary to ESBL E. coli #2 metabolic encephalopathy secondary to #1 #3 cystitis secondary to ESBL E. coli #4 non-STEMI type II #5 chronic kidney disease stage IIIb #6 type 2 diabetes #7 hyperlipidemia #8 chronic hypoxic respiratory failure secondary to COPD #9 chronic COPD #10 paroxysmal atrial fibrillation #11 narcolepsy #12 morbid obesity #13 obstructive sleep apnea #14 essential hypertension Allergies/Procedures Done in Hospital Allergies aspirin Allergy (Severe, Verified 01/26/23 22:00) Hives Penicillins Allergy (Severe, Verified 01/26/23 22:00) Anaphylaxis stops breathing Sulfa (Sulfonamide Antibiotics) Allergy (Severe, Verified 01/26/23 22:00) Anaphylaxis stops breathing latex Allergy (Verified 01/26/23 22:00) Rash Procedures: None Type of Care/Length of Stay Estimated LOS: Convalescent Care Less Than 30 days Type of Care Needed: Skilled Rehab Potential: Good Prognosis: Good Additional Orders/Day of Discharge H&P will serve as current which was dated: 01/26/23 Day of Discharge: 01/31/23 Dietary and Speech Recommendations Dietitian Recommendations/Changes: Continue 2000kcal CCD/Cardiac diet for aid in blood sugar control. Will continue to monitor oral intakes and implement additional interventions as needed. Discharge Plan Admission Admit Date/Time: 01/26/23 23:58 Primary Reason for Your Visit: Sepsis secondary to ESBL E. coli, cystitis from ESBL E. coli Attending Provider: Saqib Cardoso Primary Care Provider: Rosa Silva Consulting Providers: Suki Gasca; Dilip Daily; Peña Bailey; Michael Galan; Hernandez Douglas Instructions Additional Instructions / Restrictions: Bipap while sleepin/10, rate 12, FIO2 .30 Discharge Orders/Prescriptions Prescriptions: New albuterol sulfate 2.5 mg /3 mL (0.083 %) Solution For Nebulization 2.5 mg inhalation Q2H PRN PRN (Reason: Dyspnea, wheezing) Qty: 0 0RF pramipexole 0.25 mg Tablet 0.25 mg PO QHS Qty: 0 0RF menthol-zinc oxide [Calmoseptine] 0.44-20.6 % Ointment 1 applic topical BID Qty: 0 0RF Protocol: *Topical Application Instructions APPLICATION INSTRUCTIONS: coccyx ertapenem [Invanz] 1 gram recon soln 1 g IM DAILY Qty: 3 0RF Rx Instructions: daily for 7 days starting 02/01/23, through 02/03/23 Continued fluticasone propionate 1 SPRAY spray,suspension 1 spray NASAL QHS omeprazole 40 mg Capsule,Delayed Release(Dr/Ec) 40 mg PO DAILY multivitamin Tablet 1 tab PO DAILY acetaminophen 325 mg Tablet 650 mg PO Q4H PRN (Reason: Pain) bisacodyl 10 mg Suppository 10 mg CO DAILY PRN (Reason: Constipation) oxybutynin chloride 5 mg Tablet 5 mg PO QHS venlafaxine 75 mg capsule,extended release 24hr 75 mg PO DAILY Xarelto 15 mg Tablet 15 mg PO DINNER 30 Days Qty: 0 0RF Hold Instructions: until platelet count above 100,000 atorvastatin [Lipitor] 10 mg Tablet 10 mg PO QHS meclizine 25 mg Tablet 25 mg PO TID PRN (Reason: Vertigo) pramipexole [Mirapex] 0.25 mg Tablet 0.25 mg PO QHS modafinil 200 mg tablet 150 mg PO DAILY 2 Days Qty: 3 0RF pregabalin 50 mg Capsule 50 mg PO BID metformin 850 mg tablet 850 mg PO DAILY Arnuity Ellipta 100 mcg/actuation blister with device 1 inh INHALATION QHS methenamine hippurate 1 gram tablet 1 g PO BID sennosides-docusate sodium [Stool Softener-Stimulant Laxat] 8.6-50 mg Tablet 2 tab PO BID PRN PRN (Reason: Constipation) Qty: 0 0RF diltiazem HCl 240 mg Capsule,Extended Release 24hr 240 mg PO DAILY Qty: 0 0RF Rx Instructions: Hold for heart less than 60 or systolic blood pressure less than 110 mmHg. spironolactone 25 mg tablet 25 mg PO DAILY 30 Days Qty: 0 0RF ferrous sulfate [iron] 325 mg (65 mg iron) Tablet 325 mg PO QODAY 30 Days Qty: 0 0RF furosemide 20 mg tablet 40 mg PO DAILY 30 Days Qty: 0 0RF Rx Instructions: Hold if creatinine jumps more than 30% than baseline. insulin glargine [Basaglar KwikPen U-100 Insulin] 100 unit/mL (3 mL) insulin pen 6 unit SUBCUT QHS Discontinued triamcinolone acetonide 0.1 % Cream 1 applic TOPICAL DAILY linezolid 600 mg tablet 600 mg PO Q12H Qty: 22 0RF Hold Instructions: Order Completed Rx Instructions: ok to give with her effexor given short course of abx and low dose of SSRI insulin lispro [Humalog KwikPen Insulin] 100 unit/mL Insulin Pen See Protocol subcut TIDAC Qty: 0 0RF Protocol: 3. Sliding Scale Insulin Med Dosing Condition: 150-189 mg/dl = 1 unit Condition: 190-229 mg/dl = 2 units Condition: 230-269 mg/dl = 3 units Condition: 270-309 mg/dl = 4 units Condition: 310-349 mg/dl = 5 units Condition: 350-399 mg/dl = 6 units Condition: 400-449 mg/dl = 7 units Condition: Greater than 449 call physician Protocol Text: - Use for Total Daily Dose of Insulin 37-55 units - Obsese, infected, or steroid patients MEDIUM DOSING ALGORITHIM morphine 30 mg Tablet 30 mg PO DAILY Rx Instructions: Hold for sedation Referrals / Follow Up: Rosa Silva MD [Primary Care Provider] - Disposition Disposition (needs filled in before D/C Order can be placed): Senior Living Facility
--- NOTE | 2023-01-31 14:03 | PCM.DC.SUM ---
Providers Date of Admission: 01/26/23 Date of Discharge: 01/31/23 Primary Care Physician: Dr. Rosa Silva MD Consultations 01/27/23 11:33 Consult: Cardiology Routine Consulting Provider: Dilip Daily Reason for Consult: NSTEMI EMERGENT Consult: No Notified: Yes Date Notified: 01/27/23 Time Notified: 11:33 Method of Notification: Verbal 01/30/23 07:20 Consult: Infectious Disease Routine Consulting Provider: Michael Galan Reason for Consult: ESBL Ecoli in urine and blood EMERGENT Consult: No Notified: Yes Date Notified: 01/30/23 Time Notified: 07:20 Method of Notification: Answering Service Reason For Visit: SEPSIS, ENCEPHALOPATHY, COMPLICATED UTI Diagnosis Discharge Diagnosis (1) Sepsis: Status: Acute Code(s): A41.9 - Sepsis, unspecified organism Plan #1. Sepsis-secondary to ESBL E. coli #2 metabolic encephalopathy secondary to #1 #3 cystitis secondary to ESBL E. coli #4 non-STEMI type II #5 chronic kidney disease stage IIIb #6 type 2 diabetes #7 hyperlipidemia #8 chronic hypoxic respiratory failure secondary to COPD #9 chronic COPD #10 paroxysmal atrial fibrillation #11 narcolepsy #12 morbid obesity #13 obstructive sleep apnea #14 essential hypertension Medications at Discharge Home Medications fluticasone propionate 50 mcg/actuation nasal spray,suspension 1 spray QHS allergies 02/16/14 acetaminophen 325 mg tablet 650 mg PO Q4H PRN Pain 09/09/21 bisacodyl 10 mg rectal suppository 10 mg IN DAILY PRN Constipation 09/09/21 multivitamin 1 tab PO DAILY supplement 09/09/21 omeprazole 40 mg capsule,delayed release 40 mg PO DAILY gerd 09/09/21 oxybutynin chloride 5 mg tablet 5 mg PO QHS bladder spasms 09/09/21 venlafaxine 75 mg capsule,extended release 24 hr 75 mg PO DAILY mental health 05/25/22 rivaroxaban 15 mg tablet (Xarelto) 15 mg PO DINNER 30 days #0 tabs 05/28/22 atorvastatin 10 mg tablet (Lipitor) 10 mg PO QHS cholesterol 09/09/22 meclizine 25 mg tablet 25 mg PO TID PRN Vertigo 09/09/22 pramipexole 0.25 mg tablet (Mirapex) 0.25 mg PO QHS restless legs 09/09/22 modafinil 200 mg tablet 150 mg (0.75 x 200 mg) PO DAILY 2 days #3 tabs 09/26/22 pregabalin 50 mg capsule 50 mg PO BID NEUROPATHY 10/09/22 fluticasone furoate 100 mcg/actuation blister powder for inhalation (Arnuity Ellipta) 1 inh inhalation QHS COPD 12/23/22 metformin 850 mg tablet 850 mg PO DAILY DM 12/23/22 methenamine hippurate 1 gram tablet 1 g PO BID UTI 12/23/22 diltiazem HCl 240 mg capsule,extended release 24 hr 240 mg PO DAILY #0 caps 12/27/22 ferrous sulfate 325 mg (65 mg iron) tablet (iron) 325 mg PO QODAY supplement 30 days #0 tabs 12/27/22 furosemide 20 mg tablet 40 mg (2 x 20 mg) PO DAILY EDEMA 30 days #0 tabs 12/27/22 sennosides 8.6 mg-docusate sodium 50 mg tablet (Stool Softener-Stimulant Laxative) 2 tab PO BID PRN PRN Constipation #0 tabs 12/27/22 spironolactone 25 mg tablet 25 mg PO DAILY diuretic 30 days #0 tabs 12/27/22 insulin glargine 100 unit/mL (3 mL) subcutaneous pen (Basaglar KwikPen U-100 Insulin) 6 unit subcut QHS diabetes 01/26/23 albuterol sulfate 2.5 mg/3 mL (0.083 %) solution for nebulization 2.5 mg (3 mL) inhalation Q2H PRN PRN Dyspnea, wheezing #0 mL 01/31/23 ertapenem 1 gram solution for injection (Invanz) 1 g IM DAILY #3 ea 01/31/23 menthol 0.44 %-zinc oxide 20.6 % topical ointment (Calmoseptine) 1 applic topical BID #0 grams 01/31/23 pramipexole 0.25 mg tablet 0.25 mg PO QHS #0 tabs 01/31/23 Hospital Course Operations None Procedures None Summary of Care Provided Minutes Spent on Discharge: 32 Hospital Course: 73-year-old white female was seen in the emergency room at [place] with altered mental status from a long term. jail noted that the patient had a fever also. Labs obtained, CBC showed a normal white blood cell count, potassium was slightly low at 3.2, serum lactate was elevated at 3. UA showed positive leukocyte Estrace, 50-100 white cells were noted and +1 bacteria. There were positive nitrites. Patient was mated to PCU for sepsis, she was given IV antibiotics, she was noted to have an elevated troponin was seen in consultation by cardiology, cardiology did not feel any changes needed to be made. No plan for intervention was made. Patient improved during her hospitalization, patient had E. coli ESBL in her urine, she was seen in consultation by infectious diseases who recommended a short course of Invanz IM. On 01/31/2023, patient was seen and examined: On examination she appeared in good health and spirits, she does not appear to be in any distress. Vital signs as documented. Skin warm and dry and without overt rashes. Neck without JVD, thyroid appears normal, trachea is midline, neck is supple. Lungs clear, normal air movement was noted. Heart exam notable for regular rhythm, normal sounds and absence of murmurs, rubs or gallops. Abdomen unremarkable and without evidence of organomegaly, masses, or abdominal aortic enlargement, bowel sounds are present in all 4 quadrants, no abdominal tenderness was noted. Extremities nonedematous, no cyanosis was noted, no clubbing was noted. Neuro: Cranial nerves II through XII are grossly intact, no focal motor deficits were noted, sensation to light touch and pinprick is intact, motor exam 5/5 throughout. Psych: Patient is alert and oriented x3, she does not appear anxious or depressed, she does not appear agitated. On 01/31/2023, patient was felt to be stable for discharge back to her extended care facility Weight / BMI Weight Weight: 106.957 kg Body Mass Index (BMI) 39.2 ABG / Lab / Microbiology Data 01/31/23 05:25 01/31/23 05:25 Laboratory: Laboratory Results - last 24 hr 01/30/23 17:37: POC Glucose 157 H 01/30/23 20:53: POC Glucose 114 H 01/31/23 05:25: WBC 9.2, RBC 4.24, Hgb 12.1, Hct 38.0, MCV 89.6, MCH 28.5, MCHC 31.8 L, RDW Std Deviation 49.3 H, RDW Coeff of Melissa 15.2 H, Plt Count 248, MPV 10.0, Immature Gran % (Auto) 0.700, Neut % (Auto) 71.6 H, Lymph % (Auto) 16.3 L, [place] % (Auto) 9.2, Eos % (Auto) 1.5, Baso % (Auto) 0.7, Absolute Neuts (auto) 6.6, Absolute Lymphs (auto) 1.50, Nucleated RBC % 0, Sodium 140, Potassium 4.1, Chloride 110 H, Carbon Dioxide 24.0, Anion Gap 6, BUN 10, Creatinine 0.68, Estim Creat Clear Calc 43.74, Est GFR (MDRD) Af Amer 109, Est GFR (MDRD) Non-Af 90, BUN/Creatinine Ratio 14.8, Glucose 135 H, Calcium 8.7 01/31/23 06:28: POC Glucose 140 H 01/31/23 11:08: POC Glucose 199 H Microbiology: Microbiology 01/26/23 22:11 Blood Culture (Wb) - Arm Right Blood Culture - Final ESBL Escherichia coli 01/26/23 22:57 Urine, Catheterized Urine Culture - Final Escherichia coli 01/26/23 22:40 Blood Culture (Wb) - Left Hand Blood Culture - Preliminary No growth in 48 hours. Meaningful Use Info Meaningful Use Diagnoses (Choose all that apply): None applicable Discharge Plan Admission Admit Date/Time: 01/26/23 23:58 Primary Reason for Your Visit: Sepsis secondary to ESBL E. coli, cystitis from ESBL E. coli Attending Provider: Saqib Cardoso Primary Care Provider: Rosa Silva Consulting Providers: Suki Gasca; Dilip Daily; Peña Bailey; Michael Galan; Hernandez Douglas Instructions Additional Instructions / Restrictions: Bipap while sleepin/10, rate 12, FIO2 .30 Discharge Orders/Prescriptions Prescriptions: New albuterol sulfate 2.5 mg /3 mL (0.083 %) Solution For Nebulization 2.5 mg inhalation Q2H PRN PRN (Reason: Dyspnea, wheezing) Qty: 0 0RF pramipexole 0.25 mg Tablet 0.25 mg PO QHS Qty: 0 0RF menthol-zinc oxide [Calmoseptine] 0.44-20.6 % Ointment 1 applic topical BID Qty: 0 0RF Protocol: *Topical Application Instructions APPLICATION INSTRUCTIONS: coccyx ertapenem [Invanz] 1 gram recon soln 1 g IM DAILY Qty: 3 0RF Rx Instructions: daily for 7 days starting 02/01/23, through 02/03/23 Continued fluticasone propionate 1 SPRAY spray,suspension 1 spray NASAL QHS omeprazole 40 mg Capsule,Delayed Release(Dr/Ec) 40 mg PO DAILY multivitamin Tablet 1 tab PO DAILY acetaminophen 325 mg Tablet 650 mg PO Q4H PRN (Reason: Pain) bisacodyl 10 mg Suppository 10 mg IN DAILY PRN (Reason: Constipation) oxybutynin chloride 5 mg Tablet 5 mg PO QHS venlafaxine 75 mg capsule,extended release 24hr 75 mg PO DAILY Xarelto 15 mg Tablet 15 mg PO DINNER 30 Days Qty: 0 0RF Hold Instructions: until platelet count above 100,000 atorvastatin [Lipitor] 10 mg Tablet 10 mg PO QHS meclizine 25 mg Tablet 25 mg PO TID PRN (Reason: Vertigo) pramipexole [Mirapex] 0.25 mg Tablet 0.25 mg PO QHS modafinil 200 mg tablet 150 mg PO DAILY 2 Days Qty: 3 0RF pregabalin 50 mg Capsule 50 mg PO BID metformin 850 mg tablet 850 mg PO DAILY Arnuity Ellipta 100 mcg/actuation blister with device 1 inh INHALATION QHS methenamine hippurate 1 gram tablet 1 g PO BID sennosides-docusate sodium [Stool Softener-Stimulant Laxat] 8.6-50 mg Tablet 2 tab PO BID PRN PRN (Reason: Constipation) Qty: 0 0RF diltiazem HCl 240 mg Capsule,Extended Release 24hr 240 mg PO DAILY Qty: 0 0RF Rx Instructions: Hold for heart less than 60 or systolic blood pressure less than 110 mmHg. spironolactone 25 mg tablet 25 mg PO DAILY 30 Days Qty: 0 0RF ferrous sulfate [iron] 325 mg (65 mg iron) Tablet 325 mg PO QODAY 30 Days Qty: 0 0RF furosemide 20 mg tablet 40 mg PO DAILY 30 Days Qty: 0 0RF Rx Instructions: Hold if creatinine jumps more than 30% than baseline. insulin glargine [Basaglar Mindy U-100 Insulin] 100 unit/mL (3 mL) insulin pen 6 unit SUBCUT QHS Discontinued triamcinolone acetonide 0.1 % Cream 1 applic TOPICAL DAILY linezolid 600 mg tablet 600 mg PO Q12H Qty: 22 0RF Hold Instructions: Order Completed Rx Instructions: ok to give with her effexor given short course of abx and low dose of SSRI insulin lispro [Humalog KwikPen Insulin] 100 unit/mL Insulin Pen See Protocol subcut TIDAC Qty: 0 0RF Protocol: 3. Sliding Scale Insulin Med Dosing Condition: 150-189 mg/dl = 1 unit Condition: 190-229 mg/dl = 2 units Condition: 230-269 mg/dl = 3 units Condition: 270-309 mg/dl = 4 units Condition: 310-349 mg/dl = 5 units Condition: 350-399 mg/dl = 6 units Condition: 400-449 mg/dl = 7 units Condition: Greater than 449 call physician Protocol Text: - Use for Total Daily Dose of Insulin 37-55 units - Obsese, infected, or steroid patients MEDIUM DOSING ALGORITHIM morphine 30 mg Tablet 30 mg PO DAILY Rx Instructions: Hold for sedation Referrals / Follow Up: Rosa Silva MD [Primary Care Provider] - Disposition Disposition (needs filled in before D/C Order can be placed): [facility] Charges/Coding Visit Charges Inpatient E&M: 64816 Disch Hosp >30min
--- NOTE | 2023-01-31 14:31 | CASEMGMT ---
Discharge Planning Discharge orders sent to [facility] via [facility]. Lizz Faith, Discharge Planning Asst.
--- NOTE | 2023-01-31 15:49 | CASEMGMT ---
Patient will be discharged back to [facility] under skilled level of care. Navya BUNCH
[2023-01-31] MEDS: Rivaroxaban 15 MG Tablet PO (16:33)
--- NOTE | 2023-01-31 16:55 | CASEMGMT ---
Discharge Planning Discharge orders, signed med list, and transport time sent to [facility] via [facility]. Patient will be transported via by [facility] at . Patient, her sister, and nursing notified. Lizz Faith, Discharge Planning Asst.
[2023-01-31 17:08] LABS: Bedside Glucose 161 mg/dL (74-106)
[2023-01-31] MEDS: Acetaminophen 325 MG Tablet 650 MG PO (20:35)
--- NOTE | 2023-01-31 21:14 | NURSING ---
report given to Rachel at [facility].
[2023-01-31 23:32] LABS: Bedside Glucose 229 mg/dL (74-106)
== END 2023-01-31 22:05 | disposition skilled nursing facility (03) | DRG 871 ==
LOC: ED 01-27 00:22 → PCU 01-27 00:38
PROVIDERS: Family Medicine; Admitting Provider Family Medicine; Emergency Provider Emergency Medicine; PCP Internal Medicine; Visit Provider Internal Medicine
DX: A41.51 Sepsis due to Escherichia coli [E. coli] (principal); I21.A1 Myocardial infarction type 2; G93.41 Metabolic encephalopathy; J96.11 Chronic respiratory failure with hypoxia; D69.3 Immune thrombocytopenic purpura; I13.0 Hypertensive heart and chronic kidney disease with heart failure and stage 1 through stage 4 chronic kidney disease, or unspecified chronic kidney disease; Z68.41 Body mass index [BMI] 40.0-44.9, adult; N30.00 Acute cystitis without hematuria; Z16.12 Extended spectrum beta lactamase (ESBL) resistance; E11.22 Type 2 diabetes mellitus with diabetic chronic kidney disease; D50.9 Iron deficiency anemia, unspecified; I50.9 Heart failure, unspecified; I48.0 Paroxysmal atrial fibrillation; G25.81 Restless legs syndrome; N18.32 Chronic kidney disease, stage 3b; Z79.4 Long term (current) use of insulin; R65.20 Severe sepsis without septic shock; J44.9 Chronic obstructive pulmonary disease, unspecified; E11.42 Type 2 diabetes mellitus with diabetic polyneuropathy; E66.01 Morbid (severe) obesity due to excess calories; M06.9 Rheumatoid arthritis, unspecified; E78.00 Pure hypercholesterolemia, unspecified; G47.33 Obstructive sleep apnea (adult) (pediatric); E87.6 Hypokalemia; K21.9 Gastro-esophageal reflux disease without esophagitis; F32.A Depression, unspecified; I89.0 Lymphedema, not elsewhere classified; G47.419 Narcolepsy without cataplexy; G89.4 Chronic pain syndrome; Z79.51 Long term (current) use of inhaled steroids; Z79.01 Long term (current) use of anticoagulants; Z99.81 Dependence on supplemental oxygen
CPT/HCPCS: 36415; 71045; 80048; 80053; 81001; 82962; 83605; 83735; 84100; 84145; 84484; 85025; 85610; 85730; 87040; 87077; 87086; 87088; 87186; 93005; 94002; 94003; 94640; 94660; 94668; 94762; 97110; 97162; 97166; 97530; 97802; 99285; J7030; J7040; J7050; A4216; J2405

== ENCOUNTER → 2023-02-02 | Outpatient (REF) | payer MEDICARE, MEDICAID, SELFPAY | LOC: OLS.SW 09:25 | PROVIDERS: PCP Internal Medicine; Referring Provider Internal Medicine; Visit Provider Internal Medicine | DX: R19.7 Diarrhea, unspecified (principal) ==

== ENCOUNTER → 2023-02-15 | Outpatient (REF) | payer MEDICARE, MEDICAID, SELFPAY ==
[2023-02-16 10:36] LABS: Absolute Lymphocyte Count 0.93 X10^3/uL (0.83-4.51); Absolute Neutrophil Count 5.7 X10^3/uL (2.0-7.7); Anion Gap 6 (5-15); BUN 17 mg/dL (7-18); BUN/Creat Ratio 22.1 RATIO (10-20); Basophil# 0.02 X10^3/uL; Basophil% 0.3 % (0-1); Chloride 103 mmol/L (98-107); Creatinine, Serum 0.77 mg/dL (0.55-1.02); EST Glomerular Filtration Rate 78 mL/min (>60); Eosinophil# 0.07 X10^3/uL; Eosinophils% 0.9 % (0-5); Est Glom Filt Rate - Afr Amer 94 mL/min (>60); Glucose 198 mg/dL (74-106); Hematocrit 34.4 % (37-47); Hemoglobin 11.3 g/dL (12.0-15.0); Lymphocyte # 0.93 X10^3/ul (0.83-4.51); Lymphocyte % 12.4 % (19-41); Mean Corp Hgb Conc 32.8 g/dL (32-36); Mean Corpuscular Hgb 29.2 pg (27.0-32.0); Mean Corpuscular Volume 88.9 fL (81-99); Monocyte# 0.74 X10^3/uL; Monocyte% 9.8 % (0-10); NRBC Flagged by Analyzer 0 % (0-5); Neutrophil # 5.73 X10^3/uL (2.7-7.7); Neutrophil % 76.2 % (47-70); Platelet Count 138 K/mm3 (150-450); RBC Distribution Width CV 15.9 % (11.6-14.6); RBC Distribution Width SD 51.5 fl (35.1-43.9); Red Blood Count 3.87 M/mm3 (4.2-5.4); Sodium Level 137 mmol/L (136-145); White Blood Count 7.5 K/mm3 (4.4-11.0)
== END ==
LOC: OLS.SW 23:45
PROVIDERS: PCP Internal Medicine; Visit Provider Internal Medicine
DX: J02.9 Acute pharyngitis, unspecified (principal)
CPT/HCPCS: 36415; 80048; 85025; 87880

== ENCOUNTER 2023-02-16 21:38 | Emergency (ER) | payer MEDICARE, MEDICAID, SELFPAY ==
[2023-02-16 21:42] VITALS: BP 136/57; PULSE 93; RESP 20; TEMP 36.3; O2SAT 97; BMI 46.6
--- NOTE | 2023-02-16 22:08 | CT_ITS ---
INDICATION: mass EXAMINATION: CT NECK WITH CONTRAST - CT Soft Tissue Neck W/ Contrast Injection TECHNIQUE: Helically acquired images were obtained of the neck following IV contrast. A radiation dose optimization technique was used for this scan. IV Contrast dosage and agent: 100 mL of Isovue-370. Radiation CTDIvol 17.25 Radiation DLP 500.01 COMPARISON: Prior comparison exam dated January 26, 2023; chest x-ray. FINDINGS: Minimal soft tissue enhancement with the thoracic aortic arch measuring 31 Hounsfield units. Contrast resolution is suboptimal. NASOPHARYNX: Normal. SUPRAHYOID NECK: Unremarkable oropharynx, oral cavity, parapharyngeal space, and retropharyngeal space. INFRAHYOID NECK: Large left infrahyoid neck mass appears to extend from the left thyroid lobe. THYROID: Normal right thyroid lobe. No normal left thyroid lobe exemplified. Large mass lesion roughly 2.9 x 5.1 x 6.5 cm. There is decreased density relative to the right thyroid lobe. There is variable density within the mass potentially representing mild heterogeneous enhancement. The mass contains a roughly 2.5 cm ring of calcifications in the inferior periphery of the mass. The mass extends from the hyoid bone to the superior edge of the left clavicular head. SALIVARY GLANDS: Unremarkable. LYMPH NODES: Asymmetric left submandibular and anterior level 2A lymph nodes less than 1 cm in short axis. The largest measures 8 mm, left submandibular lymph node. There are some supraclavicular lymph nodes. VASCULAR STRUCTURES: Unremarkable. VISUALIZED PORTIONS OF THE ORBITS, PARANASAL SINUSES, MASTOID AIR CELLS AND SKULL BASE: Unremarkable. BONES: C5-6 advanced degenerative endplate changes. No fracture or focal osseous lesion. THORACIC INLET: Clear lung apices. The right subclavian artery originates from the distal aortic arch on the left side of the patient traversing midline posterior to the esophagus; aberrant right subclavian artery. This is a relatively common variant anatomy which may potentially be associated with dysphasia. CT/Soft Tissue Neck WITH Contrast IMPRESSION: Highly suspicious left thyroid mass suggesting malignancy. Associated prominent lymph nodes to include supraclavicular lymphadenopathy. No airway narrowing. Aberrant right subclavian artery. Electronically Signed: Hai Baca DO at 23:46 EDT ,
[2023-02-16 22:24] LABS: Absolute Lymphocyte Count 0.93 X10^3/uL (0.83-4.51); Absolute Neutrophil Count 5.2 X10^3/uL (2.0-7.7); Basophil# 0.03 X10^3/uL; Basophil% 0.4 % (0-1); Eosinophil# 0.06 X10^3/uL; Eosinophils% 0.8 % (0-5); Hematocrit 31.7 % (37-47); Hemoglobin 10.4 g/dL (12.0-15.0); Lymphocyte # 0.93 X10^3/ul (0.83-4.51); Lymphocyte % 13.1 % (19-41); Mean Corp Hgb Conc 32.8 g/dL (32-36); Mean Corpuscular Volume 88.3 fL (81-99); Mean Platelet Vol. 10.7 fl (6.2-12.0); Monocyte# 0.86 X10^3/uL; Monocyte% 12.1 % (0-10); NRBC Flagged by Analyzer 0 % (0-5); Neutrophil # 5.21 X10^3/uL (2.7-7.7); Neutrophil % 73.3 % (47-70); Platelet Count 130 K/mm3 (150-450); RBC Distribution Width CV 15.7 % (11.6-14.6); RBC Distribution Width SD 50.6 fl (35.1-43.9); Red Blood Count 3.59 M/mm3 (4.2-5.4); White Blood Count 7.1 K/mm3 (4.4-11.0)
[2023-02-16 22:26] LABS: POSITIVE COUNT NO; POSITIVE DIFFERENTIAL NO; POSITIVE MORPHOLOGY NO
[2023-02-16 22:43] LABS: Anion Gap 6 (5-15); BUN 18 mg/dL (7-18); BUN/Creat Ratio 21.4 RATIO (10-20); Calcium,Total 8.9 mg/dL (8.5-10.1); Chloride 105 mmol/L (98-107); Creatinine, Serum 0.84 mg/dL (0.55-1.02); EST Glomerular Filtration Rate 70 mL/min (>60); Est Glom Filt Rate - Afr Amer 85 mL/min (>60); Estimated Creatinine Clearance 41.57 ml/min; Glucose 166 mg/dL (74-106); Sodium Level 137 mmol/L (136-145)
--- NOTE | 2023-02-17 00:04 | EDS_ITS ---
HPI History of Present Illness Chief Complaint: Sore Throat Detail of Chief Complaint: Left neck mass Informant: patient Onset/Context/Timing Onset: Days Current Severity: Moderate Maximum Severity: Moderate Narrative Narrative: Patient presents secondary to painful lump on the left side of her neck. She states she first noticed it 3 days ago. She believes she had some x-rays done but was sent in tonight due to raspy voice. Patient states she feels that there is increased pressure in her throat but she does not have a sore throat or any difficulty swallowing. [facility] Medical History Acidosis, lactic Acute ITP Anemia Anxiety and depression Arthritis Asthma Atrial fibrillation Back pain Benign hypertension Bilateral lower extremity edema BiPAP (biphasic positive airway pressure) dependence Cellulitis of left foot Cholelithiasis Chronic acquired lymphedema Chronic back pain Chronic kidney disease, stage 3b Chronic malnutrition Chronic pain Chronic stasis dermatitis of left lower extremity Congestive heart failure (CHF) COPD (chronic obstructive pulmonary disease) Decreased pedal pulses Depression Diabetes Diabetic ulcer of left foot Diabetic ulcer of right foot Diabetic ulcer of toe of left foot Dialysis patient DVT (deep venous thrombosis) Elephantiasis GERD (gastroesophageal reflux disease) Hammertoe of left foot Hammertoe of left foot Heartburn High cholesterol History of edema History of kidney stones History of pain when walking History of stress test HLD (hyperlipidemia) Hoarseness Hypertension Hypertensive chronic kidney disease with stage 1 through stage 4 chronic kidney disease, or unspecified chronic kidney disease Hypokalemia Increased BMI Insulin dependent diabetes mellitus Leg cramps Localized edema MRSA infection Non-smoker Nonhealing ulcer of left lower extremity with fat layer exposed Nonhealing ulcer of right lower extremity with fat layer exposed shelter resident Obstructive sleep apnea (adult) (pediatric) On home oxygen therapy RILEY (obstructive sleep apnea) Osteoporosis PAF (paroxysmal atrial fibrillation) Peripheral neuropathy Renal lithiasis Rheumatic fever Rheumatoid arthritis RLS (restless legs syndrome) Seasonal allergies Shortness of breath on exertion Sleep apnea Type 2 diabetes mellitus Type 2 diabetes mellitus with diabetic polyneuropathy Type 2 diabetes mellitus with diabetic polyneuropathy Ulcer of left foot with fat layer exposed Ulcer of right foot with fat layer exposed Venous insufficiency Venous stasis ulcer of right thigh with fat layer exposed Venous ulcer of left lower extremity with varicose veins Venous ulcer of right lower extremity with varicose veins Home Medications fluticasone propionate 50 mcg/actuation nasal spray,suspension 1 spray QHS allergies 02/16/14 [History Last Taken 12/22/22] acetaminophen 325 mg tablet 650 mg PO Q4H PRN Pain 09/09/21 [History Last Taken 10/08/22] bisacodyl 10 mg rectal suppository 10 mg NV DAILY PRN Constipation 09/09/21 [H istory Last Taken Unknown] multivitamin 1 tab PO DAILY supplement 09/09/21 [History Last Taken 12/23/22] omeprazole 40 mg capsule,delayed release 40 mg PO DAILY gerd 09/09/21 [History Last Taken 12/23/22] oxybutynin chloride 5 mg tablet 5 mg PO QHS bladder spasms 09/09/21 [History Last Taken 12/22/22] venlafaxine 75 mg capsule,extended release 24 hr 75 mg PO DAILY mental health 05/25/22 [History Last Taken 12/23/22] rivaroxaban 15 mg tablet (Xarelto) 15 mg PO DINNER 30 days #0 tabs 05/28/22 [Rx Last Taken 12/22/22] atorvastatin 10 mg tablet (Lipitor) 10 mg PO QHS cholesterol 09/09/22 [History Last Taken 12/22/22] meclizine 25 mg tablet 25 mg PO TID PRN Vertigo 09/09/22 [History Last Taken Unknown] pramipexole 0.25 mg tablet (Mirapex) 0.25 mg PO QHS restless legs 09/09/22 [History Last Taken 12/22/22] modafinil 200 mg tablet 150 mg (0.75 x 200 mg) PO DAILY 2 days #3 tabs 09/26/22 [Rx Last Taken 12/23/22] pregabalin 50 mg capsule 50 mg PO BID NEUROPATHY 10/09/22 [History Last Taken 12/23/22] fluticasone furoate 100 mcg/actuation blister powder for inhalation (Arnuity Ellipta) 1 inh inhalation QHS COPD 12/23/22 [History Last Taken 12/22/22] metformin 850 mg tablet 850 mg PO DAILY DM 12/23/22 [History Last Taken 12/23/22] methenamine hippurate 1 gram tablet 1 g PO BID UTI 12/23/22 [History Last Taken 12/23/22] diltiazem HCl 240 mg capsule,extended release 24 hr 240 mg PO DAILY #0 caps 12/27/22 [Rx Last Taken Unknown] ferrous sulfate 325 mg (65 mg iron) tablet (iron) 325 mg PO QODAY supplement 30 days #0 tabs 12/27/22 [Rx Last Taken 12/23/22] furosemide 20 mg tablet 40 mg (2 x 20 mg) PO DAILY EDEMA 30 days #0 tabs 12/27/22 [Rx Last Taken 12/22/22] sennosides 8.6 mg-docusate sodium 50 mg tablet (Stool Softener-Stimulant Laxative) 2 tab PO BID PRN PRN Constipation #0 tabs 12/27/22 [Rx Last Taken Unknown] spironolactone 25 mg tablet 25 mg PO DAILY diuretic 30 days #0 tabs 12/27/22 [Rx Last Taken 12/23/22] insulin glargine 100 unit/mL (3 mL) subcutaneous pen (Basaglar KwikPen U-100 Insulin) 6 unit subcut QHS diabetes 01/26/23 [History Last Taken Unknown] albuterol sulfate 2.5 mg/3 mL (0.083 %) solution for nebulization 2.5 mg (3 mL) inhalation Q2H PRN PRN Dyspnea, wheezing #0 mL 01/31/23 [Rx Last Taken Unknown] ertapenem 1 gram solution for injection (Invanz) 1 g IM DAILY #3 ea 01/31/23 [Rx Last Taken Unknown] menthol 0.44 %-zinc oxide 20.6 % topical ointment (Calmoseptine) 1 applic topical BID #0 grams 01/31/23 [Rx Last Taken Unknown] pramipexole 0.25 mg tablet 0.25 mg PO QHS #0 tabs 01/31/23 [Rx Last Taken Unknown] Allergy/AdvReac Type Severity Reaction Status Date / Time aspirin Allergy Severe Hives Verified 02/16/23 21:48 Penicillins Allergy Severe Anaphylaxis Verified 02/16/23 21:48 Sulfa (Sulfonamide Allergy Severe Anaphylaxis Verified 02/16/23 21:48 Antibiotics) latex Allergy Rash Verified 02/16/23 21:48 Family History Mother Heart disease Cancer pancreatic Father Heart disease CVA (cerebral vascular accident) Hypertension Cancer liver, lung Surgical History History of appendectomy History of cardiac catheterization History of cholecystectomy History of ERCP History of hysterectomy Hx of dilation and curettage Hx of toe surgery S/P laparoscopic cholecystectomy Social History housing: group home Smoking Status: Never smoker alcohol intake: never substance use type: does not use additional social history: currently residing at [facility] ROS ED Constitutional Constitutional ED: Denies chills or fever(s) Eyes Eyes: Denies change in vision or discharge from eye(s) ENT ENT ED: Reports other Details: Left neck mass ; Denies discharge from eye(s), rhinorrhea or sore throat Cardiovascular Cardiovascular: Denies chest pain or palpitations Respiratory/Chest Respiratory/Chest: Denies cough or dyspnea Gastrointestinal Gastrointestinal: Denies abdominal pain, nausea or vomiting Genitourinary Genitourinary ED: Denies dysuria Musculoskeletal Musculoskeletal: Denies back pain or extremity pain Integumentary Denies Abrasions or rash Neurologic Neurologic: Denies headache(s) or weakness Allergic/Immunologic Allergic/Immunologic ED: Denies lip swelling or urticaria EXAM Physical Exam Narrative Exam Narrative: Patient lying in bed with head of bed elevated approximately 30 degrees. Speaks with a strong voice and is tolerating secretions well. Const Vital Signs: 02/16/23 21:42 02/17/23 00:26 Temperature 97.4 F L Temperature Source Temporal Pulse Rate 93 77 Respiratory Rate 20 H 18 Blood Pressure 136/57 H 120/51 L Blood Pressure Mean 83 Pulse Ox 97 95 Oxygen Delivery Method Room Air Positive well nourished and well developed General Appearance ED: well developed HEENT Reports normocephalic and head/scalp atraumatic Eyes PERRL and EOMs intact bilaterally Neck supple Neck Narrative: Firm area to the left anterior lateral neck. No overlying skin change. Chest Wall inspection of chest normal and palpation of chest normal Resp normal respiratory effort and clear to auscultation bilaterally Cardio regular rate and regular rhythm GI normal to inspection, nondistended, normoactive bowel sounds Palpation: soft Extremity normal to inspection Neuro oriented x3 and no sensory deficits noted Sensorium / Orientation: alert Motor Exam: strength 5/5 throughout Psych mental status grossly normal Skin no rashes or lesions noted MDM MDM MDM Narrative Medical decision making narrative: Labwork obtained to evaluate for leukocytosis, anemia, and electrolyte derangement. CT of the neck with IV contrast obtained to evaluate mass. Lab Data Attestation: I reviewed the patient's lab results. Labs: Laboratory Results - last 24 hr 02/16/23 22:20 WBC 7.1 RBC 3.59 L Hgb 10.4 L Hct 31.7 L MCV 88.3 MCH 29.0 MCHC 32.8 RDW Std Deviation 50.6 H RDW Coeff of Melissa 15.7 H Plt Count 130 L MPV 10.7 Immature Gran % (Auto) 0.300 Neut % (Auto) 73.3 H Lymph % (Auto) 13.1 L Curry % (Auto) 12.1 H Eos % (Auto) 0.8 Baso % (Auto) 0.4 Absolute Neuts (auto) 5.2 Absolute Lymphs (auto) 0.93 Nucleated RBC % 0 Sodium 137 Potassium 4.0 Chloride 105 Carbon Dioxide 26.0 Anion Gap 6 BUN 18 Creatinine 0.84 Estim Creat Clear Calc 41.57 Est GFR (MDRD) Af Amer 85 Est GFR (MDRD) Non-Af 70 BUN/Creatinine Ratio 21.4 H Glucose 166 H Calcium 8.9 Radiography Diagnostic Testing: Clinical Impression(s) from Imaging Studies Soft Tissue Neck CT 02/16/23 22:08 IMPRESSION: Highly suspicious left thyroid mass suggesting malignancy. Associated prominent lymph nodes to include supraclavicular lymphadenopathy. No airway narrowing. Aberrant right subclavian artery. Electronically Signed: Hai Baca DO at 23:46 EDT , Treatment and Re-Evaluation :: CBC was normal white count at 7.1 with a hemoglobin of 10.4. Platelet count is 130,000. Chemistry studies are unremarkable. CT of the neck with contrast reveals a highly suspicious left thyroid mass suggesting malignancy. Prominent lymph nodes are noted in the supraclavicular area. No airway narrowing. Test results are discussed with the patient. She presents late on a Saturday night. I will put an order in for a fast pass oncology referral and they should contact her earlier in the week for further work-up. Patient voices understanding and agreement. Thyroid studies will be drawn prior to discharge. I did leave a note for [facility] staff to's please discussed the case with Dr. Silva, patient's primary care physician. If possible I recommend holding her Xarelto to prevent hematoma formation as well as preparation for expected biopsy. Discharge Plan Triage Chief Complaint: Sore Throat ED Provider: Aminta Curtis Dx/Rx/DC Orders Clinical Impression: Thyroid mass Instructions: The Role of the Thyroid Gland, Diagnosing a Thyroid Problem Prescriptions: No Action fluticasone propionate 1 SPRAY spray,suspension 1 spray NASAL QHS omeprazole 40 mg Capsule,Delayed Release(Dr/Ec) 40 mg PO DAILY multivitamin Tablet 1 tab PO DAILY acetaminophen 325 mg Tablet 650 mg PO Q4H PRN (Reason: Pain) bisacodyl 10 mg Suppository 10 mg NV DAILY PRN (Reason: Constipation) oxybutynin chloride 5 mg Tablet 5 mg PO QHS venlafaxine 75 mg capsule,extended release 24hr 75 mg PO DAILY Xarelto 15 mg Tablet 15 mg PO DINNER 30 Days Qty: 0 0RF Hold Instructions: until platelet count above 100,000 atorvastatin [Lipitor] 10 mg Tablet 10 mg PO QHS meclizine 25 mg Tablet 25 mg PO TID PRN (Reason: Vertigo) pramipexole [Mirapex] 0.25 mg Tablet 0.25 mg PO QHS modafinil 200 mg tablet 150 mg PO DAILY 2 Days Qty: 3 0RF pregabalin 50 mg Capsule 50 mg PO BID metformin 850 mg tablet 850 mg PO DAILY Arnuity Ellipta 100 mcg/actuation blister with device 1 inh INHALATION QHS methenamine hippurate 1 gram tablet 1 g PO BID sennosides-docusate sodium [Stool Softener-Stimulant Laxat] 8.6-50 mg Tablet 2 tab PO BID PRN PRN (Reason: Constipation) Qty: 0 0RF diltiazem HCl 240 mg Capsule,Extended Release 24hr 240 mg PO DAILY Qty: 0 0RF Rx Instructions: Hold for heart less than 60 or systolic blood pressure less than 110 mmHg. spironolactone 25 mg tablet 25 mg PO DAILY 30 Days Qty: 0 0RF ferrous sulfate [iron] 325 mg (65 mg iron) Tablet 325 mg PO QODAY 30 Days Qty: 0 0RF furosemide 20 mg tablet 40 mg PO DAILY 30 Days Qty: 0 0RF Rx Instructions: Hold if creatinine jumps more than 30% than baseline. insulin glargine [Basaglar KwikPen U-100 Insulin] 100 unit/mL (3 mL) insulin pen 6 unit SUBCUT QHS albuterol sulfate 2.5 mg /3 mL (0.083 %) Solution For Nebulization 2.5 mg inhalation Q2H PRN PRN (Reason: Dyspnea, wheezing) Qty: 0 0RF pramipexole 0.25 mg Tablet 0.25 mg PO QHS Qty: 0 0RF menthol-zinc oxide [Calmoseptine] 0.44-20.6 % Ointment 1 applic topical BID Qty: 0 0RF Protocol: *Topical Application Instructions APPLICATION INSTRUCTIONS: coccyx ertapenem [Invanz] 1 gram recon soln 1 g IM DAILY Qty: 3 0RF Rx Instructions: daily for 7 days starting 02/01/23, through 02/03/23 Other Ambulatory Orders: Fast Pass: Oncology Referral [facility] (Routine) Facility: [facility] - Location: [facility] Ordered By: Dr. Aminta Curtis Primary Care Provider: Rosa Silva Referrals: Rosa Silva MD [Primary Care Provider] - Juan Jose Guerrier MD [Med Staff - Active Staff] - As soon as possible Disposition Disposition: Home, Self Care
[2023-02-17] MEDS: HYDROcodone Bitartrate/Apap 5/325 Tablet PO (00:25)
[2023-02-17 00:26] VITALS: BP 120/51; PULSE 77; RESP 18; O2SAT 95
[2023-02-17 00:51] LABS: Thyroid Stim Hormone (TSH) < 0.01 uIU/mL (0.358-3.74)
[2023-02-18 08:25] LABS: T3 Total - Triiodothyronine 1.52 ng/mL (0.6-1.81)
== END 2023-02-17 03:39 | disposition skilled nursing facility (03) ==
PROVIDERS: Emergency Provider Emergency Medicine; PCP Internal Medicine; Visit Provider Emergency Medicine
DX: E07.9 Disorder of thyroid, unspecified (principal); J44.9 Chronic obstructive pulmonary disease, unspecified; I13.0 Hypertensive heart and chronic kidney disease with heart failure and stage 1 through stage 4 chronic kidney disease, or unspecified chronic kidney disease; I50.9 Heart failure, unspecified; E11.42 Type 2 diabetes mellitus with diabetic polyneuropathy; E11.22 Type 2 diabetes mellitus with diabetic chronic kidney disease; I48.0 Paroxysmal atrial fibrillation; Z79.4 Long term (current) use of insulin; N18.32 Chronic kidney disease, stage 3b; R22.1 Localized swelling, mass and lump, neck; E78.00 Pure hypercholesterolemia, unspecified; G47.33 Obstructive sleep apnea (adult) (pediatric); Z99.81 Dependence on supplemental oxygen; Z79.84 Long term (current) use of oral hypoglycemic drugs; Z79.01 Long term (current) use of anticoagulants; Z79.899 Other long term (current) drug therapy
CPT/HCPCS: 36415; 70491; 80048; 84436; 84443; 84480; 85025; 99285; Q9967; A4216

== ENCOUNTER → 2023-02-25 | Outpatient (CLI) | payer MEDICARE, MEDICAID, SELFPAY ==
--- NOTE | 2023-02-25 13:45 | FLU_PTH ---
PATIENT: SANDY ORONA LOC: [facility] U#:[id number] AGE/SX: 73/F ROOM: RE02/25/[address]: Dr. Hai Paiz MD : [id number] BED: DIS: 02/25/2023 SPEC #: [id number] RECD: 02/25/23 16:37 STATUS: FELIPA FORTINO #: [id number] ALEJANDRA: 02/25/23 13:[address]: Hai Paiz DEPT: CYTOLOGY RECD BY: Gudelia Stephens ENTERED: 02/26/23 09:46 SP TYPE: Fluid OTHR DR: Dr. Rosa Silva MD Tissues: A - Thyroid gland, NOS B - Thyroid gland, NOS C - Thyroid gland, NOS D - Thyroid gland, NOS E - Thyroid gland, NOS F - Thyroid gland, NOS Procedures: Special Stain Group II Surgery Specimen Level IV Cytospin Fluid Cytology Other HEADER OPERATION: Fine needle aspiration left thyroid x3 PRE-OP DIAGNOSIS: Thyroid nodules TISSUE SUBMITTED: A - Left thyroid mid inferior fluid, B - Left thyroid mid inferior x4 slides, C - Left thyroid superior lateral fluid, D - Left thyroid superior lateral x4 slides, E - Left thyroid superior medial fluid, F - Left thyroid superior medial x4 slides DIAGNOSIS CYTOLOGY A. 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 Adequate for evaluation. See comment. B. 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 Adequate for evaluation. See comment. C. Left thyroid superior lateral nodule fluid, fine needle aspiration (cytospin and cell block): Atypical follicular cells of undetermined significance with Hurthle cell features (Wingate Category?III). Adequate for evaluation. See comment. D. Left thyroid superior lateral nodule, fine needle aspiration (smears): Atypical follicular cells of undetermined significance with Hurthle cell features (Wingate Category?III). Adequate for evaluation. See comment. E. 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 Adequate for evaluation. See comment. F. 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 Adequate for evaluation. See comment. SJ:gabino 02/27/2023 COMMENT Correlation with clinical, radiologic findings and appropriate follow up are necessary. The Wingate System for thyroid diagnostic categorization was used in the evaluation of this case. Multi-gene next-generation sequencing panel (Afirma) is recommended for this lesion. This recommendation was communicated to the physician's office. Case has been reviewed in consultation with Dr. Richardson who concurs with the above diagnosis. IDC:AM CYTOLOGY STUDY Slides are reviewed. CYTOLOGY GROSS A - Received is 30 ml of red cloudy fluid labeled with the patient's name and and designated per the requisition as left thyroid mid inferior. Submitted for cytology preparation including cell block. B - Received are four smears labeled with the patient's name and designated per the requisition as left thyroid mid inferior. Submitted for staining. C - Received is 10 ml of red cloudy fluid labeled with the patient's name and and designated per the requisition as left thyroid superior lateral. Submitted for cytology preparation including cell block. D - Received are four smears labeled with the patient's name and designated per the requisition as left thyroid superior lateral. Submitted for staining. E - Received is 30 ml of red cloudy fluid labeled with the patient's name and and designated per the requisition as left thyroid superior medial. Submitted for cytology preparation including cell block. F - Received are four smears labeled with the patient's name and designated per the requisition as left thyroid superior medial. Submitted for staining. / gabino 02/26/2023 TC:5 CPT: 67425 x6, 29964 x3
== END | disposition home or self-care (01) ==
LOC: LABSPEC 16:42
PROVIDERS: PCP Internal Medicine; Referring Provider Surgery; Visit Provider Surgery
DX: E04.2 Nontoxic multinodular goiter (principal)
CPT/HCPCS: 88108; 88161; 88305; 88313

== ENCOUNTER → 2023-03-01 | Outpatient (CLI) | payer MEDICARE, MEDICAID, SELFPAY ==
--- NOTE | 2023-03-01 14:27 | US_ITS ---
STUDY: THYROID ULTRASOUND REASON FOR EXAM: Female, 73 years old. thyroid nodules -- check lymph nodes as well TECHNIQUE: Ultrasound evaluation of the thyroid was performed with real-time and static marmolejo-scale imaging. COMPARISON: None. FINDINGS: RIGHT LOBE: The right lobe of the thyroid gland measures 2.7 x 1.5 x 1.7 cm. There is a heterogeneous echotexture. There are no demonstrated solid, cystic or complex lesions. LEFT LOBE: The left lobe of the thyroid gland measures 8.5 x 3.9 x 3.9 cm. There is a heterogeneous echotexture. Nodule 1:28 x 16 x 24 mm solid heterogeneous hypoechoic wider than tall smoothly marginated nodule with no echogenic foci (TR 4) in the superior left lobe for which ultrasound-guided biopsy is recommended. Nodule 2:18 x 10 x 13 mm solid isoechoic wider than tall smoothly marginated nodule with no echogenic foci (TR 3) in the mid left lobe and follow-up ultrasound is recommended in one year. Nodule 3:28 x 26 x 26 mm solid isoechoic wider than tall smoothly marginated nodule with punctate echogenic foci (TR 4) for which ultrasound-guided biopsy is recommended. Nodule 4:20 x 15 x 22 mm solid isoechoic wider than tall smoothly marginated nodule with no echogenic foci (TR 3) in the inferior left lobe and follow-up ultrasound is recommended in one year. ISTHMUS: The isthmus measures 3 mm thick. . The regional lymph nodes are normal. US/Thyroid IMPRESSION: Multinodular thyroid gland with dominant nodule left lobe for which ultrasound-guided biopsy is recommended. Follow-up ultrasound is recommended in one year. Electronically Signed: Everett Raman MD at 22:48 EDT ,
== END | disposition home or self-care (01) ==
LOC: US 14:25
PROVIDERS: PCP Internal Medicine; Referring Provider Surgery; Visit Provider Surgery
DX: E04.1 Nontoxic single thyroid nodule (principal)
CPT/HCPCS: 76536

== ENCOUNTER → 2023-04-03 | Outpatient (REF) | payer MEDICARE, MEDICAID, SELFPAY ==
[2023-04-03 09:04] LABS: Basophil# 0.01 X10^3/uL; Basophil% 0.3 % (0-1); Eosinophil# 0.07 X10^3/uL; Eosinophils% 1.9 % (0-5); Hemoglobin 10.2 g/dL (12.0-15.0); Lymphocyte % 32.5 % (19-41); Mean Corp Hgb Conc 31.9 g/dL (32-36); Mean Corpuscular Hgb 27.3 pg (27.0-32.0); Mean Corpuscular Volume 85.6 fL (81-99); Mean Platelet Vol. 11.3 fl (6.2-12.0); Monocyte# 0.46 X10^3/uL; Monocyte% 12.5 % (0-10); NRBC Flagged by Analyzer 0 % (0-5); Neutrophil # 1.95 X10^3/uL (2.7-7.7); Neutrophil % 52.8 % (47-70); Platelet Count 153 K/mm3 (150-450); RBC Distribution Width CV 14.6 % (11.6-14.6); RBC Distribution Width SD 45.2 fl (35.1-43.9); Red Blood Count 3.74 M/mm3 (4.2-5.4); White Blood Count 3.7 K/mm3 (4.4-11.0)
[2023-04-03 09:22] LABS: Anion Gap 7 (5-15); BUN 13 mg/dL (7-18); BUN/Creat Ratio 25.4 RATIO (10-20); Chloride 110 mmol/L (98-107); Creatinine, Serum 0.51 mg/dL (0.55-1.02); EST Glomerular Filtration Rate 125 mL/min (>60); Est Glom Filt Rate - Afr Amer 151 mL/min (>60); Glucose 96 mg/dL (74-106); Potassium 3.3 mmol/L (3.5-5.1); Sodium Level 144 mmol/L (136-145)
== END ==
LOC: OLS.SW 04:00
PROVIDERS: PCP Internal Medicine; Referring Provider Internal Medicine; Visit Provider Internal Medicine
DX: J44.9 Chronic obstructive pulmonary disease, unspecified (principal); E11.40 Type 2 diabetes mellitus with diabetic neuropathy, unspecified
CPT/HCPCS: 36415; 80048; 85025

== ENCOUNTER → 2023-04-17 | Outpatient (REF) | payer MEDICARE, MEDICAID, SELFPAY ==
[2023-04-17 09:14] LABS: Hematocrit 35.7 % (37-47); Hemoglobin 11.5 g/dL (12.0-15.0); Mean Corp Hgb Conc 32.2 g/dL (32-36); Mean Corpuscular Hgb 27.6 pg (27.0-32.0); Mean Corpuscular Volume 85.8 fL (81-99); Mean Platelet Vol. 10.8 fl (6.2-12.0); Platelet Count 168 K/mm3 (150-450); RBC Distribution Width CV 15.2 % (11.6-14.6); RBC Distribution Width SD 47.2 fl (35.1-43.9); Red Blood Count 4.16 M/mm3 (4.2-5.4); White Blood Count 14.1 K/mm3 (4.4-11.0)
[2023-04-17 09:26] LABS: Anion Gap 3 (5-15); BUN 17 mg/dL (7-18); BUN/Creat Ratio 24.6 RATIO (10-20); Calcium,Total 9.2 mg/dL (8.5-10.1); Chloride 106 mmol/L (98-107); Creatinine, Serum 0.69 mg/dL (0.55-1.02); EST Glomerular Filtration Rate 88 mL/min (>60); Est Glom Filt Rate - Afr Amer 107 mL/min (>60); Glucose 120 mg/dL (74-106); Potassium 4.2 mmol/L (3.5-5.1); Sodium Level 138 mmol/L (136-145)
== END ==
LOC: OLS.SW 05:00
PROVIDERS: PCP Internal Medicine; Visit Provider Internal Medicine
DX: I47.29 Other ventricular tachycardia (principal); I48.0 Paroxysmal atrial fibrillation
CPT/HCPCS: 36415; 80048; 85027

== ENCOUNTER 2023-04-18 20:16 | Emergency (ER) | payer MEDICARE, MEDICAID, SELFPAY ==
[2023-04-18 20:17] VITALS: BP 141/67; PULSE 111; RESP 18; TEMP 36.6; O2SAT 93
[2023-04-18 20:20] VITALS: BMI 44.4
[2023-04-18 21:00] LABS: Absolute Lymphocyte Count 1.12 X10^3/uL (0.83-4.51); Absolute Neutrophil Count 4.9 X10^3/uL (2.0-7.7); Basophil# 0.02 X10^3/uL; Basophil% 0.3 % (0-1); Eosinophil# 0.09 X10^3/uL; Eosinophils% 1.3 % (0-5); Hematocrit 32.1 % (37-47); Hemoglobin 10.6 g/dL (12.0-15.0); Lymphocyte # 1.12 X10^3/ul (0.83-4.51); Lymphocyte % 16.3 % (19-41); Mean Corpuscular Hgb 27.7 pg (27.0-32.0); Mean Platelet Vol. 10.8 fl (6.2-12.0); Monocyte# 0.78 X10^3/uL; Monocyte% 11.3 % (0-10); NRBC Flagged by Analyzer 0 % (0-5); Neutrophil # 4.85 X10^3/uL (2.7-7.7); Neutrophil % 70.5 % (47-70); Platelet Count 130 K/mm3 (150-450); RBC Distribution Width CV 15.3 % (11.6-14.6); RBC Distribution Width SD 46.3 fl (35.1-43.9); Red Blood Count 3.82 M/mm3 (4.2-5.4); White Blood Count 6.9 K/mm3 (4.4-11.0)
[2023-04-18 21:16] LABS: Anion Gap 5 (5-15); BUN 19 mg/dL (7-18); BUN/Creat Ratio 24.6 RATIO (10-20); Calcium,Total 8.9 mg/dL (8.5-10.1); Chloride 102 mmol/L (98-107); Creatinine, Serum 0.77 mg/dL (0.55-1.02); EST Glomerular Filtration Rate 78 mL/min (>60); Est Glom Filt Rate - Afr Amer 94 mL/min (>60); Glucose 213 mg/dL (74-106); Potassium 3.6 mmol/L (3.5-5.1); Sodium Level 134 mmol/L (136-145)
--- NOTE | 2023-04-18 22:10 | EKG12_ITS ---
Test Reason : SOB Blood Pressure : / mmHG Vent. Rate : 089 BPM Atrial Rate : 089 BPM P-R Int : 200 ms QRS Dur : 086 ms QT Int : 336 ms P-R-T Axes : 050 028 072 degrees QTc Int : 408 ms Normal sinus rhythm Nonspecific ST abnormality Abnormal ECG Confirmed by CADE SNYDER, BAR ([id number]), field map editor BETHEL GAVIRIA ([id number]) on 04/23/2023 11:35:07 AM Referred By: Confirmed By:SHANI MOHAMUD MD
--- NOTE | 2023-04-18 22:12 | EDS_ITS ---
HPI History of Present Illness Chief Complaint: Shortness of Breath Narrative Narrative: 73-year-old female multiple medical problems ranging from COPD, CHF, presents with shortness of breath that she has had for the last 2 days. She states that she is waiting to undergo thyroidectomy for thyroid carcinoma that was recently diagnosed. She also states that remotely she had history of turning septic frequently. A few years ago she states that she was unconscious and on dialysis for 23 hours a day. She usually gets UTIs and can become septic quite easily. Over the last 2 days she had shortness of breath with occasional cough. She also states she had a headache that resolved. She was sent in by [facility] because of shortness of breath that she has had for the last few days. They want to make sure that she is not turning septic. They also report that she had a high heart rate but she has a history of atrial fibrillation. [facility] Medical History Acidosis, lactic Acute ITP Anemia Anxiety and depression Arthritis Asthma Atrial fibrillation Back pain Benign hypertension Bilateral lower extremity edema BiPAP (biphasic positive airway pressure) dependence Cellulitis of left foot Cholelithiasis Chronic acquired lymphedema Chronic back pain Chronic kidney disease, stage 3b Chronic malnutrition Chronic pain Chronic stasis dermatitis of left lower extremity Congestive heart failure (CHF) COPD (chronic obstructive pulmonary disease) Decreased pedal pulses Depression Diabetes Diabetic ulcer of left foot Diabetic ulcer of right foot Diabetic ulcer of toe of left foot Dialysis patient DVT (deep venous thrombosis) Elephantiasis GERD (gastroesophageal reflux disease) Hammertoe of left foot Hammertoe of left foot Heartburn High cholesterol History of edema History of kidney stones History of pain when walking History of stress test HLD (hyperlipidemia) Hoarseness Hypertension Hypertensive chronic kidney disease with stage 1 through stage 4 chronic kidney disease, or unspecified chronic kidney disease Hypokalemia Increased BMI Insulin dependent diabetes mellitus Leg cramps Localized edema MRSA infection Non-smoker Nonhealing ulcer of left lower extremity with fat layer exposed Nonhealing ulcer of right lower extremity with fat layer exposed detention resident Obstructive sleep apnea (adult) (pediatric) On home oxygen therapy RILEY (obstructive sleep apnea) Osteoporosis PAF (paroxysmal atrial fibrillation) Peripheral neuropathy Renal lithiasis Rheumatic fever Rheumatoid arthritis RLS (restless legs syndrome) Seasonal allergies Shortness of breath on exertion Sleep apnea Thyroid nodule Type 2 diabetes mellitus Type 2 diabetes mellitus with diabetic polyneuropathy Type 2 diabetes mellitus with diabetic polyneuropathy Ulcer of left foot with fat layer exposed Ulcer of right foot with fat layer exposed Venous insufficiency Venous stasis ulcer of right thigh with fat layer exposed Venous ulcer of left lower extremity with varicose veins Venous ulcer of right lower extremity with varicose veins Home Medications fluticasone propionate 50 mcg/actuation nasal spray,suspension 1 spray QHS allergies 02/16/14 [History Last Taken 12/22/22] acetaminophen 325 mg tablet 650 mg PO Q4H PRN Pain 09/09/21 [History Last Taken 10/08/22] bisacodyl 10 mg rectal suppository 10 mg FL DAILY PRN Constipation 09/09/21 [History Last Taken Unknown] multivitamin 1 tab PO DAILY supplement 09/09/21 [History Last Taken 12/23/22] omeprazole 40 mg capsule,delayed release 40 mg PO DAILY gerd 09/09/21 [History Last Taken 12/23/22] oxybutynin chloride 5 mg tablet 5 mg PO QHS bladder spasms 09/09/21 [History Last Taken 12/22/22] venlafaxine 75 mg capsule,extended release 24 hr 75 mg PO DAILY mental health 05/25/22 [History Last Taken 12/23/22] rivaroxaban 15 mg tablet (Xarelto) 15 mg PO DINNER 30 days #0 tabs 05/28/22 [Rx Last Taken 12/22/22] atorvastatin 10 mg tablet (Lipitor) 10 mg PO QHS cholesterol 09/09/22 [History Last Taken 12/22/22] meclizine 25 mg tablet 25 mg PO TID PRN Vertigo 09/09/22 [History Last Taken Unknown] pramipexole 0.25 mg tablet (Mirapex) 0.25 mg PO QHS restless legs 09/09/22 [History Last Taken 12/22/22] modafinil 200 mg tablet 150 mg (0.75 x 200 mg) PO DAILY 2 days #3 tabs 09/26/22 [Rx Last Taken 12/23/22] pregabalin 50 mg capsule 50 mg PO BID NEUROPATHY 10/09/22 [History Last Taken 12/23/22] fluticasone furoate 100 mcg/actuation blister powder for inhalation (Arnuity Ellipta) 1 inh inhalation QHS COPD 12/23/22 [History Last Taken 12/22/22] metformin 850 mg tablet 850 mg PO DAILY DM 12/23/22 [History Last Taken 12/23/22] methenamine hippurate 1 gram tablet 1 g PO BID UTI 12/23/22 [History Last Taken 12/23/22] diltiazem HCl 240 mg capsule,extended release 24 hr 240 mg PO DAILY #0 caps 12/27/22 [Rx Last Taken Unknown] ferrous sulfate 325 mg (65 mg iron) tablet (iron) 325 mg PO QODAY supplement 30 days #0 tabs 12/27/22 [Rx Last Taken 12/23/22] furosemide 20 mg tablet 40 mg (2 x 20 mg) PO DAILY EDEMA 30 days #0 tabs 12/27/22 [Rx Last Taken 12/22/22] sennosides 8.6 mg-docusate sodium 50 mg tablet (Stool Softener-Stimulant Laxative) 2 tab PO BID PRN PRN Constipation #0 tabs 12/27/22 [Rx Last Taken Unknown] spironolactone 25 mg tablet 25 mg PO DAILY diuretic 30 days #0 tabs 12/27/22 [Rx Last Taken 12/23/22] insulin glargine 100 unit/mL (3 mL) subcutaneous pen (Basaglar KwikPen U-100 Insulin) 6 unit subcut QHS diabetes 01/26/23 [History Last Taken Unknown] albuterol sulfate 2.5 mg/3 mL (0.083 %) solution for nebulization 2.5 mg (3 mL) inhalation Q2H PRN PRN Dyspnea, wheezing #0 mL 01/31/23 [Rx Last Taken Unknown] menthol 0.44 %-zinc oxide 20.6 % topical ointment (Calmoseptine) 1 applic topical BID #0 grams 01/31/23 [Rx Last Taken Unknown] pramipexole 0.25 mg tablet 0.25 mg PO QHS #0 tabs 01/31/23 [Rx Last Taken Unknown] levofloxacin 750 mg tablet 750 mg PO DAILY #7 tabs 04/19/23 [Rx Last Taken Unknown] Allergy/AdvReac Type Severity Reaction Status Date / Time aspirin Allergy Severe Hives Verified 04/18/23 20:21 Penicillins Allergy Severe Anaphylaxis Verified 04/18/23 20:21 Sulfa (Sulfonamide Allergy Severe Anaphylaxis Verified 04/18/23 20:21 Antibiotics) latex Allergy Rash Verified 04/18/23 20:21 Family History Mother Heart disease Cancer pancreatic Father Heart disease CVA (cerebral vascular accident) Hypertension Cancer liver, lung Surgical History History of appendectomy History of cardiac catheterization History of cholecystectomy History of ERCP History of hysterectomy Hx of dilation and curettage Hx of toe surgery S/P laparoscopic cholecystectomy Social History housing: intermediate Smoking Status: Never smoker alcohol intake: never substance use type: does not use additional social history: currently residing at [facility] ROS ED ROS Narrative Constitutional: No fever, no chills. HEENT: No sore throat. No neck pain. No loss of vision. No rhinorrhea. Cardiovascular: No chest pain. No palpitations. No pedal edema. Respiratory: Positive cough, positive shortness of breath. Abdominal: No abdominal pain. No nausea. No vomiting. Genitourinary: No dysuria. No hematuria. Musculoskeletal: No myalgias. No arthralgias. Neurologic: Positive headaches. No dizziness. No lightheadedness. Skin: No rash. No change in color. Psychiatric: No depression. No anxiety. EXAM Physical Exam Narrative Exam Narrative: Afebrile. Vital signs noted. HEENT: Normocephalic. Atraumatic. PERRL, EOMI. Neck soft and supple. No point tenderness or step off. Cardiovascular: Regular rate and rhythm, no murmurs, rubs, or gallops appreciated. Respiratory: No tachypnea. Lungs clear to auscultation bilaterally. Gastrointestinal: Abdomen soft, nontender, with normoactive bowel sounds. No rebound or guarding. Neurological: Awake. Alert. Nonfocal, nonlateralizing. Skin: No rash. Normal color. No pallor. Musculoskeletal: No pedal edema. Full range of motion extremities. Const Vital Signs: 04/18/23 20:17 04/18/23 23:54 Temperature 97.9 F Temperature Source Temporal Pulse Rate 111 H Respiratory Rate 18 Respiratory Effort Normal Non-Labored Respiratory Depth Normal Respiratory Pattern Normal Blood Pressure 141/67 H Blood Pressure Mean 91 Pulse Ox 93 Oxygen Delivery Method Room Air Room Air MDM MDM MDM Narrative Medical decision making narrative: Comprehensive work-up was pursued. Nursing protocol entered basic laboratory work. For her tachycardia I will work her up but she has A-fib on diltiazem. EKG will be obtained. I ordered a chest x-ray in 1 view. I reviewed her i nitial laboratory work that returned and she has a normal white count of 6.2, hemoglobin stable at 10.6 with platelet count 130. She has slightly low sodium of 134 but a normal. Potassium of 3.6, chloride normal at 102. Glucose is elevated at 213 consistent with her diabetes, but she has a normal anion gap of 5 so I have no concern for diabetic ketoacidosis at this time. BUN is slightly elevated at 19 with a creatinine of 0.77. COVID swab has been ordered and was reviewed and was negative, however patient stated that she had COVID at the beginning of the month, approximately 3 weeks ago. EKG was obtained and interpreted by myself independently as normal sinus rhythm at 89 bpm without ectopy or acute ST changes. No STEMI. No significant change from previous dated January 28, 2023. I have low suspicion for sepsis currently. She is not tachycardic, she is afebrile, and she has a normal white count of 6.9. In review of her previous labs she has been thrombocytopenic at 130 in the past. This nonspecific today. I did add a lactic acid and urinalysis is still pending. Lactic acid is normal. I reviewed her urinalysis and she has 25-50 WBCs and positive nitrites. This was sent for culture. She was started on levofloxacin as she has a penicillin and sulfa allergy. I interpreted her chest x-ray in 1 view and see no evidence of an acute pneumonia. Regardless, she will be covered with Levaquin. I reviewed the radiology report which confirms my independent interpretation. At this point in time, she is no longer tachycardic, nor are there any signs of Sirs or sepsis. I do not feel she requires admission at this time. I feel she be discharged safely back to [facility]/rehab. She was given a prescription for Levaquin for the next week. They can change the antibiotic as needed according to culture results or preference. Disposition is discharged home in stable condition. History & Record Review Discussion w/independent historian: Patient Additional record(s) reviewed:: Prior ED visit and Prior labs Lab Data Attestation: I reviewed the patient's lab results. Labs: Laboratory Results - last 24 hr 04/18/23 04/18/23 04/18/23 20:54 22:56 23:45 WBC 6.9 RBC 3.82 L Hgb 10.6 L Hct 32.1 L MCV 84.0 MCH 27.7 MCHC 33.0 RDW Std Deviation 46.3 H RDW Coeff of Melissa 15.3 H Plt Count 130 L MPV 10.8 Immature Gran % (Auto) 0.300 Neut % (Auto) 70.5 H Lymph % (Auto) 16.3 L [place] % (Auto) 11.3 H Eos % (Auto) 1.3 Baso % (Auto) 0.3 Absolute Neuts (auto) 4.9 Absolute Lymphs (auto) 1.12 Nucleated RBC % 0 Sodium 134 L Potassium 3.6 Chloride 102 Carbon Dioxide 27.0 Anion Gap 5 BUN 19 H Creatinine 0.77 Est GFR (MDRD) Af Amer 94 Est GFR (MDRD) Non-Af 78 BUN/Creatinine Ratio 24.6 H Glucose 213 H Lactic Acid 1.1 Calcium 8.9 Urine Color Yellow Urine Clarity Clear Urine pH 5.0 Ur Specific [place] 1.020 Urine Protein 15 H Urine Glucose (UA) Normal Urine Ketones Negative Urine Occult Blood 10 H Urine Nitrite Positive H Urine Bilirubin Negative Urine Urobilinogen Normal Ur Leukocyte Esterase 500 H Urine RBC 0-5 SEEN Urine WBC 25-50 SEEN Ur Squamous Epith Cells 0-5 SEEN Urine Bacteria 2+ Urine Mucus 0 SEEN Radiography Diagnostic Testing: Clinical Impression(s) from Imaging Studies Chest X-Ray 04/18/23 22:25 IMPRESSION: No demonstrated acute cardiopulmonary process. Electronically Signed: Denisha Burgos MD at 22:42 EDT , Discharge Plan Triage Chief Complaint: Shortness of Breath ED Provider: Wilton Keith Dx/Rx/DC Orders Clinical Impression: UTI (urinary tract infection), Tachycardia Instructions: ED Cystitis Female Adult Prescriptions: New levofloxacin 750 mg tablet 750 mg PO DAILY Qty: 7 0RF No Action fluticasone propionate 1 SPRAY spray,suspension 1 spray NASAL QHS omeprazole 40 mg Capsule,Delayed Release(Dr/Ec) 40 mg PO DAILY multivitamin Tablet 1 tab PO DAILY acetaminophen 325 mg Tablet 650 mg PO Q4H PRN (Reason: Pain) bisacodyl 10 mg Suppository 10 mg FL DAILY PRN (Reason: Constipation) oxybutynin chloride 5 mg Tablet 5 mg PO QHS venlafaxine 75 mg capsule,extended release 24hr 75 mg PO DAILY Xarelto 15 mg Tablet 15 mg PO DINNER 30 Days Qty: 0 0RF Hold Instructions: until platelet count above 100,000 atorvastatin [Lipitor] 10 mg Tablet 10 mg PO QHS meclizine 25 mg Tablet 25 mg PO TID PRN (Reason: Vertigo) pramipexole [Mirapex] 0.25 mg Tablet 0.25 mg PO QHS modafinil 200 mg tablet 150 mg PO DAILY 2 Days Qty: 3 0RF pregabalin 50 mg Capsule 50 mg PO BID metformin 850 mg tablet 850 mg PO DAILY Arnuity Ellipta 100 mcg/actuation blister with device 1 inh INHALATION QHS methenamine hippurate 1 gram tablet 1 g PO BID sennosides-docusate sodium [Stool Softener-Stimulant Laxat] 8.6-50 mg Tablet 2 tab PO BID PRN PRN (Reason: Constipation) Qty: 0 0RF diltiazem HCl 240 mg Capsule,Extended Release 24hr 240 mg PO DAILY Qty: 0 0RF Rx Instructions: Hold for heart less than 60 or systolic blood pressure less than 110 mmHg. spironolactone 25 mg tablet 25 mg PO DAILY 30 Days Qty: 0 0RF ferrous sulfate [iron] 325 mg (65 mg iron) Tablet 325 mg PO QODAY 30 Days Qty: 0 0RF furosemide 20 mg tablet 40 mg PO DAILY 30 Days Qty: 0 0RF Rx Instructions: Hold if creatinine jumps more than 30% than baseline. insulin glargine [Basaglar KwikPen U-100 Insulin] 100 unit/mL (3 mL) insulin pen 6 unit SUBCUT QHS albuterol sulfate 2.5 mg /3 mL (0.083 %) Solution For Nebulization 2.5 mg inhalation Q2H PRN PRN (Reason: Dyspnea, wheezing) Qty: 0 0RF pramipexole 0.25 mg Tablet 0.25 mg PO QHS Qty: 0 0RF menthol-zinc oxide [Calmoseptine] 0.44-20.6 % Ointment 1 applic topical BID Qty: 0 0RF Protocol: *Topical Application Instructions APPLICATION INSTRUCTIONS: coccyx Primary Care Provider: Rosa Silva Referrals: Rosa Silva MD [Primary Care Provider] - As soon as possible Disposition Disposition: Home, Self Care
--- NOTE | 2023-04-18 22:25 | RAD_ITS ---
STUDY: X-RAY CHEST REASON FOR EXAM: Female, 73 years old. Shortness of Breath TECHNIQUE: Single AP portable view of the chest. COMPARISON: January 26, 2023 chest x-ray FINDINGS: The lungs are clear and expanded. There is no demonstrated pleural abnormality. Normal size heart. Normal mediastinum and leda. Normal visualized pulmonary arteries. Normal visualized aortic arch and descending thoracic aorta. There are diffuse degenerative changes of the visualized thoracic spine. Normal visualized ribs, clavicles, and shoulders. There is no demonstrated abnormality of the visualized soft tissue structures of the upper abdomen. RAD/Chest 1 View (Portable) IMPRESSION: No demonstrated acute cardiopulmonary process. Electronically Signed: Denisha Burgos MD at 22:42 EDT ,
[2023-04-18 23:37] LABS: Lactic Acid 1.1 mmol/L (0.4-1.9)
[2023-04-18 23:52] LABS: Mucous, Urine 0 SEEN /hpf (<or=2+)
[2023-04-18 23:53] LABS: Color, Urine Yellow (Yellow); Glucose, Dipstick Normal (Normal); Ketone-Dipstick Negative (Negative); Leukocyte Esterase-Dipstick 500 /ul (Negative); Nitrite-Dipstick Positive (Negative); Occult Blood-Urine 10 /ul (Negative); Protein-Dipstick 15 mg/dl (Negative); Urine Bilirubin Dipstick Negative (Negative); Urine Clarity Clear (Clear); Urine Urobilinogen Normal (Normal)
[2023-04-19] LABS: Bacteria 2+ /hpf (None Seen); Red Blood Cells-Urine 0-5 SEEN /hpf (0-5); Squamous Epithelial Cells - UA 0-5 SEEN /hpf (5-10); White Blood Cells 25-50 SEEN /hpf (0-5)
[2023-04-19] MEDS: levoFLOXacin 750 MG Tablet PO (01:23)
[2023-04-19 01:32] VITALS: PULSE 76; RESP 20; O2SAT 94
== END 2023-04-19 02:28 | disposition home or self-care (01) ==
PROVIDERS: Emergency Provider Emergency Medicine; PCP Internal Medicine; Visit Provider Emergency Medicine
DX: N39.0 Urinary tract infection, site not specified (principal); J44.9 Chronic obstructive pulmonary disease, unspecified; I50.9 Heart failure, unspecified; I13.0 Hypertensive heart and chronic kidney disease with heart failure and stage 1 through stage 4 chronic kidney disease, or unspecified chronic kidney disease; E11.22 Type 2 diabetes mellitus with diabetic chronic kidney disease; E11.65 Type 2 diabetes mellitus with hyperglycemia; E11.42 Type 2 diabetes mellitus with diabetic polyneuropathy; I48.0 Paroxysmal atrial fibrillation; D69.6 Thrombocytopenia, unspecified; C73 Malignant neoplasm of thyroid gland; Z79.4 Long term (current) use of insulin; N18.32 Chronic kidney disease, stage 3b; R00.0 Tachycardia, unspecified; E78.00 Pure hypercholesterolemia, unspecified; Z88.2 Allergy status to sulfonamides; Z20.822 Contact with and (suspected) exposure to COVID-19; Z88.0 Allergy status to penicillin; Z79.01 Long term (current) use of anticoagulants; Z79.84 Long term (current) use of oral hypoglycemic drugs; Z79.899 Other long term (current) drug therapy; Z99.81 Dependence on supplemental oxygen
CPT/HCPCS: 71045; 80048; 81001; 83605; 85025; 87086; 87088; 87186; 87811; 93005; 94760; 99285; J7040

== ENCOUNTER → 2023-04-26 | Outpatient (REF) | payer MEDICARE, MEDICAID, SELFPAY ==
[2023-04-26 08:48] LABS: Absolute Lymphocyte Count 1.31 X10^3/uL (0.83-4.51); Absolute Neutrophil Count 3.8 X10^3/uL (2.0-7.7); Basophil# 0.03 X10^3/uL; Basophil% 0.5 % (0-1); Eosinophils% 3.4 % (0-5); Hematocrit 33.6 % (37-47); Hemoglobin 10.4 g/dL (12.0-15.0); Lymphocyte # 1.31 X10^3/ul (0.83-4.51); Lymphocyte % 22.2 % (19-41); Mean Corpuscular Hgb 26.7 pg (27.0-32.0); Mean Corpuscular Volume 86.4 fL (81-99); Monocyte% 10.2 % (0-10); NRBC Flagged by Analyzer 0 % (0-5); Neutrophil # 3.75 X10^3/uL (2.7-7.7); Neutrophil % 63.5 % (47-70); Platelet Count 169 K/mm3 (150-450); RBC Distribution Width CV 14.9 % (11.6-14.6); RBC Distribution Width SD 46.8 fl (35.1-43.9); Red Blood Count 3.89 M/mm3 (4.2-5.4); White Blood Count 5.9 K/mm3 (4.4-11.0)
== END ==
LOC: OLS.SW 05:00
PROVIDERS: PCP Internal Medicine; Visit Provider Internal Medicine
DX: D64.9 Anemia, unspecified (principal)
CPT/HCPCS: 36415; 85025

== ENCOUNTER 2023-05-03 00:37 | Inpatient (IN) | payer MEDICARE, MEDICAID, SELFPAY ==
[2023-05-03] VITALS (14 sets, daily range): BP systolic 106–158; BP diastolic 51–123; PULSE 80–123; RESP 14–24; TEMP 36.8–37.9; O2SAT 88–98; BMI 48.1; BMI 43.9; BMI 44.2
--- NOTE | 2023-05-03 00:50 | CT_ITS ---
STUDY: CT BRAIN WITHOUT CONTRAST REASON FOR EXAM: Female, 73 years old patient with headache. RADIATION DOSAGE (If Supplied By Facility): CTDIvol = ( 44.99 ) mGy, DLP = ( 897.35 ) mGycm TECHNIQUE: Transaxial CT imaging of the brain was performed without administration of intravenous contrast material. Multiplanar reformations are submitted for interpretation. Individualized dose optimization techniques were used for this CT. COMPARISON: CT head dated October 09, 2022. FINDINGS: Normal soft tissue structures. There is diffuse thickening of the cranium. Normal size extra-axial spaces for the patient''s age. There is mild ventriculomegaly of the lateral and fourth ventricles similar to previous study. There are areas of decreased attenuation within the white matter tracts of the supratentorial brain, consistent with microvascular disease changes. Normal basal ganglia and thalami. Normal brainstem. Normal cerebellum. There is enlargement of the left paramedian basilar cistern with deviation of the basilar artery towards the right. This appearance suggests possible arachnoid cyst that measures 2.4 x 1.6 x 2.8 cm in size. This appears similar to previous study. There is no intracranial hemorrhage. There is atherosclerotic calcification of the intracranial arteries. Normal visualized paranasal sinuses. CT/Brain/Head without Contrast IMPRESSION: 1. Chronic involutional changes of the brain. 2. Mild ventriculomegaly appears similar to previous study. 3. Findings suggest an arachnoid cyst within the left paramedian basilar cistern Electronically Signed: Krupa Leroy MD at 1:58 EDT ,
--- NOTE | 2023-05-03 00:50 | EKG12_ITS ---
Test Reason : GEN ILLNESS Blood Pressure : / mmHG Vent. Rate : 119 BPM Atrial Rate : 119 BPM P-R Int : 186 ms QRS Dur : 086 ms QT Int : 288 ms P-R-T Axes : 046 031 042 degrees QTc Int : 405 ms Sinus tachycardia Otherwise normal ECG Confirmed by DANIELA SNYDER, DEREK ([id number]), continuity editor LOREE SMITH ([id number]) on 05/07/2023 12:25:00 PM Referred By: DAWSON Confirmed By:DEREK SUAREZ MD
--- NOTE | 2023-05-03 00:52 | EDS_ITS ---
HPI History of Present Illness Chief Complaint: General Illness Informant: patient and EMS Narrative Narrative: Patient presents with fever. Patient was sent in by long term for cough, hypoxia, muscle aches, headaches and fever. Patient states this has been going on for a day or 2. She does have a history of UTI but I cannot get from her that she is having urinary symptoms. She does complain of some dyspnea. Of note she is on Xarelto. No reported history of trauma. [facility] Medical History (Updated 05/03/23 @ 02:[address] Suki Gasca MD) Acute ITP Anemia Anxiety and depression Arthritis Asthma Atrial fibrillation Back pain Benign hypertension Bilateral lower extremity edema BiPAP (biphasic positive airway pressure) dependence Cellulitis of left foot Cholelithiasis Chronic acquired lymphedema Chronic back pain Chronic kidney disease, stage 3b Chronic malnutrition Chronic pain Chronic stasis dermatitis of left lower extremity Congestive heart failure (CHF) COPD (chronic obstructive pulmonary disease) Decreased pedal pulses Depression Diabetes Diabetic ulcer of left foot Diabetic ulcer of right foot Diabetic ulcer of toe of left foot Dialysis patient DVT (deep venous thrombosis) Elephantiasis GERD (gastroesophageal reflux disease) Hammertoe of left foot Hammertoe of left foot Heartburn High cholesterol History of edema History of kidney stones History of pain when walking History of stress test HLD (hyperlipidemia) Hoarseness Hypertension Hypertensive chronic kidney disease with stage 1 through stage 4 chronic kidney disease, or unspecified chronic kidney disease Hypokalemia Increased BMI Insulin dependent diabetes mellitus Leg cramps Localized edema MRSA infection Non-smoker Nonhealing ulcer of left lower extremity with fat layer exposed Nonhealing ulcer of right lower extremity with fat layer exposed [facility] resident Obstructive sleep apnea (adult) (pediatric) On home oxygen therapy Osteoporosis PAF (paroxysmal atrial fibrillation) Peripheral neuropathy Renal lithiasis Rheumatic fever Rheumatoid arthritis RLS (restless legs syndrome) Seasonal allergies Shortness of breath on exertion Sleep apnea Thyroid nodule Type 2 diabetes mellitus with diabetic polyneuropathy Ulcer of left foot with fat layer exposed Ulcer of right foot with fat layer exposed Venous insufficiency Venous stasis ulcer of right thigh with fat layer exposed Venous ulcer of left lower extremity with varicose veins Home Medications fluticasone propionate 50 mcg/actuation nasal spray,suspension 1 spray QHS a llergies 02/16/14 [History Last Taken 12/22/22] acetaminophen 325 mg tablet 650 mg PO Q4H PRN Pain 09/09/21 [History Last Taken 10/08/22] bisacodyl 10 mg rectal suppository 10 mg [place] DAILY PRN Constipation 09/09/21 [History Last Taken Unknown] multivitamin 1 tab PO DAILY supplement 09/09/21 [History Last Taken 12/23/22] omeprazole 40 mg capsule,delayed release 40 mg PO DAILY gerd 09/09/21 [History Last Taken 12/23/22] oxybutynin chloride 5 mg tablet 5 mg PO QHS bladder spasms 09/09/21 [History Last Taken 12/22/22] venlafaxine 75 mg capsule,extended release 24 hr 75 mg PO DAILY mental health 05/25/22 [History Last Taken 12/23/22] rivaroxaban 15 mg tablet (Xarelto) 15 mg PO DINNER 30 days #0 tabs 05/28/22 [Rx Last Taken 12/22/22] atorvastatin 10 mg tablet (Lipitor) 10 mg PO QHS cholesterol 09/09/22 [History Last Taken 12/22/22] meclizine 25 mg tablet 25 mg PO TID PRN Vertigo 09/09/22 [History Last Taken Unknown] pramipexole 0.25 mg tablet (Mirapex) 0.25 mg PO QHS restless legs 09/09/22 [H istory Last Taken 12/22/22] modafinil 200 mg tablet 150 mg (0.75 x 200 mg) PO DAILY 2 days #3 tabs 09/26/22 [Rx Last Taken 12/23/22] pregabalin 50 mg capsule 50 mg PO BID NEUROPATHY 10/09/22 [History Last Taken 12/23/22] fluticasone furoate 100 mcg/actuation blister powder for inhalation (Arnuity Ellipta) 1 inh inhalation QHS COPD 12/23/22 [History Last Taken 12/22/22] metformin 850 mg tablet 850 mg PO DAILY DM 12/23/22 [History Last Taken 12/23/22] methenamine hippurate 1 gram tablet 1 g PO BID UTI 12/23/22 [History Last Taken 12/23/22] diltiazem HCl 240 mg capsule,extended release 24 hr 240 mg PO DAILY #0 caps 12/27/22 [Rx Last Taken Unknown] ferrous sulfate 325 mg (65 mg iron) tablet (iron) 325 mg PO QODAY supplement 30 days #0 tabs 12/27/22 [Rx Last Taken 12/23/22] furosemide 20 mg tablet 40 mg (2 x 20 mg) PO DAILY EDEMA 30 days #0 tabs 12/27/22 [Rx Last Taken 12/22/22] sennosides 8.6 mg-docusate sodium 50 mg tablet (Stool Softener-Stimulant Laxative) 2 tab PO BID PRN PRN Constipation #0 tabs 12/27/22 [Rx Last Taken Unknown] spironolactone 25 mg tablet 25 mg PO DAILY diuretic 30 days #0 tabs 12/27/22 [Rx Last Taken 12/23/22] insulin glargine 100 unit/mL (3 mL) subcutaneous pen (Basaglar KwikPen U-100 Insulin) 6 unit subcut QHS diabetes 01/26/23 [History Last Taken Unknown] albuterol sulfate 2.5 mg/3 mL (0.083 %) solution for nebulization 2.5 mg (3 mL) inhalation Q2H PRN PRN Dyspnea, wheezing #0 mL 01/31/23 [Rx Last Taken Unknown] menthol 0.44 %-zinc oxide 20.6 % topical ointment (Calmoseptine) 1 applic topical BID #0 grams 01/31/23 [Rx Last Taken Unknown] pramipexole 0.25 mg tablet 0.25 mg PO QHS #0 tabs 01/31/23 [Rx Last Taken Unknown] levofloxacin 750 mg tablet 750 mg PO DAILY #7 tabs 04/19/23 [Rx Last Taken Unknown] Allergy/AdvReac Type Severity Reaction Status Date / Time aspirin Allergy Severe Hives Verified 04/18/23 20:21 Penicillins Allergy Severe Anaphylaxis Verified 04/18/23 20:21 Sulfa (Sulfonamide Allergy Severe Anaphylaxis Verified 04/18/23 20:21 Antibiotics) latex Allergy Rash Verified 04/18/23 20:21 Family History Mother Heart disease Cancer pancreatic Father Heart disease CVA (cerebral vascular accident) Hypertension Cancer liver, lung Surgical History History of appendectomy History of cardiac catheterization History of cholecystectomy History of ERCP History of hysterectomy Hx of dilation and curettage Hx of toe surgery S/P laparoscopic cholecystectomy Social History housing: long term Smoking Status: Never smoker alcohol intake: never substance use type: does not use additional social history: currently residing at [facility] ROS ROS ED Constitutional Constitutional ED: Denies chills or fever(s) ENT ENT ED: Denies rhinorrhea or sore throat Cardiovascular Cardiovascular: Denies chest pain or palpitations Respiratory/Chest Respiratory/Chest: Reports cough and dyspnea Gastrointestinal Gastrointestinal: Denies nausea or vomiting Genitourinary Genitourinary ED: Denies dysuria Musculoskeletal Musculoskeletal: Reports myalgias Integumentary Denies rash Neurologic Neurologic: Reports headache(s); Denies paresthesias Hematologic/Lymphatic Hematologic/Lymphatic: Reports easy bleeding and easy bruising Allergic/Immunologic Allergic/Immunologic ED: Denies urticaria EXAM Physical Exam Narrative Exam Narrative: General: Patient is awake. She can tell me some of the history but not a great detailed informant. She does seem to be warm with a fever here. It seems warmer than her measured 100.2. HEENT: Mucous membranes are somewhat dry. No facial tenderness. No temporal artery tenderness. Neck is supple. She can turn left right up and down without pain. Breathing is shallow. She does have some mildly coarse breath sounds. Saturations were low at 88% on room air and she is being put on oxygen now. Heart is tachycardic. Hard to tell if it is regular. She does have a history of atrial fibrillation though. Abdomen is obese but nontender. shows no excoriations. Urine sample is being obtained. Extremities do show chronic venous stasis changes lower extremity and some prior amputations. But there is also erythema of the left calf and the left posterior medial thigh that makes me question of this is a cellulitis. Const Vital Signs: 05/03/23 00:39 05/03/23 00:43 05/03/23 00:41 Temperature 100.2 F H 100.2 F H Temperature Source Oral Oral Pulse Rate 123 H 123 H Respiratory Rate 22 H 22 H Respiratory Effort Normal Non-Labored Respiratory Pattern Normal Blood Pressure 149/53 H 149/53 H Blood Pressure Mean 85 85 Pulse Ox 88 88 Oxygen Delivery Method Room Air Room Air MDM MDM MDM Narrative Medical decision making narrative: InPatient will be worked up for sepsis. I am going to use Levaquin as she is us ed this before with success and she has several allergies noting anaphylaxis. We will obtain x-ray urine and blood work. Because of the headache I will get a CT. She is on Xarelto. CBC shows mild elevation in the white count and mild anemia. Platelets are normal. Electrolytes show elevated BUN to creatinine ratio consistent with dehydration but she was given IV fluids. She was not given 30 cc/kg as her lactate is not elevated. Liver function test shows no acute abnormalities. Lactate is normal at 1.1. Urinalysis shows signs consistent with infection. She has positive nitrites, positive leukocyte esterase, increased white cells and 2+ bacteria. My independent interpretation of her CT of the head without contrast shows no sign of acute bleeding. Final reading shows: 1. Chronic involutional changes of the brain. 2. Mild ventriculomegaly appears similar to previous study. 3. Findings suggest an arachnoid cyst within the left paramedian basilar cistern My independent interpretation of the patient's AP portable chest x-ray shows mild cardiomegaly. Mild increased markings but no sign of definitive infiltrate. No reading showed cardia mobile the and mild pulmonary vascular congestion. The case was discussed with hospitalist. She had looked back and found out the patient has had some resistance to Levaquin but has used and did not react to meropenem. Therefore a dose of this was also given. Lab Data Attestation: I reviewed the patient's lab results. Labs: Laboratory Results - last 24 hr 05/03/23 05/03/23 00:53 01:00 WBC 13.9 H RBC 4.03 L Hgb 10.9 L Hct 33.9 L MCV 84.1 MCH 27.0 MCHC 32.2 RDW Std Deviation 46.0 H RDW Coeff of Melissa 15.2 H Plt Count 156 MPV 11.1 Immature Gran % (Auto) 0.400 Neut % (Auto) 89.2 H Lymph % (Auto) 4.2 L [place] % (Auto) 5.4 Eos % (Auto) 0.4 Baso % (Auto) 0.4 Absolute Neuts (auto) 12.4 H Absolute Lymphs (auto) 0.59 L Nucleated RBC % 0 Anisocytosis 1+ Sodium 137 Potassium 3.8 Chloride 104 Carbon Dioxide 27.0 Anion Gap 6 BUN 24 H Creatinine 0.72 Estim Creat Clear Calc 85.33 Est GFR (MDRD) Af Amer 102 Est GFR (MDRD) Non-Af 84 BUN/Creatinine Ratio 33.5 H Glucose 119 H Lactic Acid 1.1 Calcium 9.2 Total Bilirubin 0.60 AST 9 L ALT 15 Alkaline Phosphatase 102 Total Protein 6.8 Albumin 3.0 L Globulin 3.8 Albumin/Globulin Ratio 0.8 L Urine Color Yellow Urine Clarity Clear Urine pH 5.0 Ur Specific [place] 1.020 Urine Protein Negative Urine Glucose (UA) Normal Urine Ketones 5 H Urine Occult Blood Negative Urine Nitrite Positive H Urine Bilirubin 1 H Urine Urobilinogen Normal Ur Leukocyte Esterase 100 H Urine RBC 0 SEEN Urine WBC 10-25 SEEN Ur Squamous Epith Cells 0 SEEN Urine Bacteria 2+ Urine Mucus 0 SEEN Radiography Diagnostic Testing: Clinical Impression(s) from Imaging Studies Brain CT 05/03/23 00:50 IMPRESSION: 1. Chronic involutional changes of the brain. 2. Mild ventriculomegaly appears similar to previous study. 3. Findings suggest an arachnoid cyst within the left paramedian basilar cistern Electronically Signed: Krupa Leroy MD at 1:58 EDT Reading Location ID and State: [facility] / ID , Service support , Chest X-Ray 05/03/23 01:10 IMPRESSION: Cardiomegaly and mild pulmonary vascular congestion. Electronically Signed: Krupa Leroy MD at 2:00 EDT , Discharge Plan Dx/Rx/DC Orders Clinical Impression: Fever, Tachycardia, Sepsis, Acute UTI Disposition Disposition: Acute Care [facility]
[2023-05-03 01:01] LABS: Absolute Lymphocyte Count 0.59 X10^3/uL (0.83-4.51); Absolute Neutrophil Count 12.4 X10^3/uL (2.0-7.7); Basophil# 0.05 X10^3/uL; Basophil% 0.4 % (0-1); Eosinophil# 0.06 X10^3/uL; Eosinophils% 0.4 % (0-5); Hematocrit 33.9 % (37-47); Hemoglobin 10.9 g/dL (12.0-15.0); Lymphocyte # 0.59 X10^3/ul (0.83-4.51); Lymphocyte % 4.2 % (19-41); Mean Corp Hgb Conc 32.2 g/dL (32-36); Mean Corpuscular Volume 84.1 fL (81-99); Mean Platelet Vol. 11.1 fl (6.2-12.0); Monocyte# 0.75 X10^3/uL; Monocyte% 5.4 % (0-10); NRBC Flagged by Analyzer 0 % (0-5); Neutrophil # 12.39 X10^3/uL (2.7-7.7); Neutrophil % 89.2 % (47-70); POSITIVE DIFFERENTIAL YES; Platelet Count 156 K/mm3 (150-450); RBC Distribution Width CV 15.2 % (11.6-14.6); Red Blood Count 4.03 M/mm3 (4.2-5.4); White Blood Count 13.9 K/mm3 (4.4-11.0)
[2023-05-03 01:06] LABS: Mucous, Urine 0 SEEN /hpf (<or=2+); Red Blood Cells-Urine 0 SEEN /hpf (0-5); Squamous Epithelial Cells - UA 0 SEEN /hpf (5-10)
--- NOTE | 2023-05-03 01:10 | RAD_ITS ---
STUDY: X-RAY CHEST REASON FOR EXAM: Female, 73 years old patient with cough and shortness of breath. TECHNIQUE: Single AP portable view of the chest. COMPARISON: April 18, 2023. FINDINGS: Cardiac monitoring leads are present. Lungs are expanded. There are prominent bronchovascular markings in both lungs. There is no demonstrated pleural abnormality. There is mild cardiac enlargement. Normal mediastinum and leda. There is prominence of the pulmonary hilar arteries with peripheral pulmonary vascular congestion. There is atherosclerotic tortuosity of the aortic arch and descending thoracic aorta. There are diffuse degenerative changes of the visualized thoracic spine. Normal visualized ribs, clavicles, and shoulders. There is no demonstrated abnormality of the visualized soft tissue structures of the upper abdomen. RAD/Chest 1 View (Portable) IMPRESSION: Cardiomegaly and mild pulmonary vascular congestion. Electronically Signed: Krupa Leroy MD at 2:00 EDT ,
[2023-05-03 01:12] LABS: Differential Indicated SCAN CRITERIA MET
[2023-05-03 01:14] LABS: Color, Urine Yellow (Yellow); Glucose, Dipstick Normal (Normal); Ketone-Dipstick 5 mg/dl (Negative); Leukocyte Esterase-Dipstick 100 /ul (Negative); Nitrite-Dipstick Positive (Negative); Occult Blood-Urine Negative /ul (Negative); Protein-Dipstick Negative (Negative); Urine Clarity Clear (Clear); Urine Urobilinogen Normal (Normal)
[2023-05-03 01:15] LABS: Urine Bilirubin Dipstick 1 mg/dL (Negative)
[2023-05-03 01:16] LABS: Bacteria 2+ /hpf (None Seen); White Blood Cells 10-25 SEEN /hpf (0-5)
[2023-05-03 01:20] LABS: ALB/GLOB Ratio 0.8 RATIO (0.9-2.4); AST(SGOT) 9 U/L (15-37); Alanine Aminotransfer ALT/SGPT 15 U/L (13-56); Alkaline Phosphatase 102 U/L (45-117); Anion Gap 6 (5-15); BUN 24 mg/dL (7-18); BUN/Creat Ratio 33.5 RATIO (10-20); Calcium,Total 9.2 mg/dL (8.5-10.1); Chloride 104 mmol/L (98-107); Creatinine, Serum 0.72 mg/dL (0.55-1.02); EST Glomerular Filtration Rate 84 mL/min (>60); Est Glom Filt Rate - Afr Amer 102 mL/min (>60); Estimated Creatinine Clearance 85.33 ml/min; Globulin 3.8 g/dL (2.2-4.2); Glucose 119 mg/dL (74-106); Potassium 3.8 mmol/L (3.5-5.1); Protein, Total 6.8 g/dL (6.4-8.2); Sodium Level 137 mmol/L (136-145)
[2023-05-03 01:27] LABS: Anisocytosis 1+
[2023-05-03 01:29] LABS: Lactic Acid 1.1 mmol/L (0.4-1.9)
[2023-05-03] MEDS: Acetaminophen 500 MG Tablet 1000 MG PO (01:58)
[2023-05-03] MEDS: Meropenem 1 GM in 0.9% Normal Saline (100mL MB+) 100 ML IV ×4 (01:58→21:31)
[2023-05-03] MEDS: 0.9% Normal Saline (1000mL) 1,000 ML 1000 ML IV (01:58)
--- NOTE | 2023-05-03 02:08 | HP.PCM.HOS_ITS ---
HPI - General General Date of Admission: 05/03/23 Date of Service: 05/03/23 Chief Complaint: Headache, nausea, emesis, body aches/arthralgia with tachycardia and hypoxia above her baseline. 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 coli UTI and bacteremia discharged on ertapenem at that time, recent Diagnosis of Thyroid carcinoma awaiting planned outpatient thyroidectomy with Dr. Paiz who now re-presents to the [facility] ED on 05/03/23 with history of persistent headache, nausea, emesis, body aches/arthralgia with tachycardia and hypoxia above her baseline prompting facility to transition to the ED for evaluation reportedly ongoing x2 days. Work-up in the ED included T1 100.2, heart rate 123, BP 149/53, respiratory rate 22, 88% on room air, CBC with WBC 13.9, hemoglobin 10.9, MCV 84.1, platelet 156 with left shift and lymphopenia, CMP with BUN/creatinine 24/0.72, glucose 119, hepatic profile not marked appearing, lactic acid 1.1, urinalysis with clear appearing urine, specific gravity 1.020, ketone 5, nitrate positive, leukocyte Estrace 100 with urine WBCs 10-25 with 2+ urine bacteria, chest x-ray with cardiomegaly mild pulmonary vascular congestion similar to previous chest x-ray, CT head with chronic involutional changes, mild ventriculomegaly similar to previous study, finding suggestive of an arachnoid cyst within the left paramedian basilar cistern similar to previous study, blood culture x2 pending per ED, urine culture pending per ED, rapid SARS COVID and influenza antigen negative. In the ED patient ministered 1 L normal saline, Tylenol 1000 mg p.o. x1, meropenem 1 g IV x1. PFSH Medical History (Updated 05/03/23 @ 02:[address] Suki Gasca MD) Acute ITP Anemia Anxiety and depression Arthritis Asthma Atrial fibrillation Back pain Benign hypertension Bilateral lower extremity edema BiPAP (biphasic positive airway pressure) dependence Cellulitis of left foot Cholelithiasis Chronic acquired lymphedema Chronic back pain Chronic kidney disease, stage 3b Chronic malnutrition Chronic pain Chronic stasis dermatitis of left lower extremity Congestive heart failure (CHF) COPD (chronic obstructive pulmonary disease) Decreased pedal pulses Depression Diabetes Diabetic ulcer of left foot Diabetic ulcer of right foot Diabetic ulcer of toe of left foot Dialysis patient DVT (deep venous thrombosis) Elephantiasis GERD (gastroesophageal reflux disease) Hammertoe of left foot Hammertoe of left foot Heartburn High cholesterol History of edema History of kidney stones History of pain when walking History of stress test HLD (hyperlipidemia) Hoarseness Hypertension Hypertensive chronic kidney disease with stage 1 through stage 4 chronic kidney disease, or unspecified chronic kidney disease Hypokalemia Increased BMI Insulin dependent diabetes mellitus Leg cramps Localized edema MRSA infection Non-smoker Nonhealing ulcer of left lower extremity with fat layer exposed Nonhealing ulcer of right lower extremity with fat layer exposed alf resident Obstructive sleep apnea (adult) (pediatric) On home oxygen therapy Osteoporosis PAF (paroxysmal atrial fibrillation) Peripheral neuropathy Renal lithiasis Rheumatic fever Rheumatoid arthritis RLS (restless legs syndrome) Seasonal allergies Shortness of breath on exertion Sleep apnea Thyroid nodule Type 2 diabetes mellitus with diabetic polyneuropathy Ulcer of left foot with fat layer exposed Ulcer of right foot with fat layer exposed Venous insufficiency Venous stasis ulcer of right thigh with fat layer exposed Venous ulcer of left lower extremity with varicose veins Home Medications fluticasone propionate 50 mcg/actuation nasal spray,suspension 1 spray QHS allergies 02/16/14 [History Last Taken 12/22/22] acetaminophen 325 mg tablet 650 mg PO Q4H PRN Pain 09/09/21 [History Last Taken 10/08/22] bisacodyl 10 mg rectal suppository 10 mg VT DAILY PRN Constipation 09/09/21 [Hi story Last Taken Unknown] multivitamin 1 tab PO DAILY supplement 09/09/21 [History Last Taken 12/23/22] omeprazole 40 mg capsule,delayed release 40 mg PO DAILY gerd 09/09/21 [History Last Taken 12/23/22] oxybutynin chloride 5 mg tablet 5 mg PO QHS bladder spasms 09/09/21 [History Last Taken 12/22/22] venlafaxine 75 mg capsule,extended release 24 hr 75 mg PO DAILY mental health 05/25/22 [History Last Taken 12/23/22] rivaroxaban 15 mg tablet (Xarelto) 15 mg PO DINNER 30 days #0 tabs 05/28/22 [Rx Last Taken 12/22/22] atorvastatin 10 mg tablet (Lipitor) 10 mg PO QHS cholesterol 09/09/22 [History L ast Taken 12/22/22] meclizine 25 mg tablet 25 mg PO TID PRN Vertigo 09/09/22 [History Last Taken Unk nown] pramipexole 0.25 mg tablet (Mirapex) 0.25 mg PO QHS restless legs 09/09/22 [History Last Taken 12/22/22] modafinil 200 mg tablet 150 mg (0.75 x 200 mg) PO DAILY 2 days #3 tabs 09/26/22 [Rx Last Taken 12/23/22] pregabalin 50 mg capsule 50 mg PO BID NEUROPATHY 10/09/22 [History Last Taken 12/23/22] fluticasone furoate 100 mcg/actuation blister powder for inhalation (Arnuity Ellipta) 1 inh inhalation QHS COPD 12/23/22 [History Last Taken 12/22/22] metformin 850 mg tablet 850 mg PO DAILY DM 12/23/22 [History Last Taken 12/23/22] methenamine hippurate 1 gram tablet 1 g PO BID UTI 12/23/22 [History Last Taken 12/23/22] diltiazem HCl 240 mg capsule,extended release 24 hr 240 mg PO DAILY #0 caps 12/27/22 [Rx Last Taken Unknown] ferrous sulfate 325 mg (65 mg iron) tablet (iron) 325 mg PO QODAY supplement 30 days #0 tabs 12/27/22 [Rx Last Taken 12/23/22] furosemide 20 mg tablet 40 mg (2 x 20 mg) PO DAILY EDEMA 30 days #0 tabs 12/27/22 [Rx Last Taken 12/22/22] sennosides 8.6 mg-docusate sodium 50 mg tablet (Stool Softener-Stimulant Laxative) 2 tab PO BID PRN PRN Constipation #0 tabs 12/27/22 [Rx Last Taken Unknown] spironolactone 25 mg tablet 25 mg PO DAILY diuretic 30 days #0 tabs 12/27/22 [Rx Last Taken 12/23/22] insulin glargine 100 unit/mL (3 mL) subcutaneous pen (Basaglar KwikPen U-100 Insulin) 6 unit subcut QHS diabetes 01/26/23 [History Last Taken Unknown] albuterol sulfate 2.5 mg/3 mL (0.083 %) solution for nebulization 2.5 mg (3 mL) inhalation Q2H PRN PRN Dyspnea, wheezing #0 mL 01/31/23 [Rx Last Taken Unknown] menthol 0.44 %-zinc oxide 20.6 % topical ointment (Calmoseptine) 1 applic topical BID #0 grams 01/31/23 [Rx Last Taken Unknown] pramipexole 0.25 mg tablet 0.25 mg PO QHS #0 tabs 01/31/23 [Rx Last Taken Unknown] levofloxacin 750 mg tablet 750 mg PO DAILY #7 tabs 04/19/23 [Rx Last Taken Unknown] Allergy/AdvReac Type Severity Reaction Status Date / Time aspirin Allergy Severe Hives Verified 04/18/23 20:21 Penicillins Allergy Severe Anaphylaxis Verified 04/18/23 20:21 Sulfa (Sulfonamide Allergy Severe Anaphylaxis Verified 04/18/23 20:21 Antibiotics) latex Allergy Rash Verified 04/18/23 20:21 Family History Mother Heart disease Cancer pancreatic Father Heart disease CVA (cerebral vascular accident) Hypertension Cancer liver, lung Surgical History History of appendectomy History of cardiac catheterization History of cholecystectomy History of ERCP History of hysterectomy Hx of dilation and curettage Hx of toe surgery S/P laparoscopic cholecystectomy Social History housing: intermediate Smoking Status: Never smoker alcohol intake: never substance use type: does not use additional social history: currently residing at [facility] ROS Review of Systems ROS Unobtainable: due to encephalopathy Vital Signs Vital Signs Vital Signs: 05/03/23 00:39 05/03/23 00:43 05/03/23 00:41 Temperature 100.2 F H 100.2 F H Temperature Source Oral Oral Pulse Rate 123 H 123 H Respiratory Rate 22 H 22 H Respiratory Effort Normal Non-Labored Respiratory Pattern Normal Blood Pressure 149/53 H 149/53 H Blood Pressure Mean 85 85 Pulse Ox 88 88 Oxygen Delivery Method Room Air Room Air Weight Weight: 245 lb 2.464 oz Body Mass Index (BMI) 48.1 Physical Exam Narrative Physical Examination: General: Awake, Alert but aggitated and lethargic, oriented to self but further answers are mild nonsensical, laying in the ED bed, ill appearing. Skin: Normal color, normal turgor, no icterus, no cyanosis except significant bilateral lower extremity chronic venous skin changes/stasis as well as abrasions in addition to LLE calk and medial thigh erythema/increased warmth. HEENT: AT/NC, EOM difficult to assess given lethargy, PERRLA, dry MM, no carotid bruits or JVD noted. Lungs: Diffusely diminished, greater bases, mildly increased RR but no evidence of any distress, mildly coarse BL, no rales or wheezing. Heart: Mildly tachycardic with regular rhythm; no gallop, rub audible. Abdomen: Soft, morbidly obese, NTTP, no obvious distention but habitus makes exam difficult, distant hyperactive bowel sounds, no obvious HSM. Extremities: No cyanosis, clubbing, chronic edema, see skin. Neurological: Awake, Alert but aggitated and lethargic, oriented to self but further answers are mild nonsensical, laying in the ED bed, ill appearing, cognitive function not baseline intact; pupils equally reactive to light and accommodation, cranial nerves grossly normal but difficult assessment given lethargy, moving all 4 extremities, no focal deficits, strength severely globally decreased. Psychiatric: Affect appears flat, fatigued, intermittently agitated and restless, no acute evidence of depressive or anxiety feelings but does have un derlying history. Results Lab / Micro Data 05/03/23 00:53 05/03/23 00:53 Labs: Laboratory Results - last 24 hr 05/03/23 00:53: WBC 13.9 H, RBC 4.03 L, Hgb 10.9 L, Hct 33.9 L, MCV 84.1, MCH 27.0, MCHC 32.2, RDW Std Deviation 46.0 H, RDW Coeff of Melissa 15.2 H, Plt Count 156, MPV 11.1, Immature Gran % (Auto) 0.400, Neut % (Auto) 89.2 H, Lymph % (Auto) 4.2 L, [place] % (Auto) 5.4, Eos % (Auto) 0.4, Baso % (Auto) 0.4, Absolute Neuts (auto) 12.4 H, Absolute Lymphs (auto) 0.59 L, Nucleated RBC % 0, Anis ocytosis 1+, Sodium 137, Potassium 3.8, Chloride 104, Carbon Dioxide 27.0, Anion Gap 6, BUN 24 H, Creatinine 0.72, Estim Creat Clear Calc 85.33, Est GFR (MDRD) Af Amer 102, Est GFR (MDRD) Non-Af 84, BUN/Creatinine Ratio 33.5 H, Glucose 119 H, Lactic Acid 1.1, Calcium 9.2, Total Bilirubin 0.60, AST 9 L, ALT 15, Alkaline Phosphatase 102, Total Protein 6.8, Albumin 3.0 L, Globulin 3.8, Albumin/Globulin Ratio 0.8 L 05/03/23 01:00: Urine Color Yellow, Urine Clarity Clear, Urine pH 5.0, Ur Specific [place] 1.020, Urine Protein Negative, Urine Glucose (UA) Normal, Urine Ketones 5 H, Urine Occult Blood Negative, Urine Nitrite Positive H, Urine Bilirubin 1 H, Urine Urobilinogen Normal, Ur Leukocyte Esterase 100 H, Urine RBC 0 SEEN, Urine WBC 10-25 SEEN, Ur Squamous Epith Cells 0 SEEN, Urine Bacteria 2+, Urine Mucus 0 SEEN Micro: Microbiology 05/03/23 01:00 Nasal Secretion SARS-CoV-2 & FLU Antigen (Rapid) - Final Radiology Impression Brain CT 05/03/23 00:50 IMPRESSION: 1. Chronic involutional changes of the brain. 2. Mild ventriculomegaly appears similar to previous study. 3. Findings suggest an arachnoid cyst within the left paramedian basilar cistern Electronically Signed: Krupa Leroy MD at 1:58 EDT Reading Location ID and State: [address] [place] [address] , Service support , Chest X-Ray 05/03/23 01:10 IMPRESSION: Cardiomegaly and mild pulmonary vascular congestion. 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 coli UTI and bacteremia discharged on ertapenem at that time, recent Diagnosis of Thyroid carcinoma awaiting planned outpatient thyroidectomy with Dr. Paiz who now re-presents to the [facility] ED on 05/03/23 with history of persistent headache, nausea, emesis, body aches/arthralgia with tachycardia and hypoxia above her baseline prompting facility to transition to the ED for evaluation reportedly ongoing x2 days. #1. Acute Encephalopathy secondary to Acute Urinary Tract Infection w/ Recent ESBL Hx and concurrent LLE Cellulitis: Will admit to [facility], upon ED evaluation remarkable, pending UCx, continue IVFs, monitor I/Os, trend LA per facility protocol, continue IV Meropenem based on prior cultures w/ transition as able pending sensitivities and speciation, request again ID involvement, continue conte catheter with change per facility protocol, PT/OT/CM consultation for discharge planning. Procalcitonin requested. Bld cx x 2 obtained in the ED. PT/OT/CM consultations for discharge planning. #2. Chronic COPD/Asthma with chronic hypoxic respiratory failure (2L NC): Will maintain on home oxygen supplementation, continue ATC budesonide therapy, PRN albuterol, HOB, IS parameters. #3. Multiple thyroid nodules with recent diagnosis thyroid carcinoma: Future plan for outpatient thyroidectomy with Dr. Paiz, from review of records appears to be in the process of being set up. #4. Chronic Kidney Disease Stage IIIb: Admission BUN/Cr 24/0.72, baseline renal function 0.7-0.9 primarily, stable, repeat BMP in AM. #5. Diabetes mellitus type II with chronic neuropathy: Hold oral home regimen, continue home insulin regimen, ADA diet, accu checks w/ ISS, continue patient home Lyrica regimen. #6. Hypertension: Continue home regimen including spironolactone, metolazone, Lasix, diltiazem with parameters as needed, PRN hydralazine. #7. Hyperlipidemia: We will continue patient home statin therapy. #8. Chronic anemia/iron deficiency anemia: Admission hemoglobin 10.9, MCV 84.1, baseline 10-11, stable, continue iron supplementation, continue to trend. #9. PAF: Will continue home xarelto and diltiazem regimen. #10. Chronic back pain: We will continue patient chronic pain regimen to avoid withdrawal however low threshold to hold if sedated or lethargic. #11. Restless leg syndrome: We will continue patient home Requip regimen. #12. GERD: We will continue patient on PPI. #13. History of VTE: Patient with history of DVT, continue patient home Xarelto regimen. #14. Narcolepsy: Will continue patient chronic mode of modafinil regimen. #15. Chronic bilateral lower extremity lymphedema: Snug agustina wraps as needed with BL LE elevation. #16. Morbid Obesity: Weight loss and lifestyle changes encouraged. #17. Anxiety and depression: We will continue patient home venlafaxine regimen. #18. RILEY: BIPAP q HS. #19. DVT prophylaxis: Continue home Eliquis regimen however monitor platelet count given history of drug-induced ITP. #20. CODE STATUS: Full Code per SNF paperwork. Daughter is HCPOA per Facility paperwork. Charges/Coding Visit Charges Inpatient E&M: 11984 Init Hosp L3 Procedures Hospitalists Procedures: 55284 Advncd Care Plan 30 Min
[2023-05-03 03:27] LABS: Procalcitonin 0.07 ng/mL (0.00-0.09)
[2023-05-03] MEDS: Pramipexole Di-HCl 0.25 MG Tablet PO ×2 (04:07→21:30)
[2023-05-03] MEDS: 0.9% Normal Saline (1000mL) 1,000 ML 75 ML IV (04:08)
[2023-05-03 06:19] LABS: Absolute Lymphocyte Count 0.93 X10^3/uL (0.83-4.51); Absolute Neutrophil Count 11.9 X10^3/uL (2.0-7.7); Basophil# 0.03 X10^3/uL; Basophil% 0.2 % (0-1); Eosinophil# 0.02 X10^3/uL; Eosinophils% 0.1 % (0-5); Hematocrit 30.9 % (37-47); Hemoglobin 9.9 g/dL (12.0-15.0); Lymphocyte # 0.93 X10^3/ul (0.83-4.51); Lymphocyte % 6.7 % (19-41); Mean Corpuscular Hgb 27.2 pg (27.0-32.0); Mean Corpuscular Volume 84.9 fL (81-99); Mean Platelet Vol. 10.9 fl (6.2-12.0); Monocyte% 7.2 % (0-10); NRBC Flagged by Analyzer 0 % (0-5); Neutrophil # 11.86 X10^3/uL (2.7-7.7); Neutrophil % 85.3 % (47-70); Platelet Count 129 K/mm3 (150-450); RBC Distribution Width CV 15.4 % (11.6-14.6); RBC Distribution Width SD 47.7 fl (35.1-43.9); Red Blood Count 3.64 M/mm3 (4.2-5.4); White Blood Count 13.9 K/mm3 (4.4-11.0)
[2023-05-03 06:49] LABS: Bedside Glucose 115 mg/dL (74-106)
[2023-05-03 07:08] LABS: ALB/GLOB Ratio 0.7 RATIO (0.9-2.4); AST(SGOT) 9 U/L (15-37); Alanine Aminotransfer ALT/SGPT 12 U/L (13-56); Albumin, Serum 2.4 g/dL (3.2-5.0); Alkaline Phosphatase 87 U/L (45-117); Anion Gap 5 (5-15); BUN 20 mg/dL (7-18); BUN/Creat Ratio 31.3 RATIO (10-20); Calcium,Total 8.7 mg/dL (8.5-10.1); Chloride 109 mmol/L (98-107); Creatinine, Serum 0.64 mg/dL (0.55-1.02); EST Glomerular Filtration Rate 96 mL/min (>60); Est Glom Filt Rate - Afr Amer 117 mL/min (>60); Estimated Creatinine Clearance 34.91 ml/min; Globulin 3.5 g/dL (2.2-4.2); Glucose 120 mg/dL (74-106); Potassium 3.7 mmol/L (3.5-5.1); Protein, Total 5.9 g/dL (6.4-8.2); Sodium Level 140 mmol/L (136-145)
[2023-05-03] MEDS: Budesonide Respules 0.5 MG/2 ML AMPUL.NEB. INHALATION ×2 (07:28→19:35)
--- NOTE | 2023-05-03 09:08 | PN.HOSP_ITS ---
Reason for Visit Reason for Visit: Diagnoses Urinary tract infection, site not specified (05/03/23) Subjective Subjective Patient is a 73-year-old lady with multiple comorbidities admitted with altered mental status. An assessment of acute cystitis as well as recurrent left lower extremity cellulitis made. Started on broad-spectrum antibiotic therapy admitted to monitored bed for further management Objective Data Objective Data Vital Signs: Vital Signs Temp Pulse Resp BP Pulse Ox O2 Del Method O2 Flow Rate 98.4 F 96 24 H 120/54 L 93 Nasal Cannula 3 05/03/23 04:00 05/03/23 07:28 05/03/23 07:28 05/03/23 04:00 05/03/23 07:28 05/03/23 07:28 05/03/23 07:28 Oxygen Flow Rate (L/min) 3 Oxygen Delivery Method Nasal Cannula Weight: 102.2 kg Body Mass Index (BMI) 44.2 Intake & Output: Intake and Output for Last 24 Hours 05/01/23 05/02/23 05/03/23 23:59 23:59 23:59 Intake Total 1120 / 1120 Balance 1120 / 1120 Lab / Micro Data 05/03/23 05:37 05/03/23 05:37 Labs: Laboratory Results - last 24 hr 05/03/23 00:53: WBC 13.9 H, RBC 4.03 L, Hgb 10.9 L, Hct 33.9 L, MCV 84.1, MCH 27.0, MCHC 32.2, RDW Std Deviation 46.0 H, RDW Coeff of Melissa 15.2 H, Plt Count 156, MPV 11.1, Immature Gran % (Auto) 0.400, Neut % (Auto) 89.2 H, Lymph % (Auto) 4.2 L, [place] % (Auto) 5.4, Eos % (Auto) 0.4, Baso % (Auto) 0.4, Absolute Neuts (auto) 12.4 H, Absolute Lymphs (auto) 0.59 L, Nucleated RBC % 0, Anisocytosis 1+, Sodium 137, Potassium 3.8, Chloride 104, Carbon Dioxide 27.0, Anion Gap 6, BUN 24 H, Creatinine 0.72, Estim Creat Clear Calc 85.33, Est GFR (MDRD) Af Amer 102, Est GFR (MDRD) Non-Af 84, BUN/Creatinine Ratio 33.5 H, Glucose 119 H, Lactic Acid 1.1, Calcium 9.2, Total Bilirubin 0.60, AST 9 L, ALT 15, Alkaline Phosphatase 102, Total Protein 6.8, Albumin 3.0 L, Globulin 3.8, Albumin/Globulin Ratio 0.8 L, Procalcitonin 0.07 05/03/23 01:00: Urine Color Yellow, Urine Clarity Clear, Urine pH 5.0, Ur Specific [place] 1.020, Urine Protein Negative, Urine Glucose (UA) Normal, Urine Ketones 5 H, Urine Occult Blood Negative, Urine Nitrite Positive H, Urine Bilirubin 1 H, Urine Urobilinogen Normal, Ur Leukocyte Esterase 100 H, Urine RBC 0 SEEN, Urine WBC 10-25 SEEN, Ur Squamous Epith Cells 0 SEEN, Urine Bacteria 2+, Urine Mucus 0 SEEN 05/03/23 05:37: WBC 13.9 H, RBC 3.64 L, Hgb 9.9 L, Hct 30.9 L, MCV 84.9, MCH 27.2, MCHC 32.0, RDW Std Deviation 47.7 H, RDW Coeff of Melissa 15.4 H, Plt Count 129 L, MPV 10.9, Immature Gran % (Auto) 0.500, Neut % (Auto) 85.3 H, Lymph % (Auto) 6.7 L, [place] % (Auto) 7.2, Eos % (Auto) 0.1, Baso % (Auto) 0.2, Absolute Neuts (auto) 11.9 H, Absolute Lymphs (auto) 0.93, Nucleated RBC % 0, Sodium 140, Potassium 3.7, Chloride 109 H, Carbon Dioxide 26.0, Anion Gap 5, BUN 20 H, Creatinine 0.64, Estim Creat Clear Calc 34.91, Est GFR (MDRD) Af Amer 117, Est GFR (MDRD) Non-Af 96, BUN/Creatinine Ratio 31.3 H, Glucose 120 H, Calcium 8.7, Total Bilirubin 0.60, AST 9 L, ALT 12 L, Alkaline Phosphatase 87, Total Protein 5.9 L, Albumin 2.4 L, Globulin 3.5, Albumin/Globulin Ratio 0.7 L 05/03/23 06:25: POC Glucose 115 H Micro: Microbiology 05/03/23 01:00 Nasal Secretion SARS-CoV-2 & FLU Antigen (Rapid) - Final Radiography Diagnostic Testing: Radiology Impression Brain CT 05/03/23 00:50 IMPRESSION: 1. Chronic involutional changes of the brain. 2. Mild ventriculomegaly appears similar to previous study. 3. Findings suggest an arachnoid cyst within the left paramedian basilar cistern Electronically Signed: Krupa Leroy MD at 1:58 EDT , Chest X-Ray 05/03/23 01:10 IMPRESSION: Cardiomegaly and mild pulmonary vascular congestion. Electronically Signed: Krpua Leroy MD at 2:00 EDT , Physical Exam Narrative GENERAL: cooperative HEENT: Atraumatic; EYES; Anicteric, Normal Conjunctiva NECK; supple, normal thyroid, RESPIRATORY: Diminished to auscultation CARDIOVASCULAR: Regular S1 S2, GI: soft, normoactive bowel sounds, : No Renal angle tenderness; EXTREMITIES: An area of erythema extending from ankle to the mid thigh medially on the left lower extremity MUSCULOSKELETAL: no muscle wasting NEURO: Awake; no lateralizing signs. SKIN: Bilateral lower extremity stasis dermatitis PSYCH; Flat affect Assessment & Plan Assessment/Plan (1) Acute UTI: PLAN: Plan Patient is a 73-year-old lady with multiple comorbidities admitted with altered mental status. An assessment of acute cystitis as well as recurrent left lower extremity cellulitis made. Started on broad-spectrum antibiotic therapy admitted to monitored bed for further management 1. Acute metabolic encephalopathy ?Suspected to be secondary to acute cystitis as well as recurrent left lower extremity cellulitis, admitted to telemetry floor with treatment of patient's underlying condition 2. Acute cystitis ? Patient started on meropenem given her history of ESBL cystitis 3. Left lower extremity cellulitis ? Antibiotics as above 4. History of previous VTE ? Patient is on rivaroxaban 5. Diabetes mellitus type II -patient's oral hypoglycemics held. Placed on long acting insulin, Accu-Cheks a.c. and at bedtime and covered with sliding scale insulin 6. Class III obesity with BMI of 42.2 ?Weight loss advised 7. Paroxysmal atrial fibrillation ?Rate controlled on systemic anticoagulation with rivaroxaban did continue 8. COPD ?Currently not in exacerbation did continue patient home regimen 9. Depression with anxiety ?Patient is on SNRI did continue 10. Hypertension - Blood pressure controlled, home medications continued with dose adjustment as needed 11. Restless leg syndrome ?Patient is on Requip did continue 12. Obstructive sleep apnea ?Patient is on CPAP at night 13. Anemia - Secondary to chronic disorder monitoring H&H and transfuse if patient becomes symptomatic or hemoglobin falls below 7 14. Class III obesity with BMI of 44 ? Complicating care weight loss advised 15. DVT prophylaxis ?Patient is a rivaroxaban, continued Time spent in the patient's overall evaluation,decision-making process, review of diagnostic data, adjustment of management, discussion with other providers, nursing nursing and ancillary staff involved in patient's care documentation, 50 Minutes Charges/Coding Visit Charges Inpatient E&M: 03636 Subs Hosp L3
--- NOTE | 2023-05-03 09:08 | CASEMGMT ---
KRISTIN noted patient is from [facility]. SW went to patient's room to confirm her plan is to return to [facility] at d/c, however patient was sleeping. SW will check back with patient. Navay BUNCH
--- NOTE | 2023-05-03 09:49 | CASEMGMT ---
Discharge Planning Updates sent to [facility]. Lizz Faith, Discharge Planning Asst.
[2023-05-03] MEDS: Methenamine Hippurate 1 GM Tablet PO ×2 (10:20→21:30)
[2023-05-03] MEDS: Furosemide 20 MG Tablet 40 MG PO (10:20)
[2023-05-03] MEDS: Venlafaxine XR 75 MG Capsule PO (10:20)
[2023-05-03] MEDS: Spironolactone 25 MG Tablet PO (10:20)
[2023-05-03] MEDS: dilTIAZem CD 240 MG Capsule PO (10:20)
[2023-05-03] MEDS: Pantoprazole Sodium 40 MG Tablet PO (10:20)
[2023-05-03] MEDS: Menthol/Lanolin/Calamine/Znox 113 GM Tube 1 APPLIC TOPICAL ×4 (10:21→21:25)
[2023-05-03] MEDS: Pregabalin 50 MG Capsule PO ×2 (10:31→21:37)
[2023-05-03] MEDS: Flu Vacc QS2023-24(65YR UP)/PF 240 MCG/0.7 ML Syringe IM (10:31)
[2023-05-03 11:05] LABS: Bedside Glucose 104 mg/dL (74-106)
--- NOTE | 2023-05-03 11:41 | PCM.CONS.GEN ---
Assessment & Plan Assessment/Plan (1) Acute UTI: PLAN: Mild pyuria on UA. Recent h/o ESBL uti. On empiric meropenem, ucx pending. Given frequent uti, may benefit from suppressive hiprex with vit C at discharge for penitentiary prevention. (2) Cellulitis: PLAN: Abx as above. Chronic lymphedema. Will follow, thank you HPI Consult Data Date of Consult: 05/03/23 HPI Narrative Reason for Consultation: uti HPI Narrative: SANDY ORONA, is a 73 F with h/o chronic lymphedema, ITP, COPD, DM, presented late last night with several days headache, n/v, LLE redness/swelling/tenderness. Concern for uti as well given h/o ESBL uti. Admitted on meropenem from ED. This AM, pt unable to provide history or ROS due to mental status. [facility] Medical History Acute ITP Anemia Anxiety and depression Arthritis Asthma Atrial fibrillation Back pain Benign hypertension Bilateral lower extremity edema BiPAP (biphasic positive airway pressure) dependence Cellulitis of left foot Cholelithiasis Chronic acquired lymphedema Chronic back pain Chronic kidney disease, stage 3b Chronic malnutrition Chronic pain Chronic stasis dermatitis of left lower extremity Congestive heart failure (CHF) COPD (chronic obstructive pulmonary disease) Decreased pedal pulses Depression Diabetes Diabetic ulcer of left foot Diabetic ulcer of right foot Diabetic ulcer of toe of left foot Dialysis patient DVT (deep venous thrombosis) Elephantiasis GERD (gastroesophageal reflux disease) Hammertoe of left foot Hammertoe of left foot Heartburn High cholesterol History of edema History of kidney stones History of pain when walking History of stress test HLD (hyperlipidemia) Hoarseness Hypertension Hypertensive chronic kidney disease with stage 1 through stage 4 chronic kidney disease, or unspecified chronic kidney disease Hypokalemia Increased BMI Insulin dependent diabetes mellitus Leg cramps Localized edema MRSA infection Non-smoker Nonhealing ulcer of left lower extremity with fat layer exposed Nonhealing ulcer of right lower extremity with fat layer exposed longterm resident Obstructive sleep apnea (adult) (pediatric) On home oxygen therapy Osteoporosis PAF (paroxysmal atrial fibrillation) Peripheral neuropathy Renal lithiasis Rheumatic fever Rheumatoid arthritis RLS (restless legs syndrome) Seasonal allergies Shortness of breath on exertion Sleep apnea Thyroid nodule Type 2 diabetes mellitus with diabetic polyneuropathy Ulcer of left foot with fat layer exposed Ulcer of right foot with fat layer exposed Venous insufficiency Venous stasis ulcer of right thigh with fat layer exposed Venous ulcer of left lower extremity with varicose veins Home Medications fluticasone propionate 50 mcg/actuation nasal spray,suspension 1 spray QHS allergies 02/16/14 [History Last Taken 12/22/22] acetaminophen 325 mg tablet 650 mg PO Q4H PRN Pain 09/09/21 [History Last Taken 10/08/22] bisacodyl 10 mg rectal suppository 10 mg OK DAILY PRN Constipation 09/09/21 [History Last Taken Unknown] multivitamin 1 tab PO DAILY supplement 09/09/21 [History Last Taken 12/23/22] omeprazole 40 mg capsule,delayed release 40 mg PO DAILY gerd 09/09/21 [History Last Taken 12/23/22] oxybutynin chloride 5 mg tablet 5 mg PO QHS bladder spasms 09/09/21 [History Last Taken 12/22/22] venlafaxine 75 mg capsule,extended release 24 hr 75 mg PO DAILY mental health 05/25/22 [History Last Taken 12/23/22] rivaroxaban 15 mg tablet (Xarelto) 15 mg PO DINNER 30 days #0 tabs 05/28/22 [Rx Last Taken 12/22/22] atorvastatin 10 mg tablet (Lipitor) 10 mg PO QHS cholesterol 09/09/22 [History Last Taken 12/22/22] meclizine 25 mg tablet 25 mg PO TID PRN Vertigo 09/09/22 [History Last Taken Unknown] pramipexole 0.25 mg tablet (Mirapex) 0.25 mg PO QHS restless legs 09/09/22 [History Last Taken 12/22/22] modafinil 200 mg tablet 150 mg (0.75 x 200 mg) PO DAILY 2 days #3 tabs 09/26/22 [Rx Last Taken 12/23/22] pregabalin 50 mg capsule 50 mg PO BID NEUROPATHY 10/09/22 [History Last Taken 12/23/22] fluticasone furoate 100 mcg/actuation blister powder for inhalation (Arnuity Ellipta) 1 inh inhalation QHS COPD 12/23/22 [History Last Taken 12/22/22] metformin 850 mg tablet 850 mg PO DAILY DM 12/23/22 [History Last Taken 12/23/22] methenamine hippurate 1 gram tablet 1 g PO BID UTI 12/23/22 [History Last Taken 12/23/22] diltiazem HCl 240 mg capsule,extended release 24 hr 240 mg PO DAILY #0 caps 12/27/22 [Rx Last Taken Unknown] ferrous sulfate 325 mg (65 mg iron) tablet (iron) 325 mg PO QODAY supplement 30 days #0 tabs 12/27/22 [Rx Last Taken 12/23/22] furosemide 20 mg tablet 40 mg (2 x 20 mg) PO DAILY EDEMA 30 days #0 tabs 12/27/22 [Rx Last Taken 12/22/22] sennosides 8.6 mg-docusate sodium 50 mg tablet (Stool Softener-Stimulant Laxative) 2 tab PO BID PRN PRN Constipation #0 tabs 12/27/22 [Rx Last Taken Unknown] spironolactone 25 mg tablet 25 mg PO DAILY diuretic 30 days #0 tabs 12/27/22 [Rx Last Taken 12/23/22] insulin glargine 100 unit/mL (3 mL) subcutaneous pen (Basaglar KwikPen U-100 Insulin) 6 unit subcut QHS diabetes 01/26/23 [History Last Taken Unknown] albuterol sulfate 2.5 mg/3 mL (0.083 %) solution for nebulization 2.5 mg (3 mL) inhalation Q2H PRN PRN Dyspnea, wheezing #0 mL 01/31/23 [Rx Last Taken Unknown] menthol 0.44 %-zinc oxide 20.6 % topical ointment (Calmoseptine) 1 applic topical BID #0 grams 01/31/23 [Rx Last Taken Unknown] pramipexole 0.25 mg tablet 0.25 mg PO QHS #0 tabs 01/31/23 [Rx Last Taken Unknown] levofloxacin 750 mg tablet 750 mg PO DAILY #7 tabs 04/19/23 [Rx Last Taken Unknown] Allergy/AdvReac Type Severity Reaction Status Date / Time aspirin Allergy Severe Hives Verified 04/18/23 20:21 Penicillins Allergy Severe Anaphylaxis Verified 04/18/23 20:21 Sulfa (Sulfonamide Allergy Severe Anaphylaxis Verified 04/18/23 20:21 Antibiotics) latex Allergy Rash Verified 04/18/23 20:21 Family History Mother Heart disease Cancer pancreatic Father Heart disease CVA (cerebral vascular accident) Hypertension Cancer liver, lung Surgical History History of appendectomy History of cardiac catheterization History of cholecystectomy History of ERCP History of hysterectomy Hx of dilation and curettage Hx of toe surgery S/P laparoscopic cholecystectomy Social History housing: group home Smoking Status: Never smoker alcohol intake: never substance use type: does not use additional social history: currently residing at [facility] Physical Exam Const oriented x3 and no apparent distress General Appearance: lethargic HEENT normocephalic and head/scalp atraumatic Eyes PERRL and EOMs intact bilaterally Neck supple and No nodes Resp normal air movement and clear to auscultation bilaterally Cardio regular rate and regular rhythm GI soft to palpation, non-tender and non-distended Extremity General Extremity: edema Skin Skin Narrative: LLE erythema Neuro CN's II-XII intact bilaterally Lab / Micro Data Attestation: I reviewed the patient's lab results. 05/03/23 05:37 05/03/23 05:37 Labs: Laboratory Results - last 24 hr 05/03/23 00:53: WBC 13.9 H, RBC 4.03 L, Hgb 10.9 L, Hct 33.9 L, MCV 84.1, MCH 27.0, MCHC 32.2, RDW Std Deviation 46.0 H, RDW Coeff of Melissa 15.2 H, Plt Count 156, MPV 11.1, Immature Gran % (Auto) 0.400, Neut % (Auto) 89.2 H, Lymph % (Auto) 4.2 L, [place] % (Auto) 5.4, Eos % (Auto) 0.4, Baso % (Auto) 0.4, Absolute Neuts (auto) 12.4 H, Absolute Lymphs (auto) 0.59 L, Nucleated RBC % 0, Anisocytosis 1+, Sodium 137, Potassium 3.8, Chloride 104, Carbon Dioxide 27.0, Anion Gap 6, BUN 24 H, Creatinine 0.72, Estim Creat Clear Calc 85.33, Est GFR (MDRD) Af Amer 102, Est GFR (MDRD) Non-Af 84, BUN/Creatinine Ratio 33.5 H, Glucose 119 H, Lactic Acid 1.1, Calcium 9.2, Total Bilirubin 0.60, AST 9 L, ALT 15, Alkaline Phosphatase 102, Total Protein 6.8, Albumin 3.0 L, Globulin 3.8, Albumin/Globulin Ratio 0.8 L, Procalcitonin 0.07 05/03/23 01:00: Urine Color Yellow, Urine Clarity Clear, Urine pH 5.0, Ur Specific [place] 1.020, Urine Protein Negative, Urine Glucose (UA) Normal, Urine Ketones 5 H, Urine Occult Blood Negative, Urine Nitrite Positive H, Urine Bilirubin 1 H, Urine Urobilinogen Normal, Ur Leukocyte Esterase 100 H, Urine RBC 0 SEEN, Urine WBC 10-25 SEEN, Ur Squamous Epith Cells 0 SEEN, Urine Bacteria 2+, Urine Mucus 0 SEEN 05/03/23 05:37: WBC 13.9 H, RBC 3.64 L, Hgb 9.9 L, Hct 30.9 L, MCV 84.9, MCH 27.2, MCHC 32.0, RDW Std Deviation 47.7 H, RDW Coeff of Melissa 15.4 H, Plt Count 129 L, MPV 10.9, Immature Gran % (Auto) 0.500, Neut % (Auto) 85.3 H, Lymph % (Auto) 6.7 L, [place] % (Auto) 7.2, Eos % (Auto) 0.1, Baso % (Auto) 0.2, Absolute Neuts (auto) 11.9 H, Absolute Lymphs (auto) 0.93, Nucleated RBC % 0, Sodium 140, Potassium 3.7, Chloride 109 H, Carbon Dioxide 26.0, Anion Gap 5, BUN 20 H, Creatinine 0.64, Estim Creat Clear Calc 34.91, Est GFR (MDRD) Af Amer 117, Est GFR (MDRD) Non-Af 96, BUN/Creatinine Ratio 31.3 H, Glucose 120 H, Calcium 8.7, Total Bilirubin 0.60, AST 9 L, ALT 12 L, Alkaline Phosphatase 87, Total Protein 5.9 L, Albumin 2.4 L, Globulin 3.5, Albumin/Globulin Ratio 0.7 L 05/03/23 06:25: POC Glucose 115 H 05/03/23 10:41: POC Glucose 104 Micro: Microbiology 05/03/23 01:00 Nasal Secretion SARS-CoV-2 & FLU Antigen (Rapid) - Final Radiology Impression Brain CT 05/03/23 00:50 IMPRESSION: 1. Chronic involutional changes of the brain. 2. Mild ventriculomegaly appears similar to previous study. 3. Findings suggest an arachnoid cyst within the left paramedian basilar cistern Electronically Signed: Krupa Leroy MD at 1:58 EDT , Chest X-Ray 05/03/23 01:10 IMPRESSION: Cardiomegaly and mild pulmonary vascular congestion. Electronically Signed: Krupa Leroy MD at 2:00 EDT ,
[2023-05-03 16:43] LABS: Bedside Glucose 163 mg/dL (74-106)
[2023-05-03] MEDS: Insulin Lispro 100 UNIT/ML INSULN.PEN SC ×2 (16:55→21:27)
[2023-05-03] MEDS: Rivaroxaban 15 MG Tablet PO (18:12)
[2023-05-03] MEDS: Acetaminophen 325 MG Tablet 650 MG PO (18:12)
[2023-05-03] MEDS: Insulin Glargine-YFGN 100 UNIT/ML Pen 6 UNIT SC (21:27)
[2023-05-03] MEDS: Fluticasone 0.05% 1 SPRAY NASAL.SRY NASAL (21:28)
[2023-05-03] MEDS: Atorvastatin Calcium 10 MG Tablet PO (21:29)
[2023-05-03] MEDS: Oxybutynin 5 MG Tablet PO (21:30)
[2023-05-03 21:50] LABS: Bedside Glucose 178 mg/dL (74-106)
--- NOTE | 2023-05-03 23:15 | CPS ---
Pt placed on Sleep lab machine.
[2023-05-04] VITALS (11 sets, daily range): BP systolic 113–123; BP diastolic 61–78; PULSE 77–100; RESP 16–22; TEMP 36.8–37.2; O2SAT 2–97; BMI 44.1
[2023-05-04] MEDS: Meropenem 1 GM in 0.9% Normal Saline (100mL MB+) 100 ML IV ×3 (05:09→21:24)
[2023-05-04] MEDS: Budesonide Respules 0.5 MG/2 ML AMPUL.NEB. INHALATION ×2 (07:10→19:19)
[2023-05-04 07:59] LABS: Absolute Neutrophil Count 3.1 X10^3/uL (2.0-7.7); Basophil# 0.02 X10^3/uL; Basophil% 0.5 % (0-1); Eosinophil# 0.09 X10^3/uL; Eosinophils% 2.1 % (0-5); Hemoglobin 10.1 g/dL (12.0-15.0); Lymphocyte % 14.2 % (19-41); Mean Corp Hgb Conc 31.6 g/dL (32-36); Mean Corpuscular Hgb 27.2 pg (27.0-32.0); Mean Platelet Vol. 10.5 fl (6.2-12.0); Monocyte# 0.44 X10^3/uL; Monocyte% 10.4 % (0-10); NRBC Flagged by Analyzer 0 % (0-5); Neutrophil # 3.08 X10^3/uL (2.7-7.7); Neutrophil % 72.6 % (47-70); POSITIVE DIFFERENTIAL YES; Platelet Count 130 K/mm3 (150-450); RBC Distribution Width SD 47.5 fl (35.1-43.9); Red Blood Count 3.72 M/mm3 (4.2-5.4); White Blood Count 4.2 K/mm3 (4.4-11.0)
[2023-05-04] MEDS: Acetaminophen 325 MG Tablet 650 MG PO (08:03)
[2023-05-04 08:04] LABS: Differential Indicated SCAN CRITERIA MET
[2023-05-04] MEDS: Ferrous Sulfate 325 MG Tablet PO (08:04)
[2023-05-04 08:32] LABS: Anion Gap 5 (5-15); BUN 15 mg/dL (7-18); Chloride 108 mmol/L (98-107); Creatinine, Serum 0.52 mg/dL (0.55-1.02); EST Glomerular Filtration Rate 123 mL/min (>60); Est Glom Filt Rate - Afr Amer 149 mL/min (>60); Estimated Creatinine Clearance 34.91 ml/min; Glucose 116 mg/dL (74-106); Magnesium 1.9 mg/dL (1.6-2.6); Phosphorus 3.3 mg/dL (2.5-4.9); Potassium 3.5 mmol/L (3.5-5.1); Sodium Level 140 mmol/L (136-145)
[2023-05-04 08:39] LABS: Differential Comment SCANNED
[2023-05-04] MEDS: Spironolactone 25 MG Tablet PO (08:54)
[2023-05-04] MEDS: Menthol/Lanolin/Calamine/Znox 113 GM Tube 1 APPLIC TOPICAL ×4 (08:56→21:23)
[2023-05-04] MEDS: dilTIAZem CD 240 MG Capsule PO ×2 (08:58→08:59)
[2023-05-04] MEDS: Furosemide 20 MG Tablet 40 MG PO (08:59)
[2023-05-04] MEDS: Methenamine Hippurate 1 GM Tablet PO ×2 (08:59→21:24)
[2023-05-04] MEDS: Venlafaxine XR 75 MG Capsule PO (09:00)
[2023-05-04] MEDS: Pantoprazole Sodium 40 MG Tablet PO (09:01)
[2023-05-04] MEDS: Pregabalin 50 MG Capsule PO ×2 (09:09→21:21)
--- NOTE | 2023-05-04 09:24 | PCM.PN.HOSP ---
Reason for Visit Reason for Visit: Diagnoses Cellulitis, unspecified (05/03/23) Urinary tract infection, site not specified (05/03/23) Subjective Subjective Patient beginning to feel better but reports generalized aches and pains due to chronic pain and reports she was on pain medication for many years and has gotten some at SNF and this helps her function Objective Data Objective Data Vital Signs: Vital Signs Temp Pulse Resp BP Pulse Ox O2 Del Method O2 Flow Rate 98.9 F 95 18 119/70 94 Room Air 2 05/04/23 04:00 05/04/23 07:10 05/04/23 07:10 05/04/23 04:00 05/04/23 07:10 05/04/23 07:10 05/04/23 04:00 FiO2 21 05/04/23 02:25 Oxygen Flow Rate (L/min) 2 Oxygen Delivery Method Room Air Weight: 102.1 kg Body Mass Index (BMI) 44.1 Intake & Output: Intake and Output for Last 24 Hours 05/02/23 05/03/23 05/04/23 23:59 23:59 23:59 Intake Total 2931.25 / 3031.25 490 / 490 Output Total 600 / 1000 1300 / 1300 Balance 2331.25 / 2031.25 -810 / -810 Lab / Micro Data 05/04/23 07:45 05/04/23 07:45 Labs: Laboratory Results - last 24 hr 05/03/23 10:41: POC Glucose 104 05/03/23 16:11: POC Glucose 163 H 05/03/23 21:23: POC Glucose 178 H 05/04/23 07:45: WBC 4.2 L, RBC 3.72 L, Hgb 10.1 L, Hct 32.0 L, MCV 86.0, MCH 27.2, MCHC 31.6 L, RDW Std Deviation 47.5 H, RDW Coeff of Melissa 15.0 H, Plt Count 130 L, MPV 10.5, Immature Gran % (Auto) 0.200, Neut % (Auto) 72.6 H, Lymph % (Auto) 14.2 L, [place] % (Auto) 10.4 H, Eos % (Auto) 2.1, Baso % (Auto) 0.5, Absolute Neuts (auto) 3.1, Absolute Lymphs (auto) 0.60 L, Nucleated RBC % 0, Differential Comment SCANNED, Diff Path Review May foll, Sodium 140, Potassium 3.5, Chloride 108 H, Carbon Dioxide 27.0, Anion Gap 5, BUN 15, Creatinine 0.52 L, Estim Creat Clear Calc 34.91, Est GFR (MDRD) Af Amer 149, Est GFR (MDRD) Non-Af 123, BUN/Creatinine Ratio 29.0 H, Glucose 116 H, Calcium 9.0, Phosphorus 3.3, Magnesium 1.9 Micro: Microbiology 05/03/23 00:53 Blood Culture (Wb) - Right Hand Blood Culture - Preliminary GNR lactose supply chain tech 05/03/23 00:53 Blood Culture (Wb) - Left Forearm Blood Culture - Preliminary GNR lactose supply chain tech 05/03/23 01:00 Nasal Secretion SARS-CoV-2 & FLU Antigen (Rapid) - Final Physical Exam Narrative General: Alert, oriented, no apparent distress HEENT: Atraumatic, normocephalic Eyes: Anicteric, normal conjunctiva, extraocular movements grossly intact Neck: Supple Respiratory: Clear to auscultation bilaterally, normal respiratory effort Cardiovascular: Regular rate GI: Soft, nontender, nondistended Extremities: No edema Musculoskeletal: Moving all extremities Neuro: No overt focal neurological deficits Skin: No rashes appreciated Psych: Cooperative Assessment & Plan Assessment/Plan (1) Acute UTI: PLAN: Plan Patient is a 73-year-old lady with multiple comorbidities admitted with altered mental status. An assessment of acute cystitis as well as recurrent left lower extremity cellulitis made. Started on broad-spectrum antibiotic therapy admitted to monitored bed for further management 1. Acute metabolic encephalopathy ?Suspected to be secondary to acute cystitis as well as recurrent left lower extremity cellulitis, admitted to telemetry floor with treatment of patient's underlying condition -05/04: Recent history of ESBL UTI, urine culture pending, blood cultures preliminarily gram-negative manjinder lactose supply chain tech is in 2 out of 2 and seems growing in urine culture. On meropenem, infectious disease following 2. Acute cystitis ? Patient started on meropenem given her history of ESBL cystitis -05/04: See above. Continue Hiprex 3. Left lower extremity cellulitis ? Antibiotics as above -05/04: Continue antibiotics and supportive care 4. History of previous VTE ? Patient is on rivaroxaban -05/04: Hemoglobin stable, continue present management 5. Diabetes mellitus type II -patient's oral hypoglycemics held. Placed on long acting insulin, Accu-Cheks a.c. and at bedtime and covered with sliding scale insulin -05/04: Continue sliding scale and monitoring [id number] glucose, also on 6 units nightly 6. Class III obesity with BMI of 42.2 ?Weight loss advised 7. Paroxysmal atrial fibrillation ?Rate controlled on systemic anticoagulation with rivaroxaban did continue -05/04: Continue anticoagulation and Cardizem 8. COPD ?Currently not in exacerbation did continue patient home regimen 9. Depression with anxiety ?Patient is on SNRI did continue 10. Hypertension - Blood pressure controlled, home medications continued with dose adjustment as needed 11. Restless leg syndrome ?Patient is on Requip did continue 12. Obstructive sleep apnea ?Patient is on CPAP at night 13. Anemia - Secondary to chronic disorder monitoring H&H and transfuse if patient becomes symptomatic or hemoglobin falls below 7 14. Class III obesity with BMI of 44 ? Complicating care weight loss advised 15. DVT prophylaxis ?Patient is a rivaroxaban, continued Time spent in the patient's overall evaluation,decision-making process, review of diagnostic data, adjustment of management, discussion with other providers, nursing nursing and ancillary staff involved in patient's care documentation, 40 Minutes Charges/Coding Visit Charges Inpatient E&M: 13646 Subs Hosp L2
[2023-05-04] MEDS: Modafinil 200 MG Tablet PO (11:09)
[2023-05-04] MEDS: Insulin Lispro 100 UNIT/ML INSULN.PEN SC ×3 (11:14→21:22)
[2023-05-04 11:35] LABS: Bedside Glucose 201 mg/dL (74-106)
[2023-05-04] MEDS: oxyCODONE 5 MG Tablet PO (12:37)
[2023-05-04] MEDS: 0.9% Saline Lock 10 ML Syringe IV ×3 (13:56→18:11)
[2023-05-04] MEDS: Rivaroxaban 15 MG Tablet PO (17:12)
[2023-05-04 18:34] LABS: Bedside Glucose 153 mg/dL (74-106)
--- NOTE | 2023-05-04 18:48 | NURSING ---
Reviewed charting with Purvi Guillory RN
[2023-05-04] MEDS: Insulin Glargine-YFGN 100 UNIT/ML Pen 6 UNIT SC (21:21)
[2023-05-04] MEDS: Fluticasone 0.05% 1 SPRAY NASAL.SRY NASAL (21:22)
[2023-05-04] MEDS: Pramipexole Di-HCl 0.25 MG Tablet PO (21:25)
[2023-05-04] MEDS: Oxybutynin 5 MG Tablet PO (21:25)
[2023-05-04] MEDS: Atorvastatin Calcium 10 MG Tablet PO (21:25)
[2023-05-05] VITALS (10 sets, daily range): BP systolic 103–132; BP diastolic 50–79; PULSE 82–98; RESP 16–18; TEMP 36.3–36.8; O2SAT 93–97; BMI 44.1
[2023-05-05] MEDS: Meropenem 1 GM in 0.9% Normal Saline (100mL MB+) 100 ML IV ×3 (05:04→23:02)
[2023-05-05 06:04] LABS: Absolute Lymphocyte Count 1.01 X10^3/uL (0.83-4.51); Absolute Neutrophil Count 3.2 X10^3/uL (2.0-7.7); Basophil# 0.03 X10^3/uL; Basophil% 0.6 % (0-1); Eosinophil# 0.18 X10^3/uL; Eosinophils% 3.6 % (0-5); Hemoglobin 10.7 g/dL (12.0-15.0); Lymphocyte # 1.01 X10^3/ul (0.83-4.51); Lymphocyte % 20.4 % (19-41); Mean Corp Hgb Conc 31.5 g/dL (32-36); Mean Corpuscular Hgb 26.9 pg (27.0-32.0); Mean Corpuscular Volume 85.4 fL (81-99); Mean Platelet Vol. 11.5 fl (6.2-12.0); Monocyte# 0.58 X10^3/uL; Monocyte% 11.7 % (0-10); NRBC Flagged by Analyzer 0 % (0-5); Neutrophil # 3.15 X10^3/uL (2.7-7.7); Neutrophil % 63.5 % (47-70); Platelet Count 145 K/mm3 (150-450); RBC Distribution Width CV 14.9 % (11.6-14.6); RBC Distribution Width SD 46.1 fl (35.1-43.9); Red Blood Count 3.98 M/mm3 (4.2-5.4)
[2023-05-05 07:40] LABS: Anion Gap 7 (5-15); BUN 18 mg/dL (7-18); BUN/Creat Ratio 24.6 RATIO (10-20); Chloride 107 mmol/L (98-107); Creatinine, Serum 0.73 mg/dL (0.55-1.02); EST Glomerular Filtration Rate 82 mL/min (>60); Est Glom Filt Rate - Afr Amer 100 mL/min (>60); Estimated Creatinine Clearance 34.91 ml/min; Glucose 143 mg/dL (74-106); Potassium 3.6 mmol/L (3.5-5.1); Sodium Level 140 mmol/L (136-145)
--- NOTE | 2023-05-05 08:35 | PN.HOSP_ITS ---
Reason for Visit Reason for Visit: Diagnoses Cellulitis, unspecified (05/03/23) Urinary tract infection, site not specified (05/03/23) Subjective Subjective Continues to feel better, reports frustration with recurrent UTIs Objective Data Objective Data Vital Signs: Vital Signs Temp Pulse Resp BP Pulse Ox O2 Del Method O2 Flow Rate 98.1 F 86 18 117/79 96 CPAP 2 05/05/23 04:00 05/05/23 04:00 05/05/23 04:00 05/05/23 04:00 05/05/23 04:00 05/05/23 04:00 05/04/23 10:06 FiO2 21 05/04/23 02:25 Oxygen Flow Rate (L/min) 2 Oxygen Delivery Method CPAP Weight: 102.1 kg Body Mass Index (BMI) 44.1 Intake & Output: Intake and Output for Last 24 Hours 05/03/23 05/04/23 05/05/23 23:59 23:59 23:59 Intake Total 2931.25 / 3031.25 2160 / 2160 220 / 220 Output Total 600 / 1000 2300 / 2300 300 / 300 Balance 2331.25 / 2031.25 -140 / -140 -80 / -80 Lab / Micro Data 05/05/23 05:18 05/05/23 05:18 Labs: Laboratory Results - last 24 hr 05/04/23 07:45: Differential Comment SCANNED, Diff Path Review November05/04/23 11:13: POC Glucose 201 H 05/04/23 17:10: POC Glucose 153 H 05/05/23 05:18: WBC 5.0, RBC 3.98 L, Hgb 10.7 L, Hct 34.0 L, MCV 85.4, MCH 26.9 L, MCHC 31.5 L, RDW Std Deviation 46.1 H, RDW Coeff of Melissa 14.9 H, Plt Count 145 L, MPV 11.5, Immature Gran % (Auto) 0.200, Neut % (Auto) 63.5, Lymph % (Auto) 20.4, [place] % (Auto) 11.7 H, Eos % (Auto) 3.6, Baso % (Auto) 0.6, Absolute Neuts (auto) 3.2, Absolute Lymphs (auto) 1.01, Nucleated RBC % 0, Sodium 140, Potassium 3.6, Chloride 107, Carbon Dioxide 26.0, Anion Gap 7, BUN 18, Creatinine 0.73, Estim Creat Clear Calc 34.91, Est GFR (MDRD) Af Amer 100, Est GFR (MDRD) Non-Af 82, BUN/Creatinine Ratio 24.6 H, Glucose 143 H, Calcium 9.0 Micro: Microbiology 05/03/23 01:00 Urine, Catheterized Urine Culture - Preliminary GNR lactose office inspector 05/03/23 00:53 Blood Culture (Wb) - Right Hand Blood Culture - Final GNR lactose office inspector 05/03/23 00:53 Blood Culture (Wb) - Left Forearm Blood Culture - Final ESBL Escherichia coli 05/03/23 01:00 Nasal Secretion SARS-CoV-2 & FLU Antigen (Rapid) - Final Physical Exam Narrative General: Alert, oriented, no apparent distress HEENT: Atraumatic, normocephalic Eyes: Anicteric, normal conjunctiva, extraocular movements grossly intact Neck: Supple Respiratory: Clear to auscultation bilaterally, normal respiratory effort Cardiovascular: Regular rate GI: Soft, nontender, nondistended Extremities: No edema Musculoskeletal: Moving all extremities Neuro: No overt focal neurological deficits Skin: No rashes appreciated Psych: Cooperative Assessment & Plan Assessment/Plan (1) Acute UTI: PLAN: Plan Patient is a 73-year-old lady with multiple comorbidities admitted with altered mental status. An assessment of acute cystitis as well as recurrent left lower extremity cellulitis made. Started on broad-spectrum antibiotic therapy admitted to monitored bed for further management 1. Acute metabolic encephalopathy ?Suspected to be secondary to acute cystitis as well as recurrent left lower extremity cellulitis, admitted to telemetry floor with treatment of patient's underlying condition -05/04: Recent history of ESBL UTI, urine culture pending, blood cultures preliminarily gram-negative manjinder lactose office inspector is in 2 out of 2 and seems growing in urine culture. On meropenem, infectious disease following -05/05: Resolved 2. Complicated ESBL E. coli UTI with bacteremia ? Patient started on meropenem given her history of ESBL cystitis -05/04: See above. Continue Hiprex -05/05: On meropenem, blood culture showing ESBL E. coli with urine culture still preliminary however suspect sensitivity pattern should be the same or similar, ID on board. Possible DC back to [facility] tomorrow after final antibiotic plan established 3. Left lower extremity cellulitis ? Antibiotics as above -05/04: Continue antibiotics and supportive care 4. History of previous VTE ? Patient is on rivaroxaban -05/04: Hemoglobin stable, continue present management 5. Diabetes mellitus type II -patient's oral hypoglycemics held. Placed on long acting insulin, Accu-Cheks a.c. and at bedtime and covered with sliding scale insulin -05/04: Continue sliding scale and monitoring [id number] glucose, also on 6 units nightly 6. Class III obesity with BMI of 42.2 ?Weight loss advised 7. Paroxysmal atrial fibrillation ?Rate controlled on systemic anticoagulation with rivaroxaban did continue -05/04: Continue anticoagulation and Cardizem 8. COPD ?Currently not in exacerbation did continue patient home regimen 9. Depression with anxiety ?Patient is on SNRI did continue 10. Hypertension - Blood pressure controlled, home medications continued with dose adjustment as needed 11. Restless leg syndrome ?Patient is on Requip did continue 12. Obstructive sleep apnea ?Patient is on CPAP at night 13. Anemia - Secondary to chronic disorder monitoring H&H and transfuse if patient becomes symptomatic or hemoglobin falls below 7 14. Class III obesity with BMI of 44 ? Complicating care weight loss advised 15. DVT prophylaxis ?Patient is a rivaroxaban, continued Time spent in the patient's overall evaluation,decision-making process, review of diagnostic data, adjustment of management, discussion with other providers, nursing nursing and ancillary staff involved in patient's care documentation, 30 Minutes Charges/Coding Visit Charges Inpatient E&M: 84107 [facility] L1
[2023-05-05] MEDS: Spironolactone 25 MG Tablet PO (09:06)
[2023-05-05] MEDS: Menthol/Lanolin/Calamine/Znox 113 GM Tube 1 APPLIC TOPICAL ×3 (09:10→23:07)
[2023-05-05] MEDS: Methenamine Hippurate 1 GM Tablet PO ×2 (09:11→22:48)
[2023-05-05] MEDS: Furosemide 20 MG Tablet 40 MG PO (09:11)
[2023-05-05] MEDS: Venlafaxine XR 75 MG Capsule PO (09:11)
[2023-05-05] MEDS: Pantoprazole Sodium 40 MG Tablet PO (09:12)
[2023-05-05] MEDS: Pregabalin 50 MG Capsule PO ×2 (09:12→23:02)
[2023-05-05] MEDS: Modafinil 200 MG Tablet PO (09:13)
[2023-05-05] MEDS: oxyCODONE 5 MG Tablet PO ×2 (09:13→23:01)
[2023-05-05] MEDS: Insulin Lispro 100 UNIT/ML INSULN.PEN SC ×3 (11:22→22:46)
[2023-05-05 11:45] LABS: Bedside Glucose 207 mg/dL (74-106)
[2023-05-05] MEDS: 0.9% Saline Lock 10 ML Syringe IV (14:04)
[2023-05-05] MEDS: Rivaroxaban 15 MG Tablet PO (16:56)
[2023-05-05 17:26] LABS: Bedside Glucose 175 mg/dL (74-106)
--- NOTE | 2023-05-05 19:00 | NURSING ---
Reviewed charting with Purvi Guillory RN
[2023-05-05] MEDS: Budesonide Respules 0.5 MG/2 ML AMPUL.NEB. INHALATION (19:32)
[2023-05-05] MEDS: Fluticasone 0.05% 1 SPRAY NASAL.SRY NASAL (22:44)
[2023-05-05] MEDS: Insulin Glargine-YFGN 100 UNIT/ML Pen 6 UNIT SC (22:45)
[2023-05-05] MEDS: Oxybutynin 5 MG Tablet PO (22:48)
[2023-05-05] MEDS: Atorvastatin Calcium 10 MG Tablet PO (22:49)
[2023-05-05] MEDS: Pramipexole Di-HCl 0.25 MG Tablet PO (22:50)
[2023-05-05 23:56] LABS: Bedside Glucose 161 mg/dL (74-106)
[2023-05-06] VITALS (8 sets, daily range): BP systolic 108–124; BP diastolic 54–89; PULSE 84–102; RESP 15–20; TEMP 36.4–36.9; O2SAT 91–96; BMI 43.9
[2023-05-06 04:36] LABS: Absolute Lymphocyte Count 1.29 X10^3/uL (0.83-4.51); Absolute Neutrophil Count 2.6 X10^3/uL (2.0-7.7); Basophil# 0.04 X10^3/uL; Basophil% 0.9 % (0-1); Eosinophil# 0.16 X10^3/uL; Eosinophils% 3.5 % (0-5); Hematocrit 33.4 % (37-47); Hemoglobin 10.8 g/dL (12.0-15.0); Lymphocyte # 1.29 X10^3/ul (0.83-4.51); Lymphocyte % 28.1 % (19-41); Mean Corp Hgb Conc 32.3 g/dL (32-36); Mean Corpuscular Hgb 27.3 pg (27.0-32.0); Mean Corpuscular Volume 84.3 fL (81-99); Mean Platelet Vol. 10.6 fl (6.2-12.0); Monocyte# 0.45 X10^3/uL; Monocyte% 9.8 % (0-10); NRBC Flagged by Analyzer 0 % (0-5); Neutrophil # 2.64 X10^3/uL (2.7-7.7); Neutrophil % 57.5 % (47-70); Platelet Count 143 K/mm3 (150-450); RBC Distribution Width CV 14.6 % (11.6-14.6); RBC Distribution Width SD 44.8 fl (35.1-43.9); Red Blood Count 3.96 M/mm3 (4.2-5.4); White Blood Count 4.6 K/mm3 (4.4-11.0)
[2023-05-06] MEDS: Meropenem 1 GM in 0.9% Normal Saline (100mL MB+) 100 ML IV (05:49)
[2023-05-06 05:52] LABS: Anion Gap 7 (5-15); BUN 20 mg/dL (7-18); BUN/Creat Ratio 35.3 RATIO (10-20); Calcium,Total 9.2 mg/dL (8.5-10.1); Chloride 105 mmol/L (98-107); Creatinine, Serum 0.57 mg/dL (0.55-1.02); EST Glomerular Filtration Rate 111 mL/min (>60); Est Glom Filt Rate - Afr Amer 134 mL/min (>60); Estimated Creatinine Clearance 34.91 ml/min; Glucose 101 mg/dL (74-106); Potassium 3.6 mmol/L (3.5-5.1); Sodium Level 140 mmol/L (136-145)
[2023-05-06 06:52] LABS: Bedside Glucose 103 mg/dL (74-106)
--- NOTE | 2023-05-06 08:02 | US_ITS ---
INDICATION: pyelonephritis EXAMINATION: Ultrasound US Kidney(s) complete (eg, kidneys and bladder) TECHNIQUE: Quach scale and color doppler images were obtained of the kidneys. COMPARISON: Prior study dated: CT from 09/09/2021 FINDINGS: RIGHT KIDNEY: 10 x 4.8 x 4.9 cm. There is mild hydronephrosis. No shadowing calculus, focal lesion or perinephric collection is demonstrated. LEFT KIDNEY: 10.5 x 5.3 x 5.2 cm. There is no hydronephrosis. No shadowing calculus, focal lesion or perinephric collection is demonstrated. URINARY BLADDER: Partially distended without focal abnormality. Bilateral ureteral jets are seen. US/Kidney and Bladder IMPRESSION: Mild right hydronephrosis. Both ureteral jets are seen. Electronically Signed: Owen Jay MD at 15:15 EDT ,
[2023-05-06] MEDS: Pantoprazole Sodium 40 MG Tablet PO (08:55)
[2023-05-06] MEDS: dilTIAZem CD 240 MG Capsule PO (08:55)
[2023-05-06] MEDS: Furosemide 20 MG Tablet 40 MG PO (08:55)
[2023-05-06] MEDS: Venlafaxine XR 75 MG Capsule PO (08:55)
[2023-05-06] MEDS: Ferrous Sulfate 325 MG Tablet PO (08:56)
[2023-05-06] MEDS: Spironolactone 25 MG Tablet PO (08:56)
[2023-05-06] MEDS: Methenamine Hippurate 1 GM Tablet PO (08:56)
[2023-05-06] MEDS: Menthol/Lanolin/Calamine/Znox 113 GM Tube 1 APPLIC TOPICAL ×2 (08:58→14:45)
[2023-05-06] MEDS: Modafinil 200 MG Tablet PO ×2 (09:08→09:09)
[2023-05-06] MEDS: Pregabalin 50 MG Capsule PO (09:09)
[2023-05-06] MEDS: oxyCODONE 5 MG Tablet PO (09:09)
[2023-05-06 11:36] LABS: Bedside Glucose 144 mg/dL (74-106)
[2023-05-06 12:57] LABS: Pathologist Review Reviewed
--- NOTE | 2023-05-06 13:02 | PCM.PN.ID ---
Physical Exam Narrative Feeling better, no fever, no abd pain Const alert and no apparent distress General Appearance: cooperative Resp normal air movement and clear to auscultation bilaterally Cardio regular rate and regular rhythm GI soft to palpation, non-tender and non-distended Skin no rashes or lesions noted ID ID: Route of nutrition/ use of supplements: [] Nutritional Intake: [] IV Site: [] Aldana Catheter: [] Assessment & Plan Assessment/Plan (1) Acute UTI: PLAN: ESBL ecoli bacteremia due to uti. Will check renal u/s, recommend urology followup. Ordered midline, plan on one more week 1 ertapenem along with suppressive hiprex with vit C at discharge for correction prevention. (2) Cellulitis: PLAN: Abx as above. Chronic lymphedema. Will follow as needed, d/w supportive employment case manager, wrote rx (3) Bacteremia due to Escherichia coli:
--- NOTE | 2023-05-06 13:46 | PCM.TXEXTCAR ---
Diet Diet Order/Speech Therapy: 05/03/23 02:23 Diet: Consistent Carb - Calorie Controlled Food consistency:: Regular Liquid Consistency:: Regular/Thin Dietary Modifications:: Cardiac / Heart Healthy Sodium Restricted How many daily calories?: 1800 calorie Routine Orders/Code Status Suppository Type: Dulcolax 10mg Suppository Frequency: Daily PRN Code Status: Full Code Therapies Physical Therapy: Eval and Treat Occupational Therapy: Eval and Treat Problem/Diagnosis (1) Acute UTI: Status: Acute Code(s): N39.0 - Urinary tract infection, site not specified (2) Cellulitis: Status: Acute Code(s): L03.90 - Cellulitis, unspecified (3) Bacteremia due to Escherichia coli: Status: Acute Code(s): R78.81 - Bacteremia; B96.20 - Unspecified Escherichia coli [E. coli] as the cause of diseases classified elsewhere Plan #Acute metabolic encephalopathy secondary to UTI #Complicated ESBL E. coli UTI with bacteremia #Left lower extremity cellulitis #History of previous VTE #Diabetes mellitus type II #Class III obesity with BMI of 42.2 #Paroxysmal atrial fibrillation #COPD #Depression with anxiety #Hypertension #Restless leg syndrome #Obstructive sleep apnea #Anemia #Class III obesity with BMI of 44 The patient is a 73 y/o F w/ PMHx: 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 She was admitted and started on broad-spectrum antibiotics and improved, urine and blood cultures growing ESBL. ID consulted for antibiotic recommendations and patient to be discharged on ertapenem for 1 more week, with Hiprex and vitamin C and instructions to follow-up with urology. She was discharged back [facility] 05/06/2023 in stable condition. Allergies/Procedures Done in Hospital Allergies aspirin Allergy (Severe, Verified 04/18/23 20:21) Hives Penicillins Allergy (Severe, Verified 04/18/23 20:21) Anaphylaxis stops breathing Sulfa (Sulfonamide Antibiotics) Allergy (Severe, Verified 04/18/23 20:21) Anaphylaxis stops breathing latex Allergy (Verified 04/18/23 20:21) Rash Type of Care/Length of Stay Estimated LOS: More Than 30 Days Type of Care Needed: Intermediate Rehab Potential: Fair Prognosis: Fair Additional Orders/Day of Discharge Day of Discharge: 05/06/23 Discharge Plan Admission Admit Date/Time: 05/03/23 02:11 Primary Reason for Your Visit: Confusion and UTI Attending Provider: Georgina Plascencia Primary Care Provider: Rosa Silva Consulting Providers: Michael Galan; Suki Gasca; Fernando Guerrero Instructions Patient Instructions: Urinary Tract Infections in Women Additional Instructions / Restrictions: DISCHARGE INSTRUCTIONS PLEASE READ *Please take this with you to your next doctors appointment* -You will be discharged on ertapenem for 1 more week -You will also need to continue methenamine and you will take vitamin C daily, you will take this chronically from here on out -Please follow-up with urology upon discharge. Please call their office to schedule hospital follow-up appointment upon discharge. -Please call your primary care provider's office upon discharge to schedule a hospital follow up within 1 week. -For any concerning signs or symptoms please call 911 or proceed to the nearest emergency department Discharge Orders/Prescriptions Prescriptions: New ascorbic acid (vitamin C) 500 mg Tablet 500 mg PO BIDCM 30 Days Qty: 60 2RF ertapenem 1 gram Recon Soln 1 g IV Q24 7 Days Qty: 7 0RF Rx Instructions: dx: ESBL bacteremia Continued fluticasone propionate 1 SPRAY spray,suspension 1 spray NASAL QHS omeprazole 40 mg Capsule,Delayed Release(Dr/Ec) 40 mg PO DAILY multivitamin Tablet 1 tab PO DAILY acetaminophen 325 mg Tablet 650 mg PO Q4H PRN (Reason: Pain) bisacodyl 10 mg Suppository 10 mg ME DAILY PRN (Reason: Constipation) oxybutynin chloride 5 mg Tablet 5 mg PO QHS venlafaxine 75 mg capsule,extended release 24hr 75 mg PO DAILY Xarelto 15 mg Tablet 15 mg PO DINNER 30 Days Qty: 0 0RF Hold Instructions: until platelet count above 100,000 atorvastatin [Lipitor] 10 mg Tablet 10 mg PO QHS meclizine 25 mg Tablet 25 mg PO TID PRN (Reason: Vertigo) pramipexole [Mirapex] 0.25 mg Tablet 0.25 mg PO QHS modafinil 200 mg tablet 150 mg PO DAILY 2 Days Qty: 3 0RF pregabalin 50 mg Capsule 50 mg PO BID metformin 850 mg tablet 850 mg PO DAILY Arnuity Ellipta 100 mcg/actuation blister with device 1 inh INHALATION QHS methenamine hippurate 1 gram tablet 1 g PO BID sennosides-docusate sodium [Stool Softener-Stimulant Laxat] 8.6-50 mg Tablet 2 tab PO BID PRN PRN (Reason: Constipation) Qty: 0 0RF diltiazem HCl 240 mg Capsule,Extended Release 24hr 240 mg PO DAILY Qty: 0 0RF Rx Instructions: Hold for heart less than 60 or systolic blood pressure less than 110 mmHg. spironolactone 25 mg tablet 25 mg PO DAILY 30 Days Qty: 0 0RF ferrous sulfate [iron] 325 mg (65 mg iron) Tablet 325 mg PO QODAY 30 Days Qty: 0 0RF furosemide 20 mg tablet 40 mg PO DAILY 30 Days Qty: 0 0RF Rx Instructions: Hold if creatinine jumps more than 30% than baseline. insulin glargine [Basaglar KwikPen U-100 Insulin] 100 unit/mL (3 mL) insulin pen 6 unit SUBCUT QHS albuterol sulfate 2.5 mg /3 mL (0.083 %) Solution For Nebulization 2.5 mg inhalation Q2H PRN PRN (Reason: Dyspnea, wheezing) Qty: 0 0RF pramipexole 0.25 mg Tablet 0.25 mg PO QHS Qty: 0 0RF menthol-zinc oxide [Calmoseptine] 0.44-20.6 % Ointment 1 applic topical BID Qty: 0 0RF Protocol: *Topical Application Instructions APPLICATION INSTRUCTIONS: coccyx Discontinued levofloxacin 750 mg tablet 750 mg PO DAILY Qty: 7 0RF Referrals / Follow Up: Eunice Allen MD [Med Staff - Active Staff] - Within 2 Weeks (For recurrent UTIs) Rosa Silva MD [Primary Care Provider] - Within 1 Week Disposition Disposition (needs filled in before D/C Order can be placed): NonSkilled NH/Intermed Care
--- NOTE | 2023-05-06 13:46 | CASEMGMT ---
Patient will return to [facility] under intermediate level of care. Physicians will transport. Navya BUNCH
--- NOTE | 2023-05-06 13:49 | PCM.DC.SUM ---
Providers Date of Admission: 05/03/23 Date of Discharge: 05/06/23 Primary Care Physician: Dr. Rosa Silva MD Consultations 05/03/23 02:23 Consult: Infectious Disease Routine Consulting Provider: Michael Galan Reason for Consult: Recurrent UTI, LLE cellulitis EMERGENT Consult: No MD Notified: Yes Date Notified: 05/03/23 Time Notified: 06:32 Method of Notification: Answering Service Reason For Visit: UTI, CELLULITIS, ENCEPHALOPATHY Diagnosis Discharge Diagnosis (1) Acute UTI: Status: Acute Code(s): N39.0 - Urinary tract infection, site not specified (2) Cellulitis: Status: Acute Code(s): L03.90 - Cellulitis, unspecified (3) Bacteremia due to Escherichia coli: Status: Acute Code(s): R78.81 - Bacteremia; B96.20 - Unspecified Escherichia coli [E. coli] as the cause of diseases classified elsewhere Plan #Acute metabolic encephalopathy secondary to UTI #Complicated ESBL E. coli UTI with bacteremia #Left lower extremity cellulitis #History of previous VTE #Diabetes mellitus type II #Class III obesity with BMI of 42.2 #Paroxysmal atrial fibrillation #COPD #Depression with anxiety #Hypertension #Restless leg syndrome #Obstructive sleep apnea #Anemia #Class III obesity with BMI of 44 Medications at Discharge Home Medications fluticasone propionate 50 mcg/actuation nasal spray,suspension 1 spray QHS allergies 02/16/14 acetaminophen 325 mg tablet 650 mg PO Q4H PRN Pain 09/09/21 bisacodyl 10 mg rectal suppository 10 mg ME DAILY PRN Constipation 09/09/21 multivitamin 1 tab PO DAILY supplement 09/09/21 omeprazole 40 mg capsule,delayed release 40 mg PO DAILY gerd 09/09/21 oxybutynin chloride 5 mg tablet 5 mg PO QHS bladder spasms 09/09/21 venlafaxine 75 mg capsule,extended release 24 hr 75 mg PO DAILY mental health 05/25/22 rivaroxaban 15 mg tablet (Xarelto) 15 mg PO DINNER 30 days #0 tabs 05/28/22 atorvastatin 10 mg tablet (Lipitor) 10 mg PO QHS cholesterol 09/09/22 meclizine 25 mg tablet 25 mg PO TID PRN Vertigo 09/09/22 pramipexole 0.25 mg tablet (Mirapex) 0.25 mg PO QHS restless legs 09/09/22 modafinil 200 mg tablet 150 mg (0.75 x 200 mg) PO DAILY 2 days #3 tabs 09/26/22 pregabalin 50 mg capsule 50 mg PO BID NEUROPATHY 10/09/22 fluticasone furoate 100 mcg/actuation blister powder for inhalation (Arnuity Ellipta) 1 inh inhalation QHS COPD 12/23/22 metformin 850 mg tablet 850 mg PO DAILY DM 12/23/22 methenamine hippurate 1 gram tablet 1 g PO BID UTI 12/23/22 diltiazem HCl 240 mg capsule,extended release 24 hr 240 mg PO DAILY #0 caps 12/27/22 ferrous sulfate 325 mg (65 mg iron) tablet (iron) 325 mg PO QODAY supplement 30 days #0 tabs 12/27/22 furosemide 20 mg tablet 40 mg (2 x 20 mg) PO DAILY EDEMA 30 days #0 tabs 12/27/22 sennosides 8.6 mg-docusate sodium 50 mg tablet (Stool Softener-Stimulant Laxative) 2 tab PO BID PRN PRN Constipation #0 tabs 12/27/22 spironolactone 25 mg tablet 25 mg PO DAILY diuretic 30 days #0 tabs 12/27/22 insulin glargine 100 unit/mL (3 mL) subcutaneous pen (Basaglar KwikPen U-100 Insulin) 6 unit subcut QHS diabetes 01/26/23 albuterol sulfate 2.5 mg/3 mL (0.083 %) solution for nebulization 2.5 mg (3 mL) inhalation Q2H PRN PRN Dyspnea, wheezing #0 mL 01/31/23 menthol 0.44 %-zinc oxide 20.6 % topical ointment (Calmoseptine) 1 applic topical BID #0 grams 01/31/23 pramipexole 0.25 mg tablet 0.25 mg PO QHS #0 tabs 01/31/23 ascorbic acid (vitamin C) 500 mg tablet 500 mg PO BIDCM 30 days #60 tabs 05/06/23 ertapenem 1 gram solution for injection 1 g IV Q24 7 days #7 ea 05/06/23 Hospital Course Summary of Care Provided Minutes Spent on Discharge: 40 Hospital Course: The patient is a 73 y/o F w/ PMHx: 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 She was admitted and started on broad-spectrum antibiotics and improved, urine and blood cultures growing ESBL. ID consulted for antibiotic recommendations and patient to be discharged on ertapenem for 1 more week, with Hiprex and vitamin C and instructions to follow-up with urology. She was discharged back to [facility] 05/06/2023 in stable condition. Weight / BMI Weight Weight: 101.4 kg Body Mass Index (BMI) 43.9 ABG / Lab / Microbiology Data 05/06/23 04:09 05/06/23 04:09 Laboratory: Laboratory Results - last 24 hr 05/04/23 07:45: Diff Path Review Reviewed 05/05/23 16:53: POC Glucose 175 H 05/05/23 22:43: POC Glucose 161 H 05/06/23 04:09: WBC 4.6, RBC 3.96 L, Hgb 10.8 L, Hct 33.4 L, MCV 84.3, MCH 27.3, MCHC 32.3, RDW Std Deviation 44.8 H, RDW Coeff of Melissa 14.6, Plt Count 143 L, MPV 10.6, Immature Gran % (Auto) 0.200, Neut % (Auto) 57.5, Lymph % (Auto) 28.1, [place] % (Auto) 9.8, Eos % (Auto) 3.5, Baso % (Auto) 0.9, Absolute Neuts (auto) 2.6, Absolute Lymphs (auto) 1.29, Nucleated RBC % 0, Sodium 140, Potassium 3.6, Chloride 105, Carbon Dioxide 28.0, Anion Gap 7, BUN 20 H, Creatinine 0.57, Estim Creat Clear Calc 34.91, Est GFR (MDRD) Af Amer 134, Est GFR (MDRD) Non-Af 111, BUN/Creatinine Ratio 35.3 H, Glucose 101, Calcium 9.2 05/06/23 06:30: POC Glucose 103 05/06/23 11:09: POC Glucose 144 H Microbiology: Microbiology 05/03/23 01:00 Urine, Catheterized Urine Culture - Final ESBL Escherichia coli 05/03/23 00:53 Blood Culture (Wb) - Right Hand Blood Culture - Final GNR lactose operating room rn 05/03/23 00:53 Blood Culture (Wb) - Left Forearm Blood Culture - Final ESBL Escherichia coli 05/03/23 01:00 Nasal Secretion SARS-CoV-2 & FLU Antigen (Rapid) - Final Meaningful Use Info Meaningful Use Diagnoses (Choose all that apply): None applicable Discharge Plan Admission Admit Date/Time: 05/03/23 02:11 Primary Reason for Your Visit: Confusion and UTI Attending Provider: Georgina Plascencia Primary Care Provider: Rosa Silva Consulting Providers: Michael Galan; Suki Gasca; Fernando Guerrero Instructions Patient Instructions: Urinary Tract Infections in Women Additional Instructions / Restrictions: DISCHARGE INSTRUCTIONS PLEASE READ *Please take this with you to your next doctors appointment* -You will be discharged on ertapenem for 1 more week -You will also need to continue methenamine and you will take vitamin C daily, you will take this chronically from here on out -Please follow-up with urology upon discharge. Please call their office to schedule hospital follow-up appointment upon discharge. -Please call your primary care provider's office upon discharge to schedule a hospital follow up within 1 week. -For any concerning signs or symptoms please call 911 or proceed to the nearest emergency department Discharge Orders/Prescriptions Prescriptions: New ascorbic acid (vitamin C) 500 mg Tablet 500 mg PO BIDCM 30 Days Qty: 60 2RF ertapenem 1 gram Recon Soln 1 g IV Q24 7 Days Qty: 7 0RF Rx Instructions: dx: ESBL bacteremia Continued fluticasone propionate 1 SPRAY spray,suspension 1 spray NASAL QHS omeprazole 40 mg Capsule,Delayed Release(Dr/Ec) 40 mg PO DAILY multivitamin Tablet 1 tab PO DAILY acetaminophen 325 mg Tablet 650 mg PO Q4H PRN (Reason: Pain) bisacodyl 10 mg Suppository 10 mg ME DAILY PRN (Reason: Constipation) oxybutynin chloride 5 mg Tablet 5 mg PO QHS venlafaxine 75 mg capsule,extended release 24hr 75 mg PO DAILY Xarelto 15 mg Tablet 15 mg PO DINNER 30 Days Qty: 0 0RF Hold Instructions: until platelet count above 100,000 atorvastatin [Lipitor] 10 mg Tablet 10 mg PO QHS meclizine 25 mg Tablet 25 mg PO TID PRN (Reason: Vertigo) pramipexole [Mirapex] 0.25 mg Tablet 0.25 mg PO QHS modafinil 200 mg tablet 150 mg PO DAILY 2 Days Qty: 3 0RF pregabalin 50 mg Capsule 50 mg PO BID metformin 850 mg tablet 850 mg PO DAILY Arnuity Ellipta 100 mcg/actuation blister with device 1 inh INHALATION QHS methenamine hippurate 1 gram tablet 1 g PO BID sennosides-docusate sodium [Stool Softener-Stimulant Laxat] 8.6-50 mg Tablet 2 tab PO BID PRN PRN (Reason: Constipation) Qty: 0 0RF diltiazem HCl 240 mg Capsule,Extended Release 24hr 240 mg PO DAILY Qty: 0 0RF Rx Instructions: Hold for heart less than 60 or systolic blood pressure less than 110 mmHg. spironolactone 25 mg tablet 25 mg PO DAILY 30 Days Qty: 0 0RF ferrous sulfate [iron] 325 mg (65 mg iron) Tablet 325 mg PO QODAY 30 Days Qty: 0 0RF furosemide 20 mg tablet 40 mg PO DAILY 30 Days Qty: 0 0RF Rx Instructions: Hold if creatinine jumps more than 30% than baseline. insulin glargine [Basaglar KwikPen U-100 Insulin] 100 unit/mL (3 mL) insulin pen 6 unit SUBCUT QHS albuterol sulfate 2.5 mg /3 mL (0.083 %) Solution For Nebulization 2.5 mg inhalation Q2H PRN PRN (Reason: Dyspnea, wheezing) Qty: 0 0RF pramipexole 0.25 mg Tablet 0.25 mg PO QHS Qty: 0 0RF menthol-zinc oxide [Calmoseptine] 0.44-20.6 % Ointment 1 applic topical BID Qty: 0 0RF Protocol: *Topical Application Instructions APPLICATION INSTRUCTIONS: coccyx Discontinued levofloxacin 750 mg tablet 750 mg PO DAILY Qty: 7 0RF Referrals / Follow Up: Eunice Allen MD [Med Staff - Active Staff] - Within 2 Weeks (For recurrent UTIs) Rosa Silva MD [Primary Care Provider] - Within 1 Week Disposition Disposition (needs filled in before D/C Order can be placed): NonSkilled NH/Intermed Care Charges/Coding Visit Charges Inpatient E&M: 06568 Disch Hosp >30min
[2023-05-06] MEDS: Ertapenem Sod 1 GM in 0.9% Normal Saline (50mL MB+) 50 ML IV (14:45)
--- NOTE | 2023-05-06 15:11 | CASEMGMT ---
Patient has a Healthcare Power of Stapler Machine and it is on file at [facility]. Patient does not have a Healthcare Living Will. Navya BUNCH
--- NOTE | 2023-05-06 15:47 | CASEMGMT ---
Discharge Planning Discharge orders, signed med list, and transport time sent to [facility] via [facility]. [facility] will transport patient by wheelchair at 5p. Nursing, SW, patient, and her daughter updated. Lizz Faith, Discharge Planning Asst.
[2023-05-06] MEDS: Rivaroxaban 15 MG Tablet PO (16:37)
[2023-05-06 16:43] LABS: Bedside Glucose 137 mg/dL (74-106)
== END 2023-05-06 17:51 | disposition intermediate care facility (04) | DRG 689 ==
LOC: ED 02:13 → PCU 02:23
PROVIDERS: Internal Medicine; Admitting Provider Family Medicine; Emergency Provider Emergency Medicine; PCP Internal Medicine; Visit Provider Internal Medicine
DX: N39.0 Urinary tract infection, site not specified (principal); G93.41 Metabolic encephalopathy; R78.81 Bacteremia; J96.11 Chronic respiratory failure with hypoxia; I13.0 Hypertensive heart and chronic kidney disease with heart failure and stage 1 through stage 4 chronic kidney disease, or unspecified chronic kidney disease; L03.116 Cellulitis of left lower limb; Z68.41 Body mass index [BMI] 40.0-44.9, adult; Z16.12 Extended spectrum beta lactamase (ESBL) resistance; C73 Malignant neoplasm of thyroid gland; B96.20 Unspecified Escherichia coli [E. coli] as the cause of diseases classified elsewhere; I50.9 Heart failure, unspecified; I48.0 Paroxysmal atrial fibrillation; G25.81 Restless legs syndrome; E11.22 Type 2 diabetes mellitus with diabetic chronic kidney disease; J44.9 Chronic obstructive pulmonary disease, unspecified; N18.32 Chronic kidney disease, stage 3b; E66.01 Morbid (severe) obesity due to excess calories; Z79.4 Long term (current) use of insulin; E11.42 Type 2 diabetes mellitus with diabetic polyneuropathy; D50.9 Iron deficiency anemia, unspecified; E04.2 Nontoxic multinodular goiter; F32.A Depression, unspecified; E78.5 Hyperlipidemia, unspecified; G47.33 Obstructive sleep apnea (adult) (pediatric); E78.00 Pure hypercholesterolemia, unspecified; K21.9 Gastro-esophageal reflux disease without esophagitis; I89.0 Lymphedema, not elsewhere classified; F41.9 Anxiety disorder, unspecified; G47.419 Narcolepsy without cataplexy; G89.4 Chronic pain syndrome; Z23 Encounter for immunization; Z79.51 Long term (current) use of inhaled steroids; Z79.84 Long term (current) use of oral hypoglycemic drugs; Z79.01 Long term (current) use of anticoagulants; Z99.81 Dependence on supplemental oxygen; Z79.899 Other long term (current) drug therapy
CPT/HCPCS: 36415; 70450; 71045; 76770; 80048; 80053; 81001; 82962; 83605; 83735; 84100; 84145; 85025; 87040; 87077; 87086; 87088; 87186; 87428; 93005; 94002; 94003; 94640; 94668; 97110; 97162; 97166; 97530; 97535; 99285; J2185; J7030; 90662; A4216

== ENCOUNTER → 2023-05-07 | Outpatient (REF) | payer MEDICARE, MEDICAID, SELFPAY ==
[2023-05-07 09:17] LABS: Absolute Lymphocyte Count 1.17 X10^3/uL (0.83-4.51); Absolute Neutrophil Count 1.9 X10^3/uL (2.0-7.7); Basophil# 0.03 X10^3/uL; Basophil% 0.8 % (0-1); Eosinophil# 0.15 X10^3/uL; Eosinophils% 4.1 % (0-5); Hematocrit 35.4 % (37-47); Hemoglobin 11.5 g/dL (12.0-15.0); Lymphocyte # 1.17 X10^3/ul (0.83-4.51); Lymphocyte % 31.9 % (19-41); Mean Corp Hgb Conc 32.5 g/dL (32-36); Mean Corpuscular Hgb 27.4 pg (27.0-32.0); Mean Corpuscular Volume 84.3 fL (81-99); Monocyte# 0.41 X10^3/uL; Monocyte% 11.2 % (0-10); NRBC Flagged by Analyzer 0 % (0-5); Neutrophil % 51.7 % (47-70); Platelet Count 159 K/mm3 (150-450); RBC Distribution Width CV 14.6 % (11.6-14.6); RBC Distribution Width SD 44.6 fl (35.1-43.9); White Blood Count 3.7 K/mm3 (4.4-11.0)
[2023-05-07 09:38] LABS: Vitamin D,25 Hydroxy 34.6 ng/mL
[2023-05-07 09:39] LABS: Anion Gap 5 (5-15); BUN 20 mg/dL (7-18); BUN/Creat Ratio 35.3 RATIO (10-20); Calcium,Total 9.4 mg/dL (8.5-10.1); Chloride 108 mmol/L (98-107); Cholesterol 123 mg/dL (200); Creatinine, Serum 0.57 mg/dL (0.55-1.02); EST Glomerular Filtration Rate 111 mL/min (>60); Est Glom Filt Rate - Afr Amer 134 mL/min (>60); Glucose 100 mg/dL (74-106); High Density Lipoprotein 31 mg/dL; Potassium 3.5 mmol/L (3.5-5.1); Sodium Level 141 mmol/L (136-145); Triglycerides 242 mg/dL; Very Low Density Lipoprotein 48 mg/dL (5-40)
[2023-05-07 10:46] LABS: Hemoglobin A1c 6.4 % (3.8-5.6)
== END ==
LOC: OLS.SW 05:00
PROVIDERS: PCP Internal Medicine; Visit Provider Internal Medicine
DX: E78.5 Hyperlipidemia, unspecified (principal); E55.9 Vitamin D deficiency, unspecified; E11.9 Type 2 diabetes mellitus without complications; I10 Essential (primary) hypertension
CPT/HCPCS: 36415; 80048; 80061; 82306; 83036; 83735; 85025

== ENCOUNTER → 2023-05-14 | Outpatient (REF) | payer MEDICARE, MEDICAID, SELFPAY ==
[2023-05-14 08:51] LABS: Hematocrit 36.7 % (37-47); Hemoglobin 11.4 g/dL (12.0-15.0); Mean Corp Hgb Conc 31.1 g/dL (32-36); Mean Corpuscular Hgb 26.7 pg (27.0-32.0); Mean Corpuscular Volume 85.9 fL (81-99); Mean Platelet Vol. 11.7 fl (6.2-12.0); Platelet Count 150 K/mm3 (150-450); RBC Distribution Width CV 14.8 % (11.6-14.6); RBC Distribution Width SD 46.1 fl (35.1-43.9); Red Blood Count 4.27 M/mm3 (4.2-5.4); White Blood Count 4.7 K/mm3 (4.4-11.0)
[2023-05-14 09:05] LABS: Anion Gap 8 (5-15); BUN 23 mg/dL (7-18); BUN/Creat Ratio 37.1 RATIO (10-20); Calcium,Total 9.5 mg/dL (8.5-10.1); Chloride 106 mmol/L (98-107); Creatinine, Serum 0.62 mg/dL (0.55-1.02); EST Glomerular Filtration Rate 100 mL/min (>60); Est Glom Filt Rate - Afr Amer 121 mL/min (>60); Glucose 125 mg/dL (74-106); Magnesium 1.9 mg/dL (1.6-2.6); Potassium 3.5 mmol/L (3.5-5.1); Sodium Level 140 mmol/L (136-145)
== END ==
LOC: OLS.SW 05:00
PROVIDERS: PCP Internal Medicine; Visit Provider Internal Medicine
DX: D64.9 Anemia, unspecified (principal); J44.9 Chronic obstructive pulmonary disease, unspecified; E11.9 Type 2 diabetes mellitus without complications
CPT/HCPCS: 36415; 80048; 83735; 85027

== ENCOUNTER → 2023-05-20 | Outpatient (REF) | payer MEDICARE, MEDICAID, SELFPAY ==
[2023-05-20 08:10] LABS: INR Fingerstick 1.8
== END ==
LOC: OLS.SW 05:00
PROVIDERS: PCP Internal Medicine; Visit Provider Internal Medicine
DX: Z01.818 Encounter for other preprocedural examination (principal); I48.91 Unspecified atrial fibrillation
CPT/HCPCS: 36416; 85610

== ENCOUNTER → 2023-05-23 | Outpatient (REF) | payer MEDICARE, MEDICAID, SELFPAY ==
[2023-05-23 12:03] LABS: International Normalized Ratio 1.1; Prothrombin Time (Protime)PT. 14.2 SECONDS (11.7-14.9)
[2023-05-23 12:13] LABS: ALB/GLOB Ratio 0.8 RATIO (0.9-2.4); AST(SGOT) 10 U/L (15-37); Alanine Aminotransfer ALT/SGPT 14 U/L (13-56); Alkaline Phosphatase 95 U/L (45-117); Anion Gap 4 (5-15); BUN 20 mg/dL (7-18); BUN/Creat Ratio 33.3 RATIO (10-20); Calcium,Total 9.7 mg/dL (8.5-10.1); Chloride 109 mmol/L (98-107); EST Glomerular Filtration Rate 104 mL/min (>60); Est Glom Filt Rate - Afr Amer 125 mL/min (>60); Globulin 3.8 g/dL (2.2-4.2); Glucose 126 mg/dL (74-106); Potassium 3.7 mmol/L (3.5-5.1); Protein, Total 6.8 g/dL (6.4-8.2); Sodium Level 144 mmol/L (136-145)
== END ==
LOC: OLS.SW 11:30
PROVIDERS: PCP Internal Medicine; Visit Provider Internal Medicine
DX: Z01.818 Encounter for other preprocedural examination (principal); E11.22 Type 2 diabetes mellitus with diabetic chronic kidney disease; N18.9 Chronic kidney disease, unspecified; D64.9 Anemia, unspecified; I48.91 Unspecified atrial fibrillation
CPT/HCPCS: 36415; 80053; 85610

== ENCOUNTER → 2023-06-03 | Outpatient (REF) | payer MEDICARE, MEDICAID, SELFPAY ==
[2023-06-03 09:23] LABS: Absolute Lymphocyte Count 1.64 X10^3/uL (0.83-4.51); Absolute Neutrophil Count 3.6 X10^3/uL (2.0-7.7); Basophil# 0.03 X10^3/uL; Basophil% 0.5 % (0-1); Eosinophil# 0.16 X10^3/uL; Eosinophils% 2.6 % (0-5); Hematocrit 37.9 % (37-47); Hemoglobin 11.2 g/dL (12.0-15.0); Lymphocyte # 1.64 X10^3/ul (0.83-4.51); Lymphocyte % 26.8 % (19-41); Mean Corp Hgb Conc 29.6 g/dL (32-36); Mean Corpuscular Hgb 27.2 pg (27.0-32.0); Mean Platelet Vol. 11.4 fl (6.2-12.0); Monocyte# 0.67 X10^3/uL; NRBC Flagged by Analyzer 0 % (0-5); Neutrophil # 3.59 X10^3/uL (2.7-7.7); Neutrophil % 58.8 % (47-70); Platelet Count 117 K/mm3 (150-450); RBC Distribution Width CV 15.1 % (11.6-14.6); RBC Distribution Width SD 51.5 fl (35.1-43.9); Red Blood Count 4.12 M/mm3 (4.2-5.4); White Blood Count 6.1 K/mm3 (4.4-11.0)
== END ==
LOC: OLS.SW 05:00
PROVIDERS: PCP Internal Medicine; Visit Provider Internal Medicine
DX: E11.9 Type 2 diabetes mellitus without complications (principal)
CPT/HCPCS: 36415; 85025

== ENCOUNTER → 2023-06-10 | Outpatient (REF) | payer MEDICARE, MEDICAID, SELFPAY ==
[2023-06-10 08:46] LABS: Absolute Lymphocyte Count 1.33 X10^3/uL (0.83-4.51); Absolute Neutrophil Count 3.4 X10^3/uL (2.0-7.7); Basophil# 0.02 X10^3/uL; Basophil% 0.4 % (0-1); Eosinophils% 1.8 % (0-5); Hematocrit 33.2 % (37-47); Hemoglobin 10.7 g/dL (12.0-15.0); Lymphocyte # 1.33 X10^3/ul (0.83-4.51); Lymphocyte % 23.8 % (19-41); Mean Corp Hgb Conc 32.2 g/dL (32-36); Mean Corpuscular Volume 83.8 fL (81-99); Monocyte# 0.71 X10^3/uL; Monocyte% 12.7 % (0-10); NRBC Flagged by Analyzer 0 % (0-5); Neutrophil # 3.39 X10^3/uL (2.7-7.7); Neutrophil % 60.8 % (47-70); Platelet Count 111 K/mm3 (150-450); RBC Distribution Width CV 14.6 % (11.6-14.6); RBC Distribution Width SD 44.3 fl (35.1-43.9); Red Blood Count 3.96 M/mm3 (4.2-5.4); White Blood Count 5.6 K/mm3 (4.4-11.0)
== END ==
LOC: OLS.SW 05:00
PROVIDERS: PCP Internal Medicine; Visit Provider Internal Medicine
DX: D64.9 Anemia, unspecified (principal); J44.9 Chronic obstructive pulmonary disease, unspecified; E11.40 Type 2 diabetes mellitus with diabetic neuropathy, unspecified
CPT/HCPCS: 36415; 85025

== ENCOUNTER → 2023-06-24 | Outpatient (REF) | payer MEDICARE, MEDICAID, SELFPAY ==
[2023-06-24 08:09] LABS: Partial Thromboplast Time 34.2 Seconds (24.1-36.2)
[2023-06-24 09:07] LABS: Creatinine, Serum 0.74 mg/dL (0.55-1.02); EST Glomerular Filtration Rate 81 mL/min (>60); Est Glom Filt Rate - Afr Amer 98 mL/min (>60)
== END ==
LOC: OLS.SW 05:00
PROVIDERS: PCP Internal Medicine; Visit Provider Internal Medicine
DX: Z01.818 Encounter for other preprocedural examination (principal); I48.91 Unspecified atrial fibrillation
CPT/HCPCS: 36415; 82565; 85730

== ENCOUNTER → 2023-07-16 | Outpatient (REF) | payer MEDICARE, MEDICAID, SELFPAY ==
--- OUTSIDE RECORDS SUMMARY | 2023-07-16 04:58 | XMS RPT_ITS | CCD ---
Author Name Unknown Address [address] [place] [address] Organization [facility] Care Team Providers Care [employer] Officer Name Role Phone Unavailable Primary Care Provider UnavailRosa Jones MD Primary Care Provider Rosa Silva MD Primary Care Provider [phone] ISELA ROSA Jules Primary Care Unavailable PETROS ORTIZ Referring Unavailable HANG MARTINEZ Attending SARAH Feliz Referring Unavailable SARAH HUBBARD Attending Unavailable BATSHEVA AZAR Referring Unavailable GUDLA, ROSA D Primary Care Unavailable SARAH HUBBARD Referring Unavailable JUAN JOSE GUTIERREZ Attending Unavailable CELIA TAVERAS Attending Unavailable CELIA TAVERAS Admitting Unavailable GUDLA, ROSA D Primary Care Unavailable GUDLA, ROSA D Primary Care Unavailable HANG MARTINEZ Referring Unavai lable GUDLA, ROSA D Primary Care Unavailable HANG MARTINEZ Referring Unavai lable Allergies Allergy Classification Reported Allergen(s) Allergy Type Date of Onset Reaction(s) Facility (10 sources) Latex; Translations: [LATEX, NATURAL RUBBER] Drug Allergy 4 Itching [facility] Work Phone: (10 sources) Penicillins; Translations: [PENICILLINS] Propensity to adverse reactions 7 Anaphylaxis [facility] Work Phone: (10 sources) Salicylate product; Translations: [SALICYLATES] Propensity to adverse reactions 7 Hives [facility] Work Phone: (10 sources) Sulfonamides (Antibiotic); Translations: [SULFA (SULFONAMIDE ANTIBIOTICS)] Propensity to adverse reactions 7 Anaphylaxis [facility] Work Phone: (9 sources) Aspirin; Translations: [ASPIRIN] Drug Allergy 1 Unknown [facility] Medications Completed/Discontinued Medications Medication Drug Class(es) Dates Sig (Normalized) Sig (Original) acetaminophen 325 mg oral tablet (6 sources) take 2 tablets by mouth every four hours as needed acetaminophen (TYLENOL) 325 mg tablet Take 650 mg by mouth every 4 hours as needed for fever (specify temp.). 0 Active Problems Active Problems Problem Classification Problem Date Documented Da te Episodic/Chronic Asthma (9 sources) Unspecified asthma, uncomplicated; Translations: [Asthma, unspecified type, unspecified] Onset: 12-26-2006 12-26-2006 Chronic Cancer of thyroid (2 sources) Malignant tumor of thyroid gland; Translations: [Malignant neoplasm of thyroid gland] Onset: 06-27-2023 06-27-2023 Chronic Diabetes mellitus with complications (9 sources) Type 2 diabetes mellitus; Translations: [Type II or unspecified type diabetes mellitus without mention of complication, uncontrolled] Onset: 12-26-2006 02-02-2014 Chronic Disorders of lipid metabolism (9 sources) Hyperlipidemia; Translations: [Hyperlipidemia, unspecified] Onset: 07-01-2007 07-01-2007 Chronic Essential hypertension (9 sources) Benign essential hypertension; Translations: [Essential (primary) hypertension] Onset: 11-01-2006 11-01-2006 Chronic Genitourinary symptoms and ill-defined conditions (18 sources) Urge incontinence of urine; Translations: [Urge incontinence] Onset: 07-05-2011 07-05-2011 Chronic Mood disorders (9 sources) Depressive disorder; Translations: [Other specified depressive episodes] Onset: 12-26-2006 12-26-2006 Chronic Neoplasms of unspecified nature or uncertain behavior (4 sources) Follicular neoplasm of thyroid; Translations: [Neoplasm of unspecified behavior of endocrine glands and other parts of nervous system] Onset: 06-26-2023 06-10-2023 Episodic Nutritional deficiencies (9 sources) Vitamin D deficiency; Translations: [Vitamin D deficiency, unspecified] Onset: 07-02-2007 07-02-2007 Chronic Osteoarthritis (9 sources) Degenerative joint disease involving multiple joints; Translations: [Polyosteoarthritis , unspecified] Onset: 12-26-2006 12-26-2006 Chronic Osteoporosis (9 sources) Osteoporosis; Translations: [Age-related osteoporosis without current pathological fracture] Onset: 02-12-2013 02-12-2013 Chronic Other nervous system disorders (9 sources) Critical illness polyneuropathy; Translations: [Critical illness polyneuropathy] Onset: 10-27-2006 07-24-2021 Chronic Other nutritional; endocrine; and metabolic disorders (9 sources) Morbid obesity; Translations: [Morbid (severe) obesity due to excess calories] Onset: 08-23-2011 08-23-2011 Chronic Other nutritional; endocrine; and metabolic disorders (8 sources) Body mass index 40+ - severely obese; Translations: [Morbid (severe) obesity due to excess calories] Onset: 04-25-2023 04-25-2023 Chronic Other nutritional; endocrine; and metabolic disorders (2 sources) Morbid (severe) obesity due to excess calories; Translations: [Morbid obesity (HCC)] Onset: 08-23-2011 Chronic Other skin disorders (1 source) Mass of neck; Translations: [Localized swelling, mass and lump, neck] 04-26-2023 Episodic Other skin disorders (1 source) Localized swelling, mass and lump, neck; Translations: [Neck mass] Onset: 05-24-2023 Episodic Other upper respiratory disease (9 sources) Chronic rhinitis; Translations: [Chronic rhinitis] Onset: 12-26-2006 12-26-2006 Chronic Residual codes; unclassified (9 sources) Obstructive sleep apnea syndrome; Translations: [Obstructive sleep apnea (adult) (pediatric)] Onset: 11-01-2006 07-24-2021 Chronic Residual codes; unclassified (9 sources) Periodic limb movement disorder; Translations: [Periodic limb movement disorder] Onset: 11-01-2006 11-01-2006 Chronic Thyroid disorders (2 sources) Nontoxic multinodular goiter; Translations: [Nontoxic goiter, unspecified] Onset: 04-25-2023 Chronic Past or Other Problems Problem Classification Problem Date Documented Date Episodic/Chronic Calculus of urinary tract (9 sources) Kidney stone; Translations: [Calculus of kidney] Onset: 08-23-2011 08-23-2011 Episodic Headache; including migraine (9 sources) Headache; Translations: [Headache] Onset: 12-26-2006 12-26-2006 Episodic Other diseases of veins and lymphatics (9 sources) Vascular insufficiency; Translations: [Venous insufficiency (chronic) (peripheral)] Onset: 07-05-2011 07-05-2011 Episodic Spondylosis; intervertebral disc disorders; other back problems (9 sources) Low back pain; Translations: [Lumbago] Onset: 12-26-2006 07-24-2021 Episodic Results Test Name Value Interpretation Reference Range Facil ity Vital Signs Date Time Vital Sign Value Performing Clinician Faci lity 06-07-2023 08:24-0500 Body height 157.5 cm Hang Martinez MD Work Phone: [facility] 06-07-2023 08:24-0500 Body weight 97.07 kg Hang Martinez MD Work Phone: [facility] 06-07-2023 08:24-0500 Diastolic blood pressure 53 mm[Hg] Hang Martinez MD Work Phone: [facility] 06-07-2023 08:24-0500 Heart rate 92 /min Hang Martinez MD Work Phone: [facility] 06-07-2023 08:24-0500 Systolic blood pressure 125 mm[Hg] Hang Martinez MD Work Phone: [facility] Encounters Encounter Date Encounter Type Care Provider Facility Start: 06-27-2023 End: 06-27-2023 ambulatory ROSA SILVA Facility:[facility] Start: 06-27-2023 End: 06-27-2023 Patient encounter procedure Juan Jose Gutierrez MD Work Phone: Otolaryngology Procedures Date Procedure Procedure Detail Performing Clinician Start: 06-26-2023 Ct soft tissue neck w/contrast material Hang Martinez MD Work Phone: Start: 06-28-2005 Colonoscopy Sarah Hubbard MD Work Phone: Plan of Treatment Date Care Activity Detail Author Start: 06-07-2024 BP Controlled (<130/80) BP Controlle d (<130/80) [facility] Start: 06-27-2023 End: 09-26-2023 Basic metabolic 2000 panel - Serum or Plasma BASIC METABOLIC PNL Lab Routine Thyroid cancer (HCC) Expected: 06/27/2023, Expires: 09/26/2023 [facility] Work Phone: Immunizations Immunization Date Immunization Notes Care Provider Fa cili 06-21-2021 influenza virus vacc ine, unspecified formulation Sarah Hubbard MD Work Phone: [facility] 05-09-2018 influenza virus vacc ine, unspecified formulation Sarah Hubbard MD Work Phone: [facility] 05-13-2014 influenza, seasonal, injectable Sarah Hubbard MD Work Phone: [facility] 05-15-2013 influenza virus vacc ine, unspecified formulation Sarah Hubbard MD Work Phone: [facility] Work Phone: 11-08-2012 pneumococcal polysaccharide vaccine, 23 valent Sarah Hubbard MD Work Phone: [facility] 05-12-2012 influenza virus vacc ine, unspecified formulation Sarah Hubbard MD Work Phone: [facility] Work Phone: 05-16-2011 influenza virus vacc ine, unspecified formulation Sarah Hubbard MD Work Phone: [facility] Work Phone: 11-04-2008 tetanus and diphther ia toxoids, adsorbed, preservative free, for adult use (2 Lf of tetanus toxoid and 2 Lf of diphtheria toxoid) Sarah Hubbard MD Work Phone: [facility] Work Phone: 09-02-2008 influenza virus vacc ine, unspecified formulation Sarah Hubbard MD Work Phone: [facility] Work Phone: 06-26-2007 influenza virus vacc ine, unspecified formulation Sarah Hubbard MD Work Phone: [facility] Work Phone: 07-29-1994 pneumococcal polysaccharide vaccine, 23 marlenaent Sarah Hubbard MD Work Phone: [facility] Work Phone: Payers Date Payer Category Payer Medicare AETNA MEDICARE A ETNA MEDICARE ASSURE HMO D SNP [id number] 2021-Present [phone] [address] [place] [address] Medicare [id number] 2021 Medicare [id number] 2019 Medicaid [employer] A[employer] MEDICAID [id number] 2019-Present [phone] [address] [place] [address] Medicaid [id number] 2019 Medicaid [id number] Social History Date Type Detail Facility Start: 07-05-2011 Tobacco smoking stat [facility] Never smoked tobacco [facility] Work Phone: Start: 07-05-2011 Tobacco use and exposure Smokeless tobacco non-user [facility] Work Phone: Start: 03-14-2022 End: 06-27-2023 Alcohol intake Current non-drinker of alcohol (finding) [facility] Start: 03-22-2016 End: 04-25-2023 History of Social function [facility] Start: 03-22-2016 End: 04-25-2023 Tobacco use panel [facility] National Score (1-100), lower number is lower risk Not on file [facility] Start: 12-26-2006 Alcohol Comment rare [facility] Start: 1950 Sex Assigned At Not on file [facility] Start: 1950 Sex Assigned At Female [facility] Start: 06-19-2023 Gender identity Identifies as female gender (finding) [facility] Medical Equipment Procedure Code Equipment Code Equipment Origin al Text Equipment Identifier Dates Stent Uret 7fr 2 4cm W/O Gw Inl - [id number] Start: 01-13-2013 TEST BLOOD SUGAR 4 TIMES PER DAY. DX: 250.00. INSULIN DEP: YES. AM-[employer] Diabetic Supplies. [employer] Start: 01-07-2014 Clinical Notes 08-23-2011 to 06-27-2023 Telephone Encounter - Liz Gomez RN - 06/27/2023 4:34 PM ESTSJuan Jose roman MD - 06/27/2023 2:50 PM Cate Estrada - 06/27/2023 2:29 PM EST Note Date & Type Note Facility 06-27-2023 Note HNO ID: [id number] Author: Juan Jose Gutierrez MD Service: ? Author Type: Physician Type: Progress Notes Filed: 06/27/2023 4:53 PM Note Text: [facility] Consult This consult was requested by Sarah Hubbard for an opinion regarding thyroid mass. My final recommendations will be communicated to the requesting provider by way of shared EMR or letter via the [place] mail. HPI: Sandy Bal is a 73 year old female, non-smoker, with history of AFIB, sleep apnea, low platelets, HTN and HLD. She saw Dr. Ortiz in February because she noticed neck mass around 02/17, and around that time she started choking and experiencing difficulty swallowing. US and FNA were performed in Dr. Hubbard's office 04/25/23. Poorly defined heterogenous mass involving entire left thyroid was found on US, and FNA biopsy report (04/25/23) was suspicious for malignancy. 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 At present visit, Ms. Bal reports that her left neck feels bigger than it did at her visit with Dr. Hubbard. This is causing her problems with swallowing and she sometimes chokes on her food. She also endorses a headache in the back of the head. She has issues with mobility, requiring use of a wheelchair. PAST MEDICAL HISTORY Diagnosis Date Acute kidney failure with other specified pathological lesion in kidney October 2006 Temporary dialysis Anemia, unspecified 12/26/2006 Bowel disease IBD Cellulitis 2010, 2011 lower legs Chronic rhinitis 12/26/2006 Critical illness polyneuropathy (HCC) October 2006 Depressive disorder, not elsewhere classified 12/26/2006 Embolism and thrombosis of unspecified site 12/26/2006 Left leg DVT in 2006 (during hospitalization) Essential hypertension, benign 11/01/2006 Generalized osteoarthrosis, unspecified site Knees Headache(784.0) 12/26/2006 Lumbago 12/26/2006 Lumbar disc disease. Myalgia and myositis, unspecified Fibromyalgia Obesity, unspecified 11/01/2006 RILEY on CPAP 11/01/2006 On BiPaP . Other and unspecified hyperlipidemia 07/01/2007 Panniculitis 12/06/2010 Periodic limb movement disorder 11/01/2006 Peripheral vascular disease (HCC) Regional enteritis of large intestine (HCC) 11/01/2006 Collagenous colitis Renal calculus, right 08/23/2011 REmoved 01/13 Ca oxalate Severe sepsis(995.92) October 2006 Multiorgan failure Shingles 2000 Left chin Spinal stenosis, other than cervical Disc herniations, lumbar STAPHYLOCOCCUS AUREUS 07/09/2007 Type II or unspecified type diabetes mellitus without mention of complication, not stated as uncontrolled 12/26/2006 Unspecified asthma(493.90) Unspecified sleep apnea 11/01/2006 on BiPAP WOUND COMPLICATED (OPEN) ABD WALL, ANTER 07/09/2007 PAST SURGICAL HISTORY Procedure Laterality Date BX BREAST PERC VACUUM/ROTN 03/20/10 Benign COLONOSCOPY FLX DX W/COLLJ SPEC WHEN PFRMD 2005 Colonoscopy CYSTOSCOPY, URETERAL STENT CHANGE/INSERTION 01/13/2013 Right side. DILATION AND CURETTAGE DXAND/THER NONOBSTETRIC 1970s Dilation AND curettage NEPHROSTOMY URETERAL DILATION 01/13/2013 Right perc. ureteroscopy, stone manip. TOTAL ABDOMINAL HYSTERECT W/WO RMVL TUBE OVARY 1987 Hysterectomy, CHICA, appy Current Outpatient Medications Medication Sig Dispense Refill acetaminophen (TYLENOL) 325 mg tablet Take 650 mg by mouth every 4 hours as needed for fever (specify temp.). ammonium lactate (LAC-HYDRIN) 12 % cream Apply to affected area. atorvastatin (LIPITOR) 10 mg tablet cholecalciferol (VITAMIN D3) 50 mcg (2,000 unit) tablet Take 2,000 Units by mouth. famotidine (PEPCID) 20 mg tablet Take 20 mg by mouth. ARNUITY ELLIPTA 100 mcg/actuation inhaler vancomycin 1,000 mg injection Inject 1,250 mg intravenously. spironolactone (ALDACTONE) 50 mg tablet Take 25 mg by mouth once daily. spironolactone (ALDACTONE) 25 mg tablet XARELTO 15 mg tablet rivaroxaban (XARELTO) 2.5 mg tablet Take 15 mg by mouth every evening. pramipexole (MIRAPEX) 0.25 mg tablet metOLazone (ZAROXOLYN) 2.5 mg tablet Take 2.5 mg by mouth. melatonin 3 mg tablet Take 3 mg by mouth. meclizine (ANTIVERT) 25 mg tab ipratropium-albuterol (DUONEB) 0.5 mg-3 mg(2.5 mg base)/3 mL nebu 3 mL. furosemide (LASIX) 40 mg tablet Take 80 mg by mouth once daily. 5 insulin glargine (LANTUS SOLOSTAR) 100 unit/mL (3 mL) inpn Inject 15 units SC at bedtime (Patient taking differently: Inject 6 Units subcutaneously daily at bedtime. Inject 15 units SC at bedtime) 5 Pen 11 metFORMIN ER (GLUCOPHAGE XR) 500 mg 24 hr tablet Take 1 tablet by mouth twice daily before meals. (Patient taking differently: Take 850 mg by mouth daily with breakfast.) 60 tablet 6 esomeprazole (NEXIUM) 40 mg capsule TAKE ONE(1) CAPSULE DAILY 1/2 HR BEFORE MEAL. 30 capsule 11 Insulin [place], Disposable, (PEN NEEDLE) 29 x 1/2 ndle Use daily for insulin as directed. 100 Each 1 sitaGLIPtin (JANUVI (more content not included)... [facility] 06-27-2023 Miscellaneous Notes AMBULATORY PATIENT EDUCATION NOTE PRE-OP TEACHING TOPIC: SURVIVAL SKILLS: Preop PROCEDURE: Total thyroidectomy Possible recurrent nerve sacrifice READINESS TO LEARN COGNITIVE ABILITY: Alert and oriented MOTIVATION TO LEARN: Interested FAMILY SUPPORT: None - Unavailable/disinterested INSTRUCTION PROVIDED TO: Patient PATIENT LEARNS BEST BY: Individual Instruction Written Instruction - Hand-outs Verbal Instruction FACTORS AFFECTING LEARNING: None PHYSICAL LIMITATIONS AFFECTING LEARNING: None LEARNING RESPONSE DIAGNOSIS: Total thyroidectomy Possible recurrent nerve sacrifice METHOD OF INSTRUCTION: Individual instruction Written instruction - handouts Verbal instruction PATIENT / FAMILY RESPONSE: Verbalizes understanding of: PRE-OPERATIVE INSTRUCTIONS-Correct action to take to follow pre-operative instructions FOLLOW-UP PLAN: Patient instructed to call with any further issues SUPPLEMENTAL MATERIAL: Your Surgical Guide REFERRAL (RECOMMENDATION): PACC Electronically Signed By: Liz Gomez RN In Department: OTOLARYNGOLOGY documented in this encounter [facility] 06-27-2023 Note HNO ID: [id number] Author: Cate Negrete Service: ? Author Type: ? Type: Progress Notes Filed: 06/27/2023 4:53 PM Note Text: Tobacco Use: Never Was smoking cessation packet given? N/A - Patient is a non-smoker or quit >1 year ago. Was a referral initiated?N/A Patient is a non-smoker [facility] 06-27-2023 History of Present illness Narrative [facility] Consult This consult was requested by Sarah Hubbard for an opinion regarding thyroid mass. My final recommendations will be communicated to the requesting provider by way of shared EMR or letter via the [place] mail. HPI: Sandy Bal is a 73 year old female, non-smoker, with history of AFIB, sleep apnea, low platelets, HTN and HLD. She saw Dr. Ortiz in February because she noticed neck mass around 02/17, and around that time she started choking and experiencing difficulty swallowing. US and FNA were performed in Dr. Hubbard's office 04/25/23. Poorly defined heterogenous mass involving entire left thyroid was found on US, and FNA biopsy report (04/25/23) was suspicious for malignancy. 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 At present visit, Ms. Bal reports that her left neck feels bigger than it did at her visit with Dr. Hubbard. This is causing her problems with swallowing and she sometimes chokes on her food. She also endorses a headache in the back of the head. She has issues with mobility, requiring use of a wheelchair. PAST MEDICAL HISTORY Diagnosis Date Acute kidney failure with other specified pathological lesion in kidney October 2006 Temporary dialysis Anemia, unspecified 12/26/2006 Bowel disease IBD Cellulitis 2010, 2011 lower legs Chronic rhinitis 12/26/2006 Critical illness polyneuropathy (HCC) October 2006 Depressive disorder, not elsewhere classified 12/26/2006 Embolism and thrombosis of unspecified site 12/26/2006 Left leg DVT in 2006 (during hospitalization) Essential hypertension, benign 11/01/2006 Generalized osteoarthrosis, unspecified site Knees Headache(784.0) 12/26/2006 Lumbago 12/26/2006 Lumbar disc disease. Myalgia and myositis, unspecified Fibromyalgia Obesity, unspecified 11/01/2006 RILEY on CPAP 11/01/2006 On BiPaP . Other and unspecified hyperlipidemia 07/01/2007 Panniculitis 12/06/2010 Periodic limb movement disorder 11/01/2006 Peripheral vascular disease (HCC) Regional enteritis of large intestine (HCC) 11/01/2006 Collagenous colitis Renal calculus, right 08/23/2011 REmoved 01/13 Ca oxalate Severe sepsis(995.92) October 2006 Multiorgan failure Shingles 2000 Left chin Spinal stenosis, other than cervical Disc herniations, lumbar STAPHYLOCOCCUS AUREUS 07/09/2007 Type II or unspecified type diabetes mellitus without mention of complication, not stated as uncontrolled 12/26/2006 Unspecified asthma(493.90) Unspecified sleep apnea 11/01/2006 on BiPAP WOUND COMPLICATED (OPEN) ABD WALL, ANTER 07/09/2007 PAST SURGICAL HISTORY Procedure Laterality Date BX BREAST PERC VACUUM/ROTN 03/20/10 Benign COLONOSCOPY FLX DX W/COLLJ SPEC WHEN PFRMD 2005 Colonoscopy CYSTOSCOPY, URETERAL STENT CHANGE/INSERTION 01/13/2013 Right side. DILATION & CURETTAGE DX&/THER NONOBSTETRIC 1970s Dilation & curettage NEPHROSTOMY URETERAL DILATION 01/13/2013 Right perc. ureteroscopy, stone manip. TOTAL ABDOMINAL HYSTERECT W/WO RMVL TUBE OVARY 1987 Hysterectomy, CHICA, appy Current Outpatient Medications Medication Sig Dispense Refill acetaminophen (TYLENOL) 325 mg tablet Take 650 mg by mouth every 4 hours as needed for fever (specify temp.). ammonium lactate (LAC-HYDRIN) 12 % cream Apply to affected area. atorvastatin (LIPITOR) 10 mg tablet cholecalciferol (VITAMIN D3) 50 mcg (2,000 unit) tablet Take 2,000 Units by mouth. famotidine (PEPCID) 20 mg tablet Take 20 mg by mouth. ARNUITY ELLIPTA 100 mcg/actuation inhaler vancomycin 1,000 mg injection Inject 1,250 mg intravenously. spironolactone (ALDACTONE) 50 mg tablet Take 25 mg by mouth once daily. spironolactone (ALDACTONE) 25 mg tablet XARELTO 15 mg tablet rivaroxaban (XARELTO) 2.5 mg tablet Take 15 mg by mouth every evening. pramipexole (MIRAPEX) 0.25 mg tablet metOLazone (ZAROXOLYN) 2.5 mg tablet Take 2.5 mg by mouth. melatonin 3 mg tablet Take 3 mg by mouth. meclizine (ANTIVERT) 25 mg tab ipratropium-albuterol (DUONEB) 0.5 mg-3 mg(2.5 mg base)/3 mL nebu 3 mL. furosemide (LASIX) 40 mg tablet Take 80 mg by mouth once daily. 5 insulin glargine (LANTUS SOLOSTAR) 100 unit/mL (3 mL) inpn Inject 15 units SC at bedtime (Patient taking differently: Inject 6 Units subcutaneously daily at bedtime. Inject 15 units SC at bedtime) 5 Pen 11 metFORMIN ER (GLUCOPHAGE XR) 500 mg 24 hr tablet Take 1 tablet by mouth twice daily before meals. (Patient taking differently: Take 850 mg by mouth daily with breakfast.) 60 tablet 6 esomeprazole (NEXIUM) 40 mg capsule TAKE ONE(1) CAPSULE DAILY 1/2 HR BEFORE MEAL. 30 capsule 11 Insulin [place], Disposable, (PEN NEEDLE) 29 x 1/2 ndle Use daily for insulin as directed. 100 Each 1 sitaGLIPtin (JANUVIA) 100 mg tablet Take 1 tablet by mouth once daily. 30 tablet 6 fluticasone-salmeterol (ADVAIR DISKUS) 250-50 mcg/dose dsdv Inhale 1 Puff as instructed twice daily. RINSE AND GARGLE MOUTH WITH WATER AFTER EACH USE. 1 Inhaler 6 tolterodine LA (DETROL LA) 4 mg 24 hr capsule Take 1 capsule by mouth once daily. Replacing oxybutynin. 30 capsule 3 rOPINIRole 0.5 mg tablet Take 1 tablet by mouth daily at bedtime. 30 tablet 11 blood sugar diagnostic (BLOOD GLUCOSE TEST) test strip TEST BLOOD SUGAR 4 TIMES PER DAY. DX: 250.00. INSULIN DEP: YES. [employer] Diabetic Supplies. [email or web address] 0 diltiazem CD (CARTIA XT) 180 mg 24 hr capsule Take 2 capsules by mouth once daily. 60 capsule 6 pregabalin (LYRICA) 100 mg capsule Take 1 capsule by mouth three times daily. 90 capsule 2 Incontinence Pad, Liner, Disp (POISE PADS EXTRA PLUS) Pads Use as needed for incontinence. 788.33 Mixed incontinence urge and stress; 788.31 Urge incontinence 1 Each 5 COMPOUNDED PRESCRIPTION Washable mattress pad for incontinence, use as needed. 788.33 Mixed incontinence urge and stress; 788.31 Urge incontinence 3 Each 3 Underpads 30 X 30 Pads Use on bed as needed for urinary incontinence. 788.33 Mixed incontinence urge and stress; 788.31 Urge incontinence 1 Each 5 COMPOUNDED PRESCRIPTION XL adult briefs for incontinence. 788.33 Mixed incontinence urge and stress; 788.31 Urge incontinence 1 bag 5 fluticasone (FLONASE) 50 mcg/actuation nasal spray Use 1 [place] in each nostril daily at bedtime. 1 Bottle 6 ALBUTEROL SULFATE 2.5 MG/3 ML (0.083 %) NEB SOLUTION Inhale by nebulizer over 5-15 minutes three (3) to four (4) times a day as needed for wheezing and shortness of breath 0 albuterol sulfate(PROAIR HFA 90 MCG/ACTUATION AEROSOL INHALER) Inhale 2 puffs every 4 hours as needed for wheezing, cough 1 5 Ferrous Sulfate 325 (65) mg ORAL Tab Take one(1) tablet twice daily. 60 5 Ascorbic Acid 500 mg cpER Take 500 mg by mouth. insulin glargine (BASAGLAR KWIKPEN U-100 INSULIN) 100 unit/mL (3 mL) Inject subcutaneously. oxycodone HCl,terephth/aspirin (OXYCODONE [id number] ORAL) Take 10 mg by mouth every 6 hours as needed (for pain). ammonium lactate (LAC-HYDRIN) 12 % lotion Apply 1 karthik, Topical, BID budesonide (PULMICORT) 0.5 mg/2 mL nebulizer solution 1 Ampule. terbinafine HCl (LAMISIL) 250 mg tablet 250 mg. oxyCODONE-acetaminophen (PERCOCET) 5-325 mg tablet Take 1 tablet by mouth. oxyCODONE IR (ROXICODONE) 10 mg tab oxybutynin XL (DITROPAN XL) 5 mg 24 hr tablet Take 5-10 mg by mouth. oxybutynin (DITROPAN) 5 mg tablet ondansetron (ZOFRAN) 4 mg tablet 4 mg. omeprazole (PRILOSEC) 40 mg capsule omeprazole (PRILOSEC) 40 mg capsule Take 40 mg by mouth. nystatin (MYCOSTATIN) powder Apply to affected area. nitrofurantoin monohydrate and macrocrystal (MACROBID) 100 mg capsule mupirocin (BACTROBAN) 2 % nasal ointment Apply 1 karthik, Nostril, left, BID morphine IR 30 mg tablet morphine SR (MS CONTIN) 30 mg 12 hr tablet morphine ER 60 mg 24 hr capsule 60 mg. morphine ER (PEDRO) 50 mg 24 hr capsule Take 50 mg by mouth. modafinil (PROVIGIL) 100 mg tablet modafinil (PROVIGIL) 200 mg tablet Take 200 mg by mouth. METOLAZONE ORAL 2.5 mg. Methenamine Hippurate (HIPREX) 1 gram tablet Take 1 g by mouth. LORazepam (ATIVAN) 0.5 mg 0.5 mg. linezolid (ZYVOX) 600 mg tablet Take 1 tablet by mouth every 12 (twelve) hours. Lactobacillus acidophilus 500 million cell cap Dose = 1 cap(s), Oral, qDay, # 60 cap(s), 0 Refill(s), Pharmacy: [facility] levoFLOXacin (LEVAQUIN) 750 mg tablet NOVOLOG U-100 INSULIN ASPART 100 unit/mL betamethasone dipropionate 0.05 % ointment apply to rash on legs, wrap with saran wrap and cover with socks at night 90 g 3 triamcinolone acetonide (KENALOG) 0.1 % ointment apply to rash and wrap daily 454 g 3 potassium chloride SR (K-DUR) 20 mEq tablet Take 2 tablets (40meq) daily. 60 tablet 3 venlafaxine 100 mg tablet Take 1 tablet by mouth three times daily. 90 tablet 6 pravastatin 80 mg tablet Take 1 tablet by mouth once daily. 90 tablet 3 Lanolin-mineral oil (EUCERIN ORIGINAL) lotion Apply 1 application to affected area as needed. 195 mL 2 Multivitamin ORAL Tab Take one(1) tablet daily. 0 No current facility-administered medications for this visit. Facility-Administered Medications Ordered in Other Visits Medication Dose Route Frequency Provider Last Rate Last Admin NaCl 0.9% iv infusion 100 mL/hr INTRAVENOUS CONTINUOUS Toi Cobian ALLERGIES Allergen Reactions Asa [Salicylates] Hives Penicillins Anaphylaxis Sulfa (Sulfonamide * Anaphylaxis Aspirin Unknown Latex, Natural Rubb* Itching skin gets red and breaks down FAMILY HISTORY Problem Relation Age of Onset Alcohol/Drug Father Allergies Mother Anesthesia Mother Cancer Father Diabetes Father Diabetes Mother Hypertension Mother Hypertension Father Stroke Father Social History Tobacco Use Smoking status: Never Smokeless tobacco: Never Substance Use Topics Alcohol use: No Comment: rare Drug use: No Review of Systems - Eyes - Denies failing vision, denies double vision Ears - Denies drainage, denies hearing loss, denies dizziness, denies ringing Nose - Denies nosebleeds, denies drainage, denies sinus symptoms, denies nasal obstruction Throat - raspy voice, pressure in left neck, difficulty swallowing with episodes of choking Lungs - Denies frequent cough, denies shortness of breath Heart - Denies chest pain, denies palpitations Gastrointestinal - Denies stomach pain, denies nausea, denies vomiting , denies diarrhea, denies bleeding Genitourinary - Denies burning, denies bleeding, denies pain or problems passing urine Neurological - Denies convulsions, denies seizures, denies memory loss, endorses headaches Endocrine - Denies heat/cold intolerance, denies weight gain or loss, denies hair loss REVIEW OF RADIOLOGICAL FILMS AND RECORDS: 06/26/23 CT neck soft tissue w contrast IMPRESSION: Large soft tissue mass arising from the left lobe of the thyroid gland with contiguous involvement of the left tracheoesophageal groove and retropharyngeal space, suspicion of contiguous involvement of the hypopharyngeal airway and strap muscles and mild compression and displacement of the upper trachea, worrisome for aggressive high-grade neoplasm. No significant cervical lymphadenopathy by size criteria. LABS: 05/24/23 surgical pathology FINAL DIAGNOSIS Left thyroid, biopsy: - Follicular-patterned thyroid neoplasm. - See comment. 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 Occasional mild nuclear atypia is noted, but high-grade cytologic features, significant mitotic activity and tumor-type necrosis were not identified. Immunohistochemical studies were performed. HBME-1 is strongly and diffusely positive. NRAS (Q61R), known to cross-react with KRAS Q61R, is also positive in the lesional cells. There is nonspecific reactivity for BRAF, which is interpreted to be negative. The morphology and immunoprofile support the diagnosis. Dr. Dhaval Seth, Dr. Dinah Driver, Dr. Simi Farris and Dr. Prosper Yoo were consulted and they agree. PHYSICAL EXAM: Vitals - There were no vitals taken for this visit. Constitutional - General Appearance: well developed, well nourished, without obvious deformities Communication: speaks with a normal voice with some hoarseness Head & Face - Overall: no obvious scars, lesions, or masses Facial strength: Facial nerve intact. Normal and equal bilaterally Ear, Nose, Mouth & Throat - Ears: both left and right external auditory canals and TM's are normal. No external deformities. Nasal exam: mucosa is pink, septum is midline, visible turbinates are normal on anterior rhinoscopy. No external deformities. Mastication: teeth appear normal Oral Cavity and oropharynx: mucosa, hard and soft palates, tongue, tonsil area, posterior pharyngeal wall, lips and gums are lesions Neck: appears symmetric, and on palpation is without lymphadenopathy, but left neck is firm upon palpation Parotid and submandibular glands: no masses or tenderness Thyroid: no asymmetry, thyromegaly, or thyroid nodules on palpation Cranial Nerves: II: Pupillary reflexes normal III, IV, : EOM normal V: 1,2,3: normal sensation VII: Normal strength in all divisions IX, X: Normal voice, palatal elevation and sensation XI: Shoulder strength normal XII: Tongue mobility normal Larynx: see laryngoscopy FLEXIBLE LARYNGOSCOPY Indications: cannot visualize larynx with mirror Procedure: With the patient sitting upright, informed consent was obtained. Topical anesthesia and vasoconstriction was applied with spray to the right side of the nose. After waiting an appropriate period of time for anesthesia/vasoconstriction to become effective, a flexible laryngoscope was passed through the right side of the nose and the nose, nasopharynx, oropharynx, hypopharynx and larynx. The patient tolerated the procedure without complications. Findings: The nasal passageways and nasopharynx appear normal without edema or erythema. The oropharynx, base of tongue, piriform sinuses, epiglottis, and aryepiglottic folds were examined and no masses, lesions, or ulcerations were seen. The true vocal cords move well to midline bilaterally. The airway is widely patent. Juan Jose Gutierrez MD ASSESSMENT: Sandy Bal is a 73 year old female, non-smoker, with history of AFIB, sleep apnea, low platelets, HTN and HLD. She saw Dr. Ortiz in February because she noticed neck mass around 02/17, and around that time she started choking and experiencing difficulty swallowing. US and FNA were performed in Dr. Hubbard's office 04/25/23. Poorly defined heterogenous mass involving entire left thyroid was found on US, and FNA biopsy report (04/25/23) was suspicious for malignancy. 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 At present visit, Ms. Bal reports that her left neck feels bigger than it did at her visit with Dr. Hubbard. This is causing her problems with swallowing and she sometimes chokes on her food. She also endorses a headache in the back of the head. I showed the patient the films of her CT scan, which showed a large poorly defined mass in the left thyroid, and a smaller mass in the right thyroid. The left neck was firm upon palpation during the physical exam, but so far there is not damage to the vocal cords, as they were mobile on laryngoscopy. This combined with previous imaging and biopsy are consistent with invasive cancer, and a partial-total thyroidectomy is the best course of treatment. Patient was consented for a total thyroidectomy, but due to it's proximity to laryngeal nerve, a partial thyroidectomy with staging on of the right thyroid lobe may be necessary. I informed Ms. Bal of the risks of surgery which include infection, bleeding, anesthesia side effects, temporary voice loss. May need other types of treatment, pending pathology results from surgery. Her daughter was on the phone during the appointment, and I answered her questions before Ms. Bal signed off on surgery. PLAN: expedite appointment with anesthesiology b/c she needs to be off blood thinners for at least 1 week 2. ideal surgery time is late June early July Medical Decision Making: Medical Decision Making Level: 1 - N/A MD Sandy Ko Attestation: By signing my name below, I, Sharon Hill, attest that this documentation has been prepared under the direction and in the presence of Juan Jose Gutierrez MD. Electronically Signed: sandy Watt, June 27, 2023 2:51 PM June 27, 2023 I participated in the history and physical exam of Sandy Bal. I discussed the management of Sandy Bal with the resident. I reviewed the resident's note and agree with the documented findings and plan of care. Juan Jose Gutierrez MD Tobacco Use: Never Was smoking cessation packet given? N/A - Patient is a non-smoker or quit >1 year ago. Was a referral initiated?N/A Patient is a non-smoker documented in this encounter [facility] 06-26-2023 Note HNO ID: [id number] Author: Blossom Trejo RT(R) Service: ? Author Type: Funeral Home Attendant Type: Progress Notes Filed: 06/26/2023 4:18 PM Note Text: Radiology Service Progress Note DATE OF SERVICE: June 26, 2023 TIME: 4:17 PM PATIENT IDENTITY VERIFICATION COMPLETED USING TWO (2) STANDARD IDENTIFIERS: Name and Date of confirmed by patient verbally. FALL SCREENING: Has the patient had 2 falls in the last year or 1 fall with injury or currently using an Ambulatory Assistive Device (Walker, Cane, Wheelchair, Crutches, etc.)? No PATIENT GENDER DATA: Female. status: : No status: NO. PATIENT RELEVANT IMPLANT DATA REVIEWED: Yes ALLERGIES: Reviewed and unchanged CONTRAST ALLERGY: NO. EXAM: CT -CONTRAST INDUCED NEPHROPATHY RISK FACTORS: Patient age > 60 years CREATININE: Creatinine Date Value Ref Range Status 06/26/2023 0.76 0.58 - 0.96 mg/dL Final 08/03/2021 0.75 0.70 - 1.40 mg/dL Final 07/26/2021 0.85 0.70 - 1.40 mg/dL Final Estimated Glomerular Filtration Rate Date Value Ref Range Status 06/26/2023 82 >=60 mL/min/1.73m? Final Comment: Estimated Glomerular Filtration Rate (eGFR) is calculated using the 2020 CKD-EPI creatinine equation. This equation utilizes serum creatinine, sex, and age as parameters. The creatinine assay has traceable calibration to isotope dilution-mass spectrometry. Refer to KDIGO guidelines for clinical interpretation. In patients with unstable renal function, e.g. those with acute kidney injury, the eGFR may not accurately reflect actual GFR. eGFR- Date Value Ref Range Status 08/03/2021 >60 >59 Final P.O.C.T. RESULTS: POC done: Yes, See Lab Tab June 26, 2023 TREATMENT: N/A PERIPHERAL IV DATA: Ambulatory: A peripheral IV was started in the Left antecubital site with a Angio cath: 22 gauge. RADIOLOGY DEPARTMENT: CT; Exam(s) Completed: Abdomen/Pelvis and Neck SIGNATURE: RT Kraig(R) PATIENT NAME: Sandy Bal DATE: June 26, 2023 TIME: 4:17 PM [facility] 06-26-2023 History of Present illness Narrative Radiology Service Progress Note DATE OF SERVICE: June 26, 2023 TIME: 4:17 PM PATIENT IDENTITY VERIFICATION COMPLETED USING TWO (2) STANDARD IDENTIFIERS: Name and Date of confirmed by patient verbally. FALL SCREENING: Has the patient had 2 falls in the last year or 1 fall with injury or currently using an Ambulatory Assistive Device (Walker, Cane, Wheelchair, Crutches, etc.)? No PATIENT GENDER DATA: Female. status: : No status: NO. PATIENT RELEVANT IMPLANT DATA REVIEWED: Yes ALLERGIES: Reviewed and unchanged CONTRAST ALLERGY: NO. EXAM: CT -CONTRAST INDUCED NEPHROPATHY RISK FACTORS: Patient age > 60 years CREATININE: Creatinine Date Value Ref Range Status 06/26/2023 0.76 0.58 - 0.96 mg/dL Final 08/03/2021 0.75 0.70 - 1.40 mg/dL Final 07/26/2021 0.85 0.70 - 1.40 mg/dL Final Estimated Glomerular Filtration Rate Date Value Ref Range Status 06/26/2023 82 >=60 mL/min/1.73m Final Comment: Estimated Glomerular Filtration Rate (eGFR) is calculated using the 2020 CKD-EPI creatinine equation. This equation utilizes serum creatinine, sex, and age as parameters. The creatinine assay has traceable calibration to isotope dilution-mass spectrometry. Refer to KDIGO guidelines for clinical interpretation. In patients with unstable renal function, e.g. those with acute kidney injury, the eGFR may not accurately reflect actual GFR. eGFR- Date Value Ref Range Status 08/03/2021 >60 >59 Final P.O.C.T. RESULTS: POC done: Yes, See Lab Tab June 26, 2023 TREATMENT: N/A PERIPHERAL IV DATA: Ambulatory: A peripheral IV was started in the Left antecubital site with a Angio cath: 22 gauge. RADIOLOGY DEPARTMENT: CT; Exam(s) Completed: Abdomen/Pelvis and Neck SIGNATURE: RT Kraig(R) PATIENT NAME: Sandy Bal DATE: June 26, 2023 TIME: 4:17 PM documented in this encounter [facility] 06-18-2023 Miscellaneous Notes I called Pt and told her she may schedule the CT neck and have her a number to call. I also asked her to not take metformin the day before the CT scan and not restarting until we document her kidney function is good. Hang Martinez M.D. Endocrinology & Metabolism [place] documented in this encounter [facility] 06-10-2023 Miscellaneous Notes Attempted to reach patient to discuss plan of care going forward from Dr. Hubbard. Will attempt to reach patient again. NISHA Easley Endocrine Surgery documented in this encounter [facility] 06-07-2023 Note HNO ID: [id number] Author: Hang Martinez MD Service: ? Author Type: Physician Type: Progress Notes Filed: 06/10/2023 11:09 AM Note Text: ENDOCRINOLOGY REASON FOR CONSULTATION: Thyroid cancer HISTORY Sandy Bal is a 73 year old female who comes in here for evaluation of thyroid cancer. The patient is referred by Petros Ortiz. My recommendations will be sent to the referring physician/provider either by letter or shared electronic medical record. HPI: Patient noticed a neck mass around 01/2023. She reports shocking and feeling like food gets stock in her throat since around the same time. She has noticed hoarseness also since that time. She believes the mass has increased in size since then. Pt has headache on left side of her head , since about 12/2022. Prior history of radiation treatment to the neck: No Prior neck operations: No Family history of thyroid cancer: No Per Dr. Hubbard's note (04/25/23): Ultrasound examination was performed in the office. Hypoechoic, poorly defined, heterogeneous mass involving entire left thyroid. There are NOT distinct planes visible between mass and strap muscles. FNA performed today. No worrisome lymphadenopathy was appreciated in either central neck compartment or jugular chain. A fine needle aspiration biopsy was performed of left thyroid mass under ultrasound guidance. Of note, Pt is on Xarelto. Cytology report (04/25/23): The aspirate sample is highly cellular and consists of a predominant oncocytic (Hurthle cell) cell population. Some of these cells have powdery chromatin, nuclear grooves and intranuclear inclusions. In addition to the oncocytic cells, there is a second cell population with high N/C ratios and nuclear hyperchromasia. The background of the aspirate shows cystic degeneration and blood. No colloid is seen. No necrosis is seen. Overall, the aspirate sample is suspicious for malignancy and may represent a differentiated thyroid carcinoma with areas of a higher grade component. Cytologic features diagnostic of anaplastic thyroid carcinoma are not identified. Given the clinical setting of a rapidly enlarging thyroid mass, the possibility of an unsampled component of anaplastic thyroid carcinoma cannot be entirely excluded. This case was seen on consultation with Drs. Vallejo and Villa who agree. An additional report: Follicular-patterned thyroid neoplasm. 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 Occasional mild nuclear atypia is noted, but high-grade cytologic features, significant mitotic activity and tumor-type necrosis were not identified. Immunohistochemical studies were performed. HBME-1 is strongly and diffusely positive. NRAS (Q61R), known to cross-react with KRAS Q61R, is also positive in the lesional cells. There is nonspecific reactivity for BRAF, which is interpreted to be negative. Pt had had a thyroid US on 03/2011 reported as The right lobe measures 34 x 17 x 18 mm. The left lobe measures 44 x 19 x 28 mm. The isthmus is 3 mm thick. The thyroid gland is a fairly uniform echogenicity an oval smoothly marginated mildly hyperechoic 19 x 13 x 14 mm nodule anteriorly at the lower pole of the left lobe. There is a heterogeneous smoothly marginated 32 x 20 x 22 mm nodule posteriorly in the mid left lobe with a couple of punctate calcification seen within it. REVIEW OF SYSTEMS: CONSTITUTIONAL: Mild unintended weight loss. HEENT: Per HPI. EYES: No diplopia. No blurry vision. CARDIOVASCULAR: No chest pain, palpitations. PULMONARY: Mild dyspnea with mild activity (she has asthma). GASTROINTESTINAL: No frequent heartburn. Lactose intolerance. GENITOURINARY: Urinary incontinence, worsened with diuretic. NEUROLOGIC: No tremor. No numbness of concern. MUSCULOSKELETAL: No significant joint or muscle pain. No swelling. MENTAL HEALTH: No concerns regarding depression or anxiety. INTEGUMENTARY: Edema of legs, with repeated process of cellulitis. ENDOCRINE: Per HPI PAST MEDICAL HISTORY Diagnosis Date Acute kidney failure with other specified pathological lesion in kidney October 2006 Temporary dialysis Anemia, unspecified 12/26/2006 Bowel disease IBD Cellulitis 2010, 2011 lower legs Chronic rhinitis 12/26/2006 Critical illness polyneuropathy (HCC) October 2006 Depressive disorder, not elsewhere classified 12/26/2006 Embolism and thrombosis of unspecified site 12/26/2006 Left leg DVT in 2006 (during hospitalization) Essential hypertension, benign 11/01/2006 Generalized osteoarthrosis, unspecified site Knees Headache(784.0) 12/26/2006 Lumbago 12/26/2006 Lumbar disc disease. Myalgia and myositis, unspecified Fibromyalgia Obesity, unspecified 11/01/2006 RILEY on CPAP 11/01/2006 On BiPaP . Other and unspecified hyperlipidemia 07/01/2007 Panniculitis 12/06/2010 Periodic limb movement dis (more content not included)... [facility] 06-07-2023 History of Present illness Narrative Images from the original note were not included. ENDOCRINOLOGY REASON FOR CONSULTATION: Thyroid cancer HISTORY Sandy Bal is a 73 year old female who comes in here for evaluation of thyroid cancer. The patient is referred by Petros Ortiz. My recommendations will be sent to the referring physician/provider either by letter or shared electronic medical record. HPI: Patient noticed a neck mass around 01/2023. She reports shocking and feeling like food gets stock in her throat since around the same time. She has noticed hoarseness also since that time. She believes the mass has increased in size since then. Pt has headache on left side of her head , since about 12/2022. Prior history of radiation treatment to the neck: No Prior neck operations: No Family history of thyroid cancer: No Per Dr. Hubbard's note (04/25/23): Ultrasound examination was performed in the office. Hypoechoic, poorly defined, heterogeneous mass involving entire left thyroid. There are NOT distinct planes visible between mass and strap muscles. FNA performed today. No worrisome lymphadenopathy was appreciated in either central neck compartment or jugular chain. A fine needle aspiration biopsy was performed of left thyroid mass under ultrasound guidance. Of note, Pt is on Xarelto. Cytology report (04/25/23): The aspirate sample is highly cellular and consists of a predominant oncocytic (Hurthle cell) cell population. Some of these cells have powdery chromatin, nuclear grooves and intranuclear inclusions. In addition to the oncocytic cells, there is a second cell population with high N/C ratios and nuclear hyperchromasia. The background of the aspirate shows cystic degeneration and blood. No colloid is seen. No necrosis is seen. Overall, the aspirate sample is suspicious for malignancy and may represent a differentiated thyroid carcinoma with areas of a higher grade component. Cytologic features diagnostic of anaplastic thyroid carcinoma are not identified. Given the clinical setting of a rapidly enlarging thyroid mass, the possibility of an unsampled component of anaplastic thyroid carcinoma cannot be entirely excluded. This case was seen on consultation with Drs. Vallejo and Villa who agree. An additional report: Follicular-patterned thyroid neoplasm. 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 Occasional mild nuclear atypia is noted, but high-grade cytologic features, significant mitotic activity and tumor-type necrosis were not identified. Immunohistochemical studies were performed. HBME-1 is strongly and diffusely positive. NRAS (Q61R), known to cross-react with KRAS Q61R, is also positive in the lesional cells. There is nonspecific reactivity for BRAF, which is interpreted to be negative. Pt had had a thyroid US on 03/2011 reported as The right lobe measures 34 x 17 x 18 mm. The left lobe measures 44 x 19 x 28 mm. The isthmus is 3 mm thick. The thyroid gland is a fairly uniform echogenicity an oval smoothly marginated mildly hyperechoic 19 x 13 x 14 mm nodule anteriorly at the lower pole of the left lobe. There is a heterogeneous smoothly marginated 32 x 20 x 22 mm nodule posteriorly in the mid left lobe with a couple of punctate calcification seen within it. REVIEW OF SYSTEMS: CONSTITUTIONAL: Mild unintended weight loss. HEENT: Per HPI. EYES: No diplopia. No blurry vision. CARDIOVASCULAR: No chest pain, palpitations. PULMONARY: Mild dyspnea with mild activity (she has asthma). GASTROINTESTINAL: No frequent heartburn. Lactose intolerance. GENITOURINARY: Urinary incontinence, worsened with diuretic. NEUROLOGIC: No tremor. No numbness of concern. MUSCULOSKELETAL: No significant joint or muscle pain. No swelling. MENTAL HEALTH: No concerns regarding depression or anxiety. INTEGUMENTARY: Edema of legs, with repeated process of cellulitis. ENDOCRINE: Per HPI PAST MEDICAL HISTORY Diagnosis Date Acute kidney failure with other specified pathological lesion in kidney October 2006 Temporary dialysis Anemia, unspecified 12/26/2006 Bowel disease IBD Cellulitis 2010, 2011 lower legs Chronic rhinitis 12/26/2006 Critical illness polyneuropathy (HCC) October 2006 Depressive disorder, not elsewhere classified 12/26/2006 Embolism and thrombosis of unspecified site 12/26/2006 Left leg DVT in 2006 (during hospitalization) Essential hypertension, benign 11/01/2006 Generalized osteoarthrosis, unspecified site Knees Headache(784.0) 12/26/2006 Lumbago 12/26/2006 Lumbar disc disease. Myalgia and myositis, unspecified Fibromyalgia Obesity, unspecified 11/01/2006 RILEY on CPAP 11/01/2006 On BiPaP . Other and unspecified hyperlipidemia 07/01/2007 Panniculitis 12/06/2010 Periodic limb movement disorder 11/01/2006 Peripheral vascular disease (HCC) Regional enteritis of large intestine (HCC) 11/01/2006 Collagenous colitis Renal calculus, right 08/23/2011 REmoved 01/13 Ca oxalate Severe sepsis(995.92) October 2006 Multiorgan failure Shingles 2000 Left chin Spinal stenosis, other than cervical Disc herniations, lumbar STAPHYLOCOCCUS AUREUS 07/09/2007 Type II or unspecified type diabetes mellitus without mention of complication, not stated as uncontrolled 12/26/2006 Unspecified asthma(493.90) Unspecified sleep apnea 11/01/2006 on BiPAP WOUND COMPLICATED (OPEN) ABD WALL, ANTER 07/09/2007 PAST SURGICAL HISTORY Procedure Laterality Date BX BREAST PERC VACUUM/ROTN 03/20/10 Benign COLONOSCOPY FLX DX W/COLLJ SPEC WHEN PFRMD 2005 Colonoscopy CYSTOSCOPY, URETERAL STENT CHANGE/INSERTION 01/13/2013 Right side. DILATION & CURETTAGE DX&/THER NONOBSTETRIC Dilation & curettage NEPHROSTOMY URETERAL DILATION 01/13/2013 Right perc. ureteroscopy, stone manip. TOTAL ABDOMINAL HYSTERECT W/WO RMVL TUBE OVARY 1987 Hysterectomy, CHICA, appy Social History Tobacco Use Smoking status: Never Smokeless tobacco: Never Substance Use Topics Alcohol use: No Comment: rare Drug use: No FAMILY HISTORY Problem Relation Age of Onset Alcohol/Drug Father Allergies Mother Anesthesia Mother Cancer Father Diabetes Father Diabetes Mother Hypertension Mother Hypertension Father Stroke Father Current Outpatient Medications Medication Sig acetaminophen (TYLENOL) 325 mg tablet Take 650 mg by mouth every 4 hours as needed for fever (specify temp.). oxycodone HCl,terephth/aspirin (OXYCODONE FHL-[id number]-XGO ORAL) Take 10 mg by mouth every 6 hours as needed (for pain). atorvastatin (LIPITOR) 10 mg tablet ARNUITY ELLIPTA 100 mcg/actuation inhaler spironolactone (ALDACTONE) 50 mg tablet Take 25 mg by mouth once daily. rivaroxaban (XARELTO) 2.5 mg tablet Take 15 mg by mouth every evening. pramipexole (MIRAPEX) 0.25 mg tablet oxybutynin (DITROPAN) 5 mg tablet omeprazole (PRILOSEC) 40 mg capsule modafinil (PROVIGIL) 100 mg tablet Methenamine Hippurate (HIPREX) 1 gram tablet Take 1 g by mouth. meclizine (ANTIVERT) 25 mg tab NOVOLOG U-100 INSULIN ASPART 100 unit/mL furosemide (LASIX) 40 mg tablet Take 80 mg by mouth once daily. insulin glargine (LANTUS SOLOSTAR) 100 unit/mL (3 mL) inpn Inject 15 units SC at bedtime (Patient taking differently: Inject 6 Units subcutaneously daily at bedtime. Inject 15 units SC at bedtime) metFORMIN ER (GLUCOPHAGE XR) 500 mg 24 hr tablet Take 1 tablet by mouth twice daily before meals. (Patient taking differently: Take 850 mg by mouth daily with breakfast.) Insulin [place], Disposable, (PEN NEEDLE) 29 x 1/2 ndle Use daily for insulin as directed. diltiazem CD (CARTIA XT) 180 mg 24 hr capsule Take 2 capsules by mouth once daily. pregabalin (LYRICA) 100 mg capsule Take 1 capsule by mouth three times daily. fluticasone (FLONASE) 50 mcg/actuation nasal spray Use 1 Lars[place] in each nostril daily at bedtime. ALBUTEROL SULFATE 2.5 MG/3 ML (0.083 %) NEB SOLUTION Inhale by nebulizer over 5-15 minutes three (3) to four (4) times a day as needed for wheezing and shortness of breath albuterol sulfate(PROAIR HFA 90 MCG/ACTUATION AEROSOL INHALER) Inhale 2 puffs every 4 hours as needed for wheezing, cough Ferrous Sulfate 325 (65) mg ORAL Tab Take one(1) tablet twice daily. Multivitamin ORAL Tab Take one(1) tablet daily. ammonium lactate (LAC-HYDRIN) 12 % cream Apply to affected area. ammonium lactate (LAC-HYDRIN) 12 % lotion Apply 1 karthik, Topical, BID budesonide (PULMICORT) 0.5 mg/2 mL nebulizer solution 1 Ampule. cholecalciferol (VITAMIN D3) 50 mcg (2,000 unit) tablet Take 2,000 Units by mouth. famotidine (PEPCID) 20 mg tablet Take 20 mg by mouth. vancomycin 1,000 mg injection Inject 1,250 mg intravenously. terbinafine HCl (LAMISIL) 250 mg tablet 250 mg. spironolactone (ALDACTONE) 25 mg tablet XARELTO 15 mg tablet oxyCODONE-acetaminophen (PERCOCET) 5-325 mg tablet Take 1 tablet by mouth. oxyCODONE IR (ROXICODONE) 10 mg tab oxybutynin XL (DITROPAN XL) 5 mg 24 hr tablet Take 5-10 mg by mouth. ondansetron (ZOFRAN) 4 mg tablet 4 mg. omeprazole (PRILOSEC) 40 mg capsule Take 40 mg by mouth. nystatin (MYCOSTATIN) powder Apply to affected area. nitrofurantoin monohydrate and macrocrystal (MACROBID) 100 mg capsule mupirocin (BACTROBAN) 2 % nasal ointment Apply 1 karthik, Nostril, left, BID morphine IR 30 mg tablet morphine SR (MS CONTIN) 30 mg 12 hr tablet morphine ER 60 mg 24 hr capsule 60 mg. morphine ER (PEDRO) 50 mg 24 hr capsule Take 50 mg by mouth. modafinil (PROVIGIL) 200 mg tablet Take 200 mg by mouth. METOLAZONE ORAL 2.5 mg. metOLazone (ZAROXOLYN) 2.5 mg tablet Take 2.5 mg by mouth. melatonin 3 mg tablet Take 3 mg by mouth. LORazepam (ATIVAN) 0.5 mg 0.5 mg. linezolid (ZYVOX) 600 mg tablet Take 1 tablet by mouth every 12 (twelve) hours. Lactobacillus acidophilus 500 million cell cap Dose = 1 cap(s), Oral, qDay, # 60 cap(s), 0 Refill(s), Pharmacy: [facility] levoFLOXacin (LEVAQUIN) 750 mg tablet ipratropium-albuterol (DUONEB) 0.5 mg-3 mg(2.5 mg base)/3 mL nebu 3 mL. betamethasone dipropionate 0.05 % ointment apply to rash on legs, wrap with saran wrap and cover with socks at night triamcinolone acetonide (KENALOG) 0.1 % ointment apply to rash and wrap daily esomeprazole (NEXIUM) 40 mg capsule TAKE ONE(1) CAPSULE DAILY 1/2 HR BEFORE MEAL. sitaGLIPtin (JANUVIA) 100 mg tablet Take 1 tablet by mouth once daily. fluticasone-salmeterol (ADVAIR DISKUS) 250-50 mcg/dose dsdv Inhale 1 Puff as instructed twice daily. RINSE AND GARGLE MOUTH WITH WATER AFTER EACH USE. tolterodine LA (DETROL LA) 4 mg 24 hr capsule Take 1 capsule by mouth once daily. Replacing oxybutynin. potassium chloride SR (K-DUR) 20 mEq tablet Take 2 tablets (40meq) daily. venlafaxine 100 mg tablet Take 1 tablet by mouth three times daily. rOPINIRole 0.5 mg tablet Take 1 tablet by mouth daily at bedtime. blood sugar diagnostic (BLOOD GLUCOSE TEST) test strip TEST BLOOD SUGAR 4 TIMES PER DAY. DX: 250.00. INSULIN DEP: YES. AM-[employer] Diabetic Supplies. [email or web address] pravastatin 80 mg tablet Take 1 tablet by mouth once daily. Incontinence Pad, Liner, Disp (POISE PADS EXTRA PLUS) Pads Use as needed for incontinence. 788.33 Mixed incontinence urge and stress; 788.31 Urge incontinence COMPOUNDED PRESCRIPTION Washable mattress pad for incontinence, use as needed. 788.33 Mixed incontinence urge and stress; 788.31 Urge incontinence Underpads 30 X 30 Pads Use on bed as needed for urinary incontinence. 788.33 Mixed incontinence urge and stress; 788.31 Urge incontinence COMPOUNDED PRESCRIPTION XL adult briefs for incontinence. 788.33 Mixed incontinence urge and stress; 788.31 Urge incontinence Lanolin-mineral oil (EUCERIN ORIGINAL) lotion Apply 1 application to affected area as needed. No current facility-administered medications for this visit. Facility-Administered Medications Ordered in Other Visits Medication Dose Route Frequency NaCl 0.9% iv infusion 100 mL/hr INTRAVENOUS CONTINUOUS ALLERGIES Allergen Reactions Asa [Salicylates] Hives Penicillins Anaphylaxis Sulfa (Sulfonamide * Anaphylaxis Aspirin Unknown Latex, Natural Rubb* Itching skin gets red and breaks down PHYSICAL EXAM: BP 125/53 (BP Site: Left Arm, BP Position: Sitting, BP Cuff Size: Large Adult) Pulse 92 Ht 157.5 cm (5' 2 ) Wt 97.1 kg (214 lb) BMI 39.14 kg/m Body mass index is 39.14 kg/m . Appearance: No acute distress. Obese, not cushingoid HEENT: Anicteric sclerae. Non-injected conjunctivae. EOMI. Neck: Thyroid nodule on left side, ~2 cm. No lymphadenopathy Heart: RRR. No detectable murmur, gallop, or rub. Lungs: Clear to auscultation. No wheezing, rhonchi or rales. Abdomen: Prominent. Soft. No tenderness to palpation. Extremities: No deformities. No edema. Neuro: Alert, speaking coherently. No involuntary motions. Skin: Normal temperature. No rash . LABS RESULTS: Component Latest Ref Rng & Units 12/20/2011 08/05/2012 TSH 0.400 - 5.500 uU/mL 0.889 2.760 IMAGING: Thyroid US 04/09/11: RESULTS: The right lobe measures 34 x 17 x 18 mm. The left lobe measures 44 x 19 x 28 mm. The isthmus is 3 mm thick. The thyroid gland is a fairly uniform echogenicity an oval smoothly marginated mildly hyperechoic 19 x 13 x 14 mm nodule anteriorly at the lower pole of the left lobe. There is a heterogeneous smoothly marginated 32 x 20 x 22 mm nodule posteriorly in the mid left lobe with a couple of punctate calcification seen within it. . IMPRESSION: Multinodular goiter. The dominant nodule is in the mid left lobe. FNA on nodule in left lobe by Dr. Sarah Hubbard. ASSESSMENT & PLAN: Sandy Bal is a 73 year old female here for evaluation of thyroid nodules. 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 Pt had FNA done on 04/25/23. The report was: Overall, the aspirate sample is suspicious for malignancy and may represent a differentiated thyroid carcinoma with areas of a higher grade component. Cytologic features diagnostic of anaplastic thyroid carcinoma are not identified. Given the clinical setting of a rapidly enlarging thyroid mass, the possibility of an unsampled component of anaplastic thyroid carcinoma cannot be entirely excluded. Following that report, a core biopsy of left thyroid nodule was performed in 05/24/23, which was reported as follicular-patterned thyroid neoplasm . Pt has already established care with Dr. Sarah Hubbard. Pt is agreeable to have thyroidectomy. Pt has several comorbidities and is on rivaroxaban. Plan to discuss with Dr. Hubbard about next steps. Return to office: 4 weeks I spent a total of 50 minutes on the date of the service which included preparing to see the patient, [id number] patient care, completing clinical documentation, obtaining and/or reviewing separately obtained history, performing a medically appropriate examination, counseling and educating the patient/family/caregiver, and communicating with other HCPs (not separately reported). MD josefa Santana documented in this encounter [facility] 05-01-2023 Miscellaneous Notes Susan Estrada (Daughter) called in regarding their mother. Susan would like to know more information regarding her mothers' recent visit on 04/25. She also wanted to know more information on the appointment that she's scheduled for on 06/07 Good call back: [phone] documented in this encounter [facility] 04-26-2023 Miscellaneous Notes Please note, patient will hold Xarelto on 04/27/23 in anticipation of biopsy early next week. 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 Patient has already been instructed to hold Xarelto in advance of procedure. 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 If a percutaneous biopsy or drainage is not felt to be safe or an alternative method for establishing a diagnosis is possible, this will be discussed directly with the requesting physician. documented in this encounter [facility] 04-25-2023 Note HNO ID: [id number] Author: Sarah Hubbard MD Service: ? Author Type: Physician Type: Progress Notes Filed: 04/25/2023 1:09 PM Note Text: Sarah Hubbard M.D. Department of Endocrine Surgery Endocrinology [place] [address] ENDOCRINE SURGERY NEW PATIENT VISIT NAME: Sandy Bal CLINIC NO: [id number] : 1950 History of Present Illness: Sandy Bal is a 73 year old female referred by Dr. Petros Ortiz for evaluation of left-sided goiter with multiple nodules, largest 4 cm. Patient reports onset of dysphagia and hoarseness in 01/2023. Around the same time she noticed a left neck mass. She believes the mass has increased in size over the past 2 months. FNA of 3 separate left thyroid nodules - [place] 3 and 4. No molecular testing was performed. My findings and recommendations will be communicated by way of the shared medical record. ENDOCRINE SURGICAL HISTORY: New or established diagnosis: established Prior history of radiation treatment to the neck: no Known thyroid disease: yes Known parathyroid disease: no Prior neck operations: no Family history of hypercalcemia: no Family history of thyroid cancer: no Family history of other endocrine tumors: no Pertinent medications (levothyroxine, blood thinners, calcium, diuretics, lithium, Sensipar, biotin): xarelto PMH: PAST MEDICAL HISTORY Diagnosis Date Acute kidney failure with other specified pathological lesion in kidney October 2006 Temporary dialysis Anemia, unspecified 12/26/2006 Bowel disease IBD Cellulitis 2010, 2011 lower legs Chronic rhinitis 12/26/2006 Critical illness polyneuropathy (HCC) October 2006 Depressive disorder, not elsewhere classified 12/26/2006 Embolism and thrombosis of unspecified site 12/26/2006 Left leg DVT in 2006 (during hospitalization) Essential hypertension, benign 11/01/2006 Generalized osteoarthrosis, unspecified site Knees Headache(784.0) 12/26/2006 Lumbago 12/26/2006 Lumbar disc disease. Myalgia and myositis, unspecified Fibromyalgia Obesity, unspecified 11/01/2006 RILEY on CPAP 11/01/2006 On BiPaP . Other and unspecified hyperlipidemia 07/01/2007 Panniculitis 12/06/2010 Periodic limb movement disorder 11/01/2006 Peripheral vascular disease (HCC) Regional enteritis of large intestine (HCC) 11/01/2006 Collagenous colitis Renal calculus, right 08/23/2011 REmoved 01/13 Ca oxalate Severe sepsis(995.92) October 2006 Multiorgan failure Shingles 2000 Left chin Spinal stenosis, other than cervical Disc herniations, lumbar STAPHYLOCOCCUS AUREUS 07/09/2007 Type II or unspecified type diabetes mellitus without mention of complication, not stated as uncontrolled 12/26/2006 Unspecified asthma(493.90) Unspecified sleep apnea 11/01/2006 on BiPAP WOUND COMPLICATED (OPEN) ABD WALL, ANTER 07/09/2007 PSH: PAST SURGICAL HISTORY Procedure Laterality Date BX BREAST PERC VACUUM/ROTN 03/20/10 Benign COLONOSCOPY FLX DX W/COLLJ SPEC WHEN PFRMD 2005 Colonoscopy CYSTOSCOPY, URETERAL STENT CHANGE/INSERTION 01/13/2013 Right side. DILATION AND CURETTAGE DXAND/THER NONOBSTETRIC 1970s Dilation AND curettage NEPHROSTOMY URETERAL DILATION 01/13/2013 Right perc. ureteroscopy, stone manip. TOTAL ABDOMINAL HYSTERECT W/WO RMVL TUBE OVARY 1987 Hysterectomy, CHICA, appy CURRENT MEDICATIONS: Current Outpatient Medications on File Prior to Visit Medication Sig betamethasone dipropionate 0.05 % ointment apply to rash on legs, wrap with saran wrap and cover with socks at night furosemide (LASIX) 40 mg tablet Take 80 mg by mouth once daily. triamcinolone acetonide (KENALOG) 0.1 % ointment apply to rash and wrap daily insulin glargine (LANTUS SOLOSTAR) 100 unit/mL (3 mL) inpn Inject 15 units SC at bedtime metFORMIN ER (GLUCOPHAGE XR) 500 mg 24 hr tablet Take 1 tablet by mouth twice daily before meals. esomeprazole (NEXIUM) 40 mg capsule TAKE ONE(1) CAPSULE DAILY 1/2 HR BEFORE MEAL. Insulin [place], Disposable, (PEN NEEDLE) 29 x 1/2 ndle Use daily for insulin as directed. sitaGLIPtin (JANUVIA) 100 mg tablet Take 1 tablet by mouth once daily. fluticasone-salmeterol (ADVAIR DISKUS) 250-50 mcg/dose dsdv Inhale 1 Puff as instructed twice daily. RINSE AND GARGLE MOUTH WITH WATER AFTER EACH USE. tolterodine LA (DETROL LA) 4 mg 24 hr capsule Take 1 capsule by mouth once daily. Replacing oxybutynin. potassium chloride SR (K-DUR) 20 mEq tablet Take 2 tablets (40meq) daily. venlafaxine 100 mg tablet Take 1 tablet by mouth three times daily. rOPINIRole 0.5 mg tablet Take 1 tablet by mouth daily at bedtime. blood sugar diagnostic (BLOOD GLUCOSE TEST) test strip TEST BLOOD SUGAR 4 TIMES PER DAY. DX: 250.00. INSULIN DEP: YES. AM-MED Diabetic Supplies. [email or web address] diltiazem CD (CARTIA XT) 180 mg 24 hr capsule Take 2 capsules by mouth once daily. prega (more content not included)... [facility] 04-16-2023 Miscellaneous Notes 04/17/2023 - [facility] for Anika Cedeno Appointment 04/25 [facility] - 02/25/23 Thyroid US - 03/01/23 documented in this encounter [facility] 06-20-2021 Note . MICRO - Microbiology PROCEDURE: Blood Culture (bacterial) [*1] SOURCE: Blood BODY SITE: COLLECTED DATE/TIME: 06/15/2021 08:36 EST RECEIVED DATE/TIME: 06/15/2021 15:38 EST START DATE/TIME: 06/15/2021 15:38 EST FREE TEXT SOURCE: FINAL REPORTS Final Report [] Verified Date/Time/Personnel: 06/20/2021 15:59 EST Blood Culture: No Growth at 5 days. PRELIMINARY REPORTS Preliminary Report [] Verified Date/Time/Personnel: 06/15/2021 16:59 EST Culture has been received in lab and is no growth to date. Routine cultures are held for 5 days. Performing Locations *1: This test was performed at: [address], [address] [place] [address] ([place]) 06-18-2021 Note . MICRO - Microbiology PROCEDURE: Blood Culture (bacterial) [*1] SOURCE: Blood BODY SITE: COLLECTED DATE/TIME: 06/13/2021 08:52 EST RECEIVED DATE/TIME: 06/13/2021 14:31 EST START DATE/TIME: 06/13/2021 14:31 EST FREE TEXT SOURCE: FINAL REPORTS Final Report [] Verified Date/Time/Personnel: 06/18/2021 14:59 EST Blood Culture: No Growth at 5 days. PRELIMINARY REPORTS Preliminary Report [] Verified Date/Time/Personnel: 06/13/2021 15:59 EST Culture has been received in lab and is no growth to date. Routine cultures are held for 5 days. Performing Locations *1: This test was performed at: [address], [address] [place] [address] ([place]) 06-16-2021 Note ORIGINAL PROCEDURE: 1. PICC placement with fluoroscopy and ultrasound guidance SUGAR PRESSER: Sheri Maldonado PA-C CLINICAL STATEMENT: Left great toe osteomyelitis requiring amputation and long-term IV antibiotics MATERIALS: MedComp 5 Fr dual lumen PICC Probe cover CHG dressing FLUORO: 0.3 minutes AIR KERMA DOSE: 9.1 mGy ACCESS VESSEL: Left basilic vein TIP LOCATION: Near the cavoatrial junction CATHETER LENGTH: 45 cm The procedure, risks, and alternatives, were discussed and all questions were answered. Written informed consent obtained. Accompanying paperwork was verified for accuracy. Directed history and physical exam performed prior to the procedure. Medication reconciliation performed by nursing personnel. Procedure was performed using a cap, sterile gown, sterile gloves, a large sterile sheet, hand hygiene and 2% chlorhexidine for cutaneous antisepsis. The patient was positioned on the table and prepped and draped in usual sterile fashion. A critical pause was performed with assisting personnel just prior to the procedure with the patient's identity confirmed using 2 identifiers, confirming site and side. A preliminary ultrasound was performed demonstrating vessel patency with flow. An image was obtained. 2% lidocaine was administered at the puncture site for local anesthesia. Under direct ultrasound guidance, a 21 gauge needle was used to access the vein. A wire was advanced and a peel-away sheath was placed. A small skin incision was made. The catheter length was measured using the guidewire. After trimming the PICC to the appropriate length, it was advanced through the sheath lead by the wire under fluoroscopy. The catheter was positioned with the tip positioned as above. Function of catheter lumens was evaluated and appropriate. The catheter was secured to the skin. A sterile dressing was applied. The patient tolerated the procedure well. Complications:None EBL: None Condition: Stable, unchanged IMPRESSION: 1. Successful PICC placement. Procedure was performed by Sheri Maldonado PA-C Interpreted by: Duy Muller MD Preliminary Report By: Sheri Maldonado PA-C Electronically signed By Duy Muller MD Dictated Date: 06/16/2021 3:23:04 PM Prelim Date: 06/16/2021 3:25:00 PM Sign Date: 06/16/2021 4:14:24 PM Ordering Provider: [facility] ([place]) 06-16-2021 Note . MICRO - Microbiology PROCEDURE: Blood Culture (bacterial) [*1] SOURCE: Blood BODY SITE: COLLECTED DATE/TIME: 06/13/2021 08:52 EST RECEIVED DATE/TIME: 06/13/2021 14:31 EST START DATE/TIME: 06/13/2021 14:31 EST FREE TEXT SOURCE: FINAL REPORTS Final Report [] Verified Date/Time/Personnel: 06/16/2021 08:13 EST Methicillin-Resistant Staphylococcus aureus Isolated from aerobe bottle only. This staphylococci does not demonstrate inducible clindamycin resistance in vitro. PRELIMINARY REPORTS Preliminary Report [] Verified Date/Time/Personnel: 06/15/2021 08:30 EST Staphylococcus aureus Isolated from aerobe bottle only. MOE to follow Preliminary Report [] Verified Date/Time/Personnel: 06/13/2021 15:59 EST Culture has been received in lab and is no growth to date. Routine cultures are held for 5 days. STAINS GSAER [] Verified Date/Time/Personnel: 06/14/2021 04:17 EST Gram Positive Cocci in clusters SUSCEPTIBILITY RESULTS Methicillin-Resistant Staphylococcus aureus Antibiotic MOE Dilut MOE Inter Ampicillin/ <=8/4 Resistant Sulbactam Azithromycin >4 Resistant Cefepime 8 Resistant Cefotaxime <=8 Resistant Ceftaroline <=0.5 Susceptible Ceftriaxone 8 Resistant Ciprofloxacin <=1 Susceptible Clindamycin <=0.25 Susceptible Daptomycin <=0.5 Susceptible Erythromycin 4 Intermediate Imipenem <=4 Resistant Levofloxacin <=1 Susceptible Linezolid 2 Susceptible Meropenem <=2 Resistant Oxacillin >2 Resistant Penicillin >2 Resistant Rifampin <=1 Susceptible Tetracycline <=4 Susceptible Trimethoprim/ <=0.5/9.5 Susceptible Sulfa Vancomycin 1 Susceptible Performing Locations *1: This test was performed at: [address], [address] [place] [address] ([place]) 06-15-2021 Note . MICRO - Microbiology PROCEDURE: Urine Culture [*1] SOURCE: Urine, Clean Catch BODY SITE: COLLECTED DATE/TIME: 06/13/2021 11:14 EST RECEIVED DATE/TIME: 06/13/2021 21:13 EST START DATE/TIME: 06/13/2021 21:14 EST FREE TEXT SOURCE: FINAL REPORTS Final Report [] Verified Date/Time/Personnel: 06/15/2021 08:09 EST >100,000 cfu/ml Multiple bacterial morphotypes present. Probable Contamination. Suggest recollection if clinically indicated. PRELIMINARY REPORTS Preliminary Report [] Verified Date/Time/Personnel: 06/14/2021 14:48 EST Culture results pending. Performing Locations *1: This test was performed at: [address], [address] [place] [address] ([place]) documented as of this encounter (statuses as of 04/17/2023) [facility] History of Past illness Narrative* Problem Noted Date Diagnosed Date Resolved Date Urgency of urination 08/23/2011 013 Frequency of urination 08/23/201101/22 Right flank pain 08/23/2011 01/22/2013 Polypharmacy 08/23/2011 01/22/2013 Dehydration 08/23/2011 12/20/2011 Panniculitis 12/06/2010 12/20/2011 Lipomas: multiple subutaneou s eruptive lipoma-like nodules but nontender and transient 12/06/2010 12/20/2011 Rash and other nonspecific skin eruption--Subcutaneous Nodules Erupting Transiently, not really any rash 12/06/2010 012 Localized superficial swelli ng, mass, or lump: multiple, subcutaneous, nontender, transient, disseminated, ?etiology, ?diagnosis 12/06/2010 12/20/2011 Abnormal mammogram, unspecified 03/17/2010 01/22/2013 Lipoma of unspecified site 03/17/2010 0 03/07/2011 Other adjustment reaction wi th predominant disturbance of other emotions 02/24/2010 12/20/2011 Shortness of breath 10/20/2007 03/07/20 11 Regional enteritis of large intestine 11/01/2006 01/22/2013 Overview: Collagenous colitis documented as of this encounter (statuses as of 04/27/2023) [facility] [facility] Past illness Narrative* Problem Noted Date Diagnosed Date Resolved Date Urgency of urination 08/23/2011 013 Frequency of urination 08/23/201101/22 Right flank pain 08/23/2011 01/22/2013 Polypharmacy 08/23/2011 01/22/2013 Dehydration 08/23/2011 12/20/2011 Panniculitis 12/06/2010 12/20/2011 Lipomas: multiple subutaneou s eruptive lipoma-like nodules but nontender and transient 12/06/2010 12/20/2011 Rash and other nonspecific skin eruption--Subcutaneous Nodules Erupting Transiently, not really any rash 12/06/2010 012 Localized superficial swelli ng, mass, or lump: multiple, subcutaneous, nontender, transient, disseminated, ?etiology, ?diagnosis 12/06/2010 12/20/2011 Abnormal mammogram, unspecified 03/17/2010 01/22/2013 Lipoma of unspecified site 03/17/2010 0 03/07/2011 Other adjustment reaction wi th predominant disturbance of other emotions 02/24/2010 12/20/2011 Shortness of breath 10/20/2007 03/07/20 11 Regional enteritis of large intestine 11/01/2006 01/22/2013 Overview: Collagenous colitis documented as of this encounter (statuses as of 05/04/2023) [facility] History of Past illness Narrative* Problem Noted Date Diagnosed Date Resolved Date Urgency of urination 08/23/2011 013 Frequency of urination 08/23/201101/22 Right flank pain 08/23/2011 01/22/2013 Polypharmacy 08/23/2011 01/22/2013 Dehydration 08/23/2011 12/20/2011 Panniculitis 12/06/2010 12/20/2011 Lipomas: multiple subutaneou s eruptive lipoma-like nodules but nontender and transient 12/06/2010 12/20/2011 Rash and other nonspecific skin eruption--Subcutaneous Nodules Erupting Transiently, not really any rash 12/06/2010 012 Localized superficial swelli ng, mass, or lump: multiple, subcutaneous, nontender, transient, disseminated, ?etiology, ?diagnosis 12/06/2010 12/20/2011 Abnormal mammogram, unspecified 03/17/2010 01/22/2013 Lipoma of unspecified site 03/17/2010 0 03/07/2011 Other adjustment reaction wi th predominant disturbance of other emotions 02/24/2010 12/20/2011 Shortness of breath 10/20/2007 03/07/20 11 Regional enteritis of large intestine 11/01/2006 01/22/2013 Overview: Collagenous colitis documented as of this encounter (statuses as of 06/10/2023) [facility] History of Past illness Narrative* Problem Noted Date Diagnosed Date Resolved Date Urgency of urination 08/23/2011 013 Frequency of urination 08/23/201101/22 Right flank pain 08/23/2011 01/22/2013 Polypharmacy 08/23/2011 01/22/2013 Dehydration 08/23/2011 12/20/2011 Panniculitis 12/06/2010 12/20/2011 Lipomas: multiple subutaneou s eruptive lipoma-like nodules but nontender and transient 12/06/2010 12/20/2011 Rash and other nonspecific skin eruption--Subcutaneous Nodules Erupting Transiently, not really any rash 12/06/2010 012 Localized superficial swelli ng, mass, or lump: multiple, subcutaneous, nontender, transient, disseminated, ?etiology, ?diagnosis 12/06/2010 12/20/2011 Abnormal mammogram, unspecified 03/17/2010 01/22/2013 Lipoma of unspecified site 03/17/2010 0 03/07/2011 Other adjustment reaction wi th predominant disturbance of other emotions 02/24/2010 12/20/2011 Shortness of breath 10/20/2007 03/07/20 11 Regional enteritis of large intestine 11/01/2006 01/22/2013 Overview: Collagenous colitis documented as of this encounter (statuses as of 06/11/2023) [facility] History of Past illness Narrative* Problem Noted Date Diagnosed Date Resolved Date Urgency of urination 08/23/2011 013 Frequency of urination 08/23/201101/22 Right flank pain 08/23/2011 01/22/2013 Polypharmacy 08/23/2011 01/22/2013 Dehydration 08/23/2011 12/20/2011 Panniculitis 12/06/2010 12/20/2011 Lipomas: multiple subutaneou s eruptive lipoma-like nodules but nontender and transient 12/06/2010 12/20/2011 Rash and other nonspecific skin eruption--Subcutaneous Nodules Erupting Transiently, not really any rash 12/06/2010 012 Localized superficial swelli ng, mass, or lump: multiple, subcutaneous, nontender, transient, disseminated, ?etiology, ?diagnosis 12/06/2010 12/20/2011 Abnormal mammogram, unspecified 03/17/2010 01/22/2013 Lipoma of unspecified site 03/17/2010 0 03/07/2011 Other adjustment reaction wi th predominant disturbance of other emotions 02/24/2010 12/20/2011 Shortness of breath 10/20/2007 03/07/20 11 Regional enteritis of large intestine 11/01/2006 01/22/2013 Overview: Collagenous colitis documented as of this encounter (statuses as of 06/19/2023) [facility] of Past illness Narrative* Problem Noted Date Diagnosed Date Resolved Date Urgency of urination 08/23/2011 013 Frequency of urination 08/23/201101/22 Right flank pain 08/23/2011 01/22/2013 Polypharmacy 08/23/2011 01/22/2013 Dehydration 08/23/2011 12/20/2011 Panniculitis 12/06/2010 12/20/2011 Lipomas: multiple subutaneou s eruptive lipoma-like nodules but nontender and transient 12/06/2010 12/20/2011 Rash and other nonspecific skin eruption--Subcutaneous Nodules Erupting Transiently, not really any rash 12/06/2010 012 Localized superficial swelli ng, mass, or lump: multiple, subcutaneous, nontender, transient, disseminated, ?etiology, ?diagnosis 12/06/2010 12/20/2011 Abnormal mammogram, unspecified 03/17/2010 01/22/2013 Lipoma of unspecified site 03/17/2010 0 03/07/2011 Other adjustment reaction wi th predominant disturbance of other emotions 02/24/2010 12/20/2011 Shortness of breath 10/20/2007 03/07/20 11 Regional enteritis of large intestine 11/01/2006 01/22/2013 Overview: Collagenous colitis documented as of this encounter (statuses as of 06/27/2023) [facility] History of Past illness Narrative* Problem Noted Date Diagnosed Date Resolved Date Urgency of urination 08/23/2011 013 Frequency of urination 08/23/201101/22 Right flank pain 08/23/2011 01/22/2013 Polypharmacy 08/23/2011 01/22/2013 Dehydration 08/23/2011 12/20/2011 Panniculitis 12/06/2010 12/20/2011 Lipomas: multiple subutaneou s eruptive lipoma-like nodules but nontender and transient 12/06/2010 12/20/2011 Rash and other nonspecific skin eruption--Subcutaneous Nodules Erupting Transiently, not really any rash 12/06/2010 012 Localized superficial swelli ng, mass, or lump: multiple, subcutaneous, nontender, transient, disseminated, ?etiology, ?diagnosis 12/06/2010 12/20/2011 Abnormal mammogram, unspecified 03/17/2010 01/22/2013 Lipoma of unspecified site 03/17/2010 0 03/07/2011 Other adjustment reaction wi th predominant disturbance of other emotions 02/24/2010 12/20/2011 Shortness of breath 10/20/2007 03/07/20 11 Regional enteritis of large intestine 11/01/2006 01/22/2013 Overview: Collagenous colitis documented as of this encounter (statuses as of 06/28/2023) [facility] History of Past illness Narrative* Problem Noted Date Diagnosed Date Resolved Date Urgency of urination 08/23/2011 013 Frequency of urination 08/23/201101/22 Right flank pain 08/23/2011 01/22/2013 Polypharmacy 08/23/2011 01/22/2013 Dehydration 08/23/2011 12/20/2011 Panniculitis 12/06/2010 12/20/2011 Lipomas: multiple subutaneou s eruptive lipoma-like nodules but nontender and transient 12/06/2010 12/20/2011 Rash and other nonspecific skin eruption--Subcutaneous Nodules Erupting Transiently, not really any rash 12/06/2010 012 Localized superficial swelli ng, mass, or lump: multiple, subcutaneous, nontender, transient, disseminated, ?etiology, ?diagnosis 12/06/2010 12/20/2011 Abnormal mammogram, unspecified 03/17/2010 01/22/2013 Lipoma of unspecified site 03/17/2010 0 03/07/2011 Other adjustment reaction wi th predominant disturbance of other emotions 02/24/2010 12/20/2011 Shortness of breath 10/20/2007 03/07/20 11 Regional enteritis of large intestine 11/01/2006 01/22/2013 Overview: Collagenous colitis documented as of this encounter (statuses as of 06/28/2023) [facility] Neck mass- Primary Swelling, mass, or lump in head and neck [facility] this [facility] Diagnosis 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 and other parts of nervous system documented in this encounter [facility] note* Diagnosis 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 and other parts of nervous system [facility] 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 and other parts of nervous system documented in this encounter [facility] note* Diagnosis Thyroid cancer (HCC) Malignant neoplasm of thyroid gland documented in this encounter [facility] Summary Purpose Family History No Family History Records FoundNo Family History Records Found Advance Directives No Advanced Directives Records FoundDocuments on File Type Date 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 Advance Directive(s) 04/29/2023 11:52 AM Documents on File Type Date 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 Advance Directive(s) 04/29/2023 11:52 AM Reason for Referral Specialty Diagnoses / Procedures Referred By Grady perez Referred To Contact CT IMAGING Diagnoses Follicular neoplasm of thyroid Procedures CT NECK SOFT TISSUE W IVCON CT SOFT TISSUE NECK W/CONTRAST MATERIAL Del Hang Berman MD [address] [address] [address] [place] [address] Referral ID Status Reason Start Date Expiration Date Visits Requested Visits Authorized [id number] Pending Review Auto-Generat ed Referral 3 07/17/2024 1 1 Referral ID Status Reason Start Date Expiration Date V isits Requested Visits Authorized [id number] Closed Auto-Generate d Referral 06/18/2023 07/17/2024 1 1 Specialty Diagnoses / Procedures Referred By Grady perez Referred To Contact Diagnoses Thyroid cancer (HCC) Procedures REFER TO PACC - PRE ANESTHESIA CONSULTATION CLINIC OFFICE/OUTPATIENT [facility] 60-74 MINUTES Juan Jose Gutierrez MD [address] [place] [address] Referral ID Status Reason Start Date Expiration Date Visits Requested Visits Authorized [id number] Pending Review PCP Requested Referral 3 06/26/2024 1 1 Specialty Diagnoses / Procedures Referred By Contac t Referred To Contact [facility] Diagnoses Thyroid cancer (HCC) Procedures ECG COMPLETE ECG ROUTINE ECG W/LEAST 12 LDS W/I&R Juan Jose Gutierrez MD [address] [place] [address] [facility] [place] [address] [place] [address] Referral ID Status Reason Start Date Expiration Date Visits Requested Visits Authorized [id number] Pending Review Auto-Generat ed Referral 3 06/26/2024 1 1 Additional Source Comments INFORMATION SOURCE (unrecogn ized section and content) DATE CREATED AUTHOR AUTHOR'S ORGANIZ ATION 06/29/2023 [facility] Source Comments (unrecognize d section and content) In the event this informatio n is protected by the Federal Confidentiality of Alcohol and Drug Abuse Patient Records regulations: The Federal rules restrict any use of the information to criminally investigate or prosecute any alcohol or drug abuse patient.[facility] event this information is protected by the Federal Confidentiality of Alcohol and Drug Abuse Patient Records regulations: The Federal rules restrict any use of the information to criminally investigate or prosecute any alcohol or drug abuse patient.[facility] the event this information is protected by the Federal Confidentiality of Alcohol and Drug Abuse Patient Records regulations: The Federal rules restrict any use of the information to criminally investigate or prosecute any alcohol or drug abuse patient.[facility] the event this information is protected by the Federal Confidentiality of Alcohol and Drug Abuse Patient Records regulations: The Federal rules restrict any use of the information to criminally investigate or prosecute any alcohol or drug abuse patient.[facility] the event this information is protected by the Federal Confidentiality of Alcohol and Drug Abuse Patient Records regulations: The Federal rules restrict any use of the information to criminally investigate or prosecute any alcohol or drug abuse patient.[facility] the event this information is protected by the Federal Confidentiality of Alcohol and Drug Abuse Patient Records regulations: The Federal rules restrict any use of the information to criminally investigate or prosecute any alcohol or drug abuse patient.[facility] the event this information is protected by the Federal Confidentiality of Alcohol and Drug Abuse Patient Records regulations: The Federal rules restrict any use of the information to criminally investigate or prosecute any alcohol or drug abuse patient.[facility] the event this information is protected by the Federal Confidentiality of Alcohol and Drug Abuse Patient Records regulations: The Federal rules restrict any use of the information to criminally investigate or prosecute any alcohol or drug abuse patient.[facility] the event this information is protected by the Federal Confidentiality of Alcohol and Drug Abuse Patient Records regulations: The Federal rules restrict any use of the information to criminally investigate or prosecute any alcohol or drug abuse patient.[facility] Reason for Visit (unrecogniz ed section and content) Reason Comments Biopsy Request Reason Comments Patient Question Reason Comments Consult Specialty Diagnoses / Procedures Referred By Contac t Referred To Contact Endocrinology / ENDOCRINOLOGY Diagnoses Thyroid Cancer Procedures NEW SHANA Petros Spicer MD [address] [address] Hang Martinez MD [address] [address] Referral ID Status Reason Start Date Expiration Date V isits Requested Visits Authorized [id number] Outside PCP 06/07/2023 08/06/2023 1 1 Reason Comments Patient Update Reason Comments Radiology CT Specialty Diagnoses / Procedures Referred By Grady perez Referred To Contact CT IMAGING Diagnoses Follicular neoplasm of thyroid Procedures CT NECK SOFT TISSUE W IVCON CT SOFT TISSUE NECK W/CONTRAST MATERIAL Hang Martinez MD [address] [facility] [address] [place] [address] [place] [address] Referral ID Status Reason Start Date Expiration Date V isits Requested Visits Authorized [id number] Closed Auto-Generate d Referral 06/18/2023 07/17/2024 1 1 Reason Comments Patient Education Preop Reason Comments Established Patient Follow-Up Pt states she has a thyroid cancer is getting bigger on the left side of her neck and she also states its hard for her to swallow and eat and she chocks a lot of her food and and drinks. Specialty Diagnoses / Procedures Referred By Grady perez Referred To Contact [facility] Diagnoses Thyroid cancer (HCC) Procedures CONSULT TO ENT OFFICE/OUTPATIENT NEW HIGH MDM 60-74 MINUTES OFFICE/OUTPATIENT ESTABLISHED HIGH MDM 40-54 MIN Rosa Silva MD [address] [place] [address] Juan Jose Gutierrez MD [address] [facility] [address] [place], [place] [id number] Referral ID Status Reason Start Date Expiration Date Visits Requested Visits Authorized [id number] Authorized PCP Requested Referral 3 06/11/2024 99 99 Care Teams (unrecognized sec tion and content) 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 Start Date End Date Rosa Silva MD [address] [place] [address] PCP - General Gerontology 05/02/23 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 Start Date End Date Rosa Silva MD [address] [place] [address] PCP - General Gerontology 05/02/23 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 Start Date End Date Rosa Silva MD [address] [place] [address] PCP - General Gerontology 05/02/23 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 This clinical summary was aggregated from multiple sources. Caution should be exercised in using it in the provision of clinical care. This summary normalizes information from multiple sources, and as a consequence, information in this document may materially change the coding, format and clinical context of patient data. In addition, data may be omitted in some cases. CLINICAL DECISIONS SHOULD BE BASED ON THE PRIMARY CLINICAL RECORDS. [facility]. provides no warranty or guarantee of the accuracy or completeness of information in this document.
[2023-07-16 09:17] LABS: Hematocrit 33.2 % (37-47); Mean Corp Hgb Conc 33.1 g/dL (32-36); Mean Corpuscular Hgb 28.1 pg (27.0-32.0); Mean Corpuscular Volume 84.9 fL (81-99); Mean Platelet Vol. 11.2 fl (6.2-12.0); Platelet Count 118 K/mm3 (150-450); RBC Distribution Width CV 15.3 % (11.6-14.6); RBC Distribution Width SD 46.5 fl (35.1-43.9); Red Blood Count 3.91 M/mm3 (4.2-5.4); White Blood Count 7.3 K/mm3 (4.4-11.0)
[2023-07-16 09:25] LABS: Anion Gap 4 (5-15); BUN 17 mg/dL (7-18); BUN/Creat Ratio 25.8 RATIO (10-20); Calcium,Total 9.3 mg/dL (8.5-10.1); Chloride 110 mmol/L (98-107); Creatinine, Serum 0.66 mg/dL (0.55-1.02); EST Glomerular Filtration Rate 93 mL/min (>60); Est Glom Filt Rate - Afr Amer 112 mL/min (>60); Glucose 131 mg/dL (74-106); Magnesium 1.9 mg/dL (1.6-2.6); Potassium 4.2 mmol/L (3.5-5.1); Sodium Level 140 mmol/L (136-145)
== END ==
LOC: OLS.SW 05:00
PROVIDERS: PCP Internal Medicine; Visit Provider Internal Medicine
DX: J44.9 Chronic obstructive pulmonary disease, unspecified (principal); E11.40 Type 2 diabetes mellitus with diabetic neuropathy, unspecified; E11.22 Type 2 diabetes mellitus with diabetic chronic kidney disease; N18.32 Chronic kidney disease, stage 3b
CPT/HCPCS: 36415; 80048; 83735; 85027

== ENCOUNTER → 2023-07-23 | Outpatient (REF) | payer MEDICARE, MEDICAID, SELFPAY ==
[2023-07-23 08:55] LABS: Hematocrit 31.2 % (37-47); Hemoglobin 10.2 g/dL (12.0-15.0); Mean Corp Hgb Conc 32.7 g/dL (32-36); Mean Corpuscular Hgb 27.6 pg (27.0-32.0); Mean Corpuscular Volume 84.6 fL (81-99); Mean Platelet Vol. 11.7 fl (6.2-12.0); Platelet Count 127 K/mm3 (150-450); RBC Distribution Width SD 45.3 fl (35.1-43.9); Red Blood Count 3.69 M/mm3 (4.2-5.4); White Blood Count 4.8 K/mm3 (4.4-11.0)
[2023-07-23 09:14] LABS: Anion Gap 5 (5-15); BUN 22 mg/dL (7-18); BUN/Creat Ratio 27.2 RATIO (10-20); Calcium,Total 9.2 mg/dL (8.5-10.1); Chloride 109 mmol/L (98-107); Creatinine, Serum 0.81 mg/dL (0.55-1.02); EST Glomerular Filtration Rate 73 mL/min (>60); Est Glom Filt Rate - Afr Amer 89 mL/min (>60); Glucose 178 mg/dL (74-106); Magnesium 1.9 mg/dL (1.6-2.6); Potassium 3.6 mmol/L (3.5-5.1); Sodium Level 140 mmol/L (136-145)
--- OUTSIDE RECORDS SUMMARY | 2023-07-24 18:18 | XMS RPT_ITS | CCD ---
Author Name Unknown Address [address] [place] [address] Organization [facility] Care Team Providers Care Webmethods Architect Name Role Phone Unavailable Primary Care Provider UnavailRosa Jones MD Primary Care Provider Rosa Silva MD Primary Care Provider [phone] ISELA ROSA Jules Primary Care Unavailable PETROS ORTIZ Referring Unavailable HANG MARTINEZ Attending SARAH Feliz Referring Unavailable SARAH HUBBARD Attending Unavailable BATSHEVA AZAR Referring Unavailable GUDLA, ROSA D Primary Care Unavailable SARAH HUBBARD Referring Unavailable JUAN JOSE GUTIERREZ Attending Unavailable CELIA TAVERAS Attending Unavailable CELIA TAVERAS Admitting Unavailable GUDLA, ROSA D Primary Care Unavailable GUDLA, ROSA D Primary Care Unavailable HANG MARITNEZ Referring Unavai lable GUDLA, ROSA D Primary Care Unavailable HANG MARTINEZ Referring Unavai lable Allergies Allergy Classification Reported Allergen(s) Allergy Type Date of Onset Reaction(s) Facility (10 sources) Latex; Translations: [LATEX, NATURAL RUBBER] Drug Allergy 4 Itching [facility] Work Phone: (10 sources) Penicillins; Translations: [PENICILLINS] Propensity to adverse reactions 7 Anaphylaxis [facility] Work Phone: (10 sources) Salicylate product; Translations: [SALICYLATES] Propensity to adverse reactions 7 Hives [facility] Work Phone: (10 sources) Sulfonamides (Antibiotic); Translations: [SULFA (SULFONAMIDE ANTIBIOTICS)] Propensity to adverse reactions 7 Anaphylaxis [facility] Work Phone: (9 sources) Aspirin; Translations: [ASPIRIN] Drug Allergy 1 Unknown [facility] Medications Completed/Discontinued Medications Medication Drug Class(es) Dates [...] 157.5 cm Hang Martinez MD Work Phone: [facility] 06-07-2023 08:24-0500 Body weight 97.07 kg Hang Martinez MD Work Phone: [facility] 06-07-2023 08:24-0500 Diastolic blood pressure 53 mm[Hg] Hang Martinez MD Work Phone: [facility] 06-07-2023 08:24-0500 Heart rate 92 /min Hang Martinez MD Work Phone: [facility] 06-07-2023 08:24-0500 Systolic blood pressure 125 mm[Hg] Hang Martinez MD Work Phone: [facility] Encounters Encounter Date Encounter Type Care Provider Facility Start: 06-27-2023 End: 06-27-2023 ambulatory ROSA SILVA Facility:[facility] Start: 06-27-2023 End: 06-27-2023 Patient encounter procedure Juan Jose Gutierrez MD Work Phone: Otolaryngology Procedures Date Procedure Procedure Detail Performing Clinician Start: 06-26-2023 Ct soft tissue neck w/contrast material Hang Martinez MD Work Phone: Start: 06-28-2005 Colonoscopy Sarah Hubbard MD Work Phone: Plan of Treatment Date Care Activity Detail Author Start: 06-07-2024 BP Controlled (<130/80) BP Controlle d (<130/80) [facility] Start: 06-27-2023 End: 09-26-2023 Basic metabolic 2000 panel - Serum or Plasma BASIC METABOLIC PNL Lab Routine Thyroid cancer (HCC) Expected: 06/27/2023, Expires: 09/26/2023 [facility] Work Phone: Immunizations Immunization Date Immunization Notes Care Provider Fa cili 06-21-2021 influenza virus vacc ine, unspecified formulation Sarah Hubbard MD Work Phone: [facility] 05-09-2018 influenza virus vacc ine, unspecified formulation Sarah Hubbard MD Work Phone: [facility] 05-13-2014 influenza, seasonal, injectable Sarah Hubbard MD Work Phone: [facility] 05-15-2013 influenza virus vacc ine, unspecified formulation Sarah Hubbard MD Work Phone: [facility] Work Phone: 11-08-2012 pneumococcal polysaccharide vaccine, 23 valent Sarah Hubbard MD Work Phone: [facility] 05-12-2012 influenza virus vacc ine, unspecified formulation Sarah Hubbard MD Work Phone: [facility] Work Phone: 05-16-2011 influenza virus vacc ine, unspecified formulation Sarah Hubbard MD Work Phone: [facility] Work Phone: 11-04-2008 tetanus and diphther ia toxoids, adsorbed, preservative free, for adult use (2 Lf of tetanus toxoid and 2 Lf of diphtheria toxoid) Sarah Hubbard MD Work Phone: [facility] Work Phone: 09-02-2008 influenza virus vacc ine, unspecified formulation Sarah Hubbard MD Work Phone: [facility] Work Phone: 06-26-2007 influenza virus vacc ine, unspecified formulation Sarah Hubbard MD Work Phone: [facility] Work Phone: 07-29-1994 pneumococcal polysaccharide vaccine, 23 marlenaent Sarah Hubbard MD Work Phone: [facility] Work Phone: Payers Date Payer Category Payer Medicare [employer] MED[employer]ARE A [place] MED[place] [employer]URE HMO D SNP [id number] 2021-Present [phone] [address] [place] [address] Medicare [id number] 2021 Medicare [id number] 2019 Medicaid [employer] A[employer] MEDICAID [id number] 2019-Present [phone] [address] [place] [address] Medicaid [id number] 2019 Medicaid [id number] Social History Date Type Detail Facility Start: 07-05-2011 Tobacco smoking stat [facility] Never smoked tobacco [facility] Work Phone: Start: 07-05-2011 Tobacco use and exposure Smokeless tobacco non-user [facility] Work Phone: Start: 03-14-2022 End: 06-27-2023 Alcohol intake Current non-drinker of alcohol (finding) [facility] Start: 03-22-2016 End: 04-25-2023 History of Social function [facility] Start: 03-22-2016 End: 04-25-2023 Tobacco use panel [facility] National Score (1-100), lower number is lower risk Not on file [facility] Start: 12-26-2006 Alcohol Comment rare [facility] Start: 1950 Sex Assigned At Not on file [facility] Start: 1950 Sex Assigned At Female [facility] Start: 06-19-2023 Gender identity Identifies as female gender (finding) [facility] Medical Equipment Procedure Code Equipment Code Equipment Origin al Text Equipment Identifier Dates Stent Uret 7fr 2 4cm W/O Gw Inl - [id number] Start: 01-13-2013 TEST BLOOD SUGAR 4 TIMES PER DAY. DX: 250.00. INSULIN DEP: YES. [employer]. [email or web address] Start: 01-07-2014 Clinical Notes 08-23-2011 to 06-27-2023 Telephone Encounter - Liz Gomez RN - 06/27/2023 4:34 PM ESTSJuan Jose roman MD - 06/27/2023 2:50 PM Cate Estrada - 06/27/2023 2:29 PM EST Note Date & Type Note Facility 06-27-2023 Note HNO ID: [id number] Author: Juan Jose Gutierrez MD Service: ? Author Type: Physician Type: Progress Notes Filed: 06/27/2023 4:53 PM Note Text: [place] [facility] Consult This consult was requested by [...] HR BEFORE MEAL. 30 capsule 11 Insulin [place], Disposable, (PEN NEEDLE) 29 x 1/2 ndle Use daily for insulin as directed. 100 Each 1 sitaGLIPtin (JANUVI (more content not included)... [facility] 06-27-2023 Miscellaneous Notes AMBULATORY PATIENT EDUCATION NOTE [...] In Department: OTOLARYNGOLOGY documented in this encounter [facility] 06-27-2023 Note HNO ID: [id number] Author: Cate Negrete Service: ? Author Type: ? Type: Progress Notes Filed: 06/27/2023 4:53 PM Note Text: Tobacco Use: Never Was smoking cessation packet given? N/A - Patient is a non-smoker or quit >1 year ago. Was a referral initiated?N/A Patient is a non-smoker [facility] 06-27-2023 History of Present illness Narrative Palmer [...] HR BEFORE MEAL. 30 capsule 11 Insulin [place], Disposable, (PEN NEEDLE) 29 x 1/2 ndle [...] PER DAY. DX: 250.00. INSULIN DEP: YES. [employer]. [email or web address] 0 diltiazem CD (CARTIA [...] (FLONASE) 50 mcg/actuation nasal spray Use 1 [place] in each nostril daily at bedtime. 1 [...] (3 mL) Inject subcutaneously. oxycodone HCl,terephth/aspirin (OXYCODONE [id number] ORAL) Take 10 mg by mouth every [...] qDay, # 60 cap(s), 0 Refill(s), Pharmacy: [facility] levoFLOXacin (LEVAQUIN) 750 mg tablet NOVOLOG [...] is a non-smoker documented in this encounter [facility] 06-26-2023 Note HNO ID: [id number] Author: Blossom Trejo RT(R) Service: ? Author Type: Remelt Pan Tank Operator Type: Progress Notes Filed: 06/26/2023 4:18 PM [...] DATE: June 26, 2023 TIME: 4:17 PM [facility] 06-26-2023 History of Present illness Narrative Radiology [...] TIME: 4:17 PM documented in this encounter [facility] 06-18-2023 Miscellaneous Notes I called Pt and told her she may schedule the CT neck and have her a number to call. I also asked her to not take metformin the day before the CT scan and not restarting until we document her kidney function is good. Hang Martinez M.D. Endocrinology & Metabolism [place] documented in this encounter [facility] 06-10-2023 Miscellaneous Notes Attempted to reach patient to discuss plan of care going forward from Dr. Hubbard. Will attempt to reach patient again. NISHA Easley Endocrine Surgery documented in this encounter [facility] 06-07-2023 Note HNO ID: [id number] Author: Hang Martinez MD Service: ? Author [...] limb movement dis (more content not included)... [facility] 06-07-2023 History of Present illness Narrative Images [...] case was seen on consultation with Drs. Valljeo and Villa who agree. An additional report: [...] for fever (specify temp.). oxycodone HCl,terephth/aspirin (OXYCODONE DXY-[id number]-RDO ORAL) Take 10 mg by mouth every [...] mg by mouth daily with breakfast.) Insulin [place]et, Disposable, (PEN NEEDLE) 29 x 1/2 ndle Use daily for insulin as directed. diltiazem CD (CARTIA XT) 180 mg 24 hr capsule Take 2 capsules by mouth once daily. pregabalin (LYRICA) 100 mg capsule Take 1 capsule by mouth three times daily. fluticasone (FLONASE) 50 mcg/actuation nasal spray Use 1 [place] in each nostril daily at bedtime. ALBUTEROL [...] qDay, # 60 cap(s), 0 Refill(s), Pharmacy: [facility] levoFLOXacin (LEVAQUIN) 750 mg tablet ipratropium-albuterol (DUONEB) [...] PER DAY. DX: 250.00. INSULIN DEP: YES. [employer] Di[employer]. [email or web address] pravastatin 80 mg tablet Take 1 tablet [...] which included preparing to see the patient, [id number] patient care, completing clinical documentation, obtaining and/or reviewing separately obtained history, performing a medically appropriate examination, counseling and educating the patient/family/caregiver, and communicating with other HCPs (not separately reported). MD josefa Santana documented in this encounter [facility] 05-01-2023 Miscellaneous Notes Susan Estrada (Daughter) called in regarding their mother. Susan would like to know more information regarding her mothers' recent visit on 04/25. She also wanted to know more information on the appointment that she's scheduled for on 06/07 Good call back: [phone] documented in this encounter [facility] 04-26-2023 Miscellaneous Notes Please note, patient will hold Xarelto on 04/27/23 in anticipation of biopsy early next week. STAFF-INITIATED RADIOLOGY BIOPSY / ASPIRATION / DRAIN REQUEST FORM Date: April 26, 2023 Time: 4:05 PM PATIENT CONTACT INFORMATION: [phone] SCHEDULING: [facility] (Abdominal / Thoracic [...] OF THE REQUEST: US Date: 04/25/23 IMAGING: [facility] (If the imaging was obtained outside the [facility] system, PLEASE upload for review prior to approval.) Note to all persons requesting biopsies: All biopsy requests will be scheduled as quickly as possible, based on the clinical urgency, availability of appointment times, the need to hold anti-thrombolytic therapy (aspirin and other blood thinners) and the patient s schedule, including the need for an available limo driver. If a percutaneous biopsy or drainage is not felt to be safe or an alternative method for establishing a diagnosis is possible, this will be discussed directly with the requesting physician. documented in this encounter [facility] 04-25-2023 Note HNO ID: [id number] Author: Sarah Hubbard MD Service: ? Author Type: Physician Type: Progress Notes Filed: 04/25/2023 1:09 PM Note Text: Sarah Hubbard M.D. Department of Endocrine Surgery Endocrinology [place] [address] ENDOCRINE SURGERY NEW PATIENT VISIT NAME: Sandy Bal CLINIC NO: [id number] : 1950 History of Present Illness: Sandy [...] of 3 separate left thyroid nodules - [place] 3 and 4. No molecular testing was [...] CAPSULE DAILY 1/2 HR BEFORE MEAL. Insulin [place], Disposable, (PEN NEEDLE) 29 x 1/2 ndle [...] 250.00. INSULIN DEP: YES. [employer] Diabetic Supp[employer]. [email or web address] diltiazem CD (CARTIA XT) 180 mg 24 hr capsule Take 2 capsules by mouth once daily. prega (more content not included)... [facility] 04-16-2023 Miscellaneous Notes 04/17/2023 - [facility] for Anika Cedeno Appointment 04/25 [facility] - 02/25/23 Thyroid US - 03/01/23 documented in this encounter [facility] 06-20-2021 Note . MICRO - Microbiology PROCEDURE: [...] Locations *1: This test was performed at: [address], [address] [place] [address] ([place]) 06-18-2021 Note . MICRO - Microbiology PROCEDURE: [...] Locations *1: This test was performed at: [address], [address] [place] [address] ([place]) 06-16-2021 Note ORIGINAL PROCEDURE: 1. PICC placement with fluoroscopy and ultrasound guidance ORACLE TECHNICAL ARCHITECT: Sheri Maldonado PA-C CLINICAL STATEMENT: Left great [...] Sign Date: 06/16/2021 4:14:24 PM Ordering Provider: [facility] ([place]) 06-16-2021 Note . MICRO - Microbiology PROCEDURE: [...] Locations *1: This test was performed at: [address], [address] [place] [address] ([place]) 06-15-2021 Note . MICRO - Microbiology PROCEDURE: [...] Locations *1: This test was performed at: [address], [address] [place] [address] ([place]) documented as of this encounter (statuses as of 04/17/2023) [facility] History of Past illness Narrative* Problem Noted [...] of this encounter (statuses as of 04/27/2023) [facility] History of Past illness Narrative* Problem Noted [...] of this encounter (statuses as of 05/04/2023) [facility] History of Past illness Narrative* Problem Noted [...] of this encounter (statuses as of 06/10/2023) [facility] History of Past illness Narrative* Problem Noted [...] of this encounter (statuses as of 06/11/2023) [facility] History of Past illness Narrative* Problem Noted [...] of this encounter (statuses as of 06/19/2023) [facility] History of Past illness Narrative* Problem Noted [...] of this encounter (statuses as of 06/27/2023) [facility] History of Past illness Narrative* Problem Noted [...] of this encounter (statuses as of 06/28/2023) [facility] History of Past illness Narrative* Problem Noted [...] of this encounter (statuses as of 06/28/2023) [facility] Diagnosis Neck mass- Primary Swelling, mass, or lump in head and neck [facility] Diagnosis 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 and other parts of nervous system documented in this encounter [facility] note* Diagnosis 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 and other parts of nervous system [facility] 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 and other parts of nervous system documented in this encounter [facility] note* Diagnosis Thyroid cancer (HCC) Malignant neoplasm of thyroid gland documented in this encounter [facility] Summary Purpose Family History No Family History Records FoundNo Family History Records Found Advance Directives No Advanced Directives Records FoundDocuments on File Type Date Recorded Patient Project Hire Expl anation Advance Directive(s) 04/29/2023 11:52 AM Documents on File Type Date Recorded Patient Project Hire Expl anation Advance Directive(s) 04/29/2023 11:52 AM Reason for Referral Specialty Diagnoses / Procedures Referred By Grady perez Referred To Contact CT IMAGING Diagnoses Follicular neoplasm of thyroid Procedures CT NECK SOFT TISSUE W IVCON CT SOFT TISSUE NECK W/CONTRAST MATERIAL Del Hang Berman MD [address] [address] [address] [place] [address] Referral ID Status Reason Start Date Expiration Date Visits Requested Visits Authorized [id number] Pending Review Auto-Generat ed Referral 3 07/17/2024 1 1 Referral ID Status Reason Start Date Expiration Date V isits Requested Visits Authorized [id number] Closed Auto-Generate d Referral 06/18/2023 07/17/2024 1 1 Specialty Diagnoses / Procedures Referred By Grady perez Referred To Contact Diagnoses Thyroid cancer (HCC) Procedures REFER TO PACC - PRE ANESTHESIA CONSULTATION CLINIC OFFICE/OUTPATIENT [facility] [place] 60-74 MINUTES Juan Jose Gutierrez MD [address] [place] [address] Referral ID Status Reason Start Date Expiration Date Visits Requested Visits Authorized [id number] Pending Review PCP Requested Referral 3 06/26/2024 1 1 Specialty Diagnoses / Procedures Referred By Contac t Referred To Contact [facility] Diagnoses Thyroid cancer (HCC) Procedures ECG COMPLETE ECG ROUTINE ECG W/LEAST 12 LDS W/I&R Juan Jose Gutierrez MD [address] [place] [address] [facility] [place] [address] [place] [address] Referral ID Status Reason Start Date Expiration Date Visits Requested Visits Authorized [id number] Pending Review Auto-Generat ed Referral 3 06/26/2024 1 1 Additional Source Comments INFORMATION SOURCE (unrecogn ized section and content) DATE CREATED AUTHOR AUTHOR'S ORGANIZ ATION 07/19/2023 [facility] Source Comments (unrecognize d section and content) In the event this informatio n is protected by the Federal Confidentiality of Alcohol and Drug Abuse Patient Records regulations: The Federal rules restrict any use of the information to criminally investigate or prosecute any alcohol or drug abuse patient.[facility] event this information is protected by the Federal Confidentiality of Alcohol and Drug Abuse Patient Records regulations: The Federal rules restrict any use of the information to criminally investigate or prosecute any alcohol or drug abuse patient.[facility] the event this information is protected by the Federal Confidentiality of Alcohol and Drug Abuse Patient Records regulations: The Federal rules restrict any use of the information to criminally investigate or prosecute any alcohol or drug abuse patient.[facility] the event this information is protected by the Federal Confidentiality of Alcohol and Drug Abuse Patient Records regulations: The Federal rules restrict any use of the information to criminally investigate or prosecute any alcohol or drug abuse patient.[facility] the event this information is protected by the Federal Confidentiality of Alcohol and Drug Abuse Patient Records regulations: The Federal rules restrict any use of the information to criminally investigate or prosecute any alcohol or drug abuse patient.[facility] the event this information is protected by the Federal Confidentiality of Alcohol and Drug Abuse Patient Records regulations: The Federal rules restrict any use of the information to criminally investigate or prosecute any alcohol or drug abuse patient.[facility] the event this information is protected by the Federal Confidentiality of Alcohol and Drug Abuse Patient Records regulations: The Federal rules restrict any use of the information to criminally investigate or prosecute any alcohol or drug abuse patient.[facility] the event this information is protected by the Federal Confidentiality of Alcohol and Drug Abuse Patient Records regulations: The Federal rules restrict any use of the information to criminally investigate or prosecute any alcohol or drug abuse patient.[facility] the event this information is protected by the Federal Confidentiality of Alcohol and Drug Abuse Patient Records regulations: The Federal rules restrict any use of the information to criminally investigate or prosecute any alcohol or drug abuse patient.[facility] Reason for Visit (unrecogniz ed section and content) Reason Comments Biopsy Request Reason Comments Patient Question Reason Comments Consult Specialty Diagnoses / Procedures Referred By Contac t Referred To Contact Endocrinology / ENDOCRINOLOGY Diagnoses Thyroid Cancer Procedures NEW SHANA Petros Spicer MD [address] [address] Hang Martinez MD [address] [address] Referral ID Status Reason Start Date Expiration Date V isits Requested Visits Authorized [id number] Outside PCP 06/07/2023 08/06/2023 1 1 Reason Comments Patient Update Reason Comments Radiology CT Specialty Diagnoses / Procedures Referred By Grady perez Referred To Contact CT IMAGING Diagnoses Follicular neoplasm of thyroid Procedures CT NECK SOFT TISSUE W IVCON CT SOFT TISSUE NECK W/CONTRAST MATERIAL Hang Martinez MD [address] [facility] [address] [place] [address] [place] [address] Referral ID Status Reason Start Date Expiration Date V isits Requested Visits Authorized [id number] Closed Auto-Generate d Referral 06/18/2023 07/17/2024 1 [...] HIGH MDM 40-54 MIN Rosa Silva MD [address] [place] [address] Juan Jose Gutierrez MD [address] [facility] [address] [place], [place] [id number] Referral ID Status Reason Start Date Expiration Date Visits Requested Visits Authorized [id number] Authorized PCP Requested Referral 3 06/11/2024 99 99 Care Teams (unrecognized sec tion and content) Webmethods Architect Relationship Specialty Start Date End Date Rosa Silva MD [address] [place] [address] PCP - General Gerontology 05/02/23 Webmethods Architect Relationship Specialty Start Date End Date Rosa Silva MD [address] [place] [address] PCP - General Gerontology 05/02/23 Webmethods Architect Relationship Specialty Start Date End Date Rosa Silva MD [address] [place] [address] PCP - General Gerontology 05/02/23 Webmethods Architect Relationship Specialty Start Date End Date Rosa Silva MD [address] [place] [address] PCP - General Gerontology 05/02/23 FOR RECORDS [...] BE BASED ON THE PRIMARY CLINICAL RECORDS. [facility]. provides no warranty or guarantee of the accuracy or completeness of information in this document.
== END ==
LOC: OLS.SW 04:00
PROVIDERS: PCP Internal Medicine; Visit Provider Internal Medicine
DX: J44.9 Chronic obstructive pulmonary disease, unspecified (principal); E11.9 Type 2 diabetes mellitus without complications
CPT/HCPCS: 36415; 80048; 83735; 85027

== ENCOUNTER → 2023-07-30 | Outpatient (REF) | payer MEDICARE, MEDICAID, SELFPAY ==
--- OUTSIDE RECORDS SUMMARY | 2023-07-30 05:22 | XMS RPT_ITS | CCD ---
Author Name Unknown Address [address] [place] [address] Organization [facility] Care Team Providers Care Communications Controller Name Role Phone Unavailable Primary Care Provider UnavailRosa Jones MD Primary Care Provider Rosa Silva MD Primary Care Provider [phone] ISELA ROSA Jules Primary Care Unavailable PETROS ORTIZ Referring Unavailable HANG MARTINEZ Attending SARAH Feliz Referring Unavailable SARAH HUBBARD Attending Unavailable BATSHEVA AZAR Referring Unavailable GUDLA, ROSA D Primary Care Unavailable SARAH HUBBARD Referring Unavailable JUAN JOSE GUTIERREZ Attending Unavailable CELIA TAVERAS Attending Unavailable CELAI TAVERAS Admitting Unavailable GUDLA, ROSA D Primary Care Unavailable GUDLA, ROSA D Primary Care Unavailable HANG MARTINEZ Referring Unavai lable HEMALATHADLA, ROSA D Primary Care Unavailable HANG MARTINEZ Referring Unavai lable Allergies Allergy Classification Reported Allergen(s) Allergy Type Date of Onset Reaction(s) Facility (10 sources) Latex; Translations: [LATEX, NATURAL RUBBER] Drug Allergy 4 Itching [facility] Work Phone: (10 sources) Penicillins; Translations: [PENICILLINS] Propensity to adverse reactions 7 Anaphylaxis [facility] Work Phone: (10 sources) Salicylate product; Translations: [SALICYLATES] Propensity to adverse reactions 7 Hives [facility] Work Phone: (10 sources) Sulfonamides (Antibiotic); Translations: [SULFA (SULFONAMIDE ANTIBIOTICS)] Propensity to adverse reactions 7 Anaphylaxis [facility] Work Phone: (9 sources) Aspirin; Translations: [ASPIRIN] Drug Allergy 1 Unknown [facility] Medications Completed/Discontinued Medications Medication Drug Class(es) [...] 157.5 cm Hang Martinez MD Work Phone: [facility] 06-07-2023 08:24-0500 Body weight 97.07 kg Hang Martinez MD Work Phone: [facility] 06-07-2023 08:24-0500 Diastolic blood pressure 53 mm[Hg] Hang Martinez MD Work Phone: [facility] 06-07-2023 08:24-0500 Heart rate 92 /min Hang Martinez MD Work Phone: [facility] 06-07-2023 08:24-0500 Systolic blood pressure 125 mm[Hg] Hang Martinez MD Work Phone: [facility] Encounters Encounter Date Encounter Type Care Provider Facility Start: 06-27-2023 End: 06-27-2023 ambulatory ROSA SILVA Facility:[facility] Start: 06-27-2023 End: 06-27-2023 Patient encounter procedure Juan Jose Gutierrez MD Work Phone: Otolaryngology Procedures Date Procedure Procedure Detail Performing Clinician Start: 06-26-2023 Ct soft tissue neck w/contrast material Hang Martinez MD Work Phone: Start: 06-28-2005 Colonoscopy Sarah Hubbard MD Work Phone: Plan of Treatment Date Care Activity Detail Author Start: 06-07-2024 BP Controlled (<130/80) BP Controlle d (<130/80) [facility] Start: 06-27-2023 End: 09-26-2023 Basic metabolic 2000 panel - Serum or Plasma BASIC METABOLIC PNL Lab Routine Thyroid cancer (HCC) Expected: 06/27/2023, Expires: 09/26/2023 [facility] Work Phone: Immunizations Immunization Date Immunization Notes Care Provider Fa cili 06-21-2021 influenza virus vacc ine, unspecified formulation Sarah Hubbard MD Work Phone: [facility] 05-09-2018 influenza virus vacc ine, unspecified formulation Sarah Hubbard MD Work Phone: [facility] 05-13-2014 influenza, seasonal, injectable Sarah Hubbard MD Work Phone: [facility] 05-15-2013 influenza virus vacc ine, unspecified formulation Sarah Hubbard MD Work Phone: [facility] Work Phone: 11-08-2012 pneumococcal polysaccharide vaccine, 23 valent Sarah Hubbard MD Work Phone: [facility] 05-12-2012 influenza virus vacc ine, unspecified formulation Sarah Hubbard MD Work Phone: [facility] Work Phone: 05-16-2011 influenza virus vacc ine, unspecified formulation Sarah Hubbard MD Work Phone: [facility] Work Phone: 11-04-2008 tetanus and diphther ia toxoids, adsorbed, preservative free, for adult use (2 Lf of tetanus toxoid and 2 Lf of diphtheria toxoid) Sarah Hubbard MD Work Phone: [facility] Work Phone: 09-02-2008 influenza virus vacc ine, unspecified formulation Sarah Hubbard MD Work Phone: [facility] Work Phone: 06-26-2007 influenza virus vacc ine, unspecified formulation Sarah Hubbard MD Work Phone: [facility] Work Phone: 07-29-1994 pneumococcal polysaccharide vaccine, 23 marlenaent Sarah Hubbard MD Work Phone: [facility] Work Phone: Payers Date Payer Category Payer Medicare AETNA MEDICARE A ETNA MEDICARE ASSURE HMO D SNP [id number] 2021-Present [phone] [address] [place] [address] Medicare [id number] 2021 Medicare [id number] 2019 Medicaid [employer] A[employer] MEDICAID [id number] 2019-Present [phone] [address] [place] [address] Medicaid [id number] 2019 Medicaid [id number] Social History Date Type Detail Facility Start: 07-05-2011 Tobacco smoking stat [facility] Never smoked tobacco [facility] Work Phone: Start: 07-05-2011 Tobacco use and exposure Smokeless tobacco non-user [facility] Work Phone: Start: 03-14-2022 End: 06-27-2023 Alcohol intake Current non-drinker of alcohol (finding) [facility] Start: 03-22-2016 End: 04-25-2023 History of Social function [facility] Start: 03-22-2016 End: 04-25-2023 Tobacco use panel [facility] National Score (1-100), lower number is lower risk Not on file [facility] Start: 12-26-2006 Alcohol Comment rare [facility] Start: 1950 Sex Assigned At Not on file [facility] Start: 1950 Sex Assigned At Female [facility] Start: 06-19-2023 Gender identity Identifies as female gender (finding) [facility] Medical Equipment Procedure Code Equipment Code Equipment Origin al Text Equipment Identifier Dates Stent Uret 7fr 2 4cm W/O Gw Inl - [id number] Start: 01-13-2013 TEST BLOOD SUGAR 4 TIMES PER DAY. DX: 250.00. INSULIN DEP: YES. [employer] Diabetic Supplies. [email or web address] Start: 01-07-2014 Clinical Notes 08-23-2011 to 06-27-2023 Telephone Encounter - Liz Gomez RN - 06/27/2023 4:34 PM ESTSuJan Jose roman MD - 06/27/2023 2:50 PM Cate Estrada - 06/27/2023 2:29 PM EST Note Date & Type Note Facility 06-27-2023 Note HNO ID: [id number] Author: Juan Jose Gutierrez MD Service: ? Author Type: Physician Type: Progress Notes Filed: 06/27/2023 4:53 PM Note Text: [facility] Consult This consult was requested [...] HR BEFORE MEAL. 30 capsule 11 Insulin [place], Disposable, (PEN NEEDLE) 29 x 1/2 ndle Use daily for insulin as directed. 100 Each 1 sitaGLIPtin (JANUVI (more content not included)... [facility] 06-27-2023 Miscellaneous Notes AMBULATORY PATIENT EDUCATION [...] In Department: OTOLARYNGOLOGY documented in this encounter [facility] 06-27-2023 Note HNO ID: [id number] Author: Cate Negrete Service: ? Author Type: ? Type: Progress Notes Filed: 06/27/2023 4:53 PM Note Text: Tobacco Use: Never Was smoking cessation packet given? N/A - Patient is a non-smoker or quit >1 year ago. Was a referral initiated?N/A Patient is a non-smoker [facility] 06-27-2023 History of Present illness Narrative [facility] Consult This consult was requested by [...] HR BEFORE MEAL. 30 capsule 11 Insulin [place], Disposable, (PEN NEEDLE) 29 x 1/2 ndle [...] PER DAY. DX: 250.00. INSULIN DEP: YES. [employer] Diabetic Supplies. [email or web address] 0 diltiazem CD (CARTIA [...] (FLONASE) 50 mcg/actuation nasal spray Use 1 [place] in each nostril daily at bedtime. 1 [...] (3 mL) Inject subcutaneously. oxycodone HCl,terephth/aspirin (OXYCODONE [id number] ORAL) Take 10 mg by mouth every [...] qDay, # 60 cap(s), 0 Refill(s), Pharmacy: [facility] levoFLOXacin (LEVAQUIN) 750 mg tablet NOVOLOG [...] is a non-smoker documented in this encounter [facility] 06-26-2023 Note HNO ID: [id number] Author: Blossom rTejo RT(R) Service: ? Author Type: Broomcorn Seeder Type: Progress Notes Filed: 06/26/2023 4:18 PM [...] DATE: June 26, 2023 TIME: 4:17 PM [facility] 06-26-2023 History of Present illness Narrative [...] TIME: 4:17 PM documented in this encounter [facility] 06-18-2023 Miscellaneous Notes I called Pt and told her she may schedule the CT neck and have her a number to call. I also asked her to not take metformin the day before the CT scan and not restarting until we document her kidney function is good. Hang Martinez M.D. Endocrinology & Metabolism [place] documented in this encounter [facility] 06-10-2023 Miscellaneous Notes Attempted to reach patient to discuss plan of care going forward from Dr. Hubbard. Will attempt to reach patient again. NISHA Easley Endocrine Surgery documented in this encounter [facility] 06-07-2023 Note HNO ID: [id number] Author: Hang Martinez MD Service: ? Author [...] limb movement dis (more content not included)... [facility] 06-07-2023 History of Present illness Narrative [...] for fever (specify temp.). oxycodone HCl,terephth/aspirin (OXYCODONE [id number] ORAL) Take 10 mg by mouth every [...] mg by mouth daily with breakfast.) Insulin [place], Disposable, (PEN NEEDLE) 29 x 1/2 ndle Use daily for insulin as directed. diltiazem CD (CARTIA XT) 180 mg 24 hr capsule Take 2 capsules by mouth once daily. pregabalin (LYRICA) 100 mg capsule Take 1 capsule by mouth three times daily. fluticasone (FLONASE) 50 mcg/actuation nasal spray Use 1 [place] in each nostril daily at bedtime. ALBUTEROL [...] # 60 cap(s), 0 Refill(s), Pharmacy: [facility] levoFLOXacin (LEVAQUIN) 750 mg tablet ipratropium-albuterol (DUONEB) [...] PER DAY. DX: 250.00. INSULIN DEP: YES. [employer] Diabetic Supplies. [email or web address] pravastatin 80 mg tablet Take 1 tablet [...] which included preparing to see the patient, tuem-sq-dlge patient care, completing clinical documentation, obtaining and/or reviewing separately obtained history, performing a medically appropriate examination, counseling and educating the patient/family/caregiver, and communicating with other HCPs (not separately reported). MD josefa Santana documented in this encounter [facility] 05-01-2023 Miscellaneous Notes Susan Estrada (Daughter) called in regarding their mother. Susan would like to know more information regarding her mothers' recent visit on 04/25. She also wanted to know more information on the appointment that she's scheduled for on 06/07 Good call back: [phone] documented in this encounter [facility] 04-26-2023 Miscellaneous Notes Please note, patient will hold Xarelto on 04/27/23 in anticipation of biopsy early next week. STAFF-INITIATED RADIOLOGY BIOPSY / ASPIRATION / DRAIN REQUEST FORM Date: April 26, 2023 Time: 4:05 PM PATIENT CONTACT INFORMATION: [phone] SCHEDULING: [facility] (Abdominal / Thoracic [...] OF THE REQUEST: US Date: 04/25/23 IMAGING: [facility] (If the imaging was obtained outside the [facility] system, PLEASE upload for review prior to approval.) Note to all persons requesting biopsies: All biopsy requests will be scheduled as quickly as possible, based on the clinical urgency, availability of appointment times, the need to hold anti-thrombolytic therapy (aspirin and other blood thinners) and the patient s schedule, including the need for an available concrete mixer truck driver. If a percutaneous biopsy or drainage is not felt to be safe or an alternative method for establishing a diagnosis is possible, this will be discussed directly with the requesting physician. documented in this encounter [facility] 04-25-2023 Note HNO ID: [id number] Author: Sarah Hubbard MD Service: ? Author Type: Physician Type: Progress Notes Filed: 04/25/2023 1:09 PM Note Text: Sarah Hubbard M.D. Department of Endocrine Surgery Endocrinology Metabolism [place] [address] ENDOCRINE SURGERY NEW PATIENT VISIT NAME: Sandy Bal CLINIC NO: [id number] : 1950 History of Present Illness: Sandy [...] of 3 separate left thyroid nodules - [place] 3 and 4. No molecular testing was [...] CAPSULE DAILY 1/2 HR BEFORE MEAL. Insulin [place], Disposable, (PEN NEEDLE) 29 x 1/2 ndle [...] 250.00. INSULIN DEP: YES. [employer] Diabetic Supplies. [email or web address] diltiazem CD (CARTIA XT) 180 mg 24 hr capsule Take 2 capsules by mouth once daily. prega (more content not included)... [facility] 04-16-2023 Miscellaneous Notes 04/17/2023 - [facility] for Anika Cedeno Appointment 04/25 [facility] - 02/25/23 Thyroid US - 03/01/23 documented in this encounter [facility] 06-20-2021 Note . MICRO - Microbiology [...] Locations *1: This test was performed at: [address], [address] [place] [address] ([place]) 06-18-2021 Note . MICRO - Microbiology [...] Locations *1: This test was performed at: [address], [address] [place] [address] ([place]) 06-16-2021 Note ORIGINAL PROCEDURE: 1. PICC placement with fluoroscopy and ultrasound guidance MARKETING TEACHER: hSeri Maldonado PA-C CLINICAL STATEMENT: Left great toe [...] Sign Date: 06/16/2021 4:14:24 PM Ordering Provider: [facility] ([place]) 06-16-2021 Note . MICRO - Microbiology [...] Locations *1: This test was performed at: [address], [address] [place] [address] ([place]) 06-15-2021 Note . MICRO - Microbiology [...] Locations *1: This test was performed at: [address], [address] [place] [address] ([place]) documented as of this encounter (statuses as of 04/17/2023) [facility] History of Past illness Narrative* Problem [...] of this encounter (statuses as of 04/27/2023) [facility] History of Past illness Narrative* Problem [...] of this encounter (statuses as of 05/04/2023) [facility] History of Past illness Narrative* Problem [...] of this encounter (statuses as of 06/10/2023) [facility] History of Past illness Narrative* Problem [...] of this encounter (statuses as of 06/11/2023) [facility] History of Past illness Narrative* Problem [...] of this encounter (statuses as of 06/19/2023) [facility] History of Past illness Narrative* Problem [...] of this encounter (statuses as of 06/27/2023) [facility] History of Past illness Narrative* Problem [...] of this encounter (statuses as of 06/28/2023) [facility] History of Past illness Narrative* Problem [...] of this encounter (statuses as of 06/28/2023) [facility] Diagnosis Neck mass- Primary Swelling, mass, or lump in head and neck [facility] Diagnosis 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 and other parts of nervous system documented in this encounter [facility] note* Diagnosis 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 and other parts of nervous system [facility] 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 and other parts of nervous system documented in this encounter [facility] note* Diagnosis Thyroid cancer (HCC) Malignant neoplasm of thyroid gland documented in this encounter [facility] Summary Purpose Family History No Family History Records FoundNo Family History Records Found Advance Directives No Advanced Directives Records FoundDocuments on File Type Date Recorded Patient Solid Waste Analyst Expl anation Advance Directive(s) 04/29/2023 11:52 AM Documents on File Type Date Recorded Patient Solid Waste Analyst Expl anation Advance Directive(s) 04/29/2023 11:52 AM Reason for Referral Specialty Diagnoses / Procedures Referred By Grady perez Referred To Contact CT IMAGING Diagnoses Follicular neoplasm of thyroid Procedures CT NECK SOFT TISSUE W IVCON CT SOFT TISSUE NECK W/CONTRAST MATERIAL Del Hang Berman MD [address] [address] [address] [place] [address] Referral ID Status Reason Start Date Expiration Date Visits Requested Visits Authorized [id number] Pending Review Auto-Generat ed Referral 3 07/17/2024 1 1 Referral ID Status Reason Start Date Expiration Date V isits Requested Visits Authorized [id number] Closed Auto-Generate d Referral 06/18/2023 07/17/2024 1 1 Specialty Diagnoses / Procedures Referred By Grady perez Referred To Contact Diagnoses Thyroid cancer (HCC) Procedures REFER TO PACC - PRE ANESTHESIA CONSULTATION CLINIC OFFICE/OUTPATIENT [facility] 60-74 MINUTES Juan Jose Gutierrez MD [address] [place] [address] Referral ID Status Reason Start Date Expiration Date Visits Requested Visits Authorized [id number] Pending Review PCP Requested Referral 3 06/26/2024 1 1 Specialty Diagnoses / Procedures Referred By Contac t Referred To [facility] Diagnoses Thyroid cancer (HCC) Procedures ECG COMPLETE ECG ROUTINE ECG W/LEAST 12 LDS W/I&R Juan Jose Gutierrez MD [address] [place] [address] [facility] Vascular [place] [address] [place] [address] Referral ID Status Reason Start Date Expiration Date Visits Requested Visits Authorized [id number] Pending Review Auto-Generat ed Referral 3 06/26/2024 1 1 Additional Source Comments INFORMATION SOURCE (unrecogn ized section and content) DATE CREATED AUTHOR AUTHOR'S ORGANIZ ATION 07/19/2023 [facility] Source Comments (unrecognize d section and content) In the event this informatio n is protected by the Federal Confidentiality of Alcohol and Drug Abuse Patient Records regulations: The Federal rules restrict any use of the information to criminally investigate or prosecute any alcohol or drug abuse patient.[facility] the event this information is protected by the Federal Confidentiality of Alcohol and Drug Abuse Patient Records regulations: The Federal rules restrict any use of the information to criminally investigate or prosecute any alcohol or drug abuse patient.[facility] the event this information is protected by the Federal Confidentiality of Alcohol and Drug Abuse Patient Records regulations: The Federal rules restrict any use of the information to criminally investigate or prosecute any alcohol or drug abuse patient.[facility] the event this information is protected by the Federal Confidentiality of Alcohol and Drug Abuse Patient Records regulations: The Federal rules restrict any use of the information to criminally investigate or prosecute any alcohol or drug abuse patient.[facility] the event this information is protected by the Federal Confidentiality of Alcohol and Drug Abuse Patient Records regulations: The Federal rules restrict any use of the information to criminally investigate or prosecute any alcohol or drug abuse patient.[facility] the event this information is protected by the Federal Confidentiality of Alcohol and Drug Abuse Patient Records regulations: The Federal rules restrict any use of the information to criminally investigate or prosecute any alcohol or drug abuse patient.[facility] the event this information is protected by the Federal Confidentiality of Alcohol and Drug Abuse Patient Records regulations: The Federal rules restrict any use of the information to criminally investigate or prosecute any alcohol or drug abuse patient.[facility] the event this information is protected by the Federal Confidentiality of Alcohol and Drug Abuse Patient Records regulations: The Federal rules restrict any use of the information to criminally investigate or prosecute any alcohol or drug abuse patient.[facility] the event this information is protected by the Federal Confidentiality of Alcohol and Drug Abuse Patient Records regulations: The Federal rules restrict any use of the information to criminally investigate or prosecute any alcohol or drug abuse patient.[facility] Reason for Visit (unrecogniz ed section and content) Reason Comments Biopsy Request Reason Comments Patient Question Reason Comments Consult Specialty Diagnoses / Procedures Referred By Contac t Referred To Contact Endocrinology / ENDOCRINOLOGY Diagnoses Thyroid Cancer Procedures NEW SHANA Petros Spicer MD [address] [address] Hang Martinez MD [address] [address] Referral ID Status Reason Start Date Expiration Date V isits Requested Visits Authorized [id number] Outside PCP 06/07/2023 08/06/2023 1 1 Reason Comments Patient Update Reason Comments Radiology CT Specialty Diagnoses / Procedures Referred By Grady perez Referred To Contact CT IMAGING Diagnoses Follicular neoplasm of thyroid Procedures CT NECK SOFT TISSUE W IVCON CT SOFT TISSUE NECK W/CONTRAST MATERIAL Hang Martinez MD [address] [facility] [address] [place] [address] [place] [address] Referral ID Status Reason Start Date Expiration Date V isits Requested Visits Authorized [id number] Closed Auto-Generate d Referral 06/18/2023 07/17/2024 1 [...] HIGH MDM 40-54 MIN Rosa Silva MD [address] [place] [address] Juan Jose Gutierrez MD [address] [facility] [address] [place], [place] [id number] Referral ID Status Reason Start Date Expiration Date Visits Requested Visits Authorized [id number] Authorized PCP Requested Referral 3 06/11/2024 99 99 Care Teams (unrecognized sec tion and content) Communications Controller Relationship Specialty Start Date End Date Rosa Silva MD [address] [place] [address] PCP - General Gerontology 05/02/23 Communications Controller Relationship Specialty Start Date End Date Rosa Silva MD [address] [place] [address] PCP - General Gerontology 05/02/23 Communications Controller Relationship Specialty Start Date End Date Rosa Silva MD [address] [place] [address] PCP - General Gerontology 05/02/23 Communications Controller Relationship Specialty Start Date End Date Rosa Silva MD [address] [place] [address] PCP - General Gerontology 05/02/23 FOR RECORDS [...] BE BASED ON THE PRIMARY CLINICAL RECORDS. [facility] [employer] [facility]. provides no warranty or guarantee of the accuracy or completeness of information in this document.
[2023-07-30 08:28] LABS: Hematocrit 30.6 % (37-47); Hemoglobin 9.8 g/dL (12.0-15.0); Mean Corpuscular Hgb 27.3 pg (27.0-32.0); Mean Corpuscular Volume 85.2 fL (81-99); Mean Platelet Vol. 10.9 fl (6.2-12.0); Platelet Count 152 K/mm3 (150-450); RBC Distribution Width CV 15.5 % (11.6-14.6); RBC Distribution Width SD 46.5 fl (35.1-43.9); Red Blood Count 3.59 M/mm3 (4.2-5.4); White Blood Count 4.9 K/mm3 (4.4-11.0)
[2023-07-30 09:10] LABS: Anion Gap 5 (5-15); BUN 18 mg/dL (7-18); BUN/Creat Ratio 25.1 RATIO (10-20); Calcium,Total 9.4 mg/dL (8.5-10.1); Chloride 111 mmol/L (98-107); Creatinine, Serum 0.72 mg/dL (0.55-1.02); EST Glomerular Filtration Rate 84 mL/min (>60); Est Glom Filt Rate - Afr Amer 102 mL/min (>60); Glucose 127 mg/dL (74-106); Magnesium 1.9 mg/dL (1.6-2.6); Potassium 3.6 mmol/L (3.5-5.1); Sodium Level 143 mmol/L (136-145)
== END ==
LOC: OLS.SW 05:00
PROVIDERS: PCP Internal Medicine; Visit Provider Internal Medicine
DX: Z01.818 Encounter for other preprocedural examination (principal)
CPT/HCPCS: 36415; 80048; 83735; 85027

== ENCOUNTER → 2023-08-03 | Outpatient (REF) | payer MEDICARE, MEDICAID, SELFPAY ==
--- OUTSIDE RECORDS SUMMARY | 2023-08-03 05:46 | XMS RPT_ITS | CCD ---
Author Name Unknown Address [address] [facility] [address] [place] [address] Organization [facility] Care Team Providers Care Shortage Worker Name Role Phone Unavailable Primary Care Provider UnavailRosa Jones MD Primary Care Provider Rosa Silva MD Primary Care Provider [phone] JUAN JOSE GUTIERREZ Attending Unavailable SARAH HUBBARD Referring Unavailable GUDLA, ROSA D Primary Care Unavailable HANG MARTINEZ Referring Unavai lable GUDLA, ROSA D Primary Care Unavailable DEL HANG RENO Referring Unavai lable GUDLA, ROSA D Primary Care Unavailable HANG MARTINEZ Attending PETROS Cuellar Referring Unavailable GUDLA, ROSA D Primary Care Unavailable SARAH HUBBARD Referring Unavailable BATSHEVA AZAR Referring Unavailable SARAH HUBBARD Attending Unavailable JUAN JOSE GUTIERREZ Referring Unavailable GUDLA, ROSA D Primary Care Unavailable JUAN JOSE GUTIERREZ Referring Unavailable GUDLA, ROSA D Primary Care Unavailable CELIA TAVERAS Attending Unavailable GUDLA, ROSA D Primary Care Unavailable CELIA TAVERAS Admitting Unavailable Allergies Allergy Classification Reported Allergen(s) Allergy Type Date of Onset Reaction(s) Facility (10 sources) Latex; Translations: [LATEX, NATURAL RUBBER] Drug Allergy 4 Itching [facility] Work Phone: (10 sources) Penicillins; Translations: [PENICILLINS] Propensity to adverse reactions 7 Anaphylaxis [facility] Work Phone: (10 sources) Salicylate product; Translations: [SALICYLATES] Propensity to adverse reactions 7 Hives [facility] Work Phone: (10 sources) Sulfonamides (Antibiotic); Translations: [SULFA (SULFONAMIDE ANTIBIOTICS)] Propensity to adverse reactions 7 Anaphylaxis [facility] Work Phone: (9 sources) Aspirin; Translations: [ASPIRIN] Drug Allergy 1 Unknown [facility] Medications Completed/Discontinued Medications Medication Drug Class(es) [...] 157.5 cm Hang Martinez MD Work Phone: [facility] 06-07-2023 08:24-0500 Body weight 97.07 kg Hang Martinez MD Work Phone: [facility] 06-07-2023 08:24-0500 Diastolic blood pressure 53 mm[Hg] Hang Martinez MD Work Phone: [facility] 06-07-2023 08:24-0500 Heart rate 92 /min Hang Martinez MD Work Phone: [facility] 06-07-2023 08:24-0500 Systolic blood pressure 125 mm[Hg] Hang Martinez MD Work Phone: [facility] Encounters Encounter Date Encounter Type Care Provider Facility Start: 07-31-2023 End: 08-01-2023 ambulatory JUAN JOSE GUTIERREZ Facility:[facility] Start: 07-31-2023 [facility] JUAN JOSE GUTIERREZ Facility :[facility] Start: 06-27-2023 End: 06-27-[facility] Start: 06-27-2023 End: 06-27-2023 Patient encounter procedure Juan Jose Gutierrez MD Work Phone: Otolaryngology Procedures Date Procedure Procedure Detail Performing Clinician Start: 06-26-2023 Ct soft tissue neck w/contrast material Hang Martinez MD Work Phone: Start: 06-28-2005 Colonoscopy Sarah Hubbard MD Work Phone: Plan of Treatment Date Care Activity Detail Author Start: 06-07-2024 BP Controlled (<130/80) BP Controlle d (<130/80) [facility] Start: 06-27-2023 End: 09-26-2023 Basic metabolic 2000 panel - Serum or Plasma BASIC METABOLIC PNL Lab Routine Thyroid cancer (HCC) Expected: 06/27/2023, Expires: 09/26/2023 [facility] Work Phone: Immunizations Immunization Date Immunization Notes Care Provider Fa [facility] 06-21-2021 influenza virus vacc ine, unspecified formulation Sarah Hubbard MD Work Phone: [facility] 05-09-2018 influenza virus vacc ine, unspecified formulation Sarah Hubbard MD Work Phone: [facility] 05-13-2014 influenza, seasonal, injectable Sarah Hubbard MD Work Phone: [facility] 05-15-2013 influenza virus vacc ine, unspecified formulation Sarah Hubbard MD Work Phone: [facility] Work Phone: 11-08-2012 pneumococcal polysaccharide vaccine, 23 valent Sarah Hubbard MD Work Phone: [facility] 05-12-2012 influenza virus vacc ine, unspecified formulation Sarah Hubbard MD Work Phone: [facility] Work Phone: 05-16-2011 influenza virus vacc ine, unspecified formulation Sarah Hubbard MD Work Phone: [facility] Work Phone: 11-04-2008 tetanus and diphther ia toxoids, adsorbed, preservative free, for adult use (2 Lf of tetanus toxoid and 2 Lf of diphtheria toxoid) Sarah Hubbard MD Work Phone: [facility] Work Phone: 09-02-2008 influenza virus vacc ine, unspecified formulation Sarah Hubbard MD Work Phone: [facility] Work Phone: 06-26-2007 influenza virus vacc ine, unspecified formulation Sarah Hubbard MD Work Phone: [facility] Work Phone: 07-29-1994 pneumococcal polysaccharide vaccine, 23 valent Sarah Hubbard MD Work Phone: [facility] Work Phone: Payers Date Payer Category Payer Medicare AETNA MEDICARE A ETNA MEDICARE ASSURE HMO D SNP [id number] 2021-Present [phone] [address] [place] [address] Medicare [id number] 2021 Medicare [id number] 2019 Medicaid [employer] [facility] [id number] 2019-Present [phone] [address] [place] [address] Medicaid [id number] 2019 Medicaid [id number] Social History Date Type Detail Facility Start: 07-05-2011 [facility] Work Phone: Start: 07-05-2011 Tobacco use and exposure Smokeless tobacco non-user [facility] Work Phone: Start: 03-14-2022 End: 06-27-2023 Alcohol intake Current non-drinker of alcohol (finding) [facility] Start: 03-22-2016 End: 04-25-2023 History of Social function [facility] Start: 03-22-2016 End: 04-25-2023 Tobacco use panel [facility] National Score (1-100), lower number is lower risk Not on file [facility] Start: 12-26-2006 Alcohol Comment rare [facility] Start: 1950 Sex Assigned At Not on file [facility] Start: 1950 Sex Assigned At Female [facility] Start: 06-19-2023 Gender identity Identifies as female gender (finding) [facility] Medical Equipment Procedure Code Equipment Code Equipment Origin al Text Equipment Identifier Dates Stent Uret 7fr 2 4cm W/O Gw Inl - [id number] Start: 01-13-2013 TEST BLOOD SUGAR 4 TIMES PER DAY. DX: 250.00. INSULIN DEP: YES. AM-MED Diabetic Supplies. Www[employer]ITC Start: 01-07-2014 Clinical Notes 08-23-2011 to 06-27-2023 Telephone Encounter - Liz Gomez RN - 06/27/2023 4:34 PM Juan Jose Rivas MD - 06/27/2023 2:50 PM Cate Estrada - 06/27/2023 2:29 PM EST Note Date & Type Note Facility 06-27-2023 Note HNO ID: [id number] Author: Juan Jose Gutierrez MD Service: ? Author Type: Physician Type: Progress Notes Filed: 06/27/2023 4:53 PM Note Text: [place] [facility] Consult This consult was requested by Sarah Hubbard for an opinion regarding thyroid mass. My final recommendations will be communicated to the requesting provider by way of shared EMR or letter via the [place] mail. HPI: Sandy Bal is a 73 year old female, non-smoker, with history of AFIB, sleep apnea, low platelets, HTN and HLD. She saw Dr. Paiz in February because she noticed neck mass [...] HR BEFORE MEAL. 30 capsule 11 Insulin Ayer, Disposable, (PEN NEEDLE) 29 x 1/2 ndle Use daily for insulin as directed. 100 Each 1 sitaGLIPtin (JANUVI (more content not included)... [facility] 06-27-2023 Miscellaneous Notes AMBULATORY PATIENT EDUCATION NOTE [...] In Department: OTOLARYNGOLOGY documented in this encounter [facility] 06-27-2023 Note HNO ID: [id number] Author: Cate Negrete Service: ? Author Type: ? Type: Progress Notes Filed: 06/27/2023 4:53 PM Note Text: Tobacco Use: Never Was smoking cessation packet given? N/A - Patient is a non-smoker or quit >1 year ago. Was a referral initiated?N/A Patient is a non-smoker [facility] 06-27-2023 History of Present illness Narrative Palmer [...] platelets, HTN and HLD. She saw Dr. Paiz in February because she noticed neck mass [...] HR BEFORE MEAL. 30 capsule 11 Insulin Ayer, Disposable, (PEN NEEDLE) 29 x 1/2 ndle [...] PER DAY. DX: 250.00. INSULIN DEP: YES. AM-1[employer] Diabetic Supp[employer]. Www.ITC 0 diltiazem CD (CARTIA XT) 180 mg [...] (FLONASE) 50 mcg/actuation nasal spray Use 1 [place] in each nostril daily at bedtime. 1 [...] (3 mL) Inject subcutaneously. oxycodone HCl,terephth/aspirin (OXYCODONE TRD-HSZXZZTUR-MXN ORAL) Take 10 mg by mouth every [...] qDay, # 60 cap(s), 0 Refill(s), Pharmacy: [facility] levoFLOXacin (LEVAQUIN) 750 mg tablet NOVOLOG [...] platelets, HTN and HLD. She saw Dr. Paiz in February because she noticed neck mass [...] lobe may be necessary. I informed Ms. Shonk of the risks of surgery which include [...] Decision Making Level: 1 - N/A MD Odette Koibe Attestation: By signing my name below, I, Sharon Hill, attest that this documentation has been prepared under the direction and in the presence of Juan Jose Gutierrez MD. Electronically Signed: chuckie Watt, June 27, 2023 2:51 PM June [...] is a non-smoker documented in this encounter [facility] 06-26-2023 Note HNO ID: [id number] Author: Blossom Trejo RT(R) Service: ? Author Type: Bunghole Borer Type: Progress Notes Filed: 06/26/2023 4:18 PM [...] DATE: June 26, 2023 TIME: 4:17 PM [facility] 06-26-2023 History of Present illness Narrative Radiology [...] TIME: 4:17 PM documented in this encounter [facility] 06-18-2023 Miscellaneous Notes I called Pt and told her she may schedule the CT neck and have her a number to call. I also asked her to not take metformin the day before the CT scan and not restarting until we document her kidney function is good. Hang Martinez M.D. Endocrinology & Metabolism [place] documented in this encounter [facility] 06-10-2023 Miscellaneous Notes Attempted to reach patient to discuss plan of care going forward from Dr. Hubbard. Will attempt to reach patient again. NISHA Easley Endocrine Surgery documented in this encounter [facility] 06-07-2023 Note HNO ID: [id number] Author: Hang Martinez MD Service: ? Author Type: Physician Type: Progress Notes Filed: 06/10/2023 11:09 AM Note Text: ENDOCRINOLOGY REASON FOR CONSULTATION: Thyroid cancer HISTORY Sandy Bal is a 73 year old female who comes in here for evaluation of thyroid cancer. The patient is referred by Petros Paiz. My recommendations will be sent to the [...] limb movement dis (more content not included)... [facility] 06-07-2023 History of Present illness Narrative Images from the original note were not included. ENDOCRINOLOGY REASON FOR CONSULTATION: Thyroid cancer HISTORY Sandy Bal is a 73 year old female who comes in here for evaluation of thyroid cancer. The patient is referred by Petros Paiz. My recommendations will be sent to the [...] for fever (specify temp.). oxycodone HCl,terephth/aspirin (OXYCODONE ASC-PSTLSXFCW-MTU ORAL) Take 10 mg by mouth every [...] mg by mouth daily with breakfast.) Insulin Ayer, Disposable, (PEN NEEDLE) 29 x 1/2 ndle Use daily for insulin as directed. diltiazem CD (CARTIA XT) 180 mg 24 hr capsule Take 2 capsules by mouth once daily. pregabalin (LYRICA) 100 mg capsule Take 1 capsule by mouth three times daily. fluticasone (FLONASE) 50 mcg/actuation nasal spray Use 1 [place] in each nostril daily at bedtime. ALBUTEROL [...] qDay, # 60 cap(s), 0 Refill(s), Pharmacy: [facility] levoFLOXacin (LEVAQUIN) 750 mg tablet ipratropium-albuterol [...] PER DAY. DX: 250.00. INSULIN DEP: YES. -1[employer]. Www.ITC pravastatin 80 mg tablet Take 1 tablet [...] which included preparing to see the patient, lrxj-ik-[id number] patient care, completing clinical documentation, obtaining and/or reviewing separately obtained history, performing a medically appropriate examination, counseling and educating the patient/family/caregiver, and communicating with other HCPs (not separately reported). MD josefa Santana documented in this encounter [facility] 05-01-2023 Miscellaneous Notes Susan Estrada (Daughter) called in regarding their mother. Susan would like to know more information regarding her mothers' recent visit on 04/25. She also wanted to know more information on the appointment that she's scheduled for on 06/07 Good call back: [phone] documented in this encounter [facility] 04-26-2023 Miscellaneous Notes Please note, patient will hold Xarelto on 04/27/23 in anticipation of biopsy early next week. STAFF-INITIATED RADIOLOGY BIOPSY / ASPIRATION / DRAIN REQUEST FORM Date: April 26, 2023 Time: 4:05 PM PATIENT CONTACT INFORMATION: [phone] SCHEDULING: [facility] (Abdominal / Thoracic [...] OF THE REQUEST: US Date: 04/25/23 IMAGING: [facility] (If the imaging was obtained outside the [facility] system, PLEASE upload for review prior to approval.) Note to all persons requesting biopsies: All biopsy requests will be scheduled as quickly as possible, based on the clinical urgency, availability of appointment times, the need to hold anti-thrombolytic therapy (aspirin and other blood thinners) and the patient s schedule, including the need for an available route delivery service driver. If a percutaneous biopsy or drainage is not felt to be safe or an alternative method for establishing a diagnosis is possible, this will be discussed directly with the requesting physician. documented in this encounter [facility] 04-25-2023 Note HNO ID: [id number] Author: Sarah Hubbard MD Service: ? Author Type: Physician Type: Progress Notes Filed: 04/25/2023 1:09 PM Note Text: Sarah Hubbard M.D. Department of Endocrine Surgery Endocrinology [place] [address] ENDOCRINE SURGERY NEW PATIENT VISIT NAME: Sandy Bal CLINIC NO: [id number] : 1950 History of Present Illness: Sandy Bal is a 73 year old female referred by Dr. Petros Paiz for evaluation of left-sided goiter with multiple nodules, largest 4 cm. Patient reports onset of dysphagia and hoarseness in 01/2023. Around the same time she noticed a left neck mass. She believes the mass has increased in size over the past 2 months. FNA of 3 separate left thyroid nodules - [place] 3 and 4. No molecular testing was [...] CAPSULE DAILY 1/2 HR BEFORE MEAL. Insulin Ayer, Disposable, (PEN NEEDLE) 29 x 1/2 ndle [...] 250.00. INSULIN DEP: YES. AM-MED Diabetic Supplies. Www[employer] diltiazem CD (CARTIA XT) 180 mg 24 hr capsule Take 2 capsules by mouth once daily. prega (more content not included)... [facility] 04-16-2023 Miscellaneous Notes 04/17/2023 - [facility] for Anika Cedeno Appointment 04/25 [facility] - 02/25/23 Thyroid US - 03/01/23 documented in this encounter [facility] 06-20-2021 Note . MICRO - Microbiology [...] Locations *1: This test was performed at: [address], [address] [place] [address] ([place]) 06-18-2021 Note . MICRO - Microbiology PROCEDURE: [...] Locations *1: This test was performed at: [address], [address] [place] [address] ([place]) 06-16-2021 Note ORIGINAL PROCEDURE: 1. PICC placement with fluoroscopy and ultrasound guidance DEPUTY PROBATION OFFICER: Sheri aMldonado PA-C CLINICAL STATEMENT: Left great toe osteomyelitis [...] Sign Date: 06/16/2021 4:14:24 PM Ordering Provider: [facility] ([place]) 06-16-2021 Note . MICRO - Microbiology PROCEDURE: [...] Locations *1: This test was performed at: [address], [facility] ([place]) 06-15-2021 Note . MICRO - Microbiology PROCEDURE: [...] Locations *1: This test was performed at: [facility], [address] [place] [address], [address] , [facility] ([place]) documented as of this encounter (statuses as of 04/17/2023) [facility] History of Past illness Narrative* Problem [...] of this encounter (statuses as of 04/27/2023) [facility] History of Past illness Narrative* Problem [...] of this encounter (statuses as of 05/04/2023) [facility] History of Past illness Narrative* Problem [...] of this encounter (statuses as of 06/10/2023) [facility] History of Past illness Narrative* Problem [...] of this encounter (statuses as of 06/11/2023) [facility] History of Past illness Narrative* Problem [...] of this encounter (statuses as of 06/19/2023) [facility] History of Past illness Narrative* Problem [...] of this encounter (statuses as of 06/27/2023) [facility] History of Past illness Narrative* Problem [...] of this encounter (statuses as of 06/28/2023) [facility] History of Past illness Narrative* Problem [...] of this encounter (statuses as of 06/28/2023) [facility] [place] [facility] Diagnosis Neck mass- Primary Swelling, mass, or lump in head and neck [facility] [place] [facility] Diagnosis 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 and other parts of nervous system [facility] [place] [facility] Diagnosis 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 and other parts of nervous system documented [facility] [place] [facility]* 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 and other parts of nervous system [facility] [place] [facility]* Diagnosis Thyroid cancer (HCC) Malignant neoplasm of thyroid gland documented in this encounter [facility] Summary Purpose Family History No Family History Records FoundNo Family History Records Found Advance Directives No Advanced Directives Records FoundDocuments on File Type Date Recorded Patient Home Health Scheduler Expl anation Advance Directive(s) 04/29/2023 11:52 AM Documents on File Type Date Recorded Patient Home Health Scheduler Expl anation Advance Directive(s) 04/29/2023 11:52 AM Reason for Referral Specialty Diagnoses / Procedures Referred By Grady t Referred To Contact CT IMAGING Diagnoses Follicular neoplasm of thyroid Procedures CT NECK SOFT TISSUE W IVCON CT SOFT TISSUE NECK W/CONTRAST MATERIAL Hang Martinez MD [address] [facility] [address] [place] [address] [place] [address] Referral ID Status Reason Start Date Expiration Date Visits Requested Visits Authorized [id number] Pending Review Auto-Generat ed Referral 07/17/2024 1 1 Referral ID Status Reason Start Date Expiration Date V isits Requested Visits Authorized [id number] Closed Auto-Generate d Referral 06/18/2023 07/17/2024 1 1 Specialty Diagnoses / Procedures Referred By Contac t Referred To Contact Diagnoses Thyroid cancer (HCC) Procedures REFER TO PACC - PRE ANESTHESIA CONSULTATION CLINIC OFFICE/OUTPATIENT NEW HIGH MDM 60-74 MINUTES Juan Jose Gutierrez MD [address] [address] Referral ID Status Reason Start Date Expiration Date Visits Requested Visits Authorized [id number] Pending Review PCP Requested Referral 3 06/26/2024 1 1 Specialty Diagnoses / Procedures Referred By Contac t [facility]erred To [facility] Diagnoses Thyroid cancer (HCC) Procedures ECG COMPLETE ECG ROUTINE ECG W/LEAST 12 LDS W/I&R Juan Jose Gutierrez MD [email or web address] [address] [facility] [place] [address] [email or web address] [address] Referral ID Status Reason Start Date Expiration Date Visits Requested Visits Authorized [id number] Pending Review Auto-Generat ed Referral 3 06/26/2024 1 1 Additional Source Comments INFORMATION SOURCE (unrecogn ized section and content) DATE CREATED AUTHOR AUTHOR'S ORGANIZ ATION 08/02/2023 [facility] Source Comments (unrecognize d section and content) In the event this informatio n is protected by the Federal Confidentiality of Alcohol and Drug Abuse Patient Records regulations: The Federal rules restrict any use of the information to criminally investigate or prosecute any alcohol or drug abuse patient.[facility] the event this information is protected by the Federal Confidentiality of Alcohol and Drug Abuse Patient Records regulations: The Federal rules restrict any use of the information to criminally investigate or prosecute any alcohol or drug abuse patient.[facility] the event this information is protected by the Federal Confidentiality of Alcohol and Drug Abuse Patient Records regulations: The Federal rules restrict any use of the information to criminally investigate or prosecute any alcohol or drug abuse patient.[facility] the event this information is protected by the Federal Confidentiality of Alcohol and Drug Abuse Patient Records regulations: The Federal rules restrict any use of the information to criminally investigate or prosecute any alcohol or drug abuse patient.[facility] the event this information is protected by the Federal Confidentiality of Alcohol and Drug Abuse Patient Records regulations: The Federal rules restrict any use of the information to criminally investigate or prosecute any alcohol or drug abuse patient.[facility] the event this information is protected by the Federal Confidentiality of Alcohol and Drug Abuse Patient Records regulations: The Federal rules restrict any use of the information to criminally investigate or prosecute any alcohol or drug abuse patient.[facility] Hospital[facility] the event this information is protected by the Federal Confidentiality of Alcohol and Drug Abuse Patient Records regulations: The Federal rules restrict any use of the information to criminally investigate or prosecute any alcohol or drug abuse patient.[facility] Hospital[facility] the event this information is protected by the Federal Confidentiality of Alcohol and Drug Abuse Patient Records regulations: The Federal rules restrict any use of the information to criminally investigate or prosecute any alcohol or drug abuse patient.[facility] Hospital[facility] the event this information is protected by the Federal Confidentiality of Alcohol and Drug Abuse Patient Records regulations: The Federal rules restrict any use of the information to criminally investigate or prosecute any alcohol or drug abuse patient.[facility] Reason for Visit (unrecogniz ed section and content) Reason Comments Biopsy Request Reason Comments Patient Question Reason Comments Consult Specialty Diagnoses / Procedures Referred By Grady t Referred To Contact Endocrinology / ENDOCRINOLOGY Diagnoses Thyroid Cancer Procedures NEW SHANAPetros Atkins MD [address] [place] [address] Hang Martinez MD [address] [address] Referral ID Status Reason Start Date Expiration Date V isits Requested Visits Authorized [id number] Outside PCP 06/07/2023 08/06/2023 1 1 Reason Comments Patient Update Reason Comments Radiology CT Specialty Diagnoses / Procedures Referred By Grady t Referred To Contact CT IMAGING Diagnoses Follicular neoplasm of thyroid Procedures CT NECK SOFT TISSUE W IVCON CT SOFT TISSUE NECK W/CONTRAST MATERIAL Hang Martinez MD [address] [address] [place] [address] Referral ID Status Reason Start Date Expiration Date V isits Requested Visits Authorized [id number] Closed Auto-Generate d Referral 06/18/2023 07/17/2024 1 [...] Specialty Diagnoses / Procedures Referred By Grady t Referred To Contact Ent - [facility]ol[facility]ology / [facility] Diagnoses Thyroid cancer (HCC) Procedures CONSULT TO ENT OFFICE/OUTPATIENT NEW HIGH MDM 60-74 MINUTES OFFICE/OUTPATIENT ESTABLISHED HIGH MDM 40-54 MIN Rosa Silva MD [address] [place] [address] Juan Jose Gutierrez MD [address] [place] [address] Referral ID Status Reason Start Date Expiration Date Visits Requested Visits Authorized [id number] Authorized PCP Requested Referral 3 06/11/2024 99 99 Care Teams (unrecognized sec tion and content) Shortage Worker Relationship Specialty Start Date End Date oRsa Silva MD [address] [place] [address] PCP - General Gerontology 05/02/23 Shortage Worker Relationship Specialty Start Date End Date Rosa Silva MD [address] [place] [address] PCP - General Gerontology 05/02/23 Shortage Worker Relationship Specialty Start Date End Date Rosa Silva MD [address] [place] [address] PCP - General Gerontology 05/02/23 Shortage Worker Relationship Specialty Start Date End Date Rosa Silva MD [address] [place] [address] PCP - General Gerontology 05/02/23 FOR RECORDS [...] BE BASED ON THE PRIMARY CLINICAL RECORDS. [facility] [employer] [facility]. provides no warranty or guarantee of the accuracy or completeness of information in this document.
[2023-08-03 06:02] LABS: Troponin-I HS 10 pg/mL (3.0-54.0)
== END ==
LOC: OLS.SW 05:00
PROVIDERS: PCP Internal Medicine; Visit Provider Internal Medicine
DX: I48.0 Paroxysmal atrial fibrillation (principal)
CPT/HCPCS: 84484

== ENCOUNTER → 2023-08-06 | Outpatient (REF) | payer MEDICARE, MEDICAID, SELFPAY ==
--- OUTSIDE RECORDS SUMMARY | 2023-08-06 05:03 | XMS RPT_ITS | CCD ---
Author Name Unknown Address [address] [facility] [address] [place] [address] Organization [facility] Care Team Providers Care Cloak Room Attendant Name Role Phone Unavailable Primary Care Provider UnavailRosa Jones MD Primary Care Provider Rosa Silva MD Primary Care Provider [phone] JUAN JOSE GUTIERREZ Attending Unavailable SARAH HUBBARD [...] [LATEX, NATURAL RUBBER] Drug Allergy 4 Itching [facility] Work Phone: (10 sources) Penicillins; Translations: [PENICILLINS] Propensity to adverse reactions 7 Anaphylaxis [facility] Work Phone: (10 sources) Salicylate product; Translations: [SALICYLATES] Propensity to adverse reactions 7 Hives [facility] Work Phone: (10 sources) Sulfonamides (Antibiotic); Translations: [SULFA (SULFONAMIDE ANTIBIOTICS)] Propensity to adverse reactions 7 Anaphylaxis [facility] Work Phone: (9 sources) Aspirin; Translations: [ASPIRIN] Drug Allergy 1 Unknown [facility] Medications Completed/Discontinued Medications Medication Drug Class(es) Dates Sig (Normalized) Sig (Original) acetaminophen 325 mg oral tablet (6 sources) take 2 tablets by mouth every four hours as needed acetaminophen (TYLENOL) 325 mg tablet Take 650 mg by mouth every 4 hours as needed for fever (specify temp.). 0 Active Problems Active Problems Problem Classification Problem Date Documented Da te Episodic/Chronic Anxiety disorders (1 source) Anxiety disorder, unspecified; Translations: [Anxiety and depression] Onset: 08-02-2023 Chronic Asthma (10 sources) Unspecified asthma, uncomplicated; Translations: [Asthma, unspecified type, unspecified] Onset: 12-26-2006 12-26-2006 Chronic Cancer of thyroid (2 sources) Malignant tumor of thyroid gland; Translations: [Malignant neoplasm of thyroid gland] Onset: 06-27-2023 06-27-2023 Chronic Cardiac dysrhythmias (1 source) Unspecified atrial fibrillation; Translations: [Atrial fibrillation, unspecified type (HCC)] Onset: 08-02-2023 Chronic Deficiency and other anemia (1 source) Iron deficiency anemia, unspecified; Translations: [Iron deficiency anemia, unspecified iron deficiency anemia type] Onset: 08-02-2023 Episodic Diabetes mellitus with complications (10 sources) Type 2 diabetes mellitus; Translations: [Type II or unspecified type diabetes mellitus without mention of complication, uncontrolled] Onset: 12-26-2006 02-02-2014 Chronic Disorders of lipid metabolism (9 sources) Hyperlipidemia; Translations: [Hyperlipidemia, unspecified] Onset: 07-01-2007 07-01-2007 Chronic Essential hypertension (10 sources) Benign essential hypertension; Translations: [Essential (primary) hypertension] Onset: 11-01-2006 11-01-2006 Chronic Genitourinary symptoms and ill-defined conditions (19 sources) Urge incontinence of urine; Translations: [Urge incontinence] Onset: 07-05-2011 07-05-2011 Chronic Mood disorders (9 sources) Depressive disorder; Translations: [Other specified depressive episodes] Onset: 12-26-2006 12-26-2006 Chronic Mood disorders (1 source) Mood disorders; Translations: [Anxiety and depression] Onset: 08-02-2023 Neoplasms of unspecified nature or uncertain behavior (4 sources) Follicular neoplasm of thyroid; Translations: [Neoplasm of unspecified behavior of endocrine glands and other parts of nervous system] Onset: 06-26-2023 06-10-2023 Episodic Noninfectious gastroenteritis (1 source) Collagenous colitis; Translations: [Collagenous colitis] Onset: 08-02-2023 Chronic Nutritional deficiencies (9 sources) Vitamin D deficiency; Translations: [Vitamin D deficiency, unspecified] Onset: 07-02-2007 07-02-2007 Chronic Osteoarthritis (9 sources) Degenerative joint disease involving multiple joints; Translations: [Polyosteoarthritis , unspecified] Onset: 12-26-2006 12-26-2006 Chronic Osteoporosis (10 sources) Osteoporosis; Translations: [Age-related osteoporosis without current pathological fracture] Onset: 02-12-2013 02-12-2013 Chronic Other aftercare (1 source) skilled nursing (current) use of insulin; Translations: [Type 2 diabetes mellitus with diabetic polyneuropathy, with long-term current use of insulin (HCC)] Onset: 08-02-2023 Episodic Other connective tissue disease (1 source) Fibromyalgia; Translations: [Fibromyalgia] Onset: 08-02-2023 Episodic Other nervous system disorders (9 sources) Critical [...] Translations: [Chronic rhinitis] Onset: 12-26-2006 12-26-2006 Chronic Phlebitis; thrombophlebitis and thromboembolism (1 source) Personal history of other venous thrombosis and embolism; Translations: [History of DVT in adulthood] Onset: 08-02-2023 Episodic Residual codes; unclassified (9 sources) Obstructive sleep apnea syndrome; Translations: [Obstructive sleep apnea (adult) (pediatric)] Onset: 11-01-2006 07-24-2021 Chronic Residual codes; unclassified (9 sources) Periodic limb movement disorder; Translations: [Periodic limb movement disorder] Onset: 11-01-2006 11-01-2006 Chronic Residual codes; unclassified (1 source) Obstructive sleep apnea (adult) (pediatric); Translations: [RILEY on CPAP] Onset: 07-24-2021 Chronic Residual codes; unclassified (1 source) Periodic limb movement disorder; Translations: [Periodic limb movement disorder] Onset: 11-01-2006 Chronic Thyroid disorders (2 sources) Nontoxic [...] insufficiency (chronic) (peripheral)] Onset: 07-05-2011 07-05-2011 Episodic Other diseases of veins and lymphatics (1 source) Venous insufficiency (chronic) (peripheral); Translations: [Venous insufficiency] Onset: 07-05-2011 Episodic Spondylosis; intervertebral disc disorders; other back problems (9 sources) Low back pain; Translations: [Lumbago] Onset: 12-26-2006 07-24-2021 Episodic Results Test Name Value Interpretation Reference Range Facil ity Vital Signs Date Time Vital Sign Value Performing Clinician Chase bustamante 06-07-2023 08:24-0500 Body height 157.5 cm Hang Martinez MD Work Phone: [facility] 06-07-2023 08:24-0500 Body weight 97.07 kg Hang Martinez MD Work Phone: [facility] 06-07-2023 08:24-0500 Diastolic blood pressure 53 mm[Hg] Hang Martinez MD Work Phone: [facility] 06-07-2023 08:24-0500 Heart rate 92 /min Hang Martinez MD Work Phone: [facility] 06-07-2023 08:24-0500 Systolic blood pressure 125 mm[Hg] Hang Martinez MD Work Phone: [facility] Encounters Encounter Date Encounter Type Care Provider Facility Start: 07-31-2023 [facility] Start: 07-31-2023 End: 08-01-[facility] Start: 07-31-2023 Encounter for other preprocedural examination JUAN JOSE GUTIERREZ [facility] Start: 06-27-2023 End: 06-27-2023 [facility] Start: 06-27-2023 End: 06-27-2023 Patient encounter procedure Juan Jose Gutierrez MD Work Phone: Otolaryngology Procedures Date Procedure Procedure Detail Performing Clinician Start: 06-26-2023 Ct soft tissue neck w/contrast material Hang Martinez MD Work Phone: Start: 06-28-2005 Colonoscopy Sarah Hubbard MD Work Phone: Plan of Treatment Date Care Activity Detail Author Start: 06-07-2024 BP Controlled (<130/80) BP Controlle d (<130/80) [facility] Start: 06-27-2023 End: 09-26-2023 Basic metabolic 2000 panel - Serum or Plasma BASIC METABOLIC PNL Lab Routine Thyroid cancer (HCC) Expected: 06/27/2023, Expires: 09/26/2023 [facility] Work Phone: Immunizations Immunization Date Immunization Notes Care Provider Fa almita 06-21-2021 influenza virus vacc ine, unspecified formulation Sarah Hubbard MD Work Phone: [facility] 05-09-2018 influenza virus vacc ine, unspecified formulation Sarah Hubbard MD Work Phone: [facility] 05-13-2014 influenza, seasonal, injectable Sarah Hubbard MD Work Phone: [facility] 05-15-2013 influenza virus vacc ine, unspecified formulation Sarah Hubbard MD Work Phone: [facility] Work Phone: 11-08-2012 pneumococcal polysaccharide vaccine, 23 valent Sarah Hubbard MD Work Phone: [facility] 05-12-2012 influenza virus vacc ine, unspecified formulation Sarah Hubbard MD Work Phone: [facility] Work Phone: 05-16-2011 influenza virus vacc ine, unspecified formulation Sarah Hubbard MD Work Phone: [facility] Work Phone: 11-04-2008 tetanus and diphther ia toxoids, adsorbed, preservative free, for adult use (2 Lf of tetanus toxoid and 2 Lf of diphtheria toxoid) Sarah Hubbard MD Work Phone: [facility] Work Phone: 09-02-2008 influenza virus vacc ine, unspecified formulation Sarah Hubbard MD Work Phone: [facility] Work Phone: 06-26-2007 influenza virus vacc ine, unspecified formulation Sarah Hubbard MD Work Phone: [facility] Work Phone: 07-29-1994 pneumococcal polysaccharide vaccine, 23 valent Sarah Hubbard MD Work Phone: [facility] Work Phone: Payers Date Payer Category Payer Medicare AETNA MEDICARE A ETNA MEDICARE ASSURE HMO D SNP [id number] 2021-Present [phone] [address] [place] [address] Medicare [id number] 2021 Medicare [id number] 2019 Medicaid [employer] A[employer] MEDICAID [id number] 2019-Present [phone] [address] [place] [address] Medicaid [id number] 2019 Medicaid [id number] Social History Date Type Detail Facility Start: 07-05-2011 Tobacco smoking stat [facility] Never smoked tobacco [facility] Work Phone: Start: 07-05-2011 Tobacco use and exposure Smokeless tobacco non-user [facility] Work Phone: Start: 03-14-2022 End: 06-27-2023 Alcohol intake Current non-drinker of alcohol (finding) [facility] Start: 03-22-2016 End: 04-25-2023 History of Social function [facility] Start: 03-22-2016 End: 04-25-2023 Tobacco use panel [facility] National Score (1-100), lower number is lower risk Not on file [facility] Start: 12-26-2006 Alcohol Comment rare [facility] Start: 1950 Sex Assigned At Not on file [facility] Start: 1950 [facility] Start: 06-19-2023 Gender identity Identifies as female gender (finding) [facility] Medical Equipment Procedure Code Equipment Code Equipment Origin al Text Equipment Identifier Dates Stent Uret 7fr 2 4cm W/O Gw Inl - [id number] Start: 01-13-2013 TEST BLOOD SUGAR 4 TIMES PER DAY. DX: 250.00. INSULIN DEP: YES. AM-MED Diabetic Supplies. [employer] Start: 01-07-2014 Clinical Notes 08-23-2011 to 06-27-2023 Telephone Encounter - Liz Gomez RN - 06/27/2023 4:34 PM ESTSJuan Jose roman MD - 06/27/2023 2:50 PM NatalieLeslieh - 06/27/2023 2:29 PM EST Note Date & Type Note Facility 06-27-2023 Note HNO ID: [id number] Author: Juan Jose Gutierrez MD Service: ? Author Type: Physician Type: Progress Notes Filed: 06/27/2023 4:53 PM Note Text: [place] Consult This consult was requested by [...] HR BEFORE MEAL. 30 capsule 11 Insulin [place], Disposable, (PEN NEEDLE) 29 x 1/2 ndle Use daily for insulin as directed. 100 Each 1 sitaGLIPtin (JANUVI (more content not included)... [facility] 06-27-2023 Miscellaneous Notes AMBULATORY PATIENT EDUCATION NOTE [...] In Department: OTOLARYNGOLOGY documented in this encounter [facility] 06-27-2023 Note HNO ID: [id number] Author: Cate Negrete Service: ? Author Type: ? Type: Progress Notes Filed: 06/27/2023 4:53 PM Note Text: Tobacco Use: Never Was smoking cessation packet given? N/A - Patient is a non-smoker or quit >1 year ago. Was a referral initiated?N/A Patient is a non-smoker [facility] 06-27-2023 History of Present illness Narrative Palmer [...] TOTAL ABDOMINAL HYSTERECT W/WO RMVL TUBE OVARY 1988 Hysterectomy, CHICA, appy Current Outpatient Medications Medication [...] HR BEFORE MEAL. 30 capsule 11 Insulin [place], Disposable, (PEN NEEDLE) 29 x 1/2 ndle [...] PER DAY. DX: 250.00. INSULIN DEP: YES. AM-CardioMEMS Diabetic Supplies. Www[employer] 0 diltiazem CD (CARTIA XT) 180 mg [...] (FLONASE) 50 mcg/actuation nasal spray Use 1 [place] in each nostril daily at bedtime. 1 [...] (3 mL) Inject subcutaneously. oxycodone HCl,terephth/aspirin (OXYCODONE [id number] ORAL) Take 10 mg by mouth every [...] qDay, # 60 cap(s), 0 Refill(s), Pharmacy: [facility] levoFLOXacin (LEVAQUIN) 750 mg tablet NOVOLOG U-100 [...] Attestation: By signing my name below, I, Sharonhilda Hill, attest that this documentation has been [...] is a non-smoker documented in this encounter [facility] 06-26-2023 Note HNO ID: [id number] Author: Blossom Trejo RT(R) Service: ? Author Type: Pharmaceutical Physician Type: Progress Notes Filed: 06/26/2023 4:18 PM [...] DATE: June 26, 2023 TIME: 4:17 PM [facility] 06-26-2023 History of Present illness Narrative Radiology [...] TIME: 4:17 PM documented in this encounter [facility] 06-18-2023 Miscellaneous Notes I called Pt and told her she may schedule the CT neck and have her a number to call. I also asked her to not take metformin the day before the CT scan and not restarting until we document her kidney function is good. Hang Martinez M.D. Endocrinology & Metabolism [place] documented in this encounter [facility] 06-10-2023 Miscellaneous Notes Attempted to reach patient to discuss plan of care going forward from Dr. Hubbard. Will attempt to reach patient again. NISHA Easley Endocrine Surgery documented in this encounter [facility] 06-07-2023 Note HNO ID: [id number] Author: Hang Martinez MD Service: ? Author [...] limb movement dis (more content not included)... [facility] 06-07-2023 History of Present illness Narrative Images [...] Anemia, unspecified 12/26/2006 Bowel disease IBD Cellulitis 2011 lower legs Chronic rhinitis 12/26/2006 Critical [...] for fever (specify temp.). oxycodone HCl,terephth/aspirin (OXYCODONE [id number] ORAL) Take 10 mg by mouth every [...] mg by mouth daily with breakfast.) Insulin [place], Disposable, (PEN NEEDLE) 29 x 1/2 ndle Use daily for insulin as directed. diltiazem CD (CARTIA XT) 180 mg 24 hr capsule Take 2 capsules by mouth once daily. pregabalin (LYRICA) 100 mg capsule Take 1 capsule by mouth three times daily. fluticasone (FLONASE) 50 mcg/actuation nasal spray Use 1 [place] in each nostril daily at bedtime. ALBUTEROL [...] qDay, # 60 cap(s), 0 Refill(s), Pharmacy: [facility] levoFLOXacin (LEVAQUIN) 750 mg tablet ipratropium-albuterol (DUONEB) [...] PER DAY. DX: 250.00. INSULIN DEP: YES. AM-[employer]S Diabetic Supplies. Www.[employer] pravastatin 80 mg tablet Take 1 tablet [...] has already established care with Dr. Sarah uHbbard. Pt is agreeable to have thyroidectomy. Pt has several comorbidities and is on rivaroxaban. Plan to discuss with Dr. Hubbard about next steps. Return to office: 4 weeks I spent a total of 50 minutes on the date of the service which included preparing to see the patient, [id number] patient care, completing clinical documentation, obtaining and/or reviewing separately obtained history, performing a medically appropriate examination, counseling and educating the patient/family/caregiver, and communicating with other HCPs (not separately reported). MD josefa Santana documented in this encounter [facility] 05-01-2023 Miscellaneous Notes Susan Estrada (Daughter) called in regarding their mother. Susan would like to know more information regarding her mothers' recent visit on 04/25. She also wanted to know more information on the appointment that she's scheduled for on 06/07 Good call back: [phone] documented in this encounter [facility] 04-26-2023 Miscellaneous Notes Please note, patient will hold Xarelto on 04/27/23 in anticipation of biopsy early next week. STAFF-INITIATED RADIOLOGY BIOPSY / ASPIRATION / DRAIN REQUEST FORM Date: April 26, 2023 Time: 4:05 PM PATIENT CONTACT INFORMATION: [phone] SCHEDULING: [facility] (Abdominal / Thoracic [...] OF THE REQUEST: US Date: 04/25/23 IMAGING: [facility] (If the imaging was obtained outside the [facility] system, PLEASE upload for review prior to approval.) Note to all persons requesting biopsies: All biopsy requests will be scheduled as quickly as possible, based on the clinical urgency, availability of appointment times, the need to hold anti-thrombolytic therapy (aspirin and other blood thinners) and the patient s schedule, including the need for an available student truck driver. If a percutaneous biopsy or drainage is not felt to be safe or an alternative method for establishing a diagnosis is possible, this will be discussed directly with the requesting physician. documented in this encounter [facility] 04-25-2023 Note HNO ID: [id number] Author: Sarah Hubbard MD Service: ? Author Type: Physician Type: Progress Notes Filed: 04/25/2023 1:09 PM Note Text: Sarah Hubbard M.D. Department of Endocrine Surgery Endocrinology Metabolism [place] [address], [place] [address] ENDOCRINE SURGERY NEW PATIENT VISIT NAME: Sandy Bal CLINIC NO: [id number] : 1950 History of Present Illness: Sandy [...] of 3 separate left thyroid nodules - [place] 3 and 4. No molecular testing was [...] Severe sepsis(995.92) October 2006 Multiorgan failure Shingles 1999 Left chin Spinal stenosis, other than cervical [...] TOTAL ABDOMINAL HYSTERECT W/WO RMVL TUBE OVARY 1988 Hysterectomy, CHICA, appy CURRENT MEDICATIONS: Current Outpatient [...] CAPSULE DAILY 1/2 HR BEFORE MEAL. Insulin [place], Disposable, (PEN NEEDLE) 29 x 1/2 ndle [...] 250.00. INSULIN DEP: YES. AM-MED Diabetic Supplies. [employer] diltiazem CD (CARTIA XT) 180 mg 24 hr capsule Take 2 capsules by mouth once daily. prega (more content not included)... [facility] 04-16-2023 Miscellaneous Notes 04/17/2023 - [facility] for Anika Cedeno Appointment 04/25 [facility] - 02/25/23 Thyroid - 03/01/23 documented in this encounter [facility] 06-20-2021 Note . MICRO - Microbiology PROCEDURE: [...] Locations *1: This test was performed at: [address], [address] [place] [address] ([place]) 06-18-2021 Note . MICRO - Microbiology PROCEDURE: [...] Locations *1: This test was performed at: [address], [address] [place] [address] ([place]) 06-16-2021 Note ORIGINAL PROCEDURE: 1. PICC placement with fluoroscopy and ultrasound guidance SCOOPING MACHINE TENDER: Sheri Maldonado PA-C CLINICAL STATEMENT: Left great [...] Sign Date: 06/16/2021 4:14:24 PM Ordering Provider: Counts include 234 beds at the [facility] ([place]) 06-16-2021 Note . MICRO - Microbiology PROCEDURE: [...] Locations *1: This test was performed at: [address], [address] [place] [address] ([place]) 06-15-2021 Note . MICRO - Microbiology PROCEDURE: [...] Locations *1: This test was performed at: [address], [address] [place] [address] ([place]) documented as of this encounter (statuses as of 04/17/2023) [facility] History of Past illness Narrative* Problem Noted [...] of this encounter (statuses as of 04/27/2023) [facility] History of Past illness Narrative* Problem Noted [...] of this encounter (statuses as of 05/04/2023) [facility] History of Past illness Narrative* Problem Noted [...] of this encounter (statuses as of 06/10/2023) [facility] History of Past illness Narrative* Problem Noted [...] of this encounter (statuses as of 06/11/2023) [facility] History of Past illness Narrative* Problem Noted [...] of this encounter (statuses as of 06/19/2023) [facility] History of Past illness Narrative* Problem Noted [...] of this encounter (statuses as of 06/27/2023) [facility] History of Past illness Narrative* Problem Noted [...] of this encounter (statuses as of 06/28/2023) [facility] History of Past illness Narrative* Problem Noted [...] of this encounter (statuses as of 06/28/2023) [facility] Diagnosis Neck mass- Primary Swelling, mass, or lump in head and neck [facility] Diagnosis 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 and other parts of nervous system [facility] Diagnosis 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 and other parts of nervous system [facility] 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 and other parts of nervous system [facility] Diagnosis Thyroid cancer (HCC) Malignant neoplasm of thyroid gland documented in this encounter [facility] Summary Purpose Family History No Family History Records FoundNo Family History Records Found Advance Directives No Advanced Directives Records FoundDocuments on File Type Date Recorded 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 Advance Directive(s) 04/29/2023 11:52 AM Documents on File Type Date Recorded 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 Advance Directive(s) 04/29/2023 11:52 AM Reason for Referral Specialty Diagnoses / Procedures Referred By Contac t Referred To Contact CT IMAGING Diagnoses Follicular neoplasm of thyroid Procedures CT NECK SOFT TISSUE W IVCON CT SOFT TISSUE NECK W/CONTRAST MATERIAL Del Hang Reno MD [address] [address] [place] [address] Referral ID Status Reason Start Date Expiration Date Visits Requested Visits Authorized [id number] Pending Review Auto-Generat ed Referral 3 07/17/2024 1 1 Referral ID Status Reason Start Date Expiration Date V isits Requested Visits Authorized [id number] Closed Auto-Generate d Referral 06/18/2023 07/17/2024 1 1 Specialty Diagnoses / Procedures Referred By Contac t Referred To Contact Diagnoses Thyroid cancer (HCC) Procedures REFER TO PACC - PRE ANESTHESIA CONSULTATION CLINIC OFFICE/OUTPATIENT [facility] MDM 60-74 MINUTES Juan Jose Gutierrez MD [address] [place] [address] Referral ID Status Reason Start Date Expiration Date Visits Requested Visits Authorized [id number] Pending Review PCP Requested Referral 3 06/26/2024 1 1 Specialty Diagnoses / Procedures Referred By Contac t Referred To Contact [facility] Diagnoses Thyroid cancer (HCC) Procedures ECG COMPLETE ECG ROUTINE ECG W/LEAST 12 LDS W/I&R Juan Jose Gutierrez MD [address] [place] [address] [facility] [place] [address] [place] [address] Referral ID Status Reason Start Date Expiration Date Visits Requested Visits Authorized [id number] Pending Review Auto-Generat ed Referral 3 06/26/2024 1 1 Additional Source Comments INFORMATION SOURCE (unrecogn ized section and content) DATE CREATED AUTHOR AUTHOR'S ORGANIZ ATION 08/04/2023 [facility] Source Comments (unrecognize d section and content) In the event this informatio n is protected by the Federal Confidentiality of Alcohol and Drug Abuse Patient Records regulations: The Federal rules restrict any use of the information to criminally investigate or prosecute any alcohol or drug abuse patient.[facility] the event this information is protected by the Federal Confidentiality of Alcohol and Drug Abuse Patient Records regulations: The Federal rules restrict any use of the information to criminally investigate or prosecute any alcohol or drug abuse patient.[facility] the event this information is protected by the Federal Confidentiality of Alcohol and Drug Abuse Patient Records regulations: The Federal rules restrict any use of the information to criminally investigate or prosecute any alcohol or drug abuse patient.[facility] the event this information is protected by the Federal Confidentiality of Alcohol and Drug Abuse Patient Records regulations: The Federal rules restrict any use of the information to criminally investigate or prosecute any alcohol or drug abuse patient.[facility] the event this information is protected by the Federal Confidentiality of Alcohol and Drug Abuse Patient Records regulations: The Federal rules restrict any use of the information to criminally investigate or prosecute any alcohol or drug abuse patient.[facility] the event this information is protected by the Federal Confidentiality of Alcohol and Drug Abuse Patient Records regulations: The Federal rules restrict any use of the information to criminally investigate or prosecute any alcohol or drug abuse patient.[facility] the event this information is protected by the Federal Confidentiality of Alcohol and Drug Abuse Patient Records regulations: The Federal rules restrict any use of the information to criminally investigate or prosecute any alcohol or drug abuse patient.[facility]In the event this information is protected by the Federal Confidentiality of Alcohol and Drug Abuse Patient Records regulations: The Federal rules restrict any use of the information to criminally investigate or prosecute any alcohol or drug abuse patient.[facility]In the event this information is protected by the Federal Confidentiality of Alcohol and Drug Abuse Patient Records regulations: The Federal rules restrict any use of the information to criminally investigate or prosecute any alcohol or drug abuse patient.[facility] Reason for Visit (unrecogniz ed section and content) Reason Comments Biopsy Request Reason Comments Patient Question Reason Comments Consult Specialty Diagnoses / Procedures Referred By Contac t Referred To Contact Endocrinology / ENDOCRINOLOGY Diagnoses Thyroid Cancer Procedures NEW SHANA Petros Spicer MD [address] [address] Hang Martinez MD [address] [facility] [address] [place] [address] Referral ID Status Reason Start Date Expiration Date V isits Requested Visits Authorized [id number] Outside PCP 06/07/2023 08/06/2023 1 1 Reason Comments Patient Update Reason Comments Radiology CT Specialty Diagnoses / Procedures Referred By Contac t Referred To Contact CT IMAGING Diagnoses Follicular neoplasm of thyroid Procedures CT NECK SOFT TISSUE W IVCON CT SOFT TISSUE NECK W/CONTRAST MATERIAL Hang Martinez MD [address] [facility] [address] [place] [address] [place] [address] Referral ID Status Reason Start Date Expiration Date V isits Requested Visits Authorized [id number] Closed Auto-Generate d Referral 06/18/2023 07/17/2024 1 [...] HIGH MDM 40-54 MIN Rosa Silva MD [address] [place] [address] Juan Jose Gutierrez MD [address] [facility] 234 BEDS AT [facility] [address] [place] [id number] Referral ID Status Reason Start Date Expiration Date Visits Requested Visits Authorized [id number] Authorized PCP Requested Referral 3 06/11/2024 99 99 Care Teams (unrecognized sec tion and content) Cloak Room Attendant Relationship Specialty Start Date End Date Rosa Silva MD [address] [place] [address] PCP - General Gerontology 05/02/23 Cloak Room Attendant Relationship Specialty Start Date End Date Rosa Silva MD [address] [place] [address] PCP - General Gerontology 05/02/23 Cloak Room Attendant Relationship Specialty Start Date End Date Rosa Silva MD [address] [place] [address] PCP - General Gerontology 05/02/23 Cloak Room Attendant Relationship Specialty Start Date End Date Rosa Silva MD [address] [place] [address] PCP - General Gerontology 05/02/23 FOR RECORDS [...] BE BASED ON THE PRIMARY CLINICAL RECORDS. [employer] [facility]. provides no warranty or guarantee of the accuracy or completeness of information in this document.
[2023-08-06 08:15] LABS: Hemoglobin 11.3 g/dL (12.0-15.0); Mean Corp Hgb Conc 32.3 g/dL (32-36); Mean Corpuscular Hgb 27.4 pg (27.0-32.0); Mean Corpuscular Volume 84.7 fL (81-99); Mean Platelet Vol. 12.1 fl (6.2-12.0); Platelet Count 129 K/mm3 (150-450); RBC Distribution Width CV 15.5 % (11.6-14.6); RBC Distribution Width SD 47.6 fl (35.1-43.9); Red Blood Count 4.13 M/mm3 (4.2-5.4); White Blood Count 6.1 K/mm3 (4.4-11.0)
[2023-08-06 08:51] LABS: Anion Gap 8 (5-15); BUN 23 mg/dL (7-18); BUN/Creat Ratio 32.4 RATIO (10-20); Calcium,Total 10.3 mg/dL (8.5-10.1); Chloride 106 mmol/L (98-107); Creatinine, Serum 0.71 mg/dL (0.55-1.02); EST Glomerular Filtration Rate 85 mL/min (>60); Est Glom Filt Rate - Afr Amer 103 mL/min (>60); Glucose 118 mg/dL (74-106); Magnesium 1.9 mg/dL (1.6-2.6); Potassium 3.6 mmol/L (3.5-5.1); Sodium Level 140 mmol/L (136-145)
== END ==
LOC: OLS.SW 05:00
PROVIDERS: PCP Internal Medicine; Visit Provider Internal Medicine
DX: D64.9 Anemia, unspecified (principal); E11.22 Type 2 diabetes mellitus with diabetic chronic kidney disease; N18.32 Chronic kidney disease, stage 3b
CPT/HCPCS: 36415; 80048; 83735; 85027

== ENCOUNTER → 2023-08-13 | Outpatient (REF) | payer MEDICARE, MEDICAID, SELFPAY ==
[2023-08-13 09:20] LABS: Hemoglobin 12.3 g/dL (12.0-15.0); Mean Corp Hgb Conc 32.4 g/dL (32-36); Mean Corpuscular Volume 83.5 fL (81-99); Mean Platelet Vol. 12.2 fl (6.2-12.0); Platelet Count 182 K/mm3 (150-450); RBC Distribution Width CV 14.9 % (11.6-14.6); Red Blood Count 4.55 M/mm3 (4.2-5.4); White Blood Count 12.4 K/mm3 (4.4-11.0)
--- OUTSIDE RECORDS SUMMARY | 2023-08-13 09:22 | XMS RPT_ITS | CCD ---
Author Name Unknown Address [address] [facility] [address] [place] [address] Organization [facility] Care Team Providers Care Die Maintenance Name Role Phone Unavailable Primary Care Provider UnavailRosa Jones MD Primary Care Provider Rosa Silva MD Primary Care Provider [phone] ISELA ROSA D Primary Care Unavailable JUAN JOSE GUTIERREZ Referring Unavailable HEMALATHADLA, ROSA D Primary Care Unavailable JUAN JOSE GUTIERREZ Attending Unavailable JUAN JOSE GUTIERREZ Admitting Unavailable GUDLA, ROSA D Primary Care Unavailable SARAH HUBBARD Referring Unavailable JUAN JOSE GUTIERREZ Attending Unavailable HANG SMITH Referring Unavai lable GUDLA, ROSA D Primary Care Unavailable CELIA TAVERAS Attending Unavailable CELIA TAVERAS Admitting Unavailable GUDLA, ROSA D Primary Care Unavailable HANG SMITH Referring Unavai lable GUDLA, ROSA D Primary Care Unavailable PETROS ORTIZ Referring Unavailable HANG SMITH Attending Unavai lable GUDLA, ROSA D Primary Care Unavailable SARAH HUBBARD Referring Unavailable BATSHEVA AZAR Referring Unavailable SARAH HUBBARD Attending Unavailable HEMALATHADLA, ROSA D Primary Care Unavailable JUAN JOSE GUTIERREZ Referring Unavailable Allergies Allergy Classification Reported Allergen(s) Allergy Type Date of Onset Reaction(s) Facility (10 sources) Latex; Translations: [LATEX, NATURAL RUBBER] Drug Allergy 4 Itching [facility] Work Phone: (10 sources) Penicillins; Translations: [PENICILLINS] Propensity to adverse reactions 7 Anaphylaxis [facility] Work Phone: (10 sources) Salicylate product; Translations: [SALICYLATES] Propensity to adverse reactions 7 Hives [facility] Work Phone: (10 sources) Sulfonamides (Antibiotic); Translations: [SULFA (SULFONAMIDE ANTIBIOTICS)] Propensity to adverse reactions 7 Anaphylaxis [facility] Work Phone: (9 sources) Aspirin; Translations: [ASPIRIN] Drug Allergy 1 Unknown [facility] Medications Completed/Discontinued Medications Medication Drug Class(es) [...] Translations: [Malignant neoplasm of thyroid gland] Onset: 08-07-2023 06-27-2023 Chronic Cardiac dysrhythmias (1 source) Unspecified [...] 02-12-2013 02-12-2013 Chronic Other 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; Translations: [Type 2 [...] Spondylosis; intervertebral disc disorders; other back problems (10 sources) Low back pain; Translations: [Lumbago] Onset: 12-26-2006 07-24-2021 Episodic Results Test Name Value Interpretation Reference Range Facil ity Vital Signs Date Time Vital Sign Value Performing Clinician Chase bustamante 06-07-2023 08:24-0500 Body height 157.5 cm Hang Smith MD Work Phone: [facility] 06-07-2023 08:24-0500 Body weight 97.07 kg Hang Smith MD Work Phone: [facility] 06-07-2023 08:24-0500 Diastolic blood pressure 53 mm[Hg] Hang Smith MD Work Phone: [facility] 06-07-2023 08:24-0500 Heart rate 92 /min Hang Smith MD Work Phone: [facility] 06-07-2023 08:24-0500 Systolic blood pressure 125 mm[Hg] Hang Smith MD Work Phone: [facility] Encounters Encounter Date Encounter Type Care Provider Facility Start: 08-06-2023 End: 08-11-2023 Evaluation and management of inpatient ROSA D GUDLA Facility:[facility] Start: 07-31-2023 End: 08-01-2023 ambulatory ROSA D GUDLA Facility:[facility] Start: 07-31-2023 End: 08-01-2023 ambulatory ROSA D GUDLA Facility:[facility] Start: 07-31-2023 Encounter for other preprocedural examination ROSA GUDLA [facility] Start: 06-27-2023 End: 06-27-2023 ambulatory ROSA D GUDLA Facility:[facility] Start: 06-27-2023 End: 06-27-2023 Patient encounter procedure Juan Jose Gutierrez MD Work Phone: Otolaryngology Procedures Date Procedure Procedure Detail Performing Clinician Start: 06-26-2023 Ct soft tissue neck w/contrast material Hang Smith MD Work Phone: Start: 06-28-2005 Ramila Hubbard MD Work Phone: Plan of Treatment Date Care Activity Detail Author Start: 06-07-2024 BP Controlled (<130/80) BP Controlle d (<130/80) [facility] Start: 06-27-2023 End: 09-26-2023 Basic metabolic 2000 panel - Serum or Plasma BASIC METABOLIC PNL Lab Routine Thyroid cancer (HCC) Expected: 06/27/2023, Expires: 09/26/2023 [facility] Work Phone: Immunizations Immunization Date Immunization Notes Care Provider Fa cili 06-21-2021 influenza virus vacc ine, unspecified formulation Sarah Hubbard MD Work Phone: [facility] 05-09-2018 influenza virus vacc ine, unspecified formulation Sarah Hubbard MD Work Phone: [facility] 05-13-2014 influenza, seasonal, injectable Sarah Hubbard MD Work Phone: [facility] 05-15-2013 influenza virus vacc ine, unspecified formulation Sarah Hubbard MD Work Phone: [facility] Work Phone: 11-08-2012 pneumococcal polysaccharide vaccine, 23 valent Sarah Hubbard MD Work Phone: [facility] 05-12-2012 influenza virus vacc ine, unspecified formulation Sarah Hubbard MD Work Phone: [facility] Work Phone: 05-16-2011 influenza virus vacc ine, unspecified formulation Sarah Hubbard MD Work Phone: [facility] Work Phone: 11-04-2008 tetanus and diphther ia toxoids, adsorbed, preservative free, for adult use (2 Lf of tetanus toxoid and 2 Lf of diphtheria toxoid) Sarah Hubbard MD Work Phone: [facility] Work Phone: 09-02-2008 influenza virus vacc ine, unspecified formulation Sarah Hubbard MD Work Phone: [facility] Work Phone: 06-26-2007 influenza virus vacc ine, unspecified formulation Sarah Hubbard MD Work Phone: [facility] Work Phone: 07-29-1994 pneumococcal polysaccharide vaccine, 23 valent Sarah Hubbard MD Work Phone: [facility] Work Phone: Payers Date Payer Category Payer Medicare A[employer]NA MEDICARE A ETNA MEDICARE ASSURE HMO D SNP [id number] 2021-Present [phone] [address] [place] [address] Medicare [id number] 2021 Medicare [id number] 2019 Medicaid [employer] [facility] [id number] 2019-Present [phone] [address] [place] [address] Medicaid [id number] 2019 Medicaid [id number] Social History Date Type Detail Facility Start: 07-05-2011 Tobacco smoking stat [facility] Never smoked tobacco [facility] Work Phone: Start: 07-05-2011 Tobacco use and exposure Smokeless tobacco non-user [facility] Work Phone: Start: 03-14-2022 End: 06-27-2023 Alcohol intake Current non-drinker of alcohol (finding) [facility] Start: 03-22-2016 End: 04-25-2023 History of Social function [facility] Start: 03-22-2016 End: 04-25-2023 Tobacco use panel [facility] National Score (1-100), lower number is lower risk Not on file [facility] Start: 12-26-2006 Alcohol Comment rare [facility] Start: 1950 Sex Assigned At Not on file [facility] Start: 1950 Sex Assigned At Female C [facility] Start: 06-19-2023 Gender identity Identifies as female gender (finding) [facility] Medical Equipment Procedure Code Equipment Code Equipment Origin al Text Equipment Identifier Dates Stent Uret 7fr 2 4cm W/O Gw Inl - [id number] Start: 01-13-2013 TEST BLOOD SUGAR 4 TIMES PER DAY. DX: 250.00. INSULIN DEP: YES. AM-MED Diabetic Supplies. [email or web address] Start: 01-07-2014 Clinical Notes 08-23-2011 to 08-11-2023 Telephone Encounter - Liz Gomez RN - 06/27/2023 4:34 PM Juan Jose Rivas MD - 06/27/2023 2:50 PM Cate Estrada - 06/27/2023 2:29 PM EST Note Date & Type Note Facility 08-11-2023 Note HNO ID: [id number] Author: JACQUELYN GONZALEZ MD Service: Otolaryngology Author Type: Resident Type: Progress Notes Filed: 08/11/2023 07:14 Note Text: [facility] OT[facility] - HEAD AND NECK SURGERY PROGRESS NOTE PAGE [phone] AFTER 1700 AND ON WEEKENDS Patient Name: Sandy Bal Age: [age] year old Sex: female Date: August 11, 2023 Admission Date: 08/06/2023 Hospital Day: 4 ASSESSMENT/PLAN: Sandy Bal is a 73 year old female who is 5 Days Post-Op from 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 Reportedly eating 75% of meals per nursing. Continue PO encouragement. - Restart Xarelto this morning - Improving voice and swallowing - Appreciate speech language pathology recs - FU path - DC Corpak - Anticipate swallow function will improve with improvement of edema - Analgesia: Tylenol, oxy, tramadol - AC: Lovenox - FEN: Soft - Wound Care: Aquaphor to incision BID - Drains: serousanguinous, Strip drains q4h, record output q8h - Dispo: DC home today Jacquelyn Gonzalez MD PGY-2 Otolaryngology - Head and Neck Surgery Pager: [phone] After 5 PM on weekdays OR weekends/holidays: [phone] SUBJECTIVE: Eating 75-80% of meal trays per nursing. OBJECTIVE: Vitals: 08/10/23 1548 08/10/23 1741 08/10/23 2042 08/11/23 0145 BP: 114/54 107/84 (!) 100/48 124/55 Pulse: 89 85 80 76 Resp: 18 18 17 Temp: 36.6 ?C (97.9 ?F) 36.5 ?C (97.7 ?F) 36.7 ?C (98.1 ?F) TempSrc: Oral Axillary Axillary SpO2: 95% 92% 95% 95% Weight: Height: Ins AND Outs: Date 08/10/23 07 - 08/11/23 0659 08/11/23 07 - 08/12/23 0659 Shift 0007-2059 5954-8062 0090-6119 24 Hour Total 2528-7708 6271-3779 7795-6041 24 Hour Total INTAKE PO(mL/kg) 510(5.3) 510(5.3) PO 360 360 Supplements (mL) 150 150 IV(mL/kg) 10(0.1) 10(0.1) Volume (mL) (NaCl 0.9% iv flush bag) 10 10 Shift Total(mL/kg) 520(5.41) 520(5.41) OUTPUT Urine(mL/kg/hr) 1051(1.37) 901(1.17) 1951 Void (ml) 1 1 2 Urine Incontinence/Not Saved 1 x 1 x Urine Not Saved. 1 x 1 x Output ( External Collection Device 08/06/23 2330) 1878 335 7017 # of BMs(mL/kg) Stool Incontinence 2 x 1 x 3 x Number of BMs 2 x 1 x 3 x Shift Total(mL/kg) 1051(10.93) 901(9.37) 1952(20.3) Weight (kg) 96.16 96.16 96.16 96.16 96.16 96.16 96.16 96.16 Physical Examination: General: No acute distress Neuro: following commands, appropriate Cardiopulm: Well perfused, breathing non-labored, no hoarseness Face: Full and symmetric facial motion, no weakness Neck: soft, incisions c/d/i, no signs of hematoma, seroma Drains: LN MIRIAM x 1, serosanguinous and holding suction Corpak in place Procedure: None LABS: Blood: Recent Labs 08/10/23 0913 08/09/23 0836 08/08/23 0633 WBC 5.98 3.92 3.11* HB 12.5 10.2* 10.1* HCT 37.4 31.2* 31.3* PLT 126* 140* 109* MCV 83.5 82.5 86.2 MCH 27.9 27.0 27.8 MCHC 33.4 32.7 32.3 RDWCV 14.3 14.2 14.9 MPV 11.3 11.5 11.3 Recent Labs 08/10/23 0913 08/09/23 0836 08/08/23 0634 NA 140 142 144 K 4.1 3.9 4.5 CHLOR 103 105 107* CO2 24 27 23 BUN 23* 27* 21 CREAT 0.46* 0.42* 0.48* GLUC 108* 282* 192* CA 9.9 9.3 9.3 MG 2.0 2.0 2.1 P 3.3 2.2* 3.9 Recent Labs 08/11/23 0459 08/10/23 2043 08/10/23 1740 08/10/23 1711 08/10/23 1151 08/10/23 0800 08/10/23 0512 08/10/23 0011 PCGLUCOSE 114* 138* 110* 127* 165* 106* 102* 111* No results for input(s): CK , CKMB , MB , TROPT in the last 72 hours. No results for input(s): PTSEC , INR , APTT in the last 72 hours. No results for input(s): TBILI , CBILI , AST , ALT , ALKPHOS , TPROT , ALB , AMYLASE , LIPASE in the last 72 hours. No results for input(s): PH , PCO2 , PO2 , HCO3 , BE , LACT in the last 72 hours. Medications: Current Facility-Administered Medications Medication Dose Route Frequency insulin lispro injection (rapid acting) (ADMElog) SUBCUTANEOUS w MEALS insulin lispro 0-5 Units injection (rapid acting) (ADMElog) 0-5 Units SUBCUTANEOUS AT BEDTIME insulin lispro 0-4 Units injection (rapid acting) (ADMElog) 0-4 Units SUBCUTANEOUS Daily (3 AM) insulin glargine 8 Units pen (long acting) 8 Units SUBCUTANEOUS DAILY AT 12 PM insulin lispro 4 Units injection (rapid acting) (ADMElog) 4 Units SUBCUTANEOUS DAILY WITH BREAKFAST insulin lispro 4 Units injection (rapid acting) (ADMElog) 4 Units SUBCUTANEOUS DAILY wLUNCH insulin lispro 4 Units injection (rapid acting) (ADMElog) 4 Units SUBCUTANEOUS DAILY wDINNER benzocaine-menthol 1 Lozenge (CHLORASEPTIC) 1 Lozenge MUCOUS MEMBRANE (TOPICAL MOUTH AND THROAT) q 2 H PRN zinc oxide cream (DESITIN) TOPICAL PRN acetaminophen 650 mg CUP (TYLENOL) 650 mg ORAL q 6 H ferrous sulfate 325 mg CUP 325 mg ORAL/FEEDING TUBE BID pantoprazole 20 mg oral liquid (PROTONIX) 20 mg ORAL DAILY (6 AM) sennosides 8.8 mg oral liquid (SENNA) 8.8 mg ORAL/FEEDING TUBE AT BEDTIME lactase 9,000 Units tab(s) (LACTAID) 9,0 (more content not included)... 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 At baseline when primary and AMET team evaluated. No focal neuro deficits. Tolerated biPap. PO 960 overnight. Continue PO encouragement. Weaned off oxygen. 91% RA. - Improving voice and swallowing - Appreciate speech language pathology recs - FU path - Continue Corpak - Anticipate swallow function will improve with improvement of edema - Analgesia: Tylenol, oxy, tramadol - Antibiotics: Doxy - AC: Lovenox - FEN: Soft - Wound Care: Bacitracin to incisions BID until POD3, Aquaphor afterwards. - Drains: serousanguinous, Strip drains q4h, record output q8h - Dispo: TERRA Wallace, PGY-2, Otolaryngology Service Pager: [phone] Pager: [phone] August 07, 2023 5:22 AM For questions after 5 PM and on weekends, please page [phone]. SUBJECTIVE: Canceled AMET overnight for AMS. At baseline when primary and AMET team evaluated. No focal neuro deficits. Tolerated biPap. PO 960 overnight. OBJECTIVE: Vitals: 08/09/23 2106 08/10/23 0140 08/10/23 0144 08/10/23 0517 BP: (!) 113/46 (!) 103/45 (!) 126/49 Pulse: 72 79 80 86 Resp: 18 18 17 Temp: 36.8 ?C (98.2 ?F) 36.3 ?C (97.3 ?F) 36.8 ?C (98.2 ?F) TempSrc: Oral Axillary Oral SpO2: 96% 99% 98% 91% Weight: Height: Ins AND Outs: Date 08/09/23 0700 - 08/10/23 0659 08/10/23 0700 - 08/11/23 0659 Shift 4170-0028 5818-3283 4046-6649 24 Hour Total 4121-7827 2718-9243 0645-8311 24 Hour Total INTAKE PO(mL/kg) 180(1.87) 780(8.11) 960(9.98) PO 180 600 780 Supplements (mL) 0 180 180 Irrigants(mL/kg) 240(2.5) 240(2.5) Irrigant/Flush Amount In mL (I/O) (GI/ Feeding Naris) 240 240 Gastric Tube 460 460 Tube Feed Intake mL (I/O) (GI/ Feeding Naris) 460 460 Shift Total(mL/kg) 880(9.15) 780(8.11) 1660(17.26) OUTPUT Urine(mL/kg/hr) 803(1.04) 700(0.91) 1503(0.65) Void (ml) 3 3 Urine Incontinence/Not Saved 1 x 2 x 3 x Output ( External Collection Device 08/06/23 2330) 072 884 9842 # of BMs(mL/kg) Stool Incontinence 2 x 2 x Number of BMs 0 x 2 x 2 x Shift Total(mL/kg) 803(8.35) 700(7.28) 1503(15.63) Weight (kg) 96.16 96.16 96.16 96.16 96.16 96.16 96.16 96.16 Physical Examination: General: No acute distress Neuro: following commands, appropriate Cardiopulm: Well perfused, breathing non-labored, no hoarseness Face: Full and symmetric facial motion, no weakness Neck: soft, incisions c/d/i, no signs of hematoma, seroma Drains: LN MIRIAM x 1, serosanguinous and holding suction Corpak in place Procedure: None LABS: Blood: Recent Labs 08/09/23 0836 08/08/23 0633 08/07/23 0846 WBC 3.92 3.11* 4.52 HB 10.2* 10.1* 9.4* HCT 31.2* 31.3* 29.2* PLT 140* 109* 107* MCV 82.5 86.2 84.9 MCH 27.0 27.8 27.3 MCHC 32.7 32.3 32.2 RDWCV 14.2 14.9 15.2* MPV 11.5 11.3 11.2 Recent Labs 08/09/23 0836 08/08/23 0634 08/07/23 0846 NA 142 144 141 K 3.9 4.5 4.1 CHLOR 105 107* 108* CO2 27 23 22 BUN 27* 21 23* CREAT 0.42* 0.48* 0.52* GLUC 282* 192* 174* CA 9.3 9.3 9.2 MG 2.0 2.1 2.0 P 2.2* 3.9 3.7 Recent Labs 08/10/23 0800 08/10/23 0512 08/10/23 0011 08/09/23 2214 08/09/23 1747 08/09/23 1453 08/09/23 1127 08/09/23 0841 PCGLUCOSE 106* 102* 111* 151* 246* 185* 260* 294* No results for input(s): CK , CKMB , MB , TROPT in the last 72 hours. No results for input(s): PTSEC , INR , APTT in the last 72 hours. No results for input(s): TBILI , CBILI , AST , ALT , ALKPHOS , TPROT , ALB , AMYLASE , LIPASE in the last 72 hours. No results for input(s): PH , PCO2 , PO2 , HCO3 , BE , LACT in the last 72 hours. Medications: Current Facility-Administered Medications Medication Dose Route Frequency insulin lispro injection (rapid acting) (ADMElog) SUBCUTANEOUS w MEALS insulin lispro 0-5 Units injection (rapid acting) (ADMElog) 0-5 Units SUBCUTANEOUS AT BEDTIME [START ON 08/11/2023] insulin lispro 0-4 Units injection (rapid acting) (ADMElog) 0-4 Units SUBCUTANEOUS Daily (3 AM) insulin glargine 8 Units pen (long acting) 8 Units SUBCUTANEOUS DAILY AT 12 PM insulin lispro 4 Units injection (rapid acting) (ADMElog) 4 Units SUBCUTANEOUS DAILY WITH BREAKFAST insulin lispro 4 Units injection (rapid acting) (ADMElog) 4 Units SUBCUTANEOUS DAILY wLUNCH insulin lispro 4 Units injection (rapid acting) (ADMElog) 4 Units SUBCUTANEOUS DAILY wDINNER ferrous sulfate 325 mg CUP 325 mg ORAL/FEEDING TUBE BID pant (more content not included)... [facility] 08-10-2023 Note HNO ID: [id number] Author: NOTE, INTERFACE, ? Service: ? Author Type: ? Type: Progress Notes Filed: 08/10/2023 02:16 Note Text: Epic Scheduled Downtime: 08/10/2023 1:00:00 AM to 08/10/2023 2:04:22 AM [facility] 08-09-2023 Note HNO ID: [id number] Author: CLIFFORD NARAYAN RN Service: Care Management Author Type: Registered Nurse Type: Care Mgt Progress Note Filed: 08/09/2023 15:03 Note Text: CARE MANAGEMENT WEEKEND PLANNING NOTE DISCHARGE OR POSSIBLE DISCHARGE Date/Time: Saturday08/11/2023 / 2pm Disposition: Extended Care Facility - Precert Obtained: No Facility Name: [facility] Facility Phone #: [phone] Facility Fax #: [phone] Call Report To: [phone] D/C Packet Completed: Yes - Location of Packet: [facility]: Mode of Transportation: Ambulance Transportation Agency and Phone #: [facility] [phone] . Date of Trip: 08/11/2023 / 2PM trip #[id number] Type of Service: BLS Non-emergency Is Patient Medicaid Pending: No Discussion of financial coverage occurred with Patient and Underwriting Technician . Software Licensing Executive Location: 115 Destination: [facility] Per medical team patient may be ready for discharge this weekend and may need tube feeds when returns to her facility. CM communicated this need to facility and they will be able to provide enteral feeds through corpak at their facility. Patient has Electric Scooter at her bedside. Per Facility they have someone to pick it up today from patient's room to take back to facility. Weekend CM must fax D/C Instructions to facility if weekend discharge. Please see Treatment Team for Care Management Weekend/Holiday coverage. SIGNATURE: Clifford Narayan RN PATIENT NAME: Sandy Bal DATE: August 09, 2023 TIME: 2:53 PM PAGER/CONTACT #: [phone] [facility] 08-09-2023 Note HNO ID: [id number] Author: KRISTIN APARICIO RT(Caity) Service: Radiology Author Type: Technologist Type: Progress Notes Filed: 08/09/2023 11:13 Note Text: Radiology Service Progress Note PATIENT NAME: Sandy Bal DATE OF SERVICE: August 09, 2023 TIME: 11:13 AM PATIENT IDENTITY VERIFICATION COMPLETED USING TWO (2) IDENTIFIERS: Name and Date of confirmed by patient verbally and Name and Date of confirmed by identification band. FALL SCREENING: Has the patient had 2 falls in the last year or 1 fall with injury or currently using an Ambulatory Assistive Device (Walker, Cane, Wheelchair, Crutches, etc.)? Inpatient: Screened on floor PATIENT GENDER DATA: Female. status: : No status: NO. PATIENT RELEVANT IMPLANT DATA REVIEWED: Not Applicable RADIOLOGY DEPARTMENT: General X-ray: Exam(s) Completed: GI/ Procedure(s): Modified barium swallow with barium contrast PERIPHERAL IV DATA: Not applicable SIGNED BY: RT Cat(R) August 09, 2023 11:13 AM [facility] 08-09-2023 Note HNO ID: [id number] Author: FREEMAN WALLACE MD Service: Otolaryngology Author Type: Resident Type: Progress Notes Filed: 08/09/2023 07:05 Note Text: [facility] - HEAD AND NECK SURGERY PROGRESS NOTE PAGE [phone] AFTER 1700 AND ON WEEKENDS Patient Name: Sandy Bal Age: [age] year old Sex: female Date: August 09, 2023 Admission Date: 08/06/2023 Hospital Day: 2 ASSESSMENT/PLAN: Sandy Bal is a 73 year old female who is 3 Days Post-Op from 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 Coughs with swallowing. Throat pain. Otherwise no acute overnight events. 2L NC. Dysphagia due to vagus nerve sacrifice. - Improving voice and swallowing - Appreciate speech language pathology recs - FU path - DC drain - Tube feeds - Anticipate swallow function will improve with improvement of edema - Analgesia: Tylenol, oxy, tramadol - Antibiotics: Doxy - AC: Lovenox - FEN: Regular - Wound Care: Bacitracin to incisions BID until POD3, Aquaphor afterwards. - Drains: serousanguinous, Strip drains q4h, record output q8h - Dispo: TERRA Wallace, PGY-2, Otolaryngology Service Pager: [phone] Pager: [phone] August 07, 2023 5:22 AM For questions after 5 PM and on weekends, please page [phone]. SUBJECTIVE: No acute events overnight. Pain well-controlled with current regimen. Breathing well on 2L NC. OBJECTIVE: Vitals: 08/08/23 1736 08/08/23 2203 08/09/23 0146 08/09/23 0447 BP: (!) 123/49 (!) 118/42 142/59 Pulse: 104 103 87 93 Resp: Temp: 36.5 ?C (97.7 ?F) 36.4 ?C (97.5 ?F) 36.7 ?C (98.1 ?F) TempSrc: Oral Oral Oral SpO2: 97% 95% 97% 97% Weight: Height: Ins AND Outs: Date 08/08/23 0700 - 08/09/23 0659 08/09/23 0700 - 08/10/23 0659 Shift 5828-2840 7507-2853 7516-3201 24 Hour Total 5352-9788 3514-1937 5585-5773 24 Hour Total INTAKE PO 105 105 0 210 PO 105 105 0 210 Supplements (mL) 0 0 0 IV 700 800 0 1500 Volume (mL) (NaCl 0.9% iv infusion) 700 800 0 1500 Irrigants 90 90 280 460 Irrigant/Flush Amount In mL (I/O) (GI/ Feeding Naris) 90 90 280 460 Gastric Tube 80 236 230 0130 Tube Feed Intake mL (I/O) (GI/ Feeding Naris) 80 993 213 7202 Shift Total 975 3830 334 8432 OUTPUT Urine 2400 033 410 5167 Urine Not Saved. 2 x 1 x 3 x Output ( External Collection Device 08/06/23 2330) 2400 254 286 8204 Tubes 1 1 Drain/Tube Output (Drain/Tube 08/06/23 1756 Domenico Herbert Left Neck) 1 1 # of BMs Number of BMs 1 x 0 x 0 x 1 x Stool 0 0 0 Liquid BM (mL) 0 0 0 Shift Total 2400 715 848 6318 Weight (kg) 96.2 96.2 96.2 96.2 96.2 96.2 96.2 96.2 Physical Examination: General: No acute distress Neuro: following commands, appropriate Cardiopulm: Well perfused, breathing non-labored, no hoarseness Face: Full and symmetric facial motion, no weakness Neck: soft, incisions c/d/i, no signs of hematoma, seroma Drains: LN MIRIAM x 1, serosanguinous and holding suction Procedure: None LABS: Blood: Recent Labs 08/08/23 0633 08/07/23 0846 08/06/23 1855 WBC 3.11* 4.52 3.69* HB 10.1* 9.4* 10.5* HCT 31.3* 29.2* 32.2* PLT 109* 107* 97* MCV 86.2 84.9 84.1 MCH 27.8 27.3 27.4 MCHC 32.3 32.2 32.6 RDWCV 14.9 15.2* 15.2* MPV 11.3 11.2 11.2 Recent Labs 08/08/23 0634 08/07/23 0846 08/07/23 0051 08/06/23 1855 NA 144 141 143 -- K 4.5 4.1 4.4 -- CHLOR 107* 108* 107* -- CO2 23 22 19* -- BUN 21 23* 19 -- CREAT 0.48* 0.52* 0.60 -- GLUC 192* 174* 180* -- CA 9.3 9.2 9.4 -- MG 2.1 2.0 -- 1.8 P 3.9 3.7 -- 5.0* Recent Labs 08/09/23 0452 08/08/23 2330 08/08/23 2143 08/08/23 1732 08/08/23 1153 08/08/23 0754 08/08/23 0547 08/07/232053 PCGLUCOSE 331* 335* 347* 278* 247* 212* 206* 147* No results for input(s): CK , CKMB , MB , TROPT in the last 72 hours. No results for input(s): PTSEC , INR , APTT in the last 72 hours. No results for input(s): TBILI , CBILI , AST , ALT , ALKPHOS , TPROT , ALB , AMYLASE , LIPASE in the last 72 hours. No results for input(s): PH , PCO2 , PO2 , HCO3 , BE , LACT in the last 72 hours. Medications: Current Facility-Administered Medications Medication Dose Route Frequency insulin glargine 10 Units pen (long acting) 10 Units SUBCUTANEOUS DAILY (8 AM) ferrous sulfate 325 mg CUP 325 mg ORAL/FEEDING TUBE BID pantoprazole 20 mg oral liquid (PROTONIX) 20 mg ORAL DAILY (6 AM) sennosides 8.8 mg oral liquid (SENNA) 8.8 mg ORAL/FEEDING TUBE AT BEDTIME insulin regular human injection (short acting) SUBCUTANEOUS q 6 H insulin regular human 3 Units injection (short acting) 3 Units SUBCUTANEOUS q 6 H HYDROmorphone 0.2 mg injection (DILAUDID) 0.2 mg INTRAVENOUS q 3 H PRN dilTIAZem 120 mg tab(s) (CARDIZEM) 120 mg ORAL BID 9a/3p guaiFENesin 200 mg oral liquid (ROBITUSSIN) 200 mg ORAL q 4 H PRN lactobacillus rhamnosus 10 billion cell (CULTURELLE) capsule 1 capsule ORAL/FEEDING TUBE DAILY alex (more content not included)... [facility] 08-08-2023 Note HNO ID: [id number] Author: CLIFFORD NARAYAN RN Service: Care Management Author Type: Registered Nurse Type: Care Mgt Progress Note Filed: 08/08/2023 15:18 Note Text: CARE MANAGEMENT PROGRESS NOTE SERVICE DATE: 08/08/2023 SERVICE TIME: 3:06 PM LOS: 1 day Needs Prior to Discharge: To Be Determined;Discharge Transportation CM met with patient and daughter at bedside. Patient currently has Corpak for enteral feeds. Expectation is for patient to be able to tolerate oral foods and corpak to be removed prior to discharge. CM discussed discharge transportation back to her facility. After discussion it was decided patient would go by BLS Stretcher. Patient's facility, [facility] was made aware and they said they can have their transport come and strip picker the scooter. Currently scooter and patient's belongings are locked up with Administrative Services and the unit PCNA said she will get it out and bring it to patient's room. Needs TBD pending Hospital Course. Medical team aware CM will need to schedule transportation and will need to know on Saturday if weekend discharge is anticipated. TCC will continue to follow POC for discharge planning. SIGNATURE: Clifford Narayan RN PATIENT NAME: Sandy Bal DATE: August 08, 2023 TIME: 3:06 PM PAGER/CONTACT #: [phone] [facility] 08-08-2023 Note HNO ID: [id number] Author: ABDIAZIZ LEAL APRN.CNP Service: Otolaryngology Author Type: Nurse Practitioner Type: Progress Notes Filed: 08/08/2023 09:32 Note Text: [facility] OT[facility] - HEAD AND NECK SURGERY PROGRESS NOTE PAGE [phone] AFTER 1700 AND ON WEEKENDS Patient Name: Sandy Bal Age: [age] year old Sex: female Date: August 08, 2023 Admission Date: 08/06/2023 Hospital Day: 1 ASSESSMENT/PLAN: Sandy Bal is a 73 year old female who is 2 Days Post-Op from 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 Coughs with swallowing. Throat pain. Otherwise no acute overnight events. 2L NC. Dysphagia due to vagus nerve sacrifice. - Scope yesterday demonstrating watery edema of L arytenoid and AE folds and pyriform sinus. Corpak placed under direct visualization. Decadron 10 mg q8 x3 - Anticipate swallow function will improve with improvement of edema - Keep Drains - Analgesia: Tylenol, oxy, tramadol - Antibiotics: Doxy - AC: Lovenox - FEN: Regular - Wound Care: Bacitracin to incisions BID until POD3, Aquaphor afterwards. - Drains: serousanguinous, Strip drains q4h, record output q8h - Dispo: TERRA Wallace, PGY-2, Otolaryngology Service Pager: [phone] Pager: [phone] August 07, 2023 5:22 AM For questions after 5 PM and on weekends, please page [phone]. SUBJECTIVE: No acute events overnight. Pain well-controlled with current regimen. Breathing well on 2L NC. Not tolerating regular diet. Coughs with sips of water. Voice raspy, plan ASSISTANT PRODUCTION MANAGER for swallowing OBJECTIVE: Vitals: 08/07/23 1711 08/07/23 2051 08/08/23 0214 08/08/23 0542 BP: (!) 133/49 (!) 115/48 122/57 143/64 Pulse: 108 105 102 103 Resp: 16 17 17 17 Temp: 36.5 ?C (97.7 ?F) 36.3 ?C (97.3 ?F) 36.4 ?C (97.5 ?F) 36.5 ?C (97.7 ?F) TempSrc: Oral Oral Oral Oral SpO2: 94% 94% 96% 97% Weight: Height: Ins AND Outs: Date 08/07/23 07 - 08/08/23 0659 08/08/23 07 - 08/09/23 0659 Shift 3845-3535 4128-4463 1548-7732 24 Hour Total 5921-8699 2152-0994 5005-5567 24 Hour Total INTAKE PO 0 0 0 0 PO 0 0 0 0 Supplements (mL) 0 0 0 IV 020 009 5358 Volume (mL) (NaCl 0.9% iv infusion) 236 122 2076 Irrigants 100 100 200 Irrigant/Flush Amount In mL (I/O) (GI/ Feeding Naris) 100 100 200 Shift Total 0 480 755 1397 OUTPUT Urine 500 416 153 4659 Output ( External Collection Device 08/06/23 2330) 500 643 508 6738 Tubes 20 15 35 Drain/Tube Output (Drain/Tube 08/06/23 1756 Domenico Herbert Left Neck) 20 15 35 # of BMs Number of BMs 0 x 0 x 0 x Shift Total 520 053 292 1573 Weight (kg) 96.2 96.2 96.2 96.2 96.2 96.2 96.2 96.2 Physical Examination: General: No acute distress Neuro: following commands, appropriate Cardiopulm: Well perfused, breathing non-labored, no hoarseness Face: Full and symmetric facial motion, no weakness Neck: soft, incisions c/d/i, no signs of hematoma, seroma Drains: LN MIRIAM x 1, serosanguinous and holding suction Procedure: None LABS: Blood: Recent Labs 08/07/23 0846 08/06/23 1855 WBC 4.52 3.69* HB 9.4* 10.5* HCT 29.2* 32.2* PLT 107* 97* MCV 84.9 84.1 MCH 27.3 27.4 MCHC 32.2 32.6 RDWCV 15.2* 15.2* MPV 11.2 11.2 Recent Labs 08/07/23 0846 08/07/23 0051 08/06/23 1855 NA 141 143 -- K 4.1 4.4 -- CHLOR 108* 107* -- CO2 22 19* -- BUN 23* 19 -- CREAT 0.52* 0.60 -- GLUC 174* 180* -- CA 9.2 9.4 -- MG 2.0 -- 1.8 P 3.7 -- 5.0* Recent Labs 08/08/23 0547 08/07/23 2054 08/07/23 1641 08/07/23 1101 08/07/23 0737 08/06/23 2032 08/06/23 1857 08/06/23 1603 PCGLUCOSE 206* 147* 192* 153* 189* 195* 190* 155* No results for input(s): CK , CKMB , MB , TROPT in the last 72 hours. No results for input(s): PTSEC , INR , APTT in the last 72 hours. No results for input(s): TBILI , CBILI , AST , ALT , ALKPHOS , TPROT , ALB , AMYLASE , LIPASE in the last 72 hours. No results for input(s): PH , PCO2 , PO2 , HCO3 , BE , LACT in the last 72 hours. Medications: Current Facility-Administered Medications Medication Dose Route Frequency HYDROmorphone 0.2 mg injection (DILAUDID) 0.2 mg INTRAVENOUS q 3 H PRN dilTIAZem 120 mg tab(s) (CARDIZEM) 120 mg ORAL BID 9a/3p pantoprazole DR 20 mg tab(s) (PROTONIX) 20 mg ORAL DAILY (6 AM) senna 8.6 mg tab(s) (SENOKOT) 8.6 mg ORAL AT BEDTIME guaiFENesin 200 mg oral liquid (ROBITUSSIN) 200 mg ORAL q 4 H PRN dexAMETHasone sodium phosphate (PF) 10 mg injection (DECADRON) 10 mg INTRAVENOUS q 8 H NaCl 0.9% iv infusion 0-100 mL/hr INTRAVENOUS CONTINUOUS lactobacillus rhamnosus 10 billion cell (CULTURELLE) capsule 1 capsule ORAL/FEEDING TUBE DAILY polyethylene glycol 3350 17 g packet 17 g ORAL/FEEDING TUBE DAILY PRN lactulose 20 g CUP 20 g ORAL/FEEDING TUBE DAILY PRN bisacodyl 10 mg suppository (DULCOLAX) 10 mg RECTAL DAILY PRN ondansetron (PF) 4 mg injection (ZOFRAN) 4 mg INTRAVENOUS q 6 H PRN prochlorpe (more content not included)... [facility] 08-07-2023 Note HNO ID: [id number] Author: CLIFFORD NARAYAN RN Service: Care Management Author Type: Registered Nurse Type: Care Mgt Initial Assessment Filed: 08/07/2023 13:25 Note Text: CARE MANAGEMENT: ASSESSMENT AND DISCHARGE PLAN SERVICE DATE: August 07, 2023 SERVICE TIME: 12:57 PM PCP: Rosa Silva MD Primary Contact: Extended Emergency Contact Information Primary Emergency Contact: Susan Estrada Relation: Daughter Secondary Emergency Contact: Anika Cedeno Mobile Relation: Sister Admission Status: Observation Insurance Provider: [employer] [place]SE[place] O D SNP Discharge Planning requested by: Per Department Practice Potential Transition Plans Other: See Comment (Return to facility. Possibly Skilled level of care) Advance Directives Current Advance Directive: Health Care Power of [employer] Manager In Chart: Yes Up To Date and Valid: Yes Current Living Arrangements and Support Lives with: Type of Residence: Extended Care Facility Care Facility Name: [facility] Support: Family members, Friends/neighbors, Children, Home care staff How do you manage to accomplish the following: Dependent: Ambulation;Bathe/Shower;Dress;Me als/Meal Prep;Going to the bathroom;Medication Management;Transportation to appointments/community Current Services/Equipment Current Post-Acute Service(s): DME Current DME Type: Continuous Positive Airway Pressure, Electric scooter, Bedside commode Discharge Planning Patient Goal(s): Other: See Comment (Return to [facility]) Mikado of Choice Explained: Mikado of Choice Given: Yes Level of Care Discussed: Other: See Comment ([facility]) Are you interested in bedside delivery of your medications? No not offered on H51 Discharge Planning Participant(s): Children Patient/Family Comments: Daughter Susan Caregiver Assessment: Caregiver is ready, willing and able to meet the patient's needs as recommended by the inter-professional team: Yes Name of Caregiver: Facility Transport at Discharge: Transportation Arrangements: Ambulance Needs Prior to Discharge: Needs Prior to Discharge: To Be Determined;Discharge Transportation Post-Acute Discharge Plan: CM spoke with patient's daughter Susan on the phone. Patient lives in [facility]. She has lived there appx. 1.5 yr. Patient is wanting to return to this facility. Daughter states the facility transported patient to the hospital using her motorized scooter and the scooter is checked in with security along with several bags. Patient will need transport back to the facility. Per medical team patient may be ready for discharge Saturday. PRIYA Leal is hopeful patient can be transported back to facility using scooter. TCC will continue to follow POC for discharge planning. SIGNATURE: Clifford Narayan RN PATIENT NAME: Sandy Bal DATE: August 07, 2023 TIME: 12:57 PM CONTACT #: [id number] [facility] 08-07-2023 Note HNO ID: [id number] Author: FREEMAN WALLACE MD Service: Otolaryngology Author Type: Resident Type: Progress Notes Filed: 08/08/2023 06:52 Note Text: [facility] - HEAD AND NECK SURGERY PROGRESS NOTE PAGE [phone] AFTER 1700 AND ON WEEKENDS Patient Name: Sandy Bal Age: [age] year old Sex: female Date: August 07, 2023 Admission Date: 08/06/2023 Hospital Day: 1 ASSESSMENT/PLAN: Sandy Bal is a 73 year old female who is 1 Day Post-Op from 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 Coughs with swallowing. Throat pain. Otherwise no acute overnight events. 2L NC. Dysphagia due to vagus nerve sacrifice. - Scope today demonstrating watery edema of L arytenoid and AE folds and pyriform sinus. Corpak placed under direct visualization. Decadron 10 mg q8 x3 - Likely will place Corpak pending staff discussion - Analgesia: Tylenol, oxy, tramadol - Antibiotics: Doxy - AC: Lovenox - FEN: Regular - Wound Care: Bacitracin to incisions BID until POD3, Aquaphor afterwards. - Drains: serousanguinous, Strip drains q4h, record output q8h - Dispo: TERRA Wallace, PGY-2, Otolaryngology Service Pager: [phone] Pager: [phone] August 07, 2023 5:22 AM For questions after 5 PM and on weekends, please page [phone]. SUBJECTIVE: No acute events overnight. Pain well-controlled with current regimen. Breathing well on 2L NC. Not tolerating regular diet. Coughs with sips of water. Voice raspy, plan ASSISTANT PRODUCTION MANAGER for swallowing OBJECTIVE: Vitals: 08/06/23 2130 08/06/23 2200 08/06/23 2256 08/07/23 0143 BP: 121/56 119/58 115/66 (!) 115/48 Pulse: 103 102 98 99 Resp: 20 Temp: 37.2 ?C (99 ?F) 36.3 ?C (97.3 ?F) 36.5 ?C (97.7 ?F) TempSrc: Temporal Oral Oral SpO2: 95% 92% 95% 95% Ins AND Outs: Date 08/06/23 07 - 08/07/23 0659 08/07/23 07 - 01/11/24 0659 Shift 8220-2832 2817-1744 7865-4830 24 Hour Total 3054-1976 1923-6708 7957-8651 24 Hour Total INTAKE IV 2900 2900 Volume (mL) (lactated ringers iv infusion) 1700 1700 Volume (mL) (lactated ringers iv infusion) 1000 1000 Volume (mL) (NaCl 0.9% iv infusion) 200 200 Shift Total 2900 2900 OUTPUT Urine 325 325 OR Urine Output 325 325 Tubes 10 10 Drain/Tube Output (Drain/Tube 08/06/23 1756 Domenico Herbert Left Neck) 10 10 Blood 100 100 Estimated Blood loss 100 100 Shift Total 435 435 Weight (kg) Physical Examination: General: No acute distress Neuro: following commands, appropriate Cardiopulm: Well perfused, breathing non-labored, no hoarseness Face: Full and symmetric facial motion, no weakness Neck: soft, incisions c/d/i, no signs of hematoma, seroma Drains: LN MIRIAM x 1, serosanguinous and holding suction Procedure: Flexible laryngoscopy After spraying the bilateral nose with oxymetazoline/lidocaine, the flexible scope was placed in a transnasal fashion through the right nare. The nasal passageways were normal with no signs of polyps or pus. There was no inferior turbinate hypertrophy. No masses were visualized in the nasopharynx, oropharynx, hypopharynx including the pyriform sinuses. The base of tongue showed no gross lesions. The larynx itself showed watery edema of the left arytenoid and AE fold leading into the pyriform sinus. The left vocal fold is immobile in paramedian position. Right vocal fold is hypomobile with poor abduction. Airway is adequate. The vocal cords moved well bilaterally. The immediate subglottis appeared widely patent. Procedure performed by Freeman Wallace MD. LABS: Blood: Recent Labs 08/06/23 1855 WBC 3.69* HB 10.5* HCT 32.2* PLT 97* MCV 84.1 MCH 27.4 MCHC 32.6 RDWCV 15.2* MPV 11.2 Recent Labs 08/07/23 0051 08/06/23 1855 NA 143 -- K 4.4 -- CHLOR 107* -- CO2 19* -- BUN 19 -- CREAT 0.60 -- GLUC 180* -- CA 9.4 -- MG -- 1.8 P -- 5.0* Recent Labs 08/06/23203108/06/23 1857 08/06/23 1603 08/06/23 1045 PCGLUCOSE 195* 190* 155* 130* No results for input(s): CK , CKMB , MB , TROPT in the last 72 hours. No results for input(s): PTSEC , INR , APTT in the last 72 hours. No results for input(s): TBILI , CBILI , AST , ALT , ALKPHOS , TPROT , ALB , AMYLASE , LIPASE in the last 72 hours. No results for input(s): PH , PCO2 , PO2 , HCO3 , BE , LACT in the last 72 hours. Medications: Current Facility-Administered Medications Medication Dose Route Frequency HYDROmorphone 0.2 mg injection (DILAUDID) 0.2 mg INTRAVENOUS q 3 H PRN NaCl 0.9% iv infusion 0-100 mL/hr INTRAVENOUS CONTINUOUS pantoprazole 20 mg oral liquid (PROTONIX) 20 mg ORAL/FEEDING TUBE DAILY docusate 100 mg oral liquid (COLACE) 100 mg ORAL/FEEDING TUBE BID sennosides 8.8 mg oral liquid (SENNA) 8.8 mg ORAL/FEEDING TUBE AT BEDTIME lactobacillus rhamnosus 10 billion cell (CULTURELLE) capsule 1 capsule ORAL/FEEDING TUBE DAILY polyethylene glycol 3350 17 g packet 17 g ORAL/FEEDING TUBE (more content not included)... [facility] 08-06-2023 Note HNO ID: [id number] Author: ALYSSA DUBON MD Service: ? Author Type: Resident Type: Anesthesia Procedure Notes Filed: 08/06/2023 13:24 Note Text: ANESTHESIOLOGY PROCEDURE NOTE Airway General Information Procedure Start Time/Medication Administration: 08/06/2023 12:45 PM Patient location during procedure: OR Timeout Performed Pre-procedure: timeout performed Consent Obtained: Yes Patient identity confirmed: arm band and patient Staffing Anesthesiologist: Ashlyn Amador MD Resident: Alyssa Dubon MD Performed by: resident Indications and Patient Condition Indications for airway management: anesthesia Preoxygenated: yes anesthesia circuit Patient position: sniffing Method: asleep Difficult Mask: No Final Airway Details Final airway type: endotracheal airway Final Endotracheal Airway: ETT Cuffed: yes Successful intubation technique: video laryngoscopy Devices used: Santiago Endotracheal tube insertion site: oral Blade size: #3 ETT size (mm): 7.0 Measured from: lips Measurement (cm): 20 Placement verified by: capnometry Cormack-Lehane Classification: grade I - full view of glottis Number of attempts at approach: 1 Airway not difficult Comments NIMs ETT SIGNATURE: Alyssa Dubon MD PATIENT NAME: Sandy Bal DATE: August 06, 2023 TIME: 1:23 PM CSN: [id number] [facility] 08-06-2023 Note HNO ID: [id number] Author: YOLANDA TERRELL APRN.CHECK PROCESSOR Service: ? Author Type: Nurse Manager Mail Type: Anesthesia Procedure Notes Filed: 08/06/2023 13:06 Note Text: ANESTHESIOLOGY PROCEDURE NOTE PIV General Information Procedure Start Time/Medication Administration: 08/06/2023 1:05 PM Patient Location: OR Staffing CHECK PROCESSOR: Yolanda Terrell APRN.CHECK PROCESSOR Performed by: anesthesiologist Preparation Sterility Preparation: hand hygiene performed prior to procedure, surgical cap used, mask used, skin prep agent completely dried prior to procedure Site Prep: alcohol Procedure Details Indication: need for IV access Needle Size/Type: 18 gauge angiocath Orientation: Left Location: Hand Imaging Guidance Used: No SIGNATURE: Yolanda Terrell APRN.CRNA PATIENT NAME: Sandy Bal DATE: August 06, 2023 TIME: 1:05 PM CSN: [id number] [facility] 06-27-2023 Note HNO ID: [id number] Author: Juan Jose Gutierrez MD Service: ? Author Type: Physician Type: Progress Notes Filed: 06/27/2023 4:53 PM Note Text: [facility] Consult This consult was requested by [...] HR BEFORE MEAL. 30 capsule 11 Insulin Chaffee, Disposable, (PEN NEEDLE) 29 x 1/2 ndle Use daily for insulin as directed. 100 Each 1 sitaGLIPtin (JANUVI (more content not included)... [facility] 06-27-2023 Miscellaneous Notes AMBULATORY PATIENT EDUCATION [...] In Department: OTOLARYNGOLOGY documented in this encounter [facility] 06-27-2023 Note HNO ID: [id number] Author: Cate Negrete Service: ? Author Type: ? Type: Progress Notes Filed: 06/27/2023 4:53 PM Note Text: Tobacco Use: Never Was smoking cessation packet given? N/A - Patient is a non-smoker or quit >1 year ago. Was a referral initiated?N/A Patient is a non-smoker [facility] 06-27-2023 History of Present illness Narrative [...] HR BEFORE MEAL. 30 capsule 11 Insulin Chaffee, Disposable, (PEN NEEDLE) 29 x 1/2 ndle [...] PER DAY. DX: 250.00. INSULIN DEP: YES. [employer]. [employer] 0 diltiazem CD (CARTIA XT) 180 mg [...] (FLONASE) 50 mcg/actuation nasal spray Use 1 Eminence in each nostril daily at bedtime. 1 [...] (3 mL) Inject subcutaneously. oxycodone HCl,terephth/aspirin (OXYCODONE NMS-[id number]-JUC ORAL) Take 10 mg by mouth every [...] qDay, # 60 cap(s), 0 Refill(s), Pharmacy: [facility] levoFLOXacin (LEVAQUIN) 750 mg tablet NOVOLOG [...] Decision Making Level: 1 - N/A MD Linda Koe Attestation: By signing my name below, I, [...] is a non-smoker documented in this encounter [facility] 06-26-2023 Note HNO ID: [id number] Author: Blossom Trejo RT(R) Service: ? Author Type: Client Technologies Specialist Type: Progress Notes Filed: 06/26/2023 4:18 PM [...] DATE: June 26, 2023 TIME: 4:17 PM [facility] 06-26-2023 History of Present illness Narrative [...] TIME: 4:17 PM documented in this encounter [facility] 06-18-2023 Miscellaneous Notes I called Pt and told her she may schedule the CT neck and have her a number to call. I also asked her to not take metformin the day before the CT scan and not restarting until we document her kidney function is good. Hang Tanner. claudia Anand M.D. Endocrinology & Metabolism [place] documented in this encounter [facility] 06-10-2023 Miscellaneous Notes Attempted to reach patient to discuss plan of care going forward from Dr. Hubbard. Will attempt to reach patient again. NISHA Easley Endocrine Surgery documented in this encounter [facility] 06-07-2023 Note HNO ID: [id number] Author: Hang Smith MD Service: ? Author Type: Physician Type: [...] limb movement dis (more content not included)... [facility] 06-07-2023 History of Present illness Narrative [...] RMVL TUBE OVARY 1988 Hysterectomy, CHICA, appy Social History Tobacco Use [...] for fever (specify temp.). oxycodone HCl,terephth/aspirin (OXYCODONE LNI-[id number]-UDH ORAL) Take 10 mg by mouth every [...] mg by mouth daily with breakfast.) Insulin Chaffee, Disposable, (PEN NEEDLE) 29 x 1/2 ndle Use daily for insulin as directed. diltiazem CD (CARTIA XT) 180 mg 24 hr capsule Take 2 capsules by mouth once daily. pregabalin (LYRICA) 100 mg capsule Take 1 capsule by mouth three times daily. fluticasone (FLONASE) 50 mcg/actuation nasal spray Use 1 Eminence in each nostril daily at bedtime. ALBUTEROL [...] qDay, # 60 cap(s), 0 Refill(s), Pharmacy: [facility] levoFLOXacin (LEVAQUIN) 750 mg tablet ipratropium-albuterol [...] 250.00. INSULIN DEP: YES. [employer] Diabetic Supp[employer]. [employer] pravastatin 80 mg tablet Take 1 tablet [...] which included preparing to see the patient, rykt-[id number]-fwdk patient care, completing clinical documentation, obtaining and/or reviewing separately obtained history, performing a medically appropriate examination, counseling and educating the patient/family/caregiver, and communicating with other HCPs (not separately reported). MD josefa Santana documented in this encounter [facility] 05-01-2023 Miscellaneous Notes Susan Estrada (Daughter) called in regarding their mother. Susan would like to know more information regarding her mothers' recent visit on 04/25. She also wanted to know more information on the appointment that she's scheduled for on 06/07 Good call back: [phone] documented in this encounter [facility] 04-26-2023 Miscellaneous Notes Please note, patient will hold Xarelto on 04/27/23 in anticipation of biopsy early next week. STAFF-INITIATED RADIOLOGY BIOPSY / ASPIRATION / DRAIN REQUEST FORM Date: April 26, 2023 Time: 4:05 PM PATIENT CONTACT INFORMATION: [phone] SCHEDULING: [facility] (Abdominal / Thoracic / [...] THAT IS THE BASIS OF THE REQUEST: Date: 04/25/23 IMAGING: [facility] (If the imaging was obtained outside the [facility] system, PLEASE upload for review prior to approval.) Note to all persons requesting biopsies: All biopsy requests will be scheduled as quickly as possible, based on the clinical urgency, availability of appointment times, the need to hold anti-thrombolytic therapy (aspirin and other blood thinners) and the patient s schedule, including the need for an available straddle bug driver. If a percutaneous biopsy or drainage is not felt to be safe or an alternative method for establishing a diagnosis is possible, this will be discussed directly with the requesting physician. documented in this encounter [facility] 04-25-2023 Note HNO ID: [id number] Author: Sarah Hubbard MD Service: ? Author Type: Physician Type: Progress Notes Filed: 04/25/2023 1:09 PM Note Text: Sarah Hubbard M.D. Department of Endocrine Surgery Endocrinology Metabolism [place] [facility] [address], [place] [address] ENDOCRINE SURGERY NEW PATIENT VISIT NAME: Sandy Bal CLINIC NO: [id number] : 1950 History of Present Illness: Sandy [...] of 3 separate left thyroid nodules - [place] 3 and 4. No molecular testing was [...] Procedure Laterality Date BX BREAST PERC VACUUM/ROTN 8/23/10 Benign COLONOSCOPY FLX DX W/COLLJ SPEC WHEN [...] CAPSULE DAILY 1/2 HR BEFORE MEAL. Insulin Chaffee, Disposable, (PEN NEEDLE) 29 x 1/2 ndle [...] 250.00. INSULIN DEP: YES. [employer] Diabetic Supp[employer]. [email or web address] diltiazem CD (CARTIA XT) 180 mg 24 hr capsule Take 2 capsules by mouth once daily. prega (more content not included)... [facility] 04-16-2023 Miscellaneous Notes 04/17/2023 - LVM for Anika Cedeno Appointment 04/25 FNA - 02/25/23 Thyroid US - 03/01/23 documented in this encounter [facility] 06-20-2021 Note . MICRO - Microbiology [...] Locations *1: This test was performed at: [address] ([place]) 06-18-2021 Note . MICRO - Microbiology PROCEDURE: [...] Locations *1: This test was performed at: [address] [facility] ([place]) 06-16-2021 Note ORIGINAL PROCEDURE: 1. PICC placement with fluoroscopy and ultrasound guidance SUPERVISOR PIPELINE MAINTENANCE: Sheri Maldonado PA-C CLINICAL STATEMENT: Left great [...] Sign Date: 06/16/2021 4:14:24 PM Ordering Provider: KALYAN [facility]ly [facility] ([place]) 06-16-2021 Note . MICRO - Microbiology PROCEDURE: [...] Locations *1: This test was performed at: [address], [address] , [facility] ([place]) 06-15-2021 Note . MICRO - Microbiology PROCEDURE: [...] Locations *1: This test was performed at: [facility], [address] [place] [address], [facility] , [facility] ([place]) documented as of this encounter (statuses as of 04/17/2023) [facility] History of Past illness Narrative* Problem [...] of this encounter (statuses as of 04/27/2023) [facility] of Past illness Narrative* Problem [...] of this encounter (statuses as of 05/04/2023) [facility] of Past illness Narrative* Problem [...] of this encounter (statuses as of 06/10/2023) [facility] of Past illness Narrative* Problem [...] of this encounter (statuses as of 06/11/2023) [facility] of Past illness Narrative* Problem [...] of this encounter (statuses as of 06/19/2023) [facility] of Past illness Narrative* Problem [...] of this encounter (statuses as of 06/27/2023) [facility] of Past illness Narrative* Problem [...] of this encounter (statuses as of 06/28/2023) [facility] Past illness Narrative* Problem [...] of this encounter (statuses as of 06/28/2023) [facility] Neck mass- Primary Swelling, mass, or lump in head and neck documented in this encounter [facility] Diagnosis 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 and other parts of nervous system documented [facility] this encounter [facility] Diagnosis 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 and other parts of nervous system documented [facility] this encounter [facility] 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 and other parts of nervous system documented in this encounter [facility] Diagnosis Thyroid cancer (HCC) Malignant neoplasm of thyroid gland documented in this encounter [facility] Summary Purpose Family History No Family History Records FoundNo Family History Records Found Advance Directives No Advanced Directives Records FoundDocuments on File Type Date Recorded Patient Underwriting Technician Expl anation Advance Directive(s) 04/29/2023 11:52 AM Documents on File Type Date Recorded Patient Underwriting Technician Expl anation Advance Directive(s) 04/29/2023 11:52 AM Reason for Referral Specialty Diagnoses / Procedures Referred By Contac t Referred To Contact CT IMAGING Diagnoses Follicular neoplasm of thyroid Procedures CT NECK SOFT TISSUE W IVCON CT SOFT TISSUE NECK W/CONTRAST MATERIAL Hang Smith MD [address] [facility] [address] [place] [address] [facility] [place] [address] Referral ID Status Reason Start Date Expiration Date Visits Requested Visits Authorized [id number] Pending Review Auto-Generat ed Referral 3 07/17/2024 1 1 Referral ID Status Reason Start Date Expiration Date V isits Requested Visits Authorized [id number] Closed Auto-Generate d Referral 06/18/2023 07/17/2024 1 1 Specialty Diagnoses / Procedures Referred By Contac t Referred To Contact Diagnoses Thyroid cancer (HCC) Procedures REFER TO PACC - PRE ANESTHESIA CONSULTATION CLINIC OFFICE/OUTPATIENT [facility] MDM 60-74 MINUTES Juan Jose Gutierrez MD [address] [place] [address] Referral ID Status Reason Start Date Expiration Date Visits Requested Visits Authorized [id number] Pending Review PCP Requested Referral 3 06/26/2024 1 1 Specialty Diagnoses / Procedures Referred By Contac t [facility]erred [facility] Diagnoses Thyroid cancer (HCC) Procedures ECG COMPLETE ECG ROUTINE ECG W/LEAST 12 LDS W/I&R Juan Jose Gutierrez MD [address] [place] [address] [facility] [place] [address] [place] [address] Referral ID Status Reason Start Date Expiration Date Visits Requested Visits Authorized [id number] Pending Review Auto-Generat ed Referral 3 06/26/2024 1 1 Additional Source Comments INFORMATION SOURCE (unrecogn ized section and content) DATE CREATED AUTHOR AUTHOR'S ORGANIZ ATION 08/11/2023 [facility] Source Comments (unrecognize d section and content) In the event this informatio n is protected by the Federal Confidentiality of Alcohol and Drug Abuse Patient Records regulations: The Federal rules restrict any use of the information to criminally investigate or prosecute any alcohol or drug abuse patient.[facility] the event this information is protected by the Federal Confidentiality of Alcohol and Drug Abuse Patient Records regulations: The Federal rules restrict any use of the information to criminally investigate or prosecute any alcohol or drug abuse patient.[facility] the event this information is protected by the Federal Confidentiality of Alcohol and Drug Abuse Patient Records regulations: The Federal rules restrict any use of the information to criminally investigate or prosecute any alcohol or drug abuse patient.[facility] the event this information is protected by the Federal Confidentiality of Alcohol and Drug Abuse Patient Records regulations: The Federal rules restrict any use of the information to criminally investigate or prosecute any alcohol or drug abuse patient.[facility] the event this information is protected by the Federal Confidentiality of Alcohol and Drug Abuse Patient Records regulations: The Federal rules restrict any use of the information to criminally investigate or prosecute any alcohol or drug abuse patient.[facility] the event this information is protected by the Federal Confidentiality of Alcohol and Drug Abuse Patient Records regulations: The Federal rules restrict any use of the information to criminally investigate or prosecute any alcohol or drug abuse patient.[facility] the event this information is protected by the Federal Confidentiality of Alcohol and Drug Abuse Patient Records regulations: The Federal rules restrict any use of the information to criminally investigate or prosecute any alcohol or drug abuse patient.[facility] the event this information is protected by the Federal Confidentiality of Alcohol and Drug Abuse Patient Records regulations: The Federal rules restrict any use of the information to criminally investigate or prosecute any alcohol or drug abuse patient.[facility] the event this information is protected by the Federal Confidentiality of Alcohol and Drug Abuse Patient Records regulations: The Federal rules restrict any use of the information to criminally investigate or prosecute any alcohol or drug abuse patient.[facility] Reason for Visit (unrecogniz ed section and content) Reason Comments Biopsy Request Reason Comments Patient Question Reason Comments Consult Specialty Diagnoses / Procedures Referred By Grady t Referred To Contact Endocrinology / ENDOCRINOLOGY Diagnoses Thyroid Cancer Procedures [facility] Petros Spicer MD [address] [address] Hang Smith MD [address] [address] Referral ID Status Reason Start Date Expiration Date V isits Requested Visits Authorized [id number] Outside PCP 06/07/2023 08/06/2023 1 1 Reason Comments Patient Update Reason Comments Radiology CT Specialty Diagnoses / Procedures Referred By Grady t Referred To Contact CT IMAGING Diagnoses Follicular neoplasm of thyroid Procedures CT NECK SOFT TISSUE W IVCON CT SOFT TISSUE NECK W/CONTRAST MATERIAL Hang Smiht MD [address] [address] [place] [address] Referral ID Status Reason Start Date Expiration Date V isits Requested Visits Authorized [id number] Closed Auto-Generate d Referral 06/18/2023 07/17/2024 1 [...] HIGH MDM 40-54 MIN Rosa Silva MD [address] [place] [address] Juan Jose Gutierrez MD [address] [place] [address] Referral ID Status Reason Start Date Expiration Date Visits Requested Visits Authorized [id number] Authorized PCP Requested Referral 3 06/11/2024 99 99 Care Teams (unrecognized sec tion and content) Die Maintenance Relationship Specialty [place] [address] [place], [place] [id number] PCP - General Gerontology 05/02/23 Die Maintenance Relationship Specialty [place] [address] [place] [address] PCP - General Gerontology 05/02/23 Die Maintenance Relationship Specialty [place] [address] [place], [place] [id number] PCP - General Gerontology 05/02/23 Die Maintenance Relationship Specialty [place] [address] [place], [place] [id number] PCP - General Gerontology 05/02/23 FOR RECORDS [...] BE BASED ON THE PRIMARY CLINICAL RECORDS. [employer] [facility]. provides no warranty or guarantee of the accuracy or completeness of information in this document.
[2023-08-13 09:29] LABS: Anion Gap 6 (5-15); BUN 34 mg/dL (7-18); BUN/Creat Ratio 53.5 RATIO (10-20); Calcium,Total 9.5 mg/dL (8.5-10.1); Chloride 103 mmol/L (98-107); Creatinine, Serum 0.64 mg/dL (0.55-1.02); EST Glomerular Filtration Rate 97 mL/min (>60); Est Glom Filt Rate - Afr Amer 117 mL/min (>60); Glucose 151 mg/dL (74-106); Magnesium 2.5 mg/dL (1.6-2.6); Potassium 3.9 mmol/L (3.5-5.1); Sodium Level 135 mmol/L (136-145)
[2023-08-14 04:32] LABS: Iron 45 ug/dL (50-170)
== END ==
LOC: OLS.SW 06:45
PROVIDERS: PCP Internal Medicine; Visit Provider Internal Medicine
DX: E11.22 Type 2 diabetes mellitus with diabetic chronic kidney disease (principal); N18.32 Chronic kidney disease, stage 3b; C73 Malignant neoplasm of thyroid gland; I48.91 Unspecified atrial fibrillation; D64.9 Anemia, unspecified
CPT/HCPCS: 36415; 80048; 83540; 83735; 85027

== ENCOUNTER → 2023-08-19 | Outpatient (REF) | payer MEDICARE, MEDICAID, SELFPAY ==
[2023-08-19 09:01] LABS: Absolute Lymphocyte Count 1.86 X10^3/uL (0.83-4.51); Absolute Neutrophil Count 6.4 X10^3/uL (2.0-7.7); Basophil# 0.06 X10^3/uL; Basophil% 0.6 % (0-1); Eosinophils% 2.1 % (0-5); Hematocrit 33.1 % (37-47); Hemoglobin 10.7 g/dL (12.0-15.0); Lymphocyte # 1.86 X10^3/ul (0.83-4.51); Lymphocyte % 19.8 % (19-41); Mean Corp Hgb Conc 32.3 g/dL (32-36); Mean Corpuscular Hgb 27.6 pg (27.0-32.0); Mean Corpuscular Volume 85.5 fL (81-99); Mean Platelet Vol. 11.6 fl (6.2-12.0); Monocyte# 0.89 X10^3/uL; Monocyte% 9.5 % (0-10); NRBC Flagged by Analyzer 0 % (0-5); Neutrophil # 6.37 X10^3/uL (2.7-7.7); Neutrophil % 67.7 % (47-70); Platelet Count 192 K/mm3 (150-450); RBC Distribution Width CV 15.7 % (11.6-14.6); RBC Distribution Width SD 48.5 fl (35.1-43.9); Red Blood Count 3.87 M/mm3 (4.2-5.4); White Blood Count 9.4 K/mm3 (4.4-11.0)
[2023-08-19 10:12] LABS: Anion Gap 8 (5-15); BUN 16 mg/dL (7-18); BUN/Creat Ratio 24.5 RATIO (10-20); Calcium,Total 9.3 mg/dL (8.5-10.1); Chloride 106 mmol/L (98-107); Creatinine, Serum 0.65 mg/dL (0.55-1.02); EST Glomerular Filtration Rate 94 mL/min (>60); Est Glom Filt Rate - Afr Amer 113 mL/min (>60); Glucose 185 mg/dL (74-106); Potassium 3.6 mmol/L (3.5-5.1); Sodium Level 140 mmol/L (136-145)
== END ==
LOC: OLS.SW 04:00
PROVIDERS: PCP Internal Medicine; Referring Provider Internal Medicine; Visit Provider Internal Medicine
DX: I48.91 Unspecified atrial fibrillation (principal); I50.9 Heart failure, unspecified
CPT/HCPCS: 36415; 80048; 83735; 85025

== ENCOUNTER → 2023-08-27 | Outpatient (REF) | payer MEDICARE, MEDICAID, SELFPAY ==
[2023-08-27 08:43] LABS: Absolute Lymphocyte Count 1.31 X10^3/uL (0.83-4.51); Absolute Neutrophil Count 3.5 X10^3/uL (2.0-7.7); Basophil# 0.02 X10^3/uL; Basophil% 0.4 % (0-1); Eosinophil# 0.18 X10^3/uL; Eosinophils% 3.3 % (0-5); Hematocrit 30.3 % (37-47); Hemoglobin 9.5 g/dL (12.0-15.0); Lymphocyte # 1.31 X10^3/ul (0.83-4.51); Lymphocyte % 24.1 % (19-41); Mean Corp Hgb Conc 31.4 g/dL (32-36); Mean Corpuscular Hgb 27.2 pg (27.0-32.0); Mean Corpuscular Volume 86.8 fL (81-99); Mean Platelet Vol. 10.8 fl (6.2-12.0); Monocyte# 0.43 X10^3/uL; Monocyte% 7.9 % (0-10); NRBC Flagged by Analyzer 0 % (0-5); Neutrophil # 3.47 X10^3/uL (2.7-7.7); Neutrophil % 63.9 % (47-70); Platelet Count 134 K/mm3 (150-450); RBC Distribution Width CV 15.5 % (11.6-14.6); RBC Distribution Width SD 49.1 fl (35.1-43.9); Red Blood Count 3.49 M/mm3 (4.2-5.4); White Blood Count 5.4 K/mm3 (4.4-11.0)
[2023-08-27 09:17] LABS: Anion Gap 4 (5-15); BUN 23 mg/dL (7-18); Calcium,Total 9.2 mg/dL (8.5-10.1); Chloride 107 mmol/L (98-107); Creatinine, Serum 0.59 mg/dL (0.55-1.02); EST Glomerular Filtration Rate 105 mL/min (>60); Est Glom Filt Rate - Afr Amer 128 mL/min (>60); Glucose 126 mg/dL (74-106); Magnesium 2.2 mg/dL (1.6-2.6); Potassium 3.9 mmol/L (3.5-5.1); Sodium Level 140 mmol/L (136-145)
== END ==
LOC: OLS.SW 05:00
PROVIDERS: PCP Internal Medicine; Visit Provider Internal Medicine
DX: D64.9 Anemia, unspecified (principal); D69.6 Thrombocytopenia, unspecified; I48.0 Paroxysmal atrial fibrillation
CPT/HCPCS: 36415; 80048; 83735; 85025

== ENCOUNTER → 2023-09-03 | Outpatient (REF) | payer MEDICARE, MEDICAID, SELFPAY ==
--- OUTSIDE RECORDS SUMMARY | 2023-09-03 04:01 | XMS RPT_ITS | CCD ---
Author Name Unknown Address [address] [place] [address] Organization [facility] Care Team Providers Care Strike Operations Officer Name Role Phone Unavailable Primary Care Provider Unavailrashad Silva MD, Rosa Vicente Primary Care Provider [phone] Shira SNYDER, Rosa Vicente Primary Care Provider CEM AVILES Attending Unavailable GUDLA, ROSA D Primary Care Unavailable JUAN JOSE GUTIERREZ Referring Unavailable SAVANNAH SHARPE Attending Unavailable GUDLA, ROSA D Primary Care Unavailable JUAN JOSE GUTIERREZ Referring Unavailable GUDLA, ROSA D Primary Care Unavailable JUAN JOSE GUTIERREZ Attending Unavailable JUAN JOSE GUTIERREZ Referring Unavailable GUDLA, ROSA D Primary Care Unavailable JUAN JOSE GUTIERREZ Referring Unavailable GUDLA, ROSA D Primary Care Unavailable JUAN JOSE GUTIERREZ Referring Unavailable GUDLA, ROSA D Primary Care Unavailable SARAH HUBBARD Referring Unavailable JUAN JOSE GUTIERREZ Attending Unavailable GUDLA, ROSA D Primary Care Unavailable JUAN JOSE GUTIERREZ Admitting Unavailable JUAN JOSE GUTIERREZ Attending Unavailable HANG SMITH Referring Unavai lable GUDLA, ROSA D Primary Care Unavailable HANG SMITH Referring Unavai lable GUDLA, ROSA D Primary Care Unavailable PETROS ORTIZ Referring Unavailable DEL HANG RENO Attending Unavai lable GUDLA, ROSA D Primary Care Unavailable SARAH HUBBARD Referring Unavailable BATSHEVA AZAR Referring Unavailable SARAH HUBBARD Attending Unavailable CELIA TAVERAS Attending Unavailable CELIA TAVERAS Admitting Unavailable GUDLA, ROSA D Primary Care Unavailable Allergies Allergy Classification Reported Allergen(s) Allergy Type Date of Onset Reaction(s) Facility (13 sources) Latex; Translations: [LATEX, NATURAL RUBBER] Drug Allergy 4 Itching [facility] Work Phone: (13 sources) Penicillins; Translations: [PENICILLINS] Propensity to adverse reactions 7 Anaphylaxis [facility] Work Phone: (13 sources) Salicylate product; Translations: [SALICYLATES] Propensity to adverse reactions 7 Hives [facility] Work Phone: (13 sources) Sulfonamides (Antibiotic); Translations: [SULFA (SULFONAMIDE ANTIBIOTICS)] Propensity to adverse reactions 7 Anaphylaxis [facility] Work Phone: (12 sources) Aspirin; Translations: [ASPIRIN] Drug Allergy 1 Unknown [facility] Medications Completed/Discontinued Medications Medication Drug Class(es) Dates Sig (Normalized) Sig (Original) acetaminophen 325 mg oral tablet (9 sources) take 2 tablets by mouth every four hours as needed acetaminophen (TYLENOL) 325 mg tablet Take 650 mg by mouth every 4 hours as needed for fever (specify temp.). 0 Active Problems Active Problems Problem Classification Problem Date Documented Da te Episodic/Chronic Anxiety disorders (4 sources) Mixed anxiety and depressive disorder; Translations: [Anxiety disorder, unspecified] Onset: 12-26-2006 08-07-2023 Chronic Asthma (13 sources) Unspecified asthma, uncomplicated; Translations: [Asthma, unspecified type, unspecified] Onset: 12-26-2006 12-26-2006 Chronic Cancer of thyroid (7 sources) Malignant tumor of thyroid gland; Translations: [Malignant neoplasm of thyroid gland] Onset: 08-06-2023 06-27-2023 Chronic Cardiac dysrhythmias (4 sources) Atrial fibrillation; Translations: [Unspecified atrial fibrillation] Onset: 08-02-2023 08-07-2023 Chronic Deficiency and other anemia (3 sources) Iron deficiency anemia; Translations: [Iron deficiency anemia, unspecified] Onset: 08-02-2023 08-07-2023 Episodic Deficiency and other anemia (1 source) Iron deficiency anemia, unspecified; Translations: [Iron deficiency anemia, unspecified iron deficiency anemia type] Onset: 08-02-2023 Episodic Diabetes mellitus with complications (13 sources) Type 2 diabetes mellitus; Translations: [Type II or unspecified type diabetes mellitus without mention of complication, uncontrolled] Onset: 12-26-2006 02-02-2014 Chronic Disorders of lipid metabolism (12 sources) Hyperlipidemia; Translations: [Hyperlipidemia, unspecified] Onset: 07-01-2007 07-01-2007 Chronic Essential hypertension (13 sources) Benign essential hypertension; Translations: [Essential (primary) hypertension] Onset: 11-01-2006 11-01-2006 Chronic Genitourinary symptoms and ill-defined conditions (20 sources) Urge incontinence of urine; Translations: [Urge [...] system] Onset: 06-26-2023 06-10-2023 Episodic Noninfectious gastroenteritis (4 sources) Collagenous colitis; Translations: [Collagenous colitis] Onset: 08-02-2023 08-07-2023 Chronic Nutritional deficiencies (12 sources) Vitamin D deficiency; Translations: [Vitamin D deficiency, unspecified] Onset: 07-02-2007 07-02-2007 Chronic Osteoarthritis (12 sources) Degenerative joint disease involving multiple joints; Translations: [Polyosteoarthritis , unspecified] Onset: 12-26-2006 12-26-2006 Chronic Osteoporosis (13 sources) Osteoporosis; Translations: [Age-related osteoporosis without current pathological fracture] Onset: 02-12-2013 02-12-2013 Chronic Other aftercare (3 sources) Insulin dose changed; Translations: [MCC (current) use of insulin] Onset: 08-09-2023 08-09-2023 Episodic Other aftercare (1 source) MCC (current) use of insulin; Translations: [Type 2 diabetes mellitus with diabetic polyneuropathy, with long-term current use of insulin (HCC)] Onset: 08-02-2023 Episodic Other connective tissue disease (3 sources) Fibromyalgia; Translations: [Fibromyalgia] Onset: 08-02-2023 4 Episodic Other connective tissue disease (1 source) Fibromyalgia; Translations: [Fibromyalgia] Onset: 08-02-2023 Episodic Other gastrointestinal disorders (4 sources) Oropharyngeal dysphagia; Translations: [Dysphagia, oropharyngeal phase] Onset: 08-07-2023 08-29-2023 Episodic Other nervous system disorders (12 sources) Critical illness polyneuropathy; Translations: [Critical illness polyneuropathy] Onset: 10-27-2006 07-24-2021 Chronic Other nutritional; endocrine; and metabolic disorders (12 sources) Morbid obesity; Translations: [Morbid (severe) obesity due to excess calories] Onset: 08-23-2011 08-23-2011 Chronic Other nutritional; endocrine; and metabolic disorders (11 sources) Body mass index 40+ - severely obese; Translations: [Morbid (severe) obesity due to excess calories] Onset: 04-25-2023 04-25-2023 Chronic Other nutritional; endocrine; and metabolic disorders (2 sources) Morbid (severe) obesity due to excess calories; Translations: [Morbid obesity (HCC)] Onset: 08-23-2011 Chronic Other skin disorders (1 source) Mass of neck; Translations: [Localized swelling, mass and lump, neck] 04-26-2023 Episodic Other upper respiratory disease (12 sources) Chronic rhinitis; Translations: [Chronic rhinitis] Onset: 12-26-2006 12-26-2006 Chronic Phlebitis; thrombophlebitis and thromboembolism (4 sources) H/O: Deep vein thrombosis; Translations: [Personal history of other venous thrombosis and embolism] Onset: 08-02-2023 08-07-2023 Episodic Residual codes; unclassified (12 sources) Obstructive sleep apnea syndrome; Translations: [Obstructive sleep apnea (adult) (pediatric)] Onset: 11-01-2006 07-24-2021 Chronic Residual codes; unclassified (12 sources) Periodic limb movement disorder; Translations: [Periodic [...] Documented Date Episodic/Chronic Calculus of urinary tract (12 sources) Kidney stone; Translations: [Calculus of kidney] Onset: 08-23-2011 08-23-2011 Episodic Headache; including migraine (12 sources) Headache; Translations: [Headache] Onset: 12-26-2006 12-26-2006 Episodic Other diseases of veins and lymphatics (12 sources) Vascular insufficiency; Translations: [Venous insufficiency (chronic) (peripheral)] Onset: 07-05-2011 07-05-2011 Episodic Other diseases of veins and lymphatics (1 source) Venous insufficiency (chronic) (peripheral); Translations: [Venous insufficiency] Onset: 07-05-2011 Episodic Other skin disorders (1 source) Localized swelling, mass and lump, neck; Translations: [Neck mass] Onset: 05-24-2023 Episodic Spondylosis; intervertebral disc disorders; other back problems (13 sources) Low back pain; Translations: [Lumbago] Onset: 12-26-2006 07-24-2021 Episodic Results Test Name Value Interpretation Reference Range Facil ity Vital Signs Date Time Vital Sign Value Performing Clinician Chase bustamante 08-29-2023 12:54-0500 Body temperature 97 [degF] Savannah Sharpe MD Work Phone: [facility] 08-29-2023 12:54-0500 Diastolic blood pressure 58 mm[Hg] Savannah Sharpe MD Work Phone: [facility] 08-29-2023 12:54-0500 Heart rate 94 /min Savannah Sharpe MD Work Phone: [facility] 08-29-2023 12:54-0500 Respiratory rate 18 /min Savannah Sharpe MD Work Phone: [facility] 08-29-2023 12:54-0500 SaO2% (BldA) [Mass fraction] 96 % Savannah Sharpe MD Work Phone: [facility] 08-29-2023 12:54-0500 Systolic blood pressure 136 mm[Hg] Savannah Sharpe MD Work Phone: [facility] 06-07-2023 08:24-0500 Body height 157.5 cm Hang Smith MD Work Phone: [facility] 06-07-2023 08:24-0500 Body weight 97.07 kg Hang Smith MD Work Phone: [facility] 06-07-2023 08:24-0500 Diastolic blood pressure 53 mm[Hg] Hang Smith MD Work Phone: [facility] 06-07-2023 08:24-0500 Heart rate 92 /min Hang Smith MD Work Phone: [facility] 06-07-2023 08:24-0500 Systolic blood pressure 125 mm[Hg] Hang Smith MD Work Phone: [facility] Encounters Encounter Date Encounter Type Care Provider Facility Start: 08-30-2023 Telephone encounter Savannah Sharpe MD Work Phone: Radiation Oncology Procedures Date Procedure Procedure Detail Performing Clinician Start: 06-26-2023 Ct soft tissue neck w/contrast material Hang Smith MD Work Phone: Start: 06-28-2005 Colonoscopy Sarah Hubbard MD Work Phone: Plan of Treatment Date Care Activity Detail Author Start: 06-07-2024 BP Controlled (<130/80) BP Controlle d (<130/80) [facility] Start: 07-29-2023 Advance Directive Discussion Advance Directive Discussion [facility] Start: 06-27-2023 End: 09-26-2023 Basic metabolic 2000 panel - Serum or Plasma BASIC METABOLIC PNL Lab Routine Thyroid cancer (HCC) Expected: 06/27/2023, Expires: 09/26/2023 [facility] Work Phone: Immunizations Immunization Date Immunization Notes Care Provider Fa cili 06-21-2021 influenza virus vacc ine, unspecified formulation Sarah Hubbard MD Work Phone: [facility] 05-09-2018 influenza virus vacc ine, unspecified formulation Sarah Hubbard MD Work Phone: [facility] 05-13-2014 influenza, seasonal, injectable Sarah Hubbard MD Work Phone: [facility] 05-15-2013 influenza virus vacc ine, unspecified formulation Sarah Hubbard MD Work Phone: [facility] Work Phone: 11-08-2012 pneumococcal polysaccharide vaccine, 23 valent Sarah Hubbard MD Work Phone: [facility] 05-12-2012 influenza virus vacc ine, unspecified formulation Sarah Hubbard MD Work Phone: [facility] Work Phone: 05-16-2011 influenza virus vacc ine, unspecified formulation Sarah Hubbard MD Work Phone: [facility] Work Phone: 11-04-2008 tetanus and diphther ia toxoids, adsorbed, preservative free, for adult use (2 Lf of tetanus toxoid and 2 Lf of diphtheria toxoid) Sarah Hubbard MD Work Phone: [facility] Work Phone: 09-02-2008 influenza virus vacc ine, unspecified formulation Sarah Hubbard MD Work Phone: [facility] Work Phone: 06-26-2007 influenza virus vacc ine, unspecified formulation Sarah Hubbard MD Work Phone: [facility] Work Phone: 07-29-1994 pneumococcal polysaccharide vaccine, 23 valent aSrah Hubbard MD Work Phone: [facility] Work Phone: Payers Date Payer Category Payer Medicare [employer] MEDICARE A ETNA MEDICARE ASSURE HMO D SNP [id number] 2021-Present [phone] [address] [place] [address] Medicare [id number] 2021 Medicare [id number] 2019 Medicaid [facility] MEDIC AID [facility] MEDICAID [id number] 2019-Present [phone] [address] [place] [address] Medicaid [id number] 2019 Medicaid [id number] Social History Date Type Detail Facility [facility]: [facility] Work Phone: Start: 07-05-2011 Tobacco use and exposure Smokeless tobacco non-user [facility] Work Phone: Start: 03-14-2022 End: 08-29-2023 Alcohol intake Current non-drinker of alcohol (finding) [facility] Start: 03-22-2016 End: 04-25-2023 History of Social function [facility] Start: 03-22-2016 End: 04-25-2023 Tobacco use panel [facility] National Score (1-100), lower number is lower risk Not on file [facility] Start: 12-26-2006 Alcohol Comment rare [facility] Start: 1950 Sex Assigned At Not on file [facility] Start: 1950 Sex Assigned At Female [facility] Start: 06-19-2023 Gender identity Identifies as female gender (finding) [facility] Medical Equipment Procedure Code Equipment Code Equipment Origin al Text Equipment Identifier Dates Stent Uret 7fr 2 4cm W/O [facility] - [id number] Start: 01-13-2013 TEST BLOOD SUGAR 4 TIMES PER DAY. DX: 250.00. INSULIN DEP: YES. AM-MED Diabetic Supplies. [email or web address] Start: 01-07-2014 Clinical Notes 08-23-2011 to 09-02-2023 Telephone Encounter - Kirsten Crabtree - 09/02/2023 1:41 PM ESTTelephone Encounter - Barb Hubbard RN - 08/30/2023 9:19 AM ESTTelephone Encounter - Jessica Urrutia - 08/30/2023 8:43 AM EST Note Date & Type Note Facility 09-02-2023 Miscellaneous Notes 2 1st attempt. Unable to leave Authorization number: ORM / GPS to process Authorization date range: ORM / GPS to process Primary Insurance: [employer] Medicare Diagnosis: Thyroid cancer (HCC) [C73] DX Imaging: CT/CTA: CT 06-26-23 Pathology: 05-24-23 Left thyroid, biopsy: - Follicular-patterned thyroid neoplasm. 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 Comments for Coil Winding Machines Set Up Mechanic: N/A ROUTE TO SCHEDULERS POOL P PET DESIGN RELEASE ENGINEER [facility] or P [place] [facility] This form is used for MAIN CAMPUS APPOINTMENTS ONLY. Is this request for a Main [place] PET scan appointment? Yes: Division Human Resources Manager: Jessica Urrutia Requesting Person (Last Name, First Name): Jessica Urrutia Area Code + Phone/Pager: [phone] Who do we call to schedule this appointment? Patient Requesting Staff Savannah Sharpe Area Code + Phone/Pager: [phone] PET Orders (A delay in scheduling will result if the orders are not present at time of review): Internal ADDITIONAL ACTION MAY BE REQUIRED IF PATIENTS OON INSURANCE OR SELF PAY COVERAGE HAS NOT BEEN CLEARED FOR REQUESTED APPOINTMENT. Scheduling: TEQUILA: As soon as insurance will allow What account will this PET appointment be linked to? P/F Type of PET: Oncology: Are there additional diagnostic CT scans required to be done at time of PET scan? No Is the request for a PET MR ? No What account will diagnostic testing appointment be linked to? P/F Will the patient need anesthesia? NO Send requests to [facility] documented in this encounter [facility] 08-29-2023 Note HNO ID: [id number] Author: CEM AVILES CCC-CODING AUDITOR Service: ? Author Type: Speech Language Pathologist Type: Progress Notes Filed: 08/29/2023 15:38 Note Text: [facility] SPEECH PATHOLOGY Post-Operative Evaluation and Counseling Fiberoptic Endoscopic Evaluation of Swallowing (FEES) - Post-Operative Date: August 29, 2023 Patient: Roselia Bal Referred by: Juan Jose Gutierrez MD Impressions: Ms. Bal seen this date for post-operative follow up. Of note, most recently seen by colleague, inpatient when a MBSS was completed on 08/09/23. At that time, patient was cautiously placed on thin liquids. According to patient, she was instead discharged on Mildly Thick Liquids with Soft Solids back to facility in which she resided in prior to surgery. She has been tolerating this diet, and only yesterday did the CODING AUDITOR at facility upgrade her to Thin Liquids, but with continued Soft Solids based on a clinical swallow assessment, as facility does not have the means to complete instrumental. Given extent of surgery, including sacrifice recurrent laryngeal nerve, it was decided to complete FEES to determine appropriate for oral diet and determine readiness for oral diet advancement. Provided patient with CODING AUDITOR's contact information in case treating CODING AUDITOR at facility in which she resides would like copy of today's exam. FEES completed with patient consent. Functional oral phase swallow and mild pharyngeal phase dysphagia. For purees, one instance of laryngeal penetration during the swallow, with residue left along the anterior portion of laryngeal vestibule upon completion of the swallow. Cued cough and reswallow was effective at clearing penetrated material. The following swallow maneuver was trialled and deemed effective at improving swallow safety for purees: chin tuck maneuver. Patient self-reported improvement in general swallow comfort with use of a chin tuck. In an effort to utilize chin tuck maneuver across all consistencies, trialled maneuver with liquids and solids with adequate airway. Of note, met with Dr. Sharpe directly before our appointment, who recommended adjuvant RT. Patient likely to complete therapy closer to home, in [place]. Encouraged her to follow up with CODING AUDITOR as needed in conjunction with other appointments. When inquired, patient stated she is unhappy with her vocal quality, finds that many people cannot hear/understand her. Once 3-month post-RT is completed, suggested she talk to Dr. Gutierrez about consult to Laryngology to discuss medical options for L VC mobility. Recommendations: Regular Solid with Thin Liquids Strategies: Upright for all PO Small bites/sips at slow rate Chin tuck when eating/drinking Stringent oral care Consider consult to Laryngology ~3 months-post RT to discuss options for L VC impairment Plan: Follow up with CODING AUDITOR, PRN in conjunction with other appointments. Diagnosis/history: 73 year old admitted with left thyroid cancer. s/p left thyroid lobectomy 08-06-2023 with following findings per Operative Note: - Densely invasive left thyroid malignancy with invasion into internal jugular vein, adventitia of carotid artery, pharynx, vagus nerve, and recurrent laryngeal nerve. Subtotal resection performed with sacrifice of IJV, likely of vagus nerve which was difficult to definitively identify, and RLN - Specimen sent for frozen which showed oncocytic neoplasm, deferred specific diagnosis to final pathology Post-Operative MBSS on 08/09/23: Oral skills intact, despite missing dentition. Mild to moderate pharyngeal dysphagia, with deficits in both safety and efficiency of the swallow. Consistent laryngeal penetration and x2 trace silent aspiration noted with thin liquids (aspiration on uncued trials only), however this is mitigated with small sips and use of an intentional throat clear after the swallow. Mild to moderate residue in the vallecula with purees and semi solids, which is minimized with a reflexive repeat swallow. Of note, some backflow of contrast noted to come up below the UES throughout this evaluation. PAST MEDICAL HISTORY Diagnosis Date Acute kidney [...] . Other and unspecified hyperlipidemia 07/01/2007 Panniculitis 12/06/ (more content not included)... [facility] 08-29-2023 Note HNO ID: [id number] Author: SAVANNAH SHARPE MD Service: ? 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 HPI: 73 year old female who presents with above diagnosis, for an opinion regarding the role of radiation therapy in the management of the patient's disease. Final recommendations will be communicated back to the requesting physician by way of the shared medical record, or letter to requesting physician via US mail. Roselia Bal is a 73 year old woman with a history of chronic pain from arthritis, sleep apnea, peripheral vascular disease, spinal stenosis, Afib, HTN, and HLD, who presents with a recent diagnosis of thyroid carcinoma. Her oncologic history began in December 2022, at which time she noticed left neck swelling, mild voice hoarseness, and dysphagia. She sought evaluation and underwent an ultrasound in March demonstrating a poorly defined heterogenous mass involving the entire left thyroid. Subsequent FNA on 04/25/2023 was suspicious for malignancy. Biopsy on 05/24/2023 confirmed a follicular-patterned thyroid neoplasm. Of note, patient reports that her neck mass grew progressively and her dysphagia worsened in the months before her biopsy. She met with Dr. Gutierrez and proceeded with an extended radical left thyroidectomy and left central neck dissection on 08/06/2023 with pathology demonstrating a 7 cm tumor with extensive angioinvasion, ETE with invasion of muscle and jugular vein and positive margin (as above). Here for consideration of adjuvant treatment. Currently, she is seen with her daughter present via telephone. She has been tolerating a liquid diet since surgery but was evaluated by CODING AUDITOR in her shelter and is now encouraged to expand her diet. Overall, she is recovering well from surgery with some residual aching along her neck. This is well managed with her normal pain medication regimen, 10 mg oxycodone every 6 hours, which she has used over the last year for her fibromyalgia. Her voice is lower than normal, but is gradually getting stronger. Last 5 Encounter Wt Readings: Date: Wt: 08/29/2023 0 kg () 07/31/2023 97.1 kg (214 lb) 06/27/2023 96.2 kg (212 lb) 06/07/2023 97.1 kg (214 lb) 04/25/2023 103 kg (227 lb) 06/26/2023: CT neck: Large soft tissue mass arising from the left lobe of the thyroid gland with contiguous involvement of the left tracheoesophageal groove and retropharyngeal space, suspicion of contiguous involvement of the hypopharyngeal airway and strap muscles and mild compression and displacement of the upper trachea, worrisome for aggressive high-grade neoplasm. No significant cervical lymphadenopathy by size criteria. 08/06/2023: Surgical Pathology: A. Lymph node, left neck level 6, biopsy: -One lymph node, negative for carcinoma (0/1). B. Thyroid gland, left superior, excision: -High-grade encapsulated variant papillary thyroid carcinoma. -One lymph node, negative for carcinoma (0/1). C. 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 -Carcinoma extends to inked margin of resection. -One lymph node, negative for carcinoma (0/1). -Pathologic stage: pT4b N0 (see comment and synoptic report). COMMENT: The prior left lobe aspirate sample ([id number]) is noted to show KRAS Q61R and TERT promoter -124C>T mutations. The tumor is widely invasive with extensive (>4 foci) of angioinvasion. The tumor is predominantly follicular patterned with nuclear features of papillary thyroid carcinoma. Mitotic activity is only up to 2 mitoses per 2 mm2 and there is only focal solid/insular architecture and therefore, the tumor does not meet accepted criteria for poorly differentiated thyroid carcinoma. 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 This is a new entity in the most recent WHO classification oftumor that has similar behavior as poorly differentia (more content not included)... [facility] 08-29-2023 History of Present illness Narrative [facility] SPEECH PATHOLOGY Post-Operative Evaluation and Counseling Fiberoptic Endoscopic Evaluation of Swallowing (FEES) - Post-Operative Date: August 29, 2023 Patient: Roselia Indiohan Referred by: Juan Jose Gutierrez MD Impressions: Ms. Bal seen this date for post-operative follow up. Of note, most recently seen by colleague, inpatient when a MBSS was completed on 08/09/23. At that time, patient was cautiously placed on thin liquids. According to patient, she was instead discharged on Mildly Thick Liquids with Soft Solids back to facility in which she resided in prior to surgery. She has been tolerating this diet, and only yesterday did the CODING AUDITOR at facility upgrade her to Thin Liquids, but with continued Soft Solids based on a clinical swallow assessment, as facility does not have the means to complete instrumental. Given extent of surgery, including sacrifice recurrent laryngeal nerve, it was decided to complete FEES to determine appropriate for oral diet and determine readiness for oral diet advancement. Provided patient with CODING AUDITOR's contact information in case treating CODING AUDITOR at facility in which she resides would like copy of today's exam. FEES completed with patient consent. Functional oral phase swallow and mild pharyngeal phase dysphagia. For purees, one instance of laryngeal penetration during the swallow, with residue left along the anterior portion of laryngeal vestibule upon completion of the swallow. Cued cough and reswallow was effective at clearing penetrated material. The following swallow maneuver was trialled and deemed effective at improving swallow safety for purees: chin tuck maneuver. Patient self-reported improvement in general swallow comfort with use of a chin tuck. In an effort to utilize chin tuck maneuver across all consistencies, trialled maneuver with liquids and solids with adequate airway. Of note, met with Dr. Sharpe directly before our appointment, who recommended adjuvant RT. Patient likely to complete therapy closer to home, in [place]. Encouraged her to follow up with CODING AUDITOR as needed in conjunction with other appointments. When inquired, patient stated she is unhappy with her vocal quality, finds that many people cannot hear/understand her. Once 3-month post-RT is completed, suggested she talk to Dr. Gutierrez about consult to Laryngology to discuss medical options for L VC mobility. Recommendations: Regular Solid with Thin Liquids Strategies: Upright for all PO Small bites/sips at slow rate Chin tuck when eating/drinking Stringent oral care Consider consult to Laryngology ~3 months-post RT to discuss options for L VC impairment Plan: Follow up with CODING AUDITOR, PRN in conjunction with other appointments. Diagnosis/history: 73 year old admitted with left thyroid cancer. s/p left thyroid lobectomy 08-06-2023 with following findings per Operative Note: - Densely invasive left thyroid malignancy with invasion into internal jugular vein, adventitia of carotid artery, pharynx, vagus nerve, and recurrent laryngeal nerve. Subtotal resection performed with sacrifice of IJV, likely of vagus nerve which was difficult to definitively identify, and RLN - Specimen sent for frozen which showed oncocytic neoplasm, deferred specific diagnosis to final pathology Post-Operative MBSS on 08/09/23: Oral skills intact, despite missing dentition. Mild to moderate pharyngeal dysphagia, with deficits in both safety and efficiency of the swallow. Consistent laryngeal penetration and x2 trace silent aspiration noted with thin liquids (aspiration on uncued trials only), however this is mitigated with small sips and use of an intentional throat clear after the swallow. Mild to moderate residue in the vallecula with purees and semi solids, which is minimized with a reflexive repeat swallow. Of note, some backflow of contrast noted to come up below the UES throughout this evaluation. PAST MEDICAL HISTORY Diagnosis Date Acute kidney [...] RMVL TUBE OVARY 1987 Hysterectomy, CHICA, appy Cancer treatment status: post-surgical; pre-RT Pain: No Taste: No changes Lymphedema: none Mouth Condition: clean and moist Present Feeding Method: Oral Diet Level: Minced and Moist (L5) and Thin Liquids Strategies/maneuvers used: N/A Dentition: Incomplete Respiratory Status: Tracheostomy: No O2: Room Air Oral Mechanism Evaluation: An evaluation of Ms. Mally leonard oral-facial anatomy and musculature was conducted. She showed good range of motion during all the activities she was asked to perform, with no notable asymmetrical differences that would indicate difficulties. Both the structures and function of the patient's oral mechanism were considered to be within normal limits. Jaw opening: did not assess Speech Production: Articulation: Within Functional Limits Intelligibility: Within Functional Limits Vocal Quality: Impaired - Strained, Breathy Vocal Intensity: Impaired - Reduced Rate / Prosody: Within Functional Limits POSITION OF PATIENT: Seated in motorized wheelchair SCOPE PASSED THROUGH: Left nasal passage ANESTHESIA: Yes Marlin administration via Left nasal passage ANATOMY AND PHYSIOLOGY EXAM: Nasal Cavity: blood, otherwise WFL Velar closure( pa-pa-pa / [id number] ): Reduced Base of Tongue retraction ( Carter is tall ): Reduced Vocal fold/arytenoid mobility ( ee-sniff alternating): Reduced on the left - question whether L vocal cord is fixed at midline (?) Glottic closure: (breath hold/voicing): glottal gap Laryngeal elevation/arytenoid lift (ascending pitch glides): Reduced Pharyngeal wall medialization (high-pitched ee ): WFL Epiglottic retroflextion (during swallow): WFL Secretions (observation at rest prior to bolus trials): clear Conner Secretion Scale: 0= Normal moist 1= Pooling outside the laryngeal vestibule anytime during observation period 2= Pooling in the laryngeal vestibule transiently, spills over in the observation period, yet patient clears at some point 3=Pooling in the laryngeal vestibule consistently, patient does not clear CONSISTENCIES GIVEN: -Blue Water via Straw - Single and Consecutive sips with head at midline; chin tuck with single sips via straw -White Applesauce - head at midline and chin tuck -Stan Cracker - with chin tuck ADMINISTERED BY: Self-fed PHARYNGEAL PHASE: Location of bolus at onset of swallow: onset at the valleculae and posterior laryngeal portion of the epiglottis for both thin and purees White out: reduced Penetration/Aspiration: penetration on purees Pharyngeal Clearance: yes Strategies Utilized: chin tuck COMMENTS: Adequate labial seal around presented modalities and with no anterior bolus loss. Selby A-P oral cavity transfer time and with no anterior bolus loss. No notable oral residue. Delayed pharyngeal swallow onset for purees and thin liquids, with onset at times to the vallecuale, and other times at the posterior laryngeal portion of the epiglottis. Despite weakness appreciated during anatomy/physiology exam, and with reduced white out, patient with only trace pureed residue within pharyngeal structures along left side. Laryngeal penetration during the swallow for purees, with residue left along the anterior portion of the laryngeal vestibule upon completion of the swallow on one occasion. Cued cough and throat clear effectively cleared residue. Chin tuck eliminated penetration all together, with patient reporting improvement in comfort at time of swallow and after with use of chin tuck. Penetration Aspiration Scale (PAS): 3 - Material enters the airway, remains above the vocal folds, and is not ejected from the airway [place] Residue Scale: None= No residue in valleculae or pyriform sinus Trace= trace coating of the mucosa in the valleculae and/or pyriform sinus - purees Mild= Epiglottic ligament is visible, pyriform sinus if up to a quarter full Moderate= epiglottic ligament is covered, pyriform sinus is correction full Severe= Valleculae is filled to epiglottic rim, pyriform sinus is filled to aryepiglottic fold Functional Oral Intake Scale (FOIS) Tube Dependent: (levels 1-3) 1- no oral intake 2- tube dependent w/minimal or inconsistent PO 3- tube supplements w/consistent PO Total Oral Intake: (levels 4-7) 4- total oral of single consistency 5- total oral of multiple consistencies w/special preparation 6- total oral; no special prep; but avoid specific foods or liquid items 7- total oral intake w/no restrictions MDADI Scores No flowsheet data found. PSS-HN: Normalcy of Diet: 50 - Soft chewable foods (e.g., macaroni, canned/soft fruits, cooked vegetables, fish, hamburger, small pieces of meat) Public Eatin - No restriction of place, food or gaggerman (eats out at any opportunity) Understandability of Speech: 75 - Understandable most of the time, occasional repetition necessary Onset of Illness: 08/06/23 Initial Date of Treatment: August 29, 2023 Treatment Plan Date: August 29, 2023 Cem Aviles M.A., CCC-CODING AUDITOR Speech-Language Pathologist Pager: [phone] documented in this encounter [facility] 08-29-2023 History of Present illness Narrative Radiation Oncology - New Patient/Consult Note PATIENT NAME: Roselia Bal PATIENT : 1950 REQUESTING PROVIDER: Juan Jose Gutierrez MD Primary Site: Thyroid Date of Diagnosis: May 24, 2023 Pathologic Stage: T4b N0 Mx DIAGNOSIS: 73 year old female with 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 HPI: 73 year old female who presents with above diagnosis, for an opinion regarding the role of radiation therapy in the management of the patient's disease. Final recommendations will be communicated back to the requesting physician by way of the shared medical record, or letter to requesting physician via US mail. Roselia Bal is a 73 year old woman with a history of chronic pain from arthritis, sleep apnea, peripheral vascular disease, spinal stenosis, Afib, HTN, and HLD, who presents with a recent diagnosis of thyroid carcinoma. Her oncologic history began in December 2022, at which time she noticed left neck swelling, mild voice hoarseness, and dysphagia. She sought evaluation and underwent an ultrasound in March demonstrating a poorly defined heterogenous mass involving the entire left thyroid. Subsequent FNA on 04/25/2023 was suspicious for malignancy. Biopsy on 05/24/2023 confirmed a follicular-patterned thyroid neoplasm. Of note, patient reports that her neck mass grew progressively and her dysphagia worsened in the months before her biopsy. She met with Dr. Gutierrez and proceeded with an extended radical left thyroidectomy and left central neck dissection on 08/06/2023 with pathology demonstrating a 7 cm tumor with extensive angioinvasion, ETE with invasion of muscle and jugular vein and positive margin (as above). Here for consideration of adjuvant treatment. Currently, she is seen with her daughter present via telephone. She has been tolerating a liquid diet since surgery but was evaluated by CODING AUDITOR in her shelter and is now encouraged to expand her diet. Overall, she is recovering well from surgery with some residual aching along her neck. This is well managed with her normal pain medication regimen, 10 mg oxycodone every 6 hours, which she has used over the last year for her fibromyalgia. Her voice is lower than normal, but is gradually getting stronger. Last 5 Encounter Wt Readings: Date: Wt: 08/29/2023 0 kg () 07/31/2023 97.1 kg (214 lb) 06/27/2023 96.2 kg (212 lb) 06/07/2023 97.1 kg (214 lb) 04/25/2023 103 kg (227 lb) 06/26/2023: CT neck: Large soft tissue mass arising from the left lobe of the thyroid gland with contiguous involvement of the left tracheoesophageal groove and retropharyngeal space, suspicion of contiguous involvement of the hypopharyngeal airway and strap muscles and mild compression and displacement of the upper trachea, worrisome for aggressive high-grade neoplasm. No significant cervical lymphadenopathy by size criteria. 08/06/2023: Surgical Pathology: A. Lymph node, left neck level 6, biopsy: -One lymph node, negative for carcinoma (0/1). B. Thyroid gland, left superior, excision: -High-grade encapsulated variant papillary thyroid carcinoma. -One lymph node, negative for carcinoma (0/1). C. 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 -Carcinoma extends to inked margin of resection. -One lymph node, negative for carcinoma (0/1). -Pathologic stage: pT4b N0 (see comment and synoptic report). COMMENT: The prior left lobe aspirate sample ([id number]) is noted to show KRAS Q61R and TERT promoter -124C>T mutations. The tumor is widely invasive with extensive (>4 foci) of angioinvasion. The tumor is predominantly follicular patterned with nuclear features of papillary thyroid carcinoma. Mitotic activity is only up to 2 mitoses per 2 mm2 and there is only focal solid/insular architecture and therefore, the tumor does not meet accepted criteria for poorly differentiated thyroid carcinoma. 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 This is a new entity in the most recent WHO classification of tumor that has similar behavior as poorly differentiated thyroid carcinoma. Histologic evidence of anaplastic thyroid carcinoma is not identified. Per discussion with the surgeon there was intraoperative evidence of carotid artery encasement and invasion of the prevertebral fascia. The tumor is therefore stages as pT4b SPECIMEN Procedure extended left radical thyroidectomy TUMOR Tumor Focality Unifocal Tumor Characteristics Tumor Site Left lobe Tumor Size Greatest Dimension (Centimeters): 7.0 cm Additional Dimension (Centimeters) 4.3 cm 3.2 cm Histologic Tumor Types and Subtypes High-grade invasive encapsulated follicular variant papillary thyroid carcinoma: Angioinvasive high-grade encapsulated follicular variant papillary thyroid carcinoma Tumor Proliferative Activity Mitotic Rate Less than 3 mitoses per 2mm2 2 mitoses per 2 mm2 Tumor Necrosis Present Angioinvasion (vascular invasion) Present: extensive (>4 foci) Lymphatic Invasion Not identified Extrathyroidal Extension Present, clinical / macroscopic AND histologically confirmed Invading subcutaneous soft tissues, larynx, trachea, esophagus or recurrent laryngeal nerve (i.e., pT4a) Margin Status Carcinoma present at margin Margin(s) Involved by Carcinoma soft tissue (pericarotid per operative note) REGIONAL LYMPH NODES Regional Lymph Node Status All regional lymph nodes negative for tumor Number of Lymph Nodes Examined 3 Mari Level(s) Examined Level pTNM CLASSIFICATION (AJCC 8th Edition) Reporting of pT, pN, and (when applicable) pM categories is based on information available to the pathologist at the time the report is issued. As per the AJCC (Chapter 1, 8th Ed.) it is the managing physician s responsibility to establish the final pathologic stage based upon all pertinent information, including but potentially not limited to this pathology report. pT Category pT4b pN Category pN0a FOCUSED ROS: Dysphagia: Yes See HPI Mucositis: No Voice Changes:Yes See HPI Fatigue: Yes See HPI Nausea: No Vomitting: No Pain: Yes See HPI Taste: No Weight loss: No ALLERGIES Allergen Reactions Asa [Salicylates] Hives Penicillins Anaphylaxis Sulfa (Sulfonamide * Anaphylaxis Aspirin Unknown Latex, Natural Rubb* Itching skin gets red and breaks down MEDICATIONS: bisacodyl (DULCOLAX) 10 mg supp^10 mg by RECTAL route once daily as needed for constipation.^Disp: ^Rfl: cranberry fruit (CRANBERRY) 450 mg tab^Take by mouth.^Disp: ^Rfl: vibegron (GEMTESA) 75 mg tablet^Take 75 mg by mouth once daily.^Disp: ^Rfl: glucagon (GLUCAGON EMERGENCY KIT, HUMAN,) 1 mg injection^Inject 1 mg subcutaneously one time only.^Disp: ^Rfl: dextrose (GLUCOSE GEL ORAL)^Take by mouth.^Disp: ^Rfl: GUAIFENESIN ORAL^Take by mouth as needed.^Disp: ^Rfl: loperamide HCl (IMODIUM A-D ORAL)^Take by mouth as needed.^Disp: ^Rfl: lactase (LACTAID ORAL)^Take by mouth as needed.^Disp: ^Rfl: Ascorbic Acid 500 mg cpER^Take 500 mg by mouth.^Disp: ^Rfl: insulin glargine (BASAGLAR KWIKPEN U-100 INSULIN) 100 unit/mL (3 mL)^Inject subcutaneously.^Disp: ^Rfl: acetaminophen (TYLENOL) 325 mg tablet^Take 650 mg by mouth every 4 hours as needed for fever (specify temp.).^Disp: ^Rfl: ammonium lactate (LAC-HYDRIN) 12 % cream^Apply to affected area.^Disp: ^Rfl: atorvastatin (LIPITOR) 10 mg tablet^^Disp: ^Rfl: ARNUITY ELLIPTA 100 mcg/actuation inhaler^^Disp: ^Rfl: spironolactone (ALDACTONE) 25 mg tablet^^Disp: ^Rfl: XARELTO 15 mg tablet^^Disp: ^Rfl: rivaroxaban (XARELTO) 2.5 mg tablet^Take 10 mg by mouth every evening.^Disp: ^Rfl: pramipexole (MIRAPEX) 0.25 mg tablet^^Disp: ^Rfl: oxyCODONE IR (ROXICODONE) 10 mg tab^^Disp: ^Rfl: omeprazole (PRILOSEC) 40 mg capsule^^Disp: ^Rfl: nystatin (MYCOSTATIN) powder^Apply to affected area.^Disp: ^Rfl: modafinil (PROVIGIL) 200 mg tablet^Take 200 mg by mouth.^Disp: ^Rfl: meclizine (ANTIVERT) 25 mg tab^^Disp: ^Rfl: NOVOLOG U-100 INSULIN ASPART 100 unit/mL^^Disp: ^Rfl: furosemide (LASIX) 40 mg tablet^Take 80 mg by mouth once daily.^Disp: ^Rfl: 5 insulin glargine (LANTUS SOLOSTAR) 100 unit/mL (3 mL) inpn^Inject 15 units SC at bedtime^Disp: 5 Pen^Rfl: 11 (Patient taking differently: Inject 6 Units subcutaneously daily at bedtime. Inject 15 units SC at bedtime) metFORMIN ER (GLUCOPHAGE XR) 500 mg 24 hr tablet^Take 1 tablet by mouth twice daily before meals.^Disp: 60 tablet^Rfl: 6 (Patient taking differently: Take 850 mg by mouth daily with breakfast.) Insulin [place], Disposable, (PEN NEEDLE) 29 x 1/2 ndle^Use daily for insulin as directed.^Disp: 100 Each^Rfl: 1 sitaGLIPtin (JANUVIA) 100 mg tablet^Take 1 tablet by mouth once daily.^Disp: 30 tablet^Rfl: 6 rOPINIRole 0.5 mg tablet^Take 1 tablet by mouth daily at bedtime.^Disp: 30 tablet^Rfl: 11 blood sugar diagnostic (BLOOD GLUCOSE TEST) test strip^TEST BLOOD SUGAR 4 TIMES PER DAY. DX: 250.00. INSULIN DEP: YES. -MED Diabetic Supplies. Www.[employer]^Disp: ^Rfl: 0 diltiazem CD (CARTIA XT) 180 mg 24 hr capsule^Take 2 capsules by mouth once daily.^Disp: 60 capsule^Rfl: 6 pregabalin (LYRICA) 100 mg capsule^Take 1 capsule by mouth three times daily.^Disp: 90 capsule^Rfl: 2 Incontinence Pad, Liner, Disp (POISE PADS EXTRA PLUS) Pads^Use as needed for incontinence. 788.33 Mixed incontinence urge and stress; 788.31 Urge incontinence^Disp: 1 Each^Rfl: 5 COMPOUNDED PRESCRIPTION^Washable mattress pad for incontinence, use as needed. 788.33 Mixed incontinence urge and stress; 788.31 Urge incontinence^Disp: 3 Each^Rfl: 3 Underpads 30 X 30 Pads^Use on bed as needed for urinary incontinence. 788.33 Mixed incontinence urge and stress; 788.31 Urge incontinence^Disp: 1 Each^Rfl: 5 COMPOUNDED PRESCRIPTION^XL adult briefs for incontinence. 788.33 Mixed incontinence urge and stress; 788.31 Urge incontinence^Disp: 1 bag^Rfl: 5 Lanolin-mineral oil (EUCERIN ORIGINAL) lotion^Apply 1 application to affected area as needed.^Disp: 195 mL^Rfl: 2 fluticasone (FLONASE) 50 mcg/actuation nasal spray^Use 1 Marlin in each nostril daily at bedtime.^Disp: 1 Bottle^Rfl: 6 ALBUTEROL SULFATE 2.5 MG/3 ML (0.083 %) NEB SOLUTION^Inhale by nebulizer over 5-15 minutes three (3) to four (4) times a day as needed for wheezing and shortness of breath^Disp: ^Rfl: 0 albuterol sulfate(PROAIR HFA 90 MCG/ACTUATION AEROSOL INHALER)^Inhale 2 puffs every 4 hours as needed for wheezing, cough^Disp: 1^Rfl: 5 Ferrous Sulfate 325 (65) mg ORAL Tab^Take one(1) tablet twice daily.^Disp: 60^Rfl: 5 Multivitamin ORAL Tab^Take one(1) tablet daily.^Disp: ^Rfl: 0 PAST MEDICAL HISTORY Diagnosis Date Acute kidney [...] WOUND COMPLICATED (OPEN) ABD WALL, ANTER 07/09/2007 Prior radiation therapy, collagen vascular disease, or inflammatory bowel disease: No Any implanted or external electric devices? No status: Post-menopausal. PAST SURGICAL HISTORY Procedure Laterality Date BX BREAST PERC VACUUM/ROTN 03/20/10 Benign COLONOSCOPY FLX DX W/COLLJ SPEC WHEN PFRMD 2005 Colonoscopy CYSTOSCOPY, URETERAL STENT CHANGE/INSERTION 01/13/2013 Right side. DILATION & CURETTAGE DX&/THER NONOBSTETRIC 1970s Dilation & curettage NEPHROSTOMY URETERAL DILATION 01/13/2013 Right perc. ureteroscopy, stone manip. TOTAL ABDOMINAL HYSTERECT W/WO RMVL TUBE OVARY 1987 Hysterectomy, CHICA, appy FAMILY HISTORY Problem Relation Age of Onset Alcohol/Drug Father Allergies Mother Anesthesia Mother Cancer Father Diabetes Father Diabetes Mother Hypertension Mother Hypertension Father Stroke Father Social History Tobacco Use Smoking status: Never Smokeless tobacco: Never Vaping Use Vaping Use: Never used Substance Use Topics Alcohol use: No Comment: rare Drug use: No Smoking: No Heavy Alcohol Consumption: No Lives in: [place], [place] Social Support: Lives in shelter. Has a supportive daughter in [place]. 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 COMPLETE REVIEW OF SYSTEMS: GENERAL: feeling well, no recent change in weight HEENT: denies MCKEON, change in hearing or vision, no other ENT complaints NECK: See HPI. RESPIRATORY: no cough, no wheezing or shortness of breath CARDIOVASCULAR: no chest pain, no palpitations GI: normal appetite, BMs normal, and no abdominal pain : urination is normal MUSCULOSKELETAL: See HPI SKIN: no rash HEMATOLOGY/LYMPHOLOGY: negative for prolonged bleeding, no swollen lymph nodes NEURO: no numbness or paresthesias and no weakness of the extremities PHYSICAL EXAM: VS: BP 136/58 (BP Site: Left Arm, BP Position: Sitting, BP Cuff Size: Extra Large Adult) Pulse 94 Temp 36.1 C (97 F) (Temporal) Resp 18 SpO2 96% KPS: 80 General Appearance: Alert and oriented. No acute distress. HEENT: NCAT. Sclera anicteric. Oral cavity & oropharnyx: lips and gums normal, oral and pharyngeal mucosa moist, palate elevates normally, tongue mobile and without palpable lesions, tonsils without masses Trismus: none Dentition: Fair. Some lower fractured teeth. Neck: Well healed thyroid incision. Normal ROM. No palpable cervical or supraclavicular adenopathy. Chest: No respiratory distress. Abdomen: Soft. Nontender. Nondistended. Musculoskeletal: Bilateral 2+ pitting edema. Normal ROM in extremities. Mild longstanding tenderness in lower back on palpation- stable. No other bone or spine tenderness. Neuro: Speech fluent. Gait not assessed - on motorized wheelchair. No focal deficits. Skin: No rashes noted Lymphatics: No palpable lymphadenopathy. Hematologic: No signs of active bleeding. FLEXIBLE NASOPHARYNGOLARYNGOSCOPY Not done. 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 Ms. Bal is recovering well from surgery overall. She has an aggressive thyroid tumor with significant muscle invasion in the lower neck. She met with Dr. Gutierrez and discussed that further resection in this area if disease were to recur could be significant and include a laryngectomy. Given the aggressive histology, I would recommend completion of staging with PET and, if her disease is localized, she may benefit from post op RT to the neck to minimize likelihood of recurrence. We also discussed that given the aggressive features, her tumor may not be as responsive to MERCADO and she is meeting with endocrinology in the coming weeks. We also discussed the logistics of receiving treatment at [facility] versus closer to her shelter at [place]. She will determine whether daily transportation to [facility] is feasible but will meet with Dr. Cramer in [place] in the interim. After I spoke to Ms. Bal about the diagnosis in detail with her daughter present via telephone, I discussed the risks, benefits, alternatives, procedures, mechanics and personnel involved in treatment. We also discussed the possible acute and late side effects involved. Ms. Bal verbalized understanding of these issues and consented to treatment. All questions were answered at this time. Should she proceed with RT here and pending PET, we will use intensity modulated radiotherapy to help maximize the coverage of the target tissues and minimize dose to surrounding critical structures, including the salivary glands, pharyngeal constrictors and ORNAMENTAL PLASTER STICKER structures. Daily cone beam CT will be used to ensure accurate daily localization. Medical Decision Making: Problems: High: Illness/injury w/ threat to life/body function Data: Unique test result(s) reviewed: 2 Risk: High: High risk from testing/treatment Medical Decision Making Level: 5 - High Signed by: Savannah Sharpe MD Scribe Attestation: By signing my name below, Allie Joy, attest that this documentation has been prepared under the direction and in the presence of Savannah Sharpe MD. Electronically Signed: chuckie Foreman, August 29, 2023 12:46 PM Provider Attestation: Savannah Joy MD, personally performed the services described in this documentation. All medical record entries made by the scribe were at my direction and in my presence. I have reviewed the chart and discharge instructions (if applicable) and agree that the record reflects my personal performance and is accurate and complete. Electronically Signed: Savannah Sharpe MD cc: Rosa Silva [address] [place] [address] Juan Jose Gutierrez MD [facility] documented in this encounter [facility] 08-29-2023 Nurse Note Additional intake questions: Has the patient had fever, nausea, vomiting, diarrhea, constipation, fatigue for > 1 week? Yes, fatigue Does the patient have a decreased appetite? No Does patient want to see a Street Light Inspector? No (yes to any of above refer patient to schedulers for dietitian appointment) ) Does patient have any new or increased numbness or tingling of extremities? History of neuropathy Is patient interested in fertility information? NA Does patient need any prescription refills? No Does patient have an advanced directive in place? Yes, copies are in [facility] Electronically Signed By: Yolanda Schmitz Ma documented in this encounter [facility] 08-22-2023 Note HNO ID: [id number] Author: JUAN JOSE GUTIERREZ MD Service: ? Author Type: Physician Type: Progress Notes Filed: 08/23/2023 10:45 Note Text: [facility] Note CC: Post op of total thyroid lobectomy performed on 08/06/2023 HPI: Patient is a 73 year old female, never smoker, with a history of AFIB, sleep apnea, low platelets, HTN and HLD. Poorly defined heterogenous mass involving entire left thyroid was found on US, and FNA biopsy report (04/25/23) was suspicious for malignancy. 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 This combined with previous imaging and biopsy are consistent with invasive cancer, and a partial-total thyroidectomy was recommended. As such, patient underwent total thyroid lobectomy. Ms. Bal presents for post-operative visit. She is well and recovering, presenting to clinic. She is in good spirit and has seen PT, speech pathology. She endorses improved swallowing. Current Outpatient Medications Medication Sig Dispense Refill bisacodyl (DULCOLAX) 10 mg supp 10 mg by RECTAL route once daily as needed for constipation. cranberry fruit (CRANBERRY) 450 mg tab Take by mouth. vibegron (GEMTESA) 75 mg tablet Take 75 mg by mouth once daily. glucagon (GLUCAGON EMERGENCY KIT, HUMAN,) 1 mg injection Inject 1 mg subcutaneously one time only. dextrose (GLUCOSE GEL ORAL) Take by mouth. GUAIFENESIN ORAL Take by mouth as needed. loperamide HCl (IMODIUM A-D ORAL) Take by mouth as needed. lactase (LACTAID ORAL) Take by mouth as needed. Ascorbic Acid 500 mg cpER Take 500 mg by mouth. insulin glargine (BASAGLAR KWIKPEN U-100 INSULIN) 100 unit/mL (3 mL) Inject subcutaneously. acetaminophen (TYLENOL) 325 mg tablet Take 650 mg by mouth every 4 hours as needed for fever (specify temp.). ammonium lactate (LAC-HYDRIN) 12 % cream Apply to affected area. atorvastatin (LIPITOR) 10 mg tablet ARNUITY ELLIPTA 100 mcg/actuation inhaler spironolactone (ALDACTONE) 25 mg tablet XARELTO 15 mg tablet rivaroxaban (XARELTO) 2.5 mg tablet Take 10 mg by mouth every evening. pramipexole (MIRAPEX) 0.25 mg tablet oxyCODONE IR (ROXICODONE) 10 mg tab omeprazole (PRILOSEC) 40 mg capsule nystatin (MYCOSTATIN) powder Apply to affected area. modafinil (PROVIGIL) 200 mg tablet Take 200 mg by mouth. meclizine (ANTIVERT) 25 mg [...] mouth daily with breakfast.) 60 tablet 6 Insulin [place], Disposable, (PEN NEEDLE) 29 x 1/2 ndle Use daily for insulin as directed. 100 Each 1 sitaGLIPtin (JANUVIA) 100 mg tablet Take 1 tablet by mouth once daily. 30 tablet 6 rOPINIRole 0.5 mg tablet Take 1 tablet by mouth daily at bedtime. 30 tablet 11 blood sugar diagnostic (BLOOD GLUCOSE TEST) test strip TEST BLOOD SUGAR 4 TIMES PER DAY. DX: 250.00. INSULIN DEP: YES. AM-[employer] Diabetic Supplies. Www.Appsfire.Cell-A-Spot 0 diltiazem CD (CARTIA XT) 180 mg [...] stress; 788.31 Urge incontinence 1 bag 5 Lanolin-mineral oil (EUCERIN ORIGINAL) lotion Apply 1 application to affected area as needed. 195 mL 2 fluticasone (FLONASE) 50 mcg/actuation nasal spray Use 1 Marlin in each nostril daily at bedtime. 1 [...] Take one(1) tablet twice daily. 60 5 Multivitamin ORAL Tab Take one(1) tablet daily. 0 No current facility-administered medications for this visit. Facility-Administered Medications Ordered in Other Visits Medication Dose Ro (more content not included)... [facility] 08-11-2023 Note HNO ID: [id number] Author: JACQUELYN GONZALEZ MD Service: Otolaryngology Author Type: Resident Type: Progress Notes Filed: 08/11/2023 07:14 Note Text: [facility] - HEAD AND NECK SURGERY PROGRESS NOTE PAGE [phone] AFTER 1700 AND ON WEEKENDS Patient Name: Roselia Bal Age: [age] year old Sex: female Date: August 11, 2023 Admission Date: 08/06/2023 Hospital Day: 4 ASSESSMENT/PLAN: Roselia Bal is a 73 year old female [...] Otolaryngology - Head and Neck Surgery Pager: [phone] After 5 PM on weekdays OR weekends/holidays: [phone] SUBJECTIVE: Eating 75-80% of meal trays per [...] Date 08/10/23 07 - 08/11/23 0659 08/11/23 0700 - 08/12/23 0659 Shift 0923-1173 6885-9228 4657-1729 24 Hour Total 7790-4629 2573-4572 5634-0138 24 Hour Total INTAKE PO(mL/kg) 510(5.3) 510(5.3) PO 360 360 Supplements (mL) 150 150 IV(mL/kg) 10(0.1) 10(0.1) Volume (mL) (NaCl 0.9% iv flush bag) 10 10 Shift Total(mL/kg) 520(5.41) 520(5.41) OUTPUT Urine(mL/kg/hr) 1051(1.37) 901(1.17) 1951 Void (ml) 1 1 2 Urine Incontinence/Not Saved 1 x 1 x Urine Not Saved. 1 x 1 x Output ( External Collection Device 08/06/23 2330) 2235 408 0727 # of BMs(mL/kg) Stool Incontinence 2 x [...] tab(s) (LACTAID) 9,0 (more content not included)... [facility] 08-10-2023 Note HNO ID: [id number] Author: FREEMAN WALLACE MD Service: Otolaryngology Author Type: Resident Type: Progress Notes Filed: 08/10/2023 09:46 Note Text: [facility] - HEAD AND NECK SURGERY PROGRESS NOTE PAGE [phone] AFTER 1700 AND ON WEEKENDS Patient Name: Roselia Bal Age: [age] year old Sex: female Date: August 10, 2023 Admission Date: 08/06/2023 Hospital Day: 3 ASSESSMENT/PLAN: Roselia Bal is a 73 year old female [...] q4h, record output q8h - Dispo: TERRA Freeman Wallace, PGY-2, Otolaryngology Service Pager: [phone] Pager: [phone] August 07, 2023 5:22 AM For questions after 5 PM and on weekends, please page [phone]. SUBJECTIVE: Canceled AMET overnight for AMS. At [...] Weight: Height: Ins AND Outs: Date 08/09/23 07 - 08/10/23 0659 08/10/23 0700 - 08/11/23 0659 Shift 8424-5536 4078-4267 0338-1661 24 Hour Total 1911-1077 4521-1609 2519-0922 24 Hour Total INTAKE PO(mL/kg) 180(1.87) 780(8.11) [...] Output ( External Collection Device 08/06/23 2330) 859 916 6185 # of BMs(mL/kg) Stool Incontinence 2 x [...] TUBE BID pant (more content not included)... [facility] 08-10-2023 Note HNO ID: [id number] Author: NOTE, INTERFACE, ? Service: ? Author Type: ? Type: Progress Notes Filed: 08/10/2023 02:16 Note Text: Epic Scheduled Downtime: 08/10/2023 1:00:00 AM to 08/10/2023 2:04:22 AM [facility] 08-09-2023 Note HNO ID: [id number] Author: CLIFFORD NARAYAN RN Service: Care Management Author Type: Registered Nurse Type: Care Mgt Progress Note Filed: 08/09/2023 15:03 Note Text: CARE MANAGEMENT WEEKEND PLANNING NOTE DISCHARGE OR POSSIBLE DISCHARGE Date/Time: Saturday08/11/2023 / 2pm Disposition: Extended Care Facility - [facility] Obtained: No Facility Name: [facility] Facility Phone #: [phone] Facility Fax #: [phone] Call Report To: [phone] D/C Packet Completed: Yes - Location of Packet: [facility]: Mode of Transportation: Ambulance Transportation Agency and Phone #: [facility] [phone] . 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 Instrumentation Supervisor Location: Destination: [facility] Per medical team patient may [...] coverage. SIGNATURE: Clifford Narayan RN PATIENT NAME: Roselia Bal DATE: August 09, 2023 TIME: 2:53 PM PAGER/CONTACT #: [phone] [facility] 08-09-2023 Note HNO ID: [id number] Author: KRISTIN JANE RT(R) Service: Radiology Author Type: Technologist Type: Progress Notes Filed: 08/09/2023 11:13 Note Text: Radiology Service Progress Note PATIENT NAME: Roselia Bal DATE OF SERVICE: August 09, 2023 [...] PERIPHERAL IV DATA: Not applicable SIGNED BY: Kristin Jane, RT(R) August 09, 2023 11:13 AM [facility] 08-09-2023 Note HNO ID: [id number] Author: FREEMAN WALLACE MD Service: Otolaryngology Author Type: Resident Type: Progress Notes Filed: 08/09/2023 07:05 Note Text: [facility] - HEAD AND NECK SURGERY PROGRESS NOTE PAGE [phone] AFTER 1700 AND ON WEEKENDS Patient Name: Roselia Bal Age: [age] year old Sex: female Date: August 09, 2023 Admission Date: 08/06/2023 Hospital Day: 2 ASSESSMENT/PLAN: Roselia Bal is a 73 year old female [...] Dispo: TERRA Wallace, PGY-2, Otolaryngology Service Pager: [phone] Pager: [phone] August 07, 2023 5:22 AM For questions after 5 PM and on weekends, please page [phone]. SUBJECTIVE: No acute events overnight. Pain well-controlled [...] Weight: Height: Ins AND Outs: Date 08/08/23 07 - 08/09/23 0659 08/09/23 07 - 08/10/23 0659 Shift 3926-6382 4475-3155 6924-0787 24 Hour Total 4376-2787 7210-9638 9687-4421 24 Hour Total INTAKE PO 105 105 0 210 PO 105 105 0 210 Supplements (mL) 0 0 0 IV 700 800 0 1500 Volume (mL) (NaCl 0.9% iv infusion) 700 800 0 1500 Irrigants 90 90 280 460 Irrigant/Flush Amount In mL (I/O) (GI/ Feeding Naris) 90 90 280 460 Gastric Tube 80 706 574 3592 Tube Feed Intake mL (I/O) (GI/ Feeding Naris) 80 043 158 2434 Shift Total 975 6399 058 1483 OUTPUT Urine 2400 666 380 6525 Urine Not Saved. 2 x 1 x 3 x Output ( External Collection Device 08/06/23 2330) 2400 549 817 4360 Tubes 1 1 Drain/Tube Output (Drain/Tube 08/06/23 1756 Domenico Herbert Left Neck) 1 1 # of BMs Number of BMs 1 x 0 x 0 x 1 x Stool 0 0 0 Liquid BM (mL) 0 0 0 Shift Total 2400 063 640 6356 Weight (kg) 96.2 96.2 96.2 96.2 96.2 [...] 1732 08/08/23 1153 08/08/23 0754 08/08/23 0547 08/07/234 PCGLUCOSE 331* 335* 347* 278* 247* 212* [...] TUBE DAILY alex (more content not included)... [facility] 08-08-2023 Note HNO ID: [id number] Author: CLIFFORD NARAYAN RN Service: Care Management [...] would go by BLS Stretcher. Patient's facility, [facility] was made aware and they said they can have their transport come and order picker/assembler the scooter. Currently scooter and patient's belongings [...] planning. SIGNATURE: Clifford Narayan RN PATIENT NAME: Roselia Bal DATE: August 08, 2023 TIME: 3:06 PM PAGER/CONTACT #: [phone] [facility] 08-08-2023 Note HNO ID: [id number] Author: ABDIAZIZ LEAL APRN.CNP Service: Otolaryngology Author Type: Nurse Practitioner Type: Progress Notes Filed: 08/08/2023 09:32 Note Text: [facility] - HEAD AND NECK SURGERY PROGRESS NOTE PAGE [phone] AFTER 1700 AND ON WEEKENDS Patient Name: Roselia Bal Age: [age] year old Sex: female Date: August 08, 2023 Admission Date: 08/06/2023 Hospital Day: 1 ASSESSMENT/PLAN: Roselia Bal is a 73 year old female [...] Dispo: TERRA Wallace, PGY-2, Otolaryngology Service Pager: [phone] Pager: [phone] August 07, 2023 5:22 AM For questions after 5 PM and on weekends, please page [phone]. SUBJECTIVE: No acute events overnight. Pain well-controlled with current regimen. Breathing well on 2L NC. Not tolerating regular diet. Coughs with sips of water. Voice raspy, plan CODING AUDITOR for swallowing OBJECTIVE: Vitals: 08/07/23 1711 08/07/23 [...] 0659 08/08/23 07 - 08/09/23 0659 Shift 0086-0838 5729-9402 8616-0910 24 Hour Total 3644-0768 7150-7590 4146-4288 24 Hour Total INTAKE PO 0 0 0 0 PO 0 0 0 0 Supplements (mL) 0 0 0 IV 730 475 2697 Volume (mL) (NaCl 0.9% iv infusion) 095 403 7025 Irrigants 100 100 200 Irrigant/Flush Amount In mL (I/O) (GI/ Feeding Naris) 100 100 200 Shift Total 0 316 128 6639 OUTPUT Urine 500 815 008 6239 Output ( External Collection Device 08/06/23 2330) 500 503 196 6626 Tubes 20 15 35 Drain/Tube Output (Drain/Tube 08/06/23 1756 Domenico Herbert Left Neck) 20 15 35 # of BMs Number of BMs 0 x 0 x 0 x Shift Total 520 492 868 2038 Weight (kg) 96.2 96.2 96.2 96.2 96.2 [...] H PRN prochlorpe (more content not included)... [facility] 08-07-2023 Note HNO ID: [id number] Author: CLIFFORD NARAYAN RN Service: Care Management Author Type: Registered Nurse Type: Care Mgt Initial Assessment Filed: 08/07/2023 13:25 Note Text: CARE MANAGEMENT: ASSESSMENT AND DISCHARGE PLAN SERVICE DATE: August 07, 2023 SERVICE TIME: 12:57 PM PCP: Rosa Silva MD Primary Contact: Extended Emergency Contact Information Primary Emergency Contact: Gurvinder Estradaisten Relation: Daughter Secondary Emergency Contact: Anika Cedeno Mobile Relation: Sister Admission Status: Observation Insurance Provider: [employer] H[employer] D SNP Discharge Planning requested by: Per Department Practice Potential Transition Plans Other: See Comment (Return to facility. Possibly Skilled level of care) Advance Directives Current Advance Directive: Health Care Power of Superintendent Container Terminal In Chart: Yes Up To Date and Valid: Yes Current Living Arrangements and Support Lives with: Type of Residence: Extended Care Facility Care Facility Name: [facility] Support: Family members, Friends/neighbors, Children, Home care staff How do you manage to accomplish the following: Dependent: Ambulation;Bathe/Shower;Dress;Meals/M eal Prep;Going to the bathroom;Medication Management;Transportation to appointments/community Current Services/Equipment Current Post-Acute Service(s): DME Current DME Type: Continuous Positive Airway Pressure, Electric scooter, Bedside commode Discharge Planning Patient Goal(s): Other: See Comment (Return to Senior Living Care Facility) Advance of Choice Explained: Advance of Choice Given: Yes Level of Care Discussed: Other: See Comment ([facility]) Are you interested in bedside delivery [...] Susan on the phone. Patient lives in [facility]. She has lived there appx. 1.5 [...] planning. SIGNATURE: Clifford Narayan RN PATIENT NAME: Roselia Bal DATE: August 07, 2023 TIME: 12:57 PM CONTACT #: [phone] [facility] 08-07-2023 Note HNO ID: [id number] Author: FREEMAN WALLACE MD Service: Otolaryngology Author Type: Resident Type: Progress Notes Filed: 08/08/2023 06:52 Note Text: [facility] - HEAD AND NECK SURGERY PROGRESS NOTE PAGE [phone] AFTER 1700 AND ON WEEKENDS Patient Name: Roselia Bal Age: [age] year old Sex: female Date: August 07, 2023 Admission Date: 08/06/2023 Hospital Day: 1 ASSESSMENT/PLAN: Roselia Bal is a 73 year old female [...] Dispo: TERRA Wallace, PGY-2, Otolaryngology Service Pager: [phone] Pager: [phone] August 07, 2023 5:22 AM For questions after 5 PM and on weekends, please page [phone]. SUBJECTIVE: No acute events overnight. Pain well-controlled with current regimen. Breathing well on 2L NC. Not tolerating regular diet. Coughs with sips of water. Voice raspy, plan CODING AUDITOR for swallowing OBJECTIVE: Vitals: 08/06/23 2130 08/06/23 2200 08/06/23 2256 08/07/23 0143 BP: 121/56 119/58 115/66 (!) 115/48 Pulse: 103 102 98 99 Resp: 20 Temp: 37.2 ?C (99 ?F) 36.3 ?C (97.3 ?F) 36.5 ?C (97.7 ?F) TempSrc: Temporal Oral Oral SpO2: 95% 92% 95% 95% Ins AND Outs: Date 08/06/23 07 - 08/07/23 0659 08/07/23 07 - 08/08/23 0659 Shift 0620-8892 9344-2792 9192-3273 24 Hour Total 3212-5856 7572-2723 0382-0248 24 Hour Total INTAKE IV 2900 2900 [...] Wallace MD. LABS: Blood: Recent Labs 08/06/23 185 WBC 3.69* HB 10.5* HCT 32.2* PLT [...] g ORAL/FEEDING TUBE (more content not included)... [facility] 08-06-2023 Note HNO ID: [id number] Author: ALYSSA DUBON MD Service: ? Author [...] ETT SIGNATURE: Alyssa Dubon MD PATIENT NAME: Roselia Bal DATE: August 06, 2023 TIME: 1:23 PM CSN: [id number] [facility] 08-06-2023 Note HNO ID: [id number] Author: YOLANDA TERRELL APRN.ACCOUNTS PAYABLE ACCOUNTANT Service: ? Author Type: Nurse Utility Bill Complaints Investigator Type: Anesthesia Procedure Notes Filed: 08/06/2023 13:06 Note Text: ANESTHESIOLOGY PROCEDURE NOTE PIV General Information Procedure Start Time/Medication Administration: 08/06/2023 1:05 PM Patient Location: OR Staffing ACCOUNTS PAYABLE ACCOUNTANT: Yolanda Terrell APRN.ACCOUNTS PAYABLE ACCOUNTANT Performed by: anesthesiologist Preparation Sterility Preparation: hand hygiene performed prior to procedure, surgical cap used, mask used, skin prep agent completely dried prior to procedure Site Prep: alcohol Procedure Details Indication: need for IV access Needle Size/Type: 18 gauge angiocath Orientation: Left Location: Hand Imaging Guidance Used: No SIGNATURE: Yolanda Terrell APRN.CRNA PATIENT NAME: Roselia Bal DATE: August 06, 2023 TIME: 1:05 PM CSN: [id number] [facility] 06-27-2023 Note HNO ID: [id number] Author: Juan Jose Gutierrez MD Service: ? Author Type: Physician Type: Progress Notes Filed: 06/27/2023 4:53 PM Note Text: [facility] This consult was requested by Sarah Hubbard for an opinion regarding thyroid mass. My final recommendations will be communicated to the requesting provider by way of shared EMR or letter via the US mail. HPI: Roselia Bal is a 73 year old female, [...] HR BEFORE MEAL. 30 capsule 11 Insulin [place], Disposable, (PEN NEEDLE) 29 x 1/2 ndle Use daily for insulin as directed. 100 Each 1 sitaGLIPtin (JANUVI (more content not included)... [facility] 06-27-2023 Miscellaneous Notes AMBULATORY PATIENT EDUCATION [...] In Department: OTOLARYNGOLOGY documented in this encounter [facility] 06-27-2023 Note HNO ID: [id number] Author: Cate Negrete Service: ? Author Type: ? Type: Progress Notes Filed: 06/27/2023 4:53 PM Note Text: Tobacco Use: Never Was smoking cessation packet given? N/A - Patient is a non-smoker or quit >1 year ago. Was a referral initiated?N/A Patient is a non-smoker [facility] 06-27-2023 History of Present illness Narrative [facility] This consult was requested by Sarah Hubbard for an opinion regarding thyroid mass. My final recommendations will be communicated to the requesting provider by way of shared EMR or letter via the US mail. HPI: Roselia Bal is a 73 year old female, [...] HR BEFORE MEAL. 30 capsule 11 Insulin [place], Disposable, (PEN NEEDLE) 29 x 1/2 ndle [...] 250.00. INSULIN DEP: YES. [employer] Diabetic Supplies. Www.Appsfire.Cell-A-Spot 0 diltiazem CD (CARTIA XT) 180 mg [...] (FLONASE) 50 mcg/actuation nasal spray Use 1 Marlin in each nostril daily at bedtime. 1 [...] (3 mL) Inject subcutaneously. oxycodone HCl,terephth/aspirin (OXYCODONE [id number] ORAL) Take 10 mg by mouth every [...] qDay, # 60 cap(s), 0 Refill(s), Pharmacy: [facility] levoFLOXacin (LEVAQUIN) 750 mg tablet [...] widely patent. Juan Jose Gutierrez MD ASSESSMENT: Roselia Bal is a 73 year old female, [...] lobe may be necessary. I informed Ms. aBl of the risks of surgery which include [...] Making Level: 1 - N/A MD Odette Koibgal Attestation: By signing my name below, I, Sharon [place], attest that this documentation has been prepared under the direction and in the presence of Juan Jose Gutierrez MD. Electronically Signed: chuckie Watt, June 27, 2023 2:51 PM June 27, 2023 I participated in the history and physical exam of Roselia Bal. I discussed the management of Roselia Bal with the resident. I reviewed the resident's note and agree with the documented findings and plan of care. Juan Jose Gutierrez MD Tobacco Use: Never Was smoking cessation packet given? N/A - Patient is a non-smoker or quit >1 year ago. Was a referral initiated?N/A Patient is a non-smoker documented in this encounter [facility] 06-26-2023 Note HNO ID: [id number] Author: Blossom Trejo RT(R) Service: ? Author Type: Real Estate Broker Type: Progress Notes Filed: 06/26/2023 4:18 PM [...] and Neck SIGNATURE: RT Kraig(R) PATIENT NAME: Roselia Bal DATE: June 26, 2023 TIME: 4:17 PM [facility] 06-26-2023 History of Present illness Narrative [...] and Neck SIGNATURE: RT Kraig(R) PATIENT NAME: Roselia Bal DATE: June 26, 2023 TIME: 4:17 PM documented in this encounter [facility] 06-18-2023 Miscellaneous Notes I called Pt and told her she may schedule the CT neck and have her a number to call. I also asked her to not take metformin the day before the CT scan and not restarting until we document her kidney function is good. Hang Tanner. claudia Anand M.D. Endocrinology & Metabolism [place] documented in this encounter [facility] 06-10-2023 Miscellaneous Notes Attempted to reach patient to discuss plan of care going forward from Dr. Hubbard. Will attempt to reach patient again. NISHA Easley Endocrine Surgery documented in this encounter [facility] 06-07-2023 Note HNO ID: [id number] Author: Hang Smith MD Service: ? Author Type: Physician Type: Progress Notes Filed: 06/10/2023 11:09 AM Note Text: ENDOCRINOLOGY REASON FOR CONSULTATION: Thyroid cancer HISTORY Roselia Bal is a 73 year old female [...] limb movement dis (more content not included)... [facility] 06-07-2023 History of Present illness Narrative Images from the original note were not included. ENDOCRINOLOGY REASON FOR CONSULTATION: Thyroid cancer HISTORY Roselia Bal is a 73 year old female [...] for fever (specify temp.). oxycodone HCl,terephth/aspirin (OXYCODONE CRH-[id number]-JHC ORAL) Take 10 mg by mouth every [...] mg by mouth daily with breakfast.) Insulin [place], Disposable, (PEN NEEDLE) 29 x 1/2 ndle Use daily for insulin as directed. diltiazem CD (CARTIA XT) 180 mg 24 hr capsule Take 2 capsules by mouth once daily. pregabalin (LYRICA) 100 mg capsule Take 1 capsule by mouth three times daily. fluticasone (FLONASE) 50 mcg/actuation nasal spray Use 1 [place] in each nostril daily at bedtime. ALBUTEROL [...] qDay, # 60 cap(s), 0 Refill(s), Pharmacy: [facility] levoFLOXacin (LEVAQUIN) 750 mg tablet [...] PER DAY. DX: 250.00. INSULIN DEP: YES. [employer]. [email or web address] pravastatin 80 mg tablet Take 1 tablet [...] by Dr. Sarah Hubbard. ASSESSMENT & PLAN: Roselia Bal is a 73 year old female [...] which included preparing to see the patient, hwlq-[id number] patient care, completing clinical documentation, obtaining and/or reviewing separately obtained history, performing a medically appropriate examination, counseling and educating the patient/family/caregiver, and communicating with other HCPs (not separately reported). MD josefa Santana documented in this encounter [facility] 05-01-2023 Miscellaneous Notes Susan Estrada (Daughter) called in regarding their mother. Susan would like to know more information regarding her mothers' recent visit on 04/25. She also wanted to know more information on the appointment that she's scheduled for on 06/07 Good call back: [phone] documented in this encounter [facility] 04-26-2023 Miscellaneous Notes Please note, patient will hold Xarelto on 04/27/23 in anticipation of biopsy early next week. STAFF-INITIATED RADIOLOGY BIOPSY / ASPIRATION / DRAIN REQUEST FORM Date: April 26, 2023 Time: 4:05 PM PATIENT CONTACT INFORMATION: [phone] SCHEDULING: [facility] (Abdominal / Thoracic [...] OF THE REQUEST: US Date: 04/25/23 IMAGING: [facility] (If the imaging was obtained outside the [facility] system, PLEASE upload for review prior to approval.) Note to all persons requesting biopsies: All biopsy requests will be scheduled as quickly as possible, based on the clinical urgency, availability of appointment times, the need to hold anti-thrombolytic therapy (aspirin and other blood thinners) and the patient s schedule, including the need for an available tank truck driver. If a percutaneous biopsy or drainage is not felt to be safe or an alternative method for establishing a diagnosis is possible, this will be discussed directly with the requesting physician. documented in this encounter [facility] 04-25-2023 Note HNO ID: [id number] Author: Sarah Hubbard MD Service: ? Author Type: Physician Type: Progress Notes Filed: 04/25/2023 1:09 PM Note Text: Sarah Hubbard M.D. Department of Endocrine Surgery Endocrinology [place] [address] ENDOCRINE SURGERY NEW PATIENT VISIT NAME: Roselia Bal [facility] NO: [id number] : 1950 History of Present Illness: Roselia Bal is a 73 year old female referred by Dr. Petros Ortiz for evaluation of left-sided goiter with multiple nodules, largest 4 cm. Patient reports onset of dysphagia and hoarseness in 01/2023. Around the same time she noticed a left neck mass. She believes the mass has increased in size over the past 2 months. FNA of 3 separate left thyroid nodules - [place] 3 and 4. No molecular testing was [...] CAPSULE DAILY 1/2 HR BEFORE MEAL. Insulin [place], Disposable, (PEN NEEDLE) 29 x 1/2 ndle [...] 250.00. INSULIN DEP: YES. [employer]. [email or web address] diltiazem CD (CARTIA XT) 180 mg 24 hr capsule Take 2 capsules by mouth once daily. prega (more content not included)... [facility] 04-16-2023 Miscellaneous Notes 04/17/2023 - LVM for Anika Pao Appointment 04/25 FNA - 02/25/23 Thyroid US - 03/01/23 documented in this encounter [facility] 06-20-2021 Note . MICRO [...] Locations *1: This test was performed at: [facility], [address] [place] [address], [facility] , [facility] ([place]) 06-18-2021 Note . MICRO - Microbiology PROCEDURE: [...] Locations *1: This test was performed at: [facility], [address] [place] [address], [facility] , [facility] ([place]) 06-16-2021 Note ORIGINAL PROCEDURE: 1. PICC placement with fluoroscopy and ultrasound guidance NURSING HOME MANAGER: Sheir Maldonado PA-C CLINICAL STATEMENT: Left great toe [...] Date: 06/16/2021 4:14:24 PM Ordering Provider: KALYAN [facility] ([place]) 06-16-2021 Note . MICRO - Microbiology PROCEDURE: [...] Locations *1: This test was performed at: [facility], [address] [place] [address], [id number] , [facility] ([place]) 06-15-2021 Note . MICRO - Microbiology PROCEDURE: [...] Locations *1: This test was performed at: [facility], [address] [place] [address], [address] , [facility] ([place]) documented as of this encounter (statuses as of 04/17/2023) [facility] History of Past illness [...] of this encounter (statuses as of 04/27/2023) [facility] History of Past illness [...] of this encounter (statuses as of 05/04/2023) [facility] History of Past illness [...] of this encounter (statuses as of 06/10/2023) [facility] History of Past illness [...] of this encounter (statuses as of 06/11/2023) [facility] History of Past illness [...] of this encounter (statuses as of 06/19/2023) [facility] History of Past illness [...] of this encounter (statuses as of 06/27/2023) [facility] History of Past illness [...] of this encounter (statuses as of 06/28/2023) [facility] History of Past illness [...] of this encounter (statuses as of 06/28/2023) [facility] History of Past illness [...] as of this encounter (statuses as of 08/30/2023) [facility] History of Past illness [...] as of this encounter (statuses as of 08/30/2023) [facility] History of Past illness [...] as of this encounter (statuses as of 09/02/2023) [facility] Diagnosis Neck mass- Primary Swelling, mass, or lump in head and neck [facility] Diagnosis 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 and other parts of nervous system [facility] Diagnosis 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 and other parts of nervous system [facility] 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 and other parts of nervous system [facility] Diagnosis Thyroid cancer (HCC) Malignant neoplasm of thyroid gland [facility] Diagnosis Oropharyngeal dysphagia- Primary Dysphagia, oropharyngeal phase Thyroid cancer (HCC) Malignant neoplasm of thyroid gland [facility] Diagnosis Thyroid cancer (HCC) Malignant neoplasm of thyroid gland documented in this encounter [facility] for referral (narrative)* Diagnostic Procedure Only (Routine) - Pending Review Specialty Diagnoses / Procedures Referred By Grady t Referred To Contact MOLECULAR & FUNCTIONAL IMAGING Diagnoses Thyroid cancer (HCC) Procedures NM PET/CT SKULL-THIGH INITIAL PET IMAGING CT ATTENUATION SKULL BASE MID-THIGH Savannah Sharpe MD [address] [place] [address] Molecular & Functional Imaging [address] [place] [address] Referral ID Status Reason Start Date Expiration Date Visits Requested Visits Authorized [id number] Pending Review Auto-Generat ed Referral 08/29/2023 09/27/2024 1 1 [facility] Summary Purpose Family History No Family History Records FoundNo Family History Records Found Advance Directives Documents on File Type Date Recorded 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 Advance Directive(s) 04/29/2023 11:52 AM Documents on File Type Date Recorded 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 Advance Directive(s) 04/29/2023 11:52 AM Reason for Referral Specialty Diagnoses / Procedures Referred By Contac t Referred To Contact CT IMAGING Diagnoses Follicular neoplasm of thyroid Procedures CT NECK SOFT TISSUE W IVCON CT SOFT TISSUE NECK W/CONTRAST MATERIAL Hang Smith MD [address] [address] [address] [place] [address] Referral ID Status Reason Start Date Expiration Date Visits Requested Visits Authorized [id number] Pending Review Auto-Generat ed Referral 3 07/17/2024 1 1 Referral ID Status Reason Start Date Expiration Date V isits Requested Visits Authorized [id number] Closed Auto-Generate d Referral 06/18/2023 07/17/2024 1 1 Specialty Diagnoses / Procedures Referred By Contac t Referred To Contact Diagnoses Thyroid cancer (HCC) Procedures REFER TO PACC - PRE ANESTHESIA CONSULTATION CLINIC OFFICE/OUTPATIENT [facility] 60-74 MINUTES Juan Jose Gutierrez MD [address] [address] Referral ID Status Reason Start Date Expiration Date Visits Requested Visits Authorized [id number] Pending Review PCP Requested Referral 3 06/26/2024 1 1 Specialty Diagnoses / Procedures Referred By Contac t Referred To Contact [facility] Diagnoses Thyroid cancer (HCC) Procedures ECG COMPLETE ECG ROUTINE ECG W/LEAST 12 LDS W/I&R Juan Jose Gutierrez MD [address] [place] [address] [facility] [place] [address] [place] [address] Referral ID Status Reason Start Date Expiration Date Visits Requested Visits Authorized [id number] Pending Review Auto-Generat ed Referral 3 06/26/2024 1 1 Additional Source Comments INFORMATION SOURCE (unrecogn ized section and content) DATE CREATED AUTHOR AUTHOR'S ORGANIZ ATION 08/31/2023 [facility] Source Comments (unrecognize d section and content) In the event this informatio n is protected by the Federal Confidentiality of Alcohol and Drug Abuse Patient Records regulations: The Federal rules restrict any use of the information to criminally investigate or prosecute any alcohol or drug abuse patient.[facility] the event this information is protected by the Federal Confidentiality of Alcohol and Drug Abuse Patient Records regulations: The Federal rules restrict any use of the information to criminally investigate or prosecute any alcohol or drug abuse patient.[facility] the event this information is protected by the Federal Confidentiality of Alcohol and Drug Abuse Patient Records regulations: The Federal rules restrict any use of the information to criminally investigate or prosecute any alcohol or drug abuse patient.[facility] the event this information is protected by the Federal Confidentiality of Alcohol and Drug Abuse Patient Records regulations: The Federal rules restrict any use of the information to criminally investigate or prosecute any alcohol or drug abuse patient.[facility] the event this information is protected by the Federal Confidentiality of Alcohol and Drug Abuse Patient Records regulations: The Federal rules restrict any use of the information to criminally investigate or prosecute any alcohol or drug abuse patient.[facility] the event this information is protected by the Federal Confidentiality of Alcohol and Drug Abuse Patient Records regulations: The Federal rules restrict any use of the information to criminally investigate or prosecute any alcohol or drug abuse patient.[facility] the event this information is protected by the Federal Confidentiality of Alcohol and Drug Abuse Patient Records regulations: The Federal rules restrict any use of the information to criminally investigate or prosecute any alcohol or drug abuse patient.[facility] the event this information is protected by the Federal Confidentiality of Alcohol and Drug Abuse Patient Records regulations: The Federal rules restrict any use of the information to criminally investigate or prosecute any alcohol or drug abuse patient.[facility] the event this information is protected by the Federal Confidentiality of Alcohol and Drug Abuse Patient Records regulations: The Federal rules restrict any use of the information to criminally investigate or prosecute any alcohol or drug abuse patient.[facility] the event this information is protected by the Federal Confidentiality of Alcohol and Drug Abuse Patient Records regulations: The Federal rules restrict any use of the information to criminally investigate or prosecute any alcohol or drug abuse patient.[facility] the event this information is protected by the Federal Confidentiality of Alcohol and Drug Abuse Patient Records regulations: The Federal rules restrict any use of the information to criminally investigate or prosecute any alcohol or drug abuse patient.[facility] the event this information is protected by the Federal Confidentiality of Alcohol and Drug Abuse Patient Records regulations: The Federal rules restrict any use of the information to criminally investigate or prosecute any alcohol or drug abuse patient.[facility] Reason for Visit (unrecogniz ed section and content) Reason Comments Biopsy Request Reason Comments Patient Question Reason Comments Consult Specialty Diagnoses / Procedures Referred By Contcrissy t Referred To Contact Endocrinology / ENDOCRINOLOGY Diagnoses Thyroid Cancer Procedures [facility] [place] [address] [address] Hang Smith MD [address] [address] Referral ID Status Reason Start Date Expiration Date V isits Requested Visits Authorized [id number] Outside PCP 06/07/2023 08/06/2023 1 1 Reason Comments Patient Update Reason Comments Radiology CT Specialty Diagnoses / Procedures Referred By Contcrissy t Referred To Contact CT IMAGING Diagnoses Follicular neoplasm of thyroid Procedures CT NECK SOFT TISSUE W IVCON CT SOFT TISSUE NECK W/CONTRAST MATERIAL Hang Smith MD [address] [address] [place] [address] Referral ID Status Reason Start Date Expiration Date V isits Requested Visits Authorized [id number] Closed Auto-Generate d Referral 06/18/2023 07/17/2024 1 [...] HIGH MDM 40-54 MIN Rosa Silva MD [address] [place] [address] Juan Jose Gutierrez MD [address] [employer] [address] [address] Referral ID Status Reason Start Date Expiration Date Visits Requested Visits Authorized [id number] Authorized PCP Requested Referral 3 06/11/2024 99 99 Reason Comments Dysphagia Reason Comments New Patient Specialty Diagnoses / Procedures Referred By Grady eprez Referred To Contact [facility] Diagnoses Thyroid cancer (HCC) Procedures RAD/ONC CONSULT OFFICE/OUTPATIENT NEW HIGH MDM 60 MINUTES Juan Jose Gutierrez MD [address] [address] [facility] [address] [place] [address] Referral ID Status Reason Start Date Expiration Date V isits Requested Visits Authorized [id number] Closed PCP Requested Referral 08/20/2023 08/19/2024 1 1 Reason Comments Nm Pet Request Care Teams (unrecognized sec tion and content) Strike Operations Officer Relationship Specialty Start Date End Date Rosa Silva MD [address] [place] [address] PCP - General Gerontology 05/02/23 Strike Operations Officer Relationship Specialty Start Date End Date Rosa Silva MD [address] [place] [address] PCP - General Gerontology 05/02/23 Strike Operations Officer Relationship Specialty Start Date End Date Rosa Silva MD [address] [place] [address] PCP - General Gerontology 05/02/23 Strike Operations Officer Relationship Specialty Start Date End Date Rosa Silav MD [address] [place] [address] PCP - General Gerontology 05/02/23 Strike Operations Officer Relationship Specialty Start Date End Date Rosa Silva MD [address] [place] [address] PCP - General Gerontology 05/02/23 Strike Operations Officer Relationship Specialty Start Date End Date Rosa Silva MD [address] [place] [address] PCP - General Gerontology 05/02/23 Strike Operations Officer Relationship Specialty Start Date End Date Rosa Silva MD [address] [place] [address] PCP - General Gerontology 05/02/23 FOR RECORDS [...] BE BASED ON THE PRIMARY CLINICAL RECORDS. [facility] [employer]. provides no warranty or guarantee of the accuracy or completeness of information in this document.
[2023-09-03 10:02] LABS: Hematocrit 35.5 % (37-47); Hemoglobin 11.2 g/dL (12.0-15.0); Mean Corp Hgb Conc 31.5 g/dL (32-36); Mean Corpuscular Hgb 27.9 pg (27.0-32.0); Mean Corpuscular Volume 88.5 fL (81-99); Mean Platelet Vol. 11.6 fl (6.2-12.0); Platelet Count 179 K/mm3 (150-450); RBC Distribution Width CV 15.8 % (11.6-14.6); RBC Distribution Width SD 50.7 fl (35.1-43.9); Red Blood Count 4.01 M/mm3 (4.2-5.4); White Blood Count 5.3 K/mm3 (4.4-11.0)
[2023-09-03 10:17] LABS: Anion Gap 4 (5-15); BUN 29 mg/dL (7-18); BUN/Creat Ratio 39.9 RATIO (10-20); Calcium,Total 9.3 mg/dL (8.5-10.1); Chloride 103 mmol/L (98-107); Creatinine, Serum 0.73 mg/dL (0.55-1.02); EST Glomerular Filtration Rate 83 mL/min (>60); Est Glom Filt Rate - Afr Amer 100 mL/min (>60); Glucose 215 mg/dL (74-106); Magnesium 2.2 mg/dL (1.6-2.6); Potassium 4.2 mmol/L (3.5-5.1); Sodium Level 136 mmol/L (136-145)
== END ==
LOC: OLS.SW 04:00
PROVIDERS: PCP Internal Medicine; Referring Provider Internal Medicine; Visit Provider Internal Medicine
DX: I48.91 Unspecified atrial fibrillation (principal); D64.9 Anemia, unspecified; E11.9 Type 2 diabetes mellitus without complications
CPT/HCPCS: 36415; 80048; 83735; 85027

== ENCOUNTER → 2023-09-10 | Outpatient (REF) | payer OTHER, MEDICAID, SELFPAY ==
--- OUTSIDE RECORDS SUMMARY | 2023-09-10 05:21 | XMS RPT_ITS | CCD ---
Author Name Unknown Address [address] [place] [address] Organization [facility] Care Team Providers Care Program Control Analyst Name Role Phone Unavailable Primary Care Provider Unavailrashad Silva MD, Rosa Vicente Primary Care Provider [phone] Shira SNYDER, Rosa Vicente Primary Care Provider Mel Cramer MD Unavailable CEM AVILES Attending Unavailable GUDLA, ROSA D [...] Unavailable JUAN JOSE GUTIERREZ Attending Unavailable HANG MARTINEZ Referring Unavai lable GUDLA, ROSA D Primary Care Unavailable HANG MARTINEZ Referring Unavai lable GUDLA, ROSA D Primary Care Unavailable PETROS PAIZ Referring Unavailable DEL HANG RENO Attending Unavai lable GUDLA, ROSA D Primary Care Unavailable SARAH HUBBARD Referring Unavailable BATSHEVA AZAR Referring Unavailable SARAH HUBBARD Attending Unavailable CELIA TAVERAS Attending Unavailable CELIA TAVERAS Admitting Unavailable GUDLA, ROSA D Primary Care Unavailable Allergies Allergy Classification Reported Allergen(s) Allergy Type Date of Onset Reaction(s) Facility (15 sources) Latex; Translations: [LATEX, NATURAL RUBBER] Drug Allergy 4 Itching [facility] Work Phone: (15 sources) Penicillins; Translations: [PENICILLINS] Propensity to adverse reactions 7 Anaphylaxis [facility] Work Phone: (15 sources) Salicylate product; Translations: [SALICYLATES] Propensity to adverse reactions 7 Hives [facility] Work Phone: (15 sources) Sulfonamides (Antibiotic); Translations: [SULFA (SULFONAMIDE ANTIBIOTICS)] Propensity to adverse reactions 7 Anaphylaxis [facility] Work Phone: (14 sources) Aspirin; Translations: [ASPIRIN] Drug Allergy 1 Unknown [facility] Medications Completed/Discontinued Medications Medication Drug Class(es) Dates Sig (Normalized) Sig (Original) acetaminophen 325 mg oral tablet (11 sources) take 2 tablets by mouth every four hours as needed acetaminophen (TYLENOL) 325 mg tablet Take 650 mg by mouth every 4 hours as needed for fever (specify temp.). 0 Active Problems Active Problems Problem Classification Problem Date Documented Da te Episodic/Chronic Anxiety disorders (6 sources) Mixed anxiety and depressive disorder; Translations: [Anxiety disorder, unspecified] Onset: 12-26-2006 08-07-2023 Chronic Asthma (15 sources) Unspecified asthma, uncomplicated; Translations: [Asthma, unspecified type, unspecified] Onset: 12-26-2006 12-26-2006 Chronic Cancer of thyroid (9 sources) Malignant tumor of thyroid gland; Translations: [Malignant neoplasm of thyroid gland] Onset: 08-06-2023 06-27-2023 Chronic Cardiac dysrhythmias (6 sources) Atrial fibrillation; Translations: [Unspecified atrial fibrillation] Onset: 08-02-2023 08-07-2023 Chronic Deficiency and other anemia (5 sources) Iron deficiency anemia; Translations: [Iron deficiency anemia, unspecified] Onset: 08-02-2023 08-07-2023 Episodic Deficiency and other anemia (1 source) Iron deficiency anemia, unspecified; Translations: [Iron deficiency anemia, unspecified iron deficiency anemia type] Onset: 08-02-2023 Episodic Diabetes mellitus with complications (15 sources) Type 2 diabetes mellitus; Translations: [Type II or unspecified type diabetes mellitus without mention of complication, uncontrolled] Onset: 12-26-2006 02-02-2014 Chronic Disorders of lipid metabolism (14 sources) Hyperlipidemia; Translations: [Hyperlipidemia, unspecified] Onset: 07-01-2007 07-01-2007 Chronic Essential hypertension (15 sources) Benign essential hypertension; Translations: [Essential (primary) [...] system] Onset: 06-26-2023 06-10-2023 Episodic Noninfectious gastroenteritis (6 sources) Collagenous colitis; Translations: [Collagenous colitis] Onset: 08-02-2023 08-07-2023 Chronic Nutritional deficiencies (14 sources) Vitamin D deficiency; Translations: [Vitamin D deficiency, unspecified] Onset: 07-02-2007 07-02-2007 Chronic Osteoarthritis (14 sources) Degenerative joint disease involving multiple joints; Translations: [Polyosteoarthritis , unspecified] Onset: 12-26-2006 12-26-2006 Chronic Osteoporosis (15 sources) Osteoporosis; Translations: [Age-related osteoporosis without current pathological fracture] Onset: 02-12-2013 02-12-2013 Chronic Other aftercare (5 sources) Insulin dose changed; Translations: [[facility] (current) use of insulin] Onset: 08-09-2023 08-09-2023 Episodic Other aftercare (1 source) [facility] (current) use of insulin; Translations: [Type 2 diabetes mellitus with diabetic polyneuropathy, with long-term current use of insulin (HCC)] Onset: 08-02-2023 Episodic Other connective tissue disease (5 sources) Fibromyalgia; Translations: [Fibromyalgia] Onset: 08-02-2023 08-07-2023 Episodic Other connective tissue disease (1 source) Fibromyalgia; Translations: [Fibromyalgia] Onset: 08-02-2023 Episodic Other gastrointestinal disorders (6 sources) Oropharyngeal dysphagia; Translations: [Dysphagia, oropharyngeal phase] Onset: 08-07-2023 08-29-2023 Episodic Other nervous system disorders (14 sources) Critical illness polyneuropathy; Translations: [Critical illness polyneuropathy] Onset: 10-27-2006 07-24-2021 Chronic Other nutritional; endocrine; and metabolic disorders (14 sources) Morbid obesity; Translations: [Morbid (severe) obesity due to excess calories] Onset: 08-23-2011 08-23-2011 Chronic Other nutritional; endocrine; and metabolic disorders (13 sources) Body mass index 40+ - severely obese; Translations: [Morbid (severe) obesity due to excess calories] Onset: 04-25-2023 04-25-2023 Chronic Other nutritional; endocrine; and metabolic disorders (2 sources) Morbid (severe) obesity due to excess calories; Translations: [Morbid obesity (HCC)] Onset: 08-23-2011 Chronic Other skin disorders (1 source) Mass of neck; Translations: [Localized swelling, mass and lump, neck] 04-26-2023 Episodic Other upper respiratory disease (14 sources) Chronic rhinitis; Translations: [Chronic rhinitis] Onset: 12-26-2006 12-26-2006 Chronic Phlebitis; thrombophlebitis and thromboembolism (6 sources) H/O: Deep vein thrombosis; Translations: [Personal history of other venous thrombosis and embolism] Onset: 08-02-2023 08-07-2023 Episodic Residual codes; unclassified (14 sources) Obstructive sleep apnea syndrome; Translations: [Obstructive sleep apnea (adult) (pediatric)] Onset: 11-01-2006 07-24-2021 Chronic Residual codes; unclassified (14 sources) Periodic limb movement disorder; Translations: [Periodic [...] Documented Date Episodic/Chronic Calculus of urinary tract (14 sources) Kidney stone; Translations: [Calculus of kidney] Onset: 08-23-2011 08-23-2011 Episodic Headache; including migraine (14 sources) Headache; Translations: [Headache] Onset: 12-26-2006 12-26-2006 Episodic Other diseases of veins and lymphatics (14 sources) Vascular insufficiency; Translations: [Venous insufficiency (chronic) (peripheral)] Onset: 07-05-2011 07-05-2011 Episodic Other diseases of veins and lymphatics (1 source) Venous insufficiency (chronic) (peripheral); Translations: [Venous insufficiency] Onset: 07-05-2011 Episodic Other skin disorders (1 source) Localized swelling, mass and lump, neck; Translations: [Neck mass] Onset: 05-24-2023 Episodic Spondylosis; intervertebral disc disorders; other back problems (15 sources) Low back pain; Translations: [Lumbago] Onset: 12-26-2006 07-24-2021 Episodic Results Test Name Value Interpretation Reference Range Facil ity Vital Signs Date Time Vital Sign Value Performing Clinician Chase bustamante 08-29-2023 12:54-0500 Body temperature 97 [degF] Savannah Sharpe MD Work Phone: [facility] 08-29-2023 12:54-0500 Diastolic blood pressure 58 mm[Hg] Savannah Sharpe MD Work Phone: [facility] 08-29-2023 12:54-0500 Heart rate 94 /min Savannah Sharpe MD Work Phone: [facility] 08-29-2023 12:54-0500 Respiratory rate 18 /min Savannah Sharpe MD Work Phone: [facility] 08-29-2023 12:54-0500 SaO2% (BldA) [Mass fraction] 96 % Savannah Sharpe MD Work Phone: [facility] 08-29-2023 12:54-0500 Systolic blood pressure 136 mm[Hg] Savannah Sharpe MD Work Phone: [facility] 06-07-2023 08:24-0500 Body height 157.5 cm Hang Martinez MD Work Phone: [facility] 06-07-2023 08:24-0500 Body weight 97.07 kg Hang Martinez MD Work Phone: [facility] 06-07-2023 08:24-0500 Diastolic blood pressure 53 mm[Hg] Hang Martinez MD Work Phone: [facility] 06-07-2023 08:24-0500 Heart rate 92 /min Hang Martinez MD Work Phone: [facility] 06-07-2023 08:24-0500 Systolic blood pressure 125 mm[Hg] Hang Martinez MD Work Phone: [facility] Encounters Encounter Date Encounter Type Care Provider Facility Start: 09-05-2023 ambulatory Savannah Sharpe MD Work Phone: Radiation Oncology Procedures Date Procedure Procedure Detail Performing Clinician Start: 06-26-2023 Ct soft tissue neck w/contrast material Hang Martinez MD Work Phone: Start: 06-28-2005 Colonoscopy Sarah Hubbard MD Work Phone: Plan of Treatment Date Care Activity Detail Author Start: 06-07-2024 BP Controlled (<130/80) BP Controlle d (<130/80) [facility] Start: 07-29-2023 Advance Directive Discussion Advance Directive Discussion [facility] Start: 06-27-2023 End: 09-26-2023 Basic metabolic 2000 panel - Serum or Plasma BASIC METABOLIC PNL Lab Routine Thyroid cancer (HCC) Expected: 06/27/2023, Expires: 09/26/2023 [facility] Work Phone: Immunizations Immunization Date Immunization Notes Care Provider Fa cili 06-21-2021 influenza virus vacc ine, unspecified formulation Sarah Hubbard MD Work Phone: [facility] 05-09-2018 influenza virus vacc ine, unspecified formulation Sarah Hubbard MD Work Phone: [facility] 05-13-2014 influenza, seasonal, injectable Sarah Hubbard MD Work Phone: [facility] 05-15-2013 influenza virus vacc ine, unspecified formulation Sarah Hubbard MD Work Phone: [facility] Work Phone: 11-08-2012 pneumococcal polysaccharide vaccine, 23 valent Sarah Hubbard MD Work Phone: [facility] 05-12-2012 influenza virus vacc ine, unspecified formulation Sarah Hubbard MD Work Phone: [facility] Work Phone: 05-16-2011 influenza virus vacc ine, unspecified formulation Sarah Hubbard MD Work Phone: [facility] Work Phone: 11-04-2008 tetanus and diphther ia toxoids, adsorbed, preservative free, for adult use (2 Lf of tetanus toxoid and 2 Lf of diphtheria toxoid) Sarah Hubbard MD Work Phone: [facility] Work Phone: 09-02-2008 influenza virus vacc ine, unspecified formulation Sarah Hubbard MD Work Phone: [facility] Work Phone: 06-26-2007 influenza virus vacc ine, unspecified formulation Sarah Hubbard MD Work Phone: [facility] Work Phone: 07-29-1994 pneumococcal polysaccharide vaccine, 23 valent Sarah Hubbard MD Work Phone: [facility] Work Phone: Payers Date Payer Category Payer Medicare [id number] 2021 Medicare [id number] 2019 Medicaid [employer] [id number] 2019-Present [phone] [address] [place] [address] Medicaid [id number] 2019 Medicaid [id number] Social History Date Type Detail Facility Start: 07-05-2011 Tobacco smoking stat us NHIS Never smoked tobacco [facility] Work Phone: Start: 07-05-2011 Tobacco use and exposure Smokeless tobacco non-user [facility] Work Phone: Start: 03-14-2022 End: 08-29-2023 Alcohol intake Current non-drinker of alcohol (finding) [facility] Start: 03-22-2016 End: 04-25-2023 History of Social function [facility] Start: 03-22-2016 End: 04-25-2023 Tobacco use panel [facility] National Score (1-100), lower number is lower risk Not on file [facility] Start: 12-26-2006 [facility] Start: 1950 [facility] Start: 1950 [facility] Start: 06-19-2023 Gender identity Identifies as female gender (finding) [facility] Medical Equipment Procedure Code Equipment Code Equipment Origin al Text Equipment Identifier Dates Stent Uret 7fr 2 4cm W/O Gw Inl - [id number] Start: 01-13-2013 TEST BLOOD SUGAR 4 TIMES PER DAY. DX: 250.00. INSULIN DEP: YES. AM-MED Diabetic Supplies. [email or web address] Start: 01-07-2014 Clinical Notes 08-23-2011 to 09-04-2023 Telephone Encounter - Dinah Pleitez - 09/04/2023 11:57 AM ESTTelephone Encounter - Dinah Pleitez - 09/04/2023 11:43 AM ESTTelephone Encounter - Piper Lopez - 09/03/2023 11:38 AM EST Note Date & Type Note Facility 09-04-2023 Miscellaneous Notes [facility] called back patient and we got her scheduled Dinah Maik Called Phone Number on patient Chart unable to get through called [facility] and left a message to return our call Dinahnael Pleitez 2nd attempt. Unable to leave message. No VM. Patient to schedule New Patient Consult with Dr. Cramer. Thyroid Cancer Consult/Ref Prov Dr. Sharep* Attempted to call patient. Phone was busy- unable to leave message Cecilia Epps Per Dr Cramer; Please schedule pt for new consult with Dr Cramer for thyroid cancer, referring doctor- Dr Sharpe Pt is non skilled at [facility] documented in this encounter [facility] 09-02-2023 Miscellaneous Notes 2 1st attempt. Unable to leave vm Authorization number: ORM / GPS to process Authorization date range: ORM / GPS to process Primary Insurance: Aet Medicare Diagnosis: Thyroid cancer (HCC) [C73] DX [...] freeman referral urgent, if needed. Comments for First Aid Attendant: N/A ROUTE TO SCHEDULERS POOL P PET GRANITE INSTALLER or P NM SPECIAL STUDIES This form is used for [place]IN [place] APPOINTMENTS ONLY. Is this request for a Main [place] PET scan appointment? Yes: Senior Nurse Manager: Jessica Urrutia Requesting Person (Last Name, First Name): Jessica Urrutia Area Code + Phone/Pager: [phone] Who do we call to schedule this appointment? Patient Requesting Staff Savannah Sharpe Area Code + Phone/Pager: [phone] PET Orders (A delay in scheduling will [...] patient need anesthesia? NO Send requests to P COORD REVIEW documented in this encounter [facility] 08-29-2023 Note HNO ID: [id number] Author: CEM AVILES CCC-PATIENT SUPPORT ASSISTANT Service: ? Author Type: Speech Language Pathologist Type: Progress Notes Filed: 08/29/2023 15:38 Note Text: [facility] SPEECH PATHOLOGY Post-Operative Evaluation and Counseling Fiberoptic [...] this diet, and only yesterday did the PATIENT SUPPORT ASSISTANT at facility upgrade her to Thin Liquids, but with continued Soft Solids based on a clinical swallow assessment, as facility does not have the means to complete instrumental. Given extent of surgery, including sacrifice recurrent laryngeal nerve, it was decided to complete FEES to determine appropriate for oral diet and determine readiness for oral diet advancement. Provided patient with PATIENT SUPPORT ASSISTANT's contact information in case treating PATIENT SUPPORT ASSISTANT at facility in which she resides would [...] to complete therapy closer to home, in [place]. Encouraged her to follow up with PATIENT SUPPORT ASSISTANT as needed in conjunction with other appointments. [...] L VC impairment Plan: Follow up with PATIENT SUPPORT ASSISTANT, PRN in conjunction with other appointments. Diagnosis/history: [...] . Other and unspecified hyperlipidemia 07/01/2007 Panniculitis (more content not included)... [facility] 08-29-2023 Note HNO ID: [id number] Author: SAVANNAH SHARPE MD Service: ? Author [...] diet since surgery but was evaluated by PATIENT SUPPORT ASSISTANT in her alf and is now encouraged to expand her [...] COMMENT: The prior left lobe aspirate sample ([id number]) is noted to show KRAS Q61R and [...] as poorly differentia (more content not included)... [facility] 08-29-2023 History of Present illness Narrative [facility] SPEECH PATHOLOGY Post-Operative Evaluation and Counseling Fiberoptic Endoscopic Evaluation of Swallowing (FEES) - Post-Operative Date: August 29, 2023 Patient: Roselia Bal Referred by: Juan Jose Gutierrez MD Impressions: Ms. aBl seen this date for post-operative follow up. [...] this diet, and only yesterday did the PATIENT SUPPORT ASSISTANT at facility upgrade her to Thin Liquids, but with continued Soft Solids based on a clinical swallow assessment, as facility does not have the means to complete instrumental. Given extent of surgery, including sacrifice recurrent laryngeal nerve, it was decided to complete FEES to determine appropriate for oral diet and determine readiness for oral diet advancement. Provided patient with PATIENT SUPPORT ASSISTANT's contact information in case treating PATIENT SUPPORT ASSISTANT at facility in which she resides would [...] to complete therapy closer to home, in [place]. Encouraged her to follow up with PATIENT SUPPORT ASSISTANT as needed in conjunction with other appointments. [...] L VC impairment Plan: Follow up with PATIENT SUPPORT ASSISTANT, PRN in conjunction with other appointments. Diagnosis/history: [...] PASSED THROUGH: Left nasal passage ANESTHESIA: Yes [place] administration via Left nasal passage ANATOMY AND PHYSIOLOGY EXAM: Nasal Cavity: blood, otherwise WFL Velar closure( pa-pa-pa / [id number]-[id number]-gvzft ): Reduced Base of Tongue retraction ( [...] and is not ejected from the airway [place] Residue Scale: None= No residue in valleculae or pyriform sinus Trace= trace coating of the mucosa in the valleculae and/or pyriform sinus - purees Mild= Epiglottic ligament is visible, pyriform sinus if up to a quarter full Moderate= epiglottic ligament is covered, pyriform sinus is residential full Severe= Valleculae is filled to epiglottic [...] - No restriction of place, food or supervisor toy assembly (eats out at any opportunity) Understandability of Speech: 75 - Understandable most of the time, occasional repetition necessary Onset of Illness: 08/06/23 Initial Date of Treatment: August 29, 2023 Treatment Plan Date: August 29, 2023 Cem Aviles M.A., CCC-PATIENT SUPPORT ASSISTANT Speech-Language Pathologist Pager: [phone] documented in this encounter [facility] 08-29-2023 History of Present illness Narrative [...] diet since surgery but was evaluated by PATIENT SUPPORT ASSISTANT in her alf and is now encouraged to expand her [...] COMMENT: The prior left lobe aspirate sample ([id number]) is noted to show KRAS Q61R and [...] mg by mouth daily with breakfast.) Insulin [place], Disposable, (PEN NEEDLE) 29 x 1/2 ndle^Use [...] 250.00. INSULIN DEP: YES. AM-MED Diabetic Supplies. [email or web address]^Disp: ^Rfl: 0 diltiazem CD (CARTIA XT) 180 [...] fluticasone (FLONASE) 50 mcg/actuation nasal spray^Use 1 [place] in each nostril daily at bedtime.^Disp: 1 [...] No Heavy Alcohol Consumption: No Lives in: [place], [place] Social Support: Lives in alf. Has a supportive daughter in [place]. 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 COMPLETE REVIEW OF SYSTEMS: GENERAL: feeling well, [...] discussed the logistics of receiving treatment at [facility] versus closer to her alf at [place]. She will determine whether daily transportation to [facility] is feasible but will meet with Dr. Cramer in [place] in the interim. After I spoke to [...] including the salivary glands, pharyngeal constrictors and PROCESS CONTROLLER structures. Daily cone beam CT will be used to ensure accurate daily localization. Medical Decision Making: Problems: High: Illness/injury w/ threat to life/body function Data: Unique test result(s) reviewed: 2 Risk: High: High risk from testing/treatment Medical Decision Making Level: 5 - High Signed by: MD Chuckie Dorsey Attestation: By signing my name below, Allie Joy, attest that this documentation has been prepared under the direction and in the presence of Savannah Sharpe MD. Electronically Signed: chuckie Foreman, August 29, 2023 12:46 PM Provider Attestation: Savannah Joy MD, personally performed the services described in this documentation. All medical record entries made by the natividadibgal were at my direction and in my presence. I have reviewed the chart and discharge instructions (if applicable) and agree that the record reflects my personal performance and is accurate and complete. Electronically Signed: Savannah Sharpe MD cc: Rosa Bradleymarily [address] [place] [address] Juan Jose Gutierrez MD [facility] documented in this encounter [facility] 08-29-2023 Nurse Note Additional intake questions: Has the patient had fever, nausea, vomiting, diarrhea, constipation, fatigue for > 1 week? Yes, fatigue Does the patient have a decreased appetite? No Does patient want to see a Distribution Collection Operator? No (yes to any of above refer patient to schedulers for dietitian appointment) ) Does patient have any new or increased numbness or tingling of extremities? History of neuropathy Is patient interested in fertility information? NA Does patient need any prescription refills? No Does patient have an advanced directive in place? Yes, copies are in mcTEL Electronically Signed By: Yolanda Schmitz Ma documented in this encounter [facility] 08-22-2023 Note HNO ID: [id number] Author: JUAN JOSE GUTIERREZ MD Service: ? Author Type: Physician Type: Progress Notes Filed: 08/23/2023 10:45 Note Text: [facility] Note CC: Post op of [...] daily with breakfast.) 60 tablet 6 Insulin [place], Disposable, (PEN NEEDLE) 29 x 1/2 ndle [...] PER DAY. DX: 250.00. INSULIN DEP: YES. -RetAPPs Diabetic Supplies. Www[employer] 0 diltiazem CD (CARTIA XT) 180 mg [...] (FLONASE) 50 mcg/actuation nasal spray Use 1 [place] in each nostril daily at bedtime. 1 [...] Medication Dose Ro (more content not included)... [facility] 08-11-2023 Note HNO ID: [id number] Author: JACQUELYN GONZALEZ MD Service: Otolaryngology Author Type: Resident Type: Progress Notes Filed: 08/11/2023 07:14 Note Text: [facility] OTOL[facility]Y - HEAD AND NECK SURGERY PROGRESS NOTE PAGE [id number] AFTER 1700 AND ON WEEKENDS Patient Name: [...] Otolaryngology - Head and Neck Surgery Pager: [phone] After 5 PM on weekdays OR weekends/holidays: [phone] SUBJECTIVE: Eating 75-80% of meal trays per nursing. OBJECTIVE: Vitals: 08/10/23 1548 08/10/23 1741 08/10/23 2042 08/11/23 0145 BP: 114/54 107/84 (!) 100/48 124/55 Pulse: 89 85 80 76 Resp: 18 18 17 Temp: 36.6 ?C (97.9 ?F) 36.5 ?C (97.7 ?F) 36.7 ?C (98.1 ?F) TempSrc: Oral Axillary Axillary SpO2: 95% 92% 95% 95% Weight: Height: Ins AND Outs: Date 08/10/23 0700 - 08/11/23 0659 08/11/23 0700 - 08/12/23 0659 Shift 6283-8935 6403-9539 4438-3785 24 Hour Total 3366-4063 7409-3507 8375-1132 24 Hour Total INTAKE PO(mL/kg) 510(5.3) 510(5.3) PO 360 360 Supplements (mL) 150 150 IV(mL/kg) 10(0.1) 10(0.1) Volume (mL) (NaCl 0.9% iv flush bag) 10 10 Shift Total(mL/kg) 520(5.41) 520(5.41) OUTPUT Urine(mL/kg/hr) 1051(1.37) 901(1.17) 195 Void (ml) 1 1 2 Urine Incontinence/Not Saved 1 x 1 x Urine Not Saved. 1 x 1 x Output ( External Collection Device 08/06/23 2330) 2202 013 9979 # of BMs(mL/kg) Stool Incontinence 2 x [...] place Procedure: None LABS: Blood: Recent Labs 08/10/2391208/09/23 0836 08/08/23 0633 WBC 5.98 3.92 3.11* HB 12.5 10.2* 10.1* HCT 37.4 31.2* 31.3* PLT 126* 140* 109* MCV 83.5 82.5 86.2 MCH 27.9 27.0 27.8 MCHC 33.4 32.7 32.3 RDWCV 14.3 14.2 14.9 MPV 11.3 11.5 11.3 Recent Labs 08/10/2391208/09/23 0836 08/08/23 0634 NA 140 142 144 [...] tab(s) (LACTAID) 9,0 (more content not included)... [facility] 08-10-2023 Note HNO ID: [id number] Author: FREEMAN WALLACE MD Service: Otolaryngology Author Type: Resident Type: Progress Notes Filed: 08/10/2023 09:46 Note Text: [facility] OTOLARY[facility]Y - HEAD AND NECK SURGERY PROGRESS NOTE PAGE [phone] AFTER 1700 AND ON WEEKENDS Patient Name: [...] Dispo: TERRA Wallace, PGY-2, Otolaryngology Service Pager: [phone] Pager: [phone] August 07, 2023 5:22 AM For questions after 5 PM and on weekends, please page [phone]. SUBJECTIVE: Canceled AMET overnight for AMS. At [...] Outs: Date 08/09/23 07 - 08/10/23 0659 08/10/23699 - 08/11/23 0659 Shift 8879-8997 0742-7427 3505-3838 24 Hour Total 9337-9741 4082-0321 4260-2239 24 Hour Total INTAKE PO(mL/kg) 180(1.87) 780(8.11) [...] Output ( External Collection Device 08/06/23 2330) 960 247 9075 # of BMs(mL/kg) Stool Incontinence 2 x [...] TUBE BID pant (more content not included)... [facility] 08-10-2023 Note HNO ID: [id number] Author: NOTE, INTERFACE, ? Service: ? Author Type: ? Type: Progress Notes Filed: 08/10/2023 02:16 Note Text: Epic Scheduled Downtime: 08/10/2023 1:00:00 AM to 08/10/2023 2:04:22 AM [facility] 08-09-2023 Note HNO ID: [id number] Author: CLIFFORD CHASE RN Service: Care Management Author Type: Registered Nurse Type: Care Mgt Progress Note Filed: 08/09/2023 15:03 Note Text: CARE MANAGEMENT WEEKEND PLANNING NOTE DISCHARGE OR POSSIBLE DISCHARGE Date/Time: Saturday08/11/2023 / 2pm Disposition: Extended Care Facility - Precert Obtained: No Facility Name: [facility] Facility Phone #: [phone] Facility Fax #: [phone] Call Report To: [phone] D/C Packet Completed: Yes - Location of Packet: [facility]: Mode of Transportation: Ambulance Transportation Agency and Phone #: [facility] [phone] . Date of Trip: 08/11/2023 / 2PM trip #[id number] Type of Service: BLS Non-emergency Is Patient Medicaid Pending: No Discussion of financial coverage occurred with Patient and Electric Razor Assembler . Dermatology Specialist Location: H5115 Destination: [facility] Per medical team patient may be ready [...] for Care Management Weekend/Holiday coverage. SIGNATURE: Clifford Chase RN PATIENT NAME: Roselia Bal DATE: August 09, 2023 TIME: 2:53 PM PAGER/CONTACT #: [phone] [facility] 08-09-2023 Note HNO ID: [id number] Author: KRISTIN APARICIO RT(R) Service: Radiology Author Type: Technologist Type: [...] RT Cat(R) August 09, 2023 11:13 AM [facility] 08-09-2023 Note HNO ID: [id number] Author: FREEMAN WALLACE MD Service: Otolaryngology Author Type: Resident Type: Progress Notes Filed: 08/09/2023 07:05 Note Text: [facility] OTOLARY[facility]Y - HEAD AND NECK SURGERY PROGRESS NOTE PAGE [phone] AFTER 1700 AND ON WEEKENDS Patient Name: [...] Dispo: TERRA Wallace, PGY-2, Otolaryngology Service Pager: [phone] Pager: [phone] August 07, 2023 5:22 AM For questions after 5 PM and on weekends, please page [phone]. SUBJECTIVE: No acute events overnight. Pain well-controlled [...] 0659 08/09/23 0700 - 08/10/23 0659 Shift 1899-9810 6372-8203 9135-3742 24 Hour Total 8140-1023 5922-4820 3832-1918 24 Hour Total INTAKE PO 105 105 0 210 PO 105 105 0 210 Supplements (mL) 0 0 0 IV 700 800 0 1500 Volume (mL) (NaCl 0.9% iv infusion) 700 800 0 1500 Irrigants 90 90 280 460 Irrigant/Flush Amount In mL (I/O) (GI/ Feeding Naris) 90 90 280 460 Gastric Tube 80 904 915 3762 Tube Feed Intake mL (I/O) (GI/ Feeding Naris) 80 895 256 5855 Shift Total 975 3319 524 2874 OUTPUT Urine 2400 272 431 0897 Urine Not Saved. 2 x 1 x 3 x Output ( External Collection Device 08/06/23 2330) 2400 565 646 0629 Tubes 1 1 Drain/Tube Output (Drain/Tube 08/06/23 1756 Domenico Herbert Left Neck) 1 1 # of BMs Number of BMs 1 x 0 x 0 x 1 x Stool 0 0 0 Liquid BM (mL) 0 0 0 Shift Total 2400 868 824 3379 Weight (kg) 96.2 96.2 96.2 96.2 96.2 [...] TUBE DAILY alex (more content not included)... [facility] 08-08-2023 Note HNO ID: [id number] Author: CLIFFORD CHASE, RN Service: Care Management Author Type: Registered [...] it was decided patient would go by Yamile Mejia. Patient's facility, [facility] was made aware and they said they can have their transport come and corn picker the scooter. Currently scooter and patient's [...] follow POC for discharge planning. SIGNATURE: Clifford Chase RN PATIENT NAME: Roselia Bal DATE: August 08, 2023 TIME: 3:06 PM PAGER/CONTACT #: [phone] [facility] 08-08-2023 Note HNO ID: [id number] Author: ABDIAZIZ LEAL APRN.CNP Service: Otolaryngology Author Type: Nurse Practitioner Type: Progress Notes Filed: 08/08/2023 09:32 Note Text: [facility] OT[facility]Y - HEAD AND NECK SURGERY PROGRESS NOTE PAGE [phone] AFTER 1700 AND ON WEEKENDS Patient Name: [...] Dispo: TERRA Wallace, PGY-2, Otolaryngology Service Pager: [phone] Pager: [phone] August 07, 2023 5:22 AM For questions after 5 PM and on weekends, please page [phone]. SUBJECTIVE: No acute events overnight. Pain well-controlled with current regimen. Breathing well on 2L NC. Not tolerating regular diet. Coughs with sips of water. Voice raspy, plan PATIENT SUPPORT ASSISTANT for swallowing OBJECTIVE: Vitals: 08/07/23 1711 08/07/23 [...] 0659 08/08/23 07 - 08/09/23 0659 Shift 1405-2177 7313-8297 6148-3466 24 Hour Total 7773-1874 1259-7001 4070-0274 24 Hour Total INTAKE PO 0 0 0 0 PO 0 0 0 0 Supplements (mL) 0 0 0 IV 882 254 8174 Volume (mL) (NaCl 0.9% iv infusion) 977 739 6217 Irrigants 100 100 200 Irrigant/Flush Amount In mL (I/O) (GI/ Feeding Naris) 100 100 200 Shift Total 0 089 271 1518 OUTPUT Urine 500 948 124 0889 Output ( External Collection Device 08/06/23 2330) 500 092 132 1208 Tubes 20 15 35 Drain/Tube Output (Drain/Tube 08/06/23 1756 Domenico Herbert Left Neck) 20 15 35 # of BMs Number of BMs 0 x 0 x 0 x Shift Total 520 331 686 1797 Weight (kg) 96.2 96.2 96.2 96.2 96.2 [...] 3.7 -- 5.0* Recent Labs 08/08/23 0547 08/07/234 08/07/23 1641 08/07/23 1101 08/07/23 0737 08/06/232 08/06/23 1857 08/06/23 1603 PCGLUCOSE 206* 147* [...] H PRN prochlorpe (more content not included)... [facility] 08-07-2023 Note HNO ID: [id number] Author: CLIFFORD CHASE RN Service: Care Management Author Type: Registered Nurse Type: Care Mgt Initial Assessment Filed: 08/07/2023 13:25 Note Text: CARE MANAGEMENT: ASSESSMENT AND DISCHARGE PLAN SERVICE DATE: August 07, 2023 SERVICE TIME: 12:57 PM PCP: Rosa Silva MD Primary Contact: Extended Emergency Contact Information Primary Emergency Contact: Susan Estrada Relation: Daughter Secondary Emergency Contact: PaoAnika Mobile Relation: Sister Admission Status: Observation Insurance Provider: [employer] KELSEY O D SNP Discharge Planning requested by: Per Department Practice Potential Transition Plans Other: See Comment (Return to facility. Possibly Skilled level of care) Advance Directives Current Advance Directive: Health Care Power of Educational Institution Curator In Chart: Yes Up To Date and Valid: Yes Current Living Arrangements and Support Lives with: Type of Residence: Extended Care Facility Care Facility Name: [facility] Support: Family members, Friends/neighbors, Children, Home care staff How do you manage to accomplish the following: Dependent: Ambulation;Bathe/Shower;Dress;Meals/M eal Prep;Going to the bathroom;Medication Management;Transportation to appointments/community Current Services/Equipment Current Post-Acute Service(s): DME Current DME Type: Continuous Positive Airway Pressure, Electric scooter, Bedside commode Discharge Planning Patient Goal(s): Other: See Comment (Return to [facility]) [place] of Choice Explained: [place] of Choice Given: Yes Level of Care Discussed: Other: See Comment (Extended Care Facility) Are you interested in bedside delivery of your medications? No not offered on H51 Discharge Planning Participant(s): Children Patient/Family Comments: Nasima Davis Caregiver Assessment: Caregiver is ready, willing and able to meet the patient's needs as recommended by the inter-professional team: Yes Name of Caregiver: Facility Transport at Discharge: Transportation Arrangements: Ambulance Needs Prior to Discharge: Needs Prior to Discharge: To Be Determined;Discharge Transportation Post-Acute Discharge Plan: CM spoke with patient's daughter Susan on the phone. Patient lives in [facility]. She has lived there appx. [...] follow POC for discharge planning. SIGNATURE: Clifford Chase RN PATIENT NAME: Roselia Bal DATE: August 07, 2023 TIME: 12:57 PM CONTACT #: [phone] [facility] 08-07-2023 Note HNO ID: [id number] Author: FREEMAN WALLACE MD Service: Otolaryngology Author Type: Resident Type: Progress Notes Filed: 08/08/2023 06:52 Note Text: [facility] OT[facility] - HEAD AND NECK SURGERY PROGRESS NOTE PAGE [phone] AFTER 1700 AND ON WEEKENDS Patient Name: [...] Dispo: TERRA Wallace, PGY-2, Otolaryngology Service Pager: [phone] Pager: [phone] August 07, 2023 5:22 AM For questions after 5 PM and on weekends, please page [phone]. SUBJECTIVE: No acute events overnight. Pain well-controlled with current regimen. Breathing well on 2L NC. Not tolerating regular diet. Coughs with sips of water. Voice raspy, plan PATIENT SUPPORT ASSISTANT for swallowing OBJECTIVE: Vitals: 08/06/23 2130 08/06/23 2200 08/06/23 2256 08/07/23 0143 BP: 121/56 119/58 115/66 (!) 115/48 Pulse: 103 102 98 99 Resp: 20 Temp: 37.2 ?C (99 ?F) 36.3 ?C (97.3 ?F) 36.5 ?C (97.7 ?F) TempSrc: Temporal Oral Oral SpO2: 95% 92% 95% 95% Ins AND Outs: Date 08/06/23699 - 08/07/23 0659 08/07/23 0700 - 08/08/23 0659 Shift 4613-3846 8372-2123 6019-4187 24 Hour Total 8366-5370 2950-5074 1228-0197 24 Hour Total INTAKE IV 2900 2900 [...] -- 1.8 P -- 5.0* Recent Labs 08/06/23 2032 08/06/23 1857 08/06/23 1603 08/06/23 1045 PCGLUCOSE 195* [...] g ORAL/FEEDING TUBE (more content not included)... [facility] 08-06-2023 Note HNO ID: [id number] Author: ALYSSA DUBON MD Service: ? Author [...] August 06, 2023 TIME: 1:23 PM CSN: [id number] [facility] 08-06-2023 Note HNO ID: [id number] Author: YOLANDA TERRELL APRN.COTTRELL BLOWER Service: ? Author Type: Nurse Drill Grinder Type: Anesthesia Procedure Notes Filed: 08/06/2023 13:06 Note Text: ANESTHESIOLOGY PROCEDURE NOTE PIV General Information Procedure Start Time/Medication Administration: 08/06/2023 1:05 PM Patient Location: OR Staffing COTTRELL BLOWER: Yolanda Terrell APRN.COTTRELL BLOWER Performed by: anesthesiologist Preparation Sterility Preparation: hand [...] August 06, 2023 TIME: 1:05 PM CSN: [id number] [facility] 06-27-2023 Note HNO ID: [id number] Author: Juan Jose Gutierrez MD Service: ? Author Type: Physician Type: Progress Notes Filed: 06/27/2023 4:53 PM Note Text: [facility] Consult This consult was requested by [...] Right side. DILATION AND CURETTAGE DXAND/THER NONOBSTETRIC Dilation AND curettage NEPHROSTOMY URETERAL DILATION 01/13/2013 [...] HR BEFORE MEAL. 30 capsule 11 Insulin [place], Disposable, (PEN NEEDLE) 29 x 1/2 ndle Use daily for insulin as directed. 100 Each 1 sitaGLIPtin (JANUVI (more content not included)... [facility] 06-27-2023 Miscellaneous Notes AMBULATORY PATIENT EDUCATION [...] In Department: OTOLARYNGOLOGY documented in this encounter [facility] 06-27-2023 Note HNO ID: [id number] Author: Cate Negrete Service: ? Author Type: ? Type: Progress Notes Filed: 06/27/2023 4:53 PM Note Text: Tobacco Use: Never Was smoking cessation packet given? N/A - Patient is a non-smoker or quit >1 year ago. Was a referral initiated?N/A Patient is a non-smoker [facility] 06-27-2023 History of Present illness Narrative [facility] HNS Consult This consult was requested by Sarah Hubbard for an opinion regarding thyroid mass. My final recommendations will be communicated to the requesting provider by way of shared EMR or letter via the [place] mail. HPI: Roselia aBl is a 73 year old female, non-smoker, [...] HR BEFORE MEAL. 30 capsule 11 Insulin [place], Disposable, (PEN NEEDLE) 29 x 1/2 ndle [...] PER DAY. DX: 250.00. INSULIN DEP: YES. AM-RetAPPs Diabetic Supplies. [employer] 0 diltiazem CD (CARTIA XT) 180 mg [...] (FLONASE) 50 mcg/actuation nasal spray Use 1 [place] in each nostril daily at bedtime. 1 [...] (3 mL) Inject subcutaneously. oxycodone HCl,terephth/aspirin (OXYCODONE [id number]-FHK ORAL) Take 10 mg by mouth every [...] qDay, # 60 cap(s), 0 Refill(s), Pharmacy: [facility] levoFLOXacin (LEVAQUIN) 750 mg tablet NOVOLOG [...] Decision Making Level: 1 - N/A MD Chuckie Ko Attestation: By signing my name below, [...] is a non-smoker documented in this encounter [facility] 06-26-2023 Note HNO ID: [id number] Author: Blossom Trejo RT(R) Service: ? Author Type: Lead Systems Developer Type: Progress Notes Filed: 06/26/2023 4:18 PM [...] DATE: June 26, 2023 TIME: 4:17 PM [facility] 06-26-2023 History of Present illness Narrative [...] TIME: 4:17 PM documented in this encounter [facility] 06-18-2023 Miscellaneous Notes I called Pt and told her she may schedule the CT neck and have her a number to call. I also asked her to not take metformin the day before the CT scan and not restarting until we document her kidney function is good. Hang Martinez M.D. Endocrinology & Metabolism [place] documented in this encounter [facility] 06-10-2023 Miscellaneous Notes Attempted to reach patient to discuss plan of care going forward from Dr. Hubbard. Will attempt to reach patient again. NISHA Easley Endocrine Surgery documented in this encounter [facility] 06-07-2023 Note HNO ID: [id number] Author: Hang Martinez MD Service: ? Author [...] seen on consultation with Drs. Vallejo and Ooms who agree. An additional report: Follicular-patterned thyroid [...] limb movement dis (more content not included)... [facility] 06-07-2023 History of Present illness Narrative [...] for fever (specify temp.). oxycodone HCl,terephth/aspirin (OXYCODONE QZW-YSMQBRJOY-EMU ORAL) Take 10 mg by mouth every [...] mg by mouth daily with breakfast.) Insulin [place], Disposable, (PEN NEEDLE) 29 x 1/2 ndle Use daily for insulin as directed. diltiazem CD (CARTIA XT) 180 mg 24 hr capsule Take 2 capsules by mouth once daily. pregabalin (LYRICA) 100 mg capsule Take 1 capsule by mouth three times daily. fluticasone (FLONASE) 50 mcg/actuation nasal spray Use 1 [place] in each nostril daily at bedtime. ALBUTEROL [...] qDay, # 60 cap(s), 0 Refill(s), Pharmacy: [facility] levoFLOXacin (LEVAQUIN) 750 mg tablet ipratropium-albuterol [...] 250.00. INSULIN DEP: YES. AM-MED Diabetic Supplies. Www[employer] pravastatin 80 mg tablet Take 1 tablet [...] which included preparing to see the patient, appr-bx-kojd patient care, completing clinical documentation, obtaining and/or reviewing separately obtained history, performing a medically appropriate examination, counseling and educating the patient/family/caregiver, and communicating with other HCPs (not separately reported). MD josefa Santana documented in this encounter [facility] 05-01-2023 Miscellaneous Notes Susan Estrada (Daughter) called in regarding their mother. Susan would like to know more information regarding her mothers' recent visit on 04/25. She also wanted to know more information on the appointment that she's scheduled for on 06/07 Good call back: [phone] documented in this encounter [facility] 04-26-2023 Miscellaneous Notes Please note, patient will hold Xarelto on 04/27/23 in anticipation of biopsy early next week. STAFF-INITIATED RADIOLOGY BIOPSY / ASPIRATION / DRAIN REQUEST FORM Date: April 26, 2023 Time: 4:05 PM PATIENT CONTACT INFORMATION: [phone] SCHEDULING: [facility] (Abdominal / Thoracic / [...] OF THE REQUEST: US Date: 04/25/23 IMAGING: [facility] (If the imaging was obtained outside the [facility] system, PLEASE upload for review prior to approval.) Note to all persons requesting biopsies: All biopsy requests will be scheduled as quickly as possible, based on the clinical urgency, availability of appointment times, the need to hold anti-thrombolytic therapy (aspirin and other blood thinners) and the patient s schedule, including the need for an available truck driver flatbed. If a percutaneous biopsy or drainage is not felt to be safe or an alternative method for establishing a diagnosis is possible, this will be discussed directly with the requesting physician. documented in this encounter [facility] 04-25-2023 Note HNO ID: [id number] Author: Sarah Hubbard MD Service: ? Author Type: Physician Type: Progress Notes Filed: 04/25/2023 1:09 PM Note Text: Sarah Hubbard M.D. Department of Endocrine Surgery Endocrinology [place] [address] ENDOCRINE SURGERY NEW PATIENT VISIT NAME: Roselia Bal CLINIC NO: [id number] : 1950 History of Present Illness: Roselia [...] of 3 separate left thyroid nodules - [place] 3 and 4. No molecular testing was [...] Right side. DILATION AND CURETTAGE DXAND/THER NONOBSTETRIC [facility] Dilation AND curettage NEPHROSTOMY URETERAL DILATION 01/13/2013 [...] CAPSULE DAILY 1/2 HR BEFORE MEAL. Insulin [place], Disposable, (PEN NEEDLE) 29 x 1/2 ndle [...] PER DAY. DX: 250.00. INSULIN DEP: YES. AM-RetAPPs Diabetic Supplies. [employer] diltiazem CD (CARTIA XT) 180 mg 24 hr capsule Take 2 capsules by mouth once daily. prega (more content not included)... [facility] 04-16-2023 Miscellaneous Notes 04/17/2023 - [facility] for Anika Cedeno Appointment 04/25 FNA - 02/25/23 Thyroid US - 03/01/23 documented in this encounter [facility] 06-20-2021 Note . MICRO - Microbiology [...] Locations *1: This test was performed at: [address], [address] [place] [address] ([place]) 06-18-2021 Note . MICRO - Microbiology PROCEDURE: [...] Locations *1: This test was performed at: [address], [address] [place] [address] ([place]) 06-16-2021 Note ORIGINAL PROCEDURE: 1. PICC placement with fluoroscopy and ultrasound guidance IMAGING MANAGER: Sheri Maldonado PA-C CLINICAL STATEMENT: Left great [...] Sign Date: 06/16/2021 4:14:24 PM Ordering Provider: [facility] 06-16-2021 Note . MICRO - Microbiology PROCEDURE: [...] Locations *1: This test was performed at: [address], [address] [place] [address] ([place]) 06-15-2021 Note . MICRO - Microbiology PROCEDURE: [...] Locations *1: This test was performed at: [address], [address] [place] [address] ([place]) documented as of this encounter (statuses as of 04/17/2023) [facility] of Past illness Narrative* Problem [...] of this encounter (statuses as of 04/27/2023) [facility] Narrative* Problem [...] of this encounter (statuses as of 05/04/2023) [facility] Narrative* Problem [...] of this encounter (statuses as of 06/10/2023) [facility] Narrative* Problem [...] of this encounter (statuses as of 06/11/2023) [facility] Narrative* Problem [...] of this encounter (statuses as of 06/19/2023) [facility] N[facility]ative* Problem [...] of this encounter (statuses as of 06/27/2023) [facility] N[facility]ative* Problem [...] of this encounter (statuses as of 06/28/2023) [facility] N[facility]ative* Problem [...] of this encounter (statuses as of 06/28/2023) [facility] N[facility]ative* Problem [...] of this encounter (statuses as of 08/30/2023) [facility] N[facility]ative* Problem [...] of this encounter (statuses as of 08/30/2023) [facility] N[facility]ative* Problem [...] of this encounter (statuses as of 09/02/2023) [facility] N[facility]ative* Problem [...] as of this encounter (statuses as of 09/04/2023) [facility] N[facility]ative* Problem [...] as of this encounter (statuses as of 09/06/2023) [facility] Diagnosis Neck mass- Primary Swelling, mass, or lump in head and neck documented in this encounter [facility] note* Diagnosis 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 and other parts of nervous system [facility] Diagnosis 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 and other parts of nervous system [facility] 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 and other parts of nervous system [facility]* Diagnosis Thyroid cancer (HCC) Malignant neoplasm of thyroid gland [facility] Diagnosis Oropharyngeal dysphagia- Primary Dysphagia, oropharyngeal phase Thyroid cancer (HCC) Malignant neoplasm of thyroid gland [facility] Diagnosis Thyroid cancer (HCC) Malignant neoplasm of thyroid gland documented in this encounter [facility] for referral (narrative)* Diagnostic Procedure Only (Routine) - Pending Review Specialty Diagnoses / Procedures Referred By Grady perez Referred To Contact MOLECULAR & FUNCTIONAL IMAGING Diagnoses Thyroid cancer (HCC) Procedures NM PET/CT SKULL-THIGH INITIAL PET IMAGING CT ATTENUATION SKULL BASE MID-THIGH Savannah Sharpe MD [address] [place] [address] Molecular & Functional Imaging [address] [place] [address] Referral ID Status Reason Start Date Expiration Date Visits Requested Visits Authorized [id number] Pending Review Auto-Generat ed Referral 08/29/2023 09/27/2024 1 1 [facility] Summary Purpose Family History No Family History Records FoundNo Family History Records Found Advance Directives No Advanced Directives Records FoundDocuments on File Type Date Recorded Patient Electric Razor Assembler Expl anation Advance Directive(s) 04/29/2023 11:52 AM Documents on File Type Date Recorded Patient Electric Razor Assembler Expl anation Advance Directive(s) 04/29/2023 11:52 AM Reason for Referral Specialty Diagnoses / Procedures Referred By Contac t Referred To Contact CT IMAGING Diagnoses Follicular neoplasm of thyroid Procedures CT NECK SOFT TISSUE W IVCON CT SOFT TISSUE NECK W/CONTRAST MATERIAL Hang Martinez MD [id number] [facility] [place] [address] Referral ID Status Reason Start Date Expiration Date Visits Requested Visits Authorized [id number] Pending Review Auto-Generat ed Referral 3 07/17/2024 1 1 Referral ID Status Reason Start Date Expiration Date V isits Requested Visits Authorized [id number] Closed Auto-Generate d Referral 06/18/2023 07/17/2024 1 1 Specialty Diagnoses / Procedures Referred By Contac t Referred To Contact Diagnoses Thyroid cancer (HCC) Procedures REFER TO PACC - PRE ANESTHESIA CONSULTATION CLINIC OFFICE/OUTPATIENT NEW HIGH MDM 60-74 MINUTES Juan Jose Gutierrez MD [address] [place] [address] Referral ID Status Reason Start Date Expiration Date Visits Requested Visits Authorized [id number] Pending Review PCP Requested Referral 3 06/26/2024 1 1 Specialty Diagnoses / Procedures Referred By Contac t Referred To Contact [facility] Diagnoses Thyroid cancer (HCC) Procedures ECG COMPLETE ECG ROUTINE ECG W/LEAST 12 LDS W/I&R Juan Jose Gutierrez MD [address] [address] [facility] [place] [facility] [place] [address] Referral ID Status Reason Start Date Expiration Date Visits Requested Visits Authorized [id number] Pending Review Auto-Generat ed Referral 3 06/26/2024 1 1 Additional Source Comments INFORMATION SOURCE (unrecogn ized section and content) DATE CREATED AUTHOR AUTHOR'S KEESHA ATION 09/06/2023 [facility] Source Comments (unrecognize d section and content) In the event this informatio n is protected by the Federal Confidentiality of Alcohol and Drug Abuse Patient Records regulations: The Federal rules restrict any use of the information to criminally investigate or prosecute any alcohol or drug abuse patient.[facility]In the event this information is protected by the Federal Confidentiality of Alcohol and Drug Abuse Patient Records regulations: The Federal rules restrict any use of the information to criminally investigate or prosecute any alcohol or drug abuse patient.[facility] HospitalIn the event this information is protected by the Federal Confidentiality of Alcohol and Drug Abuse Patient Records regulations: The Federal rules restrict any use of the information to criminally investigate or prosecute any alcohol or drug abuse patient.[facility] HospitalIn the event this information is protected by the Federal Confidentiality of Alcohol and Drug Abuse Patient Records regulations: The Federal rules restrict any use of the information to criminally investigate or prosecute any alcohol or drug abuse patient.[facility] HospitalIn the event this information is protected by the Federal Confidentiality of Alcohol and Drug Abuse Patient Records regulations: The Federal rules restrict any use of the information to criminally investigate or prosecute any alcohol or drug abuse patient.[facility] HospitalIn the event this information is protected by the Federal Confidentiality of Alcohol and Drug Abuse Patient Records regulations: The Federal rules restrict any use of the information to criminally investigate or prosecute any alcohol or drug abuse patient.[facility] HospitalIn the event this information is protected by the Federal Confidentiality of Alcohol and Drug Abuse Patient Records regulations: The Federal rules restrict any use of the information to criminally investigate or prosecute any alcohol or drug abuse patient.[facility] HospitalIn the event this information is protected by the Federal Confidentiality of Alcohol and Drug Abuse Patient Records regulations: The Federal rules restrict any use of the information to criminally investigate or prosecute any alcohol or drug abuse patient.[facility] HospitalIn the event this information is protected by the Federal Confidentiality of Alcohol and Drug Abuse Patient Records regulations: The Federal rules restrict any use of the information to criminally investigate or prosecute any alcohol or drug abuse patient.[facility] HospitalIn the event this information is protected by the Federal Confidentiality of Alcohol and Drug Abuse Patient Records regulations: The Federal rules restrict any use of the information to criminally investigate or prosecute any alcohol or drug abuse patient.[facility] HospitalIn the event this information is protected by the Federal Confidentiality of Alcohol and Drug Abuse Patient Records regulations: The Federal rules restrict any use of the information to criminally investigate or prosecute any alcohol or drug abuse patient.[facility] HospitalIn the event this information is protected by the Federal Confidentiality of Alcohol and Drug Abuse Patient Records regulations: The Federal rules restrict any use of the information to criminally investigate or prosecute any alcohol or drug abuse patient.[facility] HospitalIn the event this information is protected by the Federal Confidentiality of Alcohol and Drug Abuse Patient Records regulations: The Federal rules restrict any use of the information to criminally investigate or prosecute any alcohol or drug abuse patient.[facility] HospitalIn the event this information is protected by the Federal Confidentiality of Alcohol and Drug Abuse Patient Records regulations: The Federal rules restrict any use of the information to criminally investigate or prosecute any alcohol or drug abuse patient.[facility] Reason for Visit (unrecogniz ed section and content) Reason Comments Biopsy Request Reason Comments Patient Question Reason Comments Consult Specialty Diagnoses / Procedures Referred By Grady t Referred To Contact Endocrinology / ENDOCRINOLOGY Diagnoses Thyroid Cancer Procedures NEW SHANA Petros Spicer MD [address] [address] Hang Martinez MD [address] [address] Referral ID Status Reason Start Date Expiration Date V isits Requested Visits Authorized [id number] Outside PCP 06/07/2023 08/06/2023 1 1 Reason Comments Patient Update Reason Comments Radiology CT Specialty Diagnoses / Procedures Referred By Grady t Referred To Contact CT IMAGING Diagnoses Follicular neoplasm of thyroid Procedures CT NECK SOFT TISSUE W IVCON CT SOFT TISSUE NECK W/CONTRAST MATERIAL Hang Martinez MD [address] [facility] [address] [place] [address] [place] [id number] Referral ID Status Reason Start Date Expiration Date V isits Requested Visits Authorized [id number] Closed Auto-Generate d Referral 06/18/2023 07/17/2024 1 [...] HIGH MDM 40-54 MIN Rosa Silva MD [address] [place] [address] Juan Jose Gutierrez MD [address] [place] [address] Referral ID Status Reason Start Date Expiration Date Visits Requested Visits Authorized [id number] Authorized PCP Requested Referral 06/11/2024 99 99 Reason Comments Dysphagia Reason Comments New Patient Specialty Diagnoses / Procedures Referred By Grady t Referred To Contact Radiation Oncology / [facility] Diagnoses Thyroid cancer (HCC) Procedures RAD/ONC CONSULT OFFICE/OUTPATIENT NEW HIGH MDM 60 MINUTES Juan Jose Gutierrez MD [address] [address] [facility] [address] [place] [address] Referral ID Status Reason Start Date Expiration Date V isits Requested Visits Authorized [id number] Closed PCP Requested Referral 08/20/2023 08/19/2024 1 1 Reason Comments Nm Pet Request Reason Comments Appointment Care Teams (unrecognized sec tion and content) Program Control Analyst Relationship Specialty Start Date End Date Rosa Silva MD [address] [place] [address] PCP - General Gerontology 05/02/23 Program Control Analyst Relationship Specialty Start Date End Date Rosa Silva MD [address] [place] [id number] PCP - General Gerontology 05/02/23 Program Control Analyst Relationship Specialty Start Date End Date Rosa Silva MD [address] [place] [id number] PCP - General Gerontology 05/02/23 Program Control Analyst Relationship Specialty Start Date End Date Rosa Silva MD [address] [place] [id number] PCP - General Gerontology 05/02/23 Program Control Analyst Relationship Specialty Start Date End Date Rosa Silva MD [address] [place] [id number] PCP - General Gerontology 05/02/23 Program Control Analyst Relationship Specialty Start Date End Date Rosa Silva MD [address] [id number] PCP - General Gerontology 05/02/23 Program Control Analyst Relationship Specialty Start Date End Date Rosa Silva MD [address] [place] [address] PCP - General Gerontology 05/02/23 Program Control Analyst Relationship Specialty Start Date End Date Rosa Silva MD [address] [place] [address] PCP - General Gerontology 05/02/23 Program Control Analyst Relationship Specialty Start Date End Date Rosa Silva MD [address] [place] [address] PCP - General Gerontology 05/02/23 Mel Cramer MD [address] [place] [address] Physician Radiation Oncology 09/05/23 FOR RECORDS PERTAINING TO PATIENTS WHO ARE [...] BE BASED ON THE PRIMARY CLINICAL RECORDS. [facility]. provides no warranty or guarantee of the accuracy or completeness of information in this document.
[2023-09-10 09:10] LABS: Hematocrit 33.5 % (37-47); Hemoglobin 10.5 g/dL (12.0-15.0); Mean Corp Hgb Conc 31.3 g/dL (32-36); Mean Corpuscular Hgb 27.1 pg (27.0-32.0); Mean Corpuscular Volume 86.6 fL (81-99); Mean Platelet Vol. 10.9 fl (6.2-12.0); Platelet Count 143 K/mm3 (150-450); RBC Distribution Width CV 15.2 % (11.6-14.6); RBC Distribution Width SD 47.7 fl (35.1-43.9); Red Blood Count 3.87 M/mm3 (4.2-5.4); White Blood Count 6.5 K/mm3 (4.4-11.0)
[2023-09-10 09:25] LABS: Anion Gap 5 (5-15); BUN 29 mg/dL (7-18); BUN/Creat Ratio 45.5 RATIO (10-20); Calcium,Total 9.4 mg/dL (8.5-10.1); Chloride 110 mmol/L (98-107); Creatinine, Serum 0.64 mg/dL (0.55-1.02); EST Glomerular Filtration Rate 97 mL/min (>60); Est Glom Filt Rate - Afr Amer 117 mL/min (>60); Glucose 87 mg/dL (74-106); Magnesium 2.2 mg/dL (1.6-2.6); Potassium 3.9 mmol/L (3.5-5.1); Sodium Level 143 mmol/L (136-145)
== END ==
LOC: OLS.SW 05:00
PROVIDERS: PCP Internal Medicine; Visit Provider Internal Medicine
DX: D64.9 Anemia, unspecified (principal); J44.9 Chronic obstructive pulmonary disease, unspecified; C73 Malignant neoplasm of thyroid gland; E11.40 Type 2 diabetes mellitus with diabetic neuropathy, unspecified; I48.0 Paroxysmal atrial fibrillation
CPT/HCPCS: 36415; 80048; 83735; 85027

== ENCOUNTER → 2023-09-17 | Outpatient (REF) | payer MEDICARE, MEDICAID, SELFPAY ==
[2023-09-17 09:45] LABS: Hemoglobin 10.4 g/dL (12.0-15.0); Mean Corp Hgb Conc 31.5 g/dL (32-36); Mean Corpuscular Hgb 27.4 pg (27.0-32.0); Mean Corpuscular Volume 87.1 fL (81-99); Mean Platelet Vol. 11.7 fl (6.2-12.0); Platelet Count 131 K/mm3 (150-450); RBC Distribution Width CV 15.3 % (11.6-14.6); RBC Distribution Width SD 48.8 fl (35.1-43.9); Red Blood Count 3.79 M/mm3 (4.2-5.4); White Blood Count 4.8 K/mm3 (4.4-11.0)
[2023-09-17 09:59] LABS: T3 Total - Triiodothyronine 2.37 ng/mL (0.6-1.81)
[2023-09-17 11:14] LABS: Anion Gap 4 (5-15); BUN 22 mg/dL (7-18); BUN/Creat Ratio 35.2 RATIO (10-20); Calcium,Total 9.4 mg/dL (8.5-10.1); Chloride 109 mmol/L (98-107); Creatinine, Serum 0.62 mg/dL (0.55-1.02); EST Glomerular Filtration Rate 99 mL/min (>60); Est Glom Filt Rate - Afr Amer 119 mL/min (>60); Glucose 106 mg/dL (74-106); Magnesium 1.9 mg/dL (1.6-2.6); Potassium 3.9 mmol/L (3.5-5.1); Sodium Level 141 mmol/L (136-145); T4 Free Direct 1.78 ng/dL (0.76-1.46); Thyroid Stim Hormone (TSH) < 0.01 uIU/mL (0.358-3.74)
== END ==
LOC: OLS.SW 05:00
PROVIDERS: PCP Internal Medicine; Visit Provider Internal Medicine
DX: I48.91 Unspecified atrial fibrillation (principal); D64.9 Anemia, unspecified; N18.9 Chronic kidney disease, unspecified
CPT/HCPCS: 36415; 80048; 83735; 84439; 84443; 84480; 85027

== ENCOUNTER → 2023-09-24 | Outpatient (REF) | payer MEDICARE, MEDICAID, SELFPAY ==
[2023-09-24 08:30] LABS: Hematocrit 34.6 % (37-47); Hemoglobin 11.1 g/dL (12.0-15.0); Mean Corp Hgb Conc 32.1 g/dL (32-36); Mean Corpuscular Hgb 27.6 pg (27.0-32.0); Mean Corpuscular Volume 86.1 fL (81-99); Mean Platelet Vol. 11.6 fl (6.2-12.0); Platelet Count 108 K/mm3 (150-450); RBC Distribution Width CV 14.7 % (11.6-14.6); RBC Distribution Width SD 46.5 fl (35.1-43.9); Red Blood Count 4.02 M/mm3 (4.2-5.4); White Blood Count 4.2 K/mm3 (4.4-11.0)
[2023-09-24 11:01] LABS: Anion Gap 3 (5-15); BUN 32 mg/dL (7-18); BUN/Creat Ratio 47.3 RATIO (10-20); Calcium,Total 9.3 mg/dL (8.5-10.1); Chloride 108 mmol/L (98-107); Creatinine, Serum 0.68 mg/dL (0.55-1.02); EST Glomerular Filtration Rate 90 mL/min (>60); Est Glom Filt Rate - Afr Amer 109 mL/min (>60); Glucose 90 mg/dL (74-106); Magnesium 2.1 mg/dL (1.6-2.6); Potassium 3.9 mmol/L (3.5-5.1); Sodium Level 140 mmol/L (136-145)
== END ==
LOC: OLS.SW 05:00
PROVIDERS: PCP Internal Medicine; Visit Provider Internal Medicine
DX: D64.9 Anemia, unspecified (principal); I48.0 Paroxysmal atrial fibrillation; N18.32 Chronic kidney disease, stage 3b
CPT/HCPCS: 36415; 80048; 83735; 85027

== ENCOUNTER → 2023-09-26 | Outpatient (REF) | payer MEDICARE, MEDICAID, SELFPAY ==
[2023-09-26 09:39] LABS: Anion Gap 7 (5-15); BUN 31 mg/dL (7-18); BUN/Creat Ratio 43.8 RATIO (10-20); Calcium,Total 9.5 mg/dL (8.5-10.1); Chloride 106 mmol/L (98-107); Creatinine, Serum 0.71 mg/dL (0.55-1.02); EST Glomerular Filtration Rate 86 mL/min (>60); Est Glom Filt Rate - Afr Amer 104 mL/min (>60); Glucose 122 mg/dL (74-106); Potassium 3.8 mmol/L (3.5-5.1); Sodium Level 138 mmol/L (136-145)
== END | disposition home or self-care (01) ==
LOC: OLS.SW 05:24
PROVIDERS: PCP Internal Medicine; Visit Provider Internal Medicine
DX: N18.32 Chronic kidney disease, stage 3b (principal)
CPT/HCPCS: 36415; 80048

== ENCOUNTER → 2023-10-01 | Outpatient (REF) | payer MEDICARE, MEDICAID, SELFPAY ==
--- OUTSIDE RECORDS SUMMARY | 2023-10-01 04:29 | XMS RPT_ITS | CCD ---
Author Name Unknown Address [address] [place] [address] Organization [facility] Care Team Providers Care Speed Operator Name Role Phone Unavailable Primary Care Provider Unavailrashad Silva MD, Rosa Vicente Primary Care Provider [phone] Shira SNYDER, Rosa Vicente Primary Care Provider Shoaib SNYDER, Mel Unavailable HANG MARTINEZ Referring Unavai lable GUDLA, ROSA D Primary Care Unavailable GUDLA, ROSA D Primary Care Unavailable SAVANNAH SHARPE Referring Unavailable DEL HANG RENO Referring Unavai lable GUDLA, ROSA D Primary Care Unavailable SARAH HUBBARD Referring Unavailable JUAN JOSE GUTIERREZ Attending Unavailable GUDLA, ROSA D Primary Care Unavailable GUDLA, ROSA D Primary Care Unavailable CELIA TAVERAS Attending Unavailable CELIA TAVERAS Admitting Unavailable GUDLA, ROSA D Primary Care Unavailable HANG MARTINEZ Attending HANG Irwin Referring Unavai lable GUDLA, ROSA D Primary Care Unavailable DEL HANG RENO Referring Unavai lable CHARLES HUBBARDHERINE Attending Unavailable BATSHEVA AZAR Referring Unavailable GUDLA, ROSA D Primary Care Unavailable JUAN JOSE GUTIERREZ Attending Unavailable JUAN JOSE GUTIERREZ Referring Unavailable GUDLA, ROSA D Primary Care Unavailable JUAN JOSE GUTIERREZ Referring Unavailable GUDLA, ROSA D Primary Care Unavailable JUAN JOSE GUTIERREZ Admitting Unavailable JUAN JOSE GUTIERREZ Attending Unavailable HEMALATHADLA, ROSA D Primary Care Unavailable JUAN JOSE GUTIERREZ Referring Unavailable GUDLA, ROSA D Primary Care Unavailable JUAN JOSE GUTIERREZ Referring Unavailable WOODY, SAVANNAH Attending Unavailable GUDLA, ROSA D Primary Care Unavailable JUAN JOSE GUTIERREZ Referring Unavailable CEM DUPREE Attending Unavailable GUDLA, ROSA D Primary Care Unavailable DEL HANG RENO Referring Unavai lable GUDLA, ROSA D Primary Care Unavailable HANG MARTINEZ Referring Unavai lable HEMALATHADLA, ROSA D Primary Care Unavailable HANG MARTINEZ Referring UnavaSARAH Saenz Referring Unavailable GUDLA, ROSA D Primary Care Unavailable HANG MARTINEZ Attending PETROS Cuellar Referring Unavailable GUDLA, ROSA D Primary Care Unavailable SAVANNAH SHARPE Referring Unavailable Allergies Allergy Classification Reported Allergen(s) Allergy Type Date of Onset Reaction(s) Facility (20 sources) Latex; Translations: [LATEX, NATURAL RUBBER] Drug Allergy 4 Itching [facility] Work Phone: (20 sources) Penicillins; Translations: [PENICILLINS] Propensity to adverse reactions 7 Anaphylaxis [facility] Work Phone: (20 sources) Salicylate product; Translations: [SALICYLATES] Propensity to adverse reactions 7 Hives [facility] Work Phone: (20 sources) Sulfonamides (Antibiotic); Translations: [SULFA (SULFONAMIDE ANTIBIOTICS)] Propensity to adverse reactions 7 Anaphylaxis [facility] Work Phone: (20 sources) Aspirin; Translations: [ASPIRIN] Drug Allergy 1 Unknown [facility] Medications Completed/Discontinued Medications Medication Drug Class(es) Dates Sig (Normalized) Sig (Original) acetaminophen 325 mg oral tablet (20 sources) take 2 tablets by mouth every four hours as needed acetaminophen (TYLENOL) 325 mg tablet Take 650 mg by mouth every 4 hours as needed for fever (specify temp.). 0 Active Problems Active Problems Problem Classification Problem Date Documented Da te Episodic/Chronic Anxiety disorders (16 sources) Mixed anxiety and depressive disorder; Translations: [Anxiety disorder, unspecified] Onset: 12-26-2006 08-07-2023 Chronic Asthma (20 sources) Unspecified asthma, uncomplicated; Translations: [Asthma, unspecified type, unspecified] Onset: 12-26-2006 12-26-2006 Chronic Cancer of thyroid (20 sources) Malignant tumor of thyroid gland; Translations: [Malignant neoplasm of thyroid gland] Onset: 08-06-2023 06-27-2023 Chronic Cardiac dysrhythmias (16 sources) Atrial fibrillation; Translations: [Unspecified atrial fibrillation] Onset: 08-02-2023 08-07-2023 Chronic Deficiency and other anemia (15 sources) Iron deficiency anemia; Translations: [Iron deficiency anemia, unspecified] Onset: 08-02-2023 08-07-2023 Episodic Deficiency and other anemia (1 source) Iron deficiency anemia, unspecified; Translations: [Iron deficiency anemia, unspecified iron deficiency anemia type] Onset: 08-02-2023 Episodic Diabetes mellitus with complications (20 sources) Type 2 diabetes mellitus; Translations: [Type II or unspecified type diabetes mellitus without mention of complication, uncontrolled] Onset: 12-26-2006 02-02-2014 Chronic Disorders of lipid metabolism (20 sources) Hyperlipidemia; Translations: [Hyperlipidemia, unspecified] Onset: 07-01-2007 07-01-2007 Chronic Essential hypertension (20 sources) Benign essential hypertension; Translations: [Essential (primary) hypertension] Onset: 11-01-2006 11-01-2006 Chronic Genitourinary symptoms and ill-defined conditions (20 sources) Urge incontinence of urine; Translations: [Urge incontinence] Onset: 07-05-2011 07-05-2011 Chronic Mood disorders (9 sources) Depressive disorder; Translations: [Other specified depressive episodes] Onset: 12-26-2006 12-26-2006 Chronic Mood disorders (1 source) Mood disorders; Translations: [Anxiety and depression] Onset: 08-02-2023 Noninfectious gastroenteritis (16 sources) Collagenous colitis; Translations: [Collagenous colitis] Onset: 08-02-2023 08-07-2023 Chronic Nutritional deficiencies (20 sources) Vitamin D deficiency; Translations: [Vitamin D deficiency, unspecified] Onset: 07-02-2007 07-02-2007 Chronic Osteoarthritis (20 sources) Degenerative joint disease involving multiple joints; Translations: [Polyosteoarthritis , unspecified] Onset: 12-26-2006 12-26-2006 Chronic Osteoporosis (20 sources) Osteoporosis; Translations: [Age-related osteoporosis without current pathological fracture] Onset: 02-12-2013 02-12-2013 Chronic Other aftercare (15 sources) Insulin dose changed; Translations: [salvage determiner (current) use of insulin] Onset: 08-09-2023 08-09-2023 Episodic Other aftercare (1 source) salvage determiner (current) use of insulin; Translations: [Type 2 diabetes mellitus with diabetic polyneuropathy, with long-term current use of insulin (HCC)] Onset: 08-02-2023 Episodic Other connective tissue disease (15 sources) Fibromyalgia; Translations: [Fibromyalgia] Onset: 08-02-2023 08-07-2023 Episodic Other connective tissue disease (1 source) Fibromyalgia; Translations: [Fibromyalgia] Onset: 08-02-2023 Episodic Other gastrointestinal disorders (16 sources) Oropharyngeal dysphagia; Translations: [Dysphagia, oropharyngeal phase] Onset: 08-07-2023 08-29-2023 Episodic Other nervous system disorders (20 sources) Critical illness polyneuropathy; Translations: [Critical illness polyneuropathy] Onset: 10-27-2006 07-24-2021 Chronic Other nutritional; endocrine; and metabolic disorders (20 sources) Morbid obesity; Translations: [Morbid (severe) obesity due to excess calories] Onset: 08-23-2011 08-23-2011 Chronic Other nutritional; endocrine; and metabolic disorders (20 sources) Body mass index 40+ - severely obese; Translations: [Morbid (severe) obesity due to excess calories] Onset: 04-25-2023 04-25-2023 Chronic Other nutritional; endocrine; and metabolic disorders (2 sources) Morbid (severe) obesity due to excess calories; Translations: [Morbid obesity (HCC)] Onset: 08-23-2011 Chronic Other screening for suspected conditions (not mental disorders or infectious disease) (1 source) Imaging result abnormal; Translations: [Abnormal findings on diagnostic imaging of other specified body structures] 09-16-2023 Chronic Other screening for suspected conditions (not mental disorders or infectious disease) (2 sources) Decreased thyroid stimulating hormone level; Translations: [Other specified abnormal findings of blood chemistry] Onset: 09-18-2023 09-17-2023 Episodic Other skin disorders (1 source) Mass of neck; Translations: [Localized swelling, mass and lump, neck] 04-26-2023 Episodic Other upper respiratory disease (20 sources) Chronic rhinitis; Translations: [Chronic rhinitis] Onset: 12-26-2006 12-26-2006 Chronic Phlebitis; thrombophlebitis and thromboembolism (16 sources) H/O: Deep vein thrombosis; Translations: [Personal history of other venous thrombosis and embolism] Onset: 08-02-2023 08-07-2023 Episodic Residual codes; unclassified (20 sources) Obstructive sleep apnea syndrome; Translations: [Obstructive sleep apnea (adult) (pediatric)] Onset: 11-01-2006 07-24-2021 Chronic Residual codes; unclassified (20 sources) Periodic limb movement disorder; Translations: [Periodic [...] Documented Date Episodic/Chronic Calculus of urinary tract (20 sources) Kidney stone; Translations: [Calculus of kidney] Onset: 08-23-2011 08-23-2011 Episodic Headache; including migraine (20 sources) Headache; Translations: [Headache] Onset: 12-26-2006 12-26-2006 Episodic Neoplasms of unspecified nature or uncertain behavior (4 sources) Follicular neoplasm of thyroid; Translations: [Neoplasm of unspecified behavior of endocrine glands and other parts of nervous system] Onset: 06-26-2023 06-10-2023 Episodic Other diseases of veins and lymphatics (20 sources) Vascular insufficiency; Translations: [Venous insufficiency (chronic) (peripheral)] Onset: 07-05-2011 07-05-2011 Episodic Other diseases of veins and lymphatics (1 source) Venous insufficiency (chronic) (peripheral); Translations: [Venous insufficiency] Onset: 07-05-2011 Episodic Other skin disorders (1 source) Localized swelling, mass and lump, neck; Translations: [Neck mass] Onset: 05-24-2023 Episodic Spondylosis; intervertebral disc disorders; other back problems (20 sources) Low back pain; Translations: [Lumbago] Onset: 12-26-2006 07-24-2021 Episodic Results Test Name Value Interpretation Reference Range Facil ity Vital Signs Date Time Vital Sign Value Performing Clinician Chase bustamante 09-13-2023 14:30-0500 Body height 162.6 cm Hang Martinez MD Work Phone: [facility] 09-13-2023 14:30-0500 Body weight 97.98 kg Hang Martinez MD Work Phone: [facility] 09-13-2023 14:30-0500 Diastolic blood pressure 46 mm[Hg] Hang Martinez MD Work Phone: [facility] 09-13-2023 14:30-0500 Heart rate 84 /min Hang Martinez MD Work Phone: [facility] 09-13-2023 14:30-0500 Systolic blood pressure 120 mm[Hg] Hang Martinez MD Work Phone: [facility] 08-29-2023 12:54-0500 Body temperature 97 [degF] Savannah Sharpe MD Work Phone: [facility] 08-29-2023 12:54-0500 Diastolic blood pressure 58 mm[Hg] Savannah Sharpe MD Work Phone: [facility] 08-29-2023 12:54-0500 Heart rate 94 /min Savannah Sharpe MD Work Phone: [facility] 08-29-2023 12:54-0500 Respiratory rate 18 /min Savannah Sharpe MD Work Phone: [facility] 08-29-2023 12:54-0500 SaO2% (BldA) [Mass fraction] 96 % Savannah Sharpe MD Work Phone: [facility] 08-29-2023 12:54-0500 Systolic blood pressure 136 mm[Hg] Savannah Sharpe MD Work Phone: [facility] 06-07-2023 08:24-0500 Body height 157.5 cm Hang Martinez MD Work Phone: [facility] 06-07-2023 08:24-0500 Body weight 97.07 kg Hang Martinez MD Work Phone: [facility] 06-07-2023 08:24-0500 Diastolic blood pressure 53 mm[Hg] Hang Martinez MD Work Phone: [facility] 06-07-2023 08:24-0500 Heart rate 92 /min Hang Martinez MD Work Phone: [facility] 06-07-2023 08:24-0500 Systolic blood pressure 125 mm[Hg] Hang Martinez MD Work Phone: [facility] Encounters Encounter Date Encounter Type Care Provider Facility Start: 09-26-2023 End: 09-26-2023 ambulatory [facility] Start: 09-26-2023 End: 09-26-2023 [facility] Start: 09-26-2023 End: 09-26-2023 [facility] Start: 09-26-2023 End: 09-26-2023 Subsequent hospital visit by physician [facility] Procedures Date Procedure Procedure Detail Performing Clinician Start: 09-26-[address] atten uation skull base mid-thigh Savannah Sharpe MD Work Phone: Start: 09-26-2023 Gluc bld gluc mntr d ev cleared fda spec home use [facility] Provider Start: 09-26-2023 Thyroid carcinoma metastases uptake Hang Martinez MD Work Phone: Start: 06-26-2023 Ct soft tissue neck w/contrast material Hang Martinez MD Work Phone: Start: 06-28-2005 Colonoscopy Sarah Hubbard MD Work Phone: Plan of Treatment Date Care Activity Detail Author Start: 09-13-2024 BP Controlled (<130/80) BP Controlled (<130/80) [facility] Start: 06-07-2024 BP Controlled (<130/80) BP Controlled (<130/80) [facility] Start: 09-17-2023 End: 12-17-2023 THYROID STIMULATING IMMUNOGLOBULIN BLOOD THYROID STIMULATING IMMUNOGLOBULIN BLOOD Lab Routine Thyroid cancer (HCC) Low TSH level Expected: 09/17/2023, Expires: 12/17/2023 [facility] Work Phone: Immunizations Immunization Date Immunization Notes Care Provider Fa cili 06-21-2021 influenza virus vacc ine, unspecified formulation Sarah Hubbard MD Work Phone: [facility] 05-09-2018 influenza virus vacc ine, unspecified formulation Sarah Hubbard MD Work Phone: [facility] 05-13-2014 influenza, seasonal, injectable Sarah Hubbard MD Work Phone: [facility] 05-15-2013 influenza virus vacc ine, unspecified formulation Sarah Hubbard MD Work Phone: [facility] Work Phone: 11-08-2012 pneumococcal polysaccharide vaccine, 23 valent Sarah Hubbard MD Work Phone: [facility] 05-12-2012 influenza virus vacc ine, unspecified formulation Sarah Hubbard MD Work Phone: [facility] Work Phone: 05-16-2011 influenza virus vacc ine, unspecified formulation Sarah Hubabrd MD Work Phone: [facility] Work Phone: 11-04-2008 tetanus and diphther ia toxoids, adsorbed, preservative free, for adult use (2 Lf of tetanus toxoid and 2 Lf of diphtheria toxoid) Sarah Hubbard MD Work Phone: [facility] Work Phone: 09-02-2008 influenza virus vacc ine, unspecified formulation Sarah Hubbard MD Work Phone: [facility] Work Phone: 06-26-2007 influenza virus vacc ine, unspecified formulation Sarah Hubbard MD Work Phone: [facility] Work Phone: 07-29-1994 pneumococcal polysaccharide vaccine, 23 valent Sarah Hubbard MD Work Phone: [facility] Work Phone: Payers Date Payer Category Payer Medicare [id number] 2021 Medicare [id number] 2021 Medicare [id number] 2019 Medicaid [facility] MEDIC AID [employer] [facility] MEDICAID [id number] 2019-Present [phone] [address] [place] [address] Medicaid [id number] 2019 Medicaid [id number] Social History Date Type Detail Facility Start: 07-05-2011 [facility] Work Phone: Start: 07-05-2011 Tobacco use and exposure Smokeless tobacco non-user [facility] Work Phone: Start: 03-14-2022 End: 09-13-2023 Alcohol intake Current non-drinker of alcohol (finding) [facility] Start: 03-22-2016 End: 04-25-2023 History of Social function [facility] Start: 03-22-2016 End: 04-25-2023 Tobacco use panel [facility] National Score (1-100), lower number is lower risk Not on file [facility] Start: 12-26-2006 Alcohol Comment rare [facility] Start: 1950 Sex Assigned At Not on file [facility] Start: 1950 Sex Assigned At Female C [facility] Start: 06-19-2023 Gender identity Identifies as female gender (finding) [facility] Medical Equipment Procedure Code Equipment Code Equipment Origin al Text Equipment Identifier Dates Stent Uret 7fr 2 4cm W/O Gw Inl - [id number] Start: 01-13-2013 TEST BLOOD SUGAR 4 TIMES PER DAY. DX: 250.00. INSULIN DEP: YES. AM-[employer] Start: 01-07-2014 Clinical Notes 08-23-2011 to 09-26-2023 Jackson Costello RT(R) - 09/26/2023 1:15 PM Hernandez Pena RT(R) - 09/25/2023 1:30 PM ESTTelephone Encounter - Hang Martinez MD - 09/19/2023 9:27 AM EST Note Date & Type Note Facility 09-26-2023 Note [facility] 09-26-2023 History of Present illness Narrative RADIOLOGY SERVICE PROGRESS NOTE SERVICE DATE: 09/26/2023 SERVICE TIME: 10:25 AM PATIENT IDENTITY VERIFICATION COMPLETED USING TWO (2) STANDARD IDENTIFIERS: Name and Date of confirmed by patient verbally FALL SCREENING: Has the patient had 2 falls in the last year or 1 fall with injury or currently using an Ambulatory Assistive Device (Walker, Cane, Wheelchair, Crutches, etc.)? No PATIENT GENDER DATA: .female : No ALLERGIES: Reviewed and unchanged MEDICATIONS REVIEWED: No PATIENT RELEVANT IMPLANT DATA REVIEWED: Not Applicable PATIENT PRESENTS WITH AN IMPLANTABLE OR ATTACHED TERRA COTTA MOLD MAKER: No CREATININE: Creatinine Date Value Ref Range Status 08/11/2023 0.60 0.58 - 0.96 mg/dL Final 08/10/2023 0.46 (L) 0.58 - 0.96 mg/dL Final 08/09/2023 0.42 (L) 0.58 - 0.96 mg/dL Final Estimated Glomerular Filtration Rate Date Value Ref Range Status 08/11/2023 94 >=60 mL/min/1.73m Final Comment: Estimated Glomerular Filtration [...] Status 08/03/2021 >60 >59 Final P.O.C.T. RESULTS: N/A September 26, [address] PERFORMED: No IV SITE: Ambulatory: A peripheral IV was started in the Right hand with a Angio cath: 22 gauge. POST EXAM PIV STATUS: Discontinued PROCEDURE TYPE: NM INJECT: PET/CT HEAD, NECK, BODY SCAN. 12.1 mCi F18 FDG. No other medications given.. ADMINISTRATION TIME: 1033 PATIENT DISCHARGED TO: Ambulatory patient, left [place] department area. A Diagnostic radioactive procedure has taken place, with no further precautions necessary other than routine body substance precautions. More information regarding radiation safety can be found using this link: [email or web address] [email or web address] SIGNATURE: RT Judy(Caity) PATIENT NAME: Roselia Bal DATE: September 26, 2023 TIME: 10:25 AM PAGER/CONTACT #: documented in this encounter [facility] 09-25-2023 Note [facility] 09-25-2023 History of Present illness Narrative RADIOLOGY SERVICE PROGRESS NOTE SERVICE DATE: 09/25/2023 SERVICE TIME: 2:26 PM PATIENT IDENTITY VERIFICATION COMPLETED USING TWO (2) STANDARD IDENTIFIERS: Name and Date of confirmed by patient verbally FALL SCREENING: Has the patient had 2 falls in the last year or 1 fall with injury or currently using an Ambulatory Assistive Device (Walker, Cane, Wheelchair, Crutches, etc.)? No PATIENT GENDER DATA: .female : No ALLERGIES: Reviewed and unchanged MEDICATIONS REVIEWED: Not applicable PATIENT RELEVANT IMPLANT DATA REVIEWED: Not Applicable PATIENT PRESENTS WITH AN IMPLANTABLE OR ATTACHED TERRA COTTA MOLD MAKER: No CREATININE: Creatinine Date Value Ref Range Status 08/11/2023 0.60 0.58 - 0.96 mg/dL Final 08/10/2023 0.46 (L) 0.58 - 0.96 mg/dL Final 08/09/2023 0.42 (L) 0.58 - 0.96 mg/dL Final Estimated Glomerular Filtration Rate Date Value Ref Range Status 08/11/2023 94 >=60 mL/min/1.73m Final Comment: Estimated Glomerular Filtration [...] Status 08/03/2021 >60 >59 Final P.O.C.T. RESULTS: N/A September 25, [address] PERFORMED: No IV SITE: OK only - not applicable, oral or physician administered agents given to patient POST EXAM PIV STATUS: Not applicable PROCEDURE TYPE: NM INJECT: whole body thyroid scan. 1.8 mCi Nal-123 Capsules. No other medications given.. ADMINISTRATION TIME: 1400 PATIENT DISCHARGED TO: Ambulatory patient, left [place] department area. A Diagnostic radioactive procedure has taken place, with no further precautions necessary other than routine body substance precautions. More information regarding radiation safety can be found using this link: [email or web address] [email or web address] SIGNATURE: RT Leola(Caity) PATIENT NAME: Roselia Bal DATE: September 25, 2023 TIME: 2:26 PM PAGER/CONTACT #: documented in this encounter [facility] 09-19-2023 Miscellaneous Notes An additional layer of complexity in this case is that despite left hemithyroidectomy, and not being on thyroid hormones, Pt's TSH is suppressed. Her FT4 and T3 resulted yesterday are elevated. Whether this is from the right lobe, or she may have mets capable of leading to hyperthyroidism is not known. TSI test to rule out Graves' is in process. I asked Dr. Leno Mittal about his thoughts on getting an uptake and scan (without Thyrogen), to see if there is indeed an increased uptake from the remaining thyroid lobe, and also about possibility . ? If so, could the study extend to other areas as the chest? Mich. Hang documented in this encounter [facility] 09-16-2023 Miscellaneous Notes I called Pt as her TSH came back suppressed, to make sure she is not taking any thyroid hormone. Pt does not think she is, and shew will double check. I will order test for T3 and FT4. Pt asked me to fax form to : [phone]. Hang Tanner. claudia Anand M.D. Endocrinology & Metabolism [place] documented in this encounter [facility] 09-13-2023 Note [facility] 09-13-2023 History of Present illness Narrative Images from [...] couple of punctate calcification seen within it. Pt had total eft thyroid lobectomy with vagus nerve sacrifice on 08/06/23. Pathology analysis was: Component FINAL DIAGNOSIS A. Lymph node, left neck level 6, [...] pT4b N0 (see comment and synoptic report). Diagnosis Comment The prior left lobe aspirate sample ([id number]) is noted to show KRAS Q61R and [...] The tumor is therefore stages as pT4b Dr. Darling Seth discussed preliminary results of this case with Dr. Ruby Gutierrez on 08/09/2023. Block for additional Biomarkers/Molecular studies C9 Synoptic Report THYROID GLAND 8th Edition - Protocol posted: 10/17/2022 THYROID GLAND: RESECTION - All Specimens SPECIMEN Procedure extended left radical thyroidectomy TUMOR [...] report. pT Category pT4b pN Category pN0a . Tumor board () recommendations: Rad onc consult. Consider PET d/t aggressive nature . This visit: Pt here with daughter connected over the phone. Pt feels tired and thinks she has not been able to bounce back all the way after her surgery. No dysphagia, dyspnea or other problems. Not on levothyroxine. PAST MEDICAL HISTORY Diagnosis Date Acute kidney [...] Stroke Father Current Outpatient Medications Medication Sig metFORMIN (GLUCOPHAGE) 1,000 mg tablet Take 1,000 mg by mouth daily with breakfast. metFORMIN (GLUCOPHAGE) 500 mg tablet Take 500 mg by mouth daily with dinner. bisacodyl (DULCOLAX) 10 mg supp 10 mg by RECTAL route once daily as needed for constipation. cranberry fruit (CRANBERRY) 450 mg tab Take by mouth. glucagon (GLUCAGON EMERGENCY KIT, HUMAN,) 1 mg injection Inject 1 mg subcutaneously one time only. dextrose (GLUCOSE GEL ORAL) Take by mouth. Ascorbic Acid 500 mg cpER Take 500 mg by mouth. insulin glargine (BASAGLAR KWIKPEN U-100 INSULIN) 100 unit/mL (3 mL) Inject 12 Units subcutaneously daily at bedtime. acetaminophen (TYLENOL) 325 mg tablet Take 650 mg by mouth every 4 hours as needed for fever (specify temp.). ammonium lactate (LAC-HYDRIN) 12 % cream Apply to affected area. atorvastatin (LIPITOR) 10 mg tablet ARNUITY ELLIPTA 100 mcg/actuation inhaler spironolactone (ALDACTONE) 25 mg tablet XARELTO 15 mg tablet pramipexole (MIRAPEX) 0.25 mg tablet oxyCODONE IR (ROXICODONE) 10 mg tab omeprazole (PRILOSEC) 40 mg capsule nystatin (MYCOSTATIN) powder Apply to affected area. modafinil (PROVIGIL) 200 mg tablet Take 200 mg by mouth. meclizine (ANTIVERT) 25 mg tab NOVOLOG U-100 INSULIN ASPART 100 unit/mL furosemide (LASIX) 40 mg tablet Take 80 mg by mouth once daily. sitaGLIPtin (JANUVIA) 100 mg tablet Take 1 tablet by mouth once daily. rOPINIRole 0.5 mg tablet Take 1 tablet by mouth daily at bedtime. blood sugar diagnostic (BLOOD GLUCOSE TEST) test strip TEST BLOOD SUGAR 4 TIMES PER DAY. DX: 250.00. INSULIN DEP: YES. AM-MED Diabetic Supplies. [employer] diltiazem CD (CARTIA XT) 180 mg 24 hr capsule Take 2 capsules by mouth once daily. pregabalin (LYRICA) 100 mg capsule Take 1 capsule by mouth three times daily. Incontinence Pad, Liner, Disp (POISE PADS [...] and stress; 788.31 Urge incontinence COMPOUNDED PRESCRIPTION adult briefs for incontinence. 788.33 Mixed incontinence urge and stress; 788.31 Urge incontinence Lanolin-mineral oil (EUCERIN ORIGINAL) lotion Apply 1 application to affected area as needed. fluticasone (FLONASE) 50 mcg/actuation nasal spray Use 1 [place] in each nostril daily at bedtime. ALBUTEROL [...] Multivitamin ORAL Tab Take one(1) tablet daily. vibegron (GEMTESA) 75 mg tablet Take 75 mg by mouth once daily. (Patient not taking: Reported on 09/13/2023) GUAIFENESIN ORAL Take by mouth as needed. loperamide HCl (IMODIUM A-D ORAL) Take by mouth as needed. lactase (LACTAID ORAL) Take by mouth as needed. rivaroxaban (XARELTO) 2.5 mg tablet Take 10 mg by mouth every evening. (Patient not taking: Reported on 09/13/2023) insulin glargine (LANTUS SOLOSTAR) 100 unit/mL (3 mL) inpn Inject 15 units SC at bedtime (Patient taking differently: Inject 6 Units subcutaneously daily at bedtime. Inject 15 units SC at bedtime) metFORMIN ER (GLUCOPHAGE XR) 500 mg 24 hr tablet Take 1 tablet by mouth twice daily before meals. (Patient not taking: Reported on 09/13/2023) Insulin Pickett, Disposable, (PEN NEEDLE) 29 x 1/2 ndle Use daily for insulin as directed. No current facility-administered medications for this visit. Facility-Administered Medications Ordered in Other Visits Medication Dose Route Frequency NaCl 0.9% iv infusion 100 mL/hr INTRAVENOUS CONTINUOUS PHYSICAL EXAM: BP (!) 120/46 (BP Site: Left Arm, BP Position: Sitting, BP Cuff Size: Large Adult) Pulse 84 Ht 162.6 cm (5' 4 ) Wt 98 kg (216 lb) BMI 37.08 kg/m Body mass index is 37.08 kg/m . Appearance: No acute distress. Obese, not cushingoid. On wheelchair. HEENT: Anicteric sclerae. Non-injected conjunctivae. EOMI. Extremities: No deformities. No edema. Neuro: Alert, speaking coherently. No involuntary motions. Skin: Normal temperature. No rash . LABS RESULTS: TSH Date Value Ref Range Status 08/05/2012 2.760 0.400 - 5.500 uU/mL Final IMAGING: Thyroid US 04/09/11: RESULTS: The right [...] female here for evaluation of thyroid nodules. 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 -Carcinoma extends to inked margin of resection. -One lymph node, negative for carcinoma (0/1). -Pathologic stage: pT4b N0. Pt will get NM PET/CT skull-thigh I na few days. She is also scheduled for RT. We discussed about possibility of checking if there is iodine uptake, besides plan for PET/CT and external RT. Pr agrees with this. Will check thyroglobulin and TSH today. Plan: TSH BLD, THYROGLOBULIN, SERUM WITH REFLEX TO IA OR LC-MS/MS, THYROGLOBULIN AB Return to office: TBD I spent a total of 36 minutes on the date of the service which included preparing to see the patient, [id number] patient care, completing clinical documentation, obtaining and/or reviewing separately obtained history, performing a medically appropriate examination, counseling and educating the patient/family/caregiver, and communicating with other HCPs (not separately reported). Hang Martinez MD documented in this encounter [facility] 09-04-2023 Miscellaneous Notes Robbie Garzon called back patient and we got her scheduled Dinah Pleitez Called Phone Number on patient Chart unable to get through called Robbie garzon and left a message to return our call Dinah Pleitez 2nd attempt. Unable to leave message. No VM. Patient to schedule New Patient Consult with Dr. Cramer. Thyroid Cancer Consult/Ref Prov Dr. Sharpe* Attempted to call patient. Phone was busy- unable to leave message Cecilia Epps Per Dr Cramer; Please schedule pt for new consult with Dr Cramer for thyroid cancer, referring doctor- Dr Sharpe Pt is non skilled at [facility] documented in this encounter [facility] 09-02-2023 Miscellaneous Notes 2 1st attempt. [...] Radiologist Reviewed: N/A Initial/Subsequent: Subsequent Treatment Strategy: 62 PET Protocol: Head And Neck Protocol Diagnostic Imaging Requested: No Is this a Pretreatment and/or an initial Pet scan: Yes - Please schedule within 3 buisness days and jarod referral urgent, if needed. Comments for Soft Shoe Dancer: N/A ROUTE TO SCHEDULERS POOL P PET AMF MECHANIC MC or P NM SPECIAL STUDIES MC This form is used for [facility] APPOINTMENTS ONLY. Is this request for a [facility] PET scan appointment? Yes: Bottom Cementer: Jessica Urrutia Requesting Person (Last Name, First Name): Jessica Urrutia Area Code + Phone/Pager: [phone] Who do we call to schedule this appointment? Patient Requesting Staff Savannah Sharpe Area Code + Phone/Pager: [phone] PET Orders (A delay in scheduling will [...] NO Send requests to P COORD REVIEW MC documented in this encounter [facility] 08-29-2023 Note [facility] 08-29-2023 Note [facility] 08-29-2023 History of Present illness Narrative [facility] SPEECH PATHOLOGY Post-Operative Evaluation and Counseling Fiberoptic Endoscopic Evaluation of Swallowing (FEES) - Post-Operative Date: August 29, 2023 Patient: Roselia Hilllettyhan Referred by: Juan Jose Gutierrez MD Impressions: [...] this diet, and only yesterday did the WEB SERVICES MANAGER at facility upgrade her to Thin Liquids, but with continued Soft Solids based on a clinical swallow assessment, as facility does not have the means to complete instrumental. Given extent of surgery, including sacrifice recurrent laryngeal nerve, it was decided to complete FEES to determine appropriate for oral diet and determine readiness for oral diet advancement. Provided patient with WEB SERVICES MANAGER's contact information in case treating WEB SERVICES MANAGER at facility in which she resides would [...] to complete therapy closer to home, in [place]. Encouraged her to follow up with WEB SERVICES MANAGER as needed in conjunction with other appointments. [...] L VC impairment Plan: Follow up with WEB SERVICES MANAGER, PRN in conjunction with other appointments. Diagnosis/history: [...] RMVL TUBE OVARY 1988 Hysterectomy, CHICA, appy Cancer treatment status: post-surgical; [...] PASSED THROUGH: Left nasal passage ANESTHESIA: Yes [place] administration via Left nasal passage ANATOMY AND PHYSIOLOGY EXAM: Nasal Cavity: blood, otherwise WFL Velar closure( pa-pa-pa / fvzrk-thjwy-fdemo ): Reduced Base of Tongue retraction ( [...] and is not ejected from the airway Meka Residue Scale: None= No residue in valleculae or pyriform sinus Trace= trace coating of the mucosa in the valleculae and/or pyriform sinus - purees Mild= Epiglottic ligament is visible, pyriform sinus if up to a quarter full Moderate= epiglottic ligament is covered, pyriform sinus is alf full Severe= Valleculae is filled to epiglottic [...] - No restriction of place, food or footwear stitcher (eats out at any opportunity) Understandability of Speech: 75 - Understandable most of the time, occasional repetition necessary Onset of Illness: 08/06/23 Initial Date of Treatment: August 29, 2023 Treatment Plan Date: August 29, 2023 Cem Dupree M.A., CCC-WEB SERVICES MANAGER Speech-Language Pathologist Pager: [phone] documented in this encounter [facility] 08-29-2023 History of Present illness Narrative [...] diet since surgery but was evaluated by WEB SERVICES MANAGER in her custodial and is now encouraged to expand her [...] COMMENT: The prior left lobe aspirate sample ([id number]) is noted to show KRAS Q61R and [...] mg by mouth daily with breakfast.) Insulin Pickett, Disposable, (PEN NEEDLE) 29 x 1/2 ndle^Use [...] 250.00. INSULIN DEP: YES. -MED Diabetic Supplies. [employer]^Disp: ^Rfl: 0 diltiazem CD (CARTIA XT) 180 [...] fluticasone (FLONASE) 50 mcg/actuation nasal spray^Use 1 [place] in each nostril daily at bedtime.^Disp: 1 [...] No Heavy Alcohol Consumption: No Lives in: [place], [place] Social Support: Lives in custodial. Has a supportive daughter in [place]. 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 COMPLETE REVIEW OF SYSTEMS: GENERAL: feeling well, [...] discussed the logistics of receiving treatment at [facility] versus closer to her custodial at [place]. She will determine whether daily transportation to [facility] is feasible but will meet with Dr. Cramer in [place] in the interim. After I spoke to [...] including the salivary glands, pharyngeal constrictors and FOOD GENERAL MANAGER structures. Daily cone beam CT will be [...] Signed: Savannah Sharpe MD cc: Rosa Silva [facility] [place] [address] Juan Jose Gutierrez MD [facility] documented in this encounter [facility] 08-29-2023 Nurse Note Additional intake questions: Has the patient had fever, nausea, vomiting, diarrhea, constipation, fatigue for > 1 week? Yes, fatigue Does the patient have a decreased appetite? No Does patient want to see a Patient Care Director? No (yes to any of above refer patient to schedulers for dietitian appointment) ) Does patient have any new or increased numbness or tingling of extremities? History of neuropathy Is patient interested in fertility information? NA Does patient need any prescription refills? No Does patient have an advanced directive in place? Yes, copies are in [facility] Electronically Signed By: Yolanda Schmitz Ma documented in this encounter [facility] 08-22-2023 Note [facility] 08-11-2023 Note [facility] 08-10-2023 Note [facility] 08-10-2023 Note HNO ID: [id number] Author: NOTE, INTERFACE, ? Service: ? Author Type: ? Type: Progress Notes Filed: 08/10/2023 02:16 Note Text: Epic Scheduled Downtime: 08/10/2023 1:00:00 AM to 08/10/2023 2:04:22 AM [facility] 08-09-2023 Note [facility] 08-09-2023 Note [facility] 08-08-2023 Note [facility] 08-07-2023 Note [facility] 08-06-2023 Note [facility] 08-06-2023 Note [facility] 06-27-2023 Note [facility] 06-27-2023 Miscellaneous Notes AMBULATORY PATIENT EDUCATION NOTE [...] Department: OTOLARYNGOLOGY documented in this encounter [facility] 06-27-2023 Note [facility] 06-27-2023 History of Present illness Narrative Palmer [...] HR BEFORE MEAL. 30 capsule 11 Insulin Pickett, Disposable, (PEN NEEDLE) 29 x 1/2 ndle [...] PER DAY. DX: 250.00. INSULIN DEP: YES. AM-[employer] Diabetic Supplies. [employer] 0 diltiazem CD (CARTIA XT) 180 mg [...] (FLONASE) 50 mcg/actuation nasal spray Use 1 [place] in each nostril daily at bedtime. 1 [...] (3 mL) Inject subcutaneously. oxycodone HCl,terephth/aspirin (OXYCODONE EYZ-EXELMDSGU-THE ORAL) Take 10 mg by mouth every [...] qDay, # 60 cap(s), 0 Refill(s), Pharmacy: [facility] levoFLOXacin (LEVAQUIN) 750 mg tablet [...] patent. Juan Jose Gutierrez MD ASSESSMENT: Roselia Shonk is a 73 year old female, non-smoker, [...] a non-smoker documented in this encounter [facility] 06-26-2023 Note [facility] 06-26-2023 History of Present illness Narrative Radiology [...] 4:17 PM documented in this encounter [facility] 06-18-2023 Miscellaneous Notes I called Pt and told her she may schedule the CT neck and have her a number to call. I also asked her to not take metformin the day before the CT scan and not restarting until we document her kidney function is good. Hang Martinez M.D. Endocrinology & Metabolism [place] documented in this encounter [facility] 06-10-2023 Miscellaneous Notes Attempted to reach patient to discuss plan of care going forward from Dr. Hubbard. Will attempt to reach patient again. NISHA Easley Endocrine Surgery documented in this encounter [facility] 06-07-2023 Note [facility] 06-07-2023 History of Present illness Narrative Images [...] for fever (specify temp.). oxycodone HCl,terephth/aspirin (OXYCODONE YEB-NQJWYMQAT-KRH ORAL) Take 10 mg by mouth every [...] mg by mouth daily with breakfast.) Insulin Pickett, Disposable, (PEN NEEDLE) 29 x 1/2 ndle Use daily for insulin as directed. diltiazem CD (CARTIA XT) 180 mg 24 hr capsule Take 2 capsules by mouth once daily. pregabalin (LYRICA) 100 mg capsule Take 1 capsule by mouth three times daily. fluticasone (FLONASE) 50 mcg/actuation nasal spray Use 1 [place] in each nostril daily at bedtime. ALBUTEROL [...] qDay, # 60 cap(s), 0 Refill(s), Pharmacy: [facility] levoFLOXacin (LEVAQUIN) 750 mg tablet [...] 250.00. INSULIN DEP: YES. AM-MED Diabetic Supplies. [employer] pravastatin 80 mg tablet Take 1 tablet [...] which included preparing to see the patient, [id number] patient care, completing clinical documentation, obtaining and/or reviewing separately obtained history, performing a medically appropriate examination, counseling and educating the patient/family/caregiver, and communicating with other HCPs (not separately reported). MD josefa Santana documented in this encounter [facility] 05-01-2023 Miscellaneous Notes Susan Estrada (Daughter) called in regarding their mother. Susan would like to know more information regarding her mothers' recent visit on 04/25. She also wanted to know more information on the appointment that she's scheduled for on 06/07 Good call back: [phone] documented in this encounter [facility] 04-26-2023 Miscellaneous Notes Please note, patient will hold Xarelto on 04/27/23 in anticipation of biopsy early next week. STAFF-INITIATED RADIOLOGY BIOPSY / ASPIRATION / DRAIN REQUEST FORM Date: April 26, 2023 Time: 4:05 PM PATIENT CONTACT INFORMATION: [phone] SCHEDULING: [facility] (Abdominal / Thoracic / [...] BASIS OF THE REQUEST: Date: 04/25/23 IMAGING: [facility] (If the imaging was obtained outside the [facility] system, PLEASE upload for review prior to approval.) Note to all persons requesting biopsies: All biopsy requests will be scheduled as quickly as possible, based on the clinical urgency, availability of appointment times, the need to hold anti-thrombolytic therapy (aspirin and other blood thinners) and the patient s schedule, including the need for an available trolley coach driver. If a percutaneous biopsy or drainage is not felt to be safe or an alternative method for establishing a diagnosis is possible, this will be discussed directly with the requesting physician. documented in this encounter [facility] 04-25-2023 Note [facility] 04-16-2023 Miscellaneous Notes 04/17/2023 - LVM for Anika Cedeno Appointment 04/25 FNA - 02/25/23 Thyroid US - 03/01/23 documented in this encounter [facility] 06-20-2021 Note . MICRO - Microbiology [...] Locations *1: This test was performed at: [address], [facility] , [facility] ([place]) 06-18-2021 Note . MICRO - Microbiology PROCEDURE: [...] Locations *1: This test was performed at: [facility], [address] [place] [address], [id number] , [facility] ([place]) 06-16-2021 Note ORIGINAL PROCEDURE: 1. PICC placement with fluoroscopy and ultrasound guidance ACID CONCENTRATOR: Sheri Maldonado PA-C CLINICAL STATEMENT: Left great [...] Date: 06/16/2021 4:14:24 PM Ordering Provider: KALYAN [facility] ([place]) 06-16-2021 Note . MICRO - Microbiology PROCEDURE: [...] Locations *1: This test was performed at: [facility], [address] [place] [address], [id number] , [facility] ([place]) 06-15-2021 Note . MICRO - Microbiology PROCEDURE: [...] Locations *1: This test was performed at: [facility], [address] [place] [address], [facility] , [facility] ([place]) documented as of this encounter (statuses as of 04/17/2023) [facility] History of Past illness Narrative* Problem [...] this encounter (statuses as of 04/27/2023) [facility] History of Past illness Narrative* Problem [...] this encounter (statuses as of 05/04/2023) [facility] History of Past illness Narrative* Problem [...] this encounter (statuses as of 06/10/2023) [facility] History of Past illness Narrative* Problem [...] this encounter (statuses as of 06/11/2023) [facility] History of Past illness Narrative* Problem [...] this encounter (statuses as of 06/19/2023) [facility] History of Past illness Narrative* Problem [...] this encounter (statuses as of 06/27/2023) [facility] History of Past illness Narrative* Problem [...] this encounter (statuses as of 06/28/2023) [facility] of Past illness Narrative* Problem [...] this encounter (statuses as of 06/28/2023) [facility] of Past illness Narrative* Problem [...] of this encounter (statuses as of 08/30/2023) [facility] History of Past illness Narrative* Problem [...] of this encounter (statuses as of 08/30/2023) [facility] of Past illness Narrative* Problem [...] of this encounter (statuses as of 09/02/2023) [facility] of Past illness Narrative* Problem [...] of this encounter (statuses as of 09/04/2023) [facility] of Past illness Narrative* Problem [...] of this encounter (statuses as of 09/06/2023) [facility] of Past illness Narrative* Problem [...] as of this encounter (statuses as of 09/13/2023) [facility] of Past illness Narrative* Problem [...] as of this encounter (statuses as of 09/16/2023) [facility] of Past illness Narrative* Problem [...] as of this encounter (statuses as of 09/16/2023) [facility] of Past illness Narrative* Problem [...] as of this encounter (statuses as of 09/17/2023) [facility] of Past illness Narrative* Problem [...] as of this encounter (statuses as of 09/19/2023) [facility] of Past illness Narrative* Problem [...] as of this encounter (statuses as of 09/19/2023) [facility] of Past illness Narrative* Problem [...] as of this encounter (statuses as of 09/26/2023) [facility] of Past illness Narrative* Problem [...] as of this encounter (statuses as of 09/27/2023) [facility] of Past illness Narrative* Problem [...] as of this encounter (statuses as of 09/27/2023) [facility] of Past illness Narrative* Problem [...] as of this encounter (statuses as of 09/27/2023) [facility] note* Diagnosis Neck mass- Primary Swelling, mass, or lump in head and neck [facility]* Diagnosis 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 and other parts of nervous system documented in this encounter [facility]* Diagnosis 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 and other parts of nervous system documented in this encounter [facility] note* 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 and other parts of nervous system documented [facility] this encounter [facility]* Diagnosis Thyroid cancer (HCC) Malignant neoplasm of thyroid gland [facility] Diagnosis Oropharyngeal dysphagia- Primary Dysphagia, oropharyngeal phase Thyroid cancer (HCC) Malignant neoplasm of thyroid gland [facility] Diagnosis Thyroid cancer (HCC) Malignant neoplasm of thyroid gland [facility] Diagnosis Thyroid cancer (HCC)- Primary Malignant neoplasm of thyroid gland [facility] Diagnosis Abnormal finding of diagnostic imaging- Primary Other nonspecific (abnormal) findings on radiological and other examinations of body structure [facility] Diagnosis Thyroid cancer (HCC)- Primary Malignant neoplasm of thyroid gland [facility] Diagnosis Thyroid cancer (HCC)- Primary Malignant neoplasm of thyroid gland Low TSH level Nonspecific abnormal results of thyroid function study documented in this encounter [facility] note* Diagnosis Thyroid cancer (HCC)- Primary Malignant neoplasm of thyroid gland [facility]* Diagnosis Thyroid cancer (HCC) Malignant neoplasm of thyroid gland [facility] Diagnosis Thyroid cancer (HCC) Malignant neoplasm of thyroid gland documented in this encounter [facility] Diagnosis Thyroid cancer (HCC) Malignant neoplasm of thyroid gland documented in this encounter [facility] for referral (narrative)* Diagnostic Procedure Only (Routine) - Pending Review Specialty Diagnoses / Procedures Referred By Contcrissy t Referred To Contact MOLECULAR & FUNCTIONAL IMAGING Diagnoses Thyroid cancer (HCC) Procedures NM PET/CT SKULL-THIGH INITIAL PET IMAGING CT ATTENUATION SKULL BASE MID-THIGH Savannah Sharpe MD [address] [place] [address] Molecular & Functional Imaging [address] [place], [place] [id number] Referral ID Status Reason Start Date Expiration Date Visits Requested Visits Authorized [id number] Pending Review Auto-Generat ed Referral 08/29/2023 09/27/2024 1 1 [facility] for referral (narrative)* Diagnostic Procedure Only (Routine) - Pending Review Specialty Diagnoses / Procedures Referred By Contac t Referred To Contact MOLECULAR & FUNCTIONAL IMAGING Diagnoses Thyroid cancer (HCC) Procedures NM THYROID CA UPTAKE THYROID CARCINOMA METASTASES UPTAKE Hang Martinez MD [address] [address] Molecular & Functional Imaging [address] [place] [address] Referral ID Status Reason Start Date Expiration Date Visits Requested Visits Authorized [id number] Pending Review Auto-Generat ed Referral 09/16/2023 10/15/2024 1 1 [facility] for referral (narrative)* Diagnostic Procedure Only (Routine) - Authorized Specialty Diagnoses / Procedures Referred By Contac t Referred To Contact MOLECULAR & FUNCTIONAL IMAGING Diagnoses Thyroid cancer (HCC) Procedures NM THY UPTAKE ONLY THYROID UPTAKE SINGLE/MULTIPLE QUANT MEASUREMENT Hang Martinez MD [address] [address] Molecular & Functional Imaging [address] [place] [address] Referral ID Status Reason Start Date Expiration Date Visits Requested Visits Authorized [id number] Authorized Auto-Generat ed Referral 09/19/2023 10/18/2024 1 1 * Diagnostic Procedure Only (Routine) - Authorized Specialty Diagnoses / Procedures Referred By Contac t Referred To Contact MOLECULAR & FUNCTIONAL IMAGING Diagnoses Thyroid cancer (HCC) Procedures NM THYROID CA WB THYROID CARCINOMA METASTASES IMG WHOLE BODY Hang Martinez MD [address] [address] Molecular & Functional Imaging [address] [place] [address] Referral ID Status Reason Start Date Expiration Date Visits Requested Visits Authorized [id number] Authorized Auto-Generat ed Referral 09/19/2023 10/18/2024 1 1 [place] for referral (narrative)* Diagnostic Procedure Only (Routine) - Closed Specialty Diagnoses / Procedures Referred By Grady perez Referred To Contact MOLECULAR & FUNCTIONAL IMAGING Diagnoses Thyroid cancer (HCC) Procedures NM PET/CT SKULL-THIGH INITIAL PET IMAGING CT ATTENUATION SKULL BASE MID-THIGH Savannah Sharpe MD [address] [place] [address] Molecular & Functional Imaging [address] [place], [place] [id number] Referral ID Status Reason Start Date Expiration Date V isits Requested Visits Authorized [id number] Closed Auto-Generate d Referral 08/29/2023 09/27/2024 1 1 [place] for visit Narrative* Diagnostic Procedure Only (Routine) - Closed Specialty Diagnoses / Procedures Referred By Grady perez Referred To Contact MOLECULAR & FUNCTIONAL IMAGING Diagnoses Thyroid cancer (HCC) Procedures NM THY UPTAKE ONLY THYROID UPTAKE SINGLE/MULTIPLE QUANT MEASUREMENT Hang Martinez MD [address] [address] Molecular & Functional Imaging [address] [place] [address] Referral ID Status Reason Start Date Expiration Date V isits Requested Visits Authorized [id number] Closed Auto-Generate d Referral 09/19/2023 10/18/2024 1 1 [facility] for visit Narrative* Diagnostic Procedure Only (Routine) - Closed Specialty Diagnoses / Procedures Referred By Contac t Referred To Contact MOLECULAR & FUNCTIONAL IMAGING Diagnoses Thyroid cancer (HCC) Procedures NM PET/CT SKULL-THIGH INITIAL PET IMAGING CT ATTENUATION SKULL BASE MID-THIGH Savannah Sharpe MD [address] [place] [address] Molecular & Functional Imaging [address] [place] [address] Referral ID Status Reason Start Date Expiration Date V isits Requested Visits Authorized [id number] Closed Auto-Generate d Referral 08/29/2023 09/27/2024 1 1 [facility] Summary Purpose Family History No Family History Records FoundNo Family History Records Found Advance Directives No Advanced Directives Records FoundDocuments on File Type Date Recorded Patient Merchandising Director Expl anation Advance Directive(s) 04/29/2023 11:52 AM Documents on File Type Date Recorded Patient Merchandising Director Expl anation Advance Directive(s) 04/29/2023 11:52 AM Reason for Referral Specialty Diagnoses / Procedures Referred By Contac t Referred To Contact CT IMAGING Diagnoses Follicular neoplasm of thyroid Procedures CT NECK SOFT TISSUE W IVCON CT SOFT TISSUE NECK W/CONTRAST MATERIAL Del Hang Reno MD [address] [facility] [address] [place] [address] Ct [facility] [place] [address] Referral ID Status Reason Start Date Expiration Date Visits Requested Visits Authorized [id number] Pending Review Auto-Generat ed Referral 3 07/17/2024 1 1 Referral ID Status Reason Start Date Expiration Date V isits Requested Visits Authorized [id number] Closed Auto-Generate d Referral 06/18/2023 07/17/2024 1 1 Specialty Diagnoses / Procedures Referred By Contac t Referred To Contact Diagnoses Thyroid cancer (HCC) Procedures REFER TO PACC - PRE ANESTHESIA CONSULTATION CLINIC OFFICE/OUTPATIENT [facility] 60-74 MINUTES Juan Jose Gutierrez MD [address] [place] [address] Referral ID Status Reason Start Date Expiration Date Visits Requested Visits Authorized [id number] Pending Review PCP Requested Referral 3 06/26/2024 1 1 Specialty Diagnoses / Procedures Referred By Contac t Referred To Contact [facility] Diagnoses Thyroid cancer (HCC) Procedures ECG COMPLETE ECG ROUTINE ECG W/LEAST 12 LDS W/I&R Juan Jose Gutierrez MD [address] [place] [address] [facility] [place] [address] [place] [address] Referral ID Status Reason Start Date Expiration Date Visits Requested Visits Authorized [id number] Pending Review Auto-Generat ed Referral 3 06/26/2024 1 1 Additional Source Comments INFORMATION SOURCE (unrecogn ized section and content) DATE CREATED AUTHOR AUTHOR'S ORGANIZ ATION 09/29/2023 [facility] Source Comments (unrecognize d section and content) In the event this informatio n is protected by the Federal Confidentiality of Alcohol and Drug Abuse Patient Records regulations: The Federal rules restrict any use of the information to criminally investigate or prosecute any alcohol or drug abuse patient.[facility] the event this information is protected by the Federal Confidentiality of Alcohol and Drug Abuse Patient Records regulations: The Federal rules restrict any use of the information to criminally investigate or prosecute any alcohol or drug abuse patient.[facility] HospitalIn the event this information is protected by the Federal Confidentiality of Alcohol and Drug Abuse Patient Records regulations: The Federal rules restrict any use of the information to criminally investigate or prosecute any alcohol or drug abuse patient.[facility] Hospital[facility] the event this information is protected by the Federal Confidentiality of Alcohol and Drug Abuse Patient Records regulations: The Federal rules restrict any use of the information to criminally investigate or prosecute any alcohol or drug abuse patient.[facility] HospitalIn the event this information is protected by the Federal Confidentiality of Alcohol and Drug Abuse Patient Records regulations: The Federal rules restrict any use of the information to criminally investigate or prosecute any alcohol or drug abuse patient.[facility] HospitalIn the event this information is protected by the Federal Confidentiality of Alcohol and Drug Abuse Patient Records regulations: The Federal rules restrict any use of the information to criminally investigate or prosecute any alcohol or drug abuse patient.[facility] HospitalIn the event this information is protected by the Federal Confidentiality of Alcohol and Drug Abuse Patient Records regulations: The Federal rules restrict any use of the information to criminally investigate or prosecute any alcohol or drug abuse patient.[facility] HospitalIn the event this information is protected by the Federal Confidentiality of Alcohol and Drug Abuse Patient Records regulations: The Federal rules restrict any use of the information to criminally investigate or prosecute any alcohol or drug abuse patient.[facility] Hospital[facility] the event this information is protected by the Federal Confidentiality of Alcohol and Drug Abuse Patient Records regulations: The Federal rules restrict any use of the information to criminally investigate or prosecute any alcohol or drug abuse patient.[facility] HospitalIn the event this information is protected by the Federal Confidentiality of Alcohol and Drug Abuse Patient Records regulations: The Federal rules restrict any use of the information to criminally investigate or prosecute any alcohol or drug abuse patient.[facility] Hospital[facility] the event this information is protected by the Federal Confidentiality of Alcohol and Drug Abuse Patient Records regulations: The Federal rules restrict any use of the information to criminally investigate or prosecute any alcohol or drug abuse patient.[facility] HospitalIn the event this information is protected by the Federal Confidentiality of Alcohol and Drug Abuse Patient Records regulations: The Federal rules restrict any use of the information to criminally investigate or prosecute any alcohol or drug abuse patient.[facility] Hospital[facility] the event this information is protected by the Federal Confidentiality of Alcohol and Drug Abuse Patient Records regulations: The Federal rules restrict any use of the information to criminally investigate or prosecute any alcohol or drug abuse patient.[facility] HospitalIn the event this information is protected by the Federal Confidentiality of Alcohol and Drug Abuse Patient Records regulations: The Federal rules restrict any use of the information to criminally investigate or prosecute any alcohol or drug abuse patient.[facility] Hospital[facility] the event this information is protected by the Federal Confidentiality of Alcohol and Drug Abuse Patient Records regulations: The Federal rules restrict any use of the information to criminally investigate or prosecute any alcohol or drug abuse patient.[facility] Hospital[facility] the event this information is protected by the Federal Confidentiality of Alcohol and Drug Abuse Patient Records regulations: The Federal rules restrict any use of the information to criminally investigate or prosecute any alcohol or drug abuse patient.[facility] HospitalIn the event this information is protected by the Federal Confidentiality of Alcohol and Drug Abuse Patient Records regulations: The Federal rules restrict any use of the information to criminally investigate or prosecute any alcohol or drug abuse patient.[facility] HospitalIn the event this information is protected by the Federal Confidentiality of Alcohol and Drug Abuse Patient Records regulations: The Federal rules restrict any use of the information to criminally investigate or prosecute any alcohol or drug abuse patient.[facility] HospitalIn the event this information is protected by the Federal Confidentiality of Alcohol and Drug Abuse Patient Records regulations: The Federal rules restrict any use of the information to criminally investigate or prosecute any alcohol or drug abuse patient.[facility] HospitalIn the event this information is protected by the Federal Confidentiality of Alcohol and Drug Abuse Patient Records regulations: The Federal rules restrict any use of the information to criminally investigate or prosecute any alcohol or drug abuse patient.[facility] HospitalIn the event this information is protected by the Federal Confidentiality of Alcohol and Drug Abuse Patient Records regulations: The Federal rules restrict any use of the information to criminally investigate or prosecute any alcohol or drug abuse patient.[facility] HospitalIn the event this information is protected by the Federal Confidentiality of Alcohol and Drug Abuse Patient Records regulations: The Federal rules restrict any use of the information to criminally investigate or prosecute any alcohol or drug abuse patient.[facility] HospitalIn the event this information is protected by the Federal Confidentiality of Alcohol and Drug Abuse Patient Records regulations: The Federal rules restrict any use of the information to criminally investigate or prosecute any alcohol or drug abuse patient.[facility] HospitalIn the event this information is protected by the Federal Confidentiality of Alcohol and Drug Abuse Patient Records regulations: The Federal rules restrict any use of the information to criminally investigate or prosecute any alcohol or drug abuse patient.[facility] Reason for Visit (unrecogniz ed section and content) Reason Comments Biopsy Request Reason Comments Patient Question Reason Comments Consult Specialty Diagnoses / Procedures Referred By Contac t Referred To Contact Endocrinology / ENDOCRINOLOGY Diagnoses Thyroid Cancer Procedures [facility] Petros Spicer MD [address] [address] Hang Martinez MD [address] [facility] [address] [place] [address] Referral ID Status Reason Start Date Expiration Date V isits Requested Visits Authorized [id number] Outside PCP 06/07/2023 08/06/2023 1 1 Reason Comments Patient Update Reason Comments Radiology CT Specialty Diagnoses / Procedures Referred By Contac t Referred To Contact CT IMAGING Diagnoses Follicular neoplasm of thyroid Procedures CT NECK SOFT TISSUE W IVCON CT SOFT TISSUE NECK W/CONTRAST MATERIAL Hang Martinez MD [address] [facility] [address] [place] [address] Ct Imaging [place] [address] Referral ID Status Reason Start Date Expiration Date V isits Requested Visits Authorized [id number] Closed Auto-Generate d Referral 06/18/2023 07/17/2024 1 [...] drinks. Specialty Diagnoses / Procedures Referred By Contac t Referred To Contact Ent - [facility]ol[facility]ology / [facility] Diagnoses Thyroid cancer (HCC) Procedures CONSULT TO ENT OFFICE/OUTPATIENT NEW HIGH MDM 60-74 MINUTES OFFICE/OUTPATIENT ESTABLISHED HIGH MDM 40-54 MIN Rosa Silva MD [address] [place] [address] Juan Jose Gutierrez MD [address] [employer] [place] [address] Referral ID Status Reason Start Date Expiration Date Visits Requested Visits Authorized [id number] Authorized PCP Requested Referral 3 06/11/2024 99 99 Reason Comments Dysphagia Reason Comments New Patient Specialty Diagnoses / Procedures Referred By Contac t Referred To Contact Radiation Oncology / [facility] Diagnoses Thyroid cancer (HCC) Procedures RAD/ONC CONSULT OFFICE/OUTPATIENT NEW HIGH MDM 60 MINUTES Juan Jose Gutierrez MD [address] [place] [address] [facility] [address] [place] [address] Referral ID Status Reason Start Date Expiration Date V isits Requested Visits Authorized [id number] Closed PCP Requested Referral 08/20/2023 08/19/2024 1 1 Reason Comments Nm Pet Request Reason Comments Appointment Reason Comments Follow Up Specialty Diagnoses / Procedures Referred By Contac t Referred To Contact Endocrinology / ENDOCRINOLOGY Diagnoses 10 weeks (around 08/16/2023 Procedures OFFICE/OUTPATIENT ESTABLISHED HIGH MDM 40-54 MIN EST SHANA PATIENT Hang Martinez MD [address] [address] Hang Martinez MD [address] [address] Referral ID Status Reason Start Date Expiration Date Visits Re quested Visits Authorized [id number] Closed 07/29/2023 07/28/2024 1 1 Reason Comments Radiology NM Specialty Diagnoses / Procedures Referred By Contac t Referred To Contact MOLECULAR & FUNCTIONAL IMAGING Diagnoses Thyroid cancer (HCC) Procedures NM THYROID CA WB THYROID CARCINOMA METASTASES IMG WHOLE BODY Hang Martinez MD [address] [address] Molecular & Functional Imaging [address] [place] [id number] Referral ID Status Reason Start Date Expiration Date V isits Requested Visits Authorized [id number] Closed Auto-Generate d Referral 09/19/2023 10/18/2024 1 1 Care Teams (unrecognized sec tion and content) Speed Operator Relationship Specialty Start Date End Date Rosa Silva MD [address] [place] [address] PCP - General Gerontology 05/02/23 Speed Operator Relationship Specialty Start Date End Date Rosa Silva MD [address] [place] [address] PCP - General Gerontology 05/02/23 Speed Operator Relationship Specialty Start Date End Date Rosa Silva MD [address] [place] [address] PCP - General Gerontology 05/02/23 Speed Operator Relationship Specialty Start Date End Date Rosa Silva MD [address] [place] [address] PCP - General Gerontology 05/02/23 Speed Operator Relationship Specialty Start Date End Date Rosa Silva MD [address] [place] [address] PCP - General Gerontology 05/02/23 Speed Operator Relationship Specialty Start Date End Date Rosa Silva MD [address] [place] [address] PCP - General Gerontology 05/02/23 Speed Operator Relationship Specialty Start Date End Date Rosa Silva MD [address] [place] [address] PCP - General Gerontology 05/02/23 Speed Operator Relationship Specialty Start Date End Date Rosa Silva MD [address] [place] [address] PCP - General Gerontology 05/02/23 Speed Operator Relationship Specialty Start Date End Date Rosa Silva MD [address] [place] [address] PCP - General Gerontology 05/02/23 Mel Cramer MD [address] [place] [address] Physician Radiation Oncology 09/05/23 Speed Operator Relationship Specialty Start Date End Date Rosa Silva MD [address] [place] [address] PCP - General Gerontology 05/02/23 Mel Cramer MD [address] [place] [address] Physician Radiation Oncology 09/05/23 Speed Operator Relationship Specialty Start Date End Date Rosa Silva MD [address] [place] [address] PCP - General Gerontology 05/02/23 Mel Cramer MD [address] [place] [address] Physician Radiation Oncology 09/05/23 Speed Operator Relationship Specialty Start Date End Date Rosa Silva MD [address] [place] [address] PCP - General Gerontology 05/02/23 Mel Cramer MD [address] [place] [address] Physician Radiation Oncology 09/05/23 Speed Operator Relationship Specialty Start Date End Date Rosa Silva MD [address] [place] [address] PCP - General Gerontology 05/02/23 Mel Cramer MD [address] [place] [address] Physician Radiation Oncology 09/05/23 Speed Operator Relationship Specialty Start Date End Date Rosa Silva MD [address] [place] [address] PCP - General Gerontology 05/02/23 Mel Cramer MD [address] [place] [address] Physician Radiation Oncology 09/05/23 Speed Operator Relationship Specialty Start Date End Date Rosa Silva MD [address] [place] [address] PCP - General Gerontology 05/02/23 Mel Cramer MD [address] [place] [address] Physician Radiation Oncology 09/05/23 Speed Operator Relationship Specialty Start Date End Date Rosa Silva MD [address] [place] [address] PCP - General Gerontology 05/02/23 Mel rCamer MD [address] [place] [address] Physician Radiation Oncology 09/05/23 Speed Operator Relationship Specialty Start Date End Date Rosa Silva MD [address] [place] [address] PCP - General Gerontology 05/02/23 Mel Cramer MD [address] [place] [address] Physician Radiation Oncology 09/05/23 FOR RECORDS PERTAINING [...] BE BASED ON THE PRIMARY CLINICAL RECORDS. [facility]. provides no warranty or guarantee of the accuracy or completeness of information in this document.
[2023-10-01 09:42] LABS: Hematocrit 34.8 % (37-47); Hemoglobin 10.9 g/dL (12.0-15.0); Mean Corp Hgb Conc 31.3 g/dL (32-36); Mean Corpuscular Hgb 27.2 pg (27.0-32.0); Mean Corpuscular Volume 86.8 fL (81-99); Mean Platelet Vol. 12.3 fl (6.2-12.0); POSITIVE COUNT YES; Platelet Count 85 K/mm3 (150-450); RBC Distribution Width CV 14.8 % (11.6-14.6); Red Blood Count 4.01 M/mm3 (4.2-5.4)
[2023-10-01 09:43] LABS: Scan Indicated on CBC? Y/N YES- FLAGS NOTED
[2023-10-01 10:01] LABS: Anion Gap 5 (5-15); BUN 27 mg/dL (7-18); BUN/Creat Ratio 44.3 RATIO (10-20); Calcium,Total 9.3 mg/dL (8.5-10.1); Chloride 111 mmol/L (98-107); Creatinine, Serum 0.61 mg/dL (0.55-1.02); EST Glomerular Filtration Rate 101 mL/min (>60); Est Glom Filt Rate - Afr Amer 123 mL/min (>60); Glucose 136 mg/dL (74-106); Magnesium 2.2 mg/dL (1.6-2.6); Potassium 3.8 mmol/L (3.5-5.1); Sodium Level 140 mmol/L (136-145)
== END ==
LOC: OLS.SW 05:00
PROVIDERS: PCP Internal Medicine; Visit Provider Internal Medicine
DX: D64.9 Anemia, unspecified (principal); N18.9 Chronic kidney disease, unspecified
CPT/HCPCS: 36415; 80048; 83735; 85027

== ENCOUNTER → 2023-10-07 | Outpatient (REF) | payer MEDICARE, MEDICAID, SELFPAY ==
[2023-10-07 09:09] LABS: Absolute Lymphocyte Count 1.43 X10^3/uL (0.83-4.51); Absolute Neutrophil Count 2.9 X10^3/uL (2.0-7.7); Basophil# 0.01 X10^3/uL; Basophil% 0.2 % (0-1); Eosinophil# 0.12 X10^3/uL; Eosinophils% 2.4 % (0-5); Hematocrit 34.9 % (37-47); Hemoglobin 11.3 g/dL (12.0-15.0); Lymphocyte # 1.43 X10^3/ul (0.83-4.51); Mean Corp Hgb Conc 32.4 g/dL (32-36); Mean Corpuscular Hgb 27.8 pg (27.0-32.0); Mean Corpuscular Volume 85.7 fL (81-99); Monocyte# 0.51 X10^3/uL; Monocyte% 10.3 % (0-10); NRBC Flagged by Analyzer 0 % (0-5); Neutrophil # 2.85 X10^3/uL (2.7-7.7); Neutrophil % 57.9 % (47-70); Platelet Count 113 K/mm3 (150-450); RBC Distribution Width CV 14.4 % (11.6-14.6); RBC Distribution Width SD 44.4 fl (35.1-43.9); Red Blood Count 4.07 M/mm3 (4.2-5.4); White Blood Count 4.9 K/mm3 (4.4-11.0)
== END ==
LOC: OLS.SW 05:00
PROVIDERS: PCP Internal Medicine; Visit Provider Internal Medicine
DX: D64.9 Anemia, unspecified (principal)
CPT/HCPCS: 36415; 85025

== ENCOUNTER → 2023-10-08 | Outpatient (REF) | payer MEDICARE, MEDICAID, SELFPAY ==
[2023-10-08 09:17] LABS: Hematocrit 34.4 % (37-47); Hemoglobin 11.2 g/dL (12.0-15.0); Mean Corp Hgb Conc 32.6 g/dL (32-36); Mean Corpuscular Hgb 27.6 pg (27.0-32.0); Mean Corpuscular Volume 84.7 fL (81-99); Mean Platelet Vol. 11.9 fl (6.2-12.0); Platelet Count 121 K/mm3 (150-450); RBC Distribution Width CV 14.3 % (11.6-14.6); RBC Distribution Width SD 44.1 fl (35.1-43.9); Red Blood Count 4.06 M/mm3 (4.2-5.4); White Blood Count 6.5 K/mm3 (4.4-11.0)
[2023-10-08 09:35] LABS: Anion Gap 5 (5-15); BUN 27 mg/dL (7-18); BUN/Creat Ratio 45.7 RATIO (10-20); Calcium,Total 9.2 mg/dL (8.5-10.1); Chloride 108 mmol/L (98-107); Creatinine, Serum 0.59 mg/dL (0.55-1.02); EST Glomerular Filtration Rate 105 mL/min (>60); Est Glom Filt Rate - Afr Amer 127 mL/min (>60); Glucose 99 mg/dL (74-106); Magnesium 2.1 mg/dL (1.6-2.6); Potassium 3.6 mmol/L (3.5-5.1); Sodium Level 142 mmol/L (136-145)
== END ==
LOC: OLS.SW 05:00
PROVIDERS: PCP Internal Medicine; Visit Provider Internal Medicine
DX: D64.9 Anemia, unspecified (principal); D69.6 Thrombocytopenia, unspecified; I48.0 Paroxysmal atrial fibrillation; N18.32 Chronic kidney disease, stage 3b
CPT/HCPCS: 36415; 80048; 83735; 85027

== ENCOUNTER → 2023-10-15 | Outpatient (REF) | payer MEDICARE, MEDICAID, SELFPAY ==
[2023-10-15 09:36] LABS: Hematocrit 38.2 % (37-47); Hemoglobin 12.1 g/dL (12.0-15.0); Mean Corp Hgb Conc 31.7 g/dL (32-36); Mean Corpuscular Hgb 27.3 pg (27.0-32.0); Mean Platelet Vol. 11.8 fl (6.2-12.0); Platelet Count 126 K/mm3 (150-450); RBC Distribution Width CV 14.6 % (11.6-14.6); RBC Distribution Width SD 45.6 fl (35.1-43.9); Red Blood Count 4.44 M/mm3 (4.2-5.4); White Blood Count 8.3 K/mm3 (4.4-11.0)
[2023-10-15 09:54] LABS: Anion Gap 5 (5-15); BUN 23 mg/dL (7-18); BUN/Creat Ratio 35.9 RATIO (10-20); Calcium,Total 9.5 mg/dL (8.5-10.1); Chloride 106 mmol/L (98-107); Creatinine, Serum 0.64 mg/dL (0.55-1.02); EST Glomerular Filtration Rate 96 mL/min (>60); Est Glom Filt Rate - Afr Amer 116 mL/min (>60); Glucose 87 mg/dL (74-106); Magnesium 1.9 mg/dL (1.6-2.6); Potassium 3.6 mmol/L (3.5-5.1); Sodium Level 140 mmol/L (136-145)
== END ==
LOC: OLS.SW 05:00
PROVIDERS: PCP Internal Medicine; Visit Provider Internal Medicine
DX: D64.9 Anemia, unspecified (principal); D69.6 Thrombocytopenia, unspecified; I48.0 Paroxysmal atrial fibrillation
CPT/HCPCS: 36415; 80048; 83735; 85027

== ENCOUNTER 2023-10-20 20:28 | Emergency (ER) | payer MEDICARE, MEDICAID, SELFPAY ==
[2023-10-20 20:28] VITALS: BP 112/55; PULSE 99; RESP 16; TEMP 37.2; O2SAT 93; BMI 42.7
[2023-10-20 20:34] VITALS: BP 112/55; PULSE 97; RESP 18; TEMP 37.2; O2SAT 94
--- NOTE | 2023-10-20 20:49 | EKG12_ITS ---
Test Reason : DYSRHYTHMIA Blood Pressure : / mmHG Vent. Rate : 095 BPM Atrial Rate : 095 BPM P-R Int : 192 ms QRS Dur : 088 ms QT Int : 330 ms P-R-T Axes : 046 026 046 degrees QTc Int : 414 ms Normal sinus rhythm Possible Left atrial enlargement Septal infarct , age undetermined Abnormal ECG Confirmed by DANIELA SNYDER, DEREK ([id number]), editor sound BETHEL GAVIRIA ([id number]) on 10/21/2023 9:23:50 AM Referred By: Confirmed By:DEREK SUAREZ MD
--- NOTE | 2023-10-20 20:51 | EX.ED.DYSGE1 ---
HPI History of Present Illness Chief Complaint: Dizziness Informant: patient and EMS Onset/Context/Timing Onset: Today and Yesterday Context: Gradual Onset Timing: Continuous Current Severity: Mild Maximum Severity: Mild Narrative Narrative: 73-year-old female history of A-fib on Xarelto, COPD, CKD, diabetes with prior UTI and prior sepsis. Currently she is a resident at [facility]. She had a fever of 102 yesterday. States she slept a lot yesterday. She has had nausea but no vomiting or diarrhea. Nonproductive cough. They checked her urine there and thought she might have a UTI and sent her to the emergency department. Prior similar symptoms: Yes Recent Illness/Hospitalization: No PFSH PFS Medical History Acute ITP Anemia Anxiety and depression Arthritis Asthma Atrial fibrillation Back pain Benign hypertension Bilateral lower extremity edema BiPAP (biphasic positive airway pressure) dependence Cellulitis Cellulitis of left foot Cholelithiasis Chronic acquired lymphedema Chronic back pain Chronic kidney disease, stage 3b Chronic malnutrition Chronic pain Chronic stasis dermatitis of left lower extremity Congestive heart failure (CHF) COPD (chronic obstructive pulmonary disease) Decreased pedal pulses Depression Diabetes Diabetic ulcer of left foot Diabetic ulcer of right foot Diabetic ulcer of toe of left foot Dialysis patient DVT (deep venous thrombosis) Elephantiasis GERD (gastroesophageal reflux disease) Hammertoe of left foot Hammertoe of left foot Heartburn High cholesterol History of edema History of kidney stones History of pain when walking History of stress test HLD (hyperlipidemia) Hoarseness Hypertension Hypertensive chronic kidney disease with stage 1 through stage 4 chronic kidney disease, or unspecified chronic kidney disease Hypokalemia Increased BMI Insulin dependent diabetes mellitus Leg cramps Localized edema MRSA infection Non-smoker Nonhealing ulcer of left lower extremity with fat layer exposed Nonhealing ulcer of right lower extremity with fat layer exposed prison resident Obstructive sleep apnea (adult) (pediatric) On home oxygen therapy Osteoporosis PAF (paroxysmal atrial fibrillation) Peripheral neuropathy Renal lithiasis Rheumatic fever Rheumatoid arthritis RLS (restless legs syndrome) Seasonal allergies Shortness of breath on exertion Sleep apnea Tachycardia Thyroid nodule Type 2 diabetes mellitus with diabetic polyneuropathy Ulcer of left foot with fat layer exposed Ulcer of right foot with fat layer exposed Venous insufficiency Venous stasis ulcer of right thigh with fat layer exposed Venous ulcer of left lower extremity with varicose veins Home Medications fluticasone propionate 50 mcg/actuation nasal spray,suspension 1 spray QHS allergies 02/16/14 [History Last Taken 12/22/22] acetaminophen 325 mg tablet 650 mg PO Q4H PRN Pain 09/09/21 [History Last Taken 10/08/22] bisacodyl 10 mg rectal suppository 10 mg OH DAILY PRN Constipation 09/09/21 [History Last Taken Unknown] multivitamin 1 tab PO DAILY supplement 09/09/21 [History Last Taken 12/23/22] omeprazole 40 mg capsule,delayed release 40 mg PO DAILY gerd 09/09/21 [History Last Taken 12/23/22] rivaroxaban 15 mg tablet (Xarelto) 15 mg PO DINNER 30 days #0 tabs 05/28/22 [Rx Last Taken 12/22/22] atorvastatin 10 mg tablet (Lipitor) 10 mg PO QHS cholesterol 09/09/22 [History Last Taken 12/22/22] meclizine 25 mg tablet 25 mg PO TID PRN Vertigo 09/09/22 [History Last Taken Unknown] pramipexole 0.25 mg tablet (Mirapex) 0.25 mg PO QHS restless legs 09/09/22 [History Last Taken 12/22/22] pregabalin 50 mg capsule 100 mg PO TID NEUROPATHY 10/09/22 [History Last Taken 12/23/22] fluticasone furoate 100 mcg/actuation blister powder for inhalation (Arnuity Ellipta) 1 inh inhalation QHS COPD 12/23/22 [History Last Taken 12/22/22] methenamine hippurate 1 gram tablet 1 g PO BID UTI 12/23/22 [History Last Taken 12/23/22] ferrous sulfate 325 mg (65 mg iron) tablet (iron) 325 mg PO QODAY supplement 30 days #0 tabs 12/27/22 [Rx Last Taken 12/23/22] furosemide 20 mg tablet 40 mg (2 x 20 mg) PO DAILY EDEMA 30 days #0 tabs 12/27/22 [Rx Last Taken 12/22/22] sennosides 8.6 mg-docusate sodium 50 mg tablet (Stool Softener-Stimulant Laxative) 2 tab PO BID PRN PRN Constipation #0 tabs 12/27/22 [Rx Last Taken Unknown] spironolactone 25 mg tablet 25 mg PO DAILY diuretic 30 days #0 tabs 12/27/22 [Rx Last Taken 12/23/22] insulin glargine 100 unit/mL (3 mL) subcutaneous pen (Basaglar KwikPen U-100 Insulin) 12 unit subcut QHS diabetes 01/26/23 [History Last Taken Unknown] albuterol sulfate 2.5 mg/3 mL (0.083 %) solution for nebulization 2.5 mg (3 mL) inhalation Q2H PRN PRN Dyspnea, wheezing #0 mL 01/31/23 [Rx Last Taken Unknown] menthol 0.44 %-zinc oxide 20.6 % topical ointment (Calmoseptine) 1 applic topical BID #0 grams 01/31/23 [Rx Last Taken Unknown] pramipexole 0.25 mg tablet 0.25 mg PO QHS #0 tabs 01/31/23 [Rx Last Taken Unknown] ascorbic acid (vitamin C) 500 mg tablet 500 mg PO BIDCM 30 days #60 tabs 05/06/23 [Rx Last Taken Unknown] ertapenem 1 gram solution for injection 1 g IV Q24 7 days #7 ea 05/06/23 [Rx Last Taken Unknown] albuterol sulfate 90 mcg/actuation aerosol inhaler 2 puff inhalation Q6H PRN shortness of breath or wheezing 09/03/23 [History Last Taken Unknown] clotrimazole 1 % topical cream (Antifungal (clotrimazole)) 1 applic topical BID 09/03/23 [History Last Taken Unknown] cranberry 400 mg capsule 400 mg PO DAILY 09/03/23 [History Last Taken Unknown] glucagon 1 mg solution for injection 1 mg subcut Q20M PRN hypoglycemia 09/03/23 [History Last Taken Unknown] insulin aspart U-100 100 unit/mL (3 mL) subcutaneous pen (Novolog FlexPen U-100 Insulin aspart) 1 sliding scale dose subcut USEASDIRECTD 09/03/23 [History Last Taken Unknown] lactase 3,000 unit tablet 3,000 unit PO ONCE 09/03/23 [History Last Taken Unknown] loperamide 2 mg capsule (Imodium A-D) 2 mg PO Q6H PRN loose stool 09/03/23 [History Last Taken Unknown] magnesium hydroxide 400 mg/5 mL oral suspension (Milk of Magnesia) 5 ml PO DAILY PRN 09/03/23 [History Last Taken Unknown] oxycodone 10 mg tablet 10 mg PO Q6H PRN pain 09/03/23 [History Last Taken Unknown] ropinirole 0.5 mg tablet 0.5 mg PO DAILY 09/03/23 [History Last Taken Unknown] sitagliptin 100 mg tablet 100 mg PO DAILY 09/03/23 [History Last Taken Unknown] vibegron 75 mg tablet 75 mg PO DAILY 09/03/23 [History Last Taken Unknown] diltiazem HCl 360 mg capsule,extended release 24 hr 360 mg PO DAILY 10/20/23 [History Last Taken Unknown] insulin aspart U-100 100 unit/mL subcutaneous solution See Protocol subcut 10/20/23 [History Last Taken Unknown] metformin 1,000 mg tablet 1,000 mg PO DAILY 10/20/23 [History Last Taken Unknown] metformin 500 mg tablet 500 mg PO QHS 10/20/23 [History Last Taken Unknown] modafinil 200 mg tablet 200 mg PO DAILY 10/20/23 [History Last Taken Unknown] nitrofurantoin monohydrate/macrocrystals 100 mg capsule (Macrobid) 100 mg PO Q12H 7 days #14 caps 10/20/23 [Rx Last Taken Unknown] Allergy/AdvReac Type Severity Reaction Status Date / Time aspirin Allergy Severe Hives Verified 10/20/23 20:37 Penicillins Allergy Severe Anaphylaxis Verified 10/20/23 20:37 Sulfa (Sulfonamide Allergy Severe Anaphylaxis Verified 10/20/23 20:37 Antibiotics) latex Allergy Rash Verified 10/20/23 20:37 Family History Mother Heart disease Cancer pancreatic Father Heart disease CVA (cerebral vascular accident) Hypertension Cancer liver, lung Surgical History History of appendectomy History of cardiac catheterization History of cholecystectomy History of ERCP History of hysterectomy History of thyroidectomy Hx of dilation and curettage Hx of toe surgery S/P laparoscopic cholecystectomy Social History housing: long-term Smoking Status: Never smoker alcohol intake: never substance use type: does not use additional social history: currently residing at [facility] ROS ROS ED ROS Narrative Fever. Review of Systems ROS Unobtainable: Denies due to encephalopathy or other Constitutional Constitutional ED: Reports fever(s); Denies chills Eyes Eyes: Denies blurry vision or change in vision ENT ENT ED: Denies ear pain, rhinorrhea or sore throat Cardiovascular Cardiovascular: Denies chest pain, palpitations or racing heartbeat Respiratory/Chest Respiratory/Chest: Denies cough, dyspnea or dyspnea on exertion Gastrointestinal Gastrointestinal: Reports nausea; Denies abdominal pain, constipation, diarrhea, melena or vomiting Genitourinary Genitourinary ED: Denies dysuria or hematuria Musculoskeletal Musculoskeletal: Denies arthralgias, back pain, myalgias or neck pain Integumentary Denies abscess, Abrasions or rash Neurologic Neurologic: Denies headache(s) Psychiatric Psychiatric: Denies anxiety, depression, suicidal ideation or suicidal thoughts Endocrine Endocrinology: Denies cold intolerance, heat intolerance, polydipsia, polyphagia or polyuria Hematologic/Lymphatic Hematologic/Lymphatic: Reports none Allergic/Immunologic Allergic/Immunologic ED: Denies mouth swelling, tongue swelling or urticaria EXAM Physical Exam Narrative Exam Narrative: 73-year-old female vital signs are stable afebrile. Pulse ox 94% on room air no hypoxia. H EENT exam unremarkable. Neck nontender. Lungs clear to auscultation bilaterally. Heart regular rhythm no murmur. Chest wall nontender. Abdomen soft nontender. Moving all 4 extremities. Calves nontender without edema or cords. Neurologically patient is awake alert no focal motor deficits. Answering questions following commands. Benign exam. Const Vital Signs: 10/20/23 20:28 10/20/23 20:34 10/20/23 21:15 Temperature 98.9 F 98.9 F Temperature Source Temporal Temporal Pulse Rate 99 97 Respiratory Rate 16 18 Respiratory Effort Normal Respiratory Pattern Normal Blood Pressure 112/55 L 112/55 L Blood Pressure Mean 74 74 Pulse Ox 93 94 Oxygen Delivery Method Room Air Room Air Oxygen Flow Rate (L/min) 10/20/23 21:17 10/20/23 22:00 Temperature 99.1 F 98.7 F Temperature Source Oral Oral Pulse Rate 93 94 Respiratory Rate 17 22 H Respiratory Effort Respiratory Pattern Blood Pressure 133/56 H 135/60 H Blood Pressure Mean 81 85 Pulse Ox 95 96 Oxygen Delivery Method Nasal Cannula Oxygen Flow Rate (L/min) 2 2 Positive well nourished and well developed; Negative for cachectic, contractures or unkempt General Appearance ED: well developed and NAD; Negative for unkempt, cachectic, contractures, cyanotic, diaphoretic or pallor Nutritional Appearance: Negative for cachectic HEENT Reports moist mucous membranes; Denies dry mucous membranes or other Negative for trauma, tenderness or other Mouth ED: No dry mucous membranes Mouth: No dry mucous membranes Eyes PERRL and EOMs intact bilaterally General Eye ED: Negative for pale conjunctiva or scleral icterus Neck no lymphadenopathy, supple and no JVD General: Negative for tenderness Lymph Lymphatic: Negative for other Chest Wall inspection of chest normal and palpation of chest normal Chest: Negative for other Resp normal respiratory effort and clear to auscultation bilaterally Effort and Inspection: Negative for retractions Auscultation: Negative for rales, rhonchi, wheezes or diminished lung sounds Cardio regular rate, regular rhythm, S1 normal heart sound, S2 normal heart sound and no murmurs Rate: Negative for bradycardia or tachycardic GI normal to inspection, nondistended, normoactive bowel sounds, non-tender, non-distended and no masses Auscultation: normoactive bowel sounds Palpation: soft; Negative for tender, guarding or rebound tenderness present Back/Spine no CVA tenderness General Back: Negative for CVA tenderness Cervical Spine: Negative for cervical spine tenderness Thoracic Spine / Upper Back: Negative for thoracic spinal tenderness or paraspinal muscle tenderness Lumbar Spine / Lower Back: Negative for lumbar spinal tenderness Extremity normal to inspection General Extremety ED: Negative for edema or tenderness General Extremity: Negative for edema Neuro oriented x3 and CN's II-XII intact bilaterally Sensorium / Orientation: alert; Negative for orientation impaired, lethargic or stuporous Motor Exam: strength 5/5 throughout; Negative for general weakness or strength abnormal Psych mental status grossly normal Appearance: Negative for unkempt Attitude: No agitated Mood & Affect: Negative for depressed, anxious or tearful Skin no rashes or lesions noted and no wounds General Skin Exam: Negative for jaundice or pallor Lesions: No lesion noted MDM MDM MDM Narrative Medical decision making narrative: 73-year-old female from the long-term sent in for possible UTI. Exam benign. Repeat exam patient is doing well at 10:45 PM. Resting comfortably. Vital signs are stable. She denies discussed her test results. She does have a urinary tract infection. Will send for urine culture. I reviewed her last urine culture and it was sensitive to Macrobid. Plus other antibiotics. She will be started on Macrobid here and placed on it 1 pill twice a day for a week. I will speak to the long-term prior to discharge. History & Record Review Discussion w/independent historian: EMS personnel and Patient Additional record(s) reviewed:: Prior inpatient record, Prior outpatient record, Prior ED visit and Prior labs Lab Data Attestation: I reviewed the patient's lab results. Lab results narrative: CBC shows a white count 9. H&H 11.3 and 34.3 which is her baseline. Platelets of 104. Electrolytes show gap 9. BUN 23 creatinine 0.89. Glucose 15 2. Lactic acid normal at 1.2. Liver enzymes unremarkable. UA shows positive nitrates. Greater than 100 white blood cells. 2+ bacteria. Treat as UTI. Sent for urine culture. Labs: Laboratory Results - last 24 hr 10/20/23 10/20/23 10/20/23 20:55 21:05 21:20 WBC 9.0 RBC 4.04 L Hgb 11.3 L Hct 34.3 L MCV 84.9 MCH 28.0 MCHC 32.9 RDW Std Deviation 44.5 H RDW Coeff of Melissa 14.4 Plt Count 104 L MPV 10.9 Immature Gran % (Auto) 0.400 Neut % (Auto) 75.1 H Lymph % (Auto) 12.3 L Garvin % (Auto) 11.8 H Eos % (Auto) 0.3 Baso % (Auto) 0.1 Absolute Neuts (auto) 6.7 Absolute Lymphs (auto) 1.11 Nucleated RBC % 0 Sodium 136 Potassium 3.8 Chloride 101 Carbon Dioxide 26.0 Anion Gap 9 BUN 23 H Creatinine 0.89 Estim Creat Clear Calc 57.82 Est GFR (MDRD) Af Amer 80 Est GFR (MDRD) Non-Af 66 BUN/Creatinine Ratio 26.0 H Glucose 152 H Lactic Acid 1.2 Calcium 8.7 Total Bilirubin 0.60 AST 14 L ALT 17 Alkaline Phosphatase 130 H Total Protein 6.4 Albumin 2.7 L Globulin 3.7 Albumin/Globulin Ratio 0.7 L Urine Color Yellow Urine Clarity Sl. Cloudy Urine pH 5.0 Ur Specific [employer] 1.015 Urine Protein 30 H Urine Glucose (UA) Normal Urine Ketones 5 H Urine Occult Blood 50 H Urine Nitrite Positive H Urine Bilirubin Negative Urine Urobilinogen Normal Ur Leukocyte Esterase 500 H Urine RBC 0 SEEN Urine WBC >100 SEEN Ur Squamous Epith Cells 0 SEEN Urine Bacteria 2+ Urine Mucus 0 SEEN Radiography Chest X-Ray - ED: 1 View and Read by ED Physician Diagnostic Testing: Clinical Impression(s) from Imaging Studies Chest X-Ray 10/20/23 21:22 IMPRESSION: No active disease. Electronically Signed: Everett Raman MD at 22:38 EDT , Rhythm Strip Rhythm Strip: Sinus Rhythm Rate: 95 Ectopy: None EKG Initial EKG: Attestation: I personally reviewed and interpreted this EKG as follows: Interpretation: Sinus Rhythm and No Acute Injury Pattern Comments: Normal sinus rhythm rate of 95 no acute signs of LA or ischemia. Discharge Plan Triage Chief Complaint: Dizziness ED Provider: Diego Castillo Dx/Rx/DC Orders Clinical Impression: Urinary tract infection, History of chronic kidney disease, Chronic anticoagulation, History of atrial fibrillation, History of diabetes mellitus Instructions: Urinary Tract Infections in Women Prescriptions: New nitrofurantoin monohyd/m-cryst [Macrobid] 100 mg capsule 100 mg PO Q12H 7 Days Qty: 14 0RF Rx Instructions: must administer with a meal/food No Action albuterol sulfate 90 mcg/actuation HFA aerosol inhaler 2 puff inhalation Q6H PRN (Reason: shortness of breath or wheezing) clotrimazole [Antifungal (clotrimazole)] 1 % cream 1 applic topical BID cranberry 400 mg capsule 400 mg PO DAILY Rx Instructions: administer with a meal vibegron 75 mg tablet 75 mg PO DAILY glucagon 1 mg recon soln 1 mg subcut Q20M PRN (Reason: hypoglycemia) Rx Instructions: until target blood sugar attained loperamide [Imodium A-D] 2 mg capsule 2 mg PO Q6H PRN (Reason: loose stool) lactase 3,000 unit tablet 3,000 unit PO ONCE Rx Instructions: administer with meals and/or snacks magnesium hydroxide [Milk of Magnesia] 400 mg/5 mL suspension 5 ml PO DAILY PRN insulin aspart U-100 [Novolog FlexPen U-100 Insulin] 100 unit/mL (3 mL) insulin pen 1 sliding scale dose subcut USEASDIRECTD oxycodone 10 mg tablet 10 mg PO Q6H PRN (Reason: pain) ropinirole 0.5 mg tablet 0.5 mg PO DAILY sitagliptin 100 mg tablet 100 mg PO DAILY fluticasone propionate 1 SPRAY spray,suspension 1 spray NASAL QHS omeprazole 40 mg Capsule,Delayed Release(Dr/Ec) 40 mg PO DAILY multivitamin Tablet 1 tab PO DAILY acetaminophen 325 mg Tablet 650 mg PO Q4H PRN (Reason: Pain) bisacodyl 10 mg Suppository 10 mg OH DAILY PRN (Reason: Constipation) Xarelto 15 mg Tablet 15 mg PO DINNER 30 Days Qty: 0 0RF Hold Instructions: until platelet count above 100,000 atorvastatin [Lipitor] 10 mg Tablet 10 mg PO QHS meclizine 25 mg Tablet 25 mg PO TID PRN (Reason: Vertigo) pramipexole [Mirapex] 0.25 mg Tablet 0.25 mg PO QHS pregabalin 50 mg Capsule 100 mg PO TID Arnuity Ellipta 100 mcg/actuation blister with device 1 inh INHALATION QHS methenamine hippurate 1 gram tablet 1 g PO BID sennosides-docusate sodium [Stool Softener-Stimulant Laxat] 8.6-50 mg Tablet 2 tab PO BID PRN PRN (Reason: Constipation) Qty: 0 0RF spironolactone 25 mg tablet 25 mg PO DAILY 30 Days Qty: 0 0RF ferrous sulfate [iron] 325 mg (65 mg iron) Tablet 325 mg PO QODAY 30 Days Qty: 0 0RF furosemide 20 mg tablet 40 mg PO DAILY 30 Days Qty: 0 0RF Rx Instructions: Hold if creatinine jumps more than 30% than baseline. insulin glargine [Basaglar KwikPen U-100 Insulin] 100 unit/mL (3 mL) insulin pen 12 unit SUBCUT QHS albuterol sulfate 2.5 mg /3 mL (0.083 %) Solution For Nebulization 2.5 mg inhalation Q2H PRN PRN (Reason: Dyspnea, wheezing) Qty: 0 0RF pramipexole 0.25 mg Tablet 0.25 mg PO QHS Qty: 0 0RF menthol-zinc oxide [Calmoseptine] 0.44-20.6 % Ointment 1 applic topical BID Qty: 0 0RF Protocol: *Topical Application Instructions APPLICATION INSTRUCTIONS: coccyx ascorbic acid (vitamin C) 500 mg Tablet 500 mg PO BIDCM 30 Days Qty: 60 2RF ertapenem 1 gram Recon Soln 1 g IV Q24 7 Days Qty: 7 0RF Rx Instructions: dx: ESBL bacteremia diltiazem HCl 360 mg capsule,extended release 24hr 360 mg PO DAILY metformin 500 mg tablet 500 mg PO QHS metformin 1,000 mg tablet 1,000 mg PO DAILY insulin aspart U-100 100 unit/mL solution See Protocol subcut Protocol: 6. Sliding Scale Insulin Custom Condition: 80-200 Dose/Route: 2 Condition: 201-250 Dose/Route: 3 Condition: 251-300 Dose/Route: 4 Condition: 301-350 Dose/Route: 5 Condition: 351-400 Dose/Route: 6 Condition: 401-450 Dose/Route: 7 Condition: >451 Instruction: call doctor Protocol Text: Custom Sliding Scale modafinil 200 mg tablet 200 mg PO DAILY Primary Care Provider: Rosa Silva Referrals: Rosa Silva MD [Primary Care Provider] - 1-2 Days if not improving Activity Restrictions/Additional Instructions: She has a urinary tract infection. We sent a urine culture. She will be started on antibiotic Macrobid 1 pill twice a day for a week. First dose given in the ER. Follow-up with your primary care physician next several days to ensure she is improving. Plenty of fluids and rest. Return to the emergency department if getting worse. Disposition Disposition: Home, Self Care
[2023-10-20 21:01] LABS: Absolute Lymphocyte Count 1.11 X10^3/uL (0.83-4.51); Absolute Neutrophil Count 6.7 X10^3/uL (2.0-7.7); Basophil# 0.01 X10^3/uL; Basophil% 0.1 % (0-1); Eosinophil# 0.03 X10^3/uL; Eosinophils% 0.3 % (0-5); Hematocrit 34.3 % (37-47); Hemoglobin 11.3 g/dL (12.0-15.0); Lymphocyte # 1.11 X10^3/ul (0.83-4.51); Lymphocyte % 12.3 % (19-41); Mean Corp Hgb Conc 32.9 g/dL (32-36); Mean Corpuscular Volume 84.9 fL (81-99); Mean Platelet Vol. 10.9 fl (6.2-12.0); Monocyte# 1.06 X10^3/uL; Monocyte% 11.8 % (0-10); NRBC Flagged by Analyzer 0 % (0-5); Neutrophil # 6.74 X10^3/uL (2.7-7.7); Neutrophil % 75.1 % (47-70); Platelet Count 104 K/mm3 (150-450); RBC Distribution Width CV 14.4 % (11.6-14.6); RBC Distribution Width SD 44.5 fl (35.1-43.9); Red Blood Count 4.04 M/mm3 (4.2-5.4)
[2023-10-20 21:17] VITALS: BP 133/56; PULSE 93; RESP 17; TEMP 37.3; O2SAT 95
[2023-10-20 21:17] LABS: ALB/GLOB Ratio 0.7 RATIO (0.9-2.4); AST(SGOT) 14 U/L (15-37); Alanine Aminotransfer ALT/SGPT 17 U/L (13-56); Albumin, Serum 2.7 g/dL (3.2-5.0); Alkaline Phosphatase 130 U/L (45-117); Anion Gap 9 (5-15); BUN 23 mg/dL (7-18); Calcium,Total 8.7 mg/dL (8.5-10.1); Chloride 101 mmol/L (98-107); Creatinine, Serum 0.89 mg/dL (0.55-1.02); EST Glomerular Filtration Rate 66 mL/min (>60); Est Glom Filt Rate - Afr Amer 80 mL/min (>60); Estimated Creatinine Clearance 57.82 ml/min; Globulin 3.7 g/dL (2.2-4.2); Glucose 152 mg/dL (74-106); Potassium 3.8 mmol/L (3.5-5.1); Protein, Total 6.4 g/dL (6.4-8.2); Sodium Level 136 mmol/L (136-145)
--- NOTE | 2023-10-20 21:22 | RAD_ITS ---
STUDY: X-RAY CHEST REASON FOR EXAM: Female, 73 years old. cough TECHNIQUE: Single AP portable view of the chest. COMPARISON: 05/03/2023 FINDINGS: The lungs are clear and expanded. There is no demonstrated pleural abnormality. Normal size heart. Normal mediastinum and leda. Normal visualized pulmonary arteries. Normal visualized aortic arch and descending thoracic aorta. There is a dextroscoliosis of the thoracic spine. Normal visualized ribs, clavicles, and shoulders. There is no demonstrated abnormality of the visualized soft tissue structures of the upper abdomen. RAD/Chest 1 View (Portable) IMPRESSION: No active disease. Electronically Signed: Everett Raman MD at 22:38 EDT ,
[2023-10-20 21:27] LABS: Mucous, Urine 0 SEEN /hpf (<or=2+); Red Blood Cells-Urine 0 SEEN /hpf (0-5); Squamous Epithelial Cells - UA 0 SEEN /hpf (5-10)
[2023-10-20 21:38] LABS: Color, Urine Yellow (Yellow); Glucose, Dipstick Normal (Normal); Ketone-Dipstick 5 mg/dl (Negative); Leukocyte Esterase-Dipstick 500 /ul (Negative); Nitrite-Dipstick Positive (Negative); Occult Blood-Urine 50 /ul (Negative); Protein-Dipstick 30 mg/dl (Negative); Specific Gravity, Urine 1.015 (1.002-1.030); Urine Bilirubin Dipstick Negative (Negative); Urine Clarity Sl. Cloudy (Clear); Urine Urobilinogen Normal (Normal)
[2023-10-20 21:50] LABS: White Blood Cells >100 SEEN /hpf (0-5)
[2023-10-20 21:51] LABS: Bacteria 2+ /hpf (None Seen)
[2023-10-20 21:53] LABS: Lactic Acid 1.2 mmol/L (0.4-1.9)
[2023-10-20 22:00] VITALS: BP 135/60; PULSE 94; RESP 22; TEMP 37.1; O2SAT 96
[2023-10-20 23:00] VITALS: BP 137/58; PULSE 99; RESP 19; TEMP 35.9; O2SAT 98
[2023-10-20 23:06] VITALS: BP 137/58; PULSE 92; RESP 22; TEMP 35.9; O2SAT 98
[2023-10-20] MEDS: Nitrofurantoin Macrocrystals 100 MG Capsule PO (23:08)
== END 2023-10-20 23:58 | disposition home or self-care (01) ==
PROVIDERS: Emergency Provider Emergency Medicine; PCP Internal Medicine; Visit Provider Emergency Medicine
DX: N39.0 Urinary tract infection, site not specified (principal); I13.0 Hypertensive heart and chronic kidney disease with heart failure and stage 1 through stage 4 chronic kidney disease, or unspecified chronic kidney disease; I50.9 Heart failure, unspecified; J44.9 Chronic obstructive pulmonary disease, unspecified; I48.0 Paroxysmal atrial fibrillation; E11.22 Type 2 diabetes mellitus with diabetic chronic kidney disease; Z79.4 Long term (current) use of insulin; E11.42 Type 2 diabetes mellitus with diabetic polyneuropathy; N18.32 Chronic kidney disease, stage 3b; R05.9 Cough, unspecified; R11.0 Nausea; R42 Dizziness and giddiness; Z11.52 Encounter for screening for COVID-19; Z79.01 Long term (current) use of anticoagulants; Z79.84 Long term (current) use of oral hypoglycemic drugs; Z79.899 Other long term (current) drug therapy; Z99.81 Dependence on supplemental oxygen
CPT/HCPCS: 71045; 80053; 81001; 83605; 85025; 87077; 87086; 87088; 87186; 87631; 93005; 99284; P9612; A4216

== ENCOUNTER → 2023-10-21 | Outpatient (REF) | payer MEDICARE, MEDICAID, SELFPAY ==
[2023-10-21 09:16] LABS: Hematocrit 35.8 % (37-47); Hemoglobin 11.4 g/dL (12.0-15.0); Mean Corp Hgb Conc 31.8 g/dL (32-36); Mean Corpuscular Hgb 27.7 pg (27.0-32.0); Mean Corpuscular Volume 86.9 fL (81-99); Mean Platelet Vol. 11.8 fl (6.2-12.0); Platelet Count 103 K/mm3 (150-450); RBC Distribution Width CV 14.5 % (11.6-14.6); RBC Distribution Width SD 46.3 fl (35.1-43.9); Red Blood Count 4.12 M/mm3 (4.2-5.4); White Blood Count 7.4 K/mm3 (4.4-11.0)
[2023-10-21 09:53] LABS: Anion Gap 7 (5-15); BUN 17 mg/dL (7-18); BUN/Creat Ratio 28.2 RATIO (10-20); Calcium,Total 9.3 mg/dL (8.5-10.1); Chloride 102 mmol/L (98-107); EST Glomerular Filtration Rate 103 mL/min (>60); Est Glom Filt Rate - Afr Amer 125 mL/min (>60); Glucose 118 mg/dL (74-106); Potassium 3.7 mmol/L (3.5-5.1); Sodium Level 138 mmol/L (136-145)
== END ==
LOC: OLS.SW 05:00
PROVIDERS: PCP Internal Medicine; Visit Provider Internal Medicine
DX: D64.9 Anemia, unspecified (principal); D69.6 Thrombocytopenia, unspecified; I48.0 Paroxysmal atrial fibrillation
CPT/HCPCS: 36415; 80048; 83735; 85027

== ENCOUNTER → 2023-10-28 | Outpatient (REF) | payer MEDICARE, MEDICAID, SELFPAY ==
[2023-10-28 08:47] LABS: Hematocrit 33.7 % (37-47); Hemoglobin 10.9 g/dL (12.0-15.0); Mean Corp Hgb Conc 32.3 g/dL (32-36); Mean Corpuscular Hgb 27.5 pg (27.0-32.0); Mean Corpuscular Volume 84.9 fL (81-99); Mean Platelet Vol. 11.3 fl (6.2-12.0); Platelet Count 147 K/mm3 (150-450); RBC Distribution Width CV 13.7 % (11.6-14.6); RBC Distribution Width SD 42.1 fl (35.1-43.9); Red Blood Count 3.97 M/mm3 (4.2-5.4); White Blood Count 4.3 K/mm3 (4.4-11.0)
[2023-10-28 09:21] LABS: Anion Gap 4 (5-15); BUN 23 mg/dL (7-18); BUN/Creat Ratio 37.6 RATIO (10-20); Calcium,Total 9.1 mg/dL (8.5-10.1); Chloride 108 mmol/L (98-107); Creatinine, Serum 0.61 mg/dL (0.55-1.02); EST Glomerular Filtration Rate 101 mL/min (>60); Est Glom Filt Rate - Afr Amer 122 mL/min (>60); Glucose 103 mg/dL (74-106); Potassium 3.8 mmol/L (3.5-5.1); Sodium Level 141 mmol/L (136-145)
== END ==
LOC: OLS.SW 04:00
PROVIDERS: PCP Internal Medicine; Referring Provider Internal Medicine; Visit Provider Internal Medicine
DX: I48.91 Unspecified atrial fibrillation (principal); D64.9 Anemia, unspecified
CPT/HCPCS: 36415; 80048; 85027

== ENCOUNTER → 2023-11-04 | Outpatient (REF) | payer MEDICARE, MEDICAID, SELFPAY ==
[2023-11-04 09:02] LABS: Hematocrit 33.1 % (37-47); Hemoglobin 10.6 g/dL (12.0-15.0); Mean Corpuscular Hgb 27.7 pg (27.0-32.0); Mean Corpuscular Volume 86.4 fL (81-99); Mean Platelet Vol. 11.1 fl (6.2-12.0); Platelet Count 102 K/mm3 (150-450); RBC Distribution Width CV 14.6 % (11.6-14.6); RBC Distribution Width SD 45.7 fl (35.1-43.9); Red Blood Count 3.83 M/mm3 (4.2-5.4); White Blood Count 4.1 K/mm3 (4.4-11.0)
[2023-11-04 09:24] LABS: Anion Gap 7 (5-15); BUN 31 mg/dL (7-18); BUN/Creat Ratio 48.1 RATIO (10-20); Chloride 105 mmol/L (98-107); Creatinine, Serum 0.64 mg/dL (0.55-1.02); EST Glomerular Filtration Rate 95 mL/min (>60); Est Glom Filt Rate - Afr Amer 115 mL/min (>60); Glucose 122 mg/dL (74-106); Magnesium 1.9 mg/dL (1.6-2.6); Potassium 3.6 mmol/L (3.5-5.1); Sodium Level 141 mmol/L (136-145)
== END ==
LOC: OLS.SW 05:00
PROVIDERS: PCP Internal Medicine; Visit Provider Internal Medicine
DX: I48.91 Unspecified atrial fibrillation (principal); D64.9 Anemia, unspecified; N18.9 Chronic kidney disease, unspecified
CPT/HCPCS: 36415; 80048; 83735; 85027

== ENCOUNTER → 2023-11-11 04:00 | Outpatient (REF) | payer MEDICARE, MEDICAID, SELFPAY ==
[2023-11-11 09:15] LABS: Hematocrit 37.9 % (37-47); Hemoglobin 12.3 g/dL (12.0-15.0); Mean Corp Hgb Conc 32.5 g/dL (32-36); Mean Corpuscular Hgb 27.8 pg (27.0-32.0); Mean Corpuscular Volume 85.6 fL (81-99); Mean Platelet Vol. 11.7 fl (6.2-12.0); Platelet Count 106 K/mm3 (150-450); RBC Distribution Width CV 14.8 % (11.6-14.6); RBC Distribution Width SD 45.7 fl (35.1-43.9); Red Blood Count 4.43 M/mm3 (4.2-5.4); White Blood Count 5.1 K/mm3 (4.4-11.0)
[2023-11-11 09:51] LABS: Anion Gap 6 (5-15); BUN 23 mg/dL (7-18); BUN/Creat Ratio 35.5 RATIO (10-20); Calcium,Total 9.6 mg/dL (8.5-10.1); Chloride 105 mmol/L (98-107); Creatinine, Serum 0.65 mg/dL (0.55-1.02); EST Glomerular Filtration Rate 95 mL/min (>60); Est Glom Filt Rate - Afr Amer 115 mL/min (>60); Glucose 120 mg/dL (74-106); Potassium 3.8 mmol/L (3.5-5.1); Sodium Level 139 mmol/L (136-145)
== END ==
LOC: OLS.SW 04:00
PROVIDERS: PCP Internal Medicine; Referring Provider Internal Medicine; Visit Provider Internal Medicine
DX: D64.9 Anemia, unspecified (principal)
CPT/HCPCS: 36415; 80048; 83735; 85027

== ENCOUNTER → 2023-11-18 | Outpatient (REF) | payer MEDICARE, MEDICAID, SELFPAY ==
[2023-11-18 09:29] LABS: Hematocrit 33.5 % (37-47); Mean Corp Hgb Conc 32.8 g/dL (32-36); Mean Corpuscular Hgb 28.4 pg (27.0-32.0); Mean Corpuscular Volume 86.3 fL (81-99); POSITIVE COUNT YES; Platelet Count 79 K/mm3 (150-450); RBC Distribution Width CV 15.3 % (11.6-14.6); RBC Distribution Width SD 47.8 fl (35.1-43.9); Red Blood Count 3.88 M/mm3 (4.2-5.4); White Blood Count 4.1 K/mm3 (4.4-11.0)
[2023-11-18 09:30] LABS: Scan Indicated on CBC? Y/N YES- FLAGS NOTED
[2023-11-18 10:04] LABS: Anion Gap 5 (5-15); BUN 22 mg/dL (7-18); BUN/Creat Ratio 36.4 RATIO (10-20); Chloride 107 mmol/L (98-107); EST Glomerular Filtration Rate 103 mL/min (>60); Est Glom Filt Rate - Afr Amer 124 mL/min (>60); Glucose 93 mg/dL (74-106); Potassium 3.7 mmol/L (3.5-5.1); Sodium Level 140 mmol/L (136-145)
== END ==
LOC: OLS.SW 05:00
PROVIDERS: PCP Internal Medicine; Visit Provider Internal Medicine
DX: D64.9 Anemia, unspecified (principal); I48.0 Paroxysmal atrial fibrillation
CPT/HCPCS: 36415; 80048; 83735; 85027

== ENCOUNTER 2023-11-21 11:12 | Inpatient (IN) | payer MEDICARE, MEDICAID, SELFPAY ==
[2023-11-21] VITALS (23 sets, daily range): BP systolic 90–196; BP diastolic 55–101; PULSE 95–150; RESP 14–32; TEMP 37.2–38.4; O2SAT 85–98; BMI 42.7
--- NOTE | 2023-11-21 11:45 | EKG12_ITS ---
Test Reason : SOB Blood Pressure : / mmHG Vent. Rate : 131 BPM Atrial Rate : 131 BPM P-R Int : 182 ms QRS Dur : 090 ms QT Int : 256 ms P-R-T Axes : 046 028 030 degrees QTc Int : 378 ms Sinus tachycardia Septal infarct (cited on or before 20-OCT-2023) Abnormal ECG Confirmed by CADE SNYDER, BAR ([id number]), video tape editor BETHEL GAVIRIA ([id number]) on 11/25/2023 10:25:44 AM Referred By: ALEC/PATRICIO Confirmed By:SHANI MOHAMUD MD
--- NOTE | 2023-11-21 11:48 | EX.ED.DYSGE1 ---
HPI History of Present Illness Chief Complaint: Shortness of Breath Informant: EMS and SNF Narrative Narrative: 73-year-old female presenting to the emergency room with a chief complaint of dyspnea coughing. Patient was speaking for nursing but for me I am only getting garbled speech as she is sleeping and try to wake her up. Reportedly has a history of thyroid cancer is currently getting radiation. Reported that her last radiation treatment was Saturday yesterday. Was noted to have a cough today and shortness of breath. She has as needed oxygen but typically does not wear it. She wears CPAP at night. Was noted by nursing to have fever here in the department. She is on Xarelto. [facility] Medical History Acute ITP Anemia Anxiety and depression Arthritis Asthma Atrial fibrillation Back pain Benign hypertension Bilateral lower extremity edema BiPAP (biphasic positive airway pressure) dependence Cellulitis Cellulitis of left foot Cholelithiasis Chronic acquired lymphedema Chronic back pain Chronic kidney disease, stage 3b Chronic malnutrition Chronic pain Chronic stasis dermatitis of left lower extremity Congestive heart failure (CHF) COPD (chronic obstructive pulmonary disease) Decreased pedal pulses Depression Diabetes Diabetic ulcer of left foot Diabetic ulcer of right foot Diabetic ulcer of toe of left foot Dialysis patient DVT (deep venous thrombosis) Elephantiasis GERD (gastroesophageal reflux disease) Hammertoe of left foot Hammertoe of left foot Heartburn High cholesterol History of edema History of kidney stones History of pain when walking History of stress test HLD (hyperlipidemia) Hoarseness Hypertension Hypertensive chronic kidney disease with stage 1 through stage 4 chronic kidney disease, or unspecified chronic kidney disease Hypokalemia Increased BMI Insulin dependent diabetes mellitus Leg cramps Localized edema MRSA infection Non-smoker Nonhealing ulcer of left lower extremity with fat layer exposed Nonhealing ulcer of right lower extremity with fat layer exposed snf resident Obstructive sleep apnea (adult) (pediatric) On home oxygen therapy Osteoporosis PAF (paroxysmal atrial fibrillation) Peripheral neuropathy Renal lithiasis Rheumatic fever Rheumatoid arthritis RLS (restless legs syndrome) Seasonal allergies Shortness of breath on exertion Sleep apnea Tachycardia Thyroid nodule Type 2 diabetes mellitus with diabetic polyneuropathy Ulcer of left foot with fat layer exposed Ulcer of right foot with fat layer exposed Venous insufficiency Venous stasis ulcer of right thigh with fat layer exposed Venous ulcer of left lower extremity with varicose veins Home Medications fluticasone propionate 50 mcg/actuation nasal spray,suspension 1 spray QHS allergies 02/16/14 [History Last Taken 11/20/23] acetaminophen 325 mg tablet 650 mg PO Q4H PRN Pain 09/09/21 [History Last Taken 10/08/22] bisacodyl 10 mg rectal suppository 10 mg NM DAILY PRN Constipation 09/09/21 [History Last Taken Unknown] multivitamin 1 tab PO DAILY supplement 09/09/21 [History Last Taken 12/23/22] omeprazole 40 mg capsule,delayed release 40 mg PO DAILY gerd 09/09/21 [History Last Taken 12/23/22] atorvastatin 10 mg tablet (Lipitor) 10 mg PO QHS cholesterol 09/09/22 [History Last Taken 11/20/23] meclizine 25 mg tablet 25 mg PO TID PRN Vertigo 09/09/22 [History Last Taken Unknown] fluticasone furoate 100 mcg/actuation blister powder for inhalation (Arnuity Ellipta) 1 inh inhalation QHS COPD 12/23/22 [History Last Taken 11/20/23] methenamine hippurate 1 gram tablet 1 g PO BID UTI 12/23/22 [History Last Taken 11/20/23] ferrous sulfate 325 mg (65 mg iron) tablet (iron) 325 mg PO QODAY supplement 30 days #0 tabs 12/27/22 [Rx Last Taken 11/20/23] sennosides 8.6 mg-docusate sodium 50 mg tablet (Stool Softener-Stimulant Laxative) 2 tab PO BID PRN PRN Constipation #0 tabs 12/27/22 [Rx Last Taken Unknown] spironolactone 25 mg tablet 25 mg PO DAILY diuretic 30 days #0 tabs 12/27/22 [Rx Last Taken 11/20/23] insulin glargine 100 unit/mL (3 mL) subcutaneous pen (Basaglar KwikPen U-100 Insulin) 12 unit subcut QHS diabetes 01/26/23 [History Last Taken 11/15/23] albuterol sulfate 2.5 mg/3 mL (0.083 %) solution for nebulization 2.5 mg (3 mL) inhalation Q2H PRN PRN Dyspnea, wheezing #0 mL 01/31/23 [Rx Last Taken 11/19/23] pramipexole 0.25 mg tablet 0.25 mg PO QHS #0 tabs 01/31/23 [Rx Last Taken 11/20/23] ascorbic acid (vitamin C) 500 mg tablet 500 mg PO BIDCM 30 days #60 tabs 05/06/23 [Rx Last Taken 11/20/23] albuterol sulfate 90 mcg/actuation aerosol inhaler 2 puff inhalation Q6H PRN shortness of breath or wheezing 09/03/23 [History Last Taken Unknown] cranberry 400 mg capsule 400 mg PO DAILY 09/03/23 [History Last Taken 11/20/23] glucagon 1 mg solution for injection 1 mg subcut Q20M PRN hypoglycemia 09/03/23 [History Last Taken Unknown] lactase 3,000 unit tablet 3,000 unit PO ONCE 09/03/23 [History Last Taken Unknown] loperamide 2 mg capsule (Imodium A-D) 2 mg PO Q6H PRN loose stool 09/03/23 [History Last Taken Unknown] magnesium hydroxide 400 mg/5 mL oral suspension (Milk of Magnesia) 30 ml PO Q4H PRN stomach upset 09/03/23 [History Last Taken Unknown] oxycodone 10 mg tablet 10 mg PO Q6H PRN pain 09/03/23 [History Last Taken 11/20/23] ropinirole 0.5 mg tablet 0.5 mg PO QHS 09/03/23 [History Last Taken 11/20/23] sitagliptin 100 mg tablet 100 mg PO DAILY 09/03/23 [History Last Taken 11/20/23] diltiazem HCl 360 mg capsule,extended release 24 hr 360 mg PO DAILY 10/20/23 [History Last Taken 11/20/23] insulin aspart U-100 100 unit/mL subcutaneous solution 1 sliding scale dose subcut 4X/DAY 10/20/23 [History Last Taken 11/21/23] metformin 1,000 mg tablet 1,000 mg PO DAILY 10/20/23 [History Last Taken 11/20/23] metformin 500 mg tablet 500 mg PO QHS 10/20/23 [History Last Taken 11/20/23] modafinil 200 mg tablet 200 mg PO DAILY 10/20/23 [History Last Taken Unknown] nitrofurantoin monohydrate/macrocrystals 100 mg capsule (Macrobid) 100 mg PO Q12H 7 days #14 caps 10/20/23 [Rx Last Taken 11/20/23] acetaminophen 650 mg rectal suppository 650 mg NM Q4H PRN pain 11/21/23 [History Last Taken 11/15/23] dextrose 40 % oral gel (Glucose Gel) 10 g PO PRN PRN hypoglycemia 11/21/23 [History Last Taken Unknown] docusate sodium 100 mg capsule (Colace) 100 mg PO BID 11/21/23 [History Last Taken 11/20/23] furosemide 40 mg tablet 40 mg PO DAILY 11/21/23 [History Last Taken Unknown] guaifenesin 100 mg/5 mL oral liquid (Adult Tussin Chest Congestion) 200 mg PO Q4H PRN congestion 11/21/23 [History Last Taken 11/20/23] lorazepam 0.5 mg tablet 0.5 mg PO MOTUWETHFR ANXIETY 11/21/23 [History Last Taken 11/21/23] mirabegron 50 mg tablet,extended release 24 hr (Myrbetriq) 100 mg PO DAILY 11/21/23 [History Last Taken 11/20/23] modafinil 100 mg tablet 100 mg PO 1200 11/21/23 [History Last Taken 11/20/23] nutrition tx glu intol,lac-free,soy-fiber 0.07 gram-0.8 kcal/mL liquid (Boost Glucose Control) 237 ml PO QHS 11/21/23 [History Last Taken 11/20/23] pregabalin 100 mg capsule 100 mg PO TID 11/21/23 [History Last Taken 11/20/23] rivaroxaban 10 mg tablet (Xarelto) 10 mg PO DAILY 11/21/23 [History Last Taken Unknown] sodium phosphates 19 gram-7 gram/118 mL enema (Enema) 118 ml NM DAILY PRN constipation 11/21/23 [History Last Taken Unknown] Allergy/AdvReac Type Severity Reaction Status Date / Time aspirin Allergy Severe Hives Verified 11/21/23 11:14 Penicillins Allergy Severe Anaphylaxis Verified 11/21/23 11:14 Sulfa (Sulfonamide Allergy Severe Anaphylaxis Verified 11/21/23 11:14 Antibiotics) latex Allergy Rash Verified 11/21/23 11:14 Family History Mother Heart disease Cancer pancreatic Father Heart disease CVA (cerebral vascular accident) Hypertension Cancer liver, lung Surgical History History of appendectomy History of cardiac catheterization History of cholecystectomy History of ERCP History of hysterectomy History of thyroidectomy Hx of dilation and curettage Hx of toe surgery S/P laparoscopic cholecystectomy Social History housing: snf Smoking Status: Never smoker alcohol intake: never substance use type: does not use additional social history: currently residing at [facility] ROS ROS ED Review of Systems ROS Unobtainable: due to mental status EXAM Physical Exam Const Vital Signs: 11/21/23 11:13 11/21/23 11:13 11/21/23 11:23 Temperature 101.1 F H Temperature Source Temporal Pulse Rate 129 H 131 H Respiratory Rate 18 19 H Respiratory Effort Short of Breath Labored Respiratory Pattern Blood Pressure 178/73 H 196/101 H Blood Pressure Mean 108 132 Pulse Ox 85 93 Oxygen Delivery Method Room Air Nasal Cannula Nasal Cannula Oxygen Flow Rate (L/min) 2 2 Fraction of Inspired Oxygen (FIO2) 11/21/23 11:59 11/21/23 12:17 11/21/23 13:15 Temperature 101.1 F H 99.2 F H Temperature Source Temporal Oral Pulse Rate 123 H 120 H Respiratory Rate 26 H 23 H Respiratory Effort Respiratory Pattern Blood Pressure 163/62 H 131/57 H Blood Pressure Mean 95 81 Pulse Ox 96 96 Oxygen Delivery Method Nasal Cannula Nasal Cannula Nasal Cannula Oxygen Flow Rate (L/min) 2 2 4 Fraction of Inspired Oxygen (FIO2) 11/21/23 14:00 11/21/23 15:00 11/21/23 15:26 Temperature 99.0 F 100.1 F H Temperature Source Oral Axillary Pulse Rate 116 H 115 H 150 H Respiratory Rate 22 H 22 H 30 H Respiratory Effort Respiratory Pattern Tachypnea Blood Pressure 155/60 H 114/94 H Blood Pressure Mean 91 100 Pulse Ox 96 95 95 Oxygen Delivery Method Nasal Cannula Nasal Cannula Oxygen Flow Rate (L/min) 4 4 Fraction of Inspired Oxygen (FIO2) 100 11/21/23 16:00 11/21/23 15:59 Temperature 99.7 F H Temperature Source Axillary Pulse Rate 127 H 134 H Respiratory Rate 14 Respiratory Effort Respiratory Pattern Blood Pressure 184/89 H Blood Pressure Mean 120 Pulse Ox 90 93 Oxygen Delivery Method Mechanical Ventilator Oxygen Flow Rate (L/min) Fraction of Inspired Oxygen (FIO2) 80 Positive well nourished, well developed and obese General Appearance ED: well developed Nutritional Appearance: obese HEENT Reports normocephalic, head/scalp atraumatic and moist mucous membranes HEENT Narrative: Fullness in the anterior neck. Not drooling. Eyes PERRL and EOMs intact bilaterally Neck no lymphadenopathy, supple and no JVD Resp Resp Narrative: Patient appears slightly tachypneic. Moist cough Cardio regular rate, regular rhythm and no murmurs Rate: tachycardic GI normal to inspection, nondistended, normoactive bowel sounds and non-tender Palpation: soft Back/Spine no CVA tenderness and normal ROM Extremity normal to inspection General Extremety ED: Negative for edema General Extremity: Negative for edema Neuro Neuro Narrative: Patient moves all 4 extremities. I am able to wake her up with voice however she quickly falls back asleep. Skin no rashes or lesions noted and no wounds MDM MDM MDM Narrative Medical decision making narrative: Patient was given supplemental oxygen and IV fluids ordered. White count returns at 4.7 with a hemoglobin 11.5 platelet count of 84. INR 1.3 with a PTT of 34.2. BMP shows a glucose of 102 BUN of 14 anion gap of 4 CO2 of 30 lactic acid is 1.2 liver enzymes showed an alk phos of 127 urinalysis 10-25 white cells 5-10 red cells 4+ bacteria. My independent Interpretation of the chest x-ray is no acute process. There is seem to be some narrowing of the airway cephalad more like what you would see you in a croup-like picture. patient received Tylenol for the fever. Cefepime and vancomycin were ordered. ABG was obtained which demonstrates a pH of 7.39 pCO2 46.8 PaO2 of 68.7 and bicarb of 28.5. This was obtained on 3 L nasal cannula. Urine drug screen negative. Patient continued to seem like she was sedated. She had some upper airway disturbance that I would not characterize as stridor. CT of the brain was negative for acute findings. CT of the neck with IV contrast was obtained reviewed by myself. This was concerning for significant asymmetry of the airway. CT read was obtained and I discussed the findings with her oncologist Dr. Cramer. After reviewing he feels that the mass is growing despite radiation. In the interim while that was going on the patient started to become more awake when she became more awake noted that she was having significant difficulty swallowing. Up into this point she was not really drooling or having any respiratory distress. Patient developed hypoxia. Decision was made to place her on a ventilator to protect her airway. Patient received etomidate and using video related. He I was able to pass a 7-0 endotracheal tube. An OG tube was placed. Postintubation x-ray shows that the tube needs to be pulled back. It was in show satisfactory positioning on the second x-ray. Patient was given Versed and vecuronium until we can get sedation hung. Patient has been accepted to the MICU at [facility] unfortunately there may be substantial delay in getting her a bed assignment. I will update anesthesia and ENT in case there is an airway emergency while she is here. Patient will continue to be reasonably assessed from a hydration and infectious standpoint as well as kept in moderate sedation to hopefully prevent any airway issues. 30 minutes after intubation her pH is 7.169 with pCO2 of 72.4 PaO2 of 72.8 bicarb of 26.3. Ventilation rate was increased to 16 on the vent. History & Record Review Discussion w/independent historian: EMS personnel and Family Lab Data Attestation: I reviewed the patient's lab results. Labs: Laboratory Results - last 24 hr 11/21/23 11/21/23 11/21/23 11:25 12:00 12:30 WBC 4.7 RBC 4.12 L Hgb 11.5 L Hct 35.5 L MCV 86.2 MCH 27.9 MCHC 32.4 RDW Std Deviation 48.0 H RDW Coeff of Melissa 15.4 H Plt Count 84 L MPV 12.2 H Immature Gran % (Auto) 1.500 H Neut % (Auto) 75.4 H Lymph % (Auto) 4.7 L Overton % (Auto) 16.2 H Eos % (Auto) 1.3 Baso % (Auto) 0.9 Absolute Neuts (auto) 3.5 Absolute Lymphs (auto) 0.22 L Nucleated RBC % 0 PT Cancelled 16.2 H INR Cancelled 1.3 APTT Cancelled 34.2 Sodium 140 Potassium 3.9 Chloride 106 Carbon Dioxide 30.0 Anion Gap 4 L BUN 14 Creatinine 0.61 Estim Creat Clear Calc 64.25 Est GFR (MDRD) Af Amer 123 Est GFR (MDRD) Non-Af 102 BUN/Creatinine Ratio 23.0 H Glucose 102 Lactic Acid 1.2 Calcium 9.2 Total Bilirubin 0.50 Direct Bilirubin 0.21 AST 12 L ALT 16 Alkaline Phosphatase 127 H Total Protein 6.5 Albumin 3.1 L Globulin 3.4 Urine Color Urine Clarity Urine pH Ur Specific [place] Urine Protein Urine Glucose (UA) Urine Ketones Urine Occult Blood Urine Nitrite Urine Bilirubin Urine Urobilinogen Ur Leukocyte Esterase Urine RBC Urine WBC Ur Squamous Epith Cells Urine Bacteria Urine Mucus Urine Opiates Screen Urine Methadone Screen Ur Barbiturates Screen Ur Phencyclidine Scrn Ur Amphetamines Screen MDMA (Ecstasy) Screen U Benzodiazepines Scrn Urine Cocaine Screen U Cannabinoids Screen Ur Drug Screen Comment 11/21/23 13:20 WBC RBC Hgb Hct MCV MCH MCHC RDW Std Deviation RDW Coeff of Melissa Plt Count MPV Immature Gran % (Auto) Neut % (Auto) Lymph % (Auto) Overton % (Auto) Eos % (Auto) Baso % (Auto) Absolute Neuts (auto) Absolute Lymphs (auto) Nucleated RBC % PT INR APTT Sodium Potassium Chloride Carbon Dioxide Anion Gap BUN Creatinine Estim Creat Clear Calc Est GFR (MDRD) Af Amer Est GFR (MDRD) Non-Af BUN/Creatinine Ratio Glucose Lactic Acid Calcium Total Bilirubin Direct Bilirubin AST ALT Alkaline Phosphatase Total Protein Albumin Globulin Urine Color Yellow Urine Clarity Cloudy Urine pH 8.0 Ur Specific [place] 1.010 Urine Protein 15 H Urine Glucose (UA) Normal Urine Ketones Negative Urine Occult Blood 150 H Urine Nitrite Positive H Urine Bilirubin Negative Urine Urobilinogen Normal Ur Leukocyte Esterase 100 H Urine RBC 5-10 SEEN Urine WBC 10-25 SEEN Ur Squamous Epith Cells 0-5 SEEN Urine Bacteria 4+ Urine Mucus RARE Urine Opiates Screen NEGATIVE Urine Methadone Screen NEGATIVE Ur Barbiturates Screen NEGATIVE Ur Phencyclidine Scrn NEGATIVE Ur Amphetamines Screen NEGATIVE MDMA (Ecstasy) Screen NEGATIVE U Benzodiazepines Scrn NEGATIVE Urine Cocaine Screen NEGATIVE U Cannabinoids Screen NEGATIVE Ur Drug Screen Comment ABG Data ABG results: ABG 11/21/23 11/21/23 13:09 16:27 Specimen Type ART ART Sample Site L Radial L Radial pH 7.39 7.17 L* Bicarbonate Actual 28.5 H 26.3 H Total CO2 30 29 Base Excess 4 H -2 O2 Saturation 93 L 89 L O2 % 3.0 80.0 ABG pCO2 46.8 H 72.4 H* ABG pO2 69 L 73 L Mike Test Positive Positive Respiration Rate 14 O2 Delivery Device Cannula Adult Vent Vent Mode Not entered AC Tidal Volume 400.0 POC PEEP 5 Crit Call To/Read Back Yes Blood Gas Notified Whom jovanniks Blood Gas Notified Time 16:30:06 Radiography Diagnostic Testing: Clinical Impression(s) from Imaging Studies Chest X-Ray 11/21/23 12:28 IMPRESSION: No acute process Electronically Signed: Dylan Aguilar MD at 13:04 EDT , Brain CT 11/21/23 13:14 IMPRESSION: Chronic involutional changes of the brain. 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 The mass causes significant effacement and narrowing of the sinuses and the airway at approximately 80% of the total luminal diameter. A cluster of reactive lymph nodes are present at the periphery of the left focal cord/pharyngeal mass. 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 The mass causes significant effacement and narrowing of the sinuses and the airway at approximately 80% of the total luminal diameter. A cluster of reactive lymph nodes are present at the periphery of the left focal cord/pharyngeal mass. N.B. : Malachi Marie DO, confirmed on 11/21/2023 15:02:36 (ET) that the healthcare facility has received the radiology report. Electronically Signed: Dylan Aguilar MD at 14:43 EDT , Chest X-Ray 11/21/23 15:40 IMPRESSION: Endotracheal tube with the distal tip extending into the right mainstem bronchus and should be retracted approximately 3 cm. There is bilateral airspace disease present. Nasogastric tube in good position. Electronically Signed: Darien Escobar MD at 16:17 EDT , Chest X-Ray 11/21/23 15:45 IMPRESSION: Retraction of endotracheal tube with the distal tip now above the jennifer in good position. There is no change in the appearance of the chest. Electronically Signed: Darien Escobar MD at 16:24 EDT , Management Discussion w/another healthcare provider: [employer] ([facility] Radiation Oncology (Dr. Cramer - [facility]) Anesthesia (Dr. Murray) ) Discharge Plan Triage Chief Complaint: Shortness of Breath ED Provider: Malachi Marie Dx/Rx/DC Orders Clinical Impression: Cancer of thyroid, Diabetes, Sepsis, Acute UTI, Respiratory failure, Acute airway obstruction Prescriptions: No Action albuterol sulfate 90 mcg/actuation HFA aerosol inhaler 2 puff inhalation Q6H PRN (Reason: shortness of breath or wheezing) cranberry 400 mg capsule 400 mg PO DAILY Rx Instructions: administer with a meal glucagon 1 mg recon soln 1 mg subcut Q20M PRN (Reason: hypoglycemia) Rx Instructions: until target blood sugar attained loperamide [Imodium A-D] 2 mg capsule 2 mg PO Q6H PRN (Reason: loose stool) lactase 3,000 unit tablet 3,000 unit PO ONCE Rx Instructions: administer with meals and/or snacks magnesium hydroxide [Milk of Magnesia] 400 mg/5 mL suspension 30 ml PO Q4H PRN (Reason: stomach upset) oxycodone 10 mg tablet 10 mg PO Q6H PRN (Reason: pain) ropinirole 0.5 mg tablet 0.5 mg PO QHS sitagliptin 100 mg tablet 100 mg PO DAILY fluticasone propionate 1 SPRAY spray,suspension 1 spray NASAL QHS omeprazole 40 mg Capsule,Delayed Release(Dr/Ec) 40 mg PO DAILY multivitamin Tablet 1 tab PO DAILY acetaminophen 325 mg Tablet 650 mg PO Q4H PRN (Reason: Pain) bisacodyl 10 mg Suppository 10 mg NM DAILY PRN (Reason: Constipation) Rx Instructions: USE X1 IF MILK OF MAG IS NOT EFFECTIVE. NOTIFY PHYSICIAN IF NO BM IN 4 DAYS atorvastatin [Lipitor] 10 mg Tablet 10 mg PO QHS meclizine 25 mg Tablet 25 mg PO TID PRN (Reason: Vertigo) Arnuity Ellipta 100 mcg/actuation blister with device 1 inh INHALATION QHS methenamine hippurate 1 gram tablet 1 g PO BID sennosides-docusate sodium [Stool Softener-Stimulant Laxat] 8.6-50 mg Tablet 2 tab PO BID PRN PRN (Reason: Constipation) Qty: 0 0RF spironolactone 25 mg tablet 25 mg PO DAILY 30 Days Qty: 0 0RF ferrous sulfate [iron] 325 mg (65 mg iron) Tablet 325 mg PO QODAY 30 Days Qty: 0 0RF insulin glargine [Basaglar KwikPen U-100 Insulin] 100 unit/mL (3 mL) insulin pen 12 unit SUBCUT QHS albuterol sulfate 2.5 mg /3 mL (0.083 %) Solution For Nebulization 2.5 mg inhalation Q2H PRN PRN (Reason: Dyspnea, wheezing) Qty: 0 0RF pramipexole 0.25 mg Tablet 0.25 mg PO QHS Qty: 0 0RF ascorbic acid (vitamin C) 500 mg Tablet 500 mg PO BIDCM 30 Days Qty: 60 2RF Boost Glucose Control 0.07-0.8 gram-kcal/mL liquid 237 ml PO QHS furosemide 40 mg tablet 40 mg PO DAILY Patient Comments: Hold if creatinine jumps more than 30% than baseline. lorazepam 0.5 mg tablet 0.5 mg PO MOTUWETHFR Rx Instructions: GIVE 2 TABLET BY MOUTH IN THE MORNING EVERY SATURDAY, SATURDAY, SATURDAY, SATURDAY, AND SATURDAY FOR ANXIETY PRIOR TO RADIATION UNTIL 11/22/23 modafinil 100 mg tablet 100 mg PO 1200 Myrbetriq 50 mg tablet extended release 24 hr 100 mg PO DAILY Xarelto 10 mg tablet 10 mg PO DAILY docusate sodium [Colace] 100 mg capsule 100 mg PO BID pregabalin 100 mg capsule 100 mg PO TID acetaminophen 650 mg suppository 650 mg NM Q4H PRN (Reason: pain) Enema 19-7 gram/118 mL enema 118 ml NM DAILY PRN (Reason: constipation) Rx Instructions: FOR X2 PER EPISODE IF DULCOLAX IS INEFFECTIVE. NOTIFY PHYSICIAN IF NO BM IN 4 DAYS dextrose [Glucose Gel] 40 % gel 10 g PO PRN PRN (Reason: hypoglycemia) Rx Instructions: until symptoms of low blood sugar are controlled guaifenesin [Adult Tussin Chest Congestion] 100 mg/5 mL liquid 200 mg PO Q4H PRN (Reason: congestion) diltiazem HCl 360 mg capsule,extended release 24hr 360 mg PO DAILY metformin 500 mg tablet 500 mg PO QHS metformin 1,000 mg tablet 1,000 mg PO DAILY insulin aspart U-100 100 unit/mL solution 1 sliding scale dose subcut 4X/DAY Protocol: 6. Sliding Scale Insulin Custom Condition: 80-200 Dose/Route: 2 Condition: 201-250 Dose/Route: 3 Condition: 251-300 Dose/Route: 4 Condition: 301-350 Dose/Route: 5 Condition: 351-400 Dose/Route: 6 Condition: 401-450 Dose/Route: 7 Condition: >451 Instruction: call doctor Protocol Text: Custom Sliding Scale Rx Instructions: BEFORE MEALS AND AT BEDTIME modafinil 200 mg tablet 200 mg PO DAILY nitrofurantoin monohyd/m-cryst [Macrobid] 100 mg capsule 100 mg PO Q12H 7 Days Qty: 14 0RF Rx Instructions: must administer with a meal/food Primary Care Provider: Rosa Silva Referrals: Rosa Silva MD [Primary Care Provider] - Disposition Disposition: Acute Care Hospital Discharge Location: [facility]
[2023-11-21] MEDS: Acetaminophen 500 MG Tablet 1000 MG PO (12:04)
[2023-11-21] MEDS: 0.9% Normal Saline (1000mL) 1,000 ML 999 ML IV ×3 (12:05→18:02)
[2023-11-21 12:11] LABS: Anion Gap 4 (5-15); BUN 14 mg/dL (7-18); Calcium,Total 9.2 mg/dL (8.5-10.1); Chloride 106 mmol/L (98-107); Creatinine, Serum 0.61 mg/dL (0.55-1.02); EST Glomerular Filtration Rate 102 mL/min (>60); Est Glom Filt Rate - Afr Amer 123 mL/min (>60); Estimated Creatinine Clearance 64.25 ml/min; Glucose 102 mg/dL (74-106); Potassium 3.9 mmol/L (3.5-5.1); Sodium Level 140 mmol/L (136-145)
[2023-11-21 12:20] LABS: AST(SGOT) 12 U/L (15-37); Alanine Aminotransfer ALT/SGPT 16 U/L (13-56); Albumin, Serum 3.1 g/dL (3.2-5.0); Alkaline Phosphatase 127 U/L (45-117); Bilirubin, Direct 0.21 mg/dL (0.00-0.30); Globulin 3.4 g/dL (2.2-4.2); Protein, Total 6.5 g/dL (6.4-8.2)
--- NOTE | 2023-11-21 12:28 | RAD_ITS ---
STUDY: X-RAY CHEST REASON FOR EXAM: Female, 73 years old. fever TECHNIQUE: Single AP portable view of the chest. COMPARISON: October 20, 2023 FINDINGS: The lungs are clear and expanded. There is no demonstrated pleural abnormality. Normal size heart. Normal mediastinum and leda. There is prominence of the pulmonary hilar arteries and peripheral pulmonary arteries, consistent with congestive heart failure (CHF). There is atherosclerotic calcification of the aortic arch with tortuosity. There are diffuse degenerative changes of the visualized thoracic spine. Normal visualized ribs, clavicles, and shoulders. There is no demonstrated abnormality of the visualized soft tissue structures of the upper abdomen. RAD/Chest 1 View (Portable) IMPRESSION: No acute process Electronically Signed: Dylan Aguilar MD at 13:04 EDT ,
[2023-11-21 12:37] LABS: Lactic Acid 1.2 mmol/L (0.4-1.9)
[2023-11-21 12:47] LABS: International Normalized Ratio 1.3; Prothrombin Time (Protime)PT. 16.2 SECONDS (11.7-14.9)
[2023-11-21 12:49] LABS: Partial Thromboplast Time 34.2 Seconds (24.1-36.2)
[2023-11-21 13:12] LABS: Allen Test Positive; Base Excess 4 mmol/L (-2 to +2); Bicarbonate 28.5 mmol/L (22-26); Blood Gas Specimen Type ART; Mode Not entered; O2 Delivery Device Cannula; PO2 69 mmHG (75-100); SITE L Radial; SO2 93 % (95-99); Total Carbon Dioxide 30 mmol/L; pCO2 46.8 mmHg (35-45); pH 7.39 (7.35-7.45)
--- NOTE | 2023-11-21 13:14 | CT_ITS ---
STUDY: CT BRAIN WITHOUT CONTRAST REASON FOR EXAM: Female, 73 years old. Altered mental status RADIATION DOSAGE (If Supplied By Facility): CTDIvol = ( 44.99 ) mGy, DLP = ( 897.35 ) mGycm TECHNIQUE: Transaxial CT imaging of the brain was performed without administration of intravenous contrast material. Individualized dose optimization techniques were used for this CT. COMPARISON: None. FINDINGS: Normal soft tissue structures. 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 There is mild cerebral atrophy with widening of the extra-axial spaces and ventricular dilatation. There are areas of decreased attenuation within the white matter tracts of the supratentorial brain, consistent with microvascular disease changes. Normal basal ganglia and thalami. Normal brainstem. Normal cerebellum. There is no intracranial hemorrhage. There are no findings of an acute ischemic infarction. Normal visualized paranasal sinuses. CT/Brain/Head without Contrast IMPRESSION: Chronic involutional changes of the brain. Electronically Signed: Dylan Aguilar MD at 14:21 EDT ,
--- NOTE | 2023-11-21 13:14 | CT_ITS ---
ACR Level 3 findings have been noted. An addendum which confirms receipt of the report will follow. STUDY: CT SOFT TISSUE NECK WITH CONTRAST REASON FOR EXAM: Female, 73 years old. pain RADIATION DOSAGE (If Supplied By Facility): CTDIvol = ( 19.72 ) mGy, DLP = ( 482.67 ) mGycm TECHNIQUE: The patient was scanned in a multi-detector CT scanner. High resolution transaxial imaging was performed following intravenous administration of IV 100mL Isovue-370. Sagittal and coronal images were reconstructed. Individualized dose optimization techniques were used for this CT. COMPARISON: None. 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 The mass causes significant effacement and narrowing of the sinuses and the airway at approximately 80% of the total luminal diameter. A cluster of reactive lymph nodes are present at the periphery of the left focal cord/pharyngeal mass. Normal bilateral parotid glands. Normal bilateral short order fry cook spaces. Normal bilateral parapharyngeal spaces. Normal bilateral carotid spaces. Normal bilateral sublingual and submandibular glands and spaces. Normal visualized nasopharynx. Normal retropharyngeal space. Normal perivertebral space. Normal visualized bilateral faucial tonsils. The visualized tongue, tongue base and oropharynx are normal. The visualized cervical lymph nodes (levels I-) are within normal size limits, and maintain normal morphology. There is no demonstrated solid or cystic mass lesion. There is no abnormal contrast enhancement. Normal epiglottis. The pre-epiglottic and paraglottic adipose spaces are normal. Normal right side aryepiglottic folds and vocal cord. Normal subglottic trachea. Normal bilateral lobes of the thyroid gland. Pulmonary edema seen in the bilateral lung apices.. Normal visualized paranasal sinuses. There is multilevel degenerative changes of the cervical spine. 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 The mass causes significant effacement and narrowing of the sinuses and the airway at approximately 80% of the total luminal diameter. A cluster of reactive lymph nodes are present at the periphery of the left focal cord/pharyngeal mass. Electronically Signed: Dylan Aguilar MD at 14:43 EDT ,
[2023-11-21 13:43] LABS: Amphetamine Urine VISTA NEGATIVE (<1000 ng/mL); Barbiturate Urine VISTA NEGATIVE (< 200 ng/mL); Benzodiazepine Urine VISTA NEGATIVE (< 200 ng/mL); Cocaine Urine VISTA NEGATIVE (< 300 ng/mL); Ecstacy Urine VISTA NEGATIVE (< 500 ng/mL); Methadone Urine VISTA NEGATIVE (< 300 ng/mL); PCP Urine VISTA NEGATIVE (< 25 ng/mL); THC Urine VISTA NEGATIVE (< 50 ng/mL); Vista UDS pH Range 7
[2023-11-21 13:44] LABS: Absolute Lymphocyte Count 0.22 X10^3/uL (0.83-4.51); Absolute Neutrophil Count 3.5 X10^3/uL (2.0-7.7); Basophil# 0.04 X10^3/uL; Basophil% 0.9 % (0-1); Eosinophil# 0.06 X10^3/uL; Eosinophils% 1.3 % (0-5); Hematocrit 35.5 % (37-47); Hemoglobin 11.5 g/dL (12.0-15.0); Lymphocyte # 0.22 X10^3/ul (0.83-4.51); Lymphocyte % 4.7 % (19-41); Mean Corp Hgb Conc 32.4 g/dL (32-36); Mean Corpuscular Hgb 27.9 pg (27.0-32.0); Mean Corpuscular Volume 86.2 fL (81-99); Mean Platelet Vol. 12.2 fl (6.2-12.0); Monocyte# 0.76 X10^3/uL; Monocyte% 16.2 % (0-10); NRBC Flagged by Analyzer 0 % (0-5); Neutrophil # 3.53 X10^3/uL (2.7-7.7); Neutrophil % 75.4 % (47-70); POSITIVE COUNT YES; POSITIVE DIFFERENTIAL YES; Platelet Count 84 K/mm3 (150-450); RBC Distribution Width CV 15.4 % (11.6-14.6); Red Blood Count 4.12 M/mm3 (4.2-5.4); White Blood Count 4.7 K/mm3 (4.4-11.0)
[2023-11-21 14:20] LABS: Color, Urine Yellow (Yellow); Glucose, Dipstick Normal (Normal); Ketone-Dipstick Negative (Negative); Leukocyte Esterase-Dipstick 100 /ul (Negative); Nitrite-Dipstick Positive (Negative); Occult Blood-Urine 150 /ul (Negative); Protein-Dipstick 15 mg/dl (Negative); Urine Bilirubin Dipstick Negative (Negative); Urine Clarity Cloudy (Clear); Urine Urobilinogen Normal (Normal)
[2023-11-21] MEDS: Cefepime HCl 2 GM in 0.9% Normal Saline (100mL MB+) 100 ML IV (14:20)
[2023-11-21 14:27] LABS: Bacteria 4+ /hpf (None Seen); Mucous, Urine RARE /hpf (<or=2+); Red Blood Cells-Urine 5-10 SEEN /hpf (0-5); Squamous Epithelial Cells - UA 0-5 SEEN /hpf (5-10); White Blood Cells 10-25 SEEN /hpf (0-5)
[2023-11-21] MEDS: Vancomycin HCl 2,000 MG in 0.9% Normal Saline (500mL Bag) 500 ML 250 MG IV (15:10)
[2023-11-21] MEDS: Etomidate 20 MG/10 ML Vial 15 MG IV (15:24)
[2023-11-21] MEDS: Succinylcholine Chloride 200 MG/10 ML SYRINGE 100 MG IV (15:26)
--- NOTE | 2023-11-21 15:40 | RAD_ITS ---
EXAM: XR CHEST, 1 VIEW CLINICAL INDICATION: intubation TECHNIQUE: Frontal view of the chest. COMPARISON: 11/21/2023 at 1227 hours FINDINGS: LUNGS AND PLEURAL SPACES: There is bilateral airspace disease present. No pneumothorax. No effusion. HEART: Unremarkable. Cardiac silhouette not enlarged. MEDIASTINUM: Central airways and mediastinal contour are unremarkable. BONES/JOINTS: Unremarkable. No acute fracture. SOFT TISSUES: Unremarkable. TUBES, LINES AND DEVICES: Endotracheal tube is in place with the distal tip extending down the right mainstem bronchus and should be retracted approximately 3 cm. Nasogastric tube of the diaphragm not visualized and likely in the mid stomach. RAD/Chest 1 View (Portable) IMPRESSION: Endotracheal tube with the distal tip extending into the right mainstem bronchus and should be retracted approximately 3 cm. There is bilateral airspace disease present. Nasogastric tube in good position. Electronically Signed: Darien Escobar MD at 16:17 EDT ,
[2023-11-21] MEDS: dexMEDEtomidine 400 MCG in 0.9% Normal Saline (100mL Bag) 96 ML 12.4 MCG CONT INF (15:41)
--- NOTE | 2023-11-21 15:44 | ED.RN ---
Pt becoming more air hungry and coughing without ability to catch her breath. Decision to intubate made. Pt given 15 etomidate at 1524, 100 succ at 1526 and intubated at 1526 witth size 7 indonesian and 24 at the lip. 18F NG tube placed at 1531.
--- NOTE | 2023-11-21 15:45 | RAD_ITS ---
EXAM: XR CHEST, 1 VIEW CLINICAL INDICATION: for et tube adjustment TECHNIQUE: Frontal view of the chest. COMPARISON: 11/21/2023 at 1540 hours FINDINGS: LUNGS AND PLEURAL SPACES: Bilateral airspace disease unchanged. No pneumothorax. No effusion. HEART: Unremarkable. Cardiac silhouette not enlarged. MEDIASTINUM: Central airways and mediastinal contour are unremarkable. BONES/JOINTS: Unremarkable. No acute fracture. SOFT TISSUES: Unremarkable. TUBES, LINES AND DEVICES: Endotracheal tube has been retracted with the distal tip now 2.8 cm above the jennifer in good position. Nasogastric tube is unchanged. RAD/Chest 1 View IMPRESSION: Retraction of endotracheal tube with the distal tip now above the jennifer in good position. There is no change in the appearance of the chest. Electronically Signed: Darien Escobar MD at 16:24 EDT ,
--- NOTE | 2023-11-21 15:46 | ED.RN ---
Et tube adjusted from 24 at the lip to 22 at the lip.
[2023-11-21] MEDS: Rocuronium Bromide 50 MG/5 ML Vial IV (15:48)
[2023-11-21] MEDS: Midazolam 5 MG/ML Syringe IV (15:48)
--- NOTE | 2023-11-21 15:52 | ED.RN ---
precedex increased at this time per MD request.
[2023-11-21] MEDS: fentaNYL drip 100 ML 5 MCG CONT INF (16:25)
[2023-11-21 16:34] LABS: Allen Test Positive; Base Excess -2 mmol/L (-2 to +2); Bicarbonate 26.3 mmol/L (22-26); Blood Gas Specimen Type ART; Mode AC; O2 Delivery Device Adult Vent; PEEP 5; PO2 73 mmHG (75-100); RR 14; SITE L Radial; SO2 89 % (95-99); Time Given 16:30:06; Total Carbon Dioxide 29 mmol/L; pCO2 72.4 mmHg (35-45); pH 7.17 (7.35-7.45)
--- NOTE | 2023-11-21 17:53 | ED.RN ---
notified of pt bp readings are soft and requesting advice on titrating back the precedex or fentanyl. Dr. Marie advised this RN to decrease the precedex at this time.
[2023-11-21] MEDS: dexMEDEtomidine 400 MCG in 0.9% Normal Saline (100mL Bag) 96 ML 24.8 MCG CONT INF (18:38)
[2023-11-21] MEDS: Acetaminophen 650 MG/20 ML UDC NG (18:38)
[2023-11-21 18:58] LABS: Allen Test Positive; Base Excess -4 mmol/L (-2 to +2); Bicarbonate 22.4 mmol/L (22-26); Blood Gas Specimen Type ART; Mode AC; O2 Delivery Device Adult Vent; PEEP 5; PO2 82 mmHG (75-100); RR 16; SITE L Radial; SO2 95 % (95-99); Total Carbon Dioxide 24 mmol/L; pCO2 45.2 mmHg (35-45)
--- NOTE | 2023-11-21 19:45 | PCM.HP.STD ---
HPI - General General Date of Admission: 11/21/23 Date of Service: 11/21/23 Chief Complaint: Shortness of breath and cough HPI Narrative SANDY ORONA, is a 73 F who presented to [facility] ED on 11/21/2023 with worsening shortness of breath and cough. Patient has a significant history of stage IV thyroid cancer s/p surgery in July and radiation therapy following that. See below for further details. Patient lives in a alf, daughter is very involved. Daughter lives in [place] but talks to the patient over the phone about every day. She noticed that the patient was reporting worsening shortness of breath over the past several days and then her voice began to sound more muffled, so she had the patient come in for further evaluation. On arrival to the ED, patient initially appeared somewhat lethargic and had garbled speech. Labs and imaging were obtained and CT of the neck with IV contrast was concerning for significant asymmetry of the airway. Patient did become somewhat more awake during this workup but developed worsening hypoxia and difficulty swallowing. Decision was made to intubate the patient in the ED. Due to patient's complex history and with her oncologist with [facility], plan was made to transfer the patient to [facility]. However, no beds were available and hospitalist contacted to admit the patient here for further management. I saw the patient at the bedside in the ED after she was intubated. Patient was sedated and not following any commands. Daughter and close friend were at the bedside, history was obtained from them as well as from [facility] records. Patient lived in assisted living for 10 to 11 years due to difficulty taking care of herself. She was then moved over to the alf side about 2 years ago after having issues with her feet. Patient follows with [facility] for thyroid cancer. She was diagnosed with stage IV papillary thyroid cancer in late 2022, was found on imaging to have and approximately 8 x 4 x 3 cm left thyroid/neck mass that was confirmed to be cancer on biopsy. She had an extensive surgery done on 08/06/2023 in which the left lobe of the thyroid was removed, and left vagus nerve appeared to be sacrificed. However, due to the size and infiltration of the mass it appears they were only able to remove a portion of the mass. She was then started on radiation therapy and completed about 4 weeks of this prior to this hospitalization. Per the daughter, they were told she likely was not a candidate for any further surgical procedures and did not need chemotherapy at that time. Daughter did note that patient has been adamant to this point that she wants to remain full code. However, daughter and close friends who is a retired nurse understand that she has stage IV cancer and that her current situation is presumably due to the mass impinging on her airway, and they would be agreeable to further discussion regarding goals of care as needed. [facility] Medical History Acute ITP Anemia Anxiety and depression Arthritis Asthma Atrial fibrillation Back pain Benign hypertension Bilateral lower extremity edema BiPAP (biphasic positive airway pressure) dependence Cellulitis Cellulitis of left foot Cholelithiasis Chronic acquired lymphedema Chronic back pain Chronic kidney disease, stage 3b Chronic malnutrition Chronic pain Chronic stasis dermatitis of left lower extremity Congestive heart failure (CHF) COPD (chronic obstructive pulmonary disease) Decreased pedal pulses Depression Diabetes Diabetic ulcer of left foot Diabetic ulcer of right foot Diabetic ulcer of toe of left foot Dialysis patient DVT (deep venous thrombosis) Elephantiasis GERD (gastroesophageal reflux disease) Hammertoe of left foot Hammertoe of left foot Heartburn High cholesterol History of edema History of kidney stones History of pain when walking History of stress test HLD (hyperlipidemia) Hoarseness Hypertension Hypertensive chronic kidney disease with stage 1 through stage 4 chronic kidney disease, or unspecified chronic kidney disease Hypokalemia Increased BMI Insulin dependent diabetes mellitus Leg cramps Localized edema MRSA infection Non-smoker Nonhealing ulcer of left lower extremity with fat layer exposed Nonhealing ulcer of right lower extremity with fat layer exposed jail resident Obstructive sleep apnea (adult) (pediatric) On home oxygen therapy Osteoporosis PAF (paroxysmal atrial fibrillation) Peripheral neuropathy Renal lithiasis Rheumatic fever Rheumatoid arthritis RLS (restless legs syndrome) Seasonal allergies Shortness of breath on exertion Sleep apnea Tachycardia Thyroid nodule Type 2 diabetes mellitus with diabetic polyneuropathy Ulcer of left foot with fat layer exposed Ulcer of right foot with fat layer exposed Venous insufficiency Venous stasis ulcer of right thigh with fat layer exposed Venous ulcer of left lower extremity with varicose veins Home Medications fluticasone propionate 50 mcg/actuation nasal spray,suspension 1 spray QHS allergies 02/16/14 [History Last Taken 11/20/23] acetaminophen 325 mg tablet 650 mg PO Q4H PRN Pain 09/09/21 [History Last Taken 10/08/22] bisacodyl 10 mg rectal suppository 10 mg AL DAILY PRN Constipation 09/09/21 [History Last Taken Unknown] multivitamin 1 tab PO DAILY supplement 09/09/21 [History Last Taken 12/23/22] omeprazole 40 mg capsule,delayed release 40 mg PO DAILY gerd 09/09/21 [History Last Taken 12/23/22] atorvastatin 10 mg tablet (Lipitor) 10 mg PO QHS cholesterol 09/09/22 [History Last Taken 11/20/23] meclizine 25 mg tablet 25 mg PO TID PRN Vertigo 09/09/22 [History Last Taken Unknown] fluticasone furoate 100 mcg/actuation blister powder for inhalation (Arnuity Ellipta) 1 inh inhalation QHS COPD 12/23/22 [History Last Taken 11/20/23] methenamine hippurate 1 gram tablet 1 g PO BID UTI 12/23/22 [History Last Taken 11/20/23] ferrous sulfate 325 mg (65 mg iron) tablet (iron) 325 mg PO QODAY supplement 30 days #0 tabs 12/27/22 [Rx Last Taken 11/20/23] sennosides 8.6 mg-docusate sodium 50 mg tablet (Stool Softener-Stimulant Laxative) 2 tab PO BID PRN PRN Constipation #0 tabs 12/27/22 [Rx Last Taken Unknown] spironolactone 25 mg tablet 25 mg PO DAILY diuretic 30 days #0 tabs 12/27/22 [Rx Last Taken 11/20/23] insulin glargine 100 unit/mL (3 mL) subcutaneous pen (Basaglar KwikPen U-100 Insulin) 12 unit subcut QHS diabetes 01/26/23 [History Last Taken 11/15/23] albuterol sulfate 2.5 mg/3 mL (0.083 %) solution for nebulization 2.5 mg (3 mL) inhalation Q2H PRN PRN Dyspnea, wheezing #0 mL 01/31/23 [Rx Last Taken 11/19/23] pramipexole 0.25 mg tablet 0.25 mg PO QHS #0 tabs 01/31/23 [Rx Last Taken 11/20/23] ascorbic acid (vitamin C) 500 mg tablet 500 mg PO BIDCM 30 days #60 tabs 05/06/23 [Rx Last Taken 11/20/23] albuterol sulfate 90 mcg/actuation aerosol inhaler 2 puff inhalation Q6H PRN shortness of breath or wheezing 09/03/23 [History Last Taken Unknown] cranberry 400 mg capsule 400 mg PO DAILY 09/03/23 [History Last Taken 11/20/23] glucagon 1 mg solution for injection 1 mg subcut Q20M PRN hypoglycemia 09/03/23 [History Last Taken Unknown] lactase 3,000 unit tablet 3,000 unit PO ONCE 09/03/23 [History Last Taken Unknown] loperamide 2 mg capsule (Imodium A-D) 2 mg PO Q6H PRN loose stool 09/03/23 [History Last Taken Unknown] magnesium hydroxide 400 mg/5 mL oral suspension (Milk of Magnesia) 30 ml PO Q4H PRN stomach upset 09/03/23 [History Last Taken Unknown] oxycodone 10 mg tablet 10 mg PO Q6H PRN pain 09/03/23 [History Last Taken 11/20/23] ropinirole 0.5 mg tablet 0.5 mg PO QHS 09/03/23 [History Last Taken 11/20/23] sitagliptin 100 mg tablet 100 mg PO DAILY 09/03/23 [History Last Taken 11/20/23] diltiazem HCl 360 mg capsule,extended release 24 hr 360 mg PO DAILY 10/20/23 [History Last Taken 11/20/23] insulin aspart U-100 100 unit/mL subcutaneous solution 1 sliding scale dose subcut 4X/DAY 10/20/23 [History Last Taken 11/21/23] metformin 1,000 mg tablet 1,000 mg PO DAILY 10/20/23 [History Last Taken 11/20/23] metformin 500 mg tablet 500 mg PO QHS 10/20/23 [History Last Taken 11/20/23] modafinil 200 mg tablet 200 mg PO DAILY 10/20/23 [History Last Taken Unknown] nitrofurantoin monohydrate/macrocrystals 100 mg capsule (Macrobid) 100 mg PO Q12H 7 days #14 caps 10/20/23 [Rx Last Taken 11/20/23] acetaminophen 650 mg rectal suppository 650 mg AL Q4H PRN pain 11/21/23 [History Last Taken 11/15/23] dextrose 40 % oral gel (Glucose Gel) 10 g PO PRN PRN hypoglycemia 11/21/23 [History Last Taken Unknown] docusate sodium 100 mg capsule (Colace) 100 mg PO BID 11/21/23 [History Last Taken 11/20/23] furosemide 40 mg tablet 40 mg PO DAILY 11/21/23 [History Last Taken Unknown] guaifenesin 100 mg/5 mL oral liquid (Adult Tussin Chest Congestion) 200 mg PO Q4H PRN congestion 11/21/23 [History Last Taken 11/20/23] lorazepam 0.5 mg tablet 0.5 mg PO MOTUWETHFR ANXIETY 11/21/23 [History Last Taken 11/21/23] mirabegron 50 mg tablet,extended release 24 hr (Myrbetriq) 100 mg PO DAILY 11/21/23 [History Last Taken 11/20/23] modafinil 100 mg tablet 100 mg PO 1200 11/21/23 [History Last Taken 11/20/23] nutrition tx glu intol,lac-free,soy-fiber 0.07 gram-0.8 kcal/mL liquid (Boost Glucose Control) 237 ml PO QHS 11/21/23 [History Last Taken 11/20/23] pregabalin 100 mg capsule 100 mg PO TID 11/21/23 [History Last Taken 11/20/23] rivaroxaban 10 mg tablet (Xarelto) 10 mg PO DAILY 11/21/23 [History Last Taken Unknown] sodium phosphates 19 gram-7 gram/118 mL enema (Enema) 118 ml AL DAILY PRN constipation 11/21/23 [History Last Taken Unknown] Allergy/AdvReac Type Severity Reaction Status Date / Time aspirin Allergy Severe Hives Verified 11/21/23 11:14 Penicillins Allergy Severe Anaphylaxis Verified 11/21/23 11:14 Sulfa (Sulfonamide Allergy Severe Anaphylaxis Verified 11/21/23 11:14 Antibiotics) latex Allergy Rash Verified 11/21/23 11:14 Family History Mother Heart disease Cancer pancreatic Father Heart disease CVA (cerebral vascular accident) Hypertension Cancer liver, lung Surgical History History of appendectomy History of cardiac catheterization History of cholecystectomy History of ERCP History of hysterectomy History of thyroidectomy Hx of dilation and curettage Hx of toe surgery S/P laparoscopic cholecystectomy Social History housing: alf Smoking Status: Never smoker alcohol intake: never substance use type: does not use additional social history: currently residing at [facility] ROS Review of Systems ROS Unobtainable: due to endotracheal tube Vital Signs Vital Signs Vital Signs: 11/21/23 11:13 11/21/23 11:13 11/21/23 11:23 Temperature 101.1 F H Temperature Source Temporal Pulse Rate 129 H 131 H Respiratory Rate 18 19 H Respiratory Effort Short of Breath Labored Respiratory Pattern Blood Pressure 178/73 H 196/101 H Blood Pressure Mean 108 132 Pulse Ox 85 93 Oxygen Delivery Method Room Air Nasal Cannula Nasal Cannula Oxygen Flow Rate (L/min) 2 2 Fraction of Inspired Oxygen (FIO2) 11/21/23 11:59 11/21/23 12:17 11/21/23 13:15 Temperature 101.1 F H 99.2 F H Temperature Source Temporal Oral Pulse Rate 123 H 120 H Respiratory Rate 26 H 23 H Respiratory Effort Respiratory Pattern Blood Pressure 163/62 H 131/57 H Blood Pressure Mean 95 81 Pulse Ox 96 96 Oxygen Delivery Method Nasal Cannula Nasal Cannula Nasal Cannula Oxygen Flow Rate (L/min) 2 2 4 Fraction of Inspired Oxygen (FIO2) 11/21/23 14:00 11/21/23 15:00 11/21/23 15:26 Temperature 99.0 F 100.1 F H Temperature Source Oral Axillary Pulse Rate 116 H 115 H 150 H Respiratory Rate 22 H 22 H 30 H Respiratory Effort Respiratory Pattern Tachypnea Blood Pressure 155/60 H 114/94 H Blood Pressure Mean 91 100 Pulse Ox 96 95 95 Oxygen Delivery Method Nasal Cannula Nasal Cannula Oxygen Flow Rate (L/min) 4 4 Fraction of Inspired Oxygen (FIO2) 100 11/21/23 16:00 11/21/23 15:59 11/21/23 16:36 Temperature 99.7 F H Temperature Source Axillary Pulse Rate 127 H 134 H 124 H Respiratory Rate 14 16 Respiratory Effort Respiratory Pattern Normal Blood Pressure 184/89 H Blood Pressure Mean 120 Pulse Ox 90 93 90 Oxygen Delivery Method Mechanical Ventilator Oxygen Flow Rate (L/min) Fraction of Inspired Oxygen (FIO2) 80 11/21/23 17:00 11/21/23 18:01 11/21/23 18:00 Temperature 100 F H 100.3 F H Temperature Source Temporal Axillary Pulse Rate 95 96 106 H Respiratory Rate 21 H 20 H 30 H Respiratory Effort Respiratory Pattern Blood Pressure 107/56 L 94/55 L Blood Pressure Mean 73 68 Pulse Ox 96 97 93 Oxygen Delivery Method Mechanical Ventilator Oxygen Flow Rate (L/min) Fraction of Inspired Oxygen (FIO2) 90 11/21/23 19:14 11/21/23 19:00 11/21/23 19:00 Temperature 100.5 F H Temperature Source Axillary Pulse Rate 110 H 110 H 110 H Respiratory Rate 25 H Respiratory Effort Respiratory Pattern Blood Pressure 105/79 Blood Pressure Mean 87 Pulse Ox 96 Oxygen Delivery Method Mechanical Ventilator Oxygen Flow Rate (L/min) Fraction of Inspired Oxygen (FIO2) 11/21/23 19:26 Temperature Temperature Source Pulse Rate 105 H Respiratory Rate 25 H Respiratory Effort Respiratory Pattern Blood Pressure 97/69 Blood Pressure Mean 78 Pulse Ox 96 Oxygen Delivery Method Mechanical Ventilator Oxygen Flow Rate (L/min) Fraction of Inspired Oxygen (FIO2) Weight Weight: 99.2 kg Body Mass Index (BMI) 42.7 Physical Exam Const Constitutional Narrative: Intubated and sedated. Not following any commands. Morbidly obese. HEENT normocephalic, head/scalp atraumatic and nasal mucous membranes and turbinates normal HEENT Narrative: ET tube in place. Neck Neck Narrative: No overt mass palpated in the neck. Chest inspection of chest normal Resp normal air movement and clear to auscultation bilaterally Resp Narrative: Mechanically ventilated, low vent settings. Cardio no murmurs and peripheral pulses 2+ throughout Cardio Narrative: Tachycardic, regular rhythm. GI normal to inspection, nondistended, normoactive bowel sounds, soft to palpation and non-distended Extremity normal to inspection, full ROM and no pedal edema Skin no rashes or lesions noted Results Lab / Micro Data 11/21/23 11:25 11/21/23 11:25 Labs: Laboratory Results - last 24 hr 11/21/23 11:25: WBC 4.7, RBC 4.12 L, Hgb 11.5 L, Hct 35.5 L, MCV 86.2, MCH 27.9, MCHC 32.4, RDW Std Deviation 48.0 H, RDW Coeff of Melissa 15.4 H, Plt Count 84 L, MPV 12.2 H, Immature Gran % (Auto) 1.500 H, Neut % (Auto) 75.4 H, Lymph % (Auto) 4.7 L, Cochran % (Auto) 16.2 H, Eos % (Auto) 1.3, Baso % (Auto) 0.9, Absolute Neuts (auto) 3.5, Absolute Lymphs (auto) 0.22 L, Nucleated RBC % 0, PT Cancelled, INR Cancelled, APTT Cancelled, Sodium 140, Potassium 3.9, Chloride 106, Carbon Dioxide 30.0, Anion Gap 4 L, BUN 14, Creatinine 0.61, Estim Creat Clear Calc 64.25, Est GFR (MDRD) Af Amer 123, Est GFR (MDRD) Non-Af 102, BUN/Creatinine Ratio 23.0 H, Glucose 102, Calcium 9.2, Total Bilirubin 0.50, Direct Bilirubin 0.21, AST 12 L, ALT 16, Alkaline Phosphatase 127 H, Total Protein 6.5, Albumin 3.1 L, Globulin 3.4 11/21/23 12:00: Lactic Acid 1.2 11/21/23 12:30: PT 16.2 H, INR 1.3, APTT 34.2 11/21/23 13:20: Urine Color Yellow, Urine Clarity Cloudy, Urine pH 8.0, Ur Specific [place] 1.010, Urine Protein 15 H, Urine Glucose (UA) Normal, Urine Ketones Negative, Urine Occult Blood 150 H, Urine Nitrite Positive H, Urine Bilirubin Negative, Urine Urobilinogen Normal, Ur Leukocyte Esterase 100 H, Urine RBC 5-10 SEEN, Urine WBC 10-25 SEEN, Ur Squamous Epith Cells 0-5 SEEN, Urine Bacteria 4+, Urine Mucus RARE, Urine Opiates Screen NEGATIVE, Urine Methadone Screen NEGATIVE, Ur Barbiturates Screen NEGATIVE, Ur Phencyclidine Scrn NEGATIVE, Ur Amphetamines Screen NEGATIVE, MDMA (Ecstasy) Screen NEGATIVE, U Benzodiazepines Scrn NEGATIVE, Urine Cocaine Screen NEGATIVE, U Cannabinoids Screen NEGATIVE, Ur Drug Screen Comment Micro: Microbiology 11/21/23 11:25 Mucosa - Nasopharyngeal SARS-CoV-2, Influenza & RSV (PCR) - Final ABG Data ABG results: ABG 04/25/24 04/25/24 04/25/24 13:09 16:27 18:54 Specimen Type ART ART ART Sample Site L Radial L Radial L Radial pH 7.39 7.17 L* 7.30 L Bicarbonate Actual 28.5 H 26.3 H 22.4 Total CO2 30 29 24 Base Excess 4 H -2 -4 L O2 Saturation 93 L 89 L 95 O2 % 3.0 80.0 80.0 ABG pCO2 46.8 H 72.4 H* 45.2 H ABG pO2 69 L 73 L 82 Mike Test Positive Positive Positive Respiration Rate 14 16 O2 Delivery Device Cannula Adult Vent Adult Vent Vent Mode Not entered AC AC Tidal Volume 400.0 400.0 POC PEEP 5 5 Crit Call To/Read Back Yes Blood Gas Notified Whom [facility] Blood Gas Notified Time 16:30:06 Imaging Radiology Impression Chest X-Ray 11/21/23 12:28 IMPRESSION: No acute process Electronically Signed: Dylan Aguilar MD at 13:04 EDT Reading Location ID and State: [facility] / [place] , Service support , Brain CT 11/21/23 13:14 IMPRESSION: Chronic involutional changes of the brain. 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 The mass causes significant effacement and narrowing of the sinuses and the airway at approximately 80% of the total luminal diameter. A cluster of reactive lymph nodes are present at the periphery of the left focal cord/pharyngeal mass. 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 The mass causes significant effacement and narrowing of the sinuses and the airway at approximately 80% of the total luminal diameter. A cluster of reactive lymph nodes are present at the periphery of the left focal cord/pharyngeal mass. N.B. : Malachi Marie DO, confirmed on 11/21/2023 15:02:36 (ET) that the healthcare facility has received the radiology report. Electronically Signed: Dylan Aguilar MD at 14:43 EDT Reading Location ID and State: [facility] / [place] , Service support , Chest X-Ray 11/21/23 15:40 IMPRESSION: Endotracheal tube with the distal tip extending into the right mainstem bronchus and should be retracted approximately 3 cm. There is bilateral airspace disease present. Nasogastric tube in good position. Electronically Signed: Darien Escobar MD at 16:17 EDT , Chest X-Ray 11/21/23 15:45 IMPRESSION: Retraction of endotracheal tube with the distal tip now above the jennifer in good position. There is no change in the appearance of the chest. Electronically Signed: Darien Escobar MD at 16:24 EDT , Assessment & Plan Assessment/Plan (1) Acute airway obstruction: (2) Respiratory failure: (3) Acute UTI: (4) Cancer of thyroid: PLAN: Plan Patient is a 73-year-old female who presented to [facility] ED on 11/21/2023 with worsening shortness of breath and cough. 1. Acute hypoxic respiratory failure secondary to left-sided neck mass impinging on airway ? Admit under inpatient status to the ICU. Hotel Lobby Concierge consulted. Ventilator management per rotor balancer recs. Plan is for transfer to [facility] main once bed becomes available. Patient stable on low vent settings, primary reason for intubation was presumably cancer mass impinging on airway. 2. History of stage IV thyroid cancer ? Follows with Oncology at [facility]. See HPI for further details. CT soft tissue neck with IV contrast here showed a large heterogenously enhancing lobular mass arising from the left vocal cord measuring 3.3 x 2.9 x 4.1 cm. This mass was causing significant effacement and narrowing of the sinuses and the airway at approximately 80% of the total luminal diameter. Also noted to have a cluster of reactive lymph nodes present at the periphery of the left vocal cord/pharyngeal mass. Patient had surgical resection of the left thyroid lobe as well as part of an ~ 8 x 4 x 3 cm mass on the left vocal cord. She then completed about 4 weeks of radiation therapy to the mass. Unfortunately it does not appear to be improving with radiation therapy. We very likely can keep the patient stable here with the ET tube in, but patient will need transfer to [facility] and discussion with oncology there to determine if any other treatment options are available. 3. UTI ? UA on admit showed 100 leukocyte esterase, positive nitrites, 4+ bacteria. Urine culture and blood cultures pending. Urine culture from last month grew pansensitive E. coli. Given 1 dose of IV cefepime in the ED, will start ceftriaxone for now. Chronic medical conditions: ? Chronic debility: Resides in alf. PT/OT/case management consulted. ? Morbid obesity: BMI 42 on admit. Complicates hospital course, care and prognosis. ? Type 2 diabetes mellitus: Home regimen of insulin glargine 12 units at night, insulin aspart sliding scale insulin with meals, metformin, and Sitagliptin. Will start Lantus 10 units at night and Humalog sliding scale insulin with meals/tube feeds for now, adjust as needed. ? A-fib: Continue home Xarelto and diltiazem. ? GERD: Continue home PPI. ? Chronic pain/neuropathy: Continue home pregabalin. Holding home oxycodone while patient is intubated. ? COPD/asthma: Not on home O2. Continue home inhalers. ? Hypertension: Holding home spironolactone for now. ? Hyperlipidemia: Continue home statin. ? Chronic anemia: Hemoglobin 11.5 on admit, stable at baseline. ? Restless leg syndrome: Continue home pramipexole. ? Overactive bladder: Continue home vibegron. DVT prophylaxis: Xarelto CODE STATUS: Full code, verified Expected disposition: Transfer to [facility] Main Total clinical time spent by myself addressing the patient's medical issues, reviewing all the data, and collaborating with patient's care team: 75 minutes. Charges/Coding Visit Charges Inpatient E&M: 38415 Init Hosp L3
[2023-11-21] MEDS: Dexmedetomidine 1,000 mcg in 0.9% NS 240 mL 37.3 MCG CONT INF (22:27)
[2023-11-21] MEDS: Atorvastatin Calcium 10 MG Tablet PO (23:17)
[2023-11-21] MEDS: Pregabalin 50 MG Capsule 100 MG PO (23:17)
[2023-11-21] MEDS: Pramipexole Di-HCl 0.25 MG Tablet PO (23:17)
--- NOTE | 2023-11-21 23:47 | PCMCONS.TICU ---
HPI Consult Data Date of Consult: 11/21/23 HPI Narrative HPI Narrative: Ms. Bal is a 73 year-old female with HTN, HLD, DM2, Paroxysmal Afib, RILEY on CPAP, history of DVT, chart diagnoses of Asthma and COPD, chronic hypoxemic respiratory failure on 2L oxygen at home, and thyroid cancer who presents acute respiratory failure. Based on chart review she presented with altered mental status with dysarthria, shortness of breath, and cough. 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 She was thus intubated and sedated, and on my examination, she remains the same with stable vital signs. [facility] Medical History Acute ITP Anemia Anxiety and depression Arthritis Asthma Atrial fibrillation Back pain Benign hypertension Bilateral lower extremity edema BiPAP (biphasic positive airway pressure) dependence Cellulitis Cellulitis of left foot Cholelithiasis Chronic acquired lymphedema Chronic back pain Chronic kidney disease, stage 3b Chronic malnutrition Chronic pain Chronic stasis dermatitis of left lower extremity Congestive heart failure (CHF) COPD (chronic obstructive pulmonary disease) Decreased pedal pulses Depression Diabetes Diabetic ulcer of left foot Diabetic ulcer of right foot Diabetic ulcer of toe of left foot Dialysis patient DVT (deep venous thrombosis) Elephantiasis GERD (gastroesophageal reflux disease) Hammertoe of left foot Hammertoe of left foot Heartburn High cholesterol History of edema History of kidney stones History of pain when walking History of stress test HLD (hyperlipidemia) Hoarseness Hypertension Hypertensive chronic kidney disease with stage 1 through stage 4 chronic kidney disease, or unspecified chronic kidney disease Hypokalemia Increased BMI Insulin dependent diabetes mellitus Leg cramps Localized edema MRSA infection Non-smoker Nonhealing ulcer of left lower extremity with fat layer exposed Nonhealing ulcer of right lower extremity with fat layer exposed 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 Obstructive sleep apnea (adult) (pediatric) On home oxygen therapy Osteoporosis PAF (paroxysmal atrial fibrillation) Peripheral neuropathy Renal lithiasis Rheumatic fever Rheumatoid arthritis RLS (restless legs syndrome) Seasonal allergies Shortness of breath on exertion Sleep apnea Tachycardia Thyroid nodule Type 2 diabetes mellitus with diabetic polyneuropathy Ulcer of left foot with fat layer exposed Ulcer of right foot with fat layer exposed Venous insufficiency Venous stasis ulcer of right thigh with fat layer exposed Venous ulcer of left lower extremity with varicose veins Home Medications fluticasone propionate 50 mcg/actuation nasal spray,suspension 1 spray QHS allergies 02/16/14 [History Last Taken 11/20/23] acetaminophen 325 mg tablet 650 mg PO Q4H PRN Pain 09/09/21 [History Last Taken 10/08/22] bisacodyl 10 mg rectal suppository 10 mg RI DAILY PRN Constipation 09/09/21 [History Last Taken Unknown] multivitamin 1 tab PO DAILY supplement 09/09/21 [History Last Taken 12/23/22] omeprazole 40 mg capsule,delayed release 40 mg PO DAILY gerd 09/09/21 [History Last Taken 12/23/22] atorvastatin 10 mg tablet (Lipitor) 10 mg PO QHS cholesterol 09/09/22 [History Last Taken 11/20/23] meclizine 25 mg tablet 25 mg PO TID PRN Vertigo 09/09/22 [History Last Taken Unknown] fluticasone furoate 100 mcg/actuation blister powder for inhalation (Arnuity Ellipta) 1 inh inhalation QHS COPD 12/23/22 [History Last Taken 11/20/23] methenamine hippurate 1 gram tablet 1 g PO BID UTI 12/23/22 [History Last Taken 11/20/23] ferrous sulfate 325 mg (65 mg iron) tablet (iron) 325 mg PO QODAY supplement 30 days #0 tabs 12/27/22 [Rx Last Taken 11/20/23] sennosides 8.6 mg-docusate sodium 50 mg tablet (Stool Softener-Stimulant Laxative) 2 tab PO BID PRN PRN Constipation #0 tabs 12/27/22 [Rx Last Taken Unknown] spironolactone 25 mg tablet 25 mg PO DAILY diuretic 30 days #0 tabs 12/27/22 [Rx Last Taken 11/20/23] insulin glargine 100 unit/mL (3 mL) subcutaneous pen (Basaglar KwikPen U-100 Insulin) 12 unit subcut QHS diabetes 01/26/23 [History Last Taken 11/15/23] albuterol sulfate 2.5 mg/3 mL (0.083 %) solution for nebulization 2.5 mg (3 mL) inhalation Q2H PRN PRN Dyspnea, wheezing #0 mL 01/31/23 [Rx Last Taken 11/19/23] pramipexole 0.25 mg tablet 0.25 mg PO QHS #0 tabs 01/31/23 [Rx Last Taken 11/20/23] ascorbic acid (vitamin C) 500 mg tablet 500 mg PO BIDCM 30 days #60 tabs 05/06/23 [Rx Last Taken 11/20/23] albuterol sulfate 90 mcg/actuation aerosol inhaler 2 puff inhalation Q6H PRN shortness of breath or wheezing 09/03/23 [History Last Taken Unknown] cranberry 400 mg capsule 400 mg PO DAILY 09/03/23 [History Last Taken 11/20/23] glucagon 1 mg solution for injection 1 mg subcut Q20M PRN hypoglycemia 09/03/23 [History Last Taken Unknown] lactase 3,000 unit tablet 3,000 unit PO ONCE 09/03/23 [History Last Taken Unknown] loperamide 2 mg capsule (Imodium A-D) 2 mg PO Q6H PRN loose stool 09/03/23 [History Last Taken Unknown] magnesium hydroxide 400 mg/5 mL oral suspension (Milk of Magnesia) 30 ml PO Q4H PRN stomach upset 09/03/23 [History Last Taken Unknown] oxycodone 10 mg tablet 10 mg PO Q6H PRN pain 09/03/23 [History Last Taken 11/20/23] ropinirole 0.5 mg tablet 0.5 mg PO QHS 09/03/23 [History Last Taken 11/20/23] sitagliptin 100 mg tablet 100 mg PO DAILY 09/03/23 [History Last Taken 11/20/23] diltiazem HCl 360 mg capsule,extended release 24 hr 360 mg PO DAILY 10/20/23 [History Last Taken 11/20/23] insulin aspart U-100 100 unit/mL subcutaneous solution 1 sliding scale dose subcut 4X/DAY 10/20/23 [History Last Taken 11/21/23] metformin 1,000 mg tablet 1,000 mg PO DAILY 10/20/23 [History Last Taken 11/20/23] metformin 500 mg tablet 500 mg PO QHS 10/20/23 [History Last Taken 11/20/23] modafinil 200 mg tablet 200 mg PO DAILY 10/20/23 [History Last Taken Unknown] nitrofurantoin monohydrate/macrocrystals 100 mg capsule (Macrobid) 100 mg PO Q12H 7 days #14 caps 10/20/23 [Rx Last Taken 11/20/23] acetaminophen 650 mg rectal suppository 650 mg RI Q4H PRN pain 11/21/23 [History Last Taken 11/15/23] dextrose 40 % oral gel (Glucose Gel) 10 g PO PRN PRN hypoglycemia 11/21/23 [History Last Taken Unknown] docusate sodium 100 mg capsule (Colace) 100 mg PO BID 11/21/23 [History Last Taken 11/20/23] furosemide 40 mg tablet 40 mg PO DAILY 11/21/23 [History Last Taken Unknown] guaifenesin 100 mg/5 mL oral liquid (Adult Tussin Chest Congestion) 200 mg PO Q4H PRN congestion 11/21/23 [History Last Taken 11/20/23] lorazepam 0.5 mg tablet 0.5 mg PO MOTUWETHFR ANXIETY 11/21/23 [History Last Taken 11/21/23] mirabegron 50 mg tablet,extended release 24 hr (Myrbetriq) 100 mg PO DAILY 11/21/23 [History Last Taken 11/20/23] modafinil 100 mg tablet 100 mg PO 1200 11/21/23 [History Last Taken 11/20/23] nutrition tx glu intol,lac-free,soy-fiber 0.07 gram-0.8 kcal/mL liquid (Boost Glucose Control) 237 ml PO QHS 11/21/23 [History Last Taken 11/20/23] pregabalin 100 mg capsule 100 mg PO TID 11/21/23 [History Last Taken 11/20/23] rivaroxaban 10 mg tablet (Xarelto) 10 mg PO DAILY 11/21/23 [History Last Taken Unknown] sodium phosphates 19 gram-7 gram/118 mL enema (Enema) 118 ml RI DAILY PRN constipation 11/21/23 [History Last Taken Unknown] Allergy/AdvReac Type Severity Reaction Status Date / Time aspirin Allergy Severe Hives Verified 11/21/23 11:14 Penicillins Allergy Severe Anaphylaxis Verified 11/21/23 11:14 Sulfa (Sulfonamide Allergy Severe Anaphylaxis Verified 11/21/23 11:14 Antibiotics) latex Allergy Rash Verified 11/21/23 11:14 Family History Mother Heart disease Cancer pancreatic Father Heart disease CVA (cerebral vascular accident) Hypertension Cancer liver, lung Surgical History History of appendectomy History of cardiac catheterization History of cholecystectomy History of ERCP History of hysterectomy History of thyroidectomy Hx of dilation and curettage Hx of toe surgery S/P laparoscopic cholecystectomy Social History housing: skilled nursing Smoking Status: Never smoker alcohol intake: never substance use type: does not use additional social history: currently residing at [facility] ROS ROS Narrative UNABLE TO OBTAIN PATIENT IS INTUBATED AND SEDATED Objective Data Objective Data Vital Signs: Vital Signs Last response Temperature 37.8 C H 11/21/23 21:09 Temperature Source Temporal 11/21/23 21:09 Pulse Rate 104 H 11/21/23 22:46 Pulse Strength Normal (2+) 11/21/23 22:00 Respiratory Rate 23 H 11/21/23 22:46 Respiratory Effort Mechanically Ventilated 11/21/23 22:00 Respiratory Depth Normal 11/21/23 22:00 Respiratory Pattern Tachypnea 11/21/23 22:46 Blood Pressure 97/60 11/21/23 21:09 Blood Pressure Mean 72 11/21/23 21:09 Blood Pressure Source Monitor 11/21/23 21:09 Blood Pressure Position Semi-Fowlers 11/21/23 21:09 Blood Pressure Location Right Arm 11/21/23 21:09 Pulse Ox 92 11/21/23 22:46 Oxygen Delivery Method Mechanical Ventilator 11/21/23 22:00 Oxygen Flow Rate (L/min) 4 11/21/23 15:00 Fraction of Inspired Oxygen (FIO2) 40 11/21/23 22:46 I&O: I&O Last 24 Hours 11/20/23 11/21/23 11/21/23 23:59 11:59 23:59 Intake Total 3906.82 / 3906.82 Output Total 50 / 50 Balance 3856.82 / 3856.82 I&O: Total Stay 11/21/23 11:12 thru 11/21/23 23:00 Intake Total 3906.82 Output Total 50 Balance 3856.82 Current Meds Ordered / Administered: Current meds ordered / Administered Generic Name Dose Route Start Last Admin Trade Name Freq PRN Reason Stop Dose Admin Acetaminophen 650 mg 11/21/23 17:59 11/21/23 18:38 Acetaminophen 650 Mg/20 Ml Udc NG 650 mg Q6H PRN PRN Administration FEVER Acetaminophen 650 mg 11/21/23 20:44 Acetaminophen 325 Mg Tablet PO Q6H PRN PRN Pain 1-10 Or Fever>100.7 Albuterol Sulfate 2.5 mg 11/21/23 20:44 Albuterol 2.5 Mg/3 Ml Vial.Neb. INHALATION Q2H PRN PRN Dyspnea, wheezing Atorvastatin Calcium 10 mg 11/21/23 22:00 11/21/23 23:17 Atorvastatin Calcium 10 Mg Tablet PO 10 mg QHS JAIRO Administration Budesonide 0.5 mg 11/21/23 21:00 Budesonide Respules 0.5 Mg/2 Ml Ampul.Neb. INHALATION Q12H.RT JAIRO Chlorhexidine Gluconate 15 ml 11/22/23 10:00 Chlorhexidine 15 Ml PO BID JAIRO Chlorhexidine Gluconate 1 each 11/22/23 10:00 Chlorhexidine Gluc 2% Cloth 1 Each [place] TOPICAL DAILY JAIRO Diltiazem HCl 360 mg 11/22/23 10:00 Diltiazem Cd 180 Mg Capsule PO DAILY JAIRO Docusate Sodium 100 mg 11/21/23 22:00 11/21/23 23:03 Docusate Sodium 100 Mg Capsule PO Not Given BID JAIRO Ferrous Sulfate 325 mg 11/23/23 08:00 Ferrous Sulfate 325 Mg Tablet PO Q48@0800 JAIRO Fluticasone Propionate 1 spray 11/21/23 22:00 11/21/23 23:06 Fluticasone 0.05% 1 [place] Nasal.Sry NASAL Not Given QHS JAIRO Fentanyl 100 mls @ 5 mls/hr 11/21/23 15:35 11/21/23 23:00 CONT INF 125 mcg/hr UD JAIRO 12.5 mls/hr Titration Protocol 50 MCG/HR Sodium Chloride 250 mls @ 15 mls/hr 11/21/23 21:24 IV .[id number] PRN Additional IVPB Infusion Sodium Chloride 250 mls @ 15 mls/hr 11/21/23 21:24 IV .[id number] PRN Saline Flush Dexmedetomidine HCl 1,000 mcg/ 250 mls @ 12.425 mls/hr 11/21/23 22:10 11/21/23 23:00 Sodium Chloride CONT INF 1.5 mcg/kg/hr .Q20H8M JAIRO 37.3 mls/hr Titration Protocol 0.5 MCG/KG/HR Meropenem 1 gm/ Sodium 120 mls @ 33 mls/hr 11/21/23 23:30 Chloride IV Q8 JAIRO Modafinil 200 mg 11/22/23 10:00 Modafinil 200 Mg Tablet PO DAILY JAIRO Multivitamins 1 tablet 11/22/23 08:00 [facility],The[facility] Ondans[facility] HCl 4 mg 11/21/23 20:44 Ondansetron 4 Mg/2 Ml Vial IV Q8H PRN PRN NAUSEA/VOMITING Pantoprazole Sodium 40 mg 11/22/23 10:00 Pantoprazole Sodium 40 Mg Tablet PO DAILY [facility] Pramipexole Dihydrochloride 0.25 mg 11/21/23 22:00 11/21/23 23:17 Pramipexole Di-Hcl 0.25 Mg Tablet PO 0.25 mg QHS [facility] Administration Pregabalin 100 mg 11/21/23 22:00 11/21/23 23:17 Pregabalin 50 Mg Capsule PO 100 mg TID [facility] Administration Rivaroxaban 10 mg 11/22/23 10:00 Rivaroxaban 10 Mg Tablet PO DAILY JAIRO Senna/Docusate Sodium 2 tablet 11/21/23 20:44 Senna/Docusate Sodium 1 Tablet PO BID PRN PRN Constipation Sodium Chloride 10 - 40 ml 11/21/23 21:24 0.9% Saline Lock 10 Ml Syringe IV UD PRN SALINE FLUSH Physical Exam Const Constitutional Narrative: INTUBATED AND SEDATED HEENT normocephalic Mouth: oral and palatal mucosa normal Eyes PERRL and conjunctivae normal Neck no JVD Lymph Lymphatic: no lymphadenopathy noted Chest inspection of chest normal Resp normal respiratory effort Auscultation: clear to auscultation bilaterally Cardio regular rate and regular rhythm GI normal to inspection, nondistended, normoactive bowel sounds Auscultation: normoactive bowel sounds Extremity no clubbing, cyanosis or edema Skin no rashes or lesions noted Neuro Neuro Narrative: INTUBATED AND SEDATED Medical Records Data Attestation: I reviewed the patient's medical records Lab / Micro Data Attestation: I reviewed the patient's lab results. 11/21/23 11:25 11/21/23 11:25 Labs: Laboratory Results - last 24 hr 11/21/23 11:25: WBC 4.7, RBC 4.12 L, Hgb 11.5 L, Hct 35.5 L, MCV 86.2, MCH 27.9, MCHC 32.4, RDW Std Deviation 48.0 H, RDW Coeff of Melissa 15.4 H, Plt Count 84 L, MPV 12.2 H, Immature Gran % (Auto) 1.500 H, Neut % (Auto) 75.4 H, Lymph % (Auto) 4.7 L, [place] % (Auto) 16.2 H, Eos % (Auto) 1.3, Baso % (Auto) 0.9, Absolute Neuts (auto) 3.5, Absolute Lymphs (auto) 0.22 L, Nucleated RBC % 0, PT Cancelled, INR Cancelled, APTT Cancelled, Sodium 140, Potassium 3.9, Chloride 106, Carbon Dioxide 30.0, Anion Gap 4 L, BUN 14, Creatinine 0.61, Estim Creat Clear Calc 64.25, Est GFR (MDRD) Af Amer 123, Est GFR (MDRD) Non-Af 102, BUN/Creatinine Ratio 23.0 H, Glucose 102, Calcium 9.2, Total Bilirubin 0.50, Direct Bilirubin 0.21, AST 12 L, ALT 16, Alkaline Phosphatase 127 H, Total Protein 6.5, Albumin 3.1 L, Globulin 3.4 11/21/23 12:00: Lactic Acid 1.2 11/21/23 12:30: PT 16.2 H, INR 1.3, APTT 34.2 11/21/23 13:20: Urine Color Yellow, Urine Clarity Cloudy, Urine pH 8.0, Ur Specific Anderson 1.010, Urine Protein 15 H, Urine Glucose (UA) Normal, Urine Ketones Negative, Urine Occult Blood 150 H, Urine Nitrite Positive H, Urine Bilirubin Negative, Urine Urobilinogen Normal, Ur Leukocyte Esterase 100 H, Urine RBC 5-10 SEEN, Urine WBC 10-25 SEEN, Ur Squamous Epith Cells 0-5 SEEN, Urine Bacteria 4+, Urine Mucus RARE, Urine Opiates Screen NEGATIVE, Urine Methadone Screen NEGATIVE, Ur Barbiturates Screen NEGATIVE, Ur Phencyclidine Scrn NEGATIVE, Ur Amphetamines Screen NEGATIVE, MDMA (Ecstasy) Screen NEGATIVE, U Benzodiazepines Scrn NEGATIVE, Urine Cocaine Screen NEGATIVE, U Cannabinoids Screen NEGATIVE, Ur Drug Screen Comment Micro: Microbiology 11/21/23 11:25 Mucosa - Nasopharyngeal SARS-CoV-2, Influenza & RSV (PCR) - Final ABG Data ABG results: ABG 11/21/23 11/21/23 11/21/23 13:09 16:27 18:54 Specimen Type ART ART ART Sample Site L Radial L Radial L Radial pH 7.39 7.17 L* 7.30 L Bicarbonate Actual 28.5 H 26.3 H 22.4 Total CO2 30 29 24 Base Excess 4 H -2 -4 L O2 Saturation 93 L 89 L 95 O2 % 3.0 80.0 80.0 ABG pCO2 46.8 H 72.4 H* 45.2 H ABG pO2 69 L 73 L 82 Mike Test Positive Positive Positive Respiration Rate 14 16 O2 Delivery Device Cannula Adult Vent Adult Vent Vent Mode Not entered AC AC Tidal Volume 400.0 400.0 POC PEEP 5 5 Crit Call To/Read Back Yes Blood Gas Notified [facility] Blood Gas Notified Time 16:30:06 Imaging Radiology Impression Chest X-Ray 11/21/23 12:28 IMPRESSION: No acute process Electronically Signed: Dylan Aguilar MD at 13:04 EDT Reading Location ID and State: [facility] / [place] , Service support , Brain CT 11/21/23 13:14 IMPRESSION: Chronic involutional changes of the brain. 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 The mass causes significant effacement and narrowing of the sinuses and the airway at approximately 80% of the total luminal diameter. A cluster of reactive lymph nodes are present at the periphery of the left focal cord/pharyngeal mass. 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 The mass causes significant effacement and narrowing of the sinuses and the airway at approximately 80% of the total luminal diameter. A cluster of reactive lymph nodes are present at the periphery of the left focal cord/pharyngeal mass. N.B. : Malachi Marie DO, confirmed on 11/21/2023 15:02:36 (ET) that the healthcare facility has received the radiology report. Electronically Signed: Dylan Aguilar MD at 14:43 EDT , Chest X-Ray 11/21/23 15:40 IMPRESSION: Endotracheal tube with the distal tip extending into the right mainstem bronchus and should be retracted approximately 3 cm. There is bilateral airspace disease present. Nasogastric tube in good position. Electronically Signed: Darien Escobar MD at 16:17 EDT , Chest X-Ray 11/21/23 15:45 IMPRESSION: Retraction of endotracheal tube with the distal tip now above the jennifer in good position. There is no change in the appearance of the chest. Electronically Signed: Darien Escobar MD at 16:24 EDT Reading Location ID and State: [facility] / [place] Tel , Service support , Assessment and Plan . Assessment and plan: DRIPS Fentanyl Precedex ANTIBIOTICS & STEROIDS Vancomycin Merrem VENTILATOR AC/450/18/P5/40% ASSESSMENT 1. Acute Respiratory Failure 2. Vocal Cord Mass with Mass Effect 3. Pneumonia 4. Urinary Tract Infection 5. Hypertension 6. Hyperlipidemia 7. Type II Diabetes Mellitus 8. Obstructive Sleep Apnea on CPAP 9. Paroxysmal Atrial Fibrillation 10. Chronic Anemia 11. Chart Diagnoses of COPD and Asthma 12. Chronic Hypoxemic Respiratory Failure 13. History of Thyroid Cancer PLAN 1. Vent Check made; RR and Tv increased 2. CT with vocal cord mass with mass effect; will need further evaluation with ENT and Onc 3. Vanco + Merrem to cover PNA + UTI (recurrent ESBL); has a PCN allergy but has received PCN in prior admissions 4. Respiratory Viral Panel negative 5. Awaiting transfer to [facility] Critical Care Time: 60 Minutes The entirety of this encounter was done via Telemedicine with audio and visual Consent was not possible due to the patient being sedated and intubated Carmine Babb MD Pulmonary and Critical Care Medicine
[2023-11-22] VITALS (33 sets, daily range): BP systolic 100–131; BP diastolic 43–90; PULSE 105–122; RESP 18–29; TEMP 36.2–40.3; O2SAT 92–100; BMI 42.7
[2023-11-22] MEDS: Meropenem 1 GM in 0.9% Normal Saline (100mL MB+) 100 ML IV ×4 (00:24→20:45)
[2023-11-22] MEDS: 0.9% Saline Lock 10 ML Syringe IV (00:27)
--- NOTE | 2023-11-22 00:32 | PCM.RX.CS ---
Consult Antibiotic Management Pharmacy has been consulted to manage selected antibiotic: Vancomycin Type of Intervention Type of Consult: New start Suspected Infection Suspected Infection: Pneumonia Labs Labs: Sodium 140 mmol/L (136-145) 11/21/23 11:25 Potassium 3.9 mmol/L (3.5-5.1) 11/21/23 11:25 Chloride 106 mmol/L (98-107) 11/21/23 11:25 Carbon Dioxide 30.0 mmol/L (21.0-32.0) 11/21/23 11:25 Anion Gap 4 (5-15) L 11/21/23 11:25 BUN 14 mg/dL (7-18) 11/21/23 11:25 Creatinine 0.61 mg/dL (0.55-1.02) 11/21/23 11:25 Est GFR (MDRD) Af Amer 123 mL/min (>60) 11/21/23 11:25 Est GFR (MDRD) Non-Af 102 mL/min (>60) 11/21/23 11:25 BUN/Creatinine Ratio 23.0 RATIO (10-20) H 11/21/23 11:25 Glucose 102 mg/dL (74-106) 11/21/23 11:25 Microbiology Microbiology: Microbiology 11/21/23 11:25 Mucosa - Nasopharyngeal SARS-CoV-2, Influenza & RSV (PCR) - Final Dosing Weight Weight used for dosin.4 kg Estimated Creatinine Clearance Estimated Creatinine Clearance: 64 Goal Trough Goal Trough: 15-20 mcg/mL Pharmacy Plan for Drug Dosing Pharmacy Plan for Drug Dosing: Pharmacy Service will continue to monitor and adjust dosing as required. Follow-Up Labs Follow-Up Labs: Trough: Vancomycin Date/Time Labs Ordered Labs to be done on [date and time ordered]: 11/23/23 @0230
[2023-11-22] MEDS: Acetaminophen 650 MG/20 ML UDC GT ×3 (01:50→15:08)
[2023-11-22] MEDS: fentaNYL drip 100 ML 10 MCG CONT INF (03:02)
[2023-11-22] MEDS: Vancomycin HCl 1,250 MG in 0.9% Normal Saline (250mL Bag) 250 ML 167 MG IV ×2 (03:44→17:35)
[2023-11-22 04:47] LABS: Absolute Lymphocyte Count 0.24 X10^3/uL (0.83-4.51); Absolute Neutrophil Count 5.3 X10^3/uL (2.0-7.7); Basophil# 0.02 X10^3/uL; Basophil% 0.3 % (0-1); Eosinophil# 0.02 X10^3/uL; Eosinophils% 0.3 % (0-5); Hematocrit 33.8 % (37-47); Hemoglobin 10.8 g/dL (12.0-15.0); Lymphocyte # 0.24 X10^3/ul (0.83-4.51); Lymphocyte % 3.8 % (19-41); Mean Corpuscular Hgb 28.2 pg (27.0-32.0); Mean Corpuscular Volume 88.3 fL (81-99); Monocyte% 11.1 % (0-10); NRBC Flagged by Analyzer 0 % (0-5); Neutrophil # 5.28 X10^3/uL (2.7-7.7); Neutrophil % 84.2 % (47-70); POSITIVE COUNT YES; POSITIVE DIFFERENTIAL YES; Platelet Count 58 K/mm3 (150-450); RBC Distribution Width CV 15.4 % (11.6-14.6); RBC Distribution Width SD 49.6 fl (35.1-43.9); Red Blood Count 3.83 M/mm3 (4.2-5.4); White Blood Count 6.3 K/mm3 (4.4-11.0)
[2023-11-22] MEDS: Dexmedetomidine 1,000 mcg in 0.9% NS 240 mL 37.3 MCG CONT INF (05:10)
[2023-11-22 05:34] LABS: ALB/GLOB Ratio 0.7 RATIO (0.9-2.4); AST(SGOT) 19 U/L (15-37); Alanine Aminotransfer ALT/SGPT 14 U/L (13-56); Albumin, Serum 2.3 g/dL (3.2-5.0); Alkaline Phosphatase 103 U/L (45-117); Anion Gap 10 (5-15); BUN 20 mg/dL (7-18); BUN/Creat Ratio 25.1 RATIO (10-20); Calcium,Total 8.5 mg/dL (8.5-10.1); Chloride 115 mmol/L (98-107); EST Glomerular Filtration Rate 75 mL/min (>60); Est Glom Filt Rate - Afr Amer 90 mL/min (>60); Estimated Creatinine Clearance 64.32 ml/min; Globulin 3.2 g/dL (2.2-4.2); Glucose 107 mg/dL (74-106); Potassium 3.8 mmol/L (3.5-5.1); Protein, Total 5.5 g/dL (6.4-8.2); Sodium Level 145 mmol/L (136-145)
--- NOTE | 2023-11-22 05:37 | RAD_ITS ---
EXAM: XR CHEST, 1 VIEW CLINICAL INDICATION: ETT Placement TECHNIQUE: Frontal view of the chest. 3:59 AM. COMPARISON: Previous chest radiographs of 11/21/2023. FINDINGS: LUNGS AND PLEURAL SPACES: There is been interval development of dense retrocardiac infiltrate with air bronchograms, most likely partial left lower lobe atelectasis. Left lateral costophrenic angle is now minimally blunted by small developing left pleural effusion. Patchy bilateral alveolar pulmonary infiltrates are again noted. Patchy airspace disease in the left perihilar region and the left upper lung is minimally improved. Patchy airspace disease previously seen in the right perihilar region and right infrahilar region has partially cleared. Patchy airspace disease in the right upper lobe shows minimal improvement. No right pleural effusion. No pneumothorax. HEART: Heart size is mildly enlarged. Pulmonary vascular markings are obscured. MEDIASTINUM: Stable mild elongation of the thoracic aorta. BONES/JOINTS: Thoracic degenerative spurring. Minimal thoracic dextroscoliosis. SOFT TISSUES: Surgical clips again noted within the left lower neck. TUBES, LINES AND DEVICES: ET tube has been repositioned; tip of the ET tube is now projected 2 cm above the jennifer, in satisfactory position. The ET tube no longer extension of the right stem bronchus. NG tube is in place extending into the stomach; the tube can be followed into the gastric mid body of the distal tip of the tube is not included on current radiograph. RAD/Chest 1 View (Portable) IMPRESSION: Satisfactory ET tube positioning. NG tube in place, extending into the stomach. Interval development of dense retrocardiac infiltrate, most likely partial left lower lobe atelectasis. Patchy bilateral airspace disease shows interval improvement since the study of one day ago, and is most likely due to improving pulmonary edema in view of rapid interval change. Electronically Signed: Brandon Lee MD at 5:37 EDT ,
[2023-11-22 05:39] LABS: Base Excess -6 mmol/L (-2 to +2); Blood Gas Specimen Type ART; Mode AC; O2 Delivery Device Adult Vent; PO2 65 mmHG (75-100); RR 18; SITE L Radial; SO2 93 % (95-99); Total Carbon Dioxide 20 mmol/L; pCO2 31.2 mmHg (35-45); pH 7.39 (7.35-7.45)
[2023-11-22 05:52] LABS: Differential Indicated SCAN CRITERIA MET
[2023-11-22 06:01] LABS: Differential Comment SCANNED
[2023-11-22] MEDS: Pregabalin 50 MG Capsule 100 MG GT (06:47)
[2023-11-22] MEDS: Budesonide Respules 0.5 MG/2 ML AMPUL.NEB. INHALATION ×2 (07:14→18:52)
--- NOTE | 2023-11-22 07:38 | PCM.PN.INT ---
Assessment & Plan Assessment/Plan (1) Acute airway obstruction: (2) Respiratory failure: (3) Acute UTI: (4) Sepsis: (5) Cancer of thyroid: PLAN: Plan RECOMMENDATIONS: 1. Continue assist-control mode mechanical ventilation. Wean FiO2 and PEEP for saturations greater than 90%. 2. Continue Precedex and fentanyl for sedation. 3. Broad-spectrum antimicrobials, pending infectious workup. 4. Continue appropriate GI prophylaxis. 5. The patient will require further evaluation of her vocal cord mass by ENT. 6. Transfer to [facility] is pending. IMPRESSIONS: 1. 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 The patient has received all of her oncology care at [facility]. She was ultimately intubated in the emergency department as a consequence of the aforementioned. The patient will be continued on invasive mechanical ventilatory support, with a goal to wean FiO2 and PEEP to maintain saturations at or above 90%. Ultimately, the patient will require additional evaluation by ENT. She is currently awaiting transfer to [facility] for further management. 2. 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 Await transfer to [facility] for ENT evaluation. 3. Sepsis Clinical suspicion for underlying pneumonia versus urinary tract source of infection. Continue antimicrobials as ordered, pending finalized culture data. The patient remains hemodynamically stable. 4. History of thyroid cancer/questionable history of COPD/paroxysmal atrial fibrillation/obstructive sleep apnea/diabetes mellitus/obesity Complicates care, management, recovery and prognosis. Continue supportive care as noted above. TIME: 32 minutes of critical care time, independent of procedures, was spent addressing the patient's respiratory failure with hypoxemia and hypercapnia, vocal cord mass leading to airway encroachment, sepsis, review of all data and collaboration with the care team. Subjective Subjective The patient was seen and examined at the bedside this morning. Events from the last 24 hours have been reviewed. The patient has remained febrile overnight. She remains on assist-control mode mechanical ventilation with an FiO2 requirement of 40%. The patient is documented to be overall net +4 L for the hospitalization. The patient remains thrombocytopenic with a platelet count of 58,000. Her last ABG obtained this morning demonstrated a pH of 7.39 with a pCO2 of 31 and pO2 of 65. The patient remains sedated on fentanyl and Precedex. She remains on broad-spectrum antimicrobials. Although she has been accepted as a transfer to [facility], we are still awaiting bed availability. Objective Data Objective Data The patient's most recent lab work, culture data and imaging studies have all been personally reviewed. 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 Blood, urine and sputum cultures are pending. Vital Signs: Vital Signs Temp Pulse Resp BP Pulse Ox O2 Del Method O2 Flow Rate 97.1 F L 109 H 24 H 123/60 H 93 Mechanical Ventilator 4 11/22/23 04:00 11/22/23 07:16 11/22/23 07:16 11/22/23 07:00 11/22/23 07:16 11/22/23 07:00 11/21/23 15:00 FiO2 40 11/22/23 07:16 Oxygen Flow Rate (L/min) 4 Oxygen Delivery Method Mechanical Ventilator Weight: 219 lb 2.232 oz Body Mass Index (BMI) 42.7 Intake & Output: Intake and Output for Last 24 Hours 11/20/23 11/21/23 11/22/23 23:59 23:59 23:59 Intake Total 3906.82 / 4016.62 870.36 / 870.36 Output Total 50 / 175 650 / 650 Balance 3856.82 / 3841.62 220.36 / 220.36 Lab / Micro Data Attestation: I reviewed the patient's lab results. 11/22/23 04:30 11/22/23 04:30 Labs: Laboratory Results - last 24 hr 11/21/23 11:25: WBC 4.7, RBC 4.12 L, Hgb 11.5 L, Hct 35.5 L, MCV 86.2, MCH 27.9, MCHC 32.4, RDW Std Deviation 48.0 H, RDW Coeff of Melissa 15.4 H, Plt Count 84 L, MPV 12.2 H, Immature Gran % (Auto) 1.500 H, Neut % (Auto) 75.4 H, Lymph % (Auto) 4.7 L, Mccreary % (Auto) 16.2 H, Eos % (Auto) 1.3, Baso % (Auto) 0.9, Absolute Neuts (auto) 3.5, Absolute Lymphs (auto) 0.22 L, Nucleated RBC % 0, PT Cancelled, INR Cancelled, APTT Cancelled, Sodium 140, Potassium 3.9, Chloride 106, Carbon Dioxide 30.0, Anion Gap 4 L, BUN 14, Creatinine 0.61, Estim Creat Clear Calc 64.25, Est GFR (MDRD) Af Amer 123, Est GFR (MDRD) Non-Af 102, BUN/Creatinine Ratio 23.0 H, Glucose 102, Calcium 9.2, Total Bilirubin 0.50, Direct Bilirubin 0.21, AST 12 L, ALT 16, Alkaline Phosphatase 127 H, Total Protein 6.5, Albumin 3.1 L, Globulin 3.4 11/21/23 12:00: Lactic Acid 1.2 11/21/23 12:30: PT 16.2 H, INR 1.3, APTT 34.2 11/21/23 13:20: Urine Color Yellow, Urine Clarity Cloudy, Urine pH 8.0, Ur Specific [place] 1.010, Urine Protein 15 H, Urine Glucose (UA) Normal, Urine Ketones Negative, Urine Occult Blood 150 H, Urine Nitrite Positive H, Urine Bilirubin Negative, Urine Urobilinogen Normal, Ur Leukocyte Esterase 100 H, Urine RBC 5-10 SEEN, Urine WBC 10-25 SEEN, Ur Squamous Epith Cells 0-5 SEEN, Urine Bacteria 4+, Urine Mucus RARE, Urine Opiates Screen NEGATIVE, Urine Methadone Screen NEGATIVE, Ur Barbiturates Screen NEGATIVE, Ur Phencyclidine Scrn NEGATIVE, Ur Amphetamines Screen NEGATIVE, MDMA (Ecstasy) Screen NEGATIVE, U Benzodiazepines Scrn NEGATIVE, Urine Cocaine Screen NEGATIVE, U Cannabinoids Screen NEGATIVE, Ur Drug Screen Comment 11/22/23 04:30: WBC 6.3, RBC 3.83 L, Hgb 10.8 L, Hct 33.8 L, MCV 88.3, MCH 28.2, MCHC 32.0, RDW Std Deviation 49.6 H, RDW Coeff of Melissa 15.4 H, Plt Count 58 L, MPV 12.0, Immature Gran % (Auto) 0.300, Neut % (Auto) 84.2 H, Lymph % (Auto) 3.8 L, Mccreary % (Auto) 11.1 H, Eos % (Auto) 0.3, Baso % (Auto) 0.3, Absolute Neuts (auto) 5.3, Absolute Lymphs (auto) 0.24 L, Nucleated RBC % 0, Differential Comment SCANNED, Sodium 145, Potassium 3.8, Chloride 115 H, Carbon Dioxide 20.0 L, Anion Gap 10, BUN 20 H, Creatinine 0.80, Estim Creat Clear Calc 64.32, Est GFR (MDRD) Af Amer 90, Est GFR (MDRD) Non-Af 75, BUN/Creatinine Ratio 25.1 H, Glucose 107 H, Calcium 8.5, Total Bilirubin 0.80, AST 19, ALT 14, Alkaline Phosphatase 103, Total Protein 5.5 L, Albumin 2.3 L, Globulin 3.2, Albumin/Globulin Ratio 0.7 L Micro: Microbiology 11/21/23 11:25 Mucosa - Nasopharyngeal SARS-CoV-2, Influenza & RSV (PCR) - Final ABG Data ABG results: ABG 11/21/23 11/21/23 11/21/23 13:09 16:27 18:54 Specimen Type ART ART ART Sample Site L Radial L Radial L Radial pH 7.39 7.17 L* 7.30 L Bicarbonate Actual 28.5 H 26.3 H 22.4 Total CO2 30 29 24 Base Excess 4 H -2 -4 L O2 Saturation 93 L 89 L 95 O2 % 3.0 80.0 80.0 ABG pCO2 46.8 H 72.4 H* 45.2 H ABG pO2 69 L 73 L 82 Mike Test Positive Positive Positive Respiration Rate 14 16 O2 Delivery Device Cannula Adult Vent Adult Vent Vent Mode Not entered AC AC Tidal Volume 400.0 400.0 POC PEEP 5 5 Crit Call To/Read Back Yes Blood Gas Notified Whom hansa Blood Gas Notified Time 16:30:06 11/22/23 05:34 Specimen Type ART Sample Site L Radial pH 7.39 Bicarbonate Actual 19.0 L Total CO2 20 Base Excess -6 L O2 Saturation 93 L O2 % 40.0 ABG pCO2 31.2 L ABG pO2 65 L Mike Test N/A Respiration Rate 18 O2 Delivery Device Adult Vent Vent Mode AC Tidal Volume 450.0 POC PEEP Crit Call To/Read Back Blood Gas Notified Whom Blood Gas Notified Time Radiography Diagnostic Testing: Radiology Impression Chest X-Ray 11/21/23 12:28 IMPRESSION: No acute process Electronically Signed: Dylan Aguilar MD at 13:04 EDT Reading Location ID and State: [facility] / [place] , Service support , Brain CT 11/21/23 13:14 IMPRESSION: Chronic involutional changes of the brain. Electronically Signed: Dylan Aguilar MD at 14:21 EDT Reading Location ID and State: [facility] / [place] , Service support , Soft Tissue Neck CT 11/21/23 13:14 IMPRESSION: Malignant mass arising from the left focal cord and extending superiorly into the pharynx 1. 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 The mass causes significant effacement and narrowing of the sinuses and the airway at approximately 80% of the total luminal diameter. A cluster of reactive lymph nodes are present at the periphery of the left focal cord/pharyngeal mass. Electronically Signed: Dylan Aguilar MD at 14:43 EDT Reading Location ID and State: [id number] [facility] , Service support , ADDENDUM: 11/21/23 1509 IMPRESSION: Malignant mass arising from the left focal cord and extending superiorly into the pharynx 1. 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 The mass causes significant effacement and narrowing of the sinuses and the airway at approximately 80% of the total luminal diameter. A cluster of reactive lymph nodes are present at the periphery of the left focal cord/pharyngeal mass. N.B. : Malachi Marie DO, confirmed on 11/21/2023 15:02:36 (ET) that the healthcare facility has received the radiology report. Electronically Signed: Dylan Aguilar MD at 14:43 EDT , Chest X-Ray 11/21/23 15:40 IMPRESSION: Endotracheal tube with the distal tip extending into the right mainstem bronchus and should be retracted approximately 3 cm. There is bilateral airspace disease present. Nasogastric tube in good position. Electronically Signed: Darien Escobar MD at 16:17 EDT , Chest X-Ray 11/21/23 15:45 IMPRESSION: Retraction of endotracheal tube with the distal tip now above the jennifer in good position. There is no change in the appearance of the chest. Electronically Signed: Darien Escobar MD at 16:24 EDT , Chest X-Ray 11/22/23 05:37 IMPRESSION: Satisfactory ET tube positioning. NG tube in place, extending into the stomach. Interval development of dense retrocardiac infiltrate, most likely partial left lower lobe atelectasis. Patchy bilateral airspace disease shows interval improvement since the study of one day ago, and is most likely due to improving pulmonary edema in view of rapid interval change. Electronically Signed: Brandon Lee MD at 5:37 EDT , Physical Exam Const Constitutional Narrative: Intubated, sedated and mechanically ventilated. No ventilator dyssynchrony noted. HEENT normocephalic and head/scalp atraumatic Mouth: endotracheal tube in place and OG tube in place Eyes PERRL and EOMs intact bilaterally Neck supple General: trachea midline Chest inspection of chest normal Resp normal respiratory effort Auscultation: Negative for rales, rhonchi or wheezes Cardio S1 normal heart sound and S2 normal heart sound Rate: tachycardic GI normal to inspection, nondistended, normoactive bowel sounds Extremity no clubbing, cyanosis or edema Skin no rashes or lesions noted Neuro Sensorium / Orientation: sedated on vent Charges/Coding Procedures Hospitalists Procedures: 51906 Critical Care 1st Hr
[2023-11-22] MEDS: Ferrous Sulfate 300 MG/5 ML UDC 325 MG GT (08:31)
[2023-11-22] MEDS: Docusate Sodium 100 MG/10 ML UDC GT ×2 (08:32→20:44)
[2023-11-22] MEDS: Lansoprazole 15 MG Capsule.DR 30 MG GT (08:32)
[2023-11-22] MEDS: Chlorhexidine 15 ML PO ×2 (08:32→20:44)
--- NOTE | 2023-11-22 09:32 | CASEMGMT ---
Social Work- [facility] message sent to [facility] in regards to plans to transfer pt to [facility]. Clinical updates also sent via [email or web address]. SHARATH Lu
[2023-11-22] MEDS: fentaNYL drip 100 ML 15 MCG CONT INF (10:49)
[2023-11-22 11:47] LABS: Bedside Glucose 133 mg/dL (74-106)
[2023-11-22] MEDS: Dexmedetomidine 1,000 mcg in 0.9% NS 240 mL 27.3 MCG CONT INF (12:27)
[2023-11-22] MEDS: Albuterol 2.5 MG/3 ML VIAL.NEB. INHALATION (12:56)
[2023-11-22] MEDS: Propofol 10MG/Ml 1,000 MG/100 ML Bottle 6 MG CONT INF (13:38)
[2023-11-22 14:39] LABS: CPK Total, Creatine Kinase 46 U/L (26-192); Triglycerides 98 mg/dL
--- NOTE | 2023-11-22 15:25 | CHAPLAIN ---
Type of Pastoral Visit _x__ Initial Visit ___ Follow-up Visit ___ On-call Visit ___ General Patient Visit ___ Spiritual Assessment ___ Family Conference ___ Bereavement ___ Rapid Response ___ Code Blue ___ Other (describe below) Pastoral Care Referral From __x_ Patient ___ Family ___ Nurse ___ Physician ___ Erp Manager ___ Inventory Checker ___ Other (describe below) Sacrament/Intervention ___ Active listening ___ Anointing ___ Protestant ___ Bereavement ___ Communion ___ Trini exploration ___ ___ Life review _x__ Prayer ___ Reconciliation ___ Sacrament of Sick ___ Supportive presence ___ Wedding ___ Other (describe below) Pastoral Comments patient was intubated; wrote a note and led in a prayer for the patient who has been met before and who welcomes spiritual care; pt became more alert and active as she heard the prayer; RN came to attend to the patient and remind her to breathe slowly
[2023-11-22] MEDS: fentaNYL drip 100 ML 17.5 MCG CONT INF (16:29)
--- NOTE | 2023-11-22 16:29 | PCM.PN.HOSP ---
Reason for Visit Reason for Visit: Diagnoses Sepsis, unspecified organism (11/21/23) Malignant neoplasm of thyroid gland (11/21/23) Respiratory failure, unspecified, unspecified whether with hypoxia or hypercapnia (11/21/23) Other specified respiratory disorders (11/21/23) Urinary tract infection, site not specified (11/21/23) Subjective Subjective Patient was seen and examined today, she is sedated and on the ventilator at this time, she appears in no distress. Patient's white blood cell count today was 6.3 and chemistry profile today was essentially normal. We are still awaiting a bed at [facility]. Objective Data Objective Data Vital Signs: Vital Signs Temp Pulse Resp BP Pulse Ox O2 Del Method O2 Flow Rate 100.1 F H 112 H 18 108/46 L 97 Mechanical Ventilator 4 11/22/23 15:00 11/22/23 16:00 11/22/23 16:00 11/22/23 16:00 11/22/23 16:00 11/22/23 16:00 11/21/23 15:00 FiO2 40 11/22/23 16:00 Oxygen Flow Rate (L/min) 4 Oxygen Delivery Method Mechanical Ventilator Weight: 99.4 kg Body Mass Index (BMI) 42.7 Intake & Output: Intake and Output for Last 24 Hours 11/20/23 11/21/23 11/22/23 23:59 23:59 23:59 Intake Total 3906.82 / 4016.62 1499.78 / 1499.78 Output Total 50 / 175 925 / 925 Balance 3856.82 / 3841.62 574.78 / 574.78 Lab / Micro Data 11/22/23 04:30 11/22/23 04:30 Labs: Laboratory Results - last 24 hr 11/22/23 04:30: WBC 6.3, RBC 3.83 L, Hgb 10.8 L, Hct 33.8 L, MCV 88.3, MCH 28.2, MCHC 32.0, RDW Std Deviation 49.6 H, RDW Coeff of Melissa 15.4 H, Plt Count 58 L, MPV 12.0, Immature Gran % (Auto) 0.300, Neut % (Auto) 84.2 H, Lymph % (Auto) 3.8 L, [place] % (Auto) 11.1 H, Eos % (Auto) 0.3, Baso % (Auto) 0.3, Absolute Neuts (auto) 5.3, Absolute Lymphs (auto) 0.24 L, Nucleated RBC % 0, Differential Comment SCANNED, Sodium 145, Potassium 3.8, Chloride 115 H, Carbon Dioxide 20.0 L, Anion Gap 10, BUN 20 H, Creatinine 0.80, Estim Creat Clear Calc 64.32, Est GFR (MDRD) Af Amer 90, Est GFR (MDRD) Non-Af 75, BUN/Creatinine Ratio 25.1 H, Glucose 107 H, Calcium 8.5, Total Bilirubin 0.80, AST 19, ALT 14, Alkaline Phosphatase 103, Total Creatine Kinase 46, Total Protein 5.5 L, Albumin 2.3 L, Globulin 3.2, Albumin/Globulin Ratio 0.7 L, Triglycerides 98 11/22/23 10:50: POC Glucose 133 H Micro: Microbiology 11/21/23 13:20 Urine, Clean Catch Urine Culture - Preliminary Gram negative manjinder 11/21/23 16:39 Sputum, Induced/Lukens Gram Stain - Final 11/21/23 11:25 Mucosa - Nasopharyngeal SARS-CoV-2, Influenza & RSV (PCR) - Final ABG Data ABG results: ABG 11/21/23 11/21/23 11/22/23 16:27 18:54 05:34 Specimen Type ART ART ART Sample Site L Radial L Radial L Radial pH 7.17 L* 7.30 L 7.39 Bicarbonate Actual 26.3 H 22.4 19.0 L Total CO2 29 24 20 Base Excess -2 -4 L -6 L O2 Saturation 89 L 95 93 L O2 % 80.0 80.0 40.0 ABG pCO2 72.4 H* 45.2 H 31.2 L ABG pO2 73 L 82 65 L Mike Test Positive Positive N/A Respiration Rate 14 16 18 O2 Delivery Device Adult Vent Adult Vent Adult Vent Vent Mode AC AC AC Tidal Volume 400.0 400.0 450.0 POC PEEP 5 5 Crit Call To/Read Back Yes Blood Gas Notified Whom [facility] Blood Gas Notified Time 16:30:06 Radiography Diagnostic Testing: Radiology Impression Chest X-Ray 11/22/23 05:37 IMPRESSION: Satisfactory ET tube positioning. NG tube in place, extending into the stomach. Interval development of dense retrocardiac infiltrate, most likely partial left lower lobe atelectasis. Patchy bilateral airspace disease shows interval improvement since the study of one day ago, and is most likely due to improving pulmonary edema in view of rapid interval change. Electronically Signed: Brandon Lee MD at 5:37 EDT , Physical Exam Const no apparent distress Constitutional Narrative: Patient is sedated and on the ventilator General Appearance: cooperative, well kempt and well developed HEENT normocephalic, head/scalp atraumatic and moist oral mucous membranes Eyes PERRL, EOMs intact bilaterally and conjunctivae normal Neck no JVD General: trachea midline Resp normal respiratory effort, no retractions, no use of accessory muscles and clear to auscultation bilaterally Auscultation: Negative for rales, rhonchi or wheezes Cardio regular rate, regular rhythm, S1 normal heart sound, S2 normal heart sound, no murmurs, no rub and no gallops GI normal to inspection, nondistended, normoactive bowel sounds, soft to palpation, non-tender and non-distended Extremity no clubbing, cyanosis or edema Skin no rashes or lesions noted General Skin Exam: no breakdown Neuro CN's II-XII intact bilaterally Neuro Narrative: Patient is sedated and on the ventilator Psych Psych Narrative: Patient is sedated and on the ventilator Assessment & Plan Assessment/Plan (1) Acute airway obstruction: PLAN: Plan 1. Acute hypoxic respiratory failure secondary to left-sided airway obstruction from neck mass suspected to be thyroid cancer-again patient will be sedated and kept on the ventilator, she will need transfer to [facility] for further treatment when a bed is available. Pulmonary medicine is participating in her care. #2 airway obstruction of the neck secondary to thyroid cancer #3 urinary tract infection-patient remains on Rocephin #4 type 2 diabetes-patient's blood sugars will be monitored, sliding scale insulin will be given as needed Total clinical time spent by myself addressing the patient's medical issues, reviewing all of her data, and collaborating with patient's care team: 35 minutes Charges/Coding Visit Charges Inpatient E&M: 91522 Subs Hosp L2
[2023-11-22] MEDS: Insulin Lispro 100 UNIT/ML INSULN.PEN SC ×2 (17:43→23:48)
[2023-11-22 17:57] LABS: Bedside Glucose 168 mg/dL (74-106)
[2023-11-22] MEDS: Propofol 10MG/Ml 1,000 MG/100 ML Bottle 14.9 MG CONT INF (20:43)
[2023-11-22] MEDS: Pramipexole Di-HCl 0.25 MG Tablet GT (20:45)
[2023-11-22] MEDS: Atorvastatin Calcium 10 MG Tablet GT (20:45)
[2023-11-22] MEDS: fentaNYL drip 100 ML 20 MCG CONT INF (22:30)
--- NOTE | 2023-11-22 23:18 | NURSING ---
Called [facility] this evening due to change in code status made earlier today. They are signing off at this time due to pt's intact neuro status currently.
[2023-11-23] VITALS (33 sets, daily range): BP systolic 100–141; BP diastolic 44–69; PULSE 99–123; RESP 17–20; TEMP 36.6–37.5; O2SAT 84–97; BMI 43.2
[2023-11-23] MEDS: Propofol 10MG/Ml 1,000 MG/100 ML Bottle 26.8 MG CONT INF ×2 (00:20→03:47)
[2023-11-23 01:06] LABS: Bedside Glucose 171 mg/dL (74-106)
[2023-11-23] MEDS: fentaNYL drip 100 ML 20 MCG CONT INF ×4 (03:47→20:08)
[2023-11-23] MEDS: 0.9% Saline Lock 10 ML Syringe IV ×2 (03:48→05:21)
--- NOTE | 2023-11-23 04:00 | NURSING ---
Vanc trough late due to difficulty obtaining blood sample. Pharmacy aware.
[2023-11-23 04:07] LABS: Absolute Lymphocyte Count 0.25 X10^3/uL (0.83-4.51); Absolute Neutrophil Count 3.4 X10^3/uL (2.0-7.7); Basophil# 0.01 X10^3/uL; Basophil% 0.2 % (0-1); Eosinophil# 0.14 X10^3/uL; Eosinophils% 3.2 % (0-5); Hematocrit 32.2 % (37-47); Hemoglobin 10.2 g/dL (12.0-15.0); Lymphocyte # 0.25 X10^3/ul (0.83-4.51); Lymphocyte % 5.8 % (19-41); Mean Corp Hgb Conc 31.7 g/dL (32-36); Mean Corpuscular Hgb 27.9 pg (27.0-32.0); Mean Corpuscular Volume 88.2 fL (81-99); Mean Platelet Vol. 11.6 fl (6.2-12.0); Monocyte# 0.55 X10^3/uL; Monocyte% 12.7 % (0-10); NRBC Flagged by Analyzer 0 % (0-5); Neutrophil # 3.37 X10^3/uL (2.7-7.7); Neutrophil % 77.6 % (47-70); POSITIVE COUNT YES; POSITIVE DIFFERENTIAL YES; Platelet Count 64 K/mm3 (150-450); RBC Distribution Width CV 15.6 % (11.6-14.6); RBC Distribution Width SD 50.7 fl (35.1-43.9); Red Blood Count 3.65 M/mm3 (4.2-5.4); White Blood Count 4.3 K/mm3 (4.4-11.0)
[2023-11-23 04:15] LABS: International Normalized Ratio 1.4; Partial Thromboplast Time 30.5 Seconds (24.1-36.2)
[2023-11-23 04:27] LABS: ALB/GLOB Ratio 0.6 RATIO (0.9-2.4); AST(SGOT) 28 U/L (15-37); Alanine Aminotransfer ALT/SGPT 20 U/L (13-56); Alkaline Phosphatase 92 U/L (45-117); Anion Gap 5 (5-15); BUN 23 mg/dL (7-18); Calcium,Total 8.6 mg/dL (8.5-10.1); Chloride 116 mmol/L (98-107); Creatinine, Serum 0.72 mg/dL (0.55-1.02); EST Glomerular Filtration Rate 84 mL/min (>60); Est Glom Filt Rate - Afr Amer 102 mL/min (>60); Estimated Creatinine Clearance 64.67 ml/min; Globulin 3.3 g/dL (2.2-4.2); Glucose 178 mg/dL (74-106); Potassium 4.1 mmol/L (3.5-5.1); Protein, Total 5.3 g/dL (6.4-8.2); Sodium Level 146 mmol/L (136-145)
[2023-11-23 04:28] LABS: Vancomycin, Trough Level 19.6 ug/mL (5.0-15.0)
--- NOTE | 2023-11-23 04:41 | PCM.RX.CS ---
Consult Antibiotic Management Pharmacy has been consulted to manage selected antibiotic: Vancomycin Type of Intervention Type of Consult: Follow-up Suspected Infection Suspected Infection: Sepsis Labs Labs: Sodium 146 mmol/L (136-145) H 11/23/23 03:57 Potassium 4.1 mmol/L (3.5-5.1) 11/23/23 03:57 Chloride 116 mmol/L (98-107) H 11/23/23 03:57 Carbon Dioxide 25.0 mmol/L (21.0-32.0) 11/23/23 03:57 Anion Gap 5 (5-15) 11/23/23 03:57 BUN 23 mg/dL (7-18) H 11/23/23 03:57 Creatinine 0.72 mg/dL (0.55-1.02) 11/23/23 03:57 Est GFR (MDRD) Af Amer 102 mL/min (>60) 11/23/23 03:57 Est GFR (MDRD) Non-Af 84 mL/min (>60) 11/23/23 03:57 BUN/Creatinine Ratio 32.0 RATIO (10-20) H 11/23/23 03:57 Glucose 178 mg/dL (74-106) H 11/23/23 03:57 Vancomycin Trough 19.6 ug/mL (5.0-15.0) H 11/23/23 03:57 Microbiology Microbiology: Microbiology 11/21/23 13:20 Urine, Clean Catch Urine Culture - Preliminary Gram negative manjinder 11/21/23 16:39 Sputum, Induced/Lukens Gram Stain - Final 11/21/23 11:25 Mucosa - Nasopharyngeal SARS-CoV-2, Influenza & RSV (PCR) - Final Dosing Weight Weight used for dosin.3 kg Estimated Creatinine Clearance Estimated Creatinine Clearance: 65 Goal Trough Goal Trough: 15-20 mcg/mL Pharmacy Plan for Drug Dosing Pharmacy Plan for Drug Dosing: Vancomycin trough level of 19.6 was within the target range of 15-20. Will continue dosing at 1250mg q12h, and will draw another trough in two days. Pharmacy Service will continue to monitor and adjust dosing as required. Follow-Up Labs Follow-Up Labs: Trough: Vancomycin Date/Time Labs Ordered Labs to be done on [date and time ordered]: 11/25/23 @0230
[2023-11-23] MEDS: Vancomycin HCl 1,250 MG in 0.9% Normal Saline (250mL Bag) 250 ML 167 MG IV ×2 (04:42→16:18)
[2023-11-23 05:20] LABS: Differential Indicated SCAN CRITERIA MET
[2023-11-23 05:42] LABS: Bedside Glucose 143 mg/dL (74-106)
[2023-11-23] MEDS: Meropenem 1 GM in 0.9% Normal Saline (100mL MB+) 100 ML IV ×3 (06:27→21:11)
[2023-11-23] MEDS: TITRATION PARAMETER CHANGE 1 EACH IV (06:27)
[2023-11-23] MEDS: Budesonide Respules 0.5 MG/2 ML AMPUL.NEB. INHALATION ×2 (07:27→18:47)
--- NOTE | 2023-11-23 07:39 | PN.HOSP_ITS ---
Reason for Visit Reason for Visit: Diagnoses Sepsis, unspecified organism (11/21/23) Malignant neoplasm of thyroid gland (11/21/23) Respiratory failure, unspecified, unspecified whether with hypoxia or hypercapnia (11/21/23) Other specified respiratory disorders (11/21/23) Urinary tract infection, site not specified (11/21/23) Subjective Subjective Sedated. Tolerating vent. Objective Data Objective Data Vital Signs: Vital Signs Temp Pulse Resp BP Pulse Ox O2 Del Method O2 Flow Rate 37.2 C 113 H 18 113/53 L 93 Mechanical Ventilator 4 11/23/23 04:00 11/23/23 06:00 11/23/23 06:00 11/23/23 06:00 11/23/23 06:00 11/23/23 06:00 11/21/23 15:00 FiO2 30 11/23/23 06:00 Oxygen Flow Rate (L/min) 4 Oxygen Delivery Method Mechanical Ventilator Weight: 100.3 kg Body Mass Index (BMI) 43.2 Intake & Output: Intake and Output for Last 24 Hours 11/21/23 11/22/23 11/23/23 23:59 23:59 23:59 Intake Total 3906.82 / 4016.62 2213.78 / 2260.58 716.46 / 716.46 Output Total 50 / 175 1175 / 1425 550 / 550 Balance 3856.82 / 3841.62 1038.78 / 835.58 166.46 / 166.46 Lab / Micro Data 11/23/23 03:57 11/23/23 03:57 Labs: Laboratory Results - last 24 hr 11/22/23 04:30: Total Creatine Kinase 46, Triglycerides 98 11/22/23 10:50: POC Glucose 133 H 11/22/23 17:39: POC Glucose 168 H 11/22/23 23:48: POC Glucose 171 H 11/23/23 03:57: WBC 4.3 L, RBC 3.65 L, Hgb 10.2 L, Hct 32.2 L, MCV 88.2, MCH 27.9, MCHC 31.7 L, RDW Std Deviation 50.7 H, RDW Coeff of Melissa 15.6 H, Plt Count 64 L, MPV 11.6, Immature Gran % (Auto) 0.500, Neut % (Auto) 77.6 H, Lymph % (Auto) 5.8 L, [place] % (Auto) 12.7 H, Eos % (Auto) 3.2, Baso % (Auto) 0.2, Absolute Neuts (auto) 3.4, Absolute Lymphs (auto) 0.25 L, Nucleated RBC % 0, PT 17.0 H, INR 1.4, APTT 30.5, Sodium 146 H, Potassium 4.1, Chloride 116 H, Carbon Dioxide 25.0, Anion Gap 5, BUN 23 H, Creatinine 0.72, Estim Creat Clear Calc 64.67, Est GFR (MDRD) Af Amer 102, Est GFR (MDRD) Non-Af 84, BUN/Creatinine Ratio 32.0 H, Glucose 178 H, Calcium 8.6, Total Bilirubin 0.80, AST 28, ALT 20, Alkaline Phosphatase 92, Total Protein 5.3 L, Albumin 2.0 L, Globulin 3.3, Albumin/Globulin Ratio 0.6 L, Vancomycin Trough 19.6 H 11/23/23 05:20: POC Glucose 143 H Micro: Microbiology 11/21/23 12:00 Blood Culture (Wb) - Arm Right Blood Culture - Preliminary No growth in 48 hours. 11/21/23 11:25 Blood Culture (Wb) - Left Forearm Blood Culture - Preliminary No growth in 48 hours. 11/21/23 13:20 Urine, Clean Catch Urine Culture - Preliminary Gram negative manjinder 11/21/23 16:39 Sputum, Induced/Lukens Gram Stain - Final 11/21/23 11:25 Mucosa - Nasopharyngeal SARS-CoV-2, Influenza & RSV (PCR) - Final Physical Exam Const Constitutional Narrative: intubated. sedated. afebrile. HEENT head/scalp atraumatic and moist oral mucous membranes Resp normal respiratory effort, no retractions, no use of accessory muscles and clear to auscultation bilaterally Cardio regular rate, regular rhythm, S1 normal heart sound and S2 normal heart sound Assessment & Plan Assessment/Plan (1) Acute airway obstruction: PLAN: Plan Acute hypoxic respiratory failure * secondary to left-sided airway obstruction from neck mass suspected to be thyroid cancer * Plan was for the patient be transferred to [facility] on the and when a bed became available, transfer was canceled by the daughter stated that the patient had sepsis. Dr. Cardoso spoke with the daughter afterwards an d daughter stated that the patient would likely not want to put back into food became dislodged for any reason. But could not rule out the possibility that the patient may want a tracheostomy. The daughter would like to speak with the patient when there is a sedation holiday to see what the patient would want. If the patient would want a tracheostomy, it is unlikely that she would get a tracheostomy here and she would again require transfer to [facility]. * Patient requiring sedation with dexmedetomidine Sepsis * Secondary UTI versus pneumonia. * On meropenem and vancomycin * Urine culture growing gram-negative manjinder, blood cultures thus far negative. Sputum culture pending. COVID, influenza and RSV negative. type 2 diabetes-patient's blood sugars will be monitored, sliding scale insulin will be given as needed VTE prophylaxis: SCDs. Discussed with the patient's daughter. Intensive care recommended transfer to tertiary facility for terminal extubation as they would have ENT available. Discussed with the daughter that if there is no plans for the patient to have a tracheostomy tube that I would not feel that would be necessary and that patient could be made comfortable and have a terminal extubation of the patient here. She is unsure or as she does not think that her mother would want that but this particular scenario is never been played out with her mother before. She states that her mother stated that she would want everything done but once again, never anticipated this particular situation. She would like to keep the patient here until Saturday until she can get some further information from the oncology team and then hopefully can get further feedback from her mother to make a decision. She also wanted to hold off on the tube feeds at this time. Patient already does have an OG tube so that could be easily administered. I did mention to her that it may be feasible for the patient to have a palliative tracheostomy. Greater than 55 minutes of which greater than 50% of the time was discussing with the patient's daughter about the ventilator, palliative tracheostomy, terminal extubation. Charges/Coding Visit Charges Inpatient E&M: 47615 [facility] Hosp L3
[2023-11-23] MEDS: Propofol 10MG/Ml 1,000 MG/100 ML Bottle 21.1 MG CONT INF (08:15)
[2023-11-23] MEDS: CHLORHEXIDINE GLUC 2% CLOTH 1 EACH TOWELETTE TOPICAL (08:27)
[2023-11-23] MEDS: Chlorhexidine 15 ML PO ×2 (08:27→21:09)
[2023-11-23] MEDS: Docusate Sodium 100 MG/10 ML UDC GT ×2 (08:28→21:09)
[2023-11-23] MEDS: Multivitamins,Therapeutic Tablet 1 TABLET GT (08:28)
[2023-11-23] MEDS: Lansoprazole 15 MG Capsule.DR 30 MG GT (08:28)
--- NOTE | 2023-11-23 10:13 | CASEMGMT ---
Social Work Pt was to be transferred, at this time as per physician, pt may not be transferred. SW will follow up Saturday w/daughter if pt does not get transferred, to make sure the plan will be for pt to return to [facility] when ready. ZENA Keenan
--- NOTE | 2023-11-23 10:50 | PCM.PN.TICU ---
Objective Data Objective Data Vital Signs: Vital Signs Last response Temperature 37.0 C 11/23/23 07:00 Temperature Source Temporal 11/23/23 07:00 Pulse Rate 117 H 11/23/23 10:00 Pulse Strength Weak (1+) 11/23/23 09:36 Respiratory Rate 18 11/23/23 10:00 Respiratory Effort Mechanically Ventilated 11/23/23 08:00 Respiratory Depth Normal 11/23/23 04:00 Respiratory Pattern Normal 11/23/23 04:00 Blood Pressure 100/57 L 11/23/23 10:00 Blood Pressure Mean 71 11/23/23 10:00 Blood Pressure Source Monitor 11/23/23 10:00 Blood Pressure Position Semi-Fowlers 11/23/23 10:00 Blood Pressure Location Right Forearm 11/23/23 10:00 Pulse Ox 95 11/23/23 10:00 Oxygen Delivery Method Mechanical Ventilator 11/23/23 10:00 Oxygen Flow Rate (L/min) 4 11/21/23 15:00 Fraction of Inspired Oxygen (FIO2) 40 11/23/23 10:00 I&O: I&O Last 24 Hours 11/22/23 11/22/23 11/23/23 11:59 23:59 11:59 Intake Total 1306.92 / 2260.58 906.86 / 2260.58 933.19 / 933.19 Output Total 925 / 1425 250 / 1425 750 / 750 Balance 381.92 / 835.58 656.86 / 835.58 183.19 / 183.19 I&O: Total Stay 11/21/23 11:12 thru 11/23/23 10:07 Intake Total 7053.79 Output Total 1975 Balance 5078.79 Current Meds Ordered / Administered: Current meds ordered / Administered Generic Name Dose Route Start Last Admin Trade Name Freq PRN Reason Stop Dose Admin Acetaminophen 650 mg 11/21/23 23:59 11/22/23 15:08 Acetaminophen 650 Mg/20 Ml Udc GT 650 mg Q6H PRN PRN Administration Pain 1-10 or Fever Albuterol Sulfate 2.5 mg 11/21/23 20:44 11/22/23 12:56 Albuterol 2.5 Mg/3 Ml Vial.Neb. INHALATION 2.5 mg Q2H PRN PRN Administration Dyspnea, wheezing Atorvastatin Calcium 10 mg 11/22/23 22:00 11/22/23 20:45 Atorvastatin Calcium 10 Mg Tablet GT 10 mg QHS JAIRO Administration Budesonide 0.5 mg 11/21/23 21:00 11/23/23 07:27 Budesonide Respules 0.5 Mg/2 Ml Ampul.Neb. INHALATION 0.5 mg Q12H.RT JAIRO Administration Chlorhexidine Gluconate 15 ml 11/22/23 10:00 11/23/23 08:27 Chlorhexidine 15 Ml PO 15 ml BID JAIRO Administration Chlorhexidine Gluconate 1 each 11/22/23 10:00 11/23/23 08:27 Chlorhexidine Gluc 2% Cloth 1 Each [place] TOPICAL 1 each DAILY JAIRO Administration Docusate Sodium 100 mg 11/22/23 10:00 11/23/23 08:28 Docusate Sodium 100 Mg/10 Ml Udc GT 100 mg BID JAIRO Administration Ferrous Sulfate 325 mg 11/22/23 08:00 11/22/23 08:31 Ferrous Sulfate 300 Mg/5 Ml Udc GT 325 mg Q48@0800 JAIRO Administration Fluticasone Propionate 1 spray 11/21/23 22:00 11/22/23 20:44 Fluticasone 0.05% 1 [place] Nasal.Sry NASAL Not Given QHS JAIRO Fentanyl 100 mls @ 5 mls/hr 11/21/23 15:35 11/23/23 09:21 CONT INF 200 mcg/hr UD JAIRO 20 mls/hr Administration Protocol 50 MCG/HR Sodium Chloride 250 mls @ 15 mls/hr 11/21/23 21:24 IV .[id number] PRN Additional IVPB Infusion Sodium Chloride 250 mls @ 15 mls/hr 11/21/23 21:24 IV .[id number] PRN Saline Flush Dexmedetomidine HCl 1,000 mcg/ 250 mls @ 12.538 mls/hr 11/21/23 22:10 11/22/23 19:00 Sodium Chloride CONT INF 0 mcg/kg/hr .[id number] JAIRO 0 mls/hr Titration Protocol 0.5 MCG/KG/HR Meropenem 1 gm/ Sodium 120 mls @ 33 mls/hr 11/21/23 23:30 11/23/23 10:07 Chloride IV Infused Q8 JAIRO Infusion Vancomycin HCl 1,250 mg/ 275 mls @ 167 mls/hr 11/22/23 03:00 11/23/23 06:27 Sodium Chloride IV Infused Q12H JAIRO Infusion Propofol 1,000 mg in 100 mls @ 6.018 mls/hr 11/22/23 13:15 11/23/23 08:15 Diprivan CONT INF 35 mcg/kg/min .Q12H JAIRO 21.1 mls/hr Administration Protocol 10 MCG/KG/MIN Insulin Human Lispro 0 unit 11/22/23 12:00 11/23/23 05:23 Insulin Lispro 100 Unit/Ml Insuln.Pen SC Not Given Q6 [facility] Protocol Lansoprazole 30 mg 11/22/23 10:00 11/23/23 08:28 Lansoprazole 15 Mg Capsule. GT 30 mg DAILY [facility] Administration Multivitamins 1 tablet 11/22/23 08:00 11/23/23 08:28 Multivitamins,Therapeutic Tablet GT 1 tablet DAILYCM JAIRO Administration Ondansetron HCl 4 mg 11/21/23 20:44 Ondansetron 4 Mg/2 Ml Vial IV Q8H PRN PRN NAUSEA/VOMITING Pramipexole Dihydrochloride 0.25 mg 11/22/23 22:00 11/22/23 20:45 Pramipexole Di-Hcl 0.25 Mg Tablet GT 0.25 mg QHS [facility] Administration Senna/Docusate Sodium 2 tablet 11/22/23 00:27 Senna/Docusate Sodium 1 Tablet GT BID PRN PRN Constipation Sodium Chloride 10 - 40 ml 11/21/23 21:24 11/23/23 05:21 0.9% Saline Lock 10 Ml Syringe IV 10 ml UD PRN Administration SALINE FLUSH Vancomycin Protocol 1 lab 11/25/23 00:30 Vancomycin Trough/Random Due MC 11/25/23 04:30 DAILY [facility] Lab / Micro Data 11/23/23 03:57 11/23/23 03:57 Labs: Laboratory Results - last 24 hr 11/22/23 04:30: Total Creatine Kinase 46, Triglycerides 98 11/22/23 10:50: POC Glucose 133 H 11/22/23 17:39: POC Glucose 168 H 11/22/23 23:48: POC Glucose 171 H 11/23/23 03:57: WBC 4.3 L, RBC 3.65 L, Hgb 10.2 L, Hct 32.2 L, MCV 88.2, MCH 27.9, MCHC 31.7 L, RDW Std Deviation 50.7 H, RDW Coeff of Melissa 15.6 H, Plt Count 64 L, MPV 11.6, Immature Gran % (Auto) 0.500, Neut % (Auto) 77.6 H, Lymph % (Auto) 5.8 L, [place] % (Auto) 12.7 H, Eos % (Auto) 3.2, Baso % (Auto) 0.2, Absolute Neuts (auto) 3.4, Absolute Lymphs (auto) 0.25 L, Nucleated RBC % 0, PT 17.0 H, INR 1.4, APTT 30.5, Sodium 146 H, Potassium 4.1, Chloride 116 H, Carbon Dioxide 25.0, Anion Gap 5, BUN 23 H, Creatinine 0.72, Estim Creat Clear Calc 64.67, Est GFR (MDRD) Af Amer 102, Est GFR (MDRD) Non-Af 84, BUN/Creatinine Ratio 32.0 H, Glucose 178 H, Calcium 8.6, Total Bilirubin 0.80, AST 28, ALT 20, Alkaline Phosphatase 92, Total Protein 5.3 L, Albumin 2.0 L, Globulin 3.3, Albumin/Globulin Ratio 0.6 L, Vancomycin Trough 19.6 H 11/23/23 05:20: POC Glucose 143 H Micro: Microbiology 11/21/23 16:39 Sputum, Induced/Lukens Gram Stain - Final 11/21/23 16:39 Sputum, Induced/Lukens Respiratory Culture - Preliminary Appears to be normal respiratory kannan. Further studies to follow. 11/21/23 13:20 Urine, Clean Catch Urine Culture - Final Escherichia coli 11/21/23 12:00 Blood Culture (Wb) - Arm Right Blood Culture - Preliminary No growth in 48 hours. 11/21/23 11:25 Blood Culture (Wb) - Left Forearm Blood Culture - Preliminary No growth in 48 hours. Assessment and Plan . Assessment and plan: Critical Care Time: The entirety of this encounter was done via Telemedicine Subjective Subjective Telemedicine Pulmonary/ICU Progress Note Brief summary: 73 year-old female with HTN, HLD, DM2, Paroxysmal Afib, RILEY on CPAP, history of DVT, chart diagnoses of Asthma and COPD, chronic hypoxemic respiratory failure on 2L oxygen at home, and thyroid cancer who presents acute respiratory failure. Based on chart review she presented with altered mental status with dysarthria, shortness of breath, and cough. 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 She was thus intubated and sedated, and on my examination, she remains the same with stable vital signs. Sub: Pt seen and examined. No acute events over night. Intubated, sedated. Making urine. Afebrile. Prop @ 30 Fent @ 200 18 450 5 40 PE: General: Well developed, intubated HEENT: anicteric Sclera; + ETT, nl nose; supple neck, no masses Cardiovascular: Regular Rate and Rhythm; No murmurs, rubs, gallops; no displaced PMI Respiratory: diminished; no crackles, wheezes, or rhonchi Abdominal: Non-tender; Non distended; hypoBS x 4; No Hepatosplenomegaly Extremities: Warm, well perfused; No clubbing, cyanosis; capillary refill < 2 sec Neurological: sedated A/P: #Acute respiratory failure: cont MV; settings reviewed/adjusted; sedation/analgesia; not appropriate for SBTs due to presence of underlying mass obstructing airway; needs additional eval by ENT at OSH #Acute airway obstruction: cont emp IV Abx; F/U infectious workup; recommend Tx for ENT evaluation at [facility] even if plan is to transition to more hospice/comfort measures #Acute UTI: cont Abx; F/U Cx #Sepsis: see above #Cancer of thyroid: see above #History of thyroid cancer/questionable history of COPD/paroxysmal atrial fibrillation/obstructive sleep apnea/diabetes mellitus/obesity Daughter at this time wants to hold off on transfer pending communication with primary oncologist (expected Saturday) because she wants clarification whether patient is more appropriate for hospice. I advised her that even a transition to comfort plan and withdrawal of life support would be most appropriately done at [facility] with ENT and other services on board given vocal cord mass and need for comprehensive plan to prevent undue distress/suffering if airway is obstructed. Pt requests time to consider this and will update care team to reinstate transfer plans if desired. DNR The entirety of the encounter was completed via telemedicine.
[2023-11-23 13:04] LABS: Bedside Glucose 112 mg/dL (74-106)
[2023-11-23] MEDS: Propofol 10MG/Ml 1,000 MG/100 ML Bottle 18.1 MG CONT INF ×2 (13:21→18:55)
[2023-11-23 18:30] LABS: Bedside Glucose 96 mg/dL (74-106)
[2023-11-23] MEDS: Fluticasone 0.05% 1 SPRAY NASAL.SRY NASAL (21:09)
[2023-11-23] MEDS: Atorvastatin Calcium 10 MG Tablet GT (21:11)
[2023-11-23] MEDS: Pramipexole Di-HCl 0.25 MG Tablet GT (21:56)
[2023-11-24] VITALS (31 sets, daily range): BP systolic 115–145; BP diastolic 48–70; PULSE 87–111; RESP 18–19; TEMP 36.8–38.2; O2SAT 92–95; BMI 43.1; BMI 43.0
[2023-11-24 00:51] LABS: Bedside Glucose 93 mg/dL (74-106)
[2023-11-24] MEDS: Propofol 10MG/Ml 1,000 MG/100 ML Bottle 18.1 MG CONT INF ×4 (00:57→17:20)
[2023-11-24] MEDS: Vancomycin HCl 1,250 MG in 0.9% Normal Saline (250mL Bag) 250 ML 167 MG IV (02:15)
[2023-11-24 04:00] LABS: Absolute Lymphocyte Count 0.36 X10^3/uL (0.83-4.51); Absolute Neutrophil Count 1.8 X10^3/uL (2.0-7.7); Basophil# 0.02 X10^3/uL; Basophil% 0.8 % (0-1); Eosinophil# 0.12 X10^3/uL; Eosinophils% 4.5 % (0-5); Hematocrit 28.6 % (37-47); Hemoglobin 9.1 g/dL (12.0-15.0); Lymphocyte # 0.36 X10^3/ul (0.83-4.51); Lymphocyte % 13.6 % (19-41); Mean Corp Hgb Conc 31.8 g/dL (32-36); Mean Corpuscular Hgb 27.8 pg (27.0-32.0); Mean Corpuscular Volume 87.5 fL (81-99); Mean Platelet Vol. 12.4 fl (6.2-12.0); Monocyte% 11.4 % (0-10); NRBC Flagged by Analyzer 0 % (0-5); Neutrophil # 1.82 X10^3/uL (2.7-7.7); Neutrophil % 68.9 % (47-70); POSITIVE COUNT YES; POSITIVE DIFFERENTIAL YES; Platelet Count 60 K/mm3 (150-450); RBC Distribution Width SD 51.1 fl (35.1-43.9); Red Blood Count 3.27 M/mm3 (4.2-5.4); White Blood Count 2.6 K/mm3 (4.4-11.0)
[2023-11-24 04:06] LABS: Anion Gap 6 (5-15); BUN 18 mg/dL (7-18); BUN/Creat Ratio 34.8 RATIO (10-20); Calcium,Total 8.9 mg/dL (8.5-10.1); Chloride 120 mmol/L (98-107); Creatinine, Serum 0.52 mg/dL (0.55-1.02); EST Glomerular Filtration Rate 123 mL/min (>60); Est Glom Filt Rate - Afr Amer 149 mL/min (>60); Estimated Creatinine Clearance 64.67 ml/min; Glucose 96 mg/dL (74-106); Potassium 3.4 mmol/L (3.5-5.1); Sodium Level 151 mmol/L (136-145)
[2023-11-24 04:08] LABS: Differential Indicated SCAN CRITERIA MET
[2023-11-24] MEDS: Meropenem 1 GM in 0.9% Normal Saline (100mL MB+) 100 ML IV (05:26)
[2023-11-24 05:43] LABS: Bedside Glucose 84 mg/dL (74-106)
[2023-11-24 05:51] LABS: Differential Comment SCANNED
[2023-11-24] MEDS: fentaNYL drip 100 ML 20 MCG CONT INF ×3 (05:54→11:17)
[2023-11-24] MEDS: Budesonide Respules 0.5 MG/2 ML AMPUL.NEB. INHALATION ×2 (07:23→18:56)
--- NOTE | 2023-11-24 08:35 | PN.HOSP_ITS ---
Reason for Visit Reason for Visit: Diagnoses Sepsis, unspecified organism (11/21/23) Malignant neoplasm of thyroid gland (11/21/23) Respiratory failure, unspecified, unspecified whether with hypoxia or hypercapnia (11/21/23) Other specified respiratory disorders (11/21/23) Urinary tract infection, site not specified (11/21/23) Subjective Subjective So in the event. Objective Data Objective Data Vital Signs: Vital Signs Temp Pulse Resp BP Pulse Ox O2 Del Method O2 Flow Rate 37.1 C 93 18 116/55 L 94 Mechanical Ventilator 4 11/24/23 06:00 11/24/23 06:00 11/24/23 06:00 11/24/23 06:00 11/24/23 06:00 11/24/23 06:00 11/21/23 15:00 FiO2 40 11/24/23 04:10 Oxygen Flow Rate (L/min) 4 Oxygen Delivery Method Mechanical Ventilator Weight: 100 kg Body Mass Index (BMI) 43.0 Intake & Output: Intake and Output for Last 24 Hours 11/22/23 11/23/23 11/24/23 23:59 23:59 23:59 Intake Total 2213.78 / 2260.58 1856.43 / 1934.53 772.60 / 772.60 Output Total 1175 / 1425 1050 / 1450 650 / 650 Balance 1038.78 / 835.58 806.43 / 484.53 122.60 / 122.60 Lab / Micro Data 11/24/23 03:30 11/24/23 03:30 Labs: Laboratory Results - last 24 hr 11/23/23 12:48: POC Glucose 112 H 11/23/23 18:12: POC Glucose 96 11/24/23 00:33: POC Glucose 93 11/24/23 03:30: WBC 2.6 L, RBC 3.27 L, Hgb 9.1 L, Hct 28.6 L, MCV 87.5, MCH 27.8, MCHC 31.8 L, RDW Std Deviation 51.1 H, RDW Coeff of Melissa 16.0 H, Plt Count 60 L, MPV 12.4 H, Immature Gran % (Auto) 0.800, Neut % (Auto) 68.9, Lymph % (Auto) 13.6 L, Lewis % (Auto) 11.4 H, Eos % (Auto) 4.5, Baso % (Auto) 0.8, Absolute Neuts (auto) 1.8 L, Absolute Lymphs (auto) 0.36 L, Nucleated RBC % 0, Differential Comment SCANNED, Diff Path Review November, Sodium 151 H, Potassium 3.4 L, Chloride 120 H, Carbon Dioxide 25.0, Anion Gap 6, BUN 18, Creatinine 0.52 L, Estim Creat Clear Calc 64.67, Est GFR (MDRD) Af Amer 149, Est GFR (MDRD) Non- Af 123, BUN/Creatinine Ratio 34.8 H, Glucose 96, Calcium 8.9 11/24/23 05:24: POC Glucose 84 Micro: Microbiology 11/21/23 16:39 Sputum, Induced/Lukens Gram Stain - Final 11/21/23 16:39 Sputum, Induced/Lukens Respiratory Culture - Preliminary Appears to be normal respiratory kannan. Further studies to follow. 11/21/23 13:20 Urine, Clean Catch Urine Culture - Final Escherichia coli 11/21/23 12:00 Blood Culture (Wb) - Arm Right Blood Culture - Preliminary No growth in 48 hours. 11/21/23 11:25 Blood Culture (Wb) - Left Forearm Blood Culture - Preliminary No growth in 48 hours. 11/21/23 11:25 Mucosa - Nasopharyngeal SARS-CoV-2, Influenza & RSV (PCR) - Final Physical Exam Const Constitutional Narrative: Intubated. Sedated. Resp normal respiratory effort, no retractions and no use of accessory muscles Cardio regular rate, regular rhythm, S1 normal heart sound and S2 normal heart sound GI normal to inspection, nondistended, normoactive bowel sounds, soft to palpation, non-tender and non-distended Assessment & Plan Assessment/Plan (1) Acute airway obstruction: PLAN: Plan Acute hypoxic respiratory failure * secondary to left-sided airway obstruction from neck mass suspected to be thyroid cancer. Plus, pneumonia or atelectasis. * On meropenem and vancomycin. * Plan was for the patient be transferred to [facility] on the and when a bed became available, transfer was canceled by the daughter stated that the patient had sepsis. Dr. Cardoso spoke with the daughter afterwards and daughter stated that the patient would likely not want to put back into food became dislodged for any reason. But could not rule out the possibility that the patient may want a tracheostomy. The daughter would like to speak with the patient when there is a sedation holiday to see what the patient would want. If the patient would want a tracheostomy, it is unlikely that she would get a tracheostomy here and she would again require transfer to [facility]. * Patient requiring sedation with dexmedetomidine Sepsis * Secondary UTI versus pneumonia. * Urine culture growing E. coli, resistant to levofloxacin and Bactrim., blood cultures thus far negative. Sputum culture negative. COVID, influenza and RSV negative. * Will de-escalate antibiotics to ceftriaxone type 2 diabetes-patient's blood sugars will be monitored, sliding scale insulin will be given as needed VTE prophylaxis: SCDs. 11/22: Discussed with the patient's daughter. Intensive care recommended transfer to tertiary facility for terminal extubation as they would have ENT available. Discussed with the daughter that if there is no plans for the patient to have a tracheostomy tube that I would not feel that would be necessary and that patient could be made comfortable and have a terminal extubation of the patient here. She is unsure or as she does not think that her mother would want that but this particular scenario is never been played out with her mother before. She states that her mother stated that she would want everything done but once again, never anticipated this particular situation. She would like to keep the patient here until Saturday until she can get some further information from the oncology team and then hopefully can get further feedback from her mother to make a decision. She also wanted to hold off on the tube feeds at this time. Patient already does have an OG tube so that could be easily administered. I did mention to her that it may be feasible for the patient to have a palliative tracheostomy. Disposition: To be determined. Daughter discussed with oncology to determine what their assessment is. She will attempt to reach the on the . I decided that patient would benefit from tracheostomy then she will be transferred, however the plan is for hospice, notes from intensive care physician was reviewed. Will reevaluate on the if to be terminal extubation here or elsewhere if hospice is decided. Charges/Coding Visit Charges Inpatient E&M: 46805 Subs Hosp L2
[2023-11-24] MEDS: Ferrous Sulfate 300 MG/5 ML UDC 325 MG GT (09:23)
[2023-11-24] MEDS: Chlorhexidine 15 ML PO ×2 (09:23→20:25)
[2023-11-24] MEDS: CHLORHEXIDINE GLUC 2% CLOTH 1 EACH TOWELETTE TOPICAL (09:24)
[2023-11-24] MEDS: Lansoprazole 15 MG Capsule.DR 30 MG GT (09:24)
[2023-11-24] MEDS: 0.9% Saline Lock 10 ML Syringe IV (09:24)
[2023-11-24] MEDS: Docusate Sodium 100 MG/10 ML UDC GT ×2 (09:24→20:24)
--- NOTE | 2023-11-24 11:29 | PCM.PN.TICU ---
Objective Data Objective Data Vital Signs: Vital Signs Last response Temperature 36.8 C 11/24/23 08:00 Temperature Source Temporal 11/24/23 08:00 Pulse Rate 90 11/24/23 11:10 Pulse Strength Weak (1+) 11/24/23 10:00 Respiratory Rate 18 11/24/23 11:10 Respiratory Effort Non-Labored, Mechanically Ventilated 11/24/23 07:50 Respiratory Depth Normal 11/24/23 07:50 Respiratory Pattern Normal 11/24/23 07:50 Blood Pressure 115/57 L 11/24/23 08:00 Blood Pressure Mean 76 11/24/23 08:00 Blood Pressure Source Monitor 11/24/23 08:00 Blood Pressure Position Semi-Fowlers 11/24/23 08:00 Blood Pressure Location Right Arm 11/24/23 08:00 Pulse Ox 95 11/24/23 11:10 Oxygen Delivery Method Mechanical Ventilator 11/24/23 08:00 Oxygen Flow Rate (L/min) 4 11/21/23 15:00 Fraction of Inspired Oxygen (FIO2) 40 11/24/23 11:10 I&O: I&O Last 24 Hours 11/23/23 11/23/23 11/24/23 11:59 23:59 11:59 Intake Total 1024.22 / 1934.53 832.21 / 1934.53 1050.39 / 1050.39 Output Total 750 / 1450 300 / 1450 1000 / 1000 Balance 274.22 / 484.53 532.21 / 484.53 50.39 / 50.39 I&O: Total Stay 11/21/23 11:12 thru 11/24/23 11:25 Intake Total 9027.42 Output Total 3275 Balance 5752.42 Current Meds Ordered / Administered: Current meds ordered / Administered Generic Name Dose Route Start Last Admin Trade Name Freq PRN Reason Stop Dose Admin Acetaminophen 650 mg 11/21/23 23:59 11/22/23 15:08 Acetaminophen 650 Mg/20 Ml Udc GT 650 mg Q6H PRN PRN Administration Pain 1-10 or Fever Albuterol Sulfate 2.5 mg 11/21/23 20:44 11/22/23 12:56 Albuterol 2.5 Mg/3 Ml Vial.Neb. INHALATION 2.5 mg Q2H PRN PRN Administration Dyspnea, wheezing Atorvastatin Calcium 10 mg 11/22/23 22:00 11/23/23 21:11 Atorvastatin Calcium 10 Mg Tablet GT 10 mg QHS JAIRO Administration Budesonide 0.5 mg 11/21/23 21:00 11/24/23 07:23 Budesonide Respules 0.5 Mg/2 Ml Ampul.Neb. INHALATION 0.5 mg Q12H.RT JAIRO Administration Chlorhexidine Gluconate 15 ml 11/22/23 10:00 11/24/23 09:23 Chlorhexidine 15 Ml PO 15 ml BID JAIRO Administration Chlorhexidine Gluconate 1 each 11/22/23 10:00 11/24/23 09:24 Chlorhexidine Gluc 2% Cloth 1 Each [place] TOPICAL 1 each DAILY JAIRO Administration Docusate Sodium 100 mg 11/22/23 10:00 11/24/23 09:24 Docusate Sodium 100 Mg/10 Ml Udc GT 100 mg BID JAIRO Administration Ferrous Sulfate 325 mg 11/22/23 08:00 11/24/23 09:23 Ferrous Sulfate 300 Mg/5 Ml Udc GT 325 mg Q48@0800 JAIRO Administration Fluticasone Propionate 1 spray 11/21/23 22:00 11/23/23 21:09 Fluticasone 0.05% 1 [place] Nasal.Sry NASAL 1 spray QHS JAIRO Administration Fentanyl 100 mls @ 5 mls/hr 11/21/23 15:35 11/24/23 11:17 CONT INF 200 mcg/hr UD JAIRO 20 mls/hr Administration Protocol 50 MCG/HR Sodium Chloride 250 mls @ 15 mls/hr 11/21/23 21:24 IV .[id number] PRN Additional IVPB Infusion Sodium Chloride 250 mls @ 15 mls/hr 11/21/23 21:24 IV .[id number] PRN Saline Flush Dexmedetomidine HCl 1,000 mcg/ 250 mls @ 12.538 mls/hr 11/21/23 22:10 11/24/23 09:24 Sodium Chloride CONT INF Not Given .[id number] JAIRO Protocol 0.5 MCG/KG/HR Meropenem 1 gm/ Sodium 120 mls @ 33 mls/hr 11/21/23 23:30 11/24/23 09:13 Chloride IV Infused Q8 JAIRO Infusion Vancomycin HCl 1,250 mg/ 275 mls @ 167 mls/hr 11/22/23 03:00 11/24/23 04:49 Sodium Chloride IV Infused Q12H [facility] Infusion Propofol 1,000 mg in 100 mls @ 6.018 mls/hr 11/22/23 13:15 11/24/23 11:27 Diprivan CONT INF 30 mcg/kg/min .Q12H JAIRO 18.1 mls/hr Administration Protocol 10 MCG/KG/MIN Enteral Nutritional Formula 1,000 mls @ 50 mls/hr 11/23/23 12:00 11/24/23 07:43 Vital High Protein GT Not Given .Q20H [facility] Insulin Human Lispro 0 unit 11/22/23 12:00 11/24/23 06:45 Insulin Lispro 100 Unit/Ml Insuln.Pen SC Not Given Q6 [facility] Protocol Lansoprazole 30 mg 11/22/23 10:00 11/24/23 09:24 Lansoprazole 15 Mg Capsule. GT 30 mg DAILY [facility] Administration Multivitamins 1 tablet 11/22/23 08:00 11/24/23 07:52 Multivitamins,Therapeutic Tablet GT [facility] Ondansetron HCl 4 mg 11/21/23 20:44 Ondansetron 4 Mg/2 Ml Vial IV Q8H PRN PRN NAUSEA/VOMITING Pramipexole Dihydrochloride 0.25 mg 11/22/23 22:00 11/23/23 21:56 Pramipexole Di-Hcl 0.25 Mg Tablet GT 0.25 mg QHS [facility] Administration Senna/Docusate Sodium 2 tablet 11/22/23 00:27 Senna/Docusate Sodium 1 Tablet GT BID PRN PRN Constipation Sodium Chloride 10 - 40 ml 11/21/23 21:24 11/24/23 09:24 0.9% Saline Lock 10 Ml Syringe IV 40 ml UD PRN Administration SALINE FLUSH Vancomycin Protocol 1 lab 11/25/23 00:30 Vancomycin Trough/Random Due MC 11/25/23 04:30 DAILY [facility] Lab / Micro Data 11/24/23 03:30 11/24/23 03:30 Labs: Laboratory Results - last 24 hr 11/23/23 12:48: POC Glucose 112 H 11/23/23 18:12: POC Glucose 96 11/24/23 00:33: POC Glucose 93 11/24/23 03:30: WBC 2.6 L, RBC 3.27 L, Hgb 9.1 L, Hct 28.6 L, MCV 87.5, MCH 27.8, MCHC 31.8 L, RDW Std Deviation 51.1 H, RDW Coeff of Melissa 16.0 H, Plt Count 60 L, MPV 12.4 H, Immature Gran % (Auto) 0.800, Neut % (Auto) 68.9, Lymph % (Auto) 13.6 L, [place] % (Auto) 11.4 H, Eos % (Auto) 4.5, Baso % (Auto) 0.8, Absolute Neuts (auto) 1.8 L, Absolute Lymphs (auto) 0.36 L, Nucleated RBC % 0, Differential Comment SCANNED, Diff Path Review November, Sodium 151 H, Potassium 3.4 L, Chloride 120 H, Carbon Dioxide 25.0, Anion Gap 6, BUN 18, Creatinine 0.52 L, Estim Creat Clear Calc 64.67, Est GFR (MDRD) Af Amer 149, Est GFR (MDRD) Non-Af 123, BUN/Creatinine Ratio 34.8 H, Glucose 96, Calcium 8.9 11/24/23 05:24: POC Glucose 84 Micro: Microbiology 11/21/23 16:39 Sputum, Induced/Lukens Gram Stain - Final 11/21/23 16:39 Sputum, Induced/Lukens Respiratory Culture - Final 11/21/23 13:20 Urine, Clean Catch Urine Culture - Final Escherichia coli Assessment and Plan . Assessment and plan: Critical Care Time: The entirety of this encounter was done via Telemedicine Subjective Subjective Telemedicine Pulmonary/ICU Progress Note Brief summary: 73 year-old female with HTN, HLD, DM2, Paroxysmal Afib, RILEY on CPAP, history of DVT, chart diagnoses of Asthma and COPD, chronic hypoxemic respiratory failure on 2L oxygen at home, and thyroid cancer who presents acute respiratory failure. Based on chart review she presented with altered mental status with dysarthria, shortness of breath, and cough. 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 She was thus intubated and sedated, and on my examination, she remains the same with stable vital signs. Sub: Pt seen and examined. No acute events over night. Intubated, sedated. Afebrile. Good UOP. Prop @ 30 Fent @ 200 18 450 5 40 PE: General: Well developed, intubated HEENT: anicteric Sclera; + ETT, nl nose; supple neck, no masses Cardiovascular: Regular Rate and Rhythm; No murmurs, rubs, gallops; no displaced PMI Respiratory: diminished; no crackles, wheezes, or rhonchi Abdominal: Non-tender; Non distended; hypoBS x 4; No Hepatosplenomegaly Extremities: Warm, well perfused; No clubbing, cyanosis; capillary refill < 2 sec Neurological: sedated A/P: #Acute respiratory failure: cont MV; settings reviewed/adjusted; sedation/analgesia; not appropriate for SBTs due to presence of underlying mass obstructing airway; needs additional eval by ENT at OSH #Acute airway obstruction: cont emp IV Abx; F/U infectious workup; recommend Tx for ENT evaluation at [facility] even if plan is to transition to more hospice/comfort measures #Acute UTI: cont Abx; F/U Cx #Sepsis: see above #Cancer of thyroid: see above #Thrombocytopenia: multifactorial, cont monitoring #Hypernatremia: will give 1L D5W #History of thyroid cancer/questionable history of COPD/paroxysmal atrial fibrillation/obstructive sleep apnea/diabetes mellitus/obesity NPO (daughter refused TFs) SCDs (2* severe thrombocytopenia) Poor overall prognosis DNR Daughter at this time wants to hold off on transfer pending communication with primary oncologist (expected Saturday) because she wants clarification whether patient is more appropriate for hospice. I advised her that even a transition to comfort plan and withdrawal of life support would be most appropriately done at [facility] with ENT and other services on board given vocal cord mass and need for comprehensive plan to prevent undue distress/suffering if airway is obstructed. Pt requests time to consider this and will update care team to reinstate transfer plans if desired. CCT: 50 min The entirety of the encounter was completed via telemedicine.
[2023-11-24 11:50] LABS: Bedside Glucose 104 mg/dL (74-106)
--- NOTE | 2023-11-24 12:10 | RAD_ITS ---
EXAM: XR CHEST, 1 VIEW CLINICAL INDICATION: resp failure vent TECHNIQUE: Frontal view of the chest. COMPARISON: No relevant prior studies available. FINDINGS: LUNGS AND PLEURAL SPACES: Patchy airspace opacification within the upper lobes as improved. Persistent left lower lobe atelectasis/consolidation as well as persistent right lower lobe peribronchial infiltrates. HEART: Normal heart size. MEDIASTINUM: No mediastinal or hilar mass. BONES/JOINTS: No acute abnormality. TUBES, LINES AND DEVICES: The endotracheal tube (ETT) is in satisfactory position. Enteric tube extends into the stomach. RAD/Chest 1 View (Portable) IMPRESSION: Improving bilateral upper lobe infiltrates or edema. Persistent bibasilar pulmonary opacities. Electronically Signed: Caesar Knight MD at 13:30 EDT ,
[2023-11-24] MEDS: Dextrose 5%-Water (1000mL Bag) 1,000 ML 100 ML IV (12:26)
[2023-11-24] MEDS: 0.9% Normal Saline (250mL Bag) 250 ML 15 ML IV (16:46)
[2023-11-24] MEDS: Ceftriaxone 1 GM/50 ML BAG IV (16:46)
[2023-11-24 17:10] LABS: Bedside Glucose 105 mg/dL (74-106)
[2023-11-24] MEDS: Fluticasone 0.05% 1 SPRAY NASAL.SRY NASAL (20:25)
[2023-11-24] MEDS: Pramipexole Di-HCl 0.25 MG Tablet GT (20:25)
[2023-11-24] MEDS: Atorvastatin Calcium 10 MG Tablet GT (20:25)
[2023-11-24] MEDS: Acetaminophen 650 MG/20 ML UDC GT (20:27)
[2023-11-24] MEDS: fentaNYL drip 100 ML 10 MCG CONT INF (20:29)
[2023-11-25] VITALS (37 sets, daily range): BP systolic 107–135; BP diastolic 49–103; PULSE 74–122; RESP 18–26; TEMP 36.6–38.4; O2SAT 92–97; BMI 43.2
[2023-11-25 00:09] LABS: Bedside Glucose 139 mg/dL (74-106)
[2023-11-25] MEDS: Propofol 10MG/Ml 1,000 MG/100 ML Bottle 9 MG CONT INF ×2 (01:30→08:46)
[2023-11-25] MEDS: CHLORHEXIDINE GLUC 2% CLOTH 1 EACH TOWELETTE TOPICAL (01:51)
[2023-11-25 04:08] LABS: Absolute Lymphocyte Count 0.44 X10^3/uL (0.83-4.51); Absolute Neutrophil Count 2.2 X10^3/uL (2.0-7.7); Basophil# 0.02 X10^3/uL; Basophil% 0.7 % (0-1); Eosinophil# 0.07 X10^3/uL; Eosinophils% 2.3 % (0-5); Hematocrit 30.2 % (37-47); Hemoglobin 9.8 g/dL (12.0-15.0); Lymphocyte # 0.44 X10^3/ul (0.83-4.51); Lymphocyte % 14.5 % (19-41); Mean Corp Hgb Conc 32.5 g/dL (32-36); Mean Corpuscular Hgb 28.2 pg (27.0-32.0); Mean Platelet Vol. 12.1 fl (6.2-12.0); Monocyte# 0.35 X10^3/uL; Monocyte% 11.6 % (0-10); NRBC Flagged by Analyzer 0 % (0-5); Neutrophil # 2.15 X10^3/uL (2.7-7.7); Neutrophil % 70.9 % (47-70); POSITIVE COUNT YES; POSITIVE DIFFERENTIAL YES; Platelet Count 68 K/mm3 (150-450); RBC Distribution Width CV 15.6 % (11.6-14.6); RBC Distribution Width SD 49.9 fl (35.1-43.9); Red Blood Count 3.47 M/mm3 (4.2-5.4)
[2023-11-25 04:24] LABS: Anion Gap 5 (5-15); BUN 16 mg/dL (7-18); BUN/Creat Ratio 36.3 RATIO (10-20); Calcium,Total 8.9 mg/dL (8.5-10.1); Chloride 118 mmol/L (98-107); Creatinine, Serum 0.44 mg/dL (0.55-1.02); EST Glomerular Filtration Rate 147 mL/min (>60); Est Glom Filt Rate - Afr Amer 178 mL/min (>60); Estimated Creatinine Clearance 64.55 ml/min; Glucose 128 mg/dL (74-106); Potassium 3.4 mmol/L (3.5-5.1); Sodium Level 148 mmol/L (136-145)
[2023-11-25 05:31] LABS: Bedside Glucose 110 mg/dL (74-106)
--- NOTE | 2023-11-25 06:47 | NURSING ---
Addendum entered by Elton Khanna 11/25/23 07:05: 0700 sedation turned back on at previous rate due to pt agitation, tachycardia in 120s, excessive coughing/ventilator dyssynchrony. Original Note: [address] Vera.
[2023-11-25] MEDS: Budesonide Respules 0.5 MG/2 ML AMPUL.NEB. INHALATION ×2 (06:54→18:55)
--- NOTE | 2023-11-25 07:03 | PN.CC_ITS ---
Assessment & Plan Assessment/Plan (1) Acute airway obstruction: (2) Respiratory failure: (3) Acute UTI: (4) Sepsis: (5) Cancer of thyroid: PLAN: Plan RECOMMENDATIONS: 1. Continue assist-control mode mechanical ventilation. Wean FiO2 and PEEP for saturations greater than 90%. 2. Continue propofol and fentanyl for sedation. 3. Continue empiric antibiotics for now. 4. Continue appropriate GI prophylaxis. 5. Tentative plans for terminal extubation tomorrow, per family wishes. IMPRESSIONS: 1. 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 The patient has received all of her oncology care at [facility]. She was ultimately intubated in the emergency department as a consequence of the aforementioned. The patient will be continued on invasive mechanical ventilatory support, with a goal to wean FiO2 and PEEP to maintain saturations at or above 90%. She will be continued on empiric antimicrobial therapy as well. Following a goals of care discussion with the patient's family, they are considering terminal extubation tomorrow. 2. 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 3. Sepsis Clinical suspicion for underlying pneumonia versus urinary tract source of infection. The patient's urine culture was positive for E. coli. Plan to continue antimicrobial therapy as ordered. 4. History of thyroid cancer/questionable history of COPD/paroxysmal atrial fibrillation/obstructive sleep apnea/diabetes mellitus/obesity Complicates care, management, recovery and prognosis. Continue supportive care as noted above. TIME: 34 minutes of critical care time, independent of procedures, was spent addressing the patient's respiratory failure with hypoxemia and hypercapnia, vocal cord mass leading to airway encroachment, sepsis, review of all data and collaboration with the care team. Subjective Subjective The patient was seen and examined at the bedside this morning. Events from the last 24 hours have been reviewed. The patient is currently afebrile, hemodynamically stable and maintaining appropriate oxygen saturations on assist- control mode of mechanical ventilation with an FiO2 of 35% and PEEP of 5. Today is ventilator day #5. The patient is currently documented to be overall net +5.9 L for the hospitalization. The patient remains pancytopenic with a hemoglobin of 9.8 g/dL and platelet count of 68,000. Potassium is low at 3.4 with an elevated sodium of 148. I did have a meeting this morning with the patient's daughter, who indicated that it is her intention to most likely proceed with terminal extubation tomorrow morning and initiation of comfort care measures. Objective Data Objective Data The patient's most recent lab work, culture data and imaging studies have all been personally reviewed. 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 Urine culture was positive for E. coli. Vital Signs: Vital Signs Temp Pulse Resp BP Pulse Ox O2 Del Method O2 Flow Rate 99 F 82 18 114/55 L 93 Mechanical Ventilator 4 11/25/23 02:00 11/25/23 06:00 11/25/23 06:00 11/25/23 06:00 11/25/23 06:00 11/25/23 06:00 11/21/23 15:00 FiO2 30 11/25/23 06:00 Oxygen Flow Rate (L/min) 4 Oxygen Delivery Method Mechanical Ventilator Weight: 221 lb 5.506 oz Body Mass Index (BMI) 43.2 Intake & Output: Intake and Output for Last 24 Hours 11/23/23 11/24/23 11/25/23 23:59 23:59 23:59 Intake Total 1856.43 / 1934.53 2554.31 / 2560.31 117.38 / 117.38 Output Total 1050 / 1450 1900 / 1900 550 / 550 Balance 806.43 / 484.53 654.31 / 660.31 -432.62 / -432.62 Lab / Micro Data Attestation: I reviewed the patient's lab results. 11/25/23 03:55 11/25/23 03:55 Labs: Laboratory Results - last 24 hr 11/24/23 11:33: POC Glucose 104 11/24/23 16:45: POC Glucose 105 11/24/23 23:47: POC Glucose 139 H 11/25/23 03:55: WBC 3.0 L, RBC 3.47 L, Hgb 9.8 L, Hct 30.2 L, MCV 87.0, MCH 28.2, MCHC 32.5, RDW Std Deviation 49.9 H, RDW Coeff of Melissa 15.6 H, Plt Count 68 L, MPV 12.1 H, Immature Gran % (Auto) 0.000, Neut % (Auto) 70.9 H, Lymph % (Auto) 14.5 L, [place] % (Auto) 11.6 H, Eos % (Auto) 2.3, Baso % (Auto) 0.7, Absolute Neuts (auto) 2.2, Absolute Lymphs (auto) 0.44 L, Nucleated RBC % 0, Sodium 148 H, Potassium 3.4 L, Chloride 118 H, Carbon Dioxide 25.0, Anion Gap 5, BUN 16, Creatinine 0.44 L, Estim Creat Clear Calc 64.55, Est GFR (MDRD) Af Amer 178, Est GFR (MDRD) Non-Af 147, BUN/Creatinine Ratio 36.3 H, Glucose 128 H, Calcium 8.9 11/25/23 05:06: POC Glucose 110 H Micro: Microbiology 11/21/23 16:39 Sputum, Induced/Lukens Gram Stain - Final 11/21/23 16:39 Sputum, Induced/Lukens Respiratory Culture - Final 11/21/23 13:20 Urine, Clean Catch Urine Culture - Final Escherichia coli 11/21/23 12:00 Blood Culture (Wb) - Arm Right Blood Culture - Preliminary No growth in 48 hours. 11/21/23 11:25 Blood Culture (Wb) - Left Forearm Blood Culture - Preliminary No growth in 48 hours. 11/21/23 11:25 Mucosa - Nasopharyngeal SARS-CoV-2, Influenza & RSV (PCR) - Final ABG Data ABG results: ABG 11/21/23 11/21/23 11/21/23 13:09 16:27 18:54 Specimen Type ART ART ART Sample Site L Radial L Radial L Radial pH 7.39 7.17 L* 7.30 L Bicarbonate Actual 28.5 H 26.3 H 22.4 Total CO2 30 29 24 Base Excess 4 H -2 -4 L O2 Saturation 93 L 89 L 95 O2 % 3.0 80.0 80.0 ABG pCO2 46.8 H 72.4 H* 45.2 H ABG pO2 69 L 73 L 82 Mike Test Positive Positive Positive Respiration Rate 14 16 O2 Delivery Device Cannula Adult Vent Adult Vent Vent Mode Not entered AC AC Tidal Volume 400.0 400.0 POC PEEP 5 5 Crit Call To/Read Back Yes Blood Gas Notified Whom hoehne Blood Gas Notified Time 16:30:06 11/22/23 05:34 Specimen Type ART Sample Site L Radial pH 7.39 Bicarbonate Actual 19.0 L Total CO2 20 Base Excess -6 L O2 Saturation 93 L O2 % 40.0 ABG pCO2 31.2 L ABG pO2 65 L Mike Test N/A Respiration Rate 18 O2 Delivery Device Adult Vent Vent Mode AC Tidal Volume 450.0 POC PEEP Crit Call To/Read Back Blood Gas Notified Whom Blood Gas Notified Time Radiography Diagnostic Testing: Radiology Impression Chest X-Ray 11/24/23 12:10 IMPRESSION: Improving bilateral upper lobe infiltrates or edema. Persistent bibasilar pulmonary opacities. Electronically Signed: Caesar Knight MD at 13:30 EDT , Physical Exam Const Constitutional Narrative: Intubated, sedated and mechanically ventilated. No ventilator dyssynchrony noted. HEENT normocephalic and head/scalp atraumatic Mouth: endotracheal tube in place and OG tube in place Eyes PERRL and EOMs intact bilaterally Neck supple General: trachea midline Chest inspection of chest normal Resp normal respiratory effort Auscultation: Negative for rales, rhonchi or wheezes Cardio regular rate, regular rhythm, S1 normal heart sound and S2 normal heart sound GI normal to inspection, nondistended, normoactive bowel sounds Extremity no clubbing, cyanosis or edema Skin no rashes or lesions noted Neuro Sensorium / Orientation: sedated on vent Charges/Coding Procedures Hospitalists Procedures: 30359 Critical Care 1st Hr
--- NOTE | 2023-11-25 07:34 | PCM.PN.HOSP ---
Reason for Visit Reason for Visit: Diagnoses Sepsis, unspecified organism (11/21/23) Malignant neoplasm of thyroid gland (11/21/23) Respiratory failure, unspecified, unspecified whether with hypoxia or hypercapnia (11/21/23) Other specified respiratory disorders (11/21/23) Urinary tract infection, site not specified (11/21/23) Subjective Subjective Patient is a 73-year-old lady with history of neck mass suspected to be secondary to thyroid cancer currently undergoing radiation therapy presented with shortness of breath. An assessment of acute hypoxic respiratory failure secondary to left-sided airway obstruction made intubated and admitted to Objective Data Objective Data Vital Signs: Vital Signs Temp Pulse Resp BP Pulse Ox O2 Del Method O2 Flow Rate 99 F 101 H 18 118/103 H 93 Mechanical Ventilator 4 11/25/23 07:00 11/25/23 07:00 11/25/23 07:00 11/25/23 07:00 11/25/23 07:00 11/25/23 07:00 11/21/23 15:00 FiO2 30 11/25/23 07:00 Oxygen Flow Rate (L/min) 4 Oxygen Delivery Method Mechanical Ventilator Weight: 100.4 kg Body Mass Index (BMI) 43.2 Intake & Output: Intake and Output for Last 24 Hours 11/23/23 11/24/23 11/25/23 23:59 23:59 23:59 Intake Total 1856.43 / 1934.53 2554.31 / 2560.31 117.38 / 117.38 Output Total 1050 / 1450 1900 / 1900 550 / 550 Balance 806.43 / 484.53 654.31 / 660.31 -432.62 / -432.62 Lab / Micro Data 11/25/23 03:55 11/25/23 03:55 Labs: Laboratory Results - last 24 hr 11/24/23 11:33: POC Glucose 104 11/24/23 16:45: POC Glucose 105 11/24/23 23:47: POC Glucose 139 H 11/25/23 03:55: WBC 3.0 L, RBC 3.47 L, Hgb 9.8 L, Hct 30.2 L, MCV 87.0, MCH 28.2, MCHC 32.5, RDW Std Deviation 49.9 H, RDW Coeff of Melissa 15.6 H, Plt Count 68 L, MPV 12.1 H, Immature Gran % (Auto) 0.000, Neut % (Auto) 70.9 H, Lymph % (Auto) 14.5 L, [place] % (Auto) 11.6 H, Eos % (Auto) 2.3, Baso % (Auto) 0.7, Absolute Neuts (auto) 2.2, Absolute Lymphs (auto) 0.44 L, Nucleated RBC % 0, Sodium 148 H, Potassium 3.4 L, Chloride 118 H, Carbon Dioxide 25.0, Anion Gap 5, BUN 16, Creatinine 0.44 L, Estim Creat Clear Calc 64.55, Est GFR (MDRD) Af Amer 178, Est GFR (MDRD) Non-Af 147, BUN/Creatinine Ratio 36.3 H, Glucose 128 H, Calcium 8.9 11/25/23 05:06: POC Glucose 110 H Micro: Microbiology 11/21/23 16:39 Sputum, Induced/Lukens Gram Stain - Final 11/21/23 16:39 Sputum, Induced/Lukens Respiratory Culture - Final 11/21/23 13:20 Urine, Clean Catch Urine Culture - Final Escherichia coli 11/21/23 12:00 Blood Culture (Wb) - Arm Right Blood Culture - Preliminary No growth in 48 hours. 11/21/23 11:25 Blood Culture (Wb) - Left Forearm Blood Culture - Preliminary No growth in 48 hours. 11/21/23 11:25 Mucosa - Nasopharyngeal SARS-CoV-2, Influenza & RSV (PCR) - Final Radiography Diagnostic Testing: Radiology Impression Chest X-Ray 11/24/23 12:10 IMPRESSION: Improving bilateral upper lobe infiltrates or edema. Persistent bibasilar pulmonary opacities. Electronically Signed: Caesar Knight MD at 13:30 EDT , Physical Exam Narrative GENERAL: Sedated on the vent HEENT: Atraumatic; normocephalic EYES; Anicteric, Normal Conjunctiva NECK; supple, normal thyroid, RESPIRATORY: Diminished to auscultation CARDIOVASCULAR: Regular S1 S2, GI: soft, normoactive bowel sounds, : No Renal angle tenderness; EXTREMITIES: edema, no clubbing, MUSCULOSKELETAL: no muscle wasting NEURO: Sedated on the vent SKIN: Radiation dermatitis upper chest PSYCH; Flat affect Assessment & Plan Assessment/Plan (1) Acute airway obstruction: PLAN: Plan Patient is a 73-year-old lady with history of neck mass suspected to be secondary to thyroid cancer currently undergoing radiation therapy presented with shortness of breath. An assessment of acute hypoxic respiratory failure secondary to left-sided airway obstruction made intubated and admitted to the intensive care unit 1. Acute hypoxic respiratory failure ? Secondary to an obstructing neck mass suspected to be thyroid CA. Patient was intubated admitted to the intensive care unit. Plan was for patient to be transferred to the [facility]. Patient is family i.e. her daughter apparently wants to have a discussion with patient's oncologist prior to making any decision regarding continuous care versus palliative care. 2. Suspected sepsis ? UTI versus pneumonia patient manage per protocol 3. Acute cystitis with E. coli ? Sensitivities reviewed. Patient is on ceftriaxone 4. Suspected postobstructive pneumonia ? Patient remains on ceftriaxone 5. Diabetes mellitus type 2 ? Patient is managed at home on long-acting insulin held, placed on Accu-Cheks with sliding scale coverage for now 6. GERD ? Patient is on PPI 7. Paroxysmal atrial fibrillation ? Rate controlled on systemic anticoagulation with rivaroxaban. Held on admission 8. History of previous VTE ? Patient is on rivaroxaban, currently being held given her low platelet count 9. Class III obesity with BMI of 43 ? Complicating care 10. COPD Bronchodilator treatment as needed 11. Depression with anxiety ?Patient is on SNRI at home 12. Hypertension - Blood pressure remains controlled 13. Restless leg syndrome ? Per history 14. Obstructive sleep apnea ? Per history 15. Anemia - Secondary to chronic disorder monitoring H&H and transfuse if patient becomes symptomatic or hemoglobin falls below 7 16. Thrombocytopenia ? Monitoring with daily CBC with differential 17 VTE prophylaxis: SCDs. Time spent in the patient's overall evaluation,decision-making process, review of diagnostic data, adjustment of management, discussion with other providers, nursing nursing and ancillary staff involved in patient's care documentation, 54 Minutes Charges/Coding Visit Charges Inpatient E&M: 97448 [facility] Hosp L3
[2023-11-25] MEDS: 0.9% Saline Lock 10 ML Syringe IV (08:44)
--- NOTE | 2023-11-25 09:59 | CASEMGMT ---
Social Work SW and Dr. Vera spoke w/daughter in room regarding goals of care. Daughter states wants to hear back from an oncologist in [place] where pt had been referred, already called and left a message. She states however that she does think the plan will be to extubate pt tomorrow and make pt comfortable. She states there is some family that will want to come see pt first. Dr. Vera explained if pt does not pass once extubated, we would call hospice. Daughter states understanding. Support offered to daughter, SW will continue to follow. ZENA Keenan
[2023-11-25] MEDS: Docusate Sodium 100 MG/10 ML UDC GT (10:06)
[2023-11-25] MEDS: Chlorhexidine 15 ML PO ×2 (10:06→22:47)
[2023-11-25] MEDS: Lansoprazole 15 MG Capsule.DR 30 MG GT (10:06)
[2023-11-25] MEDS: fentaNYL drip 100 ML 7.5 MCG CONT INF ×2 (10:07→23:28)
[2023-11-25] MEDS: Acetaminophen 650 MG/20 ML UDC GT ×2 (10:14→16:20)
[2023-11-25 11:45] LABS: Bedside Glucose 120 mg/dL (74-106)
--- NOTE | 2023-11-25 14:33 | CHAPLAIN ---
Type of Pastoral Visit ___ Initial Visit _x__ Follow-up Visit ___ On-call Visit ___ General Patient Visit ___ Spiritual Assessment ___ Family Conference ___ Bereavement ___ Rapid Response ___ Code Blue ___ Other (describe below) Pastoral Care Referral From ___ Patient _x__ Family ___ Nurse ___ Physician ___ Mechanical Systems Designer ___ Afternoon Nanny ___ Other (describe below) Sacrament/Intervention _x__ Active listening ___ Anointing ___ Lutheran ___ Bereavement ___ Communion ___ Trini exploration ___ _x__ Life review _x__ Prayer ___ Reconciliation ___ Sacrament of Sick _x__ Supportive presence ___ Wedding ___ Other (describe below) Pastoral Comments patient remains intubated and unable to respond; daughter and a cousin are in the room and are offered support by this commercial title examiner; patient has been seen by this commercial title examiner in numerous times at [facility] and this is communicated to the family which finds comfort in that; family members, especially the daughter review the decision to extubate tomorrow and the recent health status of the pt; family believes there is agreement for the decision and yet prayers for strength, unity, and care is asked; review of family concerns and needs; offer of ongoing presence and support; later the cousin gives more information on the family dynamics but is hopeful that family will be okay; again offer of support made and spoken to RN as well
[2023-11-25] MEDS: Propofol 10MG/Ml 1,000 MG/100 ML Bottle 12 MG CONT INF ×2 (15:21→23:41)
[2023-11-25] MEDS: Menthol/Lanolin/Calamine/Znox 113 GM Tube 1 APPLIC TOPICAL ×2 (15:59→22:47)
[2023-11-25 18:23] LABS: Bedside Glucose 117 mg/dL (74-106)
[2023-11-25] MEDS: Ceftriaxone 1 GM/50 ML BAG IV (21:21)
[2023-11-25] MEDS: Pramipexole Di-HCl 0.25 MG Tablet GT (22:46)
[2023-11-26] VITALS (20 sets, daily range): BP systolic 121–196; BP diastolic 47–100; PULSE 84–172; RESP 18–40; TEMP 37.3–37.7; O2SAT 55–100; BMI 42.4
[2023-11-26 00:56] LABS: Bedside Glucose 105 mg/dL (74-106)
[2023-11-26] MEDS: Propofol 10MG/Ml 1,000 MG/100 ML Bottle 12 MG CONT INF (03:30)
[2023-11-26] MEDS: Menthol/Lanolin/Calamine/Znox 113 GM Tube 1 APPLIC TOPICAL (06:01)
[2023-11-26 06:30] LABS: Bedside Glucose 94 mg/dL (74-106)
--- NOTE | 2023-11-26 07:06 | PCM.PN.INT ---
Assessment & Plan Assessment/Plan (1) Acute airway obstruction: (2) Respiratory failure: (3) Acute UTI: (4) Sepsis: (5) Cancer of thyroid: PLAN: Plan RECOMMENDATIONS: 1. Plan for terminal extubation this morning, per family request. CODE STATUS to be updated to DNR comfort care. 2. If the patient does well following extubation, will consider hospice care referral tomorrow. IMPRESSIONS: 1. 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 The patient has received all of her oncology care at [facility]. She was ultimately intubated in the emergency department as a consequence of the aforementioned. The patient will be continued on invasive mechanical ventilatory support, with a goal to wean FiO2 and PEEP to maintain saturations at or above 90%. She will be continued on empiric antimicrobial therapy as well. Following a goals of care discussion with the patient's family, there are plans to proceed with terminal extubation this morning and initiation of comfort care measures. 2. 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 3. Sepsis Clinical suspicion for underlying pneumonia versus urinary tract source of infection. The patient's urine culture was positive for E. coli. Plan to continue antimicrobial therapy as ordered. 4. History of thyroid cancer/questionable history of COPD/paroxysmal atrial fibrillation/obstructive sleep apnea/diabetes mellitus/obesity Complicates care, management, recovery and prognosis. Continue supportive care as noted above. This note was generated with [employer] dictation software. It may contain incorrect words, spelling, and punctuation that were not noted in checking the note before signing. Subjective Subjective The patient was seen and examined at the bedside this morning. Events from the last 24 hours have been reviewed. The patient is currently afebrile, hemodynamically stable and maintaining appropriate oxygen saturations on assist-control mode mechanical ventilation with an FiO2 requirement of 30% and PEEP of 5. There are tentative plans for terminal extubation with initiation of comfort care measures this morning, following discussion with the patient's family yesterday. Objective Data Objective Data The patient's most recent lab work, culture data and imaging studies have all been personally reviewed. 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 Urine culture was positive for E. coli. Vital Signs: Vital Signs Temp Pulse Resp BP Pulse Ox O2 Del Method O2 Flow Rate 99.5 F H 97 18 135/56 H 93 Mechanical Ventilator 2 11/26/23 06:00 11/26/23 07:00 11/26/23 07:00 11/26/23 07:00 11/26/23 07:00 11/26/23 07:00 11/26/23 06:00 FiO2 30 11/26/23 07:00 Oxygen Flow Rate (L/min) 2 Oxygen Delivery Method Mechanical Ventilator Weight: 217 lb 2.485 oz Body Mass Index (BMI) 42.4 Intake & Output: Intake and Output for Last 24 Hours 11/24/23 11/25/23 11/26/23 23:59 23:59 23:59 Intake Total 2554.31 / 2560.31 660.28 / 698.08 204.3 / 204.3 Output Total 1900 / 1900 1450 / 1700 650 / 650 Balance 654.31 / 660.31 -789.72 / -1001.92 -445.7 / -445.7 Lab / Micro Data Attestation: I reviewed the patient's lab results. 11/25/23 03:55 11/25/23 03:55 Labs: Laboratory Results - last 24 hr 11/25/23 11:28: POC Glucose 120 H 11/25/23 18:04: POC Glucose 117 H 11/26/23 00:38: POC Glucose 105 11/26/23 06:07: POC Glucose 94 Micro: Microbiology 11/21/23 16:39 Sputum, Induced/Lukens Gram Stain - Final 11/21/23 16:39 Sputum, Induced/Lukens Respiratory Culture - Final 11/21/23 13:20 Urine, Clean Catch Urine Culture - Final Escherichia coli 11/21/23 12:00 Blood Culture (Wb) - Arm Right Blood Culture - Preliminary No growth in 48 hours. 11/21/23 11:25 Blood Culture (Wb) - Left Forearm Blood Culture - Preliminary No growth in 48 hours. 11/21/23 11:25 Mucosa - Nasopharyngeal SARS-CoV-2, Influenza & RSV (PCR) - Final ABG Data ABG results: ABG 11/21/23 11/21/23 11/21/23 13:09 16:27 18:54 Specimen Type ART ART ART Sample Site L Radial L Radial L Radial pH 7.39 7.17 L* 7.30 L Bicarbonate Actual 28.5 H 26.3 H 22.4 Total CO2 30 29 24 Base Excess 4 H -2 -4 L O2 Saturation 93 L 89 L 95 O2 % 3.0 80.0 80.0 ABG pCO2 46.8 H 72.4 H* 45.2 H ABG pO2 69 L 73 L 82 Mike Test Positive Positive Positive Respiration Rate 14 16 O2 Delivery Device Cannula Adult Vent Adult Vent Vent Mode Not entered AC AC Tidal Volume 400.0 400.0 POC PEEP 5 5 Crit Call To/Read Back Yes Blood Gas Notified Whom [facility] Blood Gas Notified Time 16:30:06 11/22/23 05:34 Specimen Type ART Sample Site L Radial pH 7.39 Bicarbonate Actual 19.0 L Total CO2 20 Base Excess -6 L O2 Saturation 93 L O2 % 40.0 ABG pCO2 31.2 L ABG pO2 65 L Mike Test N/A Respiration Rate 18 O2 Delivery Device Adult Vent Vent Mode AC Tidal Volume 450.0 POC PEEP Crit Call To/Read Back Blood Gas Notified Whom Blood Gas Notified Time Radiography Diagnostic Testing: Radiology Impression Chest X-Ray 11/24/23 12:10 IMPRESSION: Improving bilateral upper lobe infiltrates or edema. Persistent bibasilar pulmonary opacities. Electronically Signed: Caesar Knight MD at 13:30 EDT Reading Location ID and State: [address] [place] [address] Tel , Service support , Physical Exam Const Constitutional Narrative: Intubated, sedated and mechanically ventilated. No ventilator dyssynchrony noted. HEENT normocephalic and head/scalp atraumatic Mouth: endotracheal tube in place and OG tube in place Eyes PERRL and EOMs intact bilaterally Neck supple General: trachea midline Chest inspection of chest normal Resp normal respiratory effort Auscultation: Negative for rales, rhonchi or wheezes Cardio regular rate, regular rhythm, S1 normal heart sound and S2 normal heart sound GI normal to inspection, nondistended, normoactive bowel sounds Extremity no clubbing, cyanosis or edema Skin no rashes or lesions noted Neuro Sensorium / Orientation: sedated on vent Charges/Coding Visit Charges Inpatient E&M: 43966 Subs Hosp L3
--- NOTE | 2023-11-26 07:13 | PCM.PN.HOSP ---
Reason for Visit Reason for Visit: Diagnoses Sepsis, unspecified organism (11/21/23) Malignant neoplasm of thyroid gland (11/21/23) Respiratory failure, unspecified, unspecified whether with hypoxia or hypercapnia (11/21/23) Other specified respiratory disorders (11/21/23) Urinary tract infection, site not specified (11/21/23) Subjective Subjective Plan is for patient to undergo terminal extubation and subsequent initiation of comfort measures per Discussions with family the day prior Objective Data Objective Data Vital Signs: Vital Signs Temp Pulse Resp BP Pulse Ox O2 Del Method O2 Flow Rate 99.5 F H 97 18 135/56 H 93 Mechanical Ventilator 2 11/26/23 06:00 11/26/23 07:00 11/26/23 07:00 11/26/23 07:00 11/26/23 07:00 11/26/23 07:00 11/26/23 06:00 FiO2 30 11/26/23 07:00 Oxygen Flow Rate (L/min) 2 Oxygen Delivery Method Mechanical Ventilator Weight: 98.5 kg Body Mass Index (BMI) 42.4 Intake & Output: Intake and Output for Last 24 Hours 11/24/23 11/25/23 11/26/23 23:59 23:59 23:59 Intake Total 2554.31 / 2560.31 660.28 / 698.08 204.3 / 204.3 Output Total 1900 / 1900 1450 / 1700 650 / 650 Balance 654.31 / 660.31 -789.72 / -1001.92 -445.7 / -445.7 Lab / Micro Data 11/25/23 03:55 11/25/23 03:55 Labs: Laboratory Results - last 24 hr 11/25/23 11:28: POC Glucose 120 H 11/25/23 18:04: POC Glucose 117 H 11/26/23 00:38: POC Glucose 105 11/26/23 06:07: POC Glucose 94 Micro: Microbiology 11/21/23 16:39 Sputum, Induced/Lukens Gram Stain - Final 11/21/23 16:39 Sputum, Induced/Lukens Respiratory Culture - Final 11/21/23 13:20 Urine, Clean Catch Urine Culture - Final Escherichia coli 11/21/23 12:00 Blood Culture (Wb) - Arm Right Blood Culture - Preliminary No growth in 48 hours. 11/21/23 11:25 Blood Culture (Wb) - Left Forearm Blood Culture - Preliminary No growth in 48 hours. 11/21/23 11:25 Mucosa - Nasopharyngeal SARS-CoV-2, Influenza & RSV (PCR) - Final Physical Exam Narrative GENERAL: Sedated on the vent HEENT: Atraumatic; normocephalic EYES; Anicteric, Normal Conjunctiva NECK; supple, normal thyroid, RESPIRATORY: Diminished to auscultation CARDIOVASCULAR: Regular S1 S2, GI: soft, normoactive bowel sounds, : No Renal angle tenderness; EXTREMITIES: edema, no clubbing, MUSCULOSKELETAL: no muscle wasting NEURO: Sedated on the vent SKIN: Radiation dermatitis upper chest PSYCH; Flat affect Assessment & Plan Assessment/Plan (1) Acute airway obstruction: PLAN: Plan Patient is a 73-year-old lady with history of neck mass suspected to be secondary to thyroid cancer currently undergoing radiation therapy presented with shortness of breath. An assessment of acute hypoxic respiratory failure secondary to left-sided airway obstruction made intubated and admitted to the intensive care unit 1. Acute hypoxic respiratory failure ? Secondary to an obstructing neck mass suspected to be thyroid CA. Patient was intubated admitted to the intensive care unit. Plan was for patient to be transferred to the [facility]. Patient is family i.e. her daughter apparently wants to have a discussion with patient's oncologist prior to making any decision regarding continuous care versus palliative care. 11/26/2023 plan is for patient to undergo terminal extubation with subsequent initiation of palliative care symptom management 2. Suspected sepsis ? UTI versus pneumonia patient manage per protocol 3. Acute cystitis with E. coli ? Sensitivities reviewed. Patient is on ceftriaxone 4. Suspected postobstructive pneumonia ? Patient remains on ceftriaxone 5. Diabetes mellitus type 2 ? Patient is managed at home on long-acting insulin held, placed on Accu-Cheks with sliding scale coverage for now 6. GERD ? Patient is on PPI 7. Paroxysmal atrial fibrillation ? Rate controlled on systemic anticoagulation with rivaroxaban. Held on admission 8. History of previous VTE ? Patient is on rivaroxaban, currently being held given her low platelet count 9. Class III obesity with BMI of 43 ? Complicating care 10. COPD Bronchodilator treatment as needed 11. Depression with anxiety ?Patient is on SNRI at home 12. Hypertension - Blood pressure remains controlled 13. Restless leg syndrome ? Per history 14. Obstructive sleep apnea ? Per history 15. Anemia - Secondary to chronic disorder monitoring H&H and transfuse if patient becomes symptomatic or hemoglobin falls below 7 16. Thrombocytopenia ? Monitoring with daily CBC with differential 17 VTE prophylaxis: SCDs. Time spent in the patient's overall evaluation,decision-making process, review of diagnostic data, adjustment of management, discussion with other providers, nursing nursing and ancillary staff involved in patient's care documentation, 35 Minutes Charges/Coding Visit Charges Inpatient E&M: 14973 Subs Hosp L2
[2023-11-26] MEDS: Budesonide Respules 0.5 MG/2 ML AMPUL.NEB. INHALATION (07:19)
[2023-11-26] MEDS: Lansoprazole 15 MG Capsule.DR 30 MG GT (07:46)
[2023-11-26] MEDS: Ferrous Sulfate 300 MG/5 ML UDC 325 MG GT (07:46)
[2023-11-26] MEDS: Chlorhexidine 15 ML PO (07:47)
[2023-11-26] MEDS: Multivitamins,Therapeutic Tablet 1 TABLET GT (07:47)
[2023-11-26] MEDS: Morphine 2 MG/ML Syringe IV ×3 (10:05→12:23)
[2023-11-26] MEDS: LORazepam 2 MG/ML Syringe 1 MG IV ×3 (10:05→13:02)
--- NOTE | 2023-11-26 10:09 | CASEMGMT ---
Social Work SW spoke w/family this morning in waiting room, offered support. SW remains available for support to family, will make hospice referral if needed. ZENA Keenan
--- NOTE | 2023-11-26 10:15 | NURSING ---
Patient extubated on comfort measures. Patients daughter, son-in-law and friend outside of room at time of extubation and brought back in immediately after. Patient was medicated with ativan and morphine as ordered prior to removing ETT. Patients respirations with coarse sounds in the upper airway, lung sound diminished. HR up to 160's, RR 30's, SPO2 60's, and BP 110/70's immediately after extubating. Patient does not appear to be in distress, will continue to monitor.
[2023-11-26] MEDS: 0.9% Saline Lock 10 ML Syringe IV (12:23)
--- NOTE | 2023-11-26 14:10 | NURSING ---
Went to reassess patient after respirations dropped to 0 on diagnostic cardiac sonographer. patient was found to be without pulse on assessment. Family present at bedside. This RN auscultated patients chest and heart sounds were absent. Absence of heartbeat verified by Kim Ovalle RN. Dr Guerrero notified that patient .
[2023-11-26 15:12] LABS: Pathologist Review Reviewed
--- NOTE | 2023-11-26 15:54 | CHAPLAIN ---
Type of Pastoral Visit ___ Initial Visit _x__ Follow-up Visit ___ On-call Visit ___ General Patient Visit ___ Spiritual Assessment _x__ Family Conference _x__ Bereavement ___ Rapid Response ___ Code Blue ___ Other (describe below) Pastoral Care Referral From ___ Patient _x__ Family ___ Nurse ___ Physician ___ Chip Frier ___ Substance Abuse Therapist ___ Other (describe below) Sacrament/Intervention _x__ Active listening ___ Anointing ___ Jewish _x__ Bereavement ___ Communion ___ Trini exploration ___ _x__ Life review _x__ Prayer ___ Reconciliation ___ Sacrament of Sick _x__ Supportive presence ___ Wedding ___ Other (describe below) Pastoral Comments patient was extubated this morning and continued to breathe on her own with some labor; met with family members in the room and waiting area for support, listening to thoughts about pt, and to give a prayer; returned to room to give a comforting blanket as a gift and explained the purpose which led to more interaction and appreciation from the family; made another trip to the room in the afternoon and patient had and family had left
--- NOTE | 2023-11-27 07:14 | EXP.PCM_ITS ---
Preliminary Cause of Preliminary Cause of Preliminary Cause of : Acute hypoxic respiratory failure ? Secondary to an obstructing neck mass suspected to be thyroid CA Date of Admission: 11/21/23 Date of : 11/26/23 Principle Diagnosis Problem List: Active and Suspected Problems (Updated 11/21/23 @ 15:[address] Malachi Marie, DO) Acute airway obstruction (Acute) Respiratory failure (Acute) Acute UTI (Acute) Sepsis (Acute) Cancer of thyroid (Acute) Diabetes (Acute) Hospital Course Patient is a 73-year-old lady with history of neck mass suspected to be secondary to thyroid cancer who was undergoing radiation therapy presented with shortness of breath. An assessment of acute hypoxic respiratory failure secondary to left-sided airway obstruction made intubated and admitted to the intensive care unit. Plan was for patient to have been transferred to [facility], however Family elected to change patient CODE STATUS to DNR CC. Patient was terminally extubated started on palliative care/symptom management. Patient wants found without heart tones and spontaneous breathing on 11/26/2023 at 1409. She was pronounced Visit Charges Inpatient E&M: 34364 Disch Hosp
== END 2023-11-26 14:09 | DRG 870 ==
LOC: ED 19:50 → ICU 11-22 01:48
PROVIDERS: Internal Medicine; Internal Medicine Critical Care Medicine; Admitting Provider Hospitalist; Emergency Provider Emergency Medicine; PCP Internal Medicine; Visit Provider Internal Medicine
DX: A41.51 Sepsis due to Escherichia coli [E. coli] (principal); J96.01 Acute respiratory failure with hypoxia; J18.9 Pneumonia, unspecified organism; J96.02 Acute respiratory failure with hypercapnia; D61.818 Other pancytopenia; I13.0 Hypertensive heart and chronic kidney disease with heart failure and stage 1 through stage 4 chronic kidney disease, or unspecified chronic kidney disease; J44.0 Chronic obstructive pulmonary disease with (acute) lower respiratory infection; Z68.41 Body mass index [BMI] 40.0-44.9, adult; E87.0 Hyperosmolality and hypernatremia; N30.00 Acute cystitis without hematuria; E11.22 Type 2 diabetes mellitus with diabetic chronic kidney disease; N18.32 Chronic kidney disease, stage 3b; C73 Malignant neoplasm of thyroid gland; I48.0 Paroxysmal atrial fibrillation; I50.9 Heart failure, unspecified; E66.01 Morbid (severe) obesity due to excess calories; Z79.4 Long term (current) use of insulin; E11.42 Type 2 diabetes mellitus with diabetic polyneuropathy; G25.81 Restless legs syndrome; F32.A Depression, unspecified; E78.00 Pure hypercholesterolemia, unspecified; F41.9 Anxiety disorder, unspecified; G47.33 Obstructive sleep apnea (adult) (pediatric); K21.9 Gastro-esophageal reflux disease without esophagitis; J98.8 Other specified respiratory disorders; N32.81 Overactive bladder; R53.81 Other malaise; G89.29 Other chronic pain; Z11.52 Encounter for screening for COVID-19; Z66 Do not resuscitate; Z99.81 Dependence on supplemental oxygen; Z79.01 Long term (current) use of anticoagulants; Z79.84 Long term (current) use of oral hypoglycemic drugs; Z79.899 Other long term (current) drug therapy
CPT/HCPCS: 31500; 31720; 36415; 36600; 51702; 70450; 70491; 71045; 80048; 80053; 80076; 80202; 80307; 81001; 82550; 82803; 82962; 83605; 84478; 85025; 85610; 85730; 87040; 87070; 87077; 87086; 87088; 87186; 87205; 87631; 93005; 94002; 94003; 94640; 99252; 99285; J2185; J7030; J7040; J7050; Q9967; A4216; G0463; J0330